=== PATIENT | male | born 1935 | race Caucasian/White ===

== ENCOUNTER 2017-04-21 18:20 | Emergency (ER) | payer MEDICARE, OTHER ==
[~2017-04-21] VITALS: Ht 167.6 cm; Wt 105.7 kg
[~2017-04-21 18:20] MED LIST: ADULT TUSS100 MG/5 M PO; AMIODARONE HCL400 MG PO; ANTIVERT25 MG PO; B-12500 MCG PO; BACTRIM DS TAB1 EACH PO; CEPHALEXIN500 MG PO; COUMADIN2 MG PO; DESONIDE15 GM TOP; DOCUSATE SODIU250 MG PO; DONEPEZIL HCL10 MG PO; DOXYCYCLINE HY100 MG PO; EUCERIN CREME120 GM TOP; FENOFIBRATE145 MG PO; FEOSOL325 MG PO; FLOMAX0.4 MG PO; FUROSEMIDE40 MG PO; HYDROCODON-ACE1 EA10 PO; KLOR-CON M2020 MEQ PO; LEVAQUIN750 MG PO; LEVOTHYROXINE25 MCG PO; LIPITOR10 MG PO; LISINOPRIL5 MG PO; MAG-OXIDE400 MG PO; METOLAZONE2.5 MG PO; METOPROLOL SUCC25 MG PO; METOPROLOL SUCC50 MG PO; NITROSTAT0.4 MG SL; NORCO 5-325 TA1 EACH PO; NYSTATIN-TRIAMC15 GM; NYSTATIN15 GM TOP; NYSTOP60 GM TOP; PROAIR HFA8.5 GM INH; PROVENTIL HFA6.7 GM INH; REFRESH OPTIVE15 ML OPTH; REFRESH TEARS15 ML OU; STOOL SOFTENER250 MG PO; SYMBICORT 16010.2 GM INH; TERBINAFINE15 GM TOP; TESSALON PERLE100 MG PO; TOPROL XL25 MG PO; TOPROL XL50 MG PO; TORSEMIDE20 MG PO; TRAZODONE HCL50 MG PO; [UNRECOGNIZED DRUG - CODE] TOP; [UNRECOGNIZED DRUG - OTHER] MISC
[2017-04-21] MEDS ORDERED: LEVAQUIN500 MG PO (21:48)
== END 2017-04-21 22:03 | disposition home or self-care (01) ==
LOC: ED 18:20
DX: L03.116 Cellulitis of left lower limb (principal); H91.90 Unspecified hearing loss, unspecified ear; I11.0 Hypertensive heart disease with heart failure; I50.9 Heart failure, unspecified; Z95.2 Presence of prosthetic heart valve; Z79.899 Other long term (current) drug therapy; Z79.01 Long term (current) use of anticoagulants
CPT/HCPCS: 80053; 81001; 83605; 85025; 85610; 87040; 99283

== ENCOUNTER 2017-04-25 10:27 | Emergency (ER) | payer MEDICARE, OTHER ==
[~2017-04-25] VITALS: Ht 167.6 cm; Wt 102.1 kg
[~2017-04-25 10:27] MED LIST changes: +LEVAQUIN500 MG PO
--- NOTE | 2017-04-25 18:37 | EKG ---
[facility] [address] [place] [address] Signed Sinus tachycardia Left axis deviation Nonspecific intraventricular block Cannot rule out Anterior infarct , age undetermined T wave abnormality, consider lateral ischemia Abnormal ECG When compared with ECG of 10-APR-2017 16:38, premature ventricular complexes are no longer present Vent. rate has increased BY 62 BPM Confirmed by ZEE WALTERS MD ([id number]) on 04/25/2017 6:36:53 PM Electronically Signed By: ZEE WALTERS MD 04/25/17 1837 PATIENT NAME: JACKLYN PATEL Electrocardiogram DATE OF : 31 PHYSICIAN: ZEE WALTERS MD REPORT #: [id number] REPORT IS CONFIDENTIAL AND NOT TO BE RELEASED WITHOUT AUTHORIZATION
--- NOTE | 2017-04-25 18:37 | EKG ---
[facility] [address] [facility] [place] [address] Signed Atrial fibrillation Nonspecific intraventricular block Cannot rule out Anterior infarct (cited on or before 25-APR-2017) T wave abnormality, consider lateral ischemia Abnormal ECG When compared with ECG of 25-APR-2017 10:42, (Unconfirmed) Atrial fibrillation has replaced Sinus rhythm Confirmed by ZEE WALTERS MD ([id number]) on 04/25/2017 6:37:16 PM Electronically Signed By: ZEE WALTERS MD 04/25/17 1837 PATIENT NAME: JACKLYN PATEL Electrocardiogram DATE OF : [birth year] PHYSICIAN: ZEE WALTERS MD REPORT #: [id number] REPORT IS CONFIDENTIAL AND NOT TO BE RELEASED WITHOUT AUTHORIZATION
== END 2017-04-25 14:30 | disposition home or self-care (01) ==
LOC: ED 10:27
DX: I48.91 Unspecified atrial fibrillation (principal); L03.90 Cellulitis, unspecified; E78.5 Hyperlipidemia, unspecified; I11.0 Hypertensive heart disease with heart failure; I50.9 Heart failure, unspecified; Z95.2 Presence of prosthetic heart valve; Z79.899 Other long term (current) drug therapy; Z79.01 Long term (current) use of anticoagulants
CPT/HCPCS: 71010; 80053; 84484; 85025; 85610; 93005; 93010; 99284

== ENCOUNTER 2018-02-11 14:06 | Emergency (ER) | payer MEDICARE, OTHER ==
[~2018-02-11] VITALS: Ht 167.6 cm; Wt 102.1 kg
--- OUTSIDE RECORDS SUMMARY | ~2018-02-11 | XMS | Clinical Summary ---
Demographics + + + | Address | [address] | | | [place] [address] | + + + | Home Phone | | + + + | Preferred Language | Unknown | + + + | Marital Status | | + + + | Sabianism Affiliation | Unknown | + + + [...] Phone | + + +---------+ + | EliCassandra | ECON | NA | | | | | NA, | | + + +---------+ + | Rl Patel | ECON | Unknown | | + + +---------+ + | Chris Patel | ECON | Unknown | | + + +---------+ + | Jacklyn Patel Jr | ECON | Unknown | | + + +---------+ + Care Team Providers + +------+ + | Care Bpm Analyst Name | Role | Phone | + [...] | | | + + +--------+---------+------+------+-------+ | atorvaSTATin | Take 10 mg by mouth | | | | | Activ | | (LIPITOR) 10 mg | nightly. | | | | | e | [...] + + +--------+---------+------+------+-------+ | warfarin | Take 4 mg by mouth. | | | | | Activ | | (COUMADIN) 4 MG | In the evening on | | | | | e | | tablet | odd days | | | | | | + [...] | | | + + +--------+---------+------+------+-------+ | potassium chloride | Take 10 mEq by mouth | | | | | Activ | | (KLOR-CON) 10 MEQ | Daily. | | | | | e | | ER tablet | | | [...] tablet by | 60 | 2 | 04/21 | | Activ | | 40 mg tablet | mouth 2 times daily. | tablet | | 05/09 | | e | | | | | | 17 | | | + + +--------+---------+------+------+-------+ | amiodarone | Take 1 tablet by | 30 | 1 | 08/0 | | Activ | | (PACERONE) 200 mg | mouth Daily. | tablet | | /20 | | e | | tablet | | | | 17 | | | + + +--------+---------+------+------+-------+ | metoprolol | Take 1 tablet by | 30 | 1 | 07/2 | | Activ | | succinate | mouth Daily. | tablet | | 05/09 | | e | | (TOPROL-XL) 25 mg 24 | | | | 17 | | | | hr tablet | [...] + + +--------+---------+------+------+-------+ | warfarin | Take 6 mg by [...] | + + +--------+---------+------+------+-------+ | bisacodyl | Take 5 mg by mouth | | | | | Activ | | (DULCOLAX) 5 mg EC | as needed for | | | | | e | | tablet | Constipation. | | | | | | + + +--------+---------+------+------+-------+ | bisacodyl | Place 10 mg rectally | | | | | Activ | | (DULCOLAX) 10 mg | as needed for | | | | | e | | suppository | Constipation. | | | | | | + + +--------+---------+------+------+-------+ Active Problems + + + | Problem | Noted Date | + + + | Pacemaker reprogramming/check | 05/14/2017 | + + + | Pacemaker Dual Chamber, MRI compatible, 05/14/17 [facility] Bird | 05/14/2017 | + + + + + | Overview: Formatting of this note may be different from the | | original. MODEL NAME MODEL# SERIAL# DATE IMPLANTED GENERATOR St | | Rupert Assurity MRI [id number] 05/14/[address] [facility] Tendril | | MRI [id number] 05/14/[address] Rupert Tendril MRI | | [id number] 05/14/17 Indication: Tachycardia-Bradycardia | | Syndrome. | [...] + + | Acute renal failure (ARF) ([facility]) | 04/01/2015 | + + + | Anemia | 04/01/2015 | + + + | H/O aortic valve replacement | | + + + + + | Overview: [facility] LORA goal is 2-3 | + + + +---+ | Essential hypertension | | + +---+ | Liver cirrhosis (HCC) | | + +---+ | Dementia | | + +---+ | Alcoholic cirrhosis (HCC) | | + +---+ + + | Overview: CT scan 2003 at [facility] | + + + +---+ | Coronary artery disease involving [place] coronary artery of | | | [place] heart without angina pectoris | | + +---+ + + | Overview: [facility] 11/14/2004 shows preserved left ventricular | | [...] + + | Overview: Severe on Echo 2013 | + + + +---+ | Chronic diastolic congestive heart failure (HCC) | | + +---+ + + | Overview: Echo 2014 EF 68, ascites, pulm HTN | + + Resolved Problems + + + + | Problem | Noted | Resolved | | | Date | Date | + + + + | Atrial fibrillation with RVR (HCC) | 03/19/20 | | | | 16 | 7 | + + + + | Acute on chronic diastolic (congestive) heart failure | 03/16/20 | | | | 16 | 7 | + + + + Immunizations + + + + | Name [...] | | + + +------+ + + +------+--------+ + | Relation | Name | Status | Comments | + +------+--------+ + | Father | | | | + +------+--------+ + Social History + +-------+ +--------+------+ | [...] + | Blood Pressure | 100/50 | 09/19/20171152 PST | + + + + | Pulse | 62 | 09/19/20171152 PST | + + + + | Temperature | 36.3 C (97.3 F) | 05/16/2017 1109 PDT | + + + + | Respiratory Rate | 11 | 09/19/20171152 PST | + + + + | Oxygen Saturation | 99% | 06/19/2017 1021 PDT | + + + + | Inhaled Oxygen | - | - | | Concentration | | | + + + + | Weight | 84.5 kg (186 lb 4.6 | 09/19/20171152 PST | | | oz) | | + + + + | Height | 167.6 cm (5' 6") | 09/19/20171152 PST | + + + + | Body Mass Index | 30.07 | 09/19/20171152 PST | + + + + Plan of Treatment +--------+---------+ + + + | Date | Type | Specialty | Care Team | Description | +--------+---------+ + + + | 03/19/ | Office | | Emely Gabriel, | | | 2017 | Visit | | AMANDA Quinter[address] [place] | | | | | | [place] | | | | | | [id number] | | | | | | | | +--------+---------+ + + + + + + + [...] + | Vaccine: Influenza | Completed | 07/20/2017 | | + + + + [...] | [facility] | | 06/20/ | [id number] | | [id number]: Qty: 1 | | Heart | MEDICAL - | | 2016 | 0M/52 | | on 05/14/2017 by Marge, | | | CHRISTOPHER | | | /[id number] | | MD [place] | | | | | | 8427 / | + +------+-------+ +--------+--------+--------+ | Lead Tendril Mri 46cm - | | N/A: | [facility] | | 07/20/ | [id number] | | [id number]: Qty: 1 | | Heart | MEDICAL - | | 2016 | 0M/46 | | on 05/14/2017 by Marge, | | | CHRISTOPHER | | | /[id number] | | MD [place] | | | | | | 3446 / | + +------+-------+ +--------+--------+--------+ | Pacer Assurity Mri Dr Rf - | | N/A: | [facility] | | 08/20/ | [id number] | | [id number]: Qty: 1 on | | Heart | MEDICAL - | | 2018 | | | 05/14/2017 by Marge, | | | CHRISTOPHER | | | /[id number] | | MD [place] | | | | | | 01 / | + +------+-------+ +--------+--------+--------+ Results Not on filefrom Last 3 Months Insurance + +--------+ +--------+ +---------+ | Payer | Benefi | Subscriber | Type | Phone | Address | | | t Plan | ID | | | | | | / | | | | | | | Group | | | | | + +--------+ +--------+ +---------+ | VETERANS ADMIN | VETERA | xxxxxxxxx | Indemn | | | | | NS | | ity | | | | | ADMIN | | | | | | | [place] | | | | | | | [place] | | | | | + +--------+ +--------+ +---------+ | MEDICARE | MEDICA | xxxxxxxxxx | Medica | [phone] | | | RE | | re | [phone] | | | | PART A | | | | | | | AND B | | | | | + +--------+ +--------+ +---------+ | MEDICAID [place] | MEDICA | xxxxxxxx | Medica | [phone] | | | [place] | | id | [phone] | | | | PLUS | | | | | + +--------+ [...] Self | [birth year] | Home: | [address] | | | al/Fam | | 1935 | [phone] | [address] | | | [place] | | | [phone] | [place] [address] | + +--------+ +--------+ + + | JACKLYN PATEL | Specia | Self | [birth year] | Home: | [address] | | | l | | 1935 | [phone] | [address] | | | [place] | | | [address] | [place] [address] | | | es | | | | | + +--------+ +--------+ + +
--- OUTSIDE RECORDS SUMMARY | ~2018-02-11 | XMS | Clinical Summary ---
Demographics + + + | Address | [address] | | | [place] [address] | + + + | Home Phone | | + + + | Preferred Language | Unknown | + + + | Marital Status | | + + + | Worship Affiliation | [phone] | + + + | Race | Unknown | + + + | Ethnic Group | Unknown | + + + Author + + + | Author | [facility] | + + + | Organization | [facility] | + + + | Address [...] + +---------+ + | Bhavna Patel | [place] | Unknown | | + + +---------+ + Care Team Providers + +------+ + | Care Manager Asset Name | Role | Phone | + +------+ + | Jerson Martin MD | PP | | + +------+ + Allergies No Known Allergies Current Medications + + +--------+---------+------+------+-------+ | Prescription [...] | | | + + +--------+---------+------+------+-------+ | cyanocobalamin | Take 1,000 mcg by | | | | | Activ | | (VITAMIN B-12) 1000 | mouth daily. | | | | | e | | MCG tablet | | | | | | | + + +--------+---------+------+------+-------+ | docusate sodium | Take 250 mg by mouth | | | | | Activ | | (COLACE) 250 MG | daily. | | | | | e | | capsule | | | | | | | + + +--------+---------+------+------+-------+ | desonide (DESOWEN) | Apply topically 2 | | | | | Activ | | 0.05 % cream | (two) times daily. | | | | | e | + + +--------+---------+------+------+-------+ | donepezil | Take 5 mg by mouth | | | | | Activ | | (ARICEPT) 10 MG | nightly. | | | | | e | | tablet | | | | | | | + + +--------+---------+------+------+-------+ | fenofibrate | Take 145 mg by mouth | | | | | Activ | | (TRICOR) 145 MG | daily. | | | | | e | | tablet | | | | | | | + + +--------+---------+------+------+-------+ | furosemide (LASIX) | Take 40 mg by mouth | | | | | Activ | | 40 MG tablet | 2 (two) times daily. | | | | | e | + + +--------+---------+------+------+-------+ | levothyroxine | [...] + + +--------+---------+------+------+-------+ | terbinafine | Apply topically 2 | | | | | Activ | | (LAMISIL) 1 % cream | (two) times daily. | | | | | e | + + +--------+---------+------+------+-------+ | metolazone | Take 1 tablet by | 90 | 0 | 07/1 | | Activ | | (ZAROXOLYN) 2.5 [...] | | | + + +--------+---------+------+------+-------+ | Magnesium Oxide | Take 420 mg by mouth | | | | | Activ | | 420 MG TABS | every evening. | | | | | e | + + +--------+---------+------+------+-------+ | ferrous sulfate, [...] + + +--------+---------+------+------+-------+ | warfarin | Take 2.5 mg by mouth | | | | | Activ | | (COUMADIN) 2 MG | daily. Take as | | | | | e | | tablet | directed For INR | | | | | | | | 2-3 | | | | | | + + +--------+---------+------+------+-------+ | metoprolol | Take 25 mg by mouth | | | | | Activ | | (TOPROL-XL) 25 MG 24 | daily. | | | | | e | | hr tablet | | | [...] | Activ | | (MYCOSTATIN) cream | (three) times daily | | | | | e | | | as needed for Dry | | | | | | | | Skin. | | | | | | + + +--------+---------+------+------+-------+ | lisinopril | Take 10 mg by mouth | | | | | Activ | | (ZESTRIL) 10 MG | daily. | | | | | e | | tablet | | | | | | | + + +--------+---------+------+------+-------+ | Emollient (EUCERIN | Apply topically. | | | | | Activ | | CALMING DAILY | | | | | | e | | MOIST) CREA | | | | | | | [...] artery disease involving coronary bypass graft of [place] | 09/03/2016 | | heart with angina [...] endocarditis prophylaxis reenforced.Last Echo, | | 03/13/2016 ([facility]): AVR (peak/mean gradients 7/4mmHg), no | | [...] therapy | | (furosemide, metolazone).CXR, 09/03/2016 ([facility]): Aortic | | valve prosthesis, mild pulmonary vascular plethora, moderate size | | loculated left posterior pleural effusion, pericardial | | calcification. | + + Family History + +------+ + + | Relation | Name | Status | Comments | + +------+ + + | Father | | | of MVA blood clot | | | | (Age | | | | | 71) | | + +------+ + + | Mother | | | unknown satus | | | | (Age | | | | | 95) | | + +------+ + + Social [...] | No | 0 | 0.0 | | | | Standard | | | [...] + + + | Blood Pressure | 108/56 | 04/08/2017 10:34 AM PDT | + + + + | Pulse | 56 | 04/08/2017 10:34 AM PDT | + + + + | Temperature | - | - | + + + + | Respiratory Rate | 17 | 10/03/2016 12:37 PM PST | + + + + | Oxygen Saturation | 96% | 04/08/2017 10:34 AM PDT | + + + + | Inhaled Oxygen | - | - | | Concentration | | | + + + + | Weight | 103.1 kg (227 lb 6.4 | 04/08/2017 10:34 AM PDT | | | oz) | | + + + + | Height | 168.9 cm (5' 6.5") | 04/08/2017 10:34 AM PDT | + + + + | Body Mass Index | 36.15 | 04/08/2017 10:34 AM PDT | + + + + Plan of Treatment +--------+---------+ + + + | Date | Type | Specialty | Care Team | Description | +--------+---------+ + + + | 03/11/ | Office | | Benjamín Garces, | | | 2017 | Visit | | MD [address] | | | | | | [place], | | | | | | [place] [address] | | | | | | [phone] | | | | | | | [...] | | | | (Season Ended) | 8 | | | + + [...] + + | MEDICARE | MEDICA | xxxxxxxxxx | | | [address] | | | RE | | | | [place] [address] | | | IP-OP | | | | | + +--------+ +------+ + + | [place] | [place] | | [phone] | FEE SERVICES [address] | | ADMINISTRATION | CHOICE | | | [phone] | [address] | | | | | | [address] [place] | | | | | | | [phone] | + +--------+ +------+ + + | MEDICAID | [place] | | | | [address] | | | | | | | [place] | | | FAMILY | | | | [address] | | | CARE | | | | | + +--------+ +------+ + + | MEDICAID | MEDICA | xxxxxxxx | | | [address] | | | ID | | | | [place], [place] | | | [place] | | | | [address] | + +--------+ +------+ + + + [...] | [birth year] | Home: | [address] | | | al/Fam | | [address] | [phone] | [address] | | | [place] | | | [address] | [place] [address] | + +--------+ +--------+ + + | JACKLYN PATEL | Vetera | Self | [birth year] | Home: | [address] | | | ns | | 1935 | [phone] | [address] | | | Admini | | | [address] | [place] [address] | | | strati | | | | | | | on | | | | | + +--------+ +--------+ + +
--- OUTSIDE RECORDS SUMMARY | ~2018-02-11 | XMS | Clinical Summary ---
Demographics + + + | Address | [address] | | | [place] [address] | + + + | Home Phone | | + + + | Preferred Language | Unknown | + + + | Marital Status | | + + + | Uatsdin Affiliation | Unknown | + + + [...] Providers + +------+ + | Care Electric Dolly Operator Name | Role | Phone | [...] St | | Rupert Assurity MRI [id number] 05/14/[address] [facility] Tendril | | MRI [id number] 05/14/[address] Rupert Tendril MRI | | [id number] 05/14/17 Indication: Tachycardia-Bradycardia | | Syndrome. | [...] + + | Acute renal failure (ARF) (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 CABG x1 (ODN to LAD)/AVR (#23 | | SJM),prosthetic valve [...] [place] | | | | | | [id number] | | | | | | | [...] | [facility] | | 06/20/ | [id number] | | [id number]: Qty: 1 | | Heart | MEDICAL - | | 2016 | 0M/52 | | on 05/14/2017 by Marge, | | | CHRISTOPHER | | | /[id number] | | MD [place] | | | | | | 8427 / | + +------+-------+ +--------+--------+--------+ | Lead Tendril Mri 46cm - | | N/A: | [facility] | | 07/20/ | [id number] | | [id number]: Qty: 1 | | Heart | MEDICAL - | | 2016 | 0M/46 | | on 05/14/2017 by Marge, | | | CHRISTOPHER | | | /CAY03 | | MD [place] | | | | | | 3446 / | + +------+-------+ +--------+--------+--------+ | Pacer Assurity Mri Dr Rf - | | N/A: | [facility] | | 08/20/ | [id number] | | [id number]: Qty: 1 on | | Heart | MEDICAL - | | 2018 | | | 05/14/2017 by Marge, | | | CHRISTOPHER | | | /[id number] | | MD [place] | | | [...] | | | [place] | | | [address] | [place] [address] | + +--------+ +--------+ + + | JACKLYN PATEL | Specia | Self | [birth year] | Home: | [address] | | | l | | 1935 | [phone] | [address] | | | [place] | | | [address] | [place] [address] | | | es | | | | | + +--------+ +--------+ + +
--- OUTSIDE RECORDS SUMMARY | ~2018-02-11 | XMS | Clinical Summary ---
Demographics + + + | Address | [address] | | | [place] [address] | + + + | Home Phone | | + + + | Preferred Language | Unknown | + + + | Marital Status | | + + + | Congregational Affiliation | 1061 | + + + | Race | Unknown | + + + | Ethnic Group | Unknown | + + + Author + + + | Author | [employer] | + + + | Organization | [facility] | + + + | Address [...] Team Providers + +------+ + | Care Trace Evidence Technician Name | Role | Phone | [...] artery disease involving coronary bypass graft of [place] | 09/03/2016 | | heart with angina [...] endocarditis prophylaxis reenforced.Last Echo, | | 03/13/2016 ([facility]): AVR (peak/mean gradients 7/4mmHg), no | | [...] | | | | | | [place] [address] | | | | | | [phone] | | | | | | | [...] RE | | | | [place] [address] | | | IP-OP | | | | | + +--------+ +------+ + + | [place] | [place] | xxxxxxxxxx | | [phone] | FEE SERVICES [address] | | ADMINISTRATION | CHOICE | | | [phone] | [address] | | | | | | [address] [place] | | | | | | | [phone] | + +--------+ +------+ + + | MEDICAID | [place] | | | | [address] | | | | | | | [place] | | | FAMILY | | | | [phone] | | | CARE | | | | | + +--------+ +------+ + + | MEDICAID | MEDICA | xxxxxxxx | | | [address] | | | ID | | | | [place], [place] | | | [place] | | | | [phone] | + +--------+ +------+ + + + [...] | | al/Fam | | 3 | [phone] | [address] | | | [place] | | | [address] | [place] [address] | + +--------+ +--------+ + + | JACKLYN PATEL | Vetera | Self | [birth year] | Home: | [address] | | | ns | | [phone] | [phone] | [address] | | | Admini | | | [address] | [place] [address] | | | strati | | | | | | | on | | | | | + +--------+ +--------+ + +
[2018-02-11] MEDS ORDERED: ZOFRAN ODT4 MG PO (17:31)
--- NOTE | 2018-02-12 07:35 | EKG ---
[facility] [address] [facility] [address] [place] [address] Signed Atrial-paced rhythm Left bundle branch block Abnormal ECG When compared with ECG of 25-APR-2017 13:01, Electronic atrial pacemaker has replaced Atrial fibrillation Vent. rate has decreased BY 31 BPM QRS duration has increased Confirmed by ZEE WALTERS MD ([id number]) on 02/12/2018 7:35:40 AM Electronically Signed By: ZEE WALTERS MD 02/12/18 0735 PATIENT NAME: JACKLYN PATEL Electrocardiogram DATE OF : [birth year] PHYSICIAN: ZEE WALTERS MD REPORT #: [id number] REPORT IS CONFIDENTIAL AND NOT TO BE RELEASED WITHOUT AUTHORIZATION
== END 2018-02-11 18:01 | disposition home or self-care (01) ==
LOC: ED 14:06
DX: R11.2 Nausea with vomiting, unspecified (principal); E87.5 Hyperkalemia; E78.5 Hyperlipidemia, unspecified; I10 Essential (primary) hypertension; Z79.899 Other long term (current) drug therapy; Z79.01 Long term (current) use of anticoagulants
CPT/HCPCS: 80053; 81001; 82150; 83690; 84132; 85025; 85610; 85730; 93005; 93010; 99284; J7030

== ENCOUNTER 2018-07-09 12:50 | Observation (INO) | payer MEDICARE, OTHER ==
[~2018-07-09] VITALS: Ht 167.6 cm; Wt 90.9 kg
--- OUTSIDE RECORDS SUMMARY | ~2018-07-09 | XMS | Encounter Summary ---
Demographics + + + | Address | [address] | | | [place] [address] | + + + | Home Phone | | + + + | Preferred Language | Unknown | + + + | Marital Status | | + + + | Jew Affiliation | 1061 | + + + | Race | Unknown | + + + | Ethnic Group | Unknown | + + + Author + + + | Author | [facility] | + + + | Organization | [facility] | + + + | Address | Unknown | + + + | Phone | Unavailable | + + + Support + + +---------+ + | Name | Relationship | Address | Phone | + + +---------+ + | Cassandra Guthrie | ECON | Unknown | | + + +---------+ + | Chris Siddiqi | ECON | Unknown | | + + +---------+ + | Bhavna Siddiqi | ECON | Unknown | | + + +---------+ + Care Team Providers + +------+ + | Care Floatlight Loading Supervisor Name | Role | Phone | + +------+ + | Jerson Martin MD | PCP | | + +------+ + Reason for Visit + + + | Reason | Comments | + + + | Follow-up | | + + + Encounter Details +--------+---------+ + + + | Date | Type | Department | Care Team | Description | +--------+---------+ + + + | 06/17/ | Office | [facility] | Benjamín Garces, | Cancelbear (Provider) | | 2018 | Visit | Cardiology [place] | [address] | | | | | [address] | [place], | | | | | [place] [address] | [place] [address] | | | | | [place] [address] | [phone] | | | | | [phone] | | | +--------+---------+ + + + Social History + +-------+ [...] + +---------+ + | Alcohol Use | Drinks/We | oz/Week | Comments | | | ek | | | + + +---------+ + | No | 0 | 0.0 | h/o alcohol abuse, quit 1968 | | | Standard | | | | | drinks or | | | | | | | | | | equivalen | | | | | t | | | + + +---------+ + + + + | Sex Assigned at | Date Recorded | | | | + + + | Not on file | | + + + as of this encounter Last Filed Vital Signs + + + + | Vital Sign | Reading | Time Taken | + + + + | Blood Pressure | 122/58 | 06/17/2018 11:58 AM PDT | + + + + | Pulse | 68 | 06/17/2018 11:58 AM PDT | + + + + | Temperature | - | - | + + + + | Respiratory Rate | - | - | + + + + | Oxygen Saturation | 96% | 06/17/2018 11:58 AM PDT | + + + + | Inhaled Oxygen | - | - | | Concentration | | | + + + + | Weight | 90.3 kg (199 lb) | 06/17/2018 11:58 AM PDT | + + + + | Height | 168.9 cm (5' 6.5") | 06/17/2018 11:58 AM PDT | + + + + | Body Mass Index | 31.64 | 06/17/2018 11:58 AM PDT | + + + + in this encounter Plan of Treatment Not on fileas of this encounter Visit Diagnoses Not on filein this encounter
--- OUTSIDE RECORDS SUMMARY | ~2018-07-09 | XMS | Encounter Summary ---
Demographics + + + | Address | [address] | | | [place] [address] | + + + | Home Phone | | + + + | Preferred Language | Unknown | + + + | Marital Status | | + + + | Voodoo Affiliation | 1061 | + + + | Race | Unknown | + + + | Ethnic Group | Unknown | + + + Author + + + | Author | [facility] | + + + | Organization | [facility] | + + + | Address [...] Team Providers + +------+ + | Care Human Resources File Clerk Name | Role | Phone | + +------+ + | Jerson Martin MD | PCP | | + +------+ + Reason for Visit +--------+ + | Reason | Comments | +--------+ + | Other | [facility] | +--------+ + Encounter Details +--------+ + + + + | Date | Type | Department | Care Team | Description | +--------+ + + + + | 04/16/ | Documentati | [facility] | Velia Gusman, | Other ([facility] | | 2018 | on Only | Evette Leach | JAYNE | Wilma) | | | | [address] | | | | | | [place] | | | | | | [address] | | | | | | [phone] | | | +--------+ + + + [...] + + + as of this encounter Plan of Treatment Not on fileas of this encounter Procedures + +--------+ + + + | Procedure Name | Priori | Date/Time | Associated Diagnosis | Comments | | | ty | | | | + +--------+ + + + | CBC W/AUTO DIFF | Routin | 04/15/2018 | | Results for this | | (REFLEX TO MANUAL) | e | 7:22 AM | | procedure are in the | | | | PDT | | results section. | + +--------+ + + + | TSH | Routin | 04/15/2018 | | Results for this | | | e | 7:22 AM | | procedure are in the | | | | PDT | | results section. | + +--------+ + + + | MAGNESIUM | Routin | 04/15/2018 | | Results for this | | | e | 7:22 AM | | procedure are in the | | | | PDT | | results section. | + +--------+ + + + | COMPREHENSIVE | Routin | 04/15/2018 | | Results for this | | METABOLIC PANEL | e | 7:22 AM | | procedure are in the | | | | PDT | | results section. | + +--------+ + + + in this encounter Results CBC W/Auto Diff (Reflex to Manual) (04/15/2018 7:22 AM) + + + + + | Component | Value | Ref Range | Performed At | + + + + + | WBC | 6.9 | 4.5 - 11.0 10^3/mL | [facility] | | | | | [facility] | + + + + + | RBC | 3.31 (A) | 4.3 - 5.7 10^6/ L | [facility] | | | | | [facility] | + + + + + | HGB | 10.3 (A) | 13.5 - 18.0 g/dL | [facility] | | | | | [facility] | + + + + + | HCT | 31.7 (A) | 41 - 50 % | [facility] | | | | | [facility] | + + + + + | MCV | 95.5 | 81 - 99 fL | [facility] | | | | | [facility] | + + + + + | MCH | 31 | 27 - 33 pg | [facility] | | | | | [facility] | + + + + + | MCHC | 32 | 30 - 36 g/dL | [facility] | | | | | [facility] | + + + + + | PLT | 176 | 140 - 440 K/ L | [facility] | | | | | [facility] | + + + + + | RDW SD | 14.9 | 10.5 - 15.0 % | [facility] | | | | | [facility] | + + + + + | MPV | | fL | [facility] | | | | | [facility] | + + + + + | DIFF TYPE | | | [facility] | | | | | [facility] | + + + + + | NEUTROPHILS | 37.7 (A) | 39 - 80 % | [facility] | | | | | [facility] | + + + + + | LYMPHOCYTES | 51.2 (A) | 24 - 44 % | [facility] | | | | | [facility] | + + + + + | MONOCYTES | 8.2 | 0 - 12 % | [facility] | | | | | [facility] | + + + + + | EOSINOPHILS | 2.4 | 0 - 6 % | [facility] | | | | | [facility] | + + + + + | BASOPHILS | 0.5 | 0 - 2 % | [facility] | | | | | [facility] | + + + + + | NEUTROPHILS ABS | | / L | [facility] | | | | | [facility] | + + + + + | LYMPHOCYTES ABS | | / L | [facility] | | | | | [facility] | + + + + + | MONOCYTES ABS | | / L | [facility] | | | | | [facility] | + + + + + | EOSINOPHILS ABS | | / L | [facility] | | | | | [facility] | + + + + + | BASOPHILS ABS | | / L | [facility] | | | | | [facility] | + + + + + + + | Specimen | + + | Blood | + + + + + + + | Performing | Address | City/State/Zipcode | Phone Number | | Organization | | | | + + + + + | [facility] | [address] | [place] [address] | | | LABORATORY | 13 | | | + + + + + TSH (04/15/2018 7:22 AM) + + + + + | Component | Value | Ref Range | Performed At | + + + + + | TSH | 15.48 (A) | 0.270 - 4.20 uIU/mL | [facility] | | | | | [facility] | + + + + + + + | Specimen | + + | Blood | + + + + + + + | Performing | Address | City/State/Zipcode | Phone Number | | Organization | | | | + + + + + | [facility] | [address] | [place] [address] | | | LABORATORY | 13 | | | + + + + + Magnesium (04/15/2018 7:22 AM) + +-------+ + + | Component | Value | Ref Range | Performed At | + +-------+ + + | MAGNESIUM | 2.4 | 1.7 - 2.5 mg/dL | [facility] | | | | | [facility] | + +-------+ + + + + | Specimen | + + | Blood | + + + + + + + | Performing | Address | City/State/Zipcode | Phone Number | | Organization | | | | + + + + + | [facility] | [address] | [place] [address] | | | LABORATORY | 13 | | | + + + + + Comprehensive metabolic panel (04/15/2018 7:22 AM) + + + + + | Component | Value | Ref Range | Performed At | + + + + + | GLUCOSE | 86 | 70 - 100 mg/dL | [facility] | | | | | [facility] | + + + + + | BUN | 29 (A) | 6 - 23 mg/dL | [facility] | | | | | [facility] | + + + + + | CREATININE | 1.32 (A) | 0.70 - 1.11 mg/dL | [facility] | | | | | [facility] | + + + + + | BUN/CREAT | 22.0 | 6.0 - 28.6 | [facility] | | | | | [facility] | + + + + + | CALCIUM | 8.9 | 8.4 - 10.2 mg/dL | [facility] | | | | | [facility] | + + + + + | TOTAL PROTEIN | 6.5 | 6.0 - 8.3 g/dL | [facility] | | | | | [facility] | + + + + + | Albumin | 3.7 | 3.5 - 5.0 | [facility] | | | | | [facility] | + + + + + | GLOBULIN | 2.8 | 1.8 - 3.5 | [facility] | | | | | [facility] | + + + + + | A/G | 1.3 | 1.1 - 2.4 | [facility] | | | | | [facility] | + + + + + | TBIL | 0.5 | 0.0 - 1.2 mg/dL | [facility] | | | | | [facility] | + + + + + | ALK PHOS | 94 | 31 - 120 | [facility] | | | | | [facility] | + + + + + | ALT | 16 | 7 - 52 U/L | [facility] | | | | | [facility] | + + + + + | AST | 32 | 13 - 39 U/L | [facility] | | | | | [facility] | + + + + + | SODIUM | 141 | 132 - 143 mmol/L | [facility] | | | | | [facility] | + + + + + | POTASSIUM | 5.4 (A) | 3.6 - 5.1 mmol/L | [facility] | | | | | [facility] | + + + + + | CHLORIDE | 111 | 95 - 112 mmol/L | [facility] | | | | | [facility] | + + + + + | CO2 | 21 | 19 - 31 mmol/L | [facility] | | | | | [facility] | + + + + + | ANION GAP AGAP | 14.4 | 7 - 21 mmol/L | [facility] | | | | | [facility] | + + + + + | EGFR | 52 (A) | 60 mg/dL | [facility] | | | | | LAB[facility] | + + + + + + + | Specimen | + + | Blood | + + + + + + + | Performing | Address | City/State/Zipcode | Phone Number | | Organization | | | | + + + + + | [facility] | [address] | [place] [address] | | | LABORATORY | 13 | | | + + + + + in this encounter Visit Diagnoses Not on filein this encounter"
--- OUTSIDE RECORDS SUMMARY | ~2018-07-09 | XMS | Encounter Summary ---
Demographics + + + | Address | [address] | | | [place] [address] | + + + | Home Phone | | + + + | Preferred Language | Unknown | + + + | Marital Status | | + + + | Adventist Affiliation | Unknown | + + + | Race | Unknown | + + + | Ethnic Group | Unknown | + + + Author + + + | Author | [facility] | | | and [place] | + + + | Organization | [facility] | | | and [...] Team Providers + +------+ + | Care Probate Clerk Name | Role | Phone | + +------+ + | Antonio Paulino MD | PCP | | + +------+ + Encounter Details +--------+ + + + + | Date | Type | Department | Care Team | Description | +--------+ + + + + | 06/04/ | Hospital | [facility] | Emely Gabriel, | Coronary artery | | 2018 | Encounter | MED CTR XRAY [address] | INFORMATION RESOURCES DIRECTOR [address] | disease involving | | | | [place] | [place] | [place] coronary | | | | [place] [address] | [address] | artery of [place] | | | | [phone] | | heart without angina | | | | | | pectoris; | | | | | | 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); | | | | | | Essential | | | | | | hypertension; | | | | | | Chronic diastolic | | | | | | congestive heart | | | | | | failure (HCC); | | | | | | Persistent atrial | | | | | | fibrillation ([facility]); | | | | | | Pacemaker | | | | | | reprogramming/check; | | | | | | Pacemaker Dual | | | | | | Chamber, MRI | | | | | | compatible, 05/14/17 | | | | | | [facility]; | | | | | | predatory 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 | Disp. | Refills | Start | End Date | | | | | | Date | | + + +--------+---------+ + + | albuterol 90 | Inhale 2 puffs into | | | | | | mcg/puff inhaler | the lungs 3 times | | | | | | | daily as needed for | | | | | | | Wheezing. | | | | | + + +--------+---------+ + + | amiodarone | Take 1 tablet by | 30 | 1 | 05/21/20 | | | (PACERONE) 200 mg | mouth Daily. | tablet | | 17 | | | tablet | | | | | | + + +--------+---------+ + + | artificial tears | Place 1 drop into | | | | | | (REFRESH PLUS) 0.5% | both eyes 4 times | | | | | | SOLN | daily as needed (for | | | | | | | dry eyes). | | | | | + + +--------+---------+ + + | atorvaSTATin | Take 10 mg by mouth | | | | | | (LIPITOR) 10 mg | nightly. | | | | | | tablet | | | | | | + + +--------+---------+ + + | benzonatate | Take 100 mg by mouth | | | | | | (TESSALON) 100 mg | Twice daily as | | | | | | capsule | needed for Cough. | | | | | + + +--------+---------+ + + | bisacodyl | Place 10 mg rectally | | | | | | (DULCOLAX) 10 mg | as needed for | | | | | | suppository | Constipation. | | | | | + + +--------+---------+ + + | bisacodyl | Take 5 mg by mouth | | | | | | (DULCOLAX) 5 mg EC | as needed for | | | | | | tablet | Constipation. | | | | | + + +--------+---------+ + + | | Inhale 2 puffs into | | | | | | budesonide-formotero | the lungs 2 times | | | | | | l (SYMBICORT) | daily. | | | | | | 160-4.5 mcg/puff | | | | | | | inhaler | | | | | | + + +--------+---------+ + + | desonide (DESOWEN) | Apply 1 Units | | | | | | 0.05% cream | topically. | | | | | + + +--------+---------+ + + | donepezil | Take 5 mg by mouth. | | | | | | (ARICEPT) 10 MG | | | | | | | tablet | | | | | | + + +--------+---------+ + + | doxycycline | Take 100 mg by mouth | | | | | | (VIBRAMYCIN) 100 mg | 2 times daily. | | | | | | capsule | | | | | | + + +--------+---------+ + + | fenofibrate | Take 145 mg by mouth | | | | | | (TRICOR) 145 mg | Daily. | | | | | | tablet | | | | | | + + +--------+---------+ + + | ferrous sulfate | Take 325 mg by mouth | | | | | | 325 mg tablet | daily (with | | | | | | | breakfast). Patient | | | | | | | takes three times | | | | | | | weekly on Sat, | | | | | | | Fri | | | | | + + +--------+---------+ + + | furosemide (LASIX) | Take 1 tablet by | 60 | 2 | 05/16/20 | | | 40 mg tablet | mouth 2 times daily. | tablet | | 17 | | + + +--------+---------+ + + | | Take 5 mLs by mouth | | | | | | guaiFENesin-codeine | every 6 hours as | | | | | | (ROBITUSSIN AC) | needed for Cough. | | | | | | 100-10 mg/5 mL | | | | | | | liquid | | | | | | + + +--------+---------+ + + | | Take 1 tablet by | | | | | | HYDROcodone-acetamin | mouth 3 times daily | | | | | | ophen (NORCO) 5-325 | as needed for Pain. | | | | | | mg per tablet | | | | | | + + +--------+---------+ + + | levothyroxine | Take 25 mcg by mouth | | | | | | (SYNTHROID, | every morning | | | | | | LEVOTHROID) 25 mcg | (before breakfast). | | | | | | tablet | | | | | | + + +--------+---------+ + + | lisinopril | Take 10 mg by mouth | | | | | | (PRINIVIL, ZESTRIL) | Daily. | | | | | | 10 mg tablet | | | | | | + + +--------+---------+ + + | magnesium oxide | Take 400 mg by mouth | | | | | | (MAG-OX) 400 mg | Daily. | | | | | | tablet | | | | | | + + +--------+---------+ + + | metoprolol | Take 1 tablet by | 30 | 1 | 05/16/20 | | | succinate | mouth Daily. | tablet | | 17 | | | (TOPROL-XL) 25 mg 24 | | | | | | | hr tablet | | | | | | + + +--------+---------+ + + | nitroglycerin | Place 1 tablet under | | | | | | (NITROSTAT) 0.4 mg | the tongue every 5 | | | | | | SL tablet | minutes as [...] | | | | | + + +--------+---------+ + + | nystatin | Apply topically 3 | | | | | | (MYCOSTATIN) cream | times daily as | | | | | | | needed (for fungal | | | | | | | infection). | | | | | + + +--------+---------+ + + | ondansetron | Take 4 mg by mouth | | | | | | (ZOFRAN ODT) 4 mg | every 4 hours as | | | | | | disintegrating | needed for Nausea. | | | | | | tablet | | | | | | + + +--------+---------+ + + | potassium chloride | Take 10 mEq by mouth | | | | | | (KLOR-CON) 10 MEQ | Daily. | | | | | | ER tablet | | | | | | + + +--------+---------+ + + | skin emollient | Apply topically. | | | | | | (EUCERIN CALMING | | | | | | | DAILY MOIST) cream | | | | | | + + +--------+---------+ + + | terbinafine | Apply 1 Units | | | | | | (LAMISIL) 1% cream | topically. | | | | | + + +--------+---------+ + + | traZODone | Take 50 mg by mouth | | | | | | (DESYREL) 50 mg | nightly as needed | | | | | | tablet | for Sleep. | | | | | + + +--------+---------+ + + | warfarin | Take 4 mg by mouth. | | | | | | (COUMADIN) 4 MG | In the evening on | | | | | | tablet | odd days | | | | | + + +--------+---------+ + + | warfarin | Take 6 mg by mouth. | | | | | | (COUMADIN) 6 MG | In the evening on | | | | | | tablet | even days Managed by | | | | | | | the V.A | | | | | + + +--------+---------+ + + as of this encounter Plan of Treatment +--------+---------+ + + + | Date | Type | Specialty | Care Team | Description | +--------+---------+ + + + | 07/31/ | Office | Cardiology | ThoalexandreCruzito flynn, | | | 2017 | Visit | | MD [facility] [place] | | | | | | [address] | | | | | | [place] [address] | | | | | | [phone] | | | | | | | | +--------+---------+ + + + | 06/04/ | Office | Cardiology | Emely Gabriel, | | | 2018 | Visit | | [place] | | | | | | [place] | | | | | | [id number] | | | | | | | | +--------+---------+ + + + as of this encounter Procedures + +--------+ + + + | Procedure Name | Priori | Date/Time | Associated Diagnosis | Comments | | | ty | | | | + +--------+ + + + | XR CHEST PA AND | Routin | 06/04/2018 | Coronary artery | Results for this | | LATERAL | e | 0959 PDT | disease involving | procedure are in the | | | | | [place] coronary | results section. | | | | | artery of [place] | | | | | | heart [...] Bird | | | | | | [facility] current | | | | | | use of amiodarone | | + +--------+ + + + in this encounter Results XR Chest PA and Lateral (06/04/2018 0959) + + + | Narrative | Performed At | + + + | CLINICAL INFORMATION: amiodarone use. COMPARISON: 05/14/2017. | [facility] | | FINDINGS: Frontal and lateral views of the chest. Left chest | | | dual-lead cardiac device. Median sternotomy/valvuloplasty changes. | | | Lungs: Persistent opacities are noted at the left lung base with | | | possible small left pleural effusion. No pneumothorax. Coarse, | | | thickened appearance of the interstitial lung markings with mild | | | subsegmental atelectasis/scarring at the right lung base. | | | Heart/mediastinum: Cardiac silhouette is of normal size. Prominent | | | aortic arch calcifications. No tracheal deviation. Bones: No | | | acute osseous abnormality appreciated. Mild dextrocurvature of the | | | thoracic spine is noted. IMPRESSION - Persistent left basilar | | | opacities, likely atelectasis/scarring. Small left pleural | | | effusion likely. Thickened, coarse appearance of the interstitial | | | lung markings, may be seen with pulmonary edema Dictated and | | | Signed by: Jadon White MD Electronically signed: 06/04/2018 | | | 11:06 AM | | + + + + + | Procedure Note | + + | [place], Rad Results In - 06/04/2018 1109 PDT CLINICAL INFORMATION: amiodarone use. | | | | COMPARISON: 05/14/2017. | | | | FINDINGS: | | Frontal and lateral views of the chest. | | | | Left chest dual-lead cardiac device. | | Median sternotomy/valvuloplasty changes. | | | | Lungs: Persistent opacities are noted at the left lung base with possible small | | left pleural effusion. No pneumothorax. Coarse, thickened appearance of the | | interstitial lung markings with mild subsegmental atelectasis/scarring at the | | right lung base. | | | | Heart/mediastinum: Cardiac silhouette is of normal size. Prominent aortic arch | | calcifications. No tracheal deviation. | | | | Bones: No acute osseous abnormality appreciated. Mild dextrocurvature of the | | thoracic spine is noted. | | | | IMPRESSION - | | Persistent left basilar opacities, likely atelectasis/scarring. | | | | Small left pleural effusion likely. 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
--- OUTSIDE RECORDS SUMMARY | ~2018-07-09 | XMS | Encounter Summary ---
Demographics + + + | [address] | [address] | | | [place] [address] | + + + | Home Phone | | + + + | Preferred Language | Unknown | + + + | Marital Status | | + + + | Restorationist Affiliation | Unknown | + + + [...] Team Providers + +------+ + | Care Decontamination Worker Name | Role | Phone | + +------+ + | Antonio Paulino MD | PCP | | + +------+ + Encounter Details +--------+ + + + + | Date | Type | Department | Care Team | Description | +--------+ + + + + | 06/04/ | Hospital | [facility] | Emely Gabriel, | Coronary artery | | 2018 | Encounter | MED CTR XRAY [address] | CUT TOBACCO BULKER [address] | disease involving | | | | [place] | [place] | [place] coronary | | | | [place] [address] | [address] | artery of [place] | | | | [phone] | | heart without angina | | [...] | | | | | | fibrillation ([facility]); | | | | | | Pacemaker | | | | | | reprogramming/check; | | | | | | Pacemaker Dual | | | | | | Chamber, MRI | | | | | | compatible, 05/14/17 | | | | | | [facility]; | | | | | | 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
--- OUTSIDE RECORDS SUMMARY | ~2018-07-09 | XMS | Encounter Summary ---
Demographics + + + | Address | [address] | | | [place] [address] | + + + | Home Phone | | + + + | Preferred Language | Unknown | + + + | Marital Status | | + + + | Evangelical Affiliation | Unknown | + + + [...] Team Providers + +------+ + | Care Fiscal Manager Name | Role | Phone | [...] (In-office) | | + + + | Coronary Artery | | | Disease | | + + + | Aortic Stenosis | | + + + Encounter Details +--------+---------+ + + + | Date | Type | Department | Care Team | Description | +--------+---------+ + + + | 06/04/ | Office | [facility] [place] | Emely Gabriel, | Tachycardia-bradycar | | 2018 | Visit | CARDIOLOGY [address] | GROUND WOOD SUPERVISOR [address] | pablo syndrome (HCC) | | | | [address] [place], | [place], [place] | (Primary Dx); | | | | [place] [address] | [address] | Coronary artery | | | | [phone] | | disease involving | | | | | | assinibo[place] and gros [place] tribes coronary | | | | | | artery of assinibo[place] and g[place] vent[place] tribes | | | | | | heart without angina | | | | | | pectoris; Essential | | | | | | [...] Bird; | | | | | | half-way current | | | | | | use of amiodarone | +--------+---------+ + + + Social History [...] + + + | Blood Pressure | 100/64 | 06/04/2018811 PDT | + + + + | Pulse | 62 | 06/04/2018811 PDT | + + + + | Temperature | - | - | + + + + | Respiratory Rate | 20 | 06/04/2018811 PDT | + + + + | Oxygen Saturation | - | - | + + + + | Inhaled Oxygen | - | - | | Concentration | | | + + + + | Weight | 88.5 kg (195 lb 1.7 | 06/04/2018811 PDT | | | oz) | | + + + + | Height | 167.6 cm (5' 6") | 06/04/2018811 PDT | + + + + | Body Mass Index | 31.49 | 06/04/2018811 PDT | + + + + in [...] + + + as of this encounter Instructions Patient Instructions - Emely Gabriel ARNP - 06/04/2018 0815 PDT 1. Take the blue slip down to have your blood drawn. 2. Go to the admitting and check in to go have your chest xray done. 3. We will schedule you for pulmonary function tests, either at [facility], or here if the y can't do the correct test. 4. Continue with your home pacemaker monitoring with [employer]. 5. Return in 1 year for office visit and device interrogation, or sooner with concerns.in t his encounter Progress Notes AbhijitalidaEmely GROUND WOOD SUPERVISOR - 06/04/2018 0815 PDTFormatting of this note may be different from the original. PATIENT NAME: Johnny Siddiqi : 1935: AGE: 82 y.o. PRIMARY CARE: Antonio Paulino MD CC: OUTPATIENT FOLLOW UP VISIT Date of Service: 06/04/2018 HISTORY OF PRESENT ILLNESS: Johnny Siddiqi is a 82 y.o. 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 medical dual-chamber pacemaker implantation on 05/14/17, Coronary artery disease, post CABG 1 with DON to LAD and mechanical aortic va lve replacement in 2004, heart failure with preserved ejection fraction, stage III chronic k idney disease, obesity, inactivity, COPD. He is being seen today for follow up and device i nterrogation. He was last seen 09/19/17 at which time he had no changes in his medical regimen. He would continue with his [employer] remote device monitoring. Since that time, he was at [facility]'s ER for dehydration and so he has been careful to drink Gatorade, Essentia wate r and milk to stay hydrated ever since then. He has had a fair energy level. He tries to stay active. He enjoys shopping in his spare ti [employer] He has not had any chest pain or discomfort at rest or with exertion. He has not notice d shortness of breath. He has not had any lightheadedness or dizziness. He has not noticed palpitations. He has noticed mild swelling at ankles by the end of the day that is resolved in the morning, which has been stable for him. Primarily if he is on his feet a lot. He slee ps on 1 pillow at night without any shortness of breath. He sleeps in adjustable bed but his head is flat and his legs are elevated. He doesn't have breathing problems as long as his t eeth are out at night. MEDICAL, SURGICAL, AND PERSONAL HISTORY Past Medical, Surgical, Family, and Social History are reviewed in EPIC. CURRENT PROBLEMS Patient Active Problem List Diagnosis H/O aortic valve replacement Essential hypertension Liver cirrhosis Dementia Alcoholic cirrhosis Coronary artery disease involving assinibo[place] and [place] tribes coronary artery of assin[place] and [place] tribes heart without angina pectoris Pulmonary HTN Chronic [...] times daily. desonide (DESOWEN) 0.05% cream Apply 1 Units [...] ROS Review of Systems Constitutional: Negative for chills, diaphoresis, fever, malaise/fatigue and weight loss. HENT: Positive for hearing loss (bilateral hearing aids). Negative for nosebleeds and tinni tus. Eyes: Negative for blurred vision and double vision. Respiratory: Negative for cough and shortness of breath. Cardiovascular: Positive for leg swelling (ankles sometimes). Negative for chest pain, palp itations, orthopnea and claudication. Gastrointestinal: Negative for abdominal pain, blood in stool, constipation, diarrhea, hear tburn, melena, nausea and vomiting. Genitourinary: Positive for frequency. Negative for hematuria and urgency. Musculoskeletal: Negative for back pain, falls, joint pain, myalgias and neck pain. Skin: Negative for itching and rash. Neurological: Negative for dizziness, tingling, tremors, seizures, loss of consciousness, w eakness and headaches. Negative for dental problems Positive for gait problems, uses a walker Negative for lightheaded Endo/Heme/Allergies: Negative for environmental allergies. Bruises/bleeds easily. Psychiatric/Behavioral: Negative for memory loss. The patient is not nervous/anxious and do es not have insomnia. OBJECTIVE: PHYSICAL EXAM BP 100/64 | Pulse 62 Comment: regular | Resp 20 | Ht 1.676 m (5' 6") | Wt 88.5 kg (195 l b 1.7 oz) | BMI 31.49 kg/m Physical Exam Constitutional: He is oriented to person, place, and time. He appears well-developed and we ll-nourished. Elderly male in no acute distress, accompanied by caregiver Neck: Normal carotid pulses and no JVD [...] 40 BPM Confirmed by BASIA BIRD MD ([id number]) on 06/20/2017 6:04:16 AM Which is compared to today's ECG 06/04/2018: sinus rhythm, atrial paced, ventricular sense d with rate of 67 bpm. LAB RESULTS reviewed during visit today primarily from [facility]: LIPID No results found for: CHOL, [...] 29.4 (L) 05/14/2017 PLT 136 (L) 05/14/2017 Lab Results Component Value Date TSH 2.21 02/27/2017 BNP 488 (H) 05/07/2017 I will obtain records from PCPs office, as well as emergency department visit from [facility]. DEVICE INTERROGATION Device interrogation is ordered and performed during this visit. Refer to scanned [employer] documentation and device PDF in [employer] for interrogation (with programming changes) performed during visit today. Events: 1 PMT on 05/25/18 interrupted appropriately by PMT, no other arrhythmia. Heart rate histogram shows minimal distribution. Atrial pacing <99%, Ventricular pacing <1% . There is a normal and stable device function. Estimated remaining battery longevity is 10.7 years. Current underlying rhythm: Junctional with ventricular escape of 32 beats per minute. Above data and testing is reviewed this visit; testing below is historical data unless othe rwise specified. ASSESSMENT: 1. Tachy/bradycardia with syncope: Satya Ramirezwas in his usual state of health until 7/18/17 when he was admitted aft er he fell twice while walking out of a convenience store. He was found to be anemic so or iginal thought was that he had GI bleeding causing the syncope. However, upper GI endoscop y did not reveal significant source of GI bleeding.Over the next few days, patient develop ed atrial fibrillation with rapid ventricular response. He was given metoprolol but ran in to problems with hypotension. Amiodarone was started. However, he developed a severe bra dycardia with hypotension, requiring dopamine. B. Patient underwent successful [employer] MRI compatible, dual-chamber p ermanent pacemaker implantation on 05/14/17. C. Today, 06/04/2018, his device interrogation shows normal and stable device fu nction, as listed above. 2. Paroxysmal atrial fibrillation with RVR/aberration conduction: A. Echocardiogram 04/01/2015 shows mild biatrial dilatation, normal left ventric ular size, wall thickness and motion, preserved left ventricular systolic function,LVEF is 65-70%, grade 1 left ventricular diastolic dysfunction, normally functioning mechanical enoc eaflet aortic valve replacement, mildly thickened and calcified mitral valve with a mild doroteo ral valve regurgitation, mild mitral annular calcification, mild tricuspid valve regurgitati on, moderate pulmonary hypertension with a peak systolic pressure of 55-60 mmHg, normal IVC with normal respiratory collapse, no previous echocardiography for comparison. B. Echocardiogram 01/30/2017 shows overall left ventricular systolic function is normal with, an EF between 65 - 70 %, pseudo normal LV diastolic filling pattern, consisten t with elevated LA pressure and moderate dysfunction (Grade II), right ventricle is normal i n size and function, there is mild bi-atrial enlargement, normally functioning mechanical pr osthetic aortic valve, there is mild pulmonary hypertension. C. Echocardiogram 02/28/2017 shows mild biatrial dilatation, normal left ventric ular size with a mild concentric left ventricular hypertrophy, left ventricular systolic fun ction is preserved. LVEF is 70%, normal right ventricular cavity with normal wall thickness and a mildly reduced right ventricular systolic function, normal functioning mechanical aort ic valve replacement, mildly thickened and calcified mitral valve with adequate opening, mil d to moderate mitral annular calcification, mild pulmonary hypertension with a peak systolic pressure of 45-50 mmHg, normal IVC with normal respiratory collapse. D. Echocardiogram of 05/13/17 showed mild biatrial dilatation. Normal left ventr icular size with a mild concentric left ventricular hypertrophy. Left ventricular systolic f unction is preserved. LVEF is 55-60%. Evidence of a paradoxical septal motion. Normal right ventricular size and wall thickness with a mildly decreased right ventricular systolic funct ion. Normally functioning mechanical bileaflet aortic valve replacement. Mildly thickened an d calcified mitral valve with adequate opening. There [...] HTN (1), Age >/= 75 Y.O.(2) and Vascula r disease (1). His [id number] score is 4, which gives an estimated 4.0% risk of stroke per year in atrial fibrillation. His bleeding risks include: bleeding history/anemia (1) and > 64 YO (1) . His HASBLED score is 2-3, which confers an intermediate risk (4.1-5.8%) risk o f bleed per year. Today, 06/04/2018, he has no episodes of atrial fibrillation noted. He is on amio darone for rate control. Will check labs and chest X-ray and pulmonary function tests per am iodarone protocol. 3. Congestive heart failure with preserved ejection fraction A. Today, 06/04/2018, he is well compensated. There are no signs or symptoms of overt congestive heart failure, and his physical exam shows no significant fluid retention. He is in class II of the [place] Heart Association functional class. 4. Coronary artery disease involving assiniboine and gros ventre tribes coronary artery of assin[place] and gros [place] tribes heart without angina pectoris: A. [facility] 11/14/2004 shows preserved left ventricular systolic function, critical aortic stenosis, severe one-vessel coronary artery disease. B. 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 C. Today, 06/04/2018, he denies any chest pain. 5. Nonsustained ventricular tachycardia A. Today, 06/04/2018, no events are noted on his device interrogation today. 6. Mechanical aortic valve replacement A. Status post AVR (#23 SJM) on 11/16/2004. B. Today, 06/04/2018, he remains on warfarin. 7. Hyperlipidemia, mixed: A. Today, 06/04/2018, he is on atorvastatin low dose as this is what he tolerate s, and is appropriate at his age with decreased renal function. 8. GI bleedingwith anemia: A. Noted during hospitalization 04/2017. Resolved. Not otherwise addressed toda y 06/04/2018. 9.Stage III chronic kidney disease. Not otherwise addressed today 06/04/2018. 10. Chronic obstructive pulmonary disease. Not otherwise addressed today 06/04/2018. 11. Obstructive sleep apnea. Not otherwise addressed today 06/04/2018. PLAN: 1. He will have labs done for CBC, CMP, fasting lipid panel, TSH, free T4. He will be sent a letter or called with the results. 2. He will be scheduled for chest X-ray and pulmonary function tests for amiodarone protoco l and needs to have annual eye exam. 3. He will continue with his [employer] remote device monitoring. 4. He will follow up in 1 year for office visit and device interrogation, or sooner with co curly. Electronically signed by: AMANDA Hurtado Barbara Rennaker, MA-R, am acting as a scribe on behalf of, and in the presence of AMANDA Hurtado. - CHUCK El 06/04/2018 8:16 I, AMANDA Hurtado, personally performed the services described in this documentation, as scribed in my presence and it is both accurate and complete. AMANDA Hurtado 8 Portions of this chart may have been created with [employer] voice recognition software. Occasi onal wrong-word or sound-alike substitutions may have occurred due to the inherent carter itations of voice recognition software. Please read the chart carefully and recognize, using context, where these substitutions have occurred. in this encounter Plan of Treatment +--------+---------+ + + + | Date | Type | Specialty | Care Team | Description | +--------+---------+ + + + | 07/31/ | Office | Cardiology | Basia Bird, | | | 2017 | Visit | | MD Leon Grant | | | | | | [address] [place], | | | | | | [place] [address] | | | | | | [phone] | | | | | | | | +--------+---------+ + + + | 06/04/ | Office | Cardiology | Emely Gabriel, | | | 2018 | Visit | | AMANDA [address] | | | | | | [place] | | | | | | [address] | | | | | | | | +--------+---------+ + + + as of this encounter Procedures + +--------+ + + + | Procedure Name | Priori | Date/Time | Associated Diagnosis | Comments | | | ty | | | | + +--------+ + + + | CBC NO DIFFERENTIAL | Routin | 06/04/2018 | Coronary artery | Results for this | | | e | 0926 PDT | disease involving | procedure are in the | | | | | assiniboine and gros ventre tribes coronary | results section. | | | | | artery of assiniboine and gros ventre tribes | | | | | | heart [...] + + | TSH | Routin | 06/04/2018 | Coronary artery | Results for this | | | e | 0926 PDT | disease involving | procedure are in the | | | | | assiniboine and gros ventre tribes coronary | results section. | | | | | artery of assiniboine and gros ventre tribes | | | | | | heart [...] | | | | | | fibrillation ([facility]) | | | | | | Pacemaker | | | | | | reprogramming/check | | | | | | Pacemaker Dual | | | | | | Chamber, MRI | | | | | | compatible, 05/14/17 | | | | | | [facility] [employer] [facility] | | + +--------+ + + + | T4, FREE | Routin | 06/04/2018 | Coronary artery | Results for this | | | e | 0926 PDT | disease involving | procedure are in the | | | | | assiniboine and gros ventre tribes coronary | results section. | | | | | artery of assiniboine and gros ventre tribes | | | | | | heart [...] | | [facility] [place] | | + +--------+ + + + | LIPID PANEL | Routin | 06/04/2018 | Coronary artery | Results for this | | | e | 0925 PDT | disease involving | procedure are in the | | | | | assiniboine and gros ventre tribes coronary | results section. | | | | | artery of assiniboine and gros ventre tribes | | | | | | heart [...] + + | COMPREHENSIVE | Routin | 06/04/2018 | Coronary artery | Results for this | | METABOLIC PANEL | e | 0925 PDT | disease involving | procedure are in the | | | | | assiniboine and gros ventre tribes coronary | results section. | | | | | artery of assiniboine and gros ventre tribes | | | | | | heart [...] | | [facility] | | + +--------+ + + + | ECG 12 LEAD | Routin | 06/04/2018 | Coronary artery | Results for this | | | e | 0831 PDT | disease involving | procedure are in the | | | | | assiniboine and gros ventre tribes coronary | results section. | | | | | artery of assiniboine and gros ventre tribes | | | | | | heart without angina | | | | | | pectoris | | + +--------+ + + + | DEVICE INTERROGATION | Routin | 06/04/2018 | | Results for this | | | e | 0000 PDT | Tachycardia-bradycar | procedure are in the | | | | | pablo syndrome (HCC) | results section. | | | | | Pacemaker | | | | | | reprogramming/check | | | | | | Pacemaker Dual | | | | | | Chamber, MRI | | | | | | compatible, 05/14/17 | | | | | | [facility] | | + +--------+ + + + in this encounter Results Pulmonary function test full PFT (06/27/2018 1109) + + + | Narrative | Performed [...] %. Following inhalation of albuterol the patient's | | | FEV1 lopez to 0.92, 34% of predicted. That the lung volume and DLCO | | | measurements were not possible. IMPRESSION: Spirometry is consistent | | | with very severe restrictive physiology. No prior pulmonary function | | | tests available for comparison. Test | | | performed: 06/26/18Electronically signed by: Antonio Hartman MD | | | 06/27/2018 11:09[facility] | | | | | | | | |IMPRESSION: Spirometry is consistent with very severe restrictive | | |physiology. No prior pulmonary function tests available for | | |comparison. | | | | | | | | |Test performed: 06/26/18 | | |Electronically signed by: Antonio Hartman MD 06/27/2018 11:09 | | |[facility] | | + + + XR Chest PA and Lateral (06/04/2018 0959) [...] | | + +---------+ + + TSH (06/04/2018 0926) + + + + + | Component | Value | Ref Range | Performed At | + + + + + | TSH | 11.40 (H)Comment: This | 0.45 - 5.33 uIU/mL | [facility] | | | is a [facility] generation | | [facility] | | | TSH test. | | CENTER - | | | | | LABORATORY | + + + + + + + | Specimen | + + | Blood | + + + + + + + | Performing | Address | City/State/Zipcode | Phone Number | | Organization | | | | + + + + + | [facility] | [address] | [place] | [phone] | | [facility] | | [address] | | | - LABORATORY | | | | + + + + + | [facility] | [address] | [place] | | | [facility] | | [address] | | | - LABORATORY | | | | + + + + + T4, Free (06/04/2018925) + +-------+ + + | Component | Value | Ref Range | Performed At | + +-------+ + + | FT4 | 1.0 | 0.6 - 1.1 ng/dL | [facility] | | | | | [facility] | | | | | CENTER - | | | | | LABORATORY | + +-------+ + + + + | Specimen | + + | Blood | + + + + + + + | Performing | Address | City/State/Zipcode | Phone Number | | Organization | | | | + + + + + | [facility] | [address] | [place], [place] | [phone] | | [facility] | | [address] | | | - LABORATORY | | | | + + + + + | [facility] | [address] | [place], [place] | | | [facility] | | [address] | | | - LABORATORY | | | | + + + + + CBC no Differential (06/04/2018925) + + + + + | Component | Value | Ref Range | Performed At | + + + + + | WBC | 6.4 | 4.0 - 11.0 K/uL | [facility] | | | | | [facility] | | | | | CENTER - | | | | | LABORATORY | + + + + + | RBC | 3.76 (L) | 4.30 - 5.70 M/uL | [facility] | | | | | [facility] | | | | | CENTER - | | | | | LABORATORY | + + + + + | Hgb | 11.2 (L) | 13.5 - 18.0 g/dL | [facility] | | | | | [facility] | | | | | CENTER - | | | | | LABORATORY | + + + + + | Hct | 34.7 (L) | 40.0 - 51.0 % | [facility] | | | | | [facility] | | | | | CENTER - | | | | | LABORATORY | + + + + + | MCV | 92.4 | 83.0 - 101.0 fL | [facility] | | | | | [facility] | | | | | CENTER - | | | | | LABORATORY | + + + + + | MCH | 29.7 | 28.0 - 35.0 pg | [facility] | | | | | [facility] | | | | | CENTER - | | | | | LABORATORY | + + + + + | MCHC | 32.2 | 32.0 - 36.0 g/dL | [facility] | | | | | [facility] | | | | | CENTER - | | | | | LABORATORY | + + + + + | RDW-CV | 16.0 (H) | <15.0 % | [facility] | | | | | [facility] | | | | | CENTER - | | | | | LABORATORY | + + + + + | Platelet Count | 151 | 140 - 440 K/uL | [facility] | | | | | [facility] | | | | | CENTER - | | | | | LABORATORY | + + + + + | MPV | 8.0 | fL | [facility] | | | | | [facility] | | | | | CENTER - | | | | | LABORATORY | + + + + + + + | Specimen | + + | Blood | + + + + + + + | Performing | Address | City/State/Zipcode | Phone Number | | Organization | | | | + + + + + | [facility] | [address] | [place] | [phone] | | [facility] | | [address] | | | - LABORATORY | | | | + + + + + | [facility] | [address] | [place] | | | [facility] | | [address] | | | - LABORATORY | | | | + + + + + Lipid Panel (06/04/2018924) + + + + + | Component | Value | Ref Range | Performed At | + + + + + | Triglycerides | 76 | 35 - 160 mg/dL | [facility] | | | | | [facility] | | | | | CENTER - | | | | | LABORATORY | + + + + + | Cholesterol | 122 (L) | 150 - 200 mg/dL | [facility] | | | | | [facility] | | | | | CENTER - | | | | | LABORATORY | + + + + + | HDL | 48Comment: New HDL | 28 - 83 mg/dL | [facility] | | | Reference Range as of | | [facility] | | | June 30, 2015 | | CENTER - | | | Values may be 10-20% | | LABORATORY | | | lower with new, | | | | | standardized method. | | | + + + + + | Chol/HDL Ratio | 2.5 | | [facility] | | | | | [facility] | | | | | CENTER - | | | | | LABORATORY | + + + + + | LDL, Calculated | 59 | <=130 mg/dL | [facility] | | | | | [facility] | | | | | CENTER - | | | | | LABORATORY | + + + + + + + | Specimen | + + | Blood | + + + + + + + | Performing | Address | City/State/Zipcode | Phone Number | | Organization | | | | + + + + + | [facility] | [address] | [place] | [phone] | | [facility] | | [address] | | | - LABORATORY | | | | + + + + + | [facility] | [address] | [place] | | | [facility] | | [address] | | | - LABORATORY | | | | + + + + + Comprehensive Metabolic Panel (06/04/2018 0925) + + + + + | Component | Value | Ref Range | Performed At | + + + + + | NA | 140 | 136 - 149 mmol/L | [facility] | | | | | [facility] | | | | | CENTER - | | | | | LABORATORY | + + + + + | K | 5.0 | 3.5 - 5.1 mmol/L | [facility] | | | | | [facility] | | | | | CENTER - | | | | | LABORATORY | + + + + + | CL | 108 | 98 - 109 mmol/L | [facility] | | | | | [facility] | | | | | CENTER - | | | | | LABORATORY | + + + + + | CO2 | 27 | 24 - 31 mmol/L | [facility] | | | | | [facility] | | | | | CENTER - | | | | | LABORATORY | + + + + + | ANION GAP | 5 | 3 - 16 mmol/L | [facility] | | | | | [facility] | | | | | CENTER - | | | | | LABORATORY | + + + + + | GLUCOSE | 94 | 70 - 109 mg/dL | [facility] | | | | | [facility] | | | | | CENTER - | | | | | LABORATORY | + + + + + | BUN | 22 (H) | 7 - 18 mg/dL | [facility] | | | | | [facility] | | | | | CENTER - | | | | | LABORATORY | + + + + + | Creatinine, | 1.41 (H) | 0.60 - 1.30 mg/dL | [facility] | | Serum/Plasma | | | [facility] | | | | | CENTER - | | | | | LABORATORY | + + + + + | eGFR if not | 48 (L)Comment: | >=60 mL/min/1.73m2 | [facility] | | CAMEROONIAN | GLOMERULAR FILTRATION | | [facility] | | | RATE,ESTIMATED mL/min | | CENTER - | | | /1.75v8Kjva than 60 | | LABORATORY | | | Chronic kidney | | | | | disease,if found over a | | | | | 3-month period.Less than | | | | | 15 Kidney | | | | | failureFor | | | | | Americans,multiply the | | | | | calculated GFR by 1.21. | | | | | | | | + + + + + | CALCIUM | 9.1 | 8.3 - 10.5 mg/dL | [facility] - | | | | | LABORATORY | + + + + + | ALBUMIN | 3.9 | 3.2 - 5.0 g/dL | [facility] | | [facility] - | | | | | LABORATORY | + + + + + | Bilirubin Total | 0.9 | 0.1 - 1.5 mg/dL | [facility] | [facility] - | | | | | LABORATORY | + + + + + | Total protein | 6.7 | 6.0 - 7.8 g/dL | [facility] - | | | | | LABORATORY | + + + + + | AST | 34 | 10 - 42 U/L | [facility] - | | | | | LABORATORY | + + + + + | ALT | 21 | 6 - 45 U/L | [facility] - | | | | | LABORATORY | + + + + + | ALK PHOS | 101 | 40 - 110 U/L | [facility] - | | | | | LABORATORY | + + + + + | GLOBULIN | 2.8 | 2.1 - 3.8 g/dL | [facility] - | | | | | LABORATORY | + + + + + | Albumin/Globulin | 1.4 | 0.8 - 2.0 | [facility] | | ratio | | | [facility] | | | | [facility] - | | | | | LABORATORY | + + + + + | BUN/CREA | 15.6 | | [facility] | | | [facility] - | | | | | LABORATORY | + + + + + + + | Specimen | + + | Blood | + + + + + + + | Performing | Address | City/State/Zipcode | Phone Number | | Organization | | | | + + + + + | [facility] | [address] | [place] | [phone] | | [facility] | | [address] | | | - LABORATORY | | | | + + + + + | [facility] | [address] | [place] | | | [facility] | | [address] | | | - LABORATORY | | | | + + + + + ECG 12 lead (06/04/2018830) + + + + + | Component | Value | Ref Range | Performed At | + + + + + | VENTRICULAR RATE EKG | 67 | BPM | [facility] | + + + + + | ATRIAL RATE | 441 | BPM | [facility] | + + + + + | P-R INTERVAL | 262 | ms | [facility] | + + + + + | QRS DURATION | 150 | ms | [facility] | + + + + + | Q-T INTERVAL | 458 | ms | [facility] | + + + + + | Q-T INTERVAL | 483 | ms | [facility] | | (CORRECTED) | | | | + + + + + | QRS AXIS | -31 | degrees | [facility] | + + + + + | T AXIS | 138 | degrees | [facility] | + + + + + | INTERPRETATION TEXT | Atrial-paced rhythm with | | [facility] | | | prolonged AV | | | | | conductionLeft axis | | | | | deviationLeft bundle | | | | | branch blockAbnormal | | | | | ECGWhen compared with | | | | | ECG of 19-JUN-2017 | | | | | 10:17,T wave inversion | | | | | more evident in Lateral | | | | | leadsConfirmed by | | | | | BASIA BIRD MD | | | | | ([id number]) on 06/05/2018 | | | | | 3:24:05 PM | | | + + + + + + + + | Narrative | Performed At | + + + | | | + + + + +---------+ + + | Performing | Address | City/State/Zipcode | Phone Number | | Organization | | | | + +---------+ + + | [facility] | | | | + +---------+ + + Device Interrogation (06/04/2018) + + + | Narrative | Performed At | + + + | Emely Gabriel, | [facility] | | GROUND WOOD SUPERVISOR 06/04/2018 15:12 PATIENT NAME: Johnny Siddiqi : | | | 1935: AGE: 82 y.o. Device In-office Evaluation | | | Report 06/04/2018 Reason for evaluation: routineIndication for device: | | | ICD-10-CM ICD-9-CM 1. Tachycardia-bradycardia syndrome (HCC) | | | I49.5 427.81 Device Interrogation Comprehensive Metabolic Panel | | | Lipid Panel CBC no Differential T4, Free TSH | | | XR Chest PA and Lateral Pulmonary function test | | | Comprehensive Metabolic Panel Lipid Panel CBC no | | | Differential T4, Free TSH 2. Coronary artery disease | | | involving [place] coronary artery of [place] and [place] heart without angina | | | pectoris I25.10 414.01 ECG 12 lead Comprehensive Metabolic Panel | | | Lipid Panel CBC no Differential T4, Free TSH | | | XR Chest PA and Lateral Pulmonary function test | | | Comprehensive Metabolic Panel Lipid Panel CBC no | | | Differential T4, Free TSH 3. Essential hypertension [...] PA and Lateral Pulmonary function | | | test Comprehensive Metabolic Panel Lipid Panel CBC no | | | Differential T4, Free TSH 5. Persistent atrial fibrillation | | | (HCC) I48.1 427.31 Comprehensive Metabolic Panel Lipid Panel | | | CBC no Differential T4, Free TSH XR Chest PA and | | | Lateral Pulmonary function test Comprehensive Metabolic | | | Panel Lipid Panel CBC no Differential T4, Free TSH | | | 6. Pacemaker reprogramming/check Z45.018 V53.31 Device Interrogation | | | Comprehensive Metabolic Panel Lipid Panel CBC no | | | Differential T4, Free TSH XR Chest PA and Lateral | | | Pulmonary function test Comprehensive Metabolic Panel Lipid | | | Panel CBC no Differential T4, Free TSH 7. Pacemaker | | | Dual Chamber, MRI compatible, 05/14/17 [facility] Z95.0 V45.01 | | | Device Interrogation Comprehensive Metabolic Panel Lipid | | | Panel CBC no Differential T4, Free TSH XR Chest PA | | | and Lateral Pulmonary function test Comprehensive Metabolic | | | Panel Lipid Panel CBC no Differential T4, Free | | | TSH 8. long term current use of amiodarone Z79.899 V58.69 XR Chest PA | | | and Lateral Pulmonary function test Patient was seated and | | | [...] device PDF for further details. | | | 428.0 Lipid Panel | [...] | | | TSH | | |8. half-way current use of amiodarone Z79.899 V58.69 XR [...] + | Emely Gabriel ARNP - 06/04/2018 0815 PDT Formatting of this note may be different | | from the original.PATIENT NAME: Johnny Siddiqi : 1935: AGE: 82 y.o.Device | | In-office Evaluation Report06/04/2018 Reason for evaluation: routineIndication for | | device: ICD-10-CM ICD-9-CM 1. Tachycardia-bradycardia syndrome (HCC) I49.5 427.81 | | Device Interrogation Comprehensive Metabolic Panel Lipid Panel CBC no | | Differential T4, Free TSH XR Chest PA and Lateral Pulmonary function test | | Comprehensive Metabolic Panel Lipid Panel CBC no Differential T4, Free TSH | | 2. Coronary artery disease involving [place] coronary artery of [place] heart without | | angina pectoris I25.10 [...] CBC no Differential T4, Free TSH 8. half-way current use of amiodarone Z79.899 | | [...] T4, Free | | TSH | |8. long term current use of amiodarone Z79.899 V58.69 XR [...] + | Tachycardia-bradycardia syndrome (HCC) - Primary | + + | Sinoatrial node dysfunction | + + | Coronary artery disease involving [place] and [place] tribes coronary artery of [place] and [place] tribes heart without angina | | pectoris | + + | Essential hypertension | [...] pacemaker in situ | + + | half-way current use of amiodarone | + +
--- OUTSIDE RECORDS SUMMARY | ~2018-07-09 | XMS | Encounter Summary ---
Demographics + + + | Address | [address] | | | [place] [address] | + + + | Home Phone | | + + + | Preferred Language | Unknown | + + + | Marital Status | | + + + | Congregation Affiliation | Unknown | + + + [...] Team Providers + +------+ + | Care Tobacco Feeder Catcher Name | Role | Phone | + [...] | 04/20/ | Implant | [facility] [place] | Cruzito Bird, | Remote Device | | 2018 | Monitor | CARDIOLOGY [address] | [address] | Interrogation | | | | [address], | [place], | (Primary Dx); | | | | [place] [address] | [place] [address] | Pacemaker Dual | | | | [phone] | [phone] | Chamber, MRI | | | | [...] | 07/31/ | Office | Cardiology | Cruzito Bird, | | | 2017 | Visit | | MD [address] | | | | | | [place], | | | | | | [place] [address] | | | | | | [phone] | | | | | | | | +--------+---------+ + + + | 06/04/ | Office | Cardiology | Emely Gabriel, | | | 2019 | Visit | | TOPOLOGY TEACHER [address] | | | | | | St [place], [place] | | | | | | [address] | | | | | | | [...] | | INTERROGATION- | e | 2359 PDT | Interrogation | procedure are in the [...] + + + in this encounter Results Device Interrogation - Remote (04/20/2018 2359) + + + | Narrative | Performed At | + + + | Cruzito Bird MD 05/02/2018 15:30 Refer to [facility] | [facility] | | documentation and remote PDF scanned into [email or web address] for remote | | | interrogation results. Data collected by Nancy Dougherty RN | | | Presenting rhythm: sinus rhythm atrial paced ventricular sensed at | | | 60 beats. 0 mode switch episodes accounting for 0.0% of the time. | | | No episodes. PVC singles 33 PVC singles | | | 11/month PVC runs 0 PVC runs 0/month | | | Histogram fair. Battery longevity 10.0 years. Apparent | | | normal and stable device function. Device interrogation due in office | | | in August 2018. | | + + + + +---------+ + + | Performing | Address | City/State/Zipcode | Phone Number | | Organization | | | | + +---------+ + + | [facility] | | | | + +---------+ + + in this encounter Visit Diagnoses + + | Diagnosis | + + | Remote Device Interrogation - Primary | + + | Fitting and adjustment of cardiac pacemaker | + + | Pacemaker Dual Chamber, MRI compatible, 05/14/17 [facility] Bird | + + | Cardiac pacemaker in situ | + + | Tachycardia-bradycardia syndrome (HCC) | + + | Sinoatrial node dysfunction | + +"
--- OUTSIDE RECORDS SUMMARY | ~2018-07-09 | XMS | Encounter Summary ---
Demographics + + + | Address | [address] | | | [place] [address] | + + + | Home Phone | | + + + | Preferred Language | Unknown | + + + | Marital Status | | + + + | Nondenominational Affiliation | Unknown | + + + | Race | Unknown | + + + | Ethnic Group | Unknown | + + + Author + + + | Author | [facility] | | | and [place] | + + + | Organization | [facility] | | | [...] Team Providers + +------+ + | Care Product Design Specialist Name | Role | Phone | + [...] | | | | Chronic | Emely, SERVICE ORDER DISPATCHER | Pulmonary | | | | | diastolic | [address] | Function [address] | | | | | (congestive) | [place] | [address] | | | | | heart | [place], [place] | [place], | | | | | failure | [address] | [place] [address] | | | | | (HCC) | Phone: | Phone: | | | | | Encounter | [phone] | [phone] | | | | | for | Fax: | Fax: | | | | | monitoring | [phone] | [phone] | | | | | amiodarone | | | | | | | therapy | | | | | | | Unspecified | | | | | | | atrial | | | | | | | fibrillation | | | | | | | (HCC) | | | | | | | Procedures | | | | | | | NV EVAL OF | | | | | | | BRONCHOSPASM | | | | | | | ,PROLONGED | | | | | | | NV DIFFUSING | | | | | | | CAPACITY | | | | | | | NV EVAL OF | | | | | | | BRONCHOSPASM | | | | | | | NV | | | | | | | PLETHYSMOGRA | | | | | | | PHY LUNG | | | | | | | VOLUMES W/WO | | | | | | | AIRWAY | | | | | | | RESIST NV | | | | | | | BREATHING | | | | | | | CAPACITY | | | | | | | TEST | | | +--------+--------+ + + + + Encounter Details +--------+ + + + + | Date | Type | Department | Care Team | Description | +--------+ + + + + | 06/26/ | Hospital | [facility] | Emely Gabriel, | Coronary artery | | 2018 | Encounter | MED CTR PULMONARY | SERVICE ORDER DISPATCHER [address] | disease involving | | | | FUNCTION [address] | [address] [place], [place] | [place] coronary | | | | [place], | [address] | artery of [place] | | | | [place] [address] | | heart without angina | | | | [phone] | | pectoris; | | | | [...] Marge; | | | | | | watermaster current | | | | | | [...] [place] | | | | | | [place] [address] | | | | | | [phone] | | | | | | | | +--------+---------+ + + + | 06/04/ | Office | Cardiology | Emely Gabriel, | | | 2018 | Visit | | AMANDA [address] | | | | | | [place] | | | | | | [id number] | | | | | | | [...] this | | FUNCTION TESTING | | 1109 PDT | disease involving | procedure are in the | | ORDERS | | | [place] coronary | results section. | | | | | artery of [place] | | | | | | heart [...] Marge | | | | | | group home current | | | | | [...] Hartman MD | | | 06/27/2018 11:09[facility] | | | | | | | | |IMPRESSION: Spirometry is consistent with very severe restrictive | | |physiology. No prior pulmonary function tests available for | | |comparison. | | | | | | | | |Test performed: 06/26/18 | | |Electronically signed by: Antonio Hartman MD 06/27/2018 11:09 | | |[facility] | | + + + in this encounter Visit Diagnoses + + | Diagnosis | + + | Coronary artery disease involving [place] coronary artery of [place] heart without angina | | pectoris | [...] pacemaker in situ | + + | watermaster current use of amiodarone | + + Administered Medications + +--------+ +--------+------+------+ | Medication Order | MAR | Action | Dose | Rate | Site | | | Action | Date | | | | + +--------+ +--------+------+------+ | albuterol 2.5 mg/3 mL nebulizer | Given | 06/26/2018 | 2.5 mg | | | | solution 2.5 mg 2.5 mg, | | 11:28 | | | | | Nebulization, RT Once, [facility] 06/26/18 | | PDT | | | | | at 1145, For 1 dose, RT will | | | | | | | administer. | | | | | | + +--------+ +--------+------+------+ +---+---+ | | | +---+---+ in this encounter"
--- OUTSIDE RECORDS SUMMARY | ~2018-07-09 | XMS | Encounter Summary ---
Demographics + + + | Address | [address] | | | [place] [address] | + + + | Home Phone | | + + + | Preferred Language | Unknown | + + + | Marital Status | | + + + | Orthodox Affiliation | 1061 | + + + | Race | Unknown | + + + | Ethnic Group | Unknown | + + + Author + + + | Author | [employer] [facility] | + + + | Organization | [facility] [employer] [facility] [employer] [facility] | + + + | Address [...] Team Providers + +------+ + | Care Strategy Specialist Name | Role | Phone | + +------+ + | Jerson Martin MD | PCP | | + +------+ + Reason for Visit + + + | Reason | Comments | + + + | Labs Only | | + + + Encounter Details +--------+ + + + + | Date | Type | Department | Care Team | Description | +--------+ + + + + | 04/16/ | Documentati | [facility] [place] | [place], | Labs Only | | 2018 | on Only | Cardiology [place] | SAMEER Aj | | | | | [address] | | | | | | [place] | | | | | | [address] | | | | | | [phone] | | | +--------+ + + + [...]
--- OUTSIDE RECORDS SUMMARY | ~2018-07-09 | XMS | Clinical Summary ---
Demographics + + + | Address | [address] | | | [place] [address] | + + + | Home Phone | | + + + | Preferred Language | Unknown | + + + | Marital Status | | + + + | Voodoo Affiliation | 1061 | + + + | Race | Unknown | + + + | Ethnic Group | Unknown | + + + Author + + + | Author | [employer] [facility] | + + + | Organization | [facility] | + + + | Address [...] Team Providers + +------+ + | Care Photographic Supervisor Name | Role | Phone | [...] Noted Date | + + + | Essential hypertension | [...] + + | Last Assessment & Plan: Persistent atrial fibrillation, | | currently in sinus rhythm. Anticoagulated, warfarin, managed by | | [facility]. Denies any new visual disturbances, dysarthria, | | dysphasia, lateralizing signs or symptoms. No significant | | bleeding or bruising reported.Lab, 07/31/2016: INR: 2.0, WBC: | | 10.2, H/H: 12.8/40.1, plt: 222 | + + + + + | Coronary artery disease involving coronary bypass graft of [place] | 09/03/2016 | | heart with angina [...] | (DON to LAD)/AVR (#23 SJM).[facility] | | noLast Cath, 11/14/2004: left [...] + + | Last Assessment & Plan: HFpEF. Continue diuretic therapy | | (furosemide, metolazone).CXR, 09/03/2016 ([facility]): Aortic | | valve prosthesis, mild pulmonary vascular plethora, moderate size | | loculated left posterior pleural effusion, pericardial | | calcification. | + + + + + | Cardiac pacemaker in situ | 05/14/2015 | + + + + + | Overview: [facility] MRI compatible dual-chamber pacemaker | + + + + + | S/P CABG x 1 | 11/16/2004 | + + + + + | Overview: DON > LAD | + + + + + | Status post mechanical aortic valve replacement | 11/16/2004 | + + + + + | Overview: #23 [facility] AVR | + + + +---+ | [...] | +--------+ + + + + | 06/17/ | Office | | Benjamín Garces, | Nidia (Provider) | | 2017 | Visit | | MD | | +--------+ + + + + | 04/16/ | Documentati | | Velia Gusman, | Yudith ([facility] | | 2017 | on Only | | [facility]) | +--------+ + + + + | 04/16/ | Documentati | | Katelin | Labs Only | 2017 | on Only | | SAMEER Aj | | +--------+ + + + + [...] AM PDT | + + + + Plan of Treatment + + + + + | Health [...] + + | Vaccine: Influenza | | 07/20/2017 | | | (#1) | 8 | | | + + + + + Procedures + +--------+ + + + | [...] section. | + +--------+ + + + from Last 3 Months Results CBC W/Auto Diff (Reflex to Manual) [...] | [address] | [place] [address] | | | LABORATORY | 13 | [...] | [address] | [place] [address] | | | LABORATORY | 13 | [...] | [address] | [place] [address] | | | LABORATORY | 13 | [...] | [address] | [place] [address] | | | LABORATORY | 13 | | | + + + + + from Last 3 Months Insurance + +--------+ +------+ + + | Payer | Benefi | Subscriber | Type | Phone | Address | | | t Plan | ID | | | | | | / | | | | | | | Group | | | | | + +--------+ +------+ + + | MEDICARE | MEDICA | [id number] | | | [address] | | | RE | | | | [place] [address] | | | IP-OP | | | | | + +--------+ +------+ + + | [place] | [place] | [id number] | | [phone] | FEE SERVICES [id number] | | ADMINISTRATION | CHOICE | | | [phone] | | | | | | | [address] [place], [place] | | | | | | | [phone] | + +--------+ +------+ + + | MEDICAID | [place] | | | | [address] | | | | | | | [place], [place] | | | FAMILY | | | | [address] | | | CARE | | | | | + +--------+ +------+ + + | MEDICAID | MEDICA | [id number] | | | [address] | | | ID | | | | [place], [place] | | | [place] | | | | [address] | + +--------+ +------+ + + + [...] | | al/Fam | | 1935 | [phone] | | | [place] | | | [address] | [place] [address] | + +--------+ +--------+ + + | JACKLYN PATEL | Vetera | Self | [birth year] | Home: | [address] | | | ns | | 1935 | [phone] | [address] | | | Admini | | | [address] | [place] [address] | | | strati | | | | | | | on | | | | | + +--------+ +--------+ + +
--- OUTSIDE RECORDS SUMMARY | ~2018-07-09 | XMS | Encounter Summary ---
Demographics + + + | Address | [address] | | | [place] [address] | + + + | Home Phone | | + + + | Preferred Language | Unknown | + + + | Marital Status | | + + + | Restoration Affiliation | Unknown | + + + [...] Team Providers + +------+ + | Care Instructional Resource Teacher Name | Role | Phone | + +------+ + | Antonio Paulino MD | PCP | | + +------+ + Reason for Visit +---------+ + | Reason | Comments | +---------+ + | Results | | +---------+ + Encounter Details +--------+ + + + + | Date | Type | Department | Care Team | Description | +--------+ + + + + | 06/05/ | Telephone | [facility] | Emely Gabriel, | Results | | 2017 | | CARDIOLOGY [address] | MEAT PRESS OPERATOR [address] | | | | | [place], | [place] | | | | | [place] [address] | [address] | | | | | [phone] | | | +--------+ + + + [...] [address] | | | | | | [place], | | | | | | [place] [address] | | | | | | [phone] | | | | | | | | +--------+---------+ + + + | 06/04/ | Office | Cardiology | Emely Gabriel, | | | 2018 | Visit | | AMANDA [address] | | | | | | [facility] [place] | | | | | | [address] | | | | | | | | +--------+---------+ + + + +------+--------+ + + | Name | Priori | Associated Diagnoses | Order Schedule | | | ty | | | +------+--------+ + + | TSH | Routin | Hypothyroidism due | Expected: | | | e | to amiodarone | 06/05/2018, Expires: | | | | | 06/05/2019 | +------+--------+ + + as of this encounter Visit Diagnoses + + | Diagnosis | + + | 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
--- OUTSIDE RECORDS SUMMARY | ~2018-07-09 | XMS | Encounter Summary ---
Demographics + + + | Address | [address] | | | [place] [address] | + + + | Home Phone | | + + + | Preferred Language | Unknown | + + + | Marital Status | | + + + | Restoration Affiliation | 1061 | + + + | Race | Unknown | + + + | Ethnic Group | Unknown | + + + Author + + + | Author | [employer] | + + + | Organization | [facility] | + + + | Address [...] Team Providers + +------+ + | Care Reinsurance Accountant Name | Role | Phone | + [...] + | 04/16/ | Documentati | [facility] [place] | [place], | Labs Only | | 2018 | on Only | Cardiology [facility] | SAMEER Aj | | | | | [address] | | | | | | [place] | | | | | | [address] | | | | | | [phone] | | | +--------+ + + + [...]
--- OUTSIDE RECORDS SUMMARY | ~2018-07-09 | XMS | Encounter Summary ---
Demographics + + + | Address | [address] | | | [place] [address] | + + + | Home Phone | | + + + | Preferred Language | Unknown | + + + | Marital Status | | + + + | Buddhist Affiliation | Unknown | + + + [...] Team Providers + +------+ + | Care Livestock Rancher Name | Role | Phone | + +------+ + | Antonio Paulino MD | PCP | | + +------+ + Encounter Details +--------+ + + + + | Date | Type | Department | Care Team | Description | +--------+ + + + + | 06/04/ | Hospital | [facility] | Emely Gabriel, | Coronary artery | | 2018 | Encounter | MED CTR XRAY [address] | STEWARDING SUPERVISOR [address] | disease involving | | | | [address] [place] | [place] | [place] coronary | | | | [place] [address] | [address] | artery of [place] | | | | [phone] | | heart without angina | | [...] | | | | | | fibrillation ([facility]); | | | | | | Pacemaker | | | | | | reprogramming/check; | | | | | | Pacemaker Dual | | | | | | Chamber, MRI | | | | | | compatible, 05/14/17 | | | | | | [facility]; | | | | | | terminal carman current | | | | | | [...] | 2017 | Visit | | MD [address]eno [address] | | | | | | [place] | | | | | | [place] [address] | | | | | | [phone] | | | | | | | | +--------+---------+ + + + | 06/04/ | Office | Cardiology | Emely Gabriel, | | | 2018 | Visit | | AMANDA [address] | | | | | | [place] | | | | | | [address] | | | | | | | [...] in the | | | | | [place] coronary | results section. | | | | | artery of [place] | | | | | | heart [...] Bird | | | | | | residential current | | | | | | [...] + + | Coronary artery disease involving [place] coronary artery of [place] heart without angina | | pectoris | [...] pacemaker in situ | + + | terminal carman current use of amiodarone | + +"
--- OUTSIDE RECORDS SUMMARY | ~2018-07-09 | XMS | Encounter Summary ---
Demographics + + + | Address | [address] | | | [place] [address] | + + + | Home Phone | | + + + | Preferred Language | Unknown | + + + | Marital Status | | + + + | Episcopal Affiliation | Unknown | + + + [...] + +------+ + | Care Manager Of Product Name | Role | Phone | + +------+ + | Antonio Paulino MD | PCP | | + +------+ + Reason for Referral Evaluate & Treat (Routine) + + + + + + + | Status | Reason | Specialty | Diagnoses / | Referred By | Referred To | | | | | Procedures | Contact | Contact | + + + + + + + | Authorized | Specialty | Pulmonary | Diagnoses | [place], | [facility] | | | Services | Disease | Chronic | AMANDA Han | CLINIC | | | Required | | obstructive | [address] | PULMONOLOGY | | | | | pulmonary | [address] [place] | [address] | | | | | disease, | [facility] MD | [address] | | | | | unspecified | [address] | [place] | | | | | COPD type | Phone: | [place], [place] | | | | | ([facility]) | [phone] | [address] | | | | | Abnormal PFT | Fax: | Phone: | | | | | | [phone] | [phone] | | | | | | | Fax: | | | | | | | [phone] | + + + + + + + Reason for Visit +---------+ + | Reason | Comments | +---------+ + | Results | | +---------+ + Encounter Details +--------+ + + + + | Date | Type | Department | Care Team | Description | +--------+ + + + + | 07/03/ | Telephone | [facility] [place] | Emely Gabriel, | Results | | 2017 | | CARDIOLOGY [address] | [place] POLICE OFFICER [address] | | | | | [place], | [facility] [place] | | | | | [place] [address] | [address] | | | | | [phone] | | | +--------+ + + + [...] Grant | | | | | | [facility], | | | | | | [place] [address] | | | | | | [phone] | | | | | | | | +--------+---------+ + + + | 06/04/ | Office | Cardiology | Emely Gabriel, | | | 2018 | Visit | | [place]DA [place] | | | | | | [facility] [place] | | | | | | [address] | | | | | | | | +--------+---------+ + + + + +--------+ + + | Name | Priori | Associated Diagnoses | Order Schedule | | | ty | | | + +--------+ + + | Pulmonology, External - AMB | Routin | Chronic | Ordered: 07/04/2018 | | Referral- | e | obstructive | | | | | pulmonary disease, | | | | | unspecified COPD | | | | | type (HCC) Abnormal | | | | | PFT | | + +--------+ + + as of this encounter Visit Diagnoses + + | Diagnosis | + + | Chronic obstructive pulmonary disease, unspecified COPD type (HCC) - Primary | + + | Abnormal PFT | + + | Nonspecific abnormal results of pulmonary system function study | + +"
--- OUTSIDE RECORDS SUMMARY | ~2018-07-09 | XMS | Encounter Summary ---
Demographics + + + | Address | [address] | | | [place] [address] | + + + | Home Phone | | + + + | Preferred Language | Unknown | + + + | Marital Status | | + + + | Yarsanism Affiliation | Unknown | + + + | Race | Unknown | + + + | Ethnic Group | Unknown | + + + Author + + + | Author | [facility] | | | and [place] | + + + | Organization | [facility] | | [...] Team Providers + +------+ + | Care Vehicle Dynamics Engineer Name | Role | Phone | [...] + + | 06/05/ | Telephone | [facility] | Emely Gabriel, | Results | | 2017 | | CARDIOLOGY [address] | THERAPIST RADIATION [address] | | | | | [place], | [place] | | | | | [place] [address] | [address] | | | | | [phone] | | | +--------+ + + + [...] Grant | | | | | | [place], | | | | | | [place] [address] | | | | | | [phone] | | | | | | | | +--------+---------+ + + + | 06/04/ | Office | Cardiology | Emely Gabriel, | | | 2018 | Visit | | AMANDA [address] | | | | | | [facility] [place] | | | | | | [address] | | | | | | | [...]
--- OUTSIDE RECORDS SUMMARY | ~2018-07-09 | XMS | Clinical Summary ---
Demographics + + + | Address | [address] | | | [place] [address] | + + + | Home Phone | | + + + | Preferred Language | Unknown | + + + | Marital Status | | + + + | Rastafari Affiliation | 1061 | + + + | Race | Unknown | + + + | Ethnic Group | Unknown | + + + Author + + + | Author | [employer] | + + + | Organization | [facility] [facility] | + + + | Address [...] Team Providers + +------+ + | Care Head Of Insight Name | Role | Phone | + [...] artery disease involving coronary bypass graft of [place] | 09/03/2016 | | heart with angina [...] | (DON to LAD)/AVR (#23 SJM).[facility]: | | noLast Cath, 11/14/2004: left [...] | [facility] | [address] | [place] [address] | | | LABORATORY | 13 | [...] | [address] | [place] [address] | | | LABORATORY | 13 | [...] | [address] | [place] [address] | | | LABORATORY | 13 | [...] | [address] | [place] [address] | | | LABORATORY | 13 | [...] + + | MEDICARE | MEDICA | [id number] | | | [address] | | | RE | | | | [place] [id number] | | | IP-OP | | | | | + +--------+ +------+ + + | [place] | [place] | [id number] | | [phone] FEE SERVICES [id number] | | ADMINISTRATION | CHOICE | | | [phone] | [phone] | | | | | | | [address] [place], [place] | | | | | | | [address] | + +--------+ +------+ + + | MEDICAID | [place] | | | | [address] | | | | | | | [place], [place] | | | FAMILY | | | | [phone] | | | CARE | | | | | + +--------+ +------+ + + | MEDICAID | MEDICA | [id number] | | | [address] | | | ID | | | | [place], [place] | | | [place] | | | | [address] | + +--------+ +------+ + + + [...] | | al/Fam | | 1935 | [phone] | | | isak | | | [address] | [place] [address] | + +--------+ +--------+ + + | JACKLYN PATEL | Vetera | Self | [birth year] | Home: | [address] | | | ns | | 1935 | [phone] | [address] | | | Admini | | | [address] | [place] [address] | | | strati | | | | | | | on | | | | | + +--------+ +--------+ + +
--- OUTSIDE RECORDS SUMMARY | ~2018-07-09 | XMS | Encounter Summary ---
Demographics + + + | Address | [address] | | | [place] [address] | + + + | Home Phone | | + + + | Preferred Language | Unknown | + + + | Marital Status | | + + + | Anabaptist Affiliation | Unknown | + + + [...] Team Providers + +------+ + | Care Psychologist Counseling Name | Role | Phone | + [...] | Visit | CARDIOLOGY [address] | WATER FILTER CLEANER [address] | pablo syndrome (HCC) | | | | [place], | [place], [place] | (Primary Dx); | | | | [place] [address] | [address] | Coronary artery | | | | [phone] | | disease involving | | | | | | apache coronary | | | | | | artery of apache | | | | | | heart [...] Bird; | | | | | | skilled nursing current | | | | | | [...] you for pulmonary function tests, either at [facility], or here if the y can't do the correct test. 4. Continue with your home pacemaker monitoring with [employer]. 5. Return in 1 year for office visit and device interrogation, or sooner with concerns.in t his encounter Progress Notes AbhijitalidaEmely WATER FILTER CLEANER - 06/04/2018 0815 PDTFormatting of this note [...] regimen. He would continue with his [employer] [place] remote device monitoring. Since that time, he was at [facility] ER for dehydration and so he has been careful to drink Gatorade, Essentia wate r and milk to stay hydrated ever since then. He has had a fair energy level. He tries to stay active. He enjoys shopping in his spare ti [employer]. 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 LAB RESULTS reviewed during visit today primarily from [facility]: LIPID No results found for: CHOL, [...] as well as emergency department visit from [facility]. DEVICE INTERROGATION Device interrogation is ordered and performed during this visit. Refer to scanned Paceart documentation and device PDF in [employer] for interrogation (with programming changes) performed during [...] Y.O.(2) and Vascula r disease (1). His [id number] score is 4, which gives an estimated [...] He is in class II of the [place] [employer] functional class. 4. 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 [facility] 11/14/2004 shows preserved left ventricular systolic [...] this chart may have been created with [employer] voice recognition software. Occasi onal wrong-word or [...] | | | | | | [place] [address] | | | | | | [phone] | | | | | | | | +--------+---------+ + + + | 06/04/ | Office | Cardiology | Emely Gabriel, | | | 2018 | Visit | | AMANDA [address] | | | | | | [place] | | | | | | [address] | | | | | | | [...] in the | | | | | apache coronary | results section. | | | | | artery of apache | | | | | | heart [...] in the | | | | | apache coronary | results section. | | | | | artery of apache | | | | | | heart [...] | | | | | | fibrillation ([facility]) | | | | | | Pacemaker [...] in the | | | | | apache coronary | results section. | | | | | artery of apache | | | | | | heart [...] in the | | | | | apache coronary | results section. | | | | | artery of apache | | | | | | heart [...] in the | | | | | apache coronary | results section. | | | | | artery of apache | | | | | | heart [...] in the | | | | | apache coronary | results section. | | | | | artery of apache | | | | | | heart [...] Hartman MD | | | 06/27/2018 11:09[facility] | | | | | | | | |IMPRESSION: Spirometry is consistent with very severe restrictive | | |physiology. No prior pulmonary function tests available for | | |comparison. | | | | | | | | |Test performed: 06/26/18 | | |Electronically signed by: Antonio Hartman MD 06/27/2018 11:09 | | |[facility] | | + + + XR Chest [...] | is a third generation | | [facility] | | | TSH test. | [...] [address] | [place] | [phone] | | [facility] | | [address] | | | - LABORATORY | | | | + + + + + | [facility] | [address] | [place] | | | [facility] | | [address] | | | - LABORATORY | | | | + + + + + T4, Free (06/04/2018925) + +-------+ + + | Component | Value | Ref Range | Performed At | + +-------+ + + | FT4 | 1.0 | 0.6 - 1.1 ng/dL | [facility] | | | | | [facility] | | | | | CENTER - | | | | | LABORATORY | + +-------+ + + + + | Specimen | + + | Blood | + + + + + + + | Performing | Address | City/State/Zipcode | Phone Number | | Organization | | | | + + + + + | [facility] | [address] | [place], [place] | [phone] | | [facility] | | [address] | | | - LABORATORY | | | | + + + + + | [facility] | [address] | [place], [place] | | | [facility] | | [address] | | | - LABORATORY | | [...] [facility] | | | | | [facility] | | | | | CENTER - | | | | | LABORATORY | + + + + + | MPV | 8.0 | fL | [facility] [facility] | | | | | [facility] | | | | | CENTER [...] [address] | [place] | [phone] | | [facility] | | [address] | | | - LABORATORY | | | | + + + + + | [facility] | [address] | [place] | | | [facility] | | [address] | | | - LABORATORY | | | | + + + + + Lipid Panel (06/04/2018924) + + + + + | Component | Value | Ref Range | Performed At | + + + + + | Triglycerides | 76 | 35 - 160 mg/dL | [facility] | | | | | [facility] | | | | | CENTER - | | | | | LABORATORY | + + + + + | Cholesterol | 122 (L) | 150 - 200 mg/dL | [facility] | | | | | [facility] | | | | | CENTER - | | | | | LABORATORY | + + + + + | HDL | 48Comment: New HDL | 28 - 83 mg/dL | [facility] | | | Reference Range as of | | [facility] | | | June 30, 2015 | | CENTER - | | | Values may be 10-20% | | LABORATORY | | | lower with new, | | | | | standardized method. | | | + + + + + | Chol/HDL Ratio | 2.5 | | [facility] | | | | | [facility] | | | | | CENTER - | | | | | LABORATORY | + + + + + | LDL, Calculated | 59 | <=130 mg/dL | [facility] | | | | | [facility] | | | | | CENTER [...] + | [facility] | [address] | [place] | [phone] | | [facility] | | [address] | | | - LABORATORY | | | | + + + + + | [facility] | [address] | [place] | | | [facility] | | [address] | | | - LABORATORY | | [...] ST. | | Serum/Plasma | | | [facility] | | | | | CENTER - | | | | | LABORATORY | + + + + + | eGFR if not | 48 (L)Comment: | >=60 mL/min/1.73m2 | [facility] | | MALAGASY | GLOMERULAR FILTRATION | | [facility] | | | RATE,ESTIMATED mL/min | | CENTER - | | | /[id number] than 60 | | LABORATORY | | [...] [facility] | | | | | [facility] | | | | | [...] [address] | [place] | [phone] | | [facility] | | [address] | | | - LABORATORY | | | | + + + + + | [facility] | [address] | [place] | | | [facility] | | [address] | | | - LABORATORY | | [...] BIRD MD | | | | | ([id number]) on 06/05/2018 | | | | | [...] | Emely Gabriel, | PACEART | | WATER FILTER CLEANER 06/04/2018 15:12 PATIENT NAME: Johnny Siddiqi : [...] Coronary artery disease | | | involving apache coronary artery of apache heart without angina | | | pectoris [...] T4, Free | | | TSH 8. terminologist current use of amiodarone Z79.899 V58.69 XR [...] | | | TSH | | |8. skilled nursing current use of amiodarone Z79.899 V58.69 XR [...] | | 2. Coronary artery disease involving apache coronary artery of apache heart without | | angina pectoris I25.10 [...] CBC no Differential T4, Free TSH 8. skilled nursing current use of amiodarone Z79.899 | | [...] T4, Free | | TSH | |8. terminologist current use of amiodarone Z79.899 V58.69 XR [...] + + | Coronary artery disease involving apache coronary artery of apache heart without angina | | pectoris | [...] pacemaker in situ | + + | skilled nursing current use of amiodarone | + +
--- OUTSIDE RECORDS SUMMARY | ~2018-07-09 | XMS | Encounter Summary ---
Demographics + + + | Address | [address] | | | [place] [address] | + + + | Home Phone | | + + + | Preferred Language | Unknown | + + + | Marital Status | | + + + | Mandaeism Affiliation | Unknown | + + + [...] Team Providers + +------+ + | Care Packaging Sales Representative Name | Role | Phone | [...] | 04/20/ | Implant | [facility] [place] | Cruzito Bird, | Remote Device | | 2018 | Monitor | CARDIOLOGY [address] | [address] | Interrogation | | | | [place], | [place], | (Primary Dx); | | | | [place] [address] | [place] [address] | Pacemaker Dual | | | | [phone] | [phone] | Chamber, MRI | | | | [...] 2017 | Visit | | MD Leon rGant | | | | | | [place], | | | | | | [place] [address] | | | | | | [phone] | | | | | | | | +--------+---------+ + + + | 06/04/ | Office | Cardiology | Emely Gabriel, | | | 2019 | Visit | | DIE REPAIRER STAMPING [address] | | | | | | St [place], [place] | | | | | | [address] | | | | | | | [...] | documentation and remote PDF scanned into Dashride for remote | | | interrogation results. [...]
--- OUTSIDE RECORDS SUMMARY | ~2018-07-09 | XMS | Encounter Summary ---
Demographics + + + | Address | [address] | | | [place] [address] | + + + | Home Phone | | + + + | Preferred Language | Unknown | + + + | Marital Status | | + + + | Restorationism Affiliation | Unknown | + + + | Race | Unknown | + + + | Ethnic Group | Unknown | + + + Author + + + | Author | [facility] | | | and [place] | + + + | Organization | [facility] | | [...] Team Providers + +------+ + | Care Liquefier Name | Role | Phone | + +------+ + | Antonio Paulino MD | PCP | | + +------+ + Reason for Visit + + + | Reason | Comments | + + + | Appointment | | + + + Encounter Details +--------+ + + + + | Date | Type | Department | Care Team | Description | +--------+ + + + + | 04/21/ | Telephone | [facility] | Cruzito Bird, | Appointment | | 2017 | | CARDIOLOGY [address] | [address] [place] | | | | | [place], | [place], | | | | | [place] [address] | [place] [address] | | | | | [phone] | [phone] | | | | | | | [...] [place] | | | | | | [place] [address] | | | | | | [phone] | | | | | | | | +--------+---------+ + + + | 06/04/ | Office | Cardiology | Emely Gabriel, | | | 2018 | Visit | | [address] | | | | | | [place] | | | | | | [address] | | | | | | | | +--------+---------+ + + + as of this encounter Visit Diagnoses Not on filein this encounter"
--- OUTSIDE RECORDS SUMMARY | ~2018-07-09 | XMS | Encounter Summary ---
Demographics + + + | Address | [address] | | | [place] [address] | + + + | Home Phone | | + + + | Preferred Language | Unknown | + + + | Marital Status | | + + + | Voodoo Affiliation | Unknown | + + + | Race | Unknown | + + + | Ethnic Group | Unknown | + + + Author + + + | Author | [facility] | | | and [place] | + + + | Organization | [facility] | | [...] Team Providers + +------+ + | Care Dog Walker Name | Role | Phone | + [...] | | | | Chronic | Emely, HARNESS AND BAG INSPECTOR | Pulmonary | | | | | diastolic | [address] | Function [address] | | | | | (congestive) | [address] [place] | [address] | | | | | heart | [place], [place] | [place], | | | | | failure | [address] | [place] [address] | | | | | (HCC) | Phone: | Phone: | | | | | Encounter | [phone] | [phone] | | | | | for | Fax: | Fax: | | | | | monitoring | [phone] | [phone] | | | | | amiodarone | | | | | | | therapy | | | | | | | Unspecified | | | | | | | atrial | | | | | | | fibrillation | | | | | | | (HCC) | | | | | | | Procedures | | | | | | | CA EVAL OF | | | | | | | BRONCHOSPASM | | | | | | | ,PROLONGED | | | | | | | CA DIFFUSING | | | | | | | CAPACITY | | | | | | | CA EVAL OF | | | | | | | BRONCHOSPASM | | | | | | | CA | | | | | | | PLETHYSMOGRA | | | | | | | PHY LUNG | | | | | | | VOLUMES W/WO | | | | | | | AIRWAY | | | | | | | RESIST CA | | | | | | | BREATHING | | | | | | | CAPACITY | | | | | | | TEST | | | +--------+--------+ + + + + Encounter Details +--------+ + + + + | Date | Type | Department | Care Team | Description | +--------+ + + + + | 06/26/ | Hospital | [facility] | Emely Gabriel, | Coronary artery | | 2018 | Encounter | MED CTR PULMONARY | HARNESS AND BAG INSPECTOR [address] | disease involving | | | | FUNCTION [address] | [address] [place], [place] | deering coronary | | | | [place], | [address] | artery of deering | | | | [place] [address] | | heart without angina | | | | [phone] | | pectoris; | | | | [...] Marge; | | | | | | buttermaker [...] [place] | | | | | | [place] [address] | | | | | | [phone] | | | | | | | | +--------+---------+ + + + | 06/04/ | Office | Cardiology | Emely Gabriel, | | | 2018 | Visit | | AMANDA [address] | | | | | | [place] | | | | | | [address] | | | | | | | [...] the | | ORDERS | | | deering coronary | results section. | | | | | artery of deering | | | | | | heart [...] Marge | | | | | | nursing home current | | | | | [...] Hartman MD | | | 06/27/2018 11:09[facility] | | | | | | | | |IMPRESSION: Spirometry is consistent with very severe restrictive | | |physiology. No prior pulmonary function tests available for | | |comparison. | | | | | | | | |Test performed: 06/26/18 | | |Electronically signed by: Antonio Hartman MD 06/27/2018 11:09 | | |[facility] | | + + + in this encounter Visit Diagnoses + + | Diagnosis | + + | Coronary artery disease involving deering coronary artery of deering heart without angina | | pectoris | [...] pacemaker in situ | + + | buttermaker continuous churn current use of amiodarone | + + [...] | | | | Nebulization, RT Once, [facility] 06/26/18 | | PDT | | | | | at 1145, For 1 dose, RT will | | | | | | | administer. | | | | | | + +--------+ +--------+------+------+ +---+---+ | | | +---+---+ in this encounter"
--- OUTSIDE RECORDS SUMMARY | ~2018-07-09 | XMS | Encounter Summary ---
Demographics + + + | Address | [address] | | | [place] [address] | + + + | Home Phone | | + + + | Preferred Language | Unknown | + + + | Marital Status | | + + + | Samaritan Affiliation | 1061 | + + + | Race | Unknown | + + + | Ethnic Group | Unknown | + + + Author + + + | Author | [employer] | + + + | Organization | [facility] | + + + | Address [...] Team Providers + +------+ + | Care Special Delivery Clerk Name | Role | Phone | [...] [place] | | | | | | [address] | | | | | | [phone] | | | +--------+ + + + [...] | [address] | [place] [address] | | | LABORATORY | 13 | [...] | [address] | [place] [address] | | | LABORATORY | 13 | [...] + + + | [facility] | [address] | [place] [address] | | | LABORATORY | 13 | [...] | [address] | [place] [address] | | | LABORATORY | 13 | | | + + + + + in this encounter Visit Diagnoses Not on filein this encounter"
--- OUTSIDE RECORDS SUMMARY | ~2018-07-09 | XMS | Clinical Summary ---
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 | | + [...] + + | 07/03/ | Telephone | | Emeyl Gabriel, | Results | | 2017 | | | MACHINE OPERATOR HELPER | | +--------+ + + + + | 06/26/ | Hospital | | Emely Gabriel, | Coronary artery | | 2017 | Encounter | | MACHINE OPERATOR HELPER | disease involving | | | | | | [place] coronary | | | | | | artery of [place] | | | | | | heart [...] Bird; | | | | | | ferry terminal supervisor current | | | | | | use of amiodarone | +--------+ + + + + | 06/05/ | Telephone | | Emely Gabriel, | Results | | 2017 | | | MACHINE OPERATOR HELPER | | +--------+ + + + + | 06/04/ | Hospital | | Emely Gabriel, | Coronary artery | | 2018 | Encounter | | MACHINE OPERATOR HELPER | disease involving | | | | | | [place] coronary | | | | | | artery of [place] | | | | | | heart [...] Bird; | | | | | | longterm current | | | | | | use of amiodarone | +--------+ + + + + | 06/04/ | Office | | Emely Gabriel, | 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) | | | | | | (Primary Dx); | | | | | | Coronary artery | | | | | | disease involving | | | | | | [place] coronary | | | | | | artery of [place] | | | | | | heart [...] Marge; | | | | | | longterm current | | | | | | use of amiodarone | +--------+ + + + + | 04/21/ | Telephone | | Basia Bird, | Appointment | | 2017 | | | MD | | +--------+ + + + + | 04/20/ | Implant | | Basia Bird, | Remote Device | | 2017 [...] | Body Mass Index | 31.49 | 06/04/201812 PDT | + + + + Plan of Treatment +--------+---------+ + + + | Date | Type | Specialty | Care Team | Description | +--------+---------+ + + + | 07/31/ | Office | | Basia Bird, | | | 2017 | Visit | | [address] | | | | | | [place] | | | | | | [place] [address] | | | | | | [phone] | | | | | | | | +--------+---------+ + + + | 06/04/ | Office | | Emely Gabriel, | | | 2018 | Visit | | AMANDA [address] | | | | | | [place] | | | | | | [address] | | | | | | | [...] | [facility] | | 06/20/ | [id number] | | [id number]: Qty: 1 | | Heart | MEDICAL - | | 2016 | 0M/52 | | on 05/14/2017 by Marge | | | CHRISTOPHER | | | /[id number] | | MD Basia | | | | | | [id number] / | + +------+-------+ +--------+--------+--------+ | Lead Tendril Mri 46cm - | | N/A: | [facility] | | 07/20/ | [id number] | | [id number]: Qty: 1 | | Heart | MEDICAL - | | 2016 | 0M/46 | | on 05/14/2017 by Marge, | | | CHRISTOPHER | | | /[id number] | | MD Basia | | | | | | [id number] / | + +------+-------+ +--------+--------+--------+ | Pacer Assurity Mri Dr Rf - | | N/A: | [facility] | | 08/20/ | [id number] | | [id number]: Qty: 1 on | | Heart | MEDICAL - | | 2017 | | | 05/14/2017 by Marge, | | | CHRISTOPHER | | | /[id number] | | MD Basia | | | | | | 01 [...] the | | ORDERS | | | [place] coronary | results section. | | | | | artery of [place] | | | | | | heart [...] Marge | | | | | | ferry terminal supervisor current | | | | | | use of amiodarone | | + +--------+ + + + | XR CHEST PA AND | Routin | 06/04/2018 | Coronary artery | Results for this | | LATERAL | e | 0959 PDT | disease involving | procedure are in the | | | | | [place] coronary | results section. | | | | | artery of [place] | | | | | | heart [...] | | | | | failure ([facility]) | | | | | | Persistent atrial | | | | | | fibrillation ([facility]) | | | | | | Pacemaker | | | | | | reprogramming/check | | | | | | Pacemaker Dual | | | | | | Chamber, MRI | | | | | | compatible, 05/14/17 | | | | | | [facility] Thosuwan | | | | | | ferry terminal supervisor current | | | | | | use of amiodarone | | + +--------+ + + + | TSH | Routin | 06/04/2018 | Coronary artery | Results for this | | | e | 0926 PDT | disease involving | procedure are in the | | | | | [place] coronary | results section. | | | | | artery of [place] | | | | | | heart [...] in the | | | | | [place] coronary | results section. | | | | | artery of [place] | | | | | | heart [...] in the | | | | | [place] coronary | results section. | | | | | artery of [place] | | | | | | heart [...] | fibrillation ([facility]) | | | | | | Pacemaker [...] in the | | | | | [place] coronary | results section. 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 | | | | | artery of [place] | | | | | | heart [...] in the | | | | | [place] coronary | results section. | | | | | artery of [place] | | | | | | heart [...] | | INTERROGATION- | e | 0000 PDT | Interrogation | procedure are in [...] + + from Last 3 Months Results Pulmonary function test full PFT (06/27/2018 [...] Hartman MD | | | 06/27/2018 11:09[facility] | | | | | | | | |IMPRESSION: Spirometry is consistent with very severe restrictive | | |physiology. No prior pulmonary function tests available for | | |comparison. | | | | | | | | |Test performed: 06/26/18 | | |Electronically signed by: Antonio Hartman MD 06/27/2018 11:09 | | |[facility] | | + + + XR [...] | | | + +---------+ + + CBC no Differential (06/04/2018 0926) + + + + + [...] | | | | | [facility] | | | | | CENTER [...] [address] | [place] | [phone] | | [facility] | | [address] | | | - LABORATORY | | | | + + + + + | [facility] | [address] | [place] | | | [facility] | | [address] | | | - LABORATORY | | | | + + + + + TSH (06/04/2018925) + + + + + | Component | Value | Ref Range | Performed At | + + + + + | TSH | 11.40 (H)Comment: This | 0.45 - 5.33 uIU/mL | [facility] | | | is a third generation | | [facility] | | | TSH test. | [...] + | [facility] | [address] | [place] | [phone] | | [facility] | | [address] | | | - LABORATORY | | | | + + + + + | [facility] | [address] | [place] | | | [facility] | | [address] | | | - LABORATORY | | | | + + + + + T4, Free (06/04/2018925) + +-------+ + + | Component | Value | Ref Range | Performed At | + +-------+ + + | FT4 | 1.0 | 0.6 - 1.1 ng/dL | [facility] | | | | | [facility] | | | | | CENTER [...] [address] | [place] | [phone] | | [facility] | | [address] | | | - LABORATORY | | | | + + + + + | [facility] | [address] | [place] | | | [facility] | | [address] | | | - LABORATORY | | | | + + + + + Lipid Panel (06/04/201825) + + + + + | Component | Value | Ref Range | Performed At | + + + + + | Triglycerides | 76 | 35 - 160 mg/dL | [facility] | | | | | [facility] | | | | | CENTER - | | | | | LABORATORY | + + + + + | Cholesterol | 122 (L) | 150 - 200 mg/dL | [facility] | | | | | [facility] | | | | | CENTER - | | | | | LABORATORY | + + + + + | HDL | 48Comment: New HDL | 28 - 83 mg/dL | [facility] | | | Reference Range as of | | [facility] | | | June 30, 2015 | | CENTER - | | | Values may be 10-20% | | LABORATORY | | | lower with new, | | | | | standardized method. | | | + + + + + | Chol/HDL Ratio | 2.5 | | [facility] | | | | | [facility] | | | | | CENTER - | | | | | LABORATORY | + + + + + | LDL, Calculated | 59 | <=130 mg/dL | [facility] | | | | | [facility] | | | | | CENTER [...] + | [facility] | [address] | [place] | [phone] | | [facility] | | [address] | | | - LABORATORY | | | | + + + + + | [facility] | [address] | [place] | | | [facility] | | [address] | | | - LABORATORY | | | | + + + + + Comprehensive Metabolic Panel (06/04/201825) + + + + + | Component [...] ST. | | Serum/Plasma | | | [facility] | | | | | CENTER - | | | | | LABORATORY | + + + + + | eGFR if not | 48 (L)Comment: | >=60 mL/min/1.73m2 | [facility] | | PALESTINIAN | GLOMERULAR FILTRATION | | [facility] | | | RATE,ESTIMATED mL/min | | CENTER - | | | /1.36u1Ldwf than 60 | | LABORATORY | | [...] [facility] | | | | | [facility] | | | | | [...] 1.4 | 0.8 - 2.0 | [facility] | | ratio | | | [...] + | [facility] | [address] | [place] | [phone] | | [facility] | | [address] | | | - LABORATORY | | | | + + + + + | [facility] | [address] | [place] | | | [facility] | | [address] | | | - LABORATORY | | | | + + + + + ECG 12 lead (06/04/2018 0831) + + + + + | Component [...] BIRD MD | | | | | ([id number]) on 06/05/2018 | | | | | [...] | Emely Gabriel, | [facility] | | MACHINE OPERATOR HELPER 06/04/2018 15:12 PATIENT NAME: Jacklyn Patel : | | | 1935: AGE: 82 [...] Coronary artery disease | | | involving [place] coronary artery of [place] heart without angina | | | pectoris [...] T4, Free | | | TSH 8. ferry terminal supervisor current use of amiodarone Z79.899 V58.69 XR [...] | | | TSH | | |8. ferry terminal supervisor current use of amiodarone Z79.899 V58.69 XR [...] | Procedure Note | + + | Nery EmelyAMANDA - 06/04/2018 0815 PDT Formatting of this note may be different | | from the original.PATIENT NAME: Jacklyn Patel : 1935: AGE: 82 y.o.Device | | [...] | | 2. Coronary artery disease involving [place] coronary artery of [place] heart without | | angina pectoris I25.10 [...] CBC no Differential T4, Free TSH 8. longterm current use of amiodarone Z79.899 | | [...] failure (HCC) I50.32 428.32 Comprehensive Metabolic P en | | 428.0 Lipid Panel | | [...] T4, Free | | TSH | |8. ferry terminal supervisor current use of amiodarone Z79.899 V58.69 XR [...] | + +---------+ + + Device Interrogation - Remote (05/02/2018)Only the most recent of 2 results within the time period is included. + + + | Narrative | Performed At | + + + | Basia | [facility] | | MD Marge 05/02/2018 13:32Refer to [facility]ace[facility] documentation | | | and remote PDF scanned into Sherpaa for remote interrogation | | | results. Data collected by Nancy Dougherty RN Presenting rhythm: | | | sinus rhythm atrial paced ventricular sensed between 65-68 beats.0 | | | mode switch episodes accounting for 0.0% of the time.No | | | episodes. PVC singles 400 PVC singles 133/monthPVC | | | runs 0 PVC runs 0/monthHistogram fair. | | | Battery longevity 10.2 years.Apparent normal and stable device | | | function.Device interrogation due in office 06/04/18. | | |PVC runs 0 PVC runs 0/month | | |Histogram fair. Battery longevity 10.2 years. | | |Apparent normal and stable device function. | | |Device interrogation due in office 06/04/18. | | | | | + + + + + | Procedure Note | + + | Basia Bird MD - 01/14/2018 2359 PDT Refer to [facility]ace[facility] documentation and remote | | PDF scanned into Sherpaa for remote interrogation results. Data collected by [...] +---------+ | [employer] | VETERA | [id number] | Indemn | | | | | NS | | ity | | | | | ADMIN | | | | | | | [place] | | | | | | | [place] | | | | | + +--------+ +--------+ +---------+ | MEDICARE | MEDICA | [id number] | Medica | [phone] | | | | RE | | re | [phone] | | | | PART A | | | | | | | AND B | | | | | + +--------+ +--------+ +---------+ | MEDICAID [place] | MEDICA | [id number] | Medica | [phone] | | [...] | [address] | | | al/Guy | | 1935 | [phone] | [address] | | | [place] | | | [address] | [place] [address] | + +--------+ +--------+ + + | JACKLYN PATEL | Chapis | Self | [birth year] | Home: | [address] | | | l | | 1935 | [phone] | [address] | | | [place] | | | [address] | [place] [address] | | | es | | | | | + +--------+ +--------+ + +
--- OUTSIDE RECORDS SUMMARY | ~2018-07-09 | XMS | Encounter Summary ---
Demographics + + + | Address | [address] | | | [place] [address] | + + + | Home Phone | | + + + | Preferred Language | Unknown | + + + | Marital Status | | + + + | Hinduism Affiliation | Unknown | + + + [...] Team Providers + +------+ + | Care Fire Tower Keeper Name | Role | Phone | + [...] | | | | Chronic | Emely, EGG TRAYER | Pulmonary | | | | | diastolic | [address] | Function [address] | | | | | (congestive) | [place] | [address] | | | | | heart | [place], [place] | [place], | | | | | failure | [address] | [place] [address] | | | | | (HCC) | Phone: | Phone: | | | | | Encounter | [phone] | [phone] | | | | | for | Fax: | Fax: | | | | | monitoring | [phone] | [phone] | | | | | amiodarone | | | | | | | therapy | | | | | | | Unspecified | | | | | | | atrial | | | | | | | fibrillation | | | | | | | (HCC) | | | | | | | Procedures | | | | | | | RI EVAL OF | | | | | | | BRONCHOSPASM | | | | | | | ,PROLONGED | | | | | | | RI DIFFUSING | | | | | | | CAPACITY | | | | | | | RI EVAL OF | | | | | | | BRONCHOSPASM | | | | | | | RI | | | | | | | PLETHYSMOGRA | | | | | | | PHY LUNG | | | | | | | VOLUMES W/WO | | | | | | | AIRWAY | | | | | | | RESIST RI | | | | | | | BREATHING | | | | | | | CAPACITY | | | | | | | TEST | | | +--------+--------+ + + + + Encounter Details +--------+ + + + + | Date | Type | Department | Care Team | Description | +--------+ + + + + | 06/26/ | Hospital | [facility] | Emely Gabriel, | Coronary artery | | 2018 | Encounter | MED CTR PULMONARY | EGG TRAYER [address] | disease involving | | | | FUNCTION [address] | [address] [place] | [place] coronary | | | | [place], | [address] | artery of [place] | | | | [place] [address] | | heart without angina | | | | [phone] | | pectoris; | | | | [...] Marge; | | | | | | roasterman current | | | | | | [...] [place] | | | | | | [place] [address] | | | | | | [phone] | | | | | | | | +--------+---------+ + + + | 06/04/ | Office | Cardiology | Emely Gabriel, | | | 2018 | Visit | | AMANDA [address] | | | | | | [place] | | | | | | [id number] | | | | | | | [...] the | | ORDERS | | | [place] coronary | results section. | | | | | artery of [place] | | | | | | heart [...] Marge | | | | | | custodial current | | | | | | [...] Hartman MD | | | 06/27/2018 11:09[facility] | | | | | | | | |IMPRESSION: Spirometry is consistent with very severe restrictive | | |physiology. No prior pulmonary function tests available for | | |comparison. | | | | | | | | |Test performed: 06/26/18 | | |Electronically signed by: Antonio Hartman MD 06/27/2018 11:09 | | |[facility] | | + + + in this encounter Visit Diagnoses + + | Diagnosis | + + | Coronary artery disease involving [place] coronary artery of [place] heart without angina | | pectoris | [...] pacemaker in situ | + + | roasterman current use of amiodarone | + + [...] | | | | Nebulization, RT Once, [facility] 06/26/18 | | PDT | | | | | at 1145, For 1 dose, RT will | | | | | | | administer. | | | | | | + +--------+ +--------+------+------+ +---+---+ | | | +---+---+ in this encounter"
--- OUTSIDE RECORDS SUMMARY | ~2018-07-09 | XMS | Encounter Summary ---
Demographics + + + | Address | [address] | | | [place] [address] | + + + | Home Phone | | + + + | Preferred Language | Unknown | + + + | Marital Status | | + + + | Adventist Affiliation | 1061 | + + + | Race | Unknown | + + + | Ethnic Group | Unknown | + + + Author + + + | Author | [facility] | + + + | Organization | [facility] | + + + | Address [...] Team Providers + +------+ + | Care Care Assistant Name | Role | Phone | [...] + | 04/16/ | Documentati | [facility] [place] | Katelin, | Labs Only | | 2018 | on Only | Cardiology [place] | SAMEER Aj | | | | | [address] | | | | | | [place] | | | | | | [address] | | | | | | [phone] | | | +--------+ + + + [...]
--- OUTSIDE RECORDS SUMMARY | ~2018-07-09 | XMS | Encounter Summary ---
Demographics + + + | Address | [address] | | | [place] [address] | + + + | Home Phone | | + + + | Preferred Language | Unknown | + + + | Marital Status | | + + + | Oriental Orthodox Affiliation | Unknown | + + + [...] Team Providers + +------+ + | Care Grocery Store Bagger Name | Role | Phone | + [...] Required | | obstructive | [address] | PULMONOLOGY | | | | | pulmonary | [address] [place] | [address] | | | | | disease, | [facility] [place] | [address] | | | | | unspecified | [address] | [place] | | | | | COPD type | Phone: | [place], [place] | | | | | ([facility]) | [phone] | [address] | | | | | Abnormal PFT | Fax: | Phone: | | | | | | [phone] | [phone] | | | | | | | Fax: | | | | | | | [phone] | + + + + + + + Reason for Visit +---------+ + | Reason | Comments | +---------+ + | Results | | +---------+ + Encounter Details +--------+ + + + + | Date | Type | Department | Care Team | Description | +--------+ + + + + | 07/03/ | Telephone | [facility] [place] | Emely Gabriel, | Results | | 2017 | | CARDIOLOGY [address] | WOOD ENGRAVER [address] | | | | | [address] [place], | [facility] [place] | | | | | [place] [address] | [address] | | | | | [phone] | | | +--------+ + + + [...] [address] | | | | | | [facility], | | | | | | [place] [address] | | | | | | [phone] | | | | | | | | +--------+---------+ + + + | 06/04/ | Office | Cardiology | Emely Gabriel, | | | 2018 | Visit | | [address] | | | | | | [facility] [place] | | | | | | [address] | | | | | | | [...]
--- OUTSIDE RECORDS SUMMARY | ~2018-07-09 | XMS | Clinical Summary ---
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 | | + [...] + | 07/03/ | Telephone | | Emely Gabriel, | Results | | 2017 | | | TOOLROOM MACHINIST | | +--------+ + + + + | 06/26/ | Hospital | | Emely Gabriel, | Coronary artery | | 2017 | Encounter | | TOOLROOM MACHINIST | disease involving | | | | | | chicken ranch coronary | | | | | | artery of chicken ranch | | | | | | heart [...] Bird; | | | | | | outside medical sales representative current | | | | | | use of amiodarone | +--------+ + + + + | 06/05/ | Telephone | | Emely Gabriel, | Results | | 2017 | | | TOOLROOM MACHINIST | | +--------+ + + + + | 06/04/ | Hospital | | Emely Gabriel, | Coronary artery | | 2018 | Encounter | | TOOLROOM MACHINIST | disease involving | | | | | | chicken ranch coronary | | | | | | artery of chicken ranch | | | | | | heart [...] Bird; | | | | | | [facility] current | | | | | | use of amiodarone | +--------+ + + + + | 06/04/ | Office | | Emely Gabriel, | 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) | | | | | | (Primary Dx); | | | | | | Coronary artery | | | | | | disease involving | | | | | | chicken ranch coronary | | | | | | artery of chicken ranch | | | | | | heart [...] Marge; | | | | | | [facility] current | | | | | | [...] | | | | | | [place] [address] | | | | | | [phone] | | | | | | | | +--------+---------+ + + + | 06/04/ | Office | | Emely Gabriel, | | | 2018 | Visit | | AMANDA [address] | | | | | | [place] | | | | | | [address] | | | | | | | [...] | [facility] | | 06/20/ | [id number] | | [id number]: Qty: 1 | | Heart | MEDICAL - | | 2016 | 0M/52 | | on 05/14/2017 by Marge | | | CHRISTOPHER | | | /[id number] | | MD Basia | | | | | | 8427 / | + +------+-------+ +--------+--------+--------+ | Lead Tendril Mri 46cm - | | N/A: | [facility] | | 07/20/ | [id number] | | [id number]: Qty: 1 | | Heart | MEDICAL - | | 2016 | 0M/46 | | on 05/14/2017 by Marge, | | | CHRISTOPHER | | | /[id number] | | MD Basia | | | | | | 3446 / | + +------+-------+ +--------+--------+--------+ | Pacer Assurity Mri Dr Rf - | | N/A: | [facility] | | 08/20/ | [id number] | | [id number]: Qty: 1 on | | Heart | MEDICAL - | | 2017 | | | 05/14/2017 by Marge, | | | CHRISTOPHER | | | /[id number] | | MD Basia | | | [...] the | | ORDERS | | | chicken ranch coronary | results section. | | | | | artery of chicken ranch | | | | | | heart [...] Marge | | | | | | outside medical sales representative current | | | | | | use of amiodarone | | + +--------+ + + + | XR CHEST PA AND | Routin | 06/04/2018 | Coronary artery | Results for this | | LATERAL | e | 0959 PDT | disease involving | procedure are in the | | | | | chicken ranch coronary | results section. | | | | | artery of chicken ranch | | | | | | heart [...] | | | | | | failure ([facility]) | | | | | | Persistent atrial | | | | | | fibrillation ([facility]) | | | | | | Pacemaker | | | | | | reprogramming/check | | | | | | Pacemaker Dual | | | | | | Chamber, MRI | | | | | | compatible, 05/14/17 | | | | | | [facility] Thosuwan | | | | | | outside medical sales representative current | | | | | | use of amiodarone | | + +--------+ + + + | TSH | Routin | 06/04/2018 | Coronary artery | Results for this | | | e | 0926 PDT | disease involving | procedure are in the | | | | | chicken ranch coronary | results section. | | | | | artery of chicken ranch | | | | | | heart [...] in the | | | | | chicken ranch coronary | results section. | | | | | artery of chicken ranch | | | | | | heart [...] in the | | | | | chicken ranch coronary | results section. | | | | | artery of chicken ranch | | | | | | heart [...] | | | | | | fibrillation ([facility]) | | | | | [...] in the | | | | | chicken ranch coronary | results section. 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 | | | | | artery of chicken ranch | | | | | | heart [...] in the | | | | | chicken ranch coronary | results section. | | | | | artery of chicken ranch | | | | | | heart [...] | | performed: 06/26/18Electronically signed by: Antonio aHrtman MD | | | 06/27/2018 11:09[facility] | | | | | | | | |IMPRESSION: Spirometry is consistent with very severe restrictive | | |physiology. No prior pulmonary function tests available for | | |comparison. | | | | | | | | |Test performed: 06/26/18 | | |Electronically signed by: Antonio Hartman MD 06/27/2018 11:09 | | |[facility] | | + + + XR [...] ST. | | | | | [facility] | | | | | CENTER - [...] [address] | [place] | [phone] | | [facility] | | [address] | | | - LABORATORY | | | | + + + + + | [facility] | [address] | [place] | | | [facility] | | [address] | | | - LABORATORY | | | | + + + + + TSH (06/04/2018925) + + + + + | Component | Value | Ref Range | Performed At | + + + + + | TSH | 11.40 (H)Comment: This | 0.45 - 5.33 uIU/mL | [facility] | | | is a third generation | | [facility] | | | TSH test. | | [...] + | [facility] | [address] | [place] | [phone] | | [facility] | | [address] | | | - LABORATORY | | | | + + + + + | [facility] | [address] | [place] | | | [facility] | | [address] | | | - LABORATORY | | | | + + + + + T4, Free (06/04/2018925) + +-------+ + + | Component | Value | Ref Range | Performed At | + +-------+ + + | FT4 | 1.0 | 0.6 - 1.1 ng/dL | [facility] | | | | | [facility] | | | | | CENTER - [...] [address] | [place] | [phone] | | [facility] | | [address] | | | - LABORATORY | | | | + + + + + | [facility] | [address] | [place] | | | [facility] | | [address] | | | - LABORATORY | | | | + + + + + Lipid Panel (06/04/201825) + + + + + | Component | Value | Ref Range | Performed At | + + + + + | Triglycerides | 76 | 35 - 160 mg/dL | [facility] | | | | | [facility] | | | | | CENTER - | | | | | LABORATORY | + + + + + | Cholesterol | 122 (L) | 150 - 200 mg/dL | [facility] | | | | | [facility] | | | | | CENTER - | | | | | LABORATORY | + + + + + | HDL | 48Comment: New HDL | 28 - 83 mg/dL | [facility] | | | Reference Range as of | | [facility] | | | June 30, 2015 | | CENTER - | | | Values may be 10-20% | | LABORATORY | | | lower with new, | | | | | standardized method. | | | + + + + + | Chol/HDL Ratio | 2.5 | | [facility] | | | | | [facility] | | | | | CENTER - | | | | | LABORATORY | + + + + + | LDL, Calculated | 59 | <=130 mg/dL | [facility] | | | | | [facility] | | | | | CENTER - | | | | | LABORATORY | + + + + + + + | Specimen | + + | Blood | + + + + + + + | Performing | Address | City/State/Zipcode | Phone Number | | Organization | | | | + + + + + | [facility] | [address] | [place] | [phone] | | [facility] | | [address] | | | - LABORATORY | | | | + + + + + | [facility] | [address] | [place] | | | [facility] | | [address] | | | - LABORATORY | | [...] ST. | | Serum/Plasma | | | [facility] | | | | | CENTER - | | | | | LABORATORY | + + + + + | eGFR if not | 48 (L)Comment: | >=60 mL/min/1.73m2 | [facility] | | CHINESE | GLOMERULAR FILTRATION | | [facility] | | | RATE,ESTIMATED mL/min | | CENTER - | | | /1.47f4Vlew than 60 | | LABORATORY | | [...] [facility] | | | | | [facility] | | | | | [...] + | [facility] | [address] | [place] | [phone] | | [facility] | | [address] | | | - LABORATORY | | | | + + + + + | [facility] | [address] | [place] | | | [facility] | | [address] | | | - LABORATORY | | [...] BIRD MD | | | | | ([id number]) on 06/05/2018 | | | | | [...] | Emely Gabriel, | PACEART | | TOOLROOM MACHINIST 06/04/2018 15:12 PATIENT NAME: Jacklyn Patel : [...] Coronary artery disease | | | involving chicken ranch coronary artery of chicken ranch heart without angina | | | pectoris [...] T4, Free | | | TSH 8. outside medical sales representative current use of amiodarone Z79.899 V58.69 XR [...] | | | TSH | | |8. outside medical sales representative current use of amiodarone Z79.899 V58.69 XR [...] | | 2. Coronary artery disease involving chicken ranch coronary artery of chicken ranch heart without | | angina pectoris I25.10 [...] CBC no Differential T4, Free TSH 8. [facility] current use of amiodarone Z79.899 | | [...] T4, Free | | TSH | |8. outside medical sales representative current use of amiodarone Z79.899 V58.69 XR [...] | | and remote PDF scanned into [employer] for remote interrogation | | | results. [...] and remote | | PDF scanned into [employer] for remote interrogation results. Data collected by [...] +---------+ | [employer] | VETERA | [id number] | Indemn | | | | | NS | | ity | | | | | ADMIN | | | | | | | [place] | | | | | | | [place] | | | | | + +--------+ +--------+ +---------+ | MEDICARE | MEDICA | [id number] | Medica | [phone]- | | | | RE | | re | [phone] | | | | PART A | | | | | | | AND B | | | | | + +--------+ +--------+ +---------+ | MEDICAID [place] | MEDICA | [id number] | Medica | [phone] | | [...] | | | [address] | [place] [address] | + +--------+ +--------+ + + | JACKLYN PATEL | Chapis | Self [birth year] | Home: | [address] | | | l | | 1935 | [phone] | [address] | | | [place] | | | [address] | [place] [address] | | | es | | | | | + +--------+ +--------+ + +
--- OUTSIDE RECORDS SUMMARY | ~2018-07-09 | XMS | Encounter Summary ---
Demographics + + + | Address | [address] | | | [place] [address] | + + + | Home Phone | | + + + | Preferred Language | Unknown | + + + | Marital Status | | + + + | Christianity Affiliation | Unknown | + + + [...] Team Providers + +------+ + | Care Bill Of Lading Clerk Name | Role | Phone | [...] | 04/20/ | Implant | [facility] [place] | Cruzito Bird, | Remote Device | | 2018 | Monitor | CARDIOLOGY [address] | Interrogation | | | | [place], | [place], | (Primary Dx); | | | | [place] [address] | [place] [address] | Pacemaker Dual | | | | [phone] | [phone] | Chamber, MRI | | | | [...] | | | | | | [place] [address] | | | | | | [phone] | | | | | | | | +--------+---------+ + + + | 06/04/ | Office | Cardiology | Emely Gabriel, | | | 2019 | Visit | | FIRE PILOT [address] | | | | | | St [place], [place] | | | | | | [address] | | | | | | | [...] | documentation and remote PDF scanned into [employer] for remote | | | interrogation results. [...]
--- OUTSIDE RECORDS SUMMARY | ~2018-07-09 | XMS | Clinical Summary ---
Demographics + + + | Address | [address] | | | [place] [address] | + + + | Home Phone | | + + + | Preferred Language | Unknown | + + + | Marital Status | | + + + | Scientologist Affiliation | 1061 | + + + | Race | Unknown | + + + | Ethnic Group | Unknown | + + + Author + + + | Author | [facility] | + + + | Organization | [facility] | + + + | Address | Unknown | + + + | Phone | Unavailable | + + + Support + + +---------+ + | Name | Relationship | Address | Phone | + + +---------+ + | Cassandra Guthrie | ECON | Unknown | | + + +---------+ + | Chrsi Patel | ECON | Unknown | | + + +---------+ + | Bhavna Patel | ECON | Unknown | | + + +---------+ + Care Team Providers + +------+ + | Care Rotary Drill Operator Helper Name | Role | Phone | [...] artery disease involving coronary bypass graft of chalkyitsik | 09/03/2016 | | heart with angina [...] | (DON to LAD)/AVR (#23 SJM).[facility]: | | noLast Cath, 11/14/2004: left [...] | [address] | [place] [address] | | | LABORATORY | 13 | [...] | [address] | [place] [address] | | | LABORATORY | 13 | [...] | [address] | [place] [address] | | | LABORATORY | 13 | [...] | [address] | [place] [address] | | | LABORATORY | 13 | [...] + + | MEDICARE | MEDICA | [id number] | | | [address] | | | RE | | | | [place] [address] | | | IP-OP | | | | | + +--------+ +------+ + + | [place] | [place] | [phone] | | [phone] | FEE SERVICES A136 | | ADMINISTRATION | CHOICE | | | [phone] | [address] | | | | | | [address] [place], [place] | | | | | | | [address] | + +--------+ +------+ + + | MEDICAID | [place] | | | | [address] | | | | | | | [place], [place] | | | FAMILY | | | | [address] | | | CARE | | | | | + +--------+ +------+ + + | MEDICAID | MEDICA | [id number] | | | [address] | | | ID | | | | [place], [place] | | | [place] | | | | [address] | + +--------+ +------+ + + + [...] | | al/Fam | | 1935 | [phone] | | | [place] | | | [address] | [place] [address] | + +--------+ +--------+ + + | JACKLYN PATEL | Vetera | Self | [birth year] | Home: | [address] | | | ns | | 1935 | [phone] | [address] | | | Admini | | | [address] | [place] [address] | | | strati | | | | | | | on | | | | | + +--------+ +--------+ + +
--- OUTSIDE RECORDS SUMMARY | ~2018-07-09 | XMS | Encounter Summary ---
Demographics + + + | Address | [address] | | | [place] [address] | + + + | Home Phone | | + + + | Preferred Language | Unknown | + + + | Marital Status | | + + + | Baptist Affiliation | Unknown | + + + | Race | Unknown | + + + | Ethnic Group | Unknown | + + + Author + + + | Author | [facility] | | | and [place] | + + + | Organization | [facility] | | [...] Team Providers + +------+ + | Care Box Press Operator Name | Role | Phone [...] + + | 04/21/ | Telephone | [facility] | Cruzito Bird, | Appointment | | 2017 | | CARDIOLOGY [address] [place] | | | | | [place], | [place], | | | | | [place] [address] | [place] [address] | | | | | [phone] | [phone] | | | | | | | [...] [place] | | | | | | [place] [address] | | | | | | [phone] | | | | | | | | +--------+---------+ + + + | 06/04/ | Office | Cardiology | Emely Gabriel, | | | 2018 | Visit | | [address] | | | | | | [place] | | | | | | [address] | | | | | | | | +--------+---------+ + + + as of this encounter Visit Diagnoses Not on filein this encounter"
--- OUTSIDE RECORDS SUMMARY | ~2018-07-09 | XMS | Encounter Summary ---
Demographics + + + | Address | [address] | | | [place] [address] | + + + | Home Phone | | + + + | Preferred Language | Unknown | + + + | Marital Status | | + + + | Mu-Ism Affiliation | 1061 | + + + | Race | Unknown | + + + | Ethnic Group | Unknown | + + + Author + + + | Author | [facility] [employer] | + + + | Organization | [facility] [employer] | + + + | Address [...] Team Providers + +------+ + | Care Middle School Assistant Principal Name | Role | Phone [...] [place], | | | | | [place] [address] | [place] [address] | | | | | [place] [address] | [phone] | | | | | [phone] | | | +--------+---------+ + + + [...]
--- OUTSIDE RECORDS SUMMARY | ~2018-07-09 | XMS | Encounter Summary ---
Demographics + + + | Address | [address] | | | [place] [address] | + + + | Home Phone | | + + + | Preferred Language | Unknown | + + + | Marital Status | | + + + | Moravian Affiliation | 1061 | + + + | Race | Unknown | + + + | Ethnic Group | Unknown | + + + Author + + + | Author | [employer] | + + + | Organization | [facility] | + + + | Address [...] Team Providers + +------+ + | Care Worm Farm Laborer Name | Role | Phone | + [...] [place] | | | | | | [address] | | | | | | [phone] | | | +--------+ + + + [...] | [address] | [place] [address] | | | LABORATORY | 13 | [...] | [address] | [place] [address] | | | LABORATORY | 13 | [...] | [address] | [place] [address] | | | LABORATORY | 13 | [...] | [address] | [place] [address] | | | LABORATORY | 13 | | | + + + + + in this encounter Visit Diagnoses Not on filein this encounter"
--- OUTSIDE RECORDS SUMMARY | ~2018-07-09 | XMS | Encounter Summary ---
Demographics + + + | Address | [address] | | | [place] [address] | + + + | Home Phone | | + + + | Preferred Language | Unknown | + + + | Marital Status | | + + + | Confucianist Affiliation | Unknown | + + + [...] Team Providers + +------+ + | Care Revenue Enforcement Agent Name | Role | Phone | [...] | Visit | CARDIOLOGY [address] | TWISTING FRAME FIXER [address] | pablo syndrome (HCC) | | | | [place], | [place], [place] | (Primary Dx); | | | | [place] [address] | [address] | Coronary artery | | | | [phone] | | disease involving | | | | | | bear river coronary | | | | | | artery of bear river | | | | | | heart [...] Bird; | | | | | | residential [...] you for pulmonary function tests, either at [facility], or here if the y can't do the correct test. 4. Continue with your home pacemaker monitoring with [employer]. 5. Return in 1 year for office visit and device interrogation, or sooner with concerns.in t his encounter Progress Notes AbhijitalidaEmely TWISTING FRAME FIXER - 06/04/2018 0815 PDTFormatting of this note [...] regimen. He would continue with his [employer] [place] remote device monitoring. Since that time, he was at [facility]'s ER for dehydration and so he has been careful to drink Gatorade, Essentia wate r and milk to stay hydrated ever since then. He has had a fair energy level. He tries to stay active. He enjoys shopping in his spare ti [employer]. 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 LAB RESULTS reviewed during visit today primarily from [facility]: LIPID No results found for: [...] as well as emergency department visit from [facility]. DEVICE INTERROGATION Device interrogation is ordered and performed during this visit. Refer to scanned P[employer] documentation and device PDF in Bi[employer] for interrogation (with programming changes) performed during [...] Y.O.(2) and Vascula r disease (1). His [id number] score is 4, which gives an estimated [...] He is in class II of the Braxton Heart Association functional class. 4. 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 [facility] [...] this chart may have been created with [employer] voice recognition software. Occasi onal wrong-word or [...] | | | | | | [place] [address] | | | | | | [phone] | | | | | | | | +--------+---------+ + + + | 06/04/ | Office | Cardiology | Emely Gabriel, | | | 2018 | Visit | | AMANDA [address] | | | | | | [place] | | | | | | [address] | | | | | | | [...] in the | | | | | bear river coronary | results section. | | | | | artery of bear river | | | | | | heart [...] in the | | | | | bear river coronary | results section. | | | | | artery of bear river | | | | | | heart [...] | | | | | | fibrillation ([facility]) | | | | | | Pacemaker [...] in the | | | | | bear river coronary | results section. | | | | | artery of bear river | | | | | | heart [...] in the | | | | | bear river coronary | results section. | | | | | artery of bear river | | | | | | heart [...] in the | | | | | bear river coronary | results section. | | | | | artery of bear river | | | | | | heart [...] in the | | | | | bear river coronary | results section. | | | | | artery of bear river | | | | | | heart [...] MD | | | 06/27/2018 11:09[facility] | | | | | | | | |IMPRESSION: Spirometry is consistent with very severe restrictive | | |physiology. No prior pulmonary function tests available for | | |comparison. | | | | | | | | |Test performed: 06/26/18 | | |Electronically signed by: Antonio Hartman MD 06/27/2018 11:09 | | |[facility] | | + + + XR [...] | is a third generation | | [facility] | | | TSH test. | [...] [address] | [place] | [phone] | | [facility] | | [address] | | | - LABORATORY | | | | + + + + + | [facility] | [address] | [place] | | | [facility] | | [address] | | | - LABORATORY | | | | + + + + + T4, Free (06/04/2018925) + +-------+ + + | Component | Value | Ref Range | Performed At | + +-------+ + + | FT4 | 1.0 | 0.6 - 1.1 ng/dL | [facility] | | | | | [facility] | | | | | CENTER - | | | | | LABORATORY | + +-------+ + + + + | Specimen | + + | Blood | + + + + + + + | Performing | Address | City/State/Zipcode | Phone Number | | Organization | | | | + + + + + | [facility] | [address] | [place], [place] | [phone] | | [facility] | | [address] | | | - LABORATORY | | | | + + + + + | [facility] | [address] | [place], [place] | | | [facility] | | [address] | | | - LABORATORY | | [...] [address] | | | | | [facility] | | | | | CENTER [...] [address] | [place] | [phone] | | [facility] | | [address] | | | - LABORATORY | | | | + + + + + | [facility] | [address] | [place] | | | [facility] | | [address] | | | - LABORATORY | | | | + + + + + Lipid Panel (06/04/2018924) + + + + + | Component | Value | Ref Range | Performed At | + + + + + | Triglycerides | 76 | 35 - 160 mg/dL | [facility] | | | | | [facility] | | | | | CENTER - | | | | | LABORATORY | + + + + + | Cholesterol | 122 (L) | 150 - 200 mg/dL | [facility] | | | | | [facility] | | | | | CENTER - | | | | | LABORATORY | + + + + + | HDL | 48Comment: New HDL | 28 - 83 mg/dL | [facility] | | | Reference Range as of | | [facility] | | | June 30, 2015 | | CENTER - | | | Values may be 10-20% | | LABORATORY | | | lower with new, | | | | | standardized method. | | | + + + + + | Chol/HDL Ratio | 2.5 | | [facility] | | | | | [facility] | | | | | CENTER - | | | | | LABORATORY | + + + + + | LDL, Calculated | 59 | <=130 mg/dL | [facility] | | | | | [facility] | | | | | CENTER [...] + | [facility] | [address] | [place] | [phone] | | [facility] | | [address] | | | - LABORATORY | | | | + + + + + | [facility] | [address] | [place] | | | [facility] | | [address] | | | - LABORATORY | | [...] ST. | | Serum/Plasma | | | [facility] | | | | | CENTER - | | | | | LABORATORY | + + + + + | eGFR if not | 48 (L)Comment: | >=60 mL/min/1.73m2 | [facility] | | [place] | GLOMERULAR FILTRATION | | [facility] | | | RATE,ESTIMATED mL/min | | CENTER - | | | /1.59u5Hgae than 60 | | LABORATORY | | [...] [facility] | | | | | [facility] | | | | | [...] [address] | [place] | [phone] | | [facility] | | [address] | | | - LABORATORY | | | | + + + + + | [facility] | [address] | [place] | | | [facility] | | [address] | | | - LABORATORY | | [...] BIRD MD | | | | | ([id number]) on 06/05/2018 | | | | | [...] | Emely Gabriel, | PACEART | | TWISTING FRAME FIXER 06/04/2018 15:12 PATIENT NAME: Johnny Siddiqi : [...] Coronary artery disease | | | involving bear river coronary artery of bear river heart without angina | | | pectoris [...] T4, Free | | | TSH 8. terminal carman current use of amiodarone Z79.899 V58.69 XR [...] | | | TSH | | |8. residential current use of amiodarone Z79.899 V58.69 XR [...] | | 2. Coronary artery disease involving bear river coronary artery of bear river heart without | | angina pectoris I25.10 [...] CBC no Differential T4, Free TSH 8. residential current use of amiodarone Z79.899 | | [...] Free | | TSH | |8. terminal carman current use of amiodarone Z79.899 V58.69 XR [...] + + | Coronary artery disease involving bear river coronary artery of bear river heart without angina | | pectoris | [...] pacemaker in situ | + + | residential current use of amiodarone | + +
--- OUTSIDE RECORDS SUMMARY | ~2018-07-09 | XMS | Encounter Summary ---
Demographics + + + | Address | [address] | | | [place] [address] | + + + | Home Phone | | + + + | Preferred Language | Unknown | + + + | Marital Status | | + + + | Christian Affiliation | Unknown | + + + [...] | + + +---------+ + | Johnny Siddqii Jr | ECON | Unknown | | [...] Team Providers + +------+ + | Care Truck Spotter Name | Role | Phone | + [...] + + | 06/05/ | Telephone | [facility] | Emely Gabriel, | Results | | 2017 | | CARDIOLOGY [address] | CNC MANUFACTURING ENGINEER [address] | | | | | [place], | [place] | | | | | [place] [address] | [address] | | | | | [phone] | | | +--------+ + + + [...] [address] | | | | | | [place], | | | | | | [place] [address] | | | | | | [phone] | | | | | | | | +--------+---------+ + + + | 06/04/ | Office | Cardiology | Emely Gabriel, | | | 2018 | Visit | | AMANDA [address] | | | | | | [facility] [place] | | | | | | [id number] | | | | | | | [...]
--- OUTSIDE RECORDS SUMMARY | ~2018-07-09 | XMS | Clinical Summary ---
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 angina pectoris | | + [...] Results | | 2017 | | | VICE PRESIDENT OF BUSINESS DEVELOPMENT | | +--------+ + + + + | 06/26/ | Hospital | | Emely Gabriel, | Coronary artery | | 2017 | Encounter | | VICE PRESIDENT OF BUSINESS DEVELOPMENT | disease involving | | | | | | bill moore's slough coronary | | | | | | artery of bill moore's slough | | | | | | heart [...] Bird; | | | | | | long term care administrator current | | | | | | use of amiodarone | +--------+ + + + + | 06/05/ | Telephone | | Emely Gabriel, | Results | | 2017 | | | VICE PRESIDENT OF BUSINESS DEVELOPMENT | | +--------+ + + + + | 06/04/ | Hospital | | Emely Gabriel, | Coronary artery | | 2018 | Encounter | | VICE PRESIDENT OF BUSINESS DEVELOPMENT | disease involving | | | | | | bill moore's slough coronary | | | | | | artery of [place] mo[place] slough | | | | | | heart [...] Bird; | | | | | | USP current | | | | | | use of amiodarone | +--------+ + + + + | 06/04/ | Office | | Emely Gabriel, | 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) | | | | | | (Primary Dx); | | | | | | Coronary artery | | | | | | disease involving | | | | | | bill moore's slough coronary | | | | | | artery of bill moore's slough | | | | | | heart [...] Marge; | | | | | | USP current | | | | | | [...] | | | | | | [place] [address] | | | | | | [phone] | | | | | | | | +--------+---------+ + + + | 06/04/ | Office | | Emely Gabriel, | | | 2018 | Visit | | AMANDA [address] | | | | | | [place] | | | | | | [address] | | | | | | | [...] | [facility] | | 06/20/ | [id number] | | [id number]: Qty: 1 | | Heart | MEDICAL - | | 2016 | 0M/52 | | on 05/14/2017 by Marge | | | CHRISTOPHER | | | /[id number] | | MD Basia | | | | | | 8427 / | + +------+-------+ +--------+--------+--------+ | Lead Tendril Mri 46cm - | | N/A: | [facility] | | 07/20/ | [id number] | | [id number]: Qty: 1 | | Heart | MEDICAL - | | 2016 | 0M/46 | | on 05/14/2017 by Marge, | | | CHRISTOPHER | | | /[id number] | | MD Basia | | | | | | 3446 / | + +------+-------+ +--------+--------+--------+ | Pacer Assurity Mri Dr Rf - | | N/A: | [facility] | | 08/20/ | [id number] | | [id number]: Qty: 1 on | | Heart | MEDICAL - | | 2017 | | | 05/14/2017 by Marge, | | | CHRISTOPHER | | | /[id number] | | MD Basia | | | [...] the | | ORDERS | | | bill moore's slough coronary | results section. | | | | | artery of bill moore's slough | | | | | | heart [...] Marge | | | | | | long term care administrator current | | | | | | use of amiodarone | | + +--------+ + + + | XR CHEST PA AND | Routin | 06/04/2018 | Coronary artery | Results for this | | LATERAL | e | 0959 PDT | disease involving | procedure are in the | | | | | [place] moore's slough coronary | results section. | | | | | artery of bill moore's slough | | | | | | heart [...] | | | | | | failure ([facility]) | | | | | | Persistent atrial | | | | | | fibrillation ([facility]) | | | | | | Pacemaker | | | | | | reprogramming/check | | | | | | Pacemaker Dual | | | | | | Chamber, MRI | | | | | | compatible, 05/14/17 | | | | | | St Rupert Thosuwan | | | | | | long term care administrator current | | | | | | use of amiodarone | | + +--------+ + + + | TSH | Routin | 06/04/2018 | Coronary artery | Results for this | | | e | 0926 PDT | disease involving | procedure are in the | | | | | [place] moore's slough coronary | results section. | | | | | artery of bill moore's slough | | | | | | heart [...] in the | | | | | bill moore's slough coronary | results section. | | | | | artery of bill moore's slough | | | | | | heart [...] in the | | | | | bill moore[place] slough coronary | results section. | | | | | artery of bill moore's slough | | | | | | heart [...] | | | | | | fibrillation ([facility]) | | | | | | Pacemaker [...] in the | | | | | [place] slough coronary | results section. 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 | | | | | artery of bill moore's slough | | | | | | heart [...] in the | | | | | bill moore's slough coronary | results section. 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 No prior pulmonary function tests available for | | |comparison. | | | | | | | | |Test performed: 06/26/18 | | |Electronically signed by: Antonio Hartman MD 06/27/2018 11:09 | | |[facility] | | + + + [...] [facility] | | | | | [facility] | | | | | [...] [address] | [place] | [phone] | | [facility] | | [address] | | | - LABORATORY | | | | + + + + + | [facility] | [address] | [place] | | | [facility] | | [address] | | | - LABORATORY | | | | + + + + + TSH (06/04/2018925) + + + + + | Component | Value | Ref Range | Performed At | + + + + + | TSH | 11.40 (H)Comment: This | 0.45 - 5.33 uIU/mL | [facility] | | | is a third generation | | [facility] | | | TSH test. [...] + | [facility] | [address] | [place] | [phone] | | [facility] | | [address] | | | - LABORATORY | | | | + + + + + | [facility] | [address] | [place] | | | [facility] | | [address] | | | - LABORATORY | | | | + + + + + T4, Free (06/04/2018925) + +-------+ + + | Component | Value | Ref Range | Performed At | + +-------+ + + | FT4 | 1.0 | 0.6 - 1.1 ng/dL | [facility] | | | | | [facility] | | | | | [...] [address] | [place] | [phone] | | [facility] | | [address] | | | - LABORATORY | | | | + + + + + | [facility] | [address] | [place] | | | [facility] | | [address] | | | - LABORATORY | | | | + + + + + Lipid Panel (06/04/201825) + + + + + | Component | Value | Ref Range | Performed At | + + + + + | Triglycerides | 76 | 35 - 160 mg/dL | [facility] | | | | | [facility] | | | | | CENTER - | | | | | LABORATORY | + + + + + | Cholesterol | 122 (L) | 150 - 200 mg/dL | [facility] | | | | | [facility] | | | | | CENTER - | | | | | LABORATORY | + + + + + | HDL | 48Comment: New HDL | 28 - 83 mg/dL | [facility] | | | Reference Range as of | | [facility] | | | June 30, 2015 | | CENTER - | | | Values may be 10-20% | | LABORATORY | | | lower with new, | | | | | standardized method. | | | + + + + + | Chol/HDL Ratio | 2.5 | | [facility] | | | | | [facility] | | | | | CENTER - | | | | | LABORATORY | + + + + + | LDL, Calculated | 59 | <=130 mg/dL | [facility] | | | | | [facility] | | | | | [...] + | [facility] | [address] | [place] | [phone] | | [facility] | | [address] | | | - LABORATORY | | | | + + + + + | [facility] | [address] | [place] | | | [facility] | | [address] | | | - LABORATORY | | [...] ST. | | Serum/Plasma | | | [facility] | | | | | CENTER - | | | | | LABORATORY | + + + + + | eGFR if not | 48 (L)Comment: | >=60 mL/min/1.73m2 | [facility] | | SUDANESE | GLOMERULAR FILTRATION | | [facility] | | | RATE,ESTIMATED mL/min | | CENTER - | | | /1.98y5Jcsv than 60 | | LABORATORY | | [...] [facility] | | | | | [facility] | | | | | CENTER [...] + | [facility] | [address] | [place] | [phone] | | [facility] | | [address] | | | - LABORATORY | | | | + + + + + | [facility] | [address] | [place] | | | [facility] | | [address] | | | - LABORATORY | | [...] BIRD MD | | | | | ([id number]) on 06/05/2018 | | | | | [...] | Emely Gabriel, | PACEART | | VICE PRESIDENT OF BUSINESS DEVELOPMENT 06/04/2018 15:12 PATIENT NAME: Jacklyn Patel : [...] Coronary artery disease | | | involving bill moore's slough coronary artery of bill moore's slough heart without angina | | | pectoris [...] | | | TSH 8. long term care administrator current use of amiodarone Z79.899 V58.69 XR [...] | | | TSH | | |8. long term care administrator current use of amiodarone Z79.899 V58.69 XR [...] | | 2. 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 USP current use of amiodarone Z79.899 | | [...] | | TSH | |8. long term care administrator current use of amiodarone Z79.899 V58.69 XR [...] | | and remote PDF scanned into InVisM for remote interrogation | | | results. [...] and remote | | PDF scanned into [employer]M for remote interrogation results. Data collected by [...] +---------+ | [employer] | [employer] | [id number] | Indemn | | | | | NS | | ity | | | | | ADMIN | | | | | | | [place] | | | | | | | [place] | | | | | + +--------+ +--------+ +---------+ | MEDICARE | MEDICA | [id number] | Medica | [phone]- | | | | RE | | re | [phone] | | | | PART A | | | | | | | AND B | | | | | + +--------+ +--------+ +---------+ | MEDICAID [place] | MEDICA | [id number] | Medica | [phone] | | [...] | | | [address] | [place] [address] | + +--------+ +--------+ + + | JACKLYN PATEL | Chapis | Self [birth year] | Home: | [address] | | | l | | [phone] | [phone] | [address] | | | [place]i | | | [address] | [place] [address] | | | es | | | | | + +--------+ +--------+ + +
--- OUTSIDE RECORDS SUMMARY | ~2018-07-09 | XMS | Encounter Summary ---
Demographics + + + | Address | [address] | | | [place] [address] | + + + | Home Phone | | + + + | Preferred Language | Unknown | + + + | Marital Status | | + + + | Latter-Day Affiliation | 1061 | + + + | Race | Unknown | + + + | Ethnic Group | Unknown | + + + Author + + + | Author | [employer] | + + + | Organization | [facility] [employer] | + + + | Address [...] Team Providers + +------+ + | Care Wind Energy Mechanic Name | Role | Phone | + [...] [place], | | | | | [place] [address] | [place] [id number] | | | | | [place] [address] | [phone] | | | | | [phone] | | | +--------+---------+ + + + [...]
--- OUTSIDE RECORDS SUMMARY | ~2018-07-09 | XMS | Encounter Summary ---
Demographics + + + | Address | [address] | | | [place] [address] | + + + | Home Phone | | + + + | Preferred Language | Unknown | + + + | Marital Status | | + + + | Rastafarian Affiliation | Unknown | + + + [...] Team Providers + +------+ + | Care Supervisor Heat Treating Name | Role | Phone | + [...] Required | | obstructive | [address] | PULMONOLOGY | | | | | pulmonary | St [place] | [address] | | | | | disease, | [facility] [place] | [address] | | | | | unspecified | [address] | [place] | | | | | COPD type | Phone: | [place], [place] | | | | | ([facility]) | [phone] | [address] | | | | | Abnormal PFT | Fax: | Phone: | | | | | | [phone] | [phone] | | | | | | | Fax: | | | | | | | [phone] | + + + + + + + Reason for Visit +---------+ + | Reason | Comments | +---------+ + | Results | | +---------+ + Encounter Details +--------+ + + + + | Date | Type | Department | Care Team | Description | +--------+ + + + + | 07/03/ | Telephone | [facility] [place] | Emely Gabriel, | Results | | 2017 | | CARDIOLOGY [address] | BODY PRESS OPERATOR [address] | | | | | [address] [place], | [facility] [place] | | | | | [place] [address] | [address] | | | | | [phone] | | | +--------+ + + + [...] [address] | | | | | | [facility], | | | | | | [place] [address] | | | | | | [phone] | | | | | | | | +--------+---------+ + + + | 06/04/ | Office | Cardiology | Emely Gabriel, | | | 2018 | Visit | | [address] | | | | | | [facility] [place] | | | | | | [id number] | | | | | | | [...]
--- OUTSIDE RECORDS SUMMARY | ~2018-07-09 | XMS | Encounter Summary ---
Demographics + + + | Address | [address] | | | [place] [address] | + + + | Home Phone | | + + + | Preferred Language | Unknown | + + + | Marital Status | | + + + | Confucianism Affiliation | Unknown | + + + [...] Team Providers + +------+ + | Care Gate Watchman Name | Role | Phone | + [...] + + | 04/21/ | Telephone | [facility] | Cruzito Bird, | Appointment | | 2017 | | CARDIOLOGY [address] | [address] [place] | | | | | [place], | [place], | | | | | [place] [address] | [place] [address] | | | | | [phone] | [phone] | | | | | | | [...] [place] | | | | | | [place] [address] | | | | | | [phone] | | | | | | | | +--------+---------+ + + + | 06/04/ | Office | Cardiology | Emely Gabriel, | | | 2018 | Visit | | [address] | | | | | | [place] | | | | | | [address] | | | | | | | | +--------+---------+ + + + as of this encounter Visit Diagnoses Not on filein this encounter"
[~2018-07-09 12:50] MED LIST changes: +COUMADIN5 MG PO; +METOPROLOL TART50 MG PO; +STOOL SOFTENER100 MG PO; -STOOL SOFTENER250 MG PO; -TOPROL XL25 MG PO; +TRAZODONE HCL100 MG PO; -TRAZODONE HCL50 MG PO; +ZOFRAN ODT4 MG PO
--- OUTSIDE RECORDS SUMMARY | 2018-07-09 12:54 | XMS ---
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 Care History Medical/Surgical 02/12/2018 [facility] Care Recommendation: This patient has had 5 or more Emergency Department visits in the last 12 months. Patient requires education on the scope and purpose of the ED as an acute care provider not a Primary Care Provider and should not be utilized for chronic conditions. If patient returns to ED please contact Community Health WorkerAnamaria at [phone]. These are guidelines and the provider should exercise clinical judgment when providing care. E.D. VISIT COUNT (12 MO.) [address] [facility] [address] [facility] TOTAL 2 NOTE: Visits indicate total known visits. ED/UCC VISIT TRACKING (12 MO.) 07/09/2018 12:50 [facility] [place] TYPE: Emergency COMPLAINT: - SOB 02/11/2018 14:07 [facility] [place] TYPE: Emergency COMPLAINT: - NAUSEA/VOMITING DIAGNOSES: - shelter (current) use of anticoagulants - Essential (primary) hypertension - Other watermelon inspector (current) drug therapy - Nausea with vomiting, unspecified - Hyperlipidemia, unspecified - Hyperkalemia INPATIENT VISIT TRACKING (12 MO.) No inpatient visits to display in this time frame [email or web address]
[2018-07-09] MEDS ORDERED: COZAAR25 MG PO (18:01)
[2018-07-09] MEDS ORDERED: ARICEPT10 MG PO (18:02)
[2018-07-09] MEDS ORDERED: PACERONE200 MG PO (18:04)
[2018-07-09] MEDS ORDERED: LASIX40 MG PO (18:07)
--- NOTE | 2018-07-09 18:21 | NUR ---
MED REC COMPLETE
--- NOTE | 2018-07-09 18:39 | NUR ---
PATIENT ATTEMPTED TO GET UP OOB WITH NO ASSIST, PATIENT NEEDS BED ALARM PLACED ON HIM AT ALL TIMES.
--- NOTE | 2018-07-09 19:16 | NUR ---
RECEIVED REPORT FROM SAMEER ADRIAN. PT SITTING AT EDGE OF BED, REQUESTED TO USE RESTROOM. SBA WITH FWW TO RESTROOM TO VOID X1. ORAL HYGIENE COMPLETE, RETURNED TO BED. 2 L OXYGEN VIA NC. 1800 FLUID RESTRICTION, CARDIAC DIET. BED ALARM ON, SCD'S IN PLACE. CALL LIGHT IN REACH.
--- NOTE | 2018-07-09 20:29 | NUR ---
ASSESSMENT COMPLETE. PT LAYING IN BED, AWAKE. PM MEDICATIONS ADMINISTERED. COARSE LUNG SOUNDS THROUGHOUT ALL LOBES, PRODUCTIVE COUGH. REDDNESS NOTED UNDER PANNUS. ROOM AIR, SATURATIONS WNL. SCD'S IN PLACE. BED ALARM ON, CALL LIGHT IN REACH. 2+ PITTING EDEMA, RIGHT LOWER EXTREMITY, 1+ PITTING EDEMA LEFT LOWER EXTREMITY.
--- NOTE | 2018-07-09 22:24 | NUR ---
HELPED PATIENT USE THE BEDSIDE COMMODE. PATIENT VOIDED AND HAD BOWEL MOVEMENT WELL. PATIENT IS BACK IN BED. BED ALARM ON. CALL LIGHT AND BEDSIDE TABLE WITHIN REACH.
--- NOTE | 2018-07-09 22:33 | NUR ---
IN ROOM TO CHECK ON PT. PT ASLEEP. BREATHING EVEN AND UNLABORED, CALL LIGHT IN REACH, SCD'S AND BED ALARM ON.
--- NOTE | 2018-07-10 00:17 | NUR ---
ANSWERED CALL LIGHT. PT REQUESTED TO USE RESTRROM. SBA WITH FWW TO RESTROOM TO VOID X1. RETURNED TO BED. SCD'S ON, BED ALARM ON, CALL LIGHT IN REACH. WARM BLANKET GIVEN.
--- NOTE | 2018-07-10 03:02 | NUR ---
CALL LIGHT ANSWERED. 1 PERSON ASSIST WITH FWW TO RESTROOM TO VOID, RETURNED TO BED. ASSESSMENT COMPLETE. PT ON ROOM AIR, SATURATIONS WNL. PITTING EDEMA IN BILATERAL LOWER EXTREMITIES, REDNESS TO BILATERAL LOWER EXTREMITIES. COARSE LUNG SOUNDS THROUGHOUT, DIMINISHED IN BASES. WARM BLANKET GIVEN PER PT REQUEST, SCD'S IN PLACE. BED ALARM ON, CALL LIGHT IN REACH.
--- NOTE | 2018-07-10 05:57 | NUR ---
SATURATIONS WNL ON ROOM AIR. PITTING EDEMA IN BILATERAL LOWER EXTREMITIES. SBA AND FWW TO RESTROOM. 1800 FLUID RESTRICTION, CARDIAC DIET. SCD'S IN PLACE. DAILY WEIGHT. IV SALINE LOCKED. USES CALL LIGHT APPROPRIATELY.
--- NOTE | 2018-07-10 08:03 | NUR ---
report received from manager shift nurse. pt appers to be sleeping. sl. respirations equal and nonlabored.
--- NOTE | 2018-07-10 08:40 | NUR ---
ORDERED HIS BREAKFAST HE WASHED HIS FACE. HE WAS ALSO USING HIS IS MACHINE.
--- NOTE | 2018-07-10 11:00 | NUR ---
SBA TO BATHROOM. VOIDED 300. BACK TO CHAIR. LEGS ELEVATED. WARM BLANKET PROVIDED. SCD'S IN PLACE. DENIES NEEDS AT THIS TIME. CALL LIGHT IN REACH.
--- NOTE | 2018-07-10 11:14 | NUR ---
NO SHOWER BUT HE SAID HE WOULD DO A BED BATH BECAUSE HE SAID HE DOESN'T LIKE TO BE COLD.
--- NOTE | 2018-07-10 14:20 | NUR ---
CARDIAC NURSE IN TO SEE PT. SBA TO BATHROOM. VOIDED 400ML. BACK TO CHAIR. TOLERATED WELL. DENIES FURTHER NEEDS.
--- NOTE | 2018-07-10 16:48 | NUR ---
Certified Heart Failure Nurse Notes: Diagnosis:CHF EXACERBATION with h/o AVR,CABG. Echo 2017 HFpEF PCP:Antonio Paulino MD at [facility] ordered NA 125, K4.7, Cr 1.22, BNP 580 Admit Wt.:204 lb. Social support system: Daughter is a nurse that lives in [place]. Son sets up patient's pill and provides transporation to medical appointments Weight monitoring: Does not weigh daily due to scales present in home are unsafe and he can't keep balance on them. Instructions given on how to weigh daily/ when to notify PCP. Medline scales given to patient to take home for daily use. 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 Currently most meals come from [employer]. Does not use table salt and states he avoids potassium. Rarely eats out. Likes fish sandwiches without bun or sauce. Usual physical activity: Not discussed at this initial meeting Medication routine: Son sets up meds weekly. Meds from [facility]. Discussed his avoidance of furosemide. Smoking cessation:NA Advanced directive: Not discussed at this initial meeting. Recommendations: Documented ambulation oxygen saturations prior to discharge. Absence of orthostatic hypotension. Follow-up plans: Will call patient after discharge and set up an outpatient education session to focus on early symptom recognition and low sodium diet.
--- NOTE | 2018-07-10 18:33 | NUR ---
PT HAD GREAT DAY. LUNGS STILL COARSE. 1+ PITTING EDEMA BILAT LE. SOMEWHAT SOB WITH AMBULATION BUT PT REPORTS IMPROVING. GREAT U/O. 1800 FLUID RESTRICTION. DAILY WEIGHT,
--- NOTE | 2018-07-10 19:58 | NUR ---
BEDSIDE REPORT RECEIVED FROM RN KAYLAH. PT BACK IN BED AFTER VOID WITH SBA FWW, SCDS IN PLACE. PT ON ROOM AIR, DENIES NEEDS AT THIS TIME, CALL LIGHT IN REACH. BED ALARM IN PLACE.
--- NOTE | 2018-07-10 20:39 | NUR ---
VITALS AND I&OS DONE AND CHARTED. WARM BLANKET GIVEN BEDSIDE TABLE AND CALL LIGHT IN REACH.
--- NOTE | 2018-07-10 21:06 | NUR ---
PT ASSESSMENT COMPLETE. PT ORIENTED X 4, LYING IN BED, LUNGS DIMINISHED, COARSENESS BILATERALLY IN BASES. 2+ PITTING EDEMA RLE, 1+ PITTING EDEMA LLE, SENSATION INTACT, STRONG PEDAL PULSES. IV SALINE LOCKED WNL. SCDS ON. CALL LIGHT IN REACH, BED ALARM ON.
--- NOTE | 2018-07-10 21:07 | EKG ---
[facility] [address] [place] [address] Signed Atrial-paced rhythm with prolonged AV conduction Left axis deviation Left bundle branch block Abnormal ECG When compared with ECG of 11-FEB-2018 16:11, No significant change was found Confirmed by DORA ALEXANDRE DO ([id number]) on 07/10/2018 9:07:40 PM Electronically Signed By: DORA ALEXANDRE DO 07/10/18 2107 PATIENT NAME: JACKLYN PATEL Electrocardiogram DATE OF : 31 PHYSICIAN: DORA ALEXANDRE DO REPORT #: [id number] REPORT IS CONFIDENTIAL AND NOT TO BE RELEASED WITHOUT AUTHORIZATION
--- NOTE | 2018-07-10 21:50 | NUR ---
CHARGE NURSE ROUNDING NOTE: UP TO BRP WITH ONE PERSON ASSIST AND FWW. VOIDED LARGE AMOUNTS OF CLEAR YELLOW URINE, BACK TO BED, SCDS IN PLACE, NO C/O P;AIN, TOLERATED WELL.
--- NOTE | 2018-07-10 23:20 | NUR ---
CHECKED ON PT, APPEARS TO BE SLEEPING, SCDS ON, BED ALARM IN PLACE. BREATHING IS NON-LABORED.
--- NOTE | 2018-07-11 01:31 | NUR ---
IN ROOM TO ASSESS PT, APPEARS TO BE SLEEPING, EYES CLOSED RR 18. BED ALARM ON.
--- NOTE | 2018-07-11 03:02 | NUR ---
HELPED PT TO THE BATHROOM AND BACK TO BED WITH HIS FWW. BEDSIDE TABLE AND CALL LIGHT IN REACH. BED ALARM SET.
--- NOTE | 2018-07-11 03:05 | NUR ---
SBA WITH FWW FROM RESTROOM TO BED. LUNGS CLEAR BILATERALLY UPPER LOBES, DIMINIESHED WITH FINE CRACKLES BILATERALLY LOWER LOBES. PT LYING IN BED, SCDS ON. EDEMA IMPROVED BLE, PITTING EDEMA BILATERALLY 1+ RLE, MINIMAL EDEMA LLE. BED ALARM ON, CALL LIGHT IN REACH. WARM BLANKET PROVIDED.
--- NOTE | 2018-07-11 05:30 | NUR ---
VITALS AND I&OS DONE AND CHARTED. HELPED PT TO THE BATHROOM AND BACK TO BED WITH HIS FWW. SCD'S AND BED ALARM PUT BACK ON. BEDSIDE TABLE AND CALL LIGHT IN REACH.
--- NOTE | 2018-07-11 05:33 | NUR ---
PT USING CALL LIGHT PRIOR TO GETTING OUT OF BED FOR QS VOIDS, OUT OF BED BEFORE NURSING STAFF IN ROOM ON OCCASION. SCDS IN PLACE WHILE IN BED. EDEMA IMPROVED BILATERALLY LOWER EXTREMITIES, 1+ PITTING EDEMA BILATERALLY, RIGHT LOWER EXTREMITY MORE EDEMETOUS THAN LEFT. LUNGS CLEAR WITH SOME COARSENESS BILATERALLY LOWER LOBES ON AUSCULTATION.
--- NOTE | 2018-07-11 06:48 | NUR ---
PT SLEEPING, AWAKENS TO VOICE FOR SCHEDULED MEDICATION ADMINISTRATION. PT GIVEN ALLOTTED ICE WATER. CALL LIGHT IN REACH, BED ALARM SET.
--- NOTE | 2018-07-11 07:33 | NUR ---
RECEIVED REPORT FROM PHARMACY PICKING TECH NURSE. PT APPEARS TO BE SLEEPING. SL AT THIS TIME. RESPIRATIONS ARE EQUAL AND NONLABORED. SCD;S IN PLACE. CALL LIGHT IN REACH.
--- NOTE | 2018-07-11 10:20 | NUR ---
PT OOB WITH PT. TOLERATING WELL. WALKED LAP AND TO PT ROOM. BACK TO BED. ASSESSMENT COMPLETED. LUNDS DIM. HEART CLICK. +1 EDEMA BILAT LE. SCD'S IN PLACE. LE WARM WITH DISCOLORATION. BOWEL TONES ACTIVE.
--- NOTE | 2018-07-11 12:00 | NUR ---
PT UP IN TAE. DENIES NEEDS. SCD'S IN PLACE. CALL LIGHT IN REACH.
--- NOTE | 2018-07-11 16:49 | NUR ---
DID 3 LAPS WITH PATIENT AROUND MED SURG.
--- NOTE | 2018-07-11 18:50 | NUR ---
GREAT DAY. PLAN FOR DC TOMORROW. SCD'S, TEDHOSE. LUNGS DIM. 1999 FLUID RESTRICTION, DAILY WEIGHT.
--- NOTE | 2018-07-11 20:00 | NUR ---
RECEIVED REPORT AT 1900, FOUND PT SITTING IN CHAIR. PT HAD NO NEEDS OR CONCERNS AT THAT TIME.
--- NOTE | 2018-07-11 22:00 | NUR ---
V/S ARE WDL, UPPER LOBES ARE CLEAR, LOWER LOBES HAVE FINE CRACKLES.
--- NOTE | 2018-07-12 | NUR ---
PT IS SLEEPING AT THIS TIME.
--- NOTE | 2018-07-12 00:15 | NUR ---
RESEARCH LIBRARIAN ROUNDING, PT LYING IN BED WITH EYES CLOSED. PT APPEARS TO BE SLEEPING, CALL LIGHT WITHIN REACH.
--- NOTE | 2018-07-12 02:00 | NUR ---
PT APPEARS TO BE SLEEPING AT THIS TIME.
--- NOTE | 2018-07-12 06:35 | NUR ---
PT SLEPT MOST OF THIS SHIFT. LOWER LOBES SOUND COARSE, UPPER LOBES ARE CLEAR BUT AT TIMES DIMINISHED. BILATERAL LOWER LEG EDEMA IS +1. 2000ML FLUID RESTRICRTION WAS FOLLOWED. URINE OUTPUT IS ADEQUATE. V/S SO FAR ARE WDL. THERE ARE NO NEW CONCERNS THAT HAVE DEVELOPED THIS SHIFT FOR THIS PT.
--- NOTE | 2018-07-12 07:56 | NUR ---
RECIEVED REPORT FROM APPLE PRESS OPERATOR NURSE. PT UP TO SIDE OF BED. SL AT THIS TIME. DENIES NEEDS. CALL LIGHT IN REACH.
--- NOTE | 2018-07-12 08:44 | NUR ---
Patient up in chair, dentures in, breakfast ate, will recheck soon
[2018-07-12] MEDS ORDERED: NYSTOP60 GM TOP (09:15)
== END 2018-07-12 10:15 | disposition home or self-care (01) ==
LOC: ED 12:50 → MS 12:51
PROVIDERS: ADMIT Student in an Organized Health Care Education/Training Program
DX: I13.0 Hypertensive heart and chronic kidney disease with heart failure and stage 1 through stage 4 chronic kidney disease, or unspecified chronic kidney disease (principal); I50.33 Acute on chronic diastolic (congestive) heart failure; N18.3 Chronic kidney disease, stage 3 (moderate); I48.0 Paroxysmal atrial fibrillation; J44.9 Chronic obstructive pulmonary disease, unspecified; I25.10 Atherosclerotic heart disease of native coronary artery without angina pectoris; H91.90 Unspecified hearing loss, unspecified ear; E78.5 Hyperlipidemia, unspecified; K70.30 Alcoholic cirrhosis of liver without ascites; M10.9 Gout, unspecified; M54.5 Low back pain; G89.29 Other chronic pain; E66.9 Obesity, unspecified; G47.9 Sleep disorder, unspecified; Z91.14 Patient's other noncompliance with medication regimen; Z95.0 Presence of cardiac pacemaker; Z95.2 Presence of prosthetic heart valve; Z95.1 Presence of aortocoronary bypass graft; Z79.01 Long term (current) use of anticoagulants; Z79.51 Long term (current) use of inhaled steroids; Z79.899 Other long term (current) drug therapy; Z68.34 Body mass index [BMI] 34.0-34.9, adult
CPT/HCPCS: 36415; 71045; 80048; 80053; 81001; 83735; 83880; 84484; 85025; 85610; 93005; 93010; 94640; 94668; 96374; 96376; 97110; 97116; 97162; 97165; 99285; G0378; G8978; G8979

== ENCOUNTER 2018-11-01 10:15 | Emergency (ER) | payer MEDICARE, OTHER ==
[~2018-11-01] VITALS: Ht 167.6 cm; Wt 90.9 kg
[~2018-11-01 10:15] MED LIST changes: +ARICEPT10 MG PO; +COZAAR25 MG PO; +LASIX40 MG PO; +PACERONE200 MG PO
--- OUTSIDE RECORDS SUMMARY | 2018-11-01 10:20 | XMS ---
PreManage Notification: JACKLYN PATEL Security Physician Events No recent Security Events currently on file CRITERIA MET - Group Notification - PDMP CARE PROVIDERS ALBERTO NICHOLSON Family [facility] Current PHONE: Unknown SAIMA ANDERSON Pediatrics 07/10/2018-Current PHONE: Unknown DR SAIMA ANDERSON Primary Care Current PHONE: [phone] Alberto Nicholson DO Treatment Current PHONE: Unknown Rikki has no Care Guidelines for this patient. Care History Medical/Surgical 02/12/2018 [facility] Care Recommendation: This patient has had 5 or more Emergency Department visits in the last 12 months. Patient requires education on the scope and purpose of the ED as an acute care provider not a Primary Care Provider and should not be utilized for chronic conditions. If patient returns to ED please contact Community Health WorkerAnamaria at [phone]. These are guidelines and the provider should exercise clinical judgment when providing care. E.D. VISIT COUNT (12 MO.) 3 [facility]. TOTAL 3 NOTE: Visits indicate total known visits. 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 [place] TYPE: Medical Surgical COMPLAINT: - CHF EXACERBATION DIAGNOSES: - long-term (current) use of anticoagulants - Paroxysmal atrial fibrillation - Heart failure, unspecified - Hyperlipidemia, unspecified - Presence of cardiac pacemaker - Presence of aortocoronary bypass graft - Chronic kidney disease, stage 3 (moderate) - Obesity, unspecified - Patient's other noncompliance with medication regimen - Sleep disorder, unspecified - Other chronic pain - lobsterman (current) use of inhaled steroids - Body mass index (BMI) 34.0-34.9, adult - Chronic obstructive pulmonary disease, unspecified - Other snf (current) drug therapy - Gout, unspecified - Unspecified hearing loss, unspecified ear - Hypertensive heart and chronic kidney disease with heart failure and stage 1 through stage 4 chronic kidney disease, or unspecified chronic kidney disease - Atherosclerotic heart disease of [place] coronary artery without angina pectoris - Low back pain - Presence of prosthetic heart valve - Acute on chronic diastolic (congestive) heart failure - Alcoholic cirrhosis of liver without ascites [email or web address]
[2018-11-01] MEDS ORDERED: COLCRYS0.6 MG PO (12:24)
[2018-11-01] MEDS ORDERED: DELTASONE20 MG PO (12:24)
== END 2018-11-01 12:42 | disposition home or self-care (01) ==
LOC: ED 10:15
DX: M10.9 Gout, unspecified (principal); E78.5 Hyperlipidemia, unspecified; I11.0 Hypertensive heart disease with heart failure; I50.9 Heart failure, unspecified; E66.9 Obesity, unspecified; Z79.01 Long term (current) use of anticoagulants; Z79.899 Other long term (current) drug therapy
CPT/HCPCS: 36415; 73130; 80053; 83605; 84550; 85025; 85651; 96374; 99283-25; J1885; J7512

== ENCOUNTER 2018-12-08 13:53 | Emergency (ER) | payer MEDICARE, OTHER ==
[~2018-12-08] VITALS: Ht 167.6 cm; Wt 94.3 kg
[~2018-12-08 13:53] MED LIST changes: +COLCRYS0.6 MG PO; +DELTASONE20 MG PO
--- OUTSIDE RECORDS SUMMARY | 2018-12-08 13:58 | XMS ---
PreManage Notification: JACKLYN PATEL Security Veneer Jointer Returner Events No recent Security Events currently on file CRITERIA MET - Group Notification - [facility] - Has Care [facility] CARE PROVIDERS Colette Bryant Paver Installer/Tool Pusher 07/23/2017-Current PHONE: [phone] ALBERTO NICHOLSON [facility] Current PHONE: Unknown Eddi Rivera Paver Installer/Tool Pusher 07/23/2017-Current PHONE: [phone] SAIMA ANDERSON 07/10/2018-Current PHONE: Unknown Eddi Rivera Primary Care 07/23/2017-Current PHONE: [phone] DR SAIMA ANDERSON Primary Care Current PHONE: [phone] Alberto Nicholson DO Treatment Current PHONE: Unknown Rikki has no Care Guidelines for this patient. Care History Medical/Surgical 02/12/2018 [facility] Care Recommendation: This patient has had 5 or more Emergency Department visits in the last 12 months. Patient requires education on the scope and purpose of the ED as an acute care provider not a Primary Care Provider and should not be utilized for chronic conditions. If patient returns to ED please contact Community Health WorkerAnamaria at [phone]. These are guidelines and the provider should exercise clinical judgment when providing care. E.D. VISIT COUNT (12 MO.) 4 [facility] TOTAL 4 NOTE: Visits indicate total known visits. 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 - Obesity, unspecified - Other care home (current) drug therapy - Gout, unspecified - Hypertensive heart disease with heart failure - Heart failure, unspecified 07/09/2018 12:50 [facility] TYPE: Emergency COMPLAINT: - SOB 02/11/2018 14:07 [facility] TYPE: Emergency COMPLAINT: - NAUSEA/VOMITING DIAGNOSES: - intermediate (current) use of anticoagulants - Essential (primary) hypertension - Other care home (current) drug therapy - Nausea with vomiting, unspecified - Hyperlipidemia, unspecified - Hyperkalemia INPATIENT VISIT TRACKING (12 MO.) 07/09/2018 12:51 [facility] TYPE: Medical Surgical COMPLAINT: - CHF EXACERBATION DIAGNOSES: - intermediate (current) use of anticoagulants - Paroxysmal atrial fibrillation - Heart failure, unspecified - Hyperlipidemia, unspecified - Presence of cardiac pacemaker - Presence of aortocoronary bypass graft - Chronic kidney disease, stage 3 (moderate) - Obesity, unspecified - Patient's other noncompliance with medication regimen - Sleep disorder, unspecified - Other chronic pain - corporate controller (current) use of inhaled steroids - Body mass index (BMI) 34.0-34.9, adult - Chronic obstructive pulmonary disease, unspecified - Other hand iii cutter (current) drug therapy - Gout, unspecified - Unspecified hearing loss, unspecified ear - Hypertensive heart and chronic kidney disease with heart failure and stage 1 through stage 4 chronic kidney disease, or unspecified chronic kidney disease - Atherosclerotic heart disease of [place] coronary artery without angina pectoris - Low back pain - Presence of prosthetic heart valve - Acute on chronic diastolic (congestive) heart failure - Alcoholic cirrhosis of liver without ascites [email or web address]
[2018-12-08] MEDS ORDERED: ZITHROMAX250 MG PO (18:04)
--- NOTE | 2018-12-09 20:15 | EKG ---
[facility] [address] [place] [address] Signed Atrial-paced rhythm When compared with ECG of 09-JUL-2018 13:05, No significant change was found Confirmed by GERI ELLISON MD ([id number]) on 12/09/2018 8:15:38 PM Electronically Signed By: GERI ELLISON MD 12/09/182014 PATIENT NAME: JACKLYN PATEL Electrocardiogram DATE OF : 31 PHYSICIAN: GERI ELLISON MD REPORT #: [id number] REPORT IS CONFIDENTIAL AND NOT TO BE RELEASED WITHOUT AUTHORIZATION
== END 2018-12-08 18:30 | disposition home or self-care (01) ==
LOC: ED 13:53
DX: J98.8 Other specified respiratory disorders (principal); I13.0 Hypertensive heart and chronic kidney disease with heart failure and stage 1 through stage 4 chronic kidney disease, or unspecified chronic kidney disease; N18.9 Chronic kidney disease, unspecified; I50.9 Heart failure, unspecified; E78.5 Hyperlipidemia, unspecified; E66.9 Obesity, unspecified; Z91.040 Latex allergy status; Z79.899 Other long term (current) drug therapy
CPT/HCPCS: 70450; 71046; 80053; 84484; 85025; 85610; 93005; 93010; 99284-25

== ENCOUNTER 2018-12-28 16:12 | Inpatient (IN) | payer MEDICARE, OTHER ==
[~2018-12-28] VITALS: Ht 167.6 cm; Wt 79.1 kg
--- OUTSIDE RECORDS SUMMARY | ~2018-12-28 | XMS | Clinical Summary ---
Demographics + + + | Address | [address] | | | [place] [address] | + + + | Home Phone | | + + + | Preferred Language | Unknown | + + + | Marital Status | | + + + | Scientologist Affiliation | 1061 | + + + | Race | Unknown | + + + | Ethnic Group | Unknown | + + + Author + + + | Author | [facility] | | | and [place] | + + + | Organization | [facility] | | | and [place] | + + + | Address | Unknown | + + + | Phone | Unavailable | + + + Support + + +---------+ + | Name | Relationship | Address | Phone | + + +---------+ + | Jacklyn Patel Jr | ECON | Unknown | | + + +---------+ + | Cassandra Benitez | ECON | NA | | | | | NA, | | + + +---------+ + | Rl Patel | ECON | Unknown | | + + +---------+ + | Chris Patel | ECON | Unknown | | + + +---------+ + | Cassandra Guthrie | ECON | Unknown | | + + +---------+ + Care Team Providers + +------+ + | Care Carbonizer Tester Name | Role | Phone | + +------+ + | Antonio Paulino MD | PP | | + +------+ + Allergies + + + + + + | Active Allergy | Reactions | Severity | Noted | Comments | | | | | Date | | + + + + + + | Latex | Rash | Low | 04/01/20 | | | | | | 15 | | + + + + + + Current Medications + + +--------+---------+------+------+-------+ | Prescription | Sig. | Disp. | Refills | Star | End | Statu | | | | | | t | Date | s | | | | | | Date | | | + + +--------+---------+------+------+-------+ | albuterol 90 | Inhale 2 puffs into | | | | | Activ | | mcg/puff inhaler | the lungs 3 times | | | | | e | | | daily as needed for | | | | | | | | Wheezing. | | | | | | + + +--------+---------+------+------+-------+ | levothyroxine | Take 25 mcg by mouth | | | | | Activ | | (SYNTHROID, | every morning | | | | | e | | LEVOTHROID) 25 mcg | (before breakfast). | | | | | | | tablet | | | | | | | + + +--------+---------+------+------+-------+ | traZODone | Take 50 mg by mouth | | | | | Activ | | (DESYREL) 50 mg | nightly as needed | | | | | e | | tablet | for Sleep. | | | | | | + + +--------+---------+------+------+-------+ | artificial tears | Place 1 drop into | | | | | Activ | | (REFRESH PLUS) 0.5% | both eyes 4 times | | | | | e | | SOLN | daily as needed (for | | | | | | | | dry eyes). | | | | | | + + +--------+---------+------+------+-------+ | ferrous sulfate | Take 325 mg by mouth | | | | | Activ | | 325 mg tablet | daily (with | | | | | e | | | breakfast). Patient | | | | | | | | takes three times | | | | | | | | weekly on Sat, | | | | | | | | Fri | | | | | | + + +--------+---------+------+------+-------+ | nitroglycerin | Place 1 tablet under | | | | | Activ | | (NITROSTAT) 0.4 mg | the tongue every 5 | | | | | e | | SL tablet | minutes as [...] | pain | | | | | | + + +--------+---------+------+------+-------+ | benzonatate | Take 100 mg by mouth | | | | | Activ | | (TESSALON) 100 mg | Twice daily as | | | | | e | | capsule | needed for Cough. | | | | | | + + +--------+---------+------+------+-------+ | lisinopril | Take 10 mg by mouth | | | | | Activ | | (PRINIVIL, ZESTRIL) | Daily. | | | | | e | | 10 mg tablet | | | | | | | + + +--------+---------+------+------+-------+ | | Inhale 2 puffs into | | | | | Activ | | budesonide-formotero | the lungs 2 times | | | | | e | | l (SYMBICORT) | daily. | | | | | | | 160-4.5 mcg/puff | | | | | | | | inhaler | | | | | | | + + +--------+---------+------+------+-------+ | | Take 5 mLs by mouth | | | | | Activ | | guaiFENesin-codeine | every 6 hours as | | | | | e | | (ROBITUSSIN AC) | needed for Cough. | | | | | | | 100-10 mg/5 mL | | | | | | | | liquid | | | | | | | + + +--------+---------+------+------+-------+ | nystatin | Apply topically 3 | | | | | Activ | | (MYCOSTATIN) cream | times daily as | | | | | e | | | needed (for fungal | | | | | | | | infection). | | | | | | + + +--------+---------+------+------+-------+ | donepezil | Take 5 mg by mouth. | | | | | Activ | | (ARICEPT) 10 MG | | | | | | e | | tablet | | | | | | | + + +--------+---------+------+------+-------+ | skin emollient | Apply topically. | | | | | Activ | | (EUCERIN CALMING | | | | | | e | | DAILY MOIST) cream | | | | | | | + + +--------+---------+------+------+-------+ | furosemide (LASIX) | Take 1 tablet by | 60 | 2 | 07/2 | | Activ | | 40 mg tablet | mouth 2 times daily. | tablet | | /20 | | e | | | | | | 17 | | | + + +--------+---------+------+------+-------+ | doxycycline | Take 100 mg by mouth | | | | | Activ | | (VIBRAMYCIN) 100 mg | 2 times daily. | | | | | e | | capsule | | | | | | | + + +--------+---------+------+------+-------+ | | Take 1 tablet by | | | | | Activ | | HYDROcodone-acetamin | mouth 3 times daily | | | | | e | | ophen (NORCO) 5-325 | as needed for Pain. | | | | | | | mg per tablet | | | | | | | + + +--------+---------+------+------+-------+ | warfarin | Take 5 mg by mouth. | | | | | Activ | | (COUMADIN) 6 MG | In the evening on | | | | | e | | tablet | even days Managed by | | | | | | | | the V.A | | | | | | + + +--------+---------+------+------+-------+ | ondansetron | Take 4 mg by mouth | | | | | Activ | | (ZOFRAN ODT) 4 mg | every 4 hours as | | | | | e | | disintegrating | needed for Nausea. | | | | | | | tablet | | | | | | | + + +--------+---------+------+------+-------+ | bisacodyl | Place 10 mg rectally | | | | | Activ | | (DULCOLAX) 10 mg | as needed for | | | | | e | | suppository | Constipation. | | | | | | + + +--------+---------+------+------+-------+ | desonide (DESOWEN) | Apply 1 Units | | | | | Activ | | 0.05% cream | topically. | | | | | e | + + +--------+---------+------+------+-------+ | fenofibrate | Take 145 mg by mouth | | | | | Activ | | (TRICOR) 145 mg | Daily. | | | | | e | | tablet | | | | | | | + + +--------+---------+------+------+-------+ | magnesium oxide | Take 400 mg by mouth | | | | | Activ | | (MAG-OX) 400 mg | Daily. | | | | | e | | tablet | | | | | | | + + +--------+---------+------+------+-------+ | terbinafine | Apply 1 Units | | | | | Activ | | (LAMISIL) 1% cream | topically. | | | | | e | + + +--------+---------+------+------+-------+ | atorvaSTATin | Take 1 tablet by | 90 | 3 | 10/1 | | Activ | | (LIPITOR) 20 mg | mouth nightly. | tablet | | 1/20 | | e | | tablet | | | | 18 | | | + + +--------+---------+------+------+-------+ | metoprolol | Take 1 tablet by | 90 | 3 | 10/1 | | Activ | | succinate | mouth Daily. | tablet | | 5/20 | | e | | (TOPROL-XL) 50 mg 24 | | | | 18 | | | | hr tablet | | | | | | | + + +--------+---------+------+------+-------+ | colchicine 0.6 mg | take 1 tablet by | | 0 | 01/1 | | Activ | | tablet | mouth once daily | | | 2/20 | | e | | | | | | 19 | | | + + +--------+---------+------+------+-------+ Active Problems + + + | Problem | Noted Date | + + + | Pacemaker reprogramming/check | 05/14/2017 | + + + | Pacemaker Dual Chamber, MRI compatible, 05/14/17 [facility] Rud[facility]esha | 05/14/2017 | + + + + + | Overview: Formatting of this note may be different from the | | original. MODEL NAME MODEL# SERIAL# DATE IMPLANTED GENERATOR St | | Rupert Assurity MRI [id number] 05/14/[address] [facility] Tendril | | MRI [id number] 05/14/[address] [facility] Tendril MRI | | [id number] 05/14/17 Indication: Tachycardia-Bradycardia | | Syndrome. | + + + + + | Tachycardia-bradycardia syndrome (HCC) | 05/13/2017 | + + + + + | Overview: Successful permanent pacemaker (dual chamber St. | | Rupert) implantation on 05/14/2017. | + + + + + | CRUZITO (obstructive sleep apnea) | 03/16/2016 | + + + | Persistent atrial fibrillation (HCC) | 03/16/2016 | + + + + + | Overview: Last Assessment & Plan: Persistent atrial | | fibrillation, currently in sinus rhythm. Anticoagulated, | | warfarin, managed by [facility]. Denies any new visual disturbances, | | dysarthria, dysphasia, lateralizing signs or symptoms. No | | significant bleeding or bruising reported.Lab, 07/31/2016: INR: | | 2.0, WBC: 10.2, H/H: 12.8/40.1, plt: 222 | + + + + + | Wound of left leg | 03/16/2016 | + + + | Venous stasis of both lower extremities | 03/16/2016 | + + + | Hard of hearing | 03/16/2016 | + + + | Over-anticoagulated | 04/01/2015 | + + + | Acute renal failure (ARF) ([facility]) | 04/01/2015 | + + + | Anemia | 04/01/2015 | + + + | S/P CABG x 1 | 11/16/2004 | + + + + + | Overview: Overview: | | DON > LAD | + + + + + | Status post mechanical aortic valve replacement | 11/16/2004 | + + + + + | Overview: Overview: | | #[address] [facility] WALKER | + + + +---+ | H/O aortic valve replacement | | + +---+ + + | Overview: [facility] AVR INR goal is 2-3 | + + + +---+ | Essential hypertension | | + +---+ | Liver cirrhosis (HCC) | | + +---+ | Dementia | | + +---+ | Alcoholic cirrhosis (HCC) | | + +---+ + + | Overview: CT scan 2004 at [facility] | + + + +---+ | Coronary artery disease involving [place] coronary artery of | | | [place] heart without angina pectoris | | + +---+ + + | Overview: [facility] 11/14/2004 shows preserved left ventricular | | systolic function, critical aortic stenosis, severe one-vessel | | coronary artery disease. CABG x1 (DON to LAD)/AVR (#23 | | SJM),prosthetic valve stable, endocarditis prophylaxis reinforced | | on 11/16/2004.Echocardiogram 04/01/2015 shows mild biatrial | | dilatation, normal left ventricular size, wall thickness and | | motion, preserved left ventricular systolic function, LVEF is | | 65-70%, grade 1 left ventricular diastolic dysfunction, normally | | functioning mechanical bileaflet aortic valve replacement, mildly | | thickened and calcified mitral valve with a mild mitral valve | | regurgitation, mild mitral annular calcification, mild tricuspid | | valve regurgitation, moderate pulmonary hypertension with a peak | | systolic pressure of 55-60 mmHg, normal IVC with normal | | respiratory collapse, no previous echocardiography for | | comparison.Echocardiogram 01/30/2017 shows overall left | | ventricular systolic function is normal with, an EF between 65 - | | 70 %, pseudonormal LV diastolic filling pattern, consistent with | | elevated LA pressure and moderate dysfunction (Grade II), right | | ventricle is normal in size and function, there is mild bi-atrial | | enlargement, normally functioning mechanical prosthetic aortic | | valve, there is mild pulmonary hypertension. Echocardiogram | | 02/28/2017 shows mild biatrial dilatation, normal left ventricular | | size with a mild concentric left ventricular hypertrophy, left | | ventricular systolic function is preserved. LVEF is 70%, normal | | right ventricular cavity with normal wall thickness and a mildly | | reduced right ventricular systolic function, normal functioning | | mechanical aortic valve replacement, mildly thickened and | | calcified mitral valve with adequate opening, mild to moderate | | mitral annular calcification, mild pulmonary hypertension with a | | peak systolic pressure of 45-50 mmHg, normal IVC with normal | | respiratory collapse.Echocardiogram 05/13/2017 shows mild biatrial | | dilatation, normal left ventricular size with a mild concentric | | left ventricular hypertrophy, left ventricular systolic function | | is preserved. LVEF is55-60%, evidence of a paradoxical septal | | motion, normal right ventricular size and wall thickness with a | | mildly decreased right ventricular systolic function, normally | | functioning mechanical bileaflet aortic valve replacement, mildly | | thickened and calcified mitral valve with adequate opening, | | there is a mild mitral valve regurgitation, mild mitral annular | | calcification, moderate pulmonary hypertension with a peak | | systole pressure of 65-70 mmHg, dilated IVC without respiratory | | collapse suggesting fluid retention, when compared to | | echocardiography on 02/28/17, pulmonary hypertension is slightly | | worsened and patient appeared to be fluid overloaded on this | | study. | + + + +---+ | Pulmonary HTN (HCC) | | + +---+ + + | Overview: Severe on Echo 2014 | + + + +---+ | Chronic diastolic congestive heart failure (HCC) | | + +---+ + + | Overview: Echo 2014 EF 68, ascites, pulm HTN | + + Resolved Problems + + + + | Problem | Noted | Resolved | | | Date | Date | + + + + | Atrial fibrillation with RVR ([facility]) | 03/19/20 | | | | 16 | 7 | + + + + | Acute on chronic diastolic (congestive) heart failure | 03/16/20 | | | | 16 | 7 | + + + + Encounters +--------+ + + + + | Date | Type | Specialty | Care Team | Description | +--------+ + + + + | 12/23/ | Office | | [facility] Bird, | Chronic diastolic | | 2018 | Visit | | MD | congestive heart | | | | | | failure (HCC) | | | | | | (Primary Dx); | | | | | | 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); | | | | | | Persistent atrial | | | | | | fibrillation (HCC) | +--------+ + + + + | 12/17/ | Telephone | | Cruzito Bird, | Lab Order (Pt due | | 2018 | | | MD | for labs prior to | | | | | | appt ) | +--------+ + + + + | 10/19/ | Implant | | Cruzito Bird, | Remote Device | | 2017 | Monitor | | MD | Interrogation | | | | | | (Primary Dx); | | | | | | Pacemaker Dual | | | | | | Chamber, MRI | | | | | | compatible, 05/14/17 | | | | | | [facility]; | | | | | | Tachycardia-bradycar | | | | | | palbo syndrome (HCC) | +--------+ + + + + from Last 3 Months Immunizations + + + + | Name | Dates Previously Given | Next Due | + + + + | INFLUENZA 63 Y OR >, | 07/20/2017 | | | TRIVALENT HIGH-DOSE | | | + + + + Family History + + +------+ + | Medical History | Relation | Name | Comments | + + +------+ + | Heart disease | Father | | | + + +------+ + + +------+ + + | Relation | Name | Status | Comments | + +------+ + + | Father | | | | + +------+ + + | Mother | | | | + +------+ + + | Sister | | Alive | | + +------+ + + Social History + +-------+ +--------+------+ [...] on file | | + + + Last Filed Vital Signs + + + + | Vital Sign | Reading | Time Taken | + + + + | Blood Pressure | 130/68 | 12/23/2018 1356 PST | + + + + | Pulse | 60 | 12/23/2018 1356 PST | + + + + | Temperature | 36.3 C (97.3 F) | 05/16/2017 1109 PDT | + + + + | Respiratory Rate | 18 | 12/23/2018 1356 PST | + + + + | Oxygen Saturation | 99% | 06/19/2017 1021 PDT | + + + + | Inhaled Oxygen | - | - | | Concentration | | | + + + + | Weight | 85.3 kg (188 lb 0.8 | 12/23/20181355 PST | | | oz) | | + + + + | Height | 167.6 cm (5' 6") | 12/23/20181355 PST | + + + + | Body Mass Index | 30.35 | 12/23/20181355 PST | + + + + Plan of Treatment +--------+ + + + + | Date | Type | Specialty | Care Team | Description | +--------+ + + + + | 01/18/ | Implant | | Cruzito Bird, | Remote Device | | 2018 | Monitor | | MD [address] | Interrogation | | | | | 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 [address] | | | | | | [place], [place] | | | | | | [address] | | | | | | | | +--------+ + + + + + + + + + | Health Maintenance | Due Date | Last Done | Comments | + + + + + | Vaccine: | | | | | Dtap/Tdap/Td (1 - | 2 | | | | Tdap) | | | | + + + + + | Vaccine: Zoster (1 | | | | | of 2) | 3 | | | + + + + + | Vaccine: | | | | | Pneumococcal 65+ | 8 | | | | High/Highest Risk (1 | | | | | of 2 - PCV13) | | | | + + + + + | Adult Annual | | | | | Wellness Visit | 5 | | | + + + + + | Vaccine: Influenza | Completed | 06/27/2018, 07/20/2017 | | + + + + + Implants + +------+-------+ +--------+--------+--------+ | Implanted | Type | Area | Manufacture | Device | Expira | Model | | | | | r | | tion | / | | | | | | Identi | Date | Serial | | | | | | fier | | / Lot | + +------+-------+ +--------+--------+--------+ | Lead Tendril Mri 52cm - | | N/A: | [facility] | | 06/20/ | [id number] | | [id number]: Qty: 1 | | Heart | MEDICAL - | | 2017 | [id number] | | on 05/14/2017 by Marge, | | | CHRISTOPHER | | | /[id number] | | MD [facility] | | | | | | [id number] / | + +------+-------+ +--------+--------+--------+ | Lead Tendril Mri 46cm - | | N/A: | [facility] | | 07/20/ | [id number] | | [id number]: Qty: 1 | | Heart | MEDICAL - | | 2016 | [id number] | | on 05/14/2017 by Marge, | | | CHRISTOPHER | | | /[id number] | | MD [facility] | | | | | | [id number] / | + +------+-------+ +--------+--------+--------+ | Pacer Assurity Mri Dr Rf - | | N/A: | [facility] | | 08/20/ | [id number] | | [id number]: Qty: 1 on | | Heart | MEDICAL - | | 2017 | | | 05/14/2017 by Marge, | | | STJU | | | /[id number] | | MD [facility] | | | | | | 01 / | + +------+-------+ +--------+--------+--------+ Procedures + +--------+ + + + | Procedure Name | Priori | Date/Time | Associated Diagnosis | Comments | | | ty | | | | + +--------+ + + + | DEVICE | Routin | 11/10/2018 | Remote Device | Results for this | | INTERROGATION- | e | 0000 PST | Interrogation | procedure are in the | | REMOTE | | | Pacemaker Dual | results section. | | | | | Chamber, MRI | | | | | | compatible, 05/14/17 | | | | | | [facility] [place] | | | | | | 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) | | + +--------+ + + + | DEVICE INTERROGATION | | 10/21/2018 | | Results for this | | - EXTERNAL SCAN | | 0000 PST | | procedure are in the | | | | | | results section. | + +--------+ + + + | DEVICE | Routin | 10/19/2018 | Remote Device | Results for this | | INTERROGATION- | e | 2359 PST | Interrogation | procedure are in the | | REMOTE | | | Pacemaker Dual | results section. | | | | | Chamber, MRI | | | | | | compatible, 05/14/17 | | | | | | [facility] [place] | | | | | | 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) | | + +--------+ + + + from Last 3 Months Results Device Interrogation - Remote (11/10/2018)Only the most recent of 2 results within the time period is included. + + + | Narrative | Performed At | + + + | [facility] | KAREN | | MD Marge 10/24/2018 13:35Date of Remote Interrogation: | | | 10/21/18 Refer to [facility] documentation and remote PDF scanned into [employer] | | | for remote interrogation results. Data collected by [facility] | | | SAMEER FENTON Presenting rhythm: atrial paced ventricular sensed with | | | rate at 61-100 beats. 0 mode switch episodes accounting for 0% of the | | | time.0 atrial high rate episodes. 0 ventricular high rate episodes. | | | 44,000 PVC singles 44,000 PVC singles/month0 PVC | | | runs 0 PVC runs/monthHistogram good | | | Battery longevity 10.2-10.5 years.Apparent normal and stable device | | | function.Device interrogation due in office in 06/04/2019Son notified, | | | he denies symptoms on behalf of patient. | | |44,000 PVC singles 44,000 PVC singles/month | | |0 PVC runs 0 PVC runs/month | | |Histogram good Battery longevity 10.2-10.5 years. | | |Apparent normal and stable device function. | | |Device interrogation due in office in 06/04/2019 | | |Son notified, he denies symptoms on behalf of patient. | | | | | | | | + + + + + | Procedure Note | + + | Cruz[facility] Bird MD - 01/18/2019 7169 PDT Date of Remote Interrogation: 10/21/18Refer | | to [facility] documentation and remote PDF scanned into [facility] for remote interrogation | | results. Data collected by BATSHEVA GROVEresenting rhythm: atrial paced | | ventricular sensed with rate at 61-100 beats. 0 mode switch episodes accounting for 0% | | of the time.0 atrial high rate episodes. 0 ventricular high rate episodes. 44,000 PVC | | singles 44,000 PVC singles/month0 PVC runs 0 PVC runs/monthHistogram good | | Battery longevity 10.2-10.5 years.Apparent normal and stable device function.Device | | interrogation due in office in 06/04/2019Son notified, he denies symptoms on behalf of | | patient. | |0 PVC runs 0 PVC runs/month | |Histogram good Battery longevity 10.2-10.5 years. | |Apparent normal and stable device function. | |Device interrogation due in office in 06/04/2019 | |Son notified, he denies symptoms on behalf of patient. | + + + +---------+ + + | Performing | Address | City/State/Zipcode | Phone Number | | Organization | | | | + +---------+ + + | [facility] | | | | + +---------+ + + DEVICE INTERROGATION - EXTERNAL SCAN (10/21/2018) + + + | Narrative | Performed At | + + + | Ordered by an | | | unspecified provider. | | + + + from Last 3 Months Insurance + +--------+ +--------+ +---------+ | Payer | Benefi | Subscriber | Type | Phone | Address | | | t Plan | ID | | | | | | / | | | | | | | Group | | | | | + +--------+ +--------+ +---------+ | MEDICARE | MEDICA | [id number] | Medica | [phone] | | | RE | | re | [phone] | | | | PART A | | | | | | | AND B | | | | | + +--------+ +--------+ +---------+ | [employer] | MODA | [id number] | Medica | +- | | | MEDICAID HMO | HEALTH | | id | [id number] | | | | MDCD | | | | | | | [place] | | | | | + +--------+ +--------+ +---------+ | [employer] | V[employer] | [id number] | Indemn | | | | | NS | | ity | | | | | ADMIN | | | | | | | [place] | | | | | | [place] | | | | | + +--------+ +--------+ +---------+ + +--------+ +--------+ + + | Guarantor Name | Accoun | Relation to | Date | Phone | Billing Address | | | t Type | Patient | of | | | | | | | | | | + +--------+ +--------+ + + | JACKLYN PATEL | Person | Self [birth year] | Home: | [address] | | | al/Fam | | [phone] | [phone] | | | [place] | | | [phone] | [place] [address] | + +--------+ +--------+ + + | JACKLYN PATEL | Specia | Self | [birth year] | Home: | [address] | | | l | | [phone] | [phone] | | | Servic | | | [phone] | [place] [address] | | | es | | | | | + +--------+ +--------+ + +
--- OUTSIDE RECORDS SUMMARY | ~2018-12-28 | XMS | Encounter Summary ---
Demographics + + + | Address | [address] | | | [place] [address] | + + + | Home Phone | | + + + | Preferred Language | Unknown | + + + | Marital Status | | + + + | Judaism Affiliation | 1061 | + + + | Race | Unknown | + + + | Ethnic Group | Unknown | + + + Author + + + | Author | [facility] | | | and [place] | + + + | Organization | [facility] | | | and [place] | + + + | Address | Unknown | + + + | Phone | Unavailable | + + + Support + + +---------+ + | Name | Relationship | Address | Phone | + + +---------+ + | Johnny Siddiqi Jr | ECON | Unknown | | [...] Team Providers + +------+ + | Care Load Tester Name | Role | Phone | + +------+ + | Antonio Paulino MD | PCP | | + +------+ + Reason for Visit + + + | Reason | Comments | + + + | Follow-up | | + + + | Bradycardia | | + + + | Tachycardia | | + + + Encounter Details +--------+---------+ + + + | Date | Type | Department | Care Team | Description | +--------+---------+ + + + | 12/23/ | Office | [facility] | Cruzito Bird, | Chronic diastolic | | 2019 | Visit | CARDIOLOGY [address] [place] | congestive heart | | | | [place], | [place], | failure (HCC) | | | | [place] [address] | [place] [address] | (Primary Dx); | | | | [phone] | [phone] | 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); | | | | | | Persistent atrial | | | | | | fibrillation (HCC) | +--------+---------+ + + + Social History [...] + + | Pulse | 60 | 12/23/20181355 PST | + + + + | Temperature | - | - | + + + + | Respiratory Rate | 18 | 12/23/20181355 PST | + + + + | Oxygen Saturation | - | - | + + + + | Inhaled Oxygen | - | - | | Concentration | | | + + + + | Weight | 85.3 kg (188 lb 0.8 | 12/23/20181355 PST | | | oz) | | + + + + | Height | 167.6 cm (5' 6") | 12/23/2018 1356 PST | + + + + | Body Mass Index | 30.35 | 12/23/2018 1356 PST | + + + + in this encounter Functional Status + + [...] | | | + + + + as of this encounter Progress Notes Cruzito Bird MD - 12/23/2018 1500 PSTFormatting of this note may be different from krystina cristobal. PATIENT NAME: Johnny Siddiqi : 1935: AGE: 83 y.o. PRIMARY CARE: Antonio Paulino MD OUTPATIENT FOLLOW UP VISIT Date of Service: 12/23/2018 HISTORY OF PRESENT ILLNESS: Johnny Siddiqi is a 83 y.o. male with a history of symptomatic tachycardia/bradycardia syndrom e post [employer] medical dual-chamber pacemaker implantation on 05/14/17, Coronary artery dise ase, post CABG 1 with DON to LAD and mechanical aortic valve replacement in 2004, heart f ailure with preserved ejection fraction, stage III chronic kidney disease, obesity, inactivi ty, COPD. He is being seen today for follow up. He was last seen on 07/31/18 at which time patient was to stop taking amiodarone due to the abnormal PFT, increase metoprolol to 50 mg daily and to increase lipitor to 20 mg. He was a lso to check TSH and LFT. Since that time, patient was seen at [facility] for pneumo ana. He also mention he has been having severe gout issues. Today, apart from coming down with a cold, patient is feeling good with no cardiac complain s. Patient is physically active by walking at his home for a couple of days a weeks. There is no chest pain or chest discomfort both at rest and on exertion. Patient denies breathless ness. There is no palpitation dizziness or lightheadedness. There is no ankle or leg swellin g. Patient can sleep on one pillow at night without difficulty breathing. MEDICAL, SURGICAL, AND PERSONAL HISTORY Past Medical, Surgical, Family, and Social History are reviewed in EPIC. CURRENT PROBLEMS Patient Active Problem List Diagnosis H/O aortic valve replacement Essential hypertension Liver cirrhosis Dementia Alcoholic cirrhosis Coronary artery disease involving [place] coronary artery of [place] heart without angina pectoris Pulmonary HTN Chronic diastolic congestive heart failure Over-anticoagulated Acute renal failure (ARF) Anemia CRUZITO (obstructive sleep apnea) Persistent atrial fibrillation Wound of left leg Venous stasis of both lower extremities Hard of hearing Tachycardia-bradycardia syndrome Pacemaker reprogramming/check Pacemaker Dual Chamber, MRI compatible, 05/14/17 [facility] S/P CABG x 1 Status post mechanical aortic valve replacement CURRENT MEDICATIONS Current Outpatient Prescriptions Medication Sig Dispense Refill albuterol 90 mcg/puff inhaler Inhale 2 puffs into the lungs 3 times daily as needed for Wheezing. artificial tears (REFRESH PLUS) 0.5% SOLN Place 1 drop into both eyes 4 times daily as needed (for dry eyes). atorvaSTATin (LIPITOR) 20 mg tablet Take 1 tablet by mouth nightly. 90 tablet 3 benzonatate (TESSALON) 100 mg capsule Take 100 mg by mouth Twice daily as needed for C ough. bisacodyl (DULCOLAX) [address] 10 mg rectally as needed for Constipation. budesonide-formoterol (SYMBICORT) 160-4.5 mcg/puff inhaler Inhale 2 puffs into the lung s 2 times daily. colchicine 0.6 mg tablet take 1 tablet by mouth once daily 0 desonide (DESOWEN) 0.05% cream Apply 1 Units topically. donepezil (ARICEPT) 10 MG tablet Take 5 mg by mouth. doxycycline (VIBRAMYCIN) 100 mg capsule Take 100 mg by mouth 2 times daily. fenofibrate (TRICOR) 145 mg tablet Take 145 mg by mouth Daily. ferrous sulfate 325 mg tablet Take 325 mg by mouth daily (with breakfast). Patient take s three times weekly on Mon, Wed, Fri furosemide (LASIX) 40 mg tablet Take 1 tablet by mouth 2 times daily. 60 tablet 2 guaiFENesin-codeine (ROBITUSSIN AC) 100-10 mg/5 mL liquid [...] tablet Take 10 mg by mouth Daily. magnesium oxide (MAG-OX) 400 mg tablet Take 400 mg by mouth Daily. metoprolol succinate (TOPROL-XL) 50 mg 24 hr tablet Take 1 tablet by mouth Daily. 90 ta blet 3 nitroglycerin (NITROSTAT) 0.[address] 1 tablet under the tongue every 5 pooja michela as needed for chest pain, up to 3 doses in 15 minutes - take blood pressure first - call 911 for unrelieved chest pain nystatin (MYCOSTATIN) cream Apply topically 3 times daily as needed (for fungal infect ion). ondansetron (ZOFRAN ODT) 4 mg disintegrating tablet Take 4 mg by mouth every 4 hours as needed for Nausea. skin emollient (EUCERIN CALMING DAILY MOIST) cream Apply topically. terbinafine (LAMISIL) 1% cream Apply 1 Units topically. traZODone (DESYREL) 50 mg tablet Take 50 mg by mouth nightly as needed for Sleep. warfarin (COUMADIN) 6 MG tablet Take 5 mg by mouth. In the evening on even days Managed by the V.A No current facility-administered medications for this visit. ALLERGIES Allergies Allergen Reactions Latex Rash ROS Review of Systems Constitutional: Positive for malaise/fatigue. Respiratory: Positive for shortness of breath. Cardiovascular: Negative for chest pain, palpitations and leg swelling. Neurological: Positive for dizziness and weakness. Lightheaded = No OBJECTIVE: PHYSICAL EXAM BP 130/68 | Pulse 60 | Resp 18 | Ht 1.676 m (5' 6") | Wt 85.3 kg (188 lb 0.8 oz) | BMI 30.35 kg/m Physical Exam Constitutional: He appears well-developed and well-nourished. No distress. Male individual accompanied by son, with no acute distress. Neck: Normal carotid pulses, no hepatojugular reflux and no JVD present. Carotid bruit is n ot present. Cardiovascular: Normal rate, regular rhythm, S1 normal, S2 normal, normal heart sounds, int act distal pulses and normal pulses. PMI is not displaced. Exam reveals no gallop, no S3, no S4 and no friction rub. No murmur heard. Pulses: Carotid pulses are 2+ on the right side, and 2+ on the left side. Dorsalis pedis pulses are 2+ on the right side, and 2+ on the left side. Pulmonary/Chest: Effort normal. No accessory muscle usage. No respiratory distress. He has wheezes. He has no rhonchi. He has no rales. Abdominal: Normal appearance, normal aorta and bowel sounds are normal. He exhibits no abdo pablo bruit. There is no hepatosplenomegaly. There is no tenderness. Musculoskeletal: He exhibits no edema. Neurological: He is alert. Gait normal. Skin: Skin is warm and dry. Psychiatric: He has a normal mood and affect. His mood appears not anxious. He does not exh ibit a depressed mood. LAB RESULTS reviewed during visit today primarily from [facility]: LIPID Lab Results Component Value Date CHOL 122 (L) 06/04/2018 TRIG 76 06/04/2018 HDL 48 06/04/2018 LDL 59 06/04/2018 CHOLHDL 2.5 06/04/2018 CHEMISTRY Lab Results Component Value Date GLU 94 06/04/2018 NA 140 06/04/2018 K 5.0 06/04/2018 CL 108 06/04/2018 CO2 27 06/04/2018 CALCIUM 9.1 06/04/2018 ALKPHOS 101 06/04/2018 AST 34 06/04/2018 ALT 21 06/04/2018 BILITOT 0.9 06/04/2018 CREA 1.41 (H) 06/04/2018 BUN 22 (H) 06/04/2018 EGFR 56 (L) 12/02/2012 HEMATOLOGY Lab Results Component Value Date WBC 6.4 06/04/2018 HGB 11.2 (L) 06/04/2018 HCT 34.7 (L) 06/04/2018 PLT 151 06/04/2018 Above data and testing is reviewed this visit; testing below is historical data unless othe rwise specified. ASSESSMENT: 1. Congestive heart failure with preserved ejection fraction A. Patient was seen at [facility] for edema seen on 07/08-. At that time patient stopped taking lasix. He was restarted on lasix 40 mg twice a day. Today, patient is feeling good with no cardiac complains. Patient is physically active by walking at his home for a couple of days a weeks. There is no signs and symptoms o f overt congestive heart failure. He is in a class I of [place] Heart Association function al class. There is no fluid retention on physical examination.. 2. Tachy/bradycardia with syncope: A.Hewas in his usual state of health until 05/07/17 when he was admitted after he fell twice while walking out of a convenience store. He was found to be anemic so original thought was that he had GI bleeding causing the syncope. However, upper GI endoscopy did not reveal significant source of GI bleeding.Over the next few days, melissa starkey developed atrial fibrillation with rapid ventricular response.He was given metoprolol but ran into problems with hypotension. Amiodarone was started. However, he developed a severe bradycardia with hypotension, requiring dopamine. B. Patient underwent successful [facility] [facility] medical MRI compatible, du al-chamber permanent pacemaker implantation on 05/14/17. C. No device interrogation today. 3. Paroxysmal atrial fibrillation with RVR/aberration conduction: A. Echocardiogram 04/01/2015 shows mild biatrial dilatation, normal left ventricular size, wall thickness and motion, preserved left ventricular systolic functi on,LVEF is 65-70%, grade 1 left ventricular diastolic dysfunction, normally functioning me chanical bileaflet aortic valve replacement, mildly thickened and calcified mitral valve wit h a mild mitral valve regurgitation, mild mitral annular calcification, mild tricuspid valve regurgitation, moderate pulmonary hypertension with a peak systolic pressure of 55-60 mmHg, normal IVC with normal respiratory collapse, no previous echocardiography for comparison. B. Echocardiogram 01/30/2017 shows overall left ventricular systolic function is normal with, an EF between 65 - 70 %, pseudo normalLV diastolic filling patte rn, consistent with elevated LA pressure and moderate dysfunction (Grade II), right ventricl e is normal in size and function, there is mild bi-atrial enlargement, normally functioning mechanical prosthetic aortic valve, there is mild pulmonary hypertension. C. Echocardiogram 02/28/2017 shows mild biatrial dilatation, normal left ventricular size with a mild concentric left ventricular hypertrophy, left ventricular systolic function is preserved. LVEF is 70%, normal right ventricular cavity with normal wal l thickness and a mildly reduced right ventricular systolic function, normal functioning mec hanical aortic valve replacement, mildly thickened and calcified mitral valve with adequate opening, mild to moderate mitral annular calcification, mild pulmonary hypertension with a p eak systolic pressure of 45-50 mmHg, normal IVC with normal respiratory collapse. D. Echocardiogram of 05/13/17 showed mild biatrial dilatation. Emily l left ventricular size with a mild concentric left ventricular hypertrophy. Left ventricula r systolic function is preserved. LVEF is 55-60%. Evidence of a paradoxical septal motion. N ormal right ventricular size and wall thickness with a mildly decreased right ventricular sy stolic function. Normally functioning mechanical bileaflet aortic valve replacement. Mildly thickened and calcified mitral valve with adequate opening. There is a mild mitral valve reg urgitation. Mild mitral annular calcification. Moderate pulmonary hypertension with a peak systole pres sure of 65-70 mmHg. Dilated IVC without respiratory collapse suggesting fluid retention. Whe n compared to echocardiography on 02/28/17, pulmonary hypertension is slightly worsened and p atient appeared to be fluid overloaded on this study. E. He was started on amiodarone 04/2017. F. Pulmonary function test 06/27/2018 shows consistent with very scott re restrictive physiology, no prior pulmonary function tests available for comparison. Hisrisks for stroke include: Hx of HTN (1), Age >/= 75 Y.O.(2) and Vascular d isease (1). [id number] is 4, which gives an estimated 4.0%risk of stroke per year in atrial fibrillation. Hisbleeding risks include: bleeding history/anemia (1) and >64 YO (1) . HisHASBLED score is 2-3, which confers an intermediate risk (4.1-5.8%) r isk of bleed per year. He is on warfarin to minimize risk of stroke. He is now doing well on rate control strategy. 4. Coronary artery disease involving [place] coronary artery of [place] heart without angina pectoris: A. [facility] [place] 11/14/2004 shows preserved left ventricular systolic function , critical aortic stenosis, severe one-vessel coronary artery disease. B. CABG x1 (DON to LAD)/AVR (#23 SJM),prosthetic valve stable, end ocarditis prophylaxis reinforced on 11/16/2004. C. Patient denies chest pain 5. Nonsustained ventricular tachycardia A. He does not have symptoms. 6. Mechanical aortic valve replacement A. Status post AVR (#23 SJM)on 11/16/2004. B. Patient is on warfarin 6 mg. 7. Hyperlipidemia, mixed: A. He is on atorvastatin 20 mg daily. 8. GI bleedingwith anemia: Not addressed today. A. Noted during hospitalization 04/2017. Resolved. 9.Stage III chronic kidney disease. A. No recent labs. 10. Chronic obstructive pulmonary disease. A. Patient is on nebulizer treatments. 11. Obstructive sleep apnea. 12. Hypothyroidism A. He is on levothyroxine 25 mcg. PLAN: 1. He will continue with current medical regimen. 2. I recommend a therapeutic lifestyle change including walking 30 minutes a day, choosing healthy choices of diet and 7 hours of high quality sleep a night. 3. I recommend flu, pneumonia and shingles vaccine. Patient is up to date on flu and pneumo ana vaccine. 4. Follow-up in one year and Oc/thresh check. He will do remote download quarterly. I, Trinidad Johnson, am acting as a scribe on behalf of, and in the presence of Cruzito flynn MD. I have reviewed and edited this note. Trinidad Johnson Diesel Truck Technician 12/23/2018 I, Cruzito Bird MD, personally performed the services described in this documentation, as scribed in my presence and it is both accurate and complete. Trinidad Johnson, Diesel Truck Technician 12/23/2018 14:11 Electronically signed by: Cruzito Bird MD [facility] 12/23/2018 Portions of this chart may have been created with [employer] voice recognition software. Occasi onal wrong-word or sound-alike substitutions may have occurred due to the inherent carter itations of voice recognition software. Please read the chart carefully and recognize, using context, where these substitutions have occurred in this encounter Plan of Treatment +--------+ + + + + | Date | Type | Specialty | Care Team | Description | +--------+ + + + + | 01/18/ | Implant | Cardiology | Cruzito Bird, | Remote Device | | 2019 | Monitor | | MD Leon Grant | Interrogation | | | | | [facility], | (Primary Dx); | | | | | [place] [address] | Pacemaker Dual | | | | | [phone] | Chamber, MRI | | | | | | compatible, 05/14/17 | | | | | | [facility]; | | | | | | 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) | +--------+ + + + + | 12/23/ | Office | Cardiology | Emely Gabriel, | | | 2019 | Visit | | AMANDA [address] | | | | | | [place] | | | | | | [address] | | | | | | | | +--------+ + + + + as of this encounter Visit Diagnoses + + | Diagnosis | + + | Chronic diastolic congestive heart failure (HCC) - Primary | + + | Chronic diastolic heart failure | + + | Tachycardia-bradycardia syndrome (HCC) | + + | Sinoatrial node dysfunction | + + | Persistent atrial fibrillation (HCC) | + + | Atrial fibrillation | + +
--- OUTSIDE RECORDS SUMMARY | ~2018-12-28 | XMS | Encounter Summary ---
Demographics + + + | Address | [address] | | | [place] [address] | + + + | Home Phone | | + + + | Preferred Language | Unknown | + + + | Marital Status | | + + + | Congregational Affiliation | 1061 | + + + | Race | Unknown | + + + | Ethnic Group | Unknown | + + + Author + + + | Author | [employer] [facility] | + + + | Organization | [facility] [employer] | + + + | Address [...] Team Providers + +------+ + | Care Tubing Drier Name | Role | Phone | + +------+ + | Jerson Martin MD | PCP | | + +------+ + Reason for Visit +--------+ + | Reason | Comments | +--------+ + | Other | 3-STEP | +--------+ + Encounter Details +--------+ + + + + | Date | Type | Department | Care Team | Description | +--------+ + + + + | 12/25/ | Documentati | [facility] | Tawanda Og, | Other (3-STEP) | | 2019 | on Only | Pulmonology [address] | [place] | | | | | [address] | | | | | | [place] | | | | | | [address] | | | | | | [phone] | | | +--------+ + + + [...] + + as of this encounter Progress Tawanda Kelly MA - 12/25/2018 11:57 AM PST3 step testing Oximetry Exercise (code) 90073 1. At rest on room air: Time:11:41AM Heart rate: 60 Oxygen saturations: 91% 2. At exercise on room air: Time: 11:44AM Heart rate: 84 Oxygen saturations: 87% 3. At exercise with oxygen: Time: 11:48AM Heart rate: 87 Oxygen Saturations: 94% Liters per minute: 2 liters of oxygen in this encounter Plan of Treatment +--------+---------+ + + + | Date | Type | Specialty | Care Team | Description | +--------+---------+ + + + | 03/31/ | Office | Pulmonology | Mod[place] Adames | | | 2019 | Visit | | Johnny Song MD [address] | | | | | | [address] | | | | | | [place] [address] | | | | | | [phone] | | | | | | | | +--------+---------+ + + + as of this encounter Visit Diagnoses Not on filein this encounter"
--- OUTSIDE RECORDS SUMMARY | ~2018-12-28 | XMS | Encounter Summary ---
Demographics + + + | Address | [address] | | | [place] [address] | + + + | Home Phone [...] Providers + +------+ + | Care Sales Development Director Name | Role | Phone | [...] Visit | CARDIOLOGY [address] [place] | congestive heart | | | | [place], | [place], | failure (HCC) | | | | [place] [address] | [place] [address] | (Primary Dx); | | | | [phone] | [phone] | Tachycardia-bradycar | | | | | [...] Since that time, patient was seen at [facility] for pneumo ana. He also mention [...] Dementia Alcoholic cirrhosis Coronary artery disease involving [place] coronary artery of [place] heart without angina pectoris Pulmonary HTN Chronic [...] RESULTS reviewed during visit today primarily from [facility]: LIPID Lab Results Component Value Date CHOL [...] ejection fraction A. Patient was seen at [facility] for edema seen on 07/08-. [...] He is in a class I of [place] Heart Association function al class. There is [...] 73 Y.O.(2) and Vascular d isease (1). [id number] is 4, which gives an estimated 4.0%risk [...] control strategy. 4. Coronary artery disease involving [place] coronary artery of [place] heart without angina pectoris: A. [facility] 11/14/2004 shows preserved left ventricular systolic function [...] reviewed and edited this note. Trinidad Johnson Fiberglass Product Tester 12/23/2018 I, Cruzito Bird MD, personally performed the services described in this documentation, as scribed in my presence and it is both accurate and complete. Trinidad Johnson, Fiberglass Product Tester 12/23/2018 14:11 Electronically signed by: Cruzito Bird MD [facility] 12/23/2018 Portions of this chart may have been created with [email or web address] voice recognition software. Occasi onal wrong-word or [...] Dx); | | | | | [place] [address] | Pacemaker Dual | | | | | [phone] | Chamber, MRI | | | | [...] [place] | | | | | | [address] | | | | | | | [...]
--- OUTSIDE RECORDS SUMMARY | ~2018-12-28 | XMS | Encounter Summary ---
Demographics + + + | Address | [address] | | | [place] [address] | + + + | Home Phone | | + + + | Preferred Language | Unknown | + + + | Marital Status | | + + + | Adventism Affiliation | 1061 | + + + | Race | Unknown | + + + | Ethnic Group | Unknown | + + + Author + + + | Author | [facility] | | | and [place] | + + + | Organization | [facility] | | | [...] Team Providers + +------+ + | Care Film Reproducer Name | Role | Phone | + +------+ + | Antonio Paulino MD | PCP | | + +------+ + Reason for Visit + + + | Reason | Comments | + + + | Lab Order | Pt due for labs prior to appt | + + + Encounter Details +--------+ + + + + | Date | Type | Department | Care Team | Description | +--------+ + + + + | 12/17/ | Telephone | [facility] | Cruzito Bird, | Lab Order (Pt due | | 2019 | | CARDIOLOGY [address] | MD [address] | for labs prior to | | | | [place], | [place], | appt ) | | | | [place] [address] | [place] [address] | | | | | [phone] | [phone] | | | | | | | [...] | | 2018 | Monitor | | [address] | Interrogation | | | | | [place], | (Primary Dx); | | | | | [place] [address] | Pacemaker Dual | | | | | [phone] | Chamber, MRI | | | | | | compatible, 05/14/17 | | | | | | [facility] Marge; | | | | | | 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) | +--------+ + + + + | 12/23/ | Office | Cardiology | Emely Gabriel, | | | 2019 | Visit | | MIGRATION SPECIALIST [address] | | | | | | St [place], [place] | | | | | | [address] | | | | | | | | +--------+ + + + + + +--------+ + + | Name | Priori | Associated Diagnoses | Order Schedule | | | ty | | | + +--------+ + + | CBC with Differential | Routin | Pacemaker Dual | 1 Occurrences | | | e | Chamber, MRI | starting 12/17/2018 | | | | compatible, 05/14/17 | until 12/17/2019 | | | | [facility] Marge | | | | | H/O aortic valve | | | | | replacement | | | | | Essential | | | | | hypertension | | | | | Coronary artery | | | | | disease involving | | | | | [place] coronary | | | | | artery of [place] | | | | | heart without angina | | | | | pectoris | | + +--------+ + + | Lipid Panel | Routin | Essential | 1 Occurrences | | | e | hypertension | starting 12/17/2018 | | | | Coronary artery | until 12/18/2019 | | | | disease involving | | | | | [place] coronary | | | | | artery of [place] | | | | | heart without angina | | | | | pectoris | | + +--------+ + + | Comprehensive Metabolic Panel | Routin | Pacemaker Dual | 1 Occurrences | | | e | Chamber, MRI | starting 12/17/2018 | | | | compatible, 05/14/17 | until 12/17/2019 | | | | [facility] Bird | | | | | H/O aortic valve | | | | | replacement | | | | | Essential | | | | | hypertension | | | | | Coronary artery | | | | | disease involving | | | | | [place] coronary | | | | | artery of [place] | | | | | heart without angina | | | | | pectoris | | + +--------+ + + as of this encounter Visit Diagnoses + + | Diagnosis | + + | Pacemaker Dual Chamber, MRI compatible, 05/14/17 [facility] Bird - Primary | + + | Cardiac pacemaker in situ | + + | H/O aortic valve replacement | + + | Heart valve replaced by other means | + + | Essential hypertension | + + | Unspecified essential hypertension | + + | Coronary artery disease involving [place] coronary artery of [place] heart without | | angina pectoris | + +"
--- OUTSIDE RECORDS SUMMARY | ~2018-12-28 | XMS | Encounter Summary ---
Demographics + + + | Address | [address] | | | [place] [address] | + + + | Home Phone | | + + + | Preferred Language | Unknown | + + + | Marital Status | | + + + | Anglican Affiliation | 1061 | + + + | Race | Unknown | + + + | Ethnic Group | Unknown | + + + Author + + + | Author | [facility] | + + + | Organization | [facility] | + + + | Address [...] Team Providers + +------+ + | Care Web Knitter Name | Role | Phone | + +------+ + | Jerson Martin MD | PCP | | + +------+ + Encounter Details +--------+ + + + + | Date | Type | Department | Care Team | Description | +--------+ + + + + | 12/26/ | Documentati | [facility] | Modesto Adames | | | 2019 | on Only | Pulmonology [address] | Johnny Song MD [address] | | | | | [address] | [address] | | | | | [place], [place] | [place] [address] | | | | | [address] | [phone] | | | | | [phone] | | | +--------+ + + + [...] AP. This appears to represent a loculated processing specialist io effusion and is not significantly changed [...] | | | | | [place] [address] | | | | | | [phone] | | | | | | | | +--------+---------+ + + + as of this encounter Visit Diagnoses Not on filein this encounter
--- OUTSIDE RECORDS SUMMARY | ~2018-12-28 | XMS | Encounter Summary ---
Demographics + + + | Address | [address] | | | [place] [address] | + + + | Home Phone | | + + + | Preferred Language | Unknown | + + + | Marital Status | | + + + | Jewish Affiliation | 1061 | + + + | Race | Unknown | + + + | Ethnic Group | Unknown | + + + Author + + + | Author | [facility] | + + + | Organization | [facility] | + + + | Address [...] Team Providers + +------+ + | Care Beam Sealer Name | Role | Phone | + +------+ + | Jerson Martin MD | PCP | | + +------+ + Encounter Details +--------+ + + + + | Date | Type | Department | Care Team | Description | +--------+ + + + + | 12/26/ | Documentati | [facility] | Modesto Adames | | | 2019 | on Only | Pulmonology [address] | Johnny Song MD [address] | | | | | [address] | [address] | | | | | [place], [place] | [place] [address] | | | | | [address] | [phone] | | | | | [phone] | | | +--------+ + + + [...] AP. This appears to represent a loculated reclaimer io effusion and is not significantly changed [...] | | | | | [place] [address] | | | | | | [phone] | | | | | | | | +--------+---------+ + + + as of this encounter Visit Diagnoses Not on filein this encounter
--- OUTSIDE RECORDS SUMMARY | ~2018-12-28 | XMS | Encounter Summary ---
Demographics + + + | Address | [address] | | | [place] [address] | + + + | Home Phone | | + + + | Preferred Language | Unknown | + + + | Marital Status | | + + + | Latter Day Affiliation | 1061 | + + + | Race | Unknown | + + + | Ethnic Group | Unknown | + + + Author + + + | Author | [facility] | | | and [place] | + + + | Organization | [facility] | | [...] Team Providers + +------+ + | Care Physician Scientist Name | Role | Phone | [...] Monitor | CARDIOLOGY [address] | [address] | Interrogation | | | | [place], | 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 Data collected by Yareli Rivas | | | SAMEER Molina Presenting rhythm: atrial paced ventricular sensed rate | | | 63-69 beats.0 mode switch episodes accounting for 0% of the time.No | | | episodes. PVC singles 56 PVC singles 37 | | | /monthPVC runs 0 Histogram fair. | | | Battery longevity 10.4 years.Apparent normal and stable device | | | function.Device interrogation due in office in May 2019.Patient | | | notified. | | |PVC singles 56 PVC singles [...]
--- OUTSIDE RECORDS SUMMARY | ~2018-12-28 | XMS | Clinical Summary ---
Demographics + + + | Address | [address] | | | [place] [address] | + + + | Home Phone [...] Providers + +------+ + | Care Tobacco Cloth Reclaimer Name | Role | Phone | + [...] St | | Rupert Assurity MRI [id number] 05/14/[address] [facility]pert Tendril | | MRI [id number] 05/14/[address] Rupert Tendril MRI | | [id number] 05/14/17 Indication: Tachycardia-Bradycardia | | Syndrome. 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) | +--------+ + + + + | 12/23/ | Office | | Emely Gabriel, | | | 2019 | Visit | | RELATIONSHIP MANAGEMENT LEAD [address] | | | | | | [place], [place] | | | | | | [address] | | | | | | | [...] | [facility] | | 06/20/ | [id number] | | [id number]: Qty: 1 | | Heart | MEDICAL - | | 2017 | 0M/52 | | on 05/14/2017 by Marge, | | | CHRISTOPHER | | | /[id number] | | MD Cruzito | | | | | | 8427 / | + +------+-------+ +--------+--------+--------+ | Lead Tendril Mri 46cm - | | N/A: | [facility] | | 07/20/ | [id number] | | [id number]: Qty: 1 | | Heart | MEDICAL - | | 2016 | 0M/46 | | on 05/14/2017 by Marge, | | | CHRISTOPHER | | | /[id number] | | MD Cruzito | | | | | | 3446 / | + +------+-------+ +--------+--------+--------+ | Pacer Assurity Mri Dr Rf - | | N/A: | [facility] | | 08/20/ | [id number] | | [id number]: Qty: 1 on | | Heart | MEDICAL - | | 2017 | | | 05/14/2017 by Marge, | | | STJU | | | /[id number] | | MD Cruzito | | | [...] + | Cruzito Bird MD - 01/18/2019 [id number] PDT Date of Remote Interrogation: 10/21/18Refer | | to [facility] documentation and remote PDF scanned into [facility] for remote interrogation | | results. Data [...] +--------+ +---------+ | MEDICARE | MEDICA | [id number] | Medica | [phone] | | | | RE | | re | [phone] | | | | PART A | | | | | | | AND B | | | | | + +--------+ +--------+ +---------+ | MOD[employer] PLAN | MODA | [id number] | Medica | +- | | | MEDICAID HMO | HEALTH | | id | 9821 | | | | MDCD | | | | | | | [place]MO [place] | | | | | + +--------+ +--------+ +---------+ | [employer] ADMIN | VETERA | [id number] | Indemn | | | | | [...] | | | [phone] | [place] [address] | + +--------+ +--------+ + + | JACKLYN PATEL | Specia | Self | [birth year] | Home: | [address] | | | l | | 1935 | [phone] | | | Servic | | | [address] | [place] [address] | | | es | | | | | + +--------+ +--------+ + +
--- OUTSIDE RECORDS SUMMARY | ~2018-12-28 | XMS | Clinical Summary ---
Demographics + + + | Address | [address] | | | [place] [address] | + + + | Home Phone | | + + + | Preferred Language | Unknown | + + + | Marital Status | | + + + | Roman Catholic Affiliation | 1061 | + + + | Race | Unknown | + + + | Ethnic Group | Unknown | + + + Author + + + | Author | [facility] | + + + | Organization | [facility] | + + + | Address [...] Providers + +------+ + | Care Manager Clinical Services Name | Role | Phone | + [...] Overview: | | CT scan [address] [facility] | + + + + + | Coronary artery disease involving [place] coronary artery of | 12/25/2018 | | [place] heart without angina pectoris | | + + + + + | Overview: Overview: [facility] 11/14/2004 shows preserved left | | ventricular [...] artery disease involving coronary bypass graft of [place] | 09/03/2016 | | heart with angina [...] diuretic therapy | | (furosemide, metolazone).CXR, 09/03/2016 ([facility]): Aortic | | valve prosthesis, mild pulmonary [...] | | Mod[place] Adames | | | 2018 | on Only | | Jacklyn Song [...] | | | | | [place] [address] | | | | | | [phone] | | | | | | | [...] Vaccine: Influenza | | | | | (#1) | 8 | [...] + + | MEDICARE | MEDICA | [id number] | | | [address] | | | RE | | | | [place] [phone] | | | IP-OP | | | | | + +--------+ +------+ + + | [place] | [place] | [id number] | | [phone] FEE SERVICES A136 | | ADMINISTRATION | CHOICE | | | [phone] | | | | | | | [place] | | | | | | | [phone] | + +--------+ +------+ + + | MEDICAID | [place] | | | | [address] | | | | | | | [place], [place] | | | FAMILY | | | | [address] | | | CARE | | | | | + +--------+ +------+ + + | MEDICAID | MEDICA | [id number] | | | [address] | | | [place] | | | | [place], [place] | | | [place] | | | | [address] | + +--------+ +------+ + + + +--------+ +--------+ + + | Guarantor Name | Accoun | Relation to | Date | Phone | Billing Address | | | t Type | Patient | of | | | | | | | | | | + +--------+ +--------+ + + | PATEL,JACKLYN | Person | Self | [birth year] | Home: | [address] | | | al/Fam | | 1935 | +- | [address] | | | [place] | | | [address] | [place] [address] | + +--------+ +--------+ + + | JACKLYN PATEL | Vetera | Self | [birth year] | Home: | [address] | | | ns | | 1935 | +- | [address] | | | Admini | | | [address] | [place] [address] | | | strati | | | | | | | on | | | | | + +--------+ +--------+ + +
--- OUTSIDE RECORDS SUMMARY | ~2018-12-28 | XMS | Encounter Summary ---
Demographics + + + | Address | [address] | | | [place] [address] | + + + | Home Phone [...] Team Providers + +------+ + | Care Waiter/Waitress Dining Car Name | Role | Phone | + [...] Visit | CARDIOLOGY [address] | [address] | congestive heart | | | | [place], | [place], | failure (HCC) | | | | [place] [address] | [place] [address] | (Primary Dx); | | | | [phone] | [phone] | Tachycardia-bradycar | | | | | [...] Since that time, patient was seen at [facility] for pneumo ana. 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 Patient was seen at [facility] for edema seen on 07/08-. At [...] He is in a class I of [place] [employer] function al class. There is [...] 73 Y.O.(2) and Vascular d isease (1). [id number] is 4, which gives an estimated 4.0%risk [...] control strategy. 4. Coronary artery disease involving agdaagux coronary artery of agdaagux heart without angina pectoris: A. [facility] 11/14/2004 shows preserved left ventricular systolic function [...] reviewed and edited this note. Trinidad Johnson Bank Vault Clerk 12/23/2018 I, Cruzito Bird MD, personally performed the services described in this documentation, as scribed in my presence and it is both accurate and complete. Trinidad Johnson, Bank Vault Clerk 12/23/2018 14:11 Electronically signed by: Cruzito Bird MD [facility] 12/23/2018 Portions of this chart may have been created with [employer] voice recognition software. Occasi onal wrong-word or [...] Dx); | | | | | [place] [address] | Pacemaker Dual | | | | | [phone] | Chamber, MRI | | | | [...] [place] | | | | | | [address] | | | | | | | [...]
--- OUTSIDE RECORDS SUMMARY | ~2018-12-28 | XMS | Encounter Summary ---
Demographics + + + | Address | [address] | | | [place] [address] | + + + | Home Phone | | + + + | Preferred Language | Unknown | + + + | Marital Status | | + + + | Rastafarian Affiliation | 1061 | + + + | Race | Unknown | + + + | Ethnic Group | Unknown | + + + Author + + + | Author | [facility] [employer] | + + + | Organization | [facility] | + + + | Address [...] Team Providers + +------+ + | Care Waste Management Recycling Technician Name | Role | Phone | [...] + + | 12/25/ | Documentati | [facility] | Tawanda Og, | Other (3-STEP) | | 2019 | on Only | Pulmonology [address] | [place] | | | | | [address] | | | | | | [place] | | | | | | [address] | | | | | | [phone] | | | +--------+ + + + [...] AM PST3 step testing Oximetry Exercise (code) 14098 1. At rest on room air: Time:11:41AM [...] Val[place] | | | | | | [place] [address] | | | | | | [phone] | | | | | | | | +--------+---------+ + + + as of this encounter Visit Diagnoses Not on filein this encounter"
--- OUTSIDE RECORDS SUMMARY | ~2018-12-28 | XMS | Encounter Summary ---
Demographics + + + | Address | [address] | | | [place] [address] | + + + | Home Phone | | + + + | Preferred Language | Unknown | + + + | Marital Status | | + + + | Baptism Affiliation | 1061 | + + + | Race | Unknown | + + + | Ethnic Group | Unknown | + + + Author + + + | Author | [employer] [facility] | + + + | Organization | [facility] | + + + | Address [...] Team Providers + +------+ + | Care Orchard Pruner Name | Role | Phone | + +------+ + | Jerson Martin MD | PCP | | + +------+ + Encounter Details +--------+ + + + + | Date | Type | Department | Care Team | Description | +--------+ + + + + | 12/26/ | Documentati | [facility] | Modesto Adames | | | 2019 | on Only | Pulmonology [address] | Johnny Song MD [address] | | | | | [address] | [address] | | | | | [place], [place] | [place] [address] | | | | | [address] | [phone] | | | | | [phone] | | | +--------+ + + + [...] AP. This appears to represent a loculated quantometer operator io effusion and is not significantly changed [...] | | | | | [place] [address] | | | | | | [phone] | | | | | | | | +--------+---------+ + + + as of this encounter Visit Diagnoses Not on filein this encounter
--- OUTSIDE RECORDS SUMMARY | ~2018-12-28 | XMS | Encounter Summary ---
Demographics + + + | Address | [address] | | | [place] [address] | + + + | Home Phone | | + + + | Preferred Language | Unknown | + + + | Marital Status | | + + + | Cheondoism Affiliation | 1061 | + + + | Race | Unknown | + + + | Ethnic Group | Unknown | + + + Author + + + | Author | [employer] | + + + | Organization | 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 | [address] | [address] | | | | | pulmonary | [address] | [address] | | | | | disease, | [place], | [place], [place] | | | | | unspecified | [place] [address] | [address] | | | | | ([facility]) | Phone: | Phone: | | | | | Abnormal | [phone] | [phone] | | | | | results of | Fax: | | | | | | pulmonary | [phone] | | | | | | function | | | | | | | studies | | | + +--------+ + + + + Encounter Details +--------+---------+ + + + | Date | Type | Department | Care Team | Description | +--------+---------+ + + + | 12/25/ | Office | [facility] | Modesto Adames | Hypoxemia (Primary | | 2019 | Visit | Pulmonology [address] | Jonhny Song MD [address] | Dx); 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 1935 Referred from: Jerson Martin MD [address] [place] [address] Referral reason: COPD HPI: Johnny Siddiqi is [...] intermittent cough. Says he was recently at [place] and was prescribed antibiotics which helped his [...] [facility] Rupert LPA 1200M, 46 cm, s# [id number]; RV Lead - [facility] Rupert LPA 1200M, 52 cm, s# [id number] CHF (congestive heart failure) (HCC) Chronic diastolic [...] [facility] Ru[facility] LPA 1200M, 46 cm, s# [id number]; RV Lead - [facility] Rupert LPA 1200M, 52 cm, s# [id number] SKIN LESION EXCISION forehead Family History Problem [...] he had a more recent CXR at [facility] 2 weeks ago, I will request a [...] Valenzuela | | | | | | [place] [address] | | | | | | [phone] | | | | | | | [...]
--- OUTSIDE RECORDS SUMMARY | ~2018-12-28 | XMS | Encounter Summary ---
Demographics + + + | Address | [address] | | | [place] [address] | + + + | Home Phone | | + + + | Preferred Language | Unknown | + + + | Marital Status | | + + + | Pentecostalism Affiliation | 1061 | + + + [...] Team Providers + +------+ + | Care Slimer Name | Role | Phone | + [...] Monitor | CARDIOLOGY [address] | [address] [place] | Interrogation | | | | [place], | 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 for remote interrogation results. Data collected [...] Chamber, MRI compatible, 05/14/17 [facility] Rupert Bidr | + + | Cardiac pacemaker in situ | + + | Tachycardia-bradycardia syndrome (HCC) | + + | Sinoatrial node dysfunction | + +"
--- OUTSIDE RECORDS SUMMARY | ~2018-12-28 | XMS | Encounter Summary ---
Demographics + + + | Address | [address] | | | [place] [address] | + + + | Home Phone [...] Team Providers + +------+ + | Care Machinist Apprentice Wood Name | Role | Phone | + [...] Monitor | CARDIOLOGY [address] | [address] [place] | Interrogation | | | | [place], | 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 Data [...]
--- OUTSIDE RECORDS SUMMARY | ~2018-12-28 | XMS | Encounter Summary ---
Demographics + + + | Address | [address] | | | [place] [address] | + + + | Home Phone [...] Team Providers + +------+ + | Care Collection Manager Name | Role | Phone | [...] [address] | MD [address] | for labs prior to | | | | [place], | 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) | +--------+ + + + + | 12/23/ | Office | Cardiology | Emely Gabriel, | | | 2019 | Visit | | DIRECTOR OF DEMENTIA OPERATIONS [address] [place] | | | | | | St [place], [place] | | | | | | [address] | | | | | | | [...] disease involving | | | | | [place] coronary | | | | | artery of [place] | | | | | heart without angina | | | | | pectoris | | + +--------+ + + | Lipid Panel | Routin | Essential | 1 Occurrences | | | e | hypertension | starting 12/17/2018 | | | | Coronary artery | until 12/18/2019 | | | | disease involving | | | | | [place] coronary | | | | | artery of [place] | | | | | heart without [...] disease involving | | | | | [place] coronary | | | | | artery of [place] | | | | | heart without [...] + + | Coronary artery disease involving [place] coronary artery of [place] heart without | | angina pectoris | + +"
--- OUTSIDE RECORDS SUMMARY | ~2018-12-28 | XMS | Clinical Summary ---
Demographics + + + | Address | [address] | | | [place] [address] | + + + | Home Phone | | + + + | Preferred Language | Unknown | + + + | Marital Status | | + + + | Church Affiliation | 1061 | + + + | Race | Unknown | + + + | Ethnic Group | Unknown | + + + Author + + + | Author | [employer] | + + + | Organization | [facility] | + + + | Address [...] Team Providers + +------+ + | Care Account Manager Name | Role | Phone [...] Overview: | | CT scan 2003 at [facility] | + + + + + | Coronary artery disease involving [place] coronary artery of | 12/25/2018 | | [place] heart without angina pectoris | | + + + + + | Overview: Overview: [facility] 11/14/2004 shows preserved left | | ventricular [...] artery disease involving coronary bypass graft of [place] | 09/03/2016 | | heart with angina [...] diuretic therapy | | (furosemide, metolazone).CXR, 09/03/2016 ([facility]): Aortic | | valve prosthesis, mild [...] | | | | | [place] [address] | | | | | | [phone] | | | | | | | [...] + + | MEDICARE | MEDICA | [id number] | | | [address] | | | RE | | | | [place] [address] | | | IP-OP | | | | | + +--------+ +------+ + + | [place] | [place] | [id number] | | [phone] FEE SERVICES A136 | | ADMINISTRATION | CHOICE | | | [phone] | [phone] | | | | | | | [place] | | | | | | | [phone] | + +--------+ +------+ + + | MEDICAID | [place] | | | | [address] | | | | | | | [place], [place] | | | FAMILY | | | | [address] | | | CARE | | | | | + +--------+ +------+ + + | MEDICAID | MEDICA | [id number] | | | [address] | | | ID | | | | [place], [place] | | | [place] | | | | [address] | + +--------+ +------+ + + + [...] | | | [address] | [place] [address] | + +--------+ +--------+ + + | JACKLYN PATEL | Vetera | Self | [birth year] | Home: | [address] | | | ns | | 1935 | +- | [address] | | | Admini | | | [address] | [place] [address] | | | strati | | | | | | | on | | | | | + +--------+ +--------+ + +
--- OUTSIDE RECORDS SUMMARY | ~2018-12-28 | XMS | Encounter Summary ---
Demographics + + + | Address | [address] | | | [place] [address] | + + + | Home Phone | | + + + | Preferred Language | Unknown | + + + | Marital Status | | + + + | Anabaptism Affiliation | 1061 | + + + | Race | Unknown | + + + | Ethnic Group | Unknown | + + + Author + + + | Author | [employer] | + + + | Organization | [facility] [employer] | + + + | Address [...] Team Providers + +------+ + | Care Insurance Sales Producer Name | Role | Phone | [...] + | 12/25/ | Documentati | [facility] | Tawanda Og, | Other (3-STEP) | | 2019 | on Only | Pulmonology [address] | [place] | | | | | [address] | | | | | | [place] | | | | | | [address] | | | | | | [phone] | | | +--------+ + + + [...] AM PST3 step testing Oximetry Exercise (code) 85717 1. At rest on room air: Time:11:41AM [...] Valenz[place] | | | | | | [place] [address] | | | | | | [phone] | | | | | | | | +--------+---------+ + + + as of this encounter Visit Diagnoses Not on filein this encounter"
--- OUTSIDE RECORDS SUMMARY | ~2018-12-28 | XMS | Encounter Summary ---
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 | [address] | [address] | | | | | pulmonary | [address] | Dr KINGSLEY | | | | | disease, | [place], | [place], [place] | | | | | unspecified | [place] [address] | [address] | | | | | ([facility]) | Phone: | Phone: | | | | | Abnormal | [phone] | [phone] | | | | | results of | Fax: | | | | | | pulmonary | [phone] | | | | | | function | | | | | | | studies | | | + +--------+ + + + + Encounter Details +--------+---------+ + + + | Date | Type | Department | Care Team | Description | +--------+---------+ + + + | 12/25/ | Office | [facility] | [place] | Hypoxemia (Primary | | 2019 | Visit | Pulmonology [address] | Johnny Song MD [address] | Dx); Restrictive | | | | [address]uch[address] SWAIN [address] | Lucho Swain E | lung disease; | | | | [place], [place] | [place] [address] | (HFpEF) heart | | | | [address] | [phone] | failure with | | | | [phone] | | preserved ejection | | | [...] 1935 Referred from: Jerson Martin MD [address] [place] [address] Referral reason: COPD HPI: Johnny Siddiqi is [...] intermittent cough. Says he was recently at [place] and was prescribed antibiotics which helped his [...] [facility] L[facility] 1200M, 46 cm, s# [id number]; RV Lead - [facility] LPA 1200M, 52 cm, s# [id number] CHF (congestive heart failure) (HCC) Chronic diastolic [...] [facility] L[facility] 1200M, 46 cm, s# [id number]; RV Lead - [facility] L[facility] 1200M, 52 cm, s# [id number] SKIN LESION EXCISION forehead Family History Problem [...] he had a more recent CXR at [place] 2 weeks ago, I will request a [...] Valenzuela | | | | | | [place] [address] | | | | | | [phone] | | | | | | | [...]
--- OUTSIDE RECORDS SUMMARY | ~2018-12-28 | XMS | Clinical Summary ---
Demographics + + + | Address | [address] | | | [place] [address] | + + + | Home Phone | | + + + | Preferred Language | Unknown | + + + | Marital Status | | + + + | Orthodox Affiliation | 1061 | + + + | Race | Unknown | + + + | Ethnic Group | Unknown | + + + Author + + + | Author | [employer] | + + + | Organization | [facility] [employer] | + + + | Address [...] Providers + +------+ + | Care Inspector Eyeglass Name | Role | Phone | + [...] | | CT scan [address] [facility] | + + + + + | Coronary artery disease involving [place] coronary artery of | 12/25/2018 | | [place] heart without angina pectoris | | + + + + + | Overview: Overview: [facility] 11/14/2004 shows preserved left | | ventricular systolic function, critical aortic stenosis, severe | | one-vessel coronary artery disease. CABG x1 (DNO to LAD)/AVR | | (#23 SJM),prosthetic valve [...] artery disease involving coronary bypass graft of [place] | 09/03/2016 | | heart with angina [...] diuretic therapy | | (furosemide, metolazone).CXR, 09/03/2016 ([facility]): Aortic | | valve prosthesis, mild [...] | | | | | [place] [address] | | | | | | [phone] | | | | | | | [...] + + | MEDICARE | MEDICA | [id number] | | | [address] | | | RE | | | | [place] [address] | | | IP-OP | | | | | + +--------+ +------+ + + | [place] | [place] | [id number] | | [phone] | FEE SERVICES A136 | | ADMINISTRATION | CHOICE | | | [phone] | [phone] | | | | | | | [place] | | | | | | | [phone] | + +--------+ +------+ + + | MEDICAID | [place] | | | | [address] | | | | | | | [place], [place] | | | FAMILY | | | | [address] | | | CARE | | | | | + +--------+ +------+ + + | MEDICAID | MEDICA | [id number] | | | [address] | | | ID | | | | [place], [place] | | | [place] | | | | [address] | + +--------+ +------+ + + + [...] | | | [address] | [place] [address] | + +--------+ +--------+ + + | JACKLYN PATEL | Vetera | Self | [birth year] | Home: | [address] | | | ns | | 1935 | +- | [address] | | | Admini | | | [address] | [place] [address] | | | strati | | | | | | | on | | | | | + +--------+ +--------+ + +
--- OUTSIDE RECORDS SUMMARY | ~2018-12-28 | XMS | Encounter Summary ---
Demographics + + + | Address | [address] | | | [place] [address] | + + + | Home Phone | | + + + | Preferred Language | Unknown | + + + | Marital Status | | + + + | Restorationist Affiliation | 1061 | + + + | Race | Unknown | + + + | Ethnic Group | Unknown | + + + Author + + + | Author | [facility] | | | and [place] | + + + | Organization | [facility] | | [...] Team Providers + +------+ + | Care Stump Blower Name | Role | Phone | + [...] CARDIOLOGY [address] | MD [address] | for labs prior to | | | | [place], | 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) | +--------+ + + + + | 12/23/ | Office | Cardiology | Emely Gabriel, | | | 2019 | Visit | | SUPERVISOR PA[employer] ROLLER [employer]OVERS [address] | | | | | | [place], [place] | | | | | | [address] | | | | | | | [...] disease involving | | | | | [place] coronary | | | | | artery of [place] | | | | | heart without angina | | | | | pectoris | | + +--------+ + + | Lipid Panel | Routin | Essential | 1 Occurrences | | | e | hypertension | starting 12/17/2018 | | | | Coronary artery | until 12/18/2019 | | | | disease involving | | | | | [place] coronary | | | | | artery of [place] | | | | | heart without [...] disease involving | | | | | [place] coronary | | | | | artery of [place] | | | | | heart without [...] + + | Coronary artery disease involving [place] coronary artery of [place] heart without | | angina pectoris | + +"
--- OUTSIDE RECORDS SUMMARY | ~2018-12-28 | XMS | Encounter Summary ---
Demographics + + + | Address | [address] | | | [place] [address] | + + + | Home Phone | | + + + | Preferred Language | Unknown | + + + | Marital Status | | + + + | Alevism Affiliation | 1061 | + + + | Race | Unknown | + + + | Ethnic Group | Unknown | + + + Author + + + | Author | [employer] | + + + | Organization | [facility] [employer] | + + + | Address [...] Team Providers + +------+ + | Care Sinter Press Operator Name | Role | Phone [...] | | | Chronic | Emely E, HELP DESK OPERATOR | Pulmonology | | | | | obstructive | [address] | [address] | | | | | pulmonary | [address] | Dr KINGSLEY | | | | | disease, | [place], | [place], [place] | | | | | unspecified | [place] [address] | [address] | | | | | ([facility]) | Phone: | Phone: | | | | | Abnormal | [phone] | [phone] | | | | | results of | Fax: | | | | | | pulmonary | [phone] | | | | | | function | | | | | | | studies | | | + +--------+ + + + + Encounter Details +--------+---------+ + + + | Date | Type | Department | Care Team | Description | +--------+---------+ + + + | 12/25/ | Office | [facility] | [place] | Hypoxemia (Primary | | 2019 | Visit | Pulmonology [address] | Johnny Song MD [address] | Dx); Restrictive | | | | [address] | Lucho Swain E | lung disease; | | | | [place], [place] | [place] [address] | (HFpEF) heart | | | | [address] | [phone] | failure with | | | | [phone] | | preserved ejection | | | [...] 1935 Referred from: Jerson Martin MD [address] [place] [address] Referral reason: COPD HPI: Johnny Siddiqi is [...] intermittent cough. Says he was recently at [place] and was prescribed antibiotics which helped his [...] [facility] LPA 1200M, 46 cm, s# [id number]; RV Lead - [facility] LPA 1200M, 52 cm, s# [id number] CHF (congestive heart failure) (HCC) Chronic diastolic [...] [facility] L[facility] 1200M, 46 cm, s# [id number]; RV Lead - [facility] LPA 1200M, 52 cm, s# [id number] SKIN LESION EXCISION forehead Family History Problem [...] he had a more recent CXR at [place] 2 weeks ago, I will request a [...] Valenzuela | | | | | | [place] [address] | | | | | | [phone] | | | | | | | [...]
--- OUTSIDE RECORDS SUMMARY | ~2018-12-28 | XMS | Clinical Summary ---
Demographics + + + | Address | [address] | | | [place] [address] | + + + | Home Phone | | + + + | Preferred Language | Unknown | + + + | Marital Status | | + + + | Bahai Affiliation | 1061 | + + + | Race | Unknown | + + + | Ethnic Group | Unknown | + + + Author + + + | Author | [facility] | | | and [place] | + + + | Organization | [facility] | | | [...] Team Providers + +------+ + | Care Museum Exhibit Designer Name | Role | Phone | + [...] St | | Rupert Assurity MRI [id number] 05/14/[address] [facility]pert Tendril | | MRI [id number] 05/14/[address] [facility]pert Tendril MRI | | [id number] 05/14/17 Indication: Tachycardia-Bradycardia | | Syndrome. | [...] | Acute renal failure (ARF) ([facility]) | 04/01/2015 | + + + [...] + | Overview: CT scan 2004 at [facility] | + + + +---+ | Coronary artery disease involving [place] coronary artery of | | | [place] heart without angina pectoris | | + [...] | Atrial fibrillation with RVR ([facility]) | 03/19/20 | | | | [...] | Monitor | | MD [address] | Interrogation | | | | | 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) | +--------+ + + + + | 12/23/ | Office | | Emely Gabriel, | | | 2019 | Visit | | BUS AND RAIL OPERATOR [address] | | | | | | [place], [place] | | | | | | [address] | | | | | | | [...] | [facility] | | 06/20/ | [id number] | | [id number]: Qty: 1 | | Heart | MEDICAL - | | 2017 | 0M/52 | | on 05/14/2017 by Marge, | | | CHRISTOPHER | | | /[id number] | | MD Cruzito | | | | | | 8427 / | + +------+-------+ +--------+--------+--------+ | Lead Tendril Mri 46cm - | | N/A: | [facility] | | 07/20/ | [id number] | | [id number]: Qty: 1 | | Heart | MEDICAL - | | 2016 | 0M/46 | | on 05/14/2017 by Marge, | | | CHRISTOPHER | | | /[id number] | | MD Cruz[place] | | | | | | 3446 / | + +------+-------+ +--------+--------+--------+ | Pacer Assurity Mri Dr Rf - | | N/A: | [facility] | | 08/20/ | [id number] | | [id number]: Qty: 1 on | | Heart | MEDICAL - | | 2017 | | | 05/14/2017 by Marge, | | | STJU | | | /[id number] | | MD Cruzito | | | [...] + | Cruzito Bird MD - 01/18/2019 3089 PDT Date of Remote Interrogation: 10/21/18Refer | | to [employer] documentation and remote PDF scanned into [facility] for remote interrogation | | results. [...] +--------+ +---------+ | MEDICARE | MEDICA | [id number] | Medica | [phone] | | | RE | | re | [phone] | | | | PART A | | | | | | | AND B | | | | | + +--------+ +--------+ +---------+ | [employer] | MODA | [id number] | Medica | +- | | | MEDICAID HMO | HEALTH | | id | 9821 | | | | MDCD | | | | | | | [place]MO [place] | | | | | + +--------+ +--------+ +---------+ | [place] | [place]ET[place] | [id number] | Indemn | | | | | [...] | | | [address] | [place] [address] | + +--------+ +--------+ + + | JACKLYN PATEL | Specia | Self | [birth year] | Home: | [address] | | | l | | 1935 | [phone] | | | Servic | | | [address] | [place] [address] | | | es | | | | | + +--------+ +--------+ + +
[~2018-12-28 16:12] MED LIST changes: -LEVOTHYROXINE25 MCG PO; -LIPITOR10 MG PO; +LIPITOR20 MG PO; -REFRESH TEARS15 ML OU; -SYMBICORT 16010.2 GM INH; +SYMBICORT 80-10.2 GM INH; +SYNTHROID50 MCG PO; +ZITHROMAX250 MG PO
--- OUTSIDE RECORDS SUMMARY | 2018-12-28 16:14 | XMS ---
PreManage Notification: JACKLYN PATEL Security Shift Stacker Events No recent Security Events currently on file CRITERIA MET - Group Notification - [facility] - Has Care Guidelines - [facility] - 2 Visits in 30 Days CARE PROVIDERS Colette Bryant Senior Engineering Manager/Wallpaper Printer 07/23/2017-Current PHONE: [phone] ALBERTO NICHOLSON [facility] Current PHONE: Unknown Eddi Rivera Senior Engineering Manager/Wallpaper Printer 07/23/2017-Current PHONE: [phone] SAIMA ANDERSON 07/10/2018-Current PHONE: Unknown Eddi Rivera Primary Care 07/23/2017-Current PHONE: [phone] DR SAIMA ANDERSON Primary Care Current PHONE: [phone] Alberto Nicholson DO Treatment Current PHONE: Unknown Rikki has no Care Guidelines for this patient. Care History Medical/Surgical 02/12/2018 [facility] Care Recommendation: This patient has had 5 or more Emergency Department visits in the last 12 months. Patient requires education on the scope and purpose of the ED as an acute care provider not a Primary Care Provider and should not be utilized for chronic conditions. If patient returns to ED please contact Community Health WorkerAnamaria at [phone]. These are guidelines and the provider should exercise clinical judgment when providing care. E.D. VISIT COUNT (12 MO.) 5 [facility] TOTAL 5 NOTE: Visits indicate total known visits. ED/UCC VISIT TRACKING (12 MO.) 12/28/2018 16:13 [facility] TYPE: Emergency COMPLAINT: - SOB 12/08/2018 13:55 [facility] TYPE: Emergency COMPLAINT: - COLD SYMPTOMS DIAGNOSES: - Heart failure, unspecified - Other penitentiary (current) drug therapy - Latex allergy status - Obesity, unspecified - Hyperlipidemia, unspecified - Dizziness and giddiness - Other specified respiratory disorders - Chronic kidney disease, unspecified - Hypertensive heart and chronic kidney disease with heart failure and stage 1 through stage 4 chronic kidney disease, or unspecified chronic kidney disease 11/01/2018 10:16 [facility] TYPE: Emergency COMPLAINT: - L ARM PAIN/SWELLING/NO INJURY DIAGNOSES: - Hyperlipidemia, unspecified - Pain in left wrist - retirement (current) use of anticoagulants - Obesity, unspecified - Other penitentiary (current) drug therapy - Gout, unspecified - Hypertensive heart disease with heart failure - Heart failure, unspecified 07/09/2018 12:50 [facility] TYPE: Emergency COMPLAINT: - SOB 02/11/2018 14:07 [facility] TYPE: Emergency COMPLAINT: - NAUSEA/VOMITING DIAGNOSES: - retirement (current) use of anticoagulants - Essential (primary) hypertension - Other long term acute care registered nurse (current) drug therapy - Nausea with vomiting, unspecified - Hyperlipidemia, unspecified - Hyperkalemia INPATIENT VISIT TRACKING (12 MO.) 07/09/2018 12:51 [facility] TYPE: Medical Surgical COMPLAINT: - CHF EXACERBATION DIAGNOSES: - retirement (current) use of anticoagulants - Paroxysmal atrial fibrillation - Heart failure, unspecified - Hyperlipidemia, unspecified - Presence of cardiac pacemaker - Presence of aortocoronary bypass graft - Chronic kidney disease, stage 3 (moderate) - Obesity, unspecified - Patient's other noncompliance with medication regimen - Sleep disorder, unspecified - Other chronic pain - retirement (current) use of inhaled steroids - Body mass index (BMI) 34.0-34.9, adult - Chronic obstructive pulmonary disease, unspecified - Other long term acute care registered nurse (current) drug therapy - Gout, unspecified - Unspecified hearing loss, unspecified ear - Hypertensive heart and chronic kidney disease with heart failure and stage 1 through stage 4 chronic kidney disease, or unspecified chronic kidney disease - Atherosclerotic heart disease of [place] coronary artery without angina pectoris - Low back pain - Presence of prosthetic heart valve - Acute on chronic diastolic (congestive) heart failure - Alcoholic cirrhosis of liver without ascites [email or web address]
--- NOTE | 2018-12-28 20:00 | NUR ---
PATIENT ARRIVED TO THE FLOOR VIA STRETCHER. PATIENT WAS ABLE TO AMBULATE TO THE RESTROOM A 1PA W/FWW FROM STRETCHER. PATIENT WAS ABLE TO VOID. NEW ATTEND PLACED ON PATIENT. PATIENTS STANDING WEIGHT RECORDED. PATIENT IS NOW IN BED RESTING. PATIENTS ADMISSION COMPLETED. PATIENT PROVIDED WITH SANDWICH BOX PER REQUEST. PATIENT EDUCATED ON FLUID RESTRICTION. PATIENT VERBALIZES UNDERSTANDING. PATIENT EDUCATED MACHINED PARTS QUALITY INSPECTOR LIGHT. PATIENT OREINTED TO ROOM AND FLOOR. PATIENTS EVENING MEDICATIONS GIVEN PER ORDER. PATIENTS SON IS IN THE ROOM. PATIENT AND SON DENY ANY COMMENTS, QUESTIONS OR CONCERNS. CALL LIGHT IN REACH.
--- NOTE | 2018-12-28 20:25 | NUR ---
patient asked if he could get the head of his bed lowered and his feet raised along with an extra pillow. call light was in place along with bedside table.
--- NOTE | 2018-12-28 20:48 | NUR ---
patients daughter called and i assisted him in answering the phone. call light was in place along with bed side table.
--- NOTE | 2018-12-28 21:43 | NUR ---
ASSESSMENT COMPLETE. PT DENIES PAIN, A/O TO SELF, DATE, LAOCATION, AND EVENTS. PT ON RA, VSS. MEDICATIONS GIVEN PREVIOUSLY BY CREDIT SUPPORT SPECIALISTSAMEER YANG (SEE EMAR). PT UP SBA W WHEELCHAIR TO VOID. PT RESTING IN BED, BLE ELEVATED PER PT REQUEST. WARM BLANKET PROVIDED PER REQUEST. IV SITE WNL. PT DENIES FURTHER NEEDS, CALL LIGHT IN REACH. BED ALARM ON FOR SAFETY.
--- NOTE | 2018-12-28 21:46 | NUR ---
vitals and I&Os were completed by SAMEER Moura when patient was admitted.
--- NOTE | 2018-12-28 23:24 | NUR ---
PATIENT USED CALL LIGHT TO ASK FOR ASSISTANCE USING THE RESTROOM. URINAL WAS USED AND PATIENT ASKED FOR ADDITIONAL BLANKETS. CALL LIGHT AND BEDSIDE TABLE IS IN PLACE.
--- NOTE | 2018-12-28 23:33 | NUR ---
PT RESTING IN BED, EYES CLOSED, RR WNL. NO DISTRESS NOTED. PT ON RA. BLE ELEVATED. CALL OLIGHT IN REACH.
--- NOTE | 2018-12-29 | NUR ---
THIS RN DISCUSSED WITH INTERACTIVE MEDIA SPECIALIST REGARDING PT'S LAB ORDERS. TROPONIN ORDERED, TIME SCHEDULED FOR 0600, BUT STAT WAS ALSO NOTED. REVIEWED ORDER WITH INTERACTIVE MEDIA SPECIALIST AND INSTRUCTED NOT NECESSARY TO CALL DR WALTERS AT THIS TIME MD PUT IN THE ORDER. IF OTHER NECESSARY CALL TO MD IS REQUIRED, CLARIFICATION CAN BE MADE IF NECESSARY.
--- NOTE | 2018-12-29 01:45 | NUR ---
PT PLACED ON 0.5-1LNC FOR O2 SAT MAINTAINING IN UPPER 80'S. ORAL TEMP OF 99.6, PT HAS MULTIPLE BLANKETS ON. EXCESS BLANKETS REMOVED. PT INSTRUCTED TO COUGH, TURN, AND DEEP BREATH. WILL MONITOR. NO FURTHER NEEDS, CALL LIGHT IN REACH.
--- NOTE | 2018-12-29 01:50 | NUR ---
PT IN BED RESTING WITH EYES CLOSED. APPEARS COMFORTABLE. RR WNL, TELE #5, PACED, HR 60. CALL LIGHT IN REACH.
--- NOTE | 2018-12-29 03:46 | NUR ---
ASSESSMENT COMPLETE, NO NEW CONCERNS. PT DENIES PAIN. ORAL TEMP CHECK OF 98.8. O2 SAT LOW 90'S ON 0.5L NC. PT SOB AT THIS TIME. QUESTIONS ANSWERED REGARDING RATIONALE FOR FLUID RESTRICTION BY THIS RN. PT DENIES ADDITIONAL NEEDS. CALL LIGHT IN REACH.
--- NOTE | 2018-12-29 05:49 | NUR ---
PT ARRIVED FROM THE ED AT BEGINNING OF SHIFT. PT A/O, DENIED PAIN ALL SHIFT. VSS, PT USUALLY ON RA, BUT REQUIRED 0.5LNC WHILE SLEEPING. PT SBA W/ WALKER. CARDIAC DIET, 1600 MLS FLUID RESTRICTION, TOLERATING WELL. BOWEL TONES ACTIVE. PT VOIDING QS. NO BM THIS SHIFT. DARKENED BLE ON SHINS. PT TAKING WARFARIN DUE TO A-FIB. USES CALL LIGHT APPROPERIATELY.
--- NOTE | 2018-12-29 06:28 | NUR ---
VS and I&Os were complete. currently waiting for patient to wake up a little bit more for his daily weight. he asked to use the urinal in bed while i was in his room.
--- NOTE | 2018-12-29 06:32 | NUR ---
SAMEER Moura and myself got patient out of bed and got him weighed.
--- NOTE | 2018-12-29 06:33 | NUR ---
scheduled thyroid pill administered. call light in reach.
--- NOTE | 2018-12-29 06:33 | NUR ---
pt sating on 0.5 in mid 90's, pt titrated to ra. will monitor. pt denies sob. call light in reach.
--- NOTE | 2018-12-29 07:15 | NUR ---
critical troponin value of 0.[address] hernandez. no new orders.
--- NOTE | 2018-12-29 07:20 | NUR ---
pt's daughter cassie boyle called for update. daughter not on list, verbal okay from pt to give update. update provided all questions answered.
--- NOTE | 2018-12-29 07:22 | EKG ---
[facility] [address] [facility] [place] [address] Signed Atrial-paced rhythm Left axis deviation Left bundle branch block Abnormal ECG When compared with ECG of 08-DEC-2018 14:57, No significant change was found Confirmed by ZEE WALTERS MD ([id number]) on 12/29/2018 7:22:24 AM Electronically Signed By: ZEE WALTERS MD 12/29/18 0722 PATIENT NAME: JACKLYN PATEL Electrocardiogram DATE OF : 31 PHYSICIAN: ZEE WALTERS MD REPORT #: [id number] REPORT IS CONFIDENTIAL AND NOT TO BE RELEASED WITHOUT AUTHORIZATION
--- NOTE | 2018-12-29 08:18 | NUR ---
PATIENT UP TO CHAIR, 1PA FWW. WARM BLANKETS GIVEN. CALL LIGHT IN REACH. NO FURTHER NEEDS AT THIS TIME.
--- NOTE | 2018-12-29 09:06 | NUR ---
PT SITTING UP IN RECLINER, SON AT SIDE. APPLIED PT'S PERSONAL LEG WRAPS PER PT'S REQUEST.
--- NOTE | 2018-12-29 10:06 | NUR ---
PT UP, AMBULATED IN GRIER WITH SARAHI PHYSICAL THERAPIST. NOW BACK TO ROOM. WAS UP WITH FWW AND GAIT BELT, WITH 1 PERSON ASSIST.
--- NOTE | 2018-12-29 10:25 | NUR ---
PT LIVES AT [facility], HAS GOOD FAMILY SUPPORT, ALSO HAVE CAREGIVERS 3-4 HOURS PER DAY EVERY DAY OF THE WEEK.
--- NOTE | 2018-12-29 11:22 | NUR ---
PATIENT UP TO BATHROOM AND BACK TO BED, RN IN ROOM. WARM BLANKETS GIVEN. CALL LIGHT IN REACH. NO FURTHER NEEDS AT THIS TIME.
--- NOTE | 2018-12-29 12:41 | NUR ---
GAVE PT SCHEDULED MEDICATIONS. PT SLEEPING, AROUSED TO VOICE. REPORTED THAT HE DID NOT SLEEP WELL LAST NIGHT. DENIED NEEDS. CONTINUES TO HAVE A LOOSE COUGH, EXPECTORATED SMALL AMOUNT OF THIN YELLOW SPUTUM INTO TISSUE. PT HAS PERSONAL SUPPLIES AND CALL LIGHT IN REACH. SPOKE WITH PT REGARDING DIAGNOSIS OF INFLUENZA A. EXPLAINED ABOUT DROPLET PRECAUTIONS. EDUCATION GIVEN TO PT REGARDING TAMIFLU PURPOSE AND SIDE EFFECTS. PT VERBALIZED UNDERSTANDING.
--- NOTE | 2018-12-29 13:29 | NUR ---
PT IS RESTING IN BED, SAID HE WAS CHILLED. FELT LIKE THE HOSPITAL TEMP WAS JUST COLD. HAD A PLEASANT VISIT, PT REQUESTED PRAYER, AND HAD TANJA CORTEZ TAKE CARE OF WARM BLANKET FOR PT. WILL FOLLOW NEEDED
--- NOTE | 2018-12-29 13:46 | NUR ---
PT CALLED NURSES STATION SAID "I NEED HELP" RN INTO ROOM PT HAS AUDIBLE RESPIRATORY SECRETIONS AND RR 24 PER MIN. OXYGEN SATURATION CHECKED, 73% ON ROOM AIR, 2L OXYGEN PLACED N.C. AT THIS TIME PT WENT UP TO 80%, THEN 4L 95%, IT WAS NOTED THAT WHEN THE PT WAS ABLE TO WATCH THE PULSE OXIMETRY MACHING, HIS BREATHING INCREASED, VERBALIZING "OH GORGE, OH DEAR GORGE" ROCKING BACKA ND FORTH, WHEN UNABLE TO SEE PULSE OXIMETRY MACHINE PT CALMED.SOOTHED AND WAS ABLE TO TITRATE TO 2L SATURATION 92% MD NOTIFIED WHEN PT WAS PLACED ON OXYGEN. ALL V/S STABLE TEMP 99.7.
--- NOTE | 2018-12-29 13:50 | NUR ---
Faxed [facility] for patient's current meds 12/29 @ 3440
--- NOTE | 2018-12-29 13:53 | NUR ---
PT IN BED, HOB ELEVATED. ON VIA NC, OXYGEN SAT 92%. PERSONAL SUPPLIES AND CALL LIGHT IN REACH.
--- NOTE | 2018-12-29 13:55 | NUR ---
PT NOW RESTING IN BED HEAD OF BED ELEVATED. MAINTAINING 95% ON 2L.
[2018-12-29] MEDS ORDERED: COLCRYS0.6 MG PO (14:08)
--- NOTE | 2018-12-29 14:11 | NUR ---
PATIENT UP TO CHAIR, 1PA FWW. FRESH WATER GIVEN. CALL LIGHT IN REACH. NO FURTHER NEEDS AT THIS TIME.
[2018-12-29] MEDS ORDERED: COZAAR25 MG PO (14:12)
[2018-12-29] MEDS ORDERED: FLOMAX0.4 MG PO (14:15)
[2018-12-29] MEDS ORDERED: TINACTIN108 GM TOP (14:16)
[2018-12-29] MEDS ORDERED: NYSTATIN15 GM TOP (14:17)
--- NOTE | 2018-12-29 14:18 | NUR ---
NOTIFIED OF PT TEMP 102.1 WILL GIVE TYLENOL.
[2018-12-29] MEDS ORDERED: TESSALON PERLE100 MG PO (14:19)
[2018-12-29] MEDS ORDERED: GUAIFENESIN DM S5 ML PO (14:20)
--- NOTE | 2018-12-29 14:24 | NUR ---
Medications reconciled from [facility] pharmacy records
[2018-12-29] MEDS ORDERED: REFRESH TEARS15 ML OU (14:31)
--- NOTE | 2018-12-29 15:00 | NUR ---
PT AMBULATED TO BATHROOM TO VOID, THEN TO BED USING FWW, WITH 1 PERSON ASSIST. REMAINS ON 2L O2, OXYGEN SAT 92%. HOB ELEVATED. PT PROVIDED WITH FRESH ICE WATER. PERSONAL SUPPLIES AND CALL LIGHT IN REACH. PT CONTINUES TO COUGH, LOOSE, OCCASIONALLY PRODUCTIVE.
--- NOTE | 2018-12-29 15:10 | NUR ---
SEE PRIOR NOTE BY NS.MIYA REGARDING NOTIFICATION OF MD OF ELEVATED TEMP, INTERVENTION.
--- NOTE | 2018-12-29 16:26 | NUR ---
NOTIFIED DR. WALTERS VIA TELEPHONE THAT PT'S TEMP WAS REASSESSED, AND AXILARY TEMP IS 100.4. NO NEW ORDERS AT THIS TIME.
--- NOTE | 2018-12-29 16:42 | NUR ---
GAVE PT MOTRIN 400 MG PO PRN TEMP 100.4.
--- NOTE | 2018-12-29 18:24 | NUR ---
NOTIFIED DR. WALTERS OF PT'S BP OF 93/43 VIA TELEPHONE. ALSO NOTIFIED DR. WALTERS THAT PT'S TEMP IMPROVED, 98.4.
--- NOTE | 2018-12-29 18:31 | NUR ---
LAB POSITIVE FOR INFLUENZA A: DROPLET PRECAUTIONS IN PLACE. PT HAS PRODUCTIVE COUGH. DESATURATED ON RA THIS SHIFT, NOW ON 2L O2 TO MAINTAIN SATS IN LOW 90%s. LUNGS COARSE THROUGHOUT. SHORT OF BREATH WITH MUCH EXERTION. IS ABLE TO AMBULATE TO AND FROM BATHROOM WITH FWW WITH 1 PERSON ASSIST. HAS HAD LOOSE STOOLS X 2 THUS FAR THIS SHIFT. TEMP ELEVATED, 102.1, ACETAMINOPHEN GIVEN PRN, REASSESSED, TEMP 100.4, MOTRIN GIVEN, AND MOST RECENT TEMP 98.4. PT WAS ON A FLUID RESTRICTION, THIS WAS D/C'D THIS SHIFT. PT HAD A BP OF 93/43 THIS EVENING, DR. WALTERS AWARE. PT TO HAVE A BNP DRAWN 12/30/18 AM.
--- NOTE | 2018-12-29 19:28 | NUR ---
RECIEVED CHANGE OF SHIFT REPORT FROM LUISA ESTRELLA. PATIENT RESTING IN BED WITH EYES CLOSED, RESPIRATORY RATE IS EVEN AND UNLABORED, 2L VIA NC, CPOX WNL. DROPLET PRECAUTIONS. WHITE BOARD UPDATED. CALL LIGHT WITHIN REACH.
--- NOTE | 2018-12-29 20:10 | NUR ---
CHARGE NURSE REPORT RECEIVED, PT IN ISOLATION D/T FLU, EYES CLOSED, RESP EVEN AN UNLABORED.
--- NOTE | 2018-12-29 21:23 | NUR ---
NOTIFED DR. WALTERS OF PATIENT'S LOW BLOOD PRESSURES OF "80/65" AND "95/48". DR. WALTERS STATED TO HOLD EVENING DOSE OF METOPROLOL TARTRATE, VERIFIED ORDER VIA READ BACK. NO OTHER NEW ORDERS.
--- NOTE | 2018-12-29 21:34 | NUR ---
ASSESSMENT COMPLETE. MEDICATIONS ADMINISTERED PER ORDER. PATIENT DROWSY DURING ASSESSMENT, ABLE TO BE AROUSED BY PHYSICAL AND VERBAL STIMULI, PATIENT CONTINUED TO FALL ASLEEP DURING ORIENTATION QUESTIONS, UNABLE TO COMPLETE ORIENTATION QUESTIONS, PATIENT ABLE TO STATE NAME. IV ASSESSED TO BE FUNCTIONING PROPERLY, WNL. PATIENT DENIES CHEST PAIN, SOB, OR DIFFICULT BREATHING. LONG STOCKINGS IN PLACE ON BLE, BLE ELEVATED. 2L VIA NC, NO SIGNS OF RESPIRATORY DISTRESS. ATTENDS IN PLACE. CPOX IN PLACE, WNL. PER PATIENT REPORT, PATIENT FEELS DIZZY WHILE STANDING. CALL LIGHT WITHIN REACH. NO MORE NEEDS AT THIS TIME.
--- NOTE | 2018-12-29 21:54 | NUR ---
V/S AND I&O DONE AND CHARTED. KARUNA/ORAL CARE DONE. DENTURES SOAKED IN THE CONTAINER.
--- NOTE | 2018-12-30 00:48 | NUR ---
PATIENT RESTING IN BED WITH EYES CLOSED, RESPIRATORY RATE IS EVEN AND UNLABORED. CALL LIGHT WITIN REACH.
--- NOTE | 2018-12-30 02:00 | NUR ---
ASSESSMENT COMPLETE, REFER TO ASSESSMENT. PATIENT DENIES CHEST PAIN, SOB, OR DIFFICULTY BREATHING. PATIENT DISORIENTED TO DATE, BUT ORIENTED TO ALL OTHER. PATIENT EXHIBITS WITH AN OCCASIONAL NON PRODUCTIVE COUGH. BLOOD PRESSURE REASSESSED, LOWER BLOOD PRESSURE STILL REMAINS. PATIENT REPOSITIONED IN BED. HEAD OF BED ELEVATED. CALL LIGHT WITHIN REACH. 2L VIA NC. NO MORE NEEDS AT THIS TIME.
--- NOTE | 2018-12-30 04:05 | NUR ---
ROUNDED ON PATIENT RESTING IN BED WITH EYES CLOSED, RESPIRATORY RATE IS EVEN AND UNLABORED. CPOX, WNL. CALL LIGHT WITHIN REACH.
--- NOTE | 2018-12-30 06:05 | NUR ---
PATIENT SLEPT WELL THROUGHOUT THE NIGHT. BLE ELEVATED. CARDIAC DIET (2GM) SODIUM. CPOX, WNL. PT/OT. INCONTINENT, ATTENDS IN PLACE, PATIENT USED URINAL TOWARDS END OF SHIFT. 1PA WITH FWW. DROPLET PRECAUTIONS. DAILY WEIGHT MONITORING. LOWER BLOOD PRESSURE DURING THIS SHIFT, DR. WALTERS AWARE. SALINE LOCKED. 2L VIA NM.
--- NOTE | 2018-12-30 06:55 | NUR ---
ROUNDED ON PATIENT FOR MEDICATION ADMINISTRATION PER MAR ORDER. SHINS ASSESSED, REFER TO SKIN ASSESSMENT. PATIENT REPORTS SHINS BEING PAINFUL WHEN TOUCHED. SMALL PAPER GARBAGE BAG PLACED AT BEDSIDE PER PATIENT REQUEST. CALL LIGHT WITHIN REACH. NO MORE NEEDS AT THIS TIME. NO SIGNS OF DISTRESS.
--- NOTE | 2018-12-30 07:25 | NUR ---
RECIEVED BEDSIDE REPORT FROM SAMEER MANE. PT IN BED, ON 2L O2, AWAKE, ALERT. PERSONAL SUPPLIES AND CALL BUTTON IN REACH.
--- NOTE | 2018-12-30 07:27 | NUR ---
NOTIFED DR. WALTERS OF PATIENT'S LOW URINE OUTPUT THIS SHIFT, NO NEW ORDERS AT THIS TIME.
--- NOTE | 2018-12-30 08:09 | NUR ---
PATIENT UP TO CHAIR, 1PA FWW. CALL LIGHT IN REACH. NO FURTHER NEEDS AT THIS TIME.
--- NOTE | 2018-12-30 09:00 | NUR ---
PT'S BP LOW, 106/37, DR. WALTERS NOTIFIED, RECIEVED VORB TO HOLD AM DOSE OF PACERONE AND METOPROLOL FOR NOW. WILL CONTINUE TO MONITOR. PT DENIES FEELING LIGHT HEADED OR DIZZY. PT SITTING UP IN RECLINER. COUGHING, NON PRODUCTIVE BUT MOIST SOUNDING. PERSONAL SUPPLIES AND CALL LIGHT IN REACH.
--- NOTE | 2018-12-30 09:30 | NUR ---
PATIENT IN CHAIR RESTING. FRESH WATER GIVEN. LINENS CHANGED. PATIENT REFUSED SHOWER AT THIS TIME. CALL LIGHT IN REACH. NO FURTHER NEEDS AT THIS TIME.
--- NOTE | 2018-12-30 11:23 | NUR ---
PATIENT UP TO BSC, REPORTED NEED TO HAVE BM. PATIENT PASSING GAS AND VOIDED 100 ML OF CONCENTRATED URINE. PATIENT SHAKY WITH EXERTION, AND NEEDING REASSURANCE WITH BREATHING.
--- NOTE | 2018-12-30 11:31 | NUR ---
PT SITTING UP IN RECLINER, LEGS ELEVATED. HAS 2L O2 ON VIA NC, OXYGEN SATURATION LEVEL 94%. PT DENIED PAIN. ENCOUARAGED DEEP BREATH AND COUGH, PT RETURN DEMONSTRATED. PT HAS PERSONAL SUPPLIES AND CALL LIGHT IN REACH.
--- NOTE | 2018-12-30 11:34 | NUR ---
DA, PHYSICAL THERAPY IN WORKING WITH PT, DOING IN BED EXERCISES AT THIS TIME.
--- NOTE | 2018-12-30 12:20 | NUR ---
PT SITTING UP IN RECLINER. ATE 70% OF LUNCH. DRINKING WATER. ON 2L O2 VIA NC. PERSONAL SUPPLIES AND CALL LIGHT IN REACH. DENIES NEEDS.
--- NOTE | 2018-12-30 13:12 | NUR ---
PT CALL LIGHT ON. PT REQUESTS ASSISTANCE UP TO RESTROOM. 1PA, FWW UP TO RESTROOM. PT VOIDS WITHOUT ISSUE. PT BACK TO CHAIR. CONTINIOUS PULSE OX READS 91% ON 2L O2 NC. CALL LIGHT WITHIN REACH. NO ADDITIONAL REQUESTS OR COMPLAINTS AT THIS TIME.
--- NOTE | 2018-12-30 14:03 | NUR ---
PT SITTING UP IN RECLINER, AWAKE, ALERT. REMAINS ON 2L O2 VIA NC, OXYGEN SATURATION LEVEL 93-94%. PT DENIES SHORTNESS OF BREATH OR CHEST PAIN. DENIES PAIN. PERSONAL SUPPLIES IN REACH, IS CALL BUTTON. PT DENIES NEEDS.
--- NOTE | 2018-12-30 14:47 | NUR ---
PATIENT IN CHAIR WATCHING TV. FRESH WATER GIVEN. CALL LIGHT IN REACH. NO FURTHER NEEDS AT THIS TIME. TEMP AND BP HIGH RN NOTIFIED.
--- NOTE | 2018-12-30 15:08 | NUR ---
PT'S TEMPERATURE 100.6. NOTIFIED DR. WALTERS VIA TELEPHONE THAT PT'S TEMP WAS 100.6, AND THAT THIS RN WOULD ADMINISTER PRN ACETAMINOPHEN. NO NEW ORDERS AT THIS TIME. PT SITTING UP IN RECLINER. HAS MOIST COUGH, NONPRODUCTIVE AT THIS TIME. PT DENIES PAIN. REMAINS ON 2L O2 VIA NC. HAS PERSONAL SUPPLIES AND CALL LIGHT IN REACH.
--- NOTE | 2018-12-30 15:14 | NUR ---
SEE PREVIOUS NOTE REGARDING TEMP OF 100.6, NOTIFICATION OF DR. WALTERS. PT RECIEVED ACETAMINOPHEN 650 MG PO PRN ELEVATED TEMPERATURE.
--- NOTE | 2018-12-30 17:21 | NUR ---
PT UP WITH 1 PERSON ASSIST WITH FWW. WORKED WITH PHYSICAL THERAPY, AMBULATED IN HALLWAY WITH MASK ON WITH 1 PERSON ASSIST WITH FWW. ON 2L O2 VIA NC, CONTINOUS PULSE OX. SATS IN LOW 90s. BP LOW THIS AM, SO METOPROLOL AND PACERONE HELD PER DR. WALTERS. JOSE BISHOP, ON CARDIAC 2 GM NA DIET. HAS NS INFUSING AT 75ML/HR, X 1000 ML. INR 2.8, COUMADIN 5 MG PO GIVEN. LUNGS COARSE, WITH CRACKLES IN BASES THIS AFTERNOON. PT HAS A MODERATELY PRODUCTIVE COUGH, THICK GREEN TO YELLOW SPUTUM.
--- NOTE | 2018-12-30 19:17 | NUR ---
CHARGE NURSE REPORT RECEIVED FROM MARY ANNE KUMAR CONTINUES IN ISOLATION R/T INFLUENZA A.
--- NOTE | 2018-12-30 19:20 | NUR ---
RECIEVED CHANGE OF SHIFT REPORT FROM LAURA ESTRELLA. PATIENT RESTING AWAKE IN BED. 2L VIA NC. NO SIGNS OF DISTRESS. IV FLUIDS INFUSING PER ORDER. CPOX IN PLACE, WNL. WHITE BOARD UPDATED.
--- NOTE | 2018-12-30 21:15 | NUR ---
ASSESSMENT COMPLETE. PATIENT DENIES PAIN, SOB, OR DIFFICULY BREATHING. PATIENT REPORTS LLE IS PAINFUL WHEN TOUCHED, BLE ELEVATED ON PILLOW. PATIENT CONFUSED TO DAY OF WEEK AND TO SITUATION, REORIENT PRN. PATIENT EXHIBITED SLIGHT PURSED LIP BREATHING, PATIENT ABLE TO TALK IN CLEAR AND CONCISE SENTENCES, PATIENT DENIES HAVING ANY DIFFICULTY BREATHING OR SOB. SCHEDULED BREATHING TREATMENT PROVIDED PER MAR ORDER, SLIGHT PURSED BREATHING EXHIBITED BEFORE TREATMENT APPEARS TO HAVE IMPROVED AND IS LESS APPARENT AFTER BREATHING TREATMENT, PATIENT DENIES HAVING DIFFICULTY BREATHING. PATIENT PRODUCED SMALL AMOUNT OF THICK LIGHT GREEN SPUTUM. MEDICATIONS ADMINISTERED PER MAR ORDER. URINAL PROVIDED TO PATIENT. IV FLUIDS STILL INFUSING PER ORDER. CALL LIGHT WITHIN REACH. NO MORE NEEDS AT THIS TIME.
--- NOTE | 2018-12-30 22:15 | NUR ---
NOTIFED RT OF PATIENT'S SYMPTOMS DURING ASSESSMENT.
--- NOTE | 2018-12-30 23:30 | NUR ---
NOTIFIED DR. WALTERS OF PATIENT'S LOW URINE OUTPUT, NO NEW ORDERS.
--- NOTE | 2018-12-30 23:43 | NUR ---
ROUNDED ON PATIENT TO ANSWER PATIENT CALL LIGHT. ASSISTED PATIENT IN USING URINAL. CALL LIGHT WITHIN REACH. CPOX WNL. NO MORE NEEDS AT THIS TIME.
--- NOTE | 2018-12-31 02:30 | NUR ---
TICKET WORKER NOTED BLOOD ON PT GOWN, INVESTIGATED, FOUND 1 CM AREA BLEEDING, WAS OVER A BRUISE (ACTINIC PURPURA) AREA, THAT PT ADMITTED WITH. COVERED WITH ALLEVYN. PRIMARY NURSE NOTIFIED.
--- NOTE | 2018-12-31 02:57 | NUR ---
PATIENT CALLED NEED HELP USE THE URINAL. 2 PA CHANGED GOWN AND ATTENDS AND REPOSITIONED. CALL LIGHT AND SIDE TABLE WITHIN REACH.
--- NOTE | 2018-12-31 04:28 | NUR ---
ROUNDED ON PATIENT RESTING AWAKE IN BED. CPOX, WNL. CALL LIGHT WITHIN REACH. NO MORE NEEDS AT THIS TIME.
--- NOTE | 2018-12-31 04:55 | NUR ---
ASSESSEMENT COMPLETE. PATIENT DENIES CHEST PAIN, SOB, OR DIFFICULTY BREATHING. SMALL AMOUNT OF SHADOWING PRESENT ON ALLEYVEN PRESENT ON BACK OF RIGHT UPPER ARM. PATIENT REPORTS "LIGHT GREEN" THICK SPUTUM, NO SPUTUM PRESENT TO VISUALIZE AT THIS TIME. PATIENT REPORTS "JUST NOT FEELING WELL", WHEN ASKED WHY PATIENT STATES THIS PATIENT STATES ITS FROM "JUST COUGHING". 2L VIA NC, NO SIGNS OF DISTRESS. PATIENT ABLE TO TALK IN CLEAR AND CONCISE SENTENCES. PATIENT REFUSED BEING REPOSITIONED IN BED. POSSESSIONS AT BEDSIDE. IV ASSESSED, WNL. NO MORE NEEDS AT THIS TIME. CALL LIGHT WITHIN REACH.
--- NOTE | 2018-12-31 06:21 | NUR ---
rounded on patient awake in bed. scheduled medication adminstration complete per mar order. call light within reach. no more needs at this time.
--- NOTE | 2018-12-31 07:00 | NUR ---
THIS RN WAS NOTIFIED THAT PATIENT'S O2 SATS HAD DROPPED TO "77%" PER REPORTS OF HYDROELECTRIC PRODUCTION TECHNICIAN, HYDROELECTRIC PRODUCTION TECHNICIAN THEN INCREASED PATIENT O2 TO "3L VIA NC", AFTER A FEW MINUTES PATIENT O2 SATS INCREASED TO "91%". THIS RN NOTED THAT PATIENT APPEARED ANXIOUS AND HAVING A DIFFICULT TIME BREATHING. PAULY RN CALLED RT. OXYMASKED PLACED ON PATIENT, HOB ELEVATED. RT IN ROOM ASSESSING PATIENT AND PROVIDING PATIENT WITH BREATHING TREATMENT. DR. WALTERS WAS NOTIFED OF PATIENT STATUS FROM THIS RN. DR. WALTERS ORDERED "40MG OF IV LASIX X1 FOR NOW", ORDER VERIFIED THROUGHT READ BACK METHOD, NO OTHER ORDERS.
--- NOTE | 2018-12-31 07:00 | NUR ---
Pt repositioned in bed: O2 sats at 77% and patient was restlessness and agitated. RN increased oxygen from 2L to 3L per NC. RT called stat. Pt received a duoneb and a second treatment of albuterol. Sats back up to 91% on 3LNC. Pt lung sounds wheezy bilaterally. Pt coughing up thick, green/yellow sputum. Pt breathing labored, RR of 40 breaths per minute prior to duoneb treatment. RR decreased to 20 breaths per minute after treatment, breathing still labored. Pt anxiety level decreased after oxygen titrated to 3L and pt O2 sat reached 91%. This SN and other staff members remained with pt throughout event.
--- NOTE | 2018-12-31 07:08 | NUR ---
Pts pulse ox was alarming at 77%, pt was on his side, he had sliden down in bed, pt appeared anxious, he was grasping the side rale and shaking, repositioned pt and titrated his O2 up to 3L, his O2 came back up to 91%. Put oxy mask on pt. Pts nurse and RT came in to assist pt, he calmed down once his O2 went up.
--- NOTE | 2018-12-31 07:45 | NUR ---
THIS RN PROVIDED BEDSIDE REPORT TO JESSICA RN. PATIENT APPEARS TO HAVE DECREASED DIFFICULTY OF BREATHING COMPARED TO EARLIER. CALL LIGHT WITHIN REACH. NO MORE NEEDS AT THIS TIME. CPJET, WNL.
--- NOTE | 2018-12-31 07:45 | NUR ---
IV lasix administered. IV site patent and flushes without difficulty. Pt IV site has slight erythema around edge of insertion site. RN aware. Pt denies further need at this time.
--- NOTE | 2018-12-31 07:52 | NUR ---
Pt requesting assistance w/ using urinal. Voided 150 mls of dark yellow urine. Chalky odor noted. Pt ambulated to the chair w/ 2-person assist. Breakfast devlivered, 10% of meal eaten independently. Pt states he is no longer hungry. Pt denies further need at this time. Call light in reach.
--- NOTE | 2018-12-31 08:10 | NUR ---
0738: Bedside report recieved from Polly ESTRELLA. The pt is sitting up high in his bed having just recieved a breathing tx from the RT. Pt states his breathing is feeling a bit better at this time. Sat is 92% at this time. Call sheridan is within reach.
--- NOTE | 2018-12-31 08:30 | NUR ---
AM medications administered. Pt able to take PO meds independently and without difficulty. Pt denies any further need at this time.
--- NOTE | 2018-12-31 09:00 | NUR ---
Pt received education on use of IS and acapella to improve breathing and break up secretions. Pt able to do return demonstration successfully for both. Pt temp elevated at 100.1 degrees F. Will continue to monitor temp Q1h. RN aware.
--- NOTE | 2018-12-31 09:07 | NUR ---
THE FLIGHT CREW TIME CLERK AND THIS CELL TENDER HELPER HELP HIM GET IN THE CHAIR. HE SWUNG HIS FEET OVER THE EDGE OF THE BED AND SAT FOR A LITTLE BIT TO CATCH HIS BREATH AND KEEP HIS 0XYGEN STATS UP.
--- NOTE | 2018-12-31 09:49 | NUR ---
Pt ambulated with assist to the br with his walker. Pt tolerated the short walk. Sat decreased to 88% with the activity and quickly returned to 93% once he got back to his chair.
--- NOTE | 2018-12-31 10:00 | NUR ---
Pt ambulated w/ PT, used portable O2 tank at 3LNC while walking twice around the halls. Pt O2 sat dropped to 81% after one loop around the hallway and pt instructed to sit in walker and rest until O2 sats returned to 96% on 3LNC. Pt returned to chair after PT. Temperature at 98.1 degrees F. Pt ambulated to toilet w/ walker, gait unsteady and weak requiring a 2-person assist. 300 mls of dark yellow urine voided. No odor noted. VS taken, RR @ 22 breaths/min, slightly labored. Pt able to ambulate with 2-person assist back to chair. It is noticed at times that pt needs re-orientation to medical equipment i.e. pulse oximeter and treatment plan.
--- NOTE | 2018-12-31 10:05 | NUR ---
PT HAS A TEMP OF 100.1. HE WAS GIVEN AN IS AND INSTUCTED IN IT'S USE. RT COMING TO SEE THE PT AND TO GIVEN HIM A VIBRAPEP.
--- NOTE | 2018-12-31 12:16 | NUR ---
Kuldeep browning in his recliner at this time. He states he feels okay. Sat is 93% on 3l.
--- NOTE | 2018-12-31 12:18 | NUR ---
Pt using his accupella as asked and he states he has been coughing up some phlem. His sat is now 97% and his o2 was decreased to 2l at this time.
--- NOTE | 2018-12-31 12:50 | NUR ---
sat 95%, o2 decreased to 1l.
--- NOTE | 2018-12-31 13:43 | NUR ---
Pt ashiag in his bed eating lunch at this time. He denies any current SOB and his sat on 1l is 92%.
--- NOTE | 2018-12-31 18:07 | NUR ---
PT'S LUNGS SOUNDS REMAIN COARSE. HE STARTED RUNNING A FEVER OF 100.1 THIS AM AND HE WAS GIVEN AND IS AND ACCUPELLA AND INSTUCTED IN THERE USE, TEMP DROPPED TO NORMAL RANGE AND HAS REMAINED THERE FOR THE REST OF THE SHIFT. HE WAS STARTED ON LASIX THIS SHIFT. HE STATES HIS BREATHING FEELS BETTER AND HIS O2 WAS DECREASED FROM 3 TO 1L AND HIS SAT'S REMAIN IN THE LOW 90'S ON THE ONE LITER.
--- NOTE | 2018-12-31 18:50 | NUR ---
PT HELPED BACK INTO HIS BED PER HIS REQUEST. HIS DENTURES WERE PLACE IN A DENTURE CUP WITH EFFERDENT TAB AND TAP WATER. HIS SAT IS 92% ON 1L AT THIS TIME.
--- NOTE | 2018-12-31 19:20 | NUR ---
ENTERED ROOM FOR REPORT. PT'S O2 IS AT 85% ON 3LNC WHICH WAS TURNED UP JUST PRIOR D/T PT'S O2 SAT DROPPING AND PT EXPERIENCING SOB. BEFORE LEAVING ROOM HIS O2 SAT RETURNED TO 95%. CALLED R.T. TO GIVE PT PRN NEB TRT BECAUSE PT CONTINUES TO REPORT FEELING SOB, BUT DOES REPORT IMPROVEMENT. CALL LIGHT IS WITHIN REACH AND PT DENIES FURTHER NEEDS.
--- NOTE | 2018-12-31 19:39 | NUR ---
PATIENTS 02 SATS WENT DOWN TO 73 WHILE HE WAS LAYING DOWN. I SAT HIM UP AND HAD HIM START BREATHING BUT HIS SATS DIDN'T GO UP TO MUCH. I ASKED THE CHARGE NURSE IF I COULD TURN UP THE OXYGEN. SHE SAID YES SO I TURNED IT UP TO 2L AND IT ONLY WENT UP TO LOW EIGHTIES. WHILE SITTING UP STRAIGHT IN BED I STILL HAD THE PATIENT BREATH THROUGH THE NOSE AND OUT THE MOUTH. I TURNED THE OXYGEN UP TO 3L THAT WHEN IT STARTED TO GO UP INTO THE 90'S. NOW HE IS SITTING UP AND BREATHING DEEPLY RT HAS BEEN CALLED AND HIS SATS ARE AT 98. THE NURSES JESSICA AND GIOVANNY HAD BEEN CALLED AND WERE ALSO DOING REPORT. SO THEY WERE ABLE TO HELP HIM FOCUS ON BREATHING AND GET HIS 02 SATS UP.
--- NOTE | 2018-12-31 20:50 | NUR ---
R.Parish NOTIFIED THIS RN THAT PT HAD NEB TRT BUT WAS ANXIOUS AND STILL EXPERIENCING SOB. BAKERY HELPER ANDREAS WAS IN THE ROOM WITH THE PT. HE HAD MUCAS IN HIS THROAT AND BECAME ANXIOUS. HE WAS ABLE TO COUGH IT OUT. HE WAS AT 2LNC AND UPPER 80'S SO TURNED O2 BACK UP TO 3 TO GET IT BACK INTO THE 90'S ON CPOX. RESPIRATIONS ARE COARSE. ENCOURAGED PT TO COUGH AND DEEP BREATHE. PT REPORTS SOME PAIN AND TYLENOL WAS GIVEN. HE DENIES FURTHER NEEDS AT THIS TIME. CALL LIGHT IS WITHIN REACH.
--- NOTE | 2018-12-31 22:35 | NUR ---
IN ROOM TO ADMINISTER IV ABX. PT WAS IN CHAIR BUT ASKED TO GO BACK TO BED. 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 REMINDED PT IT IS LATE AND HE SHOULD TRY TO GET SOME SLEEP. PT DENIES NEEDS AT THIS TIME. CALL LIGHT IS WITHIN REACH.
--- NOTE | 2018-12-31 23:36 | NUR ---
PT IS RESTING WITH EYES CLOSED, RR IS EVEN AND NONLABORED. CALL LIGHT IS CLOSE.
--- NOTE | 2019-01-01 01:16 | NUR ---
PT IS RESTING WITH EYES CLOSED, RESPIRATIONS ARE EVEN AND NONLABORED. CALL LIGHT IS WITHIN REACH.
--- NOTE | 2019-01-01 02:48 | NUR ---
PT IS RESTING WITH EYES CLOSED, RR IS EVEN AND NONLABORED ON 2 LNC AND 95% CPOX. CALL LIGHT IS WITHIN REACH.
--- NOTE | 2019-01-01 03:15 | NUR ---
PT WAS SITTING UP AT EDGE OF BED TRYING TO BLOW NOSE. HE LOOKS SOB BUT DENIES FEELING SOB. AUDIBLE WHEEZES HEARD AND LUNGS SOUND COARSE. HE DENIES NEEDS AT THIS TIME. CALL LIGHT IS WITHIN REACH.
--- NOTE | 2019-01-01 04:11 | NUR ---
ASSISTED PT 1PA WITH FWW TO THE RESTROOM. HE WILL CALL WHEN COMPLETE. CALL STRING IS CLOSE.
--- NOTE | 2019-01-01 04:29 | NUR ---
HELPED PT FROM THE BATHROOM TO THE SCALE AND BACK TO BED. WEIGHT CHARTED. BEDSIDE TABLE AND CALL LIGHT IN REACH. BED ALARM ON. PT NEEDS NOTHING MORE AT THIS TIME.
--- NOTE | 2019-01-01 06:22 | NUR ---
VITALS ,DAILY WEIGHT AND I&OS DONE AND CHARTED. BEDSIDE TABLE AND CALL LIGHT IN REACH. FRESH WATER GIVEN.
--- NOTE | 2019-01-01 06:34 | NUR ---
IN ROOM TO ADMINISTER MEDICATION. PT IS SITTING AT EDGE OF BED. HE DENIES NEEDS AT THIS TIME. CALL LIGHT IS WITHIN REACH.
--- NOTE | 2019-01-01 07:29 | NUR ---
REPORT RECEIVED FROM AIR SHOVEL OPERATOR RN. PT SITTING AT SIDE OF BED WITH 3LNC IN PLACE. CPOX ON WITH SATURATION AT 94% AND HEART RATE OF 68. PT WITH CONGESTED COUGH. ENOCOURAGED IS AND ACCAPELLA USE. STUDENT NURSE ASSISTED WITH FWW TO BATHROOM. CALL LIGHT IN REACH. DENEIS FURTHER NEEDS.
--- NOTE | 2019-01-01 07:30 | NUR ---
RECIEVED REPORT FROM GENERAL OPERATIONS AGENT RN. HELPED PT UP TO THE BATHROOM WITH FFW. PT TOLERATED WELL. RETURNED TO BED. SITTING UP ON THE SIDE OF BED WITH CALL LIGHT IN REACH.
--- NOTE | 2019-01-01 09:00 | NUR ---
ASSESSMENT COMPLETED. LUNGS COURSE THROUGHOUT. NO EDEMA NOTED. CLICK HEARD WITH HEART SOUNDS. PT DENEIS PAIN, BOWEL TONES ACTIVE. NO BM SINCE . BOWEL ROUTINE STARTED. SON AT BEDSIDE. 3L NC IN PLACE, CPOX ON. PT WITH CONGESTED PRODUCTIVE COUGH. LG AMOUNT OF YELLOW MUCOUS EXPRESSED. IS AND ACAPPELLA AT BEDSIDE. CALL LIGHT IN REACH.
--- NOTE | 2019-01-01 09:00 | NUR ---
PT SITTING ON SIDE OF BED FINISHING BREAKFAST. MORNING MEDS GIVEN. IV SITE CHECKED AND LINE FLUSHED. CPOX ON AND AT 94%. HELPED PT MOVE TO CHAIR. SITTING UP RESTING WITH SON IN ROOM.
--- NOTE | 2019-01-01 11:26 | NUR ---
PT WAS IN CHAIR SLEEPING WITH NASAL CANNULA OUT OF NOSE. PUT O2 BACK IN NARES. GAVE MEDS FOR CONSTIPATION. PT HAS NO COMPLAINTS AT THIS TIME. IN CHAIR NAPPING, BRAKES ON CHAIR ON, CALL LIGHT IN REACH.
--- NOTE | 2019-01-01 11:38 | NUR ---
IN TO ADMINISTER BOWL MEDICATION. PT IN CHAIR WITH NC OUT OF NOSE, O2 SATURATION AT 86%. REPLACED NC IN NARES. SATURATIONS UP TO 94% ON 3L. TITRATED O2 TO 2L. SATURATIONS UNCHANGED.
--- NOTE | 2019-01-01 12:19 | NUR ---
PT UP IN CHAIR EATING LUNCH. TITRATED O2 DOWN TO 1L AND O2 REMAINED AT 94%
--- NOTE | 2019-01-01 14:08 | NUR ---
IN TO GIVE MED AND TAKE VITALS. PT SLEEPING IN CHAIR. CPOX ON AND O2 AT 92%. CHAIR BRAKES ON AND CALL LIGHT IN REACH.
--- NOTE | 2019-01-01 16:19 | NUR ---
DISCUSSION WITH DR WALTERS AND THE SON ABOUT POSSIBILITY OF NEEDING SWING BED STATUS. THE SON SEEMED TO THINK THAT MIGHT BE A GOOD IDEA--HE WILL HAVE TO NOTIFY HIS CAREGIVERS ETC.
--- NOTE | 2019-01-01 18:22 | NUR ---
IN PTS ROOM TO CHECK VITALS. HELPED AMBULATE TO THE BATHROOM THEN TRANSFERRED BACK TO CHAIR. CPOX ON WITH O2 SATS AT 93%. LEFT SITTNG UP IN CHAIR EATING DINNER. BRAKES ARE ON CHAIR AND CALL LIGHT IS WITHIN REACH.
--- NOTE | 2019-01-01 18:36 | NUR ---
PT HAD GOOD DAY. LUNGS REMAIN COARSE THROUGHOUT BUT O2 HAS BEEN TITRATED TO 0.5L NC. CONTACT PRECAUTIONS IN PLACE. CPOX ON. IS AND ACAPPELLA USED. AMBULATED IN HALLS WITH PT AND TOLERATED WELL. OT WORKING WITH PT WELL. REPORTS BREATHING FEELS IMPROVED.
--- NOTE | 2019-01-01 19:16 | NUR ---
IN ROOM FOR REPORT, PT IS AWAKE IN CHAIR. HE DENIES NEEDS AT THIS TIME. CALL LIGHT IS WITHIN REACH.
--- NOTE | 2019-01-01 20:45 | NUR ---
VITALS AND I&OS DONE AND CHARTED. BEDSIDE TABLE AND CALL LIGHT IN REACH.
--- NOTE | 2019-01-01 21:10 | NUR ---
PT ASSESSMENT COMPLETE AND MEDICATIONS GIVEN. PT DENIES PAIN AND SOB. HE IS AT 92% ON CPOX AND 0.5LNC. HE DENIED THE NEED FOR STOOL SOFTENERS TONIGHT STATING THAT HE HAD RUNNY STOOL FROM THEM EARLIER. PT IS READY FOR BED AND JOSEPHINE FURTHER NEEDS. CALL LIGHT IS WITHIN REACH.
--- NOTE | 2019-01-01 21:23 | NUR ---
CHARGE NURSE ROUNDING NOTE: PT CONTINUES ON DROPLET ISOLATION. O2 1/[address], CPOX IN PLACE. NO REQUESTS, NO RESP DISTRESS. FLUIDS AND CALL LIGHT AT BEDSIDE
--- NOTE | 2019-01-01 23:00 | NUR ---
PT IS RESTING WITH EYES CLOSED, RESPIRATIONS ARE EVEN AND NONLABORED. CALL LIGHT IS WITHIN REACH.
--- NOTE | 2019-01-02 00:35 | NUR ---
PT IS RESTING WITH EYES CLOSED, RESPIRATIONS ARE EVEN AND NONLABORED AT 90% ON CPOX AND 0.5 LNC, CALL LIGHT IS WITHIN REACH.
--- NOTE | 2019-01-02 02:20 | NUR ---
ASSISTED PT ALONG WITH FILE KEEPER LIZA TO WEIGH PT AND GET HIM BACK IN BED. PT LUNGS CONTINUE TO SOUND COARSE BUT ARE IMPROVING. PT DENIES PAIN/SOB. CALL LIGHT IS WITHIN REACH.
--- NOTE | 2019-01-02 02:30 | NUR ---
HELPED PT TO THE BATHROOM AND BACK TO BED. DID DAILY WEIGHT AND CHARTED IT. BEDSIDE TABLE AND CALL LIGHT IN REACH. BED ALARM SET
--- NOTE | 2019-01-02 04:45 | NUR ---
PT IS RESTING WITH EYES CLOSED, RR IS EVEN AND NONLABORED ON 0.5LNC AND 91% ON CPOX. CALL LIGHT IS WITHIN REACH AND BED ALARM IS ON.
--- NOTE | 2019-01-02 05:38 | NUR ---
PT IS RESTING WITH EYES CLOSED, RR IS EVEN AND NONLABORED ON 92% CPOX AND 0.5LNC. CALL LIGHT IS WITHIN REACH.
--- NOTE | 2019-01-02 05:49 | NUR ---
IN ROOM TO ADMINISTER THYROID MEDICATION. PT IS UP TO THE RESTROOM AT THIS TIME. DANA NEWELL IS IN ROOM ASSISTING PT WELL.
--- NOTE | 2019-01-02 06:50 | NUR ---
REPORTED INR CRITICAL LAB VALUE TO DR WALTERS.
--- NOTE | 2019-01-02 07:44 | NUR ---
REPORT RECEIVED FROM RESIDENTIAL SALES MANAGER RN. PT ON CONTACT PRECAUTIONS. CALL LIGHT IN REACH.
--- NOTE | 2019-01-02 07:48 | NUR ---
RECEIVED REPORT FROM PACKING HOUSE SUPERVISOR RN. WENT INTO PT ROOM TO GET BREAKFAST ORDER. PT WAS SITTING UP IN CHAIR, CPOX ON, 02 AT 91%, AND PT HAS NO COMPLAINTS AT THIS TIME. PT LEFT SITTING IN CHAIR, BRAKES ON, CALL LIGHT WITHIN REACH.
--- NOTE | 2019-01-02 09:17 | NUR ---
IN ROOM TO GET PT MORE WATER. PT WAS SITTING UP IN CHAIR FINISHING BREAKFAST. PTS SON IS IN ROOM. CPOX ON O2SAT 92% ON 0.5L. PT LEFT SITTING IN CHAIR WITH NO COMPLAINTS AT THIS TIME. CHAIR BRAKES ON AND CALL LIGHT WITHIN REACH
--- NOTE | 2019-01-02 10:52 | NUR ---
PT RETURNED TO ROOM BY PT. I ASSISTED THE PT WITH SHAVING AND LEFT HIM SITTING IN THE CHAIR WITH THE BRAKES ON AND CALL LIGHT WITHIN REACH WITH OT IN THE ROOM WORKING WITH HIM. CPOX ON WITH 02 AT 93%.
--- NOTE | 2019-01-02 11:10 | NUR ---
RT IN GIVING BREATHING TREATMENT.
--- NOTE | 2019-01-02 12:52 | NUR ---
IN PT ROOM TO GIVE MED. PT WAS SITTING UP IN CHAIR CPOX ON AND O2SAT WAS 93% ON ROOM AIR. PT HAD NO COMPLAINTS AT THIS TIME AND WAS LEFT SITTING IN THE CHAIR, BRAKES ON WITH CALL LIGHT IN REACH
--- NOTE | 2019-01-02 14:28 | NUR ---
PATIENT SITTING UP IN CHAIR. VITAL SIGNS AND I&O DONE. LOW DYASTOLIC BLOOD PRESSURE. RN NOTIFIED. CALL LIGHT WITHIN REACH. NO OTHER NEEDS AT THIS TIME
--- NOTE | 2019-01-02 14:50 | NUR ---
PATIENT SITTING UP IN CHAIR. SON IN ROOM. PATIENT COMPLAINS ABOUT FOOD, HE SAYS HE NEEDS SOFT FOOD BECAUSE HIS GUMS ARE SORE. PATIENT ORDER HIS DINNER AND THIS INCOME TAX RETURN PREPARER CALLED TO KITCHEN TO GET HIS ORDER. RN NOTIFIED. CALL LIGHT WITHIN REACH. NO OTHER NEEDS AT THIS TIME
--- NOTE | 2019-01-02 15:02 | NUR ---
RT IN FOR BREATHING TREATMENT
--- NOTE | 2019-01-02 16:54 | NUR ---
SBA TO BATHROOM. PT TOLERATED WELL. ON RA SATURATION 90-94%. IMSTRUCTED TO USE CALL LIGHT WHEN DONE.
--- NOTE | 2019-01-02 17:44 | NUR ---
PATIENT SITTING UP IN CHAIR. VITAL SIGNS AND I&O DONE. CALL LIGHT WITHIN REACH. NO OTHER NEEDS AT THIS TIME
--- NOTE | 2019-01-02 18:18 | NUR ---
PT HAD GOOD DAY. WORKING WITH PHYSICAL THERAPY. PT ON RA SATING AT 90-92%. SBA WITH FWW. DAILY WEIGHT. NO WEIGHT LOSS. LUNGS SOUNDS IMPROVING.
--- NOTE | 2019-01-02 21:15 | NUR ---
pt in bed, moist, slightly productive cough with thick small amount amount og yellow-creamy colored discharge. Coop with assessment. On room air, cpox on sats 90% room air . SOB with exertion present. Took meds w/o problems. Leg wraps removed, Home tedhose still in place. no c/o pain, norequests. Continues on droplet isolation
--- NOTE | 2019-01-02 23:26 | NUR ---
pt continues on droplet isolation. Placed on O2 1L NC by RT as pt desatted to 80's. Resting peacefully, no distress at this time. Call light and fludis at bedside
--- NOTE | 2019-01-02 23:49 | NUR ---
EMBALMER APPRENTICE ROUNDING NOTE. PT RESTING IN BED WITH EYES CLOSED, APPEARS TO BE SLEEPING. CALL LIGHT IN REACH.
--- NOTE | 2019-01-03 02:37 | NUR ---
resting, eyes closed, O2 1L NC in place. turns self in bed, call light at bedside
--- NOTE | 2019-01-03 04:04 | NUR ---
up to br with 1pa and fww. voided, back to bed
--- NOTE | 2019-01-03 05:10 | NUR ---
PT CURRENTLY RESTING, CONT PULSE OX IN PLACE, SATS 92%. PT WAS PLACED ON O2 1LNC AT BEGINING OF SHIFT HE DESATTED TO THE LOW 80'S. WEANED AFF AT 0430 SATS WERE 99%. PT UP TO BR TWICE THIS SHIFT, VOIDING QS. PT REQUIRES 1PA AND FWW. SLIGHT SOB PRESENT ON RETURN BACK TO BED BUT RECUPERATED VERY EASILY. CONTINUES TO HAVE EXP COARSE LUNG SHOUNDS, IS AND ACAPELLA AT BEDSIDE. OCASSIONAL, MOIST PRODUCTIVE COUGH PRESENT. NO C/O PAIN. DAILY WEIGHT TODAY WAS 179.2#, PT WAS WEIGHTED WITH SHOES HE DECLINED TO TAKE THEM OFF. HOME LINDA HOSE IN PLACE, HOME LEG WRAPPS TAKEN OFF AT HIS REQUEST.CALL LIGHT AND FLUIDS AT BEDSIDE
--- NOTE | 2019-01-03 05:43 | NUR ---
pt cpox readings down to 79% on room air, R22, moist productive cough present. O2 1L NC placed back on. sats up to 95%. Pt repositioned in bed. reassured as he was very anxious. prn neb to be given
--- NOTE | 2019-01-03 06:12 | NUR ---
Up to chair, tolerated well, no sob. cpox inplace 93%, O2 1l nc. Home leg compression and shoes back on. Watching tv, call light and fluids at hands reach
--- NOTE | 2019-01-03 07:38 | NUR ---
Pt sitting up in chair, resp even and non labored. Pt denies pain and sob. Personal supplies and call light within reach. No needs at this time. Call light within reach.
--- NOTE | 2019-01-03 12:28 | NUR ---
Pt sitting up at this time, resp even and non labored. Pt is on 1L oxygen, sat level 94%. Pt denies sob and pain. Personal supplies and call light within reach. No needs at this time.
--- NOTE | 2019-01-03 15:40 | NUR ---
Pt placed on ra, resp even and non labored. Oxygen sat level on 1l oxygen is 95% and on ra it's 93%. Pt denies sob. Pt denies pain at this time. Personal supplies and call light withiin reach. No needs at this time.
--- NOTE | 2019-01-03 18:09 | NUR ---
Pt on ra, cpox intact. Tolerating diet well. SL. 1PA with walker.
--- NOTE | 2019-01-03 19:44 | NUR ---
PT UP TO CHAIR, C/O SORE THROAT AND RIB PAIN FROM COUGH. C/O NEEDING TO GET UP TO CHAIR "HE CAN NOT CATCH HIS BREATH FROM COUGHING TOO MUCH" STATED. CPOX IN PLACE, SATS 93% ROOM AIR, PULSE 120, RESP 24. JUST RECEIVED A NEB TX TOO. MOIST, PRODUCTIVE COUGH PRESENT. CREAM-YELLOW THICK ORAL DRAINAGE NOTED. DR ALEXANDRE NOTIFIED OF ABOVE. NEW ORDERS FOR TESSLON PERLES AND COUGH SYRUP OBTAINED.
--- NOTE | 2019-01-03 20:02 | NUR ---
coop with assessment, in [facility], room iar, continues to have moist productive cough. tessallon perles 100mg po given per cough. cpox in place sats 92% pulse down [id number] at this time. resp 22
--- NOTE | 2019-01-03 20:16 | NUR ---
MEDICINE AIDE ROUNDING NOTE. PT SITTING UP IN CHAIR. SAO2 92% ON RA. PT DENIES NEEDS AT THIS TIME. PT REASSURED THAT HIS SHOES WERE IN THE CLOSET. PT CALL LIGHT IN REACH.
--- NOTE | 2019-01-03 21:50 | NUR ---
pt assisted to bathroom and back to bed with 1 pa and fww. pt tolerated well. warm blanket provided. pt requests to sleep in chair, states he is more comfortable this way. denies further needs at this time. call light in reach.
--- NOTE | 2019-01-03 23:35 | NUR ---
UP TO BR WITH 1PA AND FWW, VOIDED, BACK TO CHAIR. SOB WITH EXERTION NOTED, SATS 89-92% ROOM AIR. NO FURTHER C/O COUGH, MED EFFECTIVE
--- NOTE | 2019-01-04 01:20 | NUR ---
medicated with tylenol 650mg po c/o back, ribs and throat pain 5/10. Up to br using walker. on room air, cpox sats 92%
--- NOTE | 2019-01-04 01:27 | NUR ---
HELPED PATIENT FROM BATHROOM TO BED.
--- NOTE | 2019-01-04 03:30 | NUR ---
RESTING, O2 1L NC, CPOX IN PLACE SATS 94%.
--- NOTE | 2019-01-04 05:45 | NUR ---
CPOX READING 94%. UP TO BR FROM BED. VOIDED QS. BACK TO CHAIR. LEGS ELEVATED SOB ON EXERTION PRESENT, O2 1L NC. CPOX READING 90-94% ON RETURN. CONTINUES TO HAVE MOIST PRODUCTIVE OCASSIONAL COUGH, NO FURTHER C/O RIB OR THROAT PAIN. DECLINED NEED FOR COUGH SYRUP AT THIS TIME. COOPERATIVE. CALL LIGHT AND FLUIDS AT BEDSIDE
--- NOTE | 2019-01-04 06:38 | NUR ---
PT UP IN CHAIR, COOP WITH LAB DRAWS, CONTINUES TO HAVE MOIST PRODUCTIVE COUGH, O2 1L NC IN PLACE, CPOX IN PLACE, SATTING AT 94%, R 18. LEGS ELEVATED
--- NOTE | 2019-01-04 07:19 | NUR ---
REPORT RECEIVED FROM CALENDAR CONTROL CLERK BLOOD BANK RN. CONTACT PRECAUTIONS IN PLACE. CALL LIGHT IN REACH.
[2019-01-04] MEDS ORDERED: DOXYCYCLINE HY100 MG PO ×2 (09:57→10:01)
[2019-01-04] MEDS ORDERED: TESSALON PERLE100 MG PO (10:01)
--- NOTE | 2019-01-04 10:26 | NUR ---
PHYSDICAL THERAPY WALKING PT IN GRIER WITH FWW ON RA.
--- NOTE | 2019-01-04 13:18 | NUR ---
PHARMACY IN TO DO DC MEDICAITON TEACHING. SON AT BEDSIDE. CALL LIGHT IN REACH. IV DC'D, CATH INTACT.
--- NOTE | 2019-01-04 13:38 | NUR ---
LATE LUNCH PROVIDED BEFORE DISCHARGE. LASIX ADMINISTERED.
== END 2019-01-04 13:37 | disposition home or self-care (01) | DRG 291 ==
LOC: ED 16:12 → MS 16:14
PROVIDERS: ADMIT Internal Medicine
DX: I13.0 Hypertensive heart and chronic kidney disease with heart failure and stage 1 through stage 4 chronic kidney disease, or unspecified chronic kidney disease (principal); I50.33 Acute on chronic diastolic (congestive) heart failure; J10.08 Influenza due to other identified influenza virus with other specified pneumonia; J15.4 Pneumonia due to other streptococci; J96.91 Respiratory failure, unspecified with hypoxia; N17.9 Acute kidney failure, unspecified; N18.9 Chronic kidney disease, unspecified; I25.10 Atherosclerotic heart disease of native coronary artery without angina pectoris; I48.2 Chronic atrial fibrillation; H91.90 Unspecified hearing loss, unspecified ear; M10.9 Gout, unspecified; G89.29 Other chronic pain; M54.5 Low back pain; E87.70 Fluid overload, unspecified; Z91.040 Latex allergy status; Z95.1 Presence of aortocoronary bypass graft; Z95.2 Presence of prosthetic heart valve; Z79.01 Long term (current) use of anticoagulants; Z79.51 Long term (current) use of inhaled steroids; Z79.899 Other long term (current) drug therapy
CPT/HCPCS: 36415; 71045; 80048; 80053; 83605; 83735; 83880; 84484; 85025; 85610; 87502; 93005; 93010; 94640; 94667; 94668; 94762; 96374; 97110; 97116; 97162; 97166; 97530; 97535; 99284-25; J1956; J7030

== ENCOUNTER 2019-03-17 09:42 | Emergency (ER) | payer MEDICARE, OTHER ==
[~2019-03-17] VITALS: Ht 167.6 cm; Wt 79.3 kg
--- OUTSIDE RECORDS SUMMARY | ~2019-03-17 | XMS | Encounter Summary ---
Demographics + + + | Address | [address] | | | [place] [address] | + + + | Home Phone | | + + + | Preferred Language | Unknown | + + + | Marital Status | | + + + | Muslim Affiliation | 1061 | + + + | Race | Unknown | + + + | Ethnic Group | Unknown | + + + Author + + + | Author | Loogla Conelum | + + + | Organization | [facility] | + + + | Address [...] Team Providers + +------+ + | Care Staff Anesthesiologist Name | Role | Phone | + +------+ + | Jerson Martin MD | PCP | | + +------+ + Reason for Visit +--------+ + | Reason | Comments | +--------+ + | Other | [facility] | +--------+ + Encounter Details +--------+ + + + + | Date | Type | Department | Care Team | Description | +--------+ + + + + | 12/29/ | Documentati | [facility] | Tawanda Og, | Other (Faxed oxygen | | 2019 | on Only | Pulmonology [address] | [place] | rx to the [place]) | | | | [address] | | | | | | [place] | | | | | | [address] | | | | | | [phone] | | | +--------+ + + + [...] + as of this encounter Progress Notes Tawanda Og MA - 12/29/2018 4:13 PM PDTFaxed oxygen rx to the [place]. Confirmation receiv ed. . [place] Plan of Treatment +--------+---------+ + + + | Date | Type | Specialty | Care Team | Description | +--------+---------+ + + + | 03/31/ | Office | Pulmonology | [facility] | | | 2018 | Visit | | Johnny Song MD [address] | | | | | | [address] | | | | | | [place] [address] | | | | | | [phone] | | | | | | | | +--------+---------+ + + + as of this encounter Visit Diagnoses Not on filein this encounter"
--- OUTSIDE RECORDS SUMMARY | ~2019-03-17 | XMS | Encounter Summary ---
Demographics + + + | Address | [address] | | | [place] [address] | + + + | Home Phone | | + + + | Preferred Language | Unknown | + + + | Marital Status | | + + + | Episcopal Affiliation | 1061 | + + + | Race | Unknown | + + + | Ethnic Group | Unknown | + + + Author + + + | Author | [facility] | + + + | Organization | [facility] | + + + | Address [...] Team Providers + +------+ + | Care Boom Pump Operator Name | Role | Phone | + +------+ + | Jerson Martin MD | PCP | | + +------+ + Encounter Details +--------+ + + + + | Date | Type | Department | Care Team | Description | +--------+ + + + + | 12/26/ | Documentati | [facility] | [facility] | | | 2019 | on Only | Pulmonology [address] | Johnny Song MD [address] | | | | | [address] | [address] | | | | | [place], [place] | [place] [address] | | | | | [address] | [phone] | | | | | [phone] | | | +--------+ + + + [...] | 0.0 | h/o alcohol abuse, quit 1967 | | | Standard | | | [...] + as of this encounter Progress Notes [place] Adames MD - 12/26/2018 4:11 PM PSTCXR: 12/08/[address] Cary Diaz No significant change compared to prior radiographs. "...hazy opacity obscures the mid to lower left lung. Similar to the prior study. The lat eral view demonstrates an ellipsoid opacity along the posterior chest wall measuring at leas t 23 cm in craniocaudal dimension and 7 cm AP. This appears to represent a loculated personal care attendant io effusion and is not significantly changed compared to the 2017 lateral view."in this enco unter Plan of Treatment +--------+---------+ + + + | Date | Type | Specialty | Care Team | Description | +--------+---------+ + + + | 03/31/ | Office | Pulmonology | [facility] | | | 2019 | Visit | | Johnny Song MD [address] | | | | | | [address] | | | | | | [place] [address] | | | | | | [phone] | | | | | | | | +--------+---------+ + + + as of this encounter Visit Diagnoses Not on filein this encounter
--- OUTSIDE RECORDS SUMMARY | ~2019-03-17 | XMS | Encounter Summary ---
Demographics + + + | Address | [address] | | | [place] [address] | + + + | Home Phone | | + + + | Preferred Language | Unknown | + + + | Marital Status | | + + + | Synagogue Affiliation | 1061 | + + + | Race | Unknown | + + + | Ethnic Group | Unknown | + + + Author + + + | Author | [facility] | | | and [place] | + + + | Organization | [facility] | | [...] Team Providers + +------+ + | Care Patient Safety Sitter Name | Role | Phone | + [...] Visit | CARDIOLOGY [address] | congestive heart | | | | [place], | [facility], | failure (HCC) | | | | [place] [address] | [place] [address] | (Primary Dx); | | | | [phone] | [phone] | Tachycardia-bradycar | | | | | [...] on file | | + + + + + + + | Job Start Date | Occupation | Industry | + + + + | Not on file | Not on file | Not on file | + + + + + + + + | Travel History | Travel Start | Travel End | + + + + + + | No recent travel history available. | + + documented as of this encounter [...] 12/23/20181355 PST | + + + + documented in this [...] documented as of this encounter Progress Notes Cruzito Bird MD - 12/23/2018 1500 PST PATIENT NAME: Johnny Siddiqi : 1935: AGE: [...] Since that time, patient was seen at [facility] for pneumo ana. 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 ALLERGIES [...] RESULTS reviewed during visit today primarily from [facility]: LIPID Lab Results Component Value Date CHOL [...] ejection fraction A. Patient was seen at [facility] for edema seen on 07/08-. At that [...] He is in a class I of [place] [employer] function al class. There is [...] reduced right ventricular systolic function, normal functioning [facility] hanical aortic valve replacement, mildly thickened and [...] 73 Y.O.(2) and Vascular d isease (1). [id number] is 4, which gives an estimated 4.0%risk [...] control strategy. 4. Coronary artery disease involving muckleshoot coronary artery of muck[place]oot heart without angina pectoris: A. [facility] 11/14/2004 shows preserved left ventricular systolic function [...] check. He will do remote download quarterly. ITrinidad, am acting as a scribe on behalf of, and in the presence of Cruzito flynn MD. I have reviewed and edited this note. Trinidad Johnson, Director Investor Relations 12/23/2018 Cruzito Breaux MD, personally performed the services described in this documentation, as scribed in my presence and it is both accurate and complete. Trinidad Johnson, Director Investor Relations 12/23/2018 14:11 Electronically signed by: Cruzito Bird MD [facility] 12/23/2018 Portions of this chart may have been created with [employer] voice recognition software. Occasi onal wrong-word or sound-alike substitutions may have occurred due to the inherent carter itations of voice recognition software. Please read the chart carefully and recognize, using context, where these substitutions have occurred documented in this enc ounter Plan of Treatment +--------+ + + + + | Date | Type | Specialty | Care Team | Description | +--------+ + + + + | 04/19/ | Implant | Cardiology | Cruzito Bird, | Remote Device | | 2019 | Monitor | | MD Leon Grant | Interrogation | | | | | [facility] [place], | (Primary Dx); | | | | | [place] [address] | Pacemaker Dual | | | | | [phone] | Chamber, MRI | | | | | | compatible, 05/14/17 | | | | | | [facility]; | | | | | | 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) | +--------+ + + + + | 12/23/ | Office | Cardiology | Emely Gabriel, | | | 2019 | Visit | | CAMPGROUND MANAGER [address] | | | | | | [place], [place] | | | | | | [address] | | | | | | | | +--------+ + + + + documented as of this encounter Visit Diagnoses + + | Diagnosis | + + | Chronic diastolic congestive heart failure (HCC) - Primary Chronic diastolic heart | | failure | + + | 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 | + + | Persistent atrial fibrillation (HCC) Atrial fibrillation | + + documented in this encounter
--- OUTSIDE RECORDS SUMMARY | ~2019-03-17 | XMS | Encounter Summary ---
Demographics + + + | Address | [address] | | | [place] [address] | + + + | Home Phone | | + + + | Preferred Language | Unknown | + + + | Marital Status | | + + + | Druze Affiliation | [id number] | + + + | Race | Unknown | + + + | Ethnic Group | Unknown | + + + Author + + + | Author | [facility] | + + + | Organization | [email or web address] [employer] [facility] | + + + | Address [...] Team Providers + +------+ + | Care String Studies Director Name | Role | Phone | + +------+ + | Jerson Martin MD | PCP | | + +------+ + Reason for Visit Consult and Treat (Routine) + +--------+ + + + + | Status | Reason | Specialty | Diagnoses / | Referred By | Referred To | | | | | Procedures | Contact | Contact | + +--------+ + + + + | Pending | | Pulmonology | Diagnoses | [place], | Juve | | Review | | | Chronic | AMANDA Hannah | Pulmonology | | | | | obstructive | [address] | | | | | pulmonary | [address] | Dr KINGSLEY | | | | | disease, | [place], | [place], [place] | | | | | unspecified | [place] [address] | [address] | | | | | ([facility]) | Phone: | Phone: | | | | | Abnormal | [phone] | [phone] | | | | | results of | Fax: | | | | | | pulmonary | [phone] | | | | | | function | | | | | | | studies | | | + +--------+ + + + + Encounter Details +--------+---------+ + + + | Date | Type | Department | Care Team | Description | +--------+---------+ + + + | 12/25/ | Office | [facility] | [place] [facility] | Hypoxemia (Primary | | 2019 | Visit | Pulmonology [address] | Johnny Song MD [address] | Dx); Restrictive | | | | [address] | [address] | lung disease; | | | | [place], [place] | [place] [address] | (HFpEF) heart | | | | [phone] | [phone] | failure with | | | | [phone] | | preserved ejection | | | | | | fraction (HCC); | | | | | | Dyspnea on exertion | +--------+---------+ + + + Social History [...] + + + | Blood Pressure | 112/57 | 12/25/2018 11:12 AM PST | + + + + | Pulse | 59 | 12/25/2018 11:12 AM PST | + + + + | Temperature | 36.7 C (98.1 F) | 12/25/2018 11:12 AM PST | + + + + | Respiratory Rate | - | - | + + + + | Oxygen Saturation | 91% | 12/25/2018 11:12 AM PST | + + + + | Inhaled Oxygen | - | - | | Concentration | | | + + + + | Weight | 83.6 kg (184 lb 6.4 | 12/25/2018 11:12 AM PST | | | oz) | | + + + + | Height | 168.9 cm (5' 6.5") | 12/25/2018 11:12 AM PST | + + + + | Body Mass Index | 29.32 | 12/25/2018 11:12 AM PST | + + + + in this encounter Progress Notes [place] Adames MD - 12/25/2018 11:15 AM PSTFormatting of this note may be diffe rent from the original. Patient: Johnny Siddiqi 83 y.o. 1935 Referred from: Jerson Martin MD [address] [place] [address] Referral reason: COPD HPI: Johnny Siddiqi is an 83 y/o male accompanied by his son, Johnny. He was referred to me for an abnormal PFT and also COPD. He has a significant cardiac history s/p AVR, diastolic heart failure, Afib, tachy richard syndrome, s/p dual chamber pacer (2017), CAD s/p CABG x 1 2004. He does have chronic shortness of breath on exertion. He walks with a walker and he says he gets short of breath when walking the halls of his apartment complex. He denies wheezing. He does have an intermittent cough. Says he was recently at [facility] and was prescribed antibiotics which helped his symptoms. He denies fever or chills currently. He denies any smoking history. His son says he was diagnosed with COPD. He is supposed to be on symbico rt but is not using it. He has an albuterol inh but rarely uses it. He is not on any O2 montoya pplementation. Review of Systems Constitutional: Negative. Negative for chills, diaphoresis, fever, malaise/fatigue and antolin ght loss. HENT: Negative. Negative for congestion and sore throat. Eyes: Negative. Respiratory: Positive for cough (intermittent) and shortness of breath (with exertion). Neg ative for hemoptysis, sputum production and wheezing. Cardiovascular: Positive for leg swelling (chronic - on compression stockings). Negative fo r chest pain, palpitations, orthopnea and PND. Gastrointestinal: Negative. Negative for abdominal pain, constipation, diarrhea, nausea an d vomiting. Genitourinary: Negative. Musculoskeletal: Negative. Skin: Negative. Negative for rash. Neurological: Negative. Endo/Heme/Allergies: Negative. All other systems reviewed and are negative. Past Medical History Diagnosis Date Atrial fibrillation (HCC) Paroxysmal, CHADS2 VASc 4, on warfarin due to AVR Cardiac pacemaker in situ 05/14/2015 [employer] MRI compatible dual-chamber pacemaker, model 272, s# [id number]; RA Lead - [employer] [facility] LPA 1200M, 46 cm, s# [id number]; RV Lead - [facility] [facility] LPA 1200M, 52 cm, s# [id number] CHF (congestive heart failure) (HCC) Chronic diastolic heart failure Chronic kidney disease Stage III Chronic obstructive pulmonary disease (HCC) Cirrhosis, alcoholic (HCC) Coronary artery disease Dementia with behavioral disturbance DJD (degenerative joint disease) Edema Gout HTN (hypertension) Hyperlipidemia S/P CABG x 1 11/16/2004 DON > LAD Secondary pulmonary arterial hypertension (HCC) severe Sleep apnea SSS (sick sinus syndrome) (HCC) Tachycardia-bradycardia, required pacemaker implantation Status post mechanical aortic valve replacement 11/16/[address] [facility] AVR Past Surgical History Procedure Laterality Date ABDOMINAL SURGERY AORTIC VALVE REPLACEMENT 11/16/[address] [facility] mechanical AVR CARDIAC SURGERY CARDIOVERSION CATARACT EXTRACTION Left COLONOSCOPY CORONARY ARTERY BYPASS GRAFT 11/16/2004 DON > LAD HARDWARE PRESENT PACEMAKER INSERTION 05/14/2015 [facility] MRI compatible dual-chamber pacemaker, model 272, s# [id number]; RA Lead - [facility] LPA 1200M, 46 cm, s# [id number]; RV Lead - [facility] [facility] LPA 1200M, 52 cm, s# [id number] SKIN LESION EXCISION forehead Family History Problem Relation Age of Onset Stroke Mother COPD Brother Social History Social History Marital status: Spouse name: N/A Number of children: N/A Years of education: N/A Occupational History retired Social History Main Topics Smoking status: Never Smoker Smokeless tobacco: Never Used Alcohol use No Comment: h/o alcohol abuse, quit 1968 Drug use: No Sexual activity: Not on file Other Topics Concern Not on file Social History Narrative No narrative on file Outpatient Encounter Prescriptions as of 12/25/2018 Medication Sig Dispense Refill albuterol (PROVENTIL HFA;VENTOLIN HFA) 108 (90 BASE) MCG/ACT inhaler Inhale 2 puffs int o the lungs every 4 (four) hours as needed for Wheezing. amiodarone (PACERONE) 200 MG tablet Take 200 mg by mouth daily. atorvastatin (LIPITOR) 10 MG tablet Take 10 mg by mouth nightly. benzonatate (TESSALON) 100 MG capsule Take 100 mg by mouth 2 (two) times daily as neede d for Cough. budesonide-formoterol (SYMBICORT) 160-4.5 MCG/ACT inhaler Inhale 2 puffs into the lungs 2 (two) times daily. carboxymethylcellulose (REFRESH PLUS) 0.5 % SOLN 1 drop 3 (three) times daily as needed . desonide (DESOWEN) 0.05 % cream Apply 1 Units topically 2 (two) times daily. docusate sodium (COLACE) 250 MG capsule Take 250 mg by mouth daily. donepezil (ARICEPT) 10 MG tablet Take 5 mg by mouth nightly. Emollient (EUCERIN CALMING DAILY MOIST) CREA Apply 1 Units topically daily as needed. fenofibrate 145 MG tablet Take 145 mg by mouth daily. ferrous sulfate, 65 FE, 324 (65 FE) MG EC tablet Take 65 mg of iron by mouth daily. Sat ././Fridays only furosemide (LASIX) 40 MG tablet Take 40 mg by mouth as needed. Pt sometimes skips the w ater pill to keep from running to the bathroom constantly HYDROcodone-acetaminophen (NORCO) 5-325 MG per tablet Take 1 tablet by mouth 4 (four) t imes daily as needed. levothyroxine (SYNTHROID) 25 MCG tablet Take 25 mcg by mouth every morning before break fast. lisinopril (ZESTRIL) 10 MG tablet Take 10 mg by mouth daily. losartan (COZAAR) 25 MG tablet Take 25 mg by mouth daily. magnesium oxide (MAG-OX) 400 MG tablet Take 400 mg by mouth daily. metolazone (ZAROXOLYN) 2.5 MG tablet Take 1 tablet by mouth daily. 90 tablet 0 metoprolol (LOPRESSOR) 50 MG tablet Take 50 mg by mouth 2 (two) times daily. nitroGLYCERIN (NITROSTAT) 0.[address] 0.4 mg under the tongue every 5 (five) minutes as needed for Chest pain. nystatin (MYCOSTATIN) cream Apply 1 Units topically 3 (three) times daily as needed. potassium chloride (K-DUR) 10 MEQ tablet Take 10 mEq by mouth daily. terbinafine (LAMISIL) 1 % cream Apply 1 Units topically 2 (two) times daily. traZODone (DESYREL) 50 MG tablet Take 50 mg by mouth nightly. warfarin (COUMADIN) 2 MG tablet Take 5 mg by mouth daily. Take 5mg daily except on and Saturday take 10mg daily No facility-administered encounter medications on file as of 12/25/2018. Vitals: 12/25/18 1112 BP: 112/57 BP Location: Left upper arm Patient Position: Sitting Pulse: 59 Temp: 98.1 F (36.7 C) TempSrc: Oral SpO2: 91% Weight: 83.6 kg (184 lb 6.4 oz) Height: 1.689 m (5' 6.5") Physical Exam Constitutional: He appears well-developed and well-nourished. No distress. HENT: Head: Normocephalic. Mouth/Throat: Oropharynx is clear and moist. No oropharyngeal exudate. Eyes: Conjunctivae are normal. No scleral icterus. Neck: No tracheal deviation present. Cardiovascular: Normal rate, regular rhythm and normal heart sounds. No murmur heard. Mechanical valve sounds Pulmonary/Chest: Effort normal and breath sounds normal. No accessory muscle usage or strid or. No tachypnea and no bradypnea. No respiratory distress. He has no decreased breath sound s. He has no wheezes. He has no rhonchi. Few scattered crackles bilat Musculoskeletal: Legs wrapped Lymphadenopathy: He has no cervical adenopathy. Skin: Skin is warm. No rash noted. He is not diaphoretic. No cyanosis or erythema. Nails sh ow no clubbing. Vitals reviewed. PFT: 06/27/18 PULMONARY FUNCTION TESTING SPIROMETRY: The prebronchodilator FVC was 0.92 L or 29 % of predicted. The prebronchodilator FEV1 was 0.89 L or 33 % of predicted. FEV1/FVC ratio was 96 %.Following inhalation of albuterol the patient's FEV1 lopez to 0.92, 34% of predicted. That the lung volume and DLCO measurements were not possible. 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 No prior pulmonary function tests available for Comparison. CXR: 06/04/18 IMPRESSION - Persistent left basilar opacities, likely atelectasis/scarring. Small left pleural effusion likely. Thickened, coarse appearance of the interstitial lung markings, may be seen with pulmonary edema ECHO: 05/13/17 Conclusions Summary 1. Mild biatrial dilatation. 2. Normal left ventricular size with a mild concentric left ventricular hypertrophy. Left ventricular systolic function is preserved. LVEF is 55-60%. Evidence of a paradoxical septal motion. 3. Normal right ventricular size and wall thickness with a mildly decreased right ventricular systolic function. 4. Normally functioning mechanical bileaflet aortic valve replacement. 5. Mildly thickened and calcified mitral valve with adequate opening. There is a mild mitral valve regurgitation. 6. Mild mitral annular calcification. 7. Moderate pulmonary hypertension with a peak systole pressure of 65-70 mmHg. 8. Dilated IVC without respiratory collapse suggesting fluid retention. 9. When compared to echocardiography on 02/28/17, pulmonary hypertension is slightly worsened and patient appeared to be fluid overloaded on this study. Assessment and Plan: A> 83M w h/o CAD s/p CABG/AVR in 2005, Afib, tachybrady syndrome s/p pacer, HFpEF, cirrhosi s with dyspnea on exertion and restrictive lung disease P> 1. Restrictive lung disease - reviewed PFT from 05/2018. This was consistent with severe restriction. The patient is a non smoker and has no obstructive impairment on PFT hence I do not think he has COPD. He h as not been using symbicort anymore. He may still use albuterol intermittently as needed. - restriction is most likely from pulmonary edema during the time of testing, with left bas ilar atelectasis, and could also be due to poor effort from the patient. He was on amiodaro ne which was stopped, however, I do not think this is amiodarone induced lung disease. - he had a more recent CXR at [facility] 2 weeks ago, I will request a copy of this. We w ill decide on that if a CT chest is appropriate. 2. Dyspnea on exertion - this is most likely due to both HFpEF and deconditioning. - he continues to ambulate with his walker. He is not in any respiratory distress today. - he is already on diuretics. 3. Hypoxemia - the patient has exertional hypoxemia. O2 dropped to 87% on room air with exertion. He r equired 2LPM with activity to keep sats >90%. - I recommended starting him on supplemental O2 when ambulating and to use 2LPM via NC. Wi [facility] 4. HFpEF - follows with cardiology. On diuretics. 5. Pulmonary HTN - the patient also has pulmonary HTN by echo which is likely secondary to WHO group 2/cardi ac disease. Start O2 supplementation as above. He is on diuretics already. Return in about 3 months (around 03/27/2019). in this encounter Plan of Treatment +--------+---------+ + + + | Date | Type | Specialty | Care Team | Description | +--------+---------+ + + + | 03/31/ | Office | Pulmonology | [facility] | | | 2018 | Visit | | Johnny Song MD [address] | | | | | | [address] | | | | | | [place] [address] | | | | | | [phone] | | | | | | | | +--------+---------+ + + + as of this encounter Visit Diagnoses + + | Diagnosis | + + | Hypoxemia - Primary | + + | Restrictive lung disease | + + | Other diseases of lung, not elsewhere classified | + + | (HFpEF) heart failure with preserved ejection fraction (HCC) | + + | Dyspnea on exertion | + + | Other dyspnea and respiratory abnormality | + +
--- OUTSIDE RECORDS SUMMARY | ~2019-03-17 | XMS | Clinical Summary ---
Demographics + + + | Address | [address] | | | [place] [address] | + + + | Home Phone | | + + + | Preferred Language | Unknown | + + + | Marital Status | | + + + | Confucianism Affiliation | 1061 | + + + | Race | Unknown | + + + | Ethnic Group | Unknown | + + + Author + + + | Author | [email or web address] | + + + | Organization | [facility] | + + + | Address [...] | + + +---------+ + | Bhavna Patel | ECON | Unknown | | + + +---------+ + Care Team Providers + +------+ + | Care Custom Motorcycle Painter Name | Role | Phone | + +------+ + | Jerson Martin MD | PP | | + +------+ + Allergies + + + + + + | Active Allergy | Reactions | Severity | Noted | Comments | | | | | Date | | + + + + + + | Latex | Rash | Medium | 04/01/20 | | | | | | 15 | | + + + + + + Current Medications + + +--------+---------+------+------+-------+ | Prescription | Sig. | Disp. | Refills | Star | End | Statu | | | | | | t | Date | s | | | | | | Date | | | + + +--------+---------+------+------+-------+ | albuterol | Inhale 2 puffs into | | | | | Activ | | (PROVENTIL | the lungs every 4 | | | | | e | | HFA;VENTOLIN HFA) | (four) hours as | | | | | | | 108 (90 BASE) | needed for Wheezing. | | | | | | | MCG/ACT inhaler | | | | | | | + + +--------+---------+------+------+-------+ | atorvastatin | Take 10 mg by mouth | | | | | Activ | | (LIPITOR) 10 MG | nightly. | | | | | e | | tablet | | | | | | | + + +--------+---------+------+------+-------+ | | 1 drop 3 (three) | | | | | Activ | | carboxymethylcellulo | times daily as | | | | | e | | se (REFRESH PLUS) | needed. | | | | | | | 0.5 % SOLN | | | | | | | + + +--------+---------+------+------+-------+ | docusate sodium | Take 250 mg by mouth | | | | | Activ | | (COLACE) 250 MG | daily. | | | | | e | | capsule | | | | | | | + + +--------+---------+------+------+-------+ | donepezil | Take 5 mg by mouth | | | | | Activ | | (ARICEPT) 10 MG | nightly. | | | | | e | | tablet | | | | | | | + + +--------+---------+------+------+-------+ | furosemide (LASIX) | Take 40 mg by mouth | | | | | Activ | | 40 MG tablet | as needed. Pt | | | | | e | | | sometimes skips the | | | | | | | | water pill to keep | | | | | | | | from running to the | | | | | | | | bathroom constantly | | | | | | + + +--------+---------+------+------+-------+ | levothyroxine | Take 25 mcg by mouth | | | | | Activ | | (SYNTHROID) 25 MCG | every morning | | | | | e | | tablet | before breakfast. | | | | | | + + +--------+---------+------+------+-------+ | nitroGLYCERIN | Place 0.4 mg under | | | | | Activ | | (NITROSTAT) 0.4 MG | the tongue every 5 | | | | | e | | SL tablet | (five) minutes as | | | | | | | | needed for Chest | | | | | | | | pain. | | | | | | + + +--------+---------+------+------+-------+ | traZODone | Take 50 mg by mouth | | | | | Activ | | (DESYREL) 50 MG | nightly. | | | | | e | | tablet | | | | | | | + + +--------+---------+------+------+-------+ | metolazone | Take 1 tablet by | 90 | 0 | 04/20 | | Activ | | (ZAROXOLYN) 2.5 MG | mouth daily. | tablet | | 07/10 | | e | | tabletIndications: | | | | 16 | | | | Chronic diastolic | | | | | | | | congestive heart | | | | | | | | failure (HCC) | | | | | | | + + +--------+---------+------+------+-------+ | ferrous sulfate, | Take 65 mg of iron | | | | | Activ | | 65 FE, 324 (65 FE) | by mouth daily. | | | | | e | | MG EC tablet | /./Fridays | | | | | | | | only | | | | | | + + +--------+---------+------+------+-------+ | warfarin | Take 5 mg by mouth | | | | | Activ | | (COUMADIN) 2 MG | daily. Take 5mg | | | | | e | | tablet | daily except on | | | | | | | | and Saturday | | | | | | | | take 10mg daily | | | | | | + + +--------+---------+------+------+-------+ | benzonatate | Take 100 mg by mouth | | | | | Activ | | (TESSALON) 100 MG | 2 (two) times daily | | | | | e | | capsule | as needed for | | | | | | | | Cough. | | | | | | + + +--------+---------+------+------+-------+ | | Inhale 2 puffs into | | | | | Activ | | budesonide-formotero | the lungs 2 (two) | | | | | e | | l (SYMBICORT) | times daily. | | | | | | | 160-4.5 MCG/ACT | | | | | | | | inhaler | | | | | | | + + +--------+---------+------+------+-------+ | lisinopril | Take 10 mg by mouth | | | | | Activ | | (ZESTRIL) 10 MG | daily. | | | | | e | | tablet | | | | | | | + + +--------+---------+------+------+-------+ | metoprolol | Take 50 mg by mouth | | | | | Activ | | (LOPRESSOR) 50 MG | 2 (two) times daily. | | | | | e | | tablet | | | | | | | + + +--------+---------+------+------+-------+ | amiodarone | Take 200 mg by mouth | | | 08/0 | | Activ | | (PACERONE) 200 MG | daily. | | | 11/09 | | e | | tablet | | | | 17 | | | + + +--------+---------+------+------+-------+ | potassium chloride | Take 10 mEq by mouth | | | | | Activ | | (K-DUR) 10 MEQ | daily. | | | | | e | | tablet | | | | | | | + + +--------+---------+------+------+-------+ | | Take 1 tablet by | | | 04/1 | | Activ | | HYDROcodone-acetamin | mouth 4 (four) times | | | 20 | | e | | ophen (NORCO) 5-325 | daily as needed. | | | 18 | | | | MG per tablet | | | | | | | + + +--------+---------+------+------+-------+ | Emollient (EUCERIN | Apply 1 Units | | | | | Activ | | CALMING DAILY | topically daily as | | | | | e | | MOIST) CREA | needed. | | | | | | + + +--------+---------+------+------+-------+ | nystatin | Apply 1 Units | | | | | Activ | | (MYCOSTATIN) cream | topically 3 (three) | | | | | e | | | times daily as | | | | | | | | needed. | | | | | | + + +--------+---------+------+------+-------+ | fenofibrate 145 MG | Take 145 mg by mouth | | | | | Activ | | tablet | daily. | | | | | e | + + +--------+---------+------+------+-------+ | magnesium oxide | Take 400 mg by mouth | | | | | Activ | | (MAG-OX) 400 MG | daily. | | | | | e | | tablet | | | | | | | + + +--------+---------+------+------+-------+ | terbinafine | Apply 1 Units | | | | | Activ | | (LAMISIL) 1 % cream | topically 2 (two) | | | | | e | | | times daily. | | | | | | + + +--------+---------+------+------+-------+ | desonide (DESOWEN) | Apply 1 Units | | | | | Activ | | 0.05 % cream | topically 2 (two) | | | | | e | | | times daily. | | | | | | + + +--------+---------+------+------+-------+ | losartan (COZAAR) | Take 25 mg by mouth | | | | | Activ | | 25 MG tablet | daily. | | | | | e | + + +--------+---------+------+------+-------+ Active Problems + + + | Problem | Noted Date | + + + | Alcoholic cirrhosis (HCC) | 12/25/2018 | + + + + + | Overview: Overview: | | CT scan 2003 at [facility] | + + + + + | Coronary artery disease involving [place] coronary artery of | 12/25/2018 | | [place] heart without angina pectoris | | + + + + + | Overview: Overview: [facility] 11/14/2004 shows preserved left | | ventricular systolic function, critical aortic stenosis, severe | | one-vessel coronary artery disease. CABG x1 (DON to LAD)/AVR | | (#23 SJM),prosthetic valve stable, endocarditis prophylaxis | | reinforced on 11/16/2004.Echocardiogram 04/01/2015 shows mild | | biatrial dilatation, normal left ventricular size, wall thickness | | and motion, preserved left ventricular systolic function, LVEF | | is 65-70%, grade 1 left ventricular diastolic dysfunction, | | normally functioning mechanical bileaflet aortic valve | | replacement, mildly thickened and calcified mitral valve with a | | mild mitral valve regurgitation, mild mitral annular | | calcification, mild tricuspid valve regurgitation, moderate | | pulmonary hypertension with a peak systolic pressure of 55-60 | | mmHg, normal IVC with normal respiratory collapse, no previous | | echocardiography for comparison.Echocardiogram 01/30/2017 shows | | overall left ventricular systolic function is normal with, an EF | | between 65 - 70 %, pseudonormal LV diastolic filling pattern, | | consistent with elevated LA pressure and moderate dysfunction | | (Grade II), right ventricle is normal in size and function, there | | is mild bi-atrial enlargement, normally functioning mechanical | | prosthetic aortic valve, there is mild pulmonary hypertension. | | Echocardiogram 02/28/2017 shows mild biatrial dilatation, normal | | left ventricular size with a mild concentric left ventricular | | hypertrophy, left ventricular systolic function is preserved. | | LVEF is 70%, normal right ventricular cavity with normal wall | | thickness and a mildly reduced right ventricular systolic | | function, normal functioning mechanical aortic valve replacement, | | mildly thickened and calcified mitral valve with adequate | | opening, mild to moderate mitral annular calcification, mild | | pulmonary hypertension with a peak systolic pressure of 45-50 | | mmHg, normal IVC with normal respiratory collapse.Echocardiogram | | 05/13/2017 shows mild biatrial dilatation, normal left ventricular | | size with a mild concentric left ventricular hypertrophy, left | | ventricular systolic function is preserved. LVEF is55-60%, | | evidence of a paradoxical septal motion, normal right ventricular | | size and wall thickness with a mildly decreased right | | ventricular systolic function, normally functioning mechanical | | bileaflet aortic valve replacement, mildly thickened and | | calcified mitral valve with adequate opening, there is a mild | | mitral valve regurgitation, mild mitral annular calcification, | | moderate pulmonary hypertension with a peak systole pressure of | | 65-70 mmHg, dilated IVC without respiratory collapse suggesting | | fluid retention, when compared to echocardiography on 02/28/17, | | pulmonary hypertension is slightly worsened and patient appeared | | to be fluid overloaded on this study. | + + + + + | Dementia | 12/25/2018 | + + + | Liver cirrhosis (HCC) | 12/25/2018 | + + + | Pulmonary HTN (HCC) | 12/25/2018 | + + + + + | Overview: Overview: | | Severe on Echo 2013 | + + + + + | Essential hypertension | 09/05/2016 | + + + + + | Last Assessment & Plan: Hypertension, controlled, continue | | current meds at current dose (Toprol-XL, furosemide, metolazone). | + + + + + | Mixed hyperlipidemia | 09/05/2016 | + + + + + | Last Assessment & Plan: Hyperlipidemia, continue current meds | | current doses (atorvastatin, fenofibrate). | + + + + + | Atrial fibrillation, persistent | 09/05/2016 | + + + + + | Overview: Overview: Last Assessment & Plan: Persistent atrial | | fibrillation, currently in sinus rhythm. Anticoagulated, | | warfarin, managed by [facility]. Denies any new visual disturbances, | | dysarthria, dysphasia, lateralizing signs or symptoms. No | | significant bleeding or bruising reported.Lab, 07/31/2016: INR: | | 2.0, WBC: 10.2, H/H: 12.8/40.1, plt: 222 Last Assessment & Plan: | | Persistent atrial fibrillation, currently in sinus rhythm. | | Anticoagulated, warfarin, managed by [facility]. Denies any new | | visual disturbances, dysarthria, dysphasia, lateralizing signs or | | symptoms. No significant bleeding or bruising reported.Lab, | | 07/31/2016: INR: 2.0, WBC: 10.2, H/H: 12.8/40.1, plt: 222 | + + + + + | Coronary artery disease involving coronary bypass graft of [place] | 09/03/2016 | | heart with angina pectoris (HCC) | | + + + + + | Last Assessment & Plan: 1V-CAD, Hx CABG/AVR, LVEF 60-65%. | | 81yo WM, with complex cardiac condition, his main complaint | | is shortness of breath with exertion, minimally active, he | | complains of exertional shortness of breath with ADL's, no | | significant chest discomfort. His weight is stable, edema | | stable, there is a mild degree of orthopnea and PND however. He | | states that he is had a recent upper respiratory tract infection, | | recovery has been quite slow. He has a history of coronary | | artery disease with single vessel bypass surgery, LVEF preserved. | | Also history of aortic stenosis with AVR, the mechanical | | prosthetic valve appears to be stable with no significant AI. | | Labs reviewed. Today's ECG reviewed. Chest x-ray shows a | | persistent loculated left pleural effusion, this appears to be | | stable, more troubling however is the calcified pericardium. His | | medications are reviewed, believe medical therapy is appropriate | | at sodium restriction reinforced, along with daily weights, will | | continue current diuretic regimen, which is fairly aggressive. | | Due to his age and overall medical condition, he is not a | | candidate for any further cardiac surgery. Medical therapy | | appropriate. We'll follow clinically.Hx CAB11/16/2004, CABG*1 | | (DON to LAD)/AVR (#23 SJM).Hx PCi/stent: noHx Pacemaker/ICD: | | noLast Cath, 11/14/2004: left main OK, 80-90% mid-LAD, LCx OK, RCA | | OK. Mild anterior hypokinesis, LVEF 70%. | | RA: 19mmHg, RV: 64/14, PAP: 69/39, PCWP: 36.Last | | Echo, 03/13/2016 ([facility]): mild LVH, LVEF 60-65%, moderate | | LAE, mild ANDRIA, AVR (peak/mean gradients 7/4mmHg), no AI, mild MR, | | moderate TR, mild PI, est systolic PAP 46-51mmHg.Last Stress | | Test: naECG, 09/03/2016: sinus rhythm, frequent PVC's, atypical | | LBBB (prob LVH with ST-T changes). | + + + + + | S/P AVR (aortic valve replacement) | 09/03/2016 | + + + + + | Last Assessment & Plan: Hx , S/P AVR (#23 SJM). Prosthetic | | valve stable, endocarditis prophylaxis reenforced.Last Echo, | | 03/13/2016 ([facility]): AVR (peak/mean gradients 7/4mmHg), no | | AI, mild MR, moderate TR, mild PI, mild LVH, LVEF 60-65%, | | moderate LAE, mild ANDRIA, est systolic PAP 46-51mmHg. | + + + + + | Chronic diastolic congestive heart failure (HCC) | 05/08/2016 | + + + + + | Overview: Overview: Echo 2014 EF 68, ascites, pulm HTN Last | | Assessment & Plan: HFpEF. Continue diuretic therapy | | (furosemide, metolazone).CXR, 09/03/2016 ([facility]): Aortic | | valve prosthesis, mild pulmonary vascular plethora, moderate size | | loculated left posterior pleural effusion, pericardial | | calcification. | + + + + + | Hard of hearing | 03/16/2016 | + + + | Venous stasis of both lower extremities | 03/16/2016 | + + + | CRUZITO (obstructive sleep apnea) | 03/16/2016 | + + + | Cardiac pacemaker in situ | 05/14/2015 | + + + + + | Overview: [facility] MRI compatible dual-chamber pacemaker | + + + + + | Anemia | 04/01/2015 | + + + | Over-anticoagulated | 04/01/2015 | + + + | S/P CABG x 1 | 11/16/2004 | + + + + + | Overview: DON > LAD | | | | Overview: | | Overview: | | DON > LAD | + + + + + | Status post mechanical aortic valve replacement | 11/16/2004 | + + + + + | Overview: #23 [facility] AVR | | | | Overview: | | Overview: | | #23 [facility] AVR | + + + +---+ | Paroxysmal atrial fibrillation (HCC) | | + +---+ + + | Overview: Persistent, CHADS2 VASc 4, on warfarin due to AVR | + + + +---+ | SSS (sick sinus syndrome) (HCC) | | + +---+ + + | Overview: Tachycardia-bradycardia, required pacemaker | | implantation | + + + +---+ | CHF (congestive heart failure) (HCC) | | + +---+ + + | Overview: Chronic diastolic heart failure | + + + +---+ | Secondary pulmonary arterial hypertension (HCC) | | + +---+ + + | Overview: severe | + + Encounters +--------+ + + + + | Date | Type | Specialty | Care Team | Description | +--------+ + + + + | 01/06/ | Documentati | | Tawanda Og, | Other (Re-faxed | | 2019 | on Only | | [place] | [facility] | | [facility] | +--------+ + + + + | 12/29/ | Documentati | | Tawanda Og, | Other (Faxed oxygen | | 2019 | on Only | | [place] | [facility]) | +--------+ + + + + | 12/26/ | Documentati | | [place] | | | 2019 | on Only | | Jacklyn Song MD | | +--------+ + + + + | 12/25/ | Office | | [place] | Hypoxemia (Primary | | 2018 | Visit | | Jacklyn Song MD | Dx); 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; | | | | | | (HFpEF) heart | | | | | | failure with | | | | | | preserved ejection | | | | | | fraction (HCC); | | | | | | Dyspnea on exertion | +--------+ + + + + | 12/25/ | Documentati | | Tawanda Og, | Other (3-STEP) | | 2019 | on Only | | [place] | | +--------+ + + + + from Last 3 Months Family History + + +------+ + | Medical History | Relation | Name | Comments | + + +------+ + | COPD | Brother | | | + + +------+ + | Stroke | Mother | | | + + +------+ + + +------+ + + | Relation | Name | Status | Comments | + +------+ + + | Brother | | Alive | | + +------+ + + | Brother | | | accident | + +------+ + + | Daughter | | Alive | | + +------+ + + | Daughter | | Alive | | + +------+ + + | Father | | | of MVA, blood clot | | | | (Age | | | | | 71) | | + +------+ + + | Mother | | | unknown cause of | | | | (Age | | | | | 95) | | + +------+ + + | Sister | | | | + +------+ + + | Sister | | | | + +------+ + + | Sister | | | | + +------+ + + | Sister | | Alive | | + +------+ + + | Son | | Alive | | + +------+ + + | Son | | Alive | | + +------+ + + | Son | | Alive | | + +------+ + + | Son | | Alive | | + +------+ [...] + + + | Respiratory Rate | 17 | 10/03/2016 12:37 PM PST | + + + + | [...] AM PST | + + + + Plan of Treatment +--------+---------+ + + + | Date | Type | Specialty | Care Team | Description | +--------+---------+ + + + | 03/31/ | Office | | [place] | | | 2019 | Visit | | Jacklyn Song MD [address] | | | | | | [address] | | | | | | [place] [address] | | | | | | [phone] | | | | | | | [...] 65+ | 8 | | | | Low/Medium Risk (1 | | | | | of 2 - PCV13) | | | | + + + + + | Vaccine: Influenza | | | | | (Season Ended) | 9 | | | + + + + + Results Not on filefrom Last 3 Months Insurance + +--------+ +------+ + + | Payer | Benefi | Subscriber | Type | Phone | Address | | | t Plan | ID | | | | | | / | | | | | | | Group | | | | | + +--------+ +------+ + + | MEDICARE | MEDICA | [id number] | | | [address] | | | RE | | | | [place] [id number] | | | IP-OP | | | | | + +--------+ +------+ + + | [place] | [place] | [phone] | | [phone] FEE SERVICES [id number] | | ADMINISTRATION | CHOICE | | | [phone] | | | | | | | [place] | | | | | | | [phone] | + +--------+ +------+ + + | MEDICAID | [place] | | | | [address] | | | | | | | [place] | | | FAMILY | | | | [phone] | | | CARE | | | | | + +--------+ +------+ + + | MEDICAID | [place] | [id number] | | | [address] | | | [place] | | | | [place] | | | [place] | | | | [phone] | | | [employer]GE [employer] ATTENDANT | | | | | + +--------+ +------+ + + + +--------+ +--------+ + + | Guarantor Name | Accoun | Relation to | Date | Phone | Billing Address | | | t Type | Patient | of | | | | | | | | | | + +--------+ +--------+ + + | JACKLYN PATEL | Person | Self [birth year] | Home: | [address] | | | al/Fam | | [phone] | [phone] | | | [place] | | | [address] | [place] [address] | + +--------+ +--------+ + + | JACKLYN PATEL | Vetera | Self | [birth year] | Home: | [address] | | | ns | | [phone] | | | Admini | | | [phone] | [place] [address] | | | strati | | | | | | | on | | | | | + +--------+ +--------+ + +
--- OUTSIDE RECORDS SUMMARY | ~2019-03-17 | XMS | Encounter Summary ---
Demographics + + + | Address | [address] | | | [place] [address] | + + + | Home Phone | | + + + | Preferred Language | Unknown | + + + | Marital Status | | + + + | Judaism Affiliation | 1061 | + + + | Race | Unknown | + + + | Ethnic Group | Unknown | + + + Author + + + | Author | [facility] | | | and [place] | + + + | Organization | [facility] | | | and [place] | + + + | Address | Unknown | + + + | Phone | Unavailable | + + + Support + + +---------+ + | Name | Relationship | Address | Phone | + + +---------+ + | Johnny Siddiqi Jr | ECON | Unknown | | + + +---------+ + | Cassandar Benitez | ECON | NA | | | | | NA, | | + + +---------+ + | Rl Siddiqi | ECON | Unknown | | + + +---------+ + | Chris Siddiqi | ECON | Unknown | | + + +---------+ + | Csasandra Guthrie | ECON | Unknown | | + + +---------+ + Care Team Providers + +------+ + | Care Plug Paster Name | Role | Phone | + [...] Monitor | CARDIOLOGY [address] | Interrogation | | | | [place], | [place], | (Primary Dx); | | | | [place] [address] | [place] [address] | Pacemaker Dual | | | | [phone] | [phone] | Chamber, MRI | | | | [...] | 2019 | Monitor | | [facility] | Interrogation | | | | | 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) | +--------+ + + + + | 12/23/ | Office | Cardiology | Emely Gabriel, | | | 2019 | Visit | | BILL OF MATERIALS CLERK [address] | | | | | | St [place], [place] | | | | | | [address] | | | | | | | [...] this | | INTERROGATION- | e | 0:00 PST | Interrogation | procedure are in [...] encounter Results Device Interrogation - Remote (11/10/2018 0:00 PST) + + + | Narrative | Performed At | + + + | [facility] | KAREN | | MD Marge 10/24/2018 13:35Date of Remote Interrogation: | | | 10/21/18 Refer to [employer] documentation and remote PDF scanned into [facility] | | | for remote interrogation results. [...] + | Cruzito Bird MD - 01/18/2019 2359 PDT Date of Remote Interrogation: 10/21/18Refer | | to [email or web address] documentation and remote PDF scanned into [employer] for remote interrogation | | results. Data [...]
--- OUTSIDE RECORDS SUMMARY | ~2019-03-17 | XMS | Encounter Summary ---
Demographics + + + | Address | [address] | | | [place] [address] | + + + | Home Phone | | + + + | Preferred Language | Unknown | + + + | Marital Status | | + + + | Mosque Affiliation | 1061 | + + + | Race | Unknown | + + + | Ethnic Group | Unknown | + + + Author + + + | Author | [facility] | + + + | Organization | [facility] | + + + | Address [...] Team Providers + +------+ + | Care Laundry Machine Tender Name | Role | Phone | [...] + + | 12/25/ | Documentati | [facility] | Tawanda Og, | Other (3-STEP) | | 2019 | on Only | Pulmonology [address] | [place] | | | | | [address] | | | | | | [place] | | | | | | [address] | | | | | | [phone] | | | +--------+ + + + [...] AM PST3 step testing Oximetry Exercise (code) 37068 1. At rest on room air: Time:11:41AM [...] [place] | | | | | | [place] [address] | | | | | | [phone] | | | | | | | | +--------+---------+ + + + as of this encounter Visit Diagnoses Not on filein this encounter"
--- OUTSIDE RECORDS SUMMARY | ~2019-03-17 | XMS | Encounter Summary ---
Demographics + + + | Address | [address] | | | [place] [address] | + + + | Home Phone | | + + + | Preferred Language | Unknown | + + + | Marital Status | | + + + | Scientologist Affiliation | 1061 | + + + | Race | Unknown | + + + | Ethnic Group | Unknown | + + + Author + + + | Author | [facility] [employer] | + + + | Organization | [facility] [employer] [facility] | + + + | Address | Unknown | + + + | Phone | Unavailable | + + + Support + + +---------+ + | Name | Relationship | Address | Phone | + + +---------+ + | Csasandra Guthrie | ECON | Unknown | | + + +---------+ + | Chris Siddiqi | ECON | Unknown | | + + +---------+ + | Bhavna Siddiqi | ECON | Unknown | | + + +---------+ + Care Team Providers + +------+ + | Care Honing Machine Set Up Operator Tool Name | Role | Phone | + [...] | | | | | pulmonary | [address] | Dr KINGSLEY | | | | | disease, | [place], | [place], [place] | | | | | unspecified | [place] [address] | [address] | | | | | ([facility]) | Phone: | Phone: | | | | | Abnormal | [phone] | [phone] | | | | | results of | Fax: | | | | | | pulmonary | [phone] | | | | | | function | | | | | | | studies | | | + +--------+ + + + + Encounter Details +--------+---------+ + + + | Date | Type | Department | Care Team | Description | +--------+---------+ + + + | 12/25/ | Office | [facility] | Mod[place] Adames | Hypoxemia (Primary | | 2019 | Visit | Pulmonology [address] | Johnny Song MD 1100 | Dx); 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 1935 Referred from: Jerson Martin MD [address] [place] [address] Referral reason: COPD HPI: Johnny Siddiqi is [...] intermittent cough. Says he was recently at [facility] and was prescribed antibiotics which helped his [...] [facility] Ru[facility] LPA 1200M, 46 cm, s# [id number]; RV Lead - [facility] Rupert LPA 1200M, 52 cm, s# [id number] CHF (congestive heart failure) (HCC) Chronic diastolic [...] [facility] Rupert LPA 1200M, 46 cm, s# [id number]; RV Lead - [facility] Rupert LPA 1200M, 52 cm, s# [id number] SKIN LESION EXCISION forehead Family History Problem [...] he had a more recent CXR at [facility] 2 weeks ago, I will request a [...] Valenzuela | | | | | | [place] [address] | | | | | | [phone] | | | | | | | [...]
--- OUTSIDE RECORDS SUMMARY | ~2019-03-17 | XMS | Clinical Summary ---
Demographics + + + | Address | [address] | | | [place] [address] | + + + | Home Phone [...] Team Providers + +------+ + | Care Ferry Captain Name | Role | Phone | + [...] | | + + + +---------+------+------+-------+ | albuterol [...] | | + + + +---------+------+------+-------+ | artificial tears | Place 1 drop into | | 0 | | | Activ | | (REFRESH PLUS) 0.5% | both eyes 4 times | | | | | e | | SOLN | daily as needed (for | | | | | | | | dry eyes). | | | | | | + + + +---------+------+------+-------+ | ferrous sulfate | Take 325 mg by mouth | | 0 | | | Activ | | 325 [...] | | + + + +---------+------+------+-------+ | nitroglycerin | Place 1 tablet under [...] + + +---------+------+------+-------+ | nystatin | Apply topically 3 | | 0 | | | Activ | | (MYCOSTATIN) cream | times daily as | | | | | e | | | needed (for fungal | | | | | | | | infection). | | | | | | + + + +---------+------+------+-------+ | donepezil | Take 5 mg by mouth. | | 0 | | | Activ | | (ARICEPT) 10 MG | | | | | | e | | tablet | | | | | | | + + + +---------+------+------+-------+ | skin emollient | Apply topically. | | 0 | | | Activ | | (EUCERIN CALMING | | | | | | e | | DAILY MOIST) cream | | | | | | | + + + +---------+------+------+-------+ | furosemide (LASIX) | Take 1 tablet by | 60 | 2 | 07/ | | Activ | | 40 mg tablet | mouth 2 times daily. | tablet | | 05/09 | | e | | | | | | 17 | | | + + + +---------+------+------+-------+ | doxycycline | Take 100 mg by mouth | | 0 | | | Activ | | (VIBRAMYCIN) 100 mg | 2 times daily. | | | | | e | | capsule | | | | | | | + + + +---------+------+------+-------+ | | Take 1 tablet by | | 0 | | | Activ | | HYDROcodone-acetamin | mouth 3 times daily | | | | | e | | ophen (NORCO) 5-325 | as needed for Pain. | | | | | | | mg per tablet | | | | | | | + + + +---------+------+------+-------+ | warfarin | Take 5 mg by mouth. | | 0 | | | Activ | | (COUMADIN) 6 MG | In the evening on | | | | | e | | tablet | even days Managed by | | | | | | | | the V.A | | | | | | + + + +---------+------+------+-------+ | ondansetron | Take 4 mg by mouth | | 0 | | | Activ | | (ZOFRAN ODT) 4 mg | every 4 hours as | | | | | e | | disintegrating | needed for Nausea. | | | | | | | tablet | | | | | | | + + + +---------+------+------+-------+ | bisacodyl | Place 10 mg rectally | | 0 | | | Activ | | (DULCOLAX) [...] e | + + + +---------+------+------+-------+ | fenofibrate | Take 145 mg by mouth | | 0 | | | Activ | | (TRICOR) 145 mg | Daily. | | | | | e | | tablet | | | | | | | + + + +---------+------+------+-------+ | magnesium [...] Chamber, MRI compatible, 05/14/17 [facility] Rupert Marge | 05/14/2017 | + + + + + | Overview: Formatting of this note might be different from the | | original. MODEL NAME MODEL# SERIAL# DATE IMPLANTED GENERATOR St | | Rupert Assurity MRI [id number] 05/14/[address] Rupert Tendril | | MRI [id number] 05/14/[address] Rupert Tendril MRI | | [id number] 05/14/17 Indication: Tachycardia-Bradycardia | | Syndrome. 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 | + + Last Filed Vital Signs + [...] 85.3 kg (188 lb 0.8 | 12/23/2018 1356 PST | | | oz) | | + + + + | Height | 167.6 cm (5' 6") | 12/23/2018 1356 PST | + + + + | Body Mass Index | 30.35 | 12/23/2018 1356 PST | + + + + Plan of Treatment +--------+ + + + + | Date | Type | Specialty | Care Team | Description | +--------+ + + + + | 04/19/ | Implant | | Cruzito Bird, | Remote Device | | 2019 | Monitor | | [facility] | Interrogation | | | | | 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) | +--------+ + + + + | 12/23/ | Office | | Emely Gabriel, | | | 2019 | Visit | | LICENSED REACTOR OPERATOR [address] | | | | | | [place] | | | | | | [address] | | | | | | | [...] | [facility] | | 06/20/ | [id number] | | [id number]: Qty: 1 | | Heart | MEDICAL - | | 2016 | 0M/52 | | on 05/14/2017 by Marge, | | | STJU | | | /[id number] | | MD Cruzito | | | | | | 8427 / | + +------+-------+ +--------+--------+--------+ | Lead Tendril Mri 46cm - | | N/A: | [facility] | | 07/20/ | [id number] | | [id number]: Qty: 1 | | Heart | MEDICAL - | | 2016 | 0M/46 | | on 05/14/2017 by Marge, | | | STJU | | | /[id number] | | MD Cruzito | | | | | | 3446 / | + +------+-------+ +--------+--------+--------+ | Pacer Assurity Mri Dr Rf - | | N/A: | [facility] | | 08/20/ | [id number] | | [id number]: Qty: 1 on | | Heart | MEDICAL - | | 2017 | | | 05/14/2017 by Marge, | | | STJU | | | /[id number] | | MD [facility] | | | [...] | | INTERROGATION- | e | 0:00 PDT | Interrogation | procedure are in [...] 3 Months Results Device Interrogation - Remote (01/29/2019 0:00 PDT) + + + | Narrative | Performed At | + + + | [facility] | KAREN | | MD Marge 01/29/2019 16:10Date of [...] for | | | 0% of the time.No episodes. PVC singles 83,000 PVC | | | singles 27,666/monthPVC runs 0 Histogram | | | fair. Battery longevity 10.1-10.3 years.Apparent normal and stable | | | device function.Device interrogation due in office in December | | | 2019.Patient notified. | | |PVC singles 83,000 PVC [...] | Procedure Note | + + | Crzuito Bird MD - 04/19/2019 2359 PDT Date of Remote Interrogation: | | 01/27/2019Refer to [employer] documentation and remote PDF scanned into [employer] for remote | | interrogation results. Data [...] +--------+ +---------+--------+ | MEDICARE | MEDICA | [id number] | 06/21/19 | [phone] | | Medica | | | RE | | 98-Pre | 5 | | re | | | PART A | | sent | | | | | | AND B | | | | | | + +--------+ +--------+ +---------+--------+ | MODA HE[employer] PLAN | MODA | [id number] | 10/21/19 | [phone] | | Medica | | MEDICAID HMO | HEALTH | | 19-Pre | 1 | | id | | | MDCD | | sent | | | | | | [place]MO [place] | | | | | | + +--------+ +--------+ +---------+--------+ | [place]MIN | [place] | [id number] | | | | Indemn | | [...] Self | [birth year] | | [address] | | | al/Fam | | 1935 | [phone] | [address] | | | isak | | | [address] (Home) | [place] [address] | + +--------+ +--------+ + + | Johnny Siddiqi | Specia | Self | [birth year] | | [address] | | | l | | 1935 | [phone] | [address] | | | Servic | | | 7 (Home) | [place] [address] | | | es | | | | | + +--------+ +--------+ + + Advance Directives Patient has advance care planning documents, and code status on file. For more information, please contact:[facility] [place] [address] + + + + + | Code Status | Date | Date | Comments | | | Activated | Inactivated | | + + + + + | Full Code | 05/08/2017 | 05/16/2017 | | | | 14:11 | 17:12 | | + + + + + + + + +---+ | | | | | + + + +---+ | Full Code | 05/07/2017 | 05/08/2017 | | | | 17:11 | 9:29 | | + + + +---+ + +---------+---+ | Orders discussed with: | Patient | | + +---------+---+ + + + +---+ | | | | | + + + +---+ | Full Code | 02/27/2017 | 03/04/2017 | | | | 18:15 | 18:47 | | + + + +---+ + + + +---+ | | | | | + + + +---+ | Full Code | 03/16/2016 | 03/21/2016 | | | | 12:52 | 18:07 | | + + + +---+ + + + +---+ | | | | | + + + +---+ | Full Code | 04/01/2015 | 04/04/2015 | | | | 14:18 | 13:18 | | + + + +---+
--- OUTSIDE RECORDS SUMMARY | ~2019-03-17 | XMS | Encounter Summary ---
Demographics + + + | Address | [address] | | | [place] [address] | + + + | Home Phone | | + + + | Preferred Language | Unknown | + + + | Marital Status | | + + + | Zoroastrian Affiliation | 1061 | + + + | Race | Unknown | + + + | Ethnic Group | Unknown | + + + Author + + + | Author | [facility] [employer] | + + + | Organization | [facility] [employer] [facility] | + + + | Address [...] Providers + +------+ + | Care Packaging Operator Name | Role | Phone | [...] + + | 12/29/ | Documentati | [facility] | Tawanda Og, | Other (Faxed oxygen | | 2019 | on Only | Pulmonology [address] | [place] | rx to the [place]) | | | | [address] | | | | | | [place] | | | | | | [address] | | | | | | [phone] | | | +--------+ + + + [...] 4:13 PM PDTFaxed oxygen rx to the [place]. Confirmation receiv ed. . [place] Plan of Treatment +--------+---------+ + + + | Date | Type | Specialty | Care Team | Description | +--------+---------+ + + + | 03/31/ | Office | Pulmonology | [place] Adames | | | 2018 | Visit | | Johnny Song MD [address] | | | | | | [address] | | | | | | [place] [address] | | | | | | [phone] | | | | | | | | +--------+---------+ + + + as of this encounter Visit Diagnoses Not on filein this encounter"
--- OUTSIDE RECORDS SUMMARY | ~2019-03-17 | XMS | Encounter Summary ---
Demographics + + + | Address | [address] | | | [place] [address] | + + + | Home Phone | | + + + | Preferred Language | Unknown | + + + | Marital Status | | + + + | Rastafari Affiliation | 1061 | + + + | Race | Unknown | + + + | Ethnic Group | Unknown | + + + Author + + + | Author | [employer] | + + + | Organization | [facility] [employer] | + + + | Address | Unknown | + + + | Phone | Unavailable | + + + Support + + +---------+ + | Name | Relationship | Address | Phone | + + +---------+ + | Cassandra Guthrie | ECON | Unknown | | + + +---------+ + | Crhis Siddiqi | ECON | Unknown | | + + +---------+ + | Bhavna Siddiqi | ECON | Unknown | | + + +---------+ + Care Team Providers + +------+ + | Care Electrical Contacts Adjuster Name | Role | Phone | + +------+ + | Jerson Martin MD | PCP | | + +------+ + Encounter Details +--------+ + + + + | Date | Type | Department | Care Team | Description | +--------+ + + + + | 12/26/ | Documentati | [facility] | [place] Adames | | | 2019 | on Only | Pulmonology 1100 | Johnny Song MD [address] | | | | | [address] | [address] | | | | | [place], [place] | [place] [address] | | | | | [address] | [phone] | | | | | [phone] | | | +--------+ + + + [...] AP. 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
--- OUTSIDE RECORDS SUMMARY | ~2019-03-17 | XMS | Clinical Summary ---
Demographics + + + | Address | [address] | | | [place] [address] | + + + | Home Phone [...] Providers + +------+ + | Care Senior Grant Writer Name | Role | Phone | + [...] St | | Rupert Assurity MRI [id number] 05/14/[address] [facility]pert Tendril | | MRI [id number] 05/14/[address] Rupert Tendril MRI | | [id number] 05/14/17 Indication: Tachycardia-Bradycardia | | Syndrome. | [...] + | Overview: CT scan [address] 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) | +--------+ + + + + | 12/23/ | Office | | Emely Gabriel, | | | 2019 | Visit | | ATTENDING PATHOLOGIST [address] | | | | | | [place] | | | | | | [address] | | | | | | | [...] | [facility] | | 06/20/ | [id number] | | [id number]: Qty: 1 | | Heart | MEDICAL - | | 2016 | 0M/52 | | on 05/14/2017 by Marge, | | | STJU | | | /[id number] | | MD Cruzito | | | | | | 8427 / | + +------+-------+ +--------+--------+--------+ | Lead Tendril Mri 46cm - | | N/A: | [facility] | | 07/20/ | [id number] | | [id number]: Qty: 1 | | Heart | MEDICAL - | | 2016 | 0M/46 | | on 05/14/2017 by Marge, | | | STJU | | | /[id number] | | MD Cruzito | | | | | | 3446 / | + +------+-------+ +--------+--------+--------+ | Pacer Assurity Mri Dr Rf - | | N/A: | [facility] | | 08/20/ | [id number] | | [id number]: Qty: 1 on | | Heart | MEDICAL - | | 2017 | | | 05/14/2017 by Marge, | | | STJU | | | /[id number] | | MD Cruz[facility] | | | [...] scanned into | | | [facility] for remote interrogation results. Data collected by [...] + | Cruzito Bird MD - 04/19/2019 2359 PDT Date of Remote Interrogation: | | 01/27/2019Refer to [employer] documentation and remote PDF scanned into [employer] for remote | | interrogation results. Data [...] +--------+ +---------+--------+ | MEDICARE | MEDICA | [id number] | 06/21/19 | [phone] | | Medica | | | RE | | 98-Pre | 5 | | re | | | PART A | | sent | | | | | | AND B | | | | | | + +--------+ +--------+ +---------+--------+ | MODA HEALTH PLAN | MODA | [id number] | 10/21/19 | [phone] | | Medica | | MEDICAID HMO | HEALTH | | 19-Pre | 1 | | id | | | MDCD | | sent | | | | | | [place]MO [place] | | | | | | + +--------+ +--------+ +---------+--------+ | [employer]ANS ADMIN | VETERA | [id number] | | | | Indemn | | [...] | | 8 (Home) | [place] [address] | + +--------+ +--------+ + + | Johnny Siddiqi | Specia | Self | [birth year] | | [address] | | | l | | 1935 | [phone] | [address] | | | Servic | | | 7 (Home) | [place] [address] | | | es | | | | | + +--------+ +--------+ + + Advance Directives Patient has advance care planning documents, and code status on file. For more information, please contact:[facility] [place] [id number] + + + + + | Code [...]
--- OUTSIDE RECORDS SUMMARY | ~2019-03-17 | XMS | Encounter Summary ---
Demographics + + + | Address | [address] | | | [place] [address] | + + + | Home Phone [...] Team Providers + +------+ + | Care Associate Professor Of Musicology Name | Role | Phone | + [...] Visit | CARDIOLOGY [address] | [address] [place] | congestive heart | | | | [place], | [place], | failure (HCC) | | | | [place] [address] | [place] [address] | (Primary Dx); | | | | [phone] | [phone] | Tachycardia-bradycar | | | | | [...] Since that time, patient was seen at [facility] for pneumo ana. 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 Patient was seen at [facility] for edema seen on 07/08-. [...] He is in a class I of [employer] function al class. There is [...] reduced right ventricular systolic function, normal functioning [facility] hanical aortic valve replacement, mildly thickened and [...] 73 Y.O.(2) and Vascular d isease (1). [id number]-SJIailzff is 4, which gives an estimated 4.0%risk [...] control strategy. 4. Coronary artery disease involving [place] coronary artery of [place] heart without angina pectoris: A. [facility] [...] reviewed and edited this note. Trinidad Johnson, Lifeguard 12/23/2018 Cruzito Breaux MD, personally performed the services described in this documentation, as scribed in my presence and it is both accurate and complete. Trinidad Johnson, Lifeguard 12/23/2018 14:11 Electronically signed by: Cruzito Bird MD [facility] 12/23/2018 Portions of this chart may have been created with [employer] voice recognition software. 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
--- OUTSIDE RECORDS SUMMARY | ~2019-03-17 | XMS | Encounter Summary ---
Demographics + + + | Address | [address] | | | [place] [address] | + + + | Home Phone | | + + + | Preferred Language | Unknown | + + + | Marital Status | | + + + | Restorationist Affiliation | 1061 | + + + | Race | Unknown | + + + | Ethnic Group | Unknown | + + + Author + + + | Author | [facility] [facility] [employer] | + + + | Organization | [facility] [employer] | + + + | Address [...] Team Providers + +------+ + | Care Mushroom Growth Media Mixer Name | Role | Phone | + +------+ + | Jerson Martin MD | PCP | | + +------+ + Reason for Visit +--------+ + | Reason | Comments | +--------+ + | Other | [facility] | +--------+ + Encounter Details +--------+ + + + + | Date | Type | Department | Care Team | Description | +--------+ + + + + | 01/06/ | Documentati | [facility] | Tawanda Og, | Other (Re-faxed | | 2019 | on Only | Pulmonology [address] | [place] | oxygen prescription | | | | [address] | | to the [place]) | | | | [place] | | | | | | [address] | | | | | | [phone] | | | +--------+ + + + [...] encounter Progress Notes Tawanda Og MA - 01/06/2019 11:59 PM PDTRe-[facility]ed [facility] Ramirez sacha phillip. in this encounter Plan of Treatment +--------+---------+ + + + | Date | Type | Specialty | Care Team | Description | +--------+---------+ + + + | 03/31/ | Office | Pulmonology | [place] Adames | | | 2018 | Visit | | Johnny Song MD [address] | | | | | | [address] | | | | | | [place] [address] | | | | | | [phone] | | | | | | | | +--------+---------+ + + + as of this encounter Visit Diagnoses Not on filein this encounter"
--- OUTSIDE RECORDS SUMMARY | ~2019-03-17 | XMS | Clinical Summary ---
Demographics + + + | Address | [address] | | | [place] [address] | + + + | Home Phone | | + + + | Preferred Language | Unknown | + + + | Marital Status | | + + + | Mu-Ism Affiliation | 1061 | + + + | Race | Unknown | + + + | Ethnic Group | Unknown | + + + Author + + + | Author | [employer] | + + + | Organization | [facility] [employer] [facility] | + + + | Address | Unknown | + + + | Phone | Unavailable | + + + Support + + +---------+ + | Name | Relationship | Address | Phone | + + +---------+ + | Cassandra Guthrie | ECON | Unknown | | + + +---------+ + | Chris aPtel | ECON | Unknown | | + + +---------+ + | Bhavna Patel | ECON | Unknown | | + + +---------+ + Care Team Providers + +------+ + | Care Family Lawyer Name | Role | Phone | + [...] Overview: | | CT scan 2003 at [facility] | + + + + + | Coronary artery disease involving [place] coronary artery of | 12/25/2018 | | [place] heart without angina pectoris | | + + + + + | Overview: Overview: [facility] 11/14/2004 shows preserved left | | [...] artery disease involving coronary bypass graft of [place] | 09/03/2016 | | heart with angina [...] diuretic therapy | | (furosemide, metolazone).CXR, 09/03/2016 ([facility]): Aortic | | valve prosthesis, mild pulmonary [...] Valenzuela | | | | | | [place] [address] | | | | | | [phone] | | | | | | | [...] + + | MEDICARE | MEDICA | [id number] | | | [address] | | | RE | | | | [place] [phone] | | | IP-OP | | | | | + +--------+ +------+ + + | [place] | [place] | [id number] | | [phone] FEE SERVICES A136 | | ADMINISTRATION | CHOICE | | | [phone] | [phone] | | | | | | | [place] | | | | | | | [phone] | + +--------+ +------+ + + | MEDICAID | [place] | | | | [address] | | | | | | | [place] | | | FAMILY | | | | [address] | | | CARE | | | | | + +--------+ +------+ + + | MEDICAID | [facility] | [id number] | | | [address] | | | N | | | | [place] | | | [place] | | | | [address] | | | [place] | | | | | + +--------+ [...] | | al/Fam | | [phone] | [phone] | | | [place] | | | [address] | [place] [address] | + +--------+ +--------+ + + | JACKLYN PATEL | Vetera | Self | [birth year] | Home: | [address] | | | ns | | [phone] | | | Admini | | | [address] | [place] [address] | | | strati | | | | | | | on | | | | | + +--------+ +--------+ + +
--- OUTSIDE RECORDS SUMMARY | ~2019-03-17 | XMS | Encounter Summary ---
Demographics + + + | Address | [address] | | | [place] [address] | + + + | Home Phone [...] Team Providers + +------+ + | Care Cloth Cutting Inspector Name | Role | Phone | + [...] Monitor | CARDIOLOGY [address] [place] | Interrogation | | | | [place], | 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 [...] of Remote Interrogation: 10/21/18Refer | | to [employer] documentation and remote PDF scanned into [email or web address] for remote interrogation | | results. Data [...]
--- OUTSIDE RECORDS SUMMARY | ~2019-03-17 | XMS | Encounter Summary ---
Demographics + + + | Address | [address] | | | [place] [address] | + + + | Home Phone | | + + + | Preferred Language | Unknown | + + + | Marital Status | | + + + | Mandaeism Affiliation | 1061 | + + + | Race | Unknown | + + + | Ethnic Group | Unknown | + + + Author + + + | Author | [facility] | + + + | Organization | [facility] | + + + | Address [...] Team Providers + +------+ + | Care Net Manager Name | Role | Phone | [...] + + | 12/25/ | Documentati | [facility] | Tawanda Og, | Other (3-STEP) | | 2019 | on Only | Pulmonology [address] | [place] | | | | | [address] | | | | | | [place] | | | | | | [address] | | | | | | [phone] | | | +--------+ + + + [...] AM PST3 step testing Oximetry Exercise (code) 99982 1. At rest on room air: Time:11:41AM [...] Valenz[place] | | | | | | [place] [address] | | | | | | [phone] | | | | | | | | +--------+---------+ + + + as of this encounter Visit Diagnoses Not on filein this encounter"
--- OUTSIDE RECORDS SUMMARY | ~2019-03-17 | XMS | Encounter Summary ---
Demographics + + + | Address | [address] | | | [place] [address] | + + + | Home Phone | | + + + | Preferred Language | Unknown | + + + | Marital Status | | + + + | Protestant Affiliation | 1061 | + + + | Race | Unknown | + + + | Ethnic Group | Unknown | + + + Author + + + | Author | [facility] | + + + | Organization | [facility] | + + + | Address [...] Team Providers + +------+ + | Care Traveling Clerk Name | Role | Phone | [...] + + | 01/06/ | Documentati | [facility] | Tawanda Og, | Other (Re-faxed | | 2019 | on Only | Pulmonology [address] | [place] | oxygen prescription | | | | [address] | | to the [place]) | | | | [place] | | | | | | [address] | | | | | | [phone] | | | +--------+ + + + [...] Valenzuela | | | | | | [place] [address] | | | | | | [phone] | | | | | | | | +--------+---------+ + + + as of this encounter Visit Diagnoses Not on filein this encounter"
[~2019-03-17 09:42] MED LIST changes: +GUAIFENESIN DM S5 ML PO; +REFRESH TEARS15 ML OU; +TINACTIN108 GM TOP
--- OUTSIDE RECORDS SUMMARY | 2019-03-17 09:44 | XMS ---
PreManage Notification: JACKLYN PATEL Security Nurses Aide Events No recent Security Events currently on file CRITERIA MET - Group Notification - [facility] C[facility] PROVIDERS Lalo Nicholson DO [facility] Current PHONE: Unknown Eddi Rivera Electrifier Operator/Sour Bleaching Pleater 07/23/2017-Current PHONE: [phone] [facility] 07/10/2018-Current PHONE: Unknown Eddi Rivera [facility] 07/23/2017-Current PHONE: [phone] DR SAIMA ANDERSON [facility] Current PHONE: [phone] Lalo Nicholson DO Treatment Current PHONE: Unknown Rikki has no Care Guidelines for this patient. 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 - PATIENT PCP IS DR [facility]A [facility] 02/12/2018 [facility] Care Recommendation: This patient has had 5 or more Emergency Department visits in the last 12 months. Patient requires education on the scope and purpose of the ED as an acute care provider not a Primary Care Provider and should not be utilized for chronic conditions. If patient returns to ED please contact Community Health WorkerAnamaria at [phone]. These are guidelines and the provider should exercise clinical judgment when providing care. E.D. VISIT COUNT ([address] [facility] TOTAL 5 NOTE: Visits indicate total known visits. ED/UCC VISIT TRACKING (12 MO.) 03/17/2019 09:43 [facility] [place] TYPE: Emergency COMPLAINT: - LEFT FOOT PAIN/NONINJURY 12/28/2018 16:13 [facility] [place] TYPE: Emergency COMPLAINT: - SOB 12/08/2018 13:55 [facility] [place] TYPE: Emergency COMPLAINT: - COLD SYMPTOMS DIAGNOSES: - Heart failure, unspecified - Other fpc (current) drug therapy - Latex allergy status [...] unspecified - Pain in left wrist - remote computer terminal operator (current) use of anticoagulants - Obesity, unspecified - Other fpc (current) drug therapy - Gout, unspecified - Hypertensive heart disease with heart failure - Heart failure, unspecified 07/09/2018 12:50 [facility] [place] TYPE: Emergency COMPLAINT: - SOB INPATIENT VISIT TRACKING (12 MO.) 12/30/2018 10:[address] [facility] [place] TYPE: Medical Surgical COMPLAINT: - ACUTE DIASTOLIC CHF EXACERBATION DIAGNOSES: - Atherosclerotic heart disease of algaaciq coronary artery without angina pectoris - Influenza due to other identified influenza virus with other specified pneumonia - Acute kidney failure, unspecified - Influenza due to other identified influenza virus with other specified pneumonia - Chronic kidney disease, unspecified - Other fpc (current) drug therapy - Gout, unspecified - Unspecified hearing loss, unspecified ear - Respiratory failure, unspecified with hypoxia - Hypertensive heart and chronic kidney disease with heart failure and stage 1 through stage 4 chronic kidney disease, or unspecified chronic kidney disease - Presence of aortocoronary bypass graft - longterm (current) use of inhaled steroids - Acute on chronic diastolic (congestive) heart failure - Low back pain - Other chronic pain - longterm (current) use of inhaled steroids - Other fpc (current) drug therapy - Other chronic pain - longterm (current) use of anticoagulants - Chronic atrial fibrillation - remote computer terminal operator (current) use of anticoagulants - Latex allergy status - Respiratory failure, unspecified with hypoxia - Fluid overload, unspecified - Hypertensive heart and chronic kidney disease with heart failure and stage 1 through stage 4 chronic kidney disease, or unspecified chronic kidney disease - Presence of prosthetic heart valve - Presence of prosthetic heart valve - Pneumonia due to other streptococci - Presence of aortocoronary bypass graft - Latex allergy status - Atherosclerotic heart disease of algaaciq coronary artery without angina pectoris - Fluid overload, unspecified - Pneumonia due to other streptococci - Chronic atrial fibrillation - Gout, unspecified - Low back pain - Chronic kidney disease, unspecified - Unspecified hearing loss, unspecified ear - Acute kidney failure, unspecified 07/09/2018 12:[address] [facility] [place] TYPE: Observation COMPLAINT: - CHF EXACERBATION DIAGNOSES: - remote computer terminal operator (current) use of anticoagulants - Paroxysmal atrial fibrillation - Heart failure, unspecified - Hyperlipidemia, unspecified - Presence of cardiac pacemaker - Presence of aortocoronary bypass graft - Chronic kidney disease, stage 3 (moderate) - Obesity, unspecified - Patient's other noncompliance with medication regimen - Sleep disorder, unspecified - Other chronic pain - longterm (current) use of inhaled steroids - Body mass index (BMI) 34.0-34.9, adult - Chronic obstructive pulmonary disease, unspecified - Other fpc (current) drug therapy - Gout, unspecified - Unspecified hearing loss, unspecified ear - Hypertensive heart and chronic kidney disease with heart failure and stage 1 through stage 4 chronic kidney disease, or unspecified chronic kidney disease - Atherosclerotic heart disease of algaaciq coronary artery without angina pectoris - Low back pain - Presence of prosthetic heart valve - Acute on chronic diastolic (congestive) heart failure - Alcoholic cirrhosis of liver without ascites [email or web address]
[2019-03-17] MEDS ORDERED: MEDROL4 MG PO (11:38)
[2019-03-17] MEDS ORDERED: COLCHICINE0.6 M1 PO (11:38)
== END 2019-03-17 11:57 | disposition home or self-care (01) ==
LOC: ED 09:42
DX: M10.9 Gout, unspecified (principal); I50.9 Heart failure, unspecified; I11.0 Hypertensive heart disease with heart failure; E78.5 Hyperlipidemia, unspecified; Z95.0 Presence of cardiac pacemaker; Z95.5 Presence of coronary angioplasty implant and graft; Z91.040 Latex allergy status; Z79.01 Long term (current) use of anticoagulants; Z79.899 Other long term (current) drug therapy
CPT/HCPCS: 36415; 73660; 84550; 85610; 99283-25

== ENCOUNTER 2020-04-09 09:28 | Inpatient (IN) | payer MEDICARE, OTHER ==
[~2020-04-09] VITALS: Ht 167.6 cm; Wt 87.5 kg
[~2020-04-09 09:28] MED LIST changes: +COLCHICINE0.6 M1 PO; -GUAIFENESIN DM S5 ML PO; +MEDROL4 MG PO; -METOPROLOL TART50 MG PO; +TOPROL XL100 MG PO
--- OUTSIDE RECORDS SUMMARY | 2020-04-09 09:32 | XMS ---
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 - PATIENT PCP IS DR SAIMA ANDERSON AT THE [place]. 02/12/2018 [facility] Care Recommendation: This patient has had 5 or more Emergency Department visits in the last 12 months. Patient requires education on the scope and purpose of the ED as an acute care provider not a Primary Care Provider and should not be utilized for chronic conditions. If patient returns to ED please contact Community Health WorkerAnamaria at [phone]. These are guidelines and the provider should exercise clinical judgment when providing care. E.D. VISIT COUNT (12 MO.) [facility] TOTAL 1 NOTE: Visits indicate total known visits. ED/UCC VISIT TRACKING (12 MO.) [facility] COMPLAINT: - WEAKNESS, SOB INPATIENT VISIT TRACKING (12 MO.) No inpatient visits to display in this time frame [id number]
--- NOTE | 2020-04-09 13:10 | NUR ---
84 YEAR OLD MALE PATIENT ADMITTED TO CCU FORM ED UNDER DR. WALTERS WITH DX OF EXCERBATION COPD, R/O COVID. UPON ADMIT PATIENT IS SOMEWHAT LETHARGIC. WILL FALL ASLEEP QUICKLY. PATIENT SON IN ROOM TO HELP WITH ADMISSION PROCESS. PATIENT BEGAN FEELING INCREAED WEAKNESS,SHORTNESS OF BREATH WITH FEVER LAST NIGHT OR EARLY THIS AM. HX OF PACEMAKER,COPD,CABG, POSSIBLE SLEEP APNEA. PATIENT, AT ONE TIME USES CPAP, HOWEVER REFUSE USE NOW.
--- NOTE | 2020-04-09 13:40 | NUR ---
IS NOW MORE AWAKE. IV ABX INFUSED.
--- NOTE | 2020-04-09 13:55 | NUR ---
ROUTINE MEDICATIONS GIVEN.
--- NOTE | 2020-04-09 14:05 | NUR ---
UP TO COMMODE WITH ASSIST.
--- NOTE | 2020-04-09 14:30 | NUR ---
BACK TO BED WITH ASSIST AFTER HAVING LARGE DARK BROAWN FORMED STOOL WITH 250 ML OF DARK TANVIR URINE. IS UNSTEADY ON FEET, AND IS WEAK.
--- NOTE | 2020-04-09 15:12 | NUR ---
RESTING, WILL HOLD ON FOOD UNTIL DINNER.
--- NOTE | 2020-04-09 17:29 | NUR ---
sitting at bedside to take clear liq diet.
--- NOTE | 2020-04-09 17:57 | NUR ---
TOOK CLEAR LIQUIDS FAIR, SITTING AT BEDSIDE TALKING TO SON ON CELL PHONE.
--- NOTE | 2020-04-09 18:10 | NUR ---
TRANSFER TO COMMODE WITH ASSIST. IS UNSTEADY ON FEET.
--- NOTE | 2020-04-09 18:30 | NUR ---
BACK TO BED. PATIENT WISHES TO HAVE HOB FLAT, LEGS RAISED WITH 2 PILLOWS.
--- NOTE | 2020-04-09 20:00 | NUR ---
PATIENT SLEEPING SOUNDLY. WAKES TO VOICE, HOWEVER IS DROWSY AND FALLS ASLEEP QUICKLY. PATIENT IS BREATHING EASY, RR 20. O2 SAT 97% ON ROOM AIR. LUNG SOUNDS ARE DIMINISHED THORUGHOUT. NO COUGH NOTED. PATIENT TAKES PILLS EASILY WITH SIPS OF WATER. PATIENT IS DIAPHORETIC AND COLD, ORAL TEMP WNL. ANGEL LOWER EXTREMITITES HAVE CHRONIC STASIS CHANGES AND ARE WEEPING. PATIENT DENIES NEED TO VOID. IV SITE CAME OUT DUE TO SWEATING LOOSENING THE TAPE. NEW SITE ESTABLISHED IN LEFT FOREARM. PATIENT'S HOB ELEVATED. BED ALARM ACTIVE. CALL LIGHT IN REACH.
--- NOTE | 2020-04-09 20:43 | EKG ---
[facility] [address] [place] [address] Signed Atrial-paced rhythm with prolonged AV conduction Left bundle branch block Abnormal ECG Confirmed by ZEE WALTERS MD ([id number]) on 04/09/2020 8:43:15 PM Electronically Signed By: ZEE WALTERS MD 04/09/202042 PATIENT NAME: JACKLYN PATEL Electrocardiogram DATE OF : 31 PHYSICIAN: ZEE WALTERS MD REPORT #: [id number] REPORT IS CONFIDENTIAL AND NOT TO BE RELEASED WITHOUT AUTHORIZATION
--- NOTE | 2020-04-09 22:00 | NUR ---
PATIENT RESTING WITH EYES CLOSED. WAKES TO VOICE AND TOUCH. PATIENT DENIES ANY NEEDS. ENCOURAGED TO ATTEMPT TO VOICE. PATIENT IS DROWSY, ABLE TO VOICE ONLY 25 MLS. URINE IS STRAW COLORED. KARUNA CARE DONE AND DRY CLOTHS PLACED IN PATIENT'S GROIN. PATIENT CONTINUES TO BE DIAPHORETIC. VS STABLE.
--- NOTE | 2020-04-10 00:10 | NUR ---
PATIENT WOKE EASILY TO VOICE. ASSISTED PATIENT TO USE THE URNAL. ORAL TEMP WNL. VS STABLE. PATIENT DENIES ANY CONERNS OR NEEDS. CALL LIGHT IN REACH. BED ALARM ACTIVE.
--- NOTE | 2020-04-10 03:34 | NUR ---
PATIENT WAS RESTING WITH EYES CLOSED, WOKE UPON DOOR OPENING. PATIENT IS HAPPY TO SEE STAFF. ORIENTED X3. DENIES ANY CONCERNS. ASSISTED PATIENT TO USE THE URNAL. PATIENT DENIES PAIN OR SOB. APPEARS COMFORTABLE. VS STABLE. PATIENT IS MILDLY CLAMMY BUT NOT DIAPHORETIC PREVIOUSLY NOTED. PATIENT HAS SITS OF WATER WITHOUT ISSUE. DENIES ANY NEEDS. CALL LIGHT IN REACH.
--- NOTE | 2020-04-10 06:15 | NUR ---
LABS DRAWN. PATIENT TOLERATED WELL. PATIENT DENIES ANY CONCERNS THIS MORNING. VS STABLE. TOLERATING ROOM AIR. NO SOB OR PAIN. ASSISTED PATIENT TO VOID USING URNAL.
--- NOTE | 2020-04-10 07:40 | NUR ---
ASSESSMENT DONE. PATIENT IS CONFUSED AND IS FRUSTRATED BY THIS. STATES I AM SO CONFUSED, THIS IS REALLY THROWING ME OFF. NO WHEEZES NOTED. ROUTINE MEDICATIONS GIVEN.
--- NOTE | 2020-04-10 09:00 | NUR ---
SITTING AT BEDSIDE TO TAKE CLEAR LIQUID BREAKFAST.IS VERY THANKFUL FOR THE CARE HE IS RECIEVING.
--- NOTE | 2020-04-10 09:30 | NUR ---
SITTING AT BEDSIDE. SPONGE BATH GIVEN, TOLERATED WELL. THEN TO COMMODE TO EXPELL STOOL AND SEMI-LIQUID GREENISH STOOL WITH URINE. THEN TO CHAIR. TOLERATED MOVEMENT WELL.
--- NOTE | 2020-04-10 10:00 | NUR ---
SITTING IN CHAIR. DENEIS SHORTNESS OF BREATH.
--- NOTE | 2020-04-10 10:50 | NUR ---
TO COMMODE WITH ASSIST TO EXPELL, GREENISH SEMI-LIQUID STOOL.HAS BEEN USING WALKER FOR TRANSFERS. DENIES PAIN. BACK TO BED W/O INCIDENT.
--- NOTE | 2020-04-10 12:00 | NUR ---
ASSESSMENT UNCHANGED. PATIENT HAS BEEN VERY TALKATIVE. CONTINUE TO DENY PAIN.
--- NOTE | 2020-04-10 14:25 | NUR ---
REMAINS IN CHAIR. NO DISTRESS NOTED.
--- NOTE | 2020-04-10 17:00 | NUR ---
TO MED-SURG VIA CHAIR. REPORT GIVEN UPON ARRIVAL TO MED-SURG.
--- NOTE | 2020-04-10 17:10 | NUR ---
PATIENT ARRIVED TO MED SURG ROOM 123 AT 1700. BEDSIDE REPORT FROM SAMEER VILLARREAL. PATIENT IS SITTING IN CHAIR, REPORTS HE UNDERSTANDS HOW TO USE THE CALL LIGHT, BED ALARM IN ROOM, PATIENT IS FORGETFULL AT BASELINE.
--- NOTE | 2020-04-10 18:46 | NUR ---
PATIENT IN CHAIR, SON IN ROOM. CALL LIGHT IN REACH. NO FURTHER NEEDS AT THIS TIME.
--- NOTE | 2020-04-10 19:25 | NUR ---
TOOK OVER DANA MARTIN AND DANA HARRY BEING WITH THE PATIENT USING THE TOILET. OFFERED PULL UPS TO PATIENT. PATIENT IS BACK IN BED SITTING. RT DA WAS WITH PATIENT TO GIVE BREATHING TREATMENT.
--- NOTE | 2020-04-10 23:05 | NUR ---
HEAD OF BED FLAT IN BED, FLUSHED FACIAL FEATURES STILL PRESENT. LEGS ELEVATED IN 3 PILLOWS, NO DISTRESS. FLUIDS AND CALL LIGHT AT BEDSIDE, EYES CLOSED, NO RESP DISTRESS,
--- NOTE | 2020-04-11 03:50 | NUR ---
PATIENT CALLED TO USE THE URINAL. PATIENT DANGLED BY THE BED AND VOIDED IN THE URINAL. V/S AND I&O AND WEIGHT TAKEN AND RECORDED. PATIENT IS BACK IN BED. CALL LIGHT IN REACH.
--- NOTE | 2020-04-11 05:29 | NUR ---
SLEPT OFF AND ON. ON ROOM AIR. FLUSHED FACE, BRUISING AND SCABS OVER FACE AND ARMS HEALING. LE WITH VENOUS STASIS DARK COLORING , SLEEPS WITH HEAD FLAT AND LEGS ELEVATED WITH 3 PILLOWS, DAILY WEIGHT WAS 88.4KG, TELE37 IN PL[address] PACED RHTYTHM, DENIES C.O CP, ANXIOUS, EASILY REASSURED, UP TO BR W 1PA, USES URINAL, ATTENDS IN PLACE HE DRIBBLES, VOIDING QS URINE, HAD 1BM AT BEGINING OF SHIFT. PT HAPPY OVER NEEDING TO GO HOME TODAY. RECEIVED SOLUMEDROL IV. ON ROOM AIR, LUNGS DIM AT BASES.
--- NOTE | 2020-04-11 07:39 | NUR ---
PT RESTING QUIETLY AT TIME OF BEDSIDE REPORT, AWAKE AND TALKATIVE AT THIS TIME. STATES HE IS GOING HOME TODAY, AGREES HE IS READY. DENIES SOB OR ANY OTHER DISCOMFORTS
--- NOTE | 2020-04-11 09:24 | NUR ---
Supratherapeutic INR today of 4.9, in spite of lowered dose yesterday. Patient currently taking 3 medications with know drug intrx with warfarin. Hold warfarin today
--- NOTE | 2020-04-11 09:53 | NUR ---
PT SITS ON EDGE OF BED FOR MORNING MEAL EATS ABOUT 50%. UPBEAT AND COOPERATIVE. P/T IN TO WORK WITH PT
--- NOTE | 2020-04-11 11:02 | NUR ---
PATIENT IN BED TALKING ON HIS PHONE. CALL LIGHT IN REACH. DENTURES CLEANED. WARM WASHCLOTH GIVEN. NO FURTHER NEEDS AT THIS TIME.
--- NOTE | 2020-04-11 12:19 | NUR ---
PT SITTING UP ON THE EDGE OF THE BED FOR NOON MEAL, SON IS PRESENT IN THE ROOM QUESTIONS ASKED AND ANSWERED.
--- NOTE | 2020-04-11 13:25 | NUR ---
PATIENT IN BED RESTING. CALL LIGHT IN REACH. NO FURTHER NEEDS AT THIS TIME.
[2020-04-11] MEDS ORDERED: NYSTATIN15 GM TOP (13:26)
[2020-04-11] MEDS ORDERED: GUAIFENESIN DM S5 ML PO (13:26)
[2020-04-11] MEDS ORDERED: AQUAPHOR99 GM TOP (13:35)
[2020-04-11] MEDS ORDERED: A AND D OINTM42.5 GM TOP (13:36)
--- NOTE | 2020-04-11 13:37 | NUR ---
DR WALTERS IN TO SEE PT EARLIER SON PRESENT, QUESTIONS ASKED AND ANSWERED. PT RESTING EYES CLOSED AT THIS TIME, APPEARS RESTFUL, BREATHING EVEN AND UNLABORED
[2020-04-11] MEDS ORDERED: TESSALON PERLE100 MG PO (13:38)
--- NOTE | 2020-04-11 13:40 | NUR ---
Medications reconc[facility] using [facility]. Warfarin dose and goal INR verified by patient's anticoagulation clinic. INR goal per clinic is 2.0-3.0
--- NOTE | 2020-04-11 15:01 | NUR ---
STOPPED BY TO SEE IF I COULD TALK TO PATIENT ABOUT A LOW-SODIUM DIET. RN PETER SAID HE IS EXHAUSTED AND IS GOING TO TAKE A NAP. I WILL STOP BY IN THE MORNING.
--- NOTE | 2020-04-11 15:46 | NUR ---
SPOKE WITH PATIENT IN ROOM. PATIENT IS MILDLY CONFUSED AT TIMES ASKING QUESTIONS OVER. PATIENT IS ORIENTED TO PERSON, PLACE, AND ALL BUT EXACT DAY. HE STATES HE LIVES AT [facility]. HE DOES NOT DRIVE. IS RETIRED. HE HAS TWO CAREGIVERS WHO COME IN DAILY, EVEN ON WEEKENDS. HE STATES ITS ABOUT 5 HOURS TOTAL A DAY. THEY COOK, CLEAN AND HELP HIM BATHE. HE STATES HIS SON JACKLYN DOES HIM MEDICATIONS. HE GETS THEM FILLED THROUGH THE [facility]. HE PUTS THEM IN A PILL BOX SO ALL PATIENT HAS TO DO IS TAKE THEM. HE STATES HE HAS A WALKER (WITH SEAT AND IS IN THE ROOM), AND A SCOOTER. HE STATES HE GETS TO APPOINTMENTS OR STORE WITH HIS SON. HE STATES HE USES OXYGEN AT HOME "WHEN I NEED IT" AND DOESN'T REMEMBER WHO IT IS THROUGH. HIS SON IS CHERELLE. PATIENT STATES HE WILL GO HOME AT DISCHARGE. HE FEELS "MUCH BETTER TODAY". PATIENT STATES HIS SON AND FAMILY WILL HELP WITH ANYTHING HE NEEDS. PATIENT IS CHEERFUL AND VISITS READILY WITH THIS NURSE WHO HAS KNOWN HIM FOR SOME TIME. PATIENT RECEIVED A CALL FROM A GRANDSON SO CM WILL FOLLOW NEEDED.
--- NOTE | 2020-04-11 17:44 | NUR ---
PT UP IN THE CHAIR WITH EVENING MEAL, STATES HE'S REALLY ENJOYING THE GREENS" CONTINUES TO BE UPBEAT AND CHEERFUL NO SOB OR C/O OF DISCOMFORTS. CHAIR ALARM IS SET, CALL LIGHT IN HAND
--- NOTE | 2020-04-11 18:41 | NUR ---
PATIENT IN BED WATCHING TV. DENTURES IN CUP WITH RECRUITING ASSOCIATE. CALL LIGHT IN REACH. NO FURTHER NEEDS AT THIS TIME.
--- NOTE | 2020-04-11 19:15 | NUR ---
ROUNDED CHARGE. pt ATTEMPTING TO GET OUT OF BED INDEPENDENTLY. BED ALARM SOUNDING. pt EDUCATED TO USE CALL LIGHT, DANA PRAKASH IN ROOM TO ASSIST pt TO RESTROOM W FWW.
--- NOTE | 2020-04-11 19:30 | NUR ---
REPORT RECEIVED FROM DAY SHIFT RN. PT UP TO BR WITH HEALTH EDUCATION DIRECTOR AT THIS TIME. WHITE BOARD UPDATED.
--- NOTE | 2020-04-11 19:42 | NUR ---
Helped pt to the restroom and back to bed, provided pt with warm blankets, set bed alarm.
--- NOTE | 2020-04-11 21:20 | NUR ---
EVENING ASSESSMENT COMPLETE. SCHEDULED MEDS ADMINISTERED PER EMAR. PT PLEASANTLY CONFUSED, REORIENTED TO PLACE AND TIME. DENIES SOB OR CHEST PAIN. RESPIRATIONS EVEN AND UNLABORED. PT TALKATIVE AND GRATEFUL OF CARE PROVIDED. WARM BLANKET PROVIDED. BED ALARM ON FOR SAFETY. NURSE CALL LIGHT WITHIN REACH.
--- NOTE | 2020-04-12 00:09 | NUR ---
PT RESTING IN BED WITH EYES CLOSED, NAD. RR EVEN AND UNLABORED. CALL LIGHT IN REACH. BED ALARM ON.
--- NOTE | 2020-04-12 01:08 | NUR ---
BED ALARM SOUNDING. PT UP TO BR WITH SBA AND PERSONAL WALKER. GAIT STEADY. BACK TO BED, MARIMAR WELL. NO SOB NOTED. NO FURTHER NEEDS. BED ALARM ON. CALL LIGHT IN REACH.
--- NOTE | 2020-04-12 01:10 | NUR ---
BED ALARM WENT OFF. THIS RIGGING LOFT REPAIRER AND PRIMARY RN HELPED PATIENT USE THE TOILET. PATIENT IS BACK IN BED. BED ALARM ON FOR SAFETY.
--- NOTE | 2020-04-12 02:51 | NUR ---
PT RESTING IN BED WITH EYES CLOSED, NAD.
--- NOTE | 2020-04-12 06:24 | NUR ---
PT SLEPT WELL. PLEASANTLY CONFUSED. NEEDS REORIENTATION. BED ALARM. SBA WITH PERSONAL WALKER. RA. VOID QS. ORAL ABX.
--- NOTE | 2020-04-12 07:53 | NUR ---
PT RESTING SOUNDLY AT TIME OF BEDSIDE REPORT. HE REPORTED POOR SLEEP THE NIGHT BEFORE, DID MUCH BETTER LAST NIGHT PER REPORT. APPEARS COMFORTABLE BREATHING EVEN AND UNLABORED
--- NOTE | 2020-04-12 08:34 | NUR ---
PT UP TO THE CHAIR UPBEAT AND TALKATIVE. BREATHING TREATMENT COMPLETED BREAKFAST SERVED. CALL LIGHT IN LAP WITH REMINDER, CHAIR ALARM SET
--- NOTE | 2020-04-12 09:30 | NUR ---
PATIENT UP TO BATHROOM, 1PA FWW. OT IN ROOM TO WORK WITH PATIENT. DENTURES PUT IN CUP WITH CLEANING SOLUTION. CALL LIGHT IN REACH. NO FURTHER NEEDS AT THIS TIME.
--- NOTE | 2020-04-12 09:56 | NUR ---
PT EATS 100% OF MORNING MEAL, CONTINUES IN THE CHAIR. O/T IN TO WORK WITH PT HE IS COOPERATIVE DOING PERSONAL CARE TASKS.
[2020-04-12] MEDS ORDERED: CEFDINIR300 MG PO (10:49)
[2020-04-12] MEDS ORDERED: PREDNISONE20 MG PO (10:53)
--- NOTE | 2020-04-12 10:59 | NUR ---
DR WALTERS IN TO SEE PT, DC ORDERS WRITTEN. PT DENIES QUESTIONS OR CONCERNS
--- NOTE | 2020-04-12 11:04 | NUR ---
PATIENT SITTING UP IN RECLINER. STATES "EVERYONE HAS BEEN SO WONDERFUL HERE." HE LIVES ALONE BUT HAS CAREGIVERS. THEY HELP HIM WITH MEALS. HE RECEIVES MEALS ON WHEELS. HE USED TO WEIGH 360 LBS YEARS AGO, NOW HIS USUAL WEIGHT IS AROUND 190 LBS. HE HAS MEMORY ISSUES, SO I DIDN'T DO A FULL DIET EDUCATION ON A LOW-SODIUM DIET. I DID EXPLAIN THAT HE SHOULD NOT EAT OR DRINK SALTY THINGS AND HE SAID HE TRIES NOT TO. HE RARELY EATS OUT. HE DRINKS 97.5% PURE WATER (?) AND THAT'S ABOUT IT. LIKES FLAKE CEREAL WITH STRAWBERRIES AND WATERMELON FOR BREAKFAST. I LEFT A LOW-SODIUM PACKET IN HIS BAG SINCE HE IS GOING HOME. I TOLD HIM TO SHARE THE INFO WITH HIS CAREGIVERS AND/OR FAMILY TO MAKE SURE THEY ALL KNOW WHAT DIET HE IS TO BE FOLLOWING. HE APPRECIATED MY TIME.
--- NOTE | 2020-04-12 14:07 | NUR ---
PT GETTING READY FOR DC. CAREGIVER HERE, PT EXPRESSED GRATITUDE FOR THE CARE HE HAS RECEIVED HERE AT [facility]. EXTENDED A BLESSING AND GAVE PT A G.POST ON HIS WAY OUT
== END 2020-04-12 11:46 | disposition home or self-care (01) | DRG 190 ==
LOC: ED 09:28 → CCU 12:28 → MS 12:28
PROVIDERS: ADMIT Internal Medicine
DX: J44.1 Chronic obstructive pulmonary disease with (acute) exacerbation (principal); I50.33 Acute on chronic diastolic (congestive) heart failure; F03.90 Unspecified dementia, unspecified severity, without behavioral disturbance, psychotic disturbance, mood disturbance, and anxiety; H91.90 Unspecified hearing loss, unspecified ear; Z20.828 Contact with and (suspected) exposure to other viral communicable diseases; M10.9 Gout, unspecified; G89.29 Other chronic pain; R79.1 Abnormal coagulation profile; R41.0 Disorientation, unspecified; I87.8 Other specified disorders of veins; E03.9 Hypothyroidism, unspecified; R09.02 Hypoxemia; Z91.040 Latex allergy status; Z95.0 Presence of cardiac pacemaker; Z95.2 Presence of prosthetic heart valve; Z95.1 Presence of aortocoronary bypass graft; Z79.01 Long term (current) use of anticoagulants; Z79.51 Long term (current) use of inhaled steroids; Z79.899 Other long term (current) drug therapy
CPT/HCPCS: 36415; 71045; 80048; 80053; 81001; 83605; 83735; 83880; 84100; 84484; 85025; 85610; 93005; 93010; 94640; 94760; 97162; 97166; 97535; 99285-25; C9113; C9803; J0456; J0696; J1940; J2920; J7060; J7512; U0002

== ENCOUNTER 2020-04-29 18:38 | Emergency (ER) | payer MEDICARE, OTHER ==
[~2020-04-29] VITALS: Ht 167.6 cm; Wt 87.9 kg
--- OUTSIDE RECORDS SUMMARY | ~2020-04-29 | XMS | Encounter Summary ---
Demographics + + + | Address | [address] | | | [place] [address] | + + + | Home Phone | | + + + | Preferred Language | Unknown | + + + | Marital Status | | + + + | Tenriism Affiliation | [id number] | + + + | Race | Unknown | + + + | Ethnic Group | Unknown | + + + Author + + + | Author | [facility] | | | and [place] | + + + | Organization | [facility] | | | and [place] | + + + | Address | Unknown | + + + | Phone | Unavailable | + + + Support + + +---------+ + | Name | Relationship | Address | Phone | + + +---------+ + | Jacklyn Siddiqi Jr. | ECON | Unknown | | + + +---------+ + | Cassandra Benitez | ECON | NA | | | | | NA, | | + + +---------+ + | Rl Siddiqi | ECON | Unknown | | + + +---------+ + | Chris Siddiqi | ECON | Unknown | | + + +---------+ + | Cassandra Guthrie | ECON | Unknown | | + + +---------+ + Care Team Providers + +------+ + | Care Rope Tow Operator Name | Role | Phone | + +------+ + | Antonio Paulino MD | PCP | | + +------+ + Reason for Visit +--------+ + | Reason | Comments | +--------+ + | Fall | | +--------+ + Auth/Cert +--------+--------+ + + + + | Status | Reason | Specialty | Diagnoses / | Referred By | Referred To | | | | | Procedures | Contact | Contact | +--------+--------+ + + + + | | | | Diagnoses | | | | | | | | | | | | | | Gastrointest | | | | | | | inal | | | | | | | hemorrhage, | | | | | | | unspecified | | | | | | | gastrointest | | | | | | | inal | | | | | | | hemorrhage | | | | | | | type GI | | | | | | | bleed | | | | | | | Procedures | | | | | | | EGD with | | | | | | | Anesthesia | | | +--------+--------+ + + + + Encounter Details +--------+ + + + + | Date | Type | Department | Care Team | Description | +--------+ + + + + | 05/07/ | Hospital | [facility] | Raphael Karimi, | Gastrointestinal | | 2017 - | Encounter | MED CTR ICU [address] | hemorrhage, | | | | [place], | [place], [place] | unspecified | | 05/16/ | | [place] [address] | [id number] | gastrointestinal | | 2017 | | [phone] | | hemorrhage type | | | | | Yodit Philippe MD | (Primary Dx); Atrial | | | | | [address] | fibrillation with | | | | | [place], [place] | RVR ([facility]); Acute on | | | | | [address], | chronic diastolic | | | | | MD Susan [address] | (congestive) heart | | | | | [address] [place] | failure ([facility]); Iron | | | | | [place] [address] | deficiency anemia | | | | | [phone] | due to chronic blood | | | | | | loss; Coronary | | | | | | artery disease | | | | | | involving [place] | | | | | | heart without angina | | | | | | pectoris, | | | | | | unspecified vessel | | | | | | or lesion type; | | | | | | Persistent atrial | | | | | | fibrillation ([facility]); | | | | | | 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 ([facility]) | +--------+ + + + + Social History + +-------+ +--------+------+ | Tobacco Use | Types | Packs/Day | Years | Date | | | | | Used | | + +-------+ +--------+------+ | Never Smoker | | | | | + +-------+ +--------+------+ + + +---------+ + | Alcohol Use | Drinks/Week | oz/Week | Comments | + + +---------+ + | No | | | | + + +---------+ + + + + | Sex Assigned at | Date Recorded | | | | + + + | Not on file | | + + + documented as of this encounter Last Filed Vital Signs + + + + + | Vital Sign | Reading | Time Taken | Comments | + + + + + | Blood Pressure | 119/39 | 05/16/2017 11:09 AM | | | | | PDT | | + + + + + | Pulse | 63 | 05/16/2017 11:09 AM | | | | | PDT | | + + + + + | Temperature | 36.3 C (97.3 F) | 05/16/2017 11:09 AM | | | | | PDT | | + + + + + | Respiratory Rate | 23 | 05/16/2017 11:09 AM | | | | | PDT | | + + + + + | Oxygen Saturation | 95% | 05/16/2017 11:09 AM | | | | | PDT | | + + + + + | Inhaled Oxygen | - | - | | | Concentration | | | | + + + + + | Weight | 101.9 kg (224 lb | 05/16/2017 3:50 AM | | | | 10.4 oz) | PDT | | + + + + + | Height | 167.6 cm (5' 6") | 05/07/2017 5:00 PM | | | | | PDT | | + + + + + | Body Mass Index | 36.26 | 05/07/2017 5:00 PM | | | | | PDT | | + + + + + documented in this encounter Functional Status + + + + | Functional Status | Response | Date of Assessment | + + + + | Are you deaf or do you have serious | Yes | 05/07/2017 | | difficulty hearing? | | | + + + + | Are you blind or do you have serious | No | 05/07/2017 | | difficulty seeing, even when wearing | | | | glasses? | | | + + + + | Do you have serious difficulty walking or | Yes | 05/07/2017 | | climbing stairs? (5 years old or older) | | | + + + + | Do you have difficulty dressing or bathing? | No | 05/07/2017 | | (5 years old or older) | | | + + + + | Because of a physical, mental, or emotional | Yes | 05/07/2017 | | condition, do you have difficulty doing | | | | errands alone such as visiting a doctor's | | | | office or shopping? [15 years old or | | | | older)] | | | + + + + + + + + | Cognitive Status | Response | Date of Assessment | + + + + | Because of a physical, mental, or emotional | Yes | 05/07/2017 | | condition, do you have serious difficulty | | | | concentrating, remembering, or making | | | | decisions? (5 years old or older) | | | + + + + documented as of this encounter Discharge Summaries Susan Vides MD - 05/16/2017 12:52 PM PDT Physician Discharge Summary Patient ID: Jacklyn Siddiqi [id number] 81 y.o. 1935 Admit date: 05/07/2017 Discharge date and time: No discharge date for patient encounter. Admitting Physician: Yodit Philippe MD Discharge Physician: Susan Jarvis MD Admission Diagnoses: Gastrointestinal hemorrhage, unspecified gastrointestinal hemorrhage t ype [K92.2] Discharge Diagnoses: Paroxysmal atrial fibrillation Bradycardia GI Bleed due to coagulopathy Admission Condition: fair Discharged Condition: stable Indication for Admission: Acute GI bleed Hospital Course: Mr Siddiqi was originally admitted for evaluation of melena stool, generalized weakness and mu ltiple falls. He was noted to be anemic on admission. Warfarin was held and he was referre d to GI for further recommendations. Dr Maciel saw him in consultation and recommended an UG I endoscopy. Soon after this he went into afib with RVR and was started on amiodarone per Ca rdiology recommendations. Unfortunately his heart rate dropped significantly so this was dis continued. The air hoist operator recommended putting in a permanent pacemaker and then restartin g amiodarone again. The patient tolerated the procedure and also tolerated amiodarone being restarted. The recommendation was for him to be discharged to a skilled facility for OT/PT prior to discharge home. He was accepted to the SNF today and will follow up with the cardi ologist and his PCP after discharge. He is stable for discharge today; his INR will be foll owed u after discharge. Consults: cardiology and GI Significant Diagnostic Studies: labs: see official report and endoscopy: gastroscopy:see of ficial report for findings Treatments: IV hydration, cardiac meds: amiodarone and anticoagulation: warfarin Discharge Exam: BP (!) 119/39 | Pulse 63 | Temp 36.3 C (97.3 F) (Oral) | Resp 23 | Ht 1.676 m (5' 6 ") | Wt 101.9 kg (224 lb 10.4 oz) | SpO2 95% | BMI 36.26 kg/m General appearance: alert, appears stated age, cooperative, moderately obese and pale Head: Normocephalic, without obvious abnormality, atraumatic Eyes: conjunctivae/corneas clear. PERRL, EOM's intact. Lungs: clear to auscultation bilaterally Heart: regular rate and rhythm, S1, S2 normal, no murmur, click, rub or gallop Abdomen: soft, non-tender; bowel sounds normal; no masses, no organomegaly Extremities: edema 2(+) Neurologic: Grossly normal Psychiatric: Appropriate affect and mood Disposition: SNF Patient Instructions: Discharge Medications New Medications Details amiodarone 400 MG tablet Take 1 tablet by mouth 2 times daily. aka: PACERONE amiodarone 200 mg tablet Take 1 tablet by mouth Daily. aka: PACERONE Start: 05/21/2017 metoprolol succinate 25 mg 24 hr tablet Take 1 tablet by mouth Daily. aka: TOPROL-XL Changed Medications Details albuterol 90 mcg/puff inhaler Inhale 2 puffs into the lungs 3 times daily as needed for Wheezing. What changed: Another medication with the same name was removed. Continue taking this medi cation, and follow the directions you see here. artificial tears 0.5% Soln Place 1 drop into both eyes 4 times daily as needed (for dry eyes). What changed: Another medication with the same name was removed. Continue taking this medi cation, and follow the directions you see here. aka: REFRESH PLUS atorvaSTATin 10 mg tablet Take 10 mg by mouth nightly. What changed: Another medication with the same name was removed. Continue taking this medi cation, and follow the directions you see here. aka: LIPITOR benzonatate 100 mg capsule Take 100 mg by mouth Twice daily as needed for Cough. What changed: Another medication with the same name was removed. Continue taking this medi cation, and follow the directions you see here. aka: TESSALON budesonide-formoterol 160-4.5 mcg/puff inhaler Inhale 2 puffs into the lungs 2 times daily. What changed: Another medication with the same name was removed. Continue taking this medi cation, and follow the directions you see here. aka: SYMBICORT docusate sodium 250 MG capsule Take 250 mg by mouth Daily. What changed: Another medication with the same name was removed. Continue taking this medi cation, and follow the directions you see here. aka: COLACE ferrous sulfate 325 mg tablet Take 325 mg by mouth daily (with breakfast). Patient takes three times weekly on Mon, Wed, Fri What changed: Another medication with the same name was added. Make sure you understand ho w and when to take each. ferrous sulfate 325 mg tablet Take 1 tablet by mouth daily (with breakfast). What changed: You were already taking a medication with the same name, and this prescripti on was added. Make sure you understand how and when to take each. furosemide 40 mg tablet Take 1 tablet by mouth 2 times daily. What changed: when to take this aka: LASIX Unchanged Medications Details donepezil 10 MG tablet Take 5 mg by mouth. aka: ARICEPT guaiFENesin-codeine 100-10 mg/5 mL liquid Take 5 mLs by mouth every 6 hours as needed for Cough. aka: ROBITUSSIN AC levothyroxine 25 mcg tablet Take 25 mcg by mouth every morning (before breakfast). aka: SYNTHROID, LEVOTHROID lisinopril 10 mg tablet Take 10 mg by mouth Daily. aka: PRINIVIL, ZESTRIL nitroglycerin 0.[address] 1 tablet under the tongue every 5 minutes as needed for chest pain, up to 3 doses in 15 minutes - take blood pressure first - call 911 for unrelieved chest pain aka: NITROSTAT nystatin cream Apply topically 3 times daily as needed (for fungal infection). aka: MYCOSTATIN potassium chloride 10 MEQ ER tablet Take 10 mEq by mouth Daily. aka: KLOR-CON skin emollient cream Apply topically. traZODone 50 mg tablet Take 50 mg by mouth nightly as needed for Sleep. aka: DESYREL warfarin 2 mg tablet Take 2 mg by mouth Once a week. Every Saturday aka: COUMADIN warfarin 3 MG tablet Take 3 mg by mouth Once a week. Every Saturday aka: COUMADIN warfarin 4 MG tablet Take 4 mg by mouth Daily. Every Saturday, Saturday, Saturday, , and Saturday aka: COUMADIN Discontinued Medications cyanocobalamin 1000 MCG tablet aka: VITAMIN B-12 desonide 0.05% cream aka: DESOWEN fenofibrate 145 mg tablet aka: TRICOR HYDROcodone-acetaminophen 5-325 mg per tablet aka: NORCO metOLazone 2.5 mg tablet aka: ZAROXOLYN Activity: activity as tolerated with fall precautions Diet: cardiac diet Wound Care: as directed Follow-up with PCP and Cardiology after discharge in 7 days. Signed: Susan Vides MD 05/16/2017 12:52 documented in this encounter Discharge Instructions AttachmentsThe following attachments cannot be sent through Care Everywhere.Pacemaker Impla ntation, Discharge Instructions for (Urdu)documented in this encounter Medications at Time of Discharge + + + +---------+ + + | Medication | Sig | Dispensed | Refills | Start | End Date | | | | | | Date | | + + + +---------+ + + | benzonatate | Take 100 mg by mouth | | 0 | | | | (TESSALON) 100 mg | Twice daily as | | | | | | capsule | needed for Cough. | | | | | + + + +---------+ + + | | Inhale 2 puffs into | | 0 | | | | budesonide-formotero | the lungs 2 times | | | | | | l (SYMBICORT) | daily. | | | | | | 160-4.5 mcg/puff | | | | | | | inhaler | | | | | | + + + +---------+ + + | | Take 5 mLs by mouth | | 0 | | | | guaiFENesin-codeine | every 6 hours as | | | | | | (ROBITUSSIN AC) | needed for Cough. | | | | | | 100-10 mg/5 mL | | | | | | | liquid | | | | | | + + + +---------+ + + | levothyroxine | Take 25 mcg by mouth | | 0 | | | | (SYNTHROID, | every morning | | | | | | LEVOTHROID) 25 mcg | (before breakfast). | | | | | | tablet | | | | | | + + + +---------+ + + | lisinopril | Take 10 mg by mouth | | 0 | | | | (PRINIVIL, ZESTRIL) | Daily. | | | | | | 10 mg tablet | | | | | | + + + +---------+ + + | albuterol 90 | Inhale 2 puffs into | | 0 | | | | mcg/puff inhaler | the lungs 3 times | | | | 0 | | | daily as needed for | | | | | | | Wheezing. | | | | | + + + +---------+ + + | amiodarone | Take 1 tablet by | 30 | 1 | 05/21/20 | | | (PACERONE) 200 mg | mouth Daily. | tablet | | 17 | 8 | | tablet | | | | | | + + + +---------+ + + | amiodarone | Take 1 tablet by | 14 | 0 | 05/16/20 | | | (PACERONE) 400 MG | mouth 2 times daily. | tablet | | 17 | 7 | | tablet | | | | | | + + + +---------+ + + | artificial tears | Place 1 drop into | | 0 | | | | (REFRESH PLUS) 0.5% | both eyes 4 times | | | | 0 | | SOLN | daily as needed (for | | | | | | | dry eyes). | | | | | + + + +---------+ + + | atorvaSTATin | Take 10 mg by mouth | | 0 | | | | (LIPITOR) 10 mg | nightly. | | | | 8 | | tablet | | | | | | + + + +---------+ + + | docusate sodium | Take 250 mg by mouth | | 0 | | | | (COLACE) 250 MG | Daily. | | | | 7 | | capsule | | | | | | + + + +---------+ + + | donepezil | Take 5 mg by mouth. | | 0 | | | | (ARICEPT) 10 MG | | | | | 0 | | tablet | | | | | | + + + +---------+ + + | ferrous sulfate | Take 325 mg by mouth | | 0 | | | | 325 mg tablet | daily (with | | | | 0 | | | breakfast). Patient | | | | | | | takes three times | | | | | | | weekly on Sat, | | | | | | | Fri | | | | | + + + +---------+ + + | furosemide (LASIX) | Take 1 tablet by | 60 | 2 | 05/16/20 | | | 40 mg tablet | mouth 2 times daily. | tablet | | 17 | 0 | + + + +---------+ + + | metOLazone 2.5 mg | Take 1 tablet by | | 0 | 05/08/20 | | | tablet | mouth daily. | | | 16 | 0 | + + + +---------+ + + | metoprolol | Take 1 tablet by | 30 | 1 | 05/16/20 | | | succinate | mouth Daily. | tablet | | 17 | 8 | | (TOPROL-XL) 25 mg 24 | | | | | | | hr tablet | | | | | | + + + +---------+ + + | nitroglycerin | Place 1 tablet under | | 0 | | | | (NITROSTAT) 0.4 mg | the tongue every 5 | | | | 0 | | SL tablet | minutes as needed | | | | | | | for chest pain, up | | | | | | | to 3 doses in 15 | | | | | | | minutes - take blood | | | | | | | pressure first - | | | | | | | call 911 for | | | | | | | unrelieved chest | | | | | | | pain | | | | | + + + +---------+ + + | nystatin | Apply topically 3 | | 0 | | | | (MYCOSTATIN) cream | times daily as | | | | 0 | | | needed (for fungal | | | | | | | infection). | | | | | + + + +---------+ + + | potassium chloride | Take 10 mEq by mouth | | 0 | | | | (KLOR-CON) 10 MEQ | Daily. | | | | 8 | | ER tablet | | | | | | + + + +---------+ + + | skin emollient | Apply topically. | | 0 | | | | (EUCERIN CALMING | | | | | 0 | | DAILY MOIST) cream | | | | | | + + + +---------+ + + | traZODone | Take 50 mg by mouth | | 0 | | | | (DESYREL) 50 mg | nightly as needed | | | | 0 | | tablet | for Sleep. | | | | | + + + +---------+ + + | warfarin | Take 3 mg by mouth | | 0 | | | | (COUMADIN) 3 MG | Once a week. Every | | | | 7 | | tablet | Saturday | | | | | + + + +---------+ + + | warfarin | Take 4 mg by mouth | | 0 | | 08/30/201 | | (COUMADIN) 4 MG | Daily. Every Saturday, | | | | 7 | | tablet | Saturday, Saturday, | | | | | | | , and | | | | | | | Saturday | | | | | + + + +---------+ + + | warfarin | Take 4 mg by mouth. | | 0 | | | | (COUMADIN) 4 MG | In the evening on | | | | 8 | | tablet | odd days | | | | | + + + +---------+ + + documented as of this encounter Progress Notes Yodit Philippe MD - 06/04/2017 8:18 PM PDT [facility] HOSPITALIST PROGRESS NOTE Patient: Jacklyn Siddiqi : 1935: Age: 81 y.o. MedRec: [id number] PCP: Antonio Paulino MD Admission date: 05/07/2017 Hospital day # : 9 Physician author: Yodit Philippe MD Today: 06/04/2017 SUBJECTIVE: No chest pain. Usual shortness of breath. Worried about keeping up the lymphedema bahman mohit [facility] to allow leg ulcers to heal. Nursing notes that patient's heart rat e rises to 200bpm or over quite often, particularly when he is up and about. He denies dizz iness. VITALS: Temp: 36.3 C (97.3 F), Pulse: 63, Resp: 23, BP: (!) 119/39, SpO2 95 % on room air at fl ow rate 2L/min No Data Recorded Weight: 104.3 kg (230 lb) No intake/output data recorded. No intake/output data recorded. PHYSICAL EXAM: General: Chronically ill Cardiovascular: Irregularly, irregular with systolic and diastolic murmurs Respiratory: Dependent rales Abdomen: Soft, nontender Extremities: Diminished but adequate perfusion Skin: Ulcers of calves very shallow and clean; compression dressings replaced. Neurological: Nonfocal; alert and oriented. DIAGNOSTIC STUDIES: Available data and images were reviewed personally. Significant results and findings are a ddressed here or in the Assessment and Plan. No results found for this or any previous visit (from the past 24 hour(s)). No results found. Current Medications: albuterol amiodarone amiodarone artificial tears atorvaSTATin benzonatate budesonide-formoterol docusate sodium donepezil ferrous sulfate furosemide guaiFENesin-codeine levothyroxine lisinopril metoprolol succinate nitroglycerin nystatin potassium chloride skin emollient traZODone warfarin warfarin warfarin ASSESSMENT and PLAN: Active Hospital Problems Diagnosis CRUZITO (obstructive sleep apnea) - using his own CPAP Venous stasis of both lower extremities - in compression dressings; due to underlying C HF, pulmonary hypertension, liver disease and mild chronic kidney disease Anemia Diastolic CHF CAD (coronary artery disease) Pulmonary HTN Dementia Liver cirrhosis H/O aortic valve replacement - functioning well. Hypertension Resolved Hospital Problems Diagnosis Date Noted Date Resolved *Atrial fibrillation with RVR - quite rapid AF - will try amiodarone per cardiology sug gesiton 03/19/2016 05/16/2017 Acute on chronic diastolic (congestive) heart failure - on maximal therapy 03/16/2016 0 05/16/2017 Total time of approximately 25 minutes was spent with the patient and/or patient's family, and/or on the patient's floor/unit, of which more than 50% was spent counseling and/or coord ination the patient's care as outlined above. Yodit Philippe 06/04/2017 20:[address] [facility] Shawn Lewis, [facility] Offset Duplicating Machine Operator - 05/16/2017 9:29 AM PDTFormatting of this note might be different from the o riginal. WARFARIN PER PHARMACY PROTOCOL: Subjective/Objective: Jacklyn Siddiqi is a 81 y.o. male admitted on 05/07/2017 and is receiving warfarin. Patient has a past medical history of Alcoholic cirrhosis (HCC) (2003); CAD (coronary artery disease) ( 2004); CVA (cerebral infarction) (-2014); Dementia; Diastolic CHF (); Endocarditis (2008 ); H/O aortic valve replacement (2004); Hypertension; Liver cirrhosis (HCC); Over-anticoagul ated (04/01/2015); Peripheral vertigo (2012); PSA elevation (2008); Pulmonary HTN (HCC); Reti nal detachment (2010); and Venous ulcer (2013). Goal INR: 2-3 []Initiation [x]chronic Home regimen: 2 mg Saturday, 3 mg Saturday and 4 mg all other days Managed by: Sensitizers: admitted with bleed/excessive skin bleed, hx of cirrhosis, chf, renal/liver dx Drug Interactions: amiodarone Recent Labs Lab 05/16/17 0539 05/15/17 0424 05/14/17 1753 05/13/17 0436 05/12/17 1949 05/12/17 194 CREA -- -- 1.20 1.67* 1.82* -- HGB -- -- 9.6* 9.3* 8.9* -- HCT -- -- 29.4* 29.1* 27.5* -- PLT -- -- 136* 126* 129* -- INR 1.31* 1.32* -- -- -- 2.04* Date 05/14 05/15 05/16 Hgb 9.3 Hct 29.1 Platelets 126 INR - 1.32 1.31 Warfarin Dose 2.5 mg 2.5 mg 2.5 mg Assessment: History of mechanical aortic valve replacement Warfarin held since 05/10 for pacemaker implantation preformed on 05/14 Warfarin restarting after procedure 05/14 PM The INR was below the target range of 2-3 for aortic valve replacement Givin the drug-drug interaction between warfarin and amiodarone will restart warfarin at a lower dose compared to their home dose. Pending INR with am labs tomorrow will dose increase. Patient eating 100 %. Plan: 1. Warfarin 2.5 mg po daily 2. Medication profile reviewed for potential drug-drug interactions 3. Labs in am: INR 4. 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 5. Pharmacist to follow daily Warfarin Dosing Nomogram Warfarin Dosing Expectations Per P&T-approved Electronically signed by: Shawn Mercedes, Bankruptcy Legal Assistant 05/16/2017 9:29 Michael Giang MD - 05/16/2017 7:18 AM PDT PATIENT NAME: Jacklyn Siddiqi : 1935: AGE: 81 y.o. ADMISSION DATE: 05/07/2017 HOSPITAL DAY NUMBER: 9 PRIMARY CARE: Antonio Paulino MD CONSULTING PROVIDER: Cruzito Bird MD CARDIOLOGY PROGRESS NOTE DATE OF SERVICE: 05/16/17 SUBJECTIVE: Patient continued to do well. Today looks great in normal sinus rhythm. No atrial fibrill ation or ventricular tachycardia with amiodarone. He denies any specific cardiac complaints today. There is no chest pain or chest discomfort both at rest and on exertion. Patient d enies breathlessness. There is no palpitation dizziness or lightheadedness. There is no an kle or leg swelling. Patient can sleep on one pillow at night without difficulty breathing. CURRENT SCHEDULED MEDS: albuterol 2.5 mg Nebulization RT Q12H albuterol 2.5 mg Nebulization RT BID [START ON 05/21/2017] amiodarone 200 mg Oral Daily amiodarone 400 mg Oral BID atorvaSTATin 10 mg Oral Nightly benzonatate 100 mg Oral TID budesonide 0.5 mg Nebulization RT BID docusate-senna 2 tablet Oral BID donepezil 5 mg Oral Nightly ferrous sulfate 325 mg Oral Daily with breakfast furosemide 40 mg Oral BID (8 and 16) hydrocortisone Topical BID metoprolol succinate 25 mg Oral Daily warfarin 2.5 mg Oral Daily - Warfarin warfarin per pharmacy Other Pharmacy Consult IV INFUSIONS: DOPamine Stopped (05/12/17 0745) norepinephrine Stopped (05/11/17 2575) OBJECTIVE: PHYSICAL EXAM Latest VS: BP 121/41 | Pulse 66 | Temp 35.3 C (95.5 F) | Resp 20 | Ht 1.676 m (5' 6") | Wt 101.9 kg (224 lb 10.4 oz) | SpO2 96% | BMI 36.26 kg/m Admit Weight: Weight: 104.3 kg (230 lb) Current weight: Weight: 101.9 kg (224 lb 10.4 oz) Vital sign ranges for last 24hrs: Input and output for last 24hrs: Temp: [35.3 C (95.5 F)-37.5 C (99.5 F)] 35.3 C (95.5 F) Pulse: [63-79] 66 Resp: [16-25] 20 BP: (117-124)/(26-57) 121/41 SpO2 Av.4 % Min: 88 % Max: 98 % 05/14 190 - 05/16 0700 In: 590 [P.O.:590] Out: 4385 [Urine:4385] Constitutional General appearance: Elderly male individual, well developed, well nourished, well groo med, no acute distress Cardiovascular Palp/Percussion: PMI in 5th ICS at MCL; no lifts, thrills, palp S3 or S4. Auscultation: normal S1 S2; no gallop or rub or click Murmur: Carotid arteries: pulses 2+, symmetric, no bruits Abdominal aorta: no enlargement or bruits Pedal pulses: pulses 2+, symmetric Peripheral circulation: Bilateral trace to 1+ leg pitting edema with left leg wrapped. Gastrointestinal Abdomen: soft, non-tender Liver and spleen: no enlargement Mental Status/Neurological Orientation: oriented to time, place, and person Affect/Mood: no depression, anxiety, or agitation Respiratory Respiratory effort: no intercostal retractions or use of accessory muscles Auscultation: no rales, rhonchi, or wheezes LABS Recent Results (from the past 24 hour(s)) Protime INR Collection Time: 05/16/17 5:39 Result Value Ref Range PROTIME 16.6 (H) 11.3 - 13.9 seconds INR 1.31 (H) 0.90 - 1.10 ASSESSMENT: 1. Fall/syncope with atrial fibrillation with complete left bundle branch block and wide- complextachycardiasuggesting A. fib with RVR/abrasion conduction A. Echocardiogram of 05/13/17 showed mild biatrial dilatation. Normal left ventricular siz e with a mild concentric left ventricular hypertrophy. Left ventricular systolic function is preserved. LVEF is 55-60%. Evidence of a paradoxical septal motion. Normal right ventricula r size and wall thickness with a mildly decreased right ventricular systolic function. Emily lly functioning mechanical bileaflet aortic valve replacement. Mildly thickened and calcifie d mitral valve with adequate opening. There is a mild mitral valve regurgitation. Mild mitral annular calcification. Moderate pulmonary hypertension with a peak systole pres sure of 65-70 mmHg. Dilated IVC without respiratory collapse suggesting fluid retention. When compared to echocardiography on 02/28/17, pulmonary hypertension is slightly worsened and patient appear ed to be fluid overloaded on this study. B. Hewas in his usual state of health until 05/07/17 when he was admitted after he fell twice while walking out of a convenience store. He was found to be anemic so original thou ght was that he had GI bleeding causing the syncope. However, upper GI endoscopy did not r eveal significant source of GI bleeding.Over the next few days, patient developed atrial f ibrillation with rapid ventricular response. He was given metoprolol but ran into problems with hypotension. Amiodarone was started. However, he developed a severe bradycardia wi th hypotension, requiring dopamine. C. Patient underwent successful [employer] medical MRI compatible, dual-chamber permanent p acemaker implantation on 05/14/17 and was loaded on oral amiodarone 400 mg twice a day to damaris at atrial fibrillation with symptomatic irreversible tachycardia/bradycardia syndrome. D. Patient continued to do well. Today looks great in normal sinus rhythm. No atrial f ibrillation or ventricular tachycardia with amiodarone. He denies any specific cardiac comp laints today. He has signs and symptoms of overt congestive heart failure. He is in a class IIo f [employer] functional class. There is mild fluid retention on phys ical examination. 2. Congestive heart failure with preserved ejection fraction A. He is being treated with furosemide. Heart failure is well compensated 3. Nonsustained ventricular tachycardia A. Problem is resolved. 4. Mechanical aortic valve replacement A. On long-term Coumadin.Last INR 2 days ago was 2.0. He is now back on Coumadin. I NR is subtherapeutic this morning. Dose is being adjusted by pharmacy. 4. GI bleedingwith anemia A. Being seen by Dr. Dunne. 5. Stage III chronic kidney disease 6. Hyperlipidemia 7. Chronic obstructive pulmonary disease 8. Obstructive sleep apnea PLAN: 1. Today, patient is doing well from cardiac standpoint. I will continue with current medi herberth regimen. 2. Follow-up in 4 weeks. Portions of this report were transcribed using voice recognition software. Every effort wa s made to ensure accuracy; however, inadvertent computerized home health nurse errors may be pre sent. Electronically signed by: Cruzito Bird MD 05/16/2017 7:18 Susan Diaz MD - 05/15/2017 7:43 PM PDT [facility] HOSPITALIST PROGRESS NOTE Patient: Jacklyn Siddiqi : 1935: Age: 81 y.o. MedRec: [id number] PCP: Antonio Paulino MD Admission date: 05/07/2017 Hospital day # : 8 Physician author: Susan Vides MD Today: 05/15/2017 SUBJECTIVE: Mr. Jacklyn Siddiqi is an 81-year-old male who is being seen in follow-up of paroxysm al atrial fibrillation, congestive heart failure, cirrhosis and chronic kidney disease. He is being followed by Dr. Nettles. His main complaint today is pain in the left upper chest wal l where he just had the pacemaker placed. Review of systems: Pertinent positives as noted under subjective, all other systems were re viewed and were negative VITALS: Temp: 37.5 C (99.5 F), Pulse: 66, Resp: 19, BP: 124/54, SpO2 96 % on room air at flow r ate 2L/min Temp Min: 36.1 C (97 F) Max: 37.5 C (99.5 F) Weight: 104.3 kg (230 lb) I/O last 3 completed shifts: In: 1030 [P.O.:1000; I.V.:30] Out: 4560 [Urine:4560] No intake/output data recorded. PHYSICAL EXAM: General: Elderly male who was seated in a chair at the bedside in the ICU. He was not acutely ill-looking, was not in any obvious distress or discomfort, afebrile, anicteric and not pale. HEENT: Head is normocephalic and atraumatic, normal appearance of external ears and nose no johnny. Pupils equally reactive to light and accommodation, extraocular muscles were intact. Cardiovascular: Pacemaker in left upper chest wall. There was some ecchymosis overlying th e area. S1 and S2 were normal. There were no murmurs Respiratory: Clinically clear to auscultation, no rales or rhonchi were appreciated. Ther e was decreased air entry at the bases posteriorly Abdomen: Soft, nontender to palpation, there was no organomegaly, no ventral hernias, bow el sounds are present in all 4 quadrants. Extremities: He had 1+ pitting pedal edema both feet. The was no cyanosis, no finger club linda or deformities noted. Dorsalis pedis pulses were palpable but diminished in both feet. His left upper extremity was immobilized in a shoulder sling Skin: No obvious lesions or ulcers were observed. His skin was warm and dry Neurological: Awake and alert, oriented 2, no focal deficits Psychiatric: Appropriate affect and mood observed DIAGNOSTIC STUDIES: Available data and images were reviewed personally. Significant results and findings are a ddressed here or in the Assessment and Plan. Recent Results (from the past 24 hour(s)) Protime INR Result Value Ref Range PROTIME 16.7 (H) 11.3 - 13.9 seconds INR 1.32 (H) 0.90 - 1.10 Xr Chest Pa And Lateral Result Date: 05/14/2017 EXAM: XR CHEST PA AND LATERAL dated 05/14/2017 8:58 AM HISTORY: post cardiac device procedur e, document lead position and rule out pneumothorax Comparison: May 13, 2017. TECHNIQUE: Fr ontal and lateral views of the chest. FINDINGS: Interval placement of a dual-lead cardiac de vice implant on the left chest. Atrial and ventricular leads are in place. No pneumothorax. Stable positioning of the right PICC line catheter. Persistent consolidation in the left lung. Stable cardiac contour enlargement. Upper changes consistent with prior valvular repa ir surgery. IMPRESSION - Interval placement of a dual-lead implanted cardiac device. No pos tprocedural complication. Persistent left base consolidation. Dictated and Signed by: Paco Villasenor MD Electronically signed: 05/14/2017 9:44 AM Current Facility-Administered Medications: acetaminophen 650 mg Oral Q6H PRN albuterol 2.5 mg Nebulization RT Q12H albuterol 2.5 mg Nebulization RT Q4H PRN albuterol 2.5 mg Nebulization RT BID [START ON 05/21/2017] amiodarone 200 mg Oral Daily amiodarone 400 mg Oral BID artificial tears 1 drop Both Eyes Q4H PRN atorvaSTATin 10 mg Oral Nightly benzonatate 100 mg Oral TID budesonide 0.5 mg Nebulization RT BID docusate-senna 2 tablet Oral BID donepezil 5 mg Oral Nightly DOPamine 2-20 mcg/kg/min Intravenous Titrated ferrous sulfate 325 mg Oral Daily with breakfast furosemide 40 mg Intravenous Daily HYDROcodone-acetaminophen 1 tablet Oral TID PRN hydrocortisone Topical BID metOLazone 2.5 mg Oral Every Other Day metoprolol succinate 25 mg Oral Daily norepinephrine 1-30 mcg/min Intravenous Titrated ondansetron 4-8 mg Intravenous Q6H PRN oxyCODONE 5-10 mg Oral Q4H PRN warfarin 2.5 mg Oral Daily - Warfarin warfarin per pharmacy Other Pharmacy Consult ASSESSMENT and PLAN: Active Hospital Problems Diagnosis *Atrial fibrillation with RVR CRUZITO (obstructive sleep apnea) Acute on chronic diastolic (congestive) heart failure Venous stasis of both lower extremities Anemia Diastolic CHF CAD (coronary artery disease) Pulmonary HTN Dementia Liver cirrhosis H/O aortic valve replacement Hypertension Resolved Hospital Problems Diagnosis Date Noted Date Resolved No resolved problems to display. 1. Atrial fibrillation with complete left BBB and tachycardia/bradycardia syndrome: s/p per manent pacemaker POD #1. Continue postprocedural management per cardiology service. Contin ue oral amiodarone as recommended and follow vital signs 2. Acute decompensated heart failure with preserved ejection fraction: Continue with cardia c medications including furosemide and metolazone. Continue to monitor I/Os and daily weight s. 3. S/p aortic valve replacement: INR is not yet therapeutic; Continue Coumadin and follow I NR 4. Acute gastrointestinal bleed: resolved. 5. Essential hypertension: Continue metoprolol at the current dose and follow blood pressur e readings 6. DARRELL superimposed on CKD stage III: Continue to follow the trend; avoid nephrotoxic drugs and dose medications according to his creatinine clearance 7.VTE prophylaxis: The patient is currently on Coumadin so there is no indication for Loven ox or heparin prophylaxis 8. Discharge planning: He can be discharged home once cleared by the cardiology service Total time of approximately 30 minutes was spent with the patient on the patient's floor/un it, of which more than 50% was spent counseling and/or coordination the patient's care as ou tlined above. Susan Vides 05/15/2017 19:[address] [facility] Jessica Rivas PharmD - 05/15/2017 7:41 AM PDT . WARFARIN PER PHARMACY PROTOCOL: Subjective/Objective: Jacklyn Siddiqi is a 81 y.o. male admitted on 05/07/2017 and is receiving warfarin. Patient has a past medical history of Alcoholic cirrhosis (HCC) (2003); CAD (coronary artery disease) ( 2004); CVA (cerebral infarction) (-2014); Dementia; Diastolic CHF (); Endocarditis (2008 ); H/O aortic valve replacement (2004); Hypertension; Liver cirrhosis (HCC); Over-anticoagul ated (04/01/2015); Peripheral vertigo (2012); PSA elevation (2008); Pulmonary HTN (HCC); Reti nal detachment (2010); and Venous ulcer (2013). Goal INR: 2-3 []Initiation [x]chronic Home regimen: 2 mg Saturday, 3 mg Saturday and 4 mg all other days Managed by: Sensitizers: admitted with bleed/excessive skin bleed, hx of cirrhosis, chf, renal/liver dx Drug Interactions: amiodarone Recent Labs Lab 05/15/17 0424 05/14/17 1753 05/13/17 0436 05/12/17 1949 05/12/17194105/10/172032 CREA -- 1.20 1.67* 1.82* -- < > 1.28 HGB -- 9.6* 9.3* 8.9* -- < > 10.5* HCT -- 29.4* 29.1* 27.5* -- < > 32.8* PLT -- 136* 126* 129* -- < > Adequate | 183 INR 1.32* -- -- -- 2.04* -- 2.07* < > = values in this interval not displayed. Date 05/14 05/15 Hgb 9.3 Hct 29.1 Platelets 126 INR - 1.32 Warfarin Dose 2.5 mg 2.5 mg Assessment: History of mechanical aortic valve replacement Warfarin held since 05/10 for pacemaker implantation preformed on 05/14 Warfarin restarting after procedure 05/14 PM The INR was below the target range of 2-3 for aortic valve replacement Givin the drug-drug interaction between warfarin and amiodarone will restart warfarin at a lower dose compared to their home dose. Plan: 1. Warfarin 2.5 mg po daily 2. Medication profile reviewed for potential drug-drug interactions 3. Labs in am: INR 4. 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 5. Pharmacist to follow daily Warfarin Dosing Nomogram Warfarin Dosing Expectations Per P&T-approved Electronically signed by: Jessica Delaney PharmD 05/15/2017 7:41 Michael Giang MD - 05/15/2017 6:36 AM PDT PATIENT NAME: Jacklyn Siddiqi : 1935: AGE: 81 y.o. ADMISSION DATE: 05/07/2017 HOSPITAL DAY NUMBER: 8 PRIMARY CARE: Antonio Paulino MD CONSULTING PROVIDER: Cruzito Bird MD CARDIOLOGY PROGRESS NOTE DATE OF SERVICE: 05/15/17 SUBJECTIVE: Patient underwent successful [employer] medical MRI compatible, dual-chamber permanent pacema ker implantation on 05/14/17 and was loaded on oral amiodarone 400 mg twice a day to treat at rial fibrillation with symptomatic irreversible tachycardia/bradycardia syndrome. He is doing better overnight. He stays in sinus rhythm with heart rate ranging from 70-80 bpm. Blood pressure is more stable. This morning, his feeling great and denies any specif ic cardiac complaints. There is no chest pain or chest discomfort both at rest and on exert ion. Patient denies breathlessness. There is no palpitation dizziness or lightheadedness. There is no ankle or leg swelling. Patient can sleep on one pillow at night without diffic ulty breathing. CURRENT SCHEDULED MEDS: albuterol 2.5 mg Nebulization RT Q12H albuterol 2.5 mg Nebulization RT BID [START ON 05/21/2017] amiodarone 200 mg Oral Daily amiodarone 400 mg Oral BID atorvaSTATin 10 mg Oral Nightly benzonatate 100 mg Oral TID budesonide 0.5 mg Nebulization RT BID docusate-senna 2 tablet Oral BID donepezil 5 mg Oral Nightly ferrous sulfate 325 mg Oral Daily with breakfast furosemide 40 mg Intravenous Daily hydrocortisone Topical BID metOLazone 2.5 mg Oral Every Other Day metoprolol succinate 25 mg Oral Daily warfarin 2.5 mg Oral Daily - Warfarin warfarin per pharmacy Other Pharmacy Consult IV INFUSIONS: DOPamine Stopped (05/12/17 0745) norepinephrine Stopped (05/11/172214) OBJECTIVE: PHYSICAL EXAM Latest VS: BP 135/43 | Pulse 76 | Temp 36.1 C (97 F) (Oral) | Resp 28 | Ht 1.676 m (5' 6") | Wt 105.4 kg (232 lb 5.8 oz) | SpO2 93% | BMI 37.50 kg/m Admit Weight: Weight: 104.3 kg (230 lb) Current weight: Weight: 105.4 kg (232 lb 5.8 oz) Vital sign ranges for last 24hrs: Input and output for last 24hrs: Temp: [36.1 C (97 F)-37 C (98.6 F)] 36.1 C (97 F) Pulse: [62-80] 76 Resp: [17-30] 28 BP: (101-140)/(20-75) 135/43 SpO2 Av.6 % Min: 91 % Max: 100 % Flow (L/min) Av.7 Min: 2 Max: 4 05/13 07 - 05/14 1900 In: 1853 [P.O.:1160; I.V.:693] Out: 2958 [Urine:2955] Constitutional General appearance: Elderly male individual, well developed, well nourished, well groo med, no acute distress Cardiovascular Palp/Percussion: PMI in 5th ICS at MCL; no lifts, thrills, palp S3 or S4. Auscultation: normal S1 S2; no gallop or rub or click Murmur: Normal prosthetic aortic heart sounds with grade 2/6 systolic ejection murmur at the aortic area. Carotid arteries: pulses 2+, symmetric, no bruits Abdominal aorta: no enlargement or bruits Pedal pulses: pulses 2+, symmetric Peripheral circulation: Trace bilateral swelling with chronic static eczema. Gastrointestinal Abdomen: soft, non-tender Liver and spleen: no enlargement Mental Status/Neurological Orientation: oriented to time, place, and person Affect/Mood: no depression, anxiety, or agitation Respiratory Respiratory effort: no intercostal retractions or use of accessory muscles Auscultation: Bilateral mild expiratory wheezing. LABS Recent Results (from the past 24 hour(s)) ECG 12 lead Collection Time: 05/14/17 11:21 Result Value Ref Range VENTRICULAR RATE EKG 63 BPM ATRIAL RATE 63 BPM P-R INTERVAL 120 ms QRS DURATION 134 ms Q-T INTERVAL 452 ms Q-T INTERVAL (CORRECTED) 462 ms P WAVE AXIS 75 degrees QRS AXIS -23 degrees T AXIS 150 degrees INTERPRETATION TEXT Atrial-paced rhythm Nonspecific intraventricular block Marked T wave abnormality, consider lateral ischemia Abnormal ECG When compared with ECG of 12-MAY-2017 09:34, Electronic atrial pacemaker has replaced Sinus rhythm Confirmed by BINU MACK MD ([id number]) on 05/15/2017 5:56:04 AM ECG 12 lead Collection Time: 05/14/17 11:23 Result Value Ref Range VENTRICULAR RATE EKG 100 BPM ATRIAL RATE 98 BPM P-R INTERVAL 124 ms QRS DURATION 186 ms Q-T INTERVAL 492 ms Q-T INTERVAL (CORRECTED) 634 ms QRS AXIS -63 degrees T AXIS 115 degrees INTERPRETATION TEXT AV dual-paced rhythm with single non-paced complex Abnormal ECG When compared with ECG of 12-MAY-2017 09:34, Electronic ventricular pacemaker has replaced Sinus rhythm Confirmed by BINU MACK MD ([id number]) on 05/15/2017 5:57:23 AM CBC no Differential Collection Time: 05/14/17 17:53 Result Value Ref Range WBC 9.5 4.0 - 11.0 K/uL RBC 3.22 (L) 4.30 - 5.70 M/uL Hgb 9.6 (L) 13.5 - 18.0 g/dL Hct 29.4 (L) 40.0 - 51.0 % MCV 91.4 83.0 - 101.0 fL MCH 29.7 28.0 - 35.0 pg MCHC 32.5 32.0 - 36.0 g/dL RDW-CV 16.5 (H) <15.0 % Platelet Count 136 (L) 140 - 440 K/uL MPV 8.3 fL Creatinine Collection Time: 05/14/17 17:53 Result Value Ref Range Creatinine, Serum/Plasma 1.20 0.60 - 1.30 mg/dL eGFR if not 58 (L) >=60 mL/min/1.73m2 ECG: Sinus rhythm, dual-chamber pacing device, AV sequential pacing rhythm. ASSESSMENT: 1. Fall/syncope with atrial fibrillation with complete left bundle branch block and wide- complextachycardiasuggesting A. fib with RVR/abrasion conduction A. Echocardiogram of 05/13/17 showed mild biatrial dilatation. Normal left ventricular siz e with a mild concentric left ventricular hypertrophy. Left ventricular systolic function is preserved. LVEF is 55-60%. Evidence of a paradoxical septal motion. Normal right ventricula r size and wall thickness with a mildly decreased right ventricular systolic function. Emily lly functioning mechanical bileaflet aortic valve replacement. Mildly thickened and calcifie d mitral valve with adequate opening. There is a mild mitral valve regurgitation. Mild mitral annular calcification. Moderate pulmonary hypertension with a peak systole pres sure of 65-70 mmHg. Dilated IVC without respiratory collapse suggesting fluid retention. When compared to echocardiography on 02/28/17, pulmonary hypertension is slightly worsened and patient appear ed to be fluid overloaded on this study. B. Hewas in his usual state of health until 05/07/17 when he was admitted after he fell twice while walking out of a convenience store. He was found to be anemic so original thou ght was that he had GI bleeding causing the syncope. However, upper GI endoscopy did not r eveal significant source of GI bleeding. Over the next few days, patient developed atrial fi brillation with rapid ventricular response. He was given metoprolol but ran into problems with hypotension. Amiodarone was started. However, he developed a severe bradycardia wit h hypotension, requiring dopamine. C. Patient underwent successful [employer] medical MRI compatible, dual-chamber permanent pa cemaker implantation on 05/14/17 and was loaded on oral amiodarone 400 mg twice a day to anastasia t atrial fibrillation with symptomatic irreversible tachycardia/bradycardia syndrome. D. He is doing better overnight. He stays in sinus rhythm with heart rate ranging from 70 -80 bpm. Blood pressure is more stable. This morning, his feeling great and denies any sp ecific cardiac complaints. He has signs and symptoms of overt congestive heart failure. He is in a class IIo f [employer] functional class. There is mild fluid retention on physi herberth examination. 2. Congestive heart failure with preserved ejection fraction A. He is being treated with furosemide, metolazone and Aldactone. 3. Nonsustained ventricular tachycardia A. Hemodynamically stable at this time. 4. Mechanical aortic valve replacement A. On long-term Coumadin. Last INR 2 days ago was 2.0. He is now ba ck on Coumadin. 4. GI bleeding with anemia A. Being seen by Dr. Dunne. 5. Stage III chronic kidney disease 6. Hyperlipidemia 7. Chronic obstructive pulmonary disease 8. Obstructive sleep apnea PLAN: 1. Change furosemide from IV to by mouth to get him ready to be discharged home. Due to a stage III chronic kidney disease, patient to take furosemide 40 mg twice a day. 2. Stop metolazone. 3. Follow-up electrolytes for kidney and potassium level. Patient might need potassium sup plement if it is indicated by potential low potassium level. For now, I'll hold potassium s upplement due to a chronic kidney disease. 4. Follow-up in my office in 2-3 weeks in my office for heart failure. Portions of this report were transcribed using voice recognition software. Every effort wa s made to ensure accuracy; however, inadvertent computerized home health nurse errors may be pre sent. Electronically signed by: Cruzito Bird MD 05/15/2017 6:36 Susan Diaz MD - 05/14/2017 8:48 PM PDT [facility] HOSPITALIST PROGRESS NOTE Patient: Jacklyn Siddiqi : 1935: Age: 81 y.o. MedRec: [id number] PCP: Antonio Paulino MD Admission date: 05/07/2017 Hospital day # : 7 Physician author: Susan Vides MD Today: 05/14/2017 SUBJECTIVE: Mr. Jacklyn Siddiqi is an 81-year-old male who is being seen in follow-up of paroxysm al atrial fibrillation, congestive heart failure, cirrhosis and chronic kidney disease. He is being followed by Dr. Nettles. He had a pacemaker placed this morning and amiodarone was st arted. If he tolerates the amiodarone, he can probably be discharged within the next 1-2 day s. Review of systems: Pertinent positives as noted under subjective, all other systems were re viewed and were negative VITALS: Temp: 36.2 C (97.2 F), Pulse: 80, Resp: 24, BP: 138/61, SpO2 96 % on room air at flow r ate 2L/min Temp Min: 36.2 C (97.2 F) Max: 37.6 C (99.7 F) Weight: 104.3 kg (230 lb) I/O last 3 completed shifts: In: 1853 [P.O.:1160; I.V.:693] Out: 2958 [Urine:2955; Blood:3] I/O this shift: In: 120 [P.O.:120] Out: 175 [Urine:175] PHYSICAL EXAM: General: Elderly male who was seated in a chair at the bedside in the ICU. He was not acutely ill-looking, was not in any obvious distress or discomfort, afebrile, anicteric and not pale. HEENT: Head is normocephalic and atraumatic, normal appearance of external ears and nose no johnny. Pupils equally reactive to light and accommodation, extraocular muscles were intact. Cardiovascular: S1 and S2 were normal. There were no murmurs Respiratory: Clinically clear to auscultation, no rales or rhonchi were appreciated. Ther e was decreased air entry at the bases posteriorly Abdomen: Soft, nontender to palpation, there was no organomegaly, no ventral hernias, bow el sounds are present in all 4 quadrants. Extremities: He had 1+ pitting pedal edema both feet. The was no cyanosis, no finger club linda or deformities noted. Dorsalis pedis pulses were palpable but diminished in both feet Skin: No obvious lesions or ulcers were observed. His skin was warm and dry Neurological: Awake and alert, oriented 2, no focal deficits Psychiatric: Appropriate affect and mood observed DIAGNOSTIC STUDIES: Available data and images were reviewed personally. Significant results and findings are a ddressed here or in the Assessment and Plan. Recent Results (from the past 24 hour(s)) ECG 12 lead Result Value Ref Range INTERPRETATION TEXT Not Confirmed ECG 12 lead Result Value Ref Range INTERPRETATION TEXT Not Confirmed CBC no Differential Result Value Ref Range WBC 9.5 4.0 - 11.0 K/uL RBC 3.22 (L) 4.30 - 5.70 M/uL Hgb 9.6 (L) 13.5 - 18.0 g/dL Hct 29.4 (L) 40.0 - 51.0 % MCV 91.4 83.0 - 101.0 fL MCH 29.7 28.0 - 35.0 pg MCHC 32.5 32.0 - 36.0 g/dL RDW-CV 16.5 (H) <15.0 % Platelet Count 136 (L) 140 - 440 K/uL MPV 8.3 fL Creatinine Result Value Ref Range Creatinine, Serum/Plasma 1.20 0.60 - 1.30 mg/dL eGFR if not 58 (L) >=60 mL/min/1.73m2 Xr Chest Pa And Lateral Result Date: 05/14/2017 EXAM: XR CHEST PA AND LATERAL dated 05/14/2017 8:58 AM HISTORY: post cardiac device procedur e, document lead position and rule out pneumothorax Comparison: May 13, 2017. TECHNIQUE: Fr ontal and lateral views of the chest. FINDINGS: Interval placement of a dual-lead cardiac de vice implant on the left chest. Atrial and ventricular leads are in place. No pneumothorax. Stable positioning of the right PICC line catheter. Persistent consolidation in the left lung. Stable cardiac contour enlargement. Upper changes consistent with prior valvular repa ir surgery. IMPRESSION - Interval placement of a dual-lead implanted cardiac device. No pos tprocedural complication. Persistent left base consolidation. Dictated and Signed by: Paco Villasenor MD Electronically signed: 05/14/2017 9:44 AM Xr Chest Ap Portable Result Date: 05/13/2017 XR CHEST AP PORTABLE 05/13/2017 2:56 PM HISTORY: pre/op generator/battery change. COMPARISON : Multiple priors. Findings: Sternotomy wires are observed. The heart is enlarged. There is atherosclerosis of the aorta. Mediastinum is unremarkable. Central pulmonary vasculature is normal. A small left pleural effusion is present with mild compressive atelectasis that is s table. Mild atelectasis is in the right lung base. There is mild to moderate spondylosis. IM PRESSION - Cardiomegaly. Stable left pleural effusion. Dictated and Signed by: Deep Garcia MD Electronically signed: 05/13/2017 5:37 PM Xr Chest Ap Portable Result Date: 05/13/2017 XR Chest AP Portable 05/13/2017 5:34 PM HISTORY: Confirm PICC tip placement. COMPARISON: [facility]. Findings: There has been interval placement of a right PICC line with tip at t he cavoatrial junction. Sternotomy wires are present. The heart is enlarged. There is athero sclerosis of the aorta. Mediastinum is unremarkable. Central pulmonary vasculature is normal . A small left pleural effusion is present with mild compressive atelectasis that is stable. Mild atelectasis is in the right lung base. There is mild to moderate spondylosis. IMPRESSI ON - Interval right PICC line with tip at cavoatrial junction. Cardiomegaly. Stable left ple ural effusion. These findings were conveyed to infusion services. Dictated and Signed by: Deon Garcia MD Electronically signed: 05/13/2017 5:36 PM Current Facility-Administered Medications: acetaminophen 650 mg Oral Q6H PRN albuterol 2.5 mg Nebulization RT Q12H albuterol 2.5 mg Nebulization RT Q4H PRN albuterol 2.5 mg Nebulization RT BID [START ON 05/21/2017] amiodarone 200 mg Oral Daily amiodarone 400 mg Oral BID artificial tears 1 drop Both Eyes Q4H PRN atorvaSTATin 10 mg Oral Nightly benzonatate 100 mg Oral TID budesonide 0.5 mg Nebulization RT BID docusate-senna 2 tablet Oral BID donepezil 5 mg Oral Nightly DOPamine 2-20 mcg/kg/min Intravenous Titrated ferrous sulfate 325 mg Oral Daily with breakfast furosemide 40 mg Intravenous Daily HYDROcodone-acetaminophen 1 tablet Oral TID PRN hydrocortisone Topical BID metOLazone 2.5 mg Oral Every Other Day metoprolol succinate 25 mg Oral Daily norepinephrine 1-30 mcg/min Intravenous Titrated ondansetron 4-8 mg Intravenous Q6H PRN oxyCODONE 5-10 mg Oral Q4H PRN warfarin 2.5 mg Oral Daily - Warfarin warfarin per pharmacy Other Pharmacy Consult ASSESSMENT and PLAN: Active Hospital Problems Diagnosis *Atrial fibrillation with RVR CRUZITO (obstructive sleep apnea) Acute on chronic diastolic (congestive) heart failure Venous stasis of both lower extremities Anemia Diastolic CHF CAD (coronary artery disease) Pulmonary HTN Dementia Liver cirrhosis H/O aortic valve replacement Hypertension Resolved Hospital Problems Diagnosis Date Noted Date Resolved No resolved problems to display. 1. Atrial fibrillation with complete left BBB and tachycardia/bradycardia syndrome: s/p per manent pacemaker today. Continue postprocedural management per cardiology service. Continu e oral amiodarone as recommended and follow vital signs 2. Acute decompensated heart failure with preserved ejection fraction: Continue with cardia c medications including furosemide and metolazone. Continue to monitor I/Os and daily weight s. 3. S/p aortic valve replacement: There are no issues with this.Coumadin was restarted today . 4. Acute gastrointestinal bleed: resolved. He will be started back on warfarin today. Phar aidan will dose. We'll continue to monitor the INR. 5. Essential hypertension: Continue with metoprolol at the current dose and follow blood pr essure readings 6. DARRELL superimposed on CKD stage III: His creatinine is starting to trend down. Continue t o follow the trend. Continue to avoid nephrotoxic drugs and dose appropriate medications ac cording to his creatinine clearance 7.VTE prophylaxis: The patient is currently on Coumadin so there is no indication for Loven ox or heparin prophylaxis Total time of approximately 30 minutes was spent with the patient on the patient's floor/un it, of which more than 50% was spent counseling and/or coordination the patient's care as ou tlined above. Susan Vides 05/14/2017 20:[address] [facility] Jessica Rivas PharmD - 05/14/2017 4:08 PM PDT . WARFARIN PER PHARMACY PROTOCOL: Subjective/Objective: Jacklyn Siddiqi is a 81 y.o. male admitted on 05/07/2017 and is receiving warfarin. Patient has a past medical history of Alcoholic cirrhosis (HCC) (2003); CAD (coronary artery disease) ( 2004); CVA (cerebral infarction) (-2014); Dementia; Diastolic CHF (HCC); Endocarditis (2008 ); H/O aortic valve replacement (2004); Hypertension; Liver cirrhosis (HCC); Over-anticoagul ated (04/01/2015); Peripheral vertigo (2012); PSA elevation (2008); Pulmonary HTN (HCC); Reti nal detachment (2010); and Venous ulcer (2013). Goal INR: 2-3 []Initiation [x]chronic Home regimen: 2 mg Saturday, 3 mg Saturday and 4 mg all other days Managed by: Sensitizers: admitted with bleed/excessive skin bleed, hx of cirrhosis, chf, renal/liver dx Drug Interactions: amiodarone Recent Labs Lab 05/13/17 0436 05/12/17 1949 05/12/17 1942 05/11/17 1915 05/10/17203205/09/17 0405 CREA 1.67* 1.82* -- 1.61* 1.28 -- HGB 9.3* 8.9* -- 10.0* 10.5* -- HCT 29.1* 27.5* -- 31.1* 32.8* -- PLT 126* 129* -- 151 Adequate | 183 -- INR -- -- 2.04* -- 2.07* 1.71* Date 05/14 Hgb 9.3 Hct 29.1 Platelets 126 INR - Warfarin Dose 2.5 mg Assessment: History of mechanical aortic valve replacement Warfarin held since 05/10 for pacemaker implantation preformed on 05/14 Warfarin restarting after procedure 05/14 PM The INR was below the target range of 2-3 for aortic valve replacement Givin the drug-drug interaction between warfarin and amiodarone will restart warfarin at a lower dose compared to their home dose. Plan: 1. Warfarin 2.5 mg po daily 2. Medication profile reviewed for potential drug-drug interactions 3. Labs in am: INR 4. 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 5. Pharmacist to follow daily Warfarin Dosing Nomogram Warfarin Dosing Expectations Per P&T-approved Electronically signed by: Jessica Delaney, PharmD 05/14/2017 16:08 Michael Giang MD - 05/14/2017 6:25 AM PDT PATIENT NAME: Jacklyn Siddiqi : 1935: AGE: 81 y.o. ADMISSION DATE: 05/07/2017 HOSPITAL DAY NUMBER: [id number] PRIMARY CARE: Antonio Paulino MD CONSULTING PROVIDER: Cruzito Bird MD CARDIOLOGY PROGRESS NOTE DATE OF SERVICE: 05/14/17 SUBJECTIVE: Patient is stable overnight. Telemetry shows sinus bradycardia with rare nonsustained vent ricular contraction. He is feeling okay at the time. No specific cardiac complaints. There is no chest pain or chest discomfort both at rest and on exertion. Patient denies breathle ssness. There is no palpitation dizziness or lightheadedness. There is no ankle or leg swe lling. Patient can sleep on one pillow at night without difficulty breathing. CURRENT SCHEDULED MEDS: albuterol 2.5 mg Nebulization RT Q12H albuterol 2.5 mg Nebulization RT BID atorvaSTATin 10 mg Oral Nightly benzonatate 100 mg Oral TID budesonide 0.5 mg Nebulization RT BID ceFAZolin 2 g Intravenous Q8H docusate-senna 2 tablet Oral BID donepezil 5 mg Oral Nightly ferrous sulfate 325 mg Oral Daily with breakfast furosemide 40 mg Intravenous Daily hydrocortisone Topical BID metOLazone 2.5 mg Oral Every Other Day metoprolol succinate 25 mg Oral Daily IV INFUSIONS: DOPamine Stopped (05/12/17 0745) norepinephrine Stopped (05/11/17 2215) sodium chloride 0.9% 125 mL/hr at 05/14/17 0100 OBJECTIVE: PHYSICAL EXAM Latest VS: BP (!) 97/28 | Pulse 63 | Temp 37.2 C (99 F) | Resp 23 | Ht 1.676 m (5' 6") | Wt 106.7 kg (235 lb 3.7 oz) | SpO2 98% | BMI 37.97 kg/m Admit Weight: Weight: 104.3 kg (230 lb) Current weight: Weight: 106.7 kg (235 lb 3.7 oz) Vital sign ranges for last 24hrs: Input and output for last 24hrs: Temp: [36.5 C (97.7 F)-37.6 C (99.7 F)] 37.2 C (99 F) Pulse: [59-86] 63 Resp: [15-29] 23 BP: (82-110)/(26-66) 97/28 SpO2 Av.7 % Min: 91 % Max: 100 % Flow (L/min) Av.8 Min: 1 Max: 2 05/12 701 - 05/13 1900 In: 900 [P.O.:900] Out: 1033 [Urine:1030] Constitutional General appearance: Elderly male individual, well developed, well nourished, well groo med, no acute distress Cardiovascular Palp/Percussion: PMI in 5th ICS at MCL; no lifts, thrills, palp S3 or S4. Auscultation: normal S1 S2; no gallop or rub or click Murmur: Normal mechanical prosthetic heart sound at the aortic position with grade 2/6 systolic murmur. Carotid arteries: pulses 2+, symmetric, no bruits Abdominal aorta: no enlargement or bruits Pedal pulses: pulses 2+, symmetric Peripheral circulation: Trace leg pitting edema with chronic static eczema Gastrointestinal Abdomen: soft, non-tender Liver and spleen: no enlargement Mental Status/Neurological Orientation: oriented to time, place, and person Affect/Mood: no depression, anxiety, or agitation Respiratory Respiratory effort: no intercostal retractions or use of accessory muscles Auscultation: no rales, rhonchi, or wheezes LABS Recent Results (from the past 24 hour(s)) ECHO Complete Collection Time: 05/13/17 8:26 Result Value Ref Range LVEF-TTE TRANSTHORACIC ECHO 61 Iron and Transferrin Collection Time: 05/13/17 10:09 Result Value Ref Range IRON 24 (L) 50 - 160 ug/dL TRANSFERRIN 172.1 (L) 240.0 - 480.0 mg/dL TIBC 241 235 - 425 ug/dL % SATURATION 10.0 (L) 20.0 - 55.0 % Ferritin Collection Time: 05/13/17 10:09 Result Value Ref Range FERRITIN 146 24 - 366 ng/mL Haptoglobin Collection Time: 05/13/17 10:09 Result Value Ref Range Haptoglobin <10 (L) 30 - 200 mg/dL Retic Count Collection Time: 05/13/17 10:09 Result Value Ref Range Retic Count 2.3 (H) 0.5 - 1.5 % Retic Count, Absolute 0.0721 M/uL ECG: Sinus bradycardia, complete left bundle branch block. ASSESSMENT: 1. Fall/syncope with atrial fibrillation with complete left bundle branch block and wide-c omplex tachycardia suggesting A. fib with RVR/abrasion conduction A. Echocardiogram of 05/13/17 showed mild biatrial dilatation. Normal left ventricular siz e with a mild concentric left ventricular hypertrophy. Left ventricular systolic function is preserved. LVEF is 55-60%. Evidence of a paradoxical septal motion. Normal right ventricula r size and wall thickness with a mildly decreased right ventricular systolic function. Emily lly functioning mechanical bileaflet aortic valve replacement. Mildly thickened and calcifie d mitral valve with adequate opening. There is a mild mitral valve regurgitation. Mild mitral annular calcification. Moderate pulmonary hypertension with a peak systole pres sure of 65-70 mmHg. Dilated IVC without respiratory collapse suggesting fluid retention. When compared to echocardiography on 02/28/17, pulmonary hypertension is slightly worsened and patient appear ed to be fluid overloaded on this study. B. He was in his usual state of health until 05/07/17 when he was admitted after he fell t wice while walking out of a convenience store. He was found to be anemic so original though t was that he had GI bleeding causing the syncope. However, upper GI endoscopy did not reve al significant source of GI bleeding. Over the next few days, patient developed atrial fibri llation with rapid ventricular response. He was given metoprolol but ran into problems with hypotension. Amiodarone was started. However, he developed a severe bradycardia with hypo tension, requiring dopamine. Patient meets criteria for symptomatic irreversible tachycardia/bradycardia syndrome. He also has a significant hypotension with blood pressure limitation. He is a candidate for d ual-chamber permanent pacemaker implantation so that he can be put on amiodarone. Because of his age and comorbidities, he'll be treated on rate control strategy. EP study and A. fib ablation is not contraindicated due to his advanced age. Patient is stable overnight. Telemetry shows sinus bradycardia with rare nonsustained mildred tricular contraction. He is feeling okay at the time. No specific cardiac complaints. He has signs and symptoms of overt congestive heart failure. He is in a class II of [place] w [employer] functional class. There is mild fluid retention on physical exa mination. 2. Congestive heart failure with preserved ejection fraction A. He is being treated with metolazone and Aldactone. 3. Nonsustained ventricular tachycardia A. Hemodynamically stable at this time. 4. Mechanical aortic valve replacement A. On long-term Coumadin. Last INR 2 days ago was 2.0. 4. GI bleeding with anemia A. Being seen by Dr. Dunne. 5. Stage III chronic kidney disease 6. Hyperlipidemia 7. Chronic obstructive pulmonary disease 8. Obstructive sleep apnea PLAN: 1. Schedule for dual-chamber permanent pacemaker and plantation the same. The risks and missy efits of the procedure including alternative treatment were discussed with the patient in [facility]. The patient decides to proceed with the procedure. 2. Resume Coumadin after procedure today. 3. Start amiodarone oral loading today to treat A. fib with RVR. Portions of this report were transcribed using voice recognition software. Every effort wa s made to ensure accuracy; however, inadvertent computerized home health nurse errors may be pre sent. Electronically signed by: Cruzito Bird MD 05/14/2017 6:25 row, Yodit Ramsay MD - 05/13/2017 7:23 AM PDTForm atting of this note might be different from the original. [facility] HOSPITALIST PROGRESS NOTE Patient: Jacklyn Siddiqi : 1935: Age: 81 y.o. MedRec: [id number] PCP: Antonio Paulino MD Admission date: 05/07/2017 Hospital day # : 6 Physician author: Yodit Philippe MD Today: 05/13/2017 SUBJECTIVE: No chest pain, no shortness of breath. No new complaints described. Slept better. Feels better than yesterday on the whole. Nursing reports spent approximately 10 minutes with sys tolic blood pressure of approximately 88mmHg. This was not accompanied by bradycardia. The re were no fevers or chills. VITALS: Temp: 36.8 C (98.2 F), Pulse: 56, Resp: 19, BP: 97/45, SpO2 97 % on nasal cannula at fl ow rate 2 (reduced to 1)L/min Temp Min: 36.8 C (98.2 F) Max: 37.5 C (99.5 F) Weight: 104.3 kg (230 lb) I/O last 3 completed shifts: In: 728.8 [P.O.:400; I.V.:328.8] Out: 775 [Urine:775] I/O this shift: In: - Out: 95 [Urine:95] PHYSICAL EXAM: General: Anasarca, similar to presentation. Alert and interactive. Appears chronically il l. Cardiovascular: Irregularly irregular with systolic valve click. Respiratory: Left basilar crackles. Abdomen: Soft, nontender, obese. Extremities: Four-limb edema, soft and pitting. No cyanosis. Adequate perfusion. Skin: Multiple sites of superficial bruising. Nodule at site of prior venous catheter lef t upper arm. Neurological: Nonfocal DIAGNOSTIC STUDIES: Available data and images were reviewed personally. Significant results and findings are a ddressed here or in the Assessment and Plan. TTE procedure: ECHO Complete. Procedure date Date: 02/28/2017Start: 04:08 PM Technical Quality: Adequate visualizationStudy Location: Portable Indications: Aortic Valve Disorder 424.1/I35.9. Patient Status: Routine Height: 66 inchesWeight: 206 poundsBSA: 2.03 m^2BMI: 33.25 kg/m^2 Rhythm: Normal Sinus Rhythm Conclusions Summary 1. Mild biatrial dilatation. 2. Normal left ventricular size with a mild concentric left ventricular hypertrophy. Left ventricular systolic function is preserved. LVEF is 70%. 3. Normal right ventricular cavity with normal wall thickness and a mildly reduced right ventricular systolic function. 4. Normal functioning mechanical aortic valve replacement. 5. Mildly thickened and calcified mitral valve with adequate opening. 6. Mild to moderate mitral annular calcification. 7. Mild pulmonary hypertension with a peak systolic pressure of 45-50 mmHg. 8. Normal IVC with normal respiratory collapse. Signature Electronically signed by CRUZITO BIRD MD(Interpreting physician) on Recent Results (from the past 24 hour(s)) ECG 12 lead Result Value Ref Range VENTRICULAR RATE EKG 82 BPM ATRIAL RATE 102 BPM P-R INTERVAL 126 ms QRS DURATION 138 ms Q-T INTERVAL 418 ms Q-T INTERVAL (CORRECTED) 488 ms P WAVE AXIS 78 degrees QRS AXIS -25 degrees T AXIS 158 degrees INTERPRETATION TEXT Sinus tachycardia with 2nd degree AV block (Mobitz II) with premature supraventricular co mplexes Nonspecific intraventricular block Cannot rule out Anterior infarct (cited on or before 10-MAY-2017) Marked T wave abnormality, consider anterolateral ischemia Abnormal ECG When compared with ECG of 10-MAY-2017 18:37, sinus tachycardia now present T wave inversion no longer evident in Anterior leads QT has lengthened Confirmed by BINU MACK MD ([id number]) on 05/13/2017 6:24:02 AM Culture, Blood Result Value Ref Range Culture No growth: Monitored continually by instrument for 5 days Protime INR Result Value Ref Range PROTIME 23.6 (H) 11.3 - 13.9 seconds INR 2.04 (H) 0.90 - 1.10 Basic Metabolic Panel Result Value Ref Range NA 137 136 - 149 mmol/L K 4.5 3.5 - 5.1 mmol/L CL 108 98 - 109 mmol/L CO2 25 24 - 31 mmol/L ANION GAP 4 3 - 16 mmol/L GLUCOSE 113 (H) 70 - 109 mg/dL BUN 37 (H) 7 - 18 mg/dL Creatinine, Serum/Plasma 1.82 (H) 0.60 - 1.30 mg/dL eGFR if not 36 (L) >=60 mL/min/1.73m2 CALCIUM 8.4 8.3 - 10.5 mg/dL BUN/CREA 20.3 CBC no Differential Result Value Ref Range WBC 5.5 4.0 - 11.0 K/uL RBC 2.97 (L) 4.30 - 5.70 M/uL Hgb 8.9 (L) 13.5 - 18.0 g/dL Hct 27.5 (L) 40.0 - 51.0 % MCV 92.4 83.0 - 101.0 fL MCH 29.9 28.0 - 35.0 pg MCHC 32.3 32.0 - 36.0 g/dL RDW-CV 16.7 (H) <15.0 % Platelet Count 129 (L) 140 - 440 K/uL MPV 7.9 fL Basic Metabolic Panel Result Value Ref Range NA 140 136 - 149 mmol/L K 4.5 3.5 - 5.1 mmol/L CL 107 98 - 109 mmol/L CO2 28 24 - 31 mmol/L ANION GAP 5 3 - 16 mmol/L GLUCOSE 93 70 - 109 mg/dL BUN 40 (H) 7 - 18 mg/dL Creatinine, Serum/Plasma 1.67 (H) 0.60 - 1.30 mg/dL eGFR if not 39 (L) >=60 mL/min/1.73m2 CALCIUM 8.4 8.3 - 10.5 mg/dL BUN/CREA 24.0 CBC no Differential Result Value Ref Range WBC 7.1 4.0 - 11.0 K/uL RBC 3.13 (L) 4.30 - 5.70 M/uL Hgb 9.3 (L) 13.5 - 18.0 g/dL Hct 29.1 (L) 40.0 - 51.0 % MCV 92.8 83.0 - 101.0 fL MCH 29.7 28.0 - 35.0 pg MCHC 32.0 32.0 - 36.0 g/dL RDW-CV 17.1 (H) <15.0 % Platelet Count 126 (L) 140 - 440 K/uL MPV 8.2 fL Differential, Blood, Manual Result Value Ref Range % Seg Neutrophils 49.0 (L) 50.0 - 70.0 % % Lymphocytes 38.0 20.0 - 40.0 % % Monocytes 10.0 (H) 1.0 - 6.0 % % Bands 3.0 0.0 - 5.0 % Absolute Seg Neutrophils 3.48 1.80 - 7.70 K/uL Absolute Lymphocytes 2.70 1.00 - 3.40 K/uL Absolute Monocytes 0.71 0.00 - 0.80 K/uL Absolute Bands 0.21 0.00 - 1.50 K/uL Total Counted 100 WBC MORPHOLOGY Normal PLT MORPHOLOGY Normal HYPOCHROMIA Slight (A) (none) Xr Chest Pa Or Ap Result Date: 05/12/2017 CLINICAL INFORMATION: Picc line placement verification. COMPARISON: 05/11/2017 and 05/07/2017 . FINDINGS: Frontal views of the chest. Median sternotomy and valvuloplasty changes. Left si ded peripheral vascular catheter with the at the level of the midhumerus. Unchanged cardiome edmond. Unchanged aeration of the lungs compared with prior with persistent left pleural effus ion and basilar airspace opacities. Unchanged findings suggestive of minimal to mild pulmona ry edema. IMPRESSION - Unchanged aeration of the lungs with left pleural effusion and basila r airspace opacities and probable minimal to mild pulmonary edema. Left sided vascular tayler ter with the tip at the level of the midhumerus. Dictated and Signed by: Jadon White MD Electronically signed: 05/12/2017 2:33 PM Xr Chest Ap Portable Result Date: 05/11/2017 CLINICAL INFORMATION: New hypoxemia and reduced breath sounds and crackles left lung base.. COMPARISON: 05/07/2017. FINDINGS: Single frontal portable chest radiograph. Median sternotom y and arthroplasty changes. Multiple lead wires overlie the [id number]. Overall unchanged aeration of the lungs with stable left pleural effusion and left basilar opacities, likely atelectasis. No pneumothorax. There is slight prominence of the interstitial lung markings i n a perihilar and lower lobe predominant distribution suggesting component of pulmonary jailyn a. Unchanged cardiomegaly and prominent aortic vascular calcifications. IMPRESSION - Overall unchanged aeration of the lungs from prior with persistent left pleural effusion and left b asilar opacities, likely compressive atelectasis. Possible minimal to mild pulmonary edema. Dictated and Signed by: Jadon White MD Electronically signed: 05/11/2017 1:37 PM Current Facility-Administered Medications: albuterol 2.5 mg Nebulization RT Q6H albuterol 2.5 mg Nebulization RT Q4H PRN artificial tears 1 drop Both Eyes Q4H PRN atorvaSTATin 10 mg Oral Nightly benzonatate 100 mg Oral TID budesonide 0.5 mg Nebulization RT BID docusate-senna 2 tablet Oral BID donepezil 5 mg Oral Nightly DOPamine 2-20 mcg/kg/min Intravenous Titrated fenofibrate 54 mg Oral Daily HYDROcodone-acetaminophen 1 tablet Oral TID PRN hydrocortisone Topical BID lisinopril 5 mg Oral Daily metOLazone 2.5 mg Oral Daily norepinephrine 1-30 mcg/min Intravenous Titrated ondansetron 4 mg Intravenous Q6H PRN spironolactone 12.5 mg Oral Daily ASSESSMENT and PLAN: Active Hospital Problems Diagnosis *Atrial fibrillation with RVR Rhythm is variable. Sinus and sinus bradycardia (no sym ptomatic bradycardia observed except when patient on amiodarone). Frequent episodes of brie fly accelerated rate without change in underlying wide complexes (patient has bifascicular b lock) - either VT or AF with aberrant conduction. In the first few days of this hospital st ay, episodes were observed when the patient was up and about of sustained heart rates of 180 -200 associated with lightheadedness. These appeared to be AF with aberrant conduction. Co uld the patient have true tachy-richard syndrome? Echocardiogram from 02/2017 shows normal EF 70%, mild to moderate pulmonary hypertension and normally functioning prosthetic aortic valv e. CRUZITO (obstructive sleep apnea) Patient was tested (positive) at the [facility], w as provided with CPAP, slept "all right" without it and gave it back to them. He is observe d to have brief desaturations here. Will perform overnight sleep apnea check as nursing sta ff believes desats are primarily due to the difficulty of keeping the finger oximeter in cabrera ce and respiratory believes he's having significant desaturation. Acute on chronic diastolic (congestive) heart failure Chest x-ray shows consistent sma ll left pleural effusion and slight vascular congestion throughout this hospital stay and th is year. Exam confirms. Oxygen saturation 100% on 2L when awake and requires oxygen when a sleep. B-CARD DOFFER 488 on arrival. Echo 02/2017 showed EF 70%; presumed diastolic dysfunction. Tr eatment complicated by moderate renal insufficiency. Also said to have cirrhosis but it castro s not appear to e severe (ammonia normal, Na normal, albumin 3.0-3.5). Also has chronic ane sammi without acute GI bleeding during this admission; was admitted 02/2017 with marked elevati on in INR. Will lower dose of ACEI and resume metoprolol. Stop spironolactone. Metolazon e three times a week. Monitor potassium (currently 4.5) Venous stasis of both lower extremities Appears to have anasarca due heart, lung and ki dney disease. Ulcers left calf responding to lymphedema wraps. Anemia Slow downward trend in Hb. During this admission, when INR was low (prosthetic valve in place), bridging lovenox at full dose was instituted and patient bled at skin from every minor insult. However, NO GI BLEEDING WAS OBSERVED. May have slow GI leak. Certainl y has some blood loss due to phlebotomy. Renal disease probably not advanced enough to sign ificantly affect EPO production. May be lysing cells at site of valve (RDW is quite high). Will check iron, ferritin, reticulocyte count, haptoglobin, B12. Begin iron replacement . Patient is medically complex and ill and I do not think a colonoscopy is safe for hi m nor would it yield much. Diastolic CHF CAD (coronary artery disease) CABG DON to LAD 2004. Normal Troponin at this admission . No chest pain. No recent stress test results. Pulmonary HTN Mild to severe by echo [id number]. Never smoked tobacco and no documente d COPD. History of marked obesity likely etiologic agent. Promotes anasarca. Dementia Very mild at best. Provides fairly clear history for recent, intermediate and remote events though he often tries to defer to his son. Liver cirrhosis Prior drinking. None now. Appears to be mild (normal ammonia, no ence phalopathy, albumin 3-3.5, normal transaminases and bilirubin) H/O aortic valve replacement 2004 with CABG. Properly seated and functioning by echo Hypertension Borderline blood pressure on current medications. Will lower dose of ACEI and stop spironolactone. Continue furosemide and metolazone and resume metoprolol 25 mg da isak. - Chronic kidney disease, stage 3. Cr varies from 1.2 to 2.7 (had DARRELL in February of 2017). During this admission 1.2 to 1.86, which seems to be within his usual range. Cannot really appreciate much progression in renal dysfunction over the past few years. Suspect much of this variability has to do with iatrogenic changes in volume and hemodynamic compromise but not true intrinsic renal disease. Renal sonogram ruled out obstructive nephropathy in February 19 and documented mildly diminished resistive indices bilaterally (0.86). - Syncope. Patient was admitted due to two episode of syncope with associated falls, on e occurring at the [facility] the day of admission and one occurring when he was at a store with his son. These episodes are not fully explained. The patient takes Trazodone for sle ep at night, which is associated with dizziness and orthostasis. He has anemia but no acute GI blood or volume loss. Certainly patient's intravascular volume is put under pressure by powerful diuretics we are using to attempt to overcome anasarca occurring as a result of pu lmonary hypertension, congestive heart failure, renal and liver disease. May have been asso ciated with rhythm disturbances, particularly AF with RVR since we have seen sustained heart rates with activity of 180-[address] Nettles has kindly agreed to consider this possibly. Resolved Hospital Problems Diagnosis Date Noted Date Resolved No resolved problems to display. Total time of approximately 25 minutes was spent with the patient and/or patient's family, and/or on the patient's floor/unit, of which more than 50% was spent counseling and/or coord ination the patient's care as outlined above. Yodit Philippe 05/13/2017 7:[address] [facility] row, Yodit Ramsay MD - 0 05/12/2017 10:27 AM PDT [facility] HOSPITALIST PROGRESS NOTE Patient: Jacklyn Siddiqi : 1935: Age: 81 y.o. MedRec: [id number] PCP: Antonio Paulino MD Admission date: 05/07/2017 Hospital day # : 5 Physician author: Yodit Philippe MD Today: 05/12/2017 SUBJECTIVE: Left arm at site of long proximal peripheral IV is red and swollen. Multiple sites of cameron nful bruising forearms and shoulders. Bowels moving - no gross melena or hematochezia. Moni rtness of breath is similar to usual. Has a hard time with painful transfers when people gr ab his wrists. No cough. No chest pain. No palpitations. No nausea/vomiting. Eating 100 % of his diet. VITALS: Temp: 37.3 C (99.1 F), Pulse: 77, Resp: 23, BP: 108/40, SpO2 96 % on nasal cannula at f low rate 2L/min Temp Min: 37 C (98.6 F) Max: 37.6 C (99.7 F) Weight: 104.3 kg (230 lb) I/O last 3 completed shifts: In: 1073.8 [P.O.:250; I.V.:625.8; Other:198] Out: 400 [Urine:400] No intake/output data recorded. PHYSICAL EXAM: General: Looks comfortable but bruised. Cardiovascular: Irregularly irregular with systolic valve click - unchanged. Respiratory: Dependent rales left worse than right. Abdomen: Soft, bowel sounds active, no masses Extremities: Legs wrapped in compression dressings for chronic wounds. Pulses adequate an d capillary refill good. Skin: Bruising and skin tears both forearms. Left upper arm at site of IV pink and warm. Neurological: Nonfocal. DIAGNOSTIC STUDIES: Available data and images were reviewed personally. Significant results and findings are a ddressed here or in the Assessment and Plan. Recent Results (from the past 24 hour(s)) CBC no Differential Result Value Ref Range WBC 9.6 4.0 - 11.0 K/uL RBC 3.39 (L) 4.30 - 5.70 M/uL Hgb 10.0 (L) 13.5 - 18.0 g/dL Hct 31.1 (L) 40.0 - 51.0 % MCV 91.6 83.0 - 101.0 fL MCH 29.4 28.0 - 35.0 pg MCHC 32.2 32.0 - 36.0 g/dL RDW-CV 16.8 (H) <15.0 % Platelet Count 151 140 - 440 K/uL MPV 7.7 fL Creatinine Result Value Ref Range Creatinine, Serum/Plasma 1.61 (H) 0.60 - 1.30 mg/dL eGFR if not 41 (L) >=60 mL/min/1.73m2 ECG 12 lead Result Value Ref Range INTERPRETATION TEXT Not Confirmed Xr Chest Ap Portable Result Date: 05/11/2017 CLINICAL INFORMATION: New hypoxemia and reduced breath sounds and crackles left lung base.. COMPARISON: 05/07/2017. FINDINGS: Single frontal portable chest radiograph. Median sternotom y and arthroplasty changes. Multiple lead wires overlie the [id number]. Overall unchanged aeration of the lungs with stable left pleural effusion and left basilar opacities, likely atelectasis. No pneumothorax. There is slight prominence of the interstitial lung markings i n a perihilar and lower lobe predominant distribution suggesting component of pulmonary jailyn a. Unchanged cardiomegaly and prominent aortic vascular calcifications. IMPRESSION - Overall unchanged aeration of the lungs from prior with persistent left pleural effusion and left b asilar opacities, likely compressive atelectasis. Possible minimal to mild pulmonary edema. Dictated and Signed by: Jadon White MD Electronically signed: 05/11/2017 1:37 PM Current Facility-Administered Medications: albuterol 2.5 mg Nebulization RT Q6H albuterol 2.5 mg Nebulization RT Q4H PRN artificial tears 1 drop Both Eyes Q4H PRN atorvaSTATin 10 mg Oral Nightly benzonatate 100 mg Oral TID budesonide 0.5 mg Nebulization RT BID docusate-senna 2 tablet Oral BID donepezil 5 mg Oral Nightly DOPamine 2-20 mcg/kg/min Intravenous Titrated fenofibrate 54 mg Oral Daily HYDROcodone-acetaminophen 1 tablet Oral TID PRN hydrocortisone Topical BID lisinopril 5 mg Oral Daily metOLazone 2.5 mg Oral Daily norepinephrine 1-30 mcg/min Intravenous Titrated ondansetron 4 mg Intravenous Q6H PRN spironolactone 12.5 mg Oral Daily ASSESSMENT and PLAN: Active Hospital Problems Diagnosis *Atrial fibrillation with RVR Rhythm is variable. Possible underlying tachy-richard syn drome. On amiodarone developed profound symptomatic bradycardia and required dopamine for 3 6 hours. Now in SR with sinus arrhythmia and frequent ectopy with LBBB pattern. P wave castro s not appear changed to my eye. Patient says he has been evaluated for pacing and was told it was not needed; however, I do not have a good explanation for his two episodes of syncope that precipitated this admission and he had AF with heart rates of 108 at rest and 200 with exertion that did not respond to 50mg metoprolol. Will seek cardiology opinion about pacin g and AV rosales ablation. CRUZITO (obstructive sleep apnea) Acute on chronic diastolic (congestive) heart failure Remains mildly decompensated. R enal function limiting diuresis. Venous stasis of both lower extremities Anasarca due to combined liver, heart and kidne y disease with chronic ulcers that are improving with compression wraps. Anemia On warfarin. No evidence of GI bleeding here despite overlap of lovenox and war farin to protect valve from clot. Hb is stable but low. Iron is deficient but may not be e nough to correct this chronic anemia. Diastolic CHF CAD (coronary artery disease) No evidence of acute coronary syndrome. Pulmonary HTN Dementia Liver cirrhosis Reported but I have not made an effort to stage same. H/O aortic valve replacement and Enterococcal endocarditis in 2008 Inflamed IV site. W ill remove and culture tip and send a set of blood cultures. Hypertension Controlled. Resolved Hospital Problems Diagnosis Date Noted Date Resolved No resolved problems to display. Total time of approximately 25 minutes was spent with the patient and/or patient's family, and/or on the patient's floor/unit, of which more than 50% was spent counseling and/or coord ination the patient's care as outlined above. Yodit Philippe 05/12/2017 10:[address] [facility] row, Yodit Ramsay MD - 0 05/11/2017 2:21 PM PDT [facility] HOSPITALIST PROGRESS NOTE Patient: Jacklyn Siddiqi : 1935: Age: 81 y.o. MedRec: [id number] PCP: Antonio Paulino MD Admission date: 05/07/2017 Hospital day # : 4 Physician author: Yodit Philippe MD Today: 05/11/2017 SUBJECTIVE: No chest pain. Baseline shortness of breath. Complains of bleeding at the site of loss of skin integrity. Nupur to transfer to chair for breakfast and did not feel dizzy. Slept poo rly; requests Trazodone. No melena or hematochezia despite ease of bleeding. VITALS: Temp: 37.2 C (99 F), Pulse: 72, Resp: 19, BP: 126/52, SpO2 99 % on room air at flow rat e 3L/min Temp Min: 36 C (96.8 F) Max: 37.3 C (99.1 F) Weight: 104.3 kg (230 lb) I/O last 3 completed shifts: In: 642 [P.O.:500; I.V.:142] Out: 925 [Urine:925] I/O this shift: In: 155 [I.V.:155] Out: 170 [Urine:170] PHYSICAL EXAM: General: Appears comfortable Cardiovascular: Irregular with rate 70-80 on dopamine 5 mcg/min. [place] systolic valve cli ck at RSB. Respiratory: Diminished sounds and rales left lung base Abdomen: Obese, soft, nontender. Extremities: Anasarca with wraps on both calves to allow ulcers to heal. Skin: Multiple sites of minor skin injury and bleeding from pulling off adhered leads and tape. Neurological: No focal deficits. DIAGNOSTIC STUDIES: Available data and images were reviewed personally. Significant results and findings are a ddressed here or in the Assessment and Plan. Recent Results (from the past 24 hour(s)) Protime INR Result Value Ref Range PROTIME 23.9 (H) 11.3 - 13.9 seconds INR 2.07 (H) 0.90 - 1.10 PTT Result Value Ref Range PTT 42 (H) 22 - 36 seconds Basic Metabolic Panel Result Value Ref Range NA 139 136 - 149 mmol/L K 4.3 3.5 - 5.1 mmol/L CL 108 98 - 109 mmol/L CO2 26 24 - 31 mmol/L ANION GAP 5 3 - 16 mmol/L GLUCOSE 119 (H) 70 - 109 mg/dL BUN 27 (H) 7 - 18 mg/dL Creatinine, Serum/Plasma 1.28 0.60 - 1.30 mg/dL eGFR if not 54 (L) >=60 mL/min/1.73m2 CALCIUM 8.8 8.3 - 10.5 mg/dL BUN/CREA 21.1 Magnesium Result Value Ref Range MG 2.2 1.8 - 2.5 mg/dL CBC no Differential Result Value Ref Range WBC 12.3 (H) 4.0 - 11.0 K/uL RBC 3.58 (L) 4.30 - 5.70 M/uL Hgb 10.5 (L) 13.5 - 18.0 g/dL Hct 32.8 (L) 40.0 - 51.0 % MCV 91.7 83.0 - 101.0 fL MCH 29.3 28.0 - 35.0 pg MCHC 31.9 (L) 32.0 - 36.0 g/dL RDW-CV 16.8 (H) <15.0 % Platelet Count 183 140 - 440 K/uL MPV 8.0 fL Differential, Blood, Manual Result Value Ref Range % Seg Neutrophils 25.0 (L) 50.0 - 70.0 % % Lymphocytes 64.0 (H) 20.0 - 40.0 % % Monocytes 3.0 1.0 - 6.0 % % Eosinophils 5.0 1.0 - 5.0 % % Basophils 1.0 0.0 - 1.0 % % Bands 2.0 0.0 - 5.0 % Absolute Seg Neutrophils 3.08 1.80 - 7.70 K/uL Absolute Lymphocytes 7.87 (H) 1.00 - 3.40 K/uL Absolute Monocytes 0.37 0.00 - 0.80 K/uL Absolute Eosinophils 0.62 (H) 0.00 - 0.50 K/uL Absolute Basophils 0.12 (H) 0.00 - 0.10 K/uL Absolute Bands 0.25 0.00 - 1.50 K/uL Total Counted 100 Platelet Estimate Adequate Adequate HYPOCHROMIA Slight (A) (none) POLYCHROMASIA Slight (A) (none) Anisocytosis Slight (A) (none) Variant Lymphocytes Moderate (A) (none) Xr Chest Ap Portable Result Date: 05/11/2017 CLINICAL INFORMATION: New hypoxemia and reduced breath sounds and crackles left lung base.. COMPARISON: 05/07/2017. FINDINGS: Single frontal portable chest radiograph. Median sternotom y and arthroplasty changes. Multiple lead wires overlie the [id number]. Overall unchanged aeration of the lungs with stable left pleural effusion and left basilar opacities, likely atelectasis. No pneumothorax. There is slight prominence of the interstitial lung markings i n a perihilar and lower lobe predominant distribution suggesting component of pulmonary jailyn a. Unchanged cardiomegaly and prominent aortic vascular calcifications. IMPRESSION - Overall unchanged aeration of the lungs from prior with persistent left pleural effusion and left b asilar opacities, likely compressive atelectasis. Possible minimal to mild pulmonary edema. Dictated and Signed by: Jadon White MD Electronically signed: 05/11/2017 1:37 PM Current Facility-Administered Medications: albuterol 2.5 mg Nebulization RT Q6H albuterol 2.5 mg Nebulization RT Q4H PRN artificial tears 1 drop Both Eyes Q4H PRN atorvaSTATin 10 mg Oral Nightly benzonatate 100 mg Oral TID budesonide 0.5 mg Nebulization RT BID docusate-senna 2 tablet Oral BID donepezil 5 mg Oral Nightly DOPamine 2-20 mcg/kg/min Intravenous Titrated fenofibrate 54 mg Oral Daily HYDROcodone-acetaminophen 1 tablet Oral TID PRN hydrocortisone Topical BID lisinopril 5 mg Oral Daily metOLazone 2.5 mg Oral Daily norepinephrine 1-30 mcg/min Intravenous Titrated ondansetron 4 mg Intravenous Q6H PRN spironolactone 12.5 mg Oral Daily ASSESSMENT and PLAN: Active Hospital Problems Diagnosis *Atrial fibrillation with RVR Tried amiodarone to prevent extreme tachycardia with exe rtion; caused symptomatic bradycardia that has required now 19 hours of dopamine infusion. Heart rate is consistently 70-80. Patient's symptoms have resolved. Will taper dopamine as tolerated. Will then consider resumption of beta birdie. We will not be able to further address these tachyarrhythmias unless some intervention to prevent bradyarrhythmias is possi ble. CRZUITO (obstructive sleep apnea) Acute on chronic diastolic (congestive) heart failure Receiving regular furosemide, me tolazone, spironolactone. Anarsarcic. Hard to piece out how much swelling is due to heart disease. Lungs are relatively clear. Venous stasis of both lower extremities Anemia Diastolic CHF CAD (coronary artery disease) No evidence of acute coronary event despite extreme richard cardia. Pulmonary HTN Dementia Mild - no intervention. Liver cirrhosis H/O aortic valve replacement Hypertension - Chronic anemia due to possible chronic slow blood loss, possible red cell compromise fro m prosthetic valve as well as mild renal disease. There has been no evidence of significant GI bleeding. EGD was negative. Patient for colonoscopy once stabilized. - Syncope. Etiology unclear. No acute blood or volume loss. May be due to exertional ex treme tachycardia (200bpm) but cardiology doubts this etiology. Have not seem bradycardia o r pauses when amiodarone not in use. No evidence of sepsis. Will attempt to mobilize with P.T. And observe. Resolved Hospital Problems Diagnosis Date Noted Date Resolved No resolved problems to display. Total time of approximately 25 minutes was spent with the patient and/or patient's family, and/or on the patient's floor/unit, of which more than 50% was spent counseling and/or coord ination the patient's care as outlined above. Yodit Philippe 05/11/2017 14:[address] [facility] Bernard R N - 05/10/2017 7:34 PM PDTPt had sudden onset of symptomatic bradycardia at 1827. Amiodaron e drip stopped. Dr. Philippe notified and pt given Atropine 0.5 mg, and after no effects on HR noted, second dose of 0.5 mg was given. Pacer pads placed on pt (in A/P position). Attempt ed to pace pt at 60 mA, but pt unable to tolerate it. No capture at 60 mA. Levophed and th en Dopamine drips started with increase in HR and BP. Report given to SAMEER Jimenes.Electronicall y signed by Whitney Correa RN at 05/10/2017 7:43 PM PDTCrow, Yodit Ramsay MD - 05/10/2017 7:03 PM PDT HOSPITALIST progress NOTE [facility] 05/10/2017 Rounding Physician: Yodit Philippe MD Patient Name: Jacklyn Siddiqi : 1935 Medical Record: [id number] Primary Hospital Problem: Atrial fibrillation with RVR (HCC) Subjective: Patient continued to experience sustained high heart rates of 180-200 with act ivity. Discussed with cardiology. Recommended load with amiodarone. After bolus and half of first infusion, patient experienced severe bradycardia with dizziness and shortness of br eath, sweating and slight nausea. Amiodarone stopped. Atropine 1 mg injected with very tra nsient effect. Levophed at 4 mcg/min gave no change. Patient complains of dry mouth and di zziness. He denies chest pain. Mild shortness of breath - about his usual. He is on full- dose enoxaparin because he has an AoVR and his INR was subtherapeutic on warfarin. OBJECTIVE DATA VITAL SIGNS: BP 113/59 | Pulse 106 | Temp 36.7 C (98.1 F) (Oral) | Resp 24 | Ht 1.6 76 m (5' 6") | Wt 105.4 kg (232 lb 5.8 oz) | SpO2 95% | BMI 37.50 kg/m Vital sign ranges for last 24hrs: Input and output for last 24hrs: Temp: [35.7 C (96.3 F)-36.7 C (98.1 F)] 36.7 C (98.1 F) Pulse: [106-117] 106 Resp: [14-27] 24 BP: (106-131)/(48-65) 113/59 SpO2 Av.1 % Min: 91 % Max: 100 % Flow (L/min) Av.4 Min: 1 Max: 3 05/09 0701 - 05/10 1900 In: 450 [P.O.:450] Out: 1525 [Urine:1525] Admit Weight: Weight: 104.3 kg (230 lb) Current weight: Weight: 105.4 kg (232 lb 5.8 oz) Intake/Output Summary (Last 24 hours) at 05/10/171902 Last data filed at 05/10/17 1747 Gross per 24 hour Intake 350 ml Output 925 ml Net -575 ml MEDICATIONS: Scheduled Meds: albuterol 2.5 mg Nebulization RT Q6H atorvaSTATin 10 mg Oral Nightly atropine 1 mg Intravenous Once benzonatate 100 mg Oral TID budesonide 0.5 mg Nebulization RT BID docusate-senna 2 tablet Oral BID donepezil 5 mg Oral Nightly fenofibrate 54 mg Oral Daily hydrocortisone Topical BID lisinopril 5 mg Oral Daily metOLazone 2.5 mg Oral Daily norepinephrine in NS spironolactone 12.5 mg Oral Daily Continuous Infusions: DOPamine infusion (other concentrations & diluents) DOPamine norepinephrine PRN Meds:albuterol, artificial tears, HYDROcodone-acetaminophen PHYSICAL EXAMINATION: GENERAL: Pleasant, in moderate distress. HEENT: Conjunctivae and lids are normal in appearance. NECK: Supple. No JVD. CHEST: Respiratory effort is normal. Dependent crackles left worse than right. CARDIAC: Irregular rhythm, slow, occasionally very slow (rate 26-68). No murmurs appreci ated. ABDOMEN: Soft, non-tender, nondistended with normal, active bowel sounds. EXTREMITIES: Gross edema in all extremities and flanks. SKIN: Bleeding from minor injuries. NEUROLOGIC: Alert and oriented to time, place and person. Normal affect and mood. No foc al deficits. DIAGNOSTICS: Labs: Lab Results Component Value Date CREA 1.56 (H) 05/08/2017 BUN 32 (H) 05/08/2017 NA 144 05/08/2017 K 4.5 05/08/2017 CL 114 (H) 05/08/2017 CO2 25 05/08/2017 Lab Results Component Value Date WBC 5.3 05/08/2017 HGB 9.3 (L) 05/08/2017 HCT 29.9 (L) 05/08/2017 MCV 94.7 05/08/2017 PLT 135 (L) 05/08/2017 Lab Results Component Value Date TROPONIN 0.03 05/07/2017 Lab Results Component Value Date INR 1.71 (H) 05/09/2017 INR 1.65 (H) 05/08/2017 INR 1.43 (H) 05/07/2017 PROTIME 20.5 (H) 05/09/2017 PROTIME 19.9 (H) 05/08/2017 PROTIME 17.8 (H) 05/07/2017 ASSESSMENT AND PLAN 1) Sick sinus syndrome with ischemic heart disease. Heart rate remains 108-200 on 50 mg me toprolol a day. Amiodarone very poorly tolerated and now stopped. Oxygenating well. Levop hed in place. Dopamine ordered. ECG does not suggest acute ischemia. Will check electroly michela, PT/PTT, CBC. 2) AoVR with low INR. With the addition of lovenox, bleeding from skin with slight injurie s. Suspect platelet dysfunction. No GI bleeding noted. Stop lovenox and hold warfarin for now. 3) History of cirrhosis, moderate renal insufficiency and CHF secondary to diastolic dysfun ction with anasarca. Not much changed. 4) Chronic lower extremity venous stasis ulcers. Wraps in place and wounds are progressing adequately. Portions of this report were transcribed using voice recognition software. Every effort was made to ensure accuracy; however, inadvertent computerized home health nurse errors and typos m ay be present Electronically signed by: Yodit Philippe MD, DATE/TIME: 05/10/2017 19:03 [facility] HOSPITALIST TEAM ania Cervantes RN - 05/10/2017 4:33 [facility] resting. Yodit Olmos MD - 05/10/2017 3:59 PM PDTForma tting of this note might be different from the original. [facility] HOSPITALIST PROGRESS NOTE Patient: Jacklyn Siddiqi : 1935: Age: 81 y.o. MedRec: [id number] PCP: Antonio Paulino MD Admission date: 05/07/2017 Hospital day # : 3 Physician author: Yodit Philippe MD Today: 05/10/2017 SUBJECTIVE: No chest pain, no shortness of breath. Complains of urgent need to toilet. Tolerating sit ting up in a chair well. Denies any particular pain today. Note with activity, heart rate rises to 200 from time to time. VITALS: Temp: 36.7 C (98.1 F), Pulse: 106, Resp: 24, BP: 113/59, SpO2 95 % on room air at flow rate 3L/min Temp Min: 35.7 C (96.3 F) Max: 36.7 C (98.1 F) Weight: 104.3 kg (230 lb) I/O last 3 completed shifts: In: 200 [P.O.:200] Out: 2575 [Urine:2575] I/O this shift: In: 150 [P.O.:150] Out: 250 [Urine:250] PHYSICAL EXAM: General: Appears comfortable, stated age. Cardiovascular: Irregular, tachycardic with systolic murmur. Respiratory: Scattered wheezing and dependent rales. Abdomen: Obese, soft, nontender. Extremities: Massive edema throughout, including flanks. No clubbing or cyanosis. Pulses diminished bilaterally. Skin: Open sores both swollen lower extremities. Neurological: Nonfocal. DIAGNOSTIC STUDIES: Available data and images were reviewed personally. Significant results and findings are a ddressed here or in the Assessment and Plan. Recent Results (from the past 24 hour(s)) ECG 12 lead Result Value Ref Range VENTRICULAR RATE EKG 111 BPM ATRIAL RATE 111 BPM P-R INTERVAL 176 ms QRS DURATION 136 ms Q-T INTERVAL 368 ms Q-T INTERVAL (CORRECTED) 500 ms QRS AXIS -40 degrees T AXIS 157 degrees INTERPRETATION TEXT Sinus tachycardia with premature atrial complexes with aberrant conduction Left axis deviation Left bundle branch block T wave abnormality, consider inferolateral ischemia Abnormal ECG When compared with ECG of 08-MAY-2017 12:29, Sinus rhythm has replaced Atrial fibrillation Confirmed by FREDERICK CHARLTON, BINU ([id number]) on 05/10/2017 5:50:22 AM No results found. Current Facility-Administered Medications: albuterol 2.5 mg Nebulization RT Q6H albuterol 2.5 mg Nebulization RT Q4H PRN amiodarone 1 mg/min Intravenous Titrated Followed by amiodarone 0.5 mg/min Intravenous Titrated artificial tears 1 drop Both Eyes Q4H PRN atorvaSTATin 10 mg Oral Nightly benzonatate 100 mg Oral TID budesonide 0.5 mg Nebulization RT BID docusate-senna 2 tablet Oral BID donepezil 5 mg Oral Nightly enoxaparin 1 mg/kg Subcutaneous 2 times per day fenofibrate 54 mg Oral Daily HYDROcodone-acetaminophen 1 tablet Oral TID PRN hydrocortisone Topical BID lisinopril 5 mg Oral Daily metOLazone 2.5 mg Oral Daily metoprolol succinate 50 mg Oral Daily spironolactone 12.5 mg Oral Daily warfarin 3 mg Oral Q7 Days warfarin 4 mg Oral Daily - Warfarin ASSESSMENT and PLAN: Active Hospital Problems Diagnosis *Atrial fibrillation with RVR - intermittent. Discussed with cardiology and have decid ed to try amiodarone to stabilize at least temporarily to allow improved diuresis and examin ation of colon. Will load intravenously. If it works, might benefit from 3 weeks of oral t herapy or so. Meanwhile, continue metoprolol. Anticoagulated but subtherapeutic for AoVR. Titrating warfarin. CRUZITO (obstructive sleep apnea) - using C-PAP and seems to be doing well. Acute on chronic diastolic (congestive) heart failure along with cirrhosis and renal di sease has led to intractable anasarca. He is now on spironolactone and has been on metolazo ne and furosemide for some time. Weight daily, limit salt and water. Venous stasis of both lower extremities Anemia - gradually progressive fall in Hb, heme positive stool, no response to iron. W ill require colonoscopy when stable. Diastolic CHF CAD (coronary artery disease) Pulmonary HTN - adds to difficulty managing body water. Dementia - mild. 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 H/O aortic valve replacement - adjusting anticoagulants. Last echo suggested valve fun ctioning well. Hypertension Resolved Hospital Problems Diagnosis Date Noted Date Resolved No resolved problems to display. Total time of approximately 25 minutes was spent with the patient and/or patient's family, and/or on the patient's floor/unit, of which more than 50% was spent counseling and/or coord ination the patient's care as outlined above. Yodit Philippe 05/10/2017 15:[address] [facility] Tania House RN - 05/10/2017 2:15 PM PDTPatient up to commode void 100, bladder scan done 50mls post void. As sisted to bed, resting, no complaints.Electronically signed by Tania Cervantes RN at 017 2:16 PM Tania House RN - 05/10/2017 12:44 PM PDTPatient up in chair for the jeffery dejesus well. Has multiple areas of skin tears left arm with dressing on it and no drainag e on dressing . R elbow, dressing and no drainage. Chest small area where the Defib pads wer e Dressing applied to area. Tolerating meals, ambulates with walker to commode and one pers on assist. hospital monitor shows Sinus Tach with BBB. Patient on RA with sats 100%Electroni cece signed by Tania Cervantes RN at 05/10/2017 12:54 PM PDTCrow, Yodit Ramsay MD - 05/09/2017 8:11 PM PDT [facility] HOSPITALIST PROGRESS NOTE Patient: Jacklyn Siddiqi : 1935: Age: 81 y.o. MedRec: [id number] PCP: Antonio Paulino MD Admission date: 05/07/2017 Hospital day # : 9 Physician author: Yodit Philippe MD Today: 06/04/2017 SUBJECTIVE: No chest pain. Short of breath at rest and with exertion but only mildly so. Patient is c oncerned about [facility] (lymphedema compression wraps for nonhealing ulcers). He denies any knowledge of liver disease or pulmonary hyperte nsion. He is not subjectively dizzy on standing but nursing reports that his heart rate ris es to 200 or above with standing. He is unsteady on his feet. VITALS: Temp: 36.3 C (97.3 F), Pulse: 63, Resp: 23, BP: (!) 119/39, SpO2 95 % on room air at fl ow rate 2L/min No Data Recorded Weight: 104.3 kg (230 lb) PHYSICAL EXAM: General: Chronically ill Cardiovascular: Irregularly irregular with systolic and diastolic murmurs Respiratory: Bilateral dependent rales Abdomen: Soft, nontender Extremities: In compression wraps; adequate perfusion Skin: Shallow healing ulcers Neurological: Nonfocal DIAGNOSTIC STUDIES: Available data and images were reviewed personally. Significant results and findings are a ddressed here or in the Assessment and Plan. No results found for this or any previous visit (from the past 24 hour(s)). No results found. Current Medications: albuterol amiodarone amiodarone artificial tears atorvaSTATin benzonatate budesonide-formoterol docusate sodium donepezil ferrous sulfate furosemide guaiFENesin-codeine levothyroxine lisinopril metoprolol succinate nitroglycerin nystatin potassium chloride skin emollient traZODone warfarin warfarin warfarin ASSESSMENT and PLAN: Active Hospital Problems Diagnosis CRUZITO (obstructive sleep apnea) Venous stasis of both lower extremities Anemia Diastolic CHF CAD (coronary artery disease) Pulmonary HTN Dementia Liver cirrhosis H/O aortic valve replacement Hypertension Resolved Hospital Problems Diagnosis Date Noted Date Resolved *Atrial fibrillation with RVR - failed amiodarone; consult cardiology to consider pacin g to allow improved control of fast rhythms 03/19/2016 05/16/2017 Acute on chronic diastolic (congestive) heart failure 03/16/2016 05/16/2017 Total time of approximately 25 minutes was spent with the patient and/or patient's family, and/or on the patient's floor/unit, of which more than 50% was spent counseling and/or coord ination the patient's care as outlined above. Yodit Philippe 06/04/2017 20:[address] [facility] Nancy Perales RN - 0 05/09/2017 1:59 PM PDTEvaluated pt for PICC line, upon review of chart placed midline 4 fren ch in left cephalic. Pt Needing IV access for blood draw and occasional IVP medication.Barbara ctronically signed by Nancy Arechiga RN at 05/09/2017 2:01 PM Yodit Olmos MD - 05/08 8:15 PM PDT [facility] HOSPITALIST PROGRESS NOTE Patient: Jacklyn Siddiqi : 1935: Age: 81 y.o. MedRec: [id number] PCP: Antonio Paulino MD Admission date: 05/07/2017 Hospital day # : 9 Physician author: Yodit Philippe MD Today: 06/04/2017 SUBJECTIVE: No chest pain. Shortness of breath is at baseline. No new complaints described. Patient is aware Dr. Drummond intends to perform EGD today and is ready. VITALS: Temp: 36.3 C (97.3 F), Pulse: 63, Resp: 23, BP: (!) 119/39, SpO2 95 % on room air at fl ow rate 2L/min No Data Recorded Weight: 104.3 kg (230 lb) PHYSICAL EXAM: General: Chronically ill Cardiovascular: Irregularly irregular with systolic and diastolic murmurs Respiratory: Dependent rales bilaterally Abdomen: Obese soft Extremities: Compression wraps in place Skin: Bruising arms Neurological: Nonfocal; alert and fully oriented DIAGNOSTIC STUDIES: Available data and images were reviewed personally. Significant results and findings are a ddressed here or in the Assessment and Plan. Current Medications: albuterol amiodarone amiodarone artificial tears atorvaSTATin benzonatate budesonide-formoterol docusate sodium donepezil ferrous sulfate furosemide guaiFENesin-codeine levothyroxine lisinopril metoprolol succinate nitroglycerin nystatin potassium chloride skin emollient traZODone warfarin warfarin warfarin ASSESSMENT and PLAN: Active Hospital Problems Diagnosis CRUZITO (obstructive sleep apnea) Venous stasis of both lower extremities Anemia - suspected to be the cause of patient's near-syncopal spells; await EGD Diastolic CHF CAD (coronary artery disease) Pulmonary HTN Dementia Liver cirrhosis H/O aortic valve replacement Hypertension Resolved Hospital Problems Diagnosis Date Noted Date Resolved *Atrial fibrillation with RVR 03/19/2016 05/16/2017 Acute on chronic diastolic (congestive) heart failure 03/16/2016 05/16/2017 Total time of approximately 25 minutes was spent with the patient and/or patient's family, and/or on the patient's floor/unit, of which more than 50% was spent counseling and/or coord ination the patient's care as outlined above. Yodit Philippe 06/04/2017 20:[address] [facility] Mary Vargas RN - 05/08/2017 2:57 PM PDTPlaced patient in trendelenburg. Mary Vargas RN - 05/08/2017 2:25 PM PDTReadjusted bp cuff and repositioned arm for this reading.Electro nically signed by Mary Cortes RN at 05/08/2017 2:25 PM PDTJacey Cuevas RN - 05/08/20 2:34 AM PDTPt maintained on Octreotide infusion as ordered. Pt c/o "not getting enough a ir in" at 2100h. O2 sat 85% on room air. Pt repositioned in bed and RT notified. O2 2 L via CARD DOFFER applied. O2 sat increased to 91%. Maintained on same. Skin tear noted to Rt wrist and Lt elbow. Pt states same from fall on 05/07/17. Vaseline dressing applied on Rt wrist and secur ed with alice and paper tape. Lt elbow covered with Allevyn and secured with alice and paper tape. Pitting edema noted to mid abd to bilateral upper thighs. LE with Coban 2 wraps insit u to bilateral legs. Bruising noted to bilateral buttock. Pt maintained on telemetry and mon itored closely t/o shift. Pt turned and positioned frequently. Medicated for left leg pain a t hs. olly Rizzo PharmD - 05/07/2017 7:38 PM PDT . PHARMACY SERVICES: ADMISSION MEDICATION REVIEW Jacklyn Siddiqi is a 81 y.o. male admitted on 05/07/17. Patient is not a reliable historian. Location of Patient when reviewed: x ED Patient s prior to admit medication and over the counter (OTC) medications/herbal supplem ents list obtained from: x Verbal interview x Patient UNABLE to recall name, strength, and direction x MAR from SNF facility: [facility] [place] Vaccines up to date? Yes No Unsure Influenza x Pneumococcal x Tdap x Shingles x Noted medications discrepancies or medication-related issues: Dosage change: Medication: Prior to Admission Sig: Correct sig: Albuterol 90 mcg/puff inhaler 2 puffs into the lungs every 4 hours as needed for wheezing 2 puffs into the lungs 3 times daily as needed for wheezing Furosemide 40 mg 1 tablet by mouth 2 times daily 1 tablet by mouth daily Warfarin 5 mg by mouth nightly - 4 mg by mouth daily on Saturday, Saturday, Saturday, , Saturday -3 mg by mouth daily every Saturday - 2 mg by mouth daily every Saturday Medication added: Medication: Prior to Admission Sig: Doxycycline 100 mg 1 capsule by mouth 2 times daily Lisinopril 10 mg 1 tablet by mouth daily Potassium chloride 10 mEq 1 tablet by mouth daily Symbicort 160-4.5 mcg 2 puffs into the lungs 2 times daily Desonide 0.05% cream Apply sparingly 2 times daily as needed for lesion on head Eucerin cream Apply sparingly to affected areas 3 times daily as needed for dry skin Guaifenesin-codeine 100-10 mg/5 ml 5 ml by mouth every 6 hours as needed for cough Hydrocodone-acetaminophen 5-325 mg 1 tablet by mouth 3 times daily as needed for pain Nystatin 100,000 unit/gm cream Apply sparingly to affected areas 3 times daily as needed fo r fungal infection Terbinafine 1% cream Apply sparingly to fungally affected area 2 times daily Removed therapy: Medication: Prior to Admission Sig: Reason for Removal: Cephalexin 500 mg 1 capsule by mouth 2 times daily Not taking per MAR Cyanocobalamin 1000 mcg 1 tablet by mouth daily Not taking per MAR Donepezil 10 mg 0.5 tablet by mouth daily Not taking per MAR Magnesium oxide 420 mg 1 tablet by mouth daily Not taking per MAR Metoprolol tartrate 25 mg 0.5 tablet by mouth 2 times daily Not taking per MAR Senna 8.6 mg 2 tablets by mouth every morning Not taking per MAR Tamsulosin 0.4 mg 1 capsule by mouth 2 times daily Not taking per MAR Medication review performed and electronically signed by Isa Kaufman, Manager Export 16:14 Reviewed by: Dolly Rizzo, PharmAsaf 05/07/2017 19:29 Иван Escudero RN - 05/07/2017 7:30 PM PDTIcu called HR as high as 150 then down to 110, lung reilly nds with crackles in bases, SOB noted with any exertion, Dr Maciel here to see pt. Dicussed w marilee Blankenship,concern re: IVF at 50 cc/hr, and lung sounds with crackles,elevated heart rat e and current labs, orders received. IVF stopped, IV antibiotic completed. Report given to Grzegorz guerrier RN. Chip brooks, Greta Truong RN - 05/07/2017 5:16 PM PDTPt arrived from ER to acute medical room 447, c/o left leg discomfort. Recent fall today, multiple skin tears to bilat arms, pitting edema mi d abd to bilat upper thighs, LE with Coban 2 wraps, attempted to remove to visualize skin, p t's son adamantly refuses to allow staff to remove, d/t just being placed today at [facility], son r corinna pt does have open blisters to bila legs, left post thigh with redness and hard cellul itis p. HL. ANNE. Reviewed orders, admit to stepdown. Clarified admit status, states pt co uld remain on medical with tele with need to be monitored closely. Pt with multiple bruises, skin tears to bilat arms, bruising noted to left buttocks and right buttock, hard firm august ing edema from mid abd to upper thighs.copy of POA paper in ghost chart.Electronically johnny d by Greta Inman RN at 05/07/2017 9:13 PM PDTdocumented in this encounter H&P Notes Peter Maciel MD - 05/08/2017 10:01 AM PDTPatient interviewed, history and physical, symp toms reviewed VS signs noted, no change from previous H&P or assessment and plan.Electronic ally signed by Peter Maciel MD at 05/08/2017 10:02 AM PDTCrow, Yodit Ramsay MD - 05/07/2017 2:[address] [facility] HISTORY AND PHYSICAL Pt. Name/Age/: Jacklyn Siddiqi 81 y.o. 1935 Date of admission: 05/07/2017 Admitting Physician: Yodit Philippe MD Primary Care Provider: No Physician on file CHIEF COMPLAINT: Weakness and falls. HISTORY OF PRESENT ILLNESS: This is a 81 y.o. male who presents with two falls occurring while out with his son walking into and out of a convenience store. Usually receives care at the [facility] or nearer his home. He resides in an Assisted Living facility. He reports that he has had dark stools on occasi on lately and has been told by his doctor that his prescribed iron will discolor his stools. He did not feel weak or dizzy until today; had no falls until today. He is short of breat h all the time. He denies any chest pain. He has been treated recently with compression dr yessica to his knees for edema associated with stasis ulcers. 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 Initially resection was recommended but his cardiol ogist felt this was too risky so radiation therapy is being considered in its place. This p rocedure will be performed at this hospital and his son wonders if it can be set up while he 's here. PAST MEDICAL and SURGICAL HISTORY: Past Medical History: Diagnosis Date Alcoholic cirrhosis (HCC) 2003 CT scan 2003 at [facility] CAD (coronary artery disease) 2004 Had CABG to LAD (for 80-90% LAD) surgery done at [facility] CVA (cerebral infarction) -2014 lacunar (not stated as new nor old) Dementia Diastolic CHF (HCC) Echo 2013 EF 68, ascites, pulm HTN Endocarditis 2009 Enterococcus 6 weeks Amp + Gent H/O aortic valve replacement 2004 [facility] AVR INR goal is 2-3, surgery done at [facility] Hypertension Liver cirrhosis (HCC) Over-anticoagulated 04/01/2015 Peripheral vertigo 2013 BPPV left PSA elevation 2009 Pt declined Bx then Pulmonary HTN (HCC) Severe on Echo 2014 Retinal detachment 2011 Venous ulcer 2014 Leg Past Surgical History: Procedure Laterality Date CARDIAC SURGERY [address] [facility] [address] [facility] AVR FAMILY HISTORY: family history includes Heart disease in his father. SOCIAL HISTORY: reports that he has never smoked. He does not have any smokeless tobacco history on file. He reports that he does not drink alcohol. REVIEW OF SYSTEMS: Positive for shortness of breath, black stool, weakness and falls. A complete 10-system re view was otherwise negative except as noted in the HPI. HOME MEDICATIONS: Previous Medications ALBUTEROL 90 MCG/PUFF INHALER Inhale 2 puffs into the lungs every 4 hours as needed for Wheezing. ARTIFICIAL TEARS (REFRESH PLUS) 0.5% SOLN Place 1 drop into both eyes 4 times daily as needed (for dry eyes). ATORVASTATIN (LIPITOR) 10 MG TABLET Take 10 mg by mouth nightly. BENZONATATE (TESSALON) 100 MG CAPSULE Take 100 mg by mouth Twice daily as needed for C ough. CEPHALEXIN (KEFLEX) 500 MG CAPSULE Take 1 capsule by mouth 2 times daily. Indications: UTI - Lower CYANOCOBALAMIN (VITAMIN B-12) 1000 MCG TABLET Take 1,000 mcg by mouth Daily. DOCUSATE SODIUM (COLACE) 250 MG CAPSULE Take 250 mg by mouth 2 times daily. DONEPEZIL (ARICEPT) 10 MG TABLET Take 5 mg by mouth Daily. FERROUS SULFATE 325 MG TABLET Take 325 mg by mouth daily (with breakfast). Patient take s three times weekly on Mon, Wed, Fri FUROSEMIDE (LASIX) 40 MG TABLET Take 40 mg by mouth 2 times daily. LEVOTHYROXINE (SYNTHROID, LEVOTHROID) 25 MCG TABLET Take 25 mcg by mouth every morning (before breakfast). MAGNESIUM OXIDE (MAOX) 420 MG TABS Take 420 mg by mouth Daily. METOPROLOL TARTRATE (LOPRESSOR) 25 MG TABLET Take 0.5 tablets by mouth 2 times daily. NITROGLYCERIN (NITROSTAT) 0.[address] 1 tablet under the tongue every 5 pooja michela as needed for chest pain, up to 3 doses in 15 minutes - take blood pressure first - call 911 for unrelieved chest pain SENNA (SENOKOT) 8.6 MG TABLET Take 2 tablets by mouth every morning. TAMSULOSIN (FLOMAX) 0.4 MG CAPS Take 1 capsule by mouth 2 times daily. TRAZODONE (DESYREL) 50 MG TABLET Take 50 mg by mouth nightly as needed for Sleep. WARFARIN (COUMADIN) 2 MG TABLET Take 5 mg by mouth nightly. ALLERGIES: Allergies Allergen Reactions Latex Rash VITAL SIGNS: Temp: 36.8 C (98.2 F), Pulse: 107, Resp: 16, BP: 115/68, SpO2 100 % on room air at flow rate L/min Temp Min: 36.8 C (98.2 F) Max: 36.8 C (98.2 F) Weight: 104.3 kg (230 lb) PHYSICAL EXAMINATION: Gen Ede - alert, cooperative and no distress Head - Normocephalic, without obvious abnormality, atraumatic Eyes - PERRL, conjunctiva/corneas clear, EOM's intact both eyes ENT - mucous membranes moist Neck - supple Lungs - rales heard bilateral lung oden 2/3 up Heart - Prosthetic valve click at sternal border, appears regular, no murmur appreciated Abdomen - Obese, soft, nontender. Edema at flanks. Extremities - Edema of thighs. Calves tightly wrapped in coban dressing. Excellent cap illary refill. Skin - Stasis ulcers both calves reported - treated with compression dressings which wer e not removed. Nonhealing nickel-sized ulcer right forehead. Neurologic - Alert and oriented x 3. Cranial nerves II-XII intact. Strength 5/5 symme tric. Reflexes unremarkable. Babinski's unremarkable. Speech fluent and goal directed. DIAGNOSTIC STUDIES: Available data and images were reviewed personally. Significant results and findings are a ddressed here or in the Assessment and Plan. Lab Results Component Value Date HGB 9.2 (L) 05/07/2017 HCT 28.4 (L) 05/07/2017 PLT 170 05/07/2017 WBC 6.4 05/07/2017 Lab Results Component Value Date NA 143 05/07/2017 K 4.4 05/07/2017 CL 112 (H) 05/07/2017 CO2 25 05/07/2017 CREA 1.29 05/07/2017 BUN 34 (H) 05/07/2017 MG 2.5 03/16/2016 PHOS 4.4 03/01/2017 BNP 377 (H) 03/04/2017 No results found for: POCGLU Ct Head Wo Contrast Result Date: 05/07/2017 EXAM: CT HEAD WO CONTRAST dated 05/07/2017 11:52 AM HISTORY: Trauma Comparison: None. TECHN IQUE: Noncontrast CT is performed from the top of calvarium through the skull base. Coronal and sagittal reformats are performed. FINDINGS: BRAIN: There is mild cerebral atrophy. Th ere is appropriate associated prominence of the ventricles. A few enlarged right basal gangl ia perivascular spaces versus a tiny remote lacunar infarct is identified. No areas of incr eased attenuation to suggest intracranial hemorrhage. There is no mass, mass effect, or mid line shift. There are no abnormal extra-axial fluid or air collections. There is preservat ion of the duarte-white differentiation at this time. There are mild scattered regions of per iventricular and subcortical white matter low density. SCALP/ CALVARIUM: The scalp and skull are intact and are unremarkable. SINUSES / ORBITS/ MASTOIDS: The visible mastoid air cells and paranasal sinuses are clear. Evidence of left-sided scleral banding and left aphakia. T he globes and retroconal contents are intact and without evidence of acute abnormality. IMPR ESSION - 1. No acute intracranial abnormality identified. 2. Mild early cerebral atrophy and mild nonspecific white matter changes. Dictated and Signed by: MD Jose Leavitt signed: 05/07/2017 12:24 PM Xr Chest Ap Portable Result Date: 05/07/2017 PORTABLE CHEST X-RAY: 05/07/2017 11:39 AM CLINICAL HISTORY:FALL COMPARISON: 03/03/2017 FINDIN GS:Stable sternal wires and valve prosthesis. Chronic aortic arch calcification. No mediasti nal widening. Pulmonary vasculature is mildly prominent centrally. Stable mild cardiomegaly. Persistent small left pleural effusion. Airspace density at the left lung base, suggesting there may be some associated left basilar atelectasis. No other areas of abnormal lung densi ty. Degenerative changes in both shoulders. No acute bony abnormality. IMPRESSION - 1. Stabl e small left pleural effusion and left basilar airspace density. Postop valve replacement. S table cardiomegaly. No acute abnormality. Dictated and Signed by: Kiel Beltran MD Electro nically signed: 05/07/2017 12:13 PM EKG: Reviewed independently by me. The tracing shows atrial fibrillation, rate 106, left b undle branch block. I cannot find old ECGs to compare. ASSESSMENT and PLAN: 1) Acute gastrointestinal bleed with probable melena, unclear whether upper or lower GI reilly rce. Patient on warfarin with subtherapeutic dosing to protect prosthetic valve. He has ex perienced two falls which are attributed to weakness due to acute blood loss. We will need to hold warfarin, consult gastroenterology, consider heparin meanwhile for anticoagulation a nd begin proton pump inhibitors. We will withhold loop diuretics for today and give no IV f luids. Blood pressure is adequate. Admit to monitored bed and continue current medications as ordered except furosemide and iron. 2) Marked edema to flanks due to congestive heart failure with preserved ejection fraction, cirrhosis and pulmonary hypertension with chronic renal failure and almost certainly hypera ldosteronism. His edema has apparently been impossible to manage and has caused lower extre mity venous ulcers, which are managed with compression wraps. Patient is already on loop di uretics but not spironolactone. He is on magnesium but no potassium supplements, which arsenio l warrant watching. He is diagnosed with obstructive sleep apnea but has brought no C-PAP d evice with him. He is oxygenating well at present. Will add spironolactone and monitor for effect. 3) s/p aortic valve replacement 2004 or 2005 with subsequent endocarditis treated 2008. Va lve click is crisp and clean and last echocardiogram was reported as clean. 4) Frail. In Assisted Living facility. Has required frequent hospitalizations. Currently full code, which will need to be carefully reviewed during this hospitalization. 5) CAD. No current evidence of acute cardiac ischemia. DVT Prophylaxis Patient is bleeding, anemic due to acute GI blood loss and on warfarin. Further prophylaxi s is not indicated. Code Status Full code. CMS Documentation This patient is short of breath and acutely anemic with melena on warfarin with an artifici al valve in place. He is expected to pass more than two midnights in the hospital. Total of 60 minutes were required to complete the admission process. Electronically signed by: Yodit Philippe MD 05/07/2017 14:14 [facility] documented in this enc ounter Procedure Notes Cruzito Bird MD - 05/14/2017 8:35 AM PDTAssociated Order(s): CV EP PROCEDUREFormatti ng of this note might be different from the original. PERMANENT PACEMAKER IMPLANTATION PATIENT NAME: Jacklyn Siddiqi : 1935: AGE: 81 y.o. PRIMARY CARE: Antonio Paulino MD SURGEON: Cruzito Bird MD DATE OF PROCEDURE: 05/14/2017 PROCEDURES PERFORMED: 1. Utilization of contrast agent for left subclavian venography. 2. Dual chamber [employer]pert permanent pacemaker implantation. INDICATIONS: 1. Symptomatic irreversible tachycardia/bradycardia syndrome with atrial fibrillation DESCRIPTION OF PROCEDURE: After informed consent was obtained, the patient was taken to the hatchery laborer. 1 g of cefaz jamel was given intravenously. Patient was hooked up to EKG, pulse oximetry and blood pressu re monitoring. All parameters were kept stable during procedure. The [employer]pert pacemaker r epresentative was present in the operating room. Patient received 0.5 mg of Versed and 75 m cg of fentanyl intravenously for conscious sedation during the procedure. The left shoulder area was prepped and draped in the standard fashion. The left subclavian venogram was perf ormed using 20 mL of Conray IV contrast. Fluoroscopy was utilized during the procedure. P atient was positioned supine with wedge pillow placed under bilateral lower extremities. Un montserrat sterile technique, and 40 mL of 2:3 ratio of 1% lidocaine and 0.5% marcaine without epin ephrine injection for local anesthesia, the left subclavian venous access was obtained using a thin-wall needle via modified Seldinger technique. A guidewire was placed in the superio r vena cava and secured with a hemostat to the drape. Approximately 3 cm below the lower dimas rder of left clavicle, in the mid subclavicular area, a 3 to 6 cm long lateral incision was made with a #15 blade. The incision was extended by cautery down to the prepectoral fascia. A pocket was formed to the inferior and slightly superior by blunt dissection. The bleede rs were stopped with cautery. One piece of gauze soaked with normal saline was used to pack the pocket. A guide wire was then pulled through into the pocket. A 6 [place] sheath was p laced over the guidewire and the core was removed. The additional guidewires were inserted through the sheath. The sheath was then removed. The guidewires were secured by hemostat, leaving one guidewire to be utilized for placement of an 8 [place] safe sheath. A safe sheat h core and the guidewire were removed. The ventricular lead with a curved stylette was adva nced into the right ventricular outflow tract under fluoroscopy. The curved stylet was then exchanged for a straight one. The lead was gently positioned into right ventricular apex a nd screwed into position. With partial retraction of the stylette, the lead appeared to be stable. Appropriate slack was applied to the lead. The lead testing revealed good sensing and pacing threshold as noted below. There was no evidence of diaphragmatic stimulation at 10 V output. The peel-away safe sheath was removed. The lead was anchored down using a 2-0 silk, suturing the sleeve to the underlying fascia. Using the same technique as mentioned above, another 8 [place] safe sheath was utilized to i ntroduce an atrial lead, except that the straight stylette was utilized before the curved on e. The atrial lead was positioned in the right atrial appendage. At this time the stylets were removed from both leads. Under fluoroscopy, atrial and ventricular leads and the slack were checked one more time, confirming satisfactory position. The third guidewire was then removed. Both leads were checked for model and serial numbers, and connected to a pacemake r generator. Set screws, both, were securely ratcheted. Both leads were tight and snug. W ith ratcheting the ventricular and atrial leads, there was evidence of ventricular and atria l tracking and pacing, respectively. The leads were coiled and placed behind the fascia. T he pocket was flushed with normal saline. Hemostasis was obtained. A two layer running william sure was performed with a 2-0 Vicryl for prepectoral fascia and subcutaneous fatty tissue. Continuous subcuticular suturing was performed with a 4-0 Vicryl. The skin sealed with a la elmer of Dermabond. Pacemaker interrogation and programming were performed with details as me ntioned below. Estimated blood loss was 50 mL. COMPLICATIONS: There were no complications. The patient tolerated the procedure well. Po stop chest x-ray revealed that the atrial lead, ventricular lead and pacemaker generator wer e in good position. There is no evidence of pneumothorax. DEVICE INFORMATION: A. Pacemaker generator: [employer], model #: PM 2272, serial #: [id number]. B. Atrial lead: [employer] [place], length 46 cm, model #: LPA 1200 M, serial #: [id number]. C. Ventricular lead: [employer] [place], length 52 cm, model #: LPA 1200M, serial #: [id number]. PACEMAKER TESTING: A. Atrial lead: Sensing 2.4 mV, threshold 0.5 V at 0.4 ms, resistance 440 ohms. B. Ventricular lead: Sensing 17 mV, threshold 0.5 V at 0.4 ms, resistance 490 ohms. PACEMAKER TESTING: Mode: DDDR. Lower rate limit: 60 ppm. Upper limit: 120 ppm. Cruzito Bird MD 05/14/2017 8:36 documented in this encounter Consult Notes Vinay Bernard RN - 05/13/2017 6:01 PM PDTPICC indicated for poor access. Pt. Having pa cer placed tomorrow. Insertion documented in EMR. Placement confirmed by CXR Tip located at CAJ per Dr. Jose ESTRELLA notified line cleared for use Patient tolerated procedure well, c/o feeling hot. Cruzito Giang M D - 05/13/2017 7:03 AM PDT PATIENT NAME: Jacklyn Siddiqi : 1935: AGE: 81 y.o. ADMISSION DATE: 05/07/2017 HOSPITAL DAY NUMBER: [id number] PRIMARY CARE: Antonio Paulino MD REFERRING PROVIDER: Yodit Philippe M.D. CONSULTING PROVIDER: Cruzito Bird MD CARDIOLOGY CONSULTATION DATE OF CONSULTATION: 05/13/17 REASON FOR CONSULT: Symptomatic irreversible tachycardia/bradycardia syndrome Congestive heart failure HISTORY OF PRESENT ILLNESS: Jacklyn Siddiqi is a 81 y.o. male with a history of paroxysmal atrial fibrillation, mechanical aortic valve replacement, Fall/syncope with atrial fibrillation, wide complex tachycardia, c ongestive heart failure with preserved ejection fraction, stage III chronic kidney disease, hyperlipidemia and obstructive sleep apnea. He was admitted to [facility] on 05/07/2017 for Atrial fibrillation with RVR (HCC) and falls. He was in his usual state of health until 05/07/17 when he was admitted after he fell twice while walking out of a convenience store. He was found to be anemic so original thought was that he had GI bleeding causing the syncope. However, upper GI endoscopy did not reveal si gnificant source of GI bleeding. In the past 2 days, patient developed atrial fibrillation with rapid ventricular response. He was given metoprolol but ran into problems with hypotension. Amiodarone was started. Grzegorz garciaever, he developed a severe bradycardia with hypotension, requiring dopamine. Today, patient complained of feeling fatigued and tired. However, he has no chest pain. Grzegorz johnson had some leg swelling prior to admission this is getting better. He is now out of breath as he is sitting. He can sleep on one pillow without shortness of breath. PAST MEDICAL HISTORY Past Medical History: Diagnosis Date Alcoholic cirrhosis (HCC) 2003 CT scan 2003 at [facility] CAD (coronary artery disease) 2004 Had CABG to LAD (for 80-90% LAD) surgery done at [facility] CVA (cerebral infarction) -2014 lacunar (not stated as new nor old) Dementia Diastolic CHF (HCC) Echo 2013 EF 68, ascites, pulm HTN Endocarditis 2009 Enterococcus 6 weeks Amp + Gent H/O aortic valve replacement 2004 [facility] Rupert AVR INR goal is 2-3, surgery done at [facility] Hypertension Liver cirrhosis (HCC) Over-anticoagulated 04/01/2015 Peripheral vertigo 2012 BPPV left PSA elevation 2009 Pt declined Bx then Pulmonary HTN (HCC) Severe on Echo 2013 Retinal detachment 2011 Venous ulcer 2014 Leg CURRENT PROBLEMS Principal Problem: Atrial fibrillation with RVR Active Problems: H/O aortic valve replacement Hypertension Liver cirrhosis Dementia CAD (coronary artery disease) Pulmonary HTN Diastolic CHF Anemia CRUZITO (obstructive sleep apnea) Acute on chronic diastolic (congestive) heart failure Venous stasis of both lower extremities PAST SURGICAL HISTORY (INCLUDING PROCEDURES) Past Surgical History: Procedure Laterality Date CARDIAC SURGERY 2005 [facility]G and [facility]pert AVR UPPER GASTROINTESTINAL ENDOSCOPY N/A 05/08/2017 Procedure: EGD with Anesthesia; Surgeon: Peter Maciel MD; Location: [facility] MED[facility] FAMILY HISTORY Family History Problem Relation Age of Onset Heart disease Father SOCIAL HISTORY Social History Social History Marital status: Spouse name: N/A Number of children: N/A Years of education: N/A Occupational History Not on file. Social History Main Topics Smoking status: Never Smoker Smokeless tobacco: Not on file Alcohol use No Drug use: Unknown Sexual activity: Not on file Other Topics Concern Not on file Social History Narrative No narrative on file OUTPATIENT MEDICATIONS Prescriptions Prior to Admission Medication Sig Dispense Refill albuterol 90 mcg/puff inhaler Inhale 2 puffs into the lungs 3 times daily as needed for Wheezing. albuterol 90 mcg/puff inhaler Inhale 2 puffs into the lungs. artificial tears (REFRESH PLUS) 0.5% SOLN Place 1 drop into both eyes 4 times daily as needed (for dry eyes). artificial tears (REFRESH PLUS) 0.5% SOLN 1 drop. atorvaSTATin (LIPITOR) 10 mg tablet Take 10 mg by mouth nightly. atorvaSTATin (LIPITOR) 10 mg tablet Take 10 mg by mouth. benzonatate (TESSALON) 100 mg capsule Take 100 mg by mouth Twice daily as needed for C ough. benzonatate (TESSALON) 100 mg capsule Take 100 mg by mouth. budesonide-formoterol (SYMBICORT) 160-4.5 mcg/puff inhaler Inhale 2 puffs into the lung s 2 times daily. budesonide-formoterol (SYMBICORT) 160-4.5 mcg/puff inhaler Inhale 2 puffs into the lung s. cyanocobalamin (VITAMIN B-12) 1000 MCG tablet Take 1,000 mcg by mouth. desonide (DESOWEN) 0.05% cream Apply topically. docusate sodium (COLACE) 250 MG capsule Take 250 mg by mouth Daily. docusate sodium (COLACE) 250 MG capsule Take 250 mg by mouth. donepezil (ARICEPT) 10 MG tablet Take 5 mg by mouth. fenofibrate (TRICOR) 145 mg tablet Take 145 mg by mouth. ferrous sulfate 325 mg tablet Take 325 mg by mouth daily (with breakfast). Patient take s three times weekly on Mon, Wed, Fri furosemide (LASIX) 40 mg tablet Take 40 mg by mouth Daily. guaiFENesin-codeine (ROBITUSSIN AC) 100-10 mg/5 mL liquid Take 5 mLs by mouth every 6 h ours as needed for Cough. HYDROcodone-acetaminophen (NORCO) 5-325 mg per tablet Take 1 tablet by mouth 3 times da isak as needed for Pain. levothyroxine (SYNTHROID, LEVOTHROID) 25 mcg tablet Take 25 mcg by mouth every morning (before breakfast). lisinopril (PRINIVIL, ZESTRIL) 10 mg tablet Take 10 mg by mouth Daily. [] metOLazone (ZAROXOLYN) 2.5 mg tablet Take 2.5 mg by mouth. nitroglycerin (NITROSTAT) 0.[address] 1 tablet under the tongue every 5 pooja michela as needed for chest pain, up to 3 doses in 15 minutes - take blood pressure first - call 911 for unrelieved chest pain nystatin (MYCOSTATIN) cream Apply topically 3 times daily as needed (for fungal infect ion). potassium chloride (KLOR-CON) 10 MEQ ER tablet Take 10 mEq by mouth Daily. skin emollient (EUCERIN CALMING DAILY MOIST) cream Apply topically. traZODone (DESYREL) 50 mg tablet Take 50 mg by mouth nightly as needed for Sleep. warfarin (COUMADIN) 2 mg tablet Take 2 mg by mouth Once a week. Every Saturday warfarin (COUMADIN) 3 MG tablet Take 3 mg by mouth Once a week. Every Saturday warfarin (COUMADIN) 4 MG tablet Take 4 mg by mouth Daily. Every Saturday, Saturday, Saturday , , and Saturday CURRENT SCHEDULED MEDS: albuterol 2.5 mg Nebulization RT Q6H atorvaSTATin 10 mg Oral Nightly benzonatate 100 mg Oral TID budesonide 0.5 mg Nebulization RT BID docusate-senna 2 tablet Oral BID donepezil 5 mg Oral Nightly fenofibrate 54 mg Oral Daily hydrocortisone Topical BID lisinopril 5 mg Oral Daily metOLazone 2.5 mg Oral Daily spironolactone 12.5 mg Oral Daily IV INFUSIONS: DOPamine Stopped (05/12/17 8030) norepinephrine Stopped (05/11/17 9345) ALLERGIES Allergies Allergen Reactions Latex Rash REVIEW OF SYSTEMS Constitutional: Complaining of feeling fatigued. Denies fever, chills, weight loss, sudd en weight gain. Eyes: Denies double vision, sudden vision loss. Ears/Nose/Throat: Denies tinnitus, decreased hearing, nosebleeds. Cardiovascular: Complaining of passing out twice on admission. Denies chest pains, palpita tions, dizziness, orthopnea, PND, peripheral edema. Respiratory: Complaining of mild shortness of breath on exertion. Denies cough, wheezing , sleep apnea, snoring. Gastrointestinal: Denies nausea, vomiting, diarrhea, abdominal pain. Genitourinary: Denies dysuria, increased urinary frequency, nocturia. Musculoskeletal: Denies back pain, arthritis, muscle weakness, myalgias. Skin: Denies rash, itching, suspicious lesions. Neurologic: Denies transient paralysis, paresthesias, seizures, tremors, memory impairmen t, depression, sciatica, balance problems, headache, anxiety. Heme/Lymphatic: Denies abnormal bruising, bleeding, enlarged lymph nodes. Endocrine: Denies cold intolerance, heat intolerance, polydipsia, polyuria. PHYSICAL EXAM Latest VS: BP 97/45 | Pulse 56 | Temp 36.8 C (98.2 F) (Bladder) | Resp 19 | Ht 1.6 76 m (5' 6") | Wt 106.6 kg (235 lb 0.2 oz) | SpO2 97% | BMI 37.93 kg/m Vital sign ranges for last 24hrs: Input and output for last 24hrs: Temp: [36.8 C (98.2 F)-37.5 C (99.5 F)] 36.8 C (98.2 F) Pulse: [56-77] 56 Resp: [17-25] 19 BP: (88-108)/(35-53) 97/45 SpO2 Av.5 % Min: 85 % Max: 100 % Flow (L/min) Av Min: 2 Max: 2 05/11 1901 - 05/13 0700 In: 728.8 [P.O.:400; I.V.:328.8] Out: 775 [Urine:775] Body mass index is 37.93 kg/m.; Body surface area is 2.23 meters squared. Constitutional General appearance: Male, elderly, well developed, well nourished, well groomed, no ac wing distress Cardiovascular NYHA Class: II- Symptoms with moderate exertion Palp/Percussion: PMI in 5th ICS at MCL; no lifts, thrills, palp S3 or S4. Auscultation: normal S1 S2; no gallop or rub or click Murmur: Normal mechanical prosthetic heart sound at the aortic position. Carotid arteries: pulses 2+, symmetric, no bruits Abdominal aorta: no enlargement or bruits Femoral arteries: pulses 2+, symmetric Pedal pulses: pulses 2+, symmetric Peripheral circulation: 1+ bilateral leg swelling with chronic venous static eczema. Gastrointestinal Abdomen: soft, non-tender, no masses Liver and spleen: no enlargement Mental Status/Neurological Orientation: oriented to time, place, and person Affect/Mood: no depression, anxiety, or agitation Respiratory Respiratory effort: no intercostal retractions or use of accessory muscles Auscultation: no rales, rhonchi, or wheezes Eyes Conjunctiva & lids: conjunctiva and lids normal Ears, Nose and Throat Lips: no pallor or cyanosis Neck Jugular veins: no significant JVD; no a, v or bianchi waves Extremities Digits and nails: no clubbing, cyanosis, or petechiae Skin Inspection: no visible rashes, lesions, or ulcerations LABS Recent Results (from the past 24 hour(s)) ECG 12 lead Collection Time: 05/12/17 9:34 Result Value Ref Range VENTRICULAR RATE EKG 82 BPM ATRIAL RATE 102 BPM P-R INTERVAL 126 ms QRS DURATION 138 ms Q-T INTERVAL 418 ms Q-T INTERVAL (CORRECTED) 488 ms P WAVE AXIS 78 degrees QRS AXIS -25 degrees T AXIS 158 degrees INTERPRETATION TEXT Sinus tachycardia with 2nd degree AV block (Mobitz II) with premature supraventricular co mplexes Nonspecific intraventricular block Cannot rule out Anterior infarct (cited on or before 10-MAY-2017) Marked T wave abnormality, consider anterolateral ischemia Abnormal ECG When compared with ECG of 10-MAY-2017 18:37, sinus tachycardia now present T wave inversion no longer evident in Anterior leads QT has lengthened Confirmed by FREDERICK CHARLTON, BINU ([id number]) on 05/13/2017 6:24:02 AM Culture, Blood Collection Time: 05/12/17 11:07 Result Value Ref Range Culture No growth: Monitored continually by instrument for 5 days Protime INR Collection Time: 05/12/17 19:42 Result Value Ref Range PROTIME 23.6 (H) 11.3 - 13.9 seconds INR 2.04 (H) 0.90 - 1.10 Basic Metabolic Panel Collection Time: 05/12/17 19:49 Result Value Ref Range NA 137 136 - 149 mmol/L K 4.5 3.5 - 5.1 mmol/L CL 108 98 - 109 mmol/L CO2 25 24 - 31 mmol/L ANION GAP 4 3 - 16 mmol/L GLUCOSE 113 (H) 70 - 109 mg/dL BUN 37 (H) 7 - 18 mg/dL Creatinine, Serum/Plasma 1.82 (H) 0.60 - 1.30 mg/dL eGFR if not 36 (L) >=60 mL/min/1.73m2 CALCIUM 8.4 8.3 - 10.5 mg/dL BUN/CREA 20.3 CBC no Differential Collection Time: 05/12/17 19:49 Result Value Ref Range WBC 5.5 4.0 - 11.0 K/uL RBC 2.97 (L) 4.30 - 5.70 M/uL Hgb 8.9 (L) 13.5 - 18.0 g/dL Hct 27.5 (L) 40.0 - 51.0 % MCV 92.4 83.0 - 101.0 fL MCH 29.9 28.0 - 35.0 pg MCHC 32.3 32.0 - 36.0 g/dL RDW-CV 16.7 (H) <15.0 % Platelet Count 129 (L) 140 - 440 K/uL MPV 7.9 fL Basic Metabolic Panel Collection Time: 05/13/17 4:36 Result Value Ref Range NA 140 136 - 149 mmol/L K 4.5 3.5 - 5.1 mmol/L CL 107 98 - 109 mmol/L CO2 28 24 - 31 mmol/L ANION GAP 5 3 - 16 mmol/L GLUCOSE 93 70 - 109 mg/dL BUN 40 (H) 7 - 18 mg/dL Creatinine, Serum/Plasma 1.67 (H) 0.60 - 1.30 mg/dL eGFR if not 39 (L) >=60 mL/min/1.73m2 CALCIUM 8.4 8.3 - 10.5 mg/dL BUN/CREA 24.0 CBC no Differential Collection Time: 05/13/17 4:36 Result Value Ref Range WBC 7.1 4.0 - 11.0 K/uL RBC 3.13 (L) 4.30 - 5.70 M/uL Hgb 9.3 (L) 13.5 - 18.0 g/dL Hct 29.1 (L) 40.0 - 51.0 % MCV 92.8 83.0 - 101.0 fL MCH 29.7 28.0 - 35.0 pg MCHC 32.0 32.0 - 36.0 g/dL RDW-CV 17.1 (H) <15.0 % Platelet Count 126 (L) 140 - 440 K/uL MPV 8.2 fL Differential, Blood, Manual Collection Time: 07/24/17 4:36 Result Value Ref Range % Seg Neutrophils 49.0 (L) 50.0 - 70.0 % % Lymphocytes 38.0 20.0 - 40.0 % % Monocytes 10.0 (H) 1.0 - 6.0 % % Bands 3.0 0.0 - 5.0 % Absolute Seg Neutrophils 3.48 1.80 - 7.70 K/uL Absolute Lymphocytes 2.70 1.00 - 3.40 K/uL Absolute Monocytes 0.71 0.00 - 0.80 K/uL Absolute Bands 0.21 0.00 - 1.50 K/uL Total Counted 100 WBC MORPHOLOGY Normal PLT MORPHOLOGY Normal HYPOCHROMIA Slight (A) (none) IMAGING Xr Chest Pa Or Ap Result Date: 05/12/2017 CLINICAL INFORMATION: Picc line placement verification. COMPARISON: 05/11/2017 and 05/07/2017 . IMPRESSION - Unchanged aeration of the lungs with left pleural effusion and basilar airs pace opacities and probable minimal to mild pulmonary edema. Left sided vascular catheter wi th the tip at the level of the midhumerus. Dictated and Signed by: Jadon White MD Elec tronically signed: 05/12/2017 2:[address] Head Wo Contrast Result Date: 05/07/2017 EXAM: CT HEAD WO CONTRAST dated 05/07/2017 11:52 AM HISTORY: IMPRESSION - 1. No acute int racranial abnormality identified. 2. Mild early cerebral atrophy and mild nonspecific white matter changes. Dictated and Signed by: Dion Whitehead MD Electronically signed: 05/07/2017 12:24 PM Xr Chest Ap Portable Result Date: 05/11/2017 CLINICAL INFORMATION: New hypoxemia and reduced breath sounds and crackles left lung base. IMPRESSION - Overall unchanged aeration of the lungs from prior with persistent left pleura l effusion and left basilar opacities, likely compressive atelectasis. Possible minimal to m ild pulmonary edema. Dictated and Signed by: Jadon White MD Electronically signed: 05/11 1:37 PM Xr Chest Ap Portable Result Date: 05/07/2017 PORTABLE CHEST X-RAY: 05/07/2017 11:39 AM CLINICAL HISTORY:FALL IMPRESSION - 1. Stable smal l left pleural effusion and left basilar airspace density. Postop valve replacement. Stable cardiomegaly. No acute abnormality. Dictated and Signed by: Kiel Beltran MD Electronicall y signed: 05/07/2017 12:13 PM ECG: Atrial fibrillation with complete left bundle branch block ASSESSMENT: 1. Fall/syncope with atrial fibrillation with complete left bundle branch block and wide-c omplex tachycardia suggesting A. fib with RVR/abrasion conduction A. Echocardiogram of 05/13/17 showed mild biatrial dilatation. Normal left ventricular size with a mild concentric left ventricular hypertrophy. Left ventricular systolic function is preserved. LVEF is 55-60%. Evidence of a paradoxical septal motion. Normal right ventricular size and wall thickness with a mildly decreased right ventricular systolic function. Normal ly functioning mechanical bileaflet aortic valve replacement. Mildly thickened and calcified mitral valve with adequate opening. There is a mild mitral valve regurgitation. Mild mitral annular calcification. Moderate pulmonary hypertension with a peak systole pres sure of 65-70 mmHg. Dilated IVC without respiratory collapse suggesting fluid retention. When compared to echocardiography on 02/28/17, pulmonary hypertension is slightly worsened and patient appear ed to be fluid overloaded on this study. B. He was in his usual state of health until 05/07/17 when he was admitted after he fell tw ice while walking out of a convenience store. He was found to be anemic so original thought was that he had GI bleeding causing the syncope. However, upper GI endoscopy did not revea l significant source of GI bleeding. C.In the past 2 days, patient developed atrial fibrillation with rapid ventricular respons e. He was given metoprolol but ran into problems with hypotension. Amiodarone was started. However, he developed a severe bradycardia with hypotension, requiring dopamine. Patient meets criteria for symptomatic irreversible tachycardia/bradycardia syndrome. He also has a significant hypotension with blood pressure limitation. He is a candidate for du al-chamber permanent pacemaker implantation so that he can be put on amiodarone. Because of his age and comorbidities, he'll be treated on rate control strategy. EP study and A. fib ablation is not contraindicated due to his advanced age. He has signs and symptoms of overt congestive heart failure. He is in a class II of [place] [employer] functional class. There is fluid retention on physical examinatio n. 2. Congestive heart failure with preserved ejection fraction A. He is being treated with metolazone and Aldactone. 3. Mechanical aortic valve replacement A. On long-term Coumadin. 4. GI bleeding A. Being seen by Dr. Dunne. 5. Stage III chronic kidney disease 6. Hyperlipidemia 7. Chronic obstructive pulmonary disease 8. Obstructive sleep apnea PLAN: 1. I spend time at length talking about natural course, treatment and prognosis of persist ent atrial fibrillation with rapid ventricular response with aberration conduction. 2. Schedule for dual-chamber permanent pacemaker implantation.The risks and benefits of th e procedure including alternative treatment were discussed with the patient in length. The p atient decides to proceed with the procedure. 3. Will start to load amiodarone after pacemaker amputation. Thank you for including me in the care of this patient. Electronically signed by: Cruzito Bird MD [facility] 05/13/2017 7:03 Portions of this chart may have been created with [employer] voice recognition software. Occasi onal wrong-word or sound-alike substitutions may have occurred due to the inherent carter itations of voice recognition software. Please read the chart carefully and recognize, using context, where these substitutions have occurred. Amelie Alvarez RN - 05/08/2017 11:53 AM PDTAssociated O rder(s): IP CONSULT TO WOUND OSTOMY NURSEJosefina Siddiqi is a [facility] who [facility] [place] [facility], that has the Coban 2 placed every /Sat which were just placed yesterday . Per the patient he has two ulcerations to the left LE POA. His son and him do not want the wraps removed until SaturdayMay 10 please. OT and Nursing to document wound/ulcers at that session. Have requested [facility] medical records as well to have in the paper chart. Amelie Pack RN [facility] Ext [phone] docume nted in this encounter ED Notes Raphael Karimi MD - 05/07/2017 11:21 AM PDTFormatting of this note might be different fro m the original. eMERGENCY dEPARTMENT eNCOUnter CHIEF COMPLAINT Chief Complaint Patient presents with Fall HPI Jacklyn Siddiqi is a 81 y.o. male who presents skin abrasions status post fall. He states he s topped at a gas station when he fell to the ground. He is here with his son who saw him fal l. He did not hit his head or lose consciousness that he is aware of. He does have dementi a. He has been very weak for last couple of days. He has had no vomiting or other associated symptoms. He states he does have occasional blo od in his stools. He states he has had a GI bleed in the past. I'm not totally sure how reliable his history is as he does have a history of dementia. PAST MEDICAL HISTORY Past Medical History: Diagnosis Date Alcoholic cirrhosis (HCC) 2003 CT scan 2003 at [facility] CAD (coronary artery disease) 2004 Had CABG to LAD (for 80-90% LAD) surgery done at [facility] CVA (cerebral infarction) -2014 lacunar (not stated as new nor old) Dementia Diastolic CHF (HCC) Echo 2013 EF 68, ascites, pulm HTN Endocarditis 2009 Enterococcus 6 weeks Amp + Gent H/O aortic valve replacement 2004 [facility] Rupert AVR INR goal is 2-3, surgery done at [facility] Hypertension Liver cirrhosis (HCC) Over-anticoagulated 04/01/2015 Peripheral vertigo 2012 BPPV left PSA elevation 2008 Pt declined Bx then Pulmonary HTN (HCC) Severe on Echo 2013 Retinal detachment 2011 Venous ulcer 2014 Leg SURGICAL HISTORY Past Surgical History: Procedure Laterality Date CARDIAC SURGERY 2005 [facility] CABG and [facility] AVR CURRENT MEDICATIONS Previous Medications ALBUTEROL 90 MCG/PUFF INHALER Inhale 2 puffs into the lungs every 4 hours as needed for Wheezing. ARTIFICIAL TEARS (REFRESH PLUS) 0.5% SOLN Place 1 drop into both eyes 4 times daily as needed (for dry eyes). ATORVASTATIN (LIPITOR) 10 MG TABLET Take 10 mg by mouth nightly. BENZONATATE (TESSALON) 100 MG CAPSULE Take 100 mg by mouth Twice daily as needed for C ough. CEPHALEXIN (KEFLEX) 500 MG CAPSULE Take 1 capsule by mouth 2 times daily. Indications: UTI - Lower CYANOCOBALAMIN (VITAMIN B-12) 1000 MCG TABLET Take 1,000 mcg by mouth Daily. DOCUSATE SODIUM (COLACE) 250 MG CAPSULE Take 250 mg by mouth 2 times daily. DONEPEZIL (ARICEPT) 10 MG TABLET Take 5 mg by mouth Daily. FERROUS SULFATE 325 MG TABLET Take 325 mg by mouth daily (with breakfast). Patient take s three times weekly on Mon, Wed, Fri FUROSEMIDE (LASIX) 40 MG TABLET Take 40 mg by mouth 2 times daily. LEVOTHYROXINE (SYNTHROID, LEVOTHROID) 25 MCG TABLET Take 25 mcg by mouth every morning (before breakfast). MAGNESIUM OXIDE (MAOX) 420 MG TABS Take 420 mg by mouth Daily. METOPROLOL TARTRATE (LOPRESSOR) 25 MG TABLET Take 0.5 tablets by mouth 2 times daily. NITROGLYCERIN (NITROSTAT) 0.[address] 1 tablet under the tongue every 5 pooja michela as needed for chest pain, up to 3 doses in 15 minutes - take blood pressure first - call 911 for unrelieved chest pain SENNA (SENOKOT) 8.6 MG TABLET Take 2 tablets by mouth every morning. TAMSULOSIN (FLOMAX) 0.4 MG CAPS Take 1 capsule by mouth 2 times daily. TRAZODONE (DESYREL) 50 MG TABLET Take 50 mg by mouth nightly as needed for Sleep. WARFARIN (COUMADIN) 2 MG TABLET Take 5 mg by mouth nightly. ALLERGIES Allergies Allergen Reactions Latex Rash FAMILY HISTORY Family History Problem Relation Age of Onset Heart disease Father SOCIAL HISTORY Social History Social History Marital status: Spouse name: N/A Number of children: N/A Years of education: N/A Social History Main Topics Smoking status: Never Smoker Smokeless tobacco: Not on file Alcohol use No Drug use: Unknown Sexual activity: Not on file Other Topics Concern Not on file Social History Narrative No narrative on file REVIEW OF SYSTEMS All systems reviewed and negative except as noted on HPI and/or limited by patient conditio n PHYSICAL EXAM VITAL SIGNS: Temp: 36.8 C (98.2 F) Pulse: 107 Resp: 16 SpO2: 100 % BP: 115/68 Constitutional: Well developed, Well nourished, No acute distress, Non-toxic appearance. HENT: Normocephalic, Atraumatic, Oropharynx moist, No oral exudates, Nose normal. Neck- No rmal range of motion, No tenderness, Supple, No stridor. Eyes: PERRL, EOMI, Conjunctiva normal, No discharge. Respiratory: Normal breath sounds, No wheezing, No chest tenderness. Cardiovascular: , loud systolic murmur GI: nondistended, nontender : stool is brown but is guaiac positive Musculoskeletal: Intact distal pulses, No edema ,Integument: Warm, Dry, No erythema, abrasions on both arms EKG Atrial fibrillation with RVR RADIOLOGY Ct Head Wo Contrast Result Date: 05/07/2017 EXAM: CT HEAD WO CONTRAST dated 05/07/2017 11:52 AM HISTORY: Trauma Comparison: None. TECHN IQUE: Noncontrast CT is performed from the top of calvarium through the skull base. Coronal and sagittal reformats are performed. FINDINGS: BRAIN: There is mild cerebral atrophy. Th ere is appropriate associated prominence of the ventricles. A few enlarged right basal gangl ia perivascular spaces versus a tiny remote lacunar infarct is identified. No areas of incr eased attenuation to suggest intracranial hemorrhage. There is no mass, mass effect, or mid line shift. There are no abnormal extra-axial fluid or air collections. There is preservat ion of the duarte-white differentiation at this time. There are mild scattered regions of per iventricular and subcortical white matter low density. SCALP/ CALVARIUM: The scalp and skull are intact and are unremarkable. SINUSES / ORBITS/ MASTOIDS: The visible mastoid air cells and paranasal sinuses are clear. Evidence of left-sided scleral banding and left aphakia. T he globes and retroconal contents are intact and without evidence of acute abnormality. IMPR ESSION - 1. No acute intracranial abnormality identified. 2. Mild early cerebral atrophy and mild nonspecific white matter changes. Dictated and Signed by: MD Jose Leavitt signed: 05/07/2017 12:24 PM Xr Chest Ap Portable Result Date: 05/07/2017 PORTABLE CHEST X-RAY: 05/07/2017 11:39 AM CLINICAL HISTORY:FALL COMPARISON: 03/03/2017 FINDIN GS:Stable sternal wires and valve prosthesis. Chronic aortic arch calcification. No mediasti nal widening. Pulmonary vasculature is mildly prominent centrally. Stable mild cardiomegaly. Persistent small left pleural effusion. Airspace density at the left lung base, suggesting there may be some associated left basilar atelectasis. No other areas of abnormal lung densi ty. Degenerative changes in both shoulders. No acute bony abnormality. IMPRESSION - 1. Stabl e small left pleural effusion and left basilar airspace density. Postop valve replacement. S table cardiomegaly. No acute abnormality. Dictated and Signed by: Keil Beltran MD Electro nically signed: 05/07/2017 12:13 PM Medications Administered Protonix ED COURSE & MEDICAL DECISION MAKING Last Set of Vital Signs: Temp: 36.8 C (98.2 F) Pulse: 107 Resp: 16 SpO2: 100 % BP: 115/ 68 Pertinent Labs, Nurses Note, & Imaging studies reviewed. (See chart for details) 81 -year-old male with multiple falls, anemia, and guaiac positive stool. His vitals are s table. He will be given a dose of Protonix. Admitted to the hospitalist service for furthe r evaluation and treatment. His INR is low. FINAL IMPRESSION Anemia, fall, weakness, LABS FROM THIS VISIT OR MOST RECENT ER VISIT: Results for orders placed or performed during the hospital encounter of 05/07/17 CBC no Differential Result Value Ref Range WBC 6.4 4.0 - 11.0 K/uL RBC 3.10 (L) 4.30 - 5.70 M/uL Hgb 9.2 (L) 13.5 - 18.0 g/dL Hct 28.4 (L) 40.0 - 51.0 % MCV 91.4 83.0 - 101.0 fL MCH 29.7 28.0 - 35.0 pg MCHC 32.5 32.0 - 36.0 g/dL RDW-CV 16.3 (H) <15.0 % Platelet Count 170 140 - 440 K/uL MPV 8.2 fL Basic Metabolic Panel Result Value Ref Range NA 143 136 - 149 mmol/L K 4.4 3.5 - 5.1 mmol/L CL 112 (H) 98 - 109 mmol/L CO2 25 24 - 31 mmol/L ANION GAP 6 3 - 16 mmol/L GLUCOSE 106 70 - 109 mg/dL BUN 34 (H) 7 - 18 mg/dL Creatinine, Serum/Plasma 1.29 0.60 - 1.30 mg/dL eGFR if not 53 (L) >=60 mL/min/1.73m2 CALCIUM 8.7 8.3 - 10.5 mg/dL BUN/CREA 26.4 Protime INR Result Value Ref Range PROTIME 18.6 (H) 11.3 - 13.9 seconds INR 1.51 (H) 0.90 - 1.10 Troponin I Result Value Ref Range Troponin I 0.03 <0.06 ng/mL POCT Urinalysis Dipstick Automated Result Value Ref Range Color, UA, POC Yellow Yellow, Light Yellow Clarity, UA, POC Clear Glucose, UA, POC Negative Negative Bilirubin, UA, POC Negative Negative Ketones, UA, POC Negative Negative, 100 mg/dL Specific [place], UA, POC 1.025 1.001 - 1.030 Blood, UA, POC Negative Negative pH, UA, POC 5.0 5.0, 6.0, 7.0, 8.0, 5.5, 6.5, 7.5 Protein, UA, POC 1+ (A) Negative Urobilinogen, UA, POC < 0.2 E.U./dl 0.2, Negative, Normal, < 0.2 mg/dL, 1 mg/dL, < 0.2 E.U ./dl, 1.0 E.U./dL, 0.2 mg/dL Nitrite, UA, POC Negative Negative Leukocyte Esterase, UA, POC Negative Negative RED SUB UA ICTOTEST Negative REMARK ECG 12 lead Result Value Ref Range INTERPRETATION TEXT Not Confirmed Raphael Karimi MD 05/07/17 1243 Raphael Karimi MD 05/07/17 1245 documented in this en counter Miscellaneous Notes Plan of Care - Erin Gates, OT - 05/16/2017 2:42 PM PDT Problem: Patient Care Overview (Adult) Goal: Care Team Goals & Evaluation PROBLEM-RELATED GOALS: 1. Jacklyn will have breath sounds consistent with baseline function throughout stay and rev erse airway bronchospasm when indicated. Reevaluate goal by 05/19/17. 2. Jacklyn will be free from falls by 05/14/17 3. Jacklyn will have adequate pain control 12/28 by 05/14/17 4. Jacklyn will have HR less than 100 by 05/14/2017 5. Jacklyn will maintain and improve skin integrity by 05/14/17. 6. Jacklyn will amb with FWW and SBA Without reporting SOB by 05/14/17 STRATEGY TO ACHIEVE GOALS: 1. Administer respiratory medications as ordered and adjust with use of respiratory protoco ls. 2. Fall risk precautions in place, bed alarm activated, call light within reach, hourly rou nds. 3. Provide RX per order, reposition Q2 hours, provide rest periods, monitor pain. 4. Monitor telemetry, administer rate control medications as ordered. Avoid fluid overload, monitor I and O. 5. Provide proper skin wound treatment and dressing change, provide assist with transfers, provide padded protectant's on bony extremities. 6. Pt to amb with nursing and PT. RESTRAINT-RELATED GOALS: STRATEGIES TO ACHIEVE RESTRAINT GOALS: Outcome: Adequate for Discharge Date Met: 05/16/17 Occupational Therapy Plan of Care Treatment Note Summary: Jacklyn has been participating in occupational therapy for treatment of stasis wou nd on LLE. Emphasis of session included wound care, compression to L LE. Patient demonstra michela progress towards functional goals as evidenced by wound is now healed with 100% epitheli alization, edema significantly reduced. Remaining barriers to discharge and functional limi tations include mobility, functional transfers, ADL deficits. Jacklyn will benefit from continued therapeutic intervention to address ongoing impairments and increase safety and independence with activities at the SNF in order to return home. Re isaiah below for specific details regarding mobility. Occupational Therapy Discharge Recommendations are: Recommended discharge disposition: assisted living, SNF Post discharge occupational therapy recommendation: (TBD) Equipment Recommendations: none Planned Interventions:other (see comments), ADL retraining, strengthening Recommended Frequency: other (see comments) (2x/wk and PRN) Patient Status/Goals: Reflects last filed data and may be from multiple contributors. OT Goal Review Date Flowsheet Row Most Recent Value STG Review Date 05/16/17 at 05/09/2017 1604 Additional Goals #1 OT Flowsheet Row Most Recent Value STG Status met at 05/16/2017 1436 STG pt will tolerate compression wrapping 3-4 days when dressing will be changed as well a t 05/16/2017 1436 Additional Goals #2 OT Flowsheet Row Most Recent Value STG Status met at 05/16/2017 1436 STG wound will show progression towards healing at 05/16/2017 1436 Electronically signed by: Erin Gates OT, 05/16/2017 14:39 NF Transfer - Susan Kwok MD - 05/16/2017 2:20 PM PDT [facility] FACILITY TRANSFER ORDERS Patient Name: Jacklyn Siddiqi Patient : 1935 Gender: male Date of Admission: 05/07/2017 Date of Discharge: 05/16/2017 Admitting Provider: Yodit Philippe MD Discharging Provider: Susan Vides MD Consultants: Dr Nettles PCP: Antonio Paulino [facility] transferring to: [facility] Provider after transfer: CODE STATUS: [x] Attempt CPR [] Do not resuscitate If patient is pulseless and not breathing, RN/MEDICAL ONCOLOGIST may pronounce . Advanced Directives included: [] POLST [] MOLST/MOST [] [facility] [place] ([place]) [] Other: Code status discussed with: [] Patient [] Spouse/Family [] DPOA [x] Other: Name of person discussed with: Date discussed: Isolation/Infection Precautions: [x] None Height: Height: 167.6 cm (5' 6") Wt Readings from Last 3 Encounters: 05/16/17 101.9 kg (224 lb 10.4 oz) 03/04/17 95.7 kg (210 lb 15.7 oz) 04/20/16 97.5 kg (215 lb) Admitting Diagnosis: Gastrointestinal hemorrhage, unspecified gastrointestinal hemorrhage type Patient Active Problem List Diagnosis H/O aortic valve replacement Hypertension Liver cirrhosis Dementia Alcoholic cirrhosis CAD (coronary artery disease) Pulmonary HTN Diastolic CHF Over-anticoagulated Acute renal failure (ARF) Anemia CRUZITO (obstructive sleep apnea) Persistent atrial fibrillation Wound of left leg Venous stasis of both lower extremities Hard of hearing Tachycardia-bradycardia syndrome Pacemaker reprogramming/check Pacemaker Dual Chamber, MRI compatible, 05/14/17 [facility] Allergies Allergen Reactions Latex Rash Diet: [x] As tolerated HEALTH SPA MANAGER may upgrade or downgrade diet as condition Indicates. [] RN may downgrade diet as indicated. Type: [x] Continue current diet of: Diet and Supplements Diet Diet fat and cholesterol modified; sodium restricted 2 gm; fat and cholesterol modified; d ental soft; thin liquids allowed; 1200 ml fluid; Effective Now Number of Occurrences: Until Specified Order Questions: Type Diet fat and cholesterol modified Sodium restictions sodium restricted 2 gm Fat or cholesterol modifications fat and cholesterol modified Texture modifications dental soft Fluid consistency modifications thin liquids allowed Fluid volume restictions 1200 ml fluid [] Other: Consistency/Precautions: [] Whole [] Thin Liquids [] Cut-up [] Lutsen Thick [] Advanced Chopped [] Honey Thickened [] Chopped [] Advanced Ground [] 1:1 feedings [] Ground/Pureed [] Other: Tube Feedings: [] PEG [] GT [] JT [] NGT [] Formula type: (Car Runner may change/substitute if indicated). [] Continuous Rate: ml/hr, infusing hrs/day [] Bolus feeds: ml every hours [] Additional water: ml every hours Respiratory: [] BiPAP at night & PRN SOB. Settings: O2 L bleed Dx: [] CPAP at night & PRN SOB. Settings: O2 L bleed Dx: [] Suction & Pulmonary toilet PRN secretion/sputum management. Dx: [] Incentive Spirometer QID and PRN while awake. Duration: Dx: [] Tracheostomy management per protocol [] Oxygen: Lpm NC/Trach [] Continuous [] NOC [] Humidified [] prn SaO2 < % [] prn SOB/dyspnea Dx: [] Other: Dx: Bladder: [x] Follow nursing protocol for recent elaine removal [] Elaine catheter managment per nursing protocol - Indication: [] Permanent [] Temporary [] Remove elaine catheter on and follow nursing protocol for recent elaine remova l. [] Straight catheter every hour(s) and record amount drain Dx: [] Bladder scan every hour(s) and straight cath for > ml Dx: [] Suprapubic catheter management Dx: Other Lines, Tubes and Drains: (to be managed by nursing protocol) [] IV access and location: [] Permanent [] Temporary: Instructions/indications for removal of IV access: [] May use Alteplase per protocol PRN occluded central venous catheter [] Colostomy [] Ileostomy [] Urostomy [] Nephrostomy [] Dialysis Access - Type & Location: [] Drains - Type & Location: [] Other: Activity/Therapies: []WBAT [] Weight Bearing Restricted (specify limb(s)): [x] PT Evaluation & Management for: debility [x] OT Evaluation & Management for: restrict ed limb [] HEALTH SPA MANAGER Evaluation &Management for: [] Other: Wound/Skin Care: [x] Follow current recommendations of the wound team for treatment. [] Follow standard nursing protocols for wound care. [] Wound Vac management per nursing protocol. Indication: Location: Settings: Change frequency: & prn [] Other: Labs/Imaging: [x] PT/INR: Frequency: every day till therapeutic then every 2 days Dx: Chronic atrial fi brillation Goal INR: 2-3 Duration of therapy: 99 years [] Fingerstick glucose checks: Dx: DM [] Other: Test/Study Needed/Frequency Diagnosis/Indication Follow up appointments and consultations: Date/Time: Dr. Date/Time I have advised this patient that he/she not use tobacco products. TB screening: Upon admission the 1st and 2nd step TST will be done as per protocol if Resid ent has no history of TB or a past positive TST. Pharmacist may substitute equivalent Rx based on facility or insurance formulary as needed unless otherwise specified by physician. Please write "RANDA" (Dispense as written) if a medi cation should not be substituted. Please make sure to write a diagnosis for ALL medications continued on transfer. Antibioti cs require a stop date. If medications do not contain a SIG, make sure doses/routes and jillian edule is included. Medication Orders New Medications Details Order Next Dose Due amiodarone 400 MG tablet Take 1 tablet by mouth 2 times daily. aka: PACERONE By: Susan Vides MD Quant: 14 tablet amiodarone 200 mg tablet Take 1 tablet by mouth Daily. aka: PACERONE Start: 05/21/2017 By: Susan Vides MD Quant: 30 tablet metoprolol succinate 25 mg 24 hr tablet Take 1 tablet by mouth Daily. aka: TOPROL-XL By: Susan Vides MD Quant: 30 tablet Changed Medications Details Order Next Dose Due albuterol 90 mcg/puff inhaler Inhale 2 puffs into the lungs 3 times daily as needed for Wheezing. What changed: Another medication with the same name was removed. Continue taking this medi cation, and follow the directions you see here. artificial tears 0.5% Soln Place 1 drop into both eyes 4 times daily as needed (for dry eyes). What changed: Another medication with the same name was removed. Continue taking this medi cation, and follow the directions you see here. aka: REFRESH PLUS atorvaSTATin 10 mg tablet Take 10 mg by mouth nightly. What changed: Another medication with the same name was removed. Continue taking this medi cation, and follow the directions you see here. aka: LIPITOR benzonatate 100 mg capsule Take 100 mg by mouth Twice daily as needed for Cough. What changed: Another medication with the same name was removed. Continue taking this medi cation, and follow the directions you see here. aka: TESSALON budesonide-formoterol 160-4.5 mcg/puff inhaler Inhale 2 puffs into the lungs 2 times daily. What changed: Another medication with the same name was removed. Continue taking this medi cation, and follow the directions you see here. aka: SYMBICORT docusate sodium 250 MG capsule Take 250 mg by mouth Daily. What changed: Another medication with the same name was removed. Continue taking this medi cation, and follow the directions you see here. aka: COLACE furosemide 40 mg tablet Take 1 tablet by mouth 2 times daily. What changed: when to take this aka: LASIX By: Susan Vides MD Quant: 60 tablet Unchanged Medications Details Order Next Dose Due donepezil 10 MG tablet Take 5 mg by mouth. aka: ARICEPT ferrous sulfate 325 mg tablet Take 325 mg by mouth daily (with breakfast). Patient takes three times weekly on Sat, Sat, Sat guaiFENesin-codeine 100-10 mg/5 mL liquid Take 5 mLs by mouth every 6 hours as needed for Cough. aka: ROBITUSSIN AC levothyroxine 25 mcg tablet Take 25 mcg by mouth every morning (before breakfast). aka: SYNTHROID, LEVOTHROID lisinopril 10 mg tablet Take 10 mg by mouth Daily. aka: PRINIVIL, ZESTRIL nitroglycerin 0.[address] 1 tablet under the tongue every 5 minutes as needed for chest pain, up to 3 doses in 15 minutes - take blood pressure first - call 911 for unrelieved chest pain aka: NITROSTAT nystatin cream Apply topically 3 times daily as needed (for fungal infection). aka: MYCOSTATIN potassium chloride 10 MEQ ER tablet Take 10 mEq by mouth Daily. aka: KLOR-CON skin emollient cream Apply topically. traZODone 50 mg tablet Take 50 mg by mouth nightly as needed for Sleep. aka: DESYREL warfarin 2 mg tablet Take 2 mg by mouth Once a week. Every Saturday aka: COUMADIN warfarin 3 MG tablet Take 3 mg by mouth Once a week. Every Saturday aka: COUMADIN warfarin 4 MG tablet Take 4 mg by mouth Daily. Every Saturday, Saturday, Saturday, , and Saturday aka: COUMADIN Discontinued Medications cyanocobalamin 1000 MCG tablet aka: VITAMIN B-12 desonide 0.05% cream aka: DESOWEN fenofibrate 145 mg tablet aka: TRICOR HYDROcodone-acetaminophen 5-325 mg per tablet aka: NORCO metOLazone 2.5 mg tablet aka: Susan SAWYER MD, certify that post hospital group home care is medically nece ssary on a continuing basis for any of the conditions for which he/she received care during this hospitalization. Check one: [x] Skilled [] Intermediate Additional Orders/Instructions Physician's signature: Susan Jarvis MD05/16/2017 14:20 [facility] USE ONLY: [] Admitting orders verbally reviewed with Admitting Physician, modified where appropriate, and approved. Verbal Order from Date: Time: _ RN name: RN signature: [] Admitting orders reviewed, modified where appropriate, and approved. Physician's signature: Date: Time: lan of Care - Emily Michel RN - 05/16/2017 2:10 PM PDTProblem: Patient Care Overview (Adult) Goal: Care Team Goals & Evaluation PROBLEM-RELATED GOALS: 1. Jacklyn will have breath sounds consistent with baseline function throughout stay and rev erse airway bronchospasm when indicated. Reevaluate goal by 05/19/17. 2. Jacklyn will be free from falls by 05/14/17 3. Jacklyn will have adequate pain control 12/28 by 05/14/17 4. Jacklyn will have HR less than 100 by 05/14/2017 5. Jacklyn will maintain and improve skin integrity by 05/14/17. 6. Jacklyn will amb with FWW and SBA Without reporting SOB by 05/14/17 STRATEGY TO ACHIEVE GOALS: 1. Administer respiratory medications as ordered and adjust with use of respiratory protoco ls. 2. Fall risk precautions in place, bed alarm activated, call light within reach, hourly rou nds. 3. Provide RX per order, reposition Q2 hours, provide rest periods, monitor pain. 4. Monitor telemetry, administer rate control medications as ordered. Avoid fluid overload, monitor I and O. 5. Provide proper skin wound treatment and dressing change, provide assist with transfers, provide padded protectant's on bony extremities. 6. Pt to amb with nursing and PT. RESTRAINT-RELATED GOALS: STRATEGIES TO ACHIEVE RESTRAINT GOALS: Outcome: Adequate for Discharge Date Met: 05/16/17 Goal Evaluation: Monitor SR with frequently atrial paced rhythm. Elaine d/c'd this morning. Voided 75 ml t his afternoon plus incontinent a large amount. PVR 0 ml. lan of Reena - Velia Saul, PT - 05/16/2017 11:55 AM PDT Problem: Patient Care Overview (Adult) Goal: Care Team Goals & Evaluation PROBLEM-RELATED GOALS: 1. Jacklyn will have breath sounds consistent with baseline function throughout stay and rev erse airway bronchospasm when indicated. Reevaluate goal by 05/19/17. 2. Jacklyn will be free from falls by 05/14/17 3. Jacklyn will have adequate pain control 12/28 by 05/14/17 4. Jacklyn will have HR less than 100 by 05/14/2017 5. Jacklyn will maintain and improve skin integrity by 05/14/17. 6. Jacklyn will amb with FWW and SBA Without reporting SOB by 05/14/17 STRATEGY TO ACHIEVE GOALS: 1. Administer respiratory medications as ordered and adjust with use of respiratory protoco ls. 2. Fall risk precautions in place, bed alarm activated, call light within reach, hourly rou nds. 3. Provide RX per order, reposition Q2 hours, provide rest periods, monitor pain. 4. Monitor telemetry, administer rate control medications as ordered. Avoid fluid overload, monitor I and O. 5. Provide proper skin wound treatment and dressing change, provide assist with transfers, provide padded protectant's on bony extremities. 6. Pt to amb with nursing and PT. RESTRAINT-RELATED GOALS: STRATEGIES TO ACHIEVE RESTRAINT GOALS: Outcome: Improving Physical Therapy Plan of Care Treatment Note Summary: . Jacklyn has been participating in physical therapy for treatment of impaired mob ility. Emphasis of session included therex for increased activity tolerance and increasing standing tolerance. Patient still with fatigue during short duration standing. With short duration quick leg kicks remains incredibly fatigued. Patient demonstrates progress towards functional goals as evidenced by ease of transfer. Remaining barriers to discharge and fun ctional limitations include inability to ambulate functional distance, need for assist durin g performing ADLs. Jacklyn will benefit from continued therapeutic intervention to address ongoing impairments and increase safety and independence with activities necessary for safe discharge. Refer be low for specific details regarding mobility. Physical Therapy Discharge Recommendations are: Recommended discharge disposition: group home facility Post discharge physical therapy recommendation: will benefit from structured setting, ongo ing low intensity therapy Equipment Recommendations: 2 wheeled walker (FWW) Planned Interventions: balance training, gait training, strengthening Recommended Frequency: daily Patient Status/Goals: Reflects last filed data and may be from multiple contributors. Gait SOB with standing balance, declined further ambulation Transfers pt with need for continued focus on task, need for assist for safety Bed-Chair, Level of Walsh: contact guard assist, set up required, verbal cues requir ed Chair-Bed, Level of Walsh: contact guard assist, set up required, verbal cues requir ed [id number], Assistive Device: 2 wheeled walker (FWW) Sit-Stand, Level of Walsh: contact guard assist, verbal cues required Stand-Sit, Level of Walsh: contact guard assist, verbal cues required [id number], Assistive Device: 2 wheeled walker (FWW) Safety Issues: weight-shifting ability decreased Impairments: pain, strength decreased Bed Mobility increased time and need for frequent redirection Assistive Device: bed rails Supine to Sit, Level of Walsh: contact guard assist Sit to Supine, Level of Walsh: (NT, pt left sitting in bedside chair) Therapeutic Exercise need for cues for re-direction during session Seated exercises: bilateral, long arc quads (cardio style leg kicks - simulated bicycle) Repetitions: 2x20 PT Goal Review Date Flowsheet Row Most Recent Value STG Review Date 05/19/17 at 05/14/2017 1600 Balance Standing Dynamic Goal Flowsheet Row Most Recent Value STG Status progressing at 05/16/2017 1155 STG demonstrate safe amb without loss of balance at 05/09/2017 1700 Gait Goal Flowsheet Row Most Recent Value STG Status continued at 05/16/2017 1155 STG Walsh Level modified independent, supervised at 05/09/2017 1700 STG Assistive Device 2 wheeled walker (FWW) at 05/09/2017 1700 STG Distance (feet) 50 at 05/09/2017 1700 Electronically signed by: Velia Gerard PT, 05/16/2017 11:59 lan of Care - Ana Villeda i, RN - 05/16/2017 10:32 AM PDTProblem: Discharge Planning Goal: Patient will be discharged in a safe manner Outcome: Improving This CM spoke with Elkin at [facility] this AM and she is ready to accept patient when he is medically stable and will arrange transport there for patient. She confirmed yahaira t they also have OT there to do his leg wraps. Efaxed the MD prog notes, PT OT notes, and med list to her. TN# [id number]. Manually faxed the completed PASRR to SNF. Pkt started and placed in ghost chart. Electronically signed by: Ana Dietrich RN 05/16/2017 10:27 11:14 Left message with Elkin, at [facility], letting her know that patient will be d ischarged today and would be ready this afternoon sometime. Requested a return call with pic k up time. Elkin returned call with 1430 picking tech time. Let bedside RN know. Left message with Jr Jacklyn, letting him know that his dad will be taken to the SNF today. Pkt completed with original completed PASRR, AVS, and Trazadone script. Given to screw driver operator. Fa xed SNF transfer orders to [facility] with call to Elkin.Electronically signed by: Sangita Dietrich RN 05/16/2017 15:08 lan of Care - Adonis Childers RRT - 05/16/2017 5:54 AM PDTProblem: Patient Care Overview (Adult) Goal: Care Team Goals & Evaluation PROBLEM-RELATED GOALS: 1. Jacklyn will have breath sounds consistent with baseline function throughout stay and rev erse airway bronchospasm when indicated. Reevaluate goal by 05/19/17. 2. Jacklyn will be free from falls by 05/14/17 3. Jacklyn will have adequate pain control 12/28 by 05/14/17 4. Jacklyn will have HR less than 100 by 05/14/2017 5. Jacklyn will maintain and improve skin integrity by 05/14/17. 6. Jacklyn will amb with FWW and SBA Without reporting SOB by 05/14/17 STRATEGY TO ACHIEVE GOALS: 1. Administer respiratory medications as ordered and adjust with use of respiratory protoco ls. 2. Fall risk precautions in place, bed alarm activated, call light within reach, hourly rou nds. 3. Provide RX per order, reposition Q2 hours, provide rest periods, monitor pain. 4. Monitor telemetry, administer rate control medications as ordered. Avoid fluid overload, monitor I and O. 5. Provide proper skin wound treatment and dressing change, provide assist with transfers, provide padded protectant's on bony extremities. 6. Pt to amb with nursing and PT. RESTRAINT-RELATED GOALS: STRATEGIES TO ACHIEVE RESTRAINT GOALS: Goal Evaluation: Jacklyn takes his treatments well. SpO2: 96 % on 1 liter/minute, BS expiratory wheezes/fine crackles. lan of [facility] Nanda gandara RN - 05/16/2017 5:04 AM PDTProblem: Patient Care Overview (Adult) Goal: Care Team Goals & Evaluation PROBLEM-RELATED GOALS: 1. Jacklyn will have breath sounds consistent with baseline function throughout stay and rev erse airway bronchospasm when indicated. Reevaluate goal by 05/19/17. 2. Jacklyn will be free from falls by 05/14/17 3. Jacklyn will have adequate pain control 12/28 by 05/14/17 4. Jacklyn will have HR less than 100 by 05/14/2017 5. Jacklyn will maintain and improve skin integrity by 05/14/17. 6. Jacklyn will amb with FWW and SBA Without reporting SOB by 05/14/17 STRATEGY TO ACHIEVE GOALS: 1. Administer respiratory medications as ordered and adjust with use of respiratory protoco ls. 2. Fall risk precautions in place, bed alarm activated, call light within reach, hourly rou nds. 3. Provide RX per order, reposition Q2 hours, provide rest periods, monitor pain. 4. Monitor telemetry, administer rate control medications as ordered. Avoid fluid overload, monitor I and O. 5. Provide proper skin wound treatment and dressing change, provide assist with transfers, provide padded protectant's on bony extremities. 6. Pt to amb with nursing and PT. RESTRAINT-RELATED GOALS: STRATEGIES TO ACHIEVE RESTRAINT GOALS: Outcome: Improving Goal Evaluation: VSS overnight. Disoriented to time/situation, but cooperative. Lungs with crackles in the bases and exp. Wheezes with any exertion.Mostly A- paced with PAC's/PVC's, and some V- pac ed beats. Pacemaker insertion site with large amount of bruised, no swelling noted. Minimal pain overnight. Left arm in sling. 1 person assist with ambulation and transfers. lan of [facility] - Rob Dietrich RN - 05/15/2017 5:55 PM PDTProblem: Discharge Planning Goal: Patient will be discharged in a safe manner Outcome: Improving This CM met with patient's son, Jacklyn Joiner, today. Kelly from the [facility], p[facility] , faxed the paperwork to Jacklyn Kelly' email per his request; this needs to be comple johnny to get his father on the list for this facility. Encouraged Jacklyn Joiner to get this applic ation done as soon as possible or go visit them and they would help him do the application t o get the process started. 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 Jacklyn Joiner stated that his father will not go back to [facility], so reassured him yahaira t the business continuity planner at [facility] would help find a long lines operator place for him since he will need to have full care for him to be safe. He understood this need. He appreciated the visit. Electronically signed by: Ana Dietrich RN 05/15/2017 17:55 lan of Care - Velia Gerard, PT - 05/15/2017 1:50 PM PDTFormatting of this note might be different from the o riginal. Problem: Patient Care Overview (Adult) Goal: Care Team Goals & Evaluation PROBLEM-RELATED GOALS: 1. Jacklyn will have breath sounds consistent with baseline function throughout stay and rev erse airway bronchospasm when indicated. Reevaluate goal by 05/19/17. 2. Jacklyn will be free from falls by 05/14/17 3. Jacklyn will have adequate pain control 12/28 by 05/14/17 4. Jacklyn will have HR less than 100 by 05/14/2017 5. Jacklyn will maintain and improve skin integrity by 05/14/17. 6. Jacklyn will amb with FWW and SBA Without reporting SOB by 05/14/17 STRATEGY TO ACHIEVE GOALS: 1. Administer respiratory medications as ordered and adjust with use of respiratory protoco ls. 2. Fall risk precautions in place, bed alarm activated, call light within reach, hourly rou nds. 3. Provide RX per order, reposition Q2 hours, provide rest periods, monitor pain. 4. Monitor telemetry, administer rate control medications as ordered. Avoid fluid overload, monitor I and O. 5. Provide proper skin wound treatment and dressing change, provide assist with transfers, provide padded protectant's on bony extremities. 6. Pt to amb with nursing and PT. RESTRAINT-RELATED GOALS: STRATEGIES TO ACHIEVE RESTRAINT GOALS: Outcome: Improving Physical Therapy Plan of Care Treatment Note Summary: Jacklyn has been participating in physical therapy for treatment of impaired mobil ity. Emphasis of session included therex for activity tolerance and pregait activity. Mary castillo ornbasil during session with c/o of nursing staff but with inability to state timelines an d directing pervious grievances on current nurse. Patient continued to require re-direction for safety. Patient continuously reported "I could run if you needed me to" or "I could ge t up and walk if you want me to" and then when asked to perform ambulation activity patient would report being unable due to fatigue. Patient demonstrates progress towards functional goals as evidenced by increased activity tolerance with seated therex. Remaining barriers t o discharge and functional limitations include patients inability to perform activity, decre ased activity tolerance, cognitive function needing continued monitoring due to repeating se lf. Jacklyn will benefit from continued therapeutic intervention to address ongoing impairments and increase safety and independence with activities necessary for safe discharge. Refer be low for specific details regarding mobility. Physical Therapy Discharge Recommendations are: Recommended discharge disposition: group home facility Post discharge physical therapy recommendation: will benefit from structured setting, ongo ing low intensity therapy Equipment Recommendations: 2 wheeled walker (FWW) Planned Interventions: balance training, gait training, strengthening Recommended Frequency: daily Patient Status/Goals: Reflects last filed data and may be from multiple contributors. Gait pt SOB with short duration marching in standing as pregait exercise Transfers need for time and increased need for re-direction and attending to task Bed-Chair, Level of Walsh: contact guard assist, set up required, verbal cues requir ed Chair-Bed, Level of Walsh: contact guard assist, set up required, verbal cues requir ed [id number], Assistive Device: 2 wheeled walker (FWW) Sit-Stand, Level of Walsh: contact guard assist, verbal cues required Stand-Sit, Level of Walsh: contact guard assist, verbal cues required [id number], Assistive Device: 2 wheeled walker (FWW) Safety Issues: weight-shifting ability decreased Impairments: pain, strength decreased Bed Mobility increased time and need for frequent redirection Assistive Device: bed rails Supine to Sit, Level of Walsh: contact guard assist Sit to Supine, Level of Walsh: (NT, pt left sitting in bedside chair) Therapeutic Exercise Seated exercises: bilateral, ankle pumps, long arc quads, hip abduction/adduction, marching Repetitions: 2x10 Standing exercises: marching Repetitions: x10 PT Goal Review Date Flowsheet Row Most Recent Value STG Review Date 05/19/17 at 05/14/2017 1600 Balance Standing Dynamic Goal Flowsheet Row Most Recent Value STG Status progressing at 05/15/2017 1315 STG demonstrate safe amb without loss of balance at 05/09/2017 1700 Gait Goal Flowsheet Row Most Recent Value STG Status continued at 05/15/2017 1315 STG Walsh Level modified independent, supervised at 05/09/2017 1700 STG Assistive Device 2 wheeled walker (FWW) at 05/09/2017 1700 STG Distance (feet) 50 at 05/09/2017 1700 Electronically signed by: Velia Gerard, PT, 05/15/2017 15:37 lan of Care - Str uck, Erin Gandara, OT - 05/15/2017 9:44 AM PDTProblem: Patient Care Overview (Adult) Goal: Care Team Goals & Evaluation PROBLEM-RELATED GOALS: 1. Jacklyn will have breath sounds consistent with baseline function throughout stay and rev erse airway bronchospasm when indicated. Reevaluate goal by 05/19/17. 2. Jacklyn will be free from falls by 05/14/17 3. Jacklyn will have adequate pain control 10 by 05/14/17 4. Jacklyn will have HR less than 100 by 05/14/2017 5. Jacklyn will maintain and improve skin integrity by 05/14/17. 6. Jacklyn will amb with FWW and SBA Without reporting SOB by 05/14/17 STRATEGY TO ACHIEVE GOALS: 1. Administer respiratory medications as ordered and adjust with use of respiratory protoco ls. 2. Fall risk precautions in place, bed alarm activated, call light within reach, hourly rou nds. 3. Provide RX per order, reposition Q2 hours, provide rest periods, monitor pain. 4. Monitor telemetry, administer rate control medications as ordered. Avoid fluid overload, monitor I and O. 5. Provide proper skin wound treatment and dressing change, provide assist with transfers, provide padded protectant's on bony extremities. 6. Pt to amb with nursing and PT. RESTRAINT-RELATED GOALS: STRATEGIES TO ACHIEVE RESTRAINT GOALS: Occupational Therapy Pt R LE compression wrap intact, will change Saturday, 05/17 as per plan. lan of Care - Sumeet Mccullough Chaplain - 05/15/2017 9:18 AM PDT Spiritual Care Jacklyn Siddiqi is a 81 y.o. male who is admitted for Gastrointestinal hemorrhage, unspecified gastrointestinal hemorrhage type [K92.2]. I had a short visit with patient. He was upbeat and looking forward to go to a rehab facil [facility] in the future. lan of Care - Maria Antonia Bullard, PAINT MIXER HAND - 05/15/2017 8:43 AM PDTProblem: Patient Care Overview (Adult) Goal: Care Team Goals & Evaluation PROBLEM-RELATED GOALS: 1. Jacklyn will have breath sounds consistent with baseline function throughout stay and rev erse airway bronchospasm when indicated. Reevaluate goal by 05/19/17. 2. Jacklyn will be free from falls by 05/14/17 3. Jacklyn will have adequate pain control 12/28 by 05/14/17 4. Jacklyn will have HR less than 100 by 05/14/2017 5. Jacklyn will maintain and improve skin integrity by 05/14/17. 6. Jacklyn will amb with FWW and SBA Without reporting SOB by 05/14/17 STRATEGY TO ACHIEVE GOALS: 1. Administer respiratory medications as ordered and adjust with use of respiratory protoco ls. 2. Fall risk precautions in place, bed alarm activated, call light within reach, hourly rou nds. 3. Provide RX per order, reposition Q2 hours, provide rest periods, monitor pain. 4. Monitor telemetry, administer rate control medications as ordered. Avoid fluid overload, monitor I and O. 5. Provide proper skin wound treatment and dressing change, provide assist with transfers, provide padded protectant's on bony extremities. 6. Pt to amb with nursing and PT. RESTRAINT-RELATED GOALS: STRATEGIES TO ACHIEVE RESTRAINT GOALS: Goal Evaluation: Pt is on room air with a SpO2 of 96 % and a heart rate of 79. Breath sounds are crackles bialteral bases Pt has a good, nonproductive cough. Pt has a pattern irregular, dyspnea on exertion, prolo nged expiratory phase. Forced upper airway wheeze does not change with treatment Patient not on respiratory protocols, MD directing care Did not require oxygen last night lan of [facility] - Nanda Odom RN - 05/15/2017 5:41 AM PDTProblem: Patient Care Overview (Adult) Goal: Care Team Goals & Evaluation PROBLEM-RELATED GOALS: 1. Jacklyn will have breath sounds consistent with baseline function throughout stay and rev erse airway bronchospasm when indicated. Reevaluate goal by 05/19/17. 2. Jacklyn will be free from falls by 05/14/17 3. Jacklyn will have adequate pain control 12/28 by 05/14/17 4. Jacklyn will have HR less than 100 by 05/14/2017 5. Jacklyn will maintain and improve skin integrity by 05/14/17. 6. Jacklyn will amb with FWW and SBA Without reporting SOB by 05/14/17 STRATEGY TO ACHIEVE GOALS: 1. Administer respiratory medications as ordered and adjust with use of respiratory protoco ls. 2. Fall risk precautions in place, bed alarm activated, call light within reach, hourly rou nds. 3. Provide RX per order, reposition Q2 hours, provide rest periods, monitor pain. 4. Monitor telemetry, administer rate control medications as ordered. Avoid fluid overload, monitor I and O. 5. Provide proper skin wound treatment and dressing change, provide assist with transfers, provide padded protectant's on bony extremities. 6. Pt to amb with nursing and PT. RESTRAINT-RELATED GOALS: STRATEGIES TO ACHIEVE RESTRAINT GOALS: Outcome: Improving Goal Evaluation: VSS overnight. Disoriented to situation at times, but cooperative. Permanent pacemaker cabrera mitchell yesterday, telemetry showing mostly A- paced with PAC's, and some SR. Pacemaker insertio n site moderately bruised, no swelling noted. Pt denies pain. Left arm in sling. Requires a ssistance with ambulation and transfers. lan of Rob Crocker RN - 05/14/2017 6:04 PM PDTProblem: Discharge Planning Goal: Patient will be discharged in a safe manner This CM met with patient per his request about his discharge plan. Let him know that [facility] has accepted him and he was aware of this plan. This CM called his daughter, Cassandra, since her name was in his chart, and she stated that she rescinded and is no longer his MPOA. This was corrected in the demographics. She reports that he has been non-compliant with everything and that there is huge dysfuncti on in the family. Also, called Chris, his son, name also in the chart, and he did not even know that his [facility] was in the hospital again. This CM was trying to get some help as to where patient was going to go after his rehab, si txe patient stated that his other son, Jacklyn Siddiqi Jr, is currently moving out all his belo ngings out of [facility] in [place], since he is too high level of care for them any more. Spoke with Jacklyn Joiner, and put his phone numbers in the chart, OK with patient, since krystal is the one who transports him to all his appts, etc. He stated that Jacklyn Joiner, is his POA. Later this afternoon evening, patient [facility]. Let patient know that this will have to be done in the AM since they are already closed today. CM will need to call the [facility] in AM to see if patient is eligible for transfer to the [facility].Electronically signed by: Ana Dietrich RN 05/14/2017 18:04 lan of Care - Aleah, Erika Joya PAINT MIXER HAND - 05/14/2017 5:40 PM PDTProblem: Patient Care Overview (Adult) Goal: Care Team Goals & Evaluation PROBLEM-RELATED GOALS: 1. Jacklyn will have breath sounds consistent with baseline function throughout stay and rev erse airway bronchospasm when indicated. Reevaluate goal by 05/19/17. 2. Jacklyn will be free from falls by 05/14/17 3. Jacklyn will have adequate pain control 12/28 by 05/14/17 4. Jacklyn will have HR less than 100 by 05/14/2017 5. Jacklyn will maintain and improve skin integrity by 05/14/17. 6. Jacklyn will amb with FWW and SBA Without reporting SOB by 05/14/17 STRATEGY TO ACHIEVE GOALS: 1. Administer respiratory medications as ordered and adjust with use of respiratory protoco ls. 2. Fall risk precautions in place, bed alarm activated, call light within reach, hourly rou nds. 3. Provide RX per order, reposition Q2 hours, provide rest periods, monitor pain. 4. Monitor telemetry, administer rate control medications as ordered. Avoid fluid overload, monitor I and O. 5. Provide proper skin wound treatment and dressing change, provide assist with transfers, provide padded protectant's on bony extremities. 6. Pt to amb with nursing and PT. RESTRAINT-RELATED GOALS: STRATEGIES TO ACHIEVE RESTRAINT GOALS: Goal Evaluation: Pt is on room air with a SpO2 of 98 % and a heart rate of 63. Breath sounds are Decreased Pt has a good, nonproductive cough. Pt has a pattern irregular, prolonged expiratory phase . Requires 2 lpm at [facility] lan of Care - Emily Price RN - 05/14/2017 5:29 PM PDTProblem: Patient Care Overview (Adult) Goal: Care Team Goals & Evaluation PROBLEM-RELATED GOALS: 1. Jacklyn will have breath sounds consistent with baseline function throughout stay and rev erse airway bronchospasm when indicated. Reevaluate goal by 05/14/17. 2. Jacklyn will be free from falls by 05/14/17 3. Jacklyn will have adequate pain control 12/28 by 05/14/17 4. Jacklyn will have HR less than 100 by 05/14/2017 5. Jacklyn will maintain and improve skin integrity by 05/14/17. 6. Jacklyn will amb with FWW and SBA Without reporting SOB by 05/14/17 STRATEGY TO ACHIEVE GOALS: 1. Administer respiratory medications as ordered and adjust with use of respiratory protoco ls. 2. Fall risk precautions in place, bed alarm activated, call light within reach, hourly rou nds. 3. Provide RX per order, reposition Q2 hours, provide rest periods, monitor pain. 4. Monitor telemetry, administer rate control medications as ordered. Avoid fluid overload, monitor I and O. 5. Provide proper skin wound treatment and dressing change, provide assist with transfers, provide padded protectant's on bony extremities. 6. Pt to amb with nursing and PT. RESTRAINT-RELATED GOALS: STRATEGIES TO ACHIEVE RESTRAINT GOALS: Outcome: Improving Goal Evaluation: Permanent pacemaker placed today. Monitor mostly A paced, some SR, few nonsustained PSVT. Left subclavian site moderately bruised, no swelling noted. Pt denies pain. Left arm in sl ing. Up with assist of one lan of Care - Velia Saul, PT - 05/14/2017 4:24 PM PDT Problem: Patient Care Overview (Adult) Goal: Care Team Goals & Evaluation PROBLEM-RELATED GOALS: 1. Jacklyn will have breath sounds consistent with baseline function throughout stay and rev erse airway bronchospasm when indicated. Reevaluate goal by 05/14/17. 2. Jacklyn will be free from falls by 05/14/17 3. Jacklyn will have adequate pain control 12/28 by 05/14/17 4. Jacklyn will have HR less than 100 by 05/14/2017 5. Jacklyn will maintain and improve skin integrity by 05/14/17. 6. Jacklyn will amb with FWW and SBA Without reporting SOB by 05/14/17 STRATEGY TO ACHIEVE GOALS: 1. Administer respiratory medications as ordered and adjust with use of respiratory protoco ls. 2. Fall risk precautions in place, bed alarm activated, call light within reach, hourly rou nds. 3. Provide RX per order, reposition Q2 hours, provide rest periods, monitor pain. 4. Monitor telemetry, administer rate control medications as ordered. Avoid fluid overload, monitor I and O. 5. Provide proper skin wound treatment and dressing change, provide assist with transfers, provide padded protectant's on bony extremities. 6. Pt to amb with nursing and PT. RESTRAINT-RELATED GOALS: STRATEGIES TO ACHIEVE RESTRAINT GOALS: Outcome: Improving Physical Therapy Plan of Care Treatment Note Summary: . Jacklyn has been participating in physical therapy for treatment of impaired mob ility. Emphasis of session included therex and transfer to bed. Patient required frequent redirection due to multiple complaints of how his children have treated him in the past and how he would like to be able to go home. Patient then perseverated on the doctor who asked if he would like to pull the plug on his . Patient retold the same stories multiple farhan es throughout session. Patient demonstrates progress towards functional goals as evidenced by ability and willingness to transfer from bed to chair. Remaining barriers to discharge a nd functional limitations include not yet walking functional distances, need for constant montoya pervision for safety, and cognitive deficits. Jacklyn will benefit from continued therapeutic intervention to address ongoing impairments and increase safety and independence with activities necessary for safe discharge. Refer be low for specific details regarding mobility. Physical Therapy Discharge Recommendations are: Recommended discharge disposition: group home facility Post discharge physical therapy recommendation: will benefit from structured setting, ongo ing low intensity therapy Equipment Recommendations: 2 wheeled walker (FWW) Planned Interventions: balance training, gait training, strengthening Recommended Frequency: daily Patient Status/Goals: Reflects last filed data and may be from multiple contributors. Gait side-stepping for transfer from bed to chair Transfers increased need for time, stand-step transfer to bedside chair with need for cues for focus and re-direction d/t perseverating over poor treatment from his children Bed-Chair, Level of Walsh: contact guard assist, set up required, verbal cues requir ed [id number]-Hib, Assistive Device: 2 wheeled walker (FWW) Sit-Stand, Level of Walsh: contact guard assist, verbal cues required Stand-Sit, Level of Walsh: contact guard assist, verbal cues required [id number], Assistive Device: 2 wheeled walker (FWW) Safety Issues: weight-shifting ability decreased Impairments: pain, strength decreased Bed Mobility increased time and need for frequent redirection Assistive Device: bed rails Supine to Sit, Level of Walsh: contact guard assist Sit to Supine, Level of Walsh: (NT, pt left sitting in bedside chair) Therapeutic Exercise need for cues for re-direction and for attention on task Seated exercises: bilateral, ankle pumps, long arc quads, hip abduction/adduction, marching Repetitions: 2x10 Functional Endurance impaired - SOB with limited activity PT Goal Review Date Flowsheet Row Most Recent Value STG Review Date 05/19/17 at 05/14/2017 1600 Balance Standing Dynamic Goal Flowsheet Row Most Recent Value STG Status progressing at 05/14/2017 1600 STG demonstrate safe amb without loss of balance at 05/09/2017 1700 Gait Goal Flowsheet Row Most Recent Value STG Status continued at 05/14/2017 1600 STG Walsh Level modified independent, supervised at 05/09/2017 1700 STG Assistive Device 2 wheeled walker (FWW) at 05/09/2017 1700 [facility] Distance (feet) 50 at 05/09/2017 1700 Electronically signed by: Velia Gerard, PT, 05/14/2017 16:19 lan of Care - Airam Cuevas, OT - 05/14/2017 11:48 AM PDT Problem: Patient Care Overview (Adult) Goal: Care Team Goals & Evaluation PROBLEM-RELATED GOALS: 1. Jacklyn will have breath sounds consistent with baseline function throughout stay and rev erse airway bronchospasm when indicated. Reevaluate goal by 05/14/17. 2. Jacklyn will be free from falls by 05/14/17 3. Jacklyn will have adequate pain control 12/28 by 05/14/17 4. Jacklyn will have HR less than 100 by 05/14/2017 5. Jacklyn will maintain and improve skin integrity by 05/14/17. 6. Jacklyn will amb with FWW and SBA Without reporting SOB by 05/14/17 STRATEGY TO ACHIEVE GOALS: 1. Administer respiratory medications as ordered and adjust with use of respiratory protoco ls. 2. Fall risk precautions in place, bed alarm activated, call light within reach, hourly rou nds. 3. Provide RX per order, reposition Q2 hours, provide rest periods, monitor pain. 4. Monitor telemetry, administer rate control medications as ordered. Avoid fluid overload, monitor I and O. 5. Provide proper skin wound treatment and dressing change, provide assist with transfers, provide padded protectant's on bony extremities. 6. Pt to amb with nursing and PT. RESTRAINT-RELATED GOALS: STRATEGIES TO ACHIEVE RESTRAINT GOALS: Outcome: Improving Occupational Therapy Plan of Care Treatment Note Summary: Patient agreeable to treatment. Patient lying in bed following permanent pace timothy er placement. OT checked with nursing prior to treatment. Patient's dressing looks good with no signs of redness or discomfort from patient. OT will change tomorrow 05/15/17. Patient re questing to use commode. OT and PAYROLL PROFESSIONAL assisted patient with functional t/f and limited use of LUE due to pacemaker precautions. Patient SBA-CGA x 1 for precautions. Occupational Therapy Discharge Recommendations are: Recommended discharge disposition: assisted living Post discharge occupational therapy recommendation: (TBD) Equipment Recommendations: none Planned Interventions:other (see comments), ADL retraining, strengthening Recommended Frequency: other (see comments) (2x/wk and PRN) Patient Status/Goals: Reflects last filed data and may be from multiple contributors. Cognitive anxious during session Bed Mobility Assistive Device: bed rails Supine to Sit, Level of Walsh: contact guard assist Sit to Supine, Level of Walsh: contact guard assist Transfers Sit-Stand, Level of Walsh: stand by assist, contact guard assist Stand-Sit, Level of Walsh: stand by assist, contact guard assist Bwu-Lmori-Plg, Assistive Device: 2 wheeled walker (FWW) Toilet, Level of Walsh: contact guard assist, stand by assist Toilet, Assistive Device: 2 wheeled walker (FWW) Impairments: pain, strength decreased OT Goal Review Date Flowsheet Row Most Recent Value STG Review Date 05/16/17 at 05/09/2017 1604 LB Dressing Goal Flowsheet Row Most Recent Value STG Status new at 05/14/2017 1045 STG Walsh Level modified independent at 05/14/2017 1045 Toilet Transfer Goal Flowsheet Row Most Recent Value STG Status new at 05/14/2017 1045 STG Walsh Level supervised at 05/14/2017 1045 STG Assistive Device 2 wheeled walker (FWW) at 05/14/2017 1045 Additional Goals #1 OT Flowsheet Row Most Recent Value STG Status continued, progressing at 05/14/2017 1045 STG pt will tolerate compression wrapping 3-4 days when dressing will be changed as well a t 05/13/2017 1130 Additional Goals #2 OT Flowsheet Row Most Recent Value STG Status continued, progressing at 05/14/2017 1045 STG wound will show progression towards healing at 05/13/2017 1130 Electronically signed by: Airam Benito OT, 05/14/2017 11:47 lan of Reena - Joanna Lock RN - 05/14/2017 4:51 AM PDTHR regular, rates 70's, lungs are coarse, dimin ished. No cough, sl SOB w any exertion. No new skin tears, drsgs intact to current ones. Sle pt off and on, NPO for planned pacemaker placement this morning. lan of Care - Sumeet Jeronimo RRT - 2016 3:28 AM PDTProblem: Patient Care Overview (Adult) Goal: Care Team Goals & Evaluation PROBLEM-RELATED GOALS: 1. Jacklyn will have breath sounds consistent with baseline function throughout stay and rev erse airway bronchospasm when indicated. Reevaluate goal by 05/14/17. 2. Jacklyn will be free from falls by 05/14/17 3. Jacklyn will have adequate pain control 12/28 by 05/14/17 4. Jacklyn will have HR less than 100 by 05/14/2017 5. Jacklyn will maintain and improve skin integrity by 05/14/17. 6. Jacklyn will amb with FWW and SBA Without reporting SOB by 05/14/17 STRATEGY TO ACHIEVE GOALS: 1. Administer respiratory medications as ordered and adjust with use of respiratory protoco ls. 2. Fall risk precautions in place, bed alarm activated, call light within reach, hourly rou nds. 3. Provide RX per order, reposition Q2 hours, provide rest periods, monitor pain. 4. Monitor telemetry, administer rate control medications as ordered. Avoid fluid overload, monitor I and O. 5. Provide proper skin wound treatment and dressing change, provide assist with transfers, provide padded protectant's on bony extremities. 6. Pt to amb with nursing and PT. RESTRAINT-RELATED GOALS: STRATEGIES TO ACHIEVE RESTRAINT GOALS: Outcome: Unchanged Goal Evaluation: Overnight, Jacklyn SpO2 100 % on nasal cannula at flow rate 2 LPM. Nebs given as scheduled, no SOB reported. Intermittent expiratory wheezing relieved with SAB A. RT will continue to monitor and treat as indicated. lan of Reena - Sumeet Mccullough Chaplain - 05/13/2017 8:57 PM PDT Spiritual Care Jacklyn Siddiqi is a 81 y.o. male who is admitted for Gastrointestinal hemorrhage, unspecified gastrointestinal hemorrhage type [K92.2]. Spiritual Evaluation: Patient is a "Bible Believing Muslim" loves to pray and read the "Word." Spiritual Intervention: Listened to the patient's concerns about the upcoming procedure. Active Listening, past oral presence, and prayer was offered. Spiritual Outcomes: Patient appreciates certified bench jeweler technician's prayer, seems less apprehensive. Spiritual Goals / Follow-up: Will see the patient as requested. If there are any other spiritual care issues that arise, please contact certified bench jeweler technician. lan of Care - Kristina Ayers, PAINT MIXER HAND - 05/13/2017 3:57 PM PDTProblem: Patient Care Overview (Adult) Goal: Care Team Goals & Evaluation PROBLEM-RELATED GOALS: 1. Jacklyn will have breath sounds consistent with baseline function throughout stay and rev erse airway bronchospasm when indicated. Reevaluate goal by 05/14/17. 2. Jacklyn will be free from falls by 05/14/17 3. Jacklyn will have adequate pain control 12/28 by 05/14/17 4. Jacklyn will have HR less than 100 by 05/14/2017 5. Jacklyn will maintain and improve skin integrity by 05/14/17. 6. Jacklyn will amb with FWW and SBA Without reporting SOB by 05/14/17 STRATEGY TO ACHIEVE GOALS: 1. Administer respiratory medications as ordered and adjust with use of respiratory protoco ls. 2. Fall risk precautions in place, bed alarm activated, call light within reach, hourly rou nds. 3. Provide RX per order, reposition Q2 hours, provide rest periods, monitor pain. 4. Monitor telemetry, administer rate control medications as ordered. Avoid fluid overload, monitor I and O. 5. Provide proper skin wound treatment and dressing change, provide assist with transfers, provide padded protectant's on bony extremities. 6. Pt to amb with nursing and PT. RESTRAINT-RELATED GOALS: STRATEGIES TO ACHIEVE RESTRAINT GOALS: Outcome: Improving Goal Evaluation: SpO2 98 % on room air Breath sounds are dim bilat. Treatments given as ordered. Tolerate s treatments well. lan of Care - Velia Carlton, PT - 05/13/2017 1:40 PM PDTFormatting of this note might be different from t he original. Problem: Patient Care Overview (Adult) Goal: Care Team Goals & Evaluation PROBLEM-RELATED GOALS: 1. Jacklyn will have breath sounds consistent with baseline function throughout stay and rev erse airway bronchospasm when indicated. Reevaluate goal by 05/14/17. 2. Jacklyn will be free from falls by 05/14/17 3. Jacklyn will have adequate pain control 12/28 by 05/14/17 4. Jacklyn will have HR less than 100 by 05/14/2017 5. Jacklyn will maintain and improve skin integrity by 05/14/17. 6. Jacklyn will amb with FWW and SBA Without reporting SOB by 05/14/17 STRATEGY TO ACHIEVE GOALS: 1. Administer respiratory medications as ordered and adjust with use of respiratory protoco ls. 2. Fall risk precautions in place, bed alarm activated, call light within reach, hourly rou nds. 3. Provide RX per order, reposition Q2 hours, provide rest periods, monitor pain. 4. Monitor telemetry, administer rate control medications as ordered. Avoid fluid overload, monitor I and O. 5. Provide proper skin wound treatment and dressing change, provide assist with transfers, provide padded protectant's on bony extremities. 6. Pt to amb with nursing and PT. RESTRAINT-RELATED GOALS: STRATEGIES TO ACHIEVE RESTRAINT GOALS: Outcome: Improving Physical Therapy Plan of Care Treatment Note Summary: Jacklyn has been participating in physical therapy for treatment of impaired mobil ity. Emphasis of session included upright tolerance. Patient with slow transitions d/t diz ziness upon attaining sitting and attaining standing. Patient demonstrates progress towards functional goals as evidenced by activity tolerance. Remaining barriers to discharge and f unctional limitations include severely decreased activity tolerance, inability to perform ga it reliably, need for continued assist, and AMPAC score indicating continued need for therap y prior to safe return to prior living environment (likely needing SNF). Will continue to m onitor patient for evolving participation and condition for optimal discharge disposition as patient will likely require placement for ongoing therapy services prior to home discharge. Patient may benefit from stay in SNF in order to attain level closer to baseline prior to return home. Jacklyn will benefit from continued therapeutic intervention to address ongoing impairments and increase safety and independence with activities necessary for safe discharge. Refer be low for specific details regarding mobility. Physical Therapy Discharge Recommendations are: Recommended discharge disposition: group home facility Post discharge physical therapy recommendation: will benefit from structured setting, ongo ing low intensity therapy Equipment Recommendations: 2 wheeled walker (FWW) Planned Interventions: balance training, gait training, strengthening Recommended Frequency: daily Patient Status/Goals: Reflects last filed data and may be from multiple contributors. Gait side-stepping at bedside Level of Walsh: 2 person assist required Assistive Device: 2 wheeled walker (FWW) Transfers pt weak and with dizziness, need for CGA for safety due to symptoms Sit-Stand, Level of Walsh: stand by assist, contact guard assist Stand-Sit, Level of Walsh: stand by assist, contact guard assist Llo-Milli-Mxi, Assistive Device: 2 wheeled walker (FWW) Safety Issues: weight-shifting ability decreased Impairments: pain, strength decreased Bed Mobility increased time d/t fatigue Assistive Device: none Supine to Sit, Level of Walsh: contact guard assist Sit to Supine, Level of Walsh: contact guard assist Functional Endurance impaired - SOB with limited activity [facility] BASIC MOBILITY [facility] Turning over in bed: a little difficulty without assistance Sitting down /standing up from arm chair: a little difficulty without assistance Moving from supine to sitting on edge of bed: a little difficulty without assistance Moving to and from a bed to a chair : mod or max assist/a lot of help Walking in hospital room: mod or max assist/a lot of help Climbing 3-5 steps with a railing: dependent/unable TOTAL - [facility] BASIC MOBILITY : 14 Unable / dependent = 1 A lot / modA = 2 A little / Guillermo = 3 None / independent = 4 Completed the [facility] Activity Measure for Post Acute Care (-PAC) "6 Clicks" [facility] Mobility Inpatient Short Form. This version of the AM-PAC is an assessment tool used to measure a person's level of disability in performing basic mobility tasks. This patient's score indicates a performance of 61.29% impairment in the functioning of basic mobility. Raw Score - Functional Limitation % (for CMS) - "Severity Modifier" CN 6 - 100.00 CM 7 - 92.36 8 - 86.62 9 - 81.38 CL 10 - 76.75 11 - 72.57 12 - 68.66 13 - 64.91 14 - 61.29 CK 15 - 57.70 16 - 54.16 17 - 50.57 18 - 46.58 19 - 41.77 CJ 20 - 35.83 21 - 28.97 22 - 20.91 CI 23 - 11.2 CH 24 - 0.00 Predicted Discharge During Acute Hospitalization (Raw Score) Home = 20.1 With assist = 17.9 SNF = 14 IRF = 13.6 LTAC = 11.5 Balance Standing Dynamic Goal Flowsheet Row Most Recent Value STG Status continued, progressing at 05/12/2017 1203 STG demonstrate safe amb without loss of balance at 05/09/2017 1700 Gait Goal Flowsheet Row Most Recent Value STG Status continued at 05/12/2017 1203 STG Walsh Level modified independent, supervised at 05/09/2017 1700 STG Assistive Device 2 wheeled walker (FWW) at 05/09/2017 1700 STG Distance (feet) 50 at 05/09/2017 1700 Electronically signed by: Velia Gerard, PT, 05/13/2017 13:50 lan of Reena - Ana Villeda i, RN - 05/13/2017 12:57 PM PDTProblem: Discharge Planning Goal: Patient will be discharged in a safe manner Outcome: Improving This CM called Elkin at [facility], p# [phone], and she confirmed that she has a ccepted patient at discharge for rehab. Electronically signed by: Ana Dietrich RN 05/13/2017 12 :56 lan of Reena - Popeye Benito OT - 05/13/2017 12:16 PM PDTFormatting of this note might be different from the or iginal. Problem: Patient Care Overview (Adult) Goal: Care Team Goals & Evaluation PROBLEM-RELATED GOALS: 1. Jacklyn will have breath sounds consistent with baseline function throughout stay and rev erse airway bronchospasm when indicated. Reevaluate goal by 05/14/17. 2. Jacklyn will be free from falls by 05/14/17 3. Jacklyn will have adequate pain control 12/28 by 05/14/17 4. Jacklyn will have HR less than 100 by 05/14/2017 5. Jacklyn will maintain and improve skin integrity by 05/14/17. 6. Jacklyn will amb with FWW and SBA Without reporting SOB by 05/14/17 STRATEGY TO ACHIEVE GOALS: 1. Administer respiratory medications as ordered and adjust with use of respiratory protoco ls. 2. Fall risk precautions in place, bed alarm activated, call light within reach, hourly rou nds. 3. Provide RX per order, reposition Q2 hours, provide rest periods, monitor pain. 4. Monitor telemetry, administer rate control medications as ordered. Avoid fluid overload, monitor I and O. 5. Provide proper skin wound treatment and dressing change, provide assist with transfers, provide padded protectant's on bony extremities. 6. Pt to amb with nursing and PT. RESTRAINT-RELATED GOALS: STRATEGIES TO ACHIEVE RESTRAINT GOALS: Outcome: Improving Occupational Therapy Plan of Care Treatment Note Summary: patient agreeable to treatment. Patient has right compression sock in place. Rewr apping of LLE per protocol. Patient's LLe washed and dried with dressing change for wound pe r nursing. OT applied foam dressing to medial middle aspect of LLE. Wound is approximally 1. 8com x 1.6 cm, superficial. Periwound is intact and pink. Per patient wound is healing. Aries n II compression wrap placed on LLE with medium pressure. Dressing and compression wrap to b e changed again 05/15/17 unless otherwise specified by MD or nursing staff. Occupational Therapy Discharge Recommendations are: Recommended discharge disposition: assisted living Post discharge occupational therapy recommendation: (TBD) Equipment Recommendations: none Planned Interventions:other (see comments) (compression wrapping and wound care to left leg ) Recommended Frequency: other (see comments) (2x/wk and PRN) Patient Status/Goals: Reflects last filed data and may be from multiple contributors. Cognitive anxious during session OT Goal Review Date Flowsheet Row Most Recent Value STG Review Date 05/16/17 at 05/09/2017 1604 Additional Goals #1 OT Flowsheet Row Most Recent Value STG Status continued at 05/13/2017 1130 STG pt will tolerate compression wrapping 3-4 days when dressing will be changed as well a t 05/13/2017 1130 Additional Goals #2 OT Flowsheet Row Most Recent Value STG Status continued at 05/13/2017 1130 STG wound will show progression towards healing at 05/13/2017 1130 Electronically signed by: Airam Benito OT, 05/13/2017 12:16 lan of Care - Herson Eugene RN - 05/13/2017 6:44 AM PDTProblem: Patient Care Overview (Adult) Goal: Care Team Goals & Evaluation PROBLEM-RELATED GOALS: 1. Jacklyn will have breath sounds consistent with baseline function throughout stay and rev erse airway bronchospasm when indicated. Reevaluate goal by 05/14/17. 2. Jacklyn will be free from falls by 05/14/17 3. Jacklyn will have adequate pain control 3/10 by 05/14/17 4. Jacklyn will have HR less than 100 by 05/14/2017 5. Jacklyn will maintain and improve skin integrity by 05/14/17. 6. Jacklyn will amb with FWW and SBA Without reporting SOB by 05/14/17 STRATEGY TO ACHIEVE GOALS: 1. Administer respiratory medications as ordered and adjust with use of respiratory protoco ls. 2. Fall risk precautions in place, bed alarm activated, call light within reach, hourly rou nds. 3. Provide RX per order, reposition Q2 hours, provide rest periods, monitor pain. 4. Monitor telemetry, administer rate control medications as ordered. Avoid fluid overload, monitor I and O. 5. Provide proper skin wound treatment and dressing change, provide assist with transfers, provide padded protectant's on bony extremities. 6. Pt to amb with nursing and PT. RESTRAINT-RELATED GOALS: STRATEGIES TO ACHIEVE RESTRAINT GOALS: Outcome: Improving Goal Evaluation: Jacklyn's breath sounds are clear but dim throughout. His HR has been 50s-90s and SBP has m aintained greater than 90 without vasopressors. Jacklyn slept most of the night and only comp lained of minor foot pain which was relieved with repositioning. He continues to have multip le bruises and skin tears in various stages of healing, none new this shift. Up to bsc with mild sob and some urgency. Alert and oriented. Calls appropriately. lan of Care - Sumeet Burr, PAINT MIXER HAND - 05/13/2017 4:47 AM PDTProblem: Patient Care Overview (Adult) Goal: Care Team Goals & Evaluation PROBLEM-RELATED GOALS: 1. Jacklyn will have breath sounds consistent with baseline function throughout stay and rev erse airway bronchospasm when indicated. Reevaluate goal by 05/14/17. 2. Jacklyn will be free from falls by 05/14/17 3. Jacklyn will have adequate pain control 3/10 by 05/14/17 4. Jacklyn will have HR less than 100 by 05/14/2017 5. Jacklyn will maintain and improve skin integrity by 05/14/17. 6. Jacklyn will amb with FWW and SBA Without reporting SOB by 05/14/17 STRATEGY TO ACHIEVE GOALS: 1. Administer respiratory medications as ordered and adjust with use of respiratory protoco ls. 2. Fall risk precautions in place, bed alarm activated, call light within reach, hourly rou nds. 3. Provide RX per order, reposition Q2 hours, provide rest periods, monitor pain. 4. Monitor telemetry, administer rate control medications as ordered. Avoid fluid overload, monitor I and O. 5. Provide proper skin wound treatment and dressing change, provide assist with transfers, provide padded protectant's on bony extremities. 6. Pt to amb with nursing and PT. RESTRAINT-RELATED GOALS: STRATEGIES TO ACHIEVE RESTRAINT GOALS: Outcome: Improving Goal Evaluation: Jacklyn SpO2 97 % on nasal cannula at flow rate 2 (reduced to 1) LP M. Scheduled treatments given as ordered. No SOB reported. Exp wheezing appreciated on auscu ltation. RT will continue to monitor and treat as indicated. lan of Care - Lisa Mckeon RN - 05/12/2017 6:55 PM PDTProblem: Patient Care Overview (Adult) Goal: Care Team Goals & Evaluation PROBLEM-RELATED GOALS: 1. Jacklyn will have breath sounds consistent with baseline function throughout stay and rev erse airway bronchospasm when indicated. Reevaluate goal by 05/14/17. 2. Jacklyn will be free from falls by 05/14/17 3. Jacklyn will have adequate pain control 12/28 by 05/14/17 4. Jacklyn will have HR less than 100 by 05/14/2017 5. Jacklyn will maintain and improve skin integrity by 05/14/17. 6. Jacklyn will amb with FWW and SBA Without reporting SOB by 05/14/17 STRATEGY TO ACHIEVE GOALS: 1. Administer respiratory medications as ordered and adjust with use of respiratory protoco ls. 2. Fall risk precautions in place, bed alarm activated, call light within reach, hourly rou nds. 3. Provide RX per order, reposition Q2 hours, provide rest periods, monitor pain. 4. Monitor telemetry, administer rate control medications as ordered. Avoid fluid overload, monitor I and O. 5. Provide proper skin wound treatment and dressing change, provide assist with transfers, provide padded protectant's on bony extremities. 6. Pt to amb with nursing and PT. RESTRAINT-RELATED GOALS: STRATEGIES TO ACHIEVE RESTRAINT GOALS: Outcome: Improving Goal Evaluation: Pt has been Saturating in the 94-98% on room air and has tolerated well, only needing 2L N C while sleeping. Pt has been free of fall and was able to sit up on the chair for lunch. Va sopresors have been weaned off since 744 and SBP has been maintained above 90. Pt has been free from pain. lan of Care - Donato Mcqueen RRT - 05/12/2017 6:09 PM PDTProblem: Patient Care Overview (Adult) Goal: Care Team Goals & Evaluation PROBLEM-RELATED GOALS: 1. Jacklyn will have breath sounds consistent with baseline function throughout stay and rev erse airway bronchospasm when indicated. Reevaluate goal by 05/14/17. 2. Jacklyn will be free from falls by 05/14/17 3. Jacklyn will have adequate pain control 12/28 by 05/14/17 4. Jacklyn will have HR less than 100 by 05/14/2017 5. Jacklyn will maintain and improve skin integrity by 05/14/17. 6. Jacklyn will amb with FWW and SBA Without reporting SOB by 05/14/17 STRATEGY TO ACHIEVE GOALS: 1. Administer respiratory medications as ordered and adjust with use of respiratory protoco ls. 2. Fall risk precautions in place, bed alarm activated, call light within reach, hourly rou nds. 3. Provide RX per order, reposition Q2 hours, provide rest periods, monitor pain. 4. Monitor telemetry, administer rate control medications as ordered. Avoid fluid overload, monitor I and O. 5. Provide proper skin wound treatment and dressing change, provide assist with transfers, provide padded protectant's on bony extremities. 6. Pt to amb with nursing and PT. RESTRAINT-RELATED GOALS: STRATEGIES TO ACHIEVE RESTRAINT GOALS: Goal Evaluation: pt placed on RA, but required to place on 2L while napping sats dropping to 85% on RA. Mi ght consider performing overnight sleep Oxim when closer to discharge to see if pt requires O2 while sleeping. lan of Care - Javier Arana, SERVICE VEHICLE OPERATOR - 05/12/2017 11:50 AM PDT Problem: Patient Care Overview (Adult) Goal: Care Team Goals & Evaluation PROBLEM-RELATED GOALS: 1. Jacklyn will have breath sounds consistent with baseline function throughout stay and rev erse airway bronchospasm when indicated. Reevaluate goal by 05/14/17. 2. Jacklyn will be free from falls by 05/14/17 3. Jacklyn will have adequate pain control 12/28 by 05/14/17 4. Jacklyn will have HR less than 100 by 05/14/2017 5. Jacklyn will maintain and improve skin integrity by 05/14/17. 6. Jacklyn will amb with FWW and SBA Without reporting SOB by 05/14/17 STRATEGY TO ACHIEVE GOALS: 1. Administer respiratory medications as ordered and adjust with use of respiratory protoco ls. 2. Fall risk precautions in place, bed alarm activated, call light within reach, hourly rou nds. 3. Provide RX per order, reposition Q2 hours, provide rest periods, monitor pain. 4. Monitor telemetry, administer rate control medications as ordered. Avoid fluid overload, monitor I and O. 5. Provide proper skin wound treatment and dressing change, provide assist with transfers, provide padded protectant's on bony extremities. 6. Pt to amb with nursing and PT. RESTRAINT-RELATED GOALS: STRATEGIES TO ACHIEVE RESTRAINT GOALS: Outcome: Unchanged Physical Therapy Plan of Care Treatment Note Summary: Pt cleared for PT by RN. Pt agreeable stating "I don't know if I can do anything" . Pt with significant drop in BP and O2 upon standing. Cues for pursed lip breathing returne d O2 to above 90%. Pt with orthostatic hypotensive drop in BP however pt was unsystematic th erefore continued with tx. RN aware and pt vitals monitored. Cued for breathing with standin g pt maintained above 90% O2. Pt was fatigued after 3 sit<>stand. Pt up in chair, call light given. Handed off to nursing. Physical Therapy Discharge Recommendations are: Recommended discharge disposition: assisted living Post discharge physical therapy recommendation: ongoing low intensity therapy Equipment Recommendations: 2 wheeled walker (FWW) Planned Interventions: balance training, gait training, strengthening Recommended Frequency: daily Patient Status/Goals: Reflects last filed data and may be from multiple contributors. Gait NT; pt legs being to shake as soon as he stands up, unable to step in place Level of Walsh: 2 person assist required Assistive Device: 2 wheeled walker (FWW) Distance (feet): 15, 15 Transfers pt very weak with low BP, CGA to Min Assist for sit<>stand Sit-Stand, Level of Walsh: stand by assist, contact guard assist Stand-Sit, Level of Walsh: stand by assist, contact guard assist [id number], Assistive Device: 2 wheeled walker (FWW) Safety Issues: weight-shifting ability decreased Impairments: pain, strength decreased Bed Mobility NT; pt up in chair on arrival requested to stay up in chair post tx Assistive Device: none Supine to Sit, Level of Walsh: independent Sit to Supine, Level of Walsh: independent Therapeutic Exercise pt c/o of pain in left leg; deminished ROM noted in L ankle Seated exercises: bilateral, ankle pumps, long arc quads Repetitions: x10 Balance Standing Dynamic Goal Flowsheet Row Most Recent Value STG Status continued, progressing at 05/12/2017 1203 STG demonstrate safe amb without loss of balance at 05/09/2017 1700 Gait Goal Flowsheet Row Most Recent Value STG Status continued at 05/12/2017 1203 STG Walsh Level modified independent, supervised at 05/09/2017 1700 STG Assistive Device 2 wheeled walker (FWW) at 05/09/2017 1700 STG Distance (feet) 50 at 05/09/2017 1700 Electronically signed by: Javier Dubon PTA, 05/12/2017 12:05 lan of Care - Morro Mar RN - 05/12/2017 3:28 AM PDTProblem: Patient Care Overview (Adult) Goal: Care Team Goals & Evaluation PROBLEM-RELATED GOALS: 1. Jacklyn will have breath sounds consistent with baseline function throughout stay and rev erse airway bronchospasm when indicated. Reevaluate goal by 05/14/17. 2. Jacklyn will be free from falls by 05/14/17 3. Jacklyn will have adequate pain control 10 by 05/14/17 4. Jacklyn will have HR less than 100 by 05/14/2017 5. Jacklyn will maintain and improve skin integrity by 05/14/17. 6. Jacklyn will amb with FWW and SBA Without reporting SOB by 05/14/17 STRATEGY TO ACHIEVE GOALS: 1. Administer respiratory medications as ordered and adjust with use of respiratory protoco ls. 2. Fall risk precautions in place, bed alarm activated, call light within reach, hourly rou nds. 3. Provide RX per order, reposition Q2 hours, provide rest periods, monitor pain. 4. Monitor telemetry, administer rate control medications as ordered. Avoid fluid overload, monitor I and O. 5. Provide proper skin wound treatment and dressing change, provide assist with transfers, provide padded protectant's on bony extremities. 6. Pt to amb with nursing and PT. RESTRAINT-RELATED GOALS: STRATEGIES TO ACHIEVE RESTRAINT GOALS: Outcome: Improving Goal Evaluation: NSR today HR 62-117. Single 22 beat run Vtach. On dopamine gtt at 5, now to maintain HR mary und 60's- 99s and SBP around 100's. BP dropped to MAP's in low 50's and SBP in 80's early in shift. Levophed started at 3mcg/hr but only on for an hour as responded rapidly. Stopped le vophed and upped Dopamine briefly to 7.5. Jacklyn denies pain. Developed new skin tear today when positioning self in bed without help. Education provided, pt verbalizes understanding. Making approx 25-30 ml urine an hour. lan of Care - [facility] amina Nataly Mccormick, [employer] - 05/12/2017 12:36 AM PDTProblem: Patient Care Overview (Adult) Goal: Care Team Goals & Evaluation PROBLEM-RELATED GOALS: 1. Jacklyn will have breath sounds consistent with baseline function throughout stay and rev erse airway bronchospasm when indicated. Reevaluate goal by 05/14/17. 2. Pt will be free from falls by 05/14/17 3. Pt will have adequate pain control 12/28 by 05/14/17 4. Jacklyn will have HR less than 100 by 05/10/2017 5. Pt will maintain and improve skin integrity. 6. Pt will amb with FWW and SBA STRATEGY TO ACHIEVE GOALS: 1. Administer respiratory medications as ordered and adjust with use of respiratory protoco ls. 2. Fall risk precautions in place, bed alarm activated, call light within reach, hourly rou nds. 3. Provide RX per order, reposition Q2 hours, provide rest periods, monitor pain. 4. Monitor telemetry, administer rate control medications as ordered. Avoid fluid overload, monitor I and O. 5. Provide proper skin wound treatment and dressing change, provide assist with transfers, provide padded protectant's on bony extremities. 6. Pt to amb with nursing and PT RESTRAINT-RELATED GOALS: STRATEGIES TO ACHIEVE RESTRAINT GOALS: Outcome: Improving Goal Evaluation: Jacklyn takes treatments well breath sounds clear SpO2: 96 % on 2liters/minute nasal cannula lan of Care - Lisa Sherwood RN - 05/11/2017 6:58 PM PDTProblem: Patient Care Overview (Adult) Goal: Care Team Goals & Evaluation PROBLEM-RELATED GOALS: 1. Jacklyn will have breath sounds consistent with baseline function throughout stay and rev erse airway bronchospasm when indicated. Reevaluate goal by 05/14/17. 2. Pt will be free from falls by 05/14/17 3. Pt will have adequate pain control 12/28 by 05/14/17 4. Jacklyn will have HR less than 100 by 05/10/2017 5. Pt will maintain and improve skin integrity. 6. Pt will amb with FWW and SBA STRATEGY TO ACHIEVE GOALS: 1. Administer respiratory medications as ordered and adjust with use of respiratory protoco ls. 2. Fall risk precautions in place, bed alarm activated, call light within reach, hourly rou nds. 3. Provide RX per order, reposition Q2 hours, provide rest periods, monitor pain. 4. Monitor telemetry, administer rate control medications as ordered. Avoid fluid overload, monitor I and O. 5. Provide proper skin wound treatment and dressing change, provide assist with transfers, provide padded protectant's on bony extremities. 6. Pt to amb with nursing and PT RESTRAINT-RELATED GOALS: STRATEGIES TO ACHIEVE RESTRAINT GOALS: Outcome: Improving Goal Evaluation: Pt with lung sounds clear anteriorly and sat 95-100% on 2 L NC. No complaints of SOB. Pain med given x1 for pain in back. Pt has remain free from falls and has been under supervision when up to bedside commode. Pt HR has been in bradycardia with rare runs of Vtac. Skin vickie ins fragile, limited adhesive used to prevent skin tare. lan of Care - Donato Mcqueen, [employer] - 05/11/2017 4:33 PM PDTProblem: Patient Care Overview (Adult) Goal: Care Team Goals & Evaluation PROBLEM-RELATED GOALS: 1. Jacklyn will have breath sounds consistent with baseline function throughout stay and rev erse airway bronchospasm when indicated. Reevaluate goal by 05/14/17. 2. Pt will be free from falls by 05/14/17 3. Pt will have adequate pain control 3/10 by 05/14/17 4. Jacklyn will have HR less than 100 by 05/10/2017 5. Pt will maintain and improve skin integrity. 6. Pt will amb with FWW and SBA STRATEGY TO ACHIEVE GOALS: 1. Administer respiratory medications as ordered and adjust with use of respiratory protoco ls. 2. Fall risk precautions in place, bed alarm activated, call light within reach, hourly rou nds. 3. Provide RX per order, reposition Q2 hours, provide rest periods, monitor pain. 4. Monitor telemetry, administer rate control medications as ordered. Avoid fluid overload, monitor I and O. 5. Provide proper skin wound treatment and dressing change, provide assist with transfers, provide padded protectant's on bony extremities. 6. Pt to amb with nursing and PT RESTRAINT-RELATED GOALS: STRATEGIES TO ACHIEVE RESTRAINT GOALS: Goal Evaluation: pt tolerated tx well, bs clear but dim. Titrated o2 down to RA from 3L lan of Care - Becky Jesus, PT - 05/11/2017 1:34 PM PDTProblem: Patient Care Overview (Adult) Goal: Care Team Goals & Evaluation PROBLEM-RELATED GOALS: 1. Jacklyn will have breath sounds consistent with baseline function throughout stay and rev erse airway bronchospasm when indicated. Reevaluate goal by 05/14/17. 2. Pt will be free from falls by 05/14/17 3. Pt will have adequate pain control 3/10 by 05/14/17 4. Jacklyn will have HR less than 100 by 05/10/2017 5. Pt will maintain and improve skin integrity. 6. Pt will amb with FWW and SBA STRATEGY TO ACHIEVE GOALS: 1. Administer respiratory medications as ordered and adjust with use of respiratory protoco ls. 2. Fall risk precautions in place, bed alarm activated, call light within reach, hourly rou nds. 3. Provide RX per order, reposition Q2 hours, provide rest periods, monitor pain. 4. Monitor telemetry, administer rate control medications as ordered. Avoid fluid overload, monitor I and O. 5. Provide proper skin wound treatment and dressing change, provide assist with transfers, provide padded protectant's on bony extremities. 6. Pt to amb with nursing and PT RESTRAINT-RELATED GOALS: STRATEGIES TO ACHIEVE RESTRAINT GOALS: Missed Visit Patient Information Patient Name: Jacklyn Siddiqi Date of : 1935 Age: 81 y.o. The patient was unable to be seen for today's scheduled visit due to advised by nursing to hold treatment this afternoon as pt is on dopamine drip. Plan: Check with nursing tomorrow prior to tx. Electronically signed by: Becky Jesus, PT, 05/11/2017 13:34 lan of Joanna Manning, SAMEER - 05/11/2017 6:55 AM PDTDopamine remains on @ 5mcg/kg/min to maintian H R in 60's. SBP 100's, pt denies CP, no diaphoresis. Pt has had restless shift, c/o he just c an't get comfortable. Skin tears and iv sites still oozy. Voided 30cc x 1, denied urge. Blad montserrat scan=23cc. Inserted elaine catheter for 100cc clear nara urine, pt tolerated well. Elect ronically signed by Joanna Salazar, RN at 05/11/2017 7:06 AM PDTPlan of Sumeet Castillo RRT - 05/11/2017 6:34 AM PDTProblem: Patient Care Overview (Adult) Goal: Care Team Goals & Evaluation PROBLEM-RELATED GOALS: 1. Jacklyn will have breath sounds consistent with baseline function throughout stay and rev erse airway bronchospasm when indicated. Reevaluate goal by 05/14/17. 2. Pt will be free from falls by 05/14/17 3. Pt will have adequate pain control 12/28 by 05/14/17 4. Jacklyn will have HR less than 100 by 05/10/2017 5. Pt will maintain and improve skin integrity. 6. Pt will amb with FWW and SBA STRATEGY TO ACHIEVE GOALS: 1. Administer respiratory medications as ordered and adjust with use of respiratory protoco ls. 2. Fall risk precautions in place, bed alarm activated, call light within reach, hourly rou nds. 3. Provide RX per order, reposition Q2 hours, provide rest periods, monitor pain. 4. Monitor telemetry, administer rate control medications as ordered. Avoid fluid overload, monitor I and O. 5. Provide proper skin wound treatment and dressing change, provide assist with transfers, provide padded protectant's on bony extremities. 6. Pt to amb with nursing and PT RESTRAINT-RELATED GOALS: STRATEGIES TO ACHIEVE RESTRAINT GOALS: Outcome: Unchanged Goal Evaluation: Jacklyn SpO2 90 % on nasal cannula at flow rate 3 LPM. Pm nebs give n as ordered, 0300 neb held. Pt was agitated most of the shift and was asleep at time of tx. RN requested to hold off. No PRNs required. RT will continue to monitor and treat as indica johnny. lan of Care - Donato Mcqueen, VALARIE - 05/10/2017 6:21 PM PDTProblem: Patient Care Overview (Adult) Goal: Care Team Goals & Evaluation PROBLEM-RELATED GOALS: 1. Jacklyn will have breath sounds consistent with baseline function throughout stay and rev erse airway bronchospasm when indicated. Reevaluate goal by 05/14/17. 2. Pt will be free from falls by 05/14/17 3. Pt will have adequate pain control 10 by 05/14/17 4. Jacklyn will have HR less than 100 by 05/10/2017 5. Pt will maintain and improve skin integrity. 6. Pt will amb with FWW and SBA STRATEGY TO ACHIEVE GOALS: 1. Administer respiratory medications as ordered and adjust with use of respiratory protoco ls. 2. Fall risk precautions in place, bed alarm activated, call light within reach, hourly rou nds. 3. Provide RX per order, reposition Q2 hours, provide rest periods, monitor pain. 4. Monitor telemetry, administer rate control medications as ordered. Avoid fluid overload, monitor I and O. 5. Provide proper skin wound treatment and dressing change, provide assist with transfers, provide padded protectant's on bony extremities. 6. Pt to amb with nursing and PT RESTRAINT-RELATED GOALS: STRATEGIES TO ACHIEVE RESTRAINT GOALS: Goal Evaluation: pt titrated down to 1L by RT, then later to RA by RN pt tolerated well with sats remaining in the high 90s. Tolerated neb tx well during shift. lan of Care - Tamie banda, Whitney Gandara RN - 05/10/2017 6:13 PM PDTProblem: Patient Care Overview (Adult) Goal: Care Team Goals & Evaluation PROBLEM-RELATED GOALS: 1. Jacklyn will have breath sounds consistent with baseline function throughout stay and rev erse airway bronchospasm when indicated. Reevaluate goal by 05/14/17. 2. Pt will be free from falls by 05/14/17 3. Pt will have adequate pain control 12/28 by 05/14/17 4. Jacklyn will have HR less than 100 by 05/10/2017 5. Pt will maintain and improve skin integrity. 6. Pt will amb with FWW and SBA STRATEGY TO ACHIEVE GOALS: 1. Administer respiratory medications as ordered and adjust with use of respiratory protoco ls. 2. Fall risk precautions in place, bed alarm activated, call light within reach, hourly rou nds. 3. Provide RX per order, reposition Q2 hours, provide rest periods, monitor pain. 4. Monitor telemetry, administer rate control medications as ordered. Avoid fluid overload, monitor I and O. 5. Provide proper skin wound treatment and dressing change, provide assist with transfers, provide padded protectant's on bony extremities. 6. Pt to amb with nursing and PT RESTRAINT-RELATED GOALS: STRATEGIES TO ACHIEVE RESTRAINT GOALS: Outcome: Improving Goal Evaluation: [facility] thought to [facility], but no bleeding noted on EGD. Then developed AF with RVR and is now on amiodarone drip. Pt very upset about having t o go to a SNF rather than back to the assisted living facility. Plan to transfer in the nex t few days. lan of Care - Becky Morrison PT - 05/10/2017 12:13 PM PDT Problem: Patient Care Overview (Adult) Goal: Care Team Goals & Evaluation PROBLEM-RELATED GOALS: 1. Jacklyn will have breath sounds consistent with baseline function throughout stay and rev erse airway bronchospasm when indicated. Reevaluate goal by 05/14/17. 2. Pt will be free from falls by 05/14/17 3. Pt will have adequate pain control 10 by 05/14/17 4. Jacklyn will have HR less than 100 by 05/10/2017 5. Pt will maintain and improve skin integrity. 6. Pt will amb with FWW and SBA STRATEGY TO ACHIEVE GOALS: 1. Administer respiratory medications as ordered and adjust with use of respiratory protoco ls. 2. Fall risk precautions in place, bed alarm activated, call light within reach, hourly rou nds. 3. Provide RX per order, reposition Q2 hours, provide rest periods, monitor pain. 4. Monitor telemetry, administer rate control medications as ordered. Avoid fluid overload, monitor I and O. 5. Provide proper skin wound treatment and dressing change, provide assist with transfers, provide padded protectant's on bony extremities. 6. Pt to amb with nursing and PT RESTRAINT-RELATED GOALS: STRATEGIES TO ACHIEVE RESTRAINT GOALS: Physical Therapy Plan of Care Treatment Note Summary: Pt up in chair, cleared for PT by nursing. Pt able to attain standing CGA 1P. Pt amb 15' in room then reported feeling like he was out of energy and wanted to sit. Brought w /c for seated rest. Pt amb back to recliner after short rest. Pt able to amb 1P assist. Pt c onts to be very cautious due to fear of falling. Demonstrates poor endurance for gait, previ ously had been able to walk longer distances without falling or sudden fatigue. Pt's heart r ate and rhythm stable this am during session. Plan to cont PT to increase strength and endur ance for gait with 2P assist for safety. Physical Therapy Discharge Recommendations are: Recommended discharge disposition: assisted living Post discharge physical therapy recommendation: ongoing low intensity therapy Equipment Recommendations: 2 wheeled walker (FWW) Planned Interventions: balance training, gait training, strengthening Recommended Frequency: daily Patient Status/Goals: Reflects last filed data and may be from multiple contributors. Gait fearful; needed 2 person assist for security due to fear of falling Level of Walsh: 2 person assist required Assistive Device: 2 wheeled walker (FWW) Distance (feet): 15, 15 Stairs unable Bed Mobility Assistive Device: none Supine to Sit, Level of Walsh: independent Sit to Supine, Level of Walsh: independent Therapeutic Exercise Seated exercises: bilateral, long arc quads Repetitions: 20 ROM ROM Testing Results: no range of motion deficits identified Strength Strength Testing Results: no strength deficits were identified Balance Standing Dynamic Goal Flowsheet Row Most Recent Value STG Status new at 05/09/2017 170 STG demonstrate safe amb without loss of balance at 05/09/20171699 Gait Goal Flowsheet Row Most Recent Value STG Status new at 05/09/2017 170 STG Walsh Level modified independent, supervised at 05/09/20171699 STG Assistive Device 2 wheeled walker (FWW) at 05/09/20171699 STG Distance (feet) 50 at 05/09/20171699 Electronically signed by: Becky Jesus, PT, 05/10/2017 12:12 lan of Joanna Manning RN - 05/10/2017 7:30 AM PDTPt has had 2 episodes of HR up to 180-200, vtac h, Each time he's been exertionally stressed, trying to void, once standing up, once lying on his side in bed. Treated w addt'l dose of 12.5mg metoprolol po, recovers to usual rate an d rhythm within couple of minutes when he's at rest again. Pt denies any CP during these epi sodes, no diaphoresis, no nausea. Pt is SOB when these happen, from exerting himself to move . Has been wearing O2 @ 1l/nc. pts skin is very fragile/friable, layer came off on LFA when IV site was dc'd. Oozy all night long, dressed w non adherent drsg. lan of Sudhakar Dahl, [employer] HAND - 0 05/10/2017 4:23 AM PDTProblem: Patient Care Overview (Adult) Goal: Care Team Goals & Evaluation PROBLEM-RELATED GOALS: 1. Jacklyn will have breath sounds consistent with baseline function throughout stay and rev erse airway bronchospasm when indicated. Reevaluate goal by 05/14/17. 2. Pt will be free from falls by 05/14/17 3. Pt will have adequate pain control 3/10 by 05/14/17 4. Jackyln will have HR less than 100 by 05/10/2017 5. Pt will maintain and improve skin integrity. 6. Pt will amb with FWW and SBA STRATEGY TO ACHIEVE GOALS: 1. Administer respiratory medications as ordered and adjust with use of respiratory protoco ls. 2. Fall risk precautions in place, bed alarm activated, call light within reach, hourly rou nds. 3. Provide RX per order, reposition Q2 hours, provide rest periods, monitor pain. 4. Monitor telemetry, administer rate control medications as ordered. Avoid fluid overload, monitor I and O. 5. Provide proper skin wound treatment and dressing change, provide assist with transfers, provide padded protectant's on bony extremities. 6. Pt to amb with nursing and PT RESTRAINT-RELATED GOALS: STRATEGIES TO ACHIEVE RESTRAINT GOALS: Outcome: Unchanged Goal Evaluation: Patient got out of bed and then went into a v-tach, Code called. EKG done, but patient rec overed within 5 min. Sats 96% on 1 l/m. BS: few scattered wheezes, and diminished in bases. lan of Care - Mary Anderson RN - 05/09/2017 6:30 PM PDTProblem: Patient Care Overview (Adult) Goal: Care Team Goals & Evaluation PROBLEM-RELATED GOALS: 1. Jacklyn will have breath sounds consistent with baseline function throughout stay and rev erse airway bronchospasm when indicated. Reevaluate goal by 05/14/17. 2. Pt will be free from falls by 05/14/17 3. Pt will have adequate pain control 3/10 by 05/14/17 4. Jacklyn will have HR less than 100 by 05/10/2017 5. Pt will maintain and improve skin integrity. 6. Pt will amb with FWW and SBA STRATEGY TO ACHIEVE GOALS: 1. Administer respiratory medications as ordered and adjust with use of respiratory protoco ls. 2. Fall risk precautions in place, bed alarm activated, call light within reach, hourly rou nds. 3. Provide RX per order, reposition Q2 hours, provide rest periods, monitor pain. 4. Monitor telemetry, administer rate control medications as ordered. Avoid fluid overload, monitor I and O. 5. Provide proper skin wound treatment and dressing change, provide assist with transfers, provide padded protectant's on bony extremities. 6. Pt to amb with nursing and PT RESTRAINT-RELATED GOALS: STRATEGIES TO ACHIEVE RESTRAINT GOALS: Outcome: Improving Goal Evaluation: Patient remains in sinus tach. Responding well to his oral meds. Pain controlled well with 1 norco today. Leg wrap redone. Participated in PT. Is able to walk all the way to the bath room and can sit up in his chair for meals. On room air. lan of Care - Irais Reynolds RN - 05/09/2017 6:15 PM PDTProblem: Discharge Planning Goal: Patient will be discharged in a safe manner Outcome: Unchanged Clare ESTRELLA and her Director, Vasquez, showed up to assess this patient this morning without calling prior to coming over as they had agreed to do with Melinda MATTA yesterday. They insi sted that they wanted to do his assessment today when I asked if they would like to wait unt il he was more stable and closer to his baseline. They were very irritated that he was a c onfidential patient and I suggested that they visit with his Son who is his POA to find out any information that they needed. They stated that they had had nothing but problems with t his patient and they felt that he was not appropriate for their facility. I ended up asking Jacklyn, Mr. Siddiqi' son, who was in his room, if they wanted to visit with these two ladies a nd they said that they would. I showed Clare and Vasquez into the room. Clare and Vasquez came to me later and said that they felt that he was not going to be a g ood fit for their facility and that the hospitalist had agreed. I visited with Jacklyn and Anny Siddiqi along with Jesusita, one of our Chaplains, regarding a "Plan B" as Mr. Siddiqi had been crying when the two ladies had left the room. They decided that they would like me to try [facility] [place] [facility] [place] I faxed a referral to both facili ties and placed the cover sheets and fax receipts in the ghost charts. I received a call fr adriane Granger from [facility] and she verified that she had received it. I will follow up with both of them tomorrow. There were no other questions or needs at this time. Jose zhao signed by: Irais Travis RN 05/09/2017 18:14 lan of Care - David mcclure, Becky Joya, PT - 05/09/2017 5:04 PM PDTFormatting of this note might be different from th e original. Problem: Patient Care Overview (Adult) Goal: Care Team Goals & Evaluation PROBLEM-RELATED GOALS: 1. Jacklyn will have breath sounds consistent with baseline function throughout stay and rev erse airway bronchospasm when indicated. Reevaluate goal by 05/14/17. 2. Pt will be free from falls by 05/14/17 3. Pt will have adequate pain control 12/28 by 05/14/17 4. Jacklyn will have HR less than 100 by 05/10/2017 5. Pt will maintain and improve skin integrity. 6. Pt will amb with FWW and SBA STRATEGY TO ACHIEVE GOALS: 1. Administer respiratory medications as ordered and adjust with use of respiratory protoco ls. 2. Fall risk precautions in place, bed alarm activated, call light within reach, hourly rou nds. 3. Provide RX per order, reposition Q2 hours, provide rest periods, monitor pain. 4. Monitor telemetry, administer rate control medications as ordered. Avoid fluid overload, monitor I and O. 5. Provide proper skin wound treatment and dressing change, provide assist with transfers, provide padded protectant's on bony extremities. 6. Pt to amb with nursing and PT RESTRAINT-RELATED GOALS: STRATEGIES TO ACHIEVE RESTRAINT GOALS: Physical Therapy Plan of Care Initial Evaluation, Treatment Note Summary: Rec'd PT orders, reviewed chart. Nursing reports pt panicks when attempting to ge t him up due to extreme fear of falling again. Pt alert and agreeable to getting out of bed but anxious about falling. Pt describes falls as being sudden onset with no loss of consciou sness, dizziness, or balance loss--just feels as though all of his strength goes away and he falls to the ground. Pt demonstrated good LE strength and sensation. Able to attain sitting EOB indep. Stood with 2 person assist for security using FWW. Pt able to amb to bathroom ~1 5', steady but nervous and shakey. Pt on toilet ~5 min>amb to recliner. Pt very relieved abo ut his ability to amb w/o falling, likes FWW for stability. Pt presents with 2 witnessed maty den falls in one day, not usually a fall risk. Pt demonstrates adequate strength and sensati on for amb and did well this afternoon with 2 person assist for security. Pt will benefit fr om skilled PT to progress with gait using FWW--cause of sudden falls still needs to be deter mined from a medical standpoint. Discharge plan TBD based on reason for falls and likelihood of having more episodes. Physical Therapy Discharge Recommendations are: Recommended discharge disposition: assisted living (TBD) Post discharge physical therapy recommendation: ongoing low intensity therapy Equipment Recommendations: 2 wheeled walker (FWW) (pt may benefit from FWW over 4WW) Planned Interventions: balance training, gait training, strengthening Recommended Frequency: daily Patient Status/Goals: Reflects last filed data and may be from multiple contributors. Gait fearful; needed 2 person assist for security due to fear of falling Level of Walsh: 2 person assist required Assistive Device: 2 wheeled walker (FWW) Distance (feet): 15, 15 Stairs NT Bed Mobility Assistive Device: none Supine to Sit, Level of Walsh: independent Sit to Supine, Level of Walsh: independent Balance ongoing assessment needed Therapeutic Exercise Seated exercises: bilateral, long arc quads Repetitions: 20 ROM ROM Testing Results: no range of motion deficits identified Strength Strength Testing Results: no strength deficits were identified Balance Standing Dynamic Goal Flowsheet Row Most Recent Value STG Status new at 05/09/2017 1700 STG demonstrate safe amb without loss of balance at 05/09/2017 1700 Gait Goal Flowsheet Row Most Recent Value STG Status new at 05/09/2017 1700 STG Walsh Level modified independent, supervised at 05/09/2017 1700 STG Assistive Device 2 wheeled walker (FWW) at 05/09/2017 1700 STG Distance (feet) 50 at 05/09/2017 1700 Electronically signed by: Becky Jesus PT, 05/09/2017 17:03 lan of Care - Stru ck, Erin Gandara, OT - 05/09/2017 4:17 PM PDTFormatting of this note might be different from t he original. Problem: Patient Care Overview (Adult) Goal: Care Team Goals & Evaluation PROBLEM-RELATED GOALS: 1. Jacklyn will have breath sounds consistent with baseline function throughout stay and rev erse airway bronchospasm when indicated. Reevaluate goal by 05/14/17. 2. Pt will be free from falls by 05/14/17 3. Pt will have adequate pain control 12/28 by 05/14/17 4. Jacklyn will have HR less than 100 by 05/10/2017 5. Pt will maintain and improve skin integrity. STRATEGY TO ACHIEVE GOALS: 1. Administer respiratory medications as ordered and adjust with use of respiratory protoco ls. 2. Fall risk precautions in place, bed alarm activated, call light within reach, hourly rou nds. 3. Provide RX per order, reposition Q2 hours, provide rest periods, monitor pain. 4. Monitor telemetry, administer rate control medications as ordered. Avoid fluid overload, monitor I and O. 5. Provide proper skin wound treatment and dressing change, provide assist with transfers, provide padded protectant's on bony extremities. RESTRAINT-RELATED GOALS: STRATEGIES TO ACHIEVE RESTRAINT GOALS: Occupational Therapy Plan of Care Initial Evaluation Note Summary: Orders received, chart reviewed. Initial eval scheduled tomorrow as per order danyel forbes MD had removed the left compression wrap to view wound. In need of having compression wra p re-applied. Removed the right compression wrap as well. Washed and dried both legs with soap and water, Applied lotion for hydration of the dry tissue. No wound noted on R LE- ed carmen resolved. Placed knee high compression JOHNNY on right leg. Applied foam dressing to the medial middle lower left leg. Wound is approx 1.8 cm x 1.6cm, superficial, with minimal exu date. Periwound is intact and pink. Wound is improving per patient. Coban II compression wrap placed on L LE with medium pressure. Dressing and compression wrap will be changed on M onday, 05/13, unless MD or patient has it removed, then will replace at that time. Pt is in n eed of skilled therapy for wound care and compression wrapping. Occupational Therapy Discharge Recommendations are: Recommended discharge disposition: assisted living Post discharge occupational therapy recommendation: (TBD) Equipment Recommendations: none Planned Interventions:other (see comments) (compression wrapping and wound care to left leg ) Recommended Frequency: other (see comments) (2x/wk and PRN) Patient Status/Goals: Reflects last filed data and may be from multiple contributors. OT Goal Review Date Flowsheet Row Most Recent Value STG Review Date 05/16/17 at 05/09/2017 1604 Additional Goals #1 OT Flowsheet Row Most Recent Value STG Status new at 05/09/2017 1604 STG pt will tolerate compression wrapping 3-4 days when dressing will be changed as well a t 05/09/2017 1604 Additional Goals #2 OT Flowsheet Row Most Recent Value STG Status new at 05/09/2017 1604 STG wound will show progression towards healing at 05/09/2017 1604 Electronically signed by: Erin Gates OT, 05/09/2017 16:16 lan of Joanna Manning RN - 05/09/2017 6:30 AM [id number] (late entry) pt has remained in [facility] ft, HR 102-110, BBB, occasional multifocal PVC. Medicated x 1 for c/o pain in LLE. RLE has l ymphedema wrap on. LLE, discolored w changes of PVD, pedal pulses are palpable. Pt has pitti ng edema from knees to flank area. Moves well in the bed, was up to BSC x 1 w 1 assist, tole rated well. lan o f Sudhakar Dahl RRT - 05/09/2017 1:56 AM PDTProblem: Patient Care Overview (Ad ult) Goal: Care Team Goals & Evaluation PROBLEM-RELATED GOALS: 1. Jacklyn will have breath sounds consistent with baseline function throughout stay and rev erse airway bronchospasm when indicated. Reevaluate goal by 05/14/17. 2. Pt will be free from falls by 05/14/17 3. Pt will have adequate pain control 10 by 05/14/17 4. Jacklyn will have HR less than 100 by 05/10/2017 5. Pt will maintain and improve skin integrity. STRATEGY TO ACHIEVE GOALS: 1. Administer respiratory medications as ordered and adjust with use of respiratory protoco ls. 2. Fall risk precautions in place, bed alarm activated, call light within reach, hourly rou nds. 3. Provide RX per order, reposition Q2 hours, provide rest periods, monitor pain. 4. Monitor telemetry, administer rate control medications as ordered. Avoid fluid overload, monitor I and O. 5. Provide proper skin wound treatment and dressing change, provide assist with transfers, provide padded protectant's on bony extremities. RESTRAINT-RELATED GOALS: STRATEGIES TO ACHIEVE RESTRAINT GOALS: Outcome: Unchanged Goal Evaluation: Patient doing well. On 2 l/m nasal cannula, sating 97%. BS diminished with scattered dist ant wheezes. Patient slept most the night. No PRN treatments. lan of Care - Or Nataly shah RRT - 05/08/2017 6:40 PM PDTProblem: Patient Care Overview (Adult) Goal: Care Team Goals & Evaluation PROBLEM-RELATED GOALS: 1. Jacklyn will have breath sounds consistent with baseline function throughout stay and rev erse airway bronchospasm when indicated. Reevaluate goal by 05/14/17. 2. Pt will be free from falls by 05/14/17 3. Pt will have adequate pain control 12/28 by 05/14/17 4. Jacklyn will have HR less than 100 by 05/10/2017 5. Pt will maintain and improve skin integrity. STRATEGY TO ACHIEVE GOALS: 1. Administer respiratory medications as ordered and adjust with use of respiratory protoco ls. 2. Fall risk precautions in place, bed alarm activated, call light within reach, hourly rou nds. 3. Provide RX per order, reposition Q2 hours, provide rest periods, monitor pain. 4. Monitor telemetry, administer rate control medications as ordered. Avoid fluid overload, monitor I and O. 5. Provide proper skin wound treatment and dressing change, provide assist with transfers, provide padded protectant's on bony extremities. RESTRAINT-RELATED GOALS: STRATEGIES TO ACHIEVE RESTRAINT GOALS: Outcome: Unchanged Goal Evaluation: Jacklyn takes txs well breath sounds scattered exp wheeze right lung SpO2: 100 % on 2liters/ minute nasal cannula., moved to unit for rapid heart rate lan of Care - Martha Candelario RN - 05/08/2017 6:27 PM PDTProblem: Patient Care Overview (Adult) Goal: Care Team Goals & Evaluation PROBLEM-RELATED GOALS: 1. Jacklyn will have breath sounds consistent with baseline function throughout stay and rev erse airway bronchospasm when indicated. Reevaluate goal by 05/14/17. 2. Pt will be free from falls by 05/14/17 3. Pt will have adequate pain control 12/28 by 05/14/17 4. Jacklyn will have HR less than 100 by 05/10/2017 5. Pt will maintain and improve skin integrity. STRATEGY TO ACHIEVE GOALS: 1. Administer respiratory medications as ordered and adjust with use of respiratory protoco ls. 2. Fall risk precautions in place, bed alarm activated, call light within reach, hourly rou nds. 3. Provide RX per order, reposition Q2 hours, provide rest periods, monitor pain. 4. Monitor telemetry, administer rate control medications as ordered. Avoid fluid overload, monitor I and O. 5. Provide proper skin wound treatment and dressing change, provide assist with transfers, provide padded protectant's on bony extremities. RESTRAINT-RELATED GOALS: STRATEGIES TO ACHIEVE RESTRAINT GOALS: Outcome: Improving Goal Evaluation: Jacklyn was being monitored on telemety when his HR jumped up to the 160's. was contacted and he was transferred to [place] at 1136. At about 1445 his HR increas ed to 180 and he became hypotensive. Placed in Trendelenburg position and Dr. Philippe was conta cted. Orders received for metoprolol. Converted to a sinus tach at 1500 Bp improved. No fal ls. Breath sounds dim but clear. Left leg pain has been improved and Jacklyn has had no furt her skin breakdown. eICU Note - Toan Reynolds RN - 05/08/2017 5:[address] PDTDr. Philippe in around 1330 to Assess Mr Philippe. He has been complaining of 10/10 left leg pain. Lymphedema wrap removed from Left leg. CMS assessed. Cap refill < 3 sec. Foot warm and good pulse. Pt states reduction in pain. Order for OT pl aced to replace lymphedema wraps and treat for the remainder of hospitalization.Electronical ly signed by Martha Reynolds RN at 05/08/2017 5:46 PM PDTPlan of Care - Melinda Davis MSW - 05/08/2017 4:23 PM PDTProblem: Discharge Planning Goal: Patient will be discharged in a safe manner Outcome: Improving This high risk case manager spoke with patient's POA and son Jacklyn Siddiqi regarding patient's discharg e plan. Son states that he now lives at [facility]. He was living at [facility] prior to [facility]. He has been living at [facility] about a month. Son states that they go on walks every day. They were walking out of a store when his fathe r fell. He states that his [facility] just [facility] and it was his first time using the 4WW. He does not believe that the walker caused him to fall, stating that he fell backw ards and the walker when with him. He has a electric wheelchair, however, son states that he does not have a means for transpo rting the electric w/c so he doesn't have him use it outside of the facility. Son reports th at they do go on daily walks around [facility]. Son states that he would appreciate case management to follow up with the RN at [facility] as well with him in coordinating a discharge back there. Son states that he is his transp ortation and will transport him back when stable. [phone]. Rhianna states that there has been a multitude of issues with this patient in the last month he has been living there. She states that he is non compliant with doctors orders and states that they have a hard time m anaging his care at their facility. Rhianna states that she and her director need to come eval uate patient prior to them deciding if they are able to accept him back to their facility. A anna will call SAMEER Braxton CM in the AM to arrange a time to come assess patient. If [facility] will not accept this patient back to their [facility], we may need to consider a SNF. CM to follow up. Electronically signed by: PAXTON Hernandez 05/08/2017 16:23 lan of Care - Keaton Sandy, Greta Truong RN - 05/08/2017 1:04 PM PDTPt HR remains elevated 140's , ICU calling f requently with concern of rates 140-180, Rx was provided for left leg pain, MD notified, EKG done, ICU nurse here talked with MD orders to transfer to ICU. Report called to Martha ESTRELLA.El ectronically signed by Greta Inman RN at 05/08/2017 1:10 PM PDTeICU Note - Mary Umana RN - 05/08/2017 12:30 PM PDTPt's Telemetry reading HR 150's-200. This CORN GROWER we nt over to assess pt. Who was lying in bed talking on the phone with a family member. He den ies chest pain, SOB and/or a fluttering feeling in his chest. SBP 108/58. Pt.'s RN is at [facility]. EKG ordered and Dr. Philippe contacted about elevated HR concerns. Pt. To be transferred over to the ICU for closer monitoring. Electronically signed by Mary Cantu RN at 04/20 2:07 PM PDTD-C Instructions Provation - Peter Maciel MD - 05/08/2017 9:20 AM PDT Discharge Instructions for Upper Endoscopy Patient: Jacklyn Siddiqi : 1935 Acct: [id number] Exam Date: Monday, May 08, 2017 Doctor: Peter aMciel MD The chances of difficulty following this procedure are minimal. The following instruction s will assist you in your recovery. 1. Do Not eat or drink anything for 1 hour. Try sips of water first. If tolerated, resu me your regular diet or one recommended by your physician. 2. Do not drive, operate bety basil, make critical decisions, or do activities that require coordination or balance for 24 hours. 3. You may experience a sore throat for 24 - 48 hours. You may use throat lozenges or ga rgle with warm salt water to relieve the discomfort. 4. Because air was put into your stom ach druing the procedure, you may experience some belching. 5. Do not use any medication containing aspirin for 10 days, unless otherwise directed by your physician. 6. Sometimes the medications given to you druing the exam can aggravate the veins. The c hemical irritation can cause inflammation or pain along the arm with redness, swelling and warmth. This does not mean there is an infection. You can treat the affected area by appl ross warm, wet compresses (towels) 4 times a day for 20 minutes at a time until inflammatio n is resolved 7. Report to your doctor: Chills and/or fever over 100 Persistent vomiting or vomiting with blood/nasal regurgitation Severe abdominal pain, othe r than gas cramps Severe chest pain Black, tarry stools You may reach your physician at Work: . If unable to reach your physician, call [facility] Emergency Department at Ext. [phone] Your doctor recommends these additional instructions: Take a clear liquid diet. Continue your present medications. The findings and recommendations have been discussed with you. These instructions have bee n explained to the patient and/or escort. A copy has been given to the patient/escort. Nurse Signatur e Patient Signature Escort Signatu re Date Peter Maciel MD 05/08/2017 9:44:54 AM This report has been signed electronically.Electronically signed by Peter Maciel MD at 9:45 AM PDTPlan of Reena - Jacey Cuevas RN - 05/08/2017 6:16 AM PDT Problem: Patient Care Overview (Adult) Goal: Care Team Goals & Evaluation PROBLEM-RELATED GOALS: 1. Jacklyn will have breath sounds consistent with baseline function throughout stay and rev erse airway bronchospasm when indicated. Reevaluate goal by 05/14/17. 2. Pt will be free from falls by 05/14/17 3. Pt will be free from pain by 05/14/17 4. Pt will display v/s WNL, dusrhythmias absent/controlled, and no symptoms of heart failur e. STRATEGY TO ACHIEVE GOALS: 1. Administer respiratory medications as ordered and adjust with use of respiratory protoco ls. 2. Fall risk precautions in place, bed alarm set, call be in reach, bed in low position 3. Encourage rest periods, therapeutic management, offer a quiet environment, provide pain medication as needed. 4. Monitor I&O, elevate legs, monitor bloodwork, note changes in sensorium, administer supp lemental O2, administer medication as indicated. RESTRAINT-RELATED GOALS: STRATEGIES TO ACHIEVE RESTRAINT GOALS: Outcome: Improving Goal Evaluation: pt on room air. No s/s of resp distress, pt c/o pain to left leg x1 this shift. Pain impro belle with analgesic medication. Vitals: 05/08/17 0359 BP: 111/55 Pulse: 106 Resp: 16 Temp: 36.5 C (97.7 F) lan of Reena - Karin Herrera RRT - 05/08/2017 4:43 AM PDTProblem: Patient Care Overview (Adult) Goal: Care Team Goals & Evaluation PROBLEM-RELATED GOALS: STRATEGY TO ACHIEVE GOALS: RESTRAINT-RELATED GOALS: STRATEGIES TO ACHIEVE RESTRAINT GOALS: Goal Evaluation: Jacklyn is on room air with SPO2 94-100%. His breathing treatment was given as scheduled. No PRN treatments this shift. Breath sounds appear clear. D Triage Notes - Elva elias RN - 05/07/2017 11:10 AM PDTPt had been at the [facility] this am and was heading back home an d pt [facility] twice this [facility] once [facility] once at [facility]. Pt did not hit headElectronic ally signed by SAMEER Forman at 05/07/2017 11:11 AM PDTdocumented in this encounter Plan of Treatment +--------+ + + + + | Date | Type | Specialty | Care Team | Description | +--------+ + + + + | 07/20/ | Implant | Cardiology | Cruzito Bird, | Remote Device | | 2019 | Monitor | | MD Leon Grant | Interrogation | | | | | 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) | +--------+ + + + + | 01/05/ | Office | Cardiology | Emely Gabriel, | | | 2020 | Visit | | [place] [facility] | | | | | | [place] | | | | | | [id number] | | | | | | | | +--------+ + + + + + +------+--------+ + + | Name | Type | Priori | Associated Diagnoses | Date/Time | | | | ty | | | + +------+--------+ + + | ED INFORMATION | SHAZIA | Routin | | 05/07/2017 11:10 AM | | EXCHANGE | | e | | PDT | + +------+--------+ + + documented as of this encounter Procedures + +--------+ + + + | Procedure Name | Priori | Date/Time | Associated Diagnosis | Comments | | | ty | | | | + +--------+ + + + | PROTIME INR | Routin | 05/16/2017 | | Results for this | | | e | 5:39 AM | | procedure are in the | | | | PDT | | results section. | + +--------+ + + + | PROTIME INR | Routin | 05/15/2017 | | Results for this | | | e | 4:24 AM | | procedure are in the | | | | PDT | | results section. | + +--------+ + + + | CBC NO DIFFERENTIAL | Routin | 05/14/2017 | | Results for this | | | e | 5:53 PM | | procedure are in the | | | | PDT | | results section. | + +--------+ + + + | CREATININE | Routin | 05/14/2017 | | Results for this | | | e | 5:53 PM | | procedure are in the | | | | PDT | | results section. | + +--------+ + + + | ECG 12 LEAD | Routin | 05/14/2017 | | Results for this | | | e | 11:23 AM | | procedure are in the | | | | PDT | | results section. | + +--------+ + + + | ECG 12 LEAD | Routin | 05/14/2017 | | Results for this | | | e | 11:21 AM | | procedure are in the | | | | PDT | | results section. | + +--------+ + + + | XR CHEST PA AND | Routin | 05/14/2017 | | Results for this | | LATERAL | e | 8:58 AM | | procedure are in the | | | | PDT | | results section. | + +--------+ + + + | CV EP PPM SYSTEM | Routin | 05/14/2017 | | Results for this | | IMPLANT | e | 8:43 AM | | procedure are in the | | | | PDT | | results section. | + +--------+ + + + | XR CHEST AP PORTABLE | Routin | 05/13/2017 | Atrial | Results for this | | | e | 5:37 PM | fibrillation with | procedure are in the | | | | PDT | RVR (HCC) | results section. | | | | | Persistent atrial | | | | | | fibrillation (HCC) | | + +--------+ + + + | XR CHEST AP PORTABLE | Routin | 05/13/2017 | | Results for this | | | e | 3:02 PM | | procedure are in the | | | | PDT | | results section. | + +--------+ + + + | ERYTHROPOIETIN | Routin | 05/13/2017 | | Results for this | | | e | 10:09 AM | | procedure are in the | | | | PDT | | results section. | + +--------+ + + + | IRON AND TRANSFERRIN | Routin | 05/13/2017 | | Results for this | | | e | 10:09 AM | | procedure are in the | | | | PDT | | results section. | + +--------+ + + + | RETIC COUNT | Routin | 05/13/2017 | | Results for this | | | e | 10:09 AM | | procedure are in the | | | | PDT | | results section. | + +--------+ + + + | HAPTOGLOBIN | Routin | 05/13/2017 | | Results for this | | | e | 10:09 AM | | procedure are in the | | | | PDT | | results section. | + +--------+ + + + | FERRITIN | Routin | 05/13/2017 | | Results for this | | | e | 10:09 AM | | procedure are in the | | | | PDT | | results section. | + +--------+ + + + | ECHO COMPLETE | JUNAID | 05/13/2017 | | Results for this | | | | 8:26 AM | | procedure are in the | | | | PDT | | results section. | + +--------+ + + + | CBC WITH MANUAL | Routin | 05/13/2017 | | Results for this | | DIFFERENTIAL | e | 4:36 AM | | procedure are in the | | | | PDT | | results section. | + +--------+ + + + | MANUAL DIFFERENTIAL | Routin | 05/13/2017 | | Results for this | | | e | 4:36 AM | | procedure are in the | | | | PDT | | results section. | + +--------+ + + + | CBC NO DIFFERENTIAL | Routin | 05/13/2017 | | Results for this | | | e | 4:36 AM | | procedure are in the | | | | PDT | | results section. | + +--------+ + + + | BASIC METABOLIC | Routin | 05/13/2017 | | Results for this | | PANEL | e | 4:36 AM | | procedure are in the | | | | PDT | | results section. | + +--------+ + + + | CBC NO DIFFERENTIAL | STAT | 05/12/2017 | | Results for this | | | | 7:49 PM | | procedure are in the | | | | PDT | | results section. | + +--------+ + + + | BASIC METABOLIC | STAT | 05/12/2017 | | Results for this | | PANEL | | 7:49 PM | | procedure are in the | | | | PDT | | results section. | + +--------+ + + + | PROTIME INR | Timed | 05/12/2017 | | Results for this | | | | 7:42 PM | | procedure are in the | | | | PDT | | results section. | + +--------+ + + + | CULTURE, IV CATH TIP | Routin | 05/12/2017 | | Results for this | | | e | 11:13 AM | | procedure are in the | | | | PDT | | results section. | + +--------+ + + + | CULTURE, BLOOD | Routin | 05/12/2017 | | Results for this | | | e | 11:07 AM | | procedure are in the | | | | PDT | | results section. | + +--------+ + + + | ECG 12 LEAD | Routin | 05/12/2017 | | Results for this | | | e | 9:34 AM | | procedure are in the | | | | PDT | | results section. | + +--------+ + + + | XR CHEST PA OR AP | Routin | 05/12/2017 | | Results for this | | | e | 8:34 AM | | procedure are in the | | | | PDT | | results section. | + +--------+ + + + | CBC NO DIFFERENTIAL | Routin | 05/11/2017 | | Results for this | | | e | 7:15 PM | | procedure are in the | | | | PDT | | results section. | + +--------+ + + + | CREATININE | Routin | 05/11/2017 | | Results for this | | | e | 7:15 PM | | procedure are in the | | | | PDT | | results section. | + +--------+ + + + | XR CHEST AP PORTABLE | Routin | 05/11/2017 | | Results for this | | | e | 7:27 AM | | procedure are in the | | | | PDT | | results section. | + +--------+ + + + | CBC WITH MANUAL | Routin | 05/10/2017 | | Results for this | | DIFFERENTIAL | e | 8:33 PM | | procedure are in the | | | | PDT | | results section. | + +--------+ + + + | MANUAL DIFFERENTIAL | Routin | 05/10/2017 | | Results for this | | | e | 8:33 PM | | procedure are in the | | | | PDT | | results section. | + +--------+ + + + | PTT | Routin | 05/10/2017 | | Results for this | | | e | 8:33 PM | | procedure are in the | | | | PDT | | results section. | + +--------+ + + + | PROTIME INR | Routin | 05/10/2017 | | Results for this | | | e | 8:33 PM | | procedure are in the | | | | PDT | | results section. | + +--------+ + + + | CBC NO DIFFERENTIAL | Routin | 05/10/2017 | | Results for this | | | e | 8:33 PM | | procedure are in the | | | | PDT | | results section. | + +--------+ + + + | MAGNESIUM | Routin | 05/10/2017 | | Results for this | | | e | 8:33 PM | | procedure are in the | | | | PDT | | results section. | + +--------+ + + + | BASIC METABOLIC | Routin | 05/10/2017 | | Results for this | | PANEL | e | 8:33 PM | | procedure are in the | | | | PDT | | results section. | + +--------+ + + + | ECG 12 LEAD | JUNAID | 05/10/2017 | | Results for this | | | | 6:37 PM | | procedure are in the | | | | PDT | | results section. | + +--------+ + + + | ECG 12 LEAD | STAT | 05/10/2017 | | Results for this | | | | 12:53 AM | | procedure are in the | | | | PDT | | results section. | + +--------+ + + + | EXTRA LAVENDER TOP | Routin | 05/09/2017 | | Results for this | | TUBE | e | 4:05 AM | | procedure are in the | | | | PDT | | results section. | + +--------+ + + + | EXTRA GREEN TOP TUBE | Routin | 05/09/2017 | | Results for this | | | e | 4:05 AM | | procedure are in the | | | | PDT | | results section. | + +--------+ + + + | PROTIME INR | Routin | 05/09/2017 | | Results for this | | | e | 4:05 AM | | procedure are in the | | | | PDT | | results section. | + +--------+ + + + | PROTIME INR | Routin | 05/08/2017 | | Results for this | | | e | 6:36 PM | | procedure are in the | | | | PDT | | results section. | + +--------+ + + + | CBC NO DIFFERENTIAL | Routin | 05/08/2017 | | Results for this | | | e | 6:36 PM | | procedure are in the | | | | PDT | | results section. | + +--------+ + + + | CREATININE | Routin | 05/08/2017 | | Results for this | | | e | 6:36 PM | | procedure are in the | | | | PDT | | results section. | + +--------+ + + + | CULTURE, MRSA | Routin | 05/08/2017 | | Results for this | | | e | 1:30 PM | | procedure are in the | | | | PDT | | results section. | + +--------+ + + + | ECG 12 LEAD | STAT | 05/08/2017 | | Results for this | | | | 12:29 PM | | procedure are in the | | | | PDT | | results section. | + +--------+ + + + | EGD | | 05/08/2017 | GI bleed | | | | | 9:26 AM | | | | | | PDT | | | + +--------+ + + + | EGD | Routin | 05/08/2017 | | Results for this | | | e | 9:20 AM | | procedure are in the | | | | PDT | | results section. | + +--------+ + + + | MAGNESIUM | Routin | 05/08/2017 | | Results for this | | | e | 7:03 AM | | procedure are in the | | | | PDT | | results section. | + +--------+ + + + | BASIC METABOLIC | Routin | 05/08/2017 | | Results for this | | PANEL | e | 7:03 AM | | procedure are in the | | | | PDT | | results section. | + +--------+ + + + | CBC NO DIFFERENTIAL | Routin | 05/08/2017 | | Results for this | | | e | 4:56 AM | | procedure are in the | | | | PDT | | results section. | + +--------+ + + + | HEMOGLOBIN AND | Routin | 05/07/2017 | | Results for this | | HEMATOCRIT | e | 5:24 PM | | procedure are in the | | | | PDT | | results section. | + +--------+ + + + | PTT | Routin | 05/07/2017 | | Results for this | | | e | 5:24 PM | | procedure are in the | | | | PDT | | results section. | + +--------+ + + + | PROTIME INR | Add-On | 05/07/2017 | | Results for this | | | | 5:24 PM | | procedure are in the | | | | PDT | | results section. | + +--------+ + + + | B TYPE NATRIURETIC | Add-On | 05/07/2017 | | Results for this | | PEPTIDE | | 5:24 PM | | procedure are in the | | | | PDT | | results section. | + +--------+ + + + | AMMONIA | Routin | 05/07/2017 | | Results for this | | | e | 5:24 PM | | procedure are in the | | | | PDT | | results section. | + +--------+ + + + | HEPATIC FUNCTION | Routin | 05/07/2017 | | Results for this | | PANEL | e | 5:24 PM | | procedure are in the | | | | PDT | | results section. | + +--------+ + + + | BASIC METABOLIC | Add-On | 05/07/2017 | | Results for this | | PANEL | | 5:24 PM | | procedure are in the | | | | PDT | | results section. | + +--------+ + + + | POCT URINALYSIS, | STAT | 05/07/2017 | | Results for this | | AUTO WITH CONF | | 12:21 PM | | procedure are in the | | | | PDT | | results section. | + +--------+ + + + | CT HEAD WO CONTRAST | STAT | 05/07/2017 | | Results for this | | | | 11:56 AM | | procedure are in the | | | | PDT | | results section. | + +--------+ + + + | ECG 12 LEAD | STAT | 05/07/2017 | | Results for this | | | | 11:44 AM | | procedure are in the | | | | PDT | | results section. | + +--------+ + + + | XR CHEST AP PORTABLE | STAT | 05/07/2017 | | Results for this | | | | 11:39 AM | | procedure are in the | | | | PDT | | results section. | + +--------+ + + + | TROPONIN I | STAT | 05/07/2017 | | Results for this | | | | 11:35 AM | | procedure are in the | | | | PDT | | results section. | + +--------+ + + + | PROTIME INR | STAT | 05/07/2017 | | Results for this | | | | 11:35 AM | | procedure are in the | | | | PDT | | results section. | + +--------+ + + + | CBC NO DIFFERENTIAL | STAT | 05/07/2017 | | Results for this | | | | 11:35 AM | | procedure are in the | | | | PDT | | results section. | + +--------+ + + + | BASIC METABOLIC | STAT | 05/07/2017 | | Results for this | | PANEL | | 11:35 AM | | procedure are in the | | | | PDT | | results section. | + +--------+ + + + | ED INFORMATION | Routin | 05/07/2017 | | | | EXCHANGE | e | 11:10 AM | | | | | | PDT | | | + +--------+ + + + +---+--------+ | | | | | Proced | | | ure | | | Note - | | | Radha, | | | Lab In | | | | | | Hlseve | | | n - | | | 05/07/ | | | 2016 | | | 11:11 | | | AM PDT | | | | | | Format | | | ting | | | of | | | this | | | note | | | might | | | be | | | differ | | | ent | | | from | | | the | | | origin | | | al.RADHA | | | E?NOTI | | | FICATI | | | ON?/ | | | | | | 7 | | | 11:07? | | | AMANDA, | | | JACKLYN | | | ?MRN: | | | [id number] | | | [id number] | | | his | | | patien | | | t has | | | regist | | | ered | | | at the | | | | | | Provid | | | ence | | | [facility] | | | [facility] | | | | | | Emerge | | | ncy | | | Depart | | | ment | | | For | | | more | | | inform | | | ation | | | visit: | | | | | | https: | | | //secu | | | [email or web address] | | | ecarep | | | loki.co | | | m/mary | | | ent/cd | | | [id number] | | | [phone] | | | [id number] | | | [id number] | | | [id number] | | | [phone] | | | ED | | | Care | | | Guidel | | | inesTh | | | ere | | | are | | | curren | | | tly no | | | ED | | | Care | | | Guidel | | | seferino | | | in | | | SHAZIA | | | for | | | this | | | patien | | | t. | | | Please | | | check | | | your | | | facili | | | ty's | | | medica | | | l | | | record | | | s | | | system | | | .Recen | | | t | | | Emerge | | | ncy | | | Depart | | | ment | | | Visit | | | Summar | | | yAdmit | | | Date | | | Facili | | | ty | | | City | | | State | | | Type | | | Major | | | Type | | | Diagno | | | ses or | | | Chief | | | | | | Compla | | | int | | | Justin | | | 18, | | | 2017 | | | Provid | | | ence | | | [facility] | [facility] | | [place] | | | [place] | | | Emerge | | | ncy | | | Emerge | | | ncy | | | fall | | | Justin | | | 6, | | | 2017 | | | [facility] | | | [facility] | | | [place] | | | [place] | | | Emerge | | | ncy | | | Emerge | | | ncy | | | Other | | | long | | | term | | | (curre | | | nt) | | | drug | | | therap | | | y | | | Presen | | | ce of | | | prosth | | | etic | | | heart | | | valve | | | | | | Long | | | term | | | (curre | | | nt) | | | use of | | | | | | antico | | | agulan | | | ts | | | Hypert | | | ensive | | | heart | | | | | | diseas | | | e with | | | heart | | | | | | failur | | | e | | | Unspec | | | ified | | | atrial | | | | | | fibril | | | lation | | | | | | Cellul | | | itis, | | | unspec | | | ified | | | | | | Palpit | | | ations | | | | | | Hyperl | | | ipidem | | | ia, | | | unspec | | | ified | | | | | | Heart | | | failur | | | e, | | | unspec | | | ified | | | Justin | | | 2, | | | 2017 | | | [facility] | | | [facility] | | | [place] | | | [place] | | | Emerge | | | ncy | | | Emerge | | | ncy | | | | | | Hypert | | | ensive | | | heart | | | | | | diseas | | | e with | | | heart | | | | | | failur | | | e | | | Unspec | | | ified | | | hearin | | | g | | | loss, | | | unspec | | | ified | | | ear | | | Heart | | | | | | failur | | | e, | | | unspec | | | ified | | | | | | Long | | | term | | | (curre | | | nt) | | | use of | | | | | | antico | | | agulan | | | ts | | | Other | | | long | | | term | | | (curre | | | nt) | | | drug | | | therap | | | y | | | Presen | | | ce of | | | prosth | | | etic | | | heart | | | valve | | | | | | Fever, | | | | | | unspec | | | ified | | | | | | Cellul | | | itis | | | of | | | left | | | lower | | | limb | | | Deven | | | 21, | | | 2017 | | | [facility] | | | [facility] | | | [place] | | | [place] | | | Emerge | | | ncy | | | Emerge | | | ncy | | | Chief | | | Compla | | | int: L | | | LEG | | | PAIN/N | | | O | | | INJURY | | | May | | | 10, | | | 2017 | | | Provid | | | ence | | | [facility] | [facility] | | [place] | | | [place] | | | Emerge | | | ncy | | | Emerge | | | ncy | | | Chest | | | Pain | | | | | | Bradyc | | | ardia, | | | | | | unspec | | | ified | | | | | | Pleura | | | l | | | effusi | | | on, | | | not | | | elsewh | | | ere | | | classi | | | fied | | | | | | Abnorm | | | al | | | coagul | | | ation | | | profil | | | e | | | Abnorm | | | al | | | levels | | | of | | | other | | | serum | | | enzyme | | | s | | | Acute | | | kidney | | | | | | failur | | | e, | | | unspec | | | ified | | | | | | Hyperk | | | alemia | | | E.D. | | | Visit | | | Count | | | (12 | | | mo.)Fa | | | cility | | | | | | Visits | | | Low | | | Acuity | | | | | | Provid | | | ence | | | St[facility] | | | [facility] | | | l | | | Center | | | 2 0 | | | [facility] | | | y | | | Hospit | | | al 7 0 | | | Total | | | 9 0 | | | Note: | | | Visits | | | | | | indica | | | te | | | total | | | known | | | visits | | | . | | | Medica | | | id Low | | | | | | Acuity | | | Dx | | | are | | | the | | | number | | | of | | | primar | | | y | | | diagno | | | ses on | | | the | | | Medica | | | id's | | | Low | | | Acuity | | | dx | | | list. | | | | | | Recent | | | | | | Inpati | | | ent | | | Visit | | | Summar | | | yAdmit | | | Date | | | Facili | | | ty | | | City | | | State | | | Type | | | Major | | | Type | | | Diagno | | | ses or | | | Chief | | | | | | Compla | | | int | | | May | | | 10, | | | 2017 | | | Provid | | | ence | | | [facility] | [facility] | | [place] | | | [place] | | | Medica | | | lSurgi | | | herberth | | | Inpati | | | ent | | | Acute | | | | | | kidney | | | | | | failur | | | e, | | | unspec | | | ified | | | | | | Pleura | | | l | | | effusi | | | on, | | | not | | | elsewh | | | ere | | | classi | | | fied | | | | | | Hyperk | | | alemia | | | | | | Bradyc | | | ardia, | | | | | | unspec | | | ified | | | | | | Abnorm | | | al | | | coagul | | | ation | | | profil | | | e | | | Abnorm | | | al | | | levels | | | of | | | other | | | serum | | | enzyme | | | s | | | Washin | | | gton | | | PDMP | | | Report | | | Rx | | | Detail | | | s (6 | | | Mo.)Fi | | | ll | | | Date | | | Drug | | | Descri | | | ption | | | Qty. | | | Prescr | | | iber | | | CS MED | | | | | | 2017-0 | | | 7-12 | | | HYDROC | | | ODON-A | | | CETAMI | | | NOPHEN | | | 5-325 | | | 84 | | | TIMOTH | | | Y | | | WALKER | | | 2 15 | | | 2017-0 | | | 3-10 | | | HYDROC | | | ODON-A | | | CETAMI | | | NOPHEN | | | 5-325 | | | 84 | | | MICAIA | | | H | | | MUSHTAQ | | | 2 15 | | | 2017-0 | | | 1-31 | | | HYDROC | | | ODON-A | | | CETAMI | | | NOPHEN | | | 5-325 | | | 84 | | | TIMOTH | | | Y | | | WALKER | | | 2 15 | | | Rx | | | Summar | | | y (12 | | | Mo.)Me | | | tric | | | Count | | | CS | | | II-V | | | Rx 10 | | | CS-II | | | Rx 10 | | | Quanti | | | ty | | | Dispen | | | sed | | | 924 | | | Unique | | | | | | Prescr | | | ibers | | | 3 | | | Unique | | | | | | Pharma | | | cies 1 | | | | | | Benzos | | | 0 | | | Opioid | | | s 10 | | | Long | | | Acting | | | | | | Opioid | | | s 0 | | | Care | | | Provid | | | ersPro | | | vider | | | PRC | | | Type | | | Phone | | | Fax | | | Servic | | | e | | | Dates | | | ISA | | | E | | | JONATHAN | | | ON | | | Primar | | | y Care | | | Deven | | | 1, | | | 2016 - | | | | | | Curren | | | t | | | Criter | | | ia met | | | PDMP | | | 4 | | | visits | | | in | | | 60Know | | | n | | | Aliase | | | sNo | | | known | | | aliase | | | s. The | | | above | | | | | | inform | | | ation | | | is | | | provid | | | ed for | | | the | | | sole | | | purpos | | | e of | | | patien | | | t | | | treatm | | | ent. | | | Use of | | | this | | | inform | | | ation | | | beyond | | | the | | | terms | | | of | | | Data | | | Sharin | | | g | | | Memora | | | ndum | | | of | | | Unders | | | tandin | | | g and | | | Licens | | | e | | | Agreem | | | ent is | | | | | | prohib | | | ited. | | | In | | | certai | | | n | | | cases | | | not | | | all | | | visits | | | may | | | be | | | repres | | | ented. | | | | | | Consul | | | t the | | | aforem | | | ention | | | ed | | | facili | | | ties | | | for | | | additi | | | onal | | | inform | | | ation. | | | ? | | | 2017 | | | Colle[facility] | | | tive | | | Medica | | | l | | | [employer] | | | logies | | | , [employer] | | | - | | | [place] | | | [place] | | | [place], | | | [place] - | | | [email or web address]@c | | | ollect | | | ivemed | | | icalte | | | ch.com | | | | +---+--------+ documented in this encounter Results Protime INR (05/16/2017 5:39 AM PDT) + + + + + + | Component | Value | Ref Range | Performed | Pathologist | | | | | At | Signature | + + + + + + | Prothrombin | 16.6 (H) | 11.3 - 13.9 | [facility] | | | Time | | seconds | [facility] | | | | | | [facility] | | | | | | [facility] - | | | | | | LABORATORY | | + + + + + + | INR | 1.31 (H)Comment: Usual | 0.90 - 1.10 | [facility] | | | | Oral Anticoagulation | | [facility] | | | | Range: 2.0 - | | MEDICAL | | | | 3.0High Level Oral | | CENTER - | | | | Anticoagulation Range: | | LABORATORY | | | | 2.5 - 3.5 | | | | + + + + + + + + | Specimen | + + | Blood | + + + + + + + | Performing | Address | City/State/Zipcode | Phone Number | | Organization | | | | + + + + + | [facility] | [address] | [place] | [phone] | | [facility] | | [address] | | | - LABORATORY | | | | + + + + + Protime INR (05/15/2017 4:24 AM PDT) + + + + + + | Component | Value | Ref Range | Performed | Pathologist | | | | | At | Signature | + + + + + + | Prothrombin | 16.7 (H) | 11.3 - 13.9 | [facility] | | | Time | | seconds | [facility] | | | | | | [facility] | | | | | | CENTER - | | | | | | LABORATORY | | + + + + + + | INR | 1.32 (H)Comment: Usual | 0.90 - 1.10 | [facility] | | | | Oral Anticoagulation | | [facility] | | | | Range: 2.0 - | | MEDICAL | | | | 3.0High Level Oral | | CENTER - | | | | Anticoagulation Range: | | LABORATORY | | | | 2.5 - 3.5 | | | | + + + + + + + + | Specimen | + + | Blood | + + + + + + + | Performing | Address | City/State/Zipcode | Phone Number | | Organization | | | | + + + + + | [facility] | [address] | [place] | [phone] | | [facility] | | [address] | | | - LABORATORY | | | | + + + + + Creatinine (05/14/2017 5:53 PM PDT) + + + + + + | Component | Value | Ref Range | Performed | Pathologist | | | | | At | Signature | + + + + + + | Creatinine | 1.20 | 0.60 - 1.30 | [facility] | | | | | mg/dL | [facility] | | | | | | [facility] | | | | | | CENTER - | | | | | | LABORATORY | | + + + + + + | eGFR if not | 58 (L)Comment: | >=60 | [facility] | | | | GLOMERULAR FILTRATION | mL/min/1.73m2 | [facility] | | | [place] | RATE,ESTIMATED | | MEDICAL | | | | mL/min/1.13c7Kdds than | | CENTER - | | | | 60 Chronic kidney | | LABORATORY | | | | disease,if found over a | | | | | | 3-month period.Less than | | | | | | 15 Kidney failureFor | | | | | | | | | | | | Americans,multiply the | | | | | | calculated GFR by 1.21. | | | | | | | | | | + + + + + + + + | Specimen | + + | Blood | + + + + + + + | Performing | Address | City/State/Zipcode | Phone Number | | Organization | | | | + + + + + | [facility] | [address] | [place] | [phone] | | [facility] | | [address] | | | - LABORATORY | | | | + + + + + CBC no Differential (05/14/2017 5:53 PM PDT) + + + + + + | Component | Value | Ref Range | Performed | Pathologist | | | | | At | Signature | + + + + + + | White Blood | 9.5 | 4.0 - 11.0 K/uL | [facility] | | | Cells | | | [facility] | | | | | [facility] | | | | | | CENTER - | | | | | | LABORATORY | | + + + + + + | Red Blood | 3.22 (L) | 4.30 - 5.70 | [facility] | | | Cells | | M/uL | [facility] | | | | | | MEDICAL | | | | | | CENTER - | | | | | | LABORATORY | | + + + + + + | Hemoglobin | 9.6 (L) | 13.5 - 18.0 | [facility] | | | | | g/dL | [facility] | | | | | | MEDICAL | | | | | | CENTER - | | | | | | LABORATORY | | + + + + + + | Hematocrit | 29.4 (L) | 40.0 - 51.0 % | [facility] | | | | | | [facility] | | | | | | MEDICAL | | | | | | CENTER - | | | | | | LABORATORY | | + + + + + + | MCV | 91.4 | 83.0 - 101.0 fL | [facility] | | | | | | [facility] | | | | | | MEDICAL | | | | | | CENTER - | | | | | | LABORATORY | | + + + + + + | MCH | 29.7 | 28.0 - 35.0 pg | [facility] | | | | | | [facility] | | | | | | MEDICAL | | | | | | CENTER - | | | | | | LABORATORY | | + + + + + + | MCHC | 32.5 | 32.0 - 36.0 | [facility] | | | | | g/dL | [facility] | | | | | | MEDICAL | | | | | | CENTER - | | | | | | LABORATORY | | + + + + + + | RDW-CV | 16.5 (H) | <15.0 % | [facility] | | | | | | [facility] | | | | | | MEDICAL | | | | | | CENTER - | | | | | | LABORATORY | | + + + + + + | Platelet | 136 (L) | 140 - 440 K/uL | [facility] | | | Count | | | [facility] | | | | | | MEDICAL | | | | | | CENTER - | | | | | | LABORATORY | | + + + + + + | MPV | 8.3 | fL | [facility] | | | | | | [facility] | | | | | | [facility] | | | | | | C[facility] - | | | | | | LABORATORY | | + + + + + + + + | Specimen | + + | Blood | + + + + + + + | Performing | Address | City/State/Zipcode | Phone Number | | Organization | | | | + + + + + | [facility] | [address] | [place] | [phone] | | [facility] | | [address] | | | - LABORATORY | | | | + + + + + ECG 12 lead (05/14/2017 11:23 AM PDT) + + + + + + | Component | Value | Ref Range | Performed | Pathologist | | | | | At | Signature | + + + + + + | VENTRICULAR | 100 | BPM | [facility] | | | RATE EKG | | | | | + + + + + + | ATRIAL RATE | 98 | BPM | [facility] | | + + + + + + | P-R | 124 | ms | [facility] | | | INTERVAL | | | | | + + + + + + | QRS | 186 | ms | [facility] | | | DURATION | | | | | + + + + + + | Q-T | 492 | ms | [facility] | | | INTERVAL | | | | | + + + + + + | Q-T | 634 | ms | [facility] | | | INTERVAL | | | | | | (CORRECTED) | | | | | + + + + + + | QRS AXIS | -63 | degrees | [facility] | | + + + + + + | T AXIS | 115 | degrees | [facility] | | + + + + + + | INTERPRETAT | AV dual-paced rhythm | | [facility] | | | ION TEXT | with single non-paced | | | | | | complexAbnormal ECGWhen | | | | | | compared with ECG of | | | | | | 12-MAY-2017 | | | | | | 09:34,Electronic | | | | | | ventricular pacemaker | | | | | | has replaced Sinus | | | | | | rhythmConfirmed by | | | | | | BINU MACK MD ([id number]) | | | | | | on 05/15/2017 5:57:23 AM | | | | + + + + + + + + | Specimen | + + | | + + + + + | Narrative | Performed At | + + + | | | + + + + +---------+ + + | Performing | Address | City/State/Zipcode | Phone Number | | Organization | | | | + +---------+ + + | [facility] | | | | + +---------+ + + ECG 12 lead (05/14/2017 11:21 AM PDT) + + + + + + | Component | Value | Ref Range | Performed | Pathologist | | | | | At | Signature | + + + + + + | VENTRICULAR | 63 | BPM | [facility] | | | RATE EKG | | | | | + + + + + + | ATRIAL RATE | 63 | BPM | [facility] | | + + + + + + | P-R | 120 | ms | [facility] | | | INTERVAL | | | | | + + + + + + | QRS | 134 | ms | [facility] | | | DURATION | | | | | + + + + + + | Q-T | 452 | ms | [facility] | | | INTERVAL | | | | | + + + + + + | Q-T | 462 | ms | [facility] | | | INTERVAL | | | | | | (CORRECTED) | | | | | + + + + + + | P WAVE AXIS | 75 | degrees | [facility] | | + + + + + + | QRS AXIS | -23 | degrees | [facility] | | + + + + + + | T AXIS | 150 | degrees | [facility] | | + + + + + + | INTERPRETAT | Atrial-paced | | [facility] | | | ION TEXT | rhythmNonspecific | | | | | | intraventricular | | | | | | blockMarked T wave | | | | | | abnormality, consider | | | | | | lateral ischemiaAbnormal | | | | | | ECGWhen compared with | | | | | | ECG of 12-MAY-2017 | | | | | | 09:34,Electronic atrial | | | | | | pacemaker has replaced | | | | | | Sinus rhythmConfirmed by | | | | | | BINU MACK MD ([id number]) | | | | | | on 05/15/2017 5:56:04 AM | | | | | | | | | | + + + + + + + + | Specimen | + + | | + + + + + | Narrative | Performed At | + + + | | | + + + + +---------+ + + | Performing | Address | City/State/Zipcode | Phone Number | | Organization | | | | + +---------+ + + | [facility] | | | | + +---------+ + + XR Chest PA and Lateral (05/14/2017 8:58 AM PDT) + + | Specimen | + + | | + + + + + | Narrative | Performed At | + + + | EXAM: XR CHEST PA AND LATERAL dated 05/14/2017 8:58 AM HISTORY: | [facility] | | post cardiac device procedure, document lead position and rule out | | | pneumothorax Comparison: May 13, 2017. TECHNIQUE: Frontal and | | | lateral views of the chest. FINDINGS: Interval placement of a | | | dual-lead cardiac device implant on the left chest. Atrial and | | | ventricular leads are in place. No pneumothorax. Stable | | | positioning of the right PICC line catheter. Persistent | | | consolidation in the left lung. Stable cardiac contour enlargement. | | | Upper changes consistent with prior valvular repair surgery. | | | IMPRESSION - Interval placement of a dual-lead implanted cardiac | | | device. No postprocedural complication. Persistent left base | | | consolidation. Dictated and Signed by: Paco Villasenor MD | | | Electronically signed: 05/14/2017 9:44 AM | | + + + + + | Procedure Note | + + | Radha, Rad Results In - 05/14/2017 9:47 AM PDT EXAM: XR CHEST PA AND LATERAL dated | | 05/14/2017 8:58 AMHISTORY: post cardiac device procedure, document lead position and rule | | outpneumothoraxComparison: May 13, 2017.TECHNIQUE: Frontal and lateral views of the | | chest.FINDINGS:Interval placement of a dual-lead cardiac device implant on the left | | chest. Atrial and ventricular leads are in place. No pneumothorax. Stable | | positioningof the right PICC line catheter. Persistent consolidation in the left lung. | | Stable cardiac contour enlargement. Upper changes consistent with priorvalvular repair | | surgery.IMPRESSION -Interval placement of a dual-lead implanted cardiac device. No | | postproceduralcomplication. Persistent left base consolidation.Dictated and Signed by: | | Paco Villasenor MD Electronically signed: 05/14/2017 9:44 AM | | | |Interval placement of a dual-lead cardiac device implant on the left chest. | |Atrial and ventricular leads are in place. No pneumothorax. Stable positioning | |of the right PICC line catheter. Persistent consolidation in the left lung. | |Stable cardiac contour enlargement. Upper changes consistent with prior | |valvular repair surgery. | | | |IMPRESSION - | | | |Interval placement of a dual-lead implanted cardiac device. No postprocedural | |complication. | | | |Persistent left base consolidation. | | | |Dictated and Signed by: Paco Villasenor MD | | Electronically signed: 05/14/2017 9:44 AM | + + + +---------+ + + | Performing | Address | City/State/Zipcode | Phone Number | | Organization | | | | + +---------+ + + | [facility] | | | | + +---------+ + + CV EP PROCEDURE (05/14/2017 8:43 AM PDT) + + | Specimen | + + | | + + + + + | Narrative | Performed At | + + + | [facility] | | | MD Marge 05/14/2017 8:41 PERMANENT PACEMAKER IMPLANTATION | | | PATIENT NAME: Jacklyn Siddiqi : 1935: AGE: 81 | | | y.o. PRIMARY CARE:Antonio Joya | | | GARY PaulinoURGEON:Cruzito Bird MD DATE OF PROCEDURE: | | | 05/14/2017 PROCEDURES PERFORMED:1. Utilization of contrast agent | | | for left subclavian venography.2. Dual chamber [employer] permanent | | | pacemaker implantation. INDICATIONS: 1. Symptomatic irreversible | | | tachycardia/bradycardia syndrome with atrial fibrillation DESCRIPTION | | | OF PROCEDURE: After informed consent was obtained, the patient was | | | taken to the hatchery laborer. 1 g of cefazolin was given intravenously. | | | Patient was hooked up to EKG, pulse oximetry and blood pressure | | | monitoring. All parameters were kept stable during procedure. The | | | [employer] pacemaker publications sales representative was present in the operating room. | | | Patient received 0.5 mg of Versed and 75 mcg of fentanyl | | | intravenously for conscious sedation during the procedure. The left | | | shoulder area was prepped and draped in the standard fashion. The | | | left subclavian venogram was performed using 20 mL of Conray IV | | | contrast. Fluoroscopy was utilized during the procedure. Patient | | | was positioned supine with wedge pillow placed under bilateral lower | | | extremities. Under sterile technique, and 40 mL of 2:3 ratio of 1% | | | lidocaine and 0.5% marcaine without epinephrine injection for local | | | anesthesia, the left subclavian venous access was obtained using a | | | thin-wall needle via modified Seldinger technique. A guidewire was | | | placed in the superior vena cava and secured with a hemostat to the | | | drape. Approximately 3 cm below the lower border of left clavicle, | | | in the mid subclavicular area, a 3 to 6 cm long lateral incision was | | | made with a #15 blade. The incision was extended by cautery down to | | | the prepectoral fascia. A pocket was formed to the inferior and | | | slightly superior by blunt dissection. The bleeders were stopped | | | with cautery. One piece of gauze soaked with normal saline was used | | | to pack the pocket. A guide wire was then pulled through into the | | | pocket. A 6 [place] sheath was placed over the guidewire and the core | | | was removed. The additional guidewires were inserted through the | | | sheath. The sheath was then removed. The guidewires were secured | | | by hemostat, leaving one guidewire to be utilized for placement of an | | | 8 [place] safe sheath. A safe sheath core and the guidewire were | | | removed. The ventricular lead with a curved stylette was advanced | | | into the right ventricular outflow tract under fluoroscopy. The | | | curved stylet was then exchanged for a straight one. The lead was | | | gently positioned into right ventricular apex and screwed into | | | position. With partial retraction of the stylette, the lead appeared | | | to be stable. Appropriate slack was applied to the lead. The lead | | | testing revealed good sensing and pacing threshold as noted below. | | | There was no evidence of diaphragmatic stimulation at 10 V output. | | | The peel-away safe sheath was removed. The lead was anchored down | | | using a 2-0 silk, suturing the sleeve to the underlying fascia. Using | | | the same technique as mentioned above, another 8 [place] safe sheath | | | was utilized to introduce an atrial lead, except that the straight | | | stylette was utilized before the curved one. The atrial lead was | | | positioned in the right atrial appendage. At this time the stylets | | | were removed from both leads. Under fluoroscopy, atrial and | | | ventricular leads and the slack were checked one more time, confirming | | | satisfactory position. The third guidewire was then removed. Both | | | leads were checked for model and serial numbers, and connected to a | | | pacemaker generator. Set screws, both, were securely ratcheted. | | | Both leads were tight and snug. With ratcheting the ventricular | | | and atrial leads, there was evidence of ventricular and atrial | | | tracking and pacing, respectively. The leads were coiled and placed | | | behind the fascia. The pocket was flushed with normal saline. | | | Hemostasis was obtained. A two layer running closure was performed | | | with a 2-0 Vicryl for prepectoral fascia and subcutaneous fatty | | | tissue. Continuous subcuticular suturing was performed with a 4-0 | | | Vicryl. The skin sealed with a layer of Dermabond. Pacemaker | | | interrogation and programming were performed with details as mentioned | | | below. Estimated blood loss was 50 mL. COMPLICATIONS: There were no | | | complications. The patient tolerated the procedure well. Postop | | | chest x-ray revealed that the atrial lead, ventricular lead and | | | pacemaker generator were in good position. There is no evidence of | | | pneumothorax. DEVICE INFORMATION: A. Pacemaker generator: [employer], | | | model #: PM 2272, serial #: [id number]. B. Atrial lead: [employer], | | | length 46 cm, model #: LPA 1200 M, serial #: [id number]. C. | | | Ventricular lead: [employer], length 52 cm, model #: LPA 1200M, serial | | | #: [id number]. PACEMAKER TESTING: A. Atrial lead: Sensing 2.4 mV, | | | threshold 0.5 V at 0.4 ms, resistance 440 ohms. B. Ventricular lead: | | | Sensing 17 mV, threshold 0.5 V at 0.4 ms, resistance 490 ohms. | | | PACEMAKER TESTING: Mode: DDDR. Lower rate limit: 60 ppm. Upper | | | limit: 120 ppm. Cruzito Bird MD05/14/2017 8:36 | | |model and serial numbers, and connected to a pacemaker generator. | | | Set screws, both, were securely ratcheted. Both leads were | | |tight and snug. With ratcheting the ventricular and atrial | | |leads, there was evidence of ventricular and atrial tracking and | | |pacing, respectively. The leads were coiled and placed behind | | |the fascia. The pocket was flushed with normal saline. | | |Hemostasis was obtained. A two layer running closure was | | |performed with a 2-0 Vicryl for prepectoral fascia and | | |subcutaneous fatty tissue. Continuous subcuticular suturing was | | |performed with a 4-0 Vicryl. The skin sealed with a layer of | | |Dermabond. Pacemaker interrogation and programming were | | |performed with details as mentioned below. | | | | | |Estimated blood loss was 50 mL. | | | | | |COMPLICATIONS: There were no complications. The patient | | |tolerated the procedure well. Postop chest x-ray revealed that | | |the atrial lead, ventricular lead and pacemaker generator were in | | |good position. There is no evidence of pneumothorax. | | | | | |DEVICE INFORMATION: | | |A. Pacemaker generator: [employer], model #: PM 2272, serial #: | | |[id number]. | | | | | |B. Atrial lead: [employer], length 46 cm, model #: LPA 1200 M, | | |serial #: [id number]. | | | | | |C. Ventricular lead: [employer], length 52 cm, model #: LPA 1200M, | | |serial #: [id number]. | | | | | |PACEMAKER TESTING: | | |A. Atrial lead: Sensing 2.4 mV, threshold 0.5 V at 0.4 ms, | | |resistance 440 ohms. | | | | | |B. Ventricular lead: Sensing 17 mV, threshold 0.5 V at 0.4 ms, | | |resistance 490 ohms. | | | | | |PACEMAKER TESTING: | | |Mode: DDDR. Lower rate limit: 60 ppm. Upper limit: 120 ppm. | | | | | | | | |Cruzito Bird MD | | |05/14/2017 8:36 | | | | | | | | + + + + + | Procedure Note | + + | Cruzito Bird MD - 05/14/2017 8:35 AM PDT Formatting of this note might be | | different from the original.PERMANENT PACEMAKER IMPLANTATIONPATIENT NAME: Jacklyn Siddiqi | | : 1935: AGE: 81 y.o. PRIMARY | | CARE:GARY BossURGEON:Cruzito Bird MD DATE OF PROCEDURE: 05/14/2017 | | PROCEDURES PERFORMED:1. Utilization of contrast agent for left subclavian venography.2. | | Dual chamber [employer] permanent pacemaker implantation.INDICATIONS: 1. 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 | | 1 g of cefazolin was given intravenously. Patient was hooked up to EKG, pulse oximetry | | and blood pressure monitoring. All parameters were kept stable during procedure. The | | [employer] pacemaker publications sales representative was present in the operating room. Patient received | | 0.5 mg of Versed and 75 mcg of fentanyl intravenously for conscious sedation during the | | procedure. The left shoulder area was prepped and draped in the standard fashion. The | | left subclavian venogram was performed using 20 mL of Conray IV contrast. Fluoroscopy | | was utilized during the procedure. Patient was positioned supine with wedge pillow | | placed under bilateral lower extremities. Under sterile technique, and 40 mL of 2:3 | | ratio of 1% lidocaine and 0.5% marcaine without epinephrine injection for local | | anesthesia, the left subclavian venous access was obtained using a thin-wall needle via | | modified Seldinger technique. A guidewire was placed in the superior vena cava and | | secured with a hemostat to the drape. Approximately 3 cm below the lower border of left | | clavicle, in the mid subclavicular area, a 3 to 6 cm long lateral incision was made | | with a #15 blade. The incision was extended by cautery down to the prepectoral fascia. | | A pocket was formed to the inferior and slightly superior by blunt dissection. The | | bleeders were stopped with cautery. One piece of gauze soaked with normal saline was | | used to pack the pocket. A guide wire was then pulled through into the pocket. A 6 | | [place] sheath was placed over the guidewire and the core was removed. The additional | | guidewires were inserted through the sheath. The sheath was then removed. The | | guidewires were secured by hemostat, leaving one guidewire to be utilized for placement | | of an 8 [place] safe sheath. A safe sheath core and the guidewire were removed. The | | ventricular lead with a curved stylette was advanced into the right ventricular outflow | | tract under fluoroscopy. The curved stylet was then exchanged for a straight one. The | | lead was gently positioned into right ventricular apex and screwed into position. With | | partial retraction of the stylette, the lead appeared to be stable. Appropriate slack | | was applied to the lead. The lead testing revealed good sensing and pacing threshold as | | noted below. There was no evidence of diaphragmatic stimulation at 10 V output. The | | peel-away safe sheath was removed. The lead was anchored down using a 2-0 silk, | | suturing the sleeve to the underlying fascia.Using the same technique as mentioned | | above, another 8 [place] safe sheath was utilized to introduce an atrial lead, except | | that the straight stylette was utilized before the curved one. The atrial lead was | | positioned in the right atrial appendage. At this time the stylets were removed from | | both leads. Under fluoroscopy, atrial and ventricular leads and the slack were checked | | one more time, confirming satisfactory position. The third guidewire was then removed. | | Both leads were checked for model and serial numbers, and connected to a pacemaker | | generator. Set screws, both, were securely ratcheted. Both leads were tight and snug. | | With ratcheting the ventricular and atrial leads, there was evidence of ventricular and | | atrial tracking and pacing, respectively. The leads were coiled and placed behind the | | fascia. The pocket was flushed with normal saline. Hemostasis was obtained. A two | | layer running closure was performed with a 2-0 Vicryl for prepectoral fascia and | | subcutaneous fatty tissue. Continuous subcuticular suturing was performed with a 4-0 | | Vicryl. The skin sealed with a layer of Dermabond. Pacemaker interrogation and | | programming were performed with details as mentioned below.Estimated blood loss was 50 | | mL.COMPLICATIONS: There were no complications. The patient tolerated the procedure | | well. Postop chest x-ray revealed that the atrial lead, ventricular lead and pacemaker | | generator were in good position. There is no evidence of pneumothorax.DEVICE | | INFORMATION: A. Pacemaker generator: [employer], model #: PM 2272, serial #: [id number].B. | | Atrial lead: [employer], length 46 cm, model #: LPA 1200 M, serial #: [id number].C. | | Ventricular lead: [employer], length 52 cm, model #: LPA 1200M, serial #: [id number] | | [id number].PACEMAKER TESTING: A. Atrial lead: Sensing 2.4 mV, threshold 0.5 V at 0.4 ms, | | resistance 440 ohms.B. Ventricular lead: Sensing 17 mV, threshold 0.5 V at 0.4 ms, | | resistance 490 ohms.PACEMAKER TESTING: Mode: DDDR. Lower rate limit: 60 ppm. Upper | | limit: 120 ppm.Cruzito Bird MD05/14/2017 8:36 | |B. Ventricular lead: Sensing 17 mV, threshold 0.5 V at 0.4 ms, resistance 490 ohms. | | | |PACEMAKER TESTING: | |Mode: DDDR. Lower rate limit: 60 ppm. Upper limit: 120 ppm. | | | | | |Cruzito Bird MD | |05/14/2017 8:36 | + + XR Chest AP Portable (05/13/2017 5:37 PM PDT) + + | Specimen | + + | | + + + + + | Narrative | Performed At | + + + | XR Chest AP Portable 05/13/2017 5:34 PM HISTORY: Confirm PICC tip | [facility] | | placement. COMPARISON: Multiple priors. Findings: There has | | | been interval placement of a right PICC line with tip at the | | | cavoatrial junction. Sternotomy wires are present. The heart is | | | enlarged. There is atherosclerosis of the aorta. Mediastinum is | | | unremarkable. Central pulmonary vasculature is normal. A small left | | | pleural effusion is present with mild compressive atelectasis that is | | | stable. Mild atelectasis is in the right lung base. There is mild to | | | moderate spondylosis. IMPRESSION - Interval right PICC line with | | | tip at cavoatrial junction. Cardiomegaly. Stable left pleural | | | effusion. These findings were conveyed to infusion services. | | | Dictated and Signed by: Deep Garcia MD Electronically signed: | | | 05/13/2017 5:36 PM | | + + + + + | Procedure Note | + + | Radha, Rad Results In - 05/13/2017 5:39 PM PDT XR Chest AP Portable 05/13/2017 5:34 PM | | | | HISTORY: Confirm PICC tip placement. | | | | COMPARISON: Multiple priors. | | | | Findings: | | There has been interval placement of a right PICC line with tip at the | | cavoatrial junction. Sternotomy wires are present. The heart is enlarged. There | | is atherosclerosis of the aorta. Mediastinum is unremarkable. Central pulmonary | | vasculature is normal. A small left pleural effusion is present with mild | | compressive atelectasis that is stable. Mild atelectasis is in the right lung | | base. There is mild to moderate spondylosis. | | | | IMPRESSION - | | Interval right PICC line with tip at cavoatrial junction. | | | | Cardiomegaly. | | | | Stable left pleural effusion. | | | | These findings were conveyed to infusion services. | | | | Dictated and Signed by: Deep Garcia MD | | Electronically signed: 05/13/2017 5:36 PM | + + + +---------+ + + | Performing | Address | City/State/Zipcode | Phone Number | | Organization | | | | + +---------+ + + | [facility] | | | | + +---------+ + + XR Chest AP Portable (05/13/2017 3:02 PM PDT) + + | Specimen | + + | | + + + + + | Narrative | Performed At | + + + | XR CHEST AP PORTABLE 05/13/2017 2:56 PM HISTORY: pre/op | [facility] | | generator/battery change. COMPARISON: Multiple priors. | | | Findings: Sternotomy wires are observed. The heart is enlarged. There | | | is atherosclerosis of the aorta. Mediastinum is unremarkable. | | | Central pulmonary vasculature is normal. A small left pleural | | | effusion is present with mild compressive atelectasis that is stable. | | | Mild atelectasis is in the right lung base. There is mild to | | | moderate spondylosis. IMPRESSION - Cardiomegaly. Stable left | | | pleural effusion. Dictated and Signed by: Deep Garcia MD | | | Electronically signed: 05/13/2017 5:37 PM | | + + + + + | Procedure Note | + + | Radha, Rad Results In - 05/13/2017 5:40 PM PDT XR CHEST AP PORTABLE 05/13/2017 2:56 PM | | | | HISTORY: pre/op generator/battery change. | | | | COMPARISON: Multiple priors. | | | | Findings: | | Sternotomy wires are observed. The heart is enlarged. There is atherosclerosis | | of the aorta. Mediastinum is unremarkable. Central pulmonary vasculature is | | normal. A small left pleural effusion is present with mild compressive | | atelectasis that is stable. Mild atelectasis is in the right lung base. There is | | mild to moderate spondylosis. | | | | IMPRESSION - | | Cardiomegaly. | | | | Stable left pleural effusion. | | | | Dictated and Signed by: Deep Garcia MD | | Electronically signed: 05/13/2017 5:37 PM | + + + +---------+ + + | Performing | Address | City/State/Zipcode | Phone Number | | Organization | | | | + +---------+ + + | [facility] | | | | + +---------+ + + Retic Count (05/13/2017 10:09 AM PDT) + +---------+ + + + | Component | Value | Ref Range | Performed | Pathologist | | | | | At | Signature | + +---------+ + + + | % | 2.3 (H) | 0.5 - 1.5 % | [facility] | | | Reticul[facility] | | | [facility] | | | e Count | | | [facility] | | | | | | [facility] - | | | | | | LABORATORY | | + +---------+ + + + | Absolute | 0.0721 | M/uL | [facility] | | | Reticulocyt | | | [facility] | | | e Count | | | [facility] | | | | | | [facility] - | | | | | | LABORATORY | | + +---------+ + + + + + | Specimen | + + | Blood | + + + + + + + | Performing | Address | City/State/Zipcode | Phone Number | | Organization | | | | + + + + + | [facility] | [address] | [place] | [phone] | | [facility] | | [address] | | | - LABORATORY | | | | + + + + + Haptoglobin (05/13/2017 10:09 AM PDT) + + + + + + | Component | Value | Ref Range | Performed | Pathologist | | | | | At | Signature | + + + + + + | Haptoglobin | <10 (L)Comment: | 30 - 200 mg/dL | [facility] | | | | Verified by repeat | | [facility] | | | | analysis.Testing | | | | | | Performed: [facility], [address] | | | | | [address], [place] | | | | | | [id number] | | | | + + + + + + + + | Specimen | + + | Blood | + + + + + + + | Performing | Address | City/State/Zipcode | Phone Number | | Organization | | | | + + + + + | [facility] | [address] | [place] [address] | [phone] | + + + + + Ferritin (05/13/2017 10:09 AM PDT) + +-------+ + + + | Component | Value | Ref Range | Performed | Pathologist | | | | | At | Signature | + +-------+ + + + | FERRITIN | 146 | 24 - 366 ng/mL | [facility] | | | | | | [facility] | | | | | | [facility] | | | | | | [facility] - | | | | | | LABORATORY | | + +-------+ + + + + + | Specimen | + + | Blood | + + + + + + + | Performing | Address | City/State/Zipcode | Phone Number | | Organization | | | | + + + + + | [facility] | [address] | [place] | [phone] | | [facility] | | [address] | | | - LABORATORY | | | | + + + + + Iron and Transferrin (05/13/2017 10:09 AM PDT) + + + + + + | Component | Value | Ref Range | Performed | Pathologist | | | | | At | Signature | + + + + + + | Iron | 24 (L) | 50 - 160 ug/dL | [facility] | | | | | | [facility] | | | | | | [facility] | | | | | | [facility] - | | | | | | LABORATORY | | + + + + + + | TRANSFERRIN | 172.1 (L) | 240.0 - 480.0 | [facility] | | | | | mg/dL | [facility] | | | | | | [facility] | | | | | | CENTER - | | | | | | LABORATORY | | + + + + + + | TIBC | 241 | 235 - 425 ug/dL | [facility] | | | | | | [facility] | | | | | | [facility] | | | | | | C[facility] - | | | | | | LABORATORY | | + + + + + + | % | 10.0 (L) | 20.0 - 55.0 % | [facility] | | | [facility] | | | [facility] | | | | | | [facility] | | | | | | [facility] - | | | | | | LABORATORY | | + + + + + + + + | Specimen | + + | Blood | + + + + + + + | Performing | Address | City/State/Zipcode | Phone Number | | Organization | | | | + + + + + | [facility] | [address] | [place] | [phone] | | [facility] | | [address] | | | - LABORATORY | | | | + + + + + Erythropoietin (05/13/2017 10:09 AM PDT) + + + + + + | Component | Value | Ref Range | Performed | Pathologist | | | | | At | Signature | + + + + + + | ERYTHROPOIE | 9.2Comment: The | 3.5 - 24.0 | [facility] | | | TIN | erythropoietin reference | mIU/mL | [facility] | | | | range is based on data | | | | | | from healthyadults with | | | | | | normal hematocrit | | | | | | values.Erythropoietin is | | | | | | increased in anemias, | | | | | | secondary | | | | | | polycythemia, | | | | | | and erythropoietin | | | | | | producing tumors, and is | | | | | | decreased inprimary | | | | | | polycythemia and renal | | | | | | failure.Testing | | | | | | Performed: [facility], [address] | [address] | [address], [place] | | | | | | [id number] | | | | + + + + + + + + | Specimen | + + | Blood | + + + + + + + | Performing | Address | City/State/Zipcode | Phone Number | | Organization | | | | + + + + + | [facility] | [address] | [place] [address] | [phone] | + + + + + ECHO Complete (05/13/2017 8:26 AM PDT) + +-------+ + + + | Component | Value | Ref Range | Performed | Pathologist | | | | | At | Signature | + +-------+ + + + | LVEF-TTE | 61 | | | | | TRANSTHORAC | | | | | | IC ECHO | | | | | + +-------+ + + + + + | Specimen | + + | | + + + +-- + | Narrative | P erformed At | + +-- + | [facility] | | | Echocardiography Report (TTE) Demographics Patient Name SIDDIQI | | | JACKLYN Room Number 457 Patient Number | | | [id number] Date of Study 05/13/2017 Visit Number | | | [id number] Referring Physician | | | CRUZITO BIRD MD Number | | | MARGE FLOR Date of | | | 1935 [employer] T[employer] LEW[address]CS Age | | | 81 year(s) Interpreting | | | MARGE FLOR | | | Desktop Support Associate CRUZITO BIRD MD Gender | | | Male 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 Procedure dateDate: 05/13/2017Start: 07:53 AM Technical | | | Quality: Adequate visualizationStudy Location: ICUIndications: CHF | | | 428.0/ I50.9.Patient Status: RoutineHeight: 66 inchesWeight: 233.69 | | | poundsBSA: 2.14 m^2BMI: 37.72 kg/m^2Rhythm: Atrial fibrillation | | | ConclusionsSummary1. Mild biatrial dilatation.2. Normal left | | | ventricular size with a mild concentric left ventricularhypertrophy. | | | Left ventricular systolic function is preserved. LVEF is55-60%. | | | Evidence of a paradoxical septal motion.3. Normal right ventricular | | | size and wall thickness with a mildly decreasedright ventricular | | | systolic function.4. Normally functioning mechanical bileaflet aortic | | | valve replacement.5. Mildly thickened and calcified mitral valve with | | | adequate opening. Thereis a mild mitral valve regurgitation.6. Mild | | | mitral annular calcification.7. Moderate pulmonary hypertension with a | | | peak systole pressure of 65-70mmHg.8. Dilated IVC without respiratory | | | collapse suggesting fluid retention.9. When compared to | | | echocardiography on 02/28/17, pulmonary hypertension isslightly | | | worsened and patient appeared to be fluid overloaded on this study. | | | Signature | | | | | | AM | | | -------- FindingsMitral ValveThickening and calcification of the | | | mitral valve leaflets.Mild mitral annular calcification is | | | present.Aortic ValveEvidence of a mechanical aortic valve | | | replacementTricuspid ValveMild tricuspid regurgitation suggestive of a | | | moderately elevated rightsystolic pressure of 60-65 mmHg.Pulmonic | | | ValveStructurally normal pulmonic valve with mild regurgitation.Left | | | AtriumThe left atrium is mildly dilated.Left VentricleNormal left | | | ventricular cavity size.Mild concentric left ventricular | | | hypertrophy.Ejection fraction is visually estimated at 55-60%.Evidence | | | of a paradoxical septal motion.Right AtriumEnlarged right | | | atrium.Right VentricleRight ventricle global systolic function is | | | mildly reduced .TAPSE is 1.3 cm.Pericardial EffusionNo evidence of | | | pericardial effusion. MiscellaneousNormal aortic root.IVC is dilated | | | without respiratory collapse suggesting fluid retention. Valves | | | Mitral Valve Peak E-Wave: 1.46 m/s Peak A-Wave: 0.6 m/s Tissue | | | Doppler Septal e' Velocity: 0.05 m/s Septal E/e' Ratio:29.22 Aortic | | | Valve Peak Velocity: 1.8 m/s Area (continuity): | | | 2.97 cm^2 Peak Gradient: 12.96 mmHg Mean Gradient: 6.8 | | | mmHg Tricuspid Valve TR Velocity: 3.52 m/s LVOT Peak Velocity: | | | 1.12 m/s LVOT Diameter: 2.31 cm Structures Left Atrium LA A/P | | | Dimension: 4.57 cm LA Area: 23.69 cm^2 | | | LA Vol/BSA Index: 24 mL/m^2 LA Volume: | | | 51.23 ml | | | EF Qctubkizm37% Left Ventricle Diastolic Dimension: 4.23 | | | cm Systolic Dimension: 3.48 cm Septum Diastolic: 1.33 cm | | | PW Diastolic: 1.2 cm EF Calculated: 61% Miscellaneous Aorta Aortic | | | Root: 3.48 cm Ascending Aorta: 3.48 cm | | |Findings | | |Mitral Valve | | |Thickening and calcification of the mitral valve leaflets. | | |Mild mitral annular calcification is present. | | |Aortic Valve | | |Evidence of a mechanical aortic valve replacement | | |Tricuspid Valve | | |Mild tricuspid regurgitation suggestive of a moderately elevated right | | |systolic pressure of 60-65 mmHg. | | |Pulmonic Valve | | |Structurally normal pulmonic valve with mild regurgitation. | | |Left Atrium | | |The left atrium is mildly dilated. | | |Left Ventricle | | |Normal left ventricular cavity size. | | |Mild concentric left ventricular hypertrophy. | | |Ejection fraction is visually estimated at 55-60%. | | |Evidence of a paradoxical septal motion. | | |Right Atrium | | |Enlarged right atrium. | | |Right Ventricle | | |Right ventricle global systolic function is mildly reduced . | | |TAPSE is 1.3 cm. | | |Pericardial Effusion | | |No evidence of pericardial effusion. | | | | | |Miscellaneous | | |Normal aortic root. | | |IVC is dilated without respiratory collapse suggesting fluid retention. | | | | | |Valves | | | | | | Mitral Valve | | | | | | Peak E-Wave: 1.46 m/s | | | Peak A-Wave: 0.6 m/s | | | | | | Tissue Doppler | | | | | | Septal e' Velocity: 0.05 m/s | | | Septal E/e' Ratio:29.22 | | | | | | Aortic Valve | | | | | | Peak Velocity: 1.8 m/s Area (continuity): 2.97 cm^2 | | | Peak Gradient: 12.96 mmHg Mean Gradient: 6.8 mmHg | | | | | | Tricuspid Valve | | | | | | TR Velocity: 3.52 m/s | | | | | | LVOT | | | | | | Peak Velocity: 1.12 m/s | | | LVOT Diameter: 2.31 cm | | | | | |Structures | | | | | | Left Atrium | | | | | | LA A/P Dimension: 4.57 cm LA Area: 23.69 cm^2 | | | LA Vol/BSA Index: 24 mL/m^2 LA Volume: 51.23 ml | | | EF Xoutpqtir95% | | | | | | Left Ventricle | | | | | | Diastolic Dimension: 4.23 cm Systolic Dimension: 3.48 cm | | | Septum Diastolic: 1.33 cm | | | PW Diastolic: 1.2 cm | | | EF Calculated: 61% | | | | | | Miscellaneous | | | | | | Aorta | | | | | | Aortic Root: 3.48 cm | | | Ascending Aorta: 3.48 cm | | | | | + +-- + + + | Procedure Note | + + | Radha, Rad Results In - 05/13/2017 9:57 AM PDT Transthoracic Echocardiography Report | | (TTE) Demographics Patient Name AMANDA JACKLYN Room Number 457 Patient | | Number [id number] Date of Study 05/13/2017 Visit Number [id number] | | Referring Physician CRUZITO BIRD MD Number | | MARGE FLOR Date of 1935 | | 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 Mild | | biatrial dilatation.2. Normal left ventricular size with a mild concentric left | | ventricularhypertrophy. Left ventricular systolic function is preserved. LVEF is55-60%. | | Evidence of a paradoxical septal motion.3. Normal right ventricular size and wall | | thickness with a mildly decreasedright ventricular systolic function.4. 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 Mildly thickened and | | calcified mitral valve with adequate opening. Thereis a mild mitral valve | | regurgitation.6. Mild mitral annular calcification.7. Moderate pulmonary hypertension | | with a peak systole pressure of 65-70mmHg.8. Dilated IVC without respiratory collapse | | suggesting fluid retention.9. When compared to echocardiography on 02/28/17, pulmonary | | hypertension isslightly worsened and patient appeared to be fluid overloaded on this | | study.Signature | | --- | | 09:57 | | AM FindingsMi | | tral ValveThickening and calcification of the mitral valve leaflets.Mild mitral annular | | calcification is present.Aortic ValveEvidence of a mechanical aortic valve | | replacementTricuspid ValveMild tricuspid regurgitation suggestive of a moderately | | elevated rightsystolic pressure of 60-65 mmHg.Pulmonic ValveStructurally normal pulmonic | | valve with mild regurgitation.Left AtriumThe left atrium is mildly dilated.Left | | VentricleNormal left ventricular cavity size.Mild concentric left ventricular | | hypertrophy.Ejection fraction is visually estimated at 55-60%.Evidence of a paradoxical | | septal motion.Right AtriumEnlarged right atrium.Right VentricleRight ventricle global | | systolic function is mildly reduced .TAPSE is 1.3 cm.Pericardial EffusionNo evidence of | | pericardial effusion.MiscellaneousNormal aortic root.IVC is dilated without respiratory | | collapse suggesting fluid retention.Valves Mitral Valve Peak E-Wave: 1.46 m/s Peak | | A-Wave: 0.6 m/s Tissue Doppler Septal e' Velocity: 0.05 m/s Septal E/e' Ratio:29.22 | | Aortic Valve Peak Velocity: 1.8 m/s Area (continuity): 2.97 cm^2 Peak | | Gradient: 12.96 mmHg Mean Gradient: 6.8 mmHg Tricuspid Valve TR Velocity: 3.52 | | m/s LVOT Peak Velocity: 1.12 m/s LVOT Diameter: 2.31 cmStructures Left Atrium LA A/P | | Dimension: 4.57 cm LA Area: 23.69 cm^2 LA Vol/BSA Index: 24 mL/m^2 | | LA Volume: 51.23 ml EF | | Mbsentsjo08% Left Ventricle Diastolic Dimension: 4.23 cm Systolic Dimension: | | 3.48 cm Septum Diastolic: 1.33 cm PW Diastolic: 1.2 cm EF Calculated: 61% Miscellaneous | | Aorta Aortic Root: 3.48 cm Ascending Aorta: 3.48 cm | |5. Mildly thickened and calcified mitral valve with adequate opening. There | |is a mild mitral valve regurgitation. | |6. Mild mitral annular calcification. | |7. Moderate pulmonary hypertension with a peak systole pressure of 65-70 | |mmHg. | |8. Dilated IVC without respiratory collapse suggesting fluid retention. | |9. When compared to echocardiography on 02/28/17, pulmonary hypertension is | |slightly worsened and patient appeared to be fluid overloaded on this study. | | | |Signature | | | | Electronically signed by CRUZITO BIRD MD(Interpreting physician) on | | 05/13/2017 09:57 AM | | | | | |Findings | |Mitral Valve | |Thickening and calcification of the mitral valve leaflets. | |Mild mitral annular calcification is present. | |Aortic Valve | |Evidence of a mechanical aortic valve replacement | |Tricuspid Valve | |Mild tricuspid regurgitation suggestive of a moderately elevated right | |systolic pressure of 60-65 mmHg. | |Pulmonic Valve | |Structurally normal pulmonic valve with mild regurgitation. | |Left Atrium | |The left atrium is mildly dilated. | |Left Ventricle | |Normal left ventricular cavity size. | |Mild concentric left ventricular hypertrophy. | |Ejection fraction is visually estimated at 55-60%. | |Evidence of a paradoxical septal motion. | |Right Atrium | |Enlarged right atrium. | |Right Ventricle | |Right ventricle global systolic function is mildly reduced . | |TAPSE is 1.3 cm. | |Pericardial Effusion | |No evidence of pericardial effusion. | | | |Miscellaneous | |Normal aortic root. | |IVC is dilated without respiratory collapse suggesting fluid retention. | | | |Valves | | | | Mitral Valve | | | | Peak E-Wave: 1.46 m/s | | Peak A-Wave: 0.6 m/s | | | | Tissue Doppler | | | | Septal e' Velocity: 0.05 m/s | | Septal E/e' Ratio:29.22 | | | | Aortic Valve | | | | Peak Velocity: 1.8 m/s Area (continuity): 2.97 cm^2 | | Peak Gradient: 12.96 mmHg Mean Gradient: 6.8 mmHg | | | | Tricuspid Valve | | | | TR Velocity: 3.52 m/s | | | | LVOT | | | | Peak Velocity: 1.12 m/s | | LVOT Diameter: 2.31 cm | | | |Structures | | | | Left Atrium | | | | LA A/P Dimension: 4.57 cm LA Area: 23.69 cm^2 | | LA Vol/BSA Index: 24 mL/m^2 LA Volume: 51.23 ml | | EF Rinmguypj85% | | | | Left Ventricle | | | | Diastolic Dimension: 4.23 cm Systolic Dimension: 3.48 cm | | Septum Diastolic: 1.33 cm | | PW Diastolic: 1.2 cm | | EF Calculated: 61% | | | | Miscellaneous | | | | Aorta | | | | Aortic Root: 3.48 cm | | Ascending Aorta: 3.48 cm | + + Differential, Blood, Manual (05/13/2017 4:36 AM PDT) + + + + + + | Component | Value | Ref Range | Performed | Pathologist | | | | | At | Signature | + + + + + + | % Segmented | 49.0 (L) | 50.0 - 70.0 % | [facility] | | | | | | [facility] | | | Neutrophils | | | MEDICAL | | | | | | CENTER - | | | | | | LABORATORY | | + + + + + + | % | 38.0 | 20.0 - 40.0 % | [facility] | | | Lymphocytes | | | [facility] | | | | | | MEDICAL | | | | | | CENTER - | | | | | | LABORATORY | | + + + + + + | % Monocytes | 10.0 (H) | 1.0 - 6.0 % | [facility] | | | | | | [facility] | | | | | | MEDICAL | | | | | | CENTER - | | | | | | LABORATORY | | + + + + + + | % Bands | 3.0 | 0.0 - 5.0 % | [facility] | | | | | | [facility] | | | | | | MEDICAL | | | | | | CENTER - | | | | | | LABORATORY | | + + + + + + | Absolute | 3.48 | 1.80 - 7.70 | [facility] | | | Segmented | | K/uL | [facility] | | | Neutrophils | | | MEDICAL | | | | | | CENTER - | | | | | | LABORATORY | | + + + + + + | Absolute | 2.70 | 1.00 - 3.40 | [facility] | | | Lymphocytes | | K/uL | [facility] | | | | | | MEDICAL | | | | | | CENTER - | | | | | | LABORATORY | | + + + + + + | Absolute | 0.71 | 0.00 - 0.80 | [facility] | | | Monocytes | | K/uL | [facility] | | | | | | MEDICAL | | | | | | CENTER - | | | | | | LABORATORY | | + + + + + + | Absolute | 0.21 | 0.00 - 1.50 | [facility] | | | Bands | | K/uL | [facility] | | | | | | MEDICAL | | | | | | CENTER - | | | | | | LABORATORY | | + + + + + + | Total Cells | 100 | | [facility] | | | Counted | | | [facility] | | | | | | MEDICAL | | | | | | CENTER - | | | | | | LABORATORY | | + + + + + + | WBC | Normal | | [facility] | | | Morphology | | | [facility] | | | | | | MEDICAL | | | | | | CENTER - | | | | | | LABORATORY | | + + + + + + | Platelet | Normal | | [facility] | | | Morphology | | | [facility] | | | | | | MEDICAL | | | | | | CENTER - | | | | | | LABORATORY | | + + + + + + | Hypochromas | Slight (A) | (none) | [facility] | | | ia | | | [facility] | | | | | | MEDICAL | | | | | | CENTER - | | | | | | LABORATORY | | + + + + + + + + | Specimen | + + | Blood | + + + + + + + | Performing | Address | City/State/Zipcode | Phone Number | | Organization | | | | + + + + + | [facility] | [address] | [place], [place] | [phone] | | [facility] | | [address] | | | - LABORATORY | | | | + + + + + CBC no Differential (05/13/2017 4:36 AM PDT) + + + + + + | Component | Value | Ref Range | Performed | Pathologist | | | | | At | Signature | + + + + + + | White Blood | 7.1 | 4.0 - 11.0 K/uL | [facility] | | | Cells | | | [facility] | | | | | | MEDICAL | | | | | | CENTER - | | | | | | LABORATORY | | + + + + + + | Red Blood | 3.13 (L) | 4.30 - 5.70 | [facility] | | | Cells | | M/uL | [facility] | | | | | | MEDICAL | | | | | | CENTER - | | | | | | LABORATORY | | + + + + + + | Hemoglobin | 9.3 (L) | 13.5 - 18.0 | [facility] | | | | | g/dL | [facility] | | | | | | MEDICAL | | | | | | CENTER - | | | | | | LABORATORY | | + + + + + + | Hematocrit | 29.1 (L) | 40.0 - 51.0 % | [facility] | | | | | | [facility] | | | | | | MEDICAL | | | | | | CENTER - | | | | | | LABORATORY | | + + + + + + | MCV | 92.8 | 83.0 - 101.0 fL | [facility] | | | | | | [facility] | | | | | | MEDICAL | | | | | | CENTER - | | | | | | LABORATORY | | + + + + + + | MCH | 29.7 | 28.0 - 35.0 pg | [facility] | | | | | | [facility] | | | | | | MEDICAL | | | | | | CENTER - | | | | | | LABORATORY | | + + + + + + | MCHC | 32.0 | 32.0 - 36.0 | [facility] | | | | | g/dL | [facility] | | | | | | MEDICAL | | | | | | CENTER - | | | | | | LABORATORY | | + + + + + + | RDW-CV | 17.1 (H) | <15.0 % | [facility] | | | | | | [facility] | | | | | | MEDICAL | | | | | | CENTER - | | | | | | LABORATORY | | + + + + + + | Platelet | 126 (L) | 140 - 440 K/uL | [facility] | | | Count | | | [facility] | | | | | | MEDICAL | | | | | | CENTER - | | | | | | LABORATORY | | + + + + + + | MPV | 8.2 | fL | [facility] | | | | | | [facility] | | | | | | MEDICAL | | | | | | CENTER - | | | | | | LABORATORY | | + + + + + + + + | Specimen | + + | Blood | + + + + + + + | Performing | Address | City/State/Zipcode | Phone Number | | Organization | | | | + + + + + | [facility] | [address] | [place] | [phone] | | [facility] | | [address] | | | - LABORATORY | | | | + + + + + Basic Metabolic Panel (05/13/2017 4:36 AM PDT) + + + + + + | Component | Value | Ref Range | Performed | Pathologist | | | | | At | Signature | + + + + + + | Na | 140 | 136 - 149 | [facility] | | | | | mmol/L | [facility] | | | | | | MEDICAL | | | | | | CENTER - | | | | | | LABORATORY | | + + + + + + | K | 4.5 | 3.5 - 5.1 | [facility] | | | | | mmol/L | [facility] | | | | | | MEDICAL | | | | | | CENTER - | | | | | | LABORATORY | | + + + + + + | Cl | 107 | 98 - 109 mmol/L | [facility] | | | | | | [facility] | | | | | | MEDICAL | | | | | | CENTER - | | | | | | LABORATORY | | + + + + + + | CO2 | 28 | 24 - 31 mmol/L | [facility] | | | | | | [facility] | | | | | | MEDICAL | | | | | | CENTER - | | | | | | LABORATORY | | + + + + + + | Anion Gap | 5 | 3 - 16 mmol/L | [facility] | | | | | | [facility] | | | | | | MEDICAL | | | | | | CENTER - | | | | | | LABORATORY | | + + + + + + | Glucose | 93 | 70 - 109 mg/dL | [facility] | | | | | | [facility] | | | | | | MEDICAL | | | | | | CENTER - | | | | | | LABORATORY | | + + + + + + | BUN | 40 (H) | 7 - 18 mg/dL | [facility] | | | | | | [facility] | | | | | | MEDICAL | | | | | | CENTER - | | | | | | LABORATORY | | + + + + + + | Creatinine | 1.67 (H) | 0.60 - 1.30 | [facility] | | | | | mg/dL | [facility] | | | | | | MEDICAL | | | | | | CENTER - | | | | | | LABORATORY | | + + + + + + | eGFR if not | 39 (L)Comment: | >=60 | [facility] | | | | GLOMERULAR FILTRATION | mL/min/1.73m2 | [facility] | | | [facility] | RATE,ESTIMATED | | MEDICAL | | | | mL/min/1.36e9Jwob than | | CENTER - | | | | 60 Chronic kidney | | LABORATORY | | | | disease,if found over a | | | | | | 3-month period.Less than | | | | | | 15 Kidney failureFor | | | | | | | | | | | | Americans,multiply the | | | | | | calculated GFR by 1.21. | | | | | | | | | | + + + + + + | Calcium | 8.4 | 8.3 - 10.5 | [facility] | | | | | mg/dL | [facility] | | | | | | MEDICAL | | | | | | CENTER - | | | | | | LABORATORY | | + + + + + + | BUN/Creatin | 24.0 | | [facility] | | | ine Ratio | | | [facility] | | | | | | MEDICAL | | | | | | CENTER - | | | | | | LABORATORY | | + + + + + + + + | Specimen | + + | Blood | + + + + + + + | Performing | Address | City/State/Zipcode | Phone Number | | Organization | | | | + + + + + | [facility] | [address] | [place] | [phone] | | [facility] | | [address] | | | - LABORATORY | | | | + + + + + CBC no Differential (05/12/2017 7:49 PM PDT) + + + + + + | Component | Value | Ref Range | Performed | Pathologist | | | | | At | Signature | + + + + + + | White Blood | 5.5 | 4.0 - 11.0 K/uL | [facility] | | | Cells | | | [facility] | | | | | | MEDICAL | | | | | | CENTER - | | | | | | LABORATORY | | + + + + + + | Red Blood | 2.97 (L) | 4.30 - 5.70 | [facility] | | | Cells | | M/uL | [facility] | | | | | | MEDICAL | | | | | | CENTER - | | | | | | LABORATORY | | + + + + + + | Hemoglobin | 8.9 (L) | 13.5 - 18.0 | [facility] | | | | | g/dL | [facility] | | | | | | MEDICAL | | | | | | CENTER - | | | | | | LABORATORY | | + + + + + + | Hematocrit | 27.5 (L) | 40.0 - 51.0 % | [facility] | | | | | | [facility] | | | | | | MEDICAL | | | | | | CENTER - | | | | | | LABORATORY | | + + + + + + | MCV | 92.4 | 83.0 - 101.0 fL | [facility] | | | | | | [facility] | | | | | | MEDICAL | | | | | | CENTER - | | | | | | LABORATORY | | + + + + + + | MCH | 29.9 | 28.0 - 35.0 pg | [facility] | | | | | | [facility] | | | | | | MEDICAL | | | | | | CENTER - | | | | | | LABORATORY | | + + + + + + | MCHC | 32.3 | 32.0 - 36.0 | [facility] | | | | | g/dL | [facility] | | | | | | MEDICAL | | | | | | CENTER - | | | | | | LABORATORY | | + + + + + + | RDW-CV | 16.7 (H) | <15.0 % | [facility] | | | | | | [facility] | | | | | | MEDICAL | | | | | | CENTER - | | | | | | LABORATORY | | + + + + + + | Platelet | 129 (L) | 140 - 440 K/uL | [facility] | | | Count | | | [facility] | | | | | | MEDICAL | | | | | | CENTER - | | | | | | LABORATORY | | + + + + + + | MPV | 7.9 | fL | [facility] | | | | | | [facility] | | | | | | MEDICAL | | | | | | CENTER - | | | | | | LABORATORY | | + + + + + + + + | Specimen | + + | Blood | + + + + + + + | Performing | Address | City/State/Zipcode | Phone Number | | Organization | | | | + + + + + | [facility] | [address] | [place] | [phone] | | [facility] | | [address] | | | - LABORATORY | | | | + + + + + Basic Metabolic Panel (05/12/2017 7:49 PM PDT) + + + + + + | Component | Value | Ref Range | Performed | Pathologist | | | | | At | Signature | + + + + + + | Na | 137 | 136 - 149 | [facility] | | | | | mmol/L | [facility] | | | | | | MEDICAL | | | | | | CENTER - | | | | | | LABORATORY | | + + + + + + | K | 4.5 | 3.5 - 5.1 | [facility] | | | | | mmol/L | [facility] | | | | | | MEDICAL | | | | | | CENTER - | | | | | | LABORATORY | | + + + + + + | Cl | 108 | 98 - 109 mmol/L | [facility] | | | | | | [facility] | | | | | | MEDICAL | | | | | | CENTER - | | | | | | LABORATORY | | + + + + + + | CO2 | 25 | 24 - 31 mmol/L | [facility] | | | | | | [facility] | | | | | | MEDICAL | | | | | | CENTER - | | | | | | LABORATORY | | + + + + + + | Anion Gap | 4 | 3 - 16 mmol/L | [facility] | | | | | | [facility] | | | | | | MEDICAL | | | | | | CENTER - | | | | | | LABORATORY | | + + + + + + | Glucose | 113 (H) | 70 - 109 mg/dL | [facility] | | | | | | [facility] | | | | | | MEDICAL | | | | | | CENTER - | | | | | | LABORATORY | | + + + + + + | BUN | 37 (H) | 7 - 18 mg/dL | [facility] | | | | | | [facility] | | | | | | MEDICAL | | | | | | CENTER - | | | | | | LABORATORY | | + + + + + + | Creatinine | 1.82 (H)Comment: This is | 0.60 - 1.30 | [facility] | | | | an appended report. | mg/dL | [facility] | | | | These results have been | | MEDICAL | | | | appended to a previously | | CENTER - | | | | preliminary verified | | LABORATORY | | | | report. | | | | + + + + + + | eGFR if not | 36 (L)Comment: | >=60 | [facility] | | | | GLOMERULAR FILTRATION | mL/min/1.73m2 | [facility] | | | [facility] | RATE,ESTIMATED | | MEDICAL | | | | mL/min/1.03c1Owub than | | CENTER - | | | | 60 Chronic kidney | | LABORATORY | | | | disease,if found over a | | | | | | 3-month period.Less than | | | | | | 15 Kidney failureFor | | | | | | | | | | | | Americans,multiply the | | | | | | calculated GFR by 1.21. | | | | | | This is an appended | | | | | | report. These results | | | | | | have been appended to a | | | | | | previously preliminary | | | | | | verified report. | | | | + + + + + + | Calcium | 8.4 | 8.3 - 10.5 | [facility] | | | | | mg/dL | [facility] | | | | | | MEDICAL | | | | | | CENTER - | | | | | | LABORATORY | | + + + + + + | BUN/Creatin | 20.3Comment: This is an | | [facility] | | | ine Ratio | appended report. These | | [facility] | | | | results have been | | MEDICAL | | | | appended to a previously | | CENTER - | | | | preliminary verified | | LABORATORY | | | | report. | | | | + + + + + + + + | Specimen | + + | Blood | + + + + + + + | Performing | Address | City/State/Zipcode | Phone Number | | Organization | | | | + + + + + | [facility] | [address] | [place] | [phone] | | [facility] | | [address] | | | - LABORATORY | | | | + + + + + Protime INR (05/12/2017 7:42 PM PDT) + + + + + + | Component | Value | Ref Range | Performed | Pathologist | | | | | At | Signature | + + + + + + | Prothrombin | 23.6 (H) | 11.3 - 13.9 | [facility] | | | Time | | seconds | [facility] | | | | | | MEDICAL | | | | | | CENTER - | | | | | | LABORATORY | | + + + + + + | INR | 2.04 (H)Comment: Usual | 0.90 - 1.10 | [facility] | | | | Oral Anticoagulation | | [facility] | | | | Range: 2.0 - | | MEDICAL | | | | 3.0High Level Oral | | CENTER - | | | | Anticoagulation Range: | | LABORATORY | | | | 2.5 - 3.5 | | | | + + + + + + + + | Specimen | + + | Blood | + + + + + + + | Performing | Address | City/State/Zipcode | Phone Number | | Organization | | | | + + + + + | [facility] | [address] | [place] | [phone] | | [facility] | | [address] | | | - LABORATORY | | | | + + + + + Culture, IV Cath Tip (05/12/2017 11:13 AM PDT) + + + + + + | Component | Value | Ref Range | Performed | Pathologist | | | | | At | Signature | + + + + + + | Culture | No Growth | | [facility] | | | | | | [facility] | | [facility] | [facility] | | | | | | [facility] - | | | | | | LABORATORY | | + + + + + + + + | Specimen | + + | Medical | | Device/Foreign Body | | - Catheter tip | | specimen (specimen) | + + + + + + + | Performing | Address | City/State/Zipcode | Phone Number | | Organization | | | | + + + + + | [facility] | [address] | [place] | [phone] | | [facility] | | [id number] | | | - LABORATORY | | | | + + + + + Culture, Blood (05/12/2017 11:07 AM PDT) + + + + + + | Component | Value | Ref Range | Performed | Pathologist | | | | | At | Signature | + + + + + + | Culture | No growth after 5 days | | [facility] | | | | incubation. | | [facility] | | | | | | [facility] | | | | | | [facility] - | | | | | | LABORATORY | | + + + + + + + + | Specimen | + + | Blood - Peripheral | | blood specimen | | (specimen) | + + + + + + + | Performing | Address | City/State/Zipcode | Phone Number | | Organization | | | | + + + + + | [facility] | [address] | [place] | [phone] | | [facility] | | [address] | | | - LABORATORY | | | | + + + + + ECG 12 lead (05/12/2017 9:34 AM PDT) + + + + + + | Component | Value | Ref Range | Performed | Pathologist | | | | | At | Signature | + + + + + + | [facility] | 82 | [facility] | [facility] | | | RATE EKG | | | | | + + + + + + | ATRIAL RATE | 102 | BPM | [facility] | | + + + + + + | P-R | 126 | ms | [facility] | | | INTERVAL | | | | | + + + + + + | QRS | 138 | ms | [facility] | | | DURATION | | | | | + + + + + + | Q-T | 418 | ms | [facility] | | | INTERVAL | | | | | + + + + + + | Q-T | 488 | ms | [facility] | | | INTERVAL | | | | | | (CORRECTED) | | | | | + + + + + + | P WAVE AXIS | 78 | degrees | [facility] | | + + + + + + | QRS AXIS | -25 | degrees | [facility] | | + + + + + + | T AXIS | 158 | degrees | [facility] | | + + + + + + | INTERPRETAT | Sinus tachycardia with | | [facility] | | | ION TEXT | 2nd degree AV block | | | | | | (Avis II) with | | | | | | premature | | | | | | supraventricular | | | | | | complexesNonspecific | | | | | | intraventricular | | | | | | blockCannot rule out | | | | | | Anterior infarct (cited | | | | | | on or before | | | | | | 10-MAY-2017)Marked T | | | | | | wave abnormality, | | | | | | consider anterolateral | | | | | | ischemiaAbnormal ECGWhen | | | | | | compared with ECG of | | | | | | 10-MAY-2017 18:37,sinus | | | | | | tachycardia now presentT | | | | | | wave inversion no | | | | | | longer evident in | | | | | | Anterior leadsQT has | | | | | | lengthenedConfirmed by | | | | | | BINU MACK MD ([id number]) | | | | | | on 05/13/2017 6:24:02 AM | | | | + + + + + + + + | Specimen | + + | | + + + + + | Narrative | Performed At | + + + | | | + + + + +---------+ + + | Performing | Address | City/State/Zipcode | Phone Number | | Organization | | | | + +---------+ + + | [facility] | | | | + +---------+ + + XR Chest PA or AP (05/12/2017 8:34 AM PDT) + + | Specimen | + + | | + + + + + | Narrative | Performed At | + + + | CLINICAL INFORMATION: Picc line placement verification. | [facility] | | COMPARISON: 05/11/2017 and 05/07/2017. FINDINGS: Frontal views of | | | the chest. Median sternotomy and valvuloplasty changes. Left | | | sided peripheral vascular catheter with the at the level of the | | | midhumerus. Unchanged cardiomegaly. Unchanged aeration of the | | | lungs compared with prior with persistent left pleural effusion and | | | basilar airspace opacities. Unchanged findings suggestive of minimal | | | to mild pulmonary edema. IMPRESSION - Unchanged aeration | | | of the lungs with left pleural effusion and basilar airspace | | | opacities and probable minimal to mild pulmonary edema. Left sided | | | vascular catheter with the tip at the level of the midhumerus. | | | Dictated and Signed by: Jadon White MD Electronically | | | signed: 05/12/2017 2:33 PM | | + + + + + | Procedure Note | + + | Radha, Rad Results In - 05/12/2017 2:37 PM PDT CLINICAL INFORMATION: Picc line | | placement verification.COMPARISON: 05/11/2017 and 05/07/2017.FINDINGS: Frontal views of | | the chest. Median sternotomy and valvuloplasty changes.Left sided peripheral vascular | | catheter with the at the level of the midhumerus.Unchanged cardiomegaly.Unchanged | | aeration of the lungs compared with prior with persistent left pleuraleffusion and | | basilar airspace opacities. Unchanged findings suggestive ofminimal to mild pulmonary | | edema.IMPRESSION - Unchanged aeration of the lungs with left pleural effusion and | | basilar airspaceopacities and probable minimal to mild pulmonary edema.Left sided | | vascular catheter with the tip at the level of the midhumerus. Dictated and Signed by: | | Jadon White MD Electronically signed: 05/12/2017 2:33 PM | |Unchanged cardiomegaly. | | | |Unchanged aeration of the lungs compared with prior with persistent left pleural | |effusion and basilar airspace opacities. Unchanged findings suggestive of | |minimal to mild pulmonary edema. | | | | | |IMPRESSION - | | | |Unchanged aeration of the lungs with left pleural effusion and basilar airspace | |opacities and probable minimal to mild pulmonary edema. | | | |Left sided vascular catheter with the tip at the level of the midhumerus. | | | | | | | |Dictated and Signed by: Jadon White MD | | Electronically signed: 05/12/2017 2:33 PM | + + + +---------+ + + | Performing | Address | City/State/Zipcode | Phone Number | | Organization | | | | + +---------+ + + | [facility] | | | | + +---------+ + + Creatinine (05/11/2017 7:15 PM PDT) + + + + + + | Component | Value | Ref Range | Performed | Pathologist | | | | | At | Signature | + + + + + + | Creatinine | 1.61 (H) | 0.60 - 1.30 | [facility] | | | | | mg/dL | [facility] | | | | | | [facility] | | | | | | CENTER - | | | | | | LABORATORY | | + + + + + + | eGFR if not | 41 (L)Comment: | >=60 | [facility] | | | | GLOMERULAR FILTRATION | mL/min/1.73m2 | [facility] | | | [facility] | RATE,ESTIMATED | | MEDICAL | | | | mL/min/1.06q3Bnim than | | CENTER - | | | | 60 Chronic kidney | | LABORATORY | | | | disease,if found over a | | | | | | 3-month period.Less than | | | | | | 15 Kidney failureFor | | | | | | | | | | | | Americans,multiply the | | | | | | calculated GFR by 1.21. | | | | | | | | | | + + + + + + + + | Specimen | + + | Blood | + + + + + + + | Performing | Address | City/State/[facility]code | Phone Number | | Organization | | | | + + + + + | [facility] | [address] | [place] | [phone] | | [facility] | | [address] | | | - LABORATORY | | | | + + + + + CBC no Differential (05/11/2017 7:15 PM PDT) + + + + + + | Component | Value | Ref Range | Performed | Pathologist | | | | | At | Signature | + + + + + + | White Blood | 9.6 | 4.0 - 11.0 K/uL | [facility] | | | Cells | | | [facility] | | | | | | MEDICAL | | | | | | CENTER - | | | | | | LABORATORY | | + + + + + + | Red Blood | 3.39 (L) | 4.30 - 5.70 | [facility] | | | Cells | | M/uL | [facility] | | | | | | MEDICAL | | | | | | CENTER - | | | | | | LABORATORY | | + + + + + + | Hemoglobin | 10.0 (L) | 13.5 - 18.0 | [facility] | | | | | g/dL | [facility] | | | | | [facility] | | | | | | C[facility] - | | | | | | LABORATORY | | + + + + + + | Hematocrit | 31.1 (L) | 40.0 - 51.0 % | [facility] | | | | | | [facility] | | | | | [facility] | | | | | | C[facility] - | | | | | | LABORATORY | | + + + + + + | MCV | 91.6 | 83.0 - 101.0 fL | [facility] | | | | | | [facility] | | | | | | [facility] | | | | | | CENTER - | | | | | | LABORATORY | | + + + + + + | MCH | 29.4 | 28.0 - 35.0 pg | [facility] | | | | | | [facility] | | | | | [facility] | | | | | | C[facility] - | | | | | | LABORATORY | | + + + + + + | MCHC | 32.2 | 32.0 - 36.0 | [facility] | | | | | g/dL | [facility] | | | | | | MEDICAL | | | | | | CENTER - | | | | | | LABORATORY | | + + + + + + | RDW-CV | 16.8 (H) | <15.0 % | [facility] | | | | | | [facility] | | | | | | MEDICAL | | | | | | CENTER - | | | | | | LABORATORY | | + + + + + + | Platelet | 151 | 140 - 440 K/uL | [facility] | | | Count | | | [facility] | | | | | | MEDICAL | | | | | | CENTER - | | | | | | LABORATORY | | + + + + + + | MPV | 7.7 | fL | [facility] | | | | | | [facility] | | | | | | MEDICAL | | | | | | CENTER - | | | | | | LABORATORY | | + + + + + + + + | Specimen | + + | Blood | + + + + + + + | Performing | Address | City/State/Zipcode | Phone Number | | Organization | | | | + + + + + | [facility] | [address] | [place], [place] | [phone] | | [facility] | | [address] | | | - LABORATORY | | | | + + + + + XR Chest AP Portable (05/11/2017 7:27 AM PDT) + + | Specimen | + + | | + + + + + | Narrative | Performed At | + + + | CLINICAL INFORMATION: New hypoxemia and reduced breath sounds and | [facility] | | crackles left lung base.. COMPARISON: 05/07/2017. FINDINGS: | | | Single frontal portable chest radiograph. Median sternotomy and | | | arthroplasty changes. Multiple lead wires overlie the [id number]. | | | Overall unchanged aeration of the lungs with stable left pleural | | | effusion and left basilar opacities, likely atelectasis. No | | | pneumothorax. There is slight prominence of the interstitial lung | | | markings in a perihilar and lower lobe predominant distribution | | | suggesting component of pulmonary edema. Unchanged cardiomegaly | | | and prominent aortic vascular calcifications. IMPRESSION - | | | Overall unchanged aeration of the lungs from prior with persistent | | | left pleural effusion and left basilar opacities, likely compressive | | | atelectasis. Possible minimal to mild pulmonary edema. Dictated | | | and Signed by: Jadon White MD Electronically signed: 05/11/2017 | | | 1:37 PM | | + + + + + | Procedure Note | + + | Radha, Rad Results In - 05/11/2017 1:40 PM PDT | | CLINICAL INFORMATION: New hypoxemia and reduced breath sounds and crackles left | | lung base.. | | | | COMPARISON: 05/07/2017. | | | | FINDINGS: | | Single frontal portable chest radiograph. | | | | Median sternotomy and arthroplasty changes. | | Multiple lead wires overlie the [id number]. | | | | Overall unchanged aeration of the lungs with stable left pleural effusion and | | left basilar opacities, likely atelectasis. No pneumothorax. There is slight | | prominence of the interstitial lung markings in a perihilar and lower lobe | | predominant distribution suggesting component of pulmonary edema. | | | | Unchanged cardiomegaly and prominent aortic vascular calcifications. | | | | | | IMPRESSION - Overall unchanged aeration of the lungs from prior with persistent | | left pleural effusion and left basilar opacities, likely compressive | | atelectasis. Possible minimal to mild pulmonary edema. | | | | Dictated and Signed by: Jadon White MD | | Electronically signed: 05/11/2017 1:37 PM | + + + +---------+ + + | Performing | Address | City/State/Zipcode | Phone Number | | Organization | | | | + +---------+ + + | [facility] | | | | + +---------+ + + Differential, Blood, Manual (05/10/2017 8:33 PM PDT) + + + + + + | Component | Value | Ref Range | Performed | Pathologist | | | | | At | Signature | + + + + + + | % Segmented | 25.0 (L) | 50.0 - 70.0 % | [facility] | | | | | | [facility] | | | Neutrophils | | | MEDICAL | | | | | | CENTER - | | | | | | LABORATORY | | + + + + + + | % | 64.0 (H) | 20.0 - 40.0 % | [facility] | | | Lymphocytes | | | [facility] | | | | | | MEDICAL | | | | | | CENTER - | | | | | | LABORATORY | | + + + + + + | % Monocytes | 3.0 | 1.0 - 6.0 % | [facility] | | | | | | [facility] | | | | | | MEDICAL | | | | | | CENTER - | | | | | | LABORATORY | | + + + + + + | % | 5.0 | 1.0 - 5.0 % | [facility] | | | Eosinophils | | | [facility] | | | | | | MEDICAL | | | | | | CENTER - | | | | | | LABORATORY | | + + + + + + | % Basophils | 1.0 | 0.0 - 1.0 % | [facility] | | | | | | [facility] | | | | | | MEDICAL | | | | | | CENTER - | | | | | | LABORATORY | | + + + + + + | % Bands | 2.0 | 0.0 - 5.0 % | [facility] | | | | | | [facility] | | | | | | MEDICAL | | | | | | CENTER - | | | | | | LABORATORY | | + + + + + + | Absolute | 3.08 | 1.80 - 7.70 | [facility] | | | Segmented | | K/uL | [facility] | | | Neutrophils | | | MEDICAL | | | | | | CENTER - | | | | | | LABORATORY | | + + + + + + | Absolute | 7.87 (H) | 1.00 - 3.40 | [facility] | | | Lymphocytes | | K/uL | [facility] | | | | | | MEDICAL | | | | | | CENTER - | | | | | | LABORATORY | | + + + + + + | Absolute | 0.37 | 0.00 - 0.80 | [facility] | | | Monocytes | | K/uL | [facility] | | | | | | MEDICAL | | | | | | CENTER - | | | | | | LABORATORY | | + + + + + + | Absolute | 0.62 (H) | 0.00 - 0.50 | [facility] | | | Eosinophils | | K/uL | [facility] | | | | | | MEDICAL | | | | | | CENTER - | | | | | | LABORATORY | | + + + + + + | Absolute | 0.12 (H) | 0.00 - 0.10 | [facility] | | | Basophils | | K/uL | [facility] | | | | | | MEDICAL | | | | | | CENTER - | | | | | | LABORATORY | | + + + + + + | Absolute | 0.25 | 0.00 - 1.50 | [facility] | | | Bands | | K/uL | [facility] | | | | | | MEDICAL | | | | | | CENTER - | | | | | | LABORATORY | | + + + + + + | Total Cells | 100 | | [facility] | | | Counted | | | [facility] | | | | | | MEDICAL | | | | | | CENTER - | | | | | | LABORATORY | | + + + + + + | Platelet | Adequate | Adequate | [facility] | | | Estimate | | | [facility] | | | | | | MEDICAL | | | | | | CENTER - | | | | | | LABORATORY | | + + + + + + | Hypochromas | Slight (A) | (none) | [facility] | | | ia | | | [facility] | | | | | | MEDICAL | | | | | | CENTER - | | | | | | LABORATORY | | + + + + + + | Polychromas | Slight (A) | (none) | [facility] | | | ia | | | [facility] | | | | | | MEDICAL | | | | | | CENTER - | | | | | | LABORATORY | | + + + + + + | Anisocytosi | Slight (A) | (none) | [facility] | | | s | | | [facility] | | | | | | MEDICAL | | | | | | CENTER - | | | | | | LABORATORY | | + + + + + + | Variant | Moderate (A) | (none) | [facility] | | | Lymphocytes | | | [facility] | | | | | | [facility] | | | | | | CENTER - | | | | | | LABORATORY | | + + + + + + + + | Specimen | + + | Blood | + + + + + + + | Performing | Address | City/State/Zipcode | Phone Number | | Organization | | | | + + + + + | [facility] | [address] | [place] | [phone] | | [facility] | | [address] | | | - LABORATORY | | | | + + + + + CBC no Differential (05/10/2017 8:33 PM PDT) + + + + + + | Component | Value | Ref Range | Performed | Pathologist | | | | | At | Signature | + + + + + + | White Blood | 12.3 (H) | 4.0 - 11.0 K/uL | [facility] | | | Cells | | | [facility] | | | | | | [facility] | | | | | | CENTER - | | | | | | LABORATORY | | + + + + + + | Red Blood | 3.58 (L) | 4.30 - 5.70 | [facility] | | | Cells | | M/uL | [facility] | | | | | | MEDICAL | | | | | | CENTER - | | | | | | LABORATORY | | + + + + + + | Hemoglobin | 10.5 (L) | 13.5 - 18.0 | [facility] | | | | | g/dL | [facility] | | | | | | MEDICAL | | | | | | CENTER - | | | | | | LABORATORY | | + + + + + + | Hematocrit | 32.8 (L) | 40.0 - 51.0 % | [facility] | | | | | | [facility] | | | | | | MEDICAL | | | | | | CENTER - | | | | | | LABORATORY | | + + + + + + | MCV | 91.7 | 83.0 - 101.0 fL | [facility] | | | | | | [facility] | | | | | | MEDICAL | | | | | | CENTER - | | | | | | LABORATORY | | + + + + + + | MCH | 29.3 | 28.0 - 35.0 pg | [facility] | | | | | | [facility] | | | | | | MEDICAL | | | | | | CENTER - | | | | | | LABORATORY | | + + + + + + | MCHC | 31.9 (L) | 32.0 - 36.0 | [facility] | | | | | g/dL | [facility] | | | | | | MEDICAL | | | | | | CENTER - | | | | | | LABORATORY | | + + + + + + | RDW-CV | 16.8 (H) | <15.0 % | [facility] | | | | | | [facility] | | | | | | MEDICAL | | | | | | CENTER - | | | | | | LABORATORY | | + + + + + + | Platelet | 183 | 140 - 440 K/uL | [facility] | | | Count | | | [facility] | | | | | | MEDICAL | | | | | | CENTER - | | | | | | LABORATORY | | + + + + + + | MPV | 8.0 | fL | [facility] | | | | | | [facility] | | | | | | MEDICAL | | | | | | CENTER - | | | | | | LABORATORY | | + + + + + + + + | Specimen | + + | Blood | + + + + + + + | Performing | Address | City/State/Zipcode | Phone Number | | Organization | | | | + + + + + | [facility] | [address] | [place] | [phone] | | [facility] | | [address] | | | - LABORATORY | | | | + + + + + Magnesium (05/10/2017 8:33 PM PDT) + +-------+ + + + | Component | Value | Ref Range | Performed | Pathologist | | | | | At | Signature | + +-------+ + + + | Magnesium | 2.2 | 1.8 - 2.5 mg/dL | [facility] | | | | | | [facility] | | | | | | MEDICAL | | | | | | CENTER - | | | | | | LABORATORY | | + +-------+ + + + + + | Specimen | + + | Blood | + + + + + + + | Performing | Address | City/State/Zipcode | Phone Number | | Organization | | | | + + + + + | [facility] | [address] | [place] | [phone] | | [facility] | | [address] | | | - LABORATORY | | | | + + + + + Basic Metabolic Panel (05/10/2017 8:33 PM PDT) + + + + + + | Component | Value | Ref Range | Performed | Pathologist | | | | | At | Signature | + + + + + + | Na | 139 | 136 - 149 | [facility] | | | | | mmol/L | [facility] | | | | | | MEDICAL | | | | | | CENTER - | | | | | | LABORATORY | | + + + + + + | K | 4.3 | 3.5 - 5.1 | [facility] | | | | | mmol/L | [facility] | | | | | | MEDICAL | | | | | | CENTER - | | | | | | LABORATORY | | + + + + + + | Cl | 108 | 98 - 109 mmol/L | [facility] | | | | | | [facility] | | | | | | [facility] | | | | | | CENTER - | | | | | | LABORATORY | | + + + + + + | CO2 | 26 | 24 - 31 mmol/L | [facility] | | | | | | [facility] | | | | | | MEDICAL | | | | | | CENTER - | | | | | | LABORATORY | | + + + + + + | Anion Gap | 5 | 3 - 16 mmol/L | [facility] | | | | | | [facility] | | | | | | MEDICAL | | | | | | CENTER - | | | | | | LABORATORY | | + + + + + + | Glucose | 119 (H) | 70 - 109 mg/dL | [facility] | | | | | | [facility] | | | | | | MEDICAL | | | | | | CENTER - | | | | | | LABORATORY | | + + + + + + | BUN | 27 (H) | 7 - 18 mg/dL | [facility] | | | | | | [facility] | | | | | | MEDICAL | | | | | | CENTER - | | | | | | LABORATORY | | + + + + + + | Creatinine | 1.28 | 0.60 - 1.30 | [place] | | | | | mg/dL | [facility] | | | | | | MEDICAL | | | | | | CENTER - | | | | | | LABORATORY | | + + + + + + | eGFR if not | 54 (L)Comment: | >=60 | [place] | | | | GLOMERULAR FILTRATION | mL/min/1.73m2 | [facility] | | | [facility] | RATE,ESTIMATED | | MEDICAL | | | | mL/min/1.84q0Sqro than | | CENTER - | | | | 60 Chronic kidney | | LABORATORY | | | | disease,if found over a | | | | | | 3-month period.Less than | | | | | | 15 Kidney failureFor | | | | | | | | | | | | Americans,multiply the | | | | | | calculated GFR by 1.21. | | | | | | | | | | + + + + + + | Calcium | 8.8 | 8.3 - 10.5 | [facility] | | | | | mg/dL | [facility] | | | | | | MEDICAL | | | | | | CENTER - | | | | | | LABORATORY | | + + + + + + | BUN/Creatin | 21.1 | | [facility] | | | ine Ratio | | | [facility] | | | | | | MEDICAL | | | | | | CENTER - | | | | | | LABORATORY | | + + + + + + + + | Specimen | + + | Blood | + + + + + + + | Performing | Address | City/State/Zipcode | Phone Number | | Organization | | | | + + + + + | [facility] | [address] | [place] | [phone] | | [facility] | | [address] | | | - LABORATORY | | | | + + + + + PTT (05/10/2017 8:33 PM PDT) + +--------+ + + + | Component | Value | Ref Range | Performed | Pathologist | | | | | At | Signature | + +--------+ + + + | aPTT | 42 (H) | 22 - 36 seconds | [facility] | | | | | | [facility] | | | | | | [facility] | | | | | | CENTER - | | | | | | LABORATORY | | + +--------+ + + + + + | Specimen | + + | Blood | + + + + + + + | Performing | Address | City/State/Zipcode | Phone Number | | Organization | | | | + + + + + | [facility] | [address] | [place] | [phone] | | [facility] | | [address] | | | - LABORATORY | | | | + + + + + Protime INR (05/10/2017 8:33 PM PDT) + + + + + + | Component | Value | Ref Range | Performed | Pathologist | | | | | At | Signature | + + + + + + | Prothrombin | 23.9 (H) | 11.3 - 13.9 | [facility] | | | Time | | seconds | [facility] | | | | | | MEDICAL | | | | | | CENTER - | | | | | | LABORATORY | | + + + + + + | INR | 2.07 (H)Comment: Usual | 0.90 - 1.10 | [facility] | | | | Oral Anticoagulation | | [facility] | | | | Range: 2.0 - | | MEDICAL | | | | 3.0High Level Oral | | CENTER - | | | | Anticoagulation Range: | | LABORATORY | | | | 2.5 - 3.5 | | | | + + + + + + + + | Specimen | + + | Blood | + + + + + + + | Performing | Address | City/State/Zipcode | Phone Number | | Organization | | | | + + + + + | [facility] | [address] | [place] | [phone] | | [facility] | | [address] | | | - LABORATORY | | | | + + + + + ECG 12 lead (05/10/2017 6:37 PM PDT) + + + + + + | Component | Value | Ref Range | Performed | Pathologist | | | | | At | Signature | + + + + + + | VENTRICULAR | 44 | BPM | [facility] | | | RATE EKG | | | | | + + + + + + | ATRIAL RATE | 340 | BPM | [facility] | | + + + + + + | QRS | 138 | ms | [facility] | | | DURATION | | | | | + + + + + + | Q-T | 478 | ms | [facility] | | | INTERVAL | | | | | + + + + + + | Q-T | 408 | ms | [facility] | | | INTERVAL | | | | | | (CORRECTED) | | | | | + + + + + + | QRS AXIS | -32 | degrees | [facility] | | + + + + + + | T AXIS | 152 | degrees | [facility] | | + + + + + + | INTERPRETAT | undetermined bradycardia | | [facility] | | | ION TEXT | arrhythmia with a | | | | | | single sinus | | | | | | complexLeft axis | | | | | | deviationNonspecific | | | | | | intraventricular block | | | | | | with intermittent | | | | | | atypical left | | | | | | bundle-branch | | | | | | blockCannot rule out | | | | | | Anterior infarct (cited | | | | | | on or before | | | | | | 10-MAY-2017)ST & T wave | | | | | | abnormality, consider | | | | | | anterolateral | | | | | | ischemiaAbnormal ECGWhen | | | | | | compared with ECG of | | | | | | 10-MAY-2017 | | | | | | 00:53,undetermined | | | | | | bradycardia arrhythmia | | | | | | has replaced Sinus | | | | | | rhythmVent. rate has | | | | | | decreased BY 67 BPMST | | | | | | abnormality and T wave | | | | | | inversion more evident | | | | | | in Anterolateral | | | | | | leadsConfirmed by | | | | | | BINU MACK MD ([id number]) | | | | | | on 05/12/2017 8:59:08 AM | | | | + + + + + + + + | Specimen | + + | | + + + + + | Narrative | Performed At | + + + | | | + + + + +---------+ + + | Performing | Address | City/State/Zipcode | Phone Number | | Organization | | | | + +---------+ + + | [facility] | | | | + +---------+ + + ECG 12 lead (05/10/2017 12:53 AM PDT) + + + + + + | Component | Value | Ref Range | Performed | Pathologist | | | | | At | Signature | + + + + + + | VENTRICULAR | 111 | BPM | [facility] | | | RATE EKG | | | | | + + + + + + | ATRIAL RATE | 111 | BPM | [facility] | | + + + + + + | P-R | 176 | ms | [facility] | | | INTERVAL | | | | | + + + + + + | QRS | 136 | ms | [facility] | | | DURATION | | | | | + + + + + + | Q-T | 368 | ms | [facility] | | | INTERVAL | | | | | + + + + + + | Q-T | 500 | ms | [facility] | | | INTERVAL | | | | | | (CORRECTED) | | | | | + + + + + + | QRS AXIS | -40 | degrees | [facility] | | + + + + + + | T AXIS | 157 | degrees | [facility] | | + + + + + + | INTERPRETAT | Sinus tachycardia with | | [facility] | | | ION TEXT | premature atrial | | | | | | complexes with aberrant | | | | | | conductionLeft axis | | | | | | deviationLeft bundle | | | | | | branch blockT wave | | | | | | abnormality, consider | | | | | | inferolateral | | | | | | ischemiaAbnormal ECGWhen | | | | | | compared with ECG of | | | | | | 08-MAY-2017 12:29,Sinus | | | | | | rhythm has replaced | | | | | | Atrial | | | | | | fibrillationConfirmed by | | | | | | BINU MACK MD ([id number]) | | | | | | on 05/10/2017 5:50:22 AM | | | | | | | | | | + + + + + + + + | Specimen | + + | | + + + + + | Narrative | Performed At | + + + | | | + + + + +---------+ + + | Performing | Address | City/State/Zipcode | Phone Number | | Organization | | | | + +---------+ + + | [facility] | | | | + +---------+ + + Extra Green Top Tube (05/09/2017 4:05 AM PDT) + +-------+ + + + | Component | Value | Ref Range | Performed | Pathologist | | | | | At | Signature | + +-------+ + + + | Extra Green | Done | | [facility] | | | Top T[facility] | | | [facility] | | | | | | [facility] | | | | | | [facility] - | | | | | | LABORATORY | | + +-------+ + + + + + | Specimen | + + | Blood | + + + + + + + | Performing | Address | City/State/Zipcode | Phone Number | | Organization | | | | + + + + + | [facility] | [address] | [place] | [phone] | | [facility] | | [id number] | | | - LABORATORY | | | | + + + + + Extra Lavender Top Tube (05/09/2017 4:05 AM PDT) + +-------+ + + + | Component | Value | Ref Range | Performed | Pathologist | | | | | At | Signature | + +-------+ + + + | Extra | Done | | [facility] | | | Lavender | | | [facility] | | | Top Tube | | | [facility] | | | | | | CENTER - | | | | | | LABORATORY | | + +-------+ + + + + + | Specimen | + + | Blood | + + + + + + + | Performing | Address | City/State/Zipcode | Phone Number | | Organization | | | | + + + + + | [facility] | [address] | [place] | [phone] | | [facility] | | [address] | | | - LABORATORY | | | | + + + + + Protime INR (05/09/2017 4:05 AM PDT) + + + + + + | Component | Value | Ref Range | Performed | Pathologist | | | | | At | Signature | + + + + + + | Prothrombin | 20.5 (H) | 11.3 - 13.9 | [facility] | | | Time | | seconds | [facility] | | | | | | MEDICAL | | | | | | CENTER - | | | | | | LABORATORY | | + + + + + + | INR | 1.71 (H)Comment: Usual | 0.90 - 1.10 | [facility] | | | | Oral Anticoagulation | | [facility] | | | | Range: 2.0 - | | MEDICAL | | | | 3.0High Level Oral | | CENTER - | | | | Anticoagulation Range: | | LABORATORY | | | | 2.5 - 3.5 | | | | + + + + + + + + | Specimen | + + | Blood | + + + + + + + | Performing | Address | City/State/Zipcode | Phone Number | | Organization | | | | + + + + + | [facility] | [address] | [place] | [phone] | | [facility] | | [address] | | | - LABORATORY | | | | + + + + + Creatinine (05/08/2017 6:36 PM PDT) + + + + + + | Component | Value | Ref Range | Performed | Pathologist | | | | | At | Signature | + + + + + + | Creatinine | 1.56 (H) | 0.60 - 1.30 | [facility] | | | | | mg/dL | [facility] | | | | | | MEDICAL | | | | | | CENTER - | | | | | | LABORATORY | | + + + + + + | eGFR if not | 43 (L)Comment: | >=60 | [facility] | | | | GLOMERULAR FILTRATION | mL/min/1.73m2 | [facility] | | | [facility] | RATE,ESTIMATED | | MEDICAL | | | | mL/min/1.94b7Fmrv than | | CENTER - | | | | 60 Chronic kidney | | LABORATORY | | | | disease,if found over a | | | | | | 3-month period.Less than | | | | | | 15 Kidney failureFor | | | | | | | | | | | | Americans,multiply the | | | | | | calculated GFR by 1.21. | | | | | | | | | | + + + + + + + + | Specimen | + + | Blood | + + + + + + + | Performing | Address | City/State/Zipcode | Phone Number | | Organization | | | | + + + + + | [facility] | [address] | [place] | [phone] | | [facility] | | [address] | | | - LABORATORY | | | | + + + + + CBC no Differential (05/08/2017 6:36 PM PDT) + + + + + + | Component | Value | Ref Range | Performed | Pathologist | | | | | At | Signature | + + + + + + | White Blood | 5.3 | 4.0 - 11.0 K/uL | [facility] | | | Cells | | | [facility] | | | | | | MEDICAL | | | | | | CENTER - | | | | | | LABORATORY | | + + + + + + | Red Blood | 3.16 (L) | 4.30 - 5.70 | [facility] | | | Cells | | M/uL | [facility] | | | | | | MEDICAL | | | | | | CENTER - | | | | | | LABORATORY | | + + + + + + | Hemoglobin | 9.3 (L) | 13.5 - 18.0 | [facility] | | | | | g/dL | [facility] | | | | | | MEDICAL | | | | | | CENTER - | | | | | | LABORATORY | | + + + + + + | Hematocrit | 29.9 (L) | 40.0 - 51.0 % | [facility] | | | | | | [facility] | | | | | | MEDICAL | | | | | | CENTER - | | | | | | LABORATORY | | + + + + + + | MCV | 94.7 | 83.0 - 101.0 fL | [facility] | | | | | | [facility] | | | | | | MEDICAL | | | | | | CENTER - | | | | | | LABORATORY | | + + + + + + | MCH | 29.3 | 28.0 - 35.0 pg | [facility] | | | | | | [facility] | | | | | | MEDICAL | | | | | | CENTER - | | | | | | LABORATORY | | + + + + + + | MCHC | 31.0 (L) | 32.0 - 36.0 | [facility] | | | | | g/dL | [facility] | | | | | | MEDICAL | | | | | | CENTER - | | | | | | LABORATORY | | + + + + + + | RDW-CV | 17.1 (H) | <15.0 % | [facility] | | | | | | [facility] | | | | | | MEDICAL | | | | | | CENTER - | | | | | | LABORATORY | | + + + + + + | Platelet | 135 (L) | 140 - 440 K/uL | [facility] | | | Count | | | [facility] | | | | | | MEDICAL | | | | | | CENTER - | | | | | | LABORATORY | | + + + + + + | MPV | 7.8 | fL | [facility] | | | | | | [facility] | | | | | | MEDICAL | | | | | | CENTER - | | | | | | LABORATORY | | + + + + + + + + | Specimen | + + | Blood | + + + + + + + | Performing | Address | City/State/Zipcode | Phone Number | | Organization | | | | + + + + + | [facility] | [address] | [place] | [phone] | | [facility] | | [address] | | | - LABORATORY | | | | + + + + + Protime INR (05/08/2017 6:36 PM PDT) + + + + + + | Component | Value | Ref Range | Performed | Pathologist | | | | | At | Signature | + + + + + + | Prothrombin | 19.9 (H) | 11.3 - 13.9 | [facility] | | | Time | | seconds | [facility] | | | | | | MEDICAL | | | | | | CENTER - | | | | | | LABORATORY | | + + + + + + | INR | 1.65 (H)Comment: Usual | 0.90 - 1.10 | [facility] | | | | Oral Anticoagulation | | [facility] | | | | Range: 2.0 - | | MEDICAL | | | | 3.0High Level Oral | | CENTER - | | | | Anticoagulation Range: | | LABORATORY | | | | 2.5 - 3.5 | | | | + + + + + + + + | Specimen | + + | Blood | + + + + + + + | Performing | Address | City/State/Zipcode | Phone Number | | Organization | | | | + + + + + | [facility] | [address] | [place] | [phone] | | [facility] | | [address] | | | - LABORATORY | | | | + + + + + Culture, MRSA (05/08/2017 1:30 PM PDT) + + + + + + | Component | Value | Ref Range | Performed | Pathologist | | | | | At | Signature | + + + + + + | Culture | Negative for MRSA by | | [facility] | | | | chromogenic agar method | | [facility] | | | | | | MEDICAL | | | | | | CENTER - | | | | | | LABORATORY | | + + + + + + + + | Specimen | + + | Respiratory - Both | | anterior nares (body | | structure) | + + + + + + + | Performing | Address | City/State/Zipcode | Phone Number | | Organization | | | | + + + + + | [facility] | [address] | [place] | [phone] | | [facility] | | [address] | | | - LABORATORY | | | | + + + + + ECG 12 lead (05/08/2017 12:29 PM PDT) + + + + + + | Component | Value | Ref Range | Performed | Pathologist | | | | | At | Signature | + + + + + + | VENTRICULAR | 150 | BPM | [facility] | | | RATE EKG | | | | | + + + + + + | ATRIAL RATE | 150 | BPM | [facility] | | + + + + + + | P-R | 112 | ms | [facility] | | | INTERVAL | | | | | + + + + + + | QRS | 116 | ms | [facility] | | | DURATION | | | | | + + + + + + | Q-T | 238 | ms | [facility] | | | INTERVAL | | | | | + + + + + + | Q-T | 376 | ms | [facility] | | | INTERVAL | | | | | | (CORRECTED) | | | | | + + + + + + | P WAVE AXIS | 156 | degrees | [facility] | | + + + + + + | QRS AXIS | -42 | degrees | [facility] | | + + + + + + | T AXIS | 173 | degrees | [facility] | | + + + + + + | INTERPRETAT | Atrial fibrillation with | | [facility] | | | ION TEXT | rapid ventricular | | | | | | responseLeft axis | | | | | | deviationLeft bundle | | | | | | branch blockevidence of | | | | | | underlying pacemaker | | | | | | which is not | | | | | | capturing.Abnormal | | | | | | ECGWhen compared with | | | | | | ECG of 07-MAY-2017 | | | | | | 11:44,Significant | | | | | | changes have | | | | | | occurredConfirmed by | | | | | | BINU MACK MD ([id number]) | | | | | | on 05/09/2017 5:55:34 AM | | | | + + + + + + + + | Specimen | + + | | + + + + + | Narrative | Performed At | + + + | | | + + + + +---------+ + + | Performing | Address | City/State/Zipcode | Phone Number | | Organization | | | | + +---------+ + + | [facility] | | | | + +---------+ + + EGD (05/08/2017 9:20 AM PDT) + + | Specimen | + + | | + + + + -+ | Narrative | Performed At | + + -+ | | [facility] | | GastroenterologyPatient Name: Jacklyn Hdezcedjeremy Date: 05/08/2017 | [facility] | | 9:20 AMMRN: [id number] #: [id number] of : | | | 1935dmit Type: InpatientAge: 81Room: [facility]Gender: MaleNote | | | Status: FinalizedAttending MD: Peter Maciel , MDProcedure: | | | Upper GI endoscopyIndications: Gastrointestinal | | | bleeding of unknown originProviders: Peter Maciel MD, | | | Malka Dueñas RN, Amelie Cabral | | | Sukumar, Meat Carver, Miguel Galicia MD | | | (Anesthesia Staff)Medicines: Monitored Anesthesia | | | CareComplications: No immediate complications.Procedure: | | | Pre-Anesthesia Assessment: - Prior to the procedure, a History | | | and Physical was performed, and patient medications and | | | allergies were reviewed. The patient is competent. The risks | | | and benefits of the procedure and the sedation options and | | | risks were discussed with the patient. All questions were | | | answered and informed consent was obtained. Patient identification and | | | proposed procedure were verified by the physician, the nurse, | | | the anesthesiologist and the organic preparation technician in the pre-procedure | | | area in the endoscopy suite. Mental Status Examination: alert | | | and oriented. Airway Examination: normal oropharyngeal airway | | | and neck mobility. Respiratory Examination: clear to | | | auscultation. CV Examination: normal. Prophylactic Antibiotics: | | | The patient does not require prophylactic antibiotics. Prior | | | Anticoagulants: The patient has taken no previous anticoagulant or | | | antiplatelet agents. ASA Grade Assessment: III - A patient with | | | severe systemic disease. After reviewing the risks and | | | benefits, the patient was deemed in satisfactory condition to | | | undergo the procedure. The anesthesia plan was to use monitored | | | anesthesia care (MAC). Immediately prior to administration of | | | medications, the patient was re-assessed for adequacy to | | | receive sedatives. The heart rate, respiratory rate, oxygen | | | saturations, blood pressure, adequacy of pulmonary ventilation, and | | | response to care were monitored throughout the procedure. The | | | physical status of the patient was re-assessed after the | | | procedure. After obtaining informed consent, the endoscope was | | | passed under direct vision. Throughout the procedure, the | | | patient's blood pressure, pulse, and oxygen saturations were | | | monitored continuously. The Endoscope was introduced through | | | the mouth, and advanced to the third part of duodenum. The | | | upper GI endoscopy was accomplished without difficulty. The | | | patient tolerated the procedure well.Findings: The examined | | | esophagus was normal. A small amount of food (residue) was found | | | in the gastric body and in the gastric antrum. The exam | | | of the stomach was otherwise normal. The cardia and gastric | | | fundus were normal on retroflexion. Food (residue) was found in | | | the duodenal bulb and in the second portion of the duodenum. | | | The exam of the duodenum was otherwise normal.Impression: - | | | Normal esophagus. - A small amount of food (residue) in the | | | stomach. - Retained food in the duodenum. - No specimens | | | collected.Recommendation: - [facility] for | | | ongoing care. - Clear liquid diet. - Continue present | | | medications. - The findings and recommendations were discussed | | | with the patient.Peter Maciel MD05/08/2017 9:44:54 AMThis report | | | has been signed electronically.Number of Addenda: 0Note Initiated On: | | | 05/08/2017 9:20 AMTotal Procedure Duration: 0 hours 5 minutes 11 | | | seconds Scope In: 9:35:52 AMScope Out: 9:41:03 AM [facility]. | | | [facility], [address] [place] [address] | | | [phone] | | | - A small amount of food (residue) in the stomach. | | | - Retained food in the duodenum. | | | - No specimens collected. | | |Recommendation: | | | - Return [facility] to [facility] care. | | | - Clear liquid diet. | | | - Continue present medications. | | | - The findings and recommendations were discussed with the patient. | | |Peter Maciel MD | | |05/08/2017 9:44:54 AM | | |This report has been signed electronically. | | |Number of Addenda: 0 | | |Note Initiated On: 05/08/2017 9:20 AM | | |Total Procedure Duration: 0 hours 5 minutes 11 seconds | | |Scope In: 9:35:52 AM | | |Scope Out: 9:41:03 AM | | | [facility]. [facility], [address] [place], [place] | | | [address] | | + + -+ + +---------+ + + | Performing | Address | City/State/Zipcode | Phone Number | | Organization | | | | + +---------+ + + | [facility] | | | | + +---------+ + + Magnesium (05/08/2017 7:03 AM PDT) + +-------+ + + + | Component | Value | Ref Range | Performed | Pathologist | | | | | At | Signature | + +-------+ + + + | Magnesium | 2.3 | 1.8 - 2.5 mg/dL | [facility] | | | | | | [facility] | | | | | | MEDICAL | | | | | | CENTER - | | | | | | LABORATORY | | + +-------+ + + + + + | Specimen | + + | Blood | + + + + + + + | Performing | Address | City/State/Zipcode | Phone Number | | Organization | | | | + + + + + | [facility] | [address] | [place] | [phone] | | [facility] | | [address] | | | - LABORATORY | | | | + + + + + Basic Metabolic Panel (05/08/2017 7:03 AM PDT) + + + + + + | Component | Value | Ref Range | Performed | Pathologist | | | | | At | Signature | + + + + + + | Na | 144 | 136 - 149 | [facility] | | | | | mmol/L | [facility] | | | | | | [facility] | | | | | | CENTER - | | | | | | LABORATORY | | + + + + + + | K | 4.5 | 3.5 - 5.1 | [facility] | | | | | mmol/L | [facility] | | | | | | [facility] | | | | | | CENTER - | | | | | | LABORATORY | | + + + + + + | Cl | 114 (H) | 98 - 109 mmol/L | [facility] | | | | | | [facility] | | | | | | [facility] | | | | | | CENTER - | | | | | | LABORATORY | | + + + + + + | CO2 | 25 | 24 - 31 mmol/L | [facility] | | | | | | [facility] | | | | | | MEDICAL | | | | | | CENTER - | | | | | | LABORATORY | | + + + + + + | Anion Gap | 5 | 3 - 16 mmol/L | [facility] | | | | | | [facility] | | | | | | MEDICAL | | | | | | CENTER - | | | | | | LABORATORY | | + + + + + + | Glucose | 110 (H) | 70 - 109 mg/dL | [facility] | | | | | | [facility] | | | | | | MEDICAL | | | | | | CENTER - | | | | | | LABORATORY | | + + + + + + | BUN | 32 (H) | 7 - 18 mg/dL | [facility] | | | | | | [facility] | | | | | | MEDICAL | | | | | | CENTER - | | | | | | LABORATORY | | + + + + + + | Creatinine | 1.42 (H) | 0.60 - 1.30 | [place] | | | | | mg/dL | [facility] | | | | | | MEDICAL | | | | | | CENTER - | | | | | | LABORATORY | | + + + + + + | eGFR if not | 48 (L)Comment: | >=60 | [facility] | | | | GLOMERULAR FILTRATION | mL/min/1.73m2 | [facility] | | | [facility] | RATE,ESTIMATED | | MEDICAL | | | | mL/min/1.79y9Ibmh than | | CENTER - | | | | 60 Chronic kidney | | LABORATORY | | | | disease,if found over a | | | | | | 3-month period.Less than | | | | | | 15 Kidney failureFor | | | | | | | | | | | | Americans,multiply the | | | | | | calculated GFR by 1.21. | | | | | | | | | | + + + + + + | Calcium | 8.9 | 8.3 - 10.5 | [facility] | | | | | mg/dL | [facility] | | | | | | MEDICAL | | | | | | CENTER - | | | | | | LABORATORY | | + + + + + + | BUN/Creatin | 22.5 | | [facility] | | | ine Ratio | | | [facility] | | | | | | MEDICAL | | | | | | CENTER - | | | | | | LABORATORY | | + + + + + + + + | Specimen | + + | Blood | + + + + + + + | Performing | Address | City/State/Zipcode | Phone Number | | Organization | | | | + + + + + | [facility] | [address] | [place] | [phone] | | [facility] | | [address] | | | - LABORATORY | | | | + + + + + CBC no Differential (05/08/2017 4:56 AM PDT) + + + + + + | Component | Value | Ref Range | Performed | Pathologist | | | | | At | Signature | + + + + + + | White Blood | 6.1 | 4.0 - 11.0 K/uL | [facility] | | | Cells | | | [facility] | | | | | | MEDICAL | | | | | | CENTER - | | | | | | LABORATORY | | + + + + + + | Red Blood | 3.13 (L) | 4.30 - 5.70 | [facility] | | | Cells | | M/uL | [facility] | | | | | | MEDICAL | | | | | | CENTER - | | | | | | LABORATORY | | + + + + + + | Hemoglobin | 9.3 (L) | 13.5 - 18.0 | [facility] | | | | | g/dL | [facility] | | | | | | MEDICAL | | | | | | CENTER - | | | | | | LABORATORY | | + + + + + + | Hematocrit | 29.8 (L) | 40.0 - 51.0 % | [facility] | | | | | | [facility] | | | | | | MEDICAL | | | | | | CENTER - | | | | | | LABORATORY | | + + + + + + | MCV | 95.2 | 83.0 - 101.0 fL | [facility] | | | | | | [facility] | | | | | | MEDICAL | | | | | | CENTER - | | | | | | LABORATORY | | + + + + + + | MCH | 29.7 | 28.0 - 35.0 pg | [facility] | | | | | | [facility] | | | | | | MEDICAL | | | | | | CENTER - | | | | | | LABORATORY | | + + + + + + | MCHC | 31.2 (L) | 32.0 - 36.0 | [facility] | | | | | g/dL | [facility] | | | | | | MEDICAL | | | | | | CENTER - | | | | | | LABORATORY | | + + + + + + | RDW-CV | 17.1 (H) | <15.0 % | [facility] | | | | | | [facility] | | | | | | MEDICAL | | | | | | CENTER - | | | | | | LABORATORY | | + + + + + + | Platelet | 133 (L) | 140 - 440 K/uL | [facility] | | | Count | | | [facility] | | | | | | MEDICAL | | | | | | CENTER - | | | | | | LABORATORY | | + + + + + + | MPV | 8.3 | fL | [facility] | | | | | | [facility] | | | | | | MEDICAL | | | | | | CENTER - | | | | | | LABORATORY | | + + + + + + + + | Specimen | + + | Blood | + + + + + + + | Performing | Address | City/State/Zipcode | Phone Number | | Organization | | | | + + + + + | [facility] | [address] | [place] | [phone] | | [facility] | | [address] | | | - LABORATORY | | | | + + + + + Basic Metabolic Panel (05/07/2017 5:24 PM PDT) + + + + + + | Component | Value | Ref Range | Performed | Pathologist | | | | | At | Signature | + + + + + + | Na | 143 | 136 - 149 | [facility] | | | | | mmol/L | [facility] | | | | | | MEDICAL | | | | | | CENTER - | | | | | | LABORATORY | | + + + + + + | K | 4.1 | 3.5 - 5.1 | [facility] | | | | | mmol/L | [facility] | | | | | | MEDICAL | | | | | | CENTER - | | | | | | LABORATORY | | + + + + + + | Cl | 113 (H) | 98 - 109 mmol/L | [facility] | | | | | | [facility] | | | | | | MEDICAL | | | | | | CENTER - | | | | | | LABORATORY | | + + + + + + | CO2 | 26 | 24 - 31 mmol/L | [facility] | | | | | | [facility] | | | | | | MEDICAL | | | | | | CENTER - | | | | | | LABORATORY | | + + + + + + | Anion Gap | 4 | 3 - 16 mmol/L | [facility] | | | | | | [facility] | | | | | | MEDICAL | | | | | | CENTER - | | | | | | LABORATORY | | + + + + + + | Glucose | 107 | 70 - 109 mg/dL | [facility] | | | | | | [facility] | | | | | | MEDICAL | | | | | | CENTER - | | | | | | LABORATORY | | + + + + + + | BUN | 34 (H) | 7 - 18 mg/dL | [facility] | | | | | | [facility] | | | | | | [facility]ICAL | | | | | | CENTER - | | | | | | LABORATORY | | + + + + + + | Creatinine | 1.36 (H) | 0.60 - 1.30 | [facility] | | | | | mg/dL | [facility] | | | | | | MEDICAL | | | | | | CENTER - | | | | | | LABORATORY | | + + + + + + | eGFR if not | 50 (L)Comment: | >=60 | [facility] | | | | GLOMERULAR FILTRATION | mL/min/1.73m2 | [facility] | | | [facility] | RATE,ESTIMATED | | MEDICAL | | | | mL/min/1.11n6Hmxd than | | CENTER - | | | | 60 Chronic kidney | | LABORATORY | | | | disease,if found over a | | | | | | 3-month period.Less than | | | | | | 15 Kidney failureFor | | | | | | | | | | | | Americans,multiply the | | | | | | calculated GFR by 1.21. | | | | | | | | | | + + + + + + | Calcium | 8.8 | 8.3 - 10.5 | [facility] | | | | | mg/dL | [facility] | | | | | | MEDICAL | | | | | | CENTER - | | | | | | LABORATORY | | + + + + + + | BUN/Creatin | 25.0 | | [facility] | | | ine Ratio | | | [facility] | | | | | | MEDICAL | | | | | | CENTER - | | | | | | LABORATORY | | + + + + + + + + | Specimen | + + | Blood | + + + + + + + | Performing | Address | City/State/Zipcode | Phone Number | | Organization | | | | + + + + + | [facility] | [address] | [place] | [phone] | | [facility] | | [address] | | | - LABORATORY | | | | + + + + + B Type Natriuretic Peptide (05/07/2017 5:24 PM PDT) + +---------+ + + + | Component | Value | Ref Range | Performed | Pathologist | | | | | At | Signature | + +---------+ + + + | BNP | 488 (H) | <100 pg/mL | [facility] | | | | | | [facility] | | | | | | MEDICAL | | | | | | CENTER - | | | | | | LABORATORY | | + +---------+ + + + + + | Specimen | + + | Blood | + + + + + + + | Performing | Address | City/State/Zipcode | Phone Number | | Organization | | | | + + + + + | [facility] | [address] | [place] | [phone] | | [facility] | | [address] | | | - LABORATORY | | | | + + + + + Protime INR (05/07/2017 5:24 PM PDT) + + + + + + | Component | Value | Ref Range | Performed | Pathologist | | | | | At | Signature | + + + + + + | Prothrombin | 17.8 (H) | 11.3 - 13.9 | [facility] | | | Time | | seconds | [facility] | | | | | | MEDICAL | | | | | | CENTER - | | | | | | LABORATORY | | + + + + + + | INR | 1.43 (H)Comment: Usual | 0.90 - 1.10 | [facility] | | | | Oral Anticoagulation | | [facility] | | | | Range: 2.0 - | | MEDICAL | | | | 3.0High Level Oral | | CENTER - | | | | Anticoagulation Range: | | LABORATORY | | | | 2.5 - 3.5 | | | | + + + + + + + + | Specimen | + + | Blood | + + + + + + + | Performing | Address | City/State/Zipcode | Phone Number | | Organization | | | | + + + + + | [facility] | [address] | [place] | [phone] | | [facility] | | [address] | | | - LABORATORY | | | | + + + + + Ammonia (05/07/2017 5:24 PM PDT) + +--------+ + + + | Component | Value | Ref Range | Performed | Pathologist | | | | | At | Signature | + +--------+ + + + | Ammonia | <9 (L) | 11 - 35 umol/L | [facility] | | | | | | [facility] | | | | | | MEDICAL | | | | | | CENTER - | | | | | | LABORATORY | | + +--------+ + + + + + | Specimen | + + | Blood | + + + + + + + | Performing | Address | City/State/Zipcode | Phone Number | | Organization | | | | + + + + + | [facility] | [address] | [place] | [phone] | | [facility] | | [address] | | | - LABORATORY | | | | + + + + + PTT (05/07/2017 5:24 PM PDT) + +-------+ + + + | Component | Value | Ref Range | Performed | Pathologist | | | | | At | Signature | + +-------+ + + + | aPTT | 34 | 22 - 36 seconds | [facility] | | | | | | [facility] | | | | | | MED[facility] | | | | | | CENTER - | | | | | | LABORATORY | | + +-------+ + + + + + | Specimen | + + | Blood | + + + + + + + | Performing | Address | City/State/Zipcode | Phone Number | | Organization | | | | + + + + + | [facility] | [address] | [place] | [phone] | | [facility] | | [address] | | | - LABORATORY | | | | + + + + + Hepatic Function Panel (05/07/2017 5:24 PM PDT) + + + + + + | Component | Value | Ref Range | Performed | Pathologist | | | | | At | Signature | + + + + + + | Bilirubin | 0.8 | 0.1 - 1.5 mg/dL | [facility] | | | Total | | | [facility] | | | | | | [facility] | | | | [facility] - | | | | | | LABORATORY | | + + + + + + | Total | 5.7 (L) | 6.0 - 7.8 g/dL | [facility] | | | Protein | | | [facility] | | | | | | [facility] | | | | | | [facility] - | | | | | | LABORATORY | | + + + + + + | Albumin | 3.3 | 3.2 - 5.0 g/dL | [facility] | | | | | | [facility] | | | | | | [facility] | | | | | | [facility] - | | | | | | LABORATORY | | + + + + + + | AST | 32 | 10 - 42 U/L | [facility] | | | | | | [facility] | | | [facility] | | [facility] | | | | | | [facility] - | | | | | | LABORATORY | | + + + + + + | ALT | 16 | 6 - 45 U/L | [facility] | | | | | | [facility] | | | | | | [facility] | | | | | | [facility] - | | | | | | LABORATORY | | + + + + + + | Alkaline | 79 | 40 - 110 U/L | [facility] | | | Phosphatase | | | [facility] | | | | | | [facility] | | | | | | [facility] - | | | | | | LABORATORY | | + + + + + + | Globulin | 2.4 | 2.1 - 3.8 g/dL | [facility] | | | | | | [facility] | | | | | | [facility] | | | | | | [facility] - | | | | | | LABORATORY | | + + + + + + | Albumin/Mary Alice | 1.4 | 0.8 - 2.0 | [facility] | | | bulin Ratio | | | [facility] | | | | | | [facility] | | | | | | [facility] - | | | | | | LABORATORY | | + + + + + + | Bilirubin, | 0.30 (H) | 0.00 - 0.20 | [facility] | | | Direct | | mg/dl | [facility] | | | | | | [facility] | | | | | | [facility] - | | | | | | LABORATORY | | + + + + + + + + | Specimen | + + | Blood | + + + + + + + | Performing | Address | City/State/Zipcode | Phone Number | | Organization | | | | + + + + + | [facility] | [address] | [place] | [phone] | | [facility] | | [address] | | | - LABORATORY | | | | + + + + + Hemoglobin and Hematocrit (05/07/2017 5:24 PM PDT) + + + + + + | Component | Value | Ref Range | Performed | Pathologist | | | | | At | Signature | + + + + + + | Hemoglobin | 9.2 (L) | 13.5 - 18.0 | [facility] | | | | | g/dL | [facility] | | | | | | MEDICAL | | | | | | CENTER - | | | | | | LABORATORY | | + + + + + + | Hematocrit | 28.7 (L) | 40.0 - 51.0 % | [facility] | | | | | | [facility] | | | | | | [facility] | | | | | | CENTER - | | | | | | LABORATORY | | + + + + + + + + | Specimen | + + | Blood | + + + + + + + | Performing | Address | City/State/Zipcode | Phone Number | | Organization | | | | + + + + + | [facility] | [address] | [place] | [phone] | | [facility] | | [address] | | | - LABORATORY | | | | + + + + + POCT Urinalysis Dipstick Automated (05/07/2017 12:21 PM PDT) + + + + + + | Component | Value | Ref Range | Performed | Pathologist | | | | | At | Signature | + + + + + + | Color, UA, | Yellow | Yellow, Light | [facility] | | | POC | | Yellow | [facility] | | | | | | MEDICAL | | | | | | CENTER - | | | | | | LABORATORY | | + + + + + + | Clarity, | Clear | | [facility] | | | UA, POC | | | [facility] | | | | | | MEDICAL | | | | | | CENTER - | | | | | | LABORATORY | | + + + + + + | Glucose, | Negative | Negative | [facility] | | | UA, POC | | | [facility] | | | | | | MEDICAL | | | | | | CENTER - | | | | | | LABORATORY | | + + + + + + | Bilirubin, | Negative | Negative | [facility] | | | UA, POC | | | [facility] | | | | | | MEDICAL | | | | | | CENTER - | | | | | | LABORATORY | | + + + + + + | Ketones, | Negative | Negative, 100 | [facility] | | | UA, POC | | mg/dL | [facility] | | | | | | MEDICAL | | | | | | CENTER - | | | | | | LABORATORY | | + + + + + + | Specific | 1.025 | 1.001 - 1.030 | [facility] | | | [place], | | | [facility] | | | UA, POC | | | MEDICAL | | | | | | CENTER - | | | | | | LABORATORY | | + + + + + + | Blood, UA, | Negative | Negative | [facility] | | | POC | | | [facility] | | | | | | MEDICAL | | | | | | CENTER - | | | | | | LABORATORY | | + + + + + + | pH, UA, POC | 5.0 | 5.0, 6.0, 7.0, | [facility] | | | | | 8.0, 5.5, 6.5, | [facility] | | | | | 7.5 | MEDICAL | | | | | | CENTER - | | | | | | LABORATORY | | + + + + + + | Protein, | 1+ (A) | Negative | [facility] | | | UA, POC | | | [facility] | | | | | | MEDICAL | | | | | | CENTER - | | | | | | LABORATORY | | + + + + + + | Urobilinoge | < 0.2 E.U./dl | 0.2, Negative, | [facility] | | | n, UA, POC | | Normal, < 0.2 | [facility] | | | | | mg/dL, 1 mg/dL, | MEDICAL | | | | | < 0.2 E.U./dl, | CENTER - | | | | | 1.0 E.U./dL, | LABORATORY | | | | | 0.2 mg/dL | | | + + + + + + | Nitrite, | Negative | Negative | [facility] | | | UA, POC | | | [facility] | | | | | | MEDICAL | | | | | | CENTER - | | | | | | LABORATORY | | + + + + + + | Leukocyte | Negative | Negative | [facility] | | | Esterase, | | | [facility] | | | UA, POC | | | MEDICAL | | | | | | CENTER - | | | | | | LABORATORY | | + + + + + + | Reducing | | | [facility] | | | Substances, | | | [facility] | | | Urine | | | MEDICAL | | | | | | CENTER - | | | | | | LABORATORY | | + + + + + + | Bilirubin | | Negative | [facility] | | | Confirmatio | | | [facility] | | | n by | | | MEDICAL | | | Ictotest, | | | CENTER - | | | Urine | | | LABORATORY | | + + + + + + | Remark | | | [facility] | | | | | | [facility] | | | | | | MEDICAL | | | | | | CENTER - | | | | | | LABORATORY | | + + + + + + + + | Specimen | + + | Urine | + + + + + + + | Performing | Address | City/State/Zipcode | Phone Number | | Organization | | | | + + + + + | [facility] | [address] | [place] | [phone] | | [facility] | | [address] | | | - LABORATORY | | | | + + + + + CT Head wo Contrast (05/07/2017 11:56 AM PDT) + + | Specimen | + + | | + + + + + | Narrative | Performed At | + + + | EXAM: CT HEAD WO CONTRAST dated 05/07/2017 11:52 AM HISTORY: | [facility] | | Trauma Comparison: None. TECHNIQUE: Noncontrast CT is | | | performed from the top of calvarium through the skull base. Coronal | | | and sagittal reformats are performed. FINDINGS: BRAIN: | | | There is mild cerebral atrophy. There is appropriate associated | | | prominence of the ventricles. A few enlarged right basal ganglia | | | perivascular spaces versus a tiny remote lacunar infarct is | | | identified. No areas of increased attenuation to suggest | | | intracranial hemorrhage. There is no mass, mass effect, or midline | | | shift. There are no abnormal extra-axial fluid or air collections. | | | There is preservation of the duarte-white differentiation at this | | | time. There are mild scattered regions of periventricular and | | | subcortical white matter low density. SCALP/ CALVARIUM: The | | | scalp and skull are intact and are unremarkable. SINUSES / ORBITS/ | | | MASTOIDS: The visible mastoid air cells and paranasal sinuses are | | | clear. Evidence of left-sided scleral banding and left aphakia. The | | | globes and retroconal contents are intact and without evidence of | | | acute abnormality. IMPRESSION - 1. No acute intracranial | | | abnormality identified. 2. Mild early cerebral atrophy and mild | | | nonspecific white matter changes. Dictated and Signed by: | | | Dion Whitehead MD Electronically signed: 05/07/2017 12:24 PM | | + + + + + | Procedure Note | + + | Radha, Rad Results In - 05/07/2017 12:27 PM PDT EXAM: CT HEAD WO CONTRAST dated | | 05/07/2017 11:52 AMHISTORY: TraumaComparison: None.TECHNIQUE: Noncontrast CT is | | performed from the top of calvarium through theskull base. Coronal and sagittal | | reformats are performed.FINDINGS: BRAIN: There is mild cerebral atrophy. There is | | appropriate associatedprominence of the ventricles. A few enlarged right basal ganglia | | perivascularspaces versus a tiny remote lacunar infarct is identified. No areas | | ofincreased attenuation to suggest intracranial hemorrhage. There is no mass,mass | | effect, or midline shift. There are no abnormal extra-axial fluid or aircollections. | | There is preservation of the duarte-white differentiation at thistime. There are mild | | scattered regions of periventricular and subcortical whitematter low density. SCALP/ | | CALVARIUM: The scalp and skull are intact and are unremarkable.SINUSES / ORBITS/ | | MASTOIDS: The visible mastoid air cells and paranasal sinusesare clear. Evidence of | | left-sided scleral banding and left aphakia. The globesand retroconal contents are | | intact and without evidence of acute abnormality.IMPRESSION -1. No acute intracranial | | abnormality identified.2. Mild early cerebral atrophy and mild nonspecific white matter | | changes.Dictated and Signed by: Dion Whitehead MD Electronically signed: 05/07/2017 | | 12:24 PM | |time. There are mild scattered regions of periventricular and subcortical white | |matter low density. | | | |SCALP/ CALVARIUM: The scalp and skull are intact and are unremarkable. | | | |SINUSES / ORBITS/ MASTOIDS: The visible mastoid air cells and paranasal sinuses | |are clear. Evidence of left-sided scleral banding and left aphakia. The globes | |and retroconal contents are intact and without evidence of acute abnormality. | | | |IMPRESSION - | |1. No acute intracranial abnormality identified. | |2. Mild early cerebral atrophy and mild nonspecific white matter changes. | | | | | | | |Dictated and Signed by: Dion Whitehead MD | | Electronically signed: 05/07/2017 12:24 PM | + + + +---------+ + + | Performing | Address | City/State/Zipcode | Phone Number | | Organization | | | | + +---------+ + + | [facility] | | | | + +---------+ + + ECG 12 lead (05/07/2017 11:44 AM PDT) + + + + + + | Component | Value | Ref Range | Performed | Pathologist | | | | | At | Signature | + + + + + + | VENTRICULAR | 106 | BPM | [facility] | | | RATE EKG | | | | | + + + + + + | ATRIAL RATE | 108 | BPM | [facility] | | + + + + + + | QRS | 132 | ms | [facility] | | | DURATION | | | | | + + + + + + | Q-T | 368 | ms | [facility] | | | INTERVAL | | | | | + + + + + + | Q-T | 488 | ms | [facility] | | | INTERVAL | | | | | | (CORRECTED) | | | | | + + + + + + | QRS AXIS | -27 | degrees | [facility] | | + + + + + + | T AXIS | 164 | degrees | [facility] | | + + + + + + | INTERPRETAT | probable atrial flutter | | [facility] | | | ION TEXT | with 2:1 conductionLeft | | | | | | bundle branch | | | | | | blockAbnormal ECGWhen | | | | | | compared with ECG of | | | | | | 27-FEB-2017 13:15,Atrial | | | | | | flutter has replaced | | | | | | Sinus rhythmVent. rate | | | | | | has increased BY 58 | | | | | | BPMQT has | | | | | | lengthenedConfirmed by | | | | | | BINU MACK MD ([id number]) | | | | | | on 05/08/2017 6:30:44 AM | | | | + + + + + + + + | Specimen | + + | | + + + + + | Narrative | Performed At | + + + | | | + + + + +---------+ + + | Performing | Address | City/State/Zipcode | Phone Number | | Organization | | | | + +---------+ + + | [facility] | | | | + +---------+ + + XR Chest AP Portable (05/07/2017 11:39 AM PDT) + + | Specimen | + + | | + + + + + | Narrative | Performed At | + + + | PORTABLE CHEST X-RAY: 05/07/2017 11:39 AM CLINICAL HISTORY:FALL | [facility] | | COMPARISON: 03/03/2017 FINDINGS:Stable sternal wires and valve | | | prosthesis. Chronic aortic arch calcification. No mediastinal | | | widening. Pulmonary vasculature is mildly prominent centrally. Stable | | | mild cardiomegaly. Persistent small left pleural effusion. | | | Airspace density at the left lung base, suggesting there may be some | | | associated left basilar atelectasis. No other areas of abnormal lung | | | density. Degenerative changes in both shoulders. No acute bony | | | abnormality. IMPRESSION - 1. Stable small left pleural effusion | | | and left basilar airspace density. Postop valve replacement. Stable | | | cardiomegaly. No acute abnormality. Dictated and Signed by: Kiel Mitchell | Paula Beltran MD Electronically signed: 05/07/2017 12:13 PM | | + + + + + | Procedure Note | + + | Radha, Rad Results In - 05/07/2017 12:16 PM PDT PORTABLE CHEST X-RAY: 05/07/2017 11:39 | | AMCLINICAL HISTORY:FALLCOMPARISON: 03/03/2017FINDINGS:Stable sternal wires and valve | | prosthesis. Chronic aortic archcalcification. No mediastinal widening. Pulmonary | | vasculature is mildlyprominent centrally. Stable mild cardiomegaly.Persistent small left | | pleural effusion. Airspace density at the left lung base,suggesting there may be some | | associated left basilar atelectasis. No other areasof abnormal lung density.Degenerative | | changes in both shoulders. No acute bony abnormality.IMPRESSION -1. Stable small left | | pleural effusion and left basilar airspace density. Postopvalve replacement. Stable | | cardiomegaly. No acute abnormality.Dictated and Signed by: Kiel Beltran MD | | Electronically signed: 05/07/2017 12:13 PM | |Persistent small left pleural effusion. Airspace density at the left lung base, | |suggesting there may be some associated left basilar atelectasis. No other areas | |of abnormal lung density. | | | |Degenerative changes in both shoulders. No acute bony abnormality. | | | |IMPRESSION - | |1. Stable small left pleural effusion and left basilar airspace density. Postop | |valve replacement. Stable cardiomegaly. No acute abnormality. | | | |Dictated and Signed by: Kiel Beltran MD | | Electronically signed: 05/07/2017 12:13 PM | + + + +---------+ + + | Performing | Address | City/State/Zipcode | Phone Number | | Organization | | | | + +---------+ + + | [facility] | | | | + +---------+ + + Troponin I (05/07/2017 11:35 AM PDT) + + + + + + | Component | Value | Ref Range | Performed | Pathologist | | | | | At | Signature | + + + + + + | Troponin I | 0.03Comment: Reference | <0.06 ng/mL | [facility] | | | | Ranges:0.00-0.06 = | | [facility] | | | | NORMAL>0.06 = | | MEDICAL | | | | SUSPICIOUS FOR | | CENTER - | | | | MYOCARDIAL DAMAGE NOTE: | | LABORATORY | | | | Values greater than 0.50 | | | | | | ng/mL have been shown | | | | | | to be strongly | | | | | | associated with acute | | | | | | myocardial infarction. | | | | | | The [employer] | | | | | | Cardiology (ACC) | | | | | | recommends a decision | | | | | | limit of 0.06 ng/mL for | | | | | | this assay. Results | | | | | | greater than 0.06 can | | | | | | reflect a pre-infarct | | | | | | acute coronary syndrome, | | | | | | but can also reflect | | | | | | myocardial necrosis or | | | | | | injury that is not due | | | | | | to coronary artery | | | | | | disease. Some of these | | | | | | causes are sepsis, | | | | | | hypocolemia, atrial | | | | | | fibrillation, heart | | | | | | failure, pulmonary | | | | | | embolism, myocarditis, | | | | | | myocardial contusion, | | | | | | and renal failure. The | | | | | | diagnosis of myocardial | | | | | | infarction should be | | | | | | based on a combination | | | | | | of the patient's | | | | | | clinical presentation | | | | | | and the clinical | | | | | | laboratory test results | | | | | | (especially serial | | | | | | troponin levels). | | | | + + + + + + + + | Specimen | + + | Blood | + + + + + + + | Performing | Address | City/State/Zipcode | Phone Number | | Organization | | | | + + + + + | [facility] | [address] | [place] | [phone] | | [facility] | | [address] | | | - LABORATORY | | | | + + + + + Protime INR (05/07/2017 11:35 AM PDT) + + + + + + | Component | Value | Ref Range | Performed | Pathologist | | | | | At | Signature | + + + + + + | Prothrombin | 18.6 (H) | 11.3 - 13.9 | [facility] | | | Time | | seconds | [facility] | | | | | MEDICAL | | | | | | CENTER - | | | | | | LABORATORY | | + + + + + + | INR | 1.51 (H)Comment: Usual | 0.90 - 1.10 | [facility] | | | | Oral Anticoagulation | | [facility] | | | | Range: 2.0 - | | MEDICAL | | | | 3.0High Level Oral | | CENTER - | | | | Anticoagulation Range: | | LABORATORY | | | | 2.5 - 3.5 | | | | + + + + + + + + | Specimen | + + | Blood | + + + + + + + | Performing | Address | City/State/Zipcode | Phone Number | | Organization | | | | + + + + + | [facility] | [address] | [place] | [phone] | | [facility] | | [address] | | | - LABORATORY | | | | + + + + + Basic Metabolic Panel (05/07/2017 11:35 AM PDT) + + + + + + | Component | Value | Ref Range | Performed | Pathologist | | | | | At | Signature | + + + + + + | Na | 143 | 136 - 149 | [facility] | | | | | mmol/L | [facility] | | | | | | MEDICAL | | | | | | CENTER - | | | | | | LABORATORY | | + + + + + + | K | 4.4 | 3.5 - 5.1 | [facility] | | | | | mmol/L | [facility] | | | | | | MEDICAL | | | | | | CENTER - | | | | | | LABORATORY | | + + + + + + | Cl | 112 (H) | 98 - 109 mmol/L | [facility] | | | | | | [facility] | | | | | | MEDICAL | | | | | | CENTER - | | | | | | LABORATORY | | + + + + + + | CO2 | 25 | 24 - 31 mmol/L | [facility] | | | | | | [facility] | | | | | | MEDICAL | | | | | | CENTER - | | | | | | LABORATORY | | + + + + + + | Anion Gap | 6 | 3 - 16 mmol/L | [facility] | | | | | | [facility] | | | | | | MEDICAL | | | | | | CENTER - | | | | | | LABORATORY | | + + + + + + | Glucose | 106 | 70 - 109 mg/dL | [facility] | | | | | | [facility] | | | | | | MEDICAL | | | | | | CENTER - | | | | | | LABORATORY | | + + + + + + | BUN | 34 (H) | 7 - 18 mg/dL | [facility] | | | | | | [facility] | | | | | | MEDICAL | | | | | | CENTER - | | | | | | LABORATORY | | + + + + + + | Creatinine | 1.29 | 0.60 - 1.30 | [facility] | | | | | mg/dL | [facility] | | | | | | MEDICAL | | | | | | CENTER - | | | | | | LABORATORY | | + + + + + + | eGFR if not | 53 (L)Comment: | >=60 | [facility] | | | | GLOMERULAR FILTRATION | mL/min/1.73m2 | [facility] | | | [facility]ELSH | RATE,ESTIMATED | | MEDICAL | | | | mL/min/1.56v3Tlps than | | CENTER - | | | | 60 Chronic kidney | | LABORATORY | | | | disease,if found over a | | | | | | 3-month period.Less than | | | | | | 15 Kidney failureFor | | | | | | | | | | | | Americans,multiply the | | | | | | calculated GFR by 1.21. | | | | | | | | | | + + + + + + | Calcium | 8.7 | 8.3 - 10.5 | [facility] | | | | | mg/dL | [facility] | | | | | | MEDICAL | | | | | | CENTER - | | | | | | LABORATORY | | + + + + + + | BUN/Creatin | 26.4 | | [facility] | | | ine Ratio | | | [facility] | | | | | | MEDICAL | | | | | | CENTER - | | | | | | LABORATORY | | + + + + + + + + | Specimen | + + | Blood | + + + + + + + | Performing | Address | City/State/Zipcode | Phone Number | | Organization | | | | + + + + + | [facility] | [address] | [place] | [phone] | | [facility] | | [address] | | | - LABORATORY | | | | + + + + + CBC no Differential (05/07/2017 11:35 AM PDT) + + + + + + | Component | Value | Ref Range | Performed | Pathologist | | | | | At | Signature | + + + + + + | White Blood | 6.4 | 4.0 - 11.0 K/uL | [facility] | | | Cells | | | [facility] | | | | | | MEDICAL | | | | | | CENTER - | | | | | | LABORATORY | | + + + + + + | Red Blood | 3.10 (L) | 4.30 - 5.70 | [facility] | | | Cells | | M/uL | [facility] | | | | | | MEDICAL | | | | | | CENTER - | | | | | | LABORATORY | | + + + + + + | Hemoglobin | 9.2 (L) | 13.5 - 18.0 | [facility] | | | | | g/dL | [facility] | | | | | | MEDICAL | | | | | | CENTER - | | | | | | LABORATORY | | + + + + + + | Hematocrit | 28.4 (L) | 40.0 - 51.0 % | [facility] | | | | | | [facility] | | | | | | MEDICAL | | | | | | CENTER - | | | | | | LABORATORY | | + + + + + + | MCV | 91.4 | 83.0 - 101.0 fL | [facility] | | | | | | [facility] | | | | | | MEDICAL | | | | | | CENTER - | | | | | | LABORATORY | | + + + + + + | MCH | 29.7 | 28.0 - 35.0 pg | [facility] | | | | | | [facility] | | | | | | MEDICAL | | | | | | CENTER - | | | | | | LABORATORY | | + + + + + + | MCHC | 32.5 | 32.0 - 36.0 | [facility] | | | | | g/dL | [facility] | | | | | | MEDICAL | | | | | | CENTER - | | | | | | LABORATORY | | + + + + + + | RDW-CV | 16.3 (H) | <15.0 % | [facility] | | | | | | [facility] | | | | | | MEDICAL | | | | | | CENTER - | | | | | | LABORATORY | | + + + + + + | Platelet | 170 | 140 - 440 K/uL | [facility] | | | Count | | | [facility] | | | | | | MEDICAL | | | | | | CENTER - | | | | | | LABORATORY | | + + + + + + | MPV | 8.2 | fL | [facility] | | | | | | [facility] | | | | | | MEDICAL | | | | | | CENTER - | | | | | | LABORATORY | | + + + + + + + + | Specimen | + + | Blood | + + + + + + + | Performing | Address | City/State/Zipcode | Phone Number | | Organization | | | | + + + + + | [facility] | [address] | [place] | [phone] | | 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) | + + | Coronary artery disease involving [place] heart without angina pectoris, unspecified | | vessel or lesion type | + + | Persistent atrial fibrillation (HCC) Atrial fibrillation | + + | 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 | + + | Diastolic CHF (HCC) Unspecified diastolic heart failure | + + | Pulmonary HTN (HCC) Other chronic pulmonary heart diseases | + + | Dementia (HCC) Dementia, unspecified, without behavioral disturbance | + + | Liver cirrhosis (HCC) Cirrhosis of liver without mention of alcohol | + + | H/O aortic valve replacement Heart valve replaced by other means | + + | Hypertension Unspecified essential hypertension | + + | Anemia Anemia, unspecified | + + | CRUZITO (obstructive sleep apnea) Obstructive sleep apnea (adult) (pediatric) | + + | Venous stasis of both lower extremities | + + | Remote Device Interrogation - Primary Fitting and adjustment of cardiac pacemaker | + + | Pacemaker Dual Chamber, MRI compatible, 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/17 [employer] Cardiac pacemaker | | in situ | + + | 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 Administered Medications + +--------+---------+------+------+------+ | Medication Order | MAR | Action | Dose | Rate | Site | | | Action | Date | | | | + +--------+---------+------+------+------+ + +---+ | acetaminophen (TYLENOL) tablet | | | 650 mg 650 mg, Oral, EVERY 6 | | | HOURS PRN, Pain, Fever, Starting | | | 05/14/17 at 0903, | | | Post-op/Phase II | | + +---+ | | | + +---+ + +-------+ +--------+---+---+ | albuterol 2.5 mg/3 mL nebulizer | Given | 05/08/20 | 2.5 mg | | | | solution 2.5 mg 2.5 mg, | | 17 10:39 | | | | | Nebulization, RT EVERY 4 HOURS | | AM PDT | | | | | PRN, Wheezing, Starting Tue | | | | | | | 05/07/17 at 1750, RT will | | | | | | | administer., | | | | | | + +-------+ +--------+---+---+ +---+---+ | | | +---+---+ + +-------+ +--------+---+---+ | albuterol 2.5 mg/3 mL nebulizer | Given | 05/13/20 | 2.5 mg | | | | solution 2.5 mg 2.5 mg, | | 17 9:07 | | | | | Nebulization, RT Q6H, First dose | | PM PDT | | | | | on Sat05/08/17 at 1515, RT will | | | | | | | administer., | | | | | | + +-------+ +--------+---+---+ +-------+ +--------+---+---+ | Given | 05/13/20 | 2.5 mg | | | | | 17 2:17 | | | | | | PM PDT | | | | +-------+ +--------+---+---+ | Given | 05/13/20 | 2.5 mg | | | | | 17 9:14 | | | | | | AM PDT | | | | +-------+ +--------+---+---+ +---+---+ | | | +---+---+ + +-------+ +--------+---+---+ | albuterol 2.5 mg/3 mL nebulizer | Given | 05/16/20 | 2.5 mg | | | | solution 2.5 mg 2.5 mg, | | 17 3:10 | | | | | Nebulization, RT Q12H, First dose | | AM PDT | | | | | on Sat05/14/17 at 0300, RT will | | | | | | | administer., | | | | | | + +-------+ +--------+---+---+ +-------+ +--------+---+---+ | Given | 05/15/20 | 2.5 mg | | | | | 17 2:39 | | | | | | PM PDT | | | | +-------+ +--------+---+---+ | Given | 05/15/20 | 2.5 mg | | | | | 17 3:51 | | | | | | AM PDT | | | | +-------+ +--------+---+---+ +---+---+ | | | +---+---+ + +-------+ +--------+---+---+ | albuterol 5 mg/mL concentrated | Given | 05/16/20 | 2.5 mg | | | | nebulizer solution 2.5 mg 2.5 | | 17 9:22 | | | | | mg, Nebulization, RT BID, First | | AM PDT | | | | | dose on Sat05/14/17 at 0900, RT | | | | | | | will administer., | | | | | | + +-------+ +--------+---+---+ +-------+ +--------+---+---+ | Given | 05/15/20 | 2.5 mg | | | | | 17 9:04 | | | | | | PM PDT | | | | +-------+ +--------+---+---+ | Given | 05/15/20 | 2.5 mg | | | | | 17 8:40 | | | | | | AM PDT | | | | +-------+ +--------+---+---+ +---+---+ | | | +---+---+ + +---------+ + +-------+---+ | amiodarone (CORDARONE) 1.8 | New Bag | 05/10/20 | 1 mg/min | 33.3 | | | mg/mL in dextrose 5% 500 mL | | 17 3:22 | | mL/hr | | | infusion 1 mg/min (33.3333 | | PM PDT | | | | | mL/hr, rounded to 33.3 mL/hr), at | | | | | | | 33.3 mL/hr, Intravenous, | | | | | | | TITRATED, Starting Sat05/10/17 at | | | | | | | 1430, For 6 hours, Use 0.22 | | | | | | | micron filter for | | | | | | | administration., | | | | | | + +---------+ + +-------+---+ + +---+ | | | + +---+ | amiodarone (PACERONE) tablet | | | 200 mg 200 mg, Oral, DAILY, | | | First dose on Sat05/21/17 at 0900, | | | Starting on May 21, 2017., | | + +---+ | | | + +---+ + +-------+ +--------+---+---+ | amiodarone (PACERONE) tablet | Given | 05/16/20 | 400 mg | | | | 400 mg 400 mg, Oral, 2 TIMES | | 17 8:36 | | | | | DAILY, First dose on Sat05/14/17 | | AM PDT | | | | | at 0915, For 7 days, For 7 days., | | | | | | | | | | | | | + +-------+ +--------+---+---+ +-------+ +--------+---+---+ | Given | 05/15/20 | 400 mg | | | | | 17 8:31 | | | | | | PM PDT | | | | +-------+ +--------+---+---+ | Given | 05/15/20 | 400 mg | | | | | 17 8:13 | | | | | | AM PDT | | | | +-------+ +--------+---+---+ +---+---+ | | | +---+---+ + +-------+ +--------+-------+---+ | amiodarone in dextrose | Given | 05/10/20 | 150 mg | 600 | | | (NEXTERONE) 150 mg/100 mL bolus | | 17 2:29 | | mL/hr | | | 150 mg 150 mg, Intravenous, | | PM PDT | | | | | Administer over 10 Minutes, ONCE, | | | | | | | 05/10/17 at 1430, For 1 dose, | | | | | | | For Rhythm Control, | | | | | | + +-------+ +--------+-------+---+ +---+---+ | | | +---+---+ + +-------+ +-------+---+---+ | atorvaSTATin (LIPITOR) tablet | Given | 05/07/20 | 10 mg | | | | 10 mg 10 mg, Oral, NIGHTLY, | | 17 9:02 | | | | | First dose on Sat05/07/17 at | | PM PDT | | | | | 2100, Recovery/Phase I | | | | | | + +-------+ +-------+---+---+ +---+---+ | | | +---+---+ + +-------+ +-------+---+---+ | atorvaSTATin (LIPITOR) tablet | Given | 05/15/20 | 10 mg | | | | 10 mg 10 mg, Oral, NIGHTLY, | | 17 8:35 | | | | | First dose on Sat05/08/17 at 2100 | | PM PDT | | | | + +-------+ +-------+---+---+ +-------+ +-------+---+---+ | Given | 05/14/20 | 10 mg | | | | | 17 8:30 | | | | | | PM PDT | | | | +-------+ +-------+---+---+ | Given | 05/13/20 | 10 mg | | | | | 17 9:26 | | | | | | PM PDT | | | | +-------+ +-------+---+---+ +---+---+ | | | +---+---+ + +-------+ +------+---+---+ | atropine 0.1 mg/mL syringe 1 mg | Given | 05/10/20 | 1 mg | | | | 1 mg, Intravenous, ONCE, Sat | | 17 6:27 | | | | | 05/10/17 at 1930, For 1 dose | | PM PDT | | | | + +-------+ +------+---+---+ +---+---+ | | | +---+---+ + +-------+ +--------+---+---+ | benzonatate (TESSALON) capsule | Given | 05/15/20 | 100 mg | | | | 100 mg 100 mg, Oral, 3 TIMES | | 17 8:12 | | | | | DAILY, First dose on Sat05/08/17 | | AM PDT | | | | | at 1445, Swallow capsule whole. | | | | | | | Do not chew or crush., | | | | | | + +-------+ +--------+---+---+ +-------+ +--------+---+---+ | Given | 05/14/20 | 100 mg | | | | | 17 2:16 | | | | | | PM PDT | | | | +-------+ +--------+---+---+ | Given | 05/14/20 | 100 mg | | | | | 17 9:21 | | | | | | AM PDT | | | | +-------+ +--------+---+---+ +---+---+ | | | +---+---+ + +-------+ +--------+---+---+ | budesonide (PULMICORT) 0.5 mg/2 | Given | 05/16/20 | 0.5 mg | | | | mL nebulizer solution 0.5 mg | | 17 9:21 | | | | | 0.5 mg, Nebulization, RT BID, | | AM PDT | | | | | First dose on Sat05/07/17 at | | | | | | | 2100, RT will administer. Shake | | | | | | | well. Protect from light. Rinse | | | | | | | mouth after use., | | | | | | + +-------+ +--------+---+---+ +-------+ +--------+---+---+ | Given | 05/15/20 | 0.5 mg | | | | | 17 9:04 | | | | | | PM PDT | | | | +-------+ +--------+---+---+ | Given | 05/15/20 | 0.5 mg | | | | | 17 8:40 | | | | | | AM PDT | | | | +-------+ +--------+---+---+ +---+---+ | | | +---+---+ + +---------+ +-----+-------+---+ | ceFAZolin in saline (ANCEF) | New Bag | 05/14/20 | 2 g | 100 | | | IVPB 2 g 2 g, Intravenous, | | 17 2:16 | | mL/hr | | | Administer over 30 Minutes, EVERY | | PM PDT | | | | | 8 HOURS INTERVAL, First dose on | | | | | | | Sat05/14/17 at 0645, For 2 doses, | | | | | | | Keep in refrigerator., | | | | | | | Post-op/Phase II, Indications: | | | | | | | Surgical Prophylaxis | | | | | | + +---------+ +-----+-------+---+ +---------+ +-----+-------+---+ | New Bag | 05/14/20 | 2 g | 100 | | | | 17 7:08 | | mL/hr | | | | AM PDT | | | | +---------+ +-----+-------+---+ +---+---+ | | | +---+---+ + +---------+ +-----+-------+---+ | cefTRIAXone (ROCEPHIN) 1 g in | New Bag | 05/08/20 | 1 g | 100 | | | sodium chloride 0.9% 50 mL IVPB | | 17 11:13 | | mL/hr | | | 1 g, Intravenous, Administer over | | AM PDT | | | | | 30 Minutes, EVERY 24 HOURS | | | | | | | (Daily), First dose on Sat | | | | | | | 05/07/17 at 1730, Activate system | | | | | | | and mix before use., Indications: | | | | | | | Cirrhosis and GI bleeding, | | | | | | | possible varices | | | | | | + +---------+ +-----+-------+---+ +---------+ +-----+-------+---+ | New Bag | 05/07/20 | 1 g | 100 | | | | 17 6:43 | | mL/hr | | | | PM PDT | | | | +---------+ +-----+-------+---+ +---+---+ | | | +---+---+ + +-------+ +--------+---+---+ | docusate calcium (SURFAK) | Given | 05/09/20 | 240 mg | | | | capsule 240 mg 240 mg, Oral, | | 17 8:58 | | | | | TIMES DAILY, First dose on Sat | | AM PDT | | | | | 05/08/17 at 1445 | | | | | | + +-------+ +--------+---+---+ +-------+ +--------+---+---+ | Given | 05/08/20 | 240 mg | | | | | 17 3:25 | | | | | | PM PDT | | | | +-------+ +--------+---+---+ +---+---+ | | | +---+---+ + +-------+ +--------+---+---+ | docusate sodium (COLACE) | Given | 05/07/20 | 300 mg | | | | capsule 300 mg 300 mg (rounded | | 17 9:02 | | | | | from 250 mg), Oral, 2 TIMES | | PM PDT | | | | | DAILY, First dose on Sat05/07/17 | | | | | | | at 2100, Recovery/Phase I | | | | | | + +-------+ +--------+---+---+ +---+---+ | | | +---+---+ + +-------+ + +---+---+ | docusate-senna (SENOKOT-S) | Given | 05/16/20 | 1 tablet | | | | 50-8.6 mg per tablet 2 tablet 2 | | 17 8:39 | | | | | tablet, Oral, 2 TIMES DAILY, | | AM PDT | | | | | First dose on Rachna 7/20/17 at 2100 | | | | | | + +-------+ + +---+---+ +-------+ +---------+---+---+ | Given | 05/15/20 | 2 | | | | | 17 8:35 | tablets | | | | | PM PDT | | | | +-------+ +---------+---+---+ | Given | 05/15/20 | 2 | | | | | 17 8:13 | tablets | | | | | AM PDT | | | | +-------+ +---------+---+---+ +---+---+ | | | +---+---+ + +-------+ +---+---+---+ | donepezil (ARICEPT) tablet 5 mg | Given | 05/15/20 | | | | | 5 mg, Oral, NIGHTLY, First dose | | 17 8:32 | | | | | on 05/08/17 at 2100 | | PM PDT | | | | + +-------+ +---+---+---+ +-------+ +------+---+---+ | Given | 05/14/20 | 5 mg | | | | | 17 8:31 | | | | | | PM PDT | | | | +-------+ +------+---+---+ | Given | 05/13/20 | 5 mg | | | | | 17 9:26 | | | | | | PM PDT | | | | +-------+ +------+---+---+ +---+---+ | | | +---+---+ + + + + +-------+---+ | DOPamine in dextrose 1,600 | Rate/Dos | 05/11/20 | 5 | 19.8 | | | mcg/mL infusion 2-20 mcg/kg/min | e Change | 17 11:47 | mcg/kg/m | mL/hr | | | | | PM PDT | in | | | | 105.4 kg (7.905-79.05 mL/hr, | | | | | | | rounded to 7.9-79.1 mL/hr), at | | | | | | | 7.9-79.1 mL/hr, Intravenous, | | | | | | | TITRATED, Starting 05/10/17 at | | | | | | | 1930 | | | | | | + + + + +-------+---+ + + + +-------+---+ | New Bag | 05/11/20 | 7.5 | 29.6 | | | | 17 10:28 | mcg/kg/m | mL/hr | | | | PM PDT | in | | | + + + +-------+---+ | Rate/Dose Change | 05/11/20 | 7.5 | 29.6 | | | | 17 10:15 | mcg/kg/m | mL/hr | | | | PM PDT | in | | | + + + +-------+---+ +---+---+ | | | +---+---+ + +-------+ +--------+---+ + | enoxaparin (LOVENOX) 100 mg/mL | Given | 05/10/20 | 100 mg | | Abdomen- | | injection 100 mg 100 mg (rounded | | 17 9:11 | | | RUQ | | from 104.3 mg = 1 mg/kg | | AM PDT | | | | | 104.3 kg), Subcutaneous, EVERY | | | | | | | 12 HOURS (2 times per day), First | | | | | | | dose on Sat05/08/17 at 2100 | | | | | | + +-------+ +--------+---+ + +-------+ +--------+---+ + | Given | 05/09/20 | 100 mg | | Abdomen- | | | 17 8:25 | | | LLQ | | | PM PDT | | | | +-------+ +--------+---+ + | Given | 05/09/20 | 100 mg | | Abdomen- | | | 17 8:58 | | | LLQ | | | AM PDT | | | | +-------+ +--------+---+ + +---+---+ | | | +---+---+ + +-------+ +-------+---+---+ | fenofibrate (LOFIBRA) tablet 54 | Given | 05/13/20 | 54 mg | | | | mg 54 mg, Oral, DAILY, First | | 17 8:38 | | | | | dose on Sat05/08/17 at 1445 | | AM PDT | | | | + +-------+ +-------+---+---+ +-------+ +-------+---+---+ | Given | 05/12/20 | 54 mg | | | | | 17 10:12 | | | | | | AM PDT | | | | +-------+ +-------+---+---+ | Given | 05/11/20 | 54 mg | | | | | 17 9:30 | | | | | | AM PDT | | | | +-------+ +-------+---+---+ +---+---+ | | | +---+---+ + +-------+ +--------+---+---+ | ferrous sulfate tablet 325 mg | Given | 05/16/20 | 325 mg | | | | 325 mg, Oral, DAILY WITH | | 17 8:38 | | | | | BREAKFAST, First dose on Mon | | AM PDT | | | | | 05/13/17 at 0830 | | | | | | + +-------+ +--------+---+---+ +-------+ +--------+---+---+ | Given | 05/15/20 | 325 mg | | | | | 17 8:12 | | | | | | AM PDT | | | | +-------+ +--------+---+---+ | Given | 05/13/20 | 325 mg | | | | | 17 9:21 | | | | | | AM PDT | | | | +-------+ +--------+---+---+ +---+---+ | | | +---+---+ + +-------+ +-------+---+---+ | furosemide (LASIX) injection 40 | Given | 05/07/20 | 40 mg | | | | mg 40 mg, Intravenous, ONCE, | | 17 5:53 | | | | | 05/07/17 at 1730, For 1 dose | | PM PDT | | | | + +-------+ +-------+---+---+ +---+---+ | | | +---+---+ + +-------+ +-------+---+---+ | furosemide (LASIX) injection 40 | Given | 05/08/20 | 40 mg | | | | mg 40 mg, Intravenous, ONCE, | | 17 8:30 | | | | | 05/08/17 at 1915, For 1 dose | | PM PDT | | | | + +-------+ +-------+---+---+ +---+---+ | | | +---+---+ + +-------+ +-------+---+---+ | furosemide (LASIX) injection 40 | Given | 05/14/20 | 40 mg | | | | mg 40 mg, Intravenous, DAILY, | | 17 9:20 | | | | | First dose on Sat05/13/17 at 1045 | | AM PDT | | | | + +-------+ +-------+---+---+ +-------+ +-------+---+---+ | Given | 05/13/20 | 40 mg | | | | | 17 11:58 | | | | | | AM PDT | | | | +-------+ +-------+---+---+ +---+---+ | | | +---+---+ + +-------+ +-------+---+---+ | furosemide (LASIX) tablet 40 mg | Given | 05/16/20 | 40 mg | | | | 40 mg, Oral, 2 TIMES DAILY 0800 | | 17 8:38 | | | | | & 1600, First dose on Wed | | AM PDT | | | | | 05/15/17 at 0800, Twice a day | | | | | | | dosing (8 and 12)., | | | | | | + +-------+ +-------+---+---+ +-------+ +-------+---+---+ | Given | 05/15/20 | 40 mg | | | | | 17 3:16 | | | | | | PM PDT | | | | +-------+ +-------+---+---+ | Given | 05/15/20 | 40 mg | | | | | 17 8:11 | | | | | | AM PDT | | | | +-------+ +-------+---+---+ +---+---+ | | | +---+---+ + +-------+ + +---+---+ | HYDROcodone-acetaminophen | Given | 05/12/20 | 1 tablet | | | | (NORCO) 5-325 mg per tablet 1 | | 17 11:11 | | | | | tablet 1 tablet, Oral, 3 TIMES | | AM PDT | | | | | DAILY PRN, Pain, Starting Tue | | | | | | | 05/07/17 at 2022 | | | | | | + +-------+ + +---+---+ +-------+ + +---+---+ | Given | 05/11/20 | 1 tablet | | | | | 17 6:38 | | | | | | PM PDT | | | | +-------+ + +---+---+ | Given | 05/10/20 | 1 tablet | | | | | 17 9:26 | | | | | | PM PDT | | | | +-------+ + +---+---+ +---+---+ | | | +---+---+ + +-------+ +---+---+---+ | hydrocortisone 1% cream | Given | 05/15/20 | | | | | Topical, 2 TIMES DAILY, First | | 17 8:35 | | | | | dose on Sat05/08/17 at 1445 | | PM PDT | | | | + +-------+ +---+---+---+ +-------+ +---+---+ + | Given | 05/15/20 | | | | | | 17 8:14 | | | | | | AM PDT | | | | +-------+ +---+---+ + | Given | 05/14/20 | | | Other | | | 17 8:29 | | | (Comment | | | PM PDT | | | ) | +-------+ +---+---+ + +---+---+ | | | +---+---+ + +-------+ +--------+---+---+ | HYDROmorphone (DILAUDID) | Given | 05/07/20 | 0.5 mg | | | | injection 0.5 mg 0.5 mg, | | 17 12:13 | | | | | Intravenous, EVERY 15 MIN PRN, | | PM PDT | | | | | Pain, Starting 05/07/17 at | | | | | | | 1208, For 4 doses | | | | | | + +-------+ +--------+---+---+ +---+---+ | | | +---+---+ + +-------+ +---+---+---+ | lidocaine (XYLOCAINE) 2% jelly | Given | 05/11/20 | | | | | (uro-jet) Urethral, ONCE, Sat | | 17 6:27 | | | | | 05/11/17 at 0645, For 1 dose | | AM PDT | | | | + +-------+ +---+---+---+ +---+---+ | | | +---+---+ + +-------+ +--------+---+---+ | lisinopril (PRINIVIL, ZESTRIL) | Given | 05/13/20 | 2.5 mg | | | | tablet 2.5 mg 2.5 mg, Oral, | | 17 8:41 | | | | | DAILY, First dose (after last | | AM PDT | | | | | modification) on 05/13/17 at | | | | | | | 0900 | | | | | | + +-------+ +--------+---+---+ +---+---+ | | | +---+---+ + +-------+ +------+---+---+ | lisinopril (PRINIVIL, ZESTRIL) | Given | 05/12/20 | 5 mg | | | | tablet 5 mg 5 mg, Oral, DAILY, | | 17 10:13 | | | | | First dose (after last | | AM PDT | | | | | modification) on Rachna 05/09/17 at | | | | | | | 0900 | | | | | | + +-------+ +------+---+---+ +-------+ +------+---+---+ | Given | 05/11/20 | 5 mg | | | | | 17 9:30 | | | | | | AM PDT | | | | +-------+ +------+---+---+ | Given | 05/10/20 | 5 mg | | | | | 17 9:10 | | | | | | AM PDT | | | | +-------+ +------+---+---+ +---+---+ | | | +---+---+ + +-------+ +--------+---+---+ | metOLazone (ZAROXOLYN) tablet | Given | 05/12/20 | 2.5 mg | | | | 2.5 mg 2.5 mg, Oral, DAILY, | | 17 10:13 | | | | | First dose on Sat05/08/17 at 1445 | | AM PDT | | | | + +-------+ +--------+---+---+ +-------+ +--------+---+---+ | Given | 05/11/20 | 2.5 mg | | | | | 17 9:30 | | | | | | AM PDT | | | | +-------+ +--------+---+---+ | Given | 05/10/20 | 2.5 mg | | | | | 17 9:11 | | | | | | AM PDT | | | | +-------+ +--------+---+---+ +---+---+ | | | +---+---+ + +-------+ +--------+---+---+ | metOLazone (ZAROXOLYN) tablet | Given | 05/13/20 | 2.5 mg | | | | 2.5 mg 2.5 mg, Oral, EVERY OTHER | | 17 9:23 | | | | | DAY, First dose (after last | | AM PDT | | | | | modification) on Sat05/13/17 at | | | | | | | 0900 | | | | | | + +-------+ +--------+---+---+ +---+---+ | | | +---+---+ + +-------+ +-------+---+---+ | metoprolol succinate | Given | 05/16/20 | 25 mg | | | | (TOPROL-XL) ER tablet 25 mg 25 | | 17 8:39 | | | | | mg, Oral, DAILY, First dose on | | AM PDT | | | | | 05/13/17 at 0900, Tablet may | | | | | | | be cut where scored but do not | | | | | | | crush., | | | | | | + +-------+ +-------+---+---+ +-------+ +-------+---+---+ | Given | 05/15/20 | 25 mg | | | | | 17 8:13 | | | | | | AM PDT | | | | +-------+ +-------+---+---+ | Given | 05/14/20 | 25 mg | | | | | 17 9:21 | | | | | | AM PDT | | | | +-------+ +-------+---+---+ +---+---+ | | | +---+---+ + +-------+ +-------+---+---+ | metoprolol succinate | Given | 05/10/20 | 50 mg | | | | (TOPROL-XL) ER tablet 50 mg 50 | | 17 9:10 | | | | | mg, Oral, DAILY, First dose on | | AM PDT | | | | | 05/08/17 at 1445, Tablet may | | | | | | | be cut where scored but do not | | | | | | | crush., | | | | | | + +-------+ +-------+---+---+ +-------+ +-------+---+---+ | Given | 05/09/20 | 50 mg | | | | | 17 8:57 | | | | | | AM PDT | | | | +-------+ +-------+---+---+ | Given | 05/08/20 | 50 mg | | | | | 17 2:42 | | | | | | PM PDT | | | | +-------+ +-------+---+---+ + +---+ | | | + +---+ | metoprolol tartrate (LOPRESSOR) | | | 1 mg/mL injection Starting Wed | | | 05/08/17 at 1508, For 1 dose, | | | MARTHA REYNOLDS: dara | | | bhaktiide, | | + +---+ | | | + +---+ + +-------+ +------+---+---+ | metoprolol tartrate (LOPRESSOR) | Given | 05/08/20 | 5 mg | | | | injection 5 mg 5 mg, | | 17 3:13 | | | | | Intravenous, ONCE, Sat05/08/17 at | | PM PDT | | | | | 1515, For 1 dose | | | | | | + +-------+ +------+---+---+ +---+---+ | | | +---+---+ + +-------+ +---------+---+---+ | metoprolol tartrate (LOPRESSOR) | Given | 05/10/20 | 12.5 mg | | | | tablet 12.5 mg 12.5 mg, Oral, | | 17 1:25 | | | | | ONCE, Sat05/10/17 at 0130, For 1 | | AM PDT | | | | | dose | | | | | | + +-------+ +---------+---+---+ + +---+ | | | + +---+ | norepinephrine in NS (LEVOPHED) | | | 16 mcg/mL infusion Starting Sat | | | 05/10/17 at 1843, For 1 dose, | | | MAGUI MCINTOSH: dara | | | override, | | + +---+ | | | + +---+ + + + +---------+-------+---+ | norepinephrine in NS (LEVOPHED) | Rate/Dos | 05/11/20 | 1 | 3.8 | | | 16 mcg/mL infusion 1-30 mcg/min | e Change | 17 9:53 | mcg/min | mL/hr | | | (3.75-112.5 mL/hr, rounded to | | PM PDT | | | | | 3.8-112.5 mL/hr), at 3.8-112.5 | | | | | | | mL/hr, Intravenous, TITRATED, | | | | | | | Starting 05/10/17 at 1930, | | | | | | | Initial dose: 3 mcg/min, Goal: | | | | | | | SBP greater than 90 | | | | | | + + + +---------+-------+---+ + + +---------+ +---+ | Restarted | 05/11/20 | 3 | 11.3 | | | | 17 9:04 | mcg/min | mL/hr | | | | PM PDT | | | | + + +---------+ +---+ | New Bag | 05/10/20 | 4 | 15 mL/hr | | | | 17 6:41 | mcg/min | | | | | PM PDT | | | | + + +---------+ +---+ +---+---+ | | | +---+---+ + + + +--------+-------+---+ | octreotide (sandoSTATIN) 4 | Continue | 05/08/20 | 50 | 12.5 | | | mcg/mL in sodium chloride 0.9% | bag | 17 1:03 | mcg/hr | mL/hr | | | 250 mL infusion 50 mcg/hr (12.5 | from | PM PDT | | | | | mL/hr), at 12.5 mL/hr, | transfer | | | | | | Intravenous, CONTINUOUS, Starting | | | | | | | e 05/07/17 at 1730 | | | | | | + + + +--------+-------+---+ +---------+ +--------+-------+---+ | New Bag | 05/07/20 | 50 | 12.5 | | | | 17 8:11 | mcg/hr | mL/hr | | | | PM PDT | | | | +---------+ +--------+-------+---+ +---+---+ | | | +---+---+ + +-------+ +--------+-------+---+ | octreotide (sandoSTATIN) 50 mcg | Given | 05/07/20 | 50 mcg | 303 | | | in sodium chloride 0.9% 50 mL | | 17 7:53 | | mL/hr | | | bolus 50 mcg, Intravenous, | | PM PDT | | | | | Administer over 10 Minutes, ONCE, | | | | | | | [facility] 05/07/17 at 1730, For 1 dose | | | | | | + +-------+ +--------+-------+---+ +---+---+ | | | +---+---+ + +-------+ +------+---+---+ | ondansetron (ZOFRAN) injection | Given | 05/07/20 | 4 mg | | | | 4 mg 4 mg, Intravenous, ONCE, | | 17 12:14 | | | | | 05/07/17 at 1210, For 1 dose | | PM PDT | | | | + +-------+ +------+---+---+ +---+---+ | | | +---+---+ + +-------+ +------+---+---+ | ondansetron (ZOFRAN) injection | Given | 05/10/20 | 4 mg | | | | 4 mg 4 mg, Intravenous, EVERY 6 | | 17 9:26 | | | | | HOURS PRN, Nausea, Vomiting, | | PM PDT | | | | | Starting 05/10/17 at 2046 | | | | | | + +-------+ +------+---+---+ + +---+ | | | + +---+ | ondansetron (ZOFRAN) injection | | | 4-8 mg 4-8 mg, Intravenous, | | | EVERY 6 HOURS PRN, Nausea, | | | Vomiting, Starting 05/14/17 at | | | 0903, Post-op/Phase II | | + +---+ | | | + +---+ + +-------+ +------+---+---+ | oxyCODONE (ROXICODONE) tablet | Given | 05/15/20 | 5 mg | | | | 5-10 mg 5-10 mg, Oral, EVERY 4 | | 17 3:16 | | | | | HOURS PRN, Pain, Starting Tue | | PM PDT | | | | | 05/14/17 at 0903, Post-op/Phase II | | | | | | + +-------+ +------+---+---+ +-------+ +------+---+---+ | Given | 05/15/20 | 5 mg | | | | | 17 9:54 | | | | | | AM PDT | | | | +-------+ +------+---+---+ | Given | 05/15/20 | 5 mg | | | | | 17 8:11 | | | | | | AM PDT | | | | +-------+ +------+---+---+ +---+---+ | | | +---+---+ + +-------+ +-------+---+---+ | pantoprazole (PROTONIX) | Given | 05/07/20 | 40 mg | | | | injection 40 mg 40 mg, | | 17 12:58 | | | | | Intravenous, ONCE, 05/07/17 at | | PM PDT | | | | | 1250, For 1 dose, If | | | | | | | reconstituting, mix each 40 mg | | | | | | | vial with 10 mL NS to make 4 | | | | | | | mg/mL., | | | | | | + +-------+ +-------+---+---+ +---+---+ | | | +---+---+ + +---------+ +--------+-------+---+ | sodium chloride 0.9% (NS) bolus | New Bag | 05/07/20 | 1,000 | 2000 | | | 1,000 mL 1,000 mL, Intravenous, | | 17 12:14 | mLs | mL/hr | | | Administer over 30 Minutes, | | PM PDT | | | | | ONCE, 05/07/17 at 1125, For 1 | | | | | | | dose | | | | | | + +---------+ +--------+-------+---+ +---+---+ | | | +---+---+ + +---------+ +---+ +---+ | sodium chloride 0.9% (NS) | New Bag | 05/07/20 | | 50 mL/hr | | | infusion at 50 mL/hr, | | 17 5:52 | | | | | Intravenous, CONTINUOUS, Starting | | PM PDT | | | | | 05/07/17 at 1730 | | | | | | + +---------+ +---+ +---+ +---+---+ | | | +---+---+ + +---------+ +---+-------+---+ | sodium chloride 0.9% (NS) | New Bag | 05/14/20 | | 125 | | | infusion at 125 mL/hr, | | 17 12:50 | | mL/hr | | | Intravenous, CONTINUOUS, Starting | | AM PDT | | | | | 05/14/17 at 0100, For | | | | | | | procedure only, not to exceed 1 | | | | | | | liter., Pre-op | | | | | | + +---------+ +---+-------+---+ +---+---+ | | | +---+---+ + +---------+ +---+-------+---+ | sodium chloride 0.9% (NS) | New Bag | 05/14/20 | | 125 | | | infusion at 125 mL/hr, | | 17 1:00 | | mL/hr | | | Intravenous, CONTINUOUS, Starting | | AM PDT | | | | | 05/14/17 at 0215, For 8 | | | | | | | hours, For procedure only, not to | | | | | | | exceed 1 liter., Pre-op | | | | | | + +---------+ +---+-------+---+ +---+---+ | | | +---+---+ + +-------+ +---------+---+---+ | spironolactone (ALDACTONE) | Given | 05/12/20 | 12.5 mg | | | | tablet 12.5 mg 12.5 mg, Oral, | | 17 10:23 | | | | | DAILY, First dose on Sat05/07/17 | | AM PDT | | | | | at 1730, Hazardous: Use | | | | | | | appropriate handling | | | | | | | precautions., | | | | | | + +-------+ +---------+---+---+ +-------+ +---------+---+---+ | Given | 05/11/20 | 12.5 mg | | | | | 17 10:01 | | | | | | AM PDT | | | | +-------+ +---------+---+---+ | Given | 05/10/20 | 12.5 mg | | | | | 17 9:15 | | | | | | AM PDT | | | | +-------+ +---------+---+---+ +---+---+ | | | +---+---+ + +-------+ +--------+---+---+ | tamsulosin (FLOMAX) capsule 0.4 | Given | 05/07/20 | 0.4 mg | | | | mg 0.4 mg, Oral, 2 TIMES DAILY, | | 17 9:03 | | | | | First dose on Sat05/07/17 at | | PM PDT | | | | | 2100, Do not open capsule., | | | | | | | Recovery/Phase I | | | | | | + +-------+ +--------+---+---+ +---+---+ | | | +---+---+ + +-------+ +--------+---+---+ | warfarin (COUMADIN) tablet 2.5 | Given | 05/15/20 | 2.5 mg | | | | mg 2.5 mg, Oral, Daily - | | 17 7:11 | | | | | Warfarin, First dose on Sat | | PM PDT | | | | | 05/14/17 at 1800, Reproductive | | | | | | | Risk: Use appropriate handling | | | | | | | precautions. Drug education | | | | | | | required., | | | | | | + +-------+ +--------+---+---+ +-------+ +--------+---+---+ | Given | 05/14/20 | 2.5 mg | | | | | 17 5:52 | | | | | | PM PDT | | | | +-------+ +--------+---+---+ +---+---+ | | | +---+---+ + +-------+ +------+---+---+ | warfarin (COUMADIN) tablet 3 mg | Given | 05/08/20 | 3 mg | | | | 3 mg, Oral, EVERY 7 DAYS, First | | 17 5:21 | | | | | dose on Sat05/08/17 at 1800, | | PM PDT | | | | | Reproductive Risk: Use | | | | | | | appropriate handling precautions. | | | | | | | Drug education required., | | | | | | + +-------+ +------+---+---+ +---+---+ | | | +---+---+ + +-------+ +------+---+---+ | warfarin (COUMADIN) tablet 4 mg | Given | 05/10/20 | 4 mg | | | | 4 mg, Oral, Daily - Warfarin, | | 17 5:17 | | | | | First dose (after last | | PM PDT | | | | | modification) on [place]ach[place] 05/09/17 at | | | | | | | 1800, Reproductive Risk: Use | | | | | | | appropriate handling precautions. | | | | | | | Drug education required., | | | | | | + +-------+ +------+---+---+ +-------+ +------+---+---+ | Given | 05/09/20 | 4 mg | | | | | 17 6:34 | | | | | | PM PDT | | | | +-------+ +------+---+---+ + +---+ | | | + +---+ | warfarin per pharmacy PHARMACY | | | CONSULT, Starting 05/14/17 at | | | 1606, What is the goal INR range | | | for this patient? 2-3 | | + +---+ | | | + +---+ documented in this encounter
--- OUTSIDE RECORDS SUMMARY | ~2020-04-29 | XMS | Encounter Summary ---
Demographics + + + | Address | [address] | | | [place] [address] | + + + | Home Phone | | + + + | Preferred Language | Unknown | + + + | Marital Status | | + + + | Hindu Affiliation | 1061 | + + + | Race | Unknown | + + + | Ethnic Group | Unknown | + + + Author + + + | Author | [facility] | | | and [place] | + + + | Organization | [facility] | | | and [place] | + + + | Address | Unknown | + + + | Phone | Unavailable | + + + Support + + +---------+ + | Name | Relationship | Address | Phone | + + +---------+ + | Johnny Siddiqi Jr. | ECON | Unknown | [...] Team Providers + +------+ + | Care Stores Despatch Hand Name | Role | Phone | + +------+ + | Antonio Paulino MD | PCP | | + +------+ + Reason for Visit + + + | Reason | Comments | + + + | Device Check | | | (Remote) | | + + + Encounter Details +--------+ + + + + | Date | Type | Department | Care Team | Description | +--------+ + + + + | 04/19/ | Implant | [facility] | Cruzito Bird, | Remote Device | | 2020 | Monitor | CARDIOLOGY [address] [place] | Interrogation | | | | [place], | [place], | (Primary Dx); | | | | [place] [address] | [place] [address] | Pacemaker Dual | | | | [phone] | [phone] | Chamber, MRI | | | | | | compatible, 05/14/17 | | | | | | [facility]; | | | | | | 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) | +--------+ + + + + Social History + +-------+ +--------+------+ | Tobacco Use | Types | Packs/Day | Years | Date | | | | | Used | | + +-------+ +--------+------+ | Never Smoker | | | | | + +-------+ +--------+------+ + +---+---+---+ | Smokeless Tobacco: | | | | | Never Used | | | | + +---+---+---+ + + +---------+ + | Alcohol Use | Drinks/Week | oz/Week | Comments | + + +---------+ + | No | | | Alcoholic | | | | | Drinks/day: h/o | | | | | alcohol abuse, quit | | | | | 1968 | + + +---------+ + + + + | Sex Assigned at | Date Recorded | | | | + + + | Not on file | | + + + documented as of this encounter Functional Status + + + [...] + + documented as of this encounter Procedure Notes Cruzito Bird MD - 04/19/2020 11:59 PM PDTAssociated Order(s): DEVICE INTERROGATION- R EMOTEProcedure(s): DEVICE INTERROGATION- REMOTEPre-Procedure Diagnose(s): Pacemaker reprogra mming/check; Pacemaker; Tachycardia-bradycardia syndrome (HCC)Date of Remote Interrogation: 01/27/2020 Refer to [facility] documentation and remote PDF scanned into [facility] for remote interrogation re sults. Data collected by Nancy Dougherty RN Presenting rhythm: sinus rhythm atrial paced ventricular sensed between 64-67 beats. 0 mode switch episodes accounting for 0% of the time. No episodes. PVC singles 0 PVC singles 0/month PVC runs 0 PVC runs 0/month Histogram flat. Battery longevity 9.3-10.4 years. Apparent normal and stable device function. Device interrogation due in office in December 2020. Patient notified. documented in this encounter Plan of Treatment +--------+ + + + + | Date | Type | Specialty | Care Team | Description | +--------+ + + + + | 07/20/ | Implant | Cardiology | Cruzito Bird, | Remote Device | 2019 | Monitor | | [address] [facility] | Interrogation | | | | | [place], | (Primary Dx); | | | | | [place] [address] | Pacemaker Dual | | | | | [phone] | Chamber, MRI | | | | | | compatible, 05/14/17 | | | | | | [facility]; | | | | | | 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) | +--------+ + + + + | 01/05/ | Office | Cardiology | Emely Gabriel, | | | 2020 | Visit | | WOOD FINISHER [address] | | | | | | [facility] [place] [facility] [place] | | | | | | [address] | | | | | | | | +--------+ + + + + documented as of this encounter Procedures + +--------+ + + + | Procedure Name | Priori | Date/Time | Associated Diagnosis | Comments | | | ty | | | | + +--------+ + + + | DEVICE | Routin | 04/19/2020 | Remote Device | Results for this | | INTERROGATION- | e | 11:59 PM | Interrogation | procedure are in the | | REMOTE | | PDT | Pacemaker Dual | results section. | | | | | Chamber, MRI | | | | | | compatible, 05/14/17 | | | | | | [facility] | | | | | | 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) | | + +--------+ + + + documented in this encounter Results Device Interrogation - Remote (04/19/2020 11:59 PM PDT) + + + | Narrative | Performed At | + + + | Cruzito JONES | | MD Marge 02/11/2020 4:15 PMDate of Remote Interrogation: | | | 01/27/2020 Refer to [facility] documentation and remote PDF scanned into | | | [facility] for remote interrogation results. Data collected by Nancy Rossi | | | SAMEER Dougherty Presenting rhythm: sinus rhythm atrial paced ventricular | | | sensed between 64-67 beats.0 mode switch episodes accounting for 0% of | | | the time.No episodes. PVC singles 0 PVC singles | | | 0/monthPVC runs 0 PVC runs 0/monthHistogram | | | flat. Battery longevity 9.3-10.4 years.Apparent normal and | | | stable device function.Device interrogation due in office in December | | | 2020.Patient notified. | | |PVC singles 0 PVC singles 0/month | | |PVC runs 0 PVC runs 0/month | | |Histogram flat. Battery longevity 9.3-10.4 years. | | |Apparent normal and stable device function. | | |Device interrogation due in office in December 2020. | | |Patient notified. | | | | | | | | + + + + +---------+ + + | Performing | Address | City/State/Zipcode | Phone Number | | Organization | | | | + +---------+ + + | [facility] | | | | + +---------+ + + documented in this encounter Visit Diagnoses + + | Diagnosis | + + | Remote Device Interrogation - Primary Fitting and adjustment of cardiac pacemaker | + + | Pacemaker Dual Chamber, MRI compatible, 05/14/17 [facility] [place] Cardiac pacemaker | | in situ | + + | 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 | + + | Remote Device Interrogation - Primary Fitting and adjustment of cardiac pacemaker | + + | Pacemaker Dual Chamber, MRI compatible, 05/14/17 [facility] [place] Cardiac pacemaker | | in situ | + + | 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
--- OUTSIDE RECORDS SUMMARY | ~2020-04-29 | XMS | Encounter Summary ---
Demographics + + + | Address | [address] | | | [place] [address] | + + + | Home Phone | | + + + | Preferred Language | Unknown | + + + | Marital Status | | + + + | Baptist Affiliation | 1061 | + + + | Race | Unknown | + + + | Ethnic Group | Unknown | + + + Author + + + | Author | [facility] | | | and [place] | + + + | Organization | [facility] | | | and [...] Team Providers + +------+ + | Care Manager Machine Name | Role | Phone | + +------+ + | Antonio Paulino MD | PCP | | + +------+ + Reason for Visit + + + | Reason | Comments | + + + | Device Check | Billed | | (Remote) | | + + + Encounter Details +--------+ + + + + | Date | Type | Department | Care Team | Description | +--------+ + + + + | 01/18/ | Implant | [facility] | Cruzito Bird, | Remote Device | | 2020 | Monitor | CARDIOLOGY [address] [place] | Interrogation | | | | [place], | [place], | (Primary Dx); | | | | [place] [address] | [place] [address] | Pacemaker Dual | | | | [phone] | [phone] | Chamber, MRI | | | | | | compatible, 05/14/17 | | | | | | [facility] [place]; | | | | | | Tachycardia-bradycar [...] encounter Procedure Notes Cruzito Bird MD - 01/19/2020 11:59 PM PDTAssociated Order(s): DEVICE INTERROGATION- R EMOTEProcedure(s): DEVICE INTERROGATION- REMOTEPre-Procedure Diagnose(s): Pacemaker reprogra mming/check; Pacemaker; Tachycardia-bradycardia syndrome (HCC)Date of Remote Interrogation: 10/27/2019 Refer to [facility] documentation and remote PDF scanned into [facility] for remote interrogation re sults. Data collected by Yareli Molina RN Presenting rhythm: Atrial paced ventricular sensed with rate 60 beats. 0 mode switch episodes accounting for 0% of the time. No episodes. PVC singles 100 PVC singles 33/month PVC runs 0 Histogram fair. Battery longevity 8.9-10.4 years. Apparent normal and stable device function. Device interrogation done in office 01/06/2020. documented in this encounter Plan of Treatment +--------+ + + + + | Date | Type | Specialty | Care Team | Description | +--------+ + + + + | 07/20/ | Implant | Cardiology | Cruzito Bird, | Remote Device | | 2019 | Monitor | | [address] [place] [address] | Interrogation | | | | | [place], | (Primary Dx); | | | | | [place] [address] | Pacemaker Dual | | | | | [phone] | Chamber, MRI | | | | | | compatible, 05/14/17 | | | | | | [facility]; | | | | | | 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) | +--------+ + + + + | 03/18/ | Office | Cardiology | Emely Gabriel, | | | 2020 | Visit | | AIRBRUSH ARTIST PHOTOGRAPHY [address] | | | | | | [facility] [place] [facility] [place] | | | | | | [address] | | | | | | | | +--------+ + + + + documented as of this encounter Procedures + +--------+ + + + | Procedure Name | Priori | Date/Time | Associated Diagnosis | Comments | | | ty | | | | + +--------+ + + + | DEVICE | Routin | 01/19/2020 | Remote Device | Results for this [...] this encounter Results Device Interrogation - Remote (01/19/2020 11:59 PM PDT) + + + | Narrative | Performed At | + + + | Cruzito | KAREN | | MD Marge 01/14/2020 12:51 PMDate of Remote Interrogation: | | | 10/27/2019 Refer to [facility] documentation and remote PDF scanned into | | | [facility] for remote interrogation results. Data collected by Yareli Rivas | | | SAMEER Molina Presenting rhythm: Atrial paced ventricular sensed with | | | rate 60 beats. 0 mode switch episodes accounting for 0% of the time.No | | | episodes. PVC singles 100 PVC singles 33/monthPVC | | | runs 0 Histogram fair. Battery longevity | | | 8.9-10.4 years.Apparent normal and stable device function.Device | | | interrogation done in office 01/06/2020. | | |No episodes. | | |PVC singles 100 PVC singles 33/month | | |PVC runs 0 | | |Histogram fair. Battery longevity 8.9-10.4 years. | | |Apparent normal and stable device function. | | |Device interrogation done in office 01/06/2020. | | | | | | | [...]
--- OUTSIDE RECORDS SUMMARY | ~2020-04-29 | XMS | Encounter Summary ---
Demographics + + + | Address | [address] | | | [place] [address] | + + + | Home Phone | | + + + | Preferred Language | Unknown | + + + | Marital Status | | + + + | Nondenominational Affiliation | 1061 | + + + | Race | Unknown | + + + | Ethnic Group | Unknown | + + + Author + + + | Author | [facility] | | | and [place] | + + + | Organization | [facility] | | [...] Team Providers + +------+ + | Care Ethnoarchaeology Professor Name | Role | Phone | + +------+ + PCP | Unavailable | + +------+ + Encounter Details +--------+ + + + + | Date | Type | Department | Care Team | Description | +--------+ + + + + | 10/25/ | Hospital | [facility] | Mauricio Goldberg | | | 2003 | Encounter | MED CTR XRAY [address] | [address] | | | | | [place] | [address] [place] | | | | | [place] [address] | [place] [address] | | | | | [phone] | [phone] | | | | | | | | +--------+ + + + + Social History + +-------+ +--------+------+ | Tobacco Use | Types | Packs/Day | Years | Date | | | | | Used | | + +-------+ +--------+------+ | Never Assessed | | | | | + +-------+ +--------+------+ + + + | Sex Assigned at | Date Recorded | | | | + + + | Not on file | | + + + documented as of this encounter Plan of Treatment +--------+ + + + + | Date | Type | Specialty | Care Team | Description | +--------+ + + + + | 07/20/ | Implant | Cardiology | Cruzito Bird, | Remote Device | | 2020 | Monitor | | [address] | Interrogation | | | | | [place], | (Primary Dx); | | | | | [place] [address] | Pacemaker Dual | | | | | [phone] | Chamber, MRI | | | | | | compatible, 05/14/17 | | | | | | [facility]; | | | | | | 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) | +--------+ + + + + | 01/05/ | Office | Cardiology | Emely Gabriel, | | | 2020 | Visit | | CALCULATING MACHINE OPERATOR [address] | | | | | | [place] | | | | | | [address] | | | | | | | | +--------+ + + + + documented as of this encounter Visit Diagnoses Not on filedocumented in this encounter"
--- OUTSIDE RECORDS SUMMARY | ~2020-04-29 | XMS | Encounter Summary ---
Demographics + + + | Address | [address] | | | [place] [address] | + + + | Home Phone | | + + + | Preferred Language | Unknown | + + + | Marital Status | | + + + | Jain Affiliation | [id number] | + + + | Race | Unknown | + + + | Ethnic Group | Unknown | + + + Author + + + | Author | [facility] | | | and [place] | + + + | Organization | [facility] | | | [...] Providers + +------+ + | Care Human Factors Scientist Name | Role | Phone | + +------+ + | Antonio Paulino MD | PCP | | + +------+ + Reason for Visit Diagnostic/Screening (Routine) +--------+--------+ + + + + | Status | Reason | Specialty | Diagnoses / | Referred By | Referred To | | | | | Procedures | Contact | Contact | +--------+--------+ + + + + | Closed | | Pulmonology | Diagnoses | [place], | [facility] | | | | | Chronic | Emely, [facility] | Pulmonary | | | | | diastolic | [address] | Function [address] | | | | | (congestive) | [address] [place] | [address] | | | | | heart | [place], [place] | [place], | | | | | failure | [address] | [place] [address] | | | | | (HCC) | Phone: | Phone: | | | | | Encounter | [phone] | [phone] | | | | | for | Fax: | Fax: | | | | | monitoring | [phone] | [phone] | | | | | amiodarone | | | | | | | therapy | | | | | | | Unspecified | | | | | | | atrial | | | | | | | fibrillation | | | | | | | (HCC) | | | | | | | Procedures | | | | | | | [place] EVAL OF | | | | | | | BRONCHOSPASM | | | | | | | ,PROLONGED | | | | | | | [place] DIFFUSING | | | | | | | CAPACITY | | | | | | | [place] EVAL OF | | | | | | | BRONCHOSPASM | | | | | | | [place] | | | | | | | PLETHYSMOGRA | | | | | | | PHY LUNG | | | | | | | VOLUMES W/WO | | | | | | | AIRWAY | | | | | | | RESIST [place] | | | | | | | BREATHING | | | | | | | CAPACITY | | | | | | | TEST | | | +--------+--------+ + + + + Encounter Details +--------+ + + + + | Date | Type | Department | Care Team | Description | +--------+ + + + + | 06/26/ | Hospital | [facility] | Emely Gabriel, | Coronary artery | | 2018 | Encounter | [facility] P[facility] | [facility] [address] | disease involving | | | | FUNCTION [address] [place], [place] | galena coronary | | | | [address] [place], | [address] | artery of galena | | | | [place] [address] | | heart without angina | | | | [phone] | | pectoris; | | | | | | 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 ([facility]); | | | | | | Essential | | | | | | hypertension; | | | | | | Chronic diastolic | | | | | | congestive heart | | | | | | failure ([facility]); | | | | | | Persistent atrial | | | | | | fibrillation ([facility]); | | | | | | Pacemaker | | | | | | reprogramming/check; | | | | | | Pacemaker Dual | | | | | | Chamber, MRI | | | | | | compatible, 05/14/17 | | | | | | [facility]; | | | | | | care home current | | | | | | use of amiodarone | +--------+ + + + + Social [...] + + documented as of this encounter Medications at Time of Discharge + + + +---------+ + + | Medication | Sig | Dispensed | Refills | Start | End Date | | | | | | Date | | + + + +---------+ + + | amiodarone | Take 200 mg by mouth | | 0 | 05/21/20 | | | (PACERONE) 200 mg | daily. | | | 17 | | | tablet | | | [...] + + + +---------+ + + | desonide (DESOWEN) | Apply 1 Units | | 0 | | | | 0.05% cream | topically. | | | | | + + [...] + + + +---------+ + + | magnesium oxide | Take 400 mg by mouth | | 0 | | | | (MAG-OX) 400 mg | Daily. | | | | | | tablet | | | | | | + + + +---------+ + + | terbinafine | Apply 1 Units | | 0 | | | | (LAMISIL) 1% cream | topically. | | | | | + + [...] + + + +---------+ + + | bisacodyl | Place 10 mg rectally | | 0 | | | | (DULCOLAX) 10 mg | as needed for | | | | 0 | | suppository | Constipation. | | | | | + + + +---------+ + + | bisacodyl | Take 5 mg by mouth | | 0 | | | | (DULCOLAX) 5 mg EC | as needed for | | | | 8 | | tablet | Constipation. | | | | | + + + +---------+ + + | donepezil | Take 5 mg by mouth. | | 0 | | | | (ARICEPT) 10 MG | | | | | 0 | | tablet | | | | | | + + + +---------+ + + | doxycycline | Take 100 mg by mouth | | 0 | | | | (VIBRAMYCIN) 100 mg | 2 times daily. | | | | 0 | | capsule | | | | | | + + + +---------+ + + | fenofibrate | Take 145 mg by mouth | | 0 | | | | (TRICOR) 145 mg | Daily. | | | | 0 | | [...] + +---------+ + + | | Take 1 tablet by | | 0 | 01/30/20 | | | HYDROcodone-acetamin | mouth 4 (four) times | | | 18 | 0 | | ophen (NORCO) 5-325 | daily as needed. | | | | | | mg per tablet | | | | | | + + + +---------+ + + | | Take 1 tablet by | | 0 | | | | HYDROcodone-acetamin | mouth 3 times daily | | | | 0 | | ophen (NORCO) 5-325 | as needed for Pain. | | | | | | mg [...] + + + +---------+ + + | ondansetron | Take 4 mg by mouth | | 0 | | | | (ZOFRAN ODT) 4 mg | every 4 hours as | | | | 0 | | disintegrating | needed for Nausea. | | | | | | tablet | | | | | | + + + +---------+ + + | potassium chloride | Take 10 mEq by mouth | | 0 | | | | (BROWN-CON) 10 MEQ | Daily. | | | [...] by mouth | | 0 | | 03/18/202 | | (DESYREL) 50 mg | nightly [...] +---------+ + + | warfarin | Take 5 mg by mouth. 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 The prebronchodilato r FEV1 was 0.89 L or 33 % of predicted. FEV1/FVC ratio was 96 %. Following inhalation of al buterol the patient's FEV1 lopez to 0.92, 34% of predicted. That the lung volume and DLCO measurements were not possible. 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 No prior pul onary function tests available for comparison. Test performed: 06/26/18 Electronically signed by: Antonio Hartman MD 06/27/2018 11:09 [facility]ron[facility] signed by Antonio Hartman MD at 11:11 AM PDTdocumented in this encounter Plan of Treatment +--------+ + + + + | Date | Type | Specialty | Care Team | Description | +--------+ + + + + | 07/20/ | Implant | Cardiology | Cruzito Bird, | Remote Device | | 2019 | Monitor | | [address] [facility] | Interrogation | | | | | [facility] [place], | (Primary Dx); | | | | | [place] [id number] | Pacemaker Dual | | | | | [phone] | Chamber, MRI | | | | | | compatible, 05/14/17 | | | | | | [facility]; | | | | | | 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) | +--------+ + + + + | 01/05/ | Office | Cardiology | AbhijitEmely irwin, | | | 2020 | Visit | | [facility] [address] | | | | | | St [place] | | | | | | [id number] | | | | | | | | +--------+ + + + + documented as of this encounter Procedures + +--------+ + + + | Procedure Name | Priori | Date/Time | Associated Diagnosis | Comments | | | ty | | | | + +--------+ + + + | PFT PULMONARY | JUNAID | 06/27/2018 | Coronary artery | Results for this | | FUNCTION TESTING | | 11:09 AM | disease involving | procedure are in the | | ORDERS | | PDT | galena coronary | results section. | | | | | artery of galena | | | | | | heart without angina | | | | | | pectoris | | | | | | 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) | | | | | | Essential | | | | | | hypertension | | | | | | Chronic diastolic | | | | | | congestive heart | | | | | | failure (HCC) | | | | | | Persistent atrial | | | | | | fibrillation (HCC) | | | | | | Pacemaker | | | | | | reprogramming/check | | | | | | Pacemaker Dual | | | | | | Chamber, MRI | | | | | | compatible, 05/14/17 | | | | | | [facility] | | | | | | care home current | | | | | | use of amiodarone | | + +--------+ + + + | PFT PULMONARY | JUNAID | 06/27/2018 | Coronary artery | Results for this | | FUNCTION TESTING | | 11:09 AM | disease involving | procedure are in the | | ORDERS | | PDT | galena coronary | results section. | | | | | artery of galena | | | | | | heart without angina | | | | | | pectoris | | | | | | 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) | | | | | | Essential | | | | | | hypertension | | | | | | Chronic diastolic | | | | | | congestive heart | | | | | | failure (HCC) | | | | | | Persistent atrial | | | | | | fibrillation (HCC) | | | | | | Pacemaker | | | | | | reprogramming/check | | | | | | Pacemaker Dual | | | | | | Chamber, MRI | | | | | | compatible, 05/14/17 | | | | | | [facility] | | | | | | care home current | | | | | | use of amiodarone | | + +--------+ + + + documented in this encounter Results Pulmonary function test full PFT (06/27/2018 11:09 AM PDT) + + + | Narrative | Performed At | + + + | Antonio | | | MD Devan 06/27/2018 11:11 PULMONARY FUNCTION TESTING | | | SPIROMETRY: The prebronchodilator FVC was 0.92 L or 29 % of predicted. | | | The prebronchodilator FEV1 was 0.89 L or 33 % of predicted. FEV1/FVC | | | ratio was 96 %. Following inhalation of albuterol the patient's FEV1 | | | lopez to 0.92, 34% of predicted. That the lung volume and DLCO | | | measurements were not possible. IMPRESSION: Spirometry is consistent | | | with very severe restrictive physiology. No prior pulmonary function | | | tests available for comparison. Test performed: | | | 06/26/18Electronically signed by: Antonio Hartman MD 06/27/2018 | | | 11:09[facility] | | | | | | | | |IMPRESSION: Spirometry is consistent with very severe restrictive | | |physiology. No prior pulmonary function tests available for | | |comparison. 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 | | angina pectoris | + + | 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 | + + | Essential hypertension Unspecified essential hypertension | + + | Chronic diastolic congestive heart failure (HCC) Chronic diastolic heart failure | + + | Persistent atrial fibrillation (HCC) Atrial fibrillation | + + | Pacemaker reprogramming/check Fitting and adjustment of cardiac pacemaker | + + | Pacemaker Dual Chamber, MRI compatible, 05/14/17 [facility] | | in situ | + + | care home current use of amiodarone | + + | Remote Device Interrogation - Primary Fitting and adjustment of cardiac pacemaker | + + | Pacemaker Dual Chamber, MRI compatible, 05/14/17 [facility] [place] Cardiac pacemaker | | in situ | + + | 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 Administered Medications + +--------+ +--------+------+------+ | Medication Order | MAR | Action | Dose | Rate | Site | | | Action | Date | | | | + +--------+ +--------+------+------+ | albuterol 2.5 mg/3 mL nebulizer | Given | 06/26/20 | 2.5 mg | | | | solution 2.5 mg 2.5 mg, | | 18 11:28 | | | | | Nebulization, RT Once, [facility] 06/26/18 | | AM PDT | | | | | at 1145, For 1 dose, RT will | | | | | | | administer., | | | | | | + +--------+ +--------+------+------+ +---+---+ | | | +---+---+ documented in this encounter"
--- OUTSIDE RECORDS SUMMARY | ~2020-04-29 | XMS | Encounter Summary ---
Demographics + + + | Address | [address] | | | [place] [address] | + + + | Home Phone | | + + + | Preferred Language | Unknown | + + + | Marital Status | | + + + | Episcopal Affiliation | [id number] | + + + | Race | Unknown | + + + | Ethnic Group | Unknown | + + + Author + + + | Author | [facility] | | | and [place] | + + + | Organization | [facility] | | | and [place] | + + + | Address | Unknown | + + + | Phone | Unavailable | + + + Support + + +---------+ + | Name | Relationship | Address | Phone | + + +---------+ + | Johnny Siddiqi Jr. | ECON | Unknown | | + + +---------+ + | Cassandra Benitze | ECON | NA | | | | | NA, | | + + +---------+ + | Rl Siddiqi | ECON | Unknown | | + + +---------+ + | Chris Siddiqi | ECON | Unknown | | + + +---------+ + | Cassandra Guthrie | ECON | Unknown | | + + +---------+ + Care Team Providers + +------+ + | Care Casino Shift Manager Name | Role | Phone | + +------+ + | Emelina Robertson MD | PCP | Unavailable | + +------+ + Reason for Visit Auth/Cert +--------+--------+ + + + + | Status | Reason | Specialty | Diagnoses / | Referred By | Referred To | | | | | Procedures | Contact | Contact | +--------+--------+ + + + + | | | | Diagnoses | | | | | | | A-fib (HCC) | | | | | | | A-fib | | | | | | | (HCC) | | | | | | | [I48.91] | | | +--------+--------+ + + + + Encounter Details +--------+ + + + + | Date | Type | Department | Care Team | Description | +--------+ + + + + | 03/16/ | Hospital | [facility] | Cary Jain, | Acute on chronic | | 2016 - | Encounter | [facility] ICU [address] | diastolic | | | | [address], | [place], [place] | (congestive) heart | | 03/21/ | | [place] [address] | [id number] | failure (HCC) | | 2015 | | [phone] | | (Primary Dx); | | | | | Sy Hopkins MD | Persistent atrial | | | | | [address] | fibrillation (HCC); | | | | | [place], [place] | H/O aortic valve | | | | | [address] | replacement; Hard of | | | | | | hearing, | | | | | | unspecified | | | | | | laterality; CRUZITO | | | | | | (obstructive sleep | | | | | | apnea); Pulmonary | | | | | | HTN ([facility]); Venous | | | | | | stasis of both lower | | | | | | extremities; Atrial | | | | | | fibrillation with | | | | | | RVR ([facility]); | | | | | | Paroxysmal atrial | | | | | | fibrillation ([facility]); | | | | | | Acute renal failure, | | | | | | unspecified acute | | | | | | renal failure type | | | | | | ([facility]); Atrial | | | | | | fibrillation, | | | | | | unspecified type | | | | | | ([facility]); Coronary | | | | | | artery disease | | | | | | involving chenega | | | | | | heart without angina | | | | | | pectoris, | | | | | | unspecified vessel | | | | | | or lesion type; | | | | | | Acute on chronic | | | | | | diastolic congestive | | | | | | heart failure | | | | | | ([facility]); Hard of | | | | | | hearing, bilateral; | | | | | | Essential | | | | | | hypertension with | | | | | | goal blood pressure | | | | | | less than 130/85 | +--------+ + + + + Social [...] + + + | Blood Pressure | 112/75 | 03/21/2016 12:00 PM | | | | | PDT | | + + + + + | Pulse | 68 | 03/21/2016 12:00 PM | | | | | PDT | | + + + + + | Temperature | 36.4 C (97.6 F) | 03/21/2016 11:00 AM | | | | | PDT | | + + + + + | Respiratory Rate | 18 | 03/21/2016 12:00 PM | | | | | PDT | | + + + + + | Oxygen Saturation | 98% | 03/21/2016 12:00 PM | | | | | PDT | | + + + + + | Inhaled Oxygen | - | - | | | Concentration | | | | + + + + + | Weight | 102.5 kg (225 lb | 03/21/2016 1:47 AM | | | | 15.5 oz) | PDT | | + + + + + | Height | 170.2 cm (5' 7") | 03/16/2016 12:21 PM | | | | | PDT | | + + + + + | Body Mass Index | 35.39 | 03/16/2016 12:21 PM | | | | | PDT | | + + + + + documented in this encounter Functional Status + + + + | Functional Status | Response | Date of Assessment | + + + + | Are you deaf or do you have serious | No | 04/04/2015 | | difficulty hearing? | | | + + + + | Are you blind or do you have serious | No | 04/04/2015 | | difficulty seeing, even when wearing | | | | glasses? | | | + + + + | Do you have serious difficulty walking or | Yes | 04/04/2015 | | climbing stairs? (5 years old or older) | | | + + + + | Do you have difficulty dressing or bathing? | No | 04/04/2015 | | (5 years old or older) | | | + + + + | Because of a physical, mental, or emotional | No | 04/04/2015 | | condition, do you have difficulty [...] of a physical, mental, or emotional | No | 04/04/2015 | | condition, do you have serious difficulty | | | | concentrating, remembering, or making | | | | decisions? (5 years old or older) | | | + + + + documented as of this encounter Discharge Summaries Galen Davis MD - 03/21/2016 12:16 PM PDT DISCHARGE SUMMARY Patient Name: Johnny Siddiqi : 1935 Date of Admission: 03/16/2016 Date of Discharge: 03/21/2016 Admitting Physician: Cary Jain MD Discharging Physician: Galen Davis MD Primary Care Provider: Emelina Robertson MD Discharge Diagnoses: Principal Problem: Atrial fibrillation with RVR Active Problems: H/O aortic valve replacement Liver cirrhosis CAD (coronary artery disease) Pulmonary HTN CRUZITO (obstructive sleep apnea) Atrial fibrillation Acute on chronic diastolic (congestive) heart failure Wound of left leg Venous stasis of both lower extremities Hard of hearing Resolved Problems: * No resolved hospital problems. * Patient Active Problem List Diagnosis H/O aortic valve replacement Hypertension Liver cirrhosis Dementia Alcoholic cirrhosis CAD (coronary artery disease) Pulmonary HTN Diastolic CHF Over-anticoagulated Acute renal failure (ARF) Anemia CRUZITO (obstructive sleep apnea) Atrial fibrillation Acute on chronic diastolic (congestive) heart failure Wound of left leg Venous stasis of both lower extremities Hard of hearing Atrial fibrillation with RVR Consultants: Dr. Aguilera cardiology Procedures: Cardioversion Reason for Admission: Please refer to the H&P for full details. In short, this is a 80 y.o. male with a history of diastolic CHF, HTN, cirrhosis, stroke, dementia, Mech AVR, history of endocarditis who w as transferred from [facility] with shortness of breath and found to be in A fib RVR. He had been hospitalized there for 5 days prior to transfer to our facility for further car e. While there, he was loaded with Digoxin, without improved rate control. Upon transfer, th e patient was loaded with amiodarone. His rate remained intermittently uncontrolled. The pat ient underwent successful cardioversion Dr. Aguilera cardiology. He remained in sinus rhythm fo r the remainder of his hospitalization. The patient was continued on amiodarone, and had Zhanna enox bridge to coumadin for stroke prevention. He was diuresed with IV lasix for his acute o n chronic diastolic CHF. He is being discharged to [facility] in [place] for skill fidelina g Code Status: Full Code Disposition: [facility] Discharge Condition: good Discharge Medications New Medications Details amiodarone 400 MG tablet Take 1 tablet by mouth 2 times daily. aka: PACERONE polyethylene glycol packet Take 1 diluted packet by mouth Daily as needed. aka: MIRALAX Changed Medications Details warfarin 1 mg tablet 6 mg daily What changed: - medication strength - additional instructions aka: COUMADIN Unchanged Medications Details albuterol 90 mcg/puff inhaler Inhale 2 puffs into the lungs every 4 hours as needed for Wheezing. atorvaSTATin 10 mg tablet Take 10 mg by mouth nightly. aka: LIPITOR colchicine 0.6 mg tablet Take 0.6 mg by mouth as needed. He uses a tapering regimen over 8 days prn gout but is out Cyanocobalamin 1000 MCG Caps Take 1 tablet by mouth Daily. donepezil 10 MG tablet Take 5 mg by mouth Daily. aka: ARICEPT fenofibrate 145 mg tablet Take 145 mg by mouth Daily. aka: TRICOR furosemide 40 mg tablet Take 40 mg by mouth 2 times daily. aka: LASIX HYDROcodone-acetaminophen 5-325 mg per tablet Take 1 tablet by mouth every 6 hours as needed for Pain. aka: NORCO levothyroxine 25 mcg tablet Take 25 mcg by mouth every morning (before breakfast). aka: SYNTHROID, LEVOTHROID terbinafine 1% cream Apply topically 2 times daily. aka: lamISIL traZODone 50 mg tablet Take 50 mg by mouth nightly. aka: DESYREL urea 20% cream Apply topically 2 times daily. aka: CARMOL Discontinued Medications docusate sodium 250 MG capsule aka: COLACE metoprolol succinate 25 mg 24 hr tablet aka: TOPROL-XL Studies With Pending Results: None Greater than 30 minutes were spent on discharge and coordination of post-hospital care. Electronically signed by: Galen Davis MD, 03/21/2016 12:16 [facility] documented in this encounter Medications at Time of [...] amiodarone | Take 1 tablet by | 60 | 0 | 03/21/20 | | | (PACERONE) 400 MG | mouth 2 times daily. | tablet | | 16 | 7 | | tablet | | | | | | + + + +---------+ + + | atorvaSTATin | Take 10 mg by mouth | | 0 | | | | (LIPITOR) 10 mg | nightly. | | | | 8 | | tablet | | | | | | + + + +---------+ + + | colchicine 0.6 mg | Take 0.6 mg by mouth | | 0 | | | | tablet | as needed. He uses | | | | 7 | | | a tapering regimen | | | | | | | over 8 days prn gout | | | | | | | but is out | | | | | + + + +---------+ + + | Cyanocobalamin | Take 1 tablet by | | 0 | | | | 1000 MCG CAPS | mouth Daily. | | | | 7 | + + + +---------+ + + | donepezil | Take 5 mg by mouth | | 0 | | | | (ARICEPT) 10 MG | Daily. | | | | 7 | | tablet | | | | | | + + + +---------+ + + | fenofibrate | Take 145 mg by mouth | | 0 | | | | (TRICOR) 145 mg | Daily. | | | | 7 | | tablet | | | | | | + + + +---------+ + + | furosemide (LASIX) | Take 40 mg by mouth | | 0 | | | | 40 mg tablet | 2 times daily. | | | | 6 | + + + +---------+ + + | | Take 1 tablet by | 20 | 0 | 03/21/20 | | | HYDROcodone-acetamin | mouth every 6 hours | tablet | | 16 | 7 | | ophen (NORCO) 5-325 | as needed for Pain. | | | | | | mg per tablet | | | | | | + + + +---------+ + + | polyethylene | Take 1 diluted | 30 | 0 | 03/21/20 | | | glycol (MIRALAX) | packet by mouth | packet | | 16 | 7 | | packet | Daily as needed. | | | | | + + + +---------+ + + | terbinafine | Apply topically 2 | | 0 | | | | (LAMISIL) 1% cream | times daily. | | | | 7 | + + + +---------+ + + | traZODone | Take 50 mg by mouth | | 0 | | | | (DESYREL) 50 mg | nightly as needed | | | | 0 | | tablet | for Sleep. | | | | | + + + +---------+ + + | urea (CARMOL) 20% | Apply topically 2 | | 0 | | | | cream | times daily. | | | | 7 | + + + +---------+ + + | warfarin | 6 mg daily | 30 | 0 | 03/21/20 | | | (COUMADIN) 1 mg | | tablet | | 16 | 7 | | tablet | | | | | | + + + +---------+ + + documented as of this encounter Progress Notes Diann Rhoades, PharmD - 03/21/2016 11:25 AM PDTFormatting of this note might be differen t from the original. WARFARIN PER PHARMACY PROTOCOL: Subjective/Objective: Johnny Siddiqi is a 80 y.o. male admitted on 03/16/2016 for shortness of breath and is receivin g warfarin. Patient has a past medical history of H/O aortic valve replacement (2004); Hype rtension; Liver cirrhosis (HCC); CVA (cerebral infarction) (-2014); Dementia; Alcoholic cir rhosis (HCC) (2003); Endocarditis (2008); PSA elevation (2008); Peripheral vertigo (2012); V enous ulcer (HCC) (2013); Retinal detachment (2010); CAD (coronary artery disease) (2004); P ulmonary HTN (HCC); Diastolic CHF (HCC); and Over-anticoagulated (04/01/2015). Goal INR: 2-3 []Initiation [x]chronic Home regimen: warfarin 7mg except 5mg on Sat and Th Managed by: TBD ([facility]) Sensitizers: age, CHF Drug Interactions: fenofibrate, levothyroxine, amiodarone NON-valvular AFIB patients: [id number] score (max 9): 7 [x]CHF, [x]HTN, [x]Age > 75 (2), []DM, [x] prior CVA,VTE (2), [x]CT,PAD, []Age 64-74, []Fe male Recent Labs Lab 03/21/16 0411 03/20/16 0523 03/19/16 0645 CREA 1.33* 1.30 1.36* HGB 11.1* 11.6* 11.8* HCT 35.0* 36.6* 37.4* PLT 153 171 173 INR 2.30* 2.98* 3.31* Recent Labs Labs 03/16 03/17 03/18 03/19 03/20 03/21 Hgb 12.2 11.3 11.8 11.8 11.6 11.1 Hct 37.2 35.8 37.6 37.4 36.6 35.0 Platelets 166 176 190 - 171 153 INR 2.87 3.09 3.41 3.31 2.98 2.30 Warfarin Dose 7 mg 5 mg Hold dose HOLD 3 mg 6 mg Assessment: The INR is within the target range of 2-3 for atrial fibrillation Patient transferred from [facility] due to uncontrolled atrial fibrillation/flutter Amiodarone initiated 03/18 Plan: 1. Warfarin 6mg daily to start 03/21/16 2. Labs in AM: INR, Hgb, Hct 3. Pharmacist follow daily Warfarin Dosing Nomogram Warfarin Dosing Expectations Per P&T-approved Galen Preston MD - 03/20/2016 6:57 PM PDT . [facility] Hospitalist Progress Note Johnny Siddiqi is a 80 y.o. male SUBJECTIVE: Seen and examined by me this morning. Patient started on amiodarone, given failed control o f his rate on diltiazem and metoprolol. This morning, his rate is better controlled. Discussing placeement with CM VITALS: Temp: 36.8 C (98.2 F), Pulse: 75, Resp: 24, BP: 143/60 mmHg, SpO2 92 % on nasal cannula at flow rate 1L/min Temp Min: 35.7 C (96.3 F) Max: 36.8 C (98.2 F) Weight: 103.6 kg (228 lb 6.3 oz) Intake/Output Summary (Last 24 hours) at 03/20/16 1858 Last data filed at 03/20/16 1818 Gross per 24 hour Intake 870 ml Output 2401 ml Net -1531 ml PHYSICAL EXAM: General: nad Cardiovascular: irreg irreg, ALIREZA bilateral precordium Respiratory: CTA-bl Abdomen: S/nt/nd+bs Extremities: No joint effusion Skin: No rashes or lesions Neurological: CN's intact 2-12 DIAGNOSTIC STUDIES: Available data and images were reviewed personally. Significant results and findings are a ddressed here or in the Assessment and Plan. Recent Results (from the past 24 hour(s)) Protime INR Result Value Ref Range PROTIME 31.7 (H) 11.3-13.9 seconds INR 2.98 (H) 0.90-1.10 Basic Metabolic Panel Result Value Ref Range NA 142 136-149 mmol/L K 4.5 3.5-5.1 mmol/L CL 99 98-109 mmol/L CO2 36 (H) 24-31 mmol/L ANION GAP 7 3-16 mmol/L GLUCOSE 99 70-109 mg/dL BUN 38 (H) 7-18 mg/dL Creatinine, Serum/Plasma 1.30 0.60-1.30 mg/dL eGFR if not 53 (L) >=60 mL/min/1.73m2 CALCIUM 9.5 8.3-10.5 mg/dL BUN/CREA 29.2 CBC with Differential Result Value Ref Range WBC 6.8 4.0-11.0 K/uL RBC 4.27 (L) 4.30-5.70 M/uL Hgb 11.6 (L) 13.5-18.0 g/dL Hct 36.6 (L) 40.0-51.0 % MCV 85.9 83.0-101.0 fL MCH 27.1 (L) 28.0-35.0 pg MCHC 31.5 (L) 32.0-36.0 g/dL RDW-CV 16.4 (H) <15.0 % Platelet Count 171 140-440 K/uL MPV 7.8 fL % Neutrophils 47.5 45.0-82.0 % % Lymphocytes 35.7 20.0-45.0 % % Monocytes 13.3 (H) 4.0-12.0 % % Eosinophils 3.2 0.0-5.0 % % Basophils 0.3 0.0-1.0 % Absolute Neutrophils 3.20 1.80-8.50 K/uL Absolute Lymphocytes 2.40 0.60-3.20 K/uL Absolute Monocytes 0.90 0.00-1.00 K/uL Absolute Eosinophils 0.20 0.00-0.40 K/uL Absolute Basophils 0.00 0.00-0.10 K/uL B Type Natriuretic Peptide Result Value Ref Range BNP 543 (H) <100 pg/mL Slide Review, Peripheral Smear Result Value Ref Range RBC MORPHOLOGY Normal WBC MORPHOLOGY Normal PLT MORPHOLOGY Normal No results found. ASSESSMENT and PLAN: Active Hospital Problems Diagnosis *Atrial fibrillation with RVR CRUZITO (obstructive sleep apnea) Atrial fibrillation Acute on chronic diastolic (congestive) heart failure Wound of left leg Venous stasis of both lower extremities Hard of hearing H/O aortic valve replacement Liver cirrhosis CAD (coronary artery disease) Pulmonary HTN Resolved Hospital Problems Diagnosis Date Noted Date Resolved No resolved problems to display. 1. A fib RVR - improved control with amiodarone po 2. MAVR 3. Acute on chronic diastolic CHF 4. Cirrhosis 5. CAD 6. Pulmonary HTN 7. PVD with venous stasis - wound care Disposition : TBD Prophylaxis : coumadin Current Facility-Administered Medications: acetaminophen 650 mg Oral Q4H PRN amiodarone 400 mg Oral BID atorvaSTATin 10 mg Oral Nightly calcium carbonate 1,000 mg Oral Q4H PRN cyanocobalamin 1,000 mcg Oral Daily docusate calcium 240 mg Oral BID PRN donepezil 5 mg Oral Nightly fenofibrate 54 mg Oral Daily furosemide (LASIX) IV 40 mg Intravenous BID (8 and 16) HYDROcodone-acetaminophen 1 tablet Oral Q6H PRN levothyroxine 25 mcg Oral QAM AC metoprolol tartrate 2.5 mg Intravenous Q2H PRN pharmacy to dose warfarin Other Pharmacy Consult polyethylene glycol 17 g Oral Daily PRN traZODone 50 mg Oral Nightly Total time of approximately 29 minutes was spent with the patient and/or patient's family, and/or on the patient's floor/unit, of which more than 50% was spent counseling and/or coord ination the patient's care as outlined above. Galen Davis 03/20/2016 18:58 [facility] Portions of this chart may have been created with [employer] voice recognition software. Occasi onal wrong-word or sound-alike substitutions may have occurred due to the inherent carter itations of voice recognition software. Please read the chart carefully and recognize, using context, where these substitutions have occurred Diann Aguilar, PharmD - 03/20/2016 10:33 AM PDT . WARFARIN PER PHARMACY PROTOCOL: Subjective/Objective: Johnny Siddiqi is a 80 y.o. male admitted on 03/16/2016 for shortness of breath and is receivin g warfarin. Patient has a past medical history of H/O aortic valve replacement (2004); Hype rtension; Liver cirrhosis (HCC); CVA (cerebral infarction) (-2014); Dementia; Alcoholic cir rhosis (HCC) (2003); Endocarditis (2008); PSA elevation (2008); Peripheral vertigo (2012); V enous ulcer (HCC) (2013); Retinal detachment (2010); CAD (coronary artery disease) (2004); P ulmonary HTN (HCC); Diastolic CHF (HCC); and Over-anticoagulated (04/01/2015). Goal INR: 2-3 []Initiation [x]chronic Home regimen: warfarin 7mg except 5mg on Sat and Managed by: TBD ([place] records requested by provider) Sensitizers: age, CHF Drug Interactions: fenofibrate, levothyroxine, amiodarone NON-valvular AFIB patients: [id number] score (max 9): 7 [x]CHF, [x]HTN, [x]Age > 75 (2), []DM, [x] prior CVA,VTE (2), [x]CT,PAD, []Age 64-74, []Fe male Recent Labs Lab 03/20/16 0523 03/19/16 0645 03/18/16 0700 CREA 1.30 1.36* 1.39* HGB 11.6* 11.8* 11.8* HCT 36.6* 37.4* 37.6* PLT 171 173 Adequate | 190 INR 2.98* 3.31* 3.41* Recent Labs Labs 03/16 03/17 03/18 03/19 03/20 Hgb 12.2 11.3 11.8 11.8 11.6 Hct 37.2 35.8 37.6 37.4 36.6 Platelets 166 176 190 - 171 INR 2.87 3.09 3.41 3.31 2.98 Warfarin Dose 7 mg 5 mg Hold dose HOLD 3 mg Assessment: The INR is within the target range of 2-3 for atrial fibrillation Patient transferred from [facility] due to uncontrolled atrial fibrillation/flutter Amiodarone initiated 03/18 Plan: 1. Warfarin 3 mg x1 today. 2. Labs in AM: INR, Hgb, Hct 3. Pharmacist follow daily Warfarin Dosing Nomogram Warfarin Dosing Expectations Per P&T-approved Nancy Staley, PharmD - 03/19/2016 12:59 PM PDT . WARFARIN PER PHARMACY PROTOCOL: Subjective/Objective: Johnny Siddiqi is a 80 y.o. male admitted on 03/16/2016 for shortness of breath and is receivin g warfarin. Patient has a past medical history of H/O aortic valve replacement (2004); Hype rtension; Liver cirrhosis (HCC); CVA (cerebral infarction) (-2014); Dementia; Alcoholic cir rhosis (HCC) (2003); Endocarditis (2008); PSA elevation (2008); Peripheral vertigo (2012); V enous ulcer (HCC) (2013); Retinal detachment (2010); CAD (coronary artery disease) (2004); P ulmonary HTN (HCC); Diastolic CHF (HCC); and Over-anticoagulated (04/01/2015). Goal INR: 2-3 []Initiation [x]chronic Home regimen: warfarin 7mg except 5mg on Sat and Th Managed by: TBD ([facility]) Sensitizers: age, CHF Drug Interactions: fenofibrate, levothyroxine, amiodarone NON-valvular AFIB patients: [id number] score (max 9): 7 [x]CHF, [x]HTN, [x]Age > 75 (2), []DM, [x] prior CVA,VTE (2), [x]CT,PAD, []Age 64-74, []Fe male Recent Labs 03/19/16 0645 INR 3.31* HGB 11.8* HCT 37.4* Recent Labs Labs 03/16 03/17 03/18 03/19 Hgb 12.2 11.3 11.8 11.8 Hct 37.2 35.8 37.6 37.4 Platelets 166 176 190 - INR 2.87 3.09 3.41 3.31 Warfarin Dose 7 mg 5 mg Hold dose HOLD Assessment: The INR is above the target range of 2-3 for atrial fibrillation Patient transferred from [facility] due to uncontrolled atrial fibrillation/flutter Amiodarone initiated 03/18 Plan: 1. HOLD warfarin today 2. Pharmacist to dose tomorrow based in INR 3. Pharmacist follow daily Warfarin Dosing Nomogram Warfarin Dosing Expectations Per P&T-approved Sy Ibarra MD - 03/19/2016 8:45 AM PDT [facility] Hospitalist Progress Note Johnny Siddiqi is a 80 y.o. male ASSESSMENT and PLAN: Active Hospital Problems CRUZITO (obstructive sleep apnea) *Atrial fibrillation with RVR Patient failed diltiazem 60 mg 4 times daily and metoprolol 75 mg twice daily persistent ra pid atrial fibrillation with increase activity even while in bed, although rate controlled c ompletely at rest. Today he was started on amiodarone infusion noting one year ago he had s inus rhythm become recently symptomatic suggesting recent development of recurrent atrial fi brillation. Have held the patient's diltiazem and metoprolol noting his sinus rate was 57/m in on his electrocardiogram one year ago. Will convert to oral amiodarone today and if asher ent does not have cardioversion I'm going to make him NPO after midnight such that he can be electrically cardioverted tomorrow a.m. Acute on chronic diastolic (congestive) heart failure exam suggests persistent CHF will continue IV furosemide to 40 mg twice daily .will repeat the BMP/BNP in the morning. Wound of left leg Venous stasis of both lower extremities Hard of hearing H/O aortic valve replacement Patient reports he believes he had bypass grafting associated with his aortic valve replace ment. he denies any history of heart attack otherwise. Liver cirrhosis CAD (coronary artery disease) Pulmonary HTN SUBJECTIVE: No new symptoms by report. He denies shortness of breath or chest pain. VITALS: Temp: 35.7 C (96.3 F), Pulse: 101, Resp: 23, BP: 123/72 mmHg, SpO2 98 % on nasal cannul a at flow rate 2L/min Temp Min: 35.7 C (96.3 F) Max: 36.5 C (97.7 F) Weight: 103.6 kg (228 lb 6.3 oz) Intake/Output Summary (Last 24 hours) at 03/19/16 0845 Last data filed at 03/19/16 0600 Gross per 24 hour Intake 2215 ml Output 2925 ml Net -710 ml PHYSICAL EXAM: Cardiovascular: Irregular rate and rhythm with mechanical valve sound noted. Respiratory: Diminished in both lung bases without wheeze Abdomen: Soft without tenderness DIAGNOSTIC STUDIES: Available data and images were reviewed personally. Significant results and findings are a ddressed here or in the Assessment and Plan. Lab Results Component Value Date HGB 11.8* 03/19/2016 HCT 37.4* 03/19/2016 PLT 173 03/19/2016 WBC 6.6 03/19/2016 Lab Results Component Value Date NA 141 03/19/2016 K 4.6 03/19/2016 CL 99 03/19/2016 CO2 36* 03/19/2016 CREA 1.36* 03/19/2016 BUN 40* 03/19/2016 MG 2.5 03/16/2016 PHOS 3.2 04/04/2015 BNP 824* 03/19/2016 No results found for: POCGLU No results found for: POCGLU Xr Chest Ap Portable 03/18/2016 EXAM: XR CHEST AP PORTABLE dated 03/18/2016 5:17 AM HISTORY: chf Comparison: M ay 2015. TECHNIQUE: A single portable view of the chest. FINDINGS: Continued blunting of the left costophrenic angle and obscuration of the left hemidiaphragm. The right lung re candelaria better aerated. Prominent interstitial changes throughout both lungs. No pneumothora x. Stable cardiomegaly. Stable osseous structures. IMPRESSION - Continued blunting of t he left costophrenic angle and obscuration of the left hemidiaphragm. No significant interv al change. Dictated and Signed by: Paco Villasenor MD Electronically signed: 03/18/2016 1 0:00 AM Total time of approximately 25 minutes was spent with the patient and/or patient's family, and/or on the patient's floor/unit, of which more than 50% was spent counseling and/or coord ination the patient's care as outlined above. Sy Hopkins 03/19/2016 8:45 [facility] Portions of this chart may have been created with [employer] voice recognition software. Occasi onal wrong-word or sound-alike substitutions may have occurred due to the inherent carter itations of voice recognition software. Please read the chart carefully and recognize, using context, where these substitutions have occurred arker, Sy Ac MD - 0 03/18/2016 8:50 AM PDT [facility] Hospitalist Progress Note Johnny Siddiqi is a 80 y.o. male ASSESSMENT and PLAN: Active Hospital Problems CRUZITO (obstructive sleep apnea) *Atrial fibrillation with RVR Patient milligrams 4 times daily and metoprolol 75 mg twice daily has had rate control at r est, yesterday in the 60s to 80s with a very slow flutter, but with activity is morning is b ack in the 110-140 range. This is really been minimal activity also resulting in increased rate. Thus far [facility] but h e states if anything typically they are too high. He cannot tell me his pro times have been therapeutic over the past 2 [address]'ve [address] Aguilera to assess the patient. The quest ion is whether to convert him chemically with amiodarone or electrically cardiovert. An alt ernative would be to consider adding digoxin to his current regimen of metoprolol and diltia zem. We'll hold his metoprolol for now in case we initiated amiodarone in order to prevent bradycardia with cardioversion. Acute on chronic diastolic (congestive) heart failure CXR shows persistent evidence of pulmonary edema. We'll convert furosemide to 40 mg IV twi ce daily. Wound of left leg Venous stasis of both lower extremities Hard of hearing H/O aortic valve replacement Patient reports he believes he had bypass grafting associated with his aortic valve replace ment. he denies any history of heart attack otherwise. Liver cirrhosis CAD (coronary artery disease) Pulmonary HTN SUBJECTIVE: Early denies chest pain or shortness of breath. No nausea or other discomfort reported. H e reports he can tell his rate has been better controlled albeit I did advise and this was a t rest and not associated with activity. VITALS: Temp: 36.5 C (97.7 F), Pulse: 107, Resp: 22, BP: 109/56 mmHg, SpO2 95 % on nasal cannul a at flow rate 2L/min Temp Min: 35.6 C (96.1 F) Max: 36.9 C (98.4 F) Weight: 103.6 kg (228 lb 6.3 oz) Intake/Output Summary (Last 24 hours) at 03/18/16 0850 Last data filed at 03/18/16 0403 Gross per 24 hour Intake 1610 ml Output 1600 ml Net 10 ml PHYSICAL EXAM: Cardiovascular: Irregular rate and rhythm with mechanical valve sound noted. Respiratory: Diminished in both lung bases without wheeze Abdomen: Soft without tenderness DIAGNOSTIC STUDIES: Available data and images were reviewed personally. Significant results and findings are a ddressed here or in the Assessment and Plan. Lab Results Component Value Date HGB 11.8* 03/18/2016 HCT 37.6* 03/18/2016 PLT 190 03/18/2016 PLT Adequate 03/18/2016 WBC 7.8 03/18/2016 Lab Results Component Value Date NA 140 03/18/2016 K 4.8 03/18/2016 CL 99 03/18/2016 CO2 34* 03/18/2016 CREA 1.39* 03/18/2016 BUN 40* 03/18/2016 MG 2.5 03/16/2016 PHOS 3.2 04/04/2015 BNP 875* 03/18/2016 No results found for: POCGLU No results found for: POCGLU Xr Chest Ap Portable 03/16/2016 XR CHEST AP PORTABLE 03/16/2016 3:20 PM HISTORY: CHF, follow up effusion. COMP ARISON: Multiple priors. Findings: Sternotomy wires and a prosthetic aortic valve are seen. The heart is enlarged. There is atherosclerosis of the aorta. Mediastinum is unremarkable. Central pulmonary vasculature is normal. Mild, diffuse scarring is noted of the bilateral odette ngs. There is chronic blunting of the left costophrenic angle that could represent scarring versus a small pleural effusion. There is moderate thoracic spondylosis. IMPRESSION - Cardi omegaly. Chronic blunting of left costophrenic angle that could represent scarring versus s mall pleural effusion. Dictated and Signed by: Deep Garcia MD Electronically signed: 02/19 4:32 PM Total time of approximately 25 minutes was spent with the patient and/or patient's family, and/or on the patient's floor/unit, of which more than 50% was spent counseling and/or coord ination the patient's care as outlined above. Sy Hopkins 03/18/2016 8:50 [facility] Portions of this chart may have been created with Agrivida voice recognition software. Occasi onal wrong-word or sound-alike substitutions may have occurred due to the inherent carter itations of voice recognition software. Please read the chart carefully and recognize, using context, where these substitutions have occurred Nubia Saldana, PharmD - 03/18/2016 7:23 AM PDT WARFARIN PER PHARMACY PROTOCOL: Subjective/Objective: Johnny Siddiqi is a 80 y.o. male admitted on 03/16/2016 for shortness of breath and is receivin g warfarin. Patient has a past medical history of H/O aortic valve replacement (2004); Hype rtension; Liver cirrhosis (HCC); CVA (cerebral infarction) (-2014); Dementia; Alcoholic cir rhosis (HCC) (2003); Endocarditis (2008); PSA elevation (2008); Peripheral vertigo (2012); V enous ulcer (HCC) (2013); Retinal detachment (2010); CAD (coronary artery disease) (2004); P ulmonary HTN (HCC); Diastolic CHF (HCC); and Over-anticoagulated (04/01/2015). Goal INR: 2-3 []Initiation [x]chronic Home regimen: warfarin 7mg except 5mg on Sun and Thurs Managed by: TBD ([facility]) Sensitizers: age, CHF Drug Interactions: fenofibrate, levothyroxine NON-valvular AFIB patients: [id number] score (max 9): 7 [x]CHF, [x]HTN, [x]Age > 75 (2), []DM, [x] prior CVA,VTE (2), [x]CT,PAD, []Age 64-74, []Fe male Recent Labs Labs 03/16 03/17 03/18 Hgb 12.2 11.3 11.8 Hct 37.2 35.8 37.6 Platelets 166 176 190 INR 2.87 3.09 3.41 Warfarin Dose 7 mg 5 mg Hold dose Assessment: The INR is 3.41 above the target range of 2-3 for atrial fibrillation Patient transferred from [facility] due to uncontrolled atrial fibrillation/flutter Plan: 1. Will hold warfarin dose today (03/18/16) 2. Pharmacist to dose tomorrow based in INR 3. Pharmacist follow daily Warfarin Dosing Nomogram Warfarin Dosing Expectations Per P&T-approved ob Nancy byrne PharmD - 03/17/2016 11:19 AM PDT WARFARIN PER PHARMACY PROTOCOL: Subjective/Objective: Johnny Siddiqi is a 80 y.o. male admitted on 03/16/2016 for shortness of breath and is receivin g warfarin. Patient has a past medical history of H/O aortic valve replacement (2004); Hype rtension; Liver cirrhosis (HCC); CVA (cerebral infarction) (-2014); Dementia; Alcoholic cir rhosis (HCC) (2003); Endocarditis (2008); PSA elevation (2008); Peripheral vertigo (2012); V enous ulcer (HCC) (2013); Retinal detachment (2010); CAD (coronary artery disease) (2004); P ulmonary HTN (HCC); Diastolic CHF (HCC); and Over-anticoagulated (04/01/2015). Goal INR: 2-3 []Initiation [x]chronic Home regimen: warfarin 7mg except 5mg on Sun and Thurs Managed by: TBD ([place] requested by provider) Sensitizers: age, CHF Drug Interactions: fenofibrate, levothyroxine NON-valvular AFIB patients: [id number] score (max 9): 7 [x]CHF, [x]HTN, [x]Age > 75 (2), []DM, [x] prior CVA,VTE (2), [x]CT,PAD, []Age 64-74, []Fe male Recent Labs Lab 03/17/16 0438 03/16/16 1306 CREA 1.49* 1.55* HGB 11.3* 12.2* HCT 35.8* 37.2* PLT 176 166 INR 3.09* 2.87* Date 03/16 03/17 Hgb 12.2 11.3 Hct 37.2 35.8 Platelets 166 176 INR 2.87 3.09 Warfarin Dose 7 mg 5 mg Assessment: The INR is within the target range of 2-3 for atrial fibrillation Patient transferred from [facility] due to uncontrolled atrial fibrillation/flutter Plan: 1. Will lower warfarin to 5mg po x1 2. Medication profile reviewed for potential drug-drug interactions 3. Labs in am: Hgb, Hct, INR 4. Warfarin education received No. (COMPLIANCE INVESTIGATOR MED) 5. Pharmacist to follow daily Warfarin Dosing Nomogram Warfarin Dosing Expectations Per P&T-approved Electronically signed by: Nancy Rizzo, PHARMD 03/17/2016 11:19 Sy Ibarra MD - 03/17/2016 9:37 AM PDT [facility] Hospitalist Progress Note Johnny Siddiqi is a 80 y.o. male ASSESSMENT and PLAN: Active Hospital Problems CRUZITO (obstructive sleep apnea) *Atrial fibrillation with RVR Patient currently is on diltiazem 10 mg/hr IV and metoprolol 75 mg twice daily. Plan will be to convert to diltiazem 60 mg 4 times daily and discontinue the drip. Chest heart rate r ise in all consider adding digoxin. The patient does have sinus bradycardia from 03/2015 wit h heart rate of 57. This was last documented time that he was in sinus rhythm on given trou ble with rate control is likely that the A. fib has been relatively recent onset. He is ant icoagulated and thus issue is whether he can be cardioverted back to sinus rhythm and I am stephen forrest to discuss this with cardiology. He may be a candidate for rhythm control with amiodar one but will initially give oral diltiazem and see how we can do with heart rates. Certainl y with conversion he may have more bradycardia. Acute on chronic diastolic (congestive) heart failure Patient is -1.3 L since admission. We'll perform repeat BNP and chest x-ray in a.m. Wound of left leg Venous stasis of both lower extremities Hard of hearing H/O aortic valve replacement Patient reports he believes he had bypass grafting associated with his aortic valve replace ment. he denies any history of heart attack otherwise. Liver cirrhosis CAD (coronary artery disease) Pulmonary HTN SUBJECTIVE: Early denies chest pain or shortness of breath. No nausea or other discomfort reported VITALS: Temp: 36.1 C (97 F), Pulse: 115, Resp: 23, BP: 108/74 mmHg, SpO2 95 % on nasal cannula at flow rate 2L/min Temp Min: 36.1 C (97 F) Max: 36.8 C (98.2 F) Weight: 103.6 kg (228 lb 6.3 oz) Intake/Output Summary (Last 24 hours) at 03/17/16 0937 Last data filed at 03/17/16 0841 Gross per 24 hour Intake 284.5 ml Output 1625 ml Net -1340.5 ml PHYSICAL EXAM: Cardiovascular: Irregular rate and rhythm Respiratory: Diminished in both lung bases without wheeze Abdomen: Soft without tenderness DIAGNOSTIC STUDIES: Available data and images were reviewed personally. Significant results and findings are a ddressed here or in the Assessment and Plan. Lab Results Component Value Date HGB 11.3* 03/17/2016 HCT 35.8* 03/17/2016 PLT 176 03/17/2016 WBC 6.1 03/17/2016 Lab Results Component Value Date NA 139 03/17/2016 K 4.5 03/17/2016 CL 100 03/17/2016 CO2 34* 03/17/2016 CREA 1.49* 03/17/2016 BUN 42* 03/17/2016 MG 2.5 03/16/2016 PHOS 3.2 04/04/2015 BNP 1028* 03/16/2016 No results found for: POCGLU No results found for: POCGLU Xr Chest Ap Portable 03/16/2016 XR CHEST AP PORTABLE 03/16/2016 3:20 PM HISTORY: CHF, follow up effusion. COMP ARISON: Multiple priors. Findings: Sternotomy wires and a prosthetic aortic valve are seen. The heart is enlarged. There is atherosclerosis of the aorta. Mediastinum is unremarkable. Central pulmonary vasculature is normal. Mild, diffuse scarring is noted of the bilateral odette ngs. There is chronic blunting of the left costophrenic angle that could represent scarring versus a small pleural effusion. There is moderate thoracic spondylosis. IMPRESSION - Cardi omegaly. Chronic blunting of left costophrenic angle that could represent scarring versus s mall pleural effusion. Dictated and Signed by: Deep Garcia MD Electronically signed: 02/19 4:32 PM Total time of approximately 25 minutes was spent with the patient and/or patient's family, and/or on the patient's floor/unit, of which more than 50% was spent counseling and/or coord ination the patient's care as outlined above. Sy Hopkins 03/17/2016 9:37 [facility] Portions of this chart may have been created with Agrivida voice recognition software. Occasi onal wrong-word or sound-alike substitutions may have occurred due to the inherent carter itations of voice recognition software. Please read the chart carefully and recognize, using context, where these substitutions have occurred Diann Aguilar Phar mD - 03/16/2016 1:47 PM PDT WARFARIN PER PHARMACY PROTOCOL: Subjective/Objective: Johnny Siddiqi is a 80 y.o. male admitted on 03/16/2016 for shortness of breath and is receivin g warfarin. Patient has a past medical history of H/O aortic valve replacement (2004); Hype rtension; Liver cirrhosis (HCC); CVA (cerebral infarction) (-2014); Dementia; Alcoholic cir rhosis (HCC) (2003); Endocarditis (2008); PSA elevation (2008); Peripheral vertigo (2012); V enous ulcer (HCC) (2013); Retinal detachment (2010); CAD (coronary artery disease) (2004); P ulmonary HTN (HCC); Diastolic CHF (HCC); and Over-anticoagulated (04/01/2015). Goal INR: 2-3 []Initiation [x]chronic Home regimen: warfarin 7mg except 5mg on Sat and Managed by: TBD ([place] requested by provider) Sensitizers: age, CHF Drug Interactions: fenofibrate, levothyroxine NON-valvular AFIB patients: [id number] score (max 9): 7 [x]CHF, [x]HTN, [x]Age > 75 (2), []DM, [x] prior CVA,VTE (2), [x]CT,PAD, []Age 64-74, []Fe male Recent Labs Lab 03/16/16 1306 CREA 1.55* HGB 12.2* HCT 37.2* PLT 166 INR 2.87* Date 03/16 Hgb 12.2 Hct 37.2 Platelets 166 INR 2.87 Warfarin Dose 7 mg Assessment: The INR is within the target range of 2-3 for atrial fibrillation Patient transferred from [facility] due to uncontrolled atrial fibrillation/flutter Plan: 1. Warfarin 7mg po x1 ordered on 03/16/16 2. Medication profile reviewed for potential drug-drug interactions 3. Labs in am: Hgb, Hct, INR 4. Warfarin education received No. (COMPLIANCE INVESTIGATOR MED) 5. Pharmacist to follow daily Warfarin Dosing Nomogram Warfarin Dosing Expectations Per P&T-approved Electronically signed by: Diann Rhoades, PHARMD 03/16/2016 13:47 documented in th is encounter H&P Notes Cary aJin MD - 03/16/2016 1:07 PM PDTFormatting of this note might be different fr om the original. [facility] HISTORY AND PHYSICAL Pt. Name/Age/: Johnny Siddiqi 80 y.o. 1935 Date of admission: 03/16/2016 Admitting Physician: Cary Jain MD Primary Care Provider: Mauricio Goldberg MD CHIEF COMPLAINT: Shortness of breath HISTORY OF PRESENT ILLNESS: This is a 80 y.o. male who presented on transfer from [facility] where he h as been hospitalized for five days with diastolic dysfunction and inability to control heart rate. The patient has a history of CAD, aortic valve replacement and prior admissions and E D visits for uncontrolled a fib/flutter. His echo showed good EF with diastolic dysfunction and moderate pulmonary hypertension. He was loaded with digoxin but this did not help with r ate control. He is noted to have chronic renal insufficiency by chart history as well. He de nies any chest pain or chest pressure. EKG confirms atrial fibrillation. He arrived today on IV diltiazem drip. This will be titrated as tolerated. PAST MEDICAL and SURGICAL HISTORY: Past Medical History Diagnosis Date H/O aortic valve replacement 2004 [facility] AV[facility] INR goal is 2-3, surgery done at [facility] Hypertension Liver cirrhosis (HCC) CVA (cerebral infarction) -2014 lacunar (not stated as new nor old) Dementia Alcoholic cirrhosis (HCC) 2003 CT scan 2003 at [facility] Endocarditis 2009 Enterococcus 6 weeks Amp + Gent PSA elevation 2008 Pt declined Bx then Peripheral vertigo 2012 BPPV left Venous ulcer (HCC) 2013 Leg Retinal detachment 2010 CAD (coronary artery disease) 2004 Had CABG to LAD (for 80-90% LAD) surgery done at [facility] Pulmonary HTN (HCC) Severe on Echo 2013 Diastolic CHF (HCC) Echo 2014 EF 68, ascites, pulm HTN Over-anticoagulated 04/01/2015 Past Surgical History Procedure Laterality Date Cardiac surgery [facility] FAMILY HISTORY: family history includes Heart disease in his father. SOCIAL HISTORY: reports that he has never smoked. He does not have any smokeless tobacco history on file. He reports that he does not drink alcohol. REVIEW OF SYSTEMS: Positive for chronic left leg wound, easy fatigue, hard of hearing. A complete 10-system r eview was otherwise negative except as noted in the HPI. HOME MEDICATIONS: Current Discharge Medication List CONTINUE these medications which have NOT CHANGED Details albuterol 90 mcg/puff inhaler Inhale 2 puffs into the lungs every 4 hours as needed for Whe ezing. atorvaSTATin (LIPITOR) 10 mg tablet Take 10 mg by mouth nightly. colchicine 0.6 mg tablet Take 0.6 mg by mouth as needed. He uses a tapering regimen over 8 days prn gout but is out Cyanocobalamin 1000 MCG CAPS Take 1 tablet by mouth Daily. docusate sodium (COLACE) 250 MG capsule Take 250 mg by mouth Twice daily as needed for Con stipation. donepezil (ARICEPT) 10 MG tablet Take 5 mg by mouth Daily. fenofibrate (TRICOR) 145 mg tablet Take 145 mg by mouth Daily. furosemide (LASIX) 40 mg tablet Take 40 mg by mouth 2 times daily. HYDROcodone-acetaminophen (NORCO) 5-325 mg per tablet Take 1 tablet by mouth every 6 hours as needed for Pain. levothyroxine (SYNTHROID, LEVOTHROID) 25 mcg tablet Take 25 mcg by mouth every morning (bef ore breakfast). metoprolol succinate (TOPROL-XL) 25 mg 24 hr tablet Take 50 mg by mouth Daily. terbinafine (LAMISIL) 1% cream Apply topically 2 times daily. traZODone (DESYREL) 50 mg tablet Take 50 mg by mouth nightly. urea (CARMOL) 20% cream Apply topically 2 times daily. warfarin (COUMADIN) 2 mg tablet Do not restart your Warfarin (Coumadin) yet, you need daily Protimes at [facility] in [place] starting Saturday and be sure the [place] Warfarin Cli iggy calls you every day with the results and the Warfarin clnic person will determine when y ou are to restart Warfarin and at what dose ALLERGIES: Allergies Allergen Reactions Latex Rash VITAL SIGNS: Temp: 36.6 C (97.9 F), Pulse: 92, Resp: 25, BP: 104/58 mmHg, SpO2 99 % on nasal cannula at flow rate 2L/min Temp Min: 36.6 C (97.9 F) Max: 36.6 C (97.9 F) Weight: 103.6 kg (228 lb 6.3 oz) PHYSICAL EXAMINATION: Constitutional: male patient, No acute distress HEENT: Atraumatic, PER, eyes clear of redness. Poor hearing Neck: Supple with good range of motion, no JVD Respiratory: Good air movement bilaterally. No rales or wheezing Cardiovascular: Normal S1 S2, no murmur, rapid irregular rhythm Abdomen: Soft, large nontender. No rebound, guarding, or masses. No pulsatile masses Extremities: Nontender. Venous stasis changes and a wound on the lower left anterior rogers Trace lower extremity edema, + calf asymmetry. Skin: Warm, Dry, venous stasis changes in the lower legs Neurologic: Alert & oriented. Not anxious. No focal deficits except hearing loss, Speech normal, gait not tested Psychiatric: Normal mood and affect. DIAGNOSTIC STUDIES: Available data and images were reviewed personally. Significant results and findings are a ddressed here or in the Assessment and Plan. Lab Results Component Value Date HGB 11.8* 02/24/2016 HCT 36.7* 02/24/2016 PLT 175 02/24/2016 WBC 6.6 02/24/2016 Lab Results Component Value Date NA 137 02/24/2016 K 4.1 02/24/2016 CL 97* 02/24/2016 CO2 32* 02/24/2016 CREA 1.51* 02/24/2016 BUN 29* 02/24/2016 MG 2.7* 04/02/2015 PHOS 3.2 04/04/2015 BNP 287* 12/02/2012 No results found for: POCGLU No results found. EKG: Reviewed independently by me. The tracing shows a fib. ASSESSMENT and PLAN: Principal Problem: Atrial fibrillation Active Problems: H/O aortic valve replacement Liver cirrhosis CAD (coronary artery disease) Pulmonary HTN CRUZITO (obstructive sleep apnea) Acute on chronic diastolic (congestive) heart failure Wound of left leg Venous stasis of both lower extremities Hard of hearing Plan: admit to stepdown, attempts at rate control, serial troponin, follow I and O, trail o f CPAP for CRUZITO in setting of pulmonary hypertension, consider pacemaker next Saturday if unab le to control rate due to bradycardia etc. Pharmacy to dose Warfarin for mechanical valve. DVT Prophylaxis Coumadin with INR goal 2-3 Code Status Full Code. CMS Documentation I expect this patient will be hospitalized for greater than 2-midnights and expect the post -hospital plan to be discharge to home or to an adult foster home. Total of 52 minutes were required to complete the admission process. Electronically signed by: Cary Jain MD 03/16/2016 13:08 [facility] Portions of this chart may have been created with Agrivida voice recognition software. Occasi onal wrong-word or sound-alike substitutions may have occurred due to the inherent carter itations of voice recognition software. Please read the chart carefully and recognize, using context, where these substitutions have occurred documented in this e ncounter Procedure Notes Jaren Aguilera MD - 03/19/2016 2:07 PM PDTProcedure(s): CARDIOVERSIONPre-Procedure Di agnose(s): Atrial fibrillation, new onset (HCC)The patient was examined and found to be a go od candidate for sedation. 50 mg of propofol were administered. A single 200 J synchronized shock was delivered with immediate conversion. Stable sinus rhythm was achieved within 60 seconds. The patient had periods of profound bradycardia prior to that time. He awoke without recall and without deficit. documented in this encounter Miscellaneous Notes Plan of Care - Melinda Ballard RN - 03/21/2016 3:58 PM PDTProblem: Patient Care William best (Adult) Goal: Care Team Goals & Evaluation PROBLEM-RELATED GOALS: 1.Will maintain adequate oxygenation via oximetry with SpO2 >92 by 03/21/16. 2.Will maintain airway and adequate ventilation with use of Bipap during sleep. By 03/21/16 3. Heart rhythm will continue to be in NSR with adequate rate control by 03/21/16. 4. Pt will be supervised for his BADLs & functional mobility by 03/27/16. 5. Modified independent in room and morris by 03/26/16 STRATEGY TO ACHIEVE GOALS: 1.Monitor saturations via oximetry every 4 hrs and titrate to order as indicated. 2.Provide noninvasive or mechanical ventilation. Monitor every 4 hours during sleep. 3. Administer medications as ordered. 4. Monitor telemetry. - Participation in therapy sessions - Active participation in all PT interventions - Out of bed for all meals RESTRAINT-RELATED GOALS: STRATEGIES TO ACHIEVE RESTRAINT GOALS: Outcome: Adequate for Discharge Date Met: 03/21/16 Goal Evaluation: Johnny is being transferred to [facility] in [place] for IP rehab. He was started on amiodarone while here and restarted on Warfarin with next PT/INR on March 23. He transferre d using a FWW. He is only needing O2 bled into his BIPAP while sleeping. He is on room air during the day. Family is aware of discharge plan. VSS. [facility] transporter here to t ion patient. NF Transfer - Ne luis fernando, Galen Song MD - 03/21/2016 12:14 PM PDTFormatting of this note might be different fro m the original. [facility] FACILITY TRANSFER ORDERS Patient Name: Johnny Siddiqi Patient : 1935 Gender: male Date of Admission: 03/16/2016 Date of Discharge: 03/21/2016 Admitting Provider: Cary Jain MD Discharging Provider: Galen Davis MD Consultants: cardiology PCP: [facility] transferring to: [facility] Provider after transfer: Per SNF CODE STATUS: [x] Attempt CPR [] Do not resuscitate If patient is pulseless and not breathing, RN/FIREWORKS INSPECTOR may pronounce . Advanced Directives included: [] POLST [] MOLST/MOST [] [employer] ([place]) [] Other: Code status discussed with: [x] Patient [] Spouse/Family [] DPOA [] Other: Name of person discussed with: Date discussed: Isolation/Infection Precautions: [] None Height: Height: 170.2 cm (5' 7") Wt Readings from Last 3 Encounters: 03/21/16 102.5 kg (225 lb 15.5 oz) 02/24/16 97.523 kg (215 lb) 04/04/15 85.866 kg (189 lb 4.8 oz) Admitting Diagnosis: A-fib (HCC) Patient Active Problem List Diagnosis H/O aortic valve replacement Hypertension Liver cirrhosis Dementia Alcoholic cirrhosis CAD (coronary artery disease) Pulmonary HTN Diastolic CHF Over-anticoagulated Acute renal failure (ARF) Anemia CRUZITO (obstructive sleep apnea) Atrial fibrillation Acute on chronic diastolic (congestive) heart failure Wound of left leg Venous stasis of both lower extremities Hard of hearing Atrial fibrillation with RVR Allergies Allergen Reactions Latex Rash There is no immunization history on file for this patient. Diet: [] As tolerated CARBON BRUSHER ASSEMBLER may upgrade or downgrade diet as condition Indicates. [] RN may downgrade diet as indicated. Type: [x] Continue current diet of: Diet and Supplements Diet Diet general; fat and cholesterol modified; Effective Now Number of Occurrences: Until Specified Order Questions: Type Diet general Fat or cholesterol modifications fat and cholesterol modified [] Other: Consistency/Precautions: [] Whole [] Thin Liquids [] Cut-up [] [place] Thick [] Advanced Chopped [] Honey Thickened [] Chopped [] Advanced Ground [] 1:1 feedings [] Ground/Pureed [] Other: Tube Feedings: [] PEG [] GT [] JT [] NGT [] Formula type: (Subway Guard may change/substitute if indicated). [] Continuous Rate: ml/hr, infusing hrs/day [] Bolus feeds: ml every hours [] Additional water: ml every hours Respiratory: [x] BiPAP at night & PRN SOB. Settings:__07/25 O2 ___2__ L bleed Dx: [] CPAP at night & PRN SOB. Settings: O2 L bleed Dx: [] Suction & Pulmonary toilet PRN secretion/sputum management. Dx: [] Incentive Spirometer QID and PRN while awake. 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 [] Follow standard nursing protocols for wound care. [] Wound Vac management per nursing protocol. Indication: Location: Settings: Change frequency: & prn [] Other: Labs/Imaging: [] PT/INR: Frequency: Dx: Goal INR: Duration of therapy: [] Fingerstick glucose checks: Dx: DM [] Other: Test/Study Needed/Frequency Diagnosis/Indication Follow up appointments and consultations: Date/Time: Date/Time I have advised this patient that [...] mouth 2 times daily. aka: PACERONE By: Galen Davis Quant: 60 tablet polyethylene glycol packet Take 1 diluted packet by mouth Daily as needed. aka: MIRALAX By: Galen Davis Quant: 30 packet Changed Medications Details Order Next Dose Due warfarin 1 mg tablet 6 mg daily What changed: - medication strength - additional instructions aka: COUMADIN By: Galen Davis Quant: 30 tablet Unchanged Medications Details Order Next Dose Due albuterol 90 mcg/puff inhaler Inhale 2 puffs into the lungs every 4 hours as needed for Wheezing. atorvaSTATin 10 mg tablet Take 10 mg by mouth nightly. aka: LIPITOR colchicine 0.6 mg tablet Take 0.6 mg by mouth as needed. He uses a tapering regimen over 8 days prn gout but is out Cyanocobalamin 1000 MCG Caps Take 1 tablet by mouth Daily. donepezil 10 MG tablet Take 5 mg by mouth Daily. aka: ARICEPT fenofibrate 145 mg tablet Take 145 mg by mouth Daily. aka: TRICOR furosemide 40 mg tablet Take 40 mg by mouth 2 times daily. aka: LASIX HYDROcodone-acetaminophen 5-325 mg per tablet Take 1 tablet by mouth every 6 hours as needed for Pain. aka: NORCO By: Galen Davis Quant: 20 tablet levothyroxine 25 mcg tablet Take 25 mcg by mouth every morning (before breakfast). aka: SYNTHROID, LEVOTHROID terbinafine 1% cream Apply topically 2 times daily. aka: lamISIL traZODone 50 mg tablet Take 50 mg by mouth nightly. aka: DESYREL urea 20% cream Apply topically 2 times daily. aka: CARMOL Discontinued Medications docusate sodium 250 MG capsule aka: COLACE metoprolol succinate 25 mg 24 hr tablet aka: TOPROL-XL I, Galen Davis MD, certify that post hospital mcc care is medically nec essary on a continuing basis for any of the conditions for which he/she received care during this hospitalization. Check one: [x] Skilled [] Intermediate Additional Orders/Instructions: Physician's signature:___Galen Davis 03/21/2016 12:[address] [facility] USE ONLY: [] Admitting orders verbally reviewed with Admitting Physician, modified where appropriate, and approved. Verbal Order from Date: Time: _ RN name: RN signature: [] Admitting orders reviewed, modified where appropriate, and approved. Physician's signature: Date: Time: lan of Care - Ana Villeda i, Neuropathologist-Clinical - 03/21/2016 11:59 AM PDTProblem: Discharge Planning Goal: Patient s discharge needs will be identified in a timely manner Outcome: Improving This CM visited with patient again this am about his discharge plan. Let him know that i s recommending a short SNF stay for rehab prior to returning back home to care of family onc e they return from out of town. Patient requested that this CM call his daughter, Cassandra, and had to leave her a message since she is in flight to [place] today. This CM also called both of his sons, Kris and Rl and Kris was fine with the discharge plan to [facility] and he knew where this was located in [place]. Rl stated he was on his way back from [place] today and will be back in town tomorrow afternoon and both he and his , who own the home patient is living in, will be taking care of him 13/05. He stated someone will be there all the time. Faxed the PT OT eval notes to Matthew, and she confirmed that she would be able to accept pa tient today and transport him there. Let attending MD know and he will examine patient to s ee if he is ready to go today, and will call Matthew back with the OK to arrange transport. Pkt completed for [facility] including the original completed PASRR, and the original scr ipts, including the updated SNF transfer orders that needed more info, and that were faxed t o [facility] per Matthew's request. Confirmation and fax transmissions all placed in the ghost chart. Went to give patient his TOMASZ and he starting talking about not wanting to go to that facili ty. Spent over 30 min talking with him and he with Deyvijane from [facility] and he has decid ed now to go there after she gave him some more information. Let patient and his RN know the transport time would be about 20-30 min away. Patient was also letting his son Chris know t hat he was going there today, although this CM let Chris, Cassandra, and Rl know about his di scharge to [facility] today. Cassandra, RN, [facility], who just arrived in [place], returned her ca ll and she was fine with this SNF rehab plan as well and she stated that he did have the $40 copay to be there at the SNF for a short time. Patient also mentioned this concern to Deyvi lara as well and she smoothed things over with him. T/C to Matthew and she confirmed that the up dated SNF orders got to her and she promised she would be at the door to greet patient when he arrived. T/C to Elma at the [facility], letting her know that patient is being discharged to rehab at [facility] in [place] today. Electronically signed by: Ana Dietrich, LIMEHOUSE WORKER 03/21/2016 15:47 la n of [facility] - Julianna Loja OT - 03/21/2016 11:52 AM PDTProblem: Patient Care Overview (A dult) Goal: Care Team Goals & Evaluation PROBLEM-RELATED GOALS: 1.Will maintain adequate oxygenation via oximetry with SpO2 >92 by 03/21/16. 2.Will maintain airway and adequate ventilation with use of Bipap during sleep. By 03/21/16 3. Heart rhythm will continue to be in NSR with adequate rate control by 03/21/16. 4. Pt will be supervised for his BADLs & functional mobility by 03/27/16. 5. Modified independent in room and morris by 03/26/16 STRATEGY TO ACHIEVE GOALS: 1.Monitor saturations via oximetry every 4 hrs and titrate to order as indicated. 2.Provide noninvasive or mechanical ventilation. Monitor every 4 hours during sleep. 3. Administer medications as ordered. 4. Monitor telemetry. - Participation in therapy sessions - Active participation in all PT interventions - Out of bed for all meals RESTRAINT-RELATED GOALS: STRATEGIES TO ACHIEVE RESTRAINT GOALS: Occupational Therapy Daily Treatment Note Patient Information Patient Name: Johnny Siddiqi Date of : 1935 Age: 80 y.o. Precautions/Limitations: falls Left Lower Extremity Weight-Bearing: full weight-bearing Right Lower Extremity Weight-Bearing: full weight-bearing Start Time: 1050 Stop time: 1130 Time Calculation: 40 minutes Missed Treatment Time: minutes Total Treatment Time: 40 minutes TimedTreatment Code Minutes: 40 minutes Subjective: "I am going to [facility] real soon." Objective: Pt. was approached for OT, and states he had been up and walked with PT a bit ago. He repo rts he had been up to bathroom and had a BM and a sponge bath. Pt. reports he may be going to [place] today. Spoke with personal care aide and she reports she is working with family to get Pt. to SNF before going home with their help. Pt. is agreeable. Pt requesting his l egs be addressed since they are edematous and has venous stasis. Coban wraps applied to (B) LE's in case he is discharged today. If he remains in hosp. then will check wraps tomorro w and redo if needed. Education: importance of wearing his compression socks he has at home once coban wraps are removed. Treatment Provided: LE wraps. Patient Status/Goals Reflects last filed data of patient status; may be from multiple contributors. ADLs Toileting, Level of Stark: minimum assist (75% patient effort), supervision required Toileting Assess/Train, Position: sitting, standing Toileting Assess/Train, Impairments: impaired balance IADLs Therapeutic Exercise Functional Endurance Cognitive Cognitive Tests Bed Mobility Transfers Toilet, Level of Stark: contact guard assist, verbal cues required Wheelchair Mobility Balance ROM Strength STG Goals OT Additional Goal #1: Pt will be supervise for his BADLs. Time to Achieve: 5 days Goal Status: new OT Additional Goal #2: Toilet transfer w/ supervision. Time to Achieve: 5 days Goal Status: new LTG Goals FIM: Assessment: Pt. Was very receptive to having his legs wrapped. He states they hurt him. P t's legs edematous, and he says dark red legs due to venous stasis. Occupational Therapy Anticipated Discharge Needs are: Have the anticipated discharge needs changed? yes - SNF Post discharge occupational therapy recommendation: Ongoing low intensity therapy. Plan for next treatment: 1P. RG. OT to check on coban wraps, and ADLs if able. Electronically signed by: Julianna Loja OT, 03/21/2016 11:48 lan of Care - Co Pamela paz, PT - 03/21/2016 10:00 AM PDTFormatting of this note might be different from t he original. Problem: Patient Care Overview (Adult) Goal: Care Team Goals & Evaluation PROBLEM-RELATED GOALS: 1.Will maintain adequate oxygenation via oximetry with SpO2 >92 by 03/21/16. 2.Will maintain airway and adequate ventilation with use of Bipap during sleep. By 03/21/16 3. Heart rhythm will continue to be in NSR with adequate rate control by 03/21/16. 4. Pt will be supervised for his BADLs & functional mobility by 03/27/16. 5. Modified independent in room and morris by 03/26/16 STRATEGY TO ACHIEVE GOALS: 1.Monitor saturations via oximetry every 4 hrs and titrate to order as indicated. 2.Provide noninvasive or mechanical ventilation. Monitor every 4 hours during sleep. 3. Administer medications as ordered. 4. Monitor telemetry. - Participation in therapy sessions - Active participation in all PT interventions - Out of bed for all meals RESTRAINT-RELATED GOALS: STRATEGIES TO ACHIEVE RESTRAINT GOALS: Outcome: Improving Physical Therapy Acute Initial Evaluation Note Patient Information Patient Name: Johnny Siddiqi Date of : 1935 Age: 80 y.o. History Encounter Diagnoses Code Name Primary? I50.33 Acute on chronic diastolic (congestive) heart failure (HCC) Yes I48.1 Persistent atrial fibrillation (HCC) Z95.2 H/O aortic valve replacement H91.90 Hard of hearing, unspecified laterality G47.33 CRUZITO (obstructive sleep apnea) I27.2 Pulmonary HTN (HCC) I87.8 Venous stasis of both lower extremities I48.91 Atrial fibrillation with RVR (HCC) I48.0 Paroxysmal atrial fibrillation (HCC) Date of Onset: 03/16/16 Past Medical History Diagnosis Date H/O aortic valve replacement 2004 [facility] AVR INR goal is 2-3, surgery done at [facility] Hypertension Liver cirrhosis (HCC) CVA (cerebral infarction) -2014 lacunar (not stated as new nor old) Dementia Alcoholic cirrhosis (HCC) 2003 CT scan 2003 at [facility] Endocarditis 2009 Enterococcus 6 weeks Amp + Gent PSA elevation 2008 Pt declined Bx then Peripheral vertigo 2012 BPPV left Venous ulcer (HCC) 2013 Leg Retinal detachment 2010 CAD (coronary artery disease) 2005 Had CABG to LAD (for 80-90% LAD) surgery done at [facility] Pulmonary HTN (HCC) Severe on Echo 2013 Diastolic CHF (HCC) Echo 2013 EF 68, ascites, pulm HTN Over-anticoagulated 04/01/2015 Past Surgical History Procedure Laterality Date Cardiac surgery [facility] AV[facility] Allergies Allergen Reactions Latex Rash Precautions/Limitations: falls Left Lower Extremity Weight-Bearing: full weight-bearing Right Lower Extremity Weight-Bearing: full weight-bearing EVALUATION: SUBJECTIVE: History of Presenting Problem: Johnny Siddiqi is a 80 y.o. who presents to therapy for mobility limitations s/p diastolic dysfunction and inability to control HR. Pt transfer red here following 5 day stay at [facility]. he has a hx of CAD, aortic valve replacement and prior admission and ED visits for uncontrolled a fib/futter. Echo showed good EF w/ dis tolic dysfxn and moderate pulmonary htn. EDG confirms a fib PT Diagnosis: Impaired mobility Impairments Found: aerobic capacity/endurance, gait, locomotion, and balance, ergonomics an d body mechanics Previous Level of Function: Ambulation: 1-->assistive equipment (cane) Transferrin-->assistive equipment Toiletin-->independent Bathin-->independent Dressin-->independent Eatin-->independent Communication: 0-->understands/communicates without difficulty Swallowin-->swallows foods/liquids without difficulty Role/Relationships: Role Relationships Comment: Son, but not available or much assistance Living Environment/Accessibility: Lives With: alone Living Arrangements: house Home Accessibility: ramps present at home Transportation Available: car Living Environment Comment: Cane, 4-wheeled scooter, shower seat. Walk-in shower Patient s Goals: Want to be able to go home. OBJECTIVE : Patient Status/Goals: Reflects last filed data of patient status; may be from multiple contributors. Gait Level of Stark : contact guard assist Assistive Device: cane (straight, single point) Distance (feet): 100 Impairments: impaired balance, strength decreased, postural control impaired Transfers Sit-Stand, Level of Stark: contact guard assist, verbal cues required Stand-Sit, Level of Stark: verbal cues required, contact guard assist [id number], Assistive Device: cane (straight, single point) Impairments: impaired balance, strength decreased, postural control impaired Bed Mobility Assistive Device: bed rails Supine to Sit, Level of Stark: minimum assist (75% patient effort) Sit to Supine, Level of Stark: minimum assist (75% patient effort) Impairments: impaired balance, strength decreased Balance Sitting Balance: Static: normal balance Sitting Balance: Dynamic: good balance Standing Balance: Static: (Good-) Standing Balance: Dynamic: (Fair+) ROM BLE functional Strength L LE Strength: 4/5 R LE Strength: 4/5 Trunk strength: 4-/5 STG GOALS Bed Mobility Goal, Activity Type: all bed mobility activities Stark Level: modified independence Assistive Device: bed rails Time to Achieve: 5 - 7 days Goal Status: new, progressing toward goal Transfer Training Goal, Activity Type: sit to stand/stand to sit Stark Level: modified independence Assistive Device: cane (straight, single point) Time to Achieve: 5 - 7 days Goal Status: new, progressing toward goal Gait Training Goal, Stark Level: modified independence Assistive Device: cane (straight, single point) Distance: 150 Time to Achieve: 5 - 7 days Goal Status: new, progressing toward goal Assessment: Physical therapy orders received and acknowledged. Objective impairments inclu de balance, strength and activity tolerance. These impairments are causing functional limita tions with patient s inability to mobilize at a level necessary for safe home discharge. C omplexities contributing to the need for skilled therapy include complex medical hx. Rehabilitation potential: Patient demonstrates good potential to achieve established goals to address the documented impairments by participating in skilled physical therapy services . PLAN: bed mobility training, gait training, strengthening, transfer training Physical Therapy will follow Johnny Siddiqi 5 times/wk until discharge from therapy or dischar ged from the hospital. Anticipated days that therapy will be provided: 03/26/16 Physical Therapy Anticipated Discharge Needs: Ongoing PT services required. DC disposition TBD. Post discharge physical therapy recommendation: ongoing low intensity therapy Equipment Recommendations: (Possible FWW) Patient and/or family has indicated understanding of treatment needs and actively participa johnny in the creation of this plan for care. Today's Treatment Start Time: 914 Stop time: 954 Time Calculation: 40 minutes Missed Treatment Time: minutes Total Treatment Time: 40 minutes TimedTreatment Code Minutes: 30 minutes Objective: Treatment Provided: PT eval completed. Pt also participated in bed mob, transfers and gait (see above for details). Pt returned to bed side chair w/ all needs w/in reach. Education: Role of PT, safety w/ mobility Assessment: Pt demonstrating progress toward functional goals however is limited by signifi cant decline in functional activity tolerance following [facility] and [facility]. He was able to perform transfers and gait w/ only light CGA however req uired assist for bed mob. He also is hampered by need for supplemental o2, placing him at in creased risk of falls from O2 tubing which is not something he is accustomed to. He also has dyn standing instabiltiy and would benefit from use of FWW however per pt, his house will n ot allow use of FWW d/t space limitation therefor he will need to be safe w/ the cane prior to home discharge. Pt will likely benefit from short term placement in SNF rehab to promote return to PLOF and allow for safe return to prior living environment as he lives alone. Plan for next treatment: 5x/wk, LKC, 1P, progressive functional safety and independence Electronically signed by: Pamela Woodson PT, 03/21/2016 10:31 : lan of Care - Sumeet Philip RRT - 03/21/2016 5:43 AM PDTProblem: Patient Care Overview (Adult) Goal: Care Team Goals & Evaluation PROBLEM-RELATED GOALS: 1.Will maintain adequate oxygenation via oximetry with SpO2 >92 by 03/21/16. 2.Will maintain airway and adequate ventilation with use of Bipap during sleep. By 03/21/16 3. Heart rhythm will continue to be in NSR with adequate rate control by 03/21/16. 4. Pt will be supervised for his BADLs & functional mobility by 03/27/16. STRATEGY TO ACHIEVE GOALS: 1.Monitor saturations via oximetry every 4 hrs and titrate to order as indicated. 2.Provide noninvasive or mechanical ventilation. Monitor every 4 hours during sleep. 3. Administer medications as ordered. 4. Monitor telemetry. - Participation in therapy sessions RESTRAINT-RELATED GOALS: STRATEGIES TO ACHIEVE RESTRAINT GOALS: Outcome: Unchanged Goal Evaluation: Pt is declining use of BiPAP at night. His SpO2 is stable on 1 lpm o2. lan of [facility] - Lynnette Gallego RN - 03/21/2016 5:01 AM PDTProblem: Patient Care Overview (Adult) Goal: Care Team Goals & Evaluation PROBLEM-RELATED GOALS: 1.Will maintain adequate oxygenation via oximetry with SpO2 >92 by 03/21/16. 2.Will maintain airway and adequate ventilation with use of Bipap during sleep. By 03/21/16 3. Heart rhythm will continue to be in NSR with adequate rate control by 03/21/16. 4. Pt will be supervised for his BADLs & functional mobility by 03/27/16. STRATEGY TO ACHIEVE GOALS: 1.Monitor saturations via oximetry every 4 hrs and titrate to order as indicated. 2.Provide noninvasive or mechanical ventilation. Monitor every 4 hours during sleep. 3. Administer medications as ordered. 4. Monitor telemetry. - Participation in therapy sessions RESTRAINT-RELATED GOALS: STRATEGIES TO ACHIEVE RESTRAINT GOALS: Outcome: Improving Goal Evaluation: Continues to be in NSR with LBBB, frequent PVCs, bigeminy . On amiodarone PO. HR 70s-80s. VSS. AAOx3, forgetful at times but not impulsive. Up to bathroom with FWW to void. SBA. lan of [facility] - Jacqueline Neal OT - 03/20/2016 5:37 PM PDTFormatting of this note might be different fr om the original. Problem: Patient Care Overview (Adult) Goal: Care Team Goals & Evaluation PROBLEM-RELATED GOALS: 1.Will maintain adequate oxygenation via oximetry with SpO2 >92 by 03/21/16. 2.Will maintain airway and adequate ventilation with use of Bipap during sleep. By 03/21/16 3. Heart rhythm will continue to be in NSR with adequate rate control by 03/21/16. 4. Pt will be supervised for his BADLs & functional mobility by 03/27/16. STRATEGY TO ACHIEVE GOALS: 1.Monitor saturations via oximetry every 4 hrs and titrate to order as indicated. 2.Provide noninvasive or mechanical ventilation. Monitor every 4 hours during sleep. 3. Administer medications as ordered. 4. Monitor telemetry. - Participation in therapy sessions RESTRAINT-RELATED GOALS: STRATEGIES TO ACHIEVE RESTRAINT GOALS: Occupational Therapy Acute Initial Evaluation Note Patient Information Patient Name: Johnny Siddiqi Date of : 1935 Age: 80 y.o. History Encounter Diagnoses Code Name Primary? I50.33 Acute on chronic diastolic (congestive) heart failure (HCC) Yes I48.1 Persistent atrial fibrillation (HCC) Z95.2 H/O aortic valve replacement H91.90 Hard of hearing, unspecified laterality G47.33 CRUZITO (obstructive sleep apnea) I27.2 Pulmonary HTN (HCC) I87.8 Venous stasis of both lower extremities I48.91 Atrial fibrillation with RVR (HCC) I48.0 Paroxysmal atrial fibrillation (HCC) Date of Onset: 03/16/16 Past Medical History Diagnosis Date H/O aortic valve replacement 2004 [facility] AVR INR goal is 2-3, surgery done at [facility] Hypertension Liver cirrhosis (HCC) CVA (cerebral infarction) 3-2014 lacunar (not stated as new nor old) Dementia Alcoholic cirrhosis (HCC) 2004 CT scan 2004 at [facility] Endocarditis 2009 Enterococcus 6 weeks Amp + Gent PSA elevation 2009 Pt declined Bx then Peripheral vertigo 2012 BPPV left Venous ulcer (HCC) 2013 Leg Retinal detachment 2010 CAD (coronary artery disease) 2005 Had CABG to LAD (for 80-90% LAD) surgery done at [facility] Pulmonary HTN (HCC) Severe on Echo 2013 Diastolic CHF (HCC) Echo 2014 EF 68, ascites, pulm HTN Over-anticoagulated 04/01/2015 Past Surgical History Procedure Laterality Date [facility]iac surgery [facility] AVR Allergies Allergen Reactions Latex Rash Precautions/Limitations: falls Evaluation SUBJECTIVE: History of Presenting Problem: Johnny Siddiqi is a 80 y.o. who presents to therapy for Transfer from [facility] following a 5 day hospital stay w/ diastolic dysfunction & inability to control HR. Pt w/ A-fib w/ RVR. Patient is right handed. OT Diagnosis: Impaired ADLs, decreased functional mobility, decreased safety awareness Previous Level of Function: Per pt report, independent in his home. Ambulated w/ a cane, h as 4-wheeled scooter outdoors sometimes. Role/Relationships: Son reportedly returning from [place] to help him? Living Environment/Accessibility: Lives With: alone Living Arrangements: house Home Accessibility: ramps present at home Transportation Available: car Living Environment Comment: Cane, 4-wheeled scooter, shower seat. Walk-in shower Patient s Goals: Wants to go home, but not sure he should be by himself. OT Visit Summary: Pt seen for OT evaluation. Pt alert & oriented to place, situation, christianne e w/ prompts. UE ROM/strength WFL for his current level of activities. Sit-stand w/ light CGA. Ambulated w/ CGA, slow gait, shortened stride and slightly stooped posture. Allows FWW too far forward of him, cues to stay within. Toilet transfer as noted below. Assisted in hygiene as he had some loose BM and for thoroughness. Returned to chair @ bedside. LEs fib rotic distally R>L, 1+ pitting edema, purplish in color. Skin dry & peeling in places. The re is an scabbed, open area on the L lateral lower leg, uncertain if it is being treated. P t may benefit from compression wrapping to alleviate some edema & fibrosis. Occupational Therapy will follow Johnny Siddiqi (3-4 OT addt'l OT visits) until discharge [facility] therapy or discharged from the hospital. Occupational Therapy Anticipated Discharge Needs: Ongoing occupational therapy required. DC disposition TBD. Post discharge occupational therapy recommendation: TBD- likelihood he would benefit from assist in the home Equipment Recommendations: (TBD) Identified Problems Needing Skilled Intervention: Impaired ADLs, decreased functional mob ility, decreased safety awareness, arousal, attention, and cognition, ergonomics and body me chanics Planned Interventions:Planned Therapy Interventions: ADL retraining, bed mobility training, transfer training, balance training (Compression wrapping if indicated) Patient Status/Goals Reflects last filed data of patient status; may be from multiple contributors. ADLs Toileting, Level of Stark: minimum assist (75% patient effort), supervision required Toileting Assess/Train, Position: sitting, standing Toileting Assess/Train, Impairments: impaired balance Transfers Toilet, Level of Stark: contact guard assist, verbal cues required STG Goals OT Additional Goal #1: Pt will be supervise for his BADLs. Time to Achieve: 5 days Goal Status: new OT Additional Goal #2: Toilet transfer w/ supervision. Time to Achieve: 5 days Goal Status: new Demonstrates need for referral to other service: Case mgmt/ Discharge planning Assessment: Occupational therapy orders received and acknowledged. Objective impairments i nclude impaired ADLs, decreased functional mobility, decreased safety awareness. These impai rments are causing functional limitations with patient s inability to safely & independent ly complete adls/fxl mobility. Complexities contributing to the need for skilled therapy inc lude age; lives alone; prolonged hospitalization. Prognosis: good, to achieve stated therapy goals Patient and/or family has indicated understanding of treatment needs and actively participa johnny in the creation of this plan for care. Today's Treatment Start Time: 1425 Stop time: 1500 Time Calculation: 35 minutes Missed Treatment Time: minutes Total Treatment Time: 35 minutes TimedTreatment Code Minutes: 20 minutes Objective: Pt seen for OT evaluation. Please see above for addt'l info on status & outcom e. Education: OT POC; safety; increasing activity Treatment Provided: ADL training; functional mobility; safety awareness Assessment: Considering pt's length of hospitalization, he tolerated activity w/ very limit ed fatigue. Light CGA w/ ambulation and tendency to stoop from FWW but can correct w/ cues. Question is pt able to live alone safely. Overall, generalized deconditioning that should respond to increased upright activity & ambulation w/ staff. Plan for next treatment: ROBIN Ya.ADLs,standing @ sink,determine if wraps indicated Electronically signed by: Jacqueline Wallace OT, 03/20/2016 17:32 lan of Care - Yodit Butler RRT - 03/20/2016 5:14 PM PDTProblem: Patient Care Overview (Adult) Goal: Care Team Goals & Evaluation PROBLEM-RELATED GOALS: 1.Will maintain adequate oxygenation via oximetry with SpO2 >92 by 03/21/16. 2.Will maintain airway and adequate ventilation with use of Bipap during sleep. By 03/21/16 3. Heart rhythm will continue to be in NSR with adequate rate control by 03/21/16. STRATEGY TO ACHIEVE GOALS: 1.Monitor saturations via oximetry every 4 hrs and titrate to order as indicated. 2.Provide noninvasive or mechanical ventilation. Monitor every 4 hours during sleep. 3. Administer medications as ordered. 4. Monitor telemetry. RESTRAINT-RELATED GOALS: STRATEGIES TO ACHIEVE RESTRAINT GOALS: Outcome: Improving Goal Evaluation: Patient is compliant with wearing Bipap at night. He is on room air with bipap and he has been on room air most of his stay. I did find that nursing had placed him on 1 lpm O2 this morning after he woke up and the bipap was removed. No other respiratory needs identified . lan of [facility] - Ana Dietrich, Neuropathologist-Clinical - 03/20/2016 4:15 PM PDTProblem: Discharge Planning Goal: Patient will be discharged in a safe manner Outcome: Improving This CM received call from KORINA Garcia, from his Family Care Medicare, O, and she stated t hat patient would probably have to be here this admission under his Medicare benefits and th at she could approve some PT for him at home if needed, if he did not wish to go to a SNF. Met with patient again this AM, and he reports that he is still wanting to go back home at discharge and that his son, who owns the home he is living in, is going to be returning home some time this week, since there were some issues, and he has not been able to get back yet . As documented earlier, in CM notes, this patient is agreeable to have some HH come out thru [facility] at discharge, as well as some PT OT if needed. He is also agreeable to a or SNF stay if not safe to be home alone, if his son does not arrive prior to his discharge . This CM also made a call and spoke to Padmini at the [facility] to let her know that patient is here; that they were already gone by the time this CM could call on Saturday regarding this nyla elkins's admission. Padmini stated that per documentation, patient was sent to [facility] onitoring, and that this is different than being seen at a [place] facility and then being referr ed to a hospital, thus, his stay will not be covered by the [place]. She confirmed that patient is not service connected. His PCP is Emelina Robertson now. Adm itting was called to change this in his chart. His stay was also changed to his Family Care Medicare benefits this am. PT OT eval and treat were ordered today, so will see what they recommend for this patient's safety at discharge. Patient also does not use any home 02 so may need this at discharge as well for night time use. CM continue to follow until discharge. Sticky note left for attending MD requesting a HH Referral order for RN PT OT and possibly home 02 referral order if needed, if able to go home.Electronically signed by: Ana Dietrich LIMEHOUSE WORKER 03/20/2016 16:15 Faxed initial SNF referral and face sheet to [facility] # [id number], [phone], and called Matthew, to let her know that this referral was on its way as a plan B. Since nyla elkins lives in [place], he signed the preference form for [facility] for his rell rt term rehab there and placed signed form in ghost chart. Electronically signed by: Ana Dietrich LIMEHOUSE WORKER 03/20/2016 16:31 la n of Care - Emily Medel Chaplain - 03/20/2016 11:30 AM PDTProblem: Spiritual Distr ess, Risk/Actual (Adult,Obstetrics,Pediatric) Goal: Spiritual Well-being Patient will demonstrate the desired outcomes by discharge/transition of care. Spiritual Care Johnny Siddiqi is a 80 y.o. male who is admitted for A-fib ([facility]) [I48.91]. Ceo visit was part of routine rounding. Spiritual Evaluation: Patient was sitting in a chair. He engaged actively in conversation and spoke of his family and life events. He exhibited some forgetfulness and confusion at times. He has 4 sons and 2 daughters. He spoke of care he received from one daughter, who is an RN. He shared that "o nly the good Lord knows what's ahead." He expressed acceptance of his current condition. Spiritual Interventions: Ceo listened actively as patient was engaged in conversation. Ceo also affirmed h is confidence in God's sovereignty and care. Spiritual Outcomes: Patient expressed appreciation for the delivery architect visit. Spiritual Goals/Follow up: Ceo will visit patient as needed or requested. If any additional spiritual issues seamus e, please contact the delivery architect. lan of Care - Lynnette Bella RN - 03/20/2016 5:31 AM PDTProblem: Patient Care Overview (Adult ) Goal: Care Team Goals & Evaluation PROBLEM-RELATED GOALS: 1.Will maintain adequate oxygenation via oximetry with SpO2 >92 by 03/21/16. 2.Will maintain airway and adequate ventilation with use of Bipap during sleep. By 03/21/16 3. Heart rhythm will continue to be in NSR with adequate rate control by 03/21/16. STRATEGY TO ACHIEVE GOALS: 1.Monitor saturations via oximetry every 4 hrs and titrate to order as indicated. 2.Provide noninvasive or mechanical ventilation. Monitor every 4 hours during sleep. 3. Administer medications as ordered. 4. Monitor telemetry. RESTRAINT-RELATED GOALS: STRATEGIES TO ACHIEVE RESTRAINT GOALS: Outcome: Unchanged Goal Evaluation: AAOx3, forgetful at times. Continues to be in NSR with LBBB, frequent PVCs and occasional missed beats. On amiodarone PO. HR 70s-80s. VSS. Elaine with adequate output. Slept well during the night. lan of Care - Maria Antonia Marquez RRT - 03/19/2016 9:47 PM PDTProblem: Patient Care Overview (Adult) Goal: Care Team Goals & Evaluation PROBLEM-RELATED GOALS: 1.Will maintain adequate oxygenation via oximetry with SpO2 >92 by 03/21/16. 2.Will maintain airway and adequate ventilation with use of Bipap during sleep. By 03/21/16 STRATEGY TO ACHIEVE GOALS: 1.Monitor saturations via oximetry every 4 hrs and titrate to order as indicated. 2.Provide noninvasive or mechanical ventilation. Monitor every 4 hours during sleep. RESTRAINT-RELATED GOALS: STRATEGIES TO ACHIEVE RESTRAINT GOALS: Goal Evaluation: BiPAP, auto titrating Equipment Type: resmed Method Of Delivery: medium nasal mask . Patie nt Tolerance: tolerated well lan of Care - Maria Antonia Walden RRT - 03/19/2016 6:37 PM PDTProblem: Patient Care Overview (Adult) Goal: Care Team Goals & Evaluation PROBLEM-RELATED GOALS: 1.Will maintain adequate oxygenation via oximetry with SpO2 >92 by 03/21/16. 2.Will maintain airway and adequate ventilation with use of Bipap during sleep. By 03/21/16 STRATEGY TO ACHIEVE GOALS: 1.Monitor saturations via oximetry every 4 hrs and titrate to order as indicated. 2.Provide noninvasive or mechanical ventilation. Monitor every 4 hours during sleep. RESTRAINT-RELATED GOALS: STRATEGIES TO ACHIEVE RESTRAINT GOALS: Goal Evaluation: Pt is on room air with a SpO2 of 97 % and a heart rate of 81. Successfully weaned to room air today after cardioversion Refuses bipap lan of Care - Martha Caldera RN - 03/19/2016 6:28 PM PDTProblem: Patient Care Overview (Adult) Goal: Care Team Goals & Evaluation PROBLEM-RELATED GOALS: 1.Will maintain adequate oxygenation via oximetry with SpO2 >92 by 03/21/16. 2.Will maintain airway and adequate ventilation with use of Bipap during sleep. STRATEGY TO ACHIEVE GOALS: 1.Monitor saturations via oximetry every 4 hrs and titrate to order as indicated. 2.Provide noninvasive or mechanical ventilation. Monitor every 4 hours during sleep. RESTRAINT-RELATED GOALS: STRATEGIES TO ACHIEVE RESTRAINT GOALS: Outcome: Improving Goal Evaluation: Pt denies pain or discomfort. Pt was in a-fib in the 's to 130's this am. Pt was cardi overted and now HR is 70's and 80's sinus rhythm. Pt up to chair with 1 person assist. Pt gonzalez d a large BM. Spo2 97% on 2 L. Pt's oxygen sats dropped to 85-88 percent when sleeping. lan of Care - Arun Nicole RN - 03/19/2016 7:39 AM PDTProblem: Patient Care Overview (Adult) Goal: Personalization Needs & Preferences Outcome: Improving Admit from [facility] 03/16 for uncontrolled afib/flutter. Started Amiodarone gtt. HR now in the 80's but still in A.Flutter and up to 130s occ. On 2 L O2. VSS. A&O (can have confus ion at times, early dementia). Elaine gaby, calls roxy lan of Care - Maria Antonia Bullard RRT - 03/18/2016 7:04 PM PDT Problem: Patient Care Overview (Adult) Goal: Care Team Goals & Evaluation PROBLEM-RELATED GOALS: 1.Will maintain adequate oxygenation via oximetry with SpO2 >92 by 03/21/16. 2.Will maintain airway and adequate ventilation with use of Bipap during sleep. STRATEGY TO ACHIEVE GOALS: 1.Monitor saturations via oximetry every 4 hrs and titrate to order as indicated. 2.Provide noninvasive or mechanical ventilation. Monitor every 4 hours during sleep. RESTRAINT-RELATED GOALS: STRATEGIES TO ACHIEVE RESTRAINT GOALS: Goal Evaluation: Pt is on 2 L/min nasal cannula with a SpO2 of 96 % and a heart rate of 81. . Pt has a good , nonproductive cough. Severity Score Class Severity Score 0-4 ITEM 0 1 2 3 4 2 Respiratory History No Smoking history Current tobacco use Up to 10 Pack year history. Simple home regimen Known Pulmonary Disease 20 pack year history Complex Home regimen 30+ pack year history Severe Pulmonary Disease or exacerbation 0 Surgery Status (current admission) No surgery Minor surgery Lower abdominal rib fractures Thoracic or uppe r abdominal Thoracic with pulmonary disease or Central Nervous System 0 Chest X-RAY Clear or Normal baseline Unavailable Improving/clearing Abnormal, Unilateral or mild Infiltrates or atelectasis, Chronic changes Infiltrates mild bilateral or unilateral or pleural effusions extensive Inf iltrates, atelectasis or pleural effusions, pneumothorax 0 Respiratory Pattern Regular pattern Respiratory Rate:8-20 Increased Respiratory Rate, labored Dyspnea on exertion, irregular pattern Use of accessory muscles, prolonged expirato ry phase nasal flaring Severe Dyspnea , Purse Lip Breathing, Use of accessory muscles 0 Breath Sounds Clear Diminished unilaterally Diminished bilaterally &/or crackles Wheezing or Rhonchi &/or absent unilateral Absent bilaterally 0 Cough Strong, non productive Moderate, loose, productive Weak, non-productive Weak, ineffective Non-spontaneous or may require suctioning 0 Sputum None Scant / Thin White/clear Moderate Beige/ yellow Large / Thick Dark Green/Brown Copious / Plugs Hemoptysis shawn 0 LOC Alert, oriented, cooperative Disoriented, follows commands Obtunded, arousable, follo ws commands Obtunded, uncooperative, sedated Comatose 1 Oxygen Demand Room air Baseline 1-2 liters 3-6 liters >7 Liters Oxymizer to > 55% 60% or greater Total Severity Score (SS) Class 0-3 1 4-7 2 8-11 3 12-14 4 15+ 5 senior compliance analyst score 3 No further interventions this shift lan of [facility] - Arun Mak RN - 03/18/2016 7:20 AM PDTProblem: Patient Care Overview (Adult) Goal: Personalization Needs & Preferences Outcome: Unchanged Admit from [facility] 03/16 for uncontrolled afib/flutter. PO dilt, still in A.Flutter bu t rates have been 80's-123s. On 2 L O2. VSS. A&O (can have confusion at times, early hayden lowe, calls roxy lan of [facility] - Donato Reid RRT - 03/18/2016 12:27 AM PDTProblem: Patient Care Overview (Adult) Goal: Care Team Goals & Evaluation PROBLEM-RELATED GOALS: 1.Will maintain adequate oxygenation via oximetry with SpO2 >92 by 03/21/16. 2.Will maintain airway and adequate ventilation with use of Bipap during sleep. STRATEGY TO ACHIEVE GOALS: 1.Monitor saturations via oximetry every 4 hrs and titrate to order as indicated. 2.Provide noninvasive or mechanical ventilation. Monitor every 4 hours during sleep. RESTRAINT-RELATED GOALS: STRATEGIES TO ACHIEVE RESTRAINT GOALS: Goal Evaluation: Pt requested not to sleep with bipap tonight, felt like he slept fine on 2L O2. lan of Care - Aleah, Maria Antonia Joya CLINICAL APPEALS RN - 03/17/2016 7:04 PM PDT Problem: Patient Care Overview (Adult) Goal: Care Team Goals & Evaluation PROBLEM-RELATED GOALS: 1.Will maintain adequate oxygenation via oximetry with SpO2 >92 by 03/21/16. 2.Will maintain airway and adequate ventilation with use of Bipap during sleep. STRATEGY TO ACHIEVE GOALS: 1.Monitor saturations via oximetry every 4 hrs and titrate to order as indicated. 2.Provide noninvasive or mechanical ventilation. Monitor every 4 hours during sleep. RESTRAINT-RELATED GOALS: STRATEGIES TO ACHIEVE RESTRAINT GOALS: Goal Eval Severity Score Class Severity Score 0-4 ITEM 0 1 2 3 4 0 Respiratory History No Smoking history Current tobacco use Up to 10 Pack year history. Simple home regimen Known Pulmonary Disease 20 pack year history Complex Home regimen 30+ pack year history Severe Pulmonary Disease or exacerbation 0 Surgery Status (current admission) No surgery Minor surgery Lower abdominal rib fractures Thoracic or uppe r abdominal Thoracic with pulmonary disease or Central Nervous System 2 Chest X-RAY Clear or Normal baseline Unavailable Improving/clearing Abnormal, Unilateral or mild Infiltrates or atelectasis, Chronic changes Infiltrates mild bilateral or unilateral or pleural effusions extensive Inf iltrates, atelectasis or pleural effusions, pneumothorax 0 Respiratory Pattern Regular pattern Respiratory Rate:8-20 Increased Respiratory Rate, labored Dyspnea on exertion, irregular pattern Use of accessory muscles, prolonged expirato ry phase nasal flaring Severe Dyspnea , Purse Lip Breathing, Use of accessory muscles 2 Breath Sounds Clear Diminished unilaterally Diminished bilaterally &/or crackles Wheezing or Rhonchi &/or absent unilateral Absent bilaterally 0 Cough Strong, non productive Moderate, loose, productive Weak, non-productive Weak, ineffective Non-spontaneous or may require suctioning 0 Sputum None Scant / Thin White/clear Moderate Beige/ yellow Large / Thick Dark Green/Brown Copious / Plugs Hemoptysis shawn 0 LOC Alert, oriented, cooperative Disoriented, follows commands Obtunded, arousable, follo ws commands Obtunded, uncooperative, sedated Comatose 1 Oxygen Demand Room air Baseline 1-2 liters 3-6 liters >7 Liters Oxymizer to > 55% 60% or greater Total Severity Score (SS) Class 0-3 1 4-7 2 8-11 3 12-14 4 15+ 5 Pt is on 2 L/min nasal cannula with a SpO2 of 94 % and a heart rate of 89. Pt has a good, productive cough. lan of [facility] - Arun Nicole RN - 03/17/2016 7:50 AM PDTProblem: Patient Care Overview (Adult) Goal: Personalization Needs & Preferences Outcome: Improving from [facility] 03/16 for uncontrolled afib. Was there since 03/12 for CHF exacerbation an d afib.Has stage III kidney disease. Hx of CABG. Alert but confused, diltiazem gtt at 5mg/hr , was off for a while, remains A-flutter mostly 70s-80s but 130s with activity, o2 2L, sats 90s, trop 0.05-0.06, VSS, not impulsive lan of [facility] - Jp Sampson RRT - 03/16/2016 5:50 PM PDTFormatting of this note might be different from e original. Problem: Patient Care Overview (Adult) Goal: Personalization Needs & Preferences Outcome: Unchanged Pt's lung sounds are clear anteriorly and dim laterally. Doesn't like the cpap he had in e past, but is willing to try ours. SpO2: 94 % on 2liters/minute nasal cannula. Severity Score 8 Class 3 Severity Score 0-4 ITEM 0 1 2 3 4 0 Respiratory History No Smoking history Current tobacco use Up to 10 Pack year history. Simple home regimen Known Pulmonary Disease 20 pack year history Complex Home regimen 30+ pack year history Severe Pulmonary Disease or exacerbation 0 Surgery Status (current admission) No surgery Minor surgery Lower abdominal rib fractures Thoracic or uppe r abdominal Thoracic with pulmonary disease or Central Nervous System 2 Chest X-RAY Clear or Normal baseline Unavailable Improving/clearing Abnormal, Unilateral or mild Infiltrates or atelectasis, Chronic changes Infiltrates mild bilateral or unilateral or pleural effusions extensive Inf iltrates, atelectasis or pleural effusions, pneumothorax 0 Respiratory Pattern Regular pattern Respiratory Rate:8-20 Increased Respiratory Rate, labored Dyspnea on exertion, irregular pattern Use of accessory muscles, prolonged expirato ry phase nasal flaring Severe Dyspnea , Purse Lip Breathing, Use of accessory muscles 2 Breath Sounds Clear Diminished unilaterally Diminished bilaterally &/or crackles Whee zing or Rhonchi &/or absent unilateral Absent bilaterally 1 Cough Strong, non productive Moderate, loose, productive Weak, non-productive Weak, ineffective Non-spontaneous or may require suctioning 2 Sputum None Scant / Thin White/clear Moderate Beige/ yellow Large / Thick Dark Green/Brown Copious / Plugs Hemoptysis shawn 0 LOC Alert, oriented, cooperative Disoriented, follows commands Obtunded, arousable, f ollows commands Obtunded, uncooperative, sedated Comatose 1 Oxygen Demand Room air Baseline 1-2 liters 3-6 liters >7 Liters Oxymizer to > 55% 60% or greater Total Severity Score (SS) Class 0-3 1 4-7 2 8-11 3 12-14 4 15+ 5 lan of Care - Ana Villeda i, Neuropathologist-Clinical - 03/16/2016 5:50 PM PDTProblem: Discharge Planning Goal: Patient s discharge needs will be identified in a timely manner Outcome: Unchanged This CM met with patient, his [id number], and his son(also named Johnny Siddiqi) in room to discuss his discharge plans. He reports that he lives in his youngest son's house alone right now since his son works aw ay from home, but will be coming home on Saturday, per his older brother Johnny, since he n o longer has a job. His son's small house is in [place], [place]. The [facility] took his refuse driver's license away from him so Johnny takes him around wherever he n eeds to go. His new [facility] DrJosefinais Emelina Robertson since Dr. Goldberg retired. Patient does have Medicare Family Care Advantage now and reports that he does not have Medi care B only A and Veterans insurance. Both he and his son stated that the [facility] where he has also be en there since Saturday night as an inpatient. He uses the [facility] mail order for his termite helper meds and also [facility] for some of the shorter term meds. He has a little doggie that keeps him company too at home. He has a power scooter that he uses outside since the house is too small. He uses a cane in side the house. He has a daughter, Fiordaliza, who is an RN that lives in [place] and she will be coming to visit him tomorrow, Saturday to visit. Prior to this hospitalization, he did not use a CPAP or home 02. He reports that some Home Health has been set up thru the [facility] but they did not even make it to his house yet before he landed in the hospital again. He was told they were going to come 3 times weekly. The [facility] was already closed so could not verify any information with them regarding his Call Loopi ce connection, and other support that he has thru them. He reports that he used to use a CPAP years ago for about 6 months but could not tolerate i t so quit using it. This CM spoke with the son outside of the room and he stated that Dr. Goldberg thought that his father may have some Alzheimer's and dementia. Did not see this documented in the H&P h ere. This patient did have a tendency to repeat things as his son confirmed this as well. Johnny stated that he is also starting to have paranoia and has accused Johnny of stealing money from his wallet today. Sticky note left for RN's requesting to put patient's wallet into the safe, since Johnny is not going to touch his wallet again. Patient has a walk in shower with a shower chair and hand held shower head but no grab bars . So far he has been able to be independent with his ADL's without any trouble and no falls, confirmed by Johnny, his son. There is no POA set up in the family, but there are 2 RN sisters in the family, one of guera lang is coming over from [place] tomorrow. Talked with patient about a plan B since he want's to go straight home with HH from here. Grzegorz ac was not against going to a SNF if needed but wanted to wait later to see if he would need this after he is up walking with PT. Sticky note left for attending MD requesting a PT, OT e franky and treat to make sure patient will be safe to go back home. Johnny, the son, will be his transport back home. CM will need to contact [place] to see what services he is connected with once they are open aga in. Patient was talking about [facility] being set up, but need to confirm this information, since there may be some dementia.Electronically signed by: Ana Dietrich LIMEHOUSE WORKER 03/16/2016 17: 50 [facility] umented in this encounter Plan of Treatment +--------+ + + + + | Date | Type | Specialty | Care Team | Description | +--------+ + + + + | 07/20/ | Implant | Cardiology | Cruzito Bird, | Remote Device | | 2019 | Monitor | | [address] [facility] | Interrogation | | | | | 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 | + +--------+ + + + | CBC WITH | Routin | 03/21/2016 | | Results for this | | DIFFERENTIAL | e | 4:11 AM | | procedure are in the | | | | PDT | | results section. | + +--------+ + + + | BASIC METABOLIC | Routin | 03/21/2016 | | Results for this | | PANEL | e | 4:11 AM | | procedure are in the | | | | PDT | | results section. | + +--------+ + + + | SLIDE REVIEW, | Routin | 03/20/2016 | | Results for this | | PERIPHERAL SMEAR | e | 5:23 AM | | procedure are in the | | | | PDT | | results section. | + +--------+ + + + | PROTIME INR | Routin | 03/20/2016 | | Results for this | | | e | 5:23 AM | | procedure are in the | | | | PDT | | results section. | + +--------+ + + + | CBC WITH | Routin | 03/20/2016 | | Results for this | | DIFFERENTIAL | e | 5:23 AM | | procedure are in the | | | | PDT | | results section. | + +--------+ + + + | B TYPE NATRIURETIC | Routin | 03/20/2016 | | Results for this | | PEPTIDE | e | 5:23 AM | | procedure are in the | | | | PDT | | results section. | + +--------+ + + + | BASIC METABOLIC | Routin | 03/20/2016 | | Results for this | | PANEL | e | 5:23 AM | | procedure are in the | | | | PDT | | results section. | + +--------+ + + + | TROPONIN I | Routin | 03/19/2016 | | Results for this | | | e | 6:52 PM | | procedure are in the | | | | PDT | | results section. | + +--------+ + + + | TROPONIN I | Routin | 03/19/2016 | | Results for this | | | e | 1:07 PM | | procedure are in the | | | | PDT | | results section. | + +--------+ + + + | ECG 12 LEAD | Routin | 03/19/2016 | | Results for this | | | e | 1:05 PM | | procedure are in the | | | | PDT | | results section. | + +--------+ + + + | TROPONIN I | Routin | 03/19/2016 | | Results for this | | | e | 6:45 AM | | procedure are in the | | | | PDT | | results section. | + +--------+ + + + | PROTIME INR | Routin | 03/19/2016 | | Results for this | | | e | 6:45 AM | | procedure are in the | | | | PDT | | results section. | + +--------+ + + + | CBC WITH | Routin | 03/19/2016 | | Results for this | | DIFFERENTIAL | e | 6:45 AM | | procedure are in the | | | | PDT | | results section. | + +--------+ + + + | B TYPE NATRIURETIC | Routin | 03/19/2016 | | Results for this | | PEPTIDE | e | 6:45 AM | | procedure are in the | | | | PDT | | results section. | + +--------+ + + + | BASIC METABOLIC | Routin | 03/19/2016 | | Results for this | | PANEL | e | 6:45 AM | | procedure are in the | | | | PDT | | results section. | + +--------+ + + + | TROPONIN I | Routin | 03/19/2016 | | Results for this | | | e | 12:53 AM | | procedure are in the | | | | PDT | | results section. | + +--------+ + + + | TROPONIN I | Routin | 03/18/2016 | | Results for this | | | e | 7:06 PM | | procedure are in the | | | | PDT | | results section. | + +--------+ + + + | TROPONIN I | Routin | 03/18/2016 | | Results for this | | | e | 12:24 PM | | procedure are in the | | | | PDT | | results section. | + +--------+ + + + | SLIDE REVIEW, | Routin | 03/18/2016 | | Results for this | | PERIPHERAL SMEAR | e | 7:00 AM | | procedure are in the | | | | PDT | | results section. | + +--------+ + + + | TROPONIN I | Routin | 03/18/2016 | | Results for this | | | e | 7:00 AM | | procedure are in the | | | | PDT | | results section. | + +--------+ + + + | BERENICEIME INR | Routin | 03/18/2016 | | Results for this | | | e | 7:00 AM | | procedure are in the | | | | PDT | | results section. | + +--------+ + + + | CBC WITH | Routin | 03/18/2016 | | Results for this | | DIFFERENTIAL | e | 7:00 AM | | procedure are in the | | | | PDT | | results section. | + +--------+ + + + | B TYPE NATRIURETIC | Routin | 03/18/2016 | | Results for this | | PEPTIDE | e | 7:00 AM | | procedure are in the | | | | PDT | | results section. | + +--------+ + + + | BASIC METABOLIC | Routin | 03/18/2016 | | Results for this | | PANEL | e | 7:00 AM | | procedure are in the | | | | PDT | | results section. | + +--------+ + + + | XR CHEST AP PORTABLE | Routin | 03/18/2016 | | Results for this | | | e | 5:54 AM | | procedure are in the | | | | PDT | | results section. | + +--------+ + + + | TROPONIN I | Routin | 03/18/2016 | | Results for this | | | e | 12:46 AM | | procedure are in the | | | | PDT | | results section. | + +--------+ + + + | TROPONIN I | Routin | 03/17/2016 | | Results for this | | | e | 6:52 PM | | procedure are in the | | | | PDT | | results section. | + +--------+ + + + | TROPONIN I | Routin | 03/17/2016 | | Results for this | | | e | 12:35 PM | | procedure are in the | | | | PDT | | results section. | + +--------+ + + + | TROPONIN I | Routin | 03/17/2016 | | Results for this | | | e | 6:35 AM | | procedure are in the | | | | PDT | | results section. | + +--------+ + + + | SLIDE REVIEW, | Routin | 03/17/2016 | | Results for this | | PERIPHERAL SMEAR | e | 4:38 AM | | procedure are in the | | | | PDT | | results section. | + +--------+ + + + | PROTIME INR | Routin | 03/17/2016 | | Results for this | | | e | 4:38 AM | | procedure are in the | | | | PDT | | results section. | + +--------+ + + + | CBC WITH | Routin | 03/17/2016 | | Results for this | | DIFFERENTIAL | e | 4:38 AM | | procedure are in the | | | | PDT | | results section. | + +--------+ + + + | BASIC METABOLIC | Routin | 03/17/2016 | | Results for this | | PANEL | e | 4:38 AM | | procedure are in the | | | | PDT | | results section. | + +--------+ + + + | TROPONIN I | Routin | 03/17/2016 | | Results for this | | | e | 1:24 AM | | procedure are in the | | | | PDT | | results section. | + +--------+ + + + | TROPONIN I | Routin | 03/16/2016 | | Results for this | | | e | 6:46 PM | | procedure are in the | | | | PDT | | results section. | + +--------+ + + + | XR CHEST AP PORTABLE | Routin | 03/16/2016 | | Results for this | | | e | 3:20 PM | | procedure are in the | | | | PDT | | results section. | + +--------+ + + + | URINALYSIS WITH | Routin | 03/16/2016 | | Results for this | | MICROSCOPIC WITH | e | 1:28 PM | | procedure are in the | | CULTURE IF INDICATED | | PDT | | results section. | + +--------+ + + + | CULTURE, URINE | Routin | 03/16/2016 | | Results for this | | | e | 1:28 PM | | procedure are in the | | | | PDT | | results section. | + +--------+ + + + | CULTURE, MRSA | Routin | 03/16/2016 | | Results for this | | | e | 1:27 PM | | procedure are in the | | | | PDT | | results section. | + +--------+ + + + | TROPONIN I | Routin | 03/16/2016 | | Results for this | | | e | 1:06 PM | | procedure are in the | | | | PDT | | results section. | + +--------+ + + + | PROTIME INR | Routin | 03/16/2016 | | Results for this | | | e | 1:06 PM | | procedure are in the | | | | PDT | | results section. | + +--------+ + + + | CBC WITH | Routin | 03/16/2016 | | Results for this | | DIFFERENTIAL | e | 1:06 PM | | procedure are in the | | | | PDT | | results section. | + +--------+ + + + | T4, FREE | Add-On | 03/16/2016 | | Results for this | | | | 1:06 PM | | procedure are in the | | | | PDT | | results section. | + +--------+ + + + | B TYPE NATRIURETIC | Routin | 03/16/2016 | | Results for this | | PEPTIDE | e | 1:06 PM | | procedure are in the | | | | PDT | | results section. | + +--------+ + + + | MAGNESIUM | Routin | 03/16/2016 | | Results for this | | | e | 1:06 PM | | procedure are in the | | | | PDT | | results section. | + +--------+ + + + | COMPREHENSIVE | Routin | 03/16/2016 | | Results for this | | METABOLIC PANEL | e | 1:06 PM | | procedure are in the | | | | PDT | | results section. | + +--------+ + + + | ECG 12 LEAD | Routin | 03/16/2016 | | Results for this | | | e | 12:53 PM | | procedure are in the | | | | PDT | | results section. | + +--------+ + + + | LABS - EXTERNAL SCAN | | 03/16/2016 | | Results for this | | | | 12:00 AM | | procedure are in the | | | | PDT | | results section. | + +--------+ + + + | ECG - EXTERNAL SCAN | | 03/16/2016 | | Results for this | | | | 12:00 AM | | procedure are in the | | | | PDT | | results section. | + +--------+ + + + | IMAGING REPORT - | | 03/12/2016 | | Results for this | | EXTERNAL SCAN | | 12:00 AM | | procedure are in the | | | | PDT | | results section. | + +--------+ + + + | ECHO-EXTERNAL SCAN | | 03/12/2016 | | Results for this | | | | 12:00 AM | | procedure are in the | | | | PDT | | results section. | + +--------+ + + + | LABS - EXTERNAL SCAN | | 03/05/2016 | | Results for this | | | | 12:00 AM | | procedure are in the | | | | PDT | | results section. | + +--------+ + + + documented in this encounter Results CBC with Differential (03/21/2016 4:11 AM PDT) + + + + + + | Component | Value | Ref Range | Performed | Pathologist | | | | | At | Signature | + + + + + + | White Blood | 6.0 | 4.0 - 11.0 K/uL | [facility] | | | Cells | | | [facility] | [facility] | | | [facility] | | | | | [facility] - | | | | | | [facility]ATORY | | + + + + + + | Red Blood | 4.08 (L) | 4.30 - 5.70 | [facility] | | | Cells | | M/uL | [facility] | | | | | | [facility] | | | | | | [facility] - | | | | | | LABORATORY | | + + + + + + | Hemoglobin | 11.1 (L) | 13.5 - 18.0 | [facility] | | | | | g/dL | [facility] | | | | | | [facility] | | | | | | [facility] - | | | | | | LAB[facility]ATORY | | + + + + + + | Hematocrit | 35.0 (L) | 40.0 - 51.0 % | [facility] | | | | | | [facility] | | | | | | [facility] | | | | | | [facility] - | | | | | | LAB[facility]ATORY | | + + + + + + | MCV | 85.7 | 83.0 - 101.0 fL | [facility] | | | | | | [facility] | | | | | | [facility] | | | | | | [facility] - | | | | | | LAB[facility]ATORY | | + + + + + + | MCH | 27.2 (L) | 28.0 - 35.0 pg | [facility] | | | | | | [facility] | | | | | | [facility] | | | | | | [facility] - | | | | | | LAB[facility]ATORY | | + + + + + + | MCHC | 31.7 (L) | 32.0 - 36.0 | [facility] | | | | | g/dL | [facility] | | | | | | [facility] | | | | | | [facility] - | | | | | | LAB[facility]ATORY | | + + + + + + | RDW-CV | 16.5 (H) | <15.0 % | [facility] | | | | | | [facility] | | | | | | [facility] | | | | | | [facility] - | | | | | | LABORATORY | | + + + + + + | Platelet | 153 | 140 - 440 K/uL | [facility] | | | Count | | | [facility] | | | | | | [facility] | | | | | | [facility] - | | | | | | LABORATORY | | + + + + + + | MPV | 7.5 | fL | [facility] | | | | | | [facility] | | | | | | [facility] | | | | | | [facility] - | | | | | | LAB[facility]ATORY | | + + + + + + | % | 44.8 (L) | 45.0 - 82.0 % | [facility] | | | Neutrophils | | | [facility] | | | | | | [facility] | | | | | | [facility] - | | | | | | LAB[facility]ATORY | | + + + + + + | % | 36.9 | 20.0 - 45.0 % | [facility] | | | Lymphocytes | | | [facility] | | | | | | [facility] | | | | | | [facility] - | | | | | | LABORATORY | | + + + + + + | % Monocytes | 13.7 (H) | 4.0 - 12.0 % | [facility] | | | | | | [facility] | | | | | | [facility] | | | | | | [facility] - | | | | | | LABORATORY | | + + + + + + | % | 4.1 | 0.0 - 5.0 % | [facility] | | | Eosinophils | | | [facility] | | | | | | [facility] | | | | | | C[facility] - | | | | | | LABORATORY | | + + + + + + | % Basophils | 0.5 | 0.0 - 1.0 % | [facility] | | | | | | [facility] | | | | | | [facility] | | | | | | C[facility] - | | | | | | LABORATORY | | + + + + + + | Absolute | 2.70 | 1.80 - 8.50 | [facility] | | | Neutrophils | | K/uL | [facility] | | | | | | [facility] | | | | | | C[facility] - | | | | | | LABORATORY | | + + + + + + | Absolute | 2.20 | 0.60 - 3.20 | [facility] | | | Lymphocytes | | K/uL | [facility] | | | | | | [facility] | | | | | | C[facility] - | | | | | | LABORATORY | | + + + + + + | Absolute | 0.80 | 0.00 - 1.00 | [facility] | | | Monocytes | | K/uL | [facility] | | | | | | [facility] | | | | | | [facility] - | | | | | | LABORATORY | | + + + + + + | Absolute | 0.20 | 0.00 - 0.40 | [facility] | | | Eosinophils | | K/uL | [facility] | | | | | | [facility] | | | | | | C[facility] - | | | | | | LABORATORY | | + + + + + + | Absolute | 0.00 | 0.00 - 0.10 | [facility] | | | Basophils | | K/uL | [facility] | | | | | | MEDICAL [...] + + | [facility] | [address] | [place], [place] | [phone] | | [facility] | | [id number] | | | - LABORATORY | | | | + + + + + Basic Metabolic Panel (03/21/2016 4:11 AM PDT) + + + + + + | Component | Value | Ref Range | Performed | Pathologist | | | | | At | Signature | + + + + + + | Na | 141 | 136 - 149 | [facility] | | | | | mmol/L | [facility] | | | | | | [facility] | | | | | | CENTER - | | | | | | LABORATORY | | + + + + + + | K | 4.1 | 3.5 - 5.1 | [facility] | | | | | mmol/L | [facility] | | | | | | [facility] | | | | | | CENTER - | | | | | | LABORATORY | | + + + + + + | Cl | 99 | 98 - 109 mmol/L | [facility] | | | | | | [facility] | | | | | | [facility] | | | | | | CENTER - | | | | | | LABORATORY | | + + + + + + | CO2 | 34 (H) | 24 - 31 mmol/L | [facility] | | | | | | [facility] | | | | | | [facility] | | | | | | CENTER - | | | | | | LABORATORY | | + + + + + + | Anion Gap | 8 | 3 - 16 mmol/L | [facility] | | | | | | [facility] | | | | | | [facility] | | | | | | C[facility] - | | | | | | LABORATORY | | + + + + + + | Glucose | 97 | 70 - 109 mg/dL | [facility] | | | | | | [facility] | | | | | | [facility] | | | | | | CENTER - | | | | | | LABORATORY | | + + + + + + | BUN | 42 (H) | 7 - 18 mg/dL | [facility] | | | | | | [facility] | | | | | | [facility] | | | | | | CENTER - | | | | | | LABORATORY | | + + + + + + | Creatinine | 1.33 (H) | 0.60 - 1.30 | [facility] | | | | | mg/dL | [facility] | | | | | | [facility] | | | | | | CENTER - | | | | | | LABORATORY | | + + + + + + | eGFR if not | 51 (L)Comment: | >=60 | [facility] | | | | GLOMERULAR FILTRATION | mL/min/1.73m2 | [facility] | | | [facility] | RATE,ESTIMATED | | MEDICAL | | | | mL/min/1.57d3Oscu than | | CENTER - | | [...] + + + + | Calcium | 9.1 | 8.3 - 10.5 | [facility] | | | | | mg/dL | [facility] | | | | | | [facility]ICAL | | | | | | CENTER - | | | | | | LABORATORY | | + + + + + + | BUN/Creatin | 31.6 | | [facility] | | | ine Ratio | | | [facility] | | | | | | MEDICAL [...] [address] | [place] | [phone] | | [facility] | | [address] | | | - LABORATORY | | | | + + + + + Protime INR (03/21/2016 4:11 AM PDT) + + + + + + | Component | Value | Ref Range | Performed | Pathologist | | | | | At | Signature | + + + + + + | Prothrombin | 26.0 (H) | 11.3 - 13.9 | [facility] | | | Time | | seconds | [facility] | | | | | | MEDICAL | | | | | | CENTER - | | | | | | LABORATORY | | + + + + + + | INR | 2.30 (H)Comment: Usual | 0.90 - 1.10 | [facility] | | | | Oral Anticoagulation | | [facility] | | | | Range: 2.0 - [...] + | [facility] | [address] | [place], [place] | [phone] | | [facility] | | [address] | | | - LABORATORY | | | | + + + + + Slide Review, Peripheral Smear (03/20/2016 5:23 AM PDT) + +--------+ + + + | Component | Value | Ref Range | Performed | Pathologist | | | | | At | Signature | + +--------+ + + + | RBC | Normal | | [facility] | | | Morphology | | | [facility] | | | | | | MEDICAL | | | | | | CENTER - | | | | | | LABORATORY | | + +--------+ + + + | WBC | Normal | | [facility] | | | Morphology | | | [facility] | | | | | | MEDICAL | | | | | | CENTER - | | | | | | LABORATORY | | + +--------+ + + + | Platelet | Normal | | [facility] | | | Morphology | | | [facility] | | | | | | MEDICAL | | | | | | CENTER - | | | | | | LABORATORY | | + +--------+ + + + + + | Specimen | + + | Blood | + + + + + | Narrative | Performed At | + + + | Few variant lymphs seen. | [facility] | | | [facility] | | | [facility] | | | - LABORATORY | + + + + + + + + | Performing | Address | City/State/Zipcode | Phone Number | | Organization | | | | + + + + + | [facility] | [address] | [place] | [phone] | | [facility] | | [address] | | | - LABORATORY | | | | + + + + + CBC with Differential (03/20/2016 5:23 AM PDT) + + + + + + | Component | Value | Ref Range | Performed | Pathologist | | | | | At | Signature | + + + + + + | White Blood | 6.8 | 4.0 - 11.0 K/uL | [facility] | | | Cells | | | [facility] | | | | | | MEDICAL | | | | | | CENTER - | | | | | | LABORATORY | | + + + + + + | Red Blood | 4.27 (L) | 4.30 - 5.70 | [facility] | | | Cells | | M/uL | [facility] | | | | | | MEDICAL | | | | | | CENTER - | | | | | | LABORATORY | | + + + + + + | Hemoglobin | 11.6 (L) | 13.5 - 18.0 | [facility] | | | | | g/dL | [facility] | | | | | | MEDICAL | | | | | | CENTER - | | | | | | LABORATORY | | + + + + + + | Hematocrit | 36.6 (L) | 40.0 - 51.0 % | [facility] | | | | | | [facility] | | | | | | MEDICAL | | | | | | CENTER - | | | | | | LABORATORY | | + + + + + + | MCV | 85.9 | 83.0 - 101.0 fL | [facility] | | | | | | [facility] | | | | | | MEDICAL | | | | | | CENTER - | | | | | | LABORATORY | | + + + + + + | MCH | 27.1 (L) | 28.0 - 35.0 pg | [facility] | | | | | | [facility] | | | | | | MEDICAL | | | | | | CENTER - | | | | | | LABORATORY | | + + + + + + | MCHC | 31.5 (L) | 32.0 - 36.0 | [facility] | | | | | g/dL | [facility] | | | | | | MEDICAL | | | | | | CENTER - | | | | | | LABORATORY | | + + + + + + | RDW-CV | 16.4 (H) | <15.0 % | [facility] | | | | | | [facility] | | | | | | MEDICAL | | | | | | CENTER - | | | | | | LABORATORY | | + + + + + + | Platelet | 171 | 140 - 440 K/uL | [facility] | | | Count | | | [facility] | | | | | | MEDICAL | | | | | | CENTER - | | | | | | LABORATORY | | + + + + + + | MPV | 7.8 | fL | [facility] | | | | | | [facility] | | | | | | MEDICAL | | | | | | CENTER - | | | | | | LABORATORY | | + + + + + + | % | 47.5 | 45.0 - 82.0 % | [facility] | | | Neutrophils | | | [facility] | | | | | | MEDICAL | | | | | | CENTER - | | | | | | LABORATORY | | + + + + + + | % | 35.7 | 20.0 - 45.0 % | [facility] | | | Lymphocytes | | | [facility] | | | | | | MEDICAL | | | | | | CENTER - | | | | | | LABORATORY | | + + + + + + | % Monocytes | 13.3 (H) | 4.0 - 12.0 % | [facility] | | | | | | [facility] | | | | | | MEDICAL | | | | | | CENTER - | | | | | | LABORATORY | | + + + + + + | % | 3.2 | 0.0 - 5.0 % | [facility] | | | Eosinophils | | | [facility] | | | | | | MEDICAL | | | | | | CENTER - | | | | | | LABORATORY | | + + + + + + | % Basophils | 0.3 | 0.0 - 1.0 % | [facility] | | | | | | [facility] | | | | | | MEDICAL | | | | | | CENTER - | | | | | | LABORATORY | | + + + + + + | Absolute | 3.20 | 1.80 - 8.50 | [facility] | | | Neutrophils | | K/uL | [facility] | | | | | | MEDICAL | | | | | | CENTER - | | | | | | LABORATORY | | + + + + + + | Absolute | 2.40 | 0.60 - 3.20 | [facility] | | | Lymphocytes | | K/uL | [facility] | | | | | | MEDICAL | | | | | | CENTER - | | | | | | LABORATORY | | + + + + + + | Absolute | 0.90 | 0.00 - 1.00 | [facility] | | | Monocytes | | K/uL | [facility] | | | | | | MEDICAL | | | | | | CENTER - | | | | | | LABORATORY | | + + + + + + | Absolute | 0.20 | 0.00 - 0.40 | [facility] | | | Eosinophils | | K/uL | [facility] | | | | | | MEDICAL | | | | | | CENTER - | | | | | | LABORATORY | | + + + + + + | Absolute | 0.00 | 0.00 - 0.10 | [facility] | | | Basophils | | K/uL | [facility] | | | | | | MEDICAL [...] [address] | [place] | [phone] | | [facility] | | [address] | | | - LABORATORY | | | | + + + + + Basic Metabolic Panel (03/20/2016 5:23 AM PDT) + + + + + + | Component | Value | Ref Range | Performed | Pathologist | | | | | At | Signature | + + + + + + | Na | 142 | 136 - 149 | [facility] | | | | | mmol/L | [facility] | | | | | | MEDICAL | | | | | | CENTER - | | | | | | LABORATORY | | + + + + + + | K | 4.5 | 3.5 - 5.1 | [facility] | | | | | mmol/L | [facility] | | [facility] | | | MEDICAL | | | | | | CENTER - | | | | | | LABORATORY | | + + + + + + | Cl | 99 | 98 - 109 mmol/L | [facility] | | | | | | [facility] | | | | | | [facility] | | | | | | CENTER - | | | | | | LABORATORY | | + + + + + + | CO2 | 36 (H) | 24 - 31 mmol/L | [facility] | | | | | | [facility] | | | | | | [facility] | | | | | | CENTER - | | | | | | LABORATORY | | + + + + + + | Anion Gap | 7 | 3 - 16 mmol/L | [facility] | | | | | | [facility] | | | | | | MEDICAL | | | | | | CENTER - | | | | | | LABORATORY | | + + + + + + | Glucose | 99 | 70 - 109 mg/dL | [facility] | | | | | | [facility] | | | | | | [facility]ICAL | | | | | | CENTER - | | | | | | LABORATORY | | + + + + + + | BUN | 38 (H) | 7 - 18 mg/dL | [facility] | | | | | | [facility] | | | | | | MEDICAL | | | | | | CENTER - | | | | | | LABORATORY | | + + + + + + | Creatinine | 1.30 | 0.60 - 1.30 | [facility] | | | | | mg/dL | [facility] | | | | | | MEDICAL | | | | | | CENTER - | | | | | | LABORATORY | | + + + + + + | eGFR if not | 53 (L)Comment: | >=60 | [facility] | | | | GLOMERULAR FILTRATION | mL/min/1.73m2 | [facility] | | | [facility] | RATE,ESTIMATED | | MEDICAL | | | | mL/min/1.76o4Awtg than | | CENTER - | | [...] + + + + | Calcium | 9.5 | 8.3 - 10.5 | [facility] | | | | | mg/dL | [facility] | | | | | | MEDICAL | | | | | | CENTER - | | | | | | LABORATORY | | + + + + + + | BUN/Creatin | 29.2 | | [facility] | | | ine Ratio | | | [facility] | | | | | | [facility]ICAL [...] + | [facility] | [address] | [place] | [phone] | | [facility] | | [address] | | | - LABORATORY | | | | + + + + + Protime INR (03/20/2016 5:23 AM PDT) + + + + + + | Component | Value | Ref Range | Performed | Pathologist | | | | | At | Signature | + + + + + + | Prothrombin | 31.7 (H) | 11.3 - 13.9 | [facility] | | | Time | | seconds | [facility] | | | | | | [facility] | | | | | | CENTER - | | | | | | LABORATORY | | + + + + + + | INR | 2.98 (H)Comment: Usual | 0.90 - 1.10 | [facility] | | | | Oral Anticoagulation | | [facility] | | | | Range: 2.0 - [...] + | [facility] | [address] | [place] | [phone] | | [facility] | | [address] | | | - LABORATORY | | | | + + + + + B Type Natriuretic Peptide (03/20/2016 5:23 AM PDT) + +---------+ + + + | Component | Value | Ref Range | Performed | Pathologist | | | | | At | Signature | + +---------+ + + + | BNP | 543 (H) | <100 pg/mL | [facility] | | | | | | [facility] | | | | | | MEDICAL [...] + | [facility] | [address] | [place] | [phone] | | [facility] | | [address] | | | - LABORATORY | | | | + + + + + Troponin I (03/19/2016 6:52 PM PDT) + + + + + + | Component | Value | Ref Range | Performed | Pathologist | | | | | At | Signature | + + + + + + | Troponin I | 0.05Comment: Reference | <0.06 ng/mL | [facility] | | | | Ranges:0.00-0.06 = | | [facility] | | | | NORMAL>0.06 = | [...] | | | | | | [employer] | | | | | [...] [address] | [place] | [phone] | | [facility] | | [address] | | | - LABORATORY | | | | + + + + + Troponin I (03/19/2016 1:07 PM PDT) + + + + + + | Component | Value | Ref Range | Performed | Pathologist | | | | | At | Signature | + + + + + + | Troponin I | 0.04Comment: Reference | <0.06 ng/mL | [facility] | | | | Ranges:0.00-0.06 = | | [facility] | | | | NORMAL>0.06 = | [...] | | | | | | [employer] | | | | | [...] [address] | [place] | [phone] | | [facility] | | [address] | | | - LABORATORY | | | | + + + + + ECG 12 lead (03/19/2016 1:05 PM PDT) + + + + + + | Component | Value | Ref Range | Performed | Pathologist | | | | | At | Signature | + + + + + + | VENTRICULAR | 69 | BPM | [facility] | | | RATE EKG | | | | | + + + + + + | ATRIAL RATE | 69 | BPM | [facility] | | + + + + + + | P-R | 130 | ms | [facility] | | | INTERVAL | | | | | + + + + + + | QRS | 148 | ms | [facility] | | | DURATION | | | | | + + + + + + | Q-T | 430 | ms | [facility] | | | INTERVAL | | | | | + + + + + + | Q-T | 460 | ms | [facility] | | | INTERVAL | | | | | | (CORRECTED) | | | | | + + + + + + | P WAVE AXIS | 92 | degrees | [facility] | | + + + + + + | QRS AXIS | -30 | degrees | [facility] | | + + + + + + | T AXIS | 143 | degrees | [facility] | | + + + + + + | INTERPRETAT | Sinus rhythm with | | [facility] | | | ION TEXT | frequent premature | | | | | | ventricular | | | | | | complexesLeft axis | | | | | | deviationLeft bundle | | | | | | branch blockAbnormal | | | | | | ECGWhen compared with | | | | | | ECG of 16-MAR-2016 | | | | | | 12:53,sinus rhythm has | | | | | | replaced atrial | | | | | | fibrillation/flutterST | | | | | | depression is less | | | | | | prominent in | | | | | | V4-6Confirmed by FREDERICK | | | | | | BINU CHARLTON ([id number]) on | | | | | | 03/20/2016 8:20:23 AM | | | | + + [...] | + +---------+ + + Troponin I (03/19/2016 6:45 AM PDT) + + + + + + | Component | Value | Ref Range | Performed | Pathologist | | | | | At | Signature | + + + + + + | Troponin I | 0.05Comment: Reference | <0.06 ng/mL | [facility] | | | | Ranges:0.00-0.06 = | | [facility] | | | | NORMAL>0.06 = | [...] | | | | | | [employer] | | | | | [...] ST. | [address] | [place] | [phone] | | [facility] | | [address] | | | - LABORATORY | | | | + + + + + CBC with Differential (03/19/2016 6:45 AM PDT) + + + + + + | Component | Value | Ref Range | Performed | Pathologist | | | | | At | Signature | + + + + + + | White Blood | 6.6 | 4.0 - 11.0 K/uL | [facility] | | | Cells | | | [facility] | | | | | | [facility] | | | | | [facility] - | | | | | | LABORATORY | | + + + + + + | Red Blood | 4.34 | 4.30 - 5.70 | [facility] | | | Cells | | M/uL | [facility] | | | | | | MEDICAL | | | | | | CENTER - | | | | | | LABORATORY | | + + + + + + | Hemoglobin | 11.8 (L) | 13.5 - 18.0 | [facility] | | | | | g/dL | [facility] | | | | | | MEDICAL | | | | | | CENTER - | | | | | | LABORATORY | | + + + + + + | Hematocrit | 37.4 (L) | 40.0 - 51.0 % | [facility] | | | | | | [facility] | | | | | | [facility] | | | | | | CENTER - | | | | | | LABORATORY | | + + + + + + | MCV | 86.0 | 83.0 - 101.0 fL | [facility] | | | | | | [facility] | | | | | | [facility] | | | | | | CENTER - | | | | | | LABORATORY | | + + + + + + | MCH | 27.1 (L) | 28.0 - 35.0 pg | [facility] | | | | | | [facility] | | | | | | [facility] | | | | | | CENTER - | | | | | | LABORATORY | | + + + + + + | MCHC | 31.5 (L) | 32.0 - 36.0 | [facility] | | | | | g/dL | [facility] | | | | | | MEDICAL | | | | | | CENTER - | | | | | | LABORATORY | | + + + + + + | RDW-CV | 16.5 (H) | <15.0 % | [facility] | | | | | | [facility] | | | | | | MEDICAL | | | | | | CENTER - | | | | | | LABORATORY | | + + + + + + | Platelet | 173 | 140 - 440 K/uL | [facility] | | | Count | | | [facility] | | | | | | MEDICAL | | | | | | CENTER - | | | | | | LABORATORY | | + + + + + + | MPV | 7.4 | fL | [facility] | | | | | | [facility] | | | | | | MEDICAL | | | | | | CENTER - | | | | | | LABORATORY | | + + + + + + | % | 40.1 (L) | 45.0 - 82.0 % | [facility] | | | Neutrophils | | | [facility] | | | | | | MEDICAL | | | | | | CENTER - | | | | | | LABORATORY | | + + + + + + | % | 42.6 | 20.0 - 45.0 % | [facility] | | | Lymphocytes | | | [facility] | | | | | | MEDICAL | | | | | | CENTER - | | | | | | LABORATORY | | + + + + + + | % Monocytes | 13.3 (H) | 4.0 - 12.0 % | [facility] | | | | | | [facility] | | | | | | MEDICAL | | | | | | CENTER - | | | | | | LABORATORY | | + + + + + + | % | 3.6 | 0.0 - 5.0 % | [facility] | | | Eosinophils | | | [facility] | | | | | | MEDICAL | | | | | | CENTER - | | | | | | LABORATORY | | + + + + + + | % Basophils | 0.4 | 0.0 - 1.0 % | [facility] | | | | | | [facility] | | | | | | MEDICAL | | | | | | CENTER - | | | | | | LABORATORY | | + + + + + + | Absolute | 2.70 | 1.80 - 8.50 | [facility] | | | Neutrophils | | K/uL | [facility] | | | | | | MEDICAL | | | | | | CENTER - | | | | | | LABORATORY | | + + + + + + | Absolute | 2.80 | 0.60 - 3.20 | [facility] | | | Lymphocytes | | K/uL | [facility] | | | | | | MEDICAL | | | | | | CENTER - | | | | | | LABORATORY | | + + + + + + | Absolute | 0.90 | 0.00 - 1.00 | [facility] | | | Monocytes | | K/uL | [facility] | | | | | | MEDICAL | | | | | | CENTER - | | | | | | LABORATORY | | + + + + + + | Absolute | 0.20 | 0.00 - 0.40 | [facility] | | | Eosinophils | | K/uL | [facility] | | | | | | MEDICAL | | | | | | CENTER - | | | | | | LABORATORY | | + + + + + + | Absolute | 0.00 | 0.00 - 0.10 | [facility] | [...] + | [facility] | [address] | [place] | [phone] | | [facility] | | [address] | | | - LABORATORY | | | | + + + + + Basic Metabolic Panel (03/19/2016 6:45 AM PDT) + + + + + + | Component | Value | Ref Range | Performed | Pathologist | | | | | At | Signature | + + + + + + | Na | 141 | 136 - 149 | [facility] | | | | | mmol/L | [facility] | | | | | | MEDICAL | | | | | | CENTER - | | | | | | LABORATORY | | + + + + + + | K | 4.6 | 3.5 - 5.1 | [facility] | | | | | mmol/L | [facility] | | | | | | MEDICAL | | | | | | CENTER - | | | | | | LABORATORY | | + + + + + + | Cl | 99 | 98 - 109 mmol/L | [facility] | | | | | | [facility] | | | | | | MEDICAL | | | | | | CENTER - | | | | | | LABORATORY | | + + + + + + | CO2 | 36 (H) | 24 - 31 mmol/L | [facility] [...] + + + + | Glucose | 103 | 70 - 109 mg/dL | [facility] [...] 1.36 (H) | 0.60 - 1.30 | [facility] | | | | | mg/dL | [facility] | | | | | | MEDICAL | | | | | | CENTER - | | | | | | LABORATORY | | + + + + + + | eGFR if not | 50 (L)Comment: | >=60 | [place] | | | | GLOMERULAR FILTRATION | mL/min/1.73m2 | [facility] | | | [employer] | RATE,ESTIMATED | | MEDICAL | | | | mL/min/1.83a3Mjso than | | CENTER - | | [...] + + + + | Calcium | 9.2 | 8.3 - 10.5 | [facility] | | | | | mg/dL | [facility] | | | | | | [facility] | | | | | | CENTER - | | | | | | LABORATORY | | + + + + + + | BUN/Creatin | 29.4 | | [facility] | | | ine Ratio | | | [facility] | | | | | | MEDICAL [...] [address] | [place] | [phone] | | [facility] | | [address] | | | - LABORATORY | | | | + + + + + Protime INR (03/19/2016 6:45 AM PDT) + + + + + + | Component | Value | Ref Range | Performed | Pathologist | | | | | At | Signature | + + + + + + | Prothrombin | 34.4 (H) | 11.3 - 13.9 | [facility] | | | Time | | seconds | [facility] | | | | | [facility] | | | | | | CENTER - | | | | | | LABORATORY | | + + + + + + | INR | 3.31 (H)Comment: Usual | 0.90 - 1.10 | [facility] | | | | Oral Anticoagulation | | [facility] | | | | Range: 2.0 - [...] [address] | [place] | [phone] | | [facility] | | [address] | | | - LABORATORY | | | | + + + + + B Type Natriuretic Peptide (03/19/2016 6:45 AM PDT) + +---------+ + + + | Component | Value | Ref Range | Performed | Pathologist | | | | | At | Signature | + +---------+ + + + | BNP | 824 (H) | <100 pg/mL | [facility] | | | | | [...] [address] | [place] | [phone] | | [facility] | | [address] | | | - LABORATORY | | | | + + + + + Troponin I (03/19/2016 12:53 AM PDT) + + + + + + | Component | Value | Ref Range | Performed | Pathologist | | | | | At | Signature | + + + + + + | Troponin I | 0.05Comment: Reference | <0.06 ng/mL | [facility] | | | | Ranges:0.00-0.06 = | | [facility] | | | | NORMAL>0.06 = | [...] | | | | | | [employer] | | | | | [...] + | [facility] | [address] | [place] | [phone] | | [facility] | | [address] | | | - LABORATORY | | | | + + + + + Troponin I (03/18/2016 7:06 PM PDT) + + + + + + | Component | Value | Ref Range | Performed | Pathologist | | | | | At | Signature | + + + + + + | Troponin I | 0.05Comment: Reference | <0.06 ng/mL | [facility] | | | | Ranges:0.00-0.06 = | | [facility] | | | | NORMAL>0.06 = | [...] | | | | | | [employer] | | | | | [...] [address] | [place] | [phone] | | [facility] | | [address] | | | - LABORATORY | | | | + + + + + Troponin I (03/18/2016 12:24 PM PDT) + + + + + + | Component | Value | Ref Range | Performed | Pathologist | | | | | At | Signature | + + + + + + | Troponin I | 0.04Comment: Reference | <0.06 ng/mL | [facility] | | | | Ranges:0.00-0.06 = | | [facility] | | | | NORMAL>0.06 = | [...] | | | | | | [employer] | | | | | [...] [address] | [place] | [phone] | | [facility] | | [address] | | | - LABORATORY | | | | + + + + + Slide Review, Peripheral Smear (03/18/2016 7:00 AM PDT) + + + + + + | Component | Value | Ref Range | Performed | Pathologist | | | | | At | Signature | + + + + + + | RBC | Normal | | [facility] | | | Morphology | | | [facility] | | | | | | [facility]ICAL | | | | | | CENTER - | | | | | | LABORATORY | | + + + + + + | WBC | Normal | | [facility] | | | Morphology | | | [facility] | | | | | | MEDICAL | | | | | | CENTER - | | | | | | LABORATORY | | + + + + + + | Platelet | Adequate | Adequate | [facility] | | | Estimate | | | [facility] | | | | | | MEDICAL | | | | | | CENTER - | | | | | | LABORATORY | | + + + + + + + + | Specimen | + + | Blood | + + + + + | Narrative | Performed At | + + + | Few variant lymphs seen. | [facility] | | | [facility] | | | [facility] | | | - LABORATORY | + + + + + + + + | Performing | Address | City/State/Zipcode | Phone Number | | Organization | | | | + + + + + | [facility] | [address] | [place] | [phone] | | [facility] | | [address] | | | - LABORATORY | | | | + + + + + Troponin I (03/18/2016 7:00 AM PDT) + + + + + + | Component | Value | Ref Range | Performed | Pathologist | | | | | At | Signature | + + + + + + | Troponin I | 0.04Comment: Reference | <0.06 ng/mL | [facility] | | | | Ranges:0.00-0.06 = | | [facility] | | | | NORMAL>0.06 = | [...] | | | | | | [employer] | | | | | [...] [address] | [place] | [phone] | | [facility] | | [address] | | | - LABORATORY | | | | + + + + + CBC with Differential (03/18/2016 7:00 AM PDT) + + + + + + | Component | Value | Ref Range | Performed | Pathologist | | | | | At | Signature | + + + + + + | White Blood | 7.8 | 4.0 - 11.0 K/uL | [facility] | | | Cells | | | [facility] | | | | | | MEDICAL | | | | | | CENTER - | | | | | | LABORATORY | | + + + + + + | Red Blood | 4.37 | 4.30 - 5.70 | [facility] | | | Cells | | M/uL | [facility] | | | | | | MEDICAL | | | | | | CENTER - | | | | | | LABORATORY | | + + + + + + | Hemoglobin | 11.8 (L) | 13.5 - 18.0 | [facility] | | | | | g/dL | [facility] | | | | | | MEDICAL | | | | | | CENTER - | | | | | | LABORATORY | | + + + + + + | Hematocrit | 37.6 (L) | 40.0 - 51.0 % | [facility] | | | | | | [facility] | | | | | | MEDICAL | | | | | | CENTER - | | | | | | LABORATORY | | + + + + + + | MCV | 86.1 | 83.0 - 101.0 fL | [facility] | | | | | | [facility] | | | | | | MEDICAL | | | | | | CENTER - | | | | | | LABORATORY | | + + + + + + | MCH | 27.0 (L) | 28.0 - 35.0 pg | [facility] | | | | | | [facility] | | | | | | MEDICAL | | | | | | CENTER - | | | | | | LABORATORY | | + + + + + + | MCHC | 31.4 (L) | 32.0 - 36.0 | [facility] | | | | | g/dL | [facility] | | | | | | MEDICAL | | | | | | CENTER - | | | | | | LABORATORY | | + + + + + + | RDW-CV | 16.8 (H) | <15.0 % | [facility] | | | | | | [facility] | | | | | | MEDICAL | | | | | | CENTER - | | | | | | LABORATORY | | + + + + + + | Platelet | 190 | 140 - 440 K/uL | [facility] | | | Count | | | [facility] | | | | | | MEDICAL | | | | | | CENTER - | | | | | | LABORATORY | | + + + + + + | MPV | 7.4 | fL | [facility] | | | | | | [facility] | | | | | | MEDICAL | | | | | | CENTER - | | | | | | LABORATORY | | + + + + + + | % | 40.9 (L) | 45.0 - 82.0 % | [facility] | | | Neutrophils | | | [facility] | | | | | | MEDICAL | | | | | | CENTER - | | | | | | LABORATORY | | + + + + + + | % | 42.2 | 20.0 - 45.0 % | [facility] | | | Lymphocytes | | | [facility] | | | | | | MEDICAL | | | | | | CENTER - | | | | | | LABORATORY | | + + + + + + | % Monocytes | 12.7 (H) | 4.0 - 12.0 % | [facility] | | | | | | [facility] | | | | | | MEDICAL | | | | | | CENTER - | | | | | | LABORATORY | | + + + + + + | % | 3.7 | 0.0 - 5.0 % | [facility] | | | Eosinophils | | | [facility] | | | | | | MEDICAL | | | | | | CENTER - | | | | | | LABORATORY | | + + + + + + | % Basophils | 0.5 | 0.0 - 1.0 % | [facility] | | | | | | [facility] | | | | | | MEDICAL | | | | | | CENTER - | | | | | | LABORATORY | | + + + + + + | Absolute | 3.20 | 1.80 - 8.50 | [facility] | | | Neutrophils | | K/uL | [facility] | | | | | | MEDICAL | | | | | | CENTER - | | | | | | LABORATORY | | + + + + + + | Absolute | 3.30 (H) | 0.60 - 3.20 | [facility] | | | Lymphocytes | | K/uL | [facility] | | | | | | MEDICAL | | | | | | CENTER - | | | | | | LABORATORY | | + + + + + + | Absolute | 1.00 | 0.00 - 1.00 | [facility] | | | Monocytes | | K/uL | [facility] | | | | | | MEDICAL | | | | | | CENTER - | | | | | | LABORATORY | | + + + + + + | Absolute | 0.30 | 0.00 - 0.40 | [facility] | | | Eosinophils | | K/uL | [facility] | | | | | | MEDICAL | | | | | | CENTER - | | | | | | LABORATORY | | + + + + + + | Absolute | 0.00 | 0.00 - 0.10 | [facility] | | | Basophils | | K/uL | [facility] | | | | | | MEDICAL [...] [address] | [place] | [phone] | | [facility] | | [address] | | | - LABORATORY | | | | + + + + + Basic Metabolic Panel (03/18/2016 7:00 AM PDT) + + + + + + | Component | Value | Ref Range | Performed | Pathologist | | | | | At | Signature | + + + + + + | Na | 140 | 136 - 149 | [facility] | | | | | mmol/L | [facility] | | | | | | MEDICAL | | | | | | CENTER - | | | | | | LABORATORY | | + + + + + + | K | 4.8 | 3.5 - 5.1 | [facility] | | | | | mmol/L | [facility] | | | | | | MEDICAL | | | | | | CENTER - | | | | | | LABORATORY | | + + + + + + | Cl | 99 | 98 - 109 mmol/L | [facility] | | | | | | [facility] | | | | | | MEDICAL | | | | | | CENTER - | | | | | | LABORATORY | | + + + + + + | CO2 | 34 (H) | 24 - 31 mmol/L | [facility] | | | | | | [facility] | | | | | | MEDICAL | | | | | | CENTER - | | | | | | LABORATORY | | + + + + + + | Anion Gap | 7 | 3 - 16 mmol/L | [facility] | | | | | | [facility] | | | | | | MEDICAL | | | | | | CENTER - | | | | | | LABORATORY | | + + + + + + | Glucose | 93 | 70 - 109 mg/dL | [facility] | | | | | | [facility] | | | | | | MEDICAL [...] + + + + | Creatinine | 1.39 (H) | 0.60 - 1.30 | [facility] | | | | | mg/dL | [facility] | | | | | | MEDICAL | | | | | | CENTER - | | | | | | LABORATORY | | + + + + + + | eGFR if not | 49 (L)Comment: | >=60 | [facility] | | | | GLOMERULAR FILTRATION | mL/min/1.73m2 | [facility] | | | [employer] | RATE,ESTIMATED | | MEDICAL | | | | mL/min/1.42r2Buuy than | | CENTER - | | [...] + + + + | Calcium | 9.3 | 8.3 - 10.5 | [facility] | | | | | mg/dL | [facility] | | | | | | MEDICAL | | | | | | CENTER - | | | | | | LABORATORY | | + + + + + + | BUN/Creatin | 28.8 | | [facility] | | | ine Ratio | | | [facility] | | | | | | MEDICAL [...] + | [facility] | [address] | [place] | [phone] | | [facility] | | [address] | | | - LABORATORY | | | | + + + + + Protime INR (03/18/2016 7:00 AM PDT) + + + + + + | Component | Value | Ref Range | Performed | Pathologist | | | | | At | Signature | + + + + + + | Prothrombin | 35.2 (H) | 11.3 - 13.9 | [facility] | | | Time | | seconds | [facility] | | | | | [facility] | | | | | | CENTER - | | | | | | LABORATORY | | + + + + + + | INR | 3.41 (H)Comment: Usual | 0.90 - 1.10 | [facility] | | | | [facility] Anticoagulation | | [facility] | | | | Range: 2.0 - [...] [address] | [place] | [phone] | | [facility] | | [address] | | | - LABORATORY | | | | + + + + + B Type Natriuretic Peptide (03/18/2016 7:00 AM PDT) + +---------+ + + + | Component | Value | Ref Range | Performed | Pathologist | | | | | At | Signature | + +---------+ + + + | BNP | 875 (H) | <100 pg/mL | [facility] | | | | | | [facility] | | | | | | MEDICAL [...] [facility] | [address] | [place], [place] | [phone] | | [facility] | | [address] | | | - LABORATORY | | | | + + + + + XR Chest AP Portable (03/18/2016 5:54 AM PDT) + + | Specimen | + + | | + + + + + | Narrative | Performed At | + + + | EXAM: XR CHEST AP PORTABLE dated 03/18/2016 5:17 AM HISTORY: chf | [facility] | | Comparison: March 16, 2016. TECHNIQUE: A single portable view of | | | the chest. FINDINGS: Continued blunting of the left costophrenic | | | angle and obscuration of the left hemidiaphragm. The right lung | | | remains better aerated. Prominent interstitial changes throughout | | | both lungs. No pneumothorax. Stable cardiomegaly. Stable | | | osseous structures. IMPRESSION - Continued blunting of the | | | left costophrenic angle and obscuration of the left hemidiaphragm. | | | No significant interval change. Dictated and Signed by: Paco Mitchell | | MD [place] Electronically signed: 03/18/2016 10:00 AM | | + + + + + | Procedure Note | + + | Duane, Rad Results In - 03/18/2016 10:03 AM PDT EXAM: XR CHEST AP PORTABLE dated | | 03/18/2016 5:17 AMHISTORY: [facility].TECHNIQUE: A single portable view | | of the chest.FINDINGS:Continued blunting of the left costophrenic angle and obscuration | | of the lefthemidiaphragm. The right lung remains better aerated. Prominent | | interstitialchanges throughout both lungs. No pneumothorax. Stable cardiomegaly. | | Stableosseous structures. IMPRESSION -Continued blunting of the left costophrenic angle | | and obscuration of the lefthemidiaphragm.No significant interval change.Dictated and | | Signed by: Paco Villasenor MD Electronically signed: 03/18/2016 10:00 AM | |FINDINGS: | |Continued blunting of the left costophrenic angle and obscuration of the left | |hemidiaphragm. The right lung remains better aerated. Prominent interstitial | |changes throughout both lungs. No pneumothorax. Stable cardiomegaly. Stable | |osseous structures. | | | |IMPRESSION - | | | |Continued blunting of the left costophrenic angle and obscuration of the left | |hemidiaphragm. | | | |No significant interval change. | | | |Dictated and Signed by: Paco Villasenor MD | | Electronically signed: 03/18/2016 10:00 AM | + + + +---------+ + + | Performing | Address | City/State/Zipcode | Phone Number | | Organization | | | | + +---------+ + + | [facility] | | | | + +---------+ + + Troponin I (03/18/2016 12:46 AM PDT) + + + + + + | Component | Value | Ref Range | Performed | Pathologist | | | | | At | Signature | + + + + + + | Troponin I | 0.06 (H)Comment: | <0.06 ng/mL | [facility] | | | | Reference | | [facility] | | | | Ranges:0.00-0.06 = | | MEDICAL | | | | NORMAL>0.06 = | | CENTER - | | | | SUSPICIOUS FOR | | LABORATORY | | | | MYOCARDIAL DAMAGE NOTE: | | | | | | Values greater than 0.50 | | | | | | ng/mL have been shown | | | | | | to be strongly | | | | | | associated with acute | | | | | | myocardial infarction. | | | | | | [employer] | | | | | [...] ST. | [address] | [place], [place] | [phone] | | [facility] | | [address] | | | - LABORATORY | | | | + + + + + Troponin I (03/17/2016 6:52 PM PDT) + + + + + + | Component | Value | Ref Range | Performed | Pathologist | | | | | At | Signature | + + + + + + | Troponin I | 0.05Comment: Reference | <0.06 ng/mL | [facility] | | | | Ranges:0.00-0.06 = | | [facility] | | | | NORMAL>0.06 = | [...] | | | | | | [employer] | | | | | [...] + + | Performing | Address | City/State/[facility] | Phone Number | | Organization | | | | + + + + + | [facility] | [address] | [place] | [phone] | | [facility] | | [address] | | | - LABORATORY | | | | + + + + + Troponin I (03/17/2016 12:35 PM PDT) + + + + + + | Component | Value | Ref Range | Performed | Pathologist | | | | | At | Signature | + + + + + + | Troponin I | 0.05Comment: Reference | <0.06 ng/mL | [facility] | | | | Ranges:0.00-0.06 = | | [facility] | | | | NORMAL>0.06 = | [...] | | | | | | [employer] | | | | | [...] + | [facility] | [address] | [place] | [phone] | | [facility] | | [address] | | | - LABORATORY | | | | + + + + + Troponin I (03/17/2016 6:35 AM PDT) + + + + + + | Component | Value | Ref Range | Performed | Pathologist | | | | | At | Signature | + + + + + + | Troponin I | 0.05Comment: Reference | <0.06 ng/mL | [facility] | | | | Ranges:0.00-0.06 = | | [facility] | | | | NORMAL>0.06 = | [...] | | | | | | [employer] | | | | | [...] [facility]. | [address] | [place], [place] | [phone] | | [facility] | | [address] | | | - LABORATORY | | | | + + + + + Slide Review, Peripheral Smear (03/17/2016 4:38 AM PDT) + +--------+ + + + | Component | Value | Ref Range | Performed | Pathologist | | | | | At | Signature | + +--------+ + + + | RBC | Normal | | [facility] | | | Morphology | | | [facility] | | | [facility] | [facility] | | | | | [facility] - | | | | | | LABORATORY | | + +--------+ + + + | WBC | Normal | | [facility] | | | Morphology | | | [facility] | | | | | | [facility] | | | | | | [facility] - | | | | | | LABORATORY | | + +--------+ + + + | Platelet | Normal | | [facility] | | | Morphology | | | [facility] | | [facility] | [facility] | | | | | | [facility] - | | | | | | LABORATORY | | + +--------+ + + + + + | Specimen | + + | Blood | + + + + + | Narrative | Performed At | + + + | Few variant lymphs seen. | [facility] | | | [facility] | | | - LABORATORY | + + + + + + + + | Performing | Address | City/State/Zipcode | Phone Number | | Organization | | | | + + + + + | [facility] | [address] | [place] | [phone] | | [facility] | | [address] | | | - LABORATORY | | | | + + + + + CBC with Differential (03/17/2016 4:38 AM PDT) + + + + + + | Component | Value | Ref Range | Performed | Pathologist | | | | | At | Signature | + + + + + + | White Blood | 6.1 | 4.0 - 11.0 K/uL | [facility] | | | Cells | | | [facility] | | | | | | [facility] | | | | | | [facility] - | | | | | | LABORATORY | | + + + + + + | Red Blood | 4.14 (L) | 4.30 - 5.70 | [facility] | | | Cells | | M/uL | [facility] | | | | | | [facility] | | | | | | [facility] - | | | | | | LABORATORY | | + + + + + + | Hemoglobin | 11.3 (L) | 13.5 - 18.0 | [facility] | | | | | g/dL | [facility] | | | | | | [facility] | | | | | | [facility] - | | | | | | LABORATORY | | + + + + + + | Hematocrit | 35.8 (L) | 40.0 - 51.0 % | [facility] | | | | | | [facility] | | | | | | [facility] | | | | | | [facility] - | | | | | | LABORATORY | | + + + + + + | MCV | 86.5 | 83.0 - 101.0 fL | [facility] | | | | | | [facility] | | | | | | [facility] | | | | | | [facility] - | | | | | | LABORATORY | | + + + + + + | MCH | 27.4 (L) | 28.0 - 35.0 pg | [facility] | | | | | | [facility] | | | | | | [facility] | | | | | | [facility] - | | | | | | LABORATORY | | + + + + + + | MCHC | 31.6 (L) | 32.0 - 36.0 | [facility] | | | | | g/dL | [facility] | | | | | | [facility] | [facility] | | | | [facility] - | | | | | | LABORATORY | | + + + + + + | RDW-CV | 16.4 (H) | <15.0 % | [facility] | | | | | | [facility] | | | | | | [facility] | | | | | | [facility] - | | | | | | LABORATORY | | + + + + + + | Platelet | 176 | 140 - 440 K/uL | [facility] | | | Count | | | [facility] | | | | | | [facility] | | | | | | [facility] - | | | | | | LABORATORY | | + + + + + + | MPV | 7.8 | fL | [facility] | | | | | | [facility] | | | | | | [facility] | | | | | | [facility] - | | | | | | LABORATORY | | + + + + + + | % | 42.9 (L) | 45.0 - 82.0 % | [facility] | | | Neutrophils | | | [facility] | | | | | | [facility] | | | | | | [facility] - | | | | | | LABORATORY | | + + + + + + | % | 37.6 | 20.0 - 45.0 % | [facility] | | | Lymphocytes | | | [facility] | | | | | | [facility] | | | | | | [facility] - | | | | | | LABORATORY | | + + + + + + | % Monocytes | 14.8 (H) | 4.0 - 12.0 % | [facility] | | | | | | [facility] | | | | | | [facility] | | | | | | [facility] - | | | | | | LABORATORY | | + + + + + + | % | 4.2 | 0.0 - 5.0 % | [facility] | | | Eosinophils | | | [facility] | | | | | | [facility] | | | | | | CENTER - | | | | | | LABORATORY | | + + + + + + | % Basophils | 0.5 | 0.0 - 1.0 % | [facility] | | | | | | [facility] | | | | | | [facility] | | | | | | CENTER - | | | | | | LABORATORY | | + + + + + + | Absolute | 2.60 | 1.80 - 8.50 | [facility] | | | Neutrophils | | K/uL | [facility] | | | | | | [facility]ICAL | | | | | | CENTER - | | | | | | LABORATORY | | + + + + + + | Absolute | 2.30 | 0.60 - 3.20 | [facility] | | | Lymphocytes | | K/uL | [facility] | | | | | | [facility]ICAL | | | | | | CENTER - | | | | | | LABORATORY | | + + + + + + | Absolute | 0.90 | 0.00 - 1.00 | [facility] | | | Monocytes | | K/uL | [facility] | | | | | | [facility] | | | | | | CENTER - | | | | | | LABORATORY | | + + + + + + | Absolute | 0.30 | 0.00 - 0.40 | [facility] | | | Eosinophils | | K/uL | [facility] | | | | | | [facility]ICAL | | | | | | CENTER - | | | | | | LABORATORY | | + + + + + + | Absolute | 0.00 | 0.00 - 0.10 | [facility] | | | Basophils | | K/uL | [facility] | | | | | | MEDICAL [...] [address] | [place] | [phone] | | [facility] | | [address] | | | - LABORATORY | | | | + + + + + Basic Metabolic Panel (03/17/2016 4:38 AM PDT) + + + + + + | Component | Value | Ref Range | Performed | Pathologist | | | | | At | Signature | + + + + + + | Na | 139 | 136 - 149 | [facility] | | | | | mmol/L | [facility] | | | | | | MEDICAL | | | | | | CENTER - | | | | | | LABORATORY | | + + + + + + | K | 4.5 | 3.5 - 5.1 | [facility] | | | | | mmol/L | [facility] | | | | | | MEDICAL | | | | | | CENTER - | | | | | | LABORATORY | | + + + + + + | Cl | 100 | 98 - 109 mmol/L | [facility] | | | | | | [facility] | | | | | | MEDICAL | | | | | | CENTER - | | | | | | LABORATORY | | + + + + + + | CO2 | 34 (H) | 24 - 31 mmol/L | [facility] [...] | | | | | | [facility] | | | | | | MEDICAL [...] + + + + | BUN | 42 (H) | 7 - 18 mg/dL | [facility] | | | | | | [facility] | | | | | | MED[facility] | | | | | | CENTER - | | | | | | LABORATORY | | + + + + + + | Creatinine | 1.49 (H) | 0.60 - 1.30 | [facility] | | | | | mg/dL | [facility] | | | | | | MEDICAL | | | | | | CENTER - | | | | | | LABORATORY | | + + + + + + | eGFR if not | 45 (L)Comment: | >=60 | [facility] | | | | GLOMERULAR FILTRATION | mL/min/1.73m2 | [facility] | | | [employer] | RATE,ESTIMATED | | MEDICAL | | | | mL/min/1.94r9Ilkd than | | CENTER - | | [...] | | | | | mg/dL | [facility] | | | | | | MEDICAL | | | | | | CENTER - | | | | | | LABORATORY | | + + + + + + | BUN/Creatin | 28.2 | | [facility] | | | ine Ratio | | | [facility] | | | | | | MED[facility] [...] + | [facility] | [address] | [place] | [phone] | | [facility] | | [address] | | | - LABORATORY | | | | + + + + + Protime INR (03/17/2016 4:38 AM PDT) + + + + + + | Component | Value | Ref Range | Performed | Pathologist | | | | | At | Signature | + + + + + + | Prothrombin | 32.6 (H) | 11.3 - 13.9 | [facility] | | | Time | | seconds | [facility] | | | | | | MEDICAL | | | | | | CENTER - | | | | | | LABORATORY | | + + + + + + | INR | 3.09 (H)Comment: Usual | 0.90 - 1.10 | [facility] | | | | Oral Anticoagulation | | [facility] | | | | Range: 2.0 - [...] [address] | [place] | [phone] | | [facility] | | [address] | | | - LABORATORY | | | | + + + + + Troponin I (03/17/2016 1:24 AM PDT) + + + + + + | Component | Value | Ref Range | Performed | Pathologist | | | | | At | Signature | + + + + + + | Troponin I | 0.06 (H)Comment: | <0.06 ng/mL | [facility] | | | | Reference | | [facility] | | | | Ranges:0.00-0.06 = | | MEDICAL | | | | NORMAL>0.06 = | | CENTER - | | | | SUSPICIOUS FOR | | LABORATORY | | | | MYOCARDIAL DAMAGE NOTE: | | | | | | Values greater than 0.50 | | | | | | ng/mL have been shown | | | | | | to be strongly | | | | | | associated with acute | | | | | | myocardial infarction. | | | | | | [employer] | | | | | [...] [address] | [place] | [phone] | | [facility] | | [address] | | | - LABORATORY | | | | + + + + + Troponin I (03/16/2016 6:46 PM PDT) + + + + + + | Component | Value | Ref Range | Performed | Pathologist | | | | | At | Signature | + + + + + + | Troponin I | 0.06 (H)Comment: | <0.06 ng/mL | [facility] | | | | Reference | | [facility] | | | | Ranges:0.00-0.06 = | | MEDICAL | | | | NORMAL>0.06 = | | CENTER - | | | | SUSPICIOUS FOR | | LABORATORY | | | | MYOCARDIAL DAMAGE NOTE: | | | | | | Values greater than 0.50 | | | | | | ng/mL have been shown | | | | | | to be strongly | | | | | | associated with acute | | | | | | myocardial infarction. | | | | | | [employer] | | | | | [...] + + | Performing | Address | City/State/[facility] | Phone Number | | Organization | | | | + + + + + | [facility] | [address] | [place] | [phone] | | [facility] | | [address] | | | - LABORATORY | | | | + + + + + XR Chest AP Portable (03/16/2016 3:20 PM PDT) + + | Specimen | + + | | + + + + + | Narrative | Performed At | + + + | XR CHEST AP PORTABLE 03/16/2016 3:20 PM HISTORY: CHF, follow up | [facility] | | effusion. COMPARISON: Multiple priors. Findings: Sternotomy | | | wires and a prosthetic aortic valve are seen. The heart is enlarged. | | | There is atherosclerosis of the aorta. Mediastinum is unremarkable. | | | Central pulmonary vasculature is normal. Mild, diffuse scarring is | | | noted of the bilateral lungs. There is chronic blunting of the left | | | costophrenic angle that could represent scarring versus a small | | | pleural effusion. There is moderate thoracic spondylosis. | | | IMPRESSION - Cardiomegaly. Chronic blunting of left costophrenic | | | angle that could represent scarring versus small pleural effusion. | | | Dictated and Signed by: Deep Garcia MD Electronically signed: | | | 03/16/2016 4:32 PM | | + + + + + | Procedure Note | + + | [place], Rad Results In - 03/16/2016 4:35 PM PDT XR CHEST AP PORTABLE 03/16/2016 3:20 PM | | | | HISTORY: CHF, follow up effusion. | | | | COMPARISON: Multiple priors. | | | | Findings: | | Sternotomy wires and a prosthetic aortic valve are seen. The heart is enlarged. | | There is atherosclerosis of the aorta. Mediastinum is unremarkable. Central | | pulmonary vasculature is normal. Mild, diffuse scarring is noted of the | | bilateral lungs. There is chronic blunting of the left costophrenic angle that | | could represent scarring versus a small pleural effusion. There is moderate | | thoracic spondylosis. | | | | IMPRESSION - | | Cardiomegaly. | | | | Chronic blunting of left costophrenic angle that could represent scarring versus | | small pleural effusion. | | | | Dictated and Signed by: Deep Garcia MD | | Electronically signed: 03/16/2016 4:32 PM | + + + +---------+ + + | Performing | Address | City/State/Zipcode | Phone Number | | Organization | | | | + +---------+ + + | [facility] | | | | + +---------+ + + Culture, Urine (03/16/2016 1:28 PM PDT) + + + + + [...] | Specimen | + + | Urine - Urine | | specimen obtained by | | single | | catheterization of | | bladder (specimen) | + + + + + + + | Performing | Address | City/State/Zipcode | Phone Number | | Organization | | | | + + + + + | [facility] | [address] | [place] | [phone] | | [facility] | | [address] | | | - LABORATORY | | | | + + + + + Urinalysis with Microscopic with Culture if Indicated (03/16/2016 1:28 PM PDT) + + + + + + | Component | Value | Ref Range | Performed | Pathologist | | | | | At | Signature | + + + + + + | Color, | Yellow | Light Yellow, | [facility] | | | Urine | | Yellow, Straw | [facility] | | | | | | MEDICAL | | | | | | CENTER - | | | | | | LABORATORY | | + + + + + + | Clarity, | Clear | Clear | [facility] | | | Urine | | | [facility] | | | | | | MEDICAL | | | | | | CENTER - | | | | | | LABORATORY | | + + + + + + | pH, Urine | 5.0 | 5.0 - 8.0 | [facility] | | | | | | [facility] | | | | | | MEDICAL | | | | | | CENTER - | | | | | | LABORATORY | | + + + + + + | Specific | 1.009 | 1.001 - 1.030 | [facility] | | | [place], | | | [facility] | | | Urine | | | MEDICAL | | | | | | CENTER - | | | | | | LABORATORY | | + + + + + + | Protein, | Negative | Negative | [facility] | | | Urine | | | [facility] | | | | | | MEDICAL | | | | | | CENTER - | | | | | | LABORATORY | | + + + + + + | Blood, | Moderate (A) | Negative | [facility] | | | Urine | | | [facility] | | | | | | MEDICAL | | | | | | CENTER - | | | | | | LABORATORY | | + + + + + + | Glucose, | Negative | Negative | [facility] | | | Urine | | | [facility] | | | | | | MEDICAL | | | | | | CENTER - | | | | | | LABORATORY | | + + + + + + | Ketones, | Negative | Negative | [facility] | | | Urine | | | [facility] | | | | | | MEDICAL | | | | | | CENTER - | | | | | | LABORATORY | | + + + + + + | Bilirubin, | Negative | Negative | [facility] | | | Urine | | | [facility] | | | | | | MEDICAL | | | | | | CENTER - | | | | | | LABORATORY | | + + + + + + | Nitrite, | Negative | Negative | [facility] | | | Urine | | | [facility] | | | | | | MEDICAL | | | | | | CENTER - | | | | | | LABORATORY | | + + + + + + | Leukocyte | Trace (A) | Negative | [facility] | | | Esterase, | | | [facility] | | | Urine | | | MEDICAL | | | | | | CENTER - | | | | | | LABORATORY | | + + + + + + | Urobilinoge | Negative | 0.2 mg/dL, 1.0 | [facility] | | | n, Urine | | mg/dL, Negative | [facility] | | | | | | MEDICAL | | | | | | CENTER - | | | | | | LABORATORY | | + + + + + + | White Blood | 0-2 | 0 - 2 /HPF | [facility] | | | Cells, | | | [facility] | | | Urine | | | MEDICAL | | | | | | CENTER - | | | | | | LABORATORY | | + + + + + + | Red Blood | 25-50 (A) | 0 - 2 /HPF | [facility] | | | Cells, | | | [facility] | | | Urine | | | MEDICAL | | | | | | CENTER - | | | | | | LABORATORY | | + + + + + + | Squamous | 0-2 | 0 - 2 /LPF | [facility] | | | Epithelial | | | [facility] | | | Cells, | | | MEDICAL | | | Urine | | | CENTER - | | | | | | LABORATORY | | + + + + + + | Bacteria, | Negative | Negative /HPF | [facility] | | | Urine | | | [facility] | | | | | | MEDICAL | | | | | | CENTER - | | | | | | LABORATORY | | + + + + + + | Hyaline | 2-5 (A) | 0 - 2 /LPF | [facility] | | | Casts, | | | [facility] | | | Urine | | | MEDICAL | | | | | | CENTER - | | | | | | LABORATORY | | + + + + + + | Mucus, | Present (A) | Negative /LPF | [facility] | | | Urine | | | [facility] | | | | | | MEDICAL | | | | | | CENTER - | | | | | | LABORATORY | | + + + + + + | Urine | Urine Culture Set Up | | [facility] | | | Comment | | | [facility] | | | | | | MEDICAL | | | | | | CENTER - | | | | | | LABORATORY | | + + + + + + + + | Specimen | + + | Urine - Urine | | specimen obtained by | | single | | catheterization of | | bladder (specimen) | + + + + + + + | Performing | Address | City/State/Zipcode | Phone Number | | Organization | | | | + + + + + | [facility] | [address] | [place] | [phone] | | [facility] | | [address] | | | - LABORATORY | | | | + + + + + Culture, MRSA (03/16/2016 1:27 PM PDT) + + + + + + | Component | Value | Ref Range | Performed | Pathologist | | | | | At | Signature | + + + + + + | Culture | Negative for MRSA by | | [facility] | | | | chromogenic agar method | | [facility] | | | | | | MED[facility] [...] + | [facility] | [address] | [place] | [phone] | | [facility] | | [address] | | | - LABORATORY | | | | + + + + + Protime INR (03/16/2016 1:06 PM PDT) + + + + + + | Component | Value | Ref Range | Performed | Pathologist | | | | | At | Signature | + + + + + + | Prothrombin | 30.8 (H) | 11.3 - 13.9 | [facility] | | | Time | | seconds | [facility] | | | | | | MEDICAL | | | | | | CENTER - | | | | | | LABORATORY | | + + + + + + | INR | 2.87 (H)Comment: Usual | 0.90 - 1.10 | [facility] | | | | Oral Anticoagulation | | [facility] | | | | Range: 2.0 - [...] [address] | [place] | [phone] | | [facility] | | [address] | | | - LABORATORY | | | | + + + + + Troponin I (03/16/2016 1:06 PM PDT) + + + + + + | Component | Value | Ref Range | Performed | Pathologist | | | | | At | Signature | + + + + + + | Troponin I | 0.05Comment: Reference | <0.06 ng/mL | [facility] | | | | Ranges:0.00-0.06 = | | [facility] | | | | NORMAL>0.06 = | [...] | | | | | | [employer] | | | | | [...] [address] | [place] | [phone] | | [facility] | | [address] | | | - LABORATORY | | | | + + + + + B Type Natriuretic Peptide (03/16/2016 1:06 PM PDT) + + + + + + | Component | Value | Ref Range | Performed | Pathologist | | | | | At | Signature | + + + + + + | BNP | 1,028 (H) | <100 pg/mL | [facility] | | | | | | [facility] | | | | | | MEDICAL [...] [address] | [place] | [phone] | | [facility] | | [address] | | | - LABORATORY | | | | + + + + + CBC with Differential (03/16/2016 1:06 PM PDT) + + + + + + | Component | Value | Ref Range | Performed | Pathologist | | | | | At | Signature | + + + + + + | White Blood | 7.8 | 4.0 - 11.0 K/uL | [facility] | | | Cells | | | [facility] | | | | | | MEDICAL | | | | | | CENTER - | | | | | | LABORATORY | | + + + + + + | Red Blood | 4.35 | 4.30 - 5.70 | [facility] | | | Cells | | M/uL | [facility] | | | | | | MEDICAL | | | | | | CENTER - | | | | | | LABORATORY | | + + + + + + | Hemoglobin | 12.2 (L) | 13.5 - 18.0 | [facility] | | | | | g/dL | [facility] | | | | | | MEDICAL | | | | | | CENTER - | | | | | | LABORATORY | | + + + + + + | Hematocrit | 37.2 (L) | 40.0 - 51.0 % | [facility] | | | | | | [facility] | | | | | | MEDICAL | | | | | | CENTER - | | | | | | LABORATORY | | + + + + + + | MCV | 85.4 | 83.0 - 101.0 fL | [facility] | | | | | | [facility] | | | | | | MEDICAL | | | | | | CENTER - | | | | | | LABORATORY | | + + + + + + | MCH | 28.0 | 28.0 - 35.0 pg | [facility] | | | | | | [facility] | | | | | | MEDICAL | | | | | | CENTER - | | | | | | LABORATORY | | + + + + + + | MCHC | 32.8 | 32.0 - 36.0 | [facility] | | | | | g/dL | [facility] | | | | | | MEDICAL | | | | | | CENTER - | | | | | | LABORATORY | | + + + + + + | RDW-CV | 16.2 (H) | <15.0 % | [facility] | | | | | | [facility] | | | | | | MEDICAL | | | | | | CENTER - | | | | | | LABORATORY | | + + + + + + | Platelet | 166 | 140 - 440 K/uL | [facility] | | | Count | | | [facility] | | | | | | MEDICAL | | | | | | CENTER - | | | | | | LABORATORY | | + + + + + + | MPV | 8.0 | fL | [facility] | | | | | | [facility] | | | | | | MEDICAL | | | | | | CENTER - | | | | | | LABORATORY | | + + + + + + | % | 57.4 | 45.0 - 82.0 % | [facility] | | | Neutrophils | | | [facility] | | | | | | MEDICAL | | | | | | CENTER - | | | | | | LABORATORY | | + + + + + + | % | 28.5 | 20.0 - 45.0 % | [facility] | | | Lymphocytes | | | [facility] | | | | | | MEDICAL | | | | | | CENTER - | | | | | | LABORATORY | | + + + + + + | % Monocytes | 11.7 | 4.0 - 12.0 % | [facility] | | | | | | [facility] | | | | | | MEDICAL | | | | | | CENTER - | | | | | | LABORATORY | | + + + + + + | % | 1.7 | 0.0 - 5.0 % | [facility] | | | Eosinophils | | | [facility] | | | | | | MEDICAL | | | | | | CENTER - | | | | | | LABORATORY | | + + + + + + | % Basophils | 0.7 | 0.0 - 1.0 % | [facility] | | | | | | [facility] | | | | | | MEDICAL | | | | | | CENTER - | | | | | | LABORATORY | | + + + + + + | Absolute | 4.50 | 1.80 - 8.50 | [facility] | | | Neutrophils | | K/uL | [facility] | | | | | | MEDICAL | | | | | | CENTER - | | | | | | LABORATORY | | + + + + + + | Absolute | 2.20 | 0.60 - 3.20 | [facility] | | | Lymphocytes | | K/uL | [facility] | | | | | | MEDICAL | | | | | | CENTER - | | | | | | LABORATORY | | + + + + + + | Absolute | 0.90 | 0.00 - 1.00 | [facility] | | | Monocytes | | K/uL | [facility] | | | | | | MEDICAL | | | | | | CENTER - | | | | | | LABORATORY | | + + + + + + | Absolute | 0.10 | 0.00 - 0.40 | [facility] | | | Eosinophils | | K/uL | [facility] | | | | | | MEDICAL | | | | | | CENTER - | | | | | | LABORATORY | | + + + + + + | Absolute | 0.10 | 0.00 - 0.10 | [facility] | | | Basophils | | K/uL | [facility] | | | | | | MEDICAL [...] + | [facility] | [address] | [place] | [phone] | | [facility] | | [address] | | | - LABORATORY | | | | + + + + + Comprehensive Metabolic Panel (03/16/2016 1:06 PM PDT) + + + + + + | Component | Value | Ref Range | Performed | Pathologist | | | | | At | Signature | + + + + + + | Na | 139 | 136 - 149 | [facility] | | | | | mmol/L | [facility] | | | | | | MEDICAL | | | | | | CENTER - | | | | | | LABORATORY | | + + + + + + | K | 4.5 | 3.5 - 5.1 | [facility] | | | | | mmol/L | [facility] | | | | | | MEDICAL | | | | | | CENTER - | | | | | | LABORATORY | | + + + + + + | Cl | 98 | 98 - 109 mmol/L | [facility] | | | | | | [facility] | | | | | | MEDICAL | | | | | | CENTER - | | | | | | LABORATORY | | + + + + + + | CO2 | 32 (H) | 24 - 31 mmol/L | [facility] | | | | | | [facility] | | | | | | MEDICAL | | | | | | CENTER - | | | | | | LABORATORY | | + + + + + + | Anion Gap | 9 | 3 - 16 mmol/L | [facility] | | | | | | [facility] | | | | | | MEDICAL | | | | | | CENTER - | | | | | | LABORATORY | | + + + + + + | Glucose | 107 | 70 - 109 mg/dL | [facility] | | | | | | [facility] | | | | | | MEDICAL | | | | | | CENTER - | | | | | | LABORATORY | | + + + + + + | BUN | 40 (H) | 7 - 18 mg/dL | [facility] | | | | | | [facility] | | | | | | MEDICAL | | | | | | CENTER - | | | | | | LABORATORY | | + + + + + + | Creatinine | 1.55 (H) | 0.60 - 1.30 | [facility] | | | | | mg/dL | [facility] | | | | | | MEDICAL | | | | | | CENTER - | | | | | | LABORATORY | | + + + + + + | eGFR if not | 43 (L)Comment: | >=60 | [facility] | | | | GLOMERULAR FILTRATION | mL/min/1.73m2 | [facility] | | | [employer] | RATE,ESTIMATED | | MEDICAL | | | | mL/min/1.47c4Opkc than | | CENTER - | | [...] + + + + | Calcium | 9.1 | 8.3 - 10.5 | [facility] | | | | | mg/dL | [facility] | | | | | | MEDICAL | | | | | | CENTER - | | | | | | LABORATORY | | + + + + + + | Albumin | 3.4 | 3.2 - 5.0 g/dL | [facility] | | | | | | [facility] | | | | | | MEDICAL | | | | | | CENTER - | | | | | | LABORATORY | | + + + + + + | Bilirubin | 1.3Comment: This is an | 0.1 - 1.5 mg/dL | [facility] | | | Total | appended report. These | | [facility] | | | | results have been | | MEDICAL | | | | appended to a previously | | CENTER - | | | | preliminary verified | | LABORATORY | | | | report. | | | | + + + + + + | Total | 6.2 | 6.0 - 7.8 g/dL | [facility] | | | Protein | | | [facility] | | | | | | MEDICAL | | | | | | CENTER - | | | | | | LABORATORY | | + + + + + + | AST | 38Comment: This is an | 10 - 42 U/L | [facility] | | | | appended report. These | | [facility] | | | | results have been | | MEDICAL | | | | appended to a previously | | CENTER - | | | | preliminary verified | | LABORATORY | | | | report. | | | | + + + + + + | ALT | 15Comment: This is an | 6 - 45 U/L | [facility] | | | | appended report. These | | [facility] | | | | results have been | | MEDICAL | | | | appended to a previously | | CENTER - | | | | preliminary verified | | LABORATORY | | | | report. | | | | + + + + + + | Alkaline | 39 (L)Comment: This is | 40 - 110 U/L | [facility] | | | Phosphatase | an appended report. | | [facility] | | | | These results have been | | MEDICAL | | | | appended to a previously | | CENTER - | | | | preliminary verified | | LABORATORY | | | | report. | | | | + + + + + + | Globulin | 2.8 | 2.1 - 3.8 g/dL | [facility] | | | | | | [facility] | | | | | | MEDICAL | | | | | | CENTER - | | | | | | LABORATORY | | + + + + + + | Albumin/Mary Alice | 1.2 | 0.8 - 2.0 | [facility] | | | bulin Ratio | | | [facility] | | | | | | MEDICAL | | | | | | CENTER - | | | | | | LABORATORY | | + + + + + + | BUN/Creatin | 25.8 | | [facility] | | | ine Ratio | | | [facility] | | | | | | MEDICAL [...] + | [facility] | [address] | [place] | [phone] | | [facility] | | [address] | | | - LABORATORY | | | | + + + + + T4, Free (03/16/2016 1:06 PM PDT) + +-------+ + + + | Component | Value | Ref Range | Performed | Pathologist | | | | | At | Signature | + +-------+ + + + | FT4 | 1.1 | 0.6 - 1.1 ng/dL | [facility] | | | | | [...] + + + + + | [facility] | [address] | [place] | [phone] | | [facility] | | [address] | | | - LABORATORY | | | | + + + + + Magnesium (03/16/2016 1:06 PM PDT) + +-------+ + + + | Component | Value | Ref Range | Performed | Pathologist | | | | | At | Signature | + +-------+ + + + | Magnesium | 2.5 | 1.8 - 2.5 mg/dL | [facility] [...] [address] | [place] | [phone] | | [facility] | | [address] | | | - LABORATORY | | | | + + + + + ECG 12 lead (03/16/2016 12:53 PM PDT) + + + + + + | Component | Value | Ref Range | Performed | Pathologist | | | | | At | Signature | + + + + + + | VENTRICULAR | 87 | BPM | [facility] | | | RATE EKG | | | | | + + + + + + | ATRIAL RATE | 234 | BPM | [facility] | | + + + + + + | QRS | 136 | ms | [facility] | | | DURATION | | | | | + + + + + + | Q-T | 370 | ms | [facility] | | | INTERVAL | | | | | + + + + + + | Q-T | 445 | ms | [facility] | | | INTERVAL | | | | | | (CORRECTED) | | | | | + + + + + + | QRS AXIS | -33 | degrees | [facility] | | + + + + + + | T AXIS | 163 | degrees | [facility] | | + + + + + + | INTERPRETAT | atrial flutter with | | [facility] | | | ION TEXT | variable block.Left axis | | | | | | deviationleft bundle | | | | | | branch blockAbnormal | | | | | | ECGWhen compared with | | | | | | ECG of 24-FEB-2016 | | | | | | 19:57,there is no T-wave | | | | | | inversion in | | | | | | anterolateral | | | | | | leadsConfirmed by | | | | | | FREDERICK CHARLTON, BINU ([id number]) | | | | | | on 03/18/2016 9:26:03 AM | | | | + + [...] | | | + +---------+ + + LABS - EXTERNAL SCAN (03/16/2016 12:00 AM PDT) + + + | Narrative | Performed At | + + + | Ordered by an | | | unspecified provider. | | + + + ECG - EXTERNAL SCAN (03/16/2016 12:00 AM PDT) + + + | Narrative | Performed At | + + + | Ordered by an | | | unspecified provider. | | + + + IMAGING REPORT - EXTERNAL SCAN (03/12/2016 12:00 AM PDT) + + + | Narrative | Performed At | + + + | Ordered by an | | | unspecified provider. | | + + + ECHO-EXTERNAL SCAN (03/12/2016 12:00 AM PDT) + + + | Narrative | Performed At | + + + | Ordered by an | | | unspecified provider. | | + + + LABS - EXTERNAL SCAN (03/05/2016 12:00 AM PDT) + + + | Narrative | Performed At | + + + | Ordered by an | | | unspecified provider. | | + + + documented in this encounter Visit Diagnoses + + | Diagnosis | + + | Acute on chronic diastolic (congestive) heart failure (HCC) | + + | Persistent atrial fibrillation (HCC) Atrial fibrillation | + + | H/O aortic valve replacement Heart valve replaced by other means | + + | Hard of hearing, unspecified laterality | + + | CRUZITO (obstructive sleep apnea) Obstructive sleep apnea (adult) (pediatric) | + + | Pulmonary HTN (HCC) Other chronic pulmonary heart diseases | + + | Venous stasis of both lower extremities | + + | Atrial fibrillation with RVR (HCC) Atrial fibrillation | + + | Paroxysmal atrial fibrillation (HCC) Atrial fibrillation | + + | Acute renal failure, unspecified acute renal failure type (HCC) | + + | Atrial fibrillation, unspecified type (HCC) | + + | Coronary artery 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, unspecified | | vessel or lesion type | + + | Acute on chronic diastolic congestive heart failure (HCC) Acute on chronic diastolic | | heart failure | + + | Hard of hearing, bilateral | + + | Essential hypertension with goal blood pressure less than 130/85 | + + | Liver cirrhosis (HCC) Cirrhosis of liver without mention of alcohol | + + | Wound of left leg Open wound of knee, leg (except thigh), and ankle, without mention | | of complication | + + | Hard of hearing Unspecified hearing loss | + + | Remote Device Interrogation - Primary Fitting and adjustment of cardiac pacemaker | + + | Pacemaker Dual Chamber, MRI compatible, 05/14/17 [facility] Cardiac pacemaker | | in situ | + + | 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 Administered Medications + +---------+ + +-------+------+ | Medication Order | MAR | Action | Dose | Rate | Site | | | Action | Date | | | | + +---------+ + +-------+------+ | amiodarone (CORDARONE) 1.8 | New Bag | 03/18/20 | 1 mg/min | 33.3 | | | mg/mL in dextrose 5% 500 mL | | 16 10:40 | | mL/hr | | | infusion 1 mg/min (33.3333 | | AM PDT | | | | | mL/hr, rounded to 33.3 mL/hr), at | | | | | | | 33.3 mL/hr, Intravenous, | | | | | | | TITRATED, Starting 03/18/16 at | | | | | | | 1015, For 6 hours, Use 0.22 | | | | | | | micron filter for | | | | | | | administration., | | | | | | + +---------+ + +-------+------+ +---+---+ | | | +---+---+ + + + +--------+-------+---+ | amiodarone (CORDARONE) 1.8 | Rate/Dos | 03/18/20 | 0.5 | 16.7 | | | mg/mL in dextrose 5% 500 mL | e Change | 16 5:01 | mg/min | mL/hr | | | infusion 0.5 mg/min (16.6667 | | PM PDT | | | | | mL/hr, rounded to 16.7 mL/hr), at | | | | | | | 16.7 mL/hr, Intravenous, | | | | | | | TITRATED, Starting 03/18/16 at | | | | | | | 1640, For 18 hours, Use 0.22 | | | | | | | micron filter for | | | | | | | administration., | | | | | | + + + +--------+-------+---+ +---+---+ | | | +---+---+ + +-------+ +--------+---+---+ | amiodarone (PACERONE) tablet | Given | 03/21/20 | 400 mg | | | | 400 mg 400 mg, Oral, 2 TIMES | | 16 1:12 | | | | | DAILY, First dose (after last | | PM PDT | | | | | modification) on 03/19/16 at | | | | | | | 1100 | | | | | | + +-------+ +--------+---+---+ +-------+ +--------+---+---+ | Given | 03/21/20 | 400 mg | | | | | 16 1:17 | | | | | | AM PDT | | | | +-------+ +--------+---+---+ | Given | 03/20/20 | 400 mg | | | | | 16 12:21 | | | | | | PM PDT | | | | +-------+ +--------+---+---+ +---+---+ | | | +---+---+ + +-------+ +--------+-------+---+ | amiodarone in dextrose | Given | 03/18/20 | 150 mg | 600 | | | (NEXTERONE) 150 mg/100 mL bolus | | 16 10:13 | | mL/hr | | | 150 mg 150 mg, Intravenous, | | AM PDT | | | | | Administer over 10 Minutes, ONCE, | | | | | | | 03/18/16 at 1015, For 1 dose, | | | | | | | For Rhythm Control, | | | | | | + +-------+ +--------+-------+---+ +---+---+ | | | +---+---+ + +-------+ +-------+---+---+ | atorvaSTATin (LIPITOR) tablet | Given | 03/20/20 | 10 mg | | | | 10 mg 10 mg, Oral, NIGHTLY, | | 16 8:07 | | | | | First dose on Sat03/16/16 at 2100 | | PM PDT | | | | + +-------+ +-------+---+---+ +-------+ +-------+---+---+ | Given | 03/19/20 | 10 mg | | | | | 16 8:10 | | | | | | PM PDT | | | | +-------+ +-------+---+---+ | Given | 03/18/20 | 10 mg | | | | | 16 8:29 | | | | | | PM PDT | | | | +-------+ +-------+---+---+ +---+---+ | | | +---+---+ + +-------+ +--------+---+---+ | cyanocobalamin (VITAMIN B-12) | Given | 03/21/20 | 1,000 | | | | tablet 1,000 mcg 1,000 mcg, | | 16 9:00 | mcg | | | | Oral, DAILY, First dose on Sat | | AM PDT | | | | | 03/17/16 at 0900 | | | | | | + +-------+ +--------+---+---+ +-------+ +--------+---+---+ | Given | 03/20/20 | 1,000 | | | | | 16 8:01 | mcg | | | | | AM PDT | | | | +-------+ +--------+---+---+ | Given | 03/19/20 | 1,000 | | | | | 16 8:29 | mcg | | | | | AM PDT | | | | +-------+ +--------+---+---+ +---+---+ | | | +---+---+ + + + + + +---+ | diltiazem (CARDIZEM) 1 mg/mL in | Rate/Dos | 03/17/20 | 10 mg/hr | 10 mL/hr | | | sodium chloride 0.9% 125 mL | e Change | 16 8:51 | | | | | infusion 5-15 mg/hr (5-15 | | AM PDT | | | | | mL/hr), at 5-15 mL/hr, | | | | | | | Intravenous, TITRATED, Starting | | | | | | | 03/16/16 at 1315, Initial | | | | | | | dose: 5 mg/hr, Goal: HR less than | | | | | | | 100 | | | | | | + + + + + +---+ + + + + +---+ | Rate/Dose Change | 03/17/20 | 5 mg/hr | 5 mL/hr | | | | 16 8:17 | | | | | | AM PDT | | | | + + + + +---+ | New Bag | 03/17/20 | 10 mg/hr | 10 mL/hr | | | | 16 7:51 | | | | | | AM PDT | | | | + + + + +---+ +---+---+ | | | +---+---+ + +-------+ +-------+---+---+ | diltiazem (CARDIZEM) tablet 60 | Given | 03/18/20 | 60 mg | | | | mg 60 mg, Oral, EVERY 6 HOURS (4 | | 16 6:52 | | | | | times per day), First dose on | | AM PDT | | | | | 03/17/16 at 1000 | | | | | | + +-------+ +-------+---+---+ +-------+ +-------+---+---+ | Given | 03/18/20 | 60 mg | | | | | 16 12:10 | | | | | | AM PDT | | | | +-------+ +-------+---+---+ | Given | 03/17/20 | 60 mg | | | | | 16 5:26 | | | | | | PM PDT | | | | +-------+ +-------+---+---+ +---+---+ | | | +---+---+ + +-------+ +--------+---+---+ | docusate calcium (SURFAK) | Given | 03/18/20 | 240 mg | | | | capsule 240 mg 240 mg, Oral, 2 | | 16 8:29 | | | | | TIMES DAILY PRN, Constipation, | | PM PDT | | | | | Starting Sat03/16/16 at 1254 | | | | | | + +-------+ +--------+---+---+ +---+---+ | | | +---+---+ + +-------+ +------+---+---+ | donepezil (ARICEPT) tablet 5 mg | Given | 03/20/20 | 5 mg | | | | 5 mg, Oral, NIGHTLY, First dose | | 16 8:08 | | | | | on Sat03/16/16 at 2100 | | PM PDT | | | | + +-------+ +------+---+---+ +-------+ +------+---+---+ | Given | 03/19/20 | 5 mg | | | | | 16 8:11 | | | | | | PM PDT | | | | +-------+ +------+---+---+ | Given | 03/18/20 | 5 mg | | | | | 16 8:29 | | | | | | PM PDT | | | | +-------+ +------+---+---+ +---+---+ | | | +---+---+ + +-------+ +-------+---+---+ | fenofibrate (LOFIBRA) tablet 54 | Given | 03/21/20 | 54 mg | | | | mg 54 mg, Oral, DAILY, First | | 16 9:00 | | | | | dose on 03/17/16 at 0900 | | AM PDT | | | | + +-------+ +-------+---+---+ +-------+ +-------+---+---+ | Given | 03/20/20 | 54 mg | | | | | 16 8:01 | | | | | | AM PDT | | | | +-------+ +-------+---+---+ | Given | 03/19/20 | 54 mg | | | | | 16 8:28 | | | | | | AM PDT | | | | +-------+ +-------+---+---+ +---+---+ | | | +---+---+ + +-------+ +-------+---+---+ | furosemide (LASIX) injection 40 | Given | 03/21/20 | 40 mg | | | | mg 40 mg, Intravenous, 2 TIMES | | 16 9:00 | | | | | DAILY 0800 & 1600, First dose on | | AM PDT | | | | | 03/18/16 at 0845 | | | | | | + +-------+ +-------+---+---+ +-------+ +-------+---+---+ | Given | 03/20/20 | 40 mg | | | | | 16 3:27 | | | | | | PM PDT | | | | +-------+ +-------+---+---+ | Given | 03/20/20 | 40 mg | | | | | 16 7:56 | | | | | | AM PDT | | | | +-------+ +-------+---+---+ +---+---+ | | | +---+---+ + +-------+ +-------+---+---+ | furosemide (LASIX) tablet 40 mg | Given | 03/17/20 | 40 mg | | | | 40 mg, Oral, 2 TIMES DAILY 0800 | | 16 5:26 | | | | | & 1600, First dose on Fri | | PM PDT | | | | | 03/16/16 at 1600 | | | | | | + +-------+ +-------+---+---+ +-------+ +-------+---+---+ | Given | 03/17/20 | 40 mg | | | | | 16 7:06 | | | | | | AM PDT | | | | +-------+ +-------+---+---+ | Given | 03/16/20 | 40 mg | | | | | 16 5:30 | | | | | | PM PDT | | | | +-------+ +-------+---+---+ +---+---+ | | | +---+---+ + +-------+ + +---+---+ | HYDROcodone-acetaminophen | Given | 03/19/20 | 1 tablet | | | | (NORCO) 5-325 mg per tablet 1 | | 16 3:48 | | | | | tablet 1 tablet, Oral, EVERY 6 | | AM PDT | | | | | HOURS PRN, Pain, Starting Fri | | | | | | | 03/16/16 at 1239 | | | | | | + +-------+ + +---+---+ +-------+ + +---+---+ | Given | 03/18/20 | 1 tablet | | | | | 16 6:52 | | | | | | AM PDT | | | | +-------+ + +---+---+ | Given | 03/17/20 | 1 tablet | | | | | 16 8:15 | | | | | | PM PDT | | | | +-------+ + +---+---+ +---+---+ | | | +---+---+ + +-------+ +--------+---+---+ | levothyroxine (SYNTHROID, | Given | 03/21/20 | 25 mcg | | | | LEVOTHROID) tablet 25 mcg 25 | | 16 6:40 | | | | | mcg, Oral, DAILY BEFORE | | AM PDT | | | | | BREAKFAST, First dose on Fri | | | | | | | 03/16/16 at 1315, Give before | | | | | | | breakfast., | | | | | | + +-------+ +--------+---+---+ +-------+ +--------+---+---+ | Given | 03/20/20 | 25 mcg | | | | | 16 7:04 | | | | | | AM PDT | | | | +-------+ +--------+---+---+ | Given | 03/19/20 | 25 mcg | | | | | 16 7:43 | | | | | | AM PDT | | | | +-------+ +--------+---+---+ +---+---+ | | | +---+---+ + +-------+ +-------+---+---+ | metoprolol succinate | Given | 03/17/20 | 75 mg | | | | (TOPROL-XL) ER tablet 75 mg 75 | | 16 8:38 | | | | | mg, Oral, DAILY, First dose on | | AM PDT | | | | | 03/17/16 at 0900, Tablet may | | | | | | | be cut where scored but do not | | | | | | | crush., | | | | | | + +-------+ +-------+---+---+ +---+---+ | | | +---+---+ + +-------+ +--------+---+---+ | metoprolol tartrate (LOPRESSOR) | Given | 03/18/20 | 2.5 mg | | | | 1 mg/mL injection Starting Sun | | 16 5:09 | | | | | 03/18/16 at 1705, For 1 dose, | | PM PDT | | | | | MAGUI MCINTOSH: dara | | | | | | | override, | | | | | | + +-------+ +--------+---+---+ +---+---+ | | | +---+---+ + +-------+ +--------+---+---+ | metoprolol tartrate (LOPRESSOR) | Given | 03/19/20 | 2.5 mg | | | | injection 2.5 mg 2.5 mg, | | 16 9:10 | | | | | Intravenous, EVERY 2 HOURS PRN, | | AM PDT | | | | | HR persistently greater than 115, | | | | | | | Starting 03/19/16 at 0839 | | | | | | + +-------+ +--------+---+---+ +---+---+ | | | +---+---+ + + + +---+---+---+ | propofol (DIPRIVAN) 10 mg/mL | Given by | 03/19/20 | | | | | Starting 03/19/16 at 1248, For | Other | 16 1:00 | | | | | 1 dose, RITESH HCI: dara | | PM PDT | | | | | override, | | | | | | + + + +---+---+---+ +---+---+ | | | +---+---+ + +-------+ +-------+---+---+ | propofol (DIPRIVAN) injection | Given | 03/19/20 | 50 mg | | | | 100 mg 100 mg, Intravenous, | | 16 12:47 | | | | | ONCE, Sat03/19/16 at 1300, For 1 | | PM PDT | | | | | dose, Shake well. Do not filter. | | | | | | | Expires 12 hours after spiked., | | | | | | + +-------+ +-------+---+---+ +---+---+ | | | +---+---+ + +-------+ +-------+---+---+ | traZODone (DESYREL) tablet 50 | Given | 03/20/20 | 50 mg | | | | mg 50 mg, Oral, NIGHTLY, First | | 16 8:07 | | | | | dose on Sat03/16/16 at 2100 | | PM PDT | | | | + +-------+ +-------+---+---+ +-------+ +-------+---+---+ | Given | 03/19/20 | 50 mg | | | | | 16 8:10 | | | | | | PM PDT | | | | +-------+ +-------+---+---+ | Given | 03/18/20 | 50 mg | | | | | 16 8:29 | | | | | | PM PDT | | | | +-------+ +-------+---+---+ +---+---+ | | | +---+---+ + +-------+ +------+---+---+ | warfarin (COUMADIN) tablet 3 mg | Given | 03/20/20 | 3 mg | | | | 3 mg, Oral, Once - Warfarin, | | 16 6:15 | | | | | First dose on Sat03/20/16 at | | PM PDT | | | | | 1800, For 1 dose, Reproductive | | | | | | | Risk: Use appropriate handling | | | | | | | precautions. Drug education | | | | | | | required., | | | | | | + +-------+ +------+---+---+ +---+---+ | | | +---+---+ + +-------+ +------+---+---+ | warfarin (COUMADIN) tablet 5 mg | Given | 03/17/20 | 5 mg | | | | 5 mg, Oral, Once - Warfarin, | | 16 5:26 | | | | | First dose on 03/17/16 at | | PM PDT | | | | | 1800, For 1 dose, Reproductive | | | | | | | Risk: Use appropriate handling | | | | | | | precautions. Drug education | | | | | | | required., | | | | | | + +-------+ +------+---+---+ +---+---+ | | | +---+---+ + +-------+ +------+---+---+ | warfarin (COUMADIN) tablet 7 mg | Given | 03/16/20 | 7 mg | | | | 7 mg, Oral, Once - Warfarin, | | 16 5:30 | | | | | First dose on Sat03/16/16 at | | PM PDT | | | | | 1800, For 1 dose, Reproductive | | | | | | | Risk: Use appropriate handling | | | | | | | precautions. Drug education | | | | | | | required., | | | | | | + +-------+ +------+---+---+ +---+---+ | | | +---+---+ documented in this encounter
--- OUTSIDE RECORDS SUMMARY | ~2020-04-29 | XMS | Encounter Summary ---
Demographics + + + | Address | [address] | | | [place] [address] | + + + | Home Phone | | + + + | Preferred Language | Unknown | + + + | Marital Status | | + + + | Congregational Affiliation | 1061 | + + + | Race | Unknown | + + + | Ethnic Group | Unknown | + + + Author + + + | Author | [facility] | | | and [place] | + + + | Organization | [facility] | | | [...] Team Providers + +------+ + | Care Rip And Groove Machine Operator Name | Role | Phone [...] Monitor | CARDIOLOGY [address] [place] | Interrogation | | | | [place], | [place], | (Primary Dx); | | | | [place] [address] | [place] [address] | Pacemaker Dual | | | | [phone] | [phone] | Chamber, MRI | | | | [...] Paceart documentation and remote PDF scanned into Applifier for remote interrogation re sults. Data collected [...] Dx); | | | | | [place] [address] | Pacemaker Dual | | | | | [phone] | Chamber, MRI | | | | [...] [place] | | | | | | [address] | | | | | | | [...] remote PDF scanned into | | | Applifier for remote interrogation results. Data collected by [...]
--- OUTSIDE RECORDS SUMMARY | ~2020-04-29 | XMS | Encounter Summary ---
Demographics + + + | Address | [address] | | | [place] [address] | + + + | Home Phone | | + + + | Preferred Language | Unknown | + + + | Marital Status | | + + + | Jain Affiliation | 1061 | + + + | Race | Unknown | + + + | Ethnic Group | Unknown | + + + Author + + + | Author | [facility] | | | and [place] | + + + | Organization | [facility] | | | [...] Team Providers + +------+ + | Care Piece Maker Name | Role | Phone | + +------+ + | Antonio Paulino MD | PCP | | + +------+ + Reason for Visit +--------+--------+ + | Reason | Onset | Comments | | | Date | | +--------+--------+ + | Other | 07/22/ | Concern for RA lead function | | | 2019 | | +--------+--------+ + Encounter Details +--------+ + + + + | Date | Type | Department | Care Team | Description | +--------+ + + + + | 07/22/ | Telephone | [facility] | Cruzito Bird, | Other (Concern for | | 2019 | | MAMIE [address] [place] | RA lead function) | | | | [place], | [place], | | | | | [place] [address] | [place] [address] | | | | | [phone] | [phone] | | | | | | | [...] Telephone Encounter - Nancy Dougherty RN - 07/22/2019 11:34 AM PDTReceived remote showing la office atrial threshold was 0.875 but remote is now 1.75 @ 0.4 and it was not able to sen se at all in the atrium. Patients atrial pacing has increased from 15% 06/01/17 to >99% . Advised Johnny Liwe would like to have Johnny Myerscome in for a device check in office t o test the atrial lead. He is agreeable and this is scheduled for Saturday07/27/19 at 11AM. El ectronically signed by: Nancy Dougherty RN 07/22/2019 11:37 documented in this encounter Plan of Treatment +--------+ + + + + | Date | Type | Specialty | Care Team | Description | +--------+ + + + + | 07/20/ | Implant | Cardiology | Cruzito Bird, | Remote Device | | 2019 | Monitor | | [address] [facility] | Interrogation | | | | | [place], | (Primary Dx); | | | | | [place] [address] | Pacemaker Dual | | | | | [phone] | Chamber, MRI | | | | [...] [place] | | | | | | [id number] | | | | | | | | +--------+ + + + + documented as of this encounter Visit Diagnoses Not on filedocumented in this encounter"
--- OUTSIDE RECORDS SUMMARY | ~2020-04-29 | XMS | Encounter Summary ---
Demographics + + + | Address | [address] | | | [place] [address] | + + + | Home Phone | | + + + | Preferred Language | Unknown | + + + | Marital Status | | + + + | Hindu Affiliation | 1061 | + + + | Race | Unknown | + + + | Ethnic Group | Unknown | + + + Author + + + | Author | [facility] | | | and [place] | + + + | Organization | [facility] | | | and [place] | + + + | Address | Unknown | + + + | Phone | Unavailable | + + + Support + + +---------+ + | Name | Relationship | Address | Phone | + + +---------+ + | Johnny Siddiqi Jr. | ECON | Unknown | | + + +---------+ + | Cassandra Bneitez | ECON | NA | | | | | NA, | | + + +---------+ + | Rl Siddiqi | ECON | Unknown | | + + +---------+ + | Chris Siddiqi | ECON | Unknown | | + + +---------+ + | Cassandra Guthrie | ECON | Unknown | | + + +---------+ + Care Team Providers + +------+ + | Care Apiarist Name | Role | Phone | + +------+ + | Antonio Paulino MD | PCP | | + +------+ + Reason for Visit +---------+--------+ + | Reason | Onset | Comments | | | Date | | +---------+--------+ + | Results | 06/05/ | | | | 2018 | | +---------+--------+ + Encounter Details +--------+ + + + + | Date | Type | Department | Care Team | Description | +--------+ + + + + | 06/05/ | Telephone | [facility] [place] | Emely Gabriel, | Results | | 2017 | | CARDIOLOGY [address] | AIR TABLE OPERATOR [address] [place] | | | | | [place], | [place] | | | | | [place] [address] | [address] | | | | | [phone] | | | +--------+ + + + [...] this encounter Miscellaneous Notes Telephone Encounter - Isabel Colbert RN - 06/05/2018 10:23 AM PDT Patient's son Lon johnson notified, sent to scheduling to schedule appointment in 6-8 weeks. Faxed lab orders to [facility] ..........................................Isabel Colbert RN on 8 at 10:48 elephone Encount er - Isabel Colbert RN - 06/05/2018 9:23 AM PDTSpoke with patient and son Johnny. The son asked me to call him back at his home number after 15 minutes. Left message on [employer] to return call ..........................................Isabel Colbert RN on 8 at 9:47 elephone Emely Schreiber ARNP - 06/05/2018 7:59 AM PDTPlease call the patient and let him know that his labs show he is being affected by the amiodarone and could be having toxicity with his thyroid. Please have him stop the amiodarone, and schedule him for office visit and grant ce interrogation in [address] Bird to discuss options for switching to alte rnate antiarrhythmic if needed as that is the length of time needed for amiodarone to wear o ff for this patient. Have labs rechecked with TSH prior to visit. Between now and then, if precious johnson notices any palpitations, he should call our office to let us know. Thanks! .............. .............................AMANDA Mcmillan on 06/05/18 at 8:00 Electronically sign ed by AMANDA Hurtado at 06/05/2018 8:01 AM PDTdocumented in this encounter Plan of Treatment +--------+ + + + + | Date | Type | Specialty | Care Team | Description | +--------+ + + + + | 07/20/ | Implant | Cardiology | Cruzito Bird, | Remote Device | | 2019 | Monitor | | MD [address] [place] | Interrogation | | | | | [place], | (Primary Dx); | | | | | [place] [address] | Pacemaker Dual | | | | | [phone] | Chamber, MRI | | | | | | compatible, 05/14/17 | | | | | | [facility]; | | | | | | 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) | +--------+ + + + + | 01/05/ | Office | Cardiology | Emely Gabriel, | | | 2020 | Visit | | AIR TABLE OPERATOR [address] [place] | | | | | | [place], [place] | | | | | | [address] | | | | | | | | +--------+ + + + + +------+------+--------+ + + | Name | Type | Priori | Associated Diagnoses | Order Schedule | | | | ty | | | +------+------+--------+ + + | TSH | Lab | Routin | Hypothyroidism due | Expected: | | | | e | to amiodarone | 06/05/2018, Expires: | | | | | | 06/05/2019 | +------+------+--------+ + + documented as of this encounter Visit Diagnoses + + | Diagnosis | + + | 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
--- OUTSIDE RECORDS SUMMARY | ~2020-04-29 | XMS | Encounter Summary ---
Demographics + + + | Address | [address] | | | [place] [address] | + + + | Home Phone | | + + + | Preferred Language | Unknown | + + + | Marital Status | | + + + | Druze Affiliation | 1061 | + + + | Race | Unknown | + + + | Ethnic Group | Unknown | + + + Author + + + | Author | [facility] | | | and [place] | + + + | Organization | [facility] | | | [...] Team Providers + +------+ + | Care Commutator Operator Name | Role | Phone | [...] CARDIOLOGY [address] | [place] [address] [place] | in high output mode. | | | | [place], | [place], | ) | | | | [place] [address] | [place] [address] | | | | | [phone] | [phone] | | | | | | | [...] call over to patients caregiver and have [facility] send a manual report. Electronically signed [...] | 2019 | Monitor | | [address] [facility] | Interrogation | | | | | [place], | (Primary Dx); | | | | | [place] [address] | Pacemaker Dual | | | | | [phone] | Chamber, MRI | | | | [...]
--- OUTSIDE RECORDS SUMMARY | ~2020-04-29 | XMS | Encounter Summary ---
Demographics + + + | Address | [address] | | | [place] [address] | + + + | Home Phone | | + + + | Preferred Language | Unknown | + + + | Marital Status | | + + + | Religion Affiliation | 1061 | + + + | Race | Unknown | + + + | Ethnic Group | Unknown | + + + Author + + + | Author | [facility] | | | and [place] | + + + | Organization | [facility] | | | and [...] Team Providers + +------+ + | Care Kiln Transfer Operator Name | Role | Phone | + +------+ + | Mauriico Goldberg | PCP | | | MD | | | + +------+ + Reason for Visit + + + | Reason | Comments | + + + | Tachycardia | [facility] | + + + Encounter Details +--------+ + + + + | Date | Type | Department | Care Team | Description | +--------+ + + + + | 02/23/ | Emergency | [facility] | Benjamín Candelaria, | Atrial flutter with | | 2016 | | [facility] | [address] | rapid ventricular | | | | CENTER [address] | [address] | response (HCC) | | | | [place] | [place] [address] | (Primary Dx); | | | | [address] | [phone] | Palpitations; | | | | [phone] | | Supratherapeutic INR | | | | | Yordan Candelario MD | | | | | | [address] | | | | | | [place] | | | | | | [address] | | | | | | | [...] + + + | Blood Pressure | 125/71 | 02/24/2016 9:46 PM | | | | | PDT | | + + + + + | Pulse | 123 | 02/24/2016 9:46 PM | | | | | PDT | | + + + + + | Temperature | 36.8 C (98.3 F) | 02/24/2016 7:53 PM | | | | | PDT | | + + + + + | Respiratory Rate | 27 | 02/24/2016 7:53 PM | | | | | PDT | | + + + + + | Oxygen Saturation | 94% | 02/24/2016 7:53 PM | | | | | PDT | | + + + + + | Inhaled Oxygen | - | - | | | Concentration | | | | + + + + + | Weight | 97.5 kg (215 lb) | 02/24/2016 7:53 PM | | | | | PDT | | + + + + + | Height | 167.6 cm (5' 6") | 02/24/2016 7:53 PM | | | | | PDT | | + + + + + | Body Mass Index | 34.7 | 02/24/2016 7:53 PM | | | | | PDT [...] + documented as of this encounter Discharge Instructions Instructions Yordan Candelario MD - 02/24/2016Rosa INR was 4.75 today. He should stop your w arfarin over the weekend and have your INR rechecked on Saturday. Return if worsening or new concerning symptoms. documented in this encounter Medications at Time [...] | | | (COLACE) 250 MG | Twice daily as | | | | 6 | | capsule | needed for | | | | | | | Constipation. | | | | | [...] | | | | HYDROcodone-acetamin | mouth every 6 hours | | | | 6 | | ophen (NORCO) 5-325 | as needed for Pain. | | | | | | mg per tablet | | | | | | + + + +---------+ + + | metoprolol | Take 50 mg by mouth | | 0 | | | | succinate | Daily. | | | | 6 | | (TOPROL-XL) 25 mg 24 | [...] + +---------+ + + | warfarin | Do not restart your | | 0 | 04/04/20 | | | (COUMADIN) 2 mg | Warfarin (Coumadin) | | | 15 | 6 | | tablet | yet, you need daily | | | | | | | Protimes at | | | | | | | [facility] in | | | | | | | [place] starting | | | | | | | Saturday morning and | | | | | | | be sure the [place] | | | | | | | [facility] | | | | | | | calls you every day | | | | | | | with the results and | | | | | | | the Warfarin clnic | | | | | | | person will | | | | | | | determine when you | | | | | | | are to restart | | | | | | | Warfarin and at what | | | | | | | dose | | | | | + + + +---------+ + + documented as of this encounter ED Notes Jim Olmedo RN - 02/24/2016 10:45 PM PDTPt ambulates out of ED with a steady gait. Disch arge instructions given both verbally and in writing. Pt signs rec'd instructions, questions answered. Advised to [facility] with [facility] on [facility],. Electronically signed by Jim Olmedo RN at 0 02/24/2016 10:46 PM Yordan Borges MD - 02/24/2016 10:31 PM PDT Patient was signed out to me by Dr. Agudelo. He had presented with atrial flutter with rapid v entricular response. Dr. Jordan had ordered IV metoprolol which did not change the patient's t achycardia. I gave the patient is single dose of IV diltiazem with resolution of tachycardia and return to a sinus rhythm. Patient was noted to be supratherapeutic on his INR with an I NR of 4.75. I recommend he hold his dose over the weekend and recheck his INR on Saturday and then talk to his doctor about further instructions. He should return if new concerning sympt oms. Yordan Candelario MD 02/25/16 0145 Efrain Posada MD - 02/24/2016 7:51 PM PDTFormatting of this note might be different from the matti rohit. [facility] Johnny Siddiqi Emergency Department Encounter Note [address] [place] [id number] PCP:Mauricio Goldberg MD [phone] CHIEF COMPLAINT: Chief Complaint Patient presents with Tachycardia referal from [place] nurse ED Room: ED08/ED08 TRIAGE: ED Triage Notes Jim Olmedo RN 02/24/2016 19:53 [facility] nurse monitors heart rate and BP and after todays check requested PT to come to ED becau se of Tachycardia. HPI Johnny Siddiqi is a 80 y.o. male who presents to the Emergency Department sent in by a monitor ing nurse because his heart rate was rapid. He admits to some palpitations with walking and some shortness of breath with activity but denies any chest discomfort. He doesn't know ho w long these symptoms been going on he said he did take half of his metoprolol 50 mg morning but had reduced the dose due to a slow heart rate months ago. He denies any shortness of b reath chest pain fever vomiting abdominal pain. History is limited and of questionable reli ability due to dementia. PAST MEDICAL & SURGICAL HISTORY Past Medical History Diagnosis Date H/O aortic valve replacement [address] [facility] AV[facility] INR goal is 2-3, surgery done at [facility] Hypertension Liver cirrhosis (HCC) CVA (cerebral infarction) -2014 lacunar (not stated as new nor old) Dementia Alcoholic cirrhosis (HCC) 2003 CT scan 2003 at [facility] Endocarditis 2009 Enterococcus 6 weeks Amp + Gent PSA elevation 2008 Pt declined Bx then Peripheral vertigo 2012 BPPV left Venous ulcer (HCC) 2013 Leg Retinal detachment 2010 CAD (coronary artery disease) 2004 Had CABG to LAD (for 80-90% LAD) surgery done at [facility] Pulmonary HTN (HCC) Severe on Echo 2013 Diastolic CHF (HCC) Echo 2013 EF 68, ascites, pulm HTN Over-anticoagulated 04/01/2015 Past Surgical History Procedure Laterality Date Cardiac surgery 2005 [facility] CURRENT MEDICATIONS Previous Medications ALBUTEROL 90 MCG/PUFF INHALER Inhale 2 puffs into the lungs every 4 hours as needed for Wheezing. ATORVASTATIN (LIPITOR) 10 MG TABLET Take 10 mg by mouth nightly. COLCHICINE 0.6 MG TABLET Take 0.6 mg by mouth as needed. He uses a tapering regimen ove r 8 days prn gout but is out CYANOCOBALAMIN 1000 MCG CAPS Take 1 tablet by mouth Daily. DOCUSATE SODIUM (COLACE) 250 MG CAPSULE Take 250 mg by mouth Twice daily as needed for Constipation. DONEPEZIL (ARICEPT) 10 MG TABLET Take 5 mg by mouth Daily. FENOFIBRATE (TRICOR) 145 MG TABLET Take 145 mg by mouth Daily. FUROSEMIDE (LASIX) 40 MG TABLET Take 40 mg by mouth 2 times daily. HYDROCODONE-ACETAMINOPHEN (NORCO) 5-325 MG PER TABLET Take 1 tablet by mouth every 6 ho urs as needed for Pain. LEVOTHYROXINE (SYNTHROID, LEVOTHROID) 25 MCG TABLET Take 25 mcg by mouth every morning (before breakfast). METOPROLOL SUCCINATE (TOPROL-XL) 25 MG 24 HR TABLET Take 50 mg by mouth Daily. TERBINAFINE (LAMISIL) 1% CREAM Apply topically 2 times daily. TRAZODONE (DESYREL) 50 MG TABLET Take 50 mg by mouth nightly. UREA (CARMOL) 20% CREAM Apply topically 2 times daily. WARFARIN (COUMADIN) 2 MG TABLET Do not restart your Warfarin (Coumadin) yet, you need samy Bunn at [facility] in [place] starting Saturday morning and be sure the [place] [facility] calls you every day with the results and the Warfarin clnic person will determine wh en you are to restart Warfarin and at what dose ALLERGIES Allergies Allergen Reactions Latex Rash FAMILY AND SOCIAL HISTORY Family History Problem Relation Age of Onset Heart disease Father History Social History Marital Status: Spouse Name: N/A Number of Children: N/A Years of Education: N/A Social History Main Topics Smoking status: Never Smoker Smokeless tobacco: Not on file Alcohol Use: No Drug Use: Not on file Sexual Activity: Not on file Other Topics Concern None Social History Narrative REVIEW OF SYSTEMS As in history of present illness. A 10 system review was otherwise negative. PHYSICAL EXAM VITAL SIGNS: (first vital signs):Temp: 36.8 C (98.3 F) Pulse: 130 Resp: 27 SpO2: 94 % B P: 126/82 mmHg Constitutional: male patient, No acute distress HEENT: Atraumatic, PER, eyes clear of redness. Poor hearing Neck: Supple with good range of motion, no JVD Respiratory: Good air movement bilaterally. No rales or wheezing Cardiovascular: Normal S1 S2, no murmur, rapid regular rhythm Abdomen: Soft, large nontender. No rebound, guarding, or masses. No pulsatile masses Extremities: Nontender. Venous stasis changes and an ulcer on the lower left anterior rogers Trace lower extremity edema, no calf asymmetry. Skin: Warm, Dry, No rashes, venous stasis changes in the lower legs as above Neurologic: Alert & oriented. Not anxious. No focal deficits., Speech normal, gait not te sted Psychiatric: Normal mood and affect. EKG 12-lead EKG shows atrial flutter at 129 and LVH LABS Results for orders placed or performed during the hospital encounter of 02/24/16 ECG 12 lead Result Value Ref Range INTERPRETATION TEXT Not Confirmed ED COURSE & MEDICAL DECISION MAKING Pertinent Labs & Imaging studies were reviewed along with EMS notes and custodial record s if applicable. (See chart for details) Medications and Allergy list reviewed. Nurses note and old records were reviewed The patient was seen and examined, it appears to be in rapid atrial flutter of unknown time with history Limited by dementia. Advised labs and metoprolol IV. @2029 recheck awaiting IV, stable without symptoms Plan rate control, care transferred to Dr Candelario Last Set of Vital Signs: Temp: 36.8 C (98.3 F) Pulse: 130 Resp: 27 SpO2: 94 % BP: 126/8 2 mmHg FINAL IMPRESSION ICD-10-CM ICD-9-CM 1. Atrial flutter with rapid ventricular response (HCC) I48.92 427.32 2. Palpitations R00.2 785.1 Portions of this chart may have been created with [employer] voice recognition software. Occasi onal wrong-word or sound-alike substitutions may have occurred due to the inherent carter itations of voice recognition software. Please read the chart carefully and recognize, using context, where these substitutions have occurred Benjamín Candelaria MD 02/24/162104 document ed in this encounter Miscellaneous Notes ED Triage Notes - Jim Olmedo RN - 02/24/2016 7:52 PM PDTVA nurse monitors heart rate a nd BP and after todays check requested PT to come to ED because of Tachycardia.Electronicall y signed by Jim Olmedo RN at 02/24/2016 7:53 PM PDTdocumented in this encounter Plan of Treatment +--------+ + + + + | Date | Type | Specialty | Care Team | Description | +--------+ + + + + | 07/20/ | Implant | Cardiology | Cruzito Bird, | Remote Device | 2019 | Monitor | | MD [address] | Interrogation | | | | | [place], | (Primary Dx); | | | | | [place] [address] | Pacemaker Dual | | | | | [phone] | Chamber, MRI | | | | | | compatible, 05/14/17 | | | | | | [facility]; | | | | | | 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) | +--------+ + + + + | 01/05/ | Office | Cardiology | Emely Gabriel, | | | 2020 | Visit | | LOCK AND DAM OPERATOR [address] | | | | | | [place], [place] | | | | | | [address] | | | | | | | | +--------+ + + + + documented as of this encounter Procedures + +--------+ + + + | Procedure Name | Priori | Date/Time | Associated Diagnosis | Comments | | | ty | | | | + +--------+ + + + | POCT URINALYSIS, | STAT | 02/24/2016 | | Results for this | | AUTO WITH CONF | | 9:45 PM | | procedure are in the | | | | PDT | | results section. | + +--------+ + + + | CBC W/AUTO | STAT | 02/24/2016 | | Results for this | | DIFFERENTIAL | | 8:10 PM | | procedure are in the | | | | PDT | | results section. | + +--------+ + + + | PROTIME INR | STAT | 02/24/2016 | | Results for this | | | | 8:10 PM | | procedure are in the | | | | PDT | | results section. | + +--------+ + + + | COMPREHENSIVE | STAT | 02/24/2016 | | Results for this | | METABOLIC PANEL | | 8:10 PM | | procedure are in the | | | | PDT | | results section. | + +--------+ + + + | ECG 12 LEAD | STAT | 02/24/2016 | | Results for this | | | | 7:57 PM | | procedure are in the | | | | PDT | | results section. | + +--------+ + + + documented in this encounter Results POCT Urinalysis Dipstick Automated (02/24/2016 9:45 PM PDT) + + + + + + | Component | Value | Ref Range | Performed | Pathologist | | | | | At | Signature | + + + + + + | Color, UA, | Yellow | Yellow, Light | | | | POC | | Yellow | | | + + + + + + | Clarity, | Clear | | | | | UA, POC | | | | | + + + + + + | Glucose, | Negative | Negative | | | | UA, POC | | | | | + + + + + + | Bilirubin, | Negative | Negative | | | | UA, POC | | | | | + + + + + + | Ketones, | Negative | Negative, 100 | | | | UA, POC | | mg/dL | | | + + + + + + | Specific | 1.015 | 1.001 - 1.030 | | | | [place], | | | | | | UA, POC | | | | | + + + + + + | Blood, UA, | Trace Intact (A) | Negative | | | | POC | | | | | + + + + + + | pH, UA, POC | 7.0 | 5.0, 6.0, 7.0, | | | | | | 8.0, 5.5, 6.5, | | | | | | 7.5 | | | + + + + + + | Protein, | Negative | Negative | | | | UA, POC | | | | | + + + + + + | Urobilinoge | 0.2 | 0.2, Negative, | | | | n, UA, POC | | Normal, < 0.2 | | | | | | mg/dL, 1 mg/dL, | | | | | | < 0.2 E.U./dl, | | | | | | 1.0 E.U./dL, | | | | | | 0.2 mg/dL | | | + + + + + + | Nitrite, | Negative | Negative | | | | UA, POC | | | | | + + + + + + | Leukocyte | Negative | Negative | | | | Esterase, | | | | | | UA, POC | | | | | + + + + + + | Reducing | | | | | | Substances, | | | | | | Urine | | | | | + + + + + + | Bilirubin | | Negative | | | | Confirmatio | | | | | | n by | | | | | | Ictotest, | | | | | | Urine | | | | | + + + + + + | Remark | | | | | + + + + + + + + | Specimen | + + | Urine specimen | | (specimen) | + + Protime INR (02/24/2016 8:10 PM PDT) + + + + + + | Component | Value | Ref Range | Performed | Pathologist | | | | | At | Signature | + + + + + + | Prothrombin | 45.4 (H) | 11.3 - 13.9 | [facility] | | | Time | | seconds | [facility] | | | | | | MEDICAL | | | | | | CENTER - | | | | | | LABORATORY | | + + + + + + | INR | 4.75 (H)Comment: Usual | 0.90 - 1.10 | [...] [address] | [place] | [phone] | | [facility] | | [address] | | | - LABORATORY | | | | + + + + + Comprehensive Metabolic Panel (02/24/2016 8:10 PM PDT) + + + + + [...] + + + + | Cl | 97 (L) | 98 - 109 mmol/L | [facility] [...] + + + | BUN | 29 (H) | 7 - 18 mg/dL | [facility] | | | | | | [facility] | | | | | | MEDICAL | | | | | | CENTER - | | | | | | LABORATORY | | + + + + + + | Creatinine | 1.51 (H) | 0.60 - 1.30 | [facility] | | | | | mg/dL | [facility] | | | | | | MEDICAL | | | | | | CENTER - | | | | | | LABORATORY | | + + + + + + | eGFR if not | 44 (L)Comment: | >=60 | [facility] | | | | GLOMERULAR FILTRATION | mL/min/1.73m2 | [facility] | | | DUTCH | RATE,ESTIMATED | | MEDICAL | | | | mL/min/1.04o5Mdsm than | | CENTER - | | [...] + + + + | Albumin | 3.9 | 3.2 - 5.0 g/dL | [facility] | | | | | | [facility] | | | | | | MEDICAL | | | | | | CENTER - | | | | | | LABORATORY | | + + + + + + | Bilirubin | 1.2 | 0.1 - 1.5 mg/dL | [facility] | | | Total | | | [facility] | | | | | | MEDICAL | | | | | | CENTER - | | | | | | LABORATORY | | + + + + + + | Total | 6.4 | 6.0 - 7.8 g/dL | [facility] | | | Protein | | | [facility] | | | | | | MEDICAL | | | | | | CENTER - | | | | | | LABORATORY | | + + + + + + | AST | 40 | 10 - 42 U/L | [facility] [...] + + + + | Alkaline | 52 | 40 - 110 U/L | [facility] | | | Phosphatase | | | [facility] | | | | | | MEDICAL | | | | | | CENTER - | | | | | | LABORATORY | | + + + + + + | Globulin | 2.5 | 2.1 - 3.8 g/dL | [facility] | | | | | | [facility] | | | | | | MEDICAL | | | | | | CENTER - | | | | | | LABORATORY | | + + + + + + | Albumin/Mary Alice | 1.6 | 0.8 - 2.0 | [facility] | | | bulin Ratio | | | [facility] | | | | | | MEDICAL | | | | | | CENTER - | | | | | | LABORATORY | | + + + + + + | BUN/Creatin | 19.2 | | [facility] | | | ine [...] + | [facility] | [address] | [place] | [phone] | | [facility] | | [address] | | | - LABORATORY | | | | + + + + + CBC w/ Auto Differential (02/24/2016 8:10 PM PDT) + + + + + [...] + + + | Red Blood | 4.22 (L) | 4.30 - 5.70 | [facility] [...] + + + + | Hematocrit | 36.7 (L) | 40.0 - 51.0 % | [facility] | | | | | | [facility] | | | | | | MEDICAL | | | | | | CENTER - | | | | | | LABORATORY | | + + + + + + | MCV | 86.9 | 83.0 - 101.0 fL | [facility] [...] + + + + | Platelet | 175 | 140 - 440 K/uL | [facility] [...] + + + + | % | 49.3 | 45.0 - 82.0 % | [facility] | | | Neutrophils | | | [facility] | | | | | | MEDICAL | | | | | | CENTER - | | | | | | LABORATORY | | + + + + + + | % | 34.4 | 20.0 - 45.0 % | [facility] | | | Lymphocytes | | | [facility] | | | | | | MEDICAL | | | | | | CENTER - | | | | | | LABORATORY | | + + + + + + | % Monocytes | 13.5 (H) | 4.0 - 12.0 % | [facility] | | | | | | [facility] | | | | | | MEDICAL | | | | | | CENTER - | | | | | | LABORATORY | | + + + + + + | % | 2.4 | 0.0 - 5.0 % | [facility] | | | Eosinophils | | | [facility] | | [...] [address] | [place] | [phone] | | [facility] | | [address] | | | - LABORATORY | | | | + + + + + ECG 12 lead (02/24/2016 7:57 PM PDT) + + + + + + | Component | Value | Ref Range | Performed | Pathologist | | | | | At | Signature | + + + + + + | VENTRICULAR | 129 | BPM | [facility] | | | RATE EKG | | | | | + + + + + + | ATRIAL RATE | 129 | BPM | [facility] | | + + + + + + | P-R | 100 | ms | [facility] | | | INTERVAL | | | | | + + + + + + | QRS | 132 | ms | [facility] | | | DURATION | | | | | + + + + + + | Q-T | 294 | ms | [facility] | | | INTERVAL | | | | | + + + + + + | Q-T | 430 | ms | [facility] | | | INTERVAL | | | | | | (CORRECTED) | | | | | + + + + + + | P WAVE AXIS | -84 | degrees | [facility] | | + + + + + + | QRS AXIS | -38 | degrees | [facility] | | + + + + + + | T AXIS | 142 | degrees | [facility] | | + + + + + + | INTERPRETAT | regular supraventricular | | [facility] | | | ION TEXT | tachycardia: Consider | | | | | | sinus tachycardia with a | | | | | | short OK interval | | | | | | though atrial flutter | | | | | | cannot be excludedLeft | | | | | | axis deviationleft | | | | | | bundle branch block: | | | | | | Cannot exclude | | | | | | ischemia/infarction.Abno | | | | | | rmal ECGNo previous ECGs | | | | | | availableConfirmed by | | | | | | BINU MACK MD ([id number]) | | | | | | on 02/25/2016 11:33:10 AM | | | | + + [...] + | Diagnosis | + + | Atrial flutter with rapid ventricular response (HCC) - Primary Atrial flutter | + + | Palpitations | + + | Supratherapeutic INR Abnormal coagulation profile | + + | Remote Device Interrogation - Primary Fitting and adjustment of cardiac pacemaker | + + | Pacemaker Dual Chamber, MRI compatible, 05/14/17 [facility] Bird Cardiac pacemaker | | in situ | + + | 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 Administered Medications + +--------+ +---------+------+------+ | Medication Order | MAR | Action | Dose | Rate | Site | | | Action | Date | | | | + +--------+ +---------+------+------+ | diltiazem (CARDIZEM) injection | Given | 02/24/20 | 24.5 mg | | | | 24.5 mg 24.5 mg (rounded from | | 16 9:46 | | | | | 24.375 mg = 0.25 mg/kg | | PM PDT | | | | | 97.5 kg), Intravenous, ONCE, Fri | | | | | | | 02/24/16 at 2145, For 1 dose, Keep | | | | | | | in refrigerator., | | | | | | + +--------+ +---------+------+------+ +---+---+ | | | +---+---+ + +-------+ +------+---+---+ | metoprolol tartrate (LOPRESSOR) | Given | 02/24/20 | 5 mg | | | | injection 5 mg 5 mg, | | 16 9:16 | | | | | Intravenous, ONCE, 02/24/16 at | | PM PDT | | | | | 2004, For 1 dose | | | | | | + +-------+ +------+---+---+ +---+---+ | | | +---+---+ + +-------+ +-------+---+---+ | metoprolol tartrate (LOPRESSOR) | Given | 02/24/20 | 25 mg | | | | tablet 25 mg 25 mg, Oral, ONCE, | | 16 9:22 | | | | | 02/24/16 at 2105, For 1 dose | | PM PDT | | | | + +-------+ +-------+---+---+ +---+---+ | | | +---+---+ documented in this encounter
--- OUTSIDE RECORDS SUMMARY | ~2020-04-29 | XMS | Encounter Summary ---
Demographics + + + | Address | [address] | | | [place] [address] | + + + | Home Phone | | + + + | Preferred Language | Unknown | + + + | Marital Status | | + + + | Buddhist Affiliation | 1061 | + + + | Race | Unknown | + + + | Ethnic Group | Unknown | + + + Author + + + | Author | [facility] | | | and [place] | + + + | Organization | [facility] | | [...] Team Providers + +------+ + | Care Linen Attendant Name | Role | Phone | + [...] Monitor | CARDIOLOGY [address] [place] | Interrogation | | | | [place], | [place], | (Primary Dx); | | | | [place] [address] | [place] [address] | Pacemaker Dual | | | | [phone] | [phone] | Chamber, MRI | | | | [...] and remote PDF scanned into [facility] for remote interrogation re sults. Data collected [...] | 2019 | Monitor | | [address] [facility] | Interrogation | | | | | [place], | (Primary Dx); | | | | | [place] [address] | Pacemaker Dual | | | | | [phone] | Chamber, MRI | | | | | | compatible, 05/14/17 | | | | | | [facility]; | | | | | | 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) | +--------+ + + + + | 01/05/ | Office | Cardiology | Emely Gabriel, | | | 2020 | Visit | | WILDLIFE CONTROL OPERATOR [address] | | | | | | [place] | | | | | | [address] | | | | | | | [...]
--- OUTSIDE RECORDS SUMMARY | ~2020-04-29 | XMS | Encounter Summary ---
Demographics + + + | Address | [address] | | | [place] [address] | + + + | Home Phone | | + + + | Preferred Language | Unknown | + + + | Marital Status | | + + + | Yarsani Affiliation | [id number] | + + + [...] Team Providers + +------+ + | Care College Basketball Coach Name | Role | Phone | + [...] + + | 09/19/ | Office | [facility] | Emely Gabriel, | Tachycardia-bradycar | | 2017 | Visit | CARDIOLOGY [address] | SALES AND BUSINESS DEVELOPMENT MANAGER [address] | pablo syndrome (HCC) | | | | [address] [place], | [place], [place] | (Primary Dx); | | | | [place] [address] | [address] | Coronary artery | | | | [phone] | | disease involving | | | | | | nikolai coronary | | | | | | artery of nikolai | | | | | | heart without angina | | | | | | pectoris; | | | | | | Persistent atrial | | | | | | fibrillation ([facility]); | | | | | | Chronic diastolic | | | | | | congestive heart | | | | | | failure ([facility]); | | | | | | [...] in his spare time. 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 His [id number] score is 4, which gives an estimated [...] ure. He is in a class IIof [place] [employer] functional class. He is on a rhythm control strategy with amiodarone. He is on warfarin to minimize the ris k of stroke. 3. Congestive heart failure with preserved ejection fraction A. He is being treated with furosemide. Heart failure is well compensated 4. Coronary artery disease: A. [facility] 11/14/2004 shows preserved left ventricular systolic function, [...] 2. He will continue with his [employer] remote device monitoring. 3. He will follow up in 6 months for office visit and device interrogation, or sooner with concerns. Electronically signed by: AMANDA Hurtado Portions of this chart may have been created with VideoGenie voice recognition software. Occasi onal wrong-word or [...] Device Interrogation 2. 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 Persistent atrial fibrillation (HCC) I48.1 427.31 4. Chronic diastolic congestive heart failure (HCC) I50.32 428.32 428.0 5. Essential hypertension I10 401.9 6. Pacemaker reprogramming/check Z45.018 V53.31 Device Interrogation Device Interrogation 7. Pacemaker Dual Chamber, MRI compatible, 05/14/17 [facility] [place] Z95.0 V45.01 Device In [facility] Device Interrogation Patient was seated and device [...] (Primary Dx); | | | | | [place] [address] | Pacemaker Dual | | | | | [phone] | Chamber, MRI | | | | [...] | | | | [place] | | | | | | [address] | | | | | | | [...] | PST | pablo syndrome ([facility]) | results section. | | | [...] | PST | pablo syndrome ([facility]) | results section. | | | [...] | Emely Gabriel, | [employer]ACE[employer] | | SALES AND BUSINESS DEVELOPMENT MANAGER 06/04/2018 15:12 PATIENT NAME: Johnny Siddiqi : [...] | | | Coronary artery disease involving nikolai coronary artery of nikolai | | | heart without angina pectoris [...] CBC no Differential T4, Free TSH 8. adjunct faculty for medical terminology | | | current use of amiodarone [...] | | | TSH | | |8. adjunct faculty for medical terminology current use of amiodarone Z79.899 V58.69 XR [...] | | 2. Coronary artery disease involving nikolai coronary artery of nikolai heart without | | angina pectoris I25.10 [...] CBC no Differential T4, Free TSH 8. adjunct faculty for medical terminology current use of amiodarone Z79.899 | | [...] T4, Free | | TSH | |8. adjunct faculty for medical terminology current use of amiodarone Z79.899 V58.69 XR [...] | Emely Gabriel, | STEPHART | | SALES AND BUSINESS DEVELOPMENT MANAGER 09/20/2017 12:31 PATIENT NAME: Johnny Siddiqi : | | | 1935: AGE: 82 y.o. Device In-office Evaluation Report | | | 09/19/2017 Reason for evaluation: routineIndication for device: | | | ICD-10-CM ICD-9-CM 1. 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 Coronary | | | artery disease involving nikolai coronary artery of nikolai heart | | | without angina pectoris [...] AGE: 82 | | y.o.Device In-office Evaluation Sgailm6009/19/2017 Reason for evaluation: | | routineIndication for device: ICD-10-CM ICD-9-CM 1. Tachycardia-bradycardia syndrome | | ([facility]) I49.5 427.81 Device Interrogation Device Interrogation 2. Coronary artery | | disease involving nikolai coronary artery of nikolai heart without angina pectoris I25.10 | | [...] + + | Coronary artery disease involving nikolai coronary artery of nikolai heart without | | angina pectoris | [...]
--- OUTSIDE RECORDS SUMMARY | ~2020-04-29 | XMS | Encounter Summary ---
Demographics + + + | Address | [address] | | | [place] [address] | + + + | Home Phone | | + + + | Preferred Language | Unknown | + + + | Marital Status | | + + + | Yarsanism Affiliation | 1061 | + + + | Race | Unknown | + + + | Ethnic Group | Unknown | + + + Author + + + | Author | [facility] | | | and [place] | + + + | Organization | [facility] | | | [...] Team Providers + +------+ + | Care Junior Accounting Clerk Name | Role | Phone | + +------+ + PCP | Unavailable | + +------+ + Encounter Details +--------+ + + + + | Date | Type | Department | Care Team | Description | +--------+ + + + + | 12/02/ | Hospital | [facility] | Yordan Candelario, | | | 2012 | Encounter | [facility] | [address] | | | | | CENTER [address] | [place] | | | | | [place] | [address] | | | | | [address] | | | | | | [phone] | Raphael Karimi MD | | | | | | [address] | | | | | | [place] | | | | | | [address] [...] documented as of this encounter ED Notes Raphael Karimi MD - 12/02/2012 5:32 [place] [address] Patient Name: JACKLYN SIDDIQI Provider: Unit #: [id number] Location: [facility] #: [id number] : 1935 DATE: 12/02/2012 CHIEF COMPLAINT: Dizziness and some shortness of breath. HISTORY OF PRESENT ILLNESS: Jacklyn is a 77-year-old male who said he woke up this morning and stood up , suddenly had a severe spinning sensation that the room was moving around and he felt like he was going to throw up. He said he held still and it went away. He had 2 mo re episodes like that before it stopped. He has had no fever, cough, chills, sweats, or oth er associated symptoms. He has been short of breath for about 2 months, but he says he has been eating lots of Espinoza soup and retaining fluid and was not sure if that was related to it or not. He said his shortness of breath today is no worse than usual. He currently fe els completely fine and said he does not feel like the room is spinning. PAST MEDICAL HISTORY: Negative except for hypertension and congestive heart failure, as we ll as a valve replacement. REVIEW OF SYSTEMS: All systems reviewed were negative except as noted in HPI. PHYSICAL EXAMINATION GENERAL: This is a 77-year-old male, no apparent distress. INITIAL VITAL SIGNS: BP 155/75, pulse 58, respirations 20, temperature was 96.8, saturatio ns 97% on room air. HEENT: Pupils equally round and reactive to light. Mucous membranes are moist. Nasal passa ges are clear. Trachea is midline. CHEST: Lungs are clear to auscultation bilaterally. No rales, no wheezes. CARDIOVASCULAR: Rate and rhythm is regular. ABDOMEN: Nontender, nondistended. EXTREMITIES: He has 1+ pitting edema bilaterally. SKIN: No rash. EMERGENCY DEPARTMENT COURSE AND STUDIES: He had an EKG done. EKG interpretation shows a sinus bradycardia with a rate of 58, DE of 142, QRS of 130. He has a left bundle branch block. There are no acute ST or wave changes consistent with ische sammi. Comprehensive metabolic panel was normal except for a glucose of 122, alkaline phosphatase of 33. Troponin was normal. INR is 2.7. CBC was normal except for an hematocrit of 38.6. Chest x-ray was negative for pneumonia, pneumothorax, widened mediastinum, pleural effusio n, or other cause of his symptoms. He does have fairly significant cardiomegaly. ASSESSMENT This is a 77-year-old male who describes vertigo. He was given a prescription for some mec lizine. He is also at his baseline for congestive heart failure. He was recommended to cont inue his diuretics and follow up with his doctor and come back if he has any other problems . DIAGNOSES 1. BENIGN POSITIONAL VERTIGO. 2. STABLE CONGESTIVE HEART FAILURE. DISPOSITION: Home. DICTATED BY: Raphael Karimi M.D. Emergency Medicine JOB #: [id number] EXT JOB #:[id number] <<Signature on File>> Raphael Karimi MD0 12/09/122111 < documented in this encounter Plan of Treatment [...] (Primary Dx); | | | | | [place] [address] | Pacemaker Dual | | | | | [phone] | Chamber, MRI | | | | | | compatible, 05/14/17 | | | | | | [facility]; | | | | | | 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) | +--------+ + + + + | 01/05/ | Office | Cardiology | Emely Gabriel, | | | 2020 | Visit | | PARADICHLOROBENZENE MACHINE OPERATOR [address] | | | | | | [place] | | | | | | [address] | | | | | | | | +--------+ + + + + documented as of this encounter Procedures + +--------+ + + + | Procedure Name | Priori | Date/Time | Associated Diagnosis | Comments | | | ty | | | | + +--------+ + + + | XR CHEST AP PORTABLE | Routin | 12/03/2012 | | Results for this | | | e | 9:34 AM | | procedure are in the | | | | PST | | results section. | + +--------+ + + + | TROPONIN I | Routin | 12/02/2012 | | Results for this | | | e | 4:47 PM | | procedure are in the | | | | PST | | results section. | + +--------+ + + + | PROTIME INR | Routin | 12/02/2012 | | Results for this | | | e | 4:47 PM | | procedure are in the | | | | PST | | results section. | + +--------+ + + + | CBC WITH | Routin | 12/02/2012 | | Results for this | | DIFFERENTIAL | e | 4:47 PM | | procedure are in the | | | | PST | | results section. | + +--------+ + + + | B TYPE NATRIURETIC | Routin | 12/02/2012 | | Results for this | | PEPTIDE | e | 4:47 PM | | procedure are in the | | | | PST | | results section. | + +--------+ + + + | COMPREHENSIVE | Routin | 12/02/2012 | | Results for this | | METABOLIC PANEL | e | 4:47 PM | | procedure are in the | | | | PST | | results section. | + +--------+ + + + documented in this encounter Results XR Chest AP Portable (12/03/2012 9:34 AM PST) + + | Specimen | + + | | + + + + + | Narrative | Performed At | + + + | [facility] | [place] | | Department [address] [place] | [facility] | | [ rep ct [address]] [ rep ct [facility] | | st zip] Signed | - IMAGING | | | | | Patient Name: JACKLYN SIDDIQI Physician: | | | WILBER : 1935 Age: 77 Sex: M Unit #: [id number] | | | Exam Date: 12/02/12 Location: ER | | | Report #: [id number] Page: | | | %(RAD)RES..mtdd.print.filter("pg") of %(RAD) | | | RES..mtdd.print.filter("tpg") | | | | | | Accession Number: [id number] | | | CHEST PORTABLE, 12/03/2012 CLINICAL HISTORY: SHORTNESS | | | OF BREATH. COMPARISON: CT scan of the abdomen dated | | | 10/25/2003. FINDINGS: AP view of the chest was | | | obtained. Sternotomy wires are observed. A clip is noted | | | in the left lung base region. There is blunting of the left | | | hemidiaphragm that has the appearance of a small left pleural | | | effusion. Mild air space disease is also visualized in the left | | | lower lobe that could represent either atelectasis versus pneumonia. | | | The right lung is relatively clear. The heart is significantly | | | enlarged. There is atherosclerosis of the aorta. The mediastinum is | | | otherwise normal. There are no acute osseous abnormalities. | | | IMPRESSION: 1. POSSIBLE SMALL LEFT PLEURAL EFFUSION WITH | | | SOME MILD AIR SPACE DISEASE REPRESENTING ATELECTASIS VERSUS | | | PNEUMONIA IN THE LEFT LOWER LOBE. 2. CARDIOMEGALY. | | | COMMENT: This information was conveyed to the ER. | | | Dictated Date/Time: 12/03/2012 09:34 Transcribed Date/Time: | | | 12/03/2012 09:46 Insulation Worker: | | | <<Signature on File>> | | | Deep | | | MD Jose12/03/12 1410 <Electronically signed by Deep Garcia MD> | | | Deep Garcia MD 12/03/12 0941 Insulation Worker: Johnson | | | Rgfxozteejvit40/13/13 0989 Yordan Candelario MD | | | Raphael Karimi MD | | + + + + + + + + | Performing | Address | City/State/Zipcode | Phone Number | | Organization | | | | + + + + + | [facility] | [address] | [place] | [phone] | | [facility] | | [address] | | | - IMAGING | | | | + + + + + CBC with Differential (12/02/2012 4:47 PM PST) + + + + + + | Component | Value | Ref Range | Performed | Pathologist | | | | | At | Signature | + + + + + + | MANUAL | NO | | [facility] | | | DIFFERENTIA | | | [facility] | | | L ? | | | MEDICAL | | | | | | CENTER - | | | | | | LABORATORY | | + + + + + + | White Blood | 5.0 | 4.0 - 11.0 K/uL | [facility] | | | Cells | | | . [facility] | | | | | | MEDICAL | | | | | | CENTER - | | | | | | LABORATORY | | + + + + + + | Red Blood | 4.12 (L) | 4.30 - 5.70 | [facility] | | | Cells | | M/uL | [facility] | | | | | | MEDICAL | | | | | | CENTER - | | | | | | LABORATORY | | + + + + + + | Hemoglobin | 12.7 (L) | 13.5 - 18.0 | [facility] | | | | | gm/dL | [facility] | | | | | | MEDICAL | | | | | | CENTER - | | | | | | LABORATORY | | + + + + + + | Hematocrit | 38.6 (L) | 40.0 - 51.0 % | [facility] | | | | | | [facility] | | | | | | MEDICAL | | | | | | CENTER - | | | | | | LABORATORY | | + + + + + + | MCV | 93.7 | 83.0 - 101.0 fL | [facility] | | | | | | [facility] | | | | | | MEDICAL | | | | | | CENTER - | | | | | | LABORATORY | | + + + + + + | MCH | 30.8 | 28.0 - 35.0 pg | [facility] | | | | | | [facility] | | | | | | MEDICAL | | | | | | CENTER - | | | | | | LABORATORY | | + + + + + + | MCHC | 32.9 | 32.0 - 36.0 | [facility] | | | | | g/dL | [facility] | | | | | | MEDICAL | | | | | | CENTER - | | | | | | LABORATORY | | + + + + + + | RDW-CV | 14.0 | <15.0 % | [facility] | | | | | | [facility] | | | | | | MEDICAL | | | | | | CENTER - | | | | | | LABORATORY | | + + + + + + | Platelet | 131 (L) | 140 - 440 K/uL | [facility] | | | Count | | | [facility] | | | | | | MEDICAL | | | | | | CENTER - | | | | | | LABORATORY | | + + + + + + | % | 59.6 | 45 - 75 % | [facility] | | | Neutrophils | | | [facility] | | | | | | MEDICAL | | | | | | CENTER - | | | | | | LABORATORY | | + + + + + + | % | 25.1 | 20 - 45 % | [facility] | | | Lymphocytes | | | [facility] | | | | | | MEDICAL | | | | | | CENTER - | | | | | | LABORATORY | | + + + + + + | % Monocytes | 13.5 (H) | 4 - 12 % | [facility] | | | | | | [facility] | | | | | | MEDICAL | | | | | | CENTER - | | | | | | LABORATORY | | + + + + + + | % | 1.5 | 0 - 5 % | [facility] | | | Eosinophils | | | [facility] | | | | | | MEDICAL | | | | | | CENTER - | | | | | | LABORATORY | | + + + + + + | % Basophils | 0.3 | 0 - 1 % | [facility] | | | | | | [facility] | | | | | | MEDICAL | | | | | | CENTER - | | | | | | LABORATORY | | + + + + + + | Absolute | 3.0 | 1.5 - 6.6 K/uL | [facility] | | | Neutrophils | | | [facility] | | | | | | MEDICAL | | | | | | CENTER - | | | | | | LABORATORY | | + + + + + + | Absolute | 1.3 | 0.6 - 3.2 K/uL | [facility] | | | Lymphocytes | | | [facility] | | | | | | MEDICAL | | | | | | CENTER - | | | | | | LABORATORY | | + + + + + + | Absolute | 0.7 | 0.0 - 1.0 K/uL | [facility] | | | Monocytes | | | [facility] | | | | | | MEDICAL | | | | | | CENTER - | | | | | | LABORATORY | | + + + + + + | Absolute | 0.1 | 0.0 - 0.4 K/uL | [facility] | | | Eosinophils | | | [facility] | | | | | | MEDICAL | | | | | | CENTER - | | | | | | LABORATORY | | + + + + + + | Absolute | 0.0 | 0.0 - 0.1 K/uL | [facility] | | | Basophils | | | [facility] | | [...] + | [facility] | [address] | [place], [place] | [phone] | | [facility] | | [address] | | | - LABORATORY | | | | + + + + + | [facility] | [address] | [place], [place] | | | [facility] | | [address] | | | - LABORATORY | | | | + + + + + Giselime INR (12/02/2012 4:47 PM PST) + + + + + + | Component | Value | Ref Range | Performed | Pathologist | | | | | At | Signature | + + + + + + | Prothrombin | 28.4 (H) | 11.3 - 13.9 | [facility] | | | Time | | seconds | [facility] | | | | | | MEDICAL | | | | | | CENTER - | | | | | | LABORATORY | | + + + + + + | PATIENT | 12.9 | seconds | [facility] | | | NORMAL MEAN | | | [facility] | | | | | | MEDICAL | | | | | | CENTER - | | | | | | LABORATORY | | + + + + + + | INR | 2.7 (H)Comment: INR: | 0.9 - 1.1 | [facility] | | | | USUAL ORAL | | [facility] | | | | ANTICOAGULATION RANGE | | MEDICAL | | | | 2.0-3.0 | | CENTER - | | | | HIGH LEVEL ORAL | | LABORATORY | | | | ANTICOAGULATION RANGE | | | | | | 2.5-3.5 | | | | + + + + + + + + | Specimen | + + | | + + + + + + + | Performing | Address | City/State/Zipcode | Phone Number | | Organization | | | | + + + + + | [facility] | [address] | [place], [place] | [phone] | | [facility] | | [address] | | | - LABORATORY | | | | + + + + + | [facility] | [address] | [place], [place] | | | [facility] | | [address] | | | - LABORATORY | | | | + + + + + B Type Natriuretic Peptide (12/02/2012 4:47 PM PST) + + + + + + | Component | Value | Ref Range | Performed | Pathologist | | | | | At | Signature | + + + + + + | BNP | 287 (H)Comment: Testing | <100 pg/mL | [facility] | | | | performed on the [facility] | | Status [facility] | | | | [place] [facility] | | MEDICAL | | | | Analyzer. | | CENTER - | | | | | | LABORATORY | | + + + + + + + + | Specimen | + + | | + + + + + + + | Performing | Address | City/State/Zipcode | Phone Number | | Organization | | | | + + + + + | [facility] | [address] | [place] | [phone] | | [facility] | | [address] | | | - LABORATORY | | | | + + + + + | [facility] | [address] | [place], [place] | | | [facility] | | [id number] [place] [address] | | | - LABORATORY | | | | + + + + + Comprehensive Metabolic Panel (12/02/2012 4:47 PM PST) + + + + + + | Component | Value | Ref Range | Performed | Pathologist | | | | | At | Signature | + + + + + + | Glucose | 122 (H) | 70 - 109 mg/dL | [...] + + + + | Alkaline | 33 (L) | 40 - 110 IU/L | [facility] | | | Phosphatase | | | [facility] | | | | | | MEDICAL | | | | | | CENTER - | | | | | | LABORATORY | | + + + + + + | AST | 28 | 10 - 42 IU/L | [facility] | | | | | | [facility] | | | | | | MEDICAL | | | | | | CENTER - | | | | | | LABORATORY | | + + + + + + | ALT | 14 | 6 - 45 IU/L | [facility] | | | | | | [facility] | | | | | | MEDICAL | | | | | | CENTER - | | | | | | LABORATORY | | + + + + + + | Bilirubin | 0.9 | 0.2 - 1.0 mg/dL | [facility] | | | Total | | | [facility] | | | | | | MEDICAL | | | | | | CENTER - | | | | | | LABORATORY | | + + + + + + | Total | 6.0 | 6.0 - 7.8 gm/dL | [facility] | | | Protein | | | [facility] | | | | | | MEDICAL | | | | | | CENTER - | | | | | | LABORATORY | | + + + + + + | Albumin | 3.5 | 3.2 - 5.0 gm/dL | [facility] | | | | | [...] + + + + | Creatinine | 1.25 | 0.60 - 1.30 | [facility] | | | | | mg/dL | [facility] | | | | | | MEDICAL | | | | | | CENTER - | | | | | | LABORATORY | | + + + + + + | Estimated | 56 (L)Comment: For | >60 mL/min/A | [facility] | | | GFR | -Americans, | | [facility] | | | | please multiply the | | MEDICAL | | | | result by 1.210 | | CENTER - | | | | This is an estimated | | LABORATORY | | | | GFR and is based on a | | | | | | standard adult | | | | | | body mass (A=1.73m2) and | | | | | | serum creatinine | | | | + + + + + + | BUN/Creatin | 17.6 | 12 - 20 | [facility] | | | ine Ratio | | | [facility] | | | | | | MEDICAL | | | | | | CENTER - | | | | | | LABORATORY | | + + + + + + | Na | 140 | 136 - 149 mEq/L | [facility] | | | | | | [facility] | | | | | | MEDICAL | | | | | | CENTER - | | | | | | LABORATORY | | + + + + + + | K | 3.8 | 3.5 - 5.1 mEq/l | [facility] | | | | | | [facility] | | | | | | MEDICAL | | | | | | CENTER - | | | | | | LABORATORY | | + + + + + + | Cl | 103 | 98 - 109 mEq/l | [facility] | | | | | | [facility] | | | | | | MEDICAL | | | | | | CENTER - | | | | | | LABORATORY | | + + + + + + | CO2 | 28 | 24 - 31 mEq/L | [facility] | | | | | | [facility] | | | | | | MEDICAL | | | | | | CENTER - | | | | | | LABORATORY | | + + + + + + | Anion Gap | 12.8 | 6.0 - 17.0 | [facility] | | | | | | [facility] | | | | | | MEDICAL | | | | | | CENTER - | | | | | | LABORATORY | | + + + + + + + + | Specimen | + + | | + + + + + + + | Performing | Address | City/[facility]/Zipcode | Phone Number | | Organization | | | | + + + + + | [facility] | [address] | [place], [place] | [phone] | | [facility] | | [address] | | | - LABORATORY | | | | + + + + + | [facility] | [address] | [place], [place] | | | [facility] | | [address], [facility] | | | - LABORATORY | | | | + + + + + Troponin I (12/02/2012 4:47 PM PST) + + + + + + | Component | Value | Ref Range | Performed | Pathologist | | | | | At | Signature | + + + + + + | Troponin I | 0.03Comment: Reference | <0.06 ng/mL | [facility] | | | | Ranges: | | [facility] | | | | 0.00-0.06 = NORMAL | | MEDICAL | | | | >0.06 | | CENTER - | | | | = SUSPICIOUS FOR | | LABORATORY | | | | MYOCARDIAL DAMAGE | | | | | | NOTE: Values greater | | | | | | than 0.50 ng/mL have | | | | | | been shown to be | | | | | | strongly associated with | | | | | | acute myocardial | | | | | | infarction. The | | | | | | [employer] | | | | | [...] | | | | | acute coronary | | | | | | syndrome, but can also | | | | | | reflect myocardial | | | | | | necrosis or injury | | | | | | that is not due to | | | | | | coronary artery | | | | | [...] + | [facility] | [address] | [place], [place] | [phone] | | [facility] | | [address] | | | - LABORATORY | | | | + + + + + | [facility] | [address] | [place], [place] | | | [facility] | | [id number] [place] [address] | | | - LABORATORY | | | | + + + + + documented in this encounter Visit Diagnoses Not on filedocumented in this encounter
--- OUTSIDE RECORDS SUMMARY | ~2020-04-29 | XMS | Encounter Summary ---
Demographics + + + | Address | [address] | | | [place] [address] | + + + | Home Phone | | + + + | Preferred Language | Unknown | + + + | Marital Status | | + + + | Yarsanism Affiliation | [id number] | + + + | Race | Unknown | + + + | Ethnic Group | Unknown | + + + Author + + + | Author | [facility] | | | and [place] | + + + | Organization | [facility] | | | and [...] Team Providers + +------+ + | Care Labor And Employment Paralegal Name | Role | Phone | + +------+ + | Emelina Robertson MD | PCP | Unavailable | + +------+ + Reason for Visit + + + | Reason | Comments | + + + | Shortness of Breath | | + + + Encounter Details +--------+ + + + + | Date | Type | Department | Care Team | Description | +--------+ + + + + | 04/20/ | Emergency | [facility] | Parish Rhoades, | Acute exacerbation | | 2016 | | [facility] | [address] | of CHF (congestive | | | | CENTER [address] | [facility] | heart failure) ([facility]) | | | | [place] | [place] [address] | (Primary Dx) | | | | [address] | [phone] | | | | | [phone] | | | +--------+ + + + [...] + + + | Blood Pressure | 109/42 | 04/20/2016 4:01 PM | | | | | PDT | | + + + + + | Pulse | 75 | 04/20/2016 4:11 PM | | | | | PDT | | + + + + + | Temperature | 37.4 C (99.3 F) | 04/20/2016 2:17 PM | | | | | PDT | | + + + + + | Respiratory Rate | 25 | 04/20/2016 4:11 PM | | | | | PDT | | + + + + + | Oxygen Saturation | 95% | 04/20/2016 4:11 PM | | | | | PDT | | + + + + + | Inhaled Oxygen | - | - | | | Concentration | | | | + + + + + | Weight | 97.5 kg (215 lb) | 04/20/2016 2:17 PM | | | | | PDT | | + + + + + | Height | 165.1 cm (5' 5") | 04/20/2016 2:17 PM | | | | | PDT | | + + + + + | Body Mass Index | 35.78 | 04/20/2016 2:17 PM | | | | | PDT [...] as of this encounter Discharge Instructions Instructions Parish Rhoades MD - 04/20/2016Increase Lasix to 80 mg in the morning and 4 0 mg in the evening for one week After one week decreased the Lasix back to 40 mg twice a day Follow-up with your doctor Return if worse AttachmentsThe following attachments cannot be sent through Care Everywhere.CONGESTIVE HEAR T FAILURE, LEFT-SIDED (KINYARWANDA)documented in this encounter Medications at Time of [...] + + | desonide (DESOWEN) | Apply topically 2 | | 0 | | | | 0.05% cream | times daily. | | | [...] + + | furosemide (LASIX) | Take 80 mg in the | 30 | 0 | 04/20/20 | | | 40 mg tablet | morning, 40 mg in | tablet | | 16 | 7 | | | the evening for 1 | | | | | | | week. After 1 week | | | | | | | resume your normal | | | | | | | dose of 40 mg twice | | | | | | | a day. | | | | | + + + +---------+ + + | | Take 5 mLs by mouth | | 0 | | | | guaiFENesin-dextrome | 4 times daily as | | | | 7 | | thorphan (ROBITUSSIN | needed for Cough. | | | | | | DM) 100-10 mg/5 mL | | | | | | | syrup | | | | | | + [...] | | | | succinate | Daily. Takes 1 and | | | | 7 | | (TOPROL-XL) 50 mg 24 | 1/2 tablet twice | | | | | | hr tablet | daily | | | | | + + [...] | | 0 | | | | (K-DUR,KLOR-CON) 10 | Daily. | | | | 7 | | MEQ ER tablet | | | | | | + + + +---------+ + + | tamsulosin | Take 0.4 mg by mouth | | 0 | | | | (FLOMAX) 0.4 mg CAPS | nightly. | | | | 7 | + + + +---------+ + + | terbinafine | Apply topically 2 | | 0 | | | | (LAMISIL) 1% cream | times daily. | | | | 7 | + + + +---------+ + + | torsemide | Take 20 mg by mouth | | 0 | | | | (DEMADEX) 20 mg | Daily. | | | | [...] documented as of this encounter ED Notes Parish Rhoades MD - 04/20/2016 2:23 PM PDTFormatting of this note might be different f rom the original. [facility] Johnny Siddiqi Emergency Department Encounter Note [address] [place] [address] PCP:Emelina Robertson MD [phone] CHIEF COMPLAINT Chief Complaint Patient presents with Shortness of Breath HPI Johnny Siddiqi is a 80 y.o. male who presents to the emergency department with shortness of br eath. This patient has been experiencing shortness of breath over the past 3-4 weeks. [facility] Elaine [facility] that [facility]. His provider there noticed that he was having difficulty breathing and sent him to the ER for evaluation. The patient denies any chest pain. No fever. He does get chills over the past few days. He d oes have a productive cough, he says it's green chunks of stuff. He is providing his own hi story. He has a nebulizer at home but has not been using it. He states he is compliant wit h his medications. PAST MEDICAL HISTORY Past Medical History Diagnosis Date H/O aortic valve replacement [address] [facility] AVR INR goal is 2-3, surgery done at [facility] Hypertension Liver cirrhosis (HCC) CVA (cerebral infarction) -2014 lacunar (not stated as new nor old) Dementia Alcoholic cirrhosis (HCC) 2003 CT scan 2003 at [facility] Endocarditis 2009 Enterococcus 6 weeks Amp + Gent PSA elevation 2008 Pt declined Bx then Peripheral vertigo 2012 BPPV left Venous ulcer (HCC) 2013 Leg Retinal detachment 2010 CAD (coronary artery disease) 2004 Had CABG to LAD (for 80-90% LAD) surgery done at [facility] Pulmonary HTN (HCC) Severe on Echo 2014 Diastolic CHF (HCC) Echo 2014 EF 68, ascites, pulm HTN Over-anticoagulated 04/01/2015 SURGICAL HISTORY Past Surgical History Procedure Laterality Date Cardiac surgery [facility] CURRENT MEDICATIONS Discharge Medication List as of 04/20/2016 16:37 CONTINUE these medications which have NOT CHANGED Details albuterol 90 mcg/puff inhaler Inhale 2 puffs into the lungs every 4 hours as needed for Whe ezing.Historical Med amiodarone (PACERONE) 400 MG tablet Take 1 tablet by mouth 2 times daily.Disp-60 tablet, R- 0, Print artificial tears (REFRESH PLUS) 0.5% SOLN Place 1 drop into both eyes 4 times daily.Histori herberth Med atorvaSTATin (LIPITOR) 10 mg tablet Take 10 mg by mouth nightly.Historical Med colchicine 0.6 mg tablet Take 0.6 mg by mouth as needed. He uses a tapering regimen over 8 days prn gout but is outHistorical Med Cyanocobalamin 1000 MCG CAPS Take 1 tablet by mouth Daily.Historical Med desonide (DESOWEN) 0.05% cream Apply topically 2 times daily.Historical Med donepezil (ARICEPT) 10 MG tablet Take 5 mg by mouth Daily.Historical Med fenofibrate (TRICOR) 145 mg tablet Take 145 mg by mouth Daily.Historical Med ferrous sulfate 325 mg tablet Take 325 mg by mouth daily (with breakfast). Patient takes th ree times weeklyHistorical Med guaiFENesin-dextromethorphan (ROBITUSSIN DM) 100-10 mg/5 mL syrup Take 5 mLs by mouth 4 farhan es daily as needed for Cough.Historical Med HYDROcodone-acetaminophen (NORCO) 5-325 mg per tablet Take 1 tablet by mouth every 6 hours as needed for Pain.Disp-20 tablet, R-0, Print levothyroxine (SYNTHROID, LEVOTHROID) 25 mcg tablet Take 25 mcg by mouth every morning (bef ore breakfast).Historical Med magnesium oxide (MAG-OX) 400 mg tablet Take 420 mg by mouth Daily.Historical Med metoprolol succinate (TOPROL-XL) 50 mg 24 hr tablet Take 50 mg by mouth Daily. Takes 1 and 1/2 tablet twice dailyHistorical Med polyethylene glycol (MIRALAX) packet Take 1 diluted packet by mouth Daily as needed.Disp-30 packet, R-0, Print potassium chloride (K-DUR,KLOR-CON) 10 MEQ ER tablet Take 10 mEq by mouth 2 times daily.His torical Med tamsulosin (FLOMAX) 0.4 mg CAPS Take 0.4 mg by mouth daily (after breakfast).Historical Med terbinafine (LAMISIL) 1% cream Apply topically 2 times daily.Historical Med torsemide (DEMADEX) 20 mg tablet Take 20 mg by mouth Daily.Historical Med traZODone (DESYREL) 50 mg tablet Take 50 mg by mouth nightly.Historical Med urea (CARMOL) 20% cream Apply topically 2 times daily.Historical Med warfarin (COUMADIN) 1 mg tablet 6 mg dailyDisp-30 tablet, R-0, Print ALLERGIES Allergies Allergen Reactions Latex Rash FAMILY HISTORY Family History Problem Relation Age of Onset Heart disease Father SOCIAL HISTORY History Social History Marital Status: Spouse Name: N/A Number of Children: N/A Years of Education: N/A Social History Main Topics Smoking status: Never Smoker Smokeless tobacco: Not on file Alcohol Use: No Drug Use: Not on file Sexual Activity: Not on file Other Topics Concern None Social History Narrative REVIEW OF SYSTEMS All systems reviewed and found negative except what is in the HPI PHYSICAL EXAM VITAL SIGNS: BP 119/51 mmHg | Pulse 65 | Temp(Src) 37.4 C (99.3 F) (Tympanic) | Resp 2 0 | Ht 1.651 m (5' 5") | Wt 97.523 kg (215 lb) | BMI 35.78 kg/m2 | SpO2 93% Constitutional: Well developed, obese, moderate acute respiratory distress, Non-toxic appe arance. HENT: Normocephalic, Atraumatic, Bilateral external ears normal, Tympanic membranes normal , Mucous membranes are moist, Nasal mucosa is normal. Oropharynx is clear. Eyes: Conjunctiva normal, No discharge. Palpebral conjunctiva are pink. Neck: Normal range of motion, No tenderness, Supple, No stridor. Respiratory: Diminished bilaterally, tachypneic, no wheezing Chest: Non tender, no signs of trauma Cardiovascular: Normal heart rate, Normal rhythm GI: Soft, Non tenderness, No peritoneal signs, No masses Extremities: Warm and well perfused, 2+ bilateral lower extremity edema, no joint swelling or deformity. Good ROM. Back: No CVAT, No tenderness of the thoracic or lumbar spine. Skin: Warm, Dry, No erythema, No induration, No rash. Neurologic: Alert & oriented x 3, No focal motor or sensory deficits. Speech is clear. G ait is normal. RADIOLOGY Portable chest x-ray: IMPRESSION - 1. STABLE CARDIOMEGALY, PROMINENCE OF THE PULMONARY VASCULATURE AND DENSE LEFT BASILAR ATELECTASIS/CONSOLIDATION, WITH PROBABLE SMALL LEFT PLEURAL EFFUSION. ED COURSE & MEDICAL DECISION MAKING Pertinent Labs & Imaging studies reviewed. (See chart for details) The patient was seen and examined shortly after arriving in the emergency department. Hist ory and physical were obtained, vital signs were noted. Findings are most consistent with a congestive heart failure exacerbation. I gave him a dose of Lasix in the ER. I will incre ase his daily Lasix for one week. Follow-up with primary care. FINAL IMPRESSION 1. Acute exacerbation of CHF (congestive heart failure) ([facility]) PLAN Follow-up Information Schedule an appointment as soon as possible for a visit with Emelina Robertson MD. Specialty: Internal Medicine Contact information: [address] [place] [id number] Discharge Medication List as of 04/20/2016 16:37 Parish Rhoades MD 04/20/16 2156 docume nted in this encounter Miscellaneous Notes ED Triage Notes - Jojo Martin RN - 04/20/2016 2:17 PM PDTPatient c/o SOB reports yahaira t it has been ongoing for some time. Denies chest pain at this time documented in this encounter Plan of Treatment [...] Dx); | | | | | [place] [address] | Pacemaker Dual | | | | | [phone] | Chamber, MRI | | | | [...] | | | | | [facility] [place] | | | | | | [address] | | | | | | | | +--------+ + + + + + +------+--------+ + + | Name | Type | Priori | Associated Diagnoses | Date/Time | | | | ty | | | + +------+--------+ + + | ED INFORMATION | SHAZIA | Routin | | 04/20/2016 2:00 PM | | EXCHANGE | | e | | PDT | + +------+--------+ + + documented as of this encounter Procedures + +--------+ + + + | Procedure Name | Priori | Date/Time | Associated Diagnosis | Comments | | | ty | | | | + +--------+ + + + | EXTRA GREEN TOP TUBE | Routin | 04/20/2016 | | Results for this | | | e | 2:52 PM | | procedure are in the | | | | PDT | | results section. | + +--------+ + + + | EXTRA GOLD TOP TUBE | Routin | 04/20/2016 | | Results for this | | | e | 2:52 PM | | procedure are in the | | | | PDT | | results section. | + +--------+ + + + | EXTRA BLUE TOP TUBE | Routin | 04/20/2016 | | Results for this | | | e | 2:52 PM | | procedure are in the | | | | PDT | | results section. | + +--------+ + + + | CBC WITH | STAT | 04/20/2016 | | Results for this | | DIFFERENTIAL | | 2:52 PM | | procedure are in the | | | | PDT | | results section. | + +--------+ + + + | B TYPE NATRIURETIC | STAT | 04/20/2016 | | Results for this | | PEPTIDE | | 2:52 PM | | procedure are in the | | | | PDT | | results section. | + +--------+ + + + | COMPREHENSIVE | STAT | 04/20/2016 | | Results for this | | METABOLIC PANEL | | 2:52 PM | | procedure are in the | | | | PDT | | results section. | + +--------+ + + + | XR CHEST AP PORTABLE | STAT | 04/20/2016 | | Results for this | | | | 2:36 PM | | procedure are in the | | | | PDT | | results section. | + +--------+ + + + | ED INFORMATION | Routin | 04/20/2016 | | | | EXCHANGE | e | 2:00 PM | | | | | | PDT | | | + +--------+ + + + documented in this encounter Results Extra Blue Top Tube (04/20/2016 2:52 PM PDT) + +-------+ + + + | Component | Value | Ref Range | Performed | Pathologist | | | | | At | Signature | + +-------+ + + + | Extra Blue | Done | | [facility] | | | Top Tube | | | [facility] | | [...] + | [facility] | [address] | [place] | [phone] | | [facility] | | [address] | | | - LABORATORY | | | | + + + + + Extra Green Top Tube (04/20/2016 2:52 PM PDT) + +-------+ + + + | Component | Value | Ref Range | Performed | Pathologist | | | | | At | Signature | + +-------+ + + + | Extra Green | Done | | [facility] | | | Top Tube | | | [facility] | | [...] [address] | [place] | [phone] | | [facility] | | [address] | | | - LABORATORY | | | | + + + + + Extra Gold Top Tube (04/20/2016 2:52 PM PDT) + +-------+ + + + | Component | Value | Ref Range | Performed | Pathologist | | | | | At | Signature | + +-------+ + + + | Extra Gold | Done | | [facility] | | | Top Tube | | | [facility] | | | | [...] | + + + + + | [facility] | [address] | [place] | [phone] | | [facility] | | [address] | | | - LABORATORY | | | | + + + + + B Type Natriuretic Peptide (04/20/2016 2:52 PM PDT) + + + + + + | Component | Value | Ref Range | Performed | Pathologist | | | | | At | Signature | + + + + + + | BNP | 1,133 (H) | <100 pg/mL | [facility] | [...] + | [facility] | [address] | [place] | [phone] | | [facility] | | [address] | | | - LABORATORY | | | | + + + + + Comprehensive Metabolic Panel (04/20/2016 2:52 PM PDT) + + + + + [...] + + + + | Cl | 102 | 98 - 109 mmol/L | [facility] | | | | | | [facility] | | | | | | MEDICAL | | | | | | CENTER - | | | | | | LABORATORY | | + + + + + + | CO2 | 31 | 24 - 31 mmol/L | [facility] [...] + + + + | Glucose | 127 (H) | 70 - 109 mg/dL | [...] + + + + | Creatinine | 1.50 (H) | 0.60 - 1.30 | [facility] [...] mL/min/1.73m2 | [facility] | | | [place] | RATE,ESTIMATED | | MEDICAL | | | | mL/min/1.00t2Iiks than | | CENTER - | | [...] Albumin | 3.5 | 3.2 - 5.0 g/dL | [facility] | | | | | | [facility] | | | | | | MEDICAL | | | | | | CENTER - | | | | | | LABORATORY | | + + + + + + | Bilirubin | 1.5 | 0.1 - 1.5 mg/dL | [facility] | | | Total | | | [facility] | | | | | | MEDICAL | | | | | | CENTER - | | | | | | LABORATORY | | + + + + + + | Total | 6.3 | 6.0 - 7.8 g/dL | [facility] | | | Protein | | | [facility] | | | | | | MEDICAL | | | | | | CENTER - | | | | | | LABORATORY | | + + + + + + | AST | 37 | 10 - 42 U/L | [facility] [...] + + + + | Alkaline | 44 | 40 - 110 U/L | [facility] [...] + + + + | BUN/Creatin | 25.3 | | [facility] | | | ine [...] [address] | [place] | [phone] | | [facility] | | [address] | | | - LABORATORY | | | | + + + + + CBC with Differential (04/20/2016 2:52 PM PDT) + + + + + + | Component | Value | Ref Range | Performed | Pathologist | | | | | At | Signature | + + + + + + | White Blood | 10.4 | 4.0 - 11.0 K/uL | [facility] | | | Cells | | | [facility] | | | | | | MEDICAL | | | | | | CENTER - | | | | | | LABORATORY | | + + + + + + | Red Blood | 4.19 (L) | 4.30 - 5.70 | [facility] | | | Cells | | M/uL | [facility] | | | | | | MEDICAL | | | | | | CENTER - | | | | | | LABORATORY | | + + + + + + | Hemoglobin | 11.2 (L) | 13.5 - 18.0 | [facility] | | | | | g/dL | [facility] | | | | | | MEDICAL | | | | | | CENTER - | | | | | | LABORATORY | | + + + + + + | Hematocrit | 35.5 (L) | 40.0 - 51.0 % | [facility] | | | | | | [facility] | | | | | | MEDICAL | | | | | | CENTER - | | | | | | LABORATORY | | + + + + + + | MCV | 84.8 | 83.0 - 101.0 fL | [facility] | | | | | | [facility] | | | | | | MEDICAL | | | | | | CENTER - | | | | | | LABORATORY | | + + + + + + | MCH | 26.7 (L) | 28.0 - 35.0 pg | [...] + + + + | RDW-CV | 17.6 (H) | <15.0 % | [facility] | | | | | | [facility] | | | | | | MEDICAL | | | | | | CENTER - | | | | | | LABORATORY | | + + + + + + | Platelet | 180 | 140 - 440 K/uL | [facility] | | | Count | | | [facility] | | | | | | MEDICAL | | | | | | CENTER - | | | | | | LABORATORY | | + + + + + + | MPV | 8.1 | fL | [facility] | | | | | | [facility] | | | | | | MEDICAL | | | | | | CENTER - | | | | | | LABORATORY | | + + + + + + | % | 54.4 | 45.0 - 82.0 % | [facility] | | | Neutrophils | | | [facility] | | | | | | MEDICAL | | | | | | CENTER - | | | | | | LABORATORY | | + + + + + + | % | 31.8 | 20.0 - 45.0 % | [facility] | | | Lymphocytes | | | [facility] | | | | | | MEDICAL | | | | | | CENTER - | | | | | | LABORATORY | | + + + + + + | % Monocytes | 12.5 (H) | 4.0 - 12.0 % | [facility] | | | | | | [facility] | | | | | | MEDICAL | | | | | | CENTER - | | | | | | LABORATORY | | + + + + + + | % | 0.8 | 0.0 - 5.0 % | [facility] [...] + + + + | Absolute | 5.70 | 1.80 - 8.50 | [facility] | [...] + + + + | Absolute | 1.30 (H) | 0.00 - 1.00 | [facility] | [...] ST. | [address] | [place] | [phone] | | [facility] | | [address] | | | - LABORATORY | | | | + + + + + XR Chest AP Portable (04/20/2016 2:36 PM PDT) + + | Specimen | + + | | + + + + + | Narrative | Performed At | + + + | TWO AP VIEWS OF THE CHEST 04/20/2016 2:28 PM CLINICAL HISTORY: | [facility] | | SHORTNESS OF BREATH COMPARISON: Chest radiograph March 18 and | | | multiple previous radiographs FINDINGS: Intact sternal wires and a | | | cardiac valve prosthesis persist. There is stable cardiomegaly and | | | prominence of the pulmonary vasculature with calcification of the | | | thoracic aorta. Dense left basilar opacity and obscuration of the | | | hemidiaphragm persist unchanged, along with blunting of the left | | | costophrenic angle. The right lung demonstrates stable mild basilar | | | reticular opacity. No pneumothorax is evident. Generalized | | | osteopenia is suggested. IMPRESSION - 1. STABLE | | | CARDIOMEGALY, PROMINENCE OF THE PULMONARY VASCULATURE AND DENSE LEFT | | | BASILAR ATELECTASIS/CONSOLIDATION, WITH PROBABLE SMALL LEFT PLEURAL | | | EFFUSION. Dictated and Signed by: Yakov Starks MD | | | Electronically signed: 04/20/2016 2:52 PM | | + + + + + | Procedure Note | + + | [place], Rad Results In - 04/20/2016 2:55 PM PDT TWO AP VIEWS OF THE CHEST 04/20/2016 2:28 | | PMCLINICAL HISTORY: SHORTNESS OF BREATHCOMPARISON: Chest radiograph March 18 and multiple | | previous radiographsFINDINGS: Intact sternal wires and a cardiac valve prosthesis | | persist. There isstable cardiomegaly and prominence of the pulmonary vasculature | | withcalcification of the thoracic aorta. Dense left basilar opacity and obscurationof | | the hemidiaphragm persist unchanged, along with blunting of the leftcostophrenic angle. | | The right lung demonstrates stable mild basilar reticularopacity. No pneumothorax is | | evident. Generalized osteopenia is suggested.IMPRESSION -1. STABLE CARDIOMEGALY, | | PROMINENCE OF THE PULMONARY VASCULATURE AND DENSE LEFTBASILAR ATELECTASIS/CONSOLIDATION, | | WITH PROBABLE SMALL LEFT PLEURAL EFFUSION.Dictated and Signed by: Yakov Starks MD | | Electronically signed: 04/20/2016 2:52 PM | |opacity. No pneumothorax is evident. Generalized osteopenia is suggested. | | | |IMPRESSION - | | | |1. STABLE CARDIOMEGALY, PROMINENCE OF THE PULMONARY VASCULATURE AND DENSE LEFT | |BASILAR ATELECTASIS/CONSOLIDATION, WITH PROBABLE SMALL LEFT PLEURAL EFFUSION. | | | |Dictated and Signed by: Yakov Starks MD | | Electronically signed: 04/20/2016 2:52 PM | + + + +---------+ + + | Performing | Address | City/State/Zipcode | Phone Number | | Organization | | | | + +---------+ + + | [facility] | | | | + +---------+ + + documented in this encounter Visit Diagnoses + + | Diagnosis | + + | Acute exacerbation of CHF (congestive heart failure) (HCC) - Primary Congestive heart | | failure, unspecified | + + | Remote Device Interrogation [...] | | | + +--------+ +-------+------+------+ | albuterol-ipratropium (DUONEB) | Given | 04/20/20 | 3 mLs | | | | 2.5-0.5 mg/3 mL nebulizer | | 16 2:27 | | | | | solution 3 mL 3 mL, | | PM PDT | | | | | Nebulization, RT Once, 04/20/16 | | | | | | | at 1420, For 1 dose | | | | | | + +--------+ +-------+------+------+ +---+---+ | | | +---+---+ + +-------+ +-------+---+---+ | furosemide (LASIX) injection 80 | Given | 04/20/20 | 80 mg | | | | mg 80 mg, Intravenous, ONCE, | | 16 3:50 | | | | | 04/20/16 at 1545, For 1 dose | | PM PDT | | | | + +-------+ +-------+---+---+ +---+---+ | | | +---+---+ documented in this encounter
--- OUTSIDE RECORDS SUMMARY | ~2020-04-29 | XMS | Encounter Summary ---
Demographics + + + | Address | [address] | | | [place] [address] | + + + | Home Phone | | + + + | Preferred Language | Unknown | + + + | Marital Status | | + + + | Restoration Affiliation | [id number] | + + + [...] Team Providers + +------+ + | Care Veneer Press Operator Name | Role | Phone | + +------+ + | Antonio Paulino MD | PCP | | + +------+ + Encounter Details +--------+ + + + + | Date | Type | Department | Care Team | Description | +--------+ + + + + | 06/19/ | Abstract | [facility] [place] | Cruz[place] Bird, | | | 2016 | | [facility] [address] [place] | | | | | [place], | [place], | | | | | [place] [address] | [place] [address] | | | | | [phone] | [phone] | | | | | | | [...] | 2020 | Monitor | | [facility] | Interrogation | | | | | [facility] [place], | (Primary Dx); | | | | | [place] [address] | Pacemaker Dual | | | | | [phone] | Chamber, MRI | | | | [...] [place] | | | | | | [id number] | | | | | | | | +--------+ + + + + documented as of this encounter Visit Diagnoses Not on filedocumented in this encounter"
--- OUTSIDE RECORDS SUMMARY | ~2020-04-29 | XMS | Encounter Summary ---
Demographics + + + | Address | [address] | | | [place] [address] | + + + | Home Phone | | + + + | Preferred Language | Unknown | + + + | Marital Status | | + + + | Confucianist Affiliation | 1061 | + + + | Race | Unknown | + + + | Ethnic Group | Unknown | + + + Author + + + | Author | [facility] | | | and [place] | + + + | Organization | [facility] | | | and [...] Team Providers + +------+ + | Care Traveler Changer Name | Role | Phone | + [...] | +--------+ + + + + | 07/16/ | Implant | [facility] | Cruzito Bird, | Pacemaker | | 2017 | Monitor | CARDIOLOGY [address] [place] | reprogramming/check | | | | [place], | [place], | (Primary Dx); | | | | [place] [address] | [place] [address] | Pacemaker Dual | | | | [phone] | [phone] | Chamber, MRI | | | | [...] encounter Procedure Notes Cruzito Bird MD - 07/16/2017 11:59 PM PDTAssociated Order(s): DEVICE INTERROGATION- R EMOTEProcedure(s): DEVICE INTERROGATION- REMOTEPre-Procedure Diagnose(s): Pacemaker reprogra mming/check; Pacemaker; Tachycardia-bradycardia syndrome (HCC)Refer to [facility] documentation and remote PDF scanned into iProcure for remote interrogation results. Data collected by Mel Horne RN Presenting rhythm: Sinus rhythm atrial paced ventricular sensed 60 bpm. 47678 mode switch episodes accounting for 19% of the time. 10,147atrial high rate episodes. The longest occurred 05/18/17 at 4:31pm for 19 hours, 36 mi nutes, 2 seconds. EGM is consistent with atrial flutter with 2 to 1 conduction rate 108. 5 ventricular high rate episodes. The longest occurred 05/25/17 at 10:03 am for 1 hour, 5 min utes, 44 seconds. EGM is consistent with atrial flutter with variable conduction 130-210. PVC singles 0 PVC runs 60 PVC runs 30/month Histogram flat. Battery longevity 8.9 years. Apparent normal and stable device function. Device interrogation due in office in 08/2017. documented in this encounter Plan of Treatment +--------+ + + + + | Date | Type | Specialty | Care Team | Description | +--------+ + + + + | 07/20/ | Implant | Cardiology | Cruzito Bird, | Remote Device | | 2019 | Monitor | | [facility] | Interrogation | | | | | [facility], | (Primary Dx); | | | | | [place] [address] | Pacemaker Dual | | | | | [phone] | Chamber, MRI | | | | | | compatible, 05/14/17 | | | | | | [facility]; | | | | | | Tachycardia-bradycar | | | | | | pbalo syndrome (HCC) | +--------+ + + + + | 01/05/ | Office | Cardiology | Emely Gabriel, | | | 2020 | Visit | | [employer] [address] | | | | | | [place] | | | | | | [address] | | | | | | | | +--------+ + + + + documented as of this encounter Procedures + +--------+ + + + | Procedure Name | Priori | Date/Time | Associated Diagnosis | Comments | | | ty | | | | + +--------+ + + + | DEVICE | Routin | 07/16/2017 | Pacemaker | Results for this | | INTERROGATION- | e | 11:59 PM | reprogramming/check | procedure are in the [...] this encounter Results Device Interrogation - Remote (07/16/2017 11:59 PM PDT) + + + | Narrative | Performed At | + + + | Cruzito | [facility] | | MD Marge 09/03/2017 6:02Refer to [facility]ace[facility] documentation | | | and remote PDF scanned into iProcure for remote interrogation results. | | | Data collected by BATSHEVA Hightowerresenting rhythm: Sinus | | | rhythm atrial paced ventricular sensed 60 bpm.95128 mode switch | | | episodes accounting for 19% of the time.10,147atrial high rate | | | episodes. The longest occurred 05/18/17 at 4:31pm for 19 hours, 36 | | | minutes, 2 seconds. EGM is consistent with atrial flutter with 2 to 1 | | | conduction rate 108.5 ventricular high rate episodes. The longest | | | occurred 05/25/17 at 10:03 am for 1 hour, 5 minutes, 44 seconds. EGM | | | is consistent with atrial flutter with variable conduction 130-210.PVC | | | singles 0 PVC runs 60 PVC runs | | | 30/monthHistogram flat. Battery longevity 8.9 years.Apparent | | | normal and stable device function.Device interrogation due in office | | | in 08/2017. | | |Histogram flat. Battery longevity 8.9 years. | | |Apparent normal and stable device function. | | |Device interrogation due in office in 08/2017. | | | | | | | | | | | | | | | | | + + + + +---------+ + + | Performing | Address | City/State[facility] | Phone Number | | Organization | [...]
--- OUTSIDE RECORDS SUMMARY | ~2020-04-29 | XMS | Encounter Summary ---
Demographics + + + | Address | [address] | | | [place] [address] | + + + | Home Phone [...] Team Providers + +------+ + | Care Street Light Cleaner Name | Role | Phone | + [...] + | 05/21/ | Clinical | [facility] | Cruzito Bird, | Tachycardia-bradycar | | 2017 | Support | CARDIOLOGY [address] [place] | pablo syndrome (HCC) | | | | [place], | [place], | (Primary Dx); | | | | [place] [address] | [place] [address] | Pacemaker Dual | | | | [phone] | [phone] | Chamber, MRI | | | | [...] uled an appointment with Dr Paulino at [facility] on Saturday05/27/17 at 10 AM. No labs [...] states he shou ld be at the [facility] and is upset he is missing his appointment with Dr Paulino because his facili ty dropped him off here instead. I ended up calling the [facility] for patient and scheduled an appo intment [...] Dx); | | | | | [place] [address] | Pacemaker Dual | | | | | [phone] | Chamber, MRI | | | | [...] [place] | | | | | | [address] | | | | | | | [...]
--- OUTSIDE RECORDS SUMMARY | ~2020-04-29 | XMS | Encounter Summary ---
Demographics + + + | Address | [address] | | | [place] [address] | + + + | Home Phone | | + + + | Preferred Language | Unknown | + + + | Marital Status | | + + + | Baptist Affiliation | 1061 | + + + | Race | Unknown | + + + | Ethnic Group | Unknown | + + + Author + + + | Author | [facility] | | | and [place] | + + + | Organization | [facility] | | | [...] Team Providers + +------+ + | Care Freight Tallier Name | Role | Phone | + +------+ + | Antonio Paulino MD | PCP | | + +------+ + Encounter Details +--------+ + + + + | Date | Type | Department | Care Team | Description | +--------+ + + + + | 01/30/ | Orders Only | [facility] | Leatha Hernández | | | 2017 | | [address] | | | | | [place] | [address] | | | | | [place], [place] | [place] [address] | | | | | [address] | [phone] | | | | | [phone] | | | +--------+ + + + [...] Dx); | | | | | [place] [address] | Pacemaker Dual | | | | | [phone] | Chamber, MRI | | | | | | compatible, 05/14/17 | | | | | | [facility]; | | | | | | 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) | +--------+ + + + + | 01/05/ | Office | Cardiology | Emely Gabriel, | | | 2020 | Visit | | CREDIT REPRESENTATIVE [address] [place] | | | | | | [place] | | | | | | [address] | | | | | | | | +--------+ + + + + documented as of this encounter Procedures + +--------+ + + + | Procedure Name | Priori | Date/Time | Associated Diagnosis | Comments | | | ty | | | | + +--------+ + + + | ECHO INTERPRETATION | Routin | 01/30/2017 | | Results for this | | OF OUTSIDE FILMS | e | 1:40 PM | | procedure are in the | | | | PDT | | results section. | + +--------+ + + + documented in this encounter Results ECHO Interpretation of Outside Films (01/30/2017 1:40 PM PDT) + + | Specimen | + + | | + + + + + | Impressions | Performed At | + + + | 1. Overall left ventricular systolic function is normal with, an EF | | | between 65 - 70 %. 2. Pseudonormal LV diastolic filling pattern, | | | consistent with elevated LA pressure and moderate dysfunction (Grade | | | II). 3. The right ventricle is normal in size and function. 4. There | | | is mild bi-atrial enlargement. 5. 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 6. There is mild pulmonary hypertension. | | + + + + + + | Narrative | Performed At | + + + | Patient Name: Johnny Siddiqi Date of : 1935 | | | Performing Physician: Benjamín Garces | | | | | | INDICATIONS AVR, CHF, CAD, AFIB CONCLUSIONS | | | 1. Overall left ventricular systolic function is normal | | | with, an EF between 65 - 70 %. 2. Pseudonormal LV diastolic filling | | | pattern, consistent with elevated LA pressure and moderate dysfunction | | | (Grade II). 3. The right ventricle is normal in size and function. | | | 4. There is mild bi-atrial enlargement. 5. Normally functioning | | | mechanical prosthetic aortic valve. 6. There is mild pulmonary | | | hypertension. FINDINGS -------- ECG rhythm: Sinus rhythm with | | | extra systolic beats. Study: A 2-dimensional transthoracic | | | echocardiogram with m-mode, spectral and color flow Doppler was | | | perfomed at [facility]. Study: This was a technically | | | adequate study. Left Ventricle: Overall left ventricular systolic | | | function is normal with, an EF between 65 - 70 %. Left Ventricle: The | | | left ventricle cavity size is normal. Left Ventricle: Sigmoid shaped | | | septum with focal hypertrophy of the basal septum. The remaining wall | | | thickness is normal. Left Ventricle: Pseudonormal LV diastolic | | | filling pattern, consistent with elevated LA pressure and moderate | | | dysfunction (Grade II). Right Ventricle: The right ventricle is | | | normal in size and function. Left Atrium: The left atrium is mildly | | | enlarged. Right Atrium: The right atrium is mildly enlarged. Aortic | | | Valve: There is no evidence of aortic regurgitation. Aortic Valve: | | | The aortic valve area by continuity equation is 2.1cm Aortic | | | Valve: Peak/mean gradient across the valve is 13.29mmHg/6.19mmHg. | | | Aortic Valve: Normally functioning mechanical prosthetic valve (known | | | to be a #23 [facility] [facility] aortic prosthesis). Mitral Valve: Mild mitral | | | regurgitation is present. Mitral Valve: Mild mitral annular | | | calcification present. Mitral Valve: There is mild calcification of | | | the anterior mitral valve leaflet. Mitral Valve: There is mild | | | calcification of the posterior mitral valve leaflet. Tricuspid Valve: | | | The tricuspid valve appears structurally normal. Tricuspid Valve: | | | Mild tricuspid regurgitation present. Tricuspid Valve: There is mild | | | pulmonary hypertension. Pulmonic Valve: The pulmonic valve was not | | | well visualized. Pulmonic Valve: Mild pulmonic regurgitation. | | | Pericardium: There is no pericardial effusion. IVC/Hepatic Veins: The | | | inferior vena cava is normal in size and collapses > 50 % with sniff, | | | indicating normal central venous pressures. Aorta: The aortic root, | | | ascending aorta and aortic arch are normal. MEASUREMENTS | | | Ao asc: 3.58 cm Ao sinus: 3.32 cm IVC: 1.90 | | | cm LA Diam: 5.80 cm EDV(Teich): 106.58 ml IVSd: 1.44 cm | | | LVIDd: 4.78 cm LVPWd: 1.14 cm LVOT Area: 3.28 cm2 LVOT | | | Diam: 2.04 cm LVEF MOD A4C: 58.49 % SV MOD A4C: 62.35 ml | | | LVEDV MOD A4C: 106.59 ml LVLd A4C: 8.86 cm LVESV MOD A4C: | | | 44.24 ml LVLs A4C: 7.68 cm LAESV(A-L): 68.77 ml LAESV Index | | | (A-L): 34.73 ml/m2 LAAs A2C: 21.27 cm2 LAESV A-L A2C: 73.45 | | | ml LALs A2C: 5.23 cm LAAs A4C: 19.91 cm2 LAESV A-L A4C: | | | 57.38 ml LALs A4C: 5.86 cm RAAs: 19.51 cm2 RAESV A-L: | | | 66.78 ml RAESV MOD: 62.08 ml RALs: 4.84 cm AV maxP.28 | | | mmHg AV meanP.19 mmHg AV Vmax: 1.82 m/s AV Vmean: | | | 1.14 m/s AV VTI: 37.18 cm CLARENCE Vmax: 2.10 cm2 CLARENCE (VTI): | | | 2.06 cm2 AVAI Vmax: 0.00 cm2/m2 AVAI (VTI): 0.00 cm2/m2 LVOT | | | maxP.43 mmHg LVOT meanP.09 mmHg LVSI Dopp: 38.79 | | | ml/m2 LVSV Dopp: 76.82 ml LVOT Vmax: 1.16 m/s LVOT Vmean: | | | 0.65 m/s LVOT VTI: 23.36 cm MV A Kings: 0.74 m/s MV DecT: | | | 173.87 ms MV E Kings: 1.20 m/s MV E/A Ratio: 1.62 MV PHT: | | | 50.42 ms MVA By PHT: 4.36 cm2 Septal e': 0.03 m/s Septal | | | E/e': 36.80 Lateral e': 0.06 m/s Lateral E/e': 17.61 RAP: | | | 5 mmHg RVSP: 40.93 mmHg TR maxP.93 mmHg TR Vmax: | | | 2.99 m/s Activities Therapist: SLAVA Authenticated by: Benjamín Garces | | | Report Date/Time: 02-02-2017 18:02:16 | | + + + + + | Procedure Note | + + | Duane, Rad Conversion - 06/11/2019 6:52 PM PDT Patient Name: Irwin Siddiqi of | | : 1935 Performing Physician: Benjamín Coats | | [place] INDICATIONS | | -AVR, CHF, CAD, AFIB CONCLUSIONS 1. Overall left ventricular systolic function | | is normal with, an EF between 65 - 70 %.2. Pseudonormal LV diastolic filling pattern, | | consistent with elevated LA pressure and moderate dysfunction (Grade II).3. The right | | ventricle is normal in size and function.4. There is mild bi-atrial enlargement.5. | | Normally functioning mechanical prosthetic aortic valve.6. There is mild pulmonary | | hypertension. FINDINGS--------ECG rhythm: Sinus rhythm with extra systolic beats.Study: | | A 2-dimensional transthoracic echocardiogram with m-mode, spectral and color flow | | Doppler was perfomed at [facility].Study: This was a technically adequate | | study.Left Ventricle: Overall left ventricular systolic function is normal with, an EF | | between 65 - 70 %.Left Ventricle: The left ventricle cavity size is normal.Left | | Ventricle: Sigmoid shaped septum with focal hypertrophy of the basal septum. The | | remaining wall thickness is normal.Left Ventricle: Pseudonormal LV diastolic filling | | pattern, consistent with elevated LA pressure and moderate dysfunction (Grade II).Right | | Ventricle: The right ventricle is normal in size and function.Left Atrium: The left | | atrium is mildly enlarged.Right Atrium: The right atrium is mildly enlarged.Aortic | | Valve: There is no evidence of aortic regurgitation.Aortic Valve: The aortic valve area | | by continuity equation is 2.1cm Aortic Valve: Peak/mean gradient across the valve | | is 13.29mmHg/6.19mmHg.Aortic Valve: Normally functioning mechanical prosthetic valve | | (known to be a #23 [employer] aortic prosthesis).Mitral Valve: Mild mitral regurgitation | | is present.Mitral Valve: Mild mitral annular calcification present.Mitral Valve: There | | is mild calcification of the anterior mitral valve leaflet.Mitral Valve: There is mild | | calcification of the posterior mitral valve leaflet.Tricuspid Valve: The tricuspid valve | | appears structurally normal.Tricuspid Valve: Mild tricuspid regurgitation | | present.Tricuspid Valve: There is mild pulmonary hypertension.Pulmonic Valve: The | | pulmonic valve was not well visualized.Pulmonic Valve: Mild pulmonic | | regurgitation.Pericardium: There is no pericardial effusion.IVC/Hepatic Veins: The | | inferior vena cava is normal in size and collapses > 50 % with sniff, indicating normal | | central venous pressures.Aorta: The aortic root, ascending aorta and aortic arch are | | normal. MEASUREMENTS Ao asc: 3.58 cmAo sinus: 3.32 cmIVC: 1.90 cmLA | | Diam: 5.80 cmEDV(Teich): 106.58 mlIVSd: 1.44 cmLVIDd: 4.78 cmLVPWd: 1.14 | | cmLVOT Area: 3.28 [id number] Diam: 2.04 cmLVEF MOD A4C: 58.49 %SV MOD A4C: 62.35 | | mlLVEDV MOD A4C: 106.59 mlLVLd A4C: 8.86 cmLVESV MOD A4C: 44.24 mlLVLs A4C: 7.68 | | cmLAESV(A-L): 68.77 mlLAESV Index (A-L): 34.73 ml/m2LAAs A2C: 21.27 [id number] A-L | | A2C: 73.45 mlLALs A2C: 5.23 cmLAAs A4C: 19.91 [id number] A-L A4C: 57.38 mlLALs | | A4C: 5.86 cmRAAs: 19.51 [id number] A-L: 66.78 mlRAESV MOD: 62.08 mlRALs: 4.84 | | cmAV maxP.28 mmHgAV meanP.19 mmHgAV Vmax: 1.82 m/Willie Vmean: 1.14 m/Willie | | VTI: 37.18 cmAVA Vmax: 2.10 cm2AVA (VTI): 2.06 [id number] Vmax: 0.00 cm2/m2AVAI | | (VTI): 0.00 cm2/m2LVOT maxP.43 mmHgLVOT meanP.09 mmHgLVSI Dopp: 38.79 | | ml/m2LVSV Dopp: 76.82 mlLVOT Vmax: 1.16 m/sLVOT Vmean: 0.65 m/sLVOT VTI: 23.36 | | cmMV A Kings: 0.74 m/sMV DecT: 173.87 msMV E Kings: 1.20 m/sMV E/A Ratio: 1.62MV | | PHT: 50.42 msMVA By PHT: 4.36 qc6Ymyhjo e': 0.03 m/sSeptal E/e': 36.80Lateral | | e': 0.06 m/sLateral E/e': 17.61RAP: 5 mmHgRVSP: 40.93 mmHgTR maxP.93 | | mmHgTR Vmax: 2.99 m/s Activities Therapist: DHAuthenticated by: Benjamín Rosa | | Date/Time: 02-02-2017 18:02:16 IMPRESSION: 1. Overall left ventricular systolic function | | is normal with, an EF between 65 - 70 %.2. Pseudonormal LV diastolic filling pattern, | | consistent with elevated LA pressure and moderate dysfunction (Grade II).3. The right | | ventricle is normal in size and function.4. There is mild bi-atrial enlargement.5. | | Normally functioning mechanical prosthetic aortic valve.6. There is mild pulmonary | | hypertension. | |Ao asc: 3.58 cm | |Ao sinus: 3.32 cm | |IVC: 1.90 cm | |LA Diam: 5.80 cm | |EDV(Teich): 106.58 ml | |IVSd: 1.44 cm | |LVIDd: 4.78 cm | |LVPWd: 1.14 cm | |LVOT Area: 3.28 cm2 | |LVOT Diam: 2.04 cm | |LVEF MOD A4C: 58.49 % | |SV MOD A4C: 62.35 ml | |LVEDV MOD A4C: 106.59 ml | |LVLd A4C: 8.86 cm | |LVESV MOD A4C: 44.24 ml | |LVLs A4C: 7.68 cm | |LAESV(A-L): 68.77 ml | |LAESV Index (A-L): 34.73 ml/m2 | |LAAs A2C: 21.27 cm2 | |LAESV A-L A2C: 73.45 ml | |LALs A2C: 5.23 cm | |LAAs A4C: 19.91 cm2 | |LAESV A-L A4C: 57.38 ml | |LALs A4C: 5.86 cm | |RAAs: 19.51 cm2 | |RAESV A-L: 66.78 ml | |RAESV MOD: 62.08 ml | |RALs: 4.84 cm | |AV maxP.28 mmHg | |AV meanP.19 mmHg | |AV Vmax: 1.82 m/s | |AV Vmean: 1.14 m/s | |AV VTI: 37.18 cm | |CLARENCE Vmax: 2.10 cm2 | |CLARENCE (VTI): 2.06 cm2 | |AVAI Vmax: 0.00 cm2/m2 | |AVAI (VTI): 0.00 cm2/m2 | |LVOT maxP.43 mmHg | |LVOT meanP.09 mmHg | |LVSI Dopp: 38.79 ml/m2 | |LVSV Dopp: 76.82 ml | |LVOT Vmax: 1.16 m/s | |LVOT Vmean: 0.65 m/s | |LVOT VTI: 23.36 cm | |MV A Kings: 0.74 m/s | |MV DecT: 173.87 ms | |MV E Kings: 1.20 m/s | |MV E/A Ratio: 1.62 | |MV PHT: 50.42 ms | |MVA By PHT: 4.36 cm2 | |Septal e': 0.03 m/s | |Septal E/e': 36.80 | |Lateral e': 0.06 m/s | |Lateral E/e': 17.61 | |RAP: 5 mmHg | |RVSP: 40.93 mmHg | |TR maxP.93 mmHg | |TR Vmax: 2.99 m/s | | | |Activities Therapist: | |Authenticated by: Benjamín Garces | |Report Date/Time: 02-02-2017 18:02:16 | | | |IMPRESSION: | |1. Overall left ventricular systolic function is normal with, an EF between 65 - 70 %. | |2. Pseudonormal LV diastolic filling pattern, consistent with elevated LA pressure and mode rate dysfunction (Grade II). | |3. The right ventricle is normal in size and function. | |4. There is mild bi-atrial enlargement. | |5. Normally functioning mechanical prosthetic aortic valve. | |6. There is mild pulmonary hypertension. | + + documented in this encounter Visit Diagnoses Not on filedocumented in this encounter"
--- OUTSIDE RECORDS SUMMARY | ~2020-04-29 | XMS | Encounter Summary ---
Demographics + + + | Address | [address] | | | [place] [address] | + + + | Home Phone [...] Team Providers + +------+ + | Care Warehouse Specialist Name | Role | Phone | + +------+ + | Antonio Paulino MD | PCP | | + +------+ + Encounter Details +--------+ + + + + | Date | Type | Department | Care Team | Description | +--------+ + + + + | 05/18/ | Orders Only | [facility] | Provider, | | | 2018 | | SYSTEM GENERIC OP | [address] | | | | | [address] | [place] | | | | | [address] [place], [place] | [place] [address] | | | | | [address] | | | | | | [phone] | | | +--------+ + + + [...] | 2019 | Monitor | | [address] [facility] | Interrogation | | | | | [place], | (Primary Dx); | | | | | [place] [address] | Pacemaker Dual | | | | | [phone] | Chamber, MRI | | | | [...] [place] | | | | | | [id number] | | | | | | | | +--------+ + + + + documented as of this encounter Visit Diagnoses Not on filedocumented in this encounter"
--- OUTSIDE RECORDS SUMMARY | ~2020-04-29 | XMS | Encounter Summary ---
Demographics + + + | Address | [address] | | | [place] [address] | + + + | Home Phone | | + + + | Preferred Language | Unknown | + + + | Marital Status | | + + + | Mandaeism Affiliation | 1061 | + + + | Race | Unknown | + + + | Ethnic Group | Unknown | + + + Author + + + | Author | [facility] | | | and [place] | + + + | Organization | [facility] | | [...] Team Providers + +------+ + | Care Chyron Operator Name | Role | Phone | [...] Provider Unknown | | | | | [place], [place] | [phone] | | | | | [address] | | | | | | [phone] | | | +--------+ + + + [...] Interrogation | | | | | [facility] [place], | (Primary Dx); | | | | | [place] [address] | Pacemaker Dual | | | | | [phone] | Chamber, MRI | | | | | | compatible, 05/14/17 | | | | | | [facility]; | | | | | | 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) | +--------+ + + + + | 01/05/ | Office | Cardiology | Emely Gabriel, | | | 2020 | Visit | | FACILITIES MAINTENANCE SUPERVISOR [address] | | | | | | [place] | | | | | | [address] | | | | | | | [...]
--- OUTSIDE RECORDS SUMMARY | ~2020-04-29 | XMS | Encounter Summary ---
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) | | | | [place], | [place], [place] | (Primary Dx); | | | | [place] [address] | [address] | Coronary artery | | | | [phone] | | disease involving | | | | | | [place] coronary | | | | | | artery of [place] | | | | | | heart without angina | | | | | | pectoris; Essential | | | | | | hypertension; | | | | | | Chronic diastolic | | | | | | congestive heart | | | | | | failure ([facility]); | | | | | | Persistent atrial | | | | | | fibrillation ([facility]); | | | | | | Pacemaker | | | | | | reprogramming/check; | | | | | | Pacemaker Dual | | | | | | Chamber, MRI | | | | | | compatible, 05/14/17 | | | | | | [facility]; | | | | | | skilled [...] you for pulmonary function tests, either at [place], or here if the y can't do the correct test. 4. Continue with your home pacemaker monitoring with [email or web address]. 5. Return in 1 year for office [...] regimen. He would continue with his Quarterly [email or web address]Vastari remote device monitoring. Since that time, he was at [facility] ER for dehydration and so he has been careful to drink Gatorade, Essentia wate r and milk to stay hydrated ever since then. He has had a fair energy level. He tries to stay active. He enjoys shopping in his spare ti Softricity. 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 LAB RESULTS reviewed during visit today primarily from [facility]: LIPID No results found for: CHOL, [...] scanned Paceart documentation and device PDF in edo for interrogation (with programming changes) performed during [...] Y.O.(2) and Vascula r disease (1). His [id number] score is 4, which gives an estimated [...] He is in class II of the [place] [employer] functional class. 4. Coronary artery disease involving [place] coronary artery of [place] heart without angina pectoris: A. [facility] 11/14/2004 shows preserved left ventricular systolic function, [...] 3. He will continue with his Quarterly [employer] remote device monitoring. 4. He will follow [...] this chart may have been created with Myfacepage voice recognition software. Occasi onal wrong-word or [...] Free TSH 2. Coronary artery disease involving [place] coronary artery of [place] heart without angina pectoris I25.10 414.01 ECG [...] [facility] Z95.0 V45.01 Device In [facility] Comprehensive Metabolic Panel Lipid Panel CBC no Differential T4, Free TSH XR Chest PA and Lateral Pulmonary function test Comprehensive Metabolic Panel Lipid Panel CBC no Differential T4, Free TSH 8. 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 | | | | | artery of [place] | | | | | | heart [...] the | | | | PDT | [place] coronary | results section. | | | | | artery of [place] | | | | | | heart [...] the | | | | PDT | [place] coronary | results section. | | | | | artery of [place] | | | | | | heart [...] the | | | | PDT | [place] coronary | results section. | | | | | artery of [place] | | | | | | heart [...] the | | | | PDT | [place] coronary | results section. | | | | | artery of [place] | | | | | | heart [...] the | | | | PDT | [place] coronary | results section. | | | | | artery of [place] | | | | | | heart without angina | | | | | | pectoris | | + +--------+ + + + | DEVICE INTERROGATION | Routin | 06/04/2018 | | Results for this | | | e | 12:00 AM | Tachycardia-bradycar | procedure are in the | | | | PDT | pablo syndrome ([facility]) | results section. | | | | [...] | | | PDT | pablo syndrome ([facility]) | results section. 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 No prior pulmonary function tests available for | | |comparison. | | | | | | | | |Test performed: 06/26/18 | | |Electronically signed by: Antonio Hartman MD 06/27/2018 11:09 | | |[facility] | | + + + XR [...] (H)Comment: This | 0.45 - 5.33 | [facility] | | | | is a third generation | uIU/mL | [facility] | | | | TSH test. [...] [address] | [place] | [phone] | | [facility] | | [address] | | | - LABORATORY | | [...] + | [facility] | [address] | [place] | [phone] | | [facility] | | [address] | | | - LABORATORY | | [...] [address] | [place] | [phone] | | [facility] | | [address] | | | - LABORATORY | | [...] | | es | | | [facility] | | [...] | Reference Range as of | | [facility] | | | | June 30, 2015 | | MEDICAL | | | | Values may be 10-20% | | CENTER - | | | | lower with new, | | LABORATORY | | | | standardized method. | | | | + + + + + + | Chol/HDL | 2.5 | | [facility] | | | Ratio | | | [facility] | | | | | | MEDICAL | | | | | | CENTER - | | | | | | LABORATORY | | + + + + + + | LDL, | 59 | <=130 mg/dL | [facility] | | | Calculated | | | [...] [address] | [place] | [phone] | | [facility] | | [address] | | | - LABORATORY | | [...] not | 48 (L)Comment: | >=60 | [facility] | | | | GLOMERULAR FILTRATION | mL/min/1.73m2 | [facility] | | | TAJIK | RATE,ESTIMATED | | MEDICAL | | | | mL/min/1.03g9Tiha than | | CENTER - | | [...] [address] | [place] | [phone] | | [facility] | | [address] | | | - LABORATORY | | | | + + + + + ECG 12 lead (06/04/2018 8:31 AM PDT) + + + + + + | Component | Value | Ref Range | Performed | Pathologist | | | | | At | Signature | + + + + + + | VENTRICULAR | 67 | BPM | [facility] | | [...] MD | | | | | | ([id number]) on 06/05/2018 | | | | | [...] | Emely Gabriel, | PACEART | | [employer] 06/04/2018 15:12 PATIENT NAME: Johnny Siddiqi : [...] | | | Coronary artery disease involving [place] coronary artery of [place] | | | heart without angina pectoris [...] CBC no Differential T4, Free TSH 8. medical terminologist | | | current use of amiodarone [...] MRI compatible, 05/14/17 [facility] | | [facility] Z[facility].0 V45.01 Device Interrogation | | | [...] | | 2. Coronary artery disease involving [place] coronary artery of [place] heart without | | angina pectoris I25.10 [...] CBC no Differential T4, Free TSH 8. medical terminologist current use of amiodarone Z79.899 | | [...] T4, Free | | TSH | |8. skilled nursing current use of [...] + + | Coronary artery disease involving [place] coronary artery of [place] heart without | | angina pectoris | [...] | in situ | + + | skilled [...]
--- OUTSIDE RECORDS SUMMARY | ~2020-04-29 | XMS | Encounter Summary ---
Demographics + + + | Address | [address] | | | [place] [address] | + + + | Home Phone | | + + + | Preferred Language | Unknown | + + + | Marital Status | | + + + | Presybeterian Affiliation | 1061 | + + + | Race | Unknown | + + + | Ethnic Group | Unknown | + + + Author + + + | Author | [facility] | | | and [place] | + + + | Organization | [facility] | | [...] Team Providers + +------+ + | Care Ramp Flight Attendant Name | Role | Phone | [...] | CARDIOLOGY [address] | [address] | Interrogation | | | | [place], | [place], | (Primary Dx); | | | | [place] [address] | [place] [address] | Pacemaker Dual | | | | [phone] | [phone] | Chamber, MRI | | | | [...] Paceart documentation and remote PDF scanned into [facility] for remote interrogation re sults. Data [...] Interrogation | | | | | 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 Data collected [...]
--- OUTSIDE RECORDS SUMMARY | ~2020-04-29 | XMS | Encounter Summary ---
Demographics + + + | Address | [address] | | | [place] [address] | + + + | Home Phone [...] Team Providers + +------+ + | Care Newspaper Photo Editor Name | Role | Phone | [...] | | | | | unspecified | [address] | [place] | | | | | COPD type | Phone: | [facility] | | | | | ([facility]) | [phone] | [address] | | | | | Abnormal PFT | Fax: | Phone: | | | | | Procedures | [phone] | [phone] | | | | | SCHEDULED | | Fax: | | | | | FOR 12/25/18 | | [phone] | +--------+ + + + + + [...] 2017 | | CARDIOLOGY [address] | TAXICAB DRIVER [address] | | | | | [place], | [place] | | | | | [place] [address] | [address] | | | | | [phone] | | | +--------+ + + + [...] 07/04/2018 1:24 PM PDTCalled and spoke with dviine Turner and relayed message per Emely PATEL. Okay per Johnny. Placed referral to [facility] Pulmonology. ...........................................COSTA FENTON RN on 07/04/18 at [...] don't see that he has seen a service delivery analyst, but that would be a reasonable idea at [facility] point. If that is something he is interested in, go ahead and put in referral to [facility] pulmonology department for COPD and abnormal pulmonary function tests. Otherwise, the patient can just discuss further with Dr. Bird at follow up appointment 07/31/18. I did fax a copy of the pulmonary function tests to Dr. Paulino's office as well. Thanks! ...........................................AMANDA Mcmillan on 07/03/18 at 17: 57 documented in [facility] encounter Plan of Treatment +--------+ + + + + | Date | Type | Specialty | Care Team | Description | +--------+ + + + + | 07/20/ | Implant | Cardiology | Cruzito Bird, | Remote Device | | 2019 | Monitor | | [address] | Interrogation | | | | | 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
--- OUTSIDE RECORDS SUMMARY | ~2020-04-29 | XMS | Encounter Summary ---
Demographics + + + | Address | [address] | | | [place] [address] | + + + | Home Phone [...] + +------+ + | Care Consumer Affairs Manager Name | Role | Phone | + +------+ + PCP | Unavailable | + +------+ + Encounter Details +--------+ + + + + | Date | Type | Department | Care Team | Description | +--------+ + + + + | 07/24/ | Hospital | [facility] | Mauricio Goldberg | | | 2000 | Encounter | MED CTR GENERIC OP | MD [address] | | | | | CONV DEPT [address] | [address] | | | | | [place], | [place] [address] | | | | | [place] [address] | [phone] | | | | | [phone] | | | +--------+ + + + [...] Dx); | | | | | [place] [address] | Pacemaker Dual | | | | | [phone] | Chamber, MRI | | | | [...] [place] | | | | | | [address] | | | | | | | | +--------+ + + + + documented as of this encounter Visit Diagnoses Not on filedocumented in this encounter"
--- OUTSIDE RECORDS SUMMARY | ~2020-04-29 | XMS | Encounter Summary ---
Demographics + + + | Address | [address] | | | [place] [address] | + + + | Home Phone | | + + + | Preferred Language | Unknown | + + + | Marital Status | | + + + | Yazidism Affiliation | 1061 | + + + [...] Team Providers + +------+ + | Care Employee Adviser Name | Role | Phone | + [...] Monitor | CARDIOLOGY [address] | [address] | Interrogation | | | | [place], | [place], | (Primary Dx); | | | | [place] [address] | [place] [address] | Pacemaker Dual | | | | [phone] | [phone] | Chamber, MRI | | | | [...] Paceart documentation and remote PDF scanned into [employer] for remote interrogation results. Data collected by [...] Dx); | | | | | [place] [address] | Pacemaker Dual | | | | | [phone] | Chamber, MRI | | | | [...] [place] | | | | | | [address] | | | | | | | [...] | | | remote PDF scanned into [employer] for remote interrogation results. Data | | [...] - 01/14/2018 11:59 PM PDT Refer to [employer] documentation and | | remote PDF scanned into [employer] for remote interrogation results. Data collected by [...]
--- OUTSIDE RECORDS SUMMARY | ~2020-04-29 | XMS | Encounter Summary ---
Demographics + + + | Address | [address] | | | [place] [address] | + + + | Home Phone [...] Team Providers + +------+ + | Care Tile Mechanic Helper Name | Role | Phone | + +------+ + | Antonio Paulino MD | PCP | | + +------+ + Encounter Details +--------+ + + + + | Date | Type | Department | Care Team | Description | +--------+ + + + + | 03/13/ | Orders Only | [facility] | [address] | | | 2015 | | CONVERSION [address] | [address] | | | | | [address] | [place] [address] | | | | | [place], [place] | [place] [address] | | | | | [address] | [phone] | | | | | [phone] | | | +--------+ + + + [...] Dx); | | | | | [place] [address] | Pacemaker Dual | | | | | [phone] | Chamber, MRI | | | | [...] [place] | | | | | | [address] | | | | | | | | +--------+ + + + + documented as of this encounter Procedures + +--------+ + + + | Procedure Name | Priori | Date/Time | Associated Diagnosis | Comments | | | ty | | | | + +--------+ + + + | ECHO INTERPRETATION | Routin | 03/13/2016 | | Results for this | | OF OUTSIDE FILMS | e | 12:13 PM | | procedure are in the | | | | PDT | | results section. | + +--------+ + + + documented in this encounter Results ECHO Interpretation of Outside Films (03/13/2016 12:13 PM PDT) + + | Specimen | + + | | + + + + + | Impressions | Performed At | + + + | 1. See Dictation. TDS. A fib. 2. Valvular Heart Disease. | | | Mechanical AVR, stable, no AI noted, peak/mean gradients 7/4mmHg | | | (low gradients should be reevaluated at some time). Mitral valve has | | | nodular calcification, moderate MAC, mild MR. Tricuspid and | | | Pulmonic valves grossly NML, moderate TR, mild PI. 3. Mild | | | concentric LVH, systolic funcion NML, diastolic function abnormal, | | | [place] visually estimates LVEF 60-65%. Moderate LAE, mild ANDRIA. RV | | | dimensions NML, systolic function impaired. 4. No Pericardial | | | effusion. 5. IVC plethoric, est systolic PAP 46-51mmHg, moderate | | | Pulmonary HTN. | | + + + + + + | Narrative | Performed At | + + + | Patient Name: Johnny Sdidiqi Date of : 1935 | | | Performing Physician: Antonio Payne DO | | | | | | INDICATIONS afib CONCLUSIONS 1. See | | | Dictation. TDS. A fib. 2. Valvular Heart Disease. Mechanical | | | AVR, stable, no AI noted, peak/mean gradients 7/4mmHg (low gradients | | | should be reevaluated at some time). Mitral valve has nodular | | | calcification, moderate MAC, mild MR. Tricuspid and Pulmonic valves | | | grossly NML, moderate TR, mild PI. 3. Mild concentric LVH, systolic | | | funcion NML, diastolic function abnormal, [place] visually estimates | | | LVEF 60-65%. Moderate LAE, mild ANDRIA. RV dimensions NML, systolic | | | function impaired. 4. No Pericardial effusion. 5. IVC plethoric, est | | | systolic PAP 46-51mmHg, moderate Pulmonary HTN. FINDINGS | | | -------- ECG rhythm: Atrial fibrillation. Study: This was a | | | technically difficult study with suboptimal views. Left Ventricle: | | | Overall left ventricular systolic function is normal with, an EF | | | between 60 - 65 %. Left Ventricle: The left ventricle cavity size is | | | normal. Left Ventricle: There is mild concentric left ventricular | | | hypertrophy. Left Ventricle: The diastolic filling pattern indicates | | | impaired relaxation consistent with mild dysfunction (Grade I). Right | | | Ventricle: The right ventricle is normal in size. Right Ventricle: | | | The right ventricular systolic function is moderately impaired. Left | | | Atrium: The left atrium is moderately dilated. Right Atrium: The | | | right atrium is mildly enlarged. Aortic Valve: There is no evidence | | | of aortic regurgitation. Aortic Valve: Peak/mean gradient across the | | | valve is 7/4mmHg. Aortic Valve: Normally functioning mechanical | | | prosthetic valve. 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 Mitral Valve: Mild mitral regurgitation is | | | present. Mitral Valve: Moderate mitral annular calcification present. | | | Tricuspid Valve: The tricuspid valve appears structurally normal. | | | Tricuspid Valve: Moderate tricuspid regurgitation present. Pulmonic | | | Valve: Pulmonic valve appears structurally normal. Pulmonic Valve: | | | Mild pulmonic regurgitation. Pericardium: There is no pericardial | | | effusion. IVC/Hepatic Veins: The IVC is normal size (1.5-2.5cm) and | | | collapses <50% with sniff, consistent with central venous pressures of | | | 10-15mmHg. MEASUREMENTS Call Center Agent: DBS | | | Authenticated by: Antonio Payne DO Report Date/Time: -- | | | [id number] | | + + + + + | Procedure Note | + + | [place], Rad Conversion - 06/11/2019 8:39 PM PDT Patient Name: Irwin Siddiqi of | | : 1935 Performing Physician: Antonio Payne | | DO INDICATIONS a | | fib CONCLUSIONS 1. See Dictation. TDS. A fib.2. Valvular Heart Disease. | | Mechanical AVR, stable, no AI noted, peak/mean gradients 7/4mmHg (low gradients should | | be reevaluated at some time). Mitral valve has nodular calcification, moderate MAC, | | mild MR. Tricuspid and Pulmonic valves grossly NML, moderate TR, mild PI. 3. Mild | | concentric LVH, systolic funcion NML, diastolic function abnormal, [place] visually | | estimates LVEF 60-65%. Moderate LAE, mild ANDRIA. RV dimensions NML, systolic function | | impaired. 4. No Pericardial effusion. 5. IVC plethoric, est systolic PAP 46-51mmHg, | | moderate Pulmonary HTN. FINDINGS--------ECG rhythm: Atrial fibrillation.Study: This was | | a technically difficult study with suboptimal views.Left Ventricle: Overall left | | ventricular systolic function is normal with, an EF between 60 - 65 %.Left Ventricle: | | The left ventricle cavity size is normal.Left Ventricle: There is mild concentric left | | ventricular hypertrophy.Left Ventricle: The diastolic filling pattern indicates impaired | | relaxation consistent with mild dysfunction (Grade I).Right Ventricle: The right | | ventricle is normal in size.Right Ventricle: The right ventricular systolic function is | | moderately impaired.Left Atrium: The left atrium is moderately dilated.Right Atrium: The | | right atrium is mildly enlarged.Aortic Valve: There is no evidence of aortic | | regurgitation.Aortic Valve: Peak/mean gradient across the valve is 7/4mmHg.Aortic Valve: | | Normally functioning mechanical prosthetic valve.Mitral Valve: Mitral valve is | | thickened with nodular degeneration.Mitral Valve: Mild mitral regurgitation is | | present.Mitral Valve: Moderate mitral annular calcification present.Tricuspid Valve: The | | tricuspid valve appears structurally normal.Tricuspid Valve: Moderate tricuspid | | regurgitation present.Pulmonic Valve: Pulmonic valve appears structurally | | normal.Pulmonic Valve: Mild pulmonic regurgitation.Pericardium: There is no pericardial | | effusion.IVC/Hepatic Veins: The IVC is normal size (1.5-2.5cm) and collapses <50% with | | sniff, consistent with central venous pressures of 10-15mmHg. MEASUREMENTS | | Call Center Agent: ADAMAuthenticated by: Antonio Kline Date/Time: -- | | [id number] IMPRESSION: 1. See Dictation. TDS. A fib.2. Valvular Heart | | Disease. Mechanical AVR, stable, no AI noted, peak/mean gradients 7/4mmHg (low | | gradients should be reevaluated at some time). Mitral valve has nodular calcification, | | moderate MAC, mild MR. Tricuspid and Pulmonic valves grossly NML, moderate TR, mild PI. | | 3. Mild concentric LVH, systolic funcion NML, diastolic function abnormal, [place] | | visually estimates LVEF 60-65%. Moderate LAE, mild ANDRIA. RV dimensions NML, systolic | | function impaired. 4. No Pericardial effusion. 5. IVC plethoric, est systolic PAP | | 46-51mmHg, moderate Pulmonary HTN. | |Mitral Valve: Mild mitral regurgitation is present. | |Mitral Valve: Moderate mitral annular calcification present. | |Tricuspid Valve: The tricuspid valve appears structurally normal. | |Tricuspid Valve: Moderate tricuspid regurgitation present. | |Pulmonic Valve: Pulmonic valve appears structurally normal. | |Pulmonic Valve: Mild pulmonic regurgitation. | |Pericardium: There is no pericardial effusion. | |IVC/Hepatic Veins: The IVC is normal size (1.5-2.5cm) and collapses <50% with sniff, consis tent with central venous pressures of 10-15mmHg. | | | |MEASUREMENTS | | | | | |Call Center Agent: ADAM | |Authenticated by: Antonio Payne DO | |Report Date/Time: -- [id number] | | | |IMPRESSION: | |1. See Dictation. TDS. A fib. | |2. Valvular Heart Disease. Mechanical AVR, stable, no AI noted, peak/mean gradients 7/4mmH g (low gradients should be reevaluated at some time). Mitral valve has nodular calcificatio n, moderate MAC, mild MR. Tricuspid | |and Pulmonic valves grossly NML, | |moderate TR, mild PI. 3. Mild concentric LVH, systolic funcion NML, diastolic function abno rmal, [place] visually estimates LVEF 60-65%. Moderate LAE, mild ANDRIA. RV dimensions NML, sy stolic function impaired. 4. | |No Pericardial effusion. 5. 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 | + + documented in this encounter Visit Diagnoses Not on filedocumented in this encounter"
--- OUTSIDE RECORDS SUMMARY | ~2020-04-29 | XMS | Encounter Summary ---
Demographics + + + | Address | [address] | | | [place] [address] | + + + | Home Phone [...] Team Providers + +------+ + | Care Outpatient Phlebotomist Name | Role | Phone | + [...] + + | 05/08/ | Anesthesia | [facility] | Miguel Galicia MD | | | 2017 | Event | MED CTR MP INTRA OP | [address] | | | | | [address] | [place] | | | | | [place] | [address] | | | | | [address] | | | | | | [phone] | | | +--------+ + + + [...] | 05/16/17 1405 by | | | best, venous; 05/16/17; | Mary Cortes RN | Emily Price RN | | | 1405 | | | +--------+ + + + | Periph | 05/08/17; 06; Left; Forearm; | 05/08/17599 by | 05/09/171999 by | | eral | [id number] catheter system; | Xavier Bhardwaj, | Joanna Salazar, | | IV | 22 gauge; removed per | Research Specialist | RN | | | policy/procedure, [...] EVALUATION Johnny Siddiqi 81 y.o. male 1935 [id number] Procedure(s) EGD with Anesthesia (N/A Mouth) Cooperates? [...] signed by Miguel Galicia MD 05/08/2017 11:19 [facility] Galicia MD at 05/08 11:19 AM PDTAnesthesia Preprocedure Evaluation - Miguel Galicia MD - 05/08/2017 9:19 AM PDT ANESTHESIA PREANESTHESIA EVALUATION Johnny Siddiqi 81 y.o. male 1935 [id number] Procedure(s): EGD with Anesthesia (N/A Mouth) Medical [...] | 07/20/ | Implant | Cardiology | Marge Cruzito, | Remote Device | | 2019 | Monitor | | MD Leon Grant | Interrogation | | | | | [place], | (Primary Dx); | | | | | [place] [address] | Pacemaker Dual | | | | | [phone] | Chamber, MRI | | | | [...] | | | | [place], [place] | | | | | | [address] | | | | | | | [...]
--- OUTSIDE RECORDS SUMMARY | ~2020-04-29 | XMS | Encounter Summary ---
Demographics + + + | Address | [address] | | | [place] [address] | + + + | Home Phone [...] Providers + +------+ + | Care Director Agency & Strategic Partnerships Name | Role | Phone | + [...] Monitor | CARDIOLOGY [address] | [address] [place] | Interrogation | | | | [place], | [place], | (Primary Dx); | | | | [place] [address] | [place] [address] | Pacemaker Dual | | | | [phone] | [phone] | Chamber, MRI | | | | [...] Paceart documentation and remote PDF scanned into [facility] for remote interrogation re sults. [...] 2019 | Monitor | | [address] [facility] [place] [place] | Interrogation | | | | | 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 [...] of Remote Interrogation: | | 10/21/18Refer to [employer] documentation and remote PDF scanned into [employer] for remote | | interrogation results. Data [...] + + | Performing | Address | City[facility]State[facility] | Phone Number | | Organization | [...]
--- OUTSIDE RECORDS SUMMARY | ~2020-04-29 | XMS | Encounter Summary ---
Demographics + + + | Address | [address] | | | [place] [address] | + + + | Home Phone | | + + + | Preferred Language | Unknown | + + + | Marital Status | | + + + | Restorationism Affiliation | 1061 | + + + | Race | Unknown | + + + | Ethnic Group | Unknown | + + + Author + + + | Author | [facility] | | | and [place] | + + + | Organization | [facility] | | [...] Team Providers + +------+ + | Care Claims Representative Name | Role | Phone | [...] | CARDIOLOGY [address] | [address] [place] | hypertension | | | | [place], | [place], | (Primary Dx) | | | | [place] [address] | [place] [address] | | | | | [phone] | [phone] | | | | | | | [...] Since that time, patient was seen at [facility] for edema seen on 07/08-07/12 because of [...] is physically active walking the hallways of [place] a few times a day. 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 Patient was seen at [facility] for edema seen on 07/08-07/12. At [...] He is in a class I of [place] Heart Association functional class. There is no [...] 73 Y.O.(2) and Vascular disease (1). His [id number] score is 4, which gives an estimated [...] control strategy. 4. Coronary artery disease involving [place] coronary artery of [place] heart without angina pectoris: A. [facility] 11/14/2004 shows preserved left ventricular systolic function, [...] reviewed and edited this note. Melba Thompson Benefits Assistant 07/31/2018 I, Basia Bird MD, personally performed the services described in this documentation, as scribed in my presence and it is both accurate and complete. Melba Thompson, Med Ass t 07/31/2018 10:41 Electronically signed by: Basia Bird MD [facility] 07/31/2018 Portions of this chart may have been created with [employer] voice recognition software. Occasi onal wrong-word or [...] Dx); | | | | | [place] [address] | Pacemaker Dual | | | | | [phone] | Chamber, MRI | | | | [...] [place] | | | | | | [address] | | | | | | | [...] BASIA | | | | | | ([id number]) on 07/31/2018 | | | | | [...]
--- OUTSIDE RECORDS SUMMARY | ~2020-04-29 | XMS | Encounter Summary ---
Demographics + + + | Address | [address] | | | [place] [address] | + + + | Home Phone [...] Team Providers + +------+ + | Care Program Production Specialist Name | Role | Phone | + +------+ + | Antonio Paulino MD | PCP | | + +------+ + Encounter Details +--------+ + + + + | Date | Type | Department | Care Team | Description | +--------+ + + + + | 04/15/ | Orders Only | [facility] | Benjamín Garces, | | | 2017 | | [facility] [place] | [address] | | | | | [address] | [place], | | | | | [place] | [place] [address] | | | | | [address] | [phone] | | | | | [phone] | | | +--------+ + + + [...] | 2020 | Monitor | | [address] [facility] | Interrogation | | | | | 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
--- OUTSIDE RECORDS SUMMARY | ~2020-04-29 | XMS | Encounter Summary ---
Demographics + + + | Address | [address] | | | [place] [address] | + + + | Home Phone [...] Team Providers + +------+ + | Care Residential Lawn Specialist Name | Role | Phone | [...] Monitor | CARDIOLOGY [address] | [address] [place] | Interrogation | | | | [place], | [place], | (Primary Dx); | | | | [place] [address] | [place] [address] | Pacemaker Dual | | | | [phone] | [phone] | Chamber, MRI | | | | [...] Paceart documentation and remote PDF scanned into [employer] for remote interrogation results. Data collected by [...] Dx); | | | | | [place] [address] | Pacemaker Dual | | | | | [phone] | Chamber, MRI | | | | [...] [place] | | | | | | [address] | | | | | | | [...] | documentation and remote PDF scanned into [employer] for remote | | | interrogation results. [...]
--- OUTSIDE RECORDS SUMMARY | ~2020-04-29 | XMS | Encounter Summary ---
Demographics + + + | Address | [address] | | | [place] [address] | + + + | Home Phone [...] + | Author | [facility] | | | and [place] | + + + | Organization | [facility] | | | and [...] Team Providers + +------+ + | Care Field Supervisor Name | Role | Phone | [...] | | CARDIOLOGY [address] | [address] [place] | pablo syndrome (HCC) | | | | [place], | [place], | | | | | [place] [address] | [place] [address] | | | | | [phone] | [phone] | | | | | | | [...] Interrogation | | | | | 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
--- OUTSIDE RECORDS SUMMARY | ~2020-04-29 | XMS | Encounter Summary ---
Demographics + + + | Address | [address] | | | [place] [address] | + + + | Home Phone [...] Providers + +------+ + | Care Residential Gas Heat Technician Name | Role | Phone | + +------+ + | Emelina Robertson MD | PCP | Unavailable | + +------+ + Encounter Details +--------+ + + + + | Date | Type | Department | Care Team | Description | +--------+ + + + + | 03/21/ | Hospital | [facility] | Wilfredo Woodson, | | | 2016 | Encounter | MED CTR ACUTE | PT [address] | | | | | PHYSICAL THERAPY | [place] | | | | | [address] [place] | [id number] | | | | | [place] [address] | | | | | | [phone] | | | +--------+ + + + [...] Interrogation | | | | | 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
--- OUTSIDE RECORDS SUMMARY | ~2020-04-29 | XMS | Encounter Summary ---
Demographics + + + | Address | [address] | | | [place] [address] | + + + | Home Phone | | + + + | Preferred Language | Unknown | + + + | Marital Status | | + + + | Bahai Affiliation | 1061 | + + + [...] Team Providers + +------+ + | Care Numerical Analysis Group Manager Name | Role | Phone | + +------+ + | Antoino Paulino MD | PCP | | + [...] + + | 12/23/ | Office | 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 Patient was seen at [facility] for edema seen on 07/08-. [...] He is in a class I of [place] Heart Association function al class. There is [...] 1 left ventricular diastolic dysfunction, normally functioning or chanical bileaflet aortic valve replacement, mildly thickened [...] reduced right ventricular systolic function, normal functioning [facility] hanical aortic valve replacement, mildly thickened and [...] 73 Y.O.(2) and Vascular d isease (1). [id number] is 4, which gives an estimated 4.0%risk [...] control strategy. 4. Coronary artery disease involving [place] coronary artery of [place] heart without angina pectoris: A. [facility] 11/14/2004 shows [...] reviewed and edited this note. Trinidad Johnson, Investment Fund Manager 12/23/2018 I, Cruzito Bird MD, personally performed the services described in this documentation, as scribed in my presence and it is both accurate and complete. Trinidad Johnson, Investment Fund Manager 12/23/2018 14:11 Electronically signed by: Cruzito Bird MD [facility] 12/23/2018 Portions of this chart may have been created with [employer] voice recognition software. Occasi onal wrong-word or [...] Interrogation | | | | | 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
--- OUTSIDE RECORDS SUMMARY | ~2020-04-29 | XMS | Encounter Summary ---
Demographics + + + | Address | [address] | | | [place] [address] | + + + | Home Phone [...] Team Providers + +------+ + | Care Diesel Engine Ii Pipe Fitter Name | Role | Phone | + +------+ + | Antonio Paulino MD | PCP | | + +------+ + Encounter Details +--------+ + + + + | Date | Type | Department | Care Team | Description | +--------+ + + + + | 06/04/ | Hospital | [facility] | Emely Gabriel, | Coronary artery | | 2018 | Encounter | MED CTR XRAY [address] | BICYCLE COURIER [address] | disease involving | | | | [place] | [place], [place] | [place] coronary | | | | [place] [address] | [address] | artery of [place] | | | | [phone] | | heart without angina | | [...] Bird; | | | | | | director long term care current | | | | | | [...] (Primary Dx); | | | | | [place] [address] | Pacemaker Dual | | | | | [phone] | Chamber, MRI | | | | | | compatible, 05/14/17 | | | | | | [facility] [place]; | | | | | | 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
--- OUTSIDE RECORDS SUMMARY | ~2020-04-29 | XMS | Encounter Summary ---
Demographics + + + | Address | [address] | | | [place] [address] | + + + | Home Phone [...] Team Providers + +------+ + | Care Can Bander Operator Name | Role | Phone | [...] Provider Unknown | | | | | [place], [place] | | | | | | [address] | (Fax) | | | | | [...] 2020 | Monitor | | MD [address] [facility] | Interrogation | | | | | [place], | (Primary Dx); | | | | | [place] [address] | Pacemaker Dual | | | | | [phone] | Chamber, MRI | | | | [...] [place] | | | | | | [id number] | | | | | | | | +--------+ + + + + documented as of this encounter Visit Diagnoses Not on filedocumented in this encounter"
--- OUTSIDE RECORDS SUMMARY | ~2020-04-29 | XMS | Encounter Summary ---
Demographics + + + | Address | [address] | | | [place] [address] | + + + | Home Phone [...] Team Providers + +------+ + | Care Operational Intelligence Analyst Name | Role | Phone | [...] | 12/17/ | Telephone | [facility] | Cruzito Bird, | Lab Order (Pt due | | 2019 | | CARDIOLOGY [address] | MD [address] [place] | for labs prior to | | | | [place], | [place], | appt ) | | | | [place] [address] | [place] [address] | | | | | [phone] | [phone] | | | | | | | [...] AND W ILL DO LAB WORK AT [facility]. elephone Encounter - Genesis Horne RN - 12/17/2018 11:22 AM P Bhanu placed. elephone Encounter - Trinidad Musa, Forestry Biology Specialist - 12/17/2018 11:15 AM Ra kinsey voicemail [...] Dx); | | | | | [place] [address] | Pacemaker Dual | | | | | [phone] | Chamber, MRI | | | | [...] | | | | | | [place] | | | | | | [address] | | | | | | | [...] involving | | | | | | nenana coronary | | | | | | artery of [place]en[place] | | | | | | heart [...] involving | | | | | | [place]en[place] coronary | | | | | | artery of [place]enana | | | | | | heart [...] involving | | | | | | [place]en[place] coronary | | | | | | artery of [place] | | | | | | heart [...] + + | Coronary artery disease involving [place] coronary artery of [place] heart without | | angina pectoris | [...]
--- OUTSIDE RECORDS SUMMARY | ~2020-04-29 | XMS | Encounter Summary ---
Demographics + + + | Address | [address] | | | [place] [address] | + + + | Home Phone | | + + + | Preferred Language | Unknown | + + + | Marital Status | | + + + | Restorationist Affiliation | 1061 | + + + | Race | Unknown | + + + | Ethnic Group | Unknown | + + + Author + + + | Author | [facility] | | | and [place] | + + + | Organization | [facility] | | [...] Team Providers + +------+ + | Care Wrapper And Preserver Name | Role | Phone | + [...] Monitor | CARDIOLOGY [address] | [address] [place] | Interrogation | | | | [place], | [place], | (Primary Dx); | | | | [place] [address] | [place] [address] | Pacemaker Dual | | | | [phone] | Chamber, MRI | | | | [...] Paceart documentation and remote PDF scanned into [employer] for remote interrogation results. Data collected by [...] Dx); | | | | | [place] [address] | Pacemaker Dual | | | | | [phone] | Chamber, MRI | | | | [...] [place] | | | | | | [address] | | | | | | | [...] | | | remote PDF scanned into [employer] for remote interrogation results. Data | | [...]
--- OUTSIDE RECORDS SUMMARY | ~2020-04-29 | XMS | Encounter Summary ---
Demographics + + + | Address | [address] | | | [place] [address] | + + + | Home Phone | | + + + | Preferred Language | Unknown | + + + | Marital Status | | + + + | Latter Day Affiliation | 1061 | + + + | Race | Unknown | + + + | Ethnic Group | Unknown | + + + Author + + + | Author | [facility] | | | and [place] | + + + | Organization | [facility] | | | [...] Team Providers + +------+ + | Care Sleep Manager Name | Role | Phone | + +------+ + | Ferdinand Goldberg | PCP | | | MD | | | + +------+ + Reason for Visit + + + | Reason | Comments | + + + | Coagulation Disorder | Directed to ED from [facility] with INR 13.0. Pt. bleeding from | [...] | | Epistaxis | | [address] | | | | | Essential | | [place], | | | | | hypertension | | [place] | | | | | Pulmonary | | [address] | | | | | HTN (HCC) | | Phone: | | | | | Chronic | | [phone] | | | | | diastolic | | Fax: | | | | | congestive | | [phone] | | | | | heart | [...] + + | 04/01/ | Hospital | [facility] | Jose, | Excessive | | 2015 - | Encounter | MED CTR ICU [address] | Tristan Truong MD [address] | anticoagulation | | | | [address], | [address] [place] | (Primary Dx); | | 04/04/ | | [place] [address] | [place] [address] | Epistaxis; H/O | | 2014 | | [phone] | [phone] | aortic valve | | | | | | replacement; | | | | | Jorge Phelps MD | Essential | | | | | [address] | hypertension; | | | | | [place], [place] | Dementia, without | | | | | [address] | behavioral | | | | | [...] might be different fro m the original. [place] DISCHARGE SUMMARY Pt. Name/Age/: Jacklyn Siddiqi [...] (Coumadin) yet, you need daily Protimes at [facility] in [facility] starting Saturday and be sure the [place] [facility] calls you every day with [...] will drift down. I suspect dietary changes ESL INSTRUCTOR contributed to over-anticoag. 15th still high with [...] but NOT restart ACEI Anemia Came into [facility] with INR above 10 with epistaxis and skin bleeding ESL INSTRUCTOR 15 accepta le H/O aortic valve replacement and single vessel CAD at [facility] October [address] [facility] AVR at [facility] and had CABG to 80-90% LAD October 2004 Hx of endocarditis Echo done CAD (coronary artery disease) CABG to LAD at time of AVR (for critical ) [facility] Oct 2014, cath then single vessel [...] Lasix gently albeit at lower dose then ESL INSTRUCTOR Dementia Son says Aricept no benefit Liver cirrhosis Ex ETOH use, prior CT at [facility] Pulmonary HTN Diastolic CHF Normal Cortrosyn [...] Plan Home today Need to talk to [place] about followup NOT restart ACEI nor Beta Birdie NOT YET restart Coumadin Needs home medicine management Needs frequent INR outpatient regarding coumadin Addendum on I had nice phone call with Dr Goldberg about patient including the tachy b rady, coumadin still on hold with high INR, dementia, patient driving at excessive speed, [facility] health for home med management, needing daily INR starting tomorrow and the Couma din clinic needs to contact him to ensure compliance, being borderline for needing pacemaker , having acute renal insuff when coming in [place] home off beta birdie and off ACEI and NOT to restart Coumadin until [place] Cou[facility] clin[place] c says OK and to follow daily INR [facility] [place] I see he is on Fenofibrate which can effect his INR, possibly the [facility] would consider alterna tive agent since fenofibrate has no cardiovascular benefit. From Addendum at 1255 have EKG from [facility] from [address] seg changes are OLD. Since this is NOT a [facility] EKG I did put it into the [...] improved Eat Healthy Diet Daily protime at [facility] in [place] (Dr Goldberg will authorize) starting tomorrow (Saturday) and the [place] [facility] [facility] should call you each day with results and will tell you if and when to restart warfarin Lisinopril and metoprolol have been stopped We are arranging Home Health too Greater than 30 minutes were spent on discharge and coordination of post-hospital care. Electronically signed by: Jorge Phelps MD, 04/04/2015 8:47 [facility] Portions of this chart may have been created with Touch of Classic voice recognition software. Occasi onal wrong-word or sound-alike substitutions may have occurred due to the inherent carter itations of voice recognition software. Please read the chart carefully and recognize, using context, where these substitutions have occurred documented in this encounter Discharge Instructions Instructions Jorge Phelps MD - 04/04/2015Eat Healthy Diet Daily protime at [facility] in [place] (Dr Goldberg will authorize) starting tomorrow (Saturday) and the [place] [facility] [facility] should call you each day [...] | | | | | | | [place] starting | | | | | | | Saturday and | | | | | | | be sure the [place] | | | | | | | [...] as of this encounter Progress Notes Sanam Paec RN - 04/04/2015 11:16 AM PDTPatient given discharge instructions with verb alized understanding. Patient assisted to car via W/C in medically stable condition. All q uestions answered. Jorge Ramirez MD - 04/04/2015 7:20 AM PDT [place] PROGRESS NOTE Patient: Jacklyn Siddiqi : 1935: Age: 79 y.o. MedRec: [id number] PCP: Ferdinand Goldberg Admission date: 04/01/2015 Hospital [...] 147 No results for input(s): PHART, PO2ART, TNX9ALS, KID5TBT, BEART, D4OYZRXC in the last 168 h ours. No results for input(s): SPECSOURCE, PHPOCB, HCO3, TCO2, BEART, BE, DTBY7KBT in the last 16 8 hours. Invalid input(s): DGWTH6TC, SWDI6XC Point of care glucose: No results for [...] will drift down. I suspect dietary changes ESL INSTRUCTOR contributed to over-anticoag. 15th still high with [...] but NOT restart ACEI Anemia Came into [facility] with INR above 10 with epistaxis and skin bleeding ESL INSTRUCTOR accepta le H/O aortic valve replacement and single vessel CAD at [facility] October [address] [facility] [facility] and had CABG to 80-90% LAD October 2004 Hx of endocarditis Echo done CAD (coronary artery disease) CABG to LAD at time of AVR (for critical ) [facility] Oct 2014, cath then single vessel [...] Lasix gently albeit at lower dose then ESL INSTRUCTOR Dementia Son says Aricept no benefit Liver cirrhosis Ex ETOH use, prior CT at [facility] Pulmonary HTN Diastolic CHF Normal Cortrosyn [...] Goldberg about patient including the tachy b marcai, coumadin still on hold with high INR, dementia, patient driving at excessive speed, [facility] health for home med management, needing daily INR starting tomorrow and the [facility] clinic needs to contact him to ensure compliance, being borderline for needing pacemaker , having acute renal insuff when coming in [place] home off beta birdie and off ACEI and NOT to restart [facility]madin until [facility] and to follow daily INR [facility] [place] I see he is on Fenofibrate which can effect his INR, possibly the [facility] would consider alterna tive agent since fenofibrate has no cardiovascular benefit. From Addendum at 1255 have EKG from [facility] from [address] seg changes are OLD. Since this is NOT a [facility] EKG I did put it into the Media Tab to allow comparison. I will contact Dr Aguilera about the bradycardia but I suspect the issue will be NOT using the Beta Birdie. Patient d id tell me that typically at home his pulse rate would be 52-53. Jorge Phelps MD 04/04/2015 7:20 [facility] Portions of this chart may have been created with Touch of Classic voice recognition software. Occasi onal wrong-word or [...] lungs clear to ascultation. Urinating without difficulty. Package Handler and hospitalist seen patient today. Susu Quiles Chris, Jorge Alejo MD - 04/03/2015 9:25 AM PDT [place] PROGRESS NOTE Patient: Jacklyn Siddiqi : 1935: Age: 79 y.o. MedRec: [id number] PCP: Ferdinand Goldberg Admission date: 04/01/2015 Hospital [...] 147 No results for input(s): PHART, PO2ART, NLK4IIO, JOP6FOR, BEART, N7QLJHTW in the last 168 h ours. No results for input(s): SPECSOURCE, PHPOCB, HCO3, TCO2, BEART, BE, ABHE0TWH in the last 16 8 hours. Invalid input(s): RETLU1FH, TQQE5JK Point of care glucose: No results for [...] will drift down. I suspect dietary changes ESL INSTRUCTOR contributed to over-anticoag. Acute renal failure (ARF) He says drinking OK and PVR zero Check U/S see result, no hydro, looks like medicorenal 13th improved, watch his K+ though as trending up 14th improved, did get 0.05 florinef yesterday and Lasix restarted yesterday Anemia Came into [facility] with INR above 10 with epistaxis and skin bleeding ESL INSTRUCTOR H/O aortic valve replacement and single vessel CAD at [facility] October [address] [facility] [address] at [facility] and had CABG to 80-90% LAD October 2004 Hx of endocarditis Echo done CAD (coronary artery disease) CABG to LAD at time of AVR (for critical ) [facility] Oct 2014, cath then single vessel [...] Lasix gently albeit at lower dose then ESL INSTRUCTOR Dementia Son says Aricept no benefit Liver cirrhosis Ex ETOH use, prior CT at [facility] Pulmonary HTN Diastolic CHF Normal Cortrosyn [...] From Addendum at 1255 have EKG from [facility] from [address] seg changes are OLD. Since this is NOT a [facility] EKG I did put it into the Media Tab to allow comparison. I will contact Dr Aguilera about the bradycardia but I suspect the issue will be NOT using the Beta Birdie. Patient d id tell me that typically at home his pulse rate would be 52-53. Jorge Phelps MD 04/03/2015 9:25 [facility] Portions of this chart may have been created with Touch of Classic voice recognition software. Occasi onal wrong-word or [...] Perez MD - 04/02/2015 8:43 AM PDT [facility] [place] PROGRESS NOTE Patient: Jacklyn Siddiqi : 1935: Age: 79 y.o. MedRec: [id number] PCP: Ferdinand Goldberg Admission date: 04/01/2015 Hospital [...] 147 No results for input(s): PHART, PO2ART, ZPQ2IOU, DKI9DCS, BEART, S9KNMVFP in the last 168 h ours. No results for input(s): SPECSOURCE, PHPOCB, HCO3, TCO2, BEART, BE, MWTB4GHG in the last 16 8 hours. Invalid input(s): DYUUY0ZT, RCCE2RH Point of care glucose: No results for [...] though as trending up Anemia Came into [facility] with INR above 10 with epistaxis and skin bleeding ESL INSTRUCTOR H/O aortic valve replacement and single vessel CAD at [facility] October [address] [facility] [address] at [facility] and had CABG to 80-90% LAD October 2004 Hx of endocarditis Echo done CAD (coronary artery disease) CABG to LAD at time of AVR (for critical ) [facility] Oct 2014, cath then single vessel disea se Hypertension I did lower his metoprolol due to hang on on Lisinopril remains off but need to resta rt Lasix gently albeit at lower dose then ESL INSTRUCTOR Dementia Son says Aricept no benefit Liver cirrhosis Ex ETOH use, prior CT at [facility] Pulmonary HTN Diastolic CHF DVT Prophylaxis [...] and SBP is above 90. I contacted [place] for comparison EKG as here he has [...] pending. Addendum at 1255 have EKG from [facility] from [address] seg changes are OLD. Since this is NOT a [facility] EKG I did put it into the Media Tab to allow comparison. I will contact Dr Aguilera about the bradycardia but I suspect the issue will be NOT using the Beta Birdie. Patient d id tell me that typically at home his pulse rate would be 52-53. Jorge Phelps MD 04/02/2015 8:43 [facility] Portions of this chart may have been created with Touch of Classic voice recognition software. Occasi onal wrong-word or [...] Sanam Mello RN - 04/01/2015 2:20 PM [id number]- Patient arrives fr om ED with FFP [...] might be different fro m the original. [place] HISTORY & PHYSICAL Patient: Jacklyn Siddiqi : 1935: Age: 79 y.o. MedRec: [id number] PCP: Ferdinand Goldberg Admission date: 04/01/2015 Hospital [...] had high INR at [facility] [place] yesterday but not reachable until today and told to go to ER so drove 90 [address] to get here (pulled over by special police officer not ticket) into ER with high [...] insure if CABG says leon at [facility] Hearing aid in repair, dentures in [...] scan [address] [facility] Endocarditis 2009 Enterococcus 6 weeks Amp [...] CKTOTAL No results for input(s): PHART, PO2ART, JBS0NOP, ILI2LOX, BEART, B9LSRSTN in the last 168 h ours. No results for input(s): SPECSOURCE, PHPOCB, HCO3, TCO2, BEART, BE, XWOF6OTS in the last 16 8 hours. Invalid input(s): WYRJO8NF, CRHE3LW (dot meylab) Xray Results: No results found. [...] aortic valve replacement Oct [address] [facility] for critical [facility] Rupert AVR at [facility] Hx of endocarditis Hypertension Dementia Son says Aricept no benefit Liver cirrhosis Ex ETOH use, prior CT at [facility] CAD (coronary artery disease) Patient says had stents, [place] says CABG, and [facility] did cardiac cath with single vessel disea se to LAD 80-90% and [facility] says did CABG October 2004 Pulmonary [...] Echo (compared to prior repor t from [place] he is NOT worse per my comparison of reports) CMS Documentation I expect this patient will be hospitalized for greater than 2-midnights and expect the post -hospital plan to be discharge to home or to an adult foster home. Electronically signed by: Jorge Phelps MD 04/01/2015 13:56 [facility] Note updated on after getting [facility] Care Everywhere review done Portions of this chart may have been created with Touch of Classic voice recognition software. Occasi onal wrong-word or [...] in approximately 2005.. He was admitted to [facility] on 04/01/2015 for Over-anticoagulated. He was in [...] not clear. It was started at the [facility]. However, he has had episodes of supraventricular [...] [facility] Hypertension Liver cirrhosis (HCC) CVA (cerebral infarction) ([facility]) -2014 lacunar (not stated as new nor old) Dementia Alcoholic cirrhosis (HCC) 2003 CT scan [address] [facility] Endocarditis 2009 Enterococcus 6 weeks Amp + Gent PSA elevation 2008 Pt declined Bx then Peripheral vertigo 2012 BPPV left Venous ulcer ([facility]) 2013 Leg Retinal detachment 2010 CAD (coronary artery disease) 2004 Had CABG to LAD (for 80-90% LAD) surgery done at [facility] Pulmonary HTN (HCC) Severe on Echo 2014 Diastolic CHF (HCC) Echo 2014 EF 68, ascites, pulm HTN Over-anticoagulated 04/01/2015 PAST SURGICAL HISTORY Past Surgical History Procedure Laterality Date Cardiac surgery 2005 [place] says CABG and [facility] FAMILY HISTORY Family History Problem Relation Age of Onset Heart disease Father SOCIAL HISTORY He lives independently in a house with his dog. He maintains the home. His veterans benef its stem from service from 2204-5006, the [place] War era. He does not use tobacco. [...] this chart may have been created with Touch of Classic voice recognition software. Occasi onal wrong-word or sound-alike substitutions may have occurred due to the inherent carter itations of voice recognition software. Please read the chart carefully and recognize, using context, where these substitutions have occurred. documented in this encounter ED Notes Tristan Garcia MD - 04/01/2015 1:18 PM PDTFormatting of this note might be differe nt from the original. [facility] Jacklyn Siddiqi Emergency Department Encounter Note [address] [place] [id number] PCP:Ferdinand Goldberg [phone] CHIEF COMPLAINT: Chief Complaint Patient presents with Coagulation Disorder Directed to ED from [facility] with INR 13.0. Pt. bleeding from multiple skin tears. ED Room: ED02/ED02 HPI Jacklyn Siddiqi is a 79 y.o. male who presents to the Emergency Department for evaluation. The patient was sent from the [place] when he was found to have an [...] (HCC) 2004 CT scan [address] [facility] Endocarditis 2009 Enterococcus 6 weeks Amp + Gent PSA elevation 2008 Pt declined Bx then Peripheral vertigo 2012 BPPV left Venous ulcer (HCC) 2013 Leg Retinal detachment 2010 CAD (coronary artery disease) [place] says had CABG with his AVR Pulmonary HTN (HCC) Severe on Echo 2014 Diastolic CHF (HCC) Echo 2014 EF 68, ascites, pulm HTN Over-anticoagulated 04/01/2015 Past Surgical History Procedure Laterality Date Cardiac surgery 2005 [place] says CABG and [facility] AV[facility] CURRENT [...] Clear Clear PH UA 5.5 5.0-8.0 Specific [place] 1.010 1.001-1.030 PROTEIN UA Negative Negative BLOOD [...] Code Fresh Frozen Plasma Thawed UNIT # [id number] UNIT ABO AB UNIT RH NEG Unit Status Crossmatched PRODUCT: PLASMA, FROZEN <24 Result Value Ref Range Product Code Fresh Frozen Plasma Thawed UNIT # [id number] UNIT ABO AB UNIT RH NEG Unit Status Crossmatched ED COURSE & MEDICAL DECISION MAKING Pertinent Labs & Imaging studies were reviewed along with EMS notes and residential record s if applicable. (See chart for [...] Notes Plan of Care - Ana Dietrich, Station Mechanic-Clinical - 04/04/2015 11:56 AM PDTDischarge plans cont: Per request of Hospitalist, pertinent medical records including H&P, Dr. Aguilera consult, D/C summary, and labs faxed to [facility] at f# [phone] with call to Padmini confirming th is fax. Confirmation placed in ghost chart. T/C to [facility] regarding a referral order for this [...] his own again. T/C to Chris at p#[phone], and he confirmed that he would be [...] do this. Spoke with Padmini at the [facility] about possibly getting this patient on the Home Based Progr am per K[facility]'s [facility] that the [facility] received [facility]. Padmini stated that she would be in the notes regarding this request to his PCP, Dr. Goldberg, where this will need to be started. Also, spoke with Janna, at the [facility] Coumadin clinic, and she requested that this CM send th e discharge summary and latest INR to her attn to f# [phone]. This was done and confirm ation placed in ghost chart. Janna stated that patient's MUSIC PROMOTER is Hellen Alla at the [facility] Coumadin clinic. Patient's son, Jacklyn, transported patient home today to [place], [place].Electronically johnny d by: Ana Dietrich, AUDIO PRODUCTION INSTRUCTOR 04/04/2015 12:14 lan of Care - Mary [...] this time. Left EF 65-70%. lan of [facility] - Mary Fiore RN - 04/03/2015 10:05 PM PDTProblem: General Plan of Care (Adult, Obstetrics ) Goal: Individualization/Patient-Specific Goal (Adult, Obstetrics) Pt. Is independent at home. Pt likes to have warm blankets when going to sleep at night. Pt likes skim milk with every meal. Outcome: Progressing lan of [facility] - Mary Morataya RN - 04/03/2015 10:05 PM PDTProblem: Heart Failure (Adult, Obstetrics) Goal: Prevent/Manage Potential Problems (Heart Failure (Adult, Obstetrics)) Outcome: Signs and symptoms of listed potential problems will be absent or manageable (refe rence CPG) Outcome: Progressing lan of [facility] - Susu Tam RN - 04/03/2015 6:10 [...] Left EF 65-70%. Susu Quiles lan of [facility] Ashley Marques RN - 04/03/2015 10:08 AM PDTProblem: General Plan of Care (Adult, Obstetrics) Goal: Care Plan Shift Summary & Review . Discharge planning; Reviewed Ana's 04/01 notes. Discussed case with Dr. Phelps. Dr. Phelps is planning on discharging Mr. Siddiqi on Saturday, 04/04. He would like him to have increased [place] s upport. He needs closer med management.. Faxed update to [facility] and requested to evaluate his eligibility for Home Based Primary Care or increased Home Health visits. His daughter (SAMEER sommer om [place]) was managing his meds, but his med changes happen frequently and he needs more oversight than she can provide long distance. Ana to follow up with [facility] on 04/04/15. Karyn Marques RNclient retention specialist lan of Care - Ayah Puentes RN [...] (refe rence CPG) Outcome: Progressing lan of [facility] Sanam Spencer RN - 04/01/2015 5:59 PM [...] VSS lan of Care - Ana Dietrich, Station Mechanic-Clinical - 04/01/2015 5:41 PM PDTProblem: General Plan of Care (Adul t, Obstetrics) Goal: Care Plan Shift Summary & Review . Discharge plans: Met with patient in his room. He was talkative but at times stopped in the middle of the sentence trying to remember what to say. He states he is living in one of his son's homes in [place] while he is gone and he is ta dann care of his dog. He reports that the home is a single level home. He also uses a cane to walk since his legs have been giving him some pain issues. He still drives and actually was driving here to go see his MD, Dr. Goldberg at the [place], whe rina they called and had him go straight to the ED here at the hospital, due to his high INR va lues. He confirmed he is a and gets his meds thru mail order from the [facility] and he can us e [facility] [...] back home. He also stated that his cfivrere-mp-cyg is planning on coming in from [place] on Saturday an d will be staying there at the house for about 2-3 weeks, which was confirmed with his daugh Cassandra pinedo, when this CM called her. T/C made to Cassandra Guthrie p# [phone], and left a message to return call. [...] with the [facility] [place] and they have helped him by paying [...] CM to follow.Electronically signed by: Ana Dietrich, AUDIO PRODUCTION INSTRUCTOR 04/01/2015 17:40 D Triage Notes - Dion [...] Dx); | | | | | [place] [id number] | Pacemaker Dual | | | | | [phone] | Chamber, MRI | | | | [...] [place] | | | | | | [address] | | | | | | | [...] [address] | [place] | [phone] | | [facility] | | [address] | | | - LABORATORY | | [...] [address] | [place] | [phone] | | [facility] | | [address] | | | - LABORATORY | | [...] [address] | [place] | [phone] | | [facility] | | [address] | | | - LABORATORY | | [...] not | 51 (L)Comment: | >=60 | [facility] | | | | GLOMERULAR [facility]TR[facility] | mL/min/1.73m2 | [facility] | | | PANAMANIAN | RATE,ESTIMATED | | MEDICAL | | | | mL/min/1.39h7Exdl than | | CENTER - | | [...] + | [facility] | [address] | [place] | [phone] | | [facility] | | [address] | | | - LABORATORY | | [...] [address] | [place] | [phone] | | [facility] | | [address] | | | - LABORATORY | | [...] [address] | [place] | [phone] | | [facility] | | [address] | | | - LABORATORY | | [...] | | BASE | | ug/dL | [place] | | | | | [...] [address] | [place] | [phone] | | [facility] | | [address] | | | - LABORATORY | | [...] + | [facility] | [address] | [place] | [phone] | | [facility] | | [address] | | | - LABORATORY | | [...] [address] | [place] | [phone] | | [facility] | | [address] | | | - LABORATORY | | [...] 1.83 (H) | 0.60 - 1.30 | [facility] | | | | | mg/dL | [facility] | | | | | | MEDICAL | | | | | | CENTER - | | | | | | LABORATORY | | + + + + + + | eGFR if not | 36 (L)Comment: | >=60 | [facility] | | | | GLOMERULAR [facility]TR[facility] | mL/min/1.73m2 | [facility] | | | PANAMANIAN | RATE,ESTIMATED | | MEDICAL | | | | mL/min/1.54x2Ktnq than | | CENTER - | | [...] 8.7 | 8.3 - 10.5 | [facility] | | | | | mg/dL | [facility] | | | | | | MEDICAL | | | | | | CENTER - | | | | | | LABORATORY | | + + + + + + | Albumin | 3.1 (L) | 3.2 - 5.0 g/dL | [facility] | | | | | | [facility] | | | | | | [...] [address] | [place] | [phone] | | [facility] | | [address] | | | - LABORATORY | | [...] | AM | | ug/dl | [facility] | | | | | | [...] [address] | [place] | [phone] | | [facility] | | [address] | | | - LABORATORY | | [...] + + | eGFR if not | 32 (L)Comment: | >=60 | [facility] | | | | GLOMERULAR FILTRATION | mL/min/1.73m2 | [facility] | | | PANAMANIAN | RATE,ESTIMATED | | MEDICAL | | | | mL/min/1.02d0Enil than | | CENTER - | | [...] [address] | [place] | [phone] | | [facility] | | [address] | | | - LABORATORY | | | | + + + + + Giselime INR (04/02/2015 3:56 PM PDT) + + [...] + | [facility] | [address] | [place], [place] | [phone] | | [facility] | | [address] | | | - LABORATORY | | [...] + + + | UNIT # | [id number] | | [facility] | | | | [...] | Unit Status | Transfused | | [facility] | | | | [...] [address] | [place] | | | [facility] | | [address] | | | - BLOOD BANK | [...] + + + | UNIT # | [id number] | | [facility] | | | | [...] St | [place] | | | [facility] | | [address] | | | - BLOOD BANK | [...] [facility] | | | | | | [facility] | | | | | | CENTER [...] [address] | [place] | [phone] | | [facility] | | [address] | | | - LABORATORY | | [...] [address] | [place] | [phone] | | [facility] | | [address] | | | - LABORATORY | | [...] | | | | | | [employer] | | | | | [...] [address] | [place] | [phone] | | [facility] | | [address] | | | - LABORATORY | | [...] + | [facility] | [address] | [place] | [phone] | | [facility] | | [address] | | | - LABORATORY | | [...] [address] | [place] | [phone] | | [facility] | | [address] | | | - LABORATORY | | [...] 1.80 (H) | 0.60 - 1.30 | [facility] | | | | | mg/dL | [facility] | | | | | | MEDICAL | | | | | | CENTER - | | | | | | LABORATORY | | + + + + + + | eGFR if not | 36 (L)Comment: | >=60 | [facility] | | | | GLOMERULAR FILTRATION | mL/min/1.73m2 | [facility] | | | PANA[place]IAN | RATE,ESTIMATED | | MEDICAL | | | | mL/min/1.51g4Kyiy than | | CENTER - | | [...] 3.7 | 2.5 - 4.6 mg/dL | [facility] [...] [address] | [place] | [phone] | | [facility] | | [address] | | | - LABORATORY | | [...] | | | + +---------+ + + Giselime INR (04/01/2015 3:39 PM PDT) + + [...] [address] | [place] | [phone] | | [facility] | | [address] | | | - LABORATORY | | | | + + + + + ECHO Complete (04/01/2015 3:36 PM PDT) + + | Specimen | + + | | + + + + + | Narrative | Performed At | + + + | [facility] ECHOCARDIOGRAM REPORT | | | STUDY DATE: 04/01/2015 PATIENT NAME: Jacklyn Siddiqi : | | | 1935 PCP: Fedrinand Goldberg MD | | | CLINICAL HISTORY/DIAGNOSIS: [...] | | | by: Cruzito Bird MD [facility] 04/01/2015 15:47 | | | Night Order Selector: Jp Jaquez, CONCHACS, RVT, RDMS | | [...] [address] | [place] | [phone] | | [facility] | | [address] | | | - LABORATORY | | [...] | | | Urine, | | | [facility] | | [...] into the clinical context for interpretation. | [facility] | | | - LABORATORY | + + + + + + + + | Performing | Address | City/State/Zipcode | Phone Number | | Organization | | | | + + + + + | [facility] | [address] | [place] | [phone] | | [facility] | | [address] | | | - LABORATORY | | [...] ST. | [address] | [place], [place] | [phone] | | [facility] | | [address] | | | - LABORATORY | | [...] St | [place] | | | [facility] | | [address] | | | - BLOOD BANK | [...] | Urine | | Yellow | [facility] | | | | [...] - 1.030 | [facility] | | | [place], | | | [facility] | | [...] Urine | Urine Culture Not | | [facility] | | | Comment | Indicated | [...] [address] | [place] | [phone] | | [facility] | | [address] | | | - LABORATORY | | [...] + | [facility] | [address] | [place] | [phone] | | [facility] | | [address] | | | - LABORATORY | | [...] + | [facility] | [address] | [place], [place] | [phone] | | [facility] | | [address] | | | - LABORATORY | | [...] + | [facility] | [address] | [place] | [phone] | | [facility] | | [address] | | | - LABORATORY | | [...] + + | eGFR if not | 28 (L)Comment: | >=60 | [facility] | | | | GLOMERULAR FILTRATION | mL/min/1.73m2 | [facility] | | | PANAMANIAN | RATE,ESTIMATED | | MEDICAL | | | | mL/min/1.44t7Adku than | | CENTER - | | [...] | | ine Ratio | | | [facility] | | | [...] [facility]EL[facility]. | [address] | [place] | [phone] | | [facility] | | [address] | | | - LABORATORY | | [...] [address] | [place] | [phone] | | [facility] | | [address] | | | - LABORATORY | | [...] | ---- 04/01/2015 | | | 09:27 [facility] | | | VISIT COUNT (1 YR.) Visits Medicaid NE Dx Location | | | ------ --------- 1 0 | | | [facility] 1 0 | | | [facility] 2 0 | | | Total Note: Visits indicate total known visits. | | | Medicaid NE Dx are the number of primary diagnoses on the [facility] | | | non-emergent dx list. | | | | | | --- [facility] has no Care Guidelines for this patient. [facility] | | | Prescription Review PDMP Report (previous six months). Fill Date | | | Drug Description Qty. Prescriber | | | CS MED --------- | | | ---- -- | | | --- 2015-03-24 HYDROCODON-ACETAMINOPHEN 5-325 112 | | | FERDINAND MARIA ESTHERY 2 0.0 2015-02-24 | | | HYDROCODON-ACETAMINOPHEN 5-325 112 FERD[place] PARNICKY | | | 2 0.0 2015-01-26 HYDROCODON-ACETAMINOPHEN 5-325 | | | 112 F[place] PARNICKY 2 0.0 2014-12-29 | | | HYDROCODON-ACETAMINOPHEN 5-325 112 FERD[place] PARNICKY | | | 2 0.0 2014-12-01 HYDROCODON-ACETAMINOPHEN 5-325 | | | 112 F[place] LYLENICKY 2 0.0 12 Month | | | Prescription Summary -Number of CS Rx:5 -Number of CS-II Rx:5 | | | -Total dispensed quantity:560 -Unique Prescribers:1 | | | -Unique Pharmacies:1 -Opioid Rx Count:0 -Long Acting Opioid | | | Rx Count:0 -Benzo Rx Count:0 | | + + + + +---------+ + + | Performing | Address | City/State/[facility] | Phone Number | | [...] of unspecified type of vessel, | | [place] or graft | + + | Diastolic [...]
--- OUTSIDE RECORDS SUMMARY | ~2020-04-29 | XMS | Encounter Summary ---
Demographics + + + | Address | [address] | | | [place] [address] | + + + | Home Phone | | + + + | Preferred Language | Unknown | + + + | Marital Status | | + + + | Quaker Affiliation | 1061 | + + + | Race | Unknown | + + + | Ethnic Group | Unknown | + + + Author + + + | Author | [facility] | | | and [place] | + + + | Organization | [facility] | | [...] Team Providers + +------+ + | Care Educational Audiologist Name | Role | Phone | + [...] | | CARDIOLOGY [address] | | | | | [place], | [place], | | | | | [place] [address] | [place] [address] | | | | | [phone] | [phone] | | | | | | | [...] | Monitor | | MD [address] | Interrogation | | | | | [place], | (Primary Dx); | | | | | [place] [address] | Pacemaker Dual | | | | | [phone] | Chamber, MRI | | | | [...] [place] | | | | | | [address] | | | | | | | | +--------+ + + + + documented as of this encounter Visit Diagnoses Not on filedocumented in this encounter"
--- OUTSIDE RECORDS SUMMARY | ~2020-04-29 | XMS | Encounter Summary ---
Demographics + + + | Address | [address] | | | [place] [address] | + + + | Home Phone | | + + + | Preferred Language | Unknown | + + + | Marital Status | | + + + | Mandaeism Affiliation | 1061 | + + + | Race | Unknown | + + + | Ethnic Group | Unknown | + + + Author + + + | Author | [facility] | | | and [place] | + + + | Organization | [facility] | | | [...] Team Providers + +------+ + | Care Prison Guard Supervisor Name | Role | Phone | [...] persistent | MD Paco | [address] | | | | | atrial | [address] [place] | | | | | fibrillation | [place] | [place], [place] | | | | | ([facility]) Sick | [address] [place] | [address] Phone: | | | | | sinus | [place] | [phone] | | | | | syndrome | [address] | Fax: | | | | | (HCC) | Phone: | [phone] | | | | | Chronic | [phone] | | | | | | diastolic | Fax: | | | | | | (congestive) | [phone] | | | | | | heart [...] + + | 01/05/ | Office | [facility] | Emely Gabriel, | Coronary artery | | 2020 | Visit | CARDIOLOGY [address] | [facility]ECT [facility] [address] | disease involving | | | | [place], | [place] | [place]ony river coronary | | | | [place] [address] | [address] | artery of [place] | | | | [phone] | | heart without angina | | | | | | pectoris (Primary | | | | | | Dx); Essential | | | | | | hypertension; | | | | | | Pulmonary HTN ([facility]); | | | | | | Chronic diastolic | | | | | | congestive heart | | | | | | failure ([facility]); | | | | | | Persistent atrial | | | | | | fibrillation (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); | | | | | | Status [...] encounter Patient Instructions Patient Instructions Herson Boone, Nuclear Chemistry Technician - 01/06/2020 12:45 PM PDT1. We will schedule you for a lung function test to check for amiodarone side effects at [facility]. 2. [facility] check [facility] the [place] recently. 3. Get a hold of the [facility] for about signing a paper to release information to [facility] so we can view it in our system. 4. He will follow up in 1 year for office visit and device interrogation, or sooner with yaw ocrtez. He will have an ECG at his [...] local public health website. 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 nystatin (MYCOSTATIN) 891070 UNIT/GM cream Apply 1 Units topically 3 [...] Lateral leads Confirmed by BASIA BIRD MD ([id number]) on 07/31/2018 4:48:20 PM Which is compared to today's ECG 01/06/2020: atrial-paced rhythm with prolonged AV conduct ion, left bundle branch block. QT/QTc 476/476 with a ventricular rate of 60 beats per minute . LAB RESULTS reviewed during visit today primarily from [facility]: LIPID Lab Results Component Value Date [...] scanned Paceart documentation and device PDF in Gig[employer] for interrogation (with programming changes) performed during [...] Symptoms with minimal exertion of t he [place] [employer] functional class, which is complicated [...] above. He does have remote monitoring with [facility]. 3. Paroxysmal atrial fibrillation with RVR/aberration conduction: [...] 73 Y.O.(2) and Vascular disease ( 1). [id number] is 4, which gives an estimated 4.0%risk [...] device check. 4. Coronary artery disease involving [place] coronary artery of [place] heart without angina pectoris: A. [facility] 11/14/2004 shows preserved left ventricular systolic function [...] mg. His warfarin is managed by the [place]. 7. Hyperlipidemia, mixed: A. Today, 01/06/2020, he [...] He wants to have this done at [facility]. Eye exam was done a t [place] in 11/2019 showed no changes. Called the [facility] to see if TSH was done with his other labs in October and they report that if it was done it would have been on the labs we received, a nd as we do not see this we will add labs to be done at [facility] when he has his INR done t [...] to check for amiodarone side effects at [facility]. 2. He will have TSH and T4 added to his INR that will be done at [facility] tomorrow to foll ow-up his amiodarone use. 3. Get a hold of the [place] for about signing a paper to release information to [employer] so we can view it in our system. 4. He will continue with his [employer] remote device monitoring. 5. He is recommend [...] done prior by another provider. Herson Breaux, Nuclear Chemistry Technician am acting as a scribe on behalf of, and in the presenc e of AMANDA Hurtado. - Herson Boone, Nuclear Chemistry Technician 01/06/2020 12:39 PM Emely Breaux ARNP, personally performed the services described in this documentation, as scribed in my presence and it is both accurate and complete. AMANDA Hurtado 0 Portions of this chart may have been created with [employer] voice recognition software. 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
--- OUTSIDE RECORDS SUMMARY | ~2020-04-29 | XMS | Encounter Summary ---
Demographics + + + | Address | [address] | | | [place] [address] | + + + | Home Phone [...] Team Providers + +------+ + | Care Diamond Saw Operator Name | Role | Phone | + +------+ + PCP | Unavailable | + +------+ + Encounter Details +--------+ + + + + | Date | Type | Department | Care Team | Description | +--------+ + + + + | 11/13/ | Hospital | [facility] | Conversion | | | 2004 - | Encounter | [facility] | Transaction, | | | | | CARE FLOOR 4 888 | Provider Unknown | | | 11/22/ | | LEIGHA LAM | [phone] | | | 2004 | | [place], [place] | | | | | | [address] | Antonio Payne | | | | | [phone] | MD [address] | | | | | | [address] | | | | | | [place] [address] | | | | | | [phone] | | | | | | | [...] Interrogation | | | | | [place], | (Primary Dx); | | | | | [place] [address] | Pacemaker Dual | | | | | [phone] | Chamber, MRI | | | | [...] [place] | | | | | | [address] | | | | | | | | +--------+ + + + + documented as of this encounter Visit Diagnoses Not on filedocumented in this encounter"
--- OUTSIDE RECORDS SUMMARY | ~2020-04-29 | XMS | Encounter Summary ---
Demographics + + + | Address | [address] | | | [place] [address] | + + + | Home Phone [...] Team Providers + +------+ + | Care Wool Hat Hydraulicker Name | Role | Phone | + [...] visit | CARDIOLOGY [address] | [address] | reprogramming/check | | | | [place], | 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
--- OUTSIDE RECORDS SUMMARY | ~2020-04-29 | XMS | Encounter Summary ---
Demographics + + + | Address | [address] | | | [place] [address] | + + + | Home Phone [...] Team Providers + +------+ + | Care Laboratory Tech Name | Role | Phone | [...] + + | 05/08/ | Surgery | [facility] | Peter Maciel MD | EGD with Anesthesia | | 2017 | | MED CTR [facility] INTRA OP | [address] | | | | | [address] | [place], [place] | | | | | [place], [place] | [address] | | | | | [address] | [phone] | | | | | [phone] | | | +--------+---------+ + + + [...] Physician Discharge Summary Patient ID: Jacklyn Siddiqi [id number] 81 y.o. 1935 Admit date: 05/07/2017 Discharge [...] so this was dis continued. The assistant professor of forestry recommended putting in a permanent pacemaker and [...] Psychiatric: Appropriate affect and mood Disposition: [facility] Patient Instructions: Discharge Medications New Medications [...] Care Everywhere.Pacemaker Impla ntation, Discharge Instructions for (Hungarian)documented in this encounter Medications at Time of [...] Philippe MD - 06/04/2017 8:18 PM PDT [facility] HOSPITALIST PROGRESS NOTE Patient: Jacklyn Siddiqi : 1935: Age: 81 y.o. MedRec: [id number] PCP: Antonio Paulino MD Admission date: 05/07/2017 [...] as outlined above. Yodit Philippe 06/04/2017 20:18 Located within [facility] Shawn Lewis, [facility] Cloth Printing Utility Worker - 05/16/2017 9:29 AM PDTFormatting of this [...] am: INR 4. Warfarin education received NO- precinct captain. 5. Pharmacist to follow daily Warfarin Dosing Nomogram Warfarin Dosing Expectations Per P&T-approved Electronically signed by: Shawn Mercedes, Network Development Coordinator 05/16/2017 9:29 Michael Giang MD - 05/16/2017 [...] is in a class IIo f [place] Heart [employer] functional class. There is mild [...] made to ensure accuracy; however, inadvertent computerized questioned documents examiner errors may be pre sent. Electronically signed by: Cruzito Bird MD 05/16/2017 7:18 Susan Diaz MD - 05/15/2017 7:43 PM PDT [facility] HOSPITALIST PROGRESS NOTE Patient: Jacklyn Siddiqi : 1935: Age: 81 y.o. MedRec: [id number] PCP: Antonio Paulino MD Admission date: 05/07/2017 [...] ou tlined above. Susan Vides 05/15/2017 19:43 Located within [facility] Jessica Rivas, PharmD - 05/15/2017 [...] am: INR 4. Warfarin education received NO- precinct captain. 5. Pharmacist to follow daily Warfarin [...] DOPamine Stopped (05/12/17 0745) norepinephrine Stopped (05/11/17 7131) OBJECTIVE: PHYSICAL EXAM Latest VS: BP 135/43 [...] Sinus rhythm Confirmed by FREDERICK CHARLTON, BINU ([id number]) on 05/15/2017 5:56:04 AM ECG 12 lead [...] Sinus rhythm Confirmed by BINU MACK MD ([id number]) on 05/15/2017 5:57:23 AM CBC no Differential [...] is in a class IIo f [place] Heart Association functional class. There is mild [...] made to ensure accuracy; however, inadvertent computerized questioned documents examiner errors may be pre sent. Electronically signed by: Cruzito Bird MD 05/15/2017 6:36 Susan Diaz MD - 05/14/2017 8:48 PM PDT [facility] HOSPITALIST PROGRESS NOTE Patient: Jacklyn Siddiqi : 1935: Age: 81 y.o. MedRec: [id number] PCP: Antonio Paulino MD Admission date: 05/07/2017 [...] ou tlined above. Susan Vides 05/14/2017 20:48 Located within [facility] Jessica Rivas, PharmD - 05/14/2017 4:08 PM PDT . WARFARIN PER PHARMACY PROTOCOL: Subjective/Objective: Jacklyn Sdidiqi is a 81 y.o. male admitted on [...] am: INR 4. Warfarin education received NO- precinct captain. 5. Pharmacist to follow daily Warfarin [...] DOPamine Stopped (05/12/17 0745) norepinephrine Stopped (05/11/17 0256) sodium chloride 0.9% 125 mL/hr at 05/14/17 [...] treatment were discussed with the patient in [facility]. The patient decides to proceed with the procedure. 2. Resume Coumadin after procedure today. 3. Start amiodarone oral loading today to treat A. fib with RVR. Portions of this report were transcribed using voice recognition software. Every effort wa s made to ensure accuracy; however, inadvertent computerized questioned documents examiner errors may be pre sent. Electronically signed by: Cruzito Bird MD 05/14/2017 6:25 row, Yodit Ramsay MD - 05/13/2017 7:23 AM PDTForm atting of this note might be different from the original. [facility] HOSPITALIST PROGRESS NOTE Patient: Jacklyn Siddiqi : 1935: Age: 81 y.o. MedRec: [id number] PCP: Antonio Paulino MD Admission date: 05/07/2017 [...] has lengthened Confirmed by FREDERICK CHARLTON, BINU ([id number]) on 05/13/2017 6:24:02 AM Culture, Blood Result [...] arthroplasty changes. Multiple lead wires overlie the adhla-mc-fngc. Overall unchanged aeration of the lungs with [...] and normally functioning prosthetic aortic valv e. CRUIZTO (obstructive sleep apnea) Patient was tested (positive) at the [facility], w as provided with CPAP, slept "all [...] awake and requires oxygen when a sleep. B-GERICARE AIDE 488 on arrival. Echo 02/2017 showed [...] Pulmonary HTN Mild to severe by echo [id number]. Never smoked tobacco and no documente d [...] associated falls, on e occurring at the [facility] the day of admission and one [...] as outlined above. Yodit Philippe 05/13/2017 7:23 Located within [facility] row, Yodit Ramsay MD - 0 05/12/2017 10:27 AM PDT [facility] HOSPITALIST PROGRESS NOTE Patient: Jacklyn Siddiqi : 1935: Age: 81 y.o. MedRec: [id number] PCP: Antonio Paulino MD Admission date: 05/07/2017 [...] arthroplasty changes. Multiple lead wires overlie the mqwzv-te-zbcv. Overall unchanged aeration of the lungs with [...] as outlined above. Yodit Philippe 05/12/2017 10:27 Located within [facility] row, Yodit Ramsay MD - 0 05/11/2017 2:21 PM PDT [facility] HOSPITALIST PROGRESS NOTE Patient: Jacklyn Siddiqi : 1935: Age: 81 y.o. MedRec: [id number] PCP: Antonio Paulino MD Admission date: 05/07/2017 [...] with rate 70-80 on dopamine 5 mcg/min. [place] systolic valve cli ck at [facility]. Respiratory: [...] arthroplasty changes. Multiple lead wires overlie the cafdn-fi-yvux. Overall unchanged aeration of the lungs with [...] as outlined above. Yodit Philippe 05/11/2017 14:21 Located within [facility] cConnell, Rob Zacarias N - 05/10/2017 7:34 [...] 05/10/2017 7:03 PM PDT HOSPITALIST progress NOTE [facility] Donita Duckworth 05/10/2017 Rounding Physician: Yodit Philippe MD Patient Name: Jacklyn Siddiqi : 1935 Medical Record: [id number] Primary Hospital Problem: Atrial fibrillation with RVR [...] made to ensure accuracy; however, inadvertent computerized questioned documents examiner errors and typos m ay be present Electronically signed by: Yodit Philippe MD, DATE/TIME: 05/10/2017 19:03 [facility] HOSPITALIST TEAM arTania walton RN - 05/10/2017 4:33 PM PDTReport to Whitney, Patient in bed resting. rradha, Yodit Ramsay MD - 05/10/2017 3:59 PM PDTForma tting of this note might be different from the original. [facility] HOSPITALIST PROGRESS NOTE Patient: Jacklyn Siddiqi : 1935: Age: 81 y.o. MedRec: [id number] PCP: Antonio Paulino MD Admission date: 05/07/2017 [...] Atrial fibrillation Confirmed by BINU MACK MD ([id number]) on 05/10/2017 5:50:22 AM No results found. [...] as outlined above. Yodit Philippe 05/10/2017 15:59 Located within [facility] Tania House RN - 05/10/2017 [...] to commode and one pers on assist. business administration teacher shows Sinus Tach with BBB. Patient on RA with sats 100%Electroni cece signed by Tania Cervantes RN at 05/10/2017 12:54 PM ELSYCrow, Yodit Ramsay MD - 05/09/2017 8:11 PM PDT [facility] HOSPITALIST PROGRESS NOTE Patient: Jacklyn Siddiqi : 1935: Age: 81 y.o. MedRec: [id number] PCP: Antonio Paulino MD Admission date: 05/07/2017 [...] as outlined above. Yodit Philippe 06/04/2017 20:12 Located within [facility] Nancy Perales RN - 0 05/09/2017 1:59 PM PDTEvaluated pt for PICC line, upon review of chart placed midline 4 fren ch in left cephalic. Pt Needing IV access for blood draw and occasional IVP medication.Barbara ctronically signed by Nancy Arechiga RN at 05/09/2017 2:01 PM PDTCrow, Yodit Ramsay MD - 05/08 8:15 PM PDT [facility] HOSPITALIST PROGRESS NOTE Patient: Jacklyn Siddiqi : 1935: Age: 81 y.o. MedRec: [id number] PCP: Antonio Paulino MD Admission date: 05/07/2017 [...] as outlined above. Yodit Philippe 06/04/2017 20:15 Located within [facility] Mary Vargas RN - 05/08/2017 [...] and RT notified. O2 2 L via GERICARE AIDE applied. O2 sat increased to 91%. [...] and direction x [facility] [place] Vaccines up to date? Yes No Unsure [...] performed and electronically signed by Isa Kaufman, Insulation Batting Machine Operator 16:14 Reviewed by: Dolly Rizzo, PharmD 05/07/2017 [...] Ramsay MD - 05/07/2017 2:14 PM PDT [facility] HISTORY AND PHYSICAL Pt. 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 [...] cirrhosis (HCC) 2003 CT scan 2003 at [facility] CAD (coronary artery disease) 2005 Had CABG to LAD (for 80-90% LAD) surgery done at [facility] CVA (cerebral infarction) -2014 lacunar (not stated as new nor old) Dementia Diastolic CHF (HCC) Echo 2013 EF 68, ascites, pulm HTN Endocarditis 2009 Enterococcus 6 weeks Amp + Gent H/O aortic valve replacement 2004 [place] Rupert AVR INR goal is 2-3, surgery done at [facility] Hypertension Liver cirrhosis (HCC) Over-anticoagulated [...] is not indicated. Code Status Full code. [facility] Documentation This patient is short of breath [...] obtained, the patient was taken to the worm farm laborer. 1 g of cefaz jamel was [...] pulled through into the pocket. A 6 Spanish sheath was p laced over the guidewire and the core was removed. The additional guidewires were inserted through the sheath. The sheath was then removed. The guidewires were secured by hemostat, leaving one guidewire to be utilized for placement of an 8 Spanish safe sheath. A safe sheat h core [...] same technique as mentioned above, another 8 Spanish safe sheath was utilized to i ntroduce [...] #: LPA 1200 M, serial #: [id number]. C. Ventricular lead: [place], length 52 cm, model #: LPA 1200M, serial #: [id number]. PACEMAKER TESTING: A. Atrial lead: Sensing 2.4 [...] obstructive sleep apnea. He was admitted to [facility] on 05/07/2017 for Atrial fibrillation with RVR [...] cirrhosis (HCC) 2003 CT scan 2003 at [facility] CAD (coronary artery disease) 2004 Had CABG to LAD (for 80-90% LAD) surgery done at [facility] CVA (cerebral infarction) -2014 lacunar (not stated as new nor old) Dementia Diastolic CHF (HCC) Echo 2014 EF 68, ascites, pulm HTN Endocarditis 2009 Enterococcus 6 weeks Amp + Gent H/O aortic valve replacement 2004 [place] Ru[place] AVR INR goal is 2-3, surgery done at [facility] Hypertension Liver cirrhosis (HCC) Over-anticoagulated [...] with Anesthesia; Surgeon: Peter Maciel MD; Location: [facility] MEDICAL PROCED [facility]RE UNIT FAMILY HISTORY [...] Oral Daily IV INFUSIONS: DOPamine Stopped (05/12/17 1245) norepinephrine Stopped (05/11/17 6265) ALLERGIES Allergies Allergen Reactions Latex Rash REVIEW [...] developed, well nourished, well groomed, no ac [place] distress Cardiovascular NYHA Class: II- Symptoms with [...] has lengthened Confirmed by FREDERICK CHARLTON, BINU ([id number]) on 05/13/2017 6:24:02 AM Culture, Blood Collection [...] is in a class II of [place] Heart [employer] functional class. There is fluid [...] patient. Electronically signed by: Cruzito Bird MD LOCATED WITHIN [facility] 05/13/2017 7:03 Portions of this chart may have been created with [employer] voice recognition software. Occasi onal wrong-word or [...] who is seen at the [facility] routinely, that has the [place] 2 [...] Pack RN CWON Inpatient Wound Care Ext [phone] docume nted in this encounter ED Notes [...] cirrhosis (HCC) 2003 CT scan 2004 at [facility] CAD (coronary artery disease) 2004 Had CABG to LAD (for 80-90% LAD) surgery done at [facility] CVA (cerebral infarction) -2014 lacunar (not stated as new nor old) Dementia Diastolic CHF (HCC) Echo 2014 EF 68, ascites, pulm HTN Endocarditis 2009 Enterococcus 6 weeks Amp + Gent H/O aortic valve replacement 2004 [facility] Rupert AVR INR goal is 2-3, surgery done at [facility] Hypertension Liver cirrhosis (HCC) Over-anticoagulated [...] UA, POC Negative Negative, 100 mg/dL Specific [place], UA, POC 1.025 1.001 - 1.030 Blood, [...] Kwok MD - 05/16/2017 2:20 PM PDT [facility] TRANSFER [facility]DERS Patient Name: Jacklyn Siddiqi Patient : 1935 Gender: male Date of Admission: 05/07/2017 Date of Discharge: 05/16/2017 Admitting Provider: Yodit Philippe MD Discharging Provider: Susan Vides MD Consultants: Dr Nettles PCP: Antonio Paulino [facility] transferring to: [facility] Provider after transfer: CODE STATUS: [x] Attempt CPR [] Do not resuscitate If patient is pulseless and not breathing, RN/SNAKE CHARMER may pronounce . Advanced Directives included: [] [...] Reactions Latex Rash Diet: [x] As tolerated PORT CAPTAIN may upgrade or downgrade diet as condition [...] Whole [] Thin Liquids [] Cut-up [] [place] Thick [] Advanced Chopped [] Honey Thickened [] Chopped [] Advanced Ground [] 1:1 feedings [] Ground/Pureed [] Other: Tube Feedings: [] PEG [] GT [] JT [] NGT [] Formula type: (Medical Office Assistant Instructor may change/substitute if indicated). [] Continuous Rate: [...] & Management for: restrict ed limb [] PORT CAPTAIN Evaluation &Management for: [] Other: Wound/Skin Care: [...] Orders/Instructions Physician's signature: Susan Jarvis MD05/16/2017 14:20 [facility] USE ONLY: [] Admitting [...] for assist for safety Bed-Chair, [place]: contact guard assist, set up required, verbal cues requir ed Chair-Bed, Level [place]: contact guard assist, set up required, verbal cues requir ed Vlt-Hdxce-Exf, Assistive Device: 2 wheeled walker (FWW) Sit-Stand, Level [place]: contact guard assist, verbal cues required Stand-Sit, Level [place]: contact guard assist, verbal cues required Ayf-Zgjcp-Ozq, Assistive Device: 2 wheeled walker (FWW) Safety Issues: weight-shifting ability decreased Impairments: pain, strength decreased Bed Mobility increased time and need for frequent redirection Assistive Device: bed rails Supine to Sit, [place]: contact guard assist Sit to Supine, Level [place]: (NT, pt left sitting in bedside chair) [...] STG Status continued at 05/16/2017 1155 STG [place] Level modified independent, supervised at 05/09/2017 1700 STG Assistive Device 2 wheeled walker (FWW) at 05/09/2017 1700 STG Distance (feet) 50 at 05/09/2017 1700 Electronically signed by: Velia Gerard, PT, 05/16/2017 11:59 lan of Ana Green i, RN - 05/16/2017 10:32 AM PDTProblem: Discharge Planning Goal: Patient will be discharged in a safe manner Outcome: Improving This CM spoke with Elkin at [facility] this AM and she is ready to accept patient when he is medically stable and will arrange transport there for patient. She confirmed yahaira t they also have OT there to do his leg wraps. Efaxed the MD prog notes, PT OT notes, and med list to her. TN# [id number]. Manually faxed the completed PASRR to SNF. Pkt started and placed in ghost chart. Electronically signed by: Ana Dietrich RN 05/16/2017 10:27 11:14 Left message with Elkin, at [facility], letting her know that patient will be d ischarged today and would be ready this afternoon sometime. Requested a return call with pic k up time. Elkin returned call with 1430 picker feeder time. Let bedside RN know. Left message with Jr Jacklyn, letting him know that his dad will be taken to the SNF today. Pkt completed with original completed PASRR, AVS, and Trazadone script. Given to concrete truck driver. Fa xed SNF transfer orders to [facility] with call to Elkin.Electronically signed [...] today. Kelly from [facility], p# [phone], faxed the paperwork to Jacklyn Kelly' email [...] afternoon and let him know that the [facility] would only be a short term rehab not mcfp stay and that he would have to pay for the transpor t there, since he is non-service connected, per [facility] [place], whom this CM called to confirm this above information. Jacklyn Joiner stated that his father will not go back to [facility], so reassured him yahaira t the telecommunications network planner at [facility] would help find a marine oil terminal superintendent place for him since he will need [...] and attending to task Bed-Chair, [place]: contact guard assist, set up required, verbal cues requir ed Chair-Bed, Level [place]: contact guard assist, set up required, verbal cues requir ed Kut-Hjybi-Mmi, Assistive Device: 2 wheeled walker (FWW) Sit-Stand, Level [place]: contact guard assist, verbal cues required Stand-Sit, Level [place]: contact guard assist, verbal cues required Kos-Qilun-Mmu, Assistive Device: 2 wheeled walker (FWW) Safety Issues: weight-shifting ability decreased Impairments: pain, strength decreased Bed Mobility increased time and need for frequent redirection Assistive Device: bed rails Supine to Sit, [place]: contact guard assist Sit to Supine, Level of [place]: (NT, pt left sitting in bedside chair) [...] STG Status continued at 05/15/2017 1315 STG [place] Level modified independent, supervised at 05/09/2017 1700 [...] forward to go to a rehab facil [facility] in the future. lan of Care - Maria Antonia Bullard, CLOTH BOIL OFF MACHINE OPERATOR - 05/15/2017 8:43 AM PDTProblem: Patient Care [...] ssistance with ambulation and transfers. lan of [facility] - Rob Dietrich RN - 05/14/2017 6:04 PM PDTProblem: Discharge Planning Goal: Patient will be discharged in a safe manner This CM met with patient per his request about his discharge plan. Let him know that [facility] has accepted him and he was aware [...] did not even know that his formerly [facility] er was in the hospital again. This CM was trying to get some help as to where patient was going to go after his rehab, si nme patient stated that his other son, Jacklyn Siddiqi Jr, is currently moving out all his belo ngings out of [facility] in [place], since he is too high level of [...] call the DC and see if the [facility] has any bed for him. Let patient know that this will have to be done in the AM since they are already closed today. CM will need to call the [facility] in AM to see if patient is eligible for transfer to the [facility].Electronically signed by: Ana Dietrich RN 05/14/2017 18:04 [...] treatment from his children Bed-Chair, [place]: contact guard assist, set up required, verbal cues requir ed Kej-Izrrm-Aga, Assistive Device: 2 wheeled walker (FWW) Sit-Stand, Level of [place]: contact guard assist, verbal cues required Stand-Sit, Level of [place]: contact guard assist, verbal cues required Cjg-Hjsek-Ckw, Assistive Device: 2 wheeled walker (FWW) Safety Issues: weight-shifting ability decreased Impairments: pain, strength decreased Bed Mobility increased time and need for frequent redirection Assistive Device: bed rails Supine to Sit, Level of [place]: contact guard assist Sit to Supine, Level of [place]: (NT, pt left sitting in bedside chair) [...] STG Status continued at 05/14/2017 1600 STG [place] Level modified independent, supervised at 05/09/2017 1700 [...] re questing to use commode. OT and AIRCRAFT PILOT assisted patient with functional t/f and limited [...] bed rails Supine to Sit, Level of [place]: contact guard assist Sit to Supine, Level of [place]: contact guard assist Transfers Sit-Stand, Level of [place]: stand by assist, contact guard assist Stand-Sit, Level of [place]: stand by assist, contact guard assist Wse-Cmxdr-Uxg, Assistive Device: 2 wheeled walker (FWW) Toilet, Level of [place]: contact guard assist, stand by assist Toilet, Assistive Device: 2 wheeled walker (FWW) Impairments: pain, strength decreased OT Goal Review Date Flowsheet Row Most Recent Value STG Review Date 05/16/17 at 05/09/2017 1604 LB Dressing Goal Flowsheet Row Most Recent Value STG Status new at 05/14/2017 1045 STG [place] Level modified independent at 05/14/2017 1045 Toilet Transfer Goal Flowsheet Row Most Recent Value STG Status new at 05/14/2017 1045 STG [place] Level supervised at 05/14/2017 1045 STG Assistive [...] Spiritual Evaluation: Patient is a "Bible Believing Sabianist" loves to pray and read the "Word." Spiritual Intervention: Listened to the patient's concerns about the upcoming procedure. Active Listening, past oral presence, and prayer was offered. Spiritual Outcomes: Patient appreciates director of orthopedics's prayer, seems less apprehensive. Spiritual Goals / Follow-up: Will see the patient as requested. If there are any other spiritual care issues that arise, please contact director of orthopedics. lan of Care - Kristina Ayers RRT [...] contributors. Gait side-stepping at bedside Level of [place]: 2 person assist required Assistive Device: 2 wheeled walker (FWW) Transfers pt weak and with dizziness, need for CGA for safety due to symptoms Sit-Stand, Level of [place]: stand by assist, contact guard assist Stand-Sit, Level of [place]: stand by assist, contact guard assist Csv-Twmvt-Jlz, Assistive Device: 2 wheeled walker (FWW) Safety Issues: weight-shifting ability decreased Impairments: pain, strength decreased Bed Mobility increased time d/t fatigue Assistive Device: none Supine to Sit, Level of [place]: contact guard assist Sit to Supine, Level of [place]: contact guard assist Functional Endurance impaired - SOB with limited activity [facility] BASIC MOBILITY [facility] BAS[facility] MOBILITY Turning over in [...] steps with a railing: dependent/unable TOTAL - [facility] BASIC MOBILITY : 14 Unable / dependent = 1 A lot / modA = 2 A little / Guillermo = 3 None / independent = 4 Completed the [facility] Activity Measure for Post Acute Care (AM-PAC) "6 Clicks" [facility] Mobility Inpatient Short Form. This version [...] STG Status continued at 05/12/2017 1203 STG [place] Level modified independent, supervised at 05/09/2017 1700 STG Assistive Device 2 wheeled walker (FWW) at 05/09/2017 1700 STG Distance (feet) 50 at 05/09/2017 1700 Electronically signed by: Velia Gerard, PT, 05/13/2017 13:50 lan of Ana Green i, RN - 05/13/2017 12:57 PM PDTProblem: Discharge Planning Goal: Patient will be discharged in a safe manner Outcome: Improving This CM called Elkin at [facility], p# [phone], and she confirmed that she has a [...] pain. lan of Care - Donato Mcqueen, CLOTH BOIL OFF MACHINE OPERATOR - 05/12/2017 6:09 PM PDTProblem: Patient Care [...] unable to step in place Level of [place]: 2 person assist required Assistive Device: 2 wheeled walker (FWW) Distance (feet): 15, 15 Transfers pt very weak with low BP, CGA to Min Assist for sit<>stand Sit-Stand, Level of [place]: stand by assist, contact guard assist Stand-Sit, Level of [place]: stand by assist, contact guard assist Jph-Dgczu-Vqj, Assistive Device: 2 wheeled walker (FWW) Safety Issues: weight-shifting ability decreased Impairments: pain, strength decreased Bed Mobility NT; pt up in chair on arrival requested to stay up in chair post tx Assistive Device: none Supine to Sit, Level of [place]: independent Sit to Supine, Level of [place]: independent Therapeutic Exercise pt c/o of pain [...] STG Status continued at 05/12/2017 1203 STG [place] Level modified independent, supervised at 05/09/2017 1700 [...] gtt at 5, now to maintain HR amry und 60's- 99s and SBP around 100's. [...] 25-30 ml urine an hour. lan of [facility] - Nataly Rosenbaum, VALARIE - 05/12/2017 12:36 [...] % on 2liters/minute nasal cannula lan of [facility] - Lisa Sherwood RN - 05/11/2017 6:58 [...] tare. lan of Care - Donato Mcqueen, CLOTH BOIL OFF MACHINE OPERATOR - 05/11/2017 4:33 PM PDTProblem: Patient Care [...] to RA from 3L lan of Becky Bolck PT - 05/11/2017 1:34 PM PDTProblem: Patient [...] due to fear of falling Level of [place]: 2 person assist required Assistive Device: 2 wheeled walker (FWW) Distance (feet): 15, 15 Stairs unable Bed Mobility Assistive Device: none Supine to Sit, Level of [place]: independent Sit to Supine, Level of [place]: independent Therapeutic Exercise Seated exercises: bilateral, long [...] STG Status new at 05/09/2017 1700 STG [place] Level modified independent, supervised at 05/09/2017 1700 [...] lan of Care - Sana, Sudhakar Ac, CLOTH BOIL OFF MACHINE OPERATOR - 0 05/10/2017 4:23 AM PDTProblem: Patient [...] for meals. On room air. lan of [facility] Irais Reynolds RN - 05/09/2017 6:15 PM [...] like me [facility] [place] [facility] [place] I faxed a referral to both facili ties and placed the cover sheets and fax receipts in the ghost charts. I received a call fr adriane Granger from [facility] and she verified that she had received [...] due to fear of falling Level of [place]: 2 person assist required Assistive Device: 2 wheeled walker (FWW) Distance (feet): 15, 15 Stairs NT Bed Mobility Assistive Device: none Supine to Sit, Level of [place]: independent Sit to Supine, Level of [place]: independent Balance ongoing assessment needed Therapeutic Exercise [...] STG Status new at 05/09/2017 1700 STG [place] Level modified independent, supervised at 05/09/2017 170 [...] Joanna Lock RN - 05/09/2017 6:30 AM [id number] (late entry) pt has remained in ST [...] lan o f Reena - Sudhakar Hood, CLOTH BOIL OFF MACHINE OPERATOR - 05/09/2017 1:56 AM PDTProblem: Patient Care [...] was contacted and he was transferred to OR at 1136. At about 1445 his HR [...] PM PDTPlan of Care - Melinda Davis, WELL DRILL OPERATOR ROTARY DRILL - 05/08/2017 4:23 PM PDTProblem: Discharge Planning Goal: Patient will be discharged in a safe manner Outcome: Improving This onsite case manager spoke with patient's POA and son Jacklyn Siddiqi regarding patient's discharg e plan. Son states that he now lives at [facility]. He was living at [facility] prior to [facility]. He has been living at [facility] about a month. Son states [...] they do go on daily walks around [facility]. Son states that he would appreciate case management to follow up with the RN at [facility] as well with him in coordinating a discharge back there. Son states that he is his transp ortation and will transport him back when stable. This CM called the RN at [facility] at [phone]. [facility] states that there has been a [...] PM PDTPt's Telemetry reading HR 150's-200. This CONCEPTOR we nt over to assess pt. Who was lying in bed talking on the phone with a family member. He den ies chest pain, SOB and/or a fluttering feeling in his chest. SBP 108/58. Pt.'s RN is at [facility]. EKG ordered and Dr. Philippe contacted about elevated HR concerns. Pt. To be transferred over to the ICU for closer monitoring. Electronically signed by Mary Cantu RN at 04/20 2:07 PM PDTD-C Instructions Provation - Peter Maciel MD - 05/08/2017 9:20 AM PDT Discharge Instructions for Upper Endoscopy Patient: Jacklyn Siddiqi : 1935 Acct: [id number] Exam Date: Monday, May 08, 2017 Doctor: Peter Maciel MD The chances of difficulty following this procedure are minimal. The following instruction s will assist you in your recovery. 1. Do Not eat or drink anything for 1 hour. Try sips of water first. If tolerated, resu me your regular diet or one recommended by your physician. 2. Do not drive, operate bety Enswers, make critical decisions, or do activities that [...] If unable to reach your physician, call [facility] Emergency Department at Ext. 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 | | [...] | | | ?MRN: | | | [id number] | | | [id number] | | | his | | | [...] | | | ent/cd | | | [id number] | | | -[id number]- | | | [...] | | | St. | | | [place] | | | y H. | | [...] | | | St. | | | [place] | | | y H. | | [...] | | | St. | | | [place] | | | y H. | | [...] | | | St. | | | [place] | | | y | | | [...] | | | H | | | MUSTHAQ | | | 2 15 | | [...] + | [facility] | [address] | [place] | [phone] | | [facility] | | [address] | | | - LABORATORY | | [...] [address] | [place] | [phone] | | [facility] | | [address] | | | - LABORATORY | | [...] | | GLOMERULAR FILTRATION | mL/min/1.73m2 | [facility] | | | SPANISH | RATE,ESTIMATED | | MEDICAL | | | | mL/min/1.88c6Vuvi than | | CENTER - | | [...] [address] | [place] | [phone] | | [facility] | | [address] | | | - LABORATORY | | [...] + | [facility] [facility] | [address] | [place] | [phone] | | [facility] | | [address] | | | - LABORATORY | | [...] | | | | BINU MACK MD ([id number]) | | | | | | on [...] | | | | BINU MACK MD ([id number]) | | | | | | on [...] was | | | taken to the worm farm laborer. 1 g of cefazolin was given intravenously. | | | Patient was hooked up to EKG, pulse oximetry and blood pressure | | | monitoring. All parameters were kept stable during procedure. The | | | [facility] [place] pacemaker customer care representative was present in the operating room. [...] the | | | pocket. A 6 Spanish sheath was placed over the guidewire and the core | | | was removed. The additional guidewires were inserted through the | | | sheath. The sheath was then removed. The guidewires were secured | | | by hemostat, leaving one guidewire to be utilized for placement of an | | | 8 Spanish safe sheath. A safe sheath core and [...] same technique as mentioned above, another 8 Spanish safe sheath | | | was utilized [...] #: LPA 1200 M, serial #: [id number]. C. | | | Ventricular lead: [place], length 52 cm, model #: LPA 1200M, serial | | | #: [id number]. PACEMAKER TESTING: A. Atrial lead: Sensing 2.4 [...] #: PM 2272, serial #: | | |[id number]. | | | | | |B. Atrial lead: [place], length 46 cm, model #: LPA 1200 M, | | |serial #: [id number]. | | | | | |C. Ventricular lead: [facility], length 52 cm, model #: LPA 1200M, | | |serial #: [id number]. | | | | | |PACEMAKER TESTING: [...] obtained, the patient was taken to the worm farm laborer. | | 1 g of cefazolin was given intravenously. Patient was hooked up to EKG, pulse oximetry | | and blood pressure monitoring. All parameters were kept stable during procedure. The | | [facility] [facility] pacemaker customer care representative was present in the operating room. [...] into the pocket. A 6 | | Spanish sheath was placed over the guidewire and the core was removed. The additional | | guidewires were inserted through the sheath. The sheath was then removed. The | | guidewires were secured by hemostat, leaving one guidewire to be utilized for placement | | of an 8 Spanish safe sheath. A safe sheath core and [...] as mentioned | | above, another 8 Spanish safe sheath was utilized to introduce an [...] #: LPA 1200 M, serial #: [id number].C. | | Ventricular lead: [facility], length 52 cm, model #: LPA 1200M, serial #: [id number] | | [id number].PACEMAKER TESTING: A. Atrial lead: Sensing 2.4 mV, [...] + | [facility] [facility] | [address] | [place] | [phone] | | [facility] | | [address] | | | - LABORATORY | | [...] [place] | | | | | | [address] | | | | + + + + + + + + | Specimen | + + | Blood | + + + + + + + | Performing | Address | City/State/Zipcode | Phone Number | | Organization | | | | + + + + + | [facility] | [address] | [place] [address] | [phone] | + + + + + Ferritin [...] + | [facility] | [address] | [place] | [phone] | | [facility] | | [address] | | | - LABORATORY | | [...] [address] | [place] | [phone] | | [facility] | | [address] | | | - LABORATORY | | [...] [place] | | | | | | [address] | | | | + + + + + + + + | Specimen | + + | Blood | + + + + + + + | Performing | Address | City/State/Zipcode | Phone Number | | Organization | | | | + + + + + | [facility] | [address] | [place] [address] | [phone] | + + + + + ECHO [...] Number 457 Patient Number | | | [id number] Date of Study 05/13/2017 Visit Number | | | [id number] Referring Physician | | | CRUZITO BIRD MD Number | | | MARGE FLOR Date of | | | 1935 Managing Cognitive Engineer TRELL LEWIS ANTONY Age | | | 81 year(s) Interpreting | | | MARGE FLOR | | | Knife Sharpener CRUZITO BIRD MD Gender | | | Male Nurse | | | Stress Histology Teacher Procedure Type of Study TTE procedure: ECHO [...] | 51.23 ml | | | EF Kjmbxpgkg86% Left Ventricle Diastolic Dimension: 4.23 | | [...] Volume: 51.23 ml | | | EF Qrsmufkjk47% | | | | | | Left [...] Room Number 457 Patient | | Number [id number] Date of Study 05/13/2017 Visit Number [id number] | | Referring Physician CRUZITO BIRD MD Number | | MARGE FLOR Date of 1935 | | Managing Cognitive Engineer TRELL LEWIS RDCS Age 81 year(s) Interpreting | | MARGE FLOR Knife Sharpener CRUZITO | | MD MARGE Gender Male [...] LA Volume: 51.23 ml EF | | Erzoxrhdt49% Left Ventricle Diastolic Dimension: 4.23 cm Systolic [...] LA Volume: 51.23 ml | | EF Utbotyvnd19% | | | | Left Ventricle | [...] | | | Counted | | | [facility] | | [...] [address] | [place] | [phone] | | [facility] | | [address] | | | - LABORATORY | | [...] | | | | | g/dL | [facility] [place] | | | | [...] + | [facility] | [address] | [place] | [phone] | | [facility] | | [address] | | | - LABORATORY | | [...] | | | | mg/dL | [facility] | | | | | | MEDICAL | | | | | | CENTER - | | | | | | LABORATORY | | + + + + + + | eGFR if not | 39 (L)Comment: | >=60 | [facility] | | | | GLOMERULAR FILTRATION | mL/min/1.73m2 | [facility] | | | SPANISH | RATE,ESTIMATED | | MEDICAL | | | | mL/min/1.01v8Fpfv than | | CENTER - | | [...] | | | | mg/dL | [facility] | | | | | [...] [address] | [place] | [phone] | | [facility] | | [address] | | | - LABORATORY | | [...] [address] | [place] | [phone] | | [facility] | | [address] | | | - LABORATORY | | [...] This is | 0.60 - 1.30 | [facility] | | | | an appended report. | mg/dL | [facility] | | | | These results have been | | MEDICAL | | | | appended to a previously | | CENTER - | | | | preliminary verified | | LABORATORY | | | | report. | | | | + + + + + + | eGFR if not | 36 (L)Comment: | >=60 | [facility] | | | | GLOMERULAR FILTRATION | mL/min/1.73m2 | [facility] | | | SPANISH | RATE,ESTIMATED | | MEDICAL | | | | mL/min/1.23i1Wmvy than | | CENTER - | | [...] + | [facility] | [address] | [place] | [phone] | | [facility] | | [address] | | | - LABORATORY | | [...] | | | Oral Anticoagulation | | [facility] | | | | Range: 2.0 [...] [address] | [place] | [phone] | | [facility] | | [address] | | | - LABORATORY | | [...] [address] | [place] | [phone] | | [facility] | | [address] | | | - LABORATORY | | [...] [address] | [place] | [phone] | | [facility] | | [address] | | | - LABORATORY | | [...] | | | | BINU MACK MD ([id number]) | | | | | | on [...] | | GLOMERULAR FILTRATION | mL/min/1.73m2 | [facility] | | | SPANISH | RATE,ESTIMATED | | MEDICAL | | | | mL/min/1.10k0Bzqa than | | CENTER - | | [...] + | [facility] | [address] | [place] | [phone] | | [facility] | | [address] | | | - LABORATORY | | [...] [address] | [place] | [phone] | | [facility] | | [address] | | | - LABORATORY | | [...] arthroplasty changes. Multiple lead wires overlie the pjzfa-jm-pbui. | | | Overall unchanged aeration of [...] | | Multiple lead wires overlie the rkgtw-ka-hvds. | | | | Overall unchanged aeration [...] | | ia | | | [facility] | | | | | | MEDICAL [...] + | [facility] | [address] | [place] | [phone] | | [facility] | | [address] | | | - LABORATORY | | [...] [address] | [place] | [phone] | | [facility] | | [address] | | | - LABORATORY | | [...] + | [facility] | [address] | [place] | [phone] | | [facility] | | [address] | | | - LABORATORY | | [...] not | 54 (L)Comment: | >=60 | [facility] | | | | GLOMERULAR FILTRATION | mL/min/1.73m2 | [facility] | | | SPANISH | RATE,ESTIMATED | | MEDICAL | | | | mL/min/1.55r3Apbv than | | CENTER - | | [...] [address] | [place] | [phone] | | [facility] | | [address] | | | - LABORATORY | | [...] [address] | [place] | [phone] | | [facility] | | [address] | | | - LABORATORY | | [...] [address] | [place] | [phone] | | [facility] | | [address] | | | - LABORATORY | | [...] | | | | BINU MACK MD ([id number]) | | | | | | on [...] | | | | BINU MACK MD ([id number]) | | | | | | on [...] [address] | [place] | [phone] | | [facility] | | [address] | | | - LABORATORY | | [...] | | | Lavender | | | [facility] | | | Top Tube | | [...] + | [facility] | [address] | [place] | [phone] | | [facility] | | [address] | | | - LABORATORY | | [...] | | | Oral Anticoagulation | | [facility] | | | | Range: 2.0 [...] [address] | [place] | [phone] | | [facility] | | [address] | | | - LABORATORY | | [...] | | | | mg/dL | [facility] | | | | | | MEDICAL | | | | | | CENTER - | | | | | | LABORATORY | | + + + + + + | eGFR if not | 43 (L)Comment: | >=60 | [facility] | | | | GLOMERULAR FILTRATION | mL/min/1.73m2 | [facility] | | | SPANISH | RATE,ESTIMATED | | MEDICAL | | | | mL/min/1.49v6Obkj than | | CENTER - | | [...] + + | Performing | Address | City/State/[facility]code | Phone Number | | Organization | | | | + + + + + | [facility] | [address] | [place] | [phone] | | [facility] | | [address] | | | - LABORATORY | | [...] ST. | [address] | [place], [place] | [phone] | | [facility] | | [address] | | | - LABORATORY | | [...] + | [facility] | [address] | [place] | [phone] | | [facility] | | [address] | | | - LABORATORY | | [...] [address] | [place] | [phone] | | [facility] | | [address] | | | - LABORATORY | | [...] | | | | BINU MACK MD ([id number]) | | | | | | on [...] | [facility] | | GastroenterologyPatient Name: Jacklyn Azul Date: 05/08/2017 | PROVATION | | 9:20 AMMRN: [id number] #: [id number] of : | | | 1935dmit Type: InpatientAge: 81Room: [facility] 02Gender: MaleNote | | | Status: FinalizedAttending MD: Peter Maciel , CITIZENS BAPTISTrocedure: | | | Upper GI endoscopyIndications: Gastrointestinal | | | bleeding of unknown originProviders: Peter Maciel MD, | | | Malka Dueñas RN, Amelie Cabral | | | Sukumar, Histology Teacher, Miguel Galicia MD | | | (Anesthesia [...] | | | the anesthesiologist and the audio video technician in the pre-procedure | | | [...] Scope In: 9:35:52 AMScope Out: 9:41:03 AM [facility]. | | | [facility] [address], [address] [place] [address] | | | [phone] | | | - A small amount [...] |Scope Out: 9:41:03 AM | | | [facility] [address] [place], [place] | | | [address] | | + + -+ + +---------+ + + | Performing | Address | City/State/[facility] Hospitalcode | Phone Number | | Organization [...] 2.3 | 1.8 - 2.5 mg/dL | [facility] | | | | [...] + | [facility] | [address] | [place] | [phone] | | [facility] | | [address] | | | - LABORATORY | | [...] mL/min/1.73m2 | [facility] | | | SPANISH | RATE,ESTIMATED | | MEDICAL | | | | mL/min/1.83a7Ypkp than | | CENTER - | | [...] [address] | [place] | [phone] | | [facility] | | [address] | | | - LABORATORY | | [...] + | [facility] | [address] | [place] | [phone] | | [facility] | | [address] | | | - LABORATORY | | [...] not | 50 (L)Comment: | >=60 | [facility] | | | | GLOMERULAR FILTRATION | mL/min/1.73m2 | [facility] | | | SPANISH | RATE,ESTIMATED | | MEDICAL | | | | mL/min/1.86o9Owic than | | CENTER - | | [...] [address] | [place] | [phone] | | [facility] | | [address] | | | - LABORATORY | | [...] [address] | [place] | [phone] | | [facility] | | [address] | | | - LABORATORY | | [...] [address] | [place] | [phone] | | [facility] | | [address] | | | - LABORATORY | | [...] [address] | [place] | [phone] | | [facility] | | [address] | | | - LABORATORY | | [...] [facility] | | | | | | [facility] | | | | | | [...] + | [facility] | [address] | [place] | [phone] | | [facility] | | [address] | | | - LABORATORY | | [...] ST. | [address] | [place], [place] | [phone] | | [facility] | | [address] | | | - LABORATORY | | [...] + | [facility] | [address] | [place] | [phone] | | [facility] | | [address] | | | - LABORATORY | | [...] - 1.030 | [facility] | | | [place], | | | [facility] | | [...] [address] | [place] | [phone] | | [facility] | | [address] | | | - LABORATORY | | [...] + + | Performing | Address | City/State/[facility] Hospitalcode | Phone Number | | Organization [...] | | | | BINU MACK MD ([id number]) | | | | | | on [...] | | | | | | [employer] | | | | | [...] + + | Performing | Address | City/State/[facility] Hospitalcode | Phone Number | | Organization | | | | + + + + + | [facility] | [address] | [place] | [phone] | | [facility] | | [address] | | | - LABORATORY | | [...] [address] | [place] | [phone] | | [facility] | | [address] | | | - LABORATORY | | [...] not | 53 (L)Comment: | >=60 | [facility] | | | | GLOMERULAR FILTRATION | mL/min/1.73m2 | [facility] | | | SPANISH | RATE,ESTIMATED | | MEDICAL | | | | mL/min/1.69x9Buzg than | | CENTER - | | [...] | | | | mg/dL | [facility] | | | | | [...] [address] | [place] | [phone] | | [facility] | | [address] | | | - LABORATORY | | [...] | Cells | | M/uL | . [facility] | | | | [...] + | [facility] | [address] | [place], [place] | [phone] | | [facility] | | [address] | | | - LABORATORY | | [...]
--- OUTSIDE RECORDS SUMMARY | ~2020-04-29 | XMS | Encounter Summary ---
Demographics + + + | Address | [address] | | | [place] [address] | + + + | Home Phone | | + + + | Preferred Language | Unknown | + + + | Marital Status | | + + + | Christian Affiliation | 1061 | + + + | Race | Unknown | + + + | Ethnic Group | Unknown | + + + Author + + + | Author | [facility] | | | and [place] | + + + | Organization | [facility] | | | [...] Team Providers + +------+ + | Care Community Engagement Representative Name | Role | Phone | [...] 2019 | | CARDIOLOGY [address] | [address] [place] | | | | | [place], | | | | | | [place] [address] | | | | | | [phone] | | | +--------+ + + + [...] Dx); | | | | | [place] [address] | Pacemaker Dual | | | | | [phone] | Chamber, MRI | | | | | | compatible, 05/14/17 | | | | | | [facility]; | | | | | | 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
--- OUTSIDE RECORDS SUMMARY | ~2020-04-29 | XMS | Encounter Summary ---
Demographics + + + | Address | [address] | | | [place] [address] | + + + | Home Phone | | + + + | Preferred Language | Unknown | + + + | Marital Status | | + + + | Islam Affiliation | 1061 | + + + | Race | Unknown | + + + | Ethnic Group | Unknown | + + + Author + + + | Author | [facility] | | | and [place] | + + + | Organization | [facility] | | | and [...] Providers + +------+ + | Care Hand Sizer Name | Role | Phone | + [...] Monitor | CARDIOLOGY [address] | [address] | Interrogation | | | | [place], | [place], | (Primary Dx); | | | | [place] [address] | [place] [address] | Pacemaker Dual | | | | [phone] | [phone] | Chamber, MRI | | | | [...] Paceart documentation and remote PDF scanned into [facility] for remote interrogation re sults. Data [...] Interrogation | | | | | 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 for | | | remote interrogation results. [...] Paceart documentation and remote PDF scanned into [employer] for remote | | interrogation results. Data [...]
--- OUTSIDE RECORDS SUMMARY | ~2020-04-29 | XMS | Encounter Summary ---
Demographics + + + | Address | [address] | | | [place] [address] | + + + | Home Phone [...] | Author | [facility] | | | and [place] | + + + | Organization | [facility] | | | and [...] Providers + +------+ + | Care Brand Engineer Name | Role | Phone | [...] | | CARDIOLOGY [address] [place] | | | | | [place], | 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
--- OUTSIDE RECORDS SUMMARY | ~2020-04-29 | XMS | Encounter Summary ---
Demographics + + + | Address | [address] | | | [place] [address] | + + + | Home Phone [...] Team Providers + +------+ + | Care Petrology Teacher Name | Role | Phone | [...] | | CARDIOLOGY [address] | [address] [place] | | | | | [place], | [place], | | | | | [place] [address] | [place] [address] | | | | | [phone] | [phone] | | | | | | | [...] 11:03 AM PDTPatient requested that I call [facility] at to schedule appointments. Called and left a voicemail message for sarah Zhang to call us back to schedule the ira durham appointments: 1. WOUND CHECK/WALKER (Implanted on 05-14-17) 2. OC/2-3 [facility] HOSP FUP/HEART FAILURE/WALKER 3. OC/THR PACER-SUW/3 MO INITIAL/WALKER Patient will be a New Patient in our Outpatient clinic. see referral #[id number].Electronicall y signed by Katia Corey at 05/17/2017 [...] 2019 | Monitor | | MD [facility] | Interrogation | | | | | [place], | (Primary Dx); | | | | | [place] [address] | Pacemaker Dual | | | | | [phone] | Chamber, MRI | | | | [...] [place] | | | | | | [address] | | | | | | | | +--------+ + + + + documented as of this encounter Visit Diagnoses Not on filedocumented in this encounter"
--- OUTSIDE RECORDS SUMMARY | ~2020-04-29 | XMS | Encounter Summary ---
Demographics + + + | Address | [address] | | | [place] [address] | + + + | Home Phone [...] Providers + +------+ + | Care Furnace Installer Helper Name | Role | Phone | [...] Monitor | CARDIOLOGY [address] | [address] | Interrogation | | | | [place], | 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
--- OUTSIDE RECORDS SUMMARY | ~2020-04-29 | XMS | Clinical Summary ---
Demographics + + + | Address | [address] | | | [place] [address] | + + + | Home Phone [...] | | + + +---------+ + | aCssandra Guthrie | ECON | Unknown | | + + +---------+ + Care Team Providers + +------+ + | Care Song Plugger Name | Role | Phone | + [...] | | | Activ | | (MYCOSTATIN) [id number] | topically 3 (three) | | | [...] St | | Rupert Assurity MRI [id number] 05/14/[address] [facility] Tendril | | MRI [id number] 05/14/[address] [facility] Tendril MRI | | [id number] 05/14/17 Indication: Tachycardia-Bradycardia | | Syndrome. 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, | (Primary Dx); | | | | | [place] [address] | Pacemaker Dual | | | | | [phone] | Chamber, MRI | | | | | | compatible, 05/14/17 | | | | | | [facility]; | | | | | | 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) | +--------+ + + + + | 01/05/ | Office | Cardiology | Emely Gabriel, | | | 2020 | Visit | | SPLICER HELPER [address] | | | | | | [place], [place] | | | | | | [address] | | | | | | | [...] | [facility] | | 06/20/ | [id number] | | [id number]: Qty: 1 | | Heart | MEDICAL - | | 2016 | 0M/52 | | on 05/14/2017 by Marge, | | | CHRISTOPHER | | | /[id number] | | MD Cruzito at [facility] | | | | | | 8427 / | | [facility] | | | | | | | + +------+-------+ +--------+--------+--------+ | Lead Tendril Mri 46cm - | | N/A: | [facility] | | 07/20/ | [id number] | | [id number]: Qty: 1 | | Heart | MEDICAL - | | 2017 | 0M/46 | | on 05/14/2017 by Marge, | | | CHRISTOPHER | | | /[id number] | | MD Cruzito at [facility] | | | | | | 3446 / | | [facility] | | | | | | | + +------+-------+ +--------+--------+--------+ | Pacer Assurity Mri Dr Rf - | | N/A: | [facility] | | 08/20/ | [id number] | | [id number]: Qty: 1 on | | Heart | MEDICAL - | | 2018 | | | 05/14/2017 by Marge, | | | CHRISTOPHER | | | /[id number] | | MD Cruzito at [facility] | | | | | | 01 / | | [facility] | | | | | [...] [place] | PACECAMMY | | MD Marge 02/11/2020 4:15 PMDate of Remote Interrogation: | | | 01/27/2020 Refer to Paceart documentation and remote PDF scanned into | | | [employer] for remote interrogation results. Data collected by [...] +--------+ +---------+--------+ | MEDICARE | MEDICA | [id number] | 06/21/19 | [phone] | | Medica | | | RE | | 98-Pre | 5 | | re | | | PART A | | sent | | | | | | AND B | | | | | | + +--------+ +--------+ +---------+--------+ | [employer]AN | MODA | [id number] | 10/21/19 | [phone] | | Medica | | MEDICAID HMO | HEALTH | | 19-Pre | 1 | | id | | | MDCD | | sent | | | | | | [place]MO [place] | | | | | | + +--------+ +--------+ +---------+--------+ | [employer] | VETERA | [id number] | | | | Indemn | | [...] | | al/Fam | | 1935 | [phone] | [address] | | | isak | | | 8 (Home) | [place] [address] | + +--------+ +--------+ + + | Johnny Siddiqi | Specia | Self | [birth year] | | [address] | | | l | | 1935 | [phone] | [address] | | | Servic | | | 7 (Home) | [place] [address] | | | es | | | | | + +--------+ +--------+ + + Advance Directives + + + + + | Type | Date Recorded | Patient | Explanation | | | | Collision Worker | | + + + + + | Power of | 05/07/2017 1:18 | | FINANCIAL POWER OF STEP DOWN SPECIALIST | | Personalization Specialist | PM | | | + + [...]
--- OUTSIDE RECORDS SUMMARY | ~2020-04-29 | XMS | Encounter Summary ---
Demographics + + + | Address | [address] | | | [place] [address] | + + + | Home Phone [...] Team Providers + +------+ + | Care Trust Accounts Supervisor Name | Role | Phone | + +------+ + PCP | Unavailable | + +------+ + Encounter Details +--------+ + + + + | Date | Type | Department | Care Team | Description | +--------+ + + + + | 03/26/ | Hospital | [facility] | Conversion | CORON ATHEROSCL | | 2004 | Encounter | CONVERSION DEP [address] | Transaction, | [place] [address] | | | | [address] | Provider Unknown | | | | | [place], [place] | [phone] | | | | | [address] | | | | | | [phone] | | | +--------+ + + + [...] Dx); | | | | | [place] [address] | Pacemaker Dual | | | | | [phone] | Chamber, MRI | | | | | | compatible, 05/14/17 | | | | | | [facility] Rudiay[facility]ha; | | | | | | 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) | +--------+ + + + + | 01/05/ | Office | Cardiology | Emely Gabriel, | | | 2020 | Visit | | HOSPITAL SOCIAL WORKER [address] | | | | | | [place] | | | | | | [address] | | | | | | | | +--------+ + + + + documented as of this encounter Visit Diagnoses + + | Diagnosis | + + | Coronary atherosclerosis of kashia coronary artery | + + | Remote Device Interrogation - Primary Fitting and adjustment of cardiac pacemaker | + + | Pacemaker Dual Chamber, MRI compatible, 05/14/17 [facility] Bird Cardiac pacemaker | | in situ | + + | 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
--- OUTSIDE RECORDS SUMMARY | ~2020-04-29 | XMS | Encounter Summary ---
Demographics + + + | Address | [address] | | | [place] [address] | + + + | Home Phone [...] Team Providers + +------+ + | Care Laborer Bituminous Paving Name | Role | Phone | + [...] CARDIOLOGY [address] | [address] [place] | Interrogation | | | | [place], | [place], | (Primary Dx); | | | | [place] [address] | [place] [address] | Pacemaker Dual | | | | [phone] | [phone] | Chamber, MRI | | | | [...] Paceart documentation and remote PDF scanned into 2U for remote interrogation re sults. Data collected [...] Interrogation | | | | | [place], | (Primary Dx); | | | | | [place] [address] | Pacemaker Dual | | | | | [phone] | Chamber, MRI | | | | | | compatible, 05/14/17 | | | | | | [facility]; | | | | | | 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) | +--------+ + + + + | 01/05/ | Office | Cardiology | Emely Gabriel, | | | 2020 | Visit | | MAINTENANCE OF WAY CLERK [address] | | | | | | [place] | | | | | | [address] | | | | | | | [...] remote PDF scanned into | | | [facility] for remote interrogation results. Data [...] of Remote Interrogation: | | 01/27/2019Refer to [place] documentation and remote PDF scanned into 2U for remote | | interrogation results. Data [...]
--- OUTSIDE RECORDS SUMMARY | ~2020-04-29 | XMS | Encounter Summary ---
Demographics + + + | Address | [address] | | | [place] [address] | + + + | Home Phone | | + + + | Preferred Language | Unknown | + + + | Marital Status | | + + + | Mandaen Affiliation | 1061 | + + + | Race | Unknown | + + + | Ethnic Group | Unknown | + + + Author + + + | Author | [facility] | | | and [place] | + + + | Organization | [facility] | | | and [...] Providers + +------+ + | Care Show Dog Trainer Name | Role | Phone | + +------+ + PCP | Unavailable | + +------+ + Encounter Details +--------+ + + + + | Date | Type | Department | Care Team | Description | +--------+ + + + + | 09/07/ | Hospital | [facility] | Mauricio Goldberg | | | 2002 | Encounter | MED CTR GENERIC OP | MD [address] | | | | | CONV DEPT [address] | [place] | | | | | [place], | [place] [address] | | | | | [place] [address] | [phone] | | | | | [phone] | | | +--------+ + + + [...] Dx); | | | | | [place] [address] | Pacemaker Dual | | | | | [phone] | Chamber, MRI | | | | | | compatible, 05/14/17 | | | | | | [facility]; | | | | | | 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) | +--------+ + + + + | 01/05/ | Office | Cardiology | Emely Gabriel, | | | 2020 | Visit | | [address] | | | | | | [place] | | | | | | [address] | | | | | | | | +--------+ + + + + documented as of this encounter Visit Diagnoses Not on filedocumented in this encounter"
--- OUTSIDE RECORDS SUMMARY | ~2020-04-29 | XMS | Encounter Summary ---
Demographics + + + | Address | [address] | | | [place] [address] | + + + | Home Phone [...] Providers + +------+ + | Care Chemical Reclamation Equipment Operator Name | Role | Phone | [...] 2019 | | CARDIOLOGY [address] | CUSTOMER SUPPORT ASSOCIATE [address] | | | | | [place], | [place] | | | | | [place] [address] | [address] | | | | | [phone] | | | +--------+ + + + [...] Dx); | | | | | [place] [address] | Pacemaker Dual | | | | | [phone] | Chamber, MRI | | | | | | compatible, 05/14/17 | | | | | | [facility]; | | | | | | 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) | +--------+ + + + + | 01/05/ | Office | Cardiology | Emely Gabriel, | | | 2020 | Visit | | CUSTOMER SUPPORT ASSOCIATE [address] | | | | | | St [place], [place] | | | | | | [address] | | | | | | | [...]
--- OUTSIDE RECORDS SUMMARY | ~2020-04-29 | XMS | Encounter Summary ---
Demographics + + + | Address | [address] | | | [place] [address] | + + + | Home Phone [...] Team Providers + +------+ + | Care Cook Chill Technician Name | Role | Phone | + +------+ + | Antonio Paulino MD | PCP | | + +------+ + Encounter Details +--------+ + + + + | Date | Type | Department | Care Team | Description | +--------+ + + + + | 09/03/ | Orders Only | [facility] | Antonio Payne | | | 2015 | | CARDIOLOGY [place] | MD [address] | | | | | [address] | [address] | | | | | [place] | [place] [address] | | | | | [address] | [phone] | | | | | [phone] | | | +--------+ + + + [...] Interrogation | | | | | [facility], | (Primary Dx); | | | | | [place] [address] | Pacemaker Dual | | | | | [phone] | Chamber, MRI | | | | | | compatible, 05/14/17 | | | | | | [facility]; | | | | | | 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) | +--------+ + + + + | 01/05/ | Office | Cardiology | Emely Gabriel, | | | 2020 | Visit | | BEHAVIOR SPECIALIST [address] | | | | | | St [place] | | | | | | [address] | | | | | | | [...] | | | | | by [facility] Read Only, | | | | | | [facility] ([id number]), | | | | | | purchasing expeditor Wyatt Pierce | | | | | | ([phone]) on 10/02/2016 | | | | | | 8:28:04 AM | | | | + + + + + + + + | Specimen | + + | | + + + + + | Narrative | Performed At | + + + | Historically converted [facility] Epic environment | EXTERNAL LAB [...]
--- OUTSIDE RECORDS SUMMARY | ~2020-04-29 | XMS | Encounter Summary ---
Demographics + + + | Address | [address] | | | [place] [address] | + + + | Home Phone [...] Team Providers + +------+ + | Care Tank Truck Milk Receiver Name | Role | Phone | + [...] | 05/14/ | Surgery | [facility] | Cruzito Bird, | CV EP PPM System | | 2016 | | MED CTR CV INTRA OP | MD [address] | Implant | | | | [address] | [place], | | | | | [place] | [place] [address] | | | | | [address] | [phone] | | | | | [phone] | | | +--------+---------+ + + + [...] Physician Discharge Summary Patient ID: Jacklyn Siddiqi [id number] 81 y.o. 1935 Admit date: 05/07/2017 Discharge [...] significantly so this was dis continued. The chief design drafter recommended putting in a permanent pacemaker and [...] normal Psychiatric: Appropriate affect and mood Disposition: [facility] Patient Instructions: Discharge Medications New Medications [...] Care Everywhere.Pacemaker Impla ntation, Discharge Instructions for (Japanese)documented in this encounter Medications at Time of [...] 06/04/2017 8:18 PM PDT [facility] HOSPITALIST PROGRESS NOTE Patient: Jacklyn Siddiqi : 1935: Age: 81 y.o. MedRec: [id number] PCP: Antonio Paulino MD Admission date: 05/07/2017 [...] 20:18 [facility] Shawn Lewis, [facility] Occupational Therapist Assistants - 05/16/2017 9:29 AM PDTFormatting of this [...] am: INR 4. Warfarin education received NO- group captain. 5. Pharmacist to follow daily Warfarin Dosing Nomogram Warfarin Dosing Expectations Per P&T-approved Electronically signed by: Shawn Mercedes, Striker Out 05/16/2017 9:29 Michael Giang MD - 05/16/2017 [...] Cardiovascular Palp/Percussion: PMI in 5th ICS at [facility]; no lifts, thrills, palp S3 or S4. [...] He is in a class IIo f [place] Heart Association functional class. There is mild [...] made to ensure accuracy; however, inadvertent computerized talent acquisition director errors may be pre sent. Electronically signed by: Cruzito Bird MD 05/16/2017 7:18 Susan Diaz MD - 05/15/2017 7:43 PM PDT [facility] HOSPITALIST PROGRESS NOTE Patient: Jacklyn Siddiqi : 1935: Age: 81 y.o. MedRec: [id number] PCP: Antonio Paulino MD Admission date: 05/07/2017 [...] am: INR 4. Warfarin education received NO- group captain. 5. Pharmacist to follow daily Warfarin [...] DOPamine Stopped (05/12/17 0745) norepinephrine Stopped (05/11/17 3945) OBJECTIVE: PHYSICAL EXAM Latest VS: BP 135/43 [...] Sinus rhythm Confirmed by FREDERICK CHARLTON, BINU ([id number]) on 05/15/2017 5:56:04 AM ECG 12 lead [...] Sinus rhythm Confirmed by BINU MACK MD ([id number]) on 05/15/2017 5:57:23 AM CBC no Differential [...] He is in a class IIo f [place] Heart Association functional class. There is mild [...] made to ensure accuracy; however, inadvertent computerized talent acquisition director errors may be pre sent. Electronically signed by: Cruzito Bird MD 05/15/2017 6:36 Susan Diaz MD - 05/14/2017 8:48 PM PDT [facility] HOSPITALIST PROGRESS NOTE Patient: Jacklyn Siddiqi : 1935: Age: 81 y.o. MedRec: [id number] PCP: Antonio Paulino MD Admission date: 05/07/2017 [...] 05/14/2017 20:48 [facility] Jessica Rivas PharmD - 05/14/2017 4:08 [...] am: INR 4. Warfarin education received NO- group captain. 5. Pharmacist to follow daily Warfarin [...] treatment were discussed with the patient in [facility]. The patient decides to proceed with the procedure. 2. Resume Coumadin after procedure today. 3. Start amiodarone oral loading today to treat A. fib with RVR. Portions of this report were transcribed using voice recognition software. Every effort wa s made to ensure accuracy; however, inadvertent computerized talent acquisition director errors may be pre sent. Electronically signed by: Cruzito Bird MD 05/14/2017 6:25 row, Yodit Ramsay MD - 05/13/2017 7:23 AM PDTForm atting of this note might be different from the original. [facility] HOSPITALIST PROGRESS NOTE Patient: Jacklyn Siddiqi : 1935: Age: 81 y.o. MedRec: [id number] PCP: Antonio Paulino MD Admission date: 05/07/2017 [...] has lengthened Confirmed by FREDERICK CHARLTON, BINU ([id number]) on 05/13/2017 6:24:02 AM Culture, Blood Result [...] arthroplasty changes. Multiple lead wires overlie the ttciq-io-[id number]. Overall unchanged aeration of the lungs with [...] apnea) Patient was tested (positive) at the [facility], w as provided with CPAP, slept "all [...] awake and requires oxygen when a sleep. B-RELOCATION ASSOCIATE 488 on arrival. Echo 02/2017 showed EF 70%; presumed diastolic dysfunction. Tr eatment complicated by moderate renal insufficiency. Also said to have cirrhosis but it acstro s not appear to e severe (ammonia [...] Pulmonary HTN Mild to severe by echo [id number]. Never smoked tobacco and no documente d [...] associated falls, on e occurring at the the day of admission and one occurring [...] 05/12/2017 10:27 AM PDT [facility] HOSPITALIST PROGRESS NOTE Patient: Jacklyn Siddiqi : 1935: Age: 81 y.o. MedRec: [id number] PCP: Antonio Paulino MD Admission date: 05/07/2017 [...] arthroplasty changes. Multiple lead wires overlie the [id number]-mw-drqt. Overall unchanged aeration of the lungs with [...] 05/11/2017 2:21 PM PDT [facility] HOSPITALIST PROGRESS NOTE Patient: Jacklyn Siddiqi : 1935: Age: 81 y.o. MedRec: [id number] PCP: Antonio Paulino MD Admission date: 05/07/2017 [...] with rate 70-80 on dopamine 5 mcg/min. [place] systolic valve cli ck at [facility]. Respiratory: [...] arthroplasty changes. Multiple lead wires overlie the [id number]-bf-ebtl. Overall unchanged aeration of the lungs with [...] Philippe 05/11/2017 14:21 [facility] hitney Bernard R N - 05/10/2017 7:34 [...] 05/10/2017 7:03 PM PDT HOSPITALIST progress NOTE [facility] 05/10/2017 Rounding Physician: Yodit Philippe MD Patient Name: Jackyln Siddiqi : 1935 Medical Record: [id number] Primary Hospital Problem: Atrial fibrillation with RVR [...] made to ensure accuracy; however, inadvertent computerized talent acquisition director errors and typos m ay be present Electronically signed by: Yodit Philippe MD, DATE/TIME: 05/10/2017 19:03 [facility] HOSPITALIST TEAM arTania walton RN - 05/10/2017 4:33 PM PDTReport to Whitney, Patient in bed resting. row, Yodit Ramsay MD - 05/10/2017 3:59 PM PDTForma tting of this note might be different from the original. [facility] HOSPITALIST PROGRESS NOTE Patient: Jacklyn Siddiqi : 1935: Age: 81 y.o. MedRec: [id number] PCP: Antonio Paulino MD Admission date: 05/07/2017 [...] Atrial fibrillation Confirmed by BINU MACK MD ([id number]) on 05/10/2017 5:50:22 AM No results found. [...] to commode and one pers on assist. research environmental engineer shows Sinus Tach with BBB. Patient on RA with sats 100%Electroni cece signed by Tania Cervantes RN at 05/10/2017 12:54 PM ELSYCrradha, Yodit Ramsay MD - 05/09/2017 8:11 PM PDT [facility] HOSPITALIST PROGRESS NOTE Patient: Jacklyn Siddiqi : 1935: Age: 81 y.o. MedRec: [id number] PCP: Antonio Paulino MD Admission date: 05/07/2017 [...] Philippe 06/04/2017 20:12 [facility] ancy Arechiga RN - 0 05/09/2017 1:59 PM PDTEvaluated pt for PICC line, upon review of chart placed midline 4 fren ch in left cephalic. Pt Needing IV access for blood draw and occasional IVP medication.Barbara ctronically signed by Nancy Arechiga RN at 05/09/2017 2:01 PM PDTCrow, Yodit Ramsay MD - 05/08 8:15 PM PDT [facility] HOSPITALIST PROGRESS NOTE Patient: Jacklyn Siddiqi : 1935: Age: 81 y.o. MedRec: [id number] PCP: Antonio Paulino MD Admission date: 05/07/2017 [...] and RT notified. O2 2 L via RELOCATION ASSOCIATE applied. O2 sat increased to 91%. Maintained [...] name, strength, and direction x MAR from [facility] facility: [facility] Vaccines up to date? [...] performed and electronically signed by Isa Kaufman, [place] Machine Operator Helper 16:14 Reviewed by: Dolly Rizzo, PharmD 05/07/2017 [...] Ramsay MD - 05/07/2017 2:14 PM PDT [facility] HISTORY AND PHYSICAL Pt. Name/Age/: [...] ulcers. He has a nonhealing ulcer ri [facility] forehead that he is told is [...] cirrhosis (HCC) 2004 CT scan 2003 at [facility] CAD (coronary artery disease) 2005 Had CABG to LAD (for 80-90% LAD) surgery done at [facility] CVA (cerebral infarction) -2014 lacunar (not stated as new nor old) Dementia Diastolic CHF (HCC) Echo 2013 EF 68, ascites, pulm HTN Endocarditis 2009 Enterococcus 6 weeks Amp + Gent H/O aortic valve replacement 2004 [place] AVR INR goal is 2-3, surgery done at [facility] Hypertension Liver cirrhosis (HCC) Over-anticoagulated 04/01/2015 Peripheral [...] Yodit Philippe MD 05/07/2017 14:14 [facility] documented in this enc ounter Procedure Notes [...] pulled through into the pocket. A 6 Uzbek sheath was p laced over the guidewire and the core was removed. The additional guidewires were inserted through the sheath. The sheath was then removed. The guidewires were secured by hemostat, leaving one guidewire to be utilized for placement of an 8 Uzbek safe sheath. A safe sheat h core [...] same technique as mentioned above, another 8 Uzbek safe sheath was utilized to i ntroduce [...] #: LPA 1200 M, serial #: [id number]. C. Ventricular lead: [place], length 52 cm, model #: LPA 1200M, serial #: [id number]. PACEMAKER TESTING: A. Atrial lead: Sensing 2.4 mV, threshold 0.5 V at 0.4 ms, resistance 440 ohms. B. Ventricular lead: Sensing 17 mV, threshold 0.5 V at 0.4 ms, resistance 490 ohms. PACEMAKER TESTING: Mode: DDDR. Lower rate limit: 60 ppm. Upper limit: 120 ppm. Cruzito Bird MD 05/14/2017 8:36 documented in this encounter Consult Notes Vinay Bernadr RN - 05/13/2017 6:01 PM PDTPICC indicated [...] obstructive sleep apnea. He was admitted to [facility] on 05/07/2017 for Atrial fibrillation with RVR [...] CT scan 2003 at [facility] CAD (coronary artery disease) 2004 Had CABG to LAD (for 80-90% LAD) surgery done at [facility] CVA (cerebral infarction) -2014 lacunar (not stated as new nor old) Dementia Diastolic CHF (HCC) Echo 2013 EF 68, ascites, pulm HTN Endocarditis 2009 Enterococcus 6 weeks Amp + Gent H/O aortic valve replacement 2004 [place] AVR INR goal is 2-3, surgery done at [facility] Hypertension Liver cirrhosis (HCC) Over-anticoagulated 04/01/2015 Peripheral [...] with Anesthesia; Surgeon: Peter Maciel MD; Location: [facility] MEDICAL PROCED [facility] FAMILY [...] INFUSIONS: DOPamine Stopped (05/12/17 0745) norepinephrine Stopped (05/11/176) ALLERGIES Allergies Allergen Reactions Latex Rash REVIEW [...] developed, well nourished, well groomed, no ac [place] distress Cardiovascular NYHA Class: II- Symptoms with moderate exertion Palp/Percussion: PMI in 5th ICS at [facility]; no lifts, thrills, palp S3 or S4. [...] has lengthened Confirmed by BINU MACK MD ([id number]) on 05/13/2017 6:24:02 AM Culture, Blood Collection [...] He is in a class II of [place] Heart Association functional class. There is fluid [...] patient. Electronically signed by: Cruzito Bird MD [facility] 05/13/2017 7:03 Portions of this chart may have been created with [employer] voice recognition software. Occasi onal wrong-word or sound-alike substitutions may have occurred due to the inherent carter itations of voice recognition software. Please read the chart carefully and recognize, using context, where these substitutions have occurred. Amelie Alvarez RN - 05/08/2017 11:53 AM PDTAssociated O rder(s): IP CONSULT TO WOUND OSTOMY NURSEMrJosefina Siddiqi is a [facility] patient who is seen at the [facility] routinely, that has the Coban 2 placed every /Sat which were just placed yesterday . Per the patient he has two ulcerations to the left LE POA. His son and him do not want the wraps removed until SaturdayMay 10 please. OT and Nursing to document wound/ulcers at that session. Have requested [facility] medical records as well to have in the paper chart. Amelie Pack RN [facility] Ext [phone] docume nted in this encounter ED Notes [...] cirrhosis (HCC) 2004 CT scan 2003 at [facility] CAD (coronary artery disease) 2005 Had CABG to LAD (for 80-90% LAD) surgery done at [facility] CVA (cerebral infarction) -2014 lacunar (not stated as new nor old) Dementia Diastolic CHF (HCC) Echo 2013 EF 68, ascites, pulm HTN Endocarditis 2009 Enterococcus 6 weeks Amp + Gent H/O aortic valve replacement 2004 [facility] [place] AVR INR goal is 2-3, surgery done at [facility] Hypertension Liver cirrhosis (HCC) Over-anticoagulated 04/01/2015 Peripheral [...] UA, POC Negative Negative, 100 mg/dL Specific Roxie, UA, POC 1.025 1.001 - 1.030 Blood, [...] TEXT Not Confirmed Raphael Karimi MD 05/07/17 3324 Raphael Karimi MD 05/07/17 1246 documented in this en counter Miscellaneous Notes [...] Consultants: Dr Nettles PCP: Antonio [facility]: CODE STATUS: [x] Attempt CPR [] Do not resuscitate If patient is pulseless and not breathing, RN/DOOR ASSEMBLER may pronounce . Advanced Directives included: [] [...] Reactions Latex Rash Diet: [x] As tolerated BREAKER BOSS may upgrade or downgrade diet as condition [...] Whole [] Thin Liquids [] Cut-up [] [place] Thick [] Advanced Chopped [] Honey Thickened [] Chopped [] Advanced Ground [] 1:1 feedings [] Ground/Pureed [] Other: Tube Feedings: [] PEG [] GT [] JT [] NGT [] Formula type: (Residential Leasing Agent may change/substitute if indicated). [] Continuous Rate: [...] & Management for: restrict ed limb [] BREAKER BOSS Evaluation &Management for: [] Other: Wound/Skin Care: [...] Susan SAWYER MD, certify that post hospital penitentiary care is medically nece ssary on a continuing basis for any of the conditions for which he/she received care during this hospitalization. Check one: [x] Skilled [] Intermediate Additional Orders/Instructions Physician's signature: Susan Jarvis MD05/16/2017 14:20 [facility] USE ONLY: [] [...] Therapy Discharge Recommendations are: Recommended discharge disposition: penitentiary facility Post discharge physical therapy recommendation: will [...] for assist for safety Bed-Chair, Level of [place]: contact guard assist, set up required, verbal cues requir ed Chair-Bed, Level of [place]: contact guard assist, set up required, verbal cues requir ed Uto-Nawsc-Wqw, Assistive Device: 2 wheeled walker (FWW) Sit-Stand, Level of [place]: contact guard assist, verbal cues required Stand-Sit, Level of [place]: contact guard assist, verbal cues required Nrf-Szfzs-Yzr, Assistive Device: 2 wheeled walker (FWW) Safety Issues: weight-shifting ability decreased Impairments: pain, strength decreased Bed Mobility increased time and need for frequent redirection Assistive Device: bed rails Supine to Sit, Level of [place]: contact guard assist Sit to Supine, Level of [place]: (NT, pt left sitting in bedside chair) [...] STG Status continued at 05/16/2017 1155 STG [place] Level modified independent, supervised at 05/09/2017 1700 [...] Improving This CM spoke with Elkin at [facility] this AM and she is ready to accept patient when he is medically stable and will arrange transport there for patient. She confirmed yahaira t they also have OT there to do his leg wraps. Efaxed the MD prog notes, PT OT notes, and med list to her. TN# [id number]. Manually faxed the completed PASRR to SNF. Pkt started and placed in ghost chart. Electronically signed by: Ana Dietrich RN 05/16/2017 10:27 11:14 Left message with Elkin, at [facility], letting her know that patient will be d ischarged today and would be ready this afternoon sometime. Requested a return call with pic k up time. Elkin returned call with 1430 order picker time. Let bedside RN know. Left message with Jacklyn , letting him know that his dad will be taken to the SNF today. Pkt completed with original completed PASRR, AVS, and Trazadone script. Given to peg driver. Fa xed SNF transfer orders to [facility] with call to Elkin.Electronically signed by: [...] expiratory wheezes/fine crackles. lan of Care - [facility] Nanda gandara RN - 05/16/2017 5:04 [...] afternoon and let him know that the [facility] would only be a short term rehab not m[facility] stay and that he would have to pay for the transpor t there, since he is non-service connected, per SAMEER [place], whom this CM called to confirm this above information. Jacklyn Joiner stated that his father will not go back to [facility], so reassured him yahaira t the load planner at [facility] would help find a exterminator termite place for him since he will need [...] Therapy Discharge Recommendations are: Recommended discharge disposition: penitentiary facility Post discharge physical therapy recommendation: will [...] and attending to task Bed-Chair, Level of [place]: contact guard assist, set up required, verbal cues requir ed Chair-Bed, Level of [place]: contact guard assist, set up required, verbal cues requir ed Nfw-Bqdgn-Cei, Assistive Device: 2 wheeled walker (FWW) Sit-Stand, Level of [place]: contact guard assist, verbal cues required Stand-Sit, Level of [place]: contact guard assist, verbal cues required Hcy-Cuifo-Ifs, Assistive Device: 2 wheeled walker (FWW) Safety Issues: weight-shifting ability decreased Impairments: pain, strength decreased Bed Mobility increased time and need for frequent redirection Assistive Device: bed rails Supine to Sit, Level of Ll[place]: contact guard assist Sit to Supine, Level of Ll[place]: (NT, pt left sitting in bedside chair) [...] STG Status continued at 05/15/2017 1315 STG [place] Level modified independent, supervised at 05/09/2017 1700 [...] forward to go to a rehab facil [facility] in the future. lan of Care [...] ssistance with ambulation and transfers. lan of [facility] - Rob Dietrich RN - 05/14/2017 6:04 PM PDTProblem: Discharge Planning Goal: Patient will be discharged in a safe manner This CM met with patient per his request about his discharge plan. Let him know that [facility] has accepted him and he was [...] did not even know that [facility] hospital [facility]. This CM was trying to get some help as to where patient was going to go after his rehab, si nce patient stated that his other son, Jacklyn Siddiqi Jr, is currently moving out all his belo ngings out of [facility] in [place], since he is too high level of [...] today. CM will need to call the [facility] in AM to see if patient is eligible for transfer to the [facility].Electronically signed by: Ana Dietrich RN [...] Therapy Discharge Recommendations are: Recommended discharge disposition: penitentiary facility Post discharge physical therapy recommendation: will [...] treatment from his children Bed-Chair, Level of Ll[place]: contact guard assist, set up required, verbal cues requir ed Lhf-Hphpu-Ogn, Assistive Device: 2 wheeled walker (FWW) Sit-Stand, Level of [place]: contact guard assist, verbal cues required Stand-Sit, Level of [place]: contact guard assist, verbal cues required Tgr-Ximfp-Pgn, Assistive Device: 2 wheeled walker (FWW) Safety Issues: weight-shifting ability decreased Impairments: pain, strength decreased Bed Mobility increased time and need for frequent redirection Assistive Device: bed rails Supine to Sit, Level of Llano: contact guard assist Sit to Supine, Level of Ll[place]: (NT, pt left sitting in bedside chair) [...] STG Status continued at 05/14/2017 1600 STG [place] Level modified independent, supervised at 05/09/2017 1700 [...] re questing to use commode. OT and OUTDOOR EDUCATION TEACHER assisted patient with functional t/f and limited [...] bed rails Supine to Sit, Level of Llano: contact guard assist Sit to Supine, Level of Llano: contact guard assist Transfers Sit-Stand, Level of Ll[place]: stand by assist, contact guard assist Stand-Sit, Level of Ll[place]: stand by assist, contact guard assist Mxy-Qjafy-Wfi, Assistive Device: 2 wheeled walker (FWW) Toilet, Level of Llano: contact guard assist, stand by assist Toilet, Assistive Device: 2 wheeled walker (FWW) Impairments: pain, strength decreased OT Goal Review Date Flowsheet Row Most Recent Value STG Review Date 05/16/17 at 05/09/2017 1604 LB Dressing Goal Flowsheet Row Most Recent Value STG Status new at 05/14/2017 1045 STG [place] Level modified independent at 05/14/2017 1045 Toilet Transfer Goal Flowsheet Row Most Recent Value STG Status new at 05/14/2017 1045 STG [place] Level supervised at 05/14/2017 1045 STG Assistive [...] Spiritual Evaluation: Patient is a "Bible Believing Yazidi" loves to pray and read the "Word." Spiritual Intervention: Listened to the patient's concerns about the upcoming procedure. Active Listening, past oral presence, and prayer was offered. Spiritual Outcomes: Patient appreciates disbursing agent's prayer, seems less apprehensive. Spiritual Goals / Follow-up: Will see the patient as requested. If there are any other spiritual care issues that arise, please contact disbursing agent. lan of Care - Kristina Ayers, VALARIE [...] Therapy Discharge Recommendations are: Recommended discharge disposition: penitentiary facility Post discharge physical therapy recommendation: will benefit from structured setting, ongo ing low intensity therapy Equipment Recommendations: 2 wheeled walker (FWW) Planned Interventions: balance training, gait training, strengthening Recommended Frequency: daily Patient Status/Goals: Reflects last filed data and may be from multiple contributors. Gait side-stepping at bedside Level of Llano: 2 person assist required Assistive Device: 2 wheeled walker (FWW) Transfers pt weak and with dizziness, need for CGA for safety due to symptoms Sit-Stand, Level of Ll[place]: stand by assist, contact guard assist Stand-Sit, Level of [place]: stand by assist, contact guard assist Zta-Igsnz-Tuz, Assistive Device: 2 wheeled walker (FWW) Safety Issues: weight-shifting ability decreased Impairments: pain, strength decreased Bed Mobility increased time d/t fatigue Assistive Device: none Supine to Sit, Level of Ll[place]: contact guard assist Sit to Supine, Level of Llano: contact guard assist Functional Endurance impaired - SOB with limited activity [facility] Turning over in bed: [...] steps with a railing: dependent/unable TOTAL - [facility] : 14 Unable / dependent = 1 A lot / modA = 2 A little / Guillermo = 3 None / independent = 4 Completed the [facility] Activity Measure for Post Acute Care (AM-PAC) "6 Clicks" [facility] Mobility Inpatient Short Form. This version [...] STG Status continued at 05/12/2017 1203 STG [place] Level modified independent, supervised at 05/09/2017 1700 [...] Improving This CM called Elkin at [facility], p# [phone], and she confirmed that she has a [...] pain. lan of Care - Donato Mcqueen, FLOTATION OPERATOR - 05/12/2017 6:09 PM PDTProblem: Patient [...] sleeping. lan of Care - Javier Arana, SOCIAL SERVICES DESIGNEE - 05/12/2017 11:50 AM PDT Problem: Patient [...] unable to step in place Level of Llano: 2 person assist required Assistive Device: 2 wheeled walker (FWW) Distance (feet): 15, 15 Transfers pt very weak with low BP, CGA to Min Assist for sit<>stand Sit-Stand, Level of [place]: stand by assist, contact guard assist Stand-Sit, Level of [place]: stand by assist, contact guard assist Grp-Nsbbi-Yjn, Assistive Device: 2 wheeled walker (FWW) Safety Issues: weight-shifting ability decreased Impairments: pain, strength decreased Bed Mobility NT; pt up in chair on arrival requested to stay up in chair post tx Assistive Device: none Supine to Sit, Level of [place]: independent Sit to Supine, Level of [place]: independent Therapeutic Exercise pt c/o of pain [...] STG Status continued at 05/12/2017 1203 STG [place] Level modified independent, supervised at 05/09/2017 1700 [facility] Assistive Device 2 wheeled walker (FWW) at [...] 25-30 ml urine an hour. lan of [facility], [place] - Nataly Rosenbaum, VALARIE - 05/12/2017 12:36 [...] % on 2liters/minute nasal cannula lan of [facility] [place] - Lisa Sherwood RN - 05/11/2017 6:58 [...] tare. lan of Care - Donato Mcqueen, FLOTATION OPERATOR - 05/11/2017 4:33 PM PDTProblem: Patient [...] due to fear of falling Level of [place]: 2 person assist required Assistive Device: 2 wheeled walker (FWW) Distance (feet): 15, 15 Stairs unable Bed Mobility Assistive Device: none Supine to Sit, Level of [place]: independent Sit to Supine, Level of [place]: independent Therapeutic Exercise Seated exercises: bilateral, long [...] STG Status new at 05/09/2017 1700 STG [place] Level modified independent, supervised at 05/09/2017 1700 [...] dressed w non adherent drsg. lan of [facility], [place] - Sana, Sudhakar Ac, FLOTATION OPERATOR - 0 05/10/2017 4:23 AM PDTProblem: [...] like me [facility] [place] [facility] [place] I faxed a referral to both [facility] ties and placed the cover sheets and fax receipts in the ghost charts. I received a call fr adriane Granger from [facility] and she verified that she had [...] due to fear of falling Level of [place]: 2 person assist required Assistive Device: 2 wheeled walker (FWW) Distance (feet): 15, 15 Stairs NT Bed Mobility Assistive Device: none Supine to Sit, Level of [place]: independent Sit to Supine, Level of [place]: independent Balance ongoing assessment needed Therapeutic Exercise [...] STG Status new at 05/09/2017 1700 STG [place] Level modified independent, supervised at 05/09/2017 1700 [...] Joanna Lock RN - 05/09/2017 6:30 AM [id number] (late entry) pt has remained in ST [...] lan o f Reena - Sudhakar Hood FLOTATION OPERATOR - 05/09/2017 1:56 AM PDTProblem: Patient [...] rapid heart rate lan of Care - Pr Martha hicks RN - 05/08/2017 6:27 PM [...] was contacted and he was transferred to [facility] at 1136. At about 1445 his HR [...] PM PDTPlan of Care - Melinda Davis, POTTERY KILN BUILDER - 05/08/2017 4:23 PM PDTProblem: Discharge Planning Goal: Patient will be discharged in a safe manner Outcome: Improving This case coordinator spoke with patient's POA and son Jacklyn Siddiqi regarding patient's discharg e plan. Son states that he now lives at [facility]. He was living at [facility] prior to [facility]. He has been living at [facility] about a month. Son states that they [...] they do go on daily walks around [facility]. Son states that he would appreciate case management to [facility] as well with him in coordinating a discharge back there. Son states that he is his transp ortation and will transport him back when stable. This CM called the RN at [facility] at [phone]. Rhianna states that there has been a [...] a time to come assess patient. [facility], we may need to consider a SNF. [...] PM PDTPt's Telemetry reading HR 150's-200. This FIBER WORKER we nt over to assess pt. Who was lying in bed talking on the phone with a family member. He den ies chest pain, SOB and/or a fluttering feeling in his chest. SBP 108/58. Pt.'s RN is at [facility]. EKG ordered and Dr. Philippe contacted about elevated HR concerns. Pt. To be transferred over to the ICU for closer monitoring. Electronically signed by Mary Cantu RN at 04/20 2:07 PM PDTD-C Instructions Provation - Peter Maciel MD - 05/08/2017 9:20 AM PDT Discharge Instructions for Upper Endoscopy Patient: Jacklyn Siddiqi : 1935 Acct: [id number] Exam Date: Monday, May 08, 2017 Doctor: Peter Maciel MD The chances of difficulty following this procedure are minimal. The following instruction s will assist you in your recovery. 1. Do Not eat or drink anything for 1 hour. Try sips of water first. If tolerated, resu me your regular diet or one recommended by your physician. 2. Do not drive, operate bet[employer], make critical decisions, or do activities that [...] If unable to reach your physician, call [facility] Emergency Department at Ext. [phone] Your doctor [...] 11:10 AM PDTPt had been at the [facility] this am and was heading back home an d pt fell twice this am once at the [facility] once at gas station. Pt did not [...] 2019 | Monitor | | [address] | Interrogation | | | | | [place] [place], | (Primary Dx); | | | | | [place] [id number] | Pacemaker Dual | | | | | [phone] | Chamber, MRI | | | | [...] | | | | | | St [place], [place] | | | | | | [address] | | | | | | | [...] | | | | PDT | RVR ([facility]) | results section. | | | | | Persistent atrial | | | | | | fibrillation ([facility]) | | + +--------+ + + [...] | | | ?MRN: | | | [id number] | | | [id number] | | | his | | | [...] | | | ent/cd | | | [id number] | | | [id number] | | | [...] | | | St. | | | [place] | | | y H. | | [...] | | | St. | | | [place] | | | y H. | | [...] | | | St. | | | [place] | | | y H. | | [...] | | | St. | | | [place] | | | y | | | [...] [address] | [place] | [phone] | | [facility] | | [address] | | | - LABORATORY | | [...] [address] | [place] | [phone] | | [facility] | | [address] | | | - LABORATORY | | [...] | mL/min/1.73m2 | [facility] | | | [place] | RATE,ESTIMATED | | MEDICAL | | | | mL/min/1.27t6Zwbi than | | CENTER - | | [...] + | [facility] | [address] | [place], [place] | [phone] | | [facility] | | [address] | | | - LABORATORY | | [...] + | [facility] | [address] | [place] | [phone] | | [facility] | | [address] | | | - LABORATORY | | [...] | | | | BINU MACK MD ([id number]) | | | | | | on [...] | | | | BINU MACK MD ([id number]) | | | | | | on [...] The | | | [place] pacemaker contact representative was present in the operating room. [...] the | | | pocket. A 6 Uzbek sheath was placed over the guidewire and the core | | | was removed. The additional guidewires were inserted through the | | | sheath. The sheath was then removed. The guidewires were secured | | | by hemostat, leaving one guidewire to be utilized for placement of an | | | 8 Uzbek safe sheath. A safe sheath core and [...] same technique as mentioned above, another 8 Uzbek safe sheath | | | was utilized [...] #: LPA 1200 M, serial #: [id number]. C. | | | Ventricular lead: [place], length 52 cm, model #: LPA 1200M, serial | | | #: [id number]. PACEMAKER TESTING: A. Atrial lead: Sensing 2.4 [...] #: PM 2272, serial #: | | |[id number]. | | | | | |B. Atrial lead: [place], length 46 cm, model #: LPA 1200 M, | | |serial #: [id number]. | | | | | |C. Ventricular lead: [place], length 52 cm, model #: LPA 1200M, | | |serial #: [id number]. | | | | | |PACEMAKER TESTING: [...] procedure. The | | [facility] [facility] pacemaker contact representative was present in the operating room. [...] into the pocket. A 6 | | Uzbek sheath was placed over the guidewire and the core was removed. The additional | | guidewires were inserted through the sheath. The sheath was then removed. The | | guidewires were secured by hemostat, leaving one guidewire to be utilized for placement | | of an 8 Uzbek safe sheath. A safe sheath core and [...] as mentioned | | above, another 8 Uzbek safe sheath was utilized to introduce an [...] #: LPA 1200 M, serial #: [id number].C. | | Ventricular lead: [place], length 52 cm, model #: LPA 1200M, serial #: [id number] | | [id number].PACEMAKER TESTING: A. Atrial lead: Sensing 2.4 mV, [...] + | [facility] | [address] | [place] | [phone] | | [facility] | | [address] | | | - LABORATORY | | [...] [place] | | | | | | [address] | | | | + + + + + + + + | Specimen | + + | Blood | + + + + + + + | Performing | Address | City/State/Zipcode | Phone Number | | Organization | | | | + + + + + | [facility] | [address] | [place] [address] | [phone] | + + + + + Ferritin [...] [address] | [place] | [phone] | | [facility] | | [address] | | | - LABORATORY | | [...] [facility] | | | | | | . [...] + | [facility] | [address] | [place] | [phone] | | [facility] | | [address] | | | - LABORATORY | | [...] [place] | | | | | | [address] | | | | + + + + + + + + | Specimen | + + | Blood | + + + + + + + | Performing | Address | City/State/Zipcode | Phone Number | | Organization | | | | + + + + + | [facility] | [address] | [place] [address] | [phone] | + + + + + ECHO [...] Number 457 Patient Number | | | [id number] Date of Study 05/13/2017 Visit Number | | | [id number] Referring Physician | | | CRUZITO BIRD MD Number | | | MARGE VICFRANTZ Date of | | | 1935 Community Health Outreach Worker TRELL LEWIS ANTONY Age | | | 81 year(s) Interpreting | | | MARGE FLOR | | | Dip Filler CRUZITO BIRD MD Gender | | | Male Nurse | | | Stress Mechanical Fitter Procedure Type of Study TTE procedure: ECHO [...] | 51.23 ml | | | EF Xhmsgzdgn61% Left Ventricle Diastolic Dimension: 4.23 | | [...] Volume: 51.23 ml | | | EF Vgpwjuwnt99% | | | | | | Left [...] Room Number 457 Patient | | Number [id number] Date of Study 05/13/2017 Visit Number [id number] | | Referring Physician CRUZITO BIRD MD Number | | MARGE FLOR Date of 1935 | | Community Health Outreach Worker TIMMYJAYWhitley JOSHUA RODRIGUEZ Age 81 year(s) Interpreting | | MARGE FLOR Dip Filler CRUZITO | | MD MARGE Gender Male [...] LA Volume: 51.23 ml EF | | Ssonlnafw02% Left Ventricle Diastolic Dimension: 4.23 cm Systolic [...] LA Volume: 51.23 ml | | EF Qvrstrpoe70% | | | | Left Ventricle | [...] | Bands | | K/uL | [facility] | | | | [...] [address] | [place] | [phone] | | [facility] | | [address] | | | - LABORATORY | | [...] [address] | [place] | [phone] | | [facility] | | [address] | | | - LABORATORY | | [...] not | 39 (L)Comment: | >=60 | [facility] | | | | GLOMERULAR FILTRATION | mL/min/1.73m2 | [facility] | | | [place] | RATE,ESTIMATED | | MEDICAL | | | | mL/min/1.46u2Jeoh than | | CENTER - | | [...] [address] | [place] | [phone] | | [facility] | | [address] | | | - LABORATORY | | [...] + | [facility] | [address] | [place] | [phone] | | [facility] | | [address] | | | - LABORATORY | | [...] 4 | 3 - 16 mmol/L | [facility] | | | | | [...] mL/min/1.73m2 | [facility] | | | [place] | RATE,ESTIMATED | | MEDICAL | | | | mL/min/1.58w2Molt than | | CENTER - | | [...] Ratio | appended report. These | | [facility] | | | | results have [...] + | [facility] | [address] | [place] | [phone] | | [facility] | | [address] | | | - LABORATORY | | [...] | | Time | | seconds | [facility] | | | | | | MEDICAL | | | | | | CENTER - | | | | | | LABORATORY | | + + + + + + | INR | 2.04 (H)Comment: Usual | 0.90 - 1.10 | [facility] | | | | Oral Anticoagulation | | [facility] | | | | Range: 2.0 [...] [address] | [place] | [phone] | | [facility] | | [address] | | | - LABORATORY | | [...] + | [facility] | [address] | [place] | [phone] | | [facility] | | [address] | | | - LABORATORY | | [...] ST. | [address] | [place] | [phone] | | [facility] | | [address] | | | - LABORATORY | | [...] | | | | BINU MACK MD ([id number]) | | | | | | on [...] not | 41 (L)Comment: | >=60 | [facility] | | | | GLOMERULAR FILTRATION | mL/min/1.73m2 | [facility] | | | [place] | RATE,ESTIMATED | | MEDICAL | | | | mL/min/1.29u0Boqu than | | CENTER - | | [...] + | [facility] | [address] | [place] | [phone] | | [facility] | | [address] | | | - LABORATORY | | [...] [address] | [place] | [phone] | | [facility] | | [address] | | | - LABORATORY | | [...] arthroplasty changes. Multiple lead wires overlie the acxmh-ce-ysad. | | | Overall unchanged aeration of [...] | | Multiple lead wires overlie the bfxte-jy-lqst. | | | | Overall unchanged aeration [...] [address] | [place] | [phone] | | [facility] | | [address] | | | - LABORATORY | | [...] | | | Cells | | | [facility] | | | | | | MEDICAL | | | | | | CENTER - | | | | | | LABORATORY | | + + + + + + | Red Blood | 3.58 (L) | 4.30 - 5.70 | [facility] | | | Cells | | M/uL | [facility] | | | | | | [...] ST. | [address] | [place], [place] | [phone] | | [facility] | | [address] | | | - LABORATORY | | [...] [address] | [place] | [phone] | | [facility] | | [address] | | | - LABORATORY | | [...] | 1.28 | 0.60 - 1.30 | [facility] | | | | | mg/dL | [facility] | | | | | | MEDICAL | | | | | | CENTER - | | | | | | LABORATORY | | + + + + + + | eGFR if not | 54 (L)Comment: | >=60 | [facility] | | | | GLOMERULAR FILTRATION | mL/min/1.73m2 | [facility] | | | [place] | RATE,ESTIMATED | | MEDICAL | | | | mL/min/1.43a1Ohky than | | CENTER - | | [...] | ine Ratio | | | [facility] | | [...] [address] | [place] | [phone] | | [facility] | | [address] | | | - LABORATORY | | [...] [address] | [place] | [phone] | | [facility] | | [address] | | | - LABORATORY | | [...] [address] | [place] | [phone] | | [facility] | | [address] | | | - LABORATORY | | [...] | | | | FREDERICK CHARLTON, BINU ([id number]) | | | | | | on [...] | | | | BINU MACK MD ([id number]) | | | | | | on [...] [address] | [place] | [phone] | | [facility] | | [address] | | | [...] + | [facility] | [address] | [place] | [phone] | | [facility] | | [address] | | | - LABORATORY | | [...] [address] | [place] | [phone] | | [facility] | | [address] | | | - LABORATORY | | [...] | | GLOMERULAR FILTRATION | mL/min/1.73m2 | [facility] | | | [place] | RATE,ESTIMATED | | MEDICAL | | | | mL/min/1.31f1Avec than | | CENTER - | | [...] [address] | [place] | [phone] | | [facility] | | [address] | | | - LABORATORY | | [...] [address] | [place] | [phone] | | [facility] | | [address] | | | - LABORATORY | | [...] + | [facility] | [address] | [place] | [phone] | | [facility] | | [address] | | | - LABORATORY | | | | + + + + + Culture, MRSA (05/08/2017 1:30 PM PDT) + + + + + + | Component | Value | Ref Range | Performed | Pathologist | | | | | At | Signature | + + + + + + | Culture | Negative for MRSA by | | [facility] | | | | chromogenic agar method [...] [address] | [place] | [phone] | | [facility] | | [address] | | | - LABORATORY | | [...] | | | | BINU MACK MD ([id number]) | | | | | | on [...] 05/08/2017 | [facility]OVATION | | 9:20 AMMRN: [id number] #: [id number] of : | | | 3Admit Type: InpatientAge: 81[facility]Gender: MaleNote | | | Status: FinalizedAttending MD: Peter Maciel [facility]: | | | Upper GI endoscopyIndications: Gastrointestinal | | | bleeding of unknown originProviders: Peter Maciel MD, | | | Malka Dueñas RN, Amelie Cabral | | | Sukumar, Mechanical Fitter, Miguel Galicia MD | | | (Anesthesia [...] | | | the anesthesiologist and the bicycle repair technician in the pre-procedure | | | [...] Scope In: 9:35:52 AMScope Out: 9:41:03 AM [facility]. | | | [facility], [address] [place] [address] | | | [phone] | | | - A small amount [...] |Scope Out: 9:41:03 AM | | | [facility], [address] [facility], [place], [place] | | | [address] | | + + -+ + +---------+ [...] [address] | [place] | [phone] | | [facility] | | [address] | | | - LABORATORY | | [...] not | 48 (L)Comment: | >=60 | [facility] | | | | GLOMERULAR FILTRATION | mL/min/1.73m2 | [facility] | | | [place] | RATE,ESTIMATED | | MEDICAL | | | | mL/min/1.24f3Pxnw than | | CENTER - | | [...] [address] | [place] | [phone] | | [facility] | | [address] | | | - LABORATORY | | [...] + | [facility] | [address] | [place] | [phone] | | [facility] | | [address] | | | - LABORATORY | | [...] mL/min/1.73m2 | [facility] | | | [place] | RATE,ESTIMATED | | MEDICAL | | | | mL/min/1.56t7Aphc than | | CENTER - | | [...] [address] | [place] | [phone] | | [facility] | | [address] | | | - LABORATORY | | [...] [address] | [place] | [phone] | | [facility] | | [address] | | | - LABORATORY | | [...] [address] | [place] | [phone] | | [facility] | | [address] | | | - LABORATORY | | [...] [address] | [place] | [phone] | | [facility] | | [address] | | | - LABORATORY | | [...] + | [facility] | [address] | [place] | [phone] | | [facility] | | [address] | | | - LABORATORY | | [...] (L) | 6.0 - 7.8 g/dL | [facility] | | | Protein | | | [...] [address] | [place] | [phone] | | [facility] | | [address] | | | - LABORATORY | | [...] [address] | [place] | [phone] | | [facility] | | [address] | | | - LABORATORY | | [...] | POC | | Yellow | [facility] | | | | [...] - 1.030 | [facility] | | | Roxie, | | | [facility] | | [...] [address] | [place] | [phone] | | [facility] | | [address] | | | - LABORATORY | | [...] | | | | BINU MACK MD ([id number]) | | | | | | on [...] | | | | | | [employer] | | | | | [...] ST. | [address] | [place] | [phone] | | [facility] | | [address] | | | - LABORATORY | | | | + + + + + Giselime INR (05/07/2017 11:35 AM PDT) + + [...] [address] | [place] | [phone] | | [facility] | | [address] | | | - LABORATORY | | [...] not | 53 (L)Comment: | >=60 | [facility] | | | | GLOMERULAR FILTRATION | mL/min/1.73m2 | [facility] | | | [place] | RATE,ESTIMATED | | MEDICAL | | | | mL/min/1.41s0Frlt than | | CENTER - | | [...] [address] | [place] | [phone] | | [facility] | | [address] | | | - LABORATORY | | [...] + | [facility] | [address] | [place], [place] | [phone] | | [facility] | | [address] | | | - LABORATORY | | [...] +---+---+ + +-------+ + +---+---+ | docusate-senna (HEATHEROT-S) | Given | 05/16/20 | 1 tablet | | | | 50-8.6 mg per tablet 2 tablet 2 | | 17 8:39 | | | | | tablet, Oral, 2 TIMES DAILY, | | AM PDT | | | | | First dose on [facility] 05/09/17 at 2100 | | [...] PDT | | | | | Starting Sat05/14/17 at 0745, | | | | | [...] | Surgical | | ONCE PRN, Starting Sat05/14/17 | | 17 7:40 | | | [...] | | | injection ONCE PRN, Starting Sat | | 17 7:37 | | | [...]
--- OUTSIDE RECORDS SUMMARY | ~2020-04-29 | XMS | Encounter Summary ---
Demographics + + + | Address | [address] | | | [place] [address] | + + + | Home Phone [...] Providers + +------+ + | Care Beam Warper Name | Role | Phone | + [...] Provider Unknown | | | | | [place], [place] | | | | | | [address] | (Fax) | | | | | [...] Dx); | | | | | [place] [address] | Pacemaker Dual | | | | | [phone] | Chamber, MRI | | | | [...] [place] | | | | | | [id number] | | | | | | | | +--------+ + + + + documented as of this encounter Visit Diagnoses Not on filedocumented in this encounter"
--- OUTSIDE RECORDS SUMMARY | ~2020-04-29 | XMS | Encounter Summary ---
Demographics + + + | Address | [address] | | | [place] [address] | + + + | Home Phone [...] Team Providers + +------+ + | Care Maintenance Engineer Name | Role | Phone | [...] | | | | | follow-up | [address] | [address] | | | | | Pacemaker | [place], | [place], | | | | | HTN | [place] [address] | [place] [address] | | | | | (hypertensio | Phone: | Phone: | | | | | n) CAD | [phone] | [phone] | | | | | (coronary | Fax: | Fax: | | | | | artery | [phone] | [phone] | | | | | disease) | [...] | | | | | | | STRAW HAT PLUNGER OPERATOR IN | | | | | | [...] + + | 06/19/ | Office | [facility] | Basia Bird, | Chronic heart | | 2017 | Visit | CARDIOLOGY [address] | [address] [place] | failure, unspecified | | | | [place], | [place], | heart failure type | | | | [place] [address] | [place] [address] | ([facility]) (Primary Dx) | | | | [phone] | [phone] | | | | | | | [...] inactive as he is living at the [facility] in [facility]. There is no chest pain or chest [...] System Implant; Surgeon: Basia Bird MD; Location: [facility] CV LAB UPPER GASTROINTESTINAL ENDOSCOPY N/A 05/08/2017 Procedure: EGD with Anesthesia; Surgeon: Peter Maciel MD; Location: [facility] MEDICAL PROCED URE UNIT Family History [...] 1 tablet by mouth 3 times da iska as needed for Pain. levothyroxine (SYNTHROID, LEVOTHROID) [...] and lab reports on 05/07/2017-05/16/2017. Refer to hand stonecutter. ASSESSMENT: 1. Fall/syncope with atrial fibrillation with [...] is living at the rehab unit of [facility] in [facility]. There is no chest pain or chest [...] failure. He is in a class IIof [employer] functional class. There is bilateral [...] 4. Mechanical aortic valve replacement [facility] 11/14/2004 shows preserved left ventricular systolic [...] reviewed and edited this note. Melba Thompson V/[place] Signal Officer 06/19/2017 I, Basia Bird MD, personally performed the services described in this documentation, as scribed in my presence and it is both accurate and complete. Melba Thompson, Med Ass t 06/19/2017 10:37 Electronically signed by: Basia Bird MD [facility] 06/19/2017 Portions of this chart may have been created with [employer] voice recognition software. 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
--- OUTSIDE RECORDS SUMMARY | ~2020-04-29 | XMS | Encounter Summary ---
Demographics + + + | Address | [address] | | | [place] [address] | + + + | Home Phone [...] Providers + +------+ + | Care Ferry Terminal Supervisor Name | Role | Phone | [...] | | | | | | | ([facility]) | | | | | | | | | | +--------+--------+ + + + + Encounter Details +--------+ + + + + | Date | Type | Department | Care Team | Description | +--------+ + + + + | 02/27/ | Hospital | [facility] | Jose, | Acute renal failure, | | 2017 - | Encounter | MED [facility] | Tristan Truong MD [address] | unspecified acute | | | | [address] [place] | [address] [place] | renal failure type | | 03/04/ | | [place] [address] | [place] [address] | ([facility]) (Primary Dx); | | 2017 | | [phone] | [phone] | Bradycardia; | | | | | | Hyperkalemia; | | | | | Sy Hopkins MD | Elevated INR; | | | | | [address] | Elevated troponin; | | | | | [place] | Pleural effusion, | | | | | [id number] | left | | | | | [...] [facility], void trials, INR draw, and possibly restarting celexa. Discussed his refusal of celexa during his stay and his daughters desire for him to be on it. Patient will discuss with his daughters and address with [facility] at f/u appointment. Midline removed per nyla fenrandez, bleeding stopped prior to departure. Leg bag [...] might be different from the or iginal. [facility] DISCHARGE SUMMARY Pt. Name/Age/: Jacklyn Siddiqi 81 [...] DISCHARGE INSTRUCTIONS: Follow-up Information Follow up with [facility]. Why: appointment at MD in 7-10 days. Spontaneous voiding trial needs to occur in 7-10 day s Contact information: Tejal Zeped[address] [facility] [address] patient should have voiding trial in 7-10 days (approximately 2 weeks after placement of F oley catheter) Outpatient pro time should be obtained on , 03/07 and then weekly until stable RESULTS: nscription Duane Narrative Transthoracic Echocardiography Report (TTE) Demographics Patient Name AMANDA VILLASENOR Room Number 425 Patient Number [id number] Date of Study 02/28/2017 Visit Number [id number] Referring Physician SANDEEP Nieves Date of 1935 Lifestyle Director TRELL LEWIS RDCS Age 81 year(s) Interpreting MARGE FLOR Card Decorator CRUZITO Rossi MD Gender Male Nurse Stress Electronics Warfare Technician Procedure Type of Study TTE procedure: ECHO [...] 40 mL/m^2 LA Volume: 81.33 ml EF Jocjxlooj27% Left Ventricle Diastolic Dimension: 4.13 cm Septum [...] this 81-year-old male was referred from the [facility] outpatient clinics on the day of assessment for complaints of chest p ain and shortness of breath. At the time of presentation he reportedly been under a lot of anxiety was unhappy with his living situation in [place]. On assessment he was found to h [...] excessively at 450 cc urinary residual. A Elaine catheter was placed and he was began [...] further chest pain then consideration of outpatient [facility] medicine stress testing could be entertained. [...] signed by: Sy Hopkins MD, 03/04/2017 14:50 [facility] Portions of this chart may have been created with [employer] voice recognition software. Occasi onal wrong-word [...] Hopkins MD - 03/03/2017 6:[address] [facility] PMG Hospitalist Progress Note Jacklyn Siddiqi is [...] Intake/Output Summary (Last 24 hours) at 03/03/17 1689 Last data filed at 03/03/17 1800 Gross [...] as outlined above. Sy Hopkins 03/03/2017 18:59 [facility] Portions of this chart may have been created with [employer] voice recognition software. Occasi onal wrong-word or sound-alike substitutions may have occurred due to the inherent carter itations of voice recognition software. Please read the chart carefully and recognize, using context, where these substitutions have occurred arker, Sy Ac MD - 0 03/02/2017 7:[address] [facility] PMG Hospitalist Progress Note Jacklyn Siddiqi is [...] as outlined above. Sy Hopkins 03/02/2017 19:40 [facility] Portions of this chart may have been created with [employer] voice recognition software. Occasi onal wrong-word [...] refer her either to himself, or to mn s son Jacklyn. Sy Ibarra MD - 03/01/2017 1:20 PM PDTFormatting of this note might be different from the orig inal. [facility] PMG Hospitalist Progress Note Jacklyn Siddiqi is [...] as outlined above. Sy Hopkins 03/01/2017 13:20 [facility] Portions of this chart may have been created with [employer] voice recognition software. Occasi onal wrong-word or sound-alike substitutions may have occurred due to the inherent carter itations of voice recognition software. Please read the chart carefully and recognize, using context, where these substitutions have occurred arker, Sy Ac MD - 0 02/28/2017 5:[address] [facility] PMG Hospitalist Progress Note Jacklyn Siddiqi is [...] as outlined above. Sy Hopkins 02/28/2017 17:19 [facility] Portions of this chart may have been created with [employer] voice recognition software. Occasi onal wrong-word [...] Doctor's office: [] Pharmacy list names: [] [facility] TECHNICAL APPLICATIONS SPECIALIST (Prescription Monitoring Program) [] [employer] insurance reported [...] performed and electronically signed by Jerson Kaufman, Mri Supervisor 2016 17:18 Reviewed by: Dolly Rizzo PHARMD [...] Siddiqi : 1935: Age: 81 y.o. MedRec: [id number] Admission date: 02/27/2017 Hospital day #: Physician author: Sy Hopkins MD HISTORY AND PHYSICAL CHIEF COMPLAINT: For chest pain and shortness of breath when being assessed at the [facility] today. HISTORY OF PRESENT ILLNESS: This is a 81 y.o. male with a history of being referred to the emergency room from the MD for assessment of chest pain. The patient currently denies chest pain but by report had com plained of some chest discomfort and shortness of breath at the MD on his assessment. The p atient reported he had been under a lot of stress and anxiety recently because he is unhappy with his living situation in assisted living in [place]. On evaluation here he was found to [...] aortic valve replacement. Medication list from the MD include furosemide 40 mg twic e daily and metolazone 2.5 mg daily. Our last echocardiogram was in 03/2015 which showed ret ained left ventricular function. His prosthetic aortic valve appeared to be functioning nor servando. PAST MEDICAL and SURGICAL HISTORY: Past Medical History Diagnosis Date H/O aortic valve replacement 2004 [facility] AVR INR goal is 2-3, surgery done at [facility] Hypertension Liver cirrhosis (HCC) CVA (cerebral infarction) -2014 lacunar (not stated as new nor old) Dementia Alcoholic cirrhosis (HCC) 2003 CT scan 2003 at [facility] Endocarditis 2009 Enterococcus 6 weeks Amp + Gent PSA elevation 2009 Pt declined Bx then Peripheral vertigo 2012 BPPV left Venous ulcer 2013 Leg Retinal detachment 2010 CAD (coronary artery disease) 2005 Had CABG to LAD (for 80-90% LAD) surgery done at [facility] Pulmonary HTN (HCC) Severe on Echo 2013 Diastolic CHF (HCC) Echo 2014 EF 68, ascites, pulm HTN Over-anticoagulated 04/01/2015 Past Surgical History Procedure Laterality Date Cardiac surgery 2005 MD says CABG and [facility] AVR FAMILY [...] mg in the evening for 1 w [place]. After 1 week resume your normal dose [...] received 15 g of Kayexalate emergency room. Elaine c atheter was placed with expectation of [...] signed by: Sy Hopkins MD 02/27/2017 16:43 [facility] Portions of this chart may have been created with [employer] voice recognition software. Occasi onal wrong-word or sound-alike substitutions may have occurred due to the inherent carter itations of voice recognition software. Please read the chart carefully and recognize, using context, where these substitutions have occurred documented in this enc [facility] ED Notes Efe Rosado RN - 02/27/2017 5:23 PM PDTPt to be taken upstairs on monitor with R N, all personal belongings. 5 :24 PM PDTTristan Garcia MD - 02/27/2017 1:17 PM PDTFormatting of this note might b e different from the original. [facility] Jacklyn Siddiqi Emergency Department Encounter Note [address] [place] [address] PCP:No Physician on file [id number] CHIEF COMPLAINT: Chief Complaint Patient presents with Chest Pain ED Room: ED01/ED01 HPI Jacklyn Siddiqi is a 81 y.o. male who presents to the Emergency Department by ambulance from MD for evaluation. This patient was being seen in the MD for routine appointment today an d complained [...] goal is 2-3, surgery done at [facility] Hypertension Liver cirrhosis (HCC) CVA (cerebral infarction) -2014 lacunar (not stated as new nor old) Dementia Alcoholic cirrhosis (HCC) 2003 CT scan 2003 at [facility] Endocarditis 2009 Enterococcus 6 weeks Amp + Gent PSA elevation 2008 Pt declined Bx then Peripheral vertigo 2012 BPPV left Venous ulcer 2013 Leg Retinal detachment 2010 CAD (coronary artery disease) 2005 Had CABG to LAD (for 80-90% LAD) surgery done at [facility] Pulmonary HTN (HCC) Severe on Echo [...] mg in the evening for 1 w [place]. After 1 week resume your normal dose [...] Portions of this chart were created with [employer] voice recognition software. Inadvertent so und alike [...] She is requesting an order stating that [facility] should administer Jacklyn's medications. Spoke with Dr Hopkins. He reports he will write the order. Order faxed to [facility]. Transmitted ok. Dr Hopkins requests a [facility] follow up appointment in 10 days for catheter removal. His PCP at the MD is Aleah Smith with [facility]". This ad writer called the [facility] spoke with Padmini. She will put [...] Patient has difficulty recalling words, delayed responses. Elaine draining sufficient amou nt. CXR completed. Large [...] pt has good clear yellow output from elaine catheter. Pt is sleeping we ll this [...] up to chair with SBA lan of [facility] Damaris lindo RN - 03/01/2017 6:53 [...] Restarted on co umadin d/t improving INR. Elaine patent with adequate output. Bed alarm remains in place for safety. One person assist to chairs for meals. Remains free from falls. lan of [facility] Anamaria arndt - 03/01/2017 10:29 AM PDTDischarge Planning: This CALL CENTER AGENT spoke with Jacklyn's son Jacklyn outside the room today. Son reports his dad does very well @ [employer] [place]. That being sad he complains of not [...] he will transport his father back to [facility] when stable for d ischarge. Electronically signed by: Anamaria Madison 03/01/2017 10:33 Received call from Leanne Steam Meter Reader @ [facility] [phone]. She had questions about admitting diagnosis and [...] valve click, remains on telemetry. IVFs infusing. Elaine patent with adequate output. A M labs [...] lasix. Patient very concerned about returning to [facility], it makes him "sick" to think about. Steam Meter Reader working with patient. Per melissa starkey's permission spoke to one of his daughters and an employee/friend from current SNF info rming of patient's condition. Patient's INR was 5.0 and given vitamin K. lan of Care - Anamaria Nunes Rob - 02/28/2017 3:28 PM PDTDischarge Planning: This CALL CENTER AGENT spoke with Jacklyn at his bedside regarding discharge. Jacklyn is a resident @ [facility] in [place]. Jacklyn uses a cane or power scooter to assist with ambulation. Jacklyn is a non service connected . His PCP is @ [facility]. Message left at the [facility] office regarding admission. This ad writer called and spoke with Exec. Director Jazlyn and [employer]. They report they will accept Jacklyn back [...] child, he takes him to appointments and [employer] store etc. Message left for son Jacklyn to return this writers call. CM to follow up. Electronically signed by: Anamaria Madisno 02/28/2017 15:52 lan of Care - Jennifer [...] Iv infusing into L ac without problems, elaine To gravity draining amts of urine. 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 | [address] | [place] | [phone] | | [facility] | | [address] | | | - LABORATORY | | [...] (H) | 7 - 18 mg/dL | [facility] | | | | [...] not | 39 (L)Comment: | >=60 | [facility] | | | | GLOMERULAR FILTRATION | mL/min/1.73m2 | [facility] | | | SUDANESE | RATE,ESTIMATED | | MEDICAL | | | | mL/min/1.82y9Frqv than | | CENTER - | | [...] ST. | [address] | [place], [place] | [phone] | | [facility] | | [address] | | | - LABORATORY | | [...] [address] | [place] | [phone] | | [facility] | | [address] | | | - LABORATORY | | [...] + | [facility] | [address] | [place] | [phone] | | [facility] | | [address] | | | - LABORATORY | | [...] | | | Oral Anticoagulation | | [facility] | | | | Range: 2.0 - [...] [address] | [place] | [phone] | | [facility] | | [address] | | | - LABORATORY | | [...] + | [facility] | [address] | [place] | [phone] | | [facility] | | [address] | | | - LABORATORY | | [...] - 1.030 | [facility] | | | [place], | | | [facility] | | [...] ST. | [address] | [place], [place] | [phone] | | [facility] | | [address] | | | - LABORATORY | | [...] + | Duane, Rad Results In - 03/03/2017 1:24 PM PDT [...] + | [facility] | [address] | [place] | [phone] | | [facility] | | [address] | | | - LABORATORY | | [...] | | | | | | [facility] | | | | [...] [address] | [place] | [phone] | | [facility] | | [address] | | | - LABORATORY | | [...] [address] | [place] | [phone] | | [facility] | | [address] | | | - LABORATORY | | [...] 1.63 (H) | 0.60 - 1.30 | [facility] | | | | | mg/dL | [facility] | | | | | | MEDICAL | | | | | | CENTER - | | | | | | LABORATORY | | + + + + + + | eGFR if not | 41 (L)Comment: | >=60 | [facility] | | | | GLOMERULAR FILTRATION | mL/min/1.73m2 | [facility] | | | SUDANESE | RATE,ESTIMATED | | MEDICAL | | | | mL/min/1.13u7Tckq than | | CENTER - | | [...] + | [facility] | [address] | [place] | [phone] | | [facility] | | [address] | | | - LABORATORY | | [...] [address] | [place] | [phone] | | [facility] | | [address] | | | - LABORATORY | | [...] + | [facility] | [address] | [place] | [phone] | | [facility] | | [address] | | | - LABORATORY | | [...] + | [facility] | [address] | [place] | [phone] | | [facility] | | [address] | | | - LABORATORY | | [...] not | 39 (L)Comment: | >=60 | [facility] | | | | GLOMERULAR FILTRATION | mL/min/1.73m2 | [facility] | | | SUDANESE | RATE,ESTIMATED | | MEDICAL | | | | mL/min/1.71n0Igkz than | | CENTER - | | [...] [address] | [place] | [phone] | | [facility] | | [address] | | | - LABORATORY | | [...] [address] | [place] | [phone] | | [facility] | | [address] | | | - LABORATORY | | [...] + | [facility] | [address] | [place] | [phone] | | [facility] | | [address] | | | - LABORATORY | | [...] [address] | [place] | [phone] | | [facility] | | [address] | | | - LABORATORY | | [...] + | eGFR if not | 28 (L) | >=60 | [facility] | | | | | mL/min/1.73m2 | [facility] | | | [place]AN[place] | | | MEDICAL | | | [...] + | [facility] | [address] | [place] | [phone] | | [facility] | | [address] | | | - LABORATORY | | [...] Demographics Patient Name SIDDIQI | | | EATON Room Number 425 Patient Number | | | [id number] Date of Study 02/28/2017 Visit Number | | | [id number] Referring Physician | | | SANDEEP Ac Number Date of 1935 | | | Lifestyle Director TRELL LEWIS [facility] Age | | | 81 year(s) Interpreting MARGE FLOR | | | Card Decorator | | | CRUZITO BIRD MD Gender Male Nurse | | | Stress Electronics Warfare Technician | | | Procedure Type of Study [...] Volume: 81.33 ml | | | EF Vwktwcrjn95% Left | | | Ventricle Diastolic Dimension: [...] Volume: 81.33 ml | | | EF Uziifbdgc81% | | | | | | Left [...] Room Number 425 Patient | | Number [id number] Date of Study 02/28/2017 Visit Number [id number] | | Referring Physician SANDEEP Ac Number Date of | | 1935 Lifestyle Director TRELL LEWIS RDCS Age 81 year(s) | | Interpreting MARGE FLOR Card Decorator | | CRUZITO BIRD MD Gender Male [...] | | LA Volume: 81.33 ml EF Glsxxaupe23% | | Left Ventricle Diastolic Dimension: 4.13 [...] LA Volume: 81.33 ml | | EF Fzpfmoigp80% | | | | Left Ventricle | [...] + | Duane, Chase Results In - 02/28/2017 1:38 PM PDT [...] + | [facility] | [address] | [place] | [phone] | | [facility] | | [address] | | | - LABORATORY | | [...] | | | | | | [employer] | | | | | [...] [address] | [place] | [phone] | | [facility] | | [address] | | | - LABORATORY | | [...] + | [facility] | [address] | [place] | [phone] | | [facility] | | [address] | | | - LABORATORY | | [...] | Consistent with previous | | [facility] | | | | results. | [...] + + | eGFR if not | 25 (L)Comment: | >=60 | [facility] | | | | GLOMERULAR FILTRATION | mL/min/1.73m2 | [facility] | | | SUDAN[facility] | RATE,ESTIMATED | | MEDICAL | | | | mL/min/1.33i0Kzxp than | | CENTER - | | [...] + | [facility] | [address] | [place] | [phone] | | [facility] | | [address] | | | - LABORATORY | | [...] + | [facility] | [address] | [place] | [phone] | | [facility] | | [address] | | | - LABORATORY | | [...] + | [facility] | [address] | [place] | [phone] | | [facility] | | [address] | | | - LABORATORY | | [...] | | | | | | [employer] | | | | | [...] [address] | [place] | [phone] | | [facility] | | [address] | | | - LABORATORY | | [...] - 1.030 | [facility] | | | [place], | | | [facility] | | [...] + | [facility] | [address] | [place] | [phone] | | [facility] | | [address] | | | - LABORATORY | | [...] into the clinical context for interpretation. | [facility] | | | - LABORATORY | + + + + + + + + | Performing | Address | City/State/Zipcode | Phone Number | | Organization | | | | + + + + + | [facility] | [address] | [place] | [phone] | | [facility] | | [address] | | | - LABORATORY | | [...] | | | Urine | | | [place] | | | [...] [address] | [place] | [phone] | | [facility] | | [address] | | | - LABORATORY | | | | + + + + + B Type Natriuretic Peptide (02/27/2017 2:19 PM PDT) + +---------+ + + + | Component | Value | Ref Range | Performed | Pathologist | | | | | At | Signature | + +---------+ + + + | BNP | 368 (H) | <100 pg/mL | [facility] | [...] ST. | [address] | [place], [place] | [phone] | | [facility] | | [address] | | | - LABORATORY | | [...] [address] | [place] | [phone] | | [facility] | | [address] | | | - LABORATORY | | [...] ST. | [address] | [place], [place] | [phone] | | [facility] | | [address] | | | - LABORATORY | | [...] | | | | | | [employer] | | | | | [...] [address] | [place] | [phone] | | [facility] | | [address] | | | - LABORATORY | | [...] + + | eGFR if not | 22 (L)Comment: | >=60 | [facility] | | | | GLOMERULAR FILTRATION | mL/min/1.73m2 | [facility] | | | [facility] | RATE,ESTIMATED | | MEDICAL | | | | mL/min/1.04r1Sagt than | | CENTER - | | [...] 3.7 | 3.2 - 5.0 g/dL | [facility] | | | | | [...] + | [facility] | [address] | [place] | [phone] | | [facility] | | [address] | | | - LABORATORY | | [...] smear review. | [facility] | | | [facility] | | [facility] | | | - LABORATORY | + + + + + + + + | Performing | Address | City/State/Zipcode | Phone Number | | Organization | | | | + + + + + | [facility] | [address] | [place], [place] | [phone] | | [facility] | | [address] | | | - LABORATORY | | [...] | | | | | BINU CHARLTON ([id number]) on | | | | | | [...] Dual Chamber, MRI compatible, 05/14/17 [facility] Cardiac pacemaker | | in situ | [...] | | | | | CONTINUOUS, Starting Rachna 02/28/17 | | | | | | [...] | | | | | Oral, ONCE, [facility] 02/28/17 at 0815, | | AM PDT [...] | | | | | Insomnia, Starting Sat17 at | | PM PDT | | [...] | | | | | reorder) on Sat03/04/17 at 0830, | | | | | [...]
[~2020-04-29 18:38] MED LIST changes: +A AND D OINTM42.5 GM TOP; +AQUAPHOR99 GM TOP; +CEFDINIR300 MG PO; +GUAIFENESIN DM S5 ML PO; +PREDNISONE20 MG PO
--- OUTSIDE RECORDS SUMMARY | 2020-04-29 18:42 | XMS ---
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 - PATIENT PCP IS DR SAIMA ANDERSON AT THE [facility]. 02/12/2018 [facility] Care Recommendation: This patient has had 5 or more Emergency Department visits in the last 12 months. Patient requires education on the scope and purpose of the ED as an acute care provider not a Primary Care Provider and should not be utilized for chronic conditions. If patient returns to ED please contact Community Health WorkerAnamaria at [phone]. These are guidelines and the provider should exercise clinical judgment when providing care. E.D. VISIT COUNT (12 MO.) 2 [facility]. TOTAL 2 NOTE: Visits indicate total known visits. 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) use of inhaled steroids - snf (current) use of inhaled steroids - Other specified disorders of veins - Presence of prosthetic heart valve - Presence of cardiac pacemaker - Hypoxemia - Disorientation, unspecified - Other prison (current) drug therapy - Unspecified hearing loss, unspecified ear - superintendent container terminal (current) use of anticoagulants - Abnormal coagulation profile - Other superintendent container terminal (current) drug therapy - Latex allergy status - Acute on chronic diastolic (congestive) heart failure - Presence of cardiac pacemaker - Unspecified hearing loss, unspecified ear - Contact with and (suspected) exposure to other viral communic - Presence of aortocoronary bypass graft - Abnormal coagulation profile - Disorientation, unspecified - Unspecified dementia without behavioral disturbance - Other chronic pain - Contact with and (suspected) exposure to other viral communic - Other chronic pain - Other specified disorders of veins - superintendent container terminal (current) use of anticoagulants - Gout, unspecified - Hypothyroidism, unspecified - Latex allergy status - Hypothyroidism, unspecified - Presence of prosthetic heart valve - Presence of aortocoronary bypass graft - Unspecified dementia without behavioral disturbance - Acute on chronic diastolic (congestive) heart failure - Chronic obstructive pulmonary disease with (acute) exacerbati - Gout, unspecified - Hypoxemia [email or web address]
== END 2020-04-29 20:08 | disposition home or self-care (01) ==
LOC: ED 18:38
DX: S91.114A Laceration without foreign body of right lesser toe(s) without damage to nail, initial encounter (principal); E78.5 Hyperlipidemia, unspecified; I11.0 Hypertensive heart disease with heart failure; I50.9 Heart failure, unspecified; Z91.040 Latex allergy status; Z79.899 Other long term (current) drug therapy; Z79.01 Long term (current) use of anticoagulants; W27.8XXA Contact with other nonpowered hand tool, initial encounter
CPT/HCPCS: 99283

== ENCOUNTER 2020-05-18 09:35 | Inpatient (IN) | payer MEDICARE, OTHER ==
[~2020-05-18] VITALS: Ht 167.6 cm; Wt 97.1 kg
--- OUTSIDE RECORDS SUMMARY | ~2020-05-18 | XMS | Encounter Summary ---
Demographics + + + | Address | [address] | | | [place] [address] | + + + | Home Phone | | + + + | Preferred Language | Unknown | + + + | Marital Status | | + + + | Confucianist Affiliation | 1061 | + + + | Race | Unknown | + + + | Ethnic Group | Unknown | + + + Author + + + | Author | [facility] | | | and [place] | + + + | Organization | [facility] | | | [...] Team Providers + +------+ + | Care Business Information Manager Name | Role | Phone | + +------+ + | Antonio Paluino MD | PCP | | + +------+ + Reason for Visit + + + | Reason | Comments | + + + | Device Check | | | (Remote) | | + + + Encounter Details +--------+ + + + + | Date | Type | Department | Care Team | Description | +--------+ + + + + | 10/19/ | Implant | [facility] | Cruzito Bird, | Remote Device | | 2019 | Monitor | CARDIOLOGY [address] | Interrogation | | | | [address], | [place], | (Primary Dx); | | | | [place] [address] | [place] [address] | Pacemaker Dual | | | | [phone] | [phone] | Chamber, MRI | | | | [...] encounter Procedure Notes Cruzito Bird MD - 10/19/2019 11:59 PM PSTAssociated Order(s): DEVICE INTERROGATION- R EMOTEProcedure(s): DEVICE INTERROGATION- REMOTEPre-Procedure Diagnose(s): Pacemaker reprogra mming/check; Pacemaker; Tachycardia-bradycardia syndrome (HCC)Date of Remote Interrogation: 07/22/19 Refer to Paceart documentation and remote PDF scanned into [facility] for remote interrogation re sults. Data collected by Nancy Dougherty, RN, RN Presenting rhythm: sinus rhythm atrial paced ventricular sensed between 64-65 beats. 0 mode switch episodes accounting for 0% of the time. No episodes. PVC singles 2500 PVC singles 833/month PVC runs 0 PVC runs 0/month Histogram good. Battery longevity 9.8-10.1 years. Concern for high threshold at 1.75 @ 0.4ms and no sensing on atrial lead only. Johnny Joiner notified and patient scheduled for device check 07/27/19. documented in this encounter Plan of Treatment +--------+ + + + + | Date | Type | Specialty | Care Team | Description | +--------+ + + + + | 07/20/ | Implant | Cardiology | Cruzito Bird, | Remote Device | | 2019 | Monitor | | [address] [facility] | Interrogation | | | | | [place], | (Primary Dx); | | | | | [place] [address] | Pacemaker Dual | | | | | [phone] | Chamber, MRI | | | | | | compatible, 05/14/17 | | | | | | [facility]; | | | | | | 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) | +--------+ + + + + | 01/05/ | Office | Cardiology | Emely Gabriel, | | | 2020 | Visit | | BEE FARMER [address] | | | | | | St [place], [place] | | | | | | [address] | | | | | | | | +--------+ + + + + documented as of this encounter Procedures + +--------+ + + + | Procedure Name | Priori | Date/Time | Associated Diagnosis | Comments | | | ty | | | | + +--------+ + + + | DEVICE | Routin | 10/19/2019 | Remote Device | Results for this | | INTERROGATION- | e | 11:59 PM | Interrogation | procedure are in the | | REMOTE | | PST | Pacemaker Dual | results section. | | | | | Chamber, MRI | | | | | | compatible, 05/14/17 | | | | | | [facility] | | | | | | 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) | | + +--------+ + + + documented in this encounter Results Device Interrogation - Remote (10/19/2019 11:59 PM PST) + + + | Narrative | Performed At | + + + | Cruzito | KAREN | | MD [facility] 07/30/2019 6:17Date of Remote Interrogation: | | | 07/22/19 Refer to Paceart documentation and remote PDF scanned into | | | [facility] for remote interrogation results. Data collected by Nancy Rossi | | | SAMEER Dougherty, RN Presenting rhythm: sinus rhythm atrial paced | | | ventricular sensed between 64-65 beats.0 mode switch episodes | | | accounting for 0% of the time.No episodes. PVC singles 2500 | | | PVC singles 833/monthPVC runs 0 | | | PVC runs 0/monthHistogram good. Battery longevity 9.8-10.1 | | | years.Concern for high threshold at 1.75 @ 0.4ms and no sensing on | | | atrial lead only.Johnny Joiner notified and patient scheduled for device | | | check 07/27/19. | | |PVC runs 0 PVC runs 0/month | | |Histogram good. Battery longevity 9.8-10.1 years. | | |Concern for high threshold at 1.75 @ 0.4ms and no sensing on | | |atrial lead only. | | |Johnny notified and patient scheduled for device check | | |07/27/19. | | | | | + + [...]
--- OUTSIDE RECORDS SUMMARY | ~2020-05-18 | XMS | Encounter Summary ---
Demographics + + + | Address | [address] | | | [place] [address] | + + + | Home Phone | | + + + | Preferred Language | Unknown | + + + | Marital Status | | + + + | Yarsanism Affiliation | 1061 | + + + | Race | Unknown | + + + | Ethnic Group | Unknown | + + + Author + + + | Author | [facility] | | | and [place] | + + + | Organization | [facility] | | | [...] Team Providers + +------+ + | Care Fish Net Stringer Name | Role | Phone | + +------+ + | Antonio Paulino MD | PCP | | + +------+ + Encounter Details +--------+ + + + + | Date | Type | Department | Care Team | Description | +--------+ + + + + | 01/12/ | Abstract | [facility] [place] | Emely Gabriel, | | | 2019 | | CARDIOLOGY [address] | FLITCH HANGER [address] | | | | | [place], | [address] [place] | | | | | [place] [address] | [address] | | | | | [phone] | | | +--------+ + + + [...] | 2020 | Monitor | | [address] [facility] | Interrogation | | | | | [place], | (Primary Dx); | | | | | [place] [address] | Pacemaker Dual | | | | | [phone] | Chamber, MRI | | | | | | compatible, 05/14/17 | | | | | | [facility]; | | | | | | 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) | +--------+ + + + + | 01/05/ | Office | Cardiology | Emely Gabriel, | | | 2020 | Visit | | FLITCH HANGER [address] | | | | | | St [place], [place] | | | | | | [address] | | | | | | | | +--------+ + + + + documented as of this encounter Procedures + +--------+ + + + | Procedure Name | Priori | Date/Time | Associated Diagnosis | Comments | | | ty | | | | + +--------+ + + + | EXTERNAL LAB: FREE | Routin | 01/07/2020 | | Results for this | | THYROXINE INDEX | e | | | procedure are in the | | | | | | results section. | + +--------+ + + + | EXTERNAL LAB: TSH | Routin | 01/07/2020 | | Results for this | | | e | | | procedure are in the | | | | | | results section. | + +--------+ + + + documented in this encounter Results External Lab: Free Thyroxine Index (01/07/2020) + +-------+ + + + | Component | Value | Ref Range | Performed | Pathologist | | | | | At | Signature | + +-------+ + + + | Free | 1.04 | 0.71 - 1.7 | EXTERNAL | | | Thyroxine | | | LAB | | | Index, | | | | | | External | | | | | + +-------+ + + + + +---------+ + + | Performing | Address | City/State/Zipcode | Phone Number | | Organization | | | | + +---------+ + + | EXTERNAL LAB | | | | + +---------+ + + External Lab: TSH (01/07/2020) + + + + + + | Component | Value | Ref Range | Performed | Pathologist | | | | | At | Signature | + + + + + + | TSH, | 11.37 (A) | 0.27 - 4.2 | EXTERNAL | | | External | | | LAB | | + + + + + + + + | Specimen | + + | Blood | + + + +---------+ + + | Performing | Address | City/State/Zipcode | Phone Number | | Organization | | | | + +---------+ + + | EXTERNAL LAB | | | | + +---------+ + + documented in this encounter Visit Diagnoses Not on filedocumented in this encounter"
--- OUTSIDE RECORDS SUMMARY | ~2020-05-18 | XMS | Encounter Summary ---
Demographics + + + | Address | [address] | | | [place] [address] | + + + | Home Phone | | + + + | Preferred Language | Unknown | + + + | Marital Status | | + + + | Episcopalian Affiliation | 1061 | + + + | Race | Unknown | + + + | Ethnic Group | Unknown | + + + Author + + + | Author | [facility] | | | and [place] | + + + | Organization | [facility] | | | [...] Team Providers + +------+ + | Care Hook And Eye Sewing Machine Operator Name | Role | Phone | + +------+ + PCP | Unavailable | + +------+ + Encounter Details +--------+ + + + + | Date | Type | Department | Care Team | Description | +--------+ + + + + | 12/04/ | Hospital | [facility] GENERIC OP | Conversion | Aortic valve | | 2004 | Encounter | CONVERSION [address] | Transaction, | disorder | | | | [address] | Provider Unknown | | | | | [place], [place] | [phone] | | | | | [address] | | | | | | [phone] | | | +--------+ + + + [...] Dx); | | | | | [place] [address] | Pacemaker Dual | | | | | [phone] | Chamber, MRI | | | | | | compatible, 05/14/17 | | | | | | [facility]; | | | | | | 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) | +--------+ + + + + | 01/05/ | Office | Cardiology | Emely Gabriel, | | | 2020 | Visit | | CALKER [address] | | | | | | [place] | | | | | | [address] | | | | | | | | +--------+ + + + + documented as of this encounter Visit Diagnoses + + | Diagnosis | + + | Aortic valve disorder Aortic valve disorders | + + | Remote Device Interrogation - Primary Fitting and adjustment of cardiac pacemaker | + + | Pacemaker Dual Chamber, MRI compatible, 05/14/17 [facility] Cardiac pacemaker | | in situ | + + | 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
--- OUTSIDE RECORDS SUMMARY | ~2020-05-18 | XMS | Encounter Summary ---
Demographics + + + | Address | [address] | | | [place] [address] | + + + | Home Phone | | + + + | Preferred Language | Unknown | + + + | Marital Status | | + + + | Mormonism Affiliation | 1061 | + + + | Race | Unknown | + + + | Ethnic Group | Unknown | + + + Author + + + | Author | [facility] | | | and [place] | + + + | Organization | [facility] | | | [...] Team Providers + +------+ + | Care Beauty Director Name | Role | Phone | + +------+ + PCP | Unavailable | + +------+ + Encounter Details +--------+ + + + + | Date | Type | Department | Care Team | Description | +--------+ + + + + | 07/24/ | Hospital | [facility] | Mauricio Goldberg | | | 2000 | Encounter | MED CTR GENERIC OP | MD [address] | | | | | CONV DEPT [address] | [address] | | | | | [place], | [place] [address] | | | | | [place] [address] | [phone] | | | | | [phone] | | | +--------+ + + + [...] | | 2020 | Monitor | | MD [address] | Interrogation | | | | | [place], | (Primary Dx); | | | | | [place] [address] | Pacemaker Dual | | | | | [phone] | Chamber, MRI | | | | | | compatible, 05/14/17 | | | | | | [facility]; | | | | | | 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) | +--------+ + + + + | 01/05/ | Office | Cardiology | Emely Gabriel, | | | 2020 | Visit | | [address] | | | | | | [place] | | | | | | [address] | | | | | | | | +--------+ + + + + documented as of this encounter Visit Diagnoses Not on filedocumented in this encounter"
--- OUTSIDE RECORDS SUMMARY | ~2020-05-18 | XMS | Encounter Summary ---
Demographics + + + | Address | [address] | | | [place] [address] | + + + | Home Phone | | + + + | Preferred Language | Unknown | + + + | Marital Status | | + + + | Oriental Orthodox Affiliation | 1061 | + + + | Race | Unknown | + + + | Ethnic Group | Unknown | + + + Author + + + | Author | [facility] | | | and [place] | + + + | Organization | [facility] | | | [...] Team Providers + +------+ + | Care Furnace Fitter Name | Role | Phone | + +------+ + | Antonio Paulino MD | PCP | | + +------+ + Reason for Visit +--------+--------+ + | Reason | Onset | Comments | | | Date | | +--------+--------+ + | Other | 01/26/ | Atrial Lead in high output mode. | | | 2020 | | +--------+--------+ + Encounter Details +--------+ + + + + | Date | Type | Department | Care Team | Description | +--------+ + + + + | 01/26/ | Telephone | [facility] [place] | Cruzito Bird, | Other (Atrial Lead | | 2020 | | CARDIOLOGY [address] | MD [address] | in high output mode. | | | | [place], | [place], | ) | | | | [place] [address] | [place] [address] | | | | | [phone] | [phone] | | | | | | | [...] + + documented as of this encounter Miscellaneous Notes Telephone Encounter - Nancy Dougherty RN - 01/27/2020 4:20 PM PDTReport received and shows device no longer in high output. Electronically signed by: Nancy Dougherty RN 01/27/2020 4:21 PM elephone Encounter - Re alvaro, Nancy Rossi RN - 01/27/2020 3:42 PM PDTCalled to give results to patient. Spoke to Johnny Li And explained atrial lead is in high output and we would like to have patient send in a report to recheck atrial output. Johnny Li Will call over to patients caregiver and have [facility] send a manual report. Electronically signed by: Nancy Dougherty RN 01/27/2020 3:53 PMElectron marlene signed by Nancy Dougherty RN at 01/27/2020 3:53 PM PDTdocumented in this encounter Plan of Treatment +--------+ + + + + | Date | Type | Specialty | Care Team | Description | +--------+ + + + + | 07/20/ | Implant | Cardiology | Cruzito Brid, | Remote Device | 2019 | Monitor | | [address] [facility] | Interrogation | | | | | [place], | (Primary Dx); | | | | | [place] [address] | Pacemaker Dual | | | | | [phone] | Chamber, MRI | | | | | | compatible, 05/14/17 | | | | | | [facility]; | | | | | | 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) | +--------+ + + + + | 01/05/ | Office | Cardiology | Emely Gabriel, | | | 2020 | Visit | | [address] | | | | | | [place] | | | | | | [address] | | | | | | | | +--------+ + + + + documented as of this encounter Visit Diagnoses Not on filedocumented in this encounter"
--- OUTSIDE RECORDS SUMMARY | ~2020-05-18 | XMS | Encounter Summary ---
Demographics + + + | Address | [address] | | | [place] [address] | + + + | Home Phone | | + + + | Preferred Language | Unknown | + + + | Marital Status | | + + + | Yazdanism Affiliation | [id number] | + + + | Race | Unknown | + + + | Ethnic Group | Unknown | + + + Author + + + | Author | [facility] | | | and [place] | + + + | Organization | [facility] | | | and [...] Team Providers + +------+ + | Care Sales Agent Protective Service Name | Role | Phone | + +------+ + | Antonio Paulino MD | PCP | | + +------+ + Reason for Visit + + + | Reason | Comments | + + + | Follow-up | | + + + | Bradycardia | | + + + | Tachycardia | | + + + | Device Check | | | (In-office) | | + + + | Atrial Fibrillation | | + + + Encounter Details +--------+---------+ + + + | Date | Type | Department | Care Team | Description | +--------+---------+ + + + | 09/19/ | [facility] | Emely Gabriel, | Tachycardia-bradycar | | 2017 | Visit | CARDIOLOGY [address] | TECHNICAL DESIGNER [address] | pablo syndrome (HCC) | | | | [place], | [place], [place] | (Primary Dx); | | | | [place] [phone] | [id number] | Coronary artery | | | | [phone] | | disease involving | | | | | | tejon coronary | | | | | | artery of tejon | | | | | | heart without angina | | | | | | pectoris; | | | | | | Persistent atrial | | | | | | fibrillation ([facility]); | | | | | | Chronic diastolic | | | | | | congestive heart | | | | | | failure ([facility]); | | | | | | Essential | | | | | | hypertension; | | | | | | Pacemaker | | | | | | reprogramming/check; | | | | | | Pacemaker Dual | | | | | | Chamber, MRI | | | | | | compatible, 05/14/17 | | | | | | [facility] | +--------+---------+ + + + Social History [...] + + + | Blood Pressure | 100/50 | 09/19/2017 11:53 AM | | | | | PST | | + + + + + | Pulse | 62 | 09/19/2017 11:53 AM | regular | | | | PST | | + + + + + | Temperature | - | - | | + + + + + | Respiratory Rate | 11 | 09/19/2017 11:53 AM | | | | | PST | | + + + + + | Oxygen Saturation | - | - | | + + + + + | Inhaled Oxygen | - | - | | | Concentration | | | | + + + + + | Weight | 84.5 kg (186 lb 4.6 | 09/19/2017 11:53 AM | | | | oz) | PST | | + + + + + | Height | 167.6 cm (5' 6") | 09/19/2017 11:53 AM | | | | | PST | | + + + + + | Body Mass Index | 30.07 | 09/19/2017 11:53 AM | | | | | PST | | + + + + + [...] documented as of this encounter Progress Notes Emely Gabriel ARNP - 09/19/2017 12:45 PM PSTFormatting of this note might be different fr om the original. PATIENT NAME: Johnny Siddiqi : 1935: AGE: 82 y.o. PRIMARY CARE: Antonio Paulino MD CC: OUTPATIENT FOLLOW UP VISIT Date of Service: 09/19/2017 HISTORY OF PRESENT ILLNESS: Johnny Siddiqi is a 82 y.o. 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 dual-chamber pacemaker implantation o n 05/14/17, CAD, post CABG 1 with DON to LAD and mechanical aortic valve replacement in 09 03, heart failure with preserved ejection fraction, stage III chronic kidney disease, obesit y, inactivity, COPD. He is being seen today for follow up and device interrogation. He was last seen 06/19/17 at which time he had no changes in his medical regimen. Since th at time, being seen for a poorly healing sore of the lower extremity. He reports higher ener gy levels since his procedure. He has had a good energy level. He tries to stay active. Grzegorz johnson enjoys checkers and hearts on the computer and watches TV in his spare time. He has a career services coordinator that is with him about 4 hours daily. His son, Johnny, who accompanies him, also chec ks on him daily. He has not had any chest pain or discomfort at rest or with exertion. He has not noticed shortness of breath. He has not had any lightheadedness or dizziness. He h as not noticed palpitations. He has not had leg swelling. He is able to sleep laying down at night without any symptoms of shortness of breath. He has been working on weight loss an d dietary changes and limiting carbohydrates and has made significant progress. MEDICAL, SURGICAL, AND PERSONAL HISTORY Past Medical, Surgical, Family, and Social History are reviewed in EPIC. CURRENT PROBLEMS Patient Active Problem List Diagnosis H/O aortic valve replacement Hypertension Liver cirrhosis Dementia Alcoholic cirrhosis Coronary artery disease involving tejon coronary artery of tejon heart without angina pectoris Pulmonary HTN Diastolic CHF Over-anticoagulated Acute renal failure (ARF) Anemia CRUZITO (obstructive sleep apnea) Persistent atrial fibrillation Wound of left leg Venous stasis of both lower extremities Hard of hearing Tachycardia-bradycardia syndrome Pacemaker reprogramming/check Pacemaker Dual Chamber, MRI compatible, 05/14/17 [facility] CURRENT MEDICATIONS Current Outpatient Prescriptions Medication Sig Dispense Refill acetaminophen (TYLENOL) 500 mg tablet Take 1,000 mg by mouth every 8 hours as needed fo r Pain. albuterol 90 mcg/puff inhaler Inhale 2 puffs into the lungs 3 times daily as needed for Wheezing. amiodarone (PACERONE) 200 mg tablet Take 1 tablet by mouth Daily. 30 tablet 1 artificial tears (REFRESH PLUS) 0.5% SOLN Place 1 drop into both eyes 4 times daily as needed (for dry eyes). atorvaSTATin (LIPITOR) 10 mg tablet Take 10 mg by mouth nightly. benzonatate (TESSALON) 100 mg capsule Take 100 mg by mouth Twice daily as needed for C ough. bisacodyl (DULCOLAX) [address] 10 mg rectally as needed for Constipation. bisacodyl (DULCOLAX) 5 mg EC tablet Take 5 mg by mouth as needed for Constipation. budesonide-formoterol (SYMBICORT) 160-4.5 mcg/puff inhaler Inhale 2 puffs into the lung s 2 times daily. docusate sodium (COLACE) 250 MG capsule Take 250 mg by mouth Daily. donepezil (ARICEPT) 10 MG tablet Take 5 mg by mouth. doxycycline (VIBRAMYCIN) 100 mg capsule Take 100 mg by mouth 2 times daily. ferrous sulfate 325 mg tablet Take 325 mg by mouth daily (with breakfast). Patient take s three times weekly on Mon, Wed, Sat furosemide (LASIX) 40 mg tablet Take 1 [...] tablet Take 10 mg by mouth Daily. metoprolol succinate (TOPROL-XL) 25 mg 24 hr tablet Take 1 tablet by mouth Daily. 30 ta blet 1 nitroglycerin (NITROSTAT) 0.[address] [...] every 4 hours as needed for Nausea. potassium chloride (KLOR-CON) 10 MEQ ER tablet Take 10 mEq by mouth Daily. skin emollient (EUCERIN CALMING DAILY MOIST) cream Apply topically. traZODone (DESYREL) 50 mg tablet Take 50 mg by mouth nightly as needed for Sleep. warfarin (COUMADIN) 4 MG tablet Take 4 mg by mouth. In the evening on odd days warfarin (COUMADIN) 6 MG tablet Take 6 mg by mouth. In the evening on even days No current facility-administered medications for this visit. ALLERGIES Allergies Allergen Reactions Latex Rash ROS Review of Systems Constitutional: Negative for malaise/fatigue. Respiratory: Negative for shortness of breath. Cardiovascular: Positive for leg swelling. Negative for chest pain and palpitations. Neurological: Negative for dizziness and weakness. Endo/Heme/Allergies: Bruises/bleeds easily. Psychiatric/Behavioral: The patient is nervous/anxious. OBJECTIVE: PHYSICAL EXAM BP 100/50 | Pulse 62 Comment: regular | Resp 11 | Ht 1.676 m (5' 6") | Wt 84.5 kg (186 l b 4.6 oz) | BMI 30.07 kg/m Physical Exam Constitutional: He is oriented to person, place, and time. He appears well-developed and we ll-nourished. Elderly male in no acute distress, accompanied by son Neck: Normal carotid pulses and no JVD present. Carotid bruit is not present. Cardiovascular: Normal rate, regular rhythm, S1 normal, S2 normal and intact distal pulses. PMI is not displaced. Exam reveals no gallop and no friction rub. Murmur heard. Systolic murmur is present with a grade of 2/6 Pulses: Carotid pulses are 2+ on the right side, and 2+ on the left side. Posterior tibial pulses are 2+ on the right side, and 2+ on the left side. Mechanical valve sounds Pulmonary/Chest: Effort normal and breath sounds normal. No accessory muscle usage. No resp iratory distress. He has no wheezes. He has no rhonchi. He has no rales. Abdominal: Soft. Normal appearance and normal aorta. He exhibits no abdominal bruit. There is no hepatosplenomegaly. There is no tenderness. Musculoskeletal: He exhibits no edema. Neurological: He is alert and oriented to person, place, and time. Gait (using 4 wheeled wa lker for ambulation) abnormal. Skin: Skin is warm and dry. No cyanosis. Nails show no clubbing. Psychiatric: He has a normal mood and affect. His mood appears not anxious. Cognition and m tania are impaired (mildly). He does not exhibit a depressed mood. ECG: I personally independently reviewed ECG tracing during this visit (interpreted and enoc led by another provider): Results for orders placed or performed in visit on 06/19/17 ECG 12 lead Result Value Ref Range INTERPRETATION TEXT Atrial-paced rhythm Left bundle branch block Abnormal ECG When compared with ECG of 14-MAY-2017 11:23, Electronic atrial pacemaker has replaced Electronic ventricular pacemaker Vent. rate has decreased BY 40 BPM Confirmed by BASIA BIRD MD ([id number]) on 06/20/2017 6:04:16 AM LAB RESULTS reviewed during visit today primarily from [facility]: LIPID No results found for: CHOL, TRIG, HDL, LDL, CHOLHDL, LDLEX, HDLEX, TRIGEX, CHOLEX CHEMISTRY Lab Results Component Value Date GLU 93 05/13/2017 NA 140 05/13/2017 K 4.5 05/13/2017 CL 107 05/13/2017 CO2 28 05/13/2017 CALCIUM 8.4 05/13/2017 ALKPHOS 79 05/07/2017 AST 32 05/07/2017 ALT 16 05/07/2017 BILITOT 0.8 05/07/2017 CREA 1.20 05/14/2017 BUN 40 (H) 05/13/2017 EGFR 56 (L) 12/02/2012 HEMATOLOGY Lab Results Component Value Date WBC 9.5 05/14/2017 HGB 9.6 (L) 05/14/2017 HCT 29.4 (L) 05/14/2017 PLT 136 (L) 05/14/2017 Device interrogation is ordered and performed during this visit. Refer to scanned [employer] documentation and device PDF in [place] for interrogation (with programming changes) performed during visit today. Above data and testing is reviewed this visit; testing below is historical data unless othe rwise specified. ASSESSMENT: 1. Tachy/bradycardia with syncope: A. Hewas in his usual state of health [...] severe bradycardia wi th hypotension, requiring dopamine. B. Patient underwent successful [facility] [facility] [employer] MRI compatible, dual-chamber permanent pa cemaker implantation on 05/14/17. C. His device interrogation today shows no events. Heart rate histogram shows a flat dist ribution with atrial pacing 98%, ventricular pacing <1%. Patient is not active so Sensor is left unchanged. Atrial auto capture failed but manual threshold shows a normal threshold an d affixed output is set accordingly. Ventricular auto capture is tested, recommended and tu rned on. There is otherwise normal and stable device function. The estimated remaining araceli gracia longevity is 10.4 10.7 years. Current underlying rhythm is sinus bradycardia with rate of 31 beats per minute. 2. Paroxysmal atrial fibrillation with RVR/aberration conduction: A. Echocardiogram 04/01/2015 shows mild biatrial dilatation, normal left ventricular size, wall thickness and motion, preserved left ventricular systolic function, LVEF is 65-70%, gra de 1 left ventricular diastolic dysfunction, normally functioning mechanical bileaflet aorti c valve replacement, mildly thickened and calcified mitral valve with a mild mitral valve re gurgitation, mild mitral annular calcification, mild tricuspid valve regurgitation, moderate pulmonary hypertension with a peak systolic pressure of 55-60 mmHg, normal IVC with normal respiratory collapse, no previous echocardiography for comparison. B. Echocardiogram 01/30/2017 shows overall left ventricular systolic function is normal wit h, an EF between 65 - 70 %, pseudo normal LV diastolic filling pattern, consistent with elev ated LA pressure and moderate dysfunction (Grade II), right ventricle is normal in size and function, there is mild bi-atrial enlargement, normally functioning mechanical prosthetic ao rtic valve, there is mild pulmonary hypertension. C. Echocardiogram 02/28/2017 shows mild biatrial dilatation, normal left ventricular size w ith a mild concentric left ventricular hypertrophy, left ventricular systolic function is pr eserved. LVEF is 70%, normal right ventricular cavity with normal wall thickness and a mildl y reduced right ventricular systolic function, normal functioning mechanical aortic valve re placement, mildly thickened and calcified mitral valve with adequate opening, mild to modera te mitral annular calcification, mild pulmonary hypertension with a peak systolic pressure o f 45-50 mmHg, normal IVC with normal respiratory [...] He was started on amiodarone 04/2017. F. His risks for stroke include: Hx of HTN (1), Age >/= 75 y.o.(2) and Vascular disease ( 1). His KIG1CI9-GCDx score is 4, which gives an estimated 4.0% risk of stroke per year in at rial fibrillation. His bleeding risks include: bleeding history/anemia (1) and >64 YO (1) . His HASBLED score is 2-3, which confers an intermediate risk (4.1-5.8%) risk of bleed per year. Today, patient is feeling okay. He hassigns and symptoms of overt congestive heart fail ure. He is in a class IIof [place] [employer] functional class. He is on a rhythm control strategy with amiodarone. He is on warfarin to minimize the ris k of stroke. 3. Congestive heart failure with preserved ejection fraction A. He is being treated with furosemide. Heart failure is well compensated 4. Coronary artery disease: A. [facility] 11/14/2004 shows preserved left ventricular systolic function, critical aortic sten osis, severe one-vessel coronary artery disease. B. CABG x1 (DON to LAD)/AVR (#23 SJM),prosthetic valve stable, endocarditis prophylaxis r einforced on 11/16/2004. C. Today he denies chest pain. 5. Nonsustained ventricular tachycardia A. Problem is resolved on amiodarone. 6. Mechanical aortic valve replacement A. Status post AVR (#23 SJM) on 11/16/2004. B. On long-term Coumadin. 7. Hyperlipidemia, mixed: A. He is on atorvastatin 10 mg. 8. GI bleedingwith anemia: A. Noted during hospitalization 04/2017. Resolved. Not otherwise addressed today. 9.Stage III chronic kidney disease A. eGFR is 39 from 05/13/2017. 10. Chronic obstructive pulmonary disease. Not otherwise addressed today. 11. Obstructive sleep apnea. Not otherwise addressed today. PLAN: 1. He will continue with his current medical regimen. 2. He will continue with his [employer] remote device monitoring. 3. He will follow up in 6 months for office visit and device interrogation, or sooner with concerns. Electronically signed by: AMANDA Hurtado Portions of this chart may have been created with [employer] voice recognition software. Occasi onal wrong-word or sound-alike substitutions may have occurred due to the inherent carter itations of voice recognition software. Please read the chart carefully and recognize, using context, where these substitutions have occurred. documented in this encounter Procedure Notes Emely Gabriel ARNP - 09/19/2017 12:45 PM PSTAssociated Order(s): DEVICE INTERROGATIONProc edure(s): DEVICE INTERROGATIONPre-Procedure Diagnose(s): Tachycardia-bradycardia syndrome (H CC); Pacemaker reprogramming/check; Pacemaker PATIENT NAME: Johnny Siddiqi : 1935: AGE: 82 y.o. Device In-office Evaluation Report 09/19/2017 Reason for evaluation: routine Indication for device: ICD-10-CM ICD-9-CM 1. Tachycardia-bradycardia syndrome (HCC) I49.5 427.81 Device Interrogation Device Interrogation 2. Coronary artery disease involving tejon coronary artery of tejon heart without angina pectoris I25.10 414.01 3. Persistent atrial fibrillation (HCC) I48.1 427.31 4. Chronic diastolic congestive heart failure (HCC) I50.32 428.32 428.0 5. Essential hypertension I10 401.9 6. Pacemaker reprogramming/check Z45.018 V53.31 Device Interrogation Device Interrogation 7. Pacemaker Dual Chamber, MRI compatible, 05/14/17 [facility] Z95.0 V45.01 Device In [facility] Device Interrogation Patient was seated and device was interrogated (with programming changes made). Test was p erformed and interpreted by me. Device parameters, battery status, percentages pacing and si gnificant arrhythmias were reviewed. Heart rate histograms were assessed for adequate heart rate response and any alerts reviewed. Appropriate lead impedance testing was performed. Pac ing impedances were reviewed for any significant changes. Sensing tests were performed by de creasing LRL. Adequacy of pacing thresholds were tested by increasing LRL for each lead and recorded for loss of capture. Final outputs were assessed for adequate safety margins. Summary of findings: No events. Heart rate histogram shows a flat distribution with atrial pacing 98%, ventricular pacing < 1%. Patient is not active so Sensor is left unchanged. Atrial auto capture failed but manual threshold shows a normal threshold and affixed output is set accordingly. Ventricular auto capture is tested, recommended and turned on. There is otherwise normal and stable device function. The estimated remaining battery longevity is 10.4 10.7 years. Current underlying rhythm is sinus bradycardia with rate of 31 beats per minute. Please see the scanned P[employer] report and device PDF for further details. Electronically si gned by AMANDA Hurtado at 09/20/2017 12:31 PM PSTdocumented in this encounter Plan of Treatment +--------+ + + + + | Date | Type | Specialty | Care Team | Description | +--------+ + + + + | 07/20/ | Implant | Cardiology | Basia Bird, | Remote Device | | 2019 | Monitor | | MD Leon Grant | Interrogation | | | | | [place] [place], | (Primary Dx); | | | | | [place] [address] | Pacemaker Dual | | | | | [phone] | Chamber, MRI | | | | [...] [place] | | | | | | [address] [place] | | | | | | [address] | | | | | | | | +--------+ + + + + + + +--------+ + + | Name | Type | Priori | Associated Diagnoses | Order Schedule | | | | ty | | | + + +--------+ + + | Device Interrogation | Cardiac | Routin | | 10 Occurrences | | | Implant | e | Tachycardia-bradycar | starting 09/19/2017 | | | | | pablo syndrome (HCC) | until 09/19/2018, 2 | | | | | Pacemaker | completed | | | | | reprogramming/check | | | | | | Pacemaker Dual | | | | | | Chamber, MRI | | | | | | compatible, 05/14/17 | | | | | | [facility] | | + + +--------+ + + documented as of this encounter Procedures + +--------+ + + + | Procedure Name | Priori | Date/Time | Associated Diagnosis | Comments | | | ty | | | | + +--------+ + + + | DEVICE INTERROGATION | Routin | 09/20/2017 | | Results for this | | | e | 12:00 AM | Tachycardia-bradycar | procedure are in the | | | | PST | pablo syndrome ([facility]) | results section. | | | | | Pacemaker | | | | | | reprogramming/check | | | | | | Pacemaker Dual | | | | | | Chamber, MRI | | | | | | compatible, 05/14/17 | | | | | | [facility] | | + +--------+ + + + | DEVICE INTERROGATION | Routin | 09/20/2017 | | Results for this | | | e | 12:00 AM | Tachycardia-bradycar | procedure are in the | | | | PST | pablo syndrome ([facility]) | results section. | | | | | Pacemaker | | | | | | reprogramming/check | | | | | | Pacemaker Dual | | | | | | Chamber, MRI | | | | | | compatible, 05/14/17 | | | | | | [facility] | | + +--------+ + + + documented in this encounter Results Device Interrogation (06/04/2018 12:00 AM PDT) + + + | Narrative | Performed At | + + + | Emely Gabriel, | [facility] | | TECHNICAL DESIGNER 06/04/2018 15:12 PATIENT NAME: Johnny Siddiqi : | | | 1935: AGE: 82 y.o. Device In-office Evaluation Report | | | 06/04/2018 Reason for evaluation: routineIndication for device: | | | ICD-10-CM ICD-9-CM 1. Tachycardia-bradycardia syndrome (HCC) I49.5 | | | 427.81 Device Interrogation Comprehensive Metabolic Panel | | | Lipid Panel CBC no Differential T4, Free TSH XR Chest | | | PA and Lateral Pulmonary function test Comprehensive Metabolic | | | Panel Lipid Panel CBC no Differential T4, Free TSH 2. | | | Coronary artery disease involving tejon coronary artery of tejon | | | heart without angina pectoris I25.10 414.01 ECG 12 lead | | | Comprehensive Metabolic Panel Lipid Panel CBC no Differential | | | T4, Free TSH XR Chest PA and Lateral Pulmonary | | | function test Comprehensive Metabolic Panel Lipid Panel | | | CBC no Differential T4, Free TSH 3. Essential hypertension I10 | | | 401.9 Comprehensive Metabolic Panel Lipid Panel CBC no | | | Differential T4, Free TSH XR Chest PA and Lateral | | | Pulmonary function test Comprehensive Metabolic Panel Lipid | | | Panel CBC no Differential T4, Free TSH 4. Chronic | | | diastolic congestive heart failure (HCC) I50.32 428.32 Comprehensive | | | Metabolic Panel 428.0 Lipid Panel CBC no Differential T4, | | | Free TSH XR Chest PA and Lateral Pulmonary function test | | | Comprehensive Metabolic Panel Lipid Panel CBC no | | | Differential T4, Free TSH 5. Persistent atrial fibrillation | | | (HCC) I48.1 427.31 Comprehensive Metabolic Panel Lipid Panel | | | CBC no Differential T4, Free TSH XR Chest PA and Lateral | | | Pulmonary function test Comprehensive Metabolic Panel Lipid | | | Panel CBC no Differential T4, Free TSH 6. Pacemaker | | | reprogramming/check Z45.018 V53.31 Device Interrogation | | | Comprehensive Metabolic Panel Lipid Panel CBC no Differential | | | T4, Free TSH XR Chest PA and Lateral Pulmonary | | | function test Comprehensive Metabolic Panel Lipid Panel | | | CBC no Differential T4, Free TSH 7. Pacemaker Dual Chamber, | | | MRI compatible, 05/14/17 [facility] Z95.0 V45.01 Device | | | Interrogation Comprehensive Metabolic Panel Lipid Panel | | | CBC no Differential T4, Free TSH XR Chest PA and Lateral | | | Pulmonary function test Comprehensive Metabolic Panel Lipid | | | Panel CBC no Differential T4, Free TSH 8. terminal clerk | | | current use of amiodarone Z79.899 V58.69 XR Chest PA and Lateral | | | Pulmonary function test Patient was seated and device was | | | interrogated (with programming changes made). Test was performed and | | | interpreted by me. Device parameters, battery status, percentages | | | pacing and significant arrhythmias were reviewed. Heart rate | | | histograms were assessed for adequate heart rate response and any | | | alerts reviewed. Appropriate lead impedance testing was performed. | | | Pacing impedances were reviewed for any significant changes. Sensing | | | tests were performed by decreasing LRL. Adequacy of pacing thresholds | | | were tested by increasing LRL for each lead and recorded for loss of | | | capture. Final outputs were assessed for adequate safety margins. | | | Summary of findings:Events: 1 PMT on 05/25/18 interrupted appropriately | | | by PMT, no other arrhythmia. Heart rate histogram shows minimal | | | distribution. Atrial pacing <99%, Ventricular pacing <1%.There is a | | | normal and stable device function.Estimated remaining battery | | | longevity is 10.7 years.Current underlying rhythm: Junctional with | | | ventricular escape of 32 beats per minute. Please see the scanned | | | [employer] report and device PDF for further details. | | |Comprehensive Metabolic Panel | | | 428.0 Lipid Panel | | | CBC no Differential | | | T4, Free | | | TSH | | | XR Chest PA and Lateral | | | Pulmonary function test | | | Comprehensive Metabolic Panel | | | Lipid Panel | | | CBC no Differential | | | T4, Free | | | TSH | | |5. Persistent atrial fibrillation (HCC) I48.1 427.31 | | |Comprehensive Metabolic Panel | | | Lipid Panel | | | CBC no Differential | | | T4, Free | | | TSH | | | XR Chest PA and Lateral | | | Pulmonary function test | | | Comprehensive Metabolic Panel | | | Lipid Panel | | | CBC no Differential | | | T4, Free | | | TSH | | |6. Pacemaker reprogramming/check Z45.018 V53.31 Device | | |Interrogation | | | Comprehensive Metabolic Panel | | | Lipid Panel | | | CBC no Differential | | | T4, Free | | | TSH | | | XR Chest PA and Lateral | | | Pulmonary function test | | | Comprehensive Metabolic Panel | | | Lipid Panel | | | CBC no Differential | | | T4, Free | | | TSH | | |7. Pacemaker Dual Chamber, MRI compatible, 05/14/17 [facility] | | |[place] Z95.0 V45.01 Device Interrogation | | | Comprehensive Metabolic Panel | | | Lipid Panel | | | CBC no Differential | | | T4, Free | | | TSH | | | XR Chest PA and Lateral | | | Pulmonary function test | | | Comprehensive Metabolic Panel | | | Lipid Panel | | | CBC no Differential | | | T4, Free | | | TSH | | |8. 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 Test was performed and interpreted by me. Device | | |parameters, battery status, percentages pacing and significant | | |arrhythmias were reviewed. Heart rate histograms were assessed | | |for adequate heart rate response and any alerts reviewed. | | |Appropriate lead impedance testing was performed. Pacing | | |impedances were reviewed for any significant changes. Sensing | | |tests were performed by decreasing LRL. Adequacy of pacing | | |thresholds were tested by increasing LRL for each lead and | | |recorded for loss of capture. Final outputs were assessed for | | |adequate safety margins. | | | | | |Summary of findings: | | |Events: 1 PMT on 05/25/18 interrupted appropriately by PMT, no | | |other arrhythmia. | | |Heart rate histogram shows minimal distribution. Atrial pacing | | |<99%, Ventricular pacing <1%. | | |There is a normal and stable device function. | | |Estimated remaining battery longevity is 10.7 years. | | |Current underlying rhythm: Junctional with ventricular escape of | | |32 beats per minute. | | |Please see the scanned [facility] report and device PDF for further | | |details. | | + + + + + | Procedure Note | + + | Emely Gabriel ARNP - 06/04/2018 8:15 AM PDT Formatting of this note might be | | different from the original.PATIENT NAME: Johnny Siddiqi : 1935: AGE: 82 | | y.o.Device In-office Evaluation Report06/04/2018 Reason for evaluation: routineIndication | | for device: ICD-10-CM ICD-9-CM 1. Tachycardia-bradycardia syndrome (HCC) I49.5 | | 427.81 Device Interrogation Comprehensive Metabolic Panel Lipid Panel CBC no | | Differential T4, Free TSH XR Chest PA and Lateral Pulmonary function test | | Comprehensive Metabolic Panel Lipid Panel CBC no Differential T4, Free TSH | | 2. 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 Essential hypertension I10 401.9 Comprehensive Metabolic Panel | | Lipid Panel CBC no Differential T4, Free TSH XR Chest PA and Lateral | | Pulmonary function test Comprehensive Metabolic Panel Lipid Panel CBC no | | Differential T4, Free TSH 4. Chronic diastolic congestive heart failure (HCC) | | I50.32 428.32 Comprehensive Metabolic Panel 428.0 Lipid Panel CBC no Differential | | T4, Free TSH XR Chest PA and Lateral Pulmonary function test Comprehensive | | Metabolic Panel Lipid Panel CBC no Differential T4, Free TSH 5. Persistent | | atrial fibrillation (HCC) I48.1 427.31 Comprehensive Metabolic Panel Lipid Panel | | CBC no Differential T4, Free TSH XR Chest PA and Lateral Pulmonary function | | test Comprehensive Metabolic Panel Lipid Panel CBC no Differential T4, Free | | TSH 6. Pacemaker reprogramming/check Z45.018 V53.31 Device Interrogation | | Comprehensive Metabolic Panel Lipid Panel CBC no Differential T4, Free TSH | | XR Chest PA and Lateral Pulmonary function test Comprehensive Metabolic Panel | | Lipid Panel CBC no Differential T4, Free TSH 7. Pacemaker Dual Chamber, MRI | | compatible, 05/14/17 [facility] [place] Z95.0 V45.01 Device Interrogation Comprehensive | | Metabolic Panel Lipid Panel CBC no Differential T4, Free TSH XR Chest PA | | and Lateral Pulmonary function test Comprehensive Metabolic Panel Lipid Panel | | CBC no Differential T4, Free TSH 8. 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 Test was performed and interpreted | | by me. Device parameters, battery status, percentages pacing and significant arrhythmias | | were reviewed. Heart rate histograms were assessed for adequate heart rate response and | | any alerts reviewed. Appropriate lead impedance testing was performed. Pacing | | impedances were reviewed for any significant changes. Sensing tests were performed by | | decreasing LRL. Adequacy of pacing thresholds were tested by increasing LRL for each | | lead and recorded for loss of capture. Final outputs were assessed for adequate safety | | margins.Summary of findings:Events: 1 PMT on 05/25/18 interrupted appropriately by PMT, no | | other arrhythmia. Heart rate histogram shows minimal distribution. Atrial pacing <99%, | | Ventricular pacing <1%.There is a normal and stable device function.Estimated remaining | | battery longevity is 10.7 years.Current underlying rhythm: Junctional with ventricular | | escape of 32 beats per minute. Please see the scanned [facility] report and device PDF for | | further details. | | T4, Free | | TSH | | XR Chest PA and Lateral | | Pulmonary function test | | Comprehensive Metabolic Panel | | Lipid Panel | | CBC no Differential | | T4, Free | | TSH | |4. Chronic diastolic congestive heart failure (HCC) I50.32 428.32 Comprehensive Metabolic P ne | | 428.0 Lipid Panel | | CBC no Differential | | T4, Free | | TSH | | XR Chest PA and Lateral | | Pulmonary function test | | Comprehensive Metabolic Panel | | Lipid Panel | | CBC no Differential | | T4, Free | | TSH | |5. Persistent atrial fibrillation (HCC) I48.1 427.31 Comprehensive Metabolic Panel | | Lipid Panel | | CBC no Differential | | T4, Free | | TSH | | XR Chest PA and Lateral | | Pulmonary function test | | Comprehensive Metabolic Panel | | Lipid Panel | | CBC no Differential | | T4, Free | | TSH | |6. Pacemaker reprogramming/check Z45.018 V53.31 Device Interrogation | | Comprehensive Metabolic Panel | | Lipid Panel | | CBC no Differential | | T4, Free | | TSH | | XR Chest PA and Lateral | | Pulmonary function test | | Comprehensive Metabolic Panel | | Lipid Panel | | CBC no Differential | | T4, Free | | TSH | |7. Pacemaker Dual Chamber, MRI compatible, 05/14/17 [facility] [place] Z95.0 V45.01 Device In terrogation | | Comprehensive Metabolic Panel | | Lipid Panel | | CBC no Differential | | T4, Free | | TSH | | XR Chest PA and Lateral | | Pulmonary function test | | Comprehensive Metabolic Panel | | Lipid Panel | | CBC no Differential | | T4, Free | | TSH | |8. terminal clerk current use of amiodarone Z79.899 V58.69 XR Chest PA and Lateral | | Pulmonary function test | | | | | |Patient was seated and device was interrogated (with programming changes made). Test was p erformed and interpreted by me. Device parameters, battery status, percentages pacing and si gnificant arrhythmias were | |reviewed. Heart rate histograms were assessed for adequate heart rate response and any aler ts reviewed. Appropriate lead impedance testing was performed. Pacing impedances were review ed for any significant changes. | |Sensing tests were performed by decreasing LRL. Adequacy of pacing thresholds were tested b y increasing LRL for each lead and recorded for loss of capture. Final outputs were assessed for adequate safety margins. | | | |Summary of findings: | |Events: 1 PMT on 05/25/18 interrupted appropriately by PMT, no other arrhythmia. | |Heart rate histogram shows minimal distribution. Atrial pacing <99%, Ventricular pacing <1% . | |There is a normal and stable device function. | |Estimated remaining battery longevity is 10.7 years. | |Current underlying rhythm: Junctional with ventricular escape of 32 beats per minute. | |Please see the scanned [facility] report and device PDF for further details. | + + + +---------+ + + | Performing | Address | City/State/Zipcode | Phone Number | | Organization | | | | + +---------+ + + | [facility] | | | | + +---------+ + + Device Interrogation (09/20/2017 12:00 AM PST) + + + | Narrative | Performed At | + + + | Emely Gabriel, | [facility] | | TECHNICAL DESIGNER 09/20/2017 12:31 PATIENT NAME: Johnny Siddiqi : | | | 1935: AGE: 82 y.o. Device In-office Evaluation Report | | | 09/19/2017 Reason for evaluation: routineIndication for device: | | | ICD-10-CM ICD-9-CM 1. 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 Coronary | | | artery disease involving tejon coronary artery of tejon heart | | | without angina pectoris I25.10 414.01 3. Persistent atrial | | | fibrillation (HCC) I48.1 427.31 4. Chronic diastolic congestive | | | heart failure (HCC) I50.32 428.32 428.0 5. Essential | | | hypertension I10 401.9 6. Pacemaker reprogramming/check Z45.018 | | | V53.31 Device Interrogation Device Interrogation 7. Pacemaker Dual | | | Chamber, MRI compatible, 05/14/17 [facility] [place] Z95.0 V45.01 | | | Device Interrogation Device Interrogation Patient was seated and | | | device was interrogated (with programming changes made). Test was | | | performed and interpreted by me. Device parameters, battery status, | | | percentages pacing and significant arrhythmias were reviewed. Heart | | | rate histograms were assessed for adequate heart rate response and any | | | alerts reviewed. Appropriate lead impedance testing was performed. | | | Pacing impedances were reviewed for any significant changes. Sensing | | | tests were performed by decreasing LRL. Adequacy of pacing thresholds | | | were tested by increasing LRL for each lead and recorded for loss of | | | capture. Final outputs were assessed for adequate safety margins. | | | Summary of findings:No events.Heart rate histogram shows a flat | | | distribution with atrial pacing 98%, ventricular pacing <1%. Patient | | | is not active so Sensor is left unchanged.Atrial auto capture failed | | | but manual threshold shows a normal threshold and affixed output is | | | set accordingly. Ventricular auto capture is tested, recommended and | | | turned on. There is otherwise normal and stable device function.The | | | estimated remaining battery longevity is 10.4 | | | | | | 10.7 years.Current underlying rhythm is sinus bradycardia with rate of | | | 31 beats per minute.Please see the scanned [facility] report and device | | | PDF for further details. | | |parameters, battery status, percentages pacing and significant | | |arrhythmias were reviewed. Heart rate histograms were assessed | | |for adequate heart rate response and any alerts reviewed. | | |Appropriate lead impedance testing was performed. Pacing | | |impedances were reviewed for any significant changes. Sensing | | |tests were performed by decreasing LRL. Adequacy of pacing | | |thresholds were tested by increasing LRL for each lead and | | |recorded for loss of capture. Final outputs were assessed for | | |adequate safety margins. | | | | | |Summary of findings: | | |No events. | | |Heart rate histogram shows a flat distribution with atrial pacing | | |98%, ventricular pacing <1%. Patient is not active so Sensor is | | |left unchanged. | | |Atrial auto capture failed but manual threshold shows a normal | | |threshold and affixed output is set accordingly. Ventricular | | |auto capture is tested, recommended and turned on. There is | | |otherwise normal and stable device function. | | |The estimated remaining battery longevity is 10.4 10.7 years. | | |Current underlying rhythm is sinus bradycardia with rate of 31 | | |beats per minute. | | |Please see the scanned [facility] report and device PDF for further | | |details. | | + + + + + | Procedure Note | + + | Emely Gabriel ARNP - 09/19/2017 12:45 PM PST Formatting of this note might be | | different from the original.PATIENT NAME: Johnny Siddiqi : 1935: AGE: 82 | | y.o.Device In-office Evaluation Ylmhge1209/19/2017 Reason for evaluation: | | routineIndication for device: ICD-10-CM ICD-9-CM 1. Tachycardia-bradycardia syndrome | | ([facility]) I49.5 427.81 Device Interrogation Device Interrogation 2. Coronary artery | | disease involving tejon coronary artery of tejon heart without angina pectoris I25.10 | | 414.01 3. Persistent atrial fibrillation (HCC) I48.1 427.31 4. Chronic diastolic | | congestive heart failure (HCC) I50.32 428.32 428.0 5. Essential hypertension I10 | | 401.9 6. Pacemaker reprogramming/check Z45.018 V53.31 Device Interrogation Device | | Interrogation 7. Pacemaker Dual Chamber, MRI compatible, 05/14/17 [facility] [place] Z95.0 | | V45.01 Device Interrogation Device Interrogation Patient was seated and device was | | interrogated (with programming changes made). Test was performed and interpreted by me. | | Device parameters, battery status, percentages pacing and significant arrhythmias were | | reviewed. Heart rate histograms were assessed for adequate heart rate response and any | | alerts reviewed. Appropriate lead impedance testing was performed. Pacing impedances | | were reviewed for any significant changes. Sensing tests were performed by decreasing | | LRL. Adequacy of pacing thresholds were tested by increasing LRL for each lead and | | recorded for loss of capture. Final outputs were assessed for adequate safety | | margins.Summary of findings:No events.Heart rate histogram shows a flat distribution | | with atrial pacing 98%, ventricular pacing <1%. Patient is not active so Sensor is left | | unchanged.Atrial auto capture failed but manual threshold shows a normal threshold and | | affixed output is set accordingly. Ventricular auto capture is tested, recommended and | | turned on. There is otherwise normal and stable device function.The estimated remaining | | battery longevity is 10.4 | | | | 10.7 years.Current underlying rhythm is sinus bradycardia with rate of 31 beats per | | minute.Please see the scanned [facility] report and device PDF for further details. | |Patient was seated and device was interrogated (with programming changes made). Test was p erformed and interpreted by me. Device parameters, battery status, percentages pacing and si gnificant arrhythmias were | |reviewed. Heart rate histograms were assessed for adequate heart rate response and any aler ts reviewed. Appropriate lead impedance testing was performed. Pacing impedances were review ed for any significant changes. | |Sensing tests were performed by decreasing LRL. Adequacy of pacing thresholds were tested b y increasing LRL for each lead and recorded for loss of capture. Final outputs were assessed for adequate safety margins. | | | |Summary of findings: | |No events. | |Heart rate histogram shows a flat distribution with atrial pacing 98%, ventricular pacing < 1%. Patient is not active so Sensor is left unchanged. | |Atrial auto capture failed but manual threshold shows a normal threshold and affixed output is set accordingly. Ventricular auto capture is tested, recommended and turned on. There is otherwise normal and stable device function. | |The estimated remaining battery longevity is 10.4 10.7 years. | |Current underlying rhythm is sinus bradycardia with rate of 31 beats per minute. | |Please see the scanned [facility] report and device PDF for further details. 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 | | angina pectoris | + + | Persistent atrial fibrillation (HCC) Atrial fibrillation | + + | Chronic diastolic congestive heart failure (HCC) Chronic diastolic heart failure | + + | Essential hypertension Unspecified essential hypertension | + + | Pacemaker reprogramming/check Fitting and adjustment of cardiac pacemaker | + + | Pacemaker Dual Chamber, MRI compatible, 05/14/17 [facility] Cardiac pacemaker | | in situ | + + | Remote Device Interrogation - Primary Fitting and adjustment of cardiac pacemaker | + + | Pacemaker Dual Chamber, MRI compatible, 05/14/17 [facility] Cardiac pacemaker | | in situ | + + | 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
--- OUTSIDE RECORDS SUMMARY | ~2020-05-18 | XMS | Encounter Summary ---
Demographics + + + | Address | [address] | | | [place] [address] | + + + | Home Phone | | + + + | Preferred Language | Unknown | + + + | Marital Status | | + + + | Adventist Affiliation | 1061 | + + + | Race | Unknown | + + + | Ethnic Group | Unknown | + + + Author + + + | Author | [facility] | | | and [place] | + + + | Organization | [facility] | | | [...] Team Providers + +------+ + | Care Suture Winder Hand Name | Role | Phone | + +------+ + PCP | Unavailable | + +------+ + Encounter Details +--------+ + + + + | Date | Type | Department | Care Team | Description | +--------+ + + + + | 12/27/ | Hospital | [facility] | Conversion | | | 2004 | Encounter | CONVERSION DEP [address] | Transaction, | | | | | [address] | Provider Unknown | | | | | [place], [place] | | | | | | [phone] | (Fax) | | | | | | | [...] 2020 | Monitor | | [facility] [address] [facility] | Interrogation | | | | | [facility] [place], | (Primary Dx); | | | | | [place] [address] | Pacemaker Dual | | | | | [phone] | Chamber, MRI | | | | [...] [place] | | | | | | [id number] | | | | | | | | +--------+ + + + + documented as of this encounter Visit Diagnoses Not on filedocumented in this encounter"
--- OUTSIDE RECORDS SUMMARY | ~2020-05-18 | XMS | Encounter Summary ---
Demographics + + + | Address | [address] | | | [place] [address] | + + + | Home Phone | | + + + | Preferred Language | Unknown | + + + | Marital Status | | + + + | Anglican Affiliation | 1061 | + + + [...] Team Providers + +------+ + | Care Remnant Sorter Name | Role | Phone | + +------+ + | Antonio Paulino MD | PCP | | + +------+ + Reason for Visit + +--------+ + | Reason | Onset | Comments | | | Date | | + +--------+ + | Blood Pressure | 08/21/ | | | | 2018 | | + +--------+ + Encounter Details +--------+ + + + + | Date | Type | Department | Care Team | Description | +--------+ + + + + | 08/21/ | Telephone | [facility] [place] | Cruzito Bird, | Blood Pressure | | 2017 | | CARDIOLOGY [address] [place] | | | | | [place], | [place], | | | | | [place] [address] | [place] [address] | | | | | [phone] | [phone] | | | | | | | [...] this encounter Miscellaneous Notes Telephone Encounter - Sarah Guerrero RN - 08/21/2018 1:01 PM PDTCalled spoke to patient 's son, Johnny, relayed message per Dr. Nettles. Okay per son. ................................ ...........SARAH GUERRERO RN on 08/21/18 at 13:03 elephone Encounter - Cruzito Bird MD - 08/21/2018 12:57 PM PDTNo med change. Thank you. elephone Encounter - Kelly Lau CMA - 08/21/2018 12:43 PM PDTFormatting of this note might be diff erent from the original. Next Visit:12/05/18 Blood pressure log received from patient as follows:08/01/18---08/14/18 Medication Change: Stop Amiodarone, Increase Metoprolol to 50mg daily, Increase Lipitor 20m g daily Date BP AM Pulse PM BP PM Pulse PM 08/01/18 136/67 118/53 08/02/18 139/58 125/66 08/03/18 150/79 135/65 08/04/18 137/63 132/70 08/05/18 137/74 133/58 08/06/18 155/73 122/56 08/07/18 150/69 08/08/18 132/70 136/70 08/09/18 122/67 08/10/18 138/57 114/55 08/11/18 148/68 08/12/18 128/62 126/57 08/13/18 121/57 115/60 08/14/18 136/57 123/57 Additional Comments: documented in this encounter Plan of Treatment +--------+ + + + + | Date | Type | Specialty | Care Team | Description | +--------+ + + + + | 07/20/ | Implant | Cardiology | [facility] Bird, | Remote Device | | 2019 | Monitor | | MD [address] | Interrogation | | | | | [place], | (Primary Dx); | | | | | [place] [address] | Pacemaker Dual | | | | | [phone] | Chamber, MRI | | | | [...] [place] | | | | | | [address] | | | | | | | | +--------+ + + + + documented as of this encounter Visit Diagnoses Not on filedocumented in this encounter"
--- OUTSIDE RECORDS SUMMARY | ~2020-05-18 | XMS | Encounter Summary ---
Demographics + + + | Address | [address] | | | [place] [address] | + + + | Home Phone | | + + + | Preferred Language | Unknown | + + + | Marital Status | | + + + | Scientology Affiliation | 1061 | + + + | Race | Unknown | + + + | Ethnic Group | Unknown | + + + Author + + + | Author | [facility] | | | and [place] | + + + | Organization | [facility] | | | [...] Team Providers + +------+ + | Care Adult And Pediatric Neurologist Name | Role | Phone | + +------+ + | Antonio Paulino MD | PCP | | + +------+ + Reason for Referral Evaluate & Treat (Routine) +--------+ + + + + + | Status | Reason | Specialty | Diagnoses / | Referred By | Referred To | | | | | Procedures | Contact | Contact | +--------+ + + + + + | Closed | Specialty | Pulmonary | Diagnoses | Nery, | JOHN | | | Services | Disease | Chronic | AMANDA Han | CLINIC | | | Required | | obstructive | [address] | PULMONOLOGY | | | | | pulmonary | [address] [place] | [address] | | | | | disease, | [place] | [address] | | | | | unspecified | [address] | [place] | | | | | COPD type | Phone: | [place] | | | | | ([facility]) | [phone] | [address] | | | | | Abnormal PFT | Fax: | Phone: | | | | | Procedures | [phone] | [phone] | | | | | SCHEDULED | | Fax: | | | | | FOR 12/25/18 | | [phone] | +--------+ + + + + + Reason for Visit +---------+--------+ + | Reason | Onset | Comments | | | Date | | +---------+--------+ + | Results | 07/03/ | | | | 2018 | | +---------+--------+ + Encounter Details +--------+ + + + + | Date | Type | Department | Care Team | Description | +--------+ + + + + | 07/03/ | Telephone | [facility] | Emely Gabriel, | Results | | 2017 | | CARDIOLOGY [address] | BRASS CLEANER [address] | | | | | [place], | [place] | | | | | [place] [address] | [address] | | | | | [phone] | | | +--------+ + + + [...] this encounter Miscellaneous Notes Telephone Encounter - Costa Fenton RN - 07/04/2018 1:24 PM PDTCalled and spoke with divine Turner and relayed message per Emely PATEL. Okay per Johnny. Placed referral to [facility]. ...........................................COSTA FENTON RN on 07/04/18 at 13:31 elephone Encounter - Makla Sepulveda - 07/04/2018 11:52 AM PDTPatients son Johnny Called back, Please return call. Thank you! eleph one Encounter - Isabel Colbert RN - 07/04/2018 9:34 AM PDTLeft message on voicemail t o return call ..........................................Isabel Colbert RN on 07/04/18 a t 9:34 elephone Emely Schreiber ARNP - 07/03/2018 5:55 PM PDTPlease let the patient / family know that his lung function test shows severe restriction, which could be related to his history of C OPD, also could be some contribution from amiodarone, so it is good that he has now stopped it. I don't see that he has seen a teamcenter consultant, but that would be a reasonable idea at [facility] s point. If that is something he is interested in, go ahead and put in referral to [facility] pulmonology department for COPD and abnormal pulmonary function tests. Otherwise, the patient can just discuss further with Dr. Bird at follow up appointment 07/31/18. I did fax a copy of the pulmonary function tests to Dr. Paulino's office as well. Thanks! ...........................................AMANDA Mcmillan on 07/03/18 at 17: 57 documented in [facility] encounter Plan of Treatment +--------+ + + + + | Date | Type | Specialty | Care Team | Description | +--------+ + + + + | 07/20/ | Implant | Cardiology | Cruzito Bird, | Remote Device | | 2019 | Monitor | | [address] | Interrogation | | | | | [place], | (Primary Dx); | | | | | [place] [address] | Pacemaker Dual | | | | | [phone] | Chamber, MRI | | | | | | compatible, 05/14/17 | | | | | | [facility] [place]; | | | | | | 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) | +--------+ + + + + | 01/05/ | Office | Cardiology | Emely Gabriel, | | | 2020 | Visit | | BRASS CLEANER [address] | | | | | | [place], [place] | | | | | | [address] | | | | | | | | +--------+ + + + + + + +--------+ + + | Name | Type | Priori | Associated Diagnoses | Order Schedule | | | | ty | | | + + +--------+ + + | Pulmonology, | Outpatient | Routin | Chronic | Ordered: 07/04/2018 | | External - AMB | Referral | e | obstructive | | | Referral- | | | pulmonary disease, | | | | | | unspecified COPD | | | | | | type (HCC) Abnormal | | | | | | PFT | | + + +--------+ + + documented as of this encounter Visit Diagnoses + + | Diagnosis | + + | Chronic obstructive pulmonary disease, unspecified COPD type (HCC) - Primary | + + | Abnormal PFT Nonspecific abnormal results of pulmonary system function study | + + | Remote Device Interrogation - Primary Fitting and adjustment of cardiac pacemaker | + + | Pacemaker Dual Chamber, MRI compatible, 05/14/17 [facility] Bird Cardiac pacemaker | | in situ | + + | 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
--- OUTSIDE RECORDS SUMMARY | ~2020-05-18 | XMS | Encounter Summary ---
Demographics + + + | Address | [address] | | | [place] [address] | + + + | Home Phone | | + + + | Preferred Language | Unknown | + + + | Marital Status | | + + + | Judaism Affiliation | 1061 | + + + | Race | Unknown | + + + | Ethnic Group | Unknown | + + + Author + + + | Author | [facility] | | | and [place] | + + + | Organization | [facility] | | [...] Team Providers + +------+ + | Care Qa Manager Name | Role | Phone | [...] Monitor | CARDIOLOGY [address] | Interrogation | | | | [place], | [place], | (Primary Dx); | | | | [place] [address] | [place] [address] | Pacemaker Dual | | | | [phone] | Chamber, MRI | | | | [...] Paceart documentation and remote PDF scanned into [facility] for remote interrogation re sults. Data collected [...] | | 2019 | Monitor | | [address] [place] [address] | Interrogation | | | | | [place], | (Primary Dx); | | | | | [place] [address] | Pacemaker Dual | | | | | [phone] | Chamber, MRI | | | | | | compatible, 05/14/17 | | | | | | [facility] [place]; | | | | | | 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) | +--------+ + + + + | 03/18/ | Office | Cardiology | Emely Gabriel, | | | 2020 | Visit | | [employer] [address] | | | | | | [facility] [place] [facility] [place] | | | | | | [address] | | | | | | | [...] remote PDF scanned into | | | [facility] for remote interrogation results. Data collected by [...]
--- OUTSIDE RECORDS SUMMARY | ~2020-05-18 | XMS | Encounter Summary ---
Demographics + + + | Address | [address] | | | [place] [address] | + + + | Home Phone | | + + + | Preferred Language | Unknown | + + + | Marital Status | | + + + | Congregational Affiliation | 1061 | + + + | Race | Unknown | + + + | Ethnic Group | Unknown | + + + Author + + + | Author | [facility] | | | and [place] | + + + | Organization | [facility] | | | [...] Team Providers + +------+ + | Care Coach Professional Athletes Name | Role | Phone | + [...] + + | 07/20/ | Implant | [facility] | Cruzito Bird, | Remote Device | | 2019 | Monitor | CARDIOLOGY [address] | [address] [place] | Interrogation | | | | [place], | [place], | (Primary Dx); | | | | [place] [address] | [place] [address] | Pacemaker Dual | | | | [phone] | [phone] | Chamber, MRI | | | | [...] encounter Procedure Notes Cruzito Bird MD - 07/20/2019 11:59 PM PDTAssociated Order(s): DEVICE INTERROGATION- R EMOTEProcedure(s): DEVICE INTERROGATION- REMOTEPre-Procedure Diagnose(s): Pacemaker reprogra mming/check; Pacemaker; Tachycardia-bradycardia syndrome (HCC)Date of Remote Interrogation: 04/22/19 Refer to Paceart documentation and remote PDF scanned into [facility] for remote interrogation re sults. Data collected by Nancy Dougherty RN Presenting rhythm: sinus rhythm atrial paced ventricular sensed between 65-70 beats. 0 mode switch episodes accounting for 0% of the time. No episodes. PVC singles 9200 PVC singles 3066/month PVC runs 0 PVC runs 0/month Histogram flat. Battery longevity 9.9-10.3 years. Apparent normal and stable device function. Device interrogation due in office in May 2019. Jaren Turner notified. Tdocumented in this encounter Plan of Treatment +--------+ + + + + | Date | Type | Specialty | Care Team | Description | +--------+ + + + + | 07/20/ | Implant | Cardiology | Cruzito Bird, | Remote Device | | 2019 | Monitor | | [address] [facility] | Interrogation | | | | | [place], | (Primary Dx); | | | | | [place] [address] | Pacemaker Dual | | | | | [phone] | Chamber, MRI | | | | | | compatible, 05/14/17 | | | | | | [facility]; | | | | | | 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) | +--------+ + + + + | 01/05/ | Office | Cardiology | Eemly Gabriel, | | | 2020 | Visit | | BLENDING OPERATOR [address] | | | | | | [place] | | | | | | [address] | | | | | | | | +--------+ + + + + documented as of this encounter Procedures + +--------+ + + + | Procedure Name | Priori | Date/Time | Associated Diagnosis | Comments | | | ty | | | | + +--------+ + + + | DEVICE | Routin | 04/28/2019 | Remote Device | Results for this | | INTERROGATION- | e | 12:00 AM | Interrogation | procedure are in the [...] this encounter Results Device Interrogation - Remote (04/28/2019 12:00 AM PDT) + + + | Narrative | Performed At | + + + | Cruzito | KAREN | | MD Marge 04/28/2019 16:35Date of Remote Interrogation: 04/22/19 | | | Refer to Paceart documentation and remote PDF scanned into [employer] for | | | remote interrogation results. Data collected by Nancy Dougherty RN | | | Presenting rhythm: sinus rhythm atrial paced ventricular sensed | | | between 65-70 beats.0 mode switch episodes accounting for 0% of the | | | time.No episodes. PVC singles 9200 PVC singles | | | 3066/monthPVC runs 0 PVC runs 0/monthHistogram | | | flat. Battery longevity 9.9-10.3 years.Apparent normal and | | | stable device function.Device interrogation due in office in May | | | 2018.Son Johnny notified. | | |No episodes. | | |PVC singles 9200 PVC singles 3066/month | | |PVC runs 0 PVC runs 0/month | | |Histogram flat. Battery longevity 9.9-10.3 years. | | |Apparent normal and stable device function. | | |Device interrogation due in office in May 2019. | | |Jaren Turner notified. | | + + + + + | Procedure Note | + + | Cruzito Bird MD - 07/20/2019 11:59 PM PDT Date of Remote Interrogation: | | 04/22/19Refer to Paceart documentation and remote PDF scanned into [employer] for remote | | interrogation results. Data collected by Nancy Dougherty RN Presenting rhythm: sinus | | rhythm atrial paced ventricular sensed between 65-70 beats.0 mode switch episodes | | accounting for 0% of the time.No episodes. PVC singles 9200 PVC singles | | 3066/monthPVC runs 0 PVC runs 0/monthHistogram flat. Battery longevity | | 9.9-10.3 years.Apparent normal and stable device function.Device interrogation due in | | office in May 2019.Jaren Turner notified. | |PVC singles 9200 PVC singles 3066/month | |PVC runs 0 PVC runs 0/month | |Histogram flat. Battery longevity 9.9-10.3 years. | |Apparent normal and stable device function. | |Device interrogation due in office in May 2019. | |Jaren Turner notified. | + + + +---------+ + + [...]
--- OUTSIDE RECORDS SUMMARY | ~2020-05-18 | XMS | Encounter Summary ---
Demographics + + + | Address | [address] | | | [place] [address] | + + + | Home Phone | | + + + | Preferred Language | Unknown | + + + | Marital Status | | + + + | Denominational Affiliation | 1061 | + + + [...] Team Providers + +------+ + | Care Eight Arm Operator Name | Role | Phone | [...] | | CARDIOLOGY [address] | [address] | | | | | [place], | [place], | | | | | [place] [address] | [place] [address] | | | | | [phone] | [phone] | | | | | | | [...] | Monitor | | MD [address] | Interrogation | | | | | [place], | (Primary Dx); | | | | | [place] [address] | Pacemaker Dual | | | | | [phone] | Chamber, MRI | | | | [...] [place] | | | | | | [address] | | | | | | | | +--------+ + + + + documented as of this encounter Visit Diagnoses Not on filedocumented in this encounter"
--- OUTSIDE RECORDS SUMMARY | ~2020-05-18 | XMS | Encounter Summary ---
Demographics + + + | Address | [address] | | | [place] [address] | + + + | Home Phone | | + + + | Preferred Language | Unknown | + + + | Marital Status | | + + + | Baptism Affiliation | 1061 | + + + [...] Team Providers + +------+ + | Care Benefit Authorizer Name | Role | Phone | + +------+ + | Antonio Paulino MD | PCP | | + +------+ + Reason for Visit + + + | Reason | Comments | + + + | Congestive Heart | | | Failure | | + + + | New Patient | | + + + Evaluate & Treat (Routine) +--------+--------+ + + + + | Status | Reason | Specialty | Diagnoses / | Referred By | Referred To | | | | | Procedures | Contact | Contact | +--------+--------+ + + + + | Closed | | Cardiology | Diagnoses | [facility] | | | | [facility] | MD Basia | MD Basia | | | | | discharge | [address] | | | | | follow-up | [address] | [address] | | | | | Pacemaker | [place], [place], | | | | | [place]N | [place] [address] | [place] [address] | | | | | (hypertensio | Phone: | Phone: | | | | | n) CAD | [phone] | [phone] | | | | | (coronary | Fax: | Fax: | | | | | artery | [phone] | [phone] | | | | | disease) | | | | | | | Persistent | | | | | | | atrial | | | | | | | fibrillation | | | | | | | (HCC) | | | | | | | Tachycardia- | | | | | | | bradycardia | | | | | | | syndrome | | | | | | | (HCC) | | | | | | | Procedures | | | | | | | [facility] | | | | | | | CLINIC. | | | | | | | CONSULTED BY | | | | | | | [facility] | | | | | | | [facility]OSP. | | | +--------+--------+ + + + + Encounter Details +--------+---------+ + + + | Date | Type | Department | Care Team | Description | +--------+---------+ + + + | 06/19/ | Office | [facility] | Basia Bird, | Chronic heart | | 2017 | Visit | CARDIOLOGY [address] | failure, unspecified | | | | [address] [place], | [place], | heart failure type | | | | [place] [address] | [place] [address] | ([facility]) (Primary Dx) | | | | [phone] | [phone] | | | | | | | [...] + + + | Blood Pressure | 122/54 | 06/19/2017 10:22 AM | right | | | | PDT | | + + + + + | Pulse | 68 | 06/19/2017 10:21 AM | | | | | PDT | | + + + + + | Temperature | - | - | | + + + + + | Respiratory Rate | 21 | 06/19/2017 10:21 AM | | | | | PDT | | + + + + + | Oxygen Saturation | 99% | 06/19/2017 10:21 AM | | | | | PDT | | + + + + + | Inhaled Oxygen | - | - | | | Concentration | | | | + + + + + | Weight | 100.5 kg (221 lb 9.6 | 06/19/2017 10:21 AM | | | | oz) | PDT | | + + + + + | Height | 167.6 cm (5' 6") | 06/19/2017 10:21 AM | | | | | PDT | | + + + + + | Body Mass Index | 35.77 | 06/19/2017 10:21 AM | | | | | PDT [...] documented as of this encounter Progress Notes Basia Bird MD - 06/19/2017 11:00 AM PDTFormatting of this note might be different f rom the original. PATIENT NAME: Johnny Siddiqi : 1935: AGE: 81 y.o. REFERRED BY: Basia Bird PRIMARY CARE: Antonio Paulino MD NEW PATIENT OFFICE VISIT Date of Service: 06/19/17 HISTORY OF PRESENT ILLNESS: Johnny Siddiqi is a 81 y.o. 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 dual-chamber pacemaker implantation o n 05/14/17, CAD, post CABG 1 with DON to LAD and mechanical aortic valve replacement in 09 03, heart failure with preserved ejection fraction, stage III chronic kidney disease, obesit y, inactivity, COPD. He is being seen today for follow-up after hospitalization admission. Today, patient is feeling fair. Patient is physically inactive as he is living at the [facility] in [facility]. There is no chest pain or chest discomfort both at r est and on exertion. Patient reported shortness of breath on exertion which is not changed. There is no palpitation dizziness or lightheadedness. There is ongoing same ankle and leg swelling. Patient can sleep on one pillow at night without difficulty breathing. CURRENT PROBLEMS Patient Active Problem List Diagnosis [...] Chamber, MRI compatible, 05/14/17 [facility] MEDICAL, SURGICAL, AND PERSONAL HISTORY Past Surgical History: Procedure Laterality Date CARDIAC SURGERY 2005 [facility] CABG and [facility] AVR PACEMAKER INSERTION N/A 05/14/2017 Procedure: CV EP PPM System Implant; Surgeon: Basia Bird MD; Location: [facility] CV LAB UPPER GASTROINTESTINAL ENDOSCOPY N/A 05/08/2017 Procedure: EGD with Anesthesia; Surgeon: Peter Maciel MD; Location: [facility] MEDICAL PROCED [facility]RE [facility]IT Family History Problem Relation Age of Onset Heart disease Father Family Status Relation Status Father Social History Social History Marital status: Spouse name: N/A Number of children: N/A Years of education: N/A Social History Main Topics Smoking status: Never Smoker Smokeless tobacco: Never Used Alcohol use No Drug use: No Sexual activity: Not Asked Other Topics Concern None Social History Narrative None CURRENT MEDICATIONS Current Outpatient Prescriptions Medication Sig Dispense Refill albuterol 90 mcg/puff inhaler Inhale 2 puffs into the lungs 3 times daily as needed for Wheezing. amiodarone (PACERONE) 200 mg tablet Take 1 tablet by mouth Daily. 30 tablet 1 amiodarone (PACERONE) 400 MG tablet Take 1 tablet by mouth 2 times daily. 14 tablet 0 artificial tears (REFRESH PLUS) 0.5% SOLN Place 1 drop into both eyes 4 times daily as needed (for dry eyes). atorvaSTATin (LIPITOR) 10 mg tablet Take 10 mg by mouth nightly. benzonatate (TESSALON) 100 mg capsule Take 100 mg by mouth Twice daily as needed for C ough. budesonide-formoterol (SYMBICORT) 160-4.5 mcg/puff inhaler Inhale 2 puffs into the lung s 2 times daily. desonide (DESOWEN) 0.05% cream Apply topically 2 times daily. docusate sodium (COLACE) 250 [...] (EUCERIN CALMING DAILY MOIST) cream Apply topically. tamsulosin (FLOMAX) 0.4 mg CAPS Take 0.4 mg by mouth daily (after breakfast). terbinafine (LAMISIL) 1% cream Apply topically 2 times daily. traZODone (DESYREL) 50 mg tablet Take 50 mg by mouth nightly as needed for Sleep. warfarin (COUMADIN) 2 mg tablet Take 2 mg by mouth Daily. Every Saturday No current facility-administered medications for this visit. ALLERGIES Allergies Allergen Reactions Latex Rash ROS Review of Systems Constitutional: Positive for malaise/fatigue. Negative for chills, diaphoresis, fever and w eight loss. HENT: Positive for hearing loss (hearing aids). Negative for congestion, nosebleeds and tin nitus. Dental Problems = No Eyes: Negative for blurred vision and double vision. Respiratory: Positive for shortness of breath. Cardiovascular: Positive for leg swelling. Negative for chest pain and palpitations. Gastrointestinal: Positive for diarrhea. Negative for blood in stool, constipation, nausea and vomiting. Genitourinary: Negative for dysuria, frequency, hematuria and urgency. Musculoskeletal: Positive for back pain. Negative for falls, joint pain, myalgias and neck pain. Gait Problems = No Skin: Negative for itching and rash. Neurological: Positive for dizziness. Negative for tingling, tremors, speech change, seizur es, loss of consciousness and weakness. Lightheaded = No Endo/Heme/Allergies: Bruises/bleeds easily. Psychiatric/Behavioral: Negative for memory loss. The patient is not nervous/anxious and do es not have insomnia. OBJECTIVE: PHYSICAL EXAM BP 122/54 Comment: right | Pulse 68 | Resp 21 | Ht 1.676 m (5' 6") | Wt 100.5 kg (221 lb 9.6 oz) | SpO2 99% | BMI 35.77 kg/m Physical Exam Constitutional: He is oriented to person, place, and time. He appears well-developed and we ll-nourished. No distress. Obese male individual arrives with his son, without acute distress. HENT: Head: Normocephalic. Mouth/Throat: Mucous membranes are not cyanotic. Eyes: Lids are normal. Neck: Normal carotid pulses, no hepatojugular reflux and no JVD present. Carotid bruit is n ot present. No tracheal deviation present. Cardiovascular: Normal rate, regular rhythm, S1 normal, S2 normal and normal pulses. PMI i s not displaced. Exam reveals no gallop, no S3 and no S4. No murmur heard. Pulses: Carotid pulses are 2+ on the right side, and 2+ on the left side. Femoral pulses are 2+ on the right side, and 2+ on the left side. Dorsalis pedis pulses are 2+ on the right side, and 2+ on the left side. Posterior tibial pulses are 2+ on the right side, and 2+ on the left side. Normal prosthetic heart sound Pulmonary/Chest: Effort normal and breath sounds normal. No accessory muscle usage. No resp iratory distress. He has no wheezes. He has no rhonchi. He has no rales. Decrease breath sound bilaterally Abdominal: Soft. Normal appearance and bowel sounds are normal. He exhibits no abdominal br uit. There is no hepatosplenomegaly. There is no tenderness. Musculoskeletal: He exhibits edema (bilateral 1-2+ leg swelling). Neurological: He is alert and oriented to person, place, and time. Gait normal. Skin: Skin is warm and dry. He is not diaphoretic. No cyanosis. No pallor. Nails show no cl ubbing. Psychiatric: He has a normal mood and affect. His mood appears not anxious. He does not exh ibit a depressed mood. ECG: Dual-chamber pacing device, atrial pacing, ventricular sensing rhythm. LAB RESULTS: LIPID No results found for: CHOL, TRIG, [...] 29.4 (L) 05/14/2017 PLT 136 (L) 05/14/2017 I reviewed records from Susan Vides MD for hospitalization,including H&P, Discharge Summary and lab reports on 05/07/2017-05/16/2017. Refer to director of donor relations. ASSESSMENT: 1. Fall/syncope with atrial fibrillation with complete left bundle branch block and wide-co mplextachycardiasuggesting A. fib with RVR/aberration conduction A. Echocardiogram 04/01/2015 shows mild biatrial dilatation, [...] an EF between 65 - 70 %, pseudonormal LV diastolic filling pattern, consistent with eleva johnny LA pressure and moderate dysfunction (Grade II), right ventricle is normal in size and f unction, there is mild bi-atrial enlargement, normally functioning mechanical prosthetic aor tic valve, there is mild pulmonary hypertension. C. [...] be fluid overloaded on this study. E. Jameswas in his usual state of health until 05/07/17 when he was admitted after he fell t wice while walking out of a convenience store. He was found to be anemic so original thoug ht was that he had GI bleeding causing the syncope. However, upper GI endoscopy did not re veal significant source of GI bleeding.Over the next few days, patient developed atrial fi brillation with rapid ventricular response. He was given metoprolol but ran into problems with hypotension. Amiodarone was started. However, he developed a severe bradycardia wit h hypotension, requiring dopamine. F. Patient underwent successful [facility] MRI compatible, dual-chamber permanent pa cemaker implantation on 05/14/17 and was loaded on oral amiodarone 400 mg twice a day to anastasia t atrial fibrillation with symptomatic irreversible tachycardia/bradycardia syndrome. G. Today, patient is feeling fair. Patient is physically inactive as he is living at the rehab unit of [facility] in [facility]. There is no chest pain or chest discomfort both at rest and on exertion. Patient reported shortness of breath on exertion which is not danna nged. There is no palpitation dizziness or lightheadedness. There is ongoing same ankle and leg swelling. Patient can sleep on one pillow at night without difficulty breathing. He has signs and symptoms of overt congestive heart failure. He is in a class IIof [place] [employer] functional class. There is bilateral 1-2+ leg swelling on physic al examination. He is in a normal sinus rhythm today. He is on a rhythm control strategy with amiodarone. He is on warfarin to minimize the risk of stroke. 2. Congestive heart failure with preserved ejection fraction A. He is being treated with furosemide. Heart failure is well compensated 3. Nonsustained ventricular tachycardia A. Problem is resolved. 4. Mechanical aortic valve replacement A. [facility] 11/14/2004 shows preserved left ventricular systolic function, critical aortic steno sis, severe one-vessel coronary artery disease. B. CABG x1 (DON to LAD)/AVR (#23 SJM),prosthetic valve stable, endocarditis prophylaxis r einforced on 11/16/2004. C. On long-term Coumadin.Last INR 2 days ago was 2.0.He is now back on Coumadin. INR is subtherapeutic this morning. Dose is being adjusted by pharmacy. 5. GI bleedingwith anemia A. Being seen by Dr. Dunne. 6.Stage III chronic kidney disease A. eGFR is 39 from 05/13/2017. 7. Hyperlipidemia A. He is on atorvastatin 10 mg. 8.Chronic obstructive pulmonary disease 9. Obstructive sleep apnea PLAN: 1. I spend time at length talking about natural course, treatment and prognosis of heart fa ilure with preserved ejection fraction and atrial fibrillation. 2. I will continue with current medical regimen. 3. I recommend a therapeutic lifestyle change including walking 15 minutes a day, choosing healthy choices of diet, including DASH diet and weight reduction. 4. Follow up in 2 months OC/thresh check. Melba Thompson am acting as a scribe on behalf of, and in the presence of Basia Bird MD. I have reviewed and edited this note. Melba Thompson Coal Shoveler 06/19/2017 I, Basia Bird MD, personally performed the services described in this documentation, as scribed in my presence and it is both accurate and complete. Melba Thompson, Med Ass t 06/19/2017 10:37 Electronically signed by: Basia Bird MD [facility] 06/19/2017 Portions of this chart may have been created with [employer] voice recognition software. Occasi onal wrong-word or sound-alike substitutions may have occurred due to the inherent carter itations of voice recognition software. Please read the chart carefully and recognize, using context, where these substitutions have occurred. documented in this encounter Plan of Treatment [...] Dx); | | | | | [place] [address] | Pacemaker Dual | | | | | [phone] | Chamber, MRI | | | | | | compatible, 05/14/17 | | | | | | [facility]; | | | | | | 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) | +--------+ + + + + | 01/05/ | Office | Cardiology | Emely Gabriel, | | | 2020 | Visit | | SPECIAL EDUCATION SUPERVISOR [address] | | | | | | [place] | | | | | | [address] | | | | | | | | +--------+ + + + + documented as of this encounter Procedures + +--------+ + + + | Procedure Name | Priori | Date/Time | Associated Diagnosis | Comments | | | ty | | | | + +--------+ + + + | ECG 12 LEAD | Routin | 06/19/2017 | Chronic heart | Results for this | | | e | 10:17 AM | failure, unspecified | procedure are in the | | | | PDT | heart failure type | results section. | | | | | (HCC) | | + +--------+ + + + documented in this encounter Results ECG 12 lead (06/19/2017 10:17 AM PDT) + + + + + + | Component | Value | Ref Range | Performed | Pathologist | | | | | At | Signature | + + + + + + | VENTRICULAR | 60 | BPM | [facility] | | | RATE EKG | | | | | + + + + + + | ATRIAL RATE | 326 | BPM | [facility] | | + + + + + + | P-R | 196 | ms | [facility] | | | INTERVAL | | | | | + + + + + + | QRS | 148 | ms | [facility] | | | DURATION | | | | | + + + + + + | Q-T | 440 | ms | [facility] | | | INTERVAL | | | | | + + + + + + | Q-T | 440 | ms | [facility] | | | INTERVAL | | | | | | (CORRECTED) | | | | | + + + + + + | QRS AXIS | -26 | degrees | [facility] | | + + + + + + | T AXIS | 136 | degrees | [facility] | | + + + + + + | INTERPRETAT | Atrial-paced rhythmLeft | | [facility] | | | ION TEXT | bundle branch | | | | | | blockAbnormal ECGWhen | | | | | | compared with ECG of | | | | | | 14-MAY-2017 | | | | | | 11:23,Electronic atrial | | | | | | pacemaker has replaced | | | | | | Electronic ventricular | | | | | | pacemakerVent. rate has | | | | | | decreased BY 40 | | | | | | BPMConfirmed by | | | | | | BASIA BIRD MD | | | | | | ([id number]) on 06/20/2017 | | | | | | 6:04:16 AM | | | | + + [...] | Diagnosis | + + | Chronic heart failure, unspecified heart failure type (HCC) - Primary | + + | Remote Device Interrogation - Primary Fitting and adjustment of cardiac pacemaker | + + | Pacemaker Dual Chamber, MRI compatible, 05/14/17 [facility] Cardiac pacemaker | | in situ | + + | 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
--- OUTSIDE RECORDS SUMMARY | ~2020-05-18 | XMS | Encounter Summary ---
Demographics + + + | Address | [address] | | | [place] [address] | + + + | Home Phone | | + + + | Preferred Language | Unknown | + + + | Marital Status | | + + + | Shinto Affiliation | 1061 | + + + | Race | Unknown | + + + | Ethnic Group | Unknown | + + + Author + + + | Author | [facility] | | | and [place] | + + + | Organization | [facility] | | | [...] Team Providers + +------+ + | Care Block Trimmer Name | Role | Phone | + +------+ + | Antonio Paulino MD | PCP | | + +------+ + Reason for Visit + +--------+ + | Reason | Onset | Comments | | | Date | | + +--------+ + | Appointment | 05/17/ | | | | 2016 | | + +--------+ + Encounter Details +--------+ + + + + | Date | Type | Department | Care Team | Description | +--------+ + + + + | 05/17/ | Telephone | [facility] [place] | Cruzito Bird, | Appointment | | 2016 | | CARDIOLOGY [address] [place] | | | | | [place], | [place], | | | | | [place] [address] | [place] [address] | | | | | [phone] | [phone] | | | | | | | [...] this encounter Miscellaneous Notes Telephone Encounter - Inna Bolivar - 05/17/2017 1:39 PM PDTPatient has been scheduled for his appointments. ele phone Encounter - Katia Corey - 05/17/2017 11:03 AM PDTPatient requested that I call [facility] at to schedule appointments. Called and left a voicemail message for sarah Zhang to call us back to schedule the ira durham appointments: 1. WOUND CHECK/WALKER (Implanted on 05-14-17) 2. OC/2-3 [facility] HOSP FUP/HEART FAILURE/WALKER 3. OC/THR PACER-SUW/3 MO INITIAL/WALKER Patient will be a New Patient in our Outpatient clinic. see referral #[id number].Electronicall y signed by Katia Corey at 05/17/2017 11:05 AM PDTTelephone Encounter - Katia Corey - 0 05/17/2017 11:03 AM PDT----- Message from Nancy Dougherty RN sent at 05/15/2017 15:33 PDT ----- Regarding: FW: Appt Dr Nettles also wants a visit in 2-3 weeks for heart failure. ----- Message ----- From: Nancy Dougherty RN Sent: 05/14/2017 10:33 To: Antonia Shi Cardiology Clinical Staff Subject: Appt Patient was implanted today by Dr Nettles and should be scheduled for a wound check in one wee k and an OC/THR in 3 months. Thanks! documented in this encount er Plan of Treatment +--------+ + + + + | Date | Type | Specialty | Care Team | Description | +--------+ + + + + | 07/20/ | Implant | Cardiology | Cruzito Bird, | Remote Device | | 2019 | Monitor | | MD [facility] | Interrogation | | | | | [address] [place] [place], | (Primary Dx); | | | | | [place] [address] | Pacemaker Dual | | | | | [phone] | Chamber, MRI | | | | | | compatible, 05/14/17 | | | | | | [facility]; | | | | | | 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) | +--------+ + + + + | 01/05/ | Office | Cardiology | Emely Gabriel, | | | 2020 | Visit | | [facility] [address] | | | | | | [place] | | | | | | [id number] | | | | | | | | +--------+ + + + + documented as of this encounter Visit Diagnoses Not on filedocumented in this encounter"
--- OUTSIDE RECORDS SUMMARY | ~2020-05-18 | XMS | Encounter Summary ---
Demographics + + + | Address | [address] | | | [place] [address] | + + + | Home Phone | | + + + | Preferred Language | Unknown | + + + | Marital Status | | + + + | Nondenominational Affiliation | 1061 | + + + | Race | Unknown | + + + | Ethnic Group | Unknown | + + + Author + + + | Author | [facility] | | | and [place] | + + + | Organization | [facility] | | | and [...] Team Providers + +------+ + | Care Hand Cell Tuber Name | Role | Phone | + +------+ + | Antonio Paulino MD | PCP | | + +------+ + Encounter Details +--------+ + + + + | Date | Type | Department | Care Team | Description | +--------+ + + + + | 05/13/ | Orders Only | [facility] [place] | Cruzito Bird, | Tachycardia-bradycar | | 2017 | | CARDIOLOGY [address] [place] | pablo syndrome (HCC) | | | | [place], | [place], | | | | | [place] [address] | [place] [address] | | | | | [phone] | [phone] | | | | | | | [...] | 2020 | Monitor | | [address] [facility] | Interrogation | | | | | [place], | (Primary Dx); | | | | | [place] [address] | Pacemaker Dual | | | | | [phone] | Chamber, MRI | | | | | | compatible, 05/14/17 | | | | | | [facility]; | | | | | | 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) | +--------+ + + + + | 01/05/ | Office | Cardiology | Emely Gabriel | | | 2020 | Visit | | FINAL INSPECTOR MOVEMENT ASSEMBLY [address] | | | | | | [place] | | | | | | [address] | | | | | | | [...]
--- OUTSIDE RECORDS SUMMARY | ~2020-05-18 | XMS | Encounter Summary ---
Demographics + + + | Address | [address] | | | [place] [address] | + + + | Home Phone | | + + + | Preferred Language | Unknown | + + + | Marital Status | | + + + | Christian Affiliation | 1061 | + + + | Race | Unknown | + + + | Ethnic Group | Unknown | + + + Author + + + | Author | [facility] | | | and [place] | + + + | Organization | [facility] | | | [...] Team Providers + +------+ + | Care Senior Editor Name | Role | Phone | + [...] Device | | 2018 | Monitor | CARDIOLOGY [address] | [address] | Interrogation | | | | [place], | [place], | (Primary Dx); | | | | [place] [address] | [place] [address] | Pacemaker Dual | | | | [phone] | [phone] | Chamber, MRI | | | | [...] Paceart documentation and remote PDF scanned into e(ye)BRAIN for remote interrogation re sults. Data collected [...] Dx); | | | | | [place] [address] | Pacemaker Dual | | | | | [phone] | Chamber, MRI | | | | [...] [place] | | | | | | [address] | | | | | | | [...] remote PDF scanned into | | | e(ye)BRAIN for remote interrogation results. Data collected by [...]
--- OUTSIDE RECORDS SUMMARY | ~2020-05-18 | XMS | Encounter Summary ---
Demographics + + + | Address | [address] | | | [place] [address] | + + + | Home Phone | | + + + | Preferred Language | Unknown | + + + | Marital Status | | + + + | Restorationism Affiliation | [id number] | + + + | Race | Unknown | + + + | Ethnic Group | Unknown | + + + Author + + + | Author | [facility] | | | and [place] | + + + | Organization | [facility] | | | [...] Team Providers + +------+ + | Care Flight Test Engineer Name | Role | Phone | + +------+ + | No, Physician | PCP | Unavailable | + +------+ + Reason for Visit + + + | Reason | Comments | + + + | Chest Pain | | + + + Auth/Cert +--------+--------+ + + + + | Status | Reason | Specialty | Diagnoses / | Referred By | Referred To | | | | | Procedures | Contact | Contact | +--------+--------+ + + + + | | | | Diagnoses | | | | | | | | | | | | | | Hyperkalemia | | | | | | | | | | | | | | Bradycardia | | | | | | | Elevated | | | | | | | INR | | | | | | | Elevated | | | | | | | troponin | | | | | | | Pleural | | | | | | | effusion, | | | | | | | left Acute | | | | | | | renal | | | | | | | failure, | | | | | | | unspecified | | | | | | | acute renal | | | | | | | failure type | | | | | | | ([facility]) | | | | | | | | | | +--------+--------+ + + + + Encounter Details +--------+ + + + + | Date | Type | Department | Care Team | Description | +--------+ + + + + | 02/27/ | Hospital | [facility] | Jose, | Acute renal failure, | | 2017 - | Encounter | [facility] | Tristan Truong MD [address] | unspecified acute | | | | [address] [place] | [address] [place] | renal failure type | | 03/04/ | | [place] [address] | [place] [address] | ([facility]) (Primary Dx); | | 2017 | | [phone] | [phone] | Bradycardia; | | | | | | Hyperkalemia; | | | | | Sy Hopkins MD | Elevated INR; | | | | | [address] | Elevated troponin; | | | | | [place] | Pleural effusion, | | | | | [id number] | left | | | | | | | [...] + + + | Blood Pressure | 122/55 | 03/04/2017 7:00 AM | | | | | PDT | | + + + + + | Pulse | 68 | 03/04/2017 7:00 AM | | | | | PDT | | + + + + + | Temperature | 36.2 C (97.2 F) | 03/04/2017 7:00 AM | | | | | PDT | | + + + + + | Respiratory Rate | 20 | 03/04/2017 7:00 AM | | | | | PDT | | + + + + + | Oxygen Saturation | 93% | 03/04/2017 7:00 AM | | | | | PDT | | + + + + + | Inhaled Oxygen | - | - | | | Concentration | | | | + + + + + | Weight | 95.7 kg (210 lb 15.7 | 03/04/2017 6:00 AM | | | | oz) | PDT | | + + + + + | Height | 167.6 cm (5' 6") | 02/27/2017 1:23 PM | | | | | PDT | | + + + + + | Body Mass Index | 34.05 | 02/27/2017 1:23 PM | | | | | PDT | | + + + + + documented in this encounter Functional Status + + + + | Functional Status | Response | Date of Assessment | + + + + | Are you deaf or do you have serious | Yes | 03/04/2017 | | difficulty hearing? | | | + + + + | Are you blind or do you have serious | No | 03/04/2017 | | difficulty seeing, even when wearing | | | | glasses? | | | + + + + | Do you have serious difficulty walking or | Yes | 03/04/2017 | | climbing stairs? (5 years old or older) | | | + + + + | Do you have difficulty dressing or bathing? | No | 03/04/2017 | | (5 years old or older) | | | + + + + | Because of a physical, mental, or emotional | Yes | 03/04/2017 | | condition, do you have difficulty [...] physical, mental, or emotional | Yes | 03/04/2017 | | condition, do you have serious difficulty | | | | concentrating, remembering, or making | | | | decisions? (5 years old or older) | | | + + + + documented as of this encounter Discharge Summaries Amada Cates RN - 03/04/2017 5:00 PM PDTReviewed d/c papers with patient and son. Asaf aj learning using teach back. Patient able to state he will not take coumadin tonig ht as he already had todays dose. Patient able to [facility] void trials, INR draw, and possibly restarting celexa. Discussed his refusal of celexa during his stay and his daughters desire for him to be on it. Patient will discuss with his daughters and address [facility] at f[facility]u appointment. Midline removed per nyla fernandez, bleeding stopped prior to departure. Leg bag and night bag given to patient. Instruct ions and demonstration completed. Patient and son state they know they can request RN assist ance with leg bag/drainage bag if needed at assisted living facility. Patient dressed, given first dose of Keflex, escorted off unit via w/c assisted by unit staff to son's car for tra nsportation. y Hopkins MD - 03/04/2017 2:20 PM PDTFormatting of this note might be different from the or iginal. [facility] DISCHARGE SUMMARY Pt. Name/Age/: Jacklyn Siddiqi 81 y.o. 1935 Date of Admission: 02/27/2017 Date of Discharge: 03/04/2017 Admitting Physician: Sy Hopkins MD Primary Care Provider: No Physician on file Discharging Physician: Sy Hopkins MD DISCHARGE DIAGNOSES: 1. Acute renal failure with chronic prerenal azotemia, thought secondary to obstructive ur opathy 2. History of CHF with retained left ventricular function 3. Elevated troponin thought secondary to acute renal failure without the typical pattern of ischemia 4. Elevated PTINR likely secondary to the development of acute renal failure 5. History of aortic valve replacement 6. 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 Chronic anemia 8. Mild thrombocytopenia with platelet count at discharge 112,000 9. History of lacunar CVA 10. 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 History of dementia DISCHARGE MEDICATIONS: Discharge Medications New Medications Details cephalexin 500 mg capsule Take 1 capsule by mouth 2 times daily. Indications: UTI - Lower aka: KEFLEX senna 8.6 mg tablet Take 2 tablets by mouth every morning. aka: SENOKOT Changed Medications Details metoprolol tartrate 25 mg tablet Take 0.5 tablets by mouth 2 times daily. What changed: how much to take aka: LOPRESSOR tamsulosin 0.4 mg Caps Take 1 capsule by mouth 2 times daily. What changed: when to take this aka: FLOMAX Unchanged Medications Details albuterol 90 mcg/puff inhaler Inhale 2 puffs into the lungs every 4 hours as needed for Wheezing. artificial tears 0.5% Soln Place 1 drop into both eyes 4 times daily as needed (for dry eyes). aka: REFRESH PLUS atorvaSTATin 10 mg tablet Take 10 mg by mouth nightly. aka: LIPITOR benzonatate 100 mg capsule Take 100 mg by mouth Twice daily as needed for Cough. aka: TESSALON cyanocobalamin 1000 MCG tablet Take 1,000 mcg by mouth Daily. aka: VITAMIN B-12 docusate sodium 250 MG capsule Take 250 mg by mouth 2 times daily. aka: COLACE donepezil 10 MG tablet Take 5 mg by mouth Daily. aka: ARICEPT ferrous sulfate 325 mg tablet Take 325 mg by mouth daily (with breakfast). Patient takes three times weekly on Mon, Wed, Fri furosemide 40 mg tablet Take 40 mg by mouth 2 times daily. aka: LASIX levothyroxine 25 mcg tablet Take 25 mcg by mouth every morning (before breakfast). aka: SYNTHROID, LEVOTHROID magnesium oxide 420 MG Tabs Take 420 mg by mouth Daily. aka: MAOX nitroglycerin 0.[address] 1 tablet under the tongue every 5 minutes as needed for chest pain, up to 3 doses in 15 minutes - take blood pressure first - call 911 for unrelieved chest pain aka: NITROSTAT traZODone 50 mg tablet Take 50 mg by mouth nightly as needed for Sleep. aka: DESYREL warfarin 2 mg tablet Take 5 mg by mouth nightly. aka: COUMADIN Discontinued Medications lisinopril 10 mg tablet aka: PRINIVIL, ZESTRIL metOLazone 2.5 mg tablet aka: ZAROXOLYN potassium chloride 10 MEQ ER tablet aka: KLOR-CON DISCHARGE INSTRUCTIONS: Follow-up Information Follow up with [facility]. Why: appointment at [place] in 7-10 days. Spontaneous voiding trial needs to occur in 7-10 day s Contact information: [address] [facility] [address] patient should have voiding trial in 7-10 days (approximately 2 weeks after placement of F oley catheter) Outpatient pro time should be obtained on , 03/07 and then weekly until stable RESULTS: nscription Duane Narrative Transthoracic Echocardiography Report (TTE) Demographics Patient Name AMANDA VILLASENOR Room Number 425 Patient Number [id number] Date of Study 02/28/2017 Visit Number [id number] Referring Physician SANDEEP Nieves Date of 1935 Shot Tube Machine Tender TRELL LEWIS RDCS Age 81 year(s) Interpreting MARGE FLOR Residential Designer CRUZITO Rossi MD Gender Male Nurse Stress Driller Helper Procedure Type of Study TTE procedure: ECHO Complete. Procedure date Date: [...] Normal IVC with normal respiratory collapse. Signature Findings Mitral Valve Thickening and calcification of the mitral valve leaflets. Mild mitral annular calcification is present. Aortic Valve Normal functioning mechanical aortic valve replacement. Tricuspid Valve Mild tricuspid regurgitation suggestive of a mildly elevated right systolic pressure of 45-50 mmHg. Pulmonic Valve Structurally normal pulmonic valve with trace regurgitation. Left Atrium The left atrium is mildly dilated. Left Ventricle Normal left ventricular cavity size. Mild concentric left ventricular hypertrophy. Ejection fraction is visually estimated at 70%. Right Atrium Normal right atrium. Right Ventricle Normal right ventricular size. Reduced right ventricular global systolic function. TAPSE = 1.2 cm. Pericardial Effusion No evidence of pericardial effusion. Miscellaneous Normal aortic root. The IVC appears normal. IVC respiratory change in dimension > 50%. Valves Mitral Valve Peak E-Wave: 1.32 m/s Peak A-Wave: 0.59 m/s Tissue Doppler Septal e' Velocity: 0.07 m/s Septal E/e' Ratio:19.78 Aortic Valve Peak Velocity: 2.2 m/s Area (continuity): 1.76 cm^2 Peak Gradient: 19.36 mmHg Mean Gradient: 11.99 mmHg Tricuspid Valve TR Velocity: 3.06 m/s LVOT Peak Velocity: 1.27 m/s LVOT Diameter: 1.82 cm Structures Left Atrium LA A/P Dimension: 4.76 cm LA Area: 21.8 cm^2 LA Vol/BSA Index: 40 mL/m^2 LA Volume: 81.33 ml EF [id number]% Left Ventricle Diastolic Dimension: 4.13 cm Septum Diastolic: 1.44 cm PW Diastolic: 1.35 cm EF Calculated: 72% Miscellaneous Aorta Aortic Root: 3.25 cm Ascending Aorta: 3.41 cm Results for JACKLYN SIDDIQI ( ) as of 03/04/2017 14:07 Ref. Range 02/28/2017 05:25 03/01/2017 05:20 03/02/2017 04:58 03/03/2017 05:47 03/04/2017 05:58 NA Latest Ref Range: 136-149 mmol/L 145 137 139 136 135 (L) K Latest Ref Range: 3.5-5.1 mmol/L 5.1 4.9 4.6 4.7 4.6 Chloride Latest Ref Range: 98-109 mmol/L 114 (H) 107 107 107 107 Carbon dioxide Latest Ref Range: 24-31 mmol/L 24 24 26 25 24 ANION GAP Latest Ref Range: 3-16 mmol/L 7 6 6 4 4 GLUCOSE Latest Ref Range: 70-109 mg/dL 104 119 (H) 107 101 90 BUN Latest Ref Range: 7-18 mg/dL 106 (HH) 82 (H) 53 (H) 38 (H) 38 (H) Creatinine Latest Ref Range: 0.60-1.30 mg/dL 2.49 (H) 2.25 (H) 1.69 (H) 1.63 (H) 1.67 (H) BUN/CREA Unknown 42.6 36.4 31.4 23.3 22.8 ALBUMIN Latest Ref Range: 3.2-5.0 g/dL 3.2 3.0 (L) Albumin/Globulin ratio Latest Ref Range: 0.8-2.0 1.3 Total protein Latest Ref Range: 6.0-7.8 g/dL 5.6 (L) EGFR IF NOT Latest Ref Range: >=60 mL/min/1.73m2 25 (L) 28 (L) 39 (L) 41 ( L) 39 (L) Calcium Latest Ref Range: 8.3-10.5 mg/dL 8.5 8.1 (L) 8.2 (L) 8.5 8.3 PHOSPHORUS Latest Ref Range: 2.5-4.6 mg/dL 4.4 ALK PHOS Latest Ref Range: 40-110 U/L 28 (L) ALT (SGPT) (REF) Latest Ref Range: 6-45 U/L 15 AST (SGOT) (REF) Latest Ref Range: 10-42 U/L 34 BILIRUBIN TOTAL Latest Ref Range: 0.1-1.5 mg/dL 0.7 GLOBULIN Latest Ref Range: 2.1-3.8 g/dL 2.4 B-TYPE NATRIURETIC PEPTIDE Latest Ref Range: <100 pg/mL 296 (H) 336 (H) 410 (H) 377 (H) Results for JACKLYN SIDDIQI ( ) as of 03/04/2017 14:07 Ref. Range 02/28/2017 05:25 03/01/2017 05:20 03/02/2017 04:58 03/03/2017 05:47 03/04/2017 05:58 Protime Latest Ref Range: 11.3-13.9 seconds 48.6 (H) 30.3 (H) 22.8 (H) 19.5 (H) 22.2 (H) INR Latest Ref Range: 0.90-1.10 5.07 (HH) 2.80 (H) 1.95 (H) 1.60 (H) 1.89 (H) HOSPITAL COURSE: Please refer to the H&P for full details. In short this 81-year-old male was referred from the [facility] outpatient clinics on the day of assessment for complaints of chest p ain and shortness of breath. At the time of presentation he reportedly been under a lot of anxiety was unhappy with his living situation in [place]. On assessment he was found to h ave new renal failure with a mild elevation troponin and thus was admitted. His admission t roponin was 0.09 with a rattly of 2.77 and BUN of 118. In addition potassium was 5.3 with a PT/INR 4.6. Fractional excretion of sodium was calculated based on admission values and wa s found to be 5.17, strongly suggestive of postobstructive renal failure rather than prerena l azotemia. In the ER we had the patient urinating excessively at 450 cc urinary residual. A Blake catheter was placed and he was began on IV fluids and monitored. The patient's tro ponin fell consistent with improving renal function rather than typical of a pattern of isch emia. A follow-up renal ultrasound was obtained which showed no persistent hydronephrosis. Of note the patient did have a aortic valve replacement in 2004 and had endocarditis in 9 treated with 6 weeks of ampicillin and gentamicin with enterococcus being his source. Rachna s I did discuss with the patient the fact that the catheter should be left for 2 weeks and t hen a spontaneous voiding trial should be entertained by his outpatient physicians. I did o btain a urine from him on the day prior to discharge with results showing 15-25 white cells and 5200 red cells prior prior field. Pending culture I am going to place him on cephalexi n noting his urine is currently no growth. Otherwise with hydration and correction of obstruction the patient's creatinine has returne d to probable baseline at 1.67 with a BUN of 38. Patient's BMP is in the low 300s and he is asymptomatic with respect to his breathing on room air. Patient did on admission have comp laints of chest pain and during hospitalization he had an episode that was responsive to liq uid antacids. Given his troponin did not have an ischemic pattern with the discomfort we ob served here responsive to antacids but not nitrates, I did not elect to perform stress testi ng on this individual. Should he have further chest pain then consideration of outpatient [facility] medicine stress testing could be entertained. The patient will be discharged with he r recommendation of having a ProTime obtained this on 03/07. He'll be discharged on Coumadin 5 mg daily. Note on the day of discharge his INR was 1.89 he received a single do se Lovenox 100 mg bridging him with a early dose is 7.5. He'll be returning to his 5 mg dos e daily at the time of discharge. His furosemide will be reinitiated 40 mg twice daily with metolazone is discontinued. He should have follow-up renal function testing in one week an d I recommend he see his PCP in 1 week's time and be referred to urology for consideration o f a spontaneous voiding trial and further assessment noting previous elevated PSA and refusa l for biopsy. PHYSICAL EXAM: Temp: 36.2 C (97.2 F), Pulse: 68, Resp: 20, BP: 122/55 mmHg, SpO2 93 % on room air at f low rate L/min Temp Min: 36.2 C (97.2 F) Max: 36.6 C (97.9 F) Weight: 89.812 kg (198 lb) Patient seen and examined by me on discharge day Greater than 30 minutes were spent on discharge and coordination of post-hospital care. Electronically signed by: Sy Hopkins MD, 03/04/2017 14:50 [facility] Portions of this chart may have been created with [employer] voice recognition software. Occasi onal wrong-word or sound-alike substitutions may have occurred due to the inherent carter itations of voice recognition software. Please read the chart carefully and recognize, using context, where these substitutions have occurred documented in this encounter Discharge Instructions Instructions Tristan Garcia MD - 02/27/2017No motoprolol today... documented in this encounter Medications at Time [...] + + + +---------+ + + | cephalexin | Take 1 capsule by | 20 | 0 | 03/04/20 | | | (KEFLEX) 500 mg | mouth 2 times daily. | capsule | | 17 | 7 | | capsuleIndications: | Indications: UTI - | | | | | | UTI - LOWER | Lower | | | | | + + + +---------+ + + | cyanocobalamin | Take 1,000 mcg by | | 0 | | | | (VITAMIN B-12) 1000 | mouth Daily. | | | | 7 | | MCG tablet | | | | | | [...] | | | 40 mg tablet | Daily. | | | | 7 | + + + +---------+ + + | magnesium oxide | Take 420 mg by mouth | | 0 | | | | (MAOX) 420 MG TABS | Daily. | | | | 7 | + + + +---------+ + + | metOLazone | Take 2.5 mg by | | 0 | 05/08/20 | | | (ZAROXOLYN) 2.5 mg | mouth. | | | 16 | 7 | | tablet | | | | | | + + + +---------+ + + | metOLazone 2.5 mg | Take 1 tablet by | | 0 | 05/08/20 | | | tablet | mouth daily. | | | 16 | 0 | + + + +---------+ + + | metoprolol | Take 0.5 tablets by | | 0 | 03/04/20 | | | tartrate (LOPRESSOR) | mouth 2 times daily. | | | 17 | 7 | | 25 mg tablet | | | | | [...] + + + +---------+ + + | senna (SENOKOT) | Take 2 tablets by | 120 | 0 | 03/04/20 | | | 8.6 mg tablet | mouth every morning. | tablet | | 17 | 7 | + + + +---------+ + + | tamsulosin | Take 1 capsule by | 30 | 0 | 03/04/20 | | | (FLOMAX) 0.4 mg CAPS | mouth 2 times daily. | capsule | | 17 | 7 | + + + +---------+ [...] documented as of this encounter Progress Notes Sy Hopkins MD - 03/03/2017 6:59 PM PDT [facility] Hospitalist Progress Note Jacklyn Siddiqi is a 81 y.o. male ASSESSMENT and PLAN: 1. Acute renal failure likely multifactorial with postobstructive renal failure contributi ng. Patient currently is receiving half-normal saline at 75 cc per hour. By mouth intake is im proving and x-ray and blood work suggests increasing pulmonary edema thus we'll reduce IV fl uids to 40 cc per hour and increase furosemide to 40 mg twice daily. 2. Anticoagulation for mechanical aortic valve Patient's INR today is 1.60 this a.m. and 7 1/2 mg of Coumadin was given. PT/INR will be c hecked in the a.m. and if not corrected we'll place patient on Lovenox. 3. Hyperkalemia Corrected 4. Elevated troponin Currently is not in a pattern to suggest ischemia. With normal LV function I think this is most likely related to the patient's renal failure. 5. Catheter placement for obstructive urinary dysfunction We'll repeat patient's UA noting he does have artificial heart valve. SUBJECTIVE: Patient denies ongoing problems reporting he feels better. He denies nausea, shortness o f breath, or other complaints. VITALS: Temp: 36.6 C (97.9 F), Pulse: 54, Resp: 20, BP: 163/69 mmHg, SpO2 98 % on room air at f low rate L/min Temp Min: 36.3 C (97.3 F) Max: 36.6 C (97.9 F) Weight: 89.812 kg (198 lb) Intake/Output Summary (Last 24 hours) at 03/03/17 8649 Last data filed at 03/03/17 1800 Gross per 24 hour Intake 3663 ml Output 2150 ml Net 1513 ml PHYSICAL EXAM: Cardiovascular: Regular rate and rhythm Respiratory: Clear bilaterally Abdomen: Soft without tenderness Extremities: Without edema DIAGNOSTIC STUDIES: Available data and images were reviewed personally. Significant results and findings are a ddressed here or in the Assessment and Plan. Lab Results Component Value Date HGB 10.4* 03/03/2017 HCT 31.9* 03/03/2017 PLT 112* 03/03/2017 PLT Decreased* 03/03/2017 WBC 6.4 03/03/2017 Lab Results Component Value Date NA 136 03/03/2017 K 4.7 03/03/2017 CL 107 03/03/2017 CO2 25 03/03/2017 CREA 1.63* 03/03/2017 BUN 38* 03/03/2017 MG 2.5 03/16/2016 PHOS 4.4 03/01/2017 BNP 410* 03/03/2017 No results found for: POCGLU No results found for: POCGLU Xr Chest Pa And Lateral 03/03/2017 CLINICAL INFORMATION: chf. COMPARISON: 03/02/2017 and 02/27/2017. FINDINGS: Fronta l and lateral views of the chest. Median sternotomy wires with valvuloplasty changes. Lungs: Right lung remains clear. Unchanged aeration of the left lung base with persistent airspace opacities and left pleural effusion. No pneumothorax. Heart: Unchanged. Mediastinum: Centra l pulmonary vasculature has a normal appearance. IMPRESSION - No significant interval change with persistent left basilar airspace disease and left pleural effusion. Dictated and Brooklynn d by: Jadon White MD Electronically signed: 03/03/2017 1:21 PM Xr Chest Pa And Lateral 03/03/2017 CLINICAL INFORMATION: chf. COMPARISON: 02/27/2017. FINDINGS: Frontal and lateral views of the chest. Median sternotomy wires with valvuloplasty changes. Lungs: Unchanged aer ation of the left lung base with persistent consolidation with probable pleural effusion. Th e right lung is clear. No pneumothorax. Heart: Unchanged. Mediastinum: Central pulmonary vas culature has a normal appearance. IMPRESSION - Unchanged left lung base airspace disease and pleural effusion. Dictated and Signed by: Jadon White MD Electronically signed: 017 1:05 PM Total time of approximately 25 minutes was spent with the patient and/or patient's family, and/or on the patient's floor/unit, of which more than 50% was spent counseling and/or coord ination the patient's care as outlined above. Sy Hopkins 03/03/2017 18:59 [facility] Portions of this chart may have been created with [employer] voice recognition software. Occasi onal wrong-word or sound-alike substitutions may have occurred due to the inherent carter itations of voice recognition software. Please read the chart carefully and recognize, using context, where these substitutions have occurred arker, Sy Ac MD - 0 03/02/2017 7:39 PM PDT [facility] Hospitalist Progress Note Jacklyn Siddiqi is a 81 y.o. male ASSESSMENT and PLAN: 1. Acute renal failure likely multifactorial with postobstructive renal failure contributi ng. Patient currently is receiving half-normal saline at 75 cc per hour. By mouth intake is im proving and we'll repeat labs in the a.m. 2. Anticoagulation for mechanical aortic valve Patient's INR today is 1.95 at this point will continue Coumadin 3 mg and repeat values in the a.m. tomorrow 3. Hyperkalemia Continue fluid repletion and holding potassium. 4. Elevated troponin Currently is not in a pattern to suggest ischemia. With normal LV function I think this is most likely related to the patient's renal failure. SUBJECTIVE: Patient denies ongoing problems reporting he feels better. He denies nausea, shortness o f breath, or other complaints. He did have an episode of chest pain today that responded to liquid antacids. Continue to follow him. VITALS: Temp: 35.9 C (96.6 F), Pulse: 59, Resp: 20, BP: 131/61 mmHg, SpO2 97 % on room air at f low rate L/min Temp Min: 35.9 C (96.6 F) Max: 36.5 C (97.7 F) Weight: 89.812 kg (198 lb) Intake/Output Summary (Last 24 hours) at 03/02/171939 Last data filed at 03/02/17 1800 Gross per 24 hour Intake 3801 ml Output 3575 ml Net 226 ml PHYSICAL EXAM: Cardiovascular: Regular rate and rhythm Respiratory: Clear bilaterally Abdomen: Soft without tenderness Extremities: Without edema DIAGNOSTIC STUDIES: Available data and images were reviewed personally. Significant results and findings are a ddressed here or in the Assessment and Plan. Lab Results Component Value Date HGB 10.0* 02/28/2017 HCT 31.3* 02/28/2017 PLT 109* 02/28/2017 PLT Decreased* 02/28/2017 WBC 5.1 02/28/2017 Lab Results Component Value Date NA 139 03/02/2017 K 4.6 03/02/2017 CL 107 03/02/2017 CO2 26 03/02/2017 CREA 1.69* 03/02/2017 BUN 53* 03/02/2017 MG 2.5 03/16/2016 PHOS 4.4 03/01/2017 BNP 336* 03/02/2017 No results found for: POCGLU No results found for: POCGLU No results found. Total time of approximately 25 minutes was spent with the patient and/or patient's family, and/or on the patient's floor/unit, of which more than 50% was spent counseling and/or coord ination the patient's care as outlined above. Sy Hopkins 03/02/2017 19:40 [facility] Portions of this chart may have been created with [employer] voice recognition software. Occasi onal wrong-word or sound-alike substitutions may have occurred due to the inherent carter itations of voice recognition software. Please read the chart carefully and recognize, using context, where these substitutions have occurred Javier Juares RN - 03/02/2017 8:00 AM PDTPt up in chair, c/o low back pain "from laying in bed too long", den ied Rx. Juan Jose Mckeon RN - 03/01/2017 7:50 PM PDTPatient requests that we do not release information about his condition to his daughter Denisse. He prefers that we refer her either to himself, or to de s son Jacklyn. Sy Ibarra MD - 03/01/2017 1:20 PM PDTFormatting of this note might be different from the orig inal. [facility] Hospitalist Progress Note Jacklyn Siddiqi is a 81 y.o. male ASSESSMENT and PLAN: 1. Acute renal failure likely multifactorial with postobstructive renal failure contributi ng. Patient currently is receiving quarter normal saline at 150 cc per hour.. Sodium and chlor jerry are correcting. I'm going to advance patient half-normal saline at this time for volume . 2. Anticoagulation for mechanical aortic valve Patient's INR today was up to 5 and 1.3 mg of vitamin K is given by mouth. We'll start Cou madin 3 mg daily. 3. Hyperkalemia Continue fluid repletion and holding potassium. 4. Elevated troponin Currently is not in a pattern to suggest ischemia. With normal LV function I think this is most likely related to the patient's renal failure. SUBJECTIVE: Patient denies ongoing problems reporting he feels better. He denies nausea, shortness o f breath, or other complaints. VITALS: Temp: 36.2 C (97.1 F), Pulse: 68, Resp: 20, BP: 110/52 mmHg, SpO2 95 % on room air at f low rate L/min Temp Min: 35.9 C (96.6 F) Max: 36.2 C (97.2 F) Weight: 89.812 kg (198 lb) Intake/Output Summary (Last 24 hours) at 03/01/17 1320 Last data filed at 03/01/17 1203 Gross per 24 hour Intake 3240 ml Output 2900 ml Net 340 ml PHYSICAL EXAM: Cardiovascular: Regular rate and rhythm Respiratory: Clear bilaterally Abdomen: Soft without tenderness Extremities: Without edema DIAGNOSTIC STUDIES: Available data and images were reviewed personally. Significant results and findings are a ddressed here or in the Assessment and Plan. Lab Results Component Value Date HGB 10.0* 02/28/2017 HCT 31.3* 02/28/2017 PLT 109* 02/28/2017 PLT Decreased* 02/28/2017 WBC 5.1 02/28/2017 Lab Results Component Value Date NA 137 03/01/2017 K 4.9 03/01/2017 CL 107 03/01/2017 CO2 24 03/01/2017 CREA 2.25* 03/01/2017 BUN 82* 03/01/2017 MG 2.5 03/16/2016 PHOS 4.4 03/01/2017 BNP 296* 03/01/2017 No results found for: POCGLU No results found for: POCGLU Xr Chest Pa And Lateral 02/27/2017 XR CHEST PA AND LATERAL 02/27/2017 1:30 PM HISTORY: Chest Pain. COMPARISON: Multi ple priors. Findings: Sternotomy wires and a prosthetic cardiac valve are seen. The heart is borderline enlarged. There is atherosclerosis of the aorta. Mediastinum is unremarkable. Ce ntral pulmonary vasculature is normal. Stable consolidation is in the left lung base with bl unting of the left costophrenic angle. There is mild scarring in the right lung base. Mild r ight curvature of the thoracic spine is present along with mild spondylosis. There is diffus e osteopenia. IMPRESSION - Stable consolidation in left lung base with blunting of the left costophrenic angle that could represent atelectasis, pneumonia, and/or pleural effusion. Bor derline cardiomegaly. Dictated and Signed by: Deep Garcia MD Electronically signed: 017 2:10 PM Us Renal Limited 02/28/2017 RENAL ULTRASOUND 02/28/2017 9:25 AM CLINICAL HISTORY: ARF COMPARISON: RENAL ULTRA SOUND MARCH 2015 FINDINGS: The right kidney measures 9.7 x 4.0 x 5.4 cm and the left kidney m easures 10.7 x 4.8 x 5.1 cm. Resistive indices are similarly elevated up to 0.86 on the rig ht and 0.82 on the left. No conclusive renal parenchymal abnormality is visible. There is n o hydronephrosis. The bladder is decompressed by a catheter and is not evaluated. IMPRES ANGELIQUE - 1. SIMILAR ELEVATION OF RENAL RESISTIVE INDICES SUGGESTING MEDICAL RENAL DISEASE. N O HYDRONEPHROSIS. Dictated and Signed by: Yakov Starks MD Electronically signed: 02/28/2017 1:35 PM Total time of approximately 25 minutes was spent with the patient and/or patient's family, and/or on the patient's floor/unit, of which more than 50% was spent counseling and/or coord ination the patient's care as outlined above. Sy Hokpins 03/01/2017 13:20 [facility] Portions of this chart may have been created with Spect[employer]Linear voice recognition software. Occasi onal wrong-word or sound-alike substitutions may have occurred due to the inherent carter itations of voice recognition software. Please read the chart carefully and recognize, using context, where these substitutions have occurred arker, Sy Ac MD - 0 02/28/2017 5:19 PM PDT [facility] Hospitalist Progress Note Jacklyn Siddiqi is a 81 y.o. male ASSESSMENT and PLAN: 1. Acute renal failure likely multifactorial with postobstructive renal failure contributi ng. Patient currently receiving IV fluids a heart cc per hour with quarter normal saline being given because of hyperchloremic acidosis and rising sodium. The patient's echocardiography s hows shows normal left ventricular function with LVEF of 0.7, inspiratory collapse of his IV C, and a normal functioning aortic valve. Because of this I'm going to increase his IV flui ds to 150 cc per hour and encourage increased by mouth intake. The patient prior to admissi on was on lisinopril 10 mg daily which we will continue to hold. Note he was also on 40 mg of furosemide twice daily and metolazone 2.5 mg daily. We reduced furosemide 40 mg once terese ly and will continue to follow the patient's daily labs. 2. Anticoagulation for mechanical aortic valve Patient's INR today was up to 5 and 1.3 mg of vitamin K is given by mouth. 3. Hyperkalemia Continue fluid repletion and holding potassium. 4. Elevated troponin Currently is not in a pattern to suggest ischemia. With normal LV function I think this is most likely related to the patient's renal failure. SUBJECTIVE: Patient denies ongoing problems reporting he feels better. He denies nausea, shortness o f breath, or other complaints. VITALS: Temp: 36.1 C (97 F), Pulse: 58, Resp: 20, BP: 110/44 mmHg, SpO2 96 % on room air at shayan w rate L/min Temp Min: 35.8 C (96.4 F) Max: 36.5 C (97.7 F) Weight: 89.812 kg (198 lb) Intake/Output Summary (Last 24 hours) at 02/28/17 1719 Last data filed at 02/28/17 1712 Gross per 24 hour Intake 2296 ml Output 1825 ml Net 471 ml PHYSICAL EXAM: Cardiovascular: Regular rate and rhythm Respiratory: Clear bilaterally Abdomen: Soft without tenderness Extremities: Without edema DIAGNOSTIC STUDIES: Available data and images were reviewed personally. Significant results and findings are a ddressed here or in the Assessment and Plan. Lab Results Component Value Date HGB 10.0* 02/28/2017 HCT 31.3* 02/28/2017 PLT 109* 02/28/2017 PLT Decreased* 02/28/2017 WBC 5.1 02/28/2017 Lab Results Component Value Date NA 145 02/28/2017 K 5.1 02/28/2017 CL 114* 02/28/2017 CO2 24 02/28/2017 CREA 2.49* 02/28/2017 BUN 106* 02/28/2017 MG 2.5 03/16/2016 PHOS 3.2 04/04/2015 BNP 368* 02/27/2017 No results found for: POCGLU No results found for: POCGLU Xr Chest Pa And Lateral 02/27/2017 XR CHEST PA AND LATERAL 02/27/2017 1:30 PM HISTORY: Chest Pain. COMPARISON: Multi ple priors. Findings: Sternotomy wires and a prosthetic cardiac valve are seen. The heart is borderline enlarged. There is atherosclerosis of the aorta. Mediastinum is unremarkable. Ce ntral pulmonary vasculature is normal. Stable consolidation is in the left lung base with bl unting of the left costophrenic angle. There is mild scarring in the right lung base. Mild r ight curvature of the thoracic spine is present along with mild spondylosis. There is diffus e osteopenia. IMPRESSION - Stable consolidation in left lung base with blunting of the left costophrenic angle that could represent atelectasis, pneumonia, and/or pleural effusion. Bor derline cardiomegaly. Dictated and Signed by: Deep Garcia MD Electronically signed: 017 2:10 PM Us Renal Limited 02/28/2017 RENAL ULTRASOUND 02/28/2017 9:25 AM CLINICAL HISTORY: ARF COMPARISON: RENAL ULTRA SOUND MARCH 2015 FINDINGS: The right kidney measures 9.7 x 4.0 x 5.4 cm and the left kidney m easures 10.7 x 4.8 x 5.1 cm. Resistive indices are similarly elevated up to 0.86 on the rig ht and 0.82 on the left. No conclusive renal parenchymal abnormality is visible. There is n o hydronephrosis. The bladder is decompressed by a catheter and is not evaluated. IMPRES ANGELIQUE - 1. SIMILAR ELEVATION OF RENAL RESISTIVE INDICES SUGGESTING MEDICAL RENAL DISEASE. N O HYDRONEPHROSIS. Dictated and Signed by: Yakov Starks MD Electronically signed: 02/28/2017 1:35 PM Total time of approximately 25 minutes was spent with the patient and/or patient's family, and/or on the patient's floor/unit, of which more than 50% was spent counseling and/or coord ination the patient's care as outlined above. Sy Hopkins 02/28/2017 17:19 [facility] Portions of this chart may have been created with [employer] voice recognition software. Occasi onal wrong-word or sound-alike substitutions may have occurred due to the inherent carter itations of voice recognition software. Please read the chart carefully and recognize, using context, where these substitutions have occurred Andres Oglesby RN - 02/28/2017 9:42 AM PDTPatient's BP is trending down, today at 0819 it was 100/50 and HR was [address] Hopkins advised to give morning dose of Furosemide and hold th e Metoprolol since HR was under 80 bpm. If BP elevates will administer Metoprolol.Jose zhao signed by Andres Howe RN at 02/28/2017 9:48 AM Dolly Ramachandran PharmD - 02/27/2017 8:23 PM PDT PHARMACY SERVICES: ADMISSION MEDICATION REVIEW Jacklyn Siddiqi is a 81 y.o. male admitted on 02/27/17. Patient is not a reliable historian. Location of Patient when reviewed: [x] ED [] Medical Floor Patient s prior to admit medication and over the counter (OTC) medications/herbal supplem ents list obtained from: [x] Verbal interview [] Patient ABLE to recall name, strength, and directions [x] Patient UNABLE to recall name, strength, and direction [] Patient able to recall SOME Name, strength, and directions [] Patient not interviewed or unable to supply information due to: [] Patient/family member provided a complete current medication list or bottles [x] MAR from SNF facility: [facility] [] Doctor's office: [] Pharmacy list names: [] [facility] KINESIOLOGIST (Prescription Monitoring Program) [] [employer] insurance reported information [] Care Everywhere [] Other sources: Vaccines up to date? Yes No Unsure Influenza [] [] [x] Pneumococcal [] [] [x] Tdap [] [] [x] Shingles [] [] [x] Noted medications discrepancies or medication-related issues: Dosage change: Medication: Prior to Admission Sig: Correct sig: Albuterol 90 mcg/puff inhaler 2 puffs every 4 hours as needed for wheezing 1 puff every 4 h ours as needed for wheezing Furosemide 80 mg in the morning, 40 mg in the evening for 1 week. After 1 week resume your normal dose of 40 mg twice daily 40 mg twice daily Metoprolol (as succinate) - 50 mg once daily (as tartrate) - 25 mg twice daily Potassium chloride 10 mEq twice daily 10 mEq once daily Tamsulosin 0.4 mg daily after breakfast 0.4 mg nightly Trazodone 50 mg nightly 50 mg nightly as needed for sleep Medication added: Medication: Prior to Admission Sig: Benzonatate 100 mg 1 capsule twice daily as needed for cough Cyanocobalamin 1000 mcg tablet 1 tablet daily Docusate sodium 250 mg 1 capsule twice daily Lisinopril 10 mg 1 tablet daily Magnesium oxide 420 mg 1 tablet daily Metolazone 2.5 mg 1 tablet daily Metoprolol tartrate 25 mg 1 tablet twice daily Nitroglycerin 0.[address] 1 tablet under the tongue every 5 minutes as needed fo r chest pain, up to 3 doses in 15 minutes - take blood pressure first - call 911 for unrelie belle chest pain Warfarin 2 mg 2.5 tablets every evening Removed therapy: Medication: Prior to Admission Sig: Reason for Removal: Amiodarone 400 mg 1 tablet twice daily Not taking per DEC Colchicine 0.6 mg 1 tablet as needed, uses tapering regimen over 8 days but is out Not taki ng per DEC Cyanocobalamin 1000 mcg caps 1 capsule daily Incorrect form, pt is taking tablet per MAR Desonide 0.05% cream Apply topically twice daily Not taking per MAR Fenofibrate 145 mg 1 tablet daily Not taking per MAR Furosemide 40 mg 2 tablets in the morning, 1 tablet in the evening for 1 week. After 1 week resume your normal dose of 40 mg twice daily Dosage change Guaifenesin-dextromethorphan 100-10 mg/5 ml syrup 5 ml by mouth 4 times daily as needed for cough Not taking per MAR Hydrocodone-acetaminophen 5-325 mg 1 tablet every 6 hours as needed for pain Not taking per MAR Magnesium oxide 400 mg 420 mg daily Incorrect form Metoprolol succinate 50 mg 1 tablet daily Dosage change/incorrect form Polyethylene glycol packet 1 diluted packet by mouth daily as needed Not taking per MAR Terbinafine 1% cream Apply topically 2 times daily Not taking per MAR Torsemide 20 mg 1 tablet daily Not taking per MAR (patient taking furosemide) Urea 20% cream Apply topically twice daily Not taking per MAR Warfarin 1 mg 6 mg daily Dosage change Other: Patient has taken all of his morning medications today. Medication review performed and electronically signed by Jerson Kaufman, Atmospheric Physics Professor 2016 17:18 Reviewed by: Dolly Rizzo PHARMD 02/27/2017 20:22 Javier Juares RN - 02/27/2017 6:10 PM PDT81 y/o male admitted for multiple problems and complaints. O riented to room and call system. Pt w/ unsteady gait to bathroom, loose BM (reddish orange i n color which pt states was from lots of tomatoes ingested). Lung sounds dim t/o on RA. HR r eg and bradycardiac, telemetry on. Foely with clear yellow urine. LAC IV flushed.Electronica lly signed by Javier Elizalde RN at 02/27/2017 6:57 PM PDTdocumented in this encounter H&P Notes Sy Hopkins MD - 02/27/2017 4:43 PM PDT Patient: Jacklyn Siddiqi : 1935: Age: 81 y.o. MedRec: [id number] Admission date: 02/27/2017 Hospital day #: Physician author: Sy Hopkins MD HISTORY AND PHYSICAL CHIEF COMPLAINT: For chest pain and shortness of breath when being assessed at the [facility] today. HISTORY OF PRESENT ILLNESS: This is a 81 y.o. male with a history of being referred to the emergency room from [place] for assessment of chest pain. The patient currently denies chest pain but by report had com plained of some chest discomfort and shortness of breath at the [place] on his assessment. The p atient reported he had been under a lot of stress and anxiety recently because he is unhappy with his living situation in assisted living in [place]. On evaluation here he was found to have new renal failure and a troponin of 0.09 and thus I was asked to admit him. He castro s report 2-3 times a night nocturia and reports that he gets very little urine out at night when he PEs. He does report he is noticing increasing positive shortness of breath with fur osemide breath both with awakening and exertion. He has a history of heart failure and has a known aortic valve replacement. Medication list from the [place] include furosemide 40 mg twic e daily and metolazone 2.5 mg daily. Our last echocardiogram was in 03/2015 which showed ret ained left ventricular function. His prosthetic aortic valve appeared to be functioning nor servando. PAST MEDICAL and SURGICAL HISTORY: Past Medical History Diagnosis Date H/O aortic valve replacement 2004 [facility] INR goal is 2-3, surgery done at [facility] Hypertension Liver cirrhosis (HCC) CVA (cerebral infarction) -2014 lacunar (not stated as new nor old) Dementia Alcoholic cirrhosis (HCC) 2003 CT scan 2003 at [facility] Endocarditis 2009 Enterococcus 6 weeks Amp + Gent PSA elevation 2009 Pt declined Bx then Peripheral vertigo 2012 BPPV left Venous ulcer 2013 Leg Retinal detachment 2010 CAD (coronary artery disease) 2005 Had CABG to LAD (for 80-90% LAD) surgery done at [facility] Pulmonary HTN (HCC) Severe on Echo 2013 Diastolic CHF (HCC) Echo 2014 EF 68, ascites, pulm HTN Over-anticoagulated 04/01/2015 Past Surgical History Procedure Laterality Date Cardiac surgery [address] [place] [address] [facility] FAMILY HISTORY: family history includes Heart disease in his father. SOCIAL HISTORY: reports that he has never smoked. He does not have any smokeless tobacco history on file. He reports that he does not drink alcohol. REVIEW OF SYSTEMS: I did my usual 10 system ROS using: Constitutional, Eye, ENT, Cardiac, Respiratory, GI, , Musculoskeletal, Skin & Breast, Neurological. See notations in HPI. Remainder of 10 system ROS negative HOME MEDICATIONS: Previous Medications ALBUTEROL 90 MCG/PUFF INHALER Inhale 2 puffs into the lungs every 4 hours as needed for Wheezing. AMIODARONE (PACERONE) 400 MG TABLET Take 1 tablet by mouth 2 times daily. ARTIFICIAL TEARS (REFRESH PLUS) 0.5% SOLN Place 1 drop into both eyes 4 times daily. ATORVASTATIN (LIPITOR) 10 MG TABLET Take 10 mg by mouth nightly. COLCHICINE 0.6 MG TABLET Take 0.6 mg by mouth as needed. He uses a tapering regimen ove r 8 days prn gout but is out CYANOCOBALAMIN 1000 MCG CAPS Take 1 tablet by mouth Daily. DESONIDE (DESOWEN) 0.05% CREAM Apply topically 2 times daily. DONEPEZIL (ARICEPT) 10 MG TABLET Take 5 mg by mouth Daily. FENOFIBRATE (TRICOR) 145 MG TABLET Take 145 mg by mouth Daily. FERROUS SULFATE 325 MG TABLET Take 325 mg by mouth daily (with breakfast). Patient take s three times weekly FUROSEMIDE (LASIX) 40 MG TABLET Take 80 mg in the morning, 40 mg in the evening for 1 w [place]. After 1 week resume your normal dose of 40 mg twice a day. GUAIFENESIN-DEXTROMETHORPHAN (ROBITUSSIN DM) 100-10 MG/5 ML SYRUP Take 5 mLs by mouth 4 times daily as needed for Cough. HYDROCODONE-ACETAMINOPHEN (NORCO) 5-325 MG PER TABLET Take 1 tablet by mouth every 6 ho urs as needed for Pain. LEVOTHYROXINE (SYNTHROID, LEVOTHROID) 25 MCG TABLET Take 25 mcg by mouth every morning (before breakfast). MAGNESIUM OXIDE (MAG-OX) 400 MG TABLET Take 420 mg by mouth Daily. METOPROLOL SUCCINATE (TOPROL-XL) 50 MG 24 HR TABLET Take 50 mg by mouth Daily. Takes 1 and 1/2 tablet twice daily POLYETHYLENE GLYCOL (MIRALAX) PACKET Take 1 diluted packet by mouth Daily as needed. POTASSIUM CHLORIDE (K-DUR,KLOR-CON) 10 MEQ ER TABLET Take 10 mEq by mouth 2 times daily . TAMSULOSIN (FLOMAX) 0.4 MG CAPS Take 0.4 mg by mouth daily (after breakfast). TERBINAFINE (LAMISIL) 1% CREAM Apply topically 2 times daily. TORSEMIDE (DEMADEX) 20 MG TABLET Take 20 mg by mouth Daily. TRAZODONE (DESYREL) 50 MG TABLET Take 50 mg by mouth nightly. UREA (CARMOL) 20% CREAM Apply topically 2 times daily. WARFARIN (COUMADIN) 1 MG TABLET 6 mg daily This list [facility] with a list from the facility which twice patient medication currently pending. ALLERGIES: Allergies Allergen Reactions Latex Rash VITAL SIGNS: Temp: 35.9 C (96.6 F), Pulse: 52, Resp: 17, BP: 116/47 mmHg, SpO2 99 % on room air at f low rate L/min Temp Min: 35.9 C (96.6 F) Max: 35.9 C (96.6 F) Weight: 89.812 kg (198 lb) PHYSICAL EXAMINATION: Constitutional Comfortable appearing age-appropriate male Eye No conjunctivitis nor scleral icterus ENT Unremarkable oral ear and nose Neck No adenopathy, thyromegaly nor masses Lymph node exam Negative in the following areas: neck and epitrochlear Cardiac IRRR, No MRG LE edema 1+, greater on the right than left with chronic stasis changes Lung Clear to auscultation, respiratory effort not labored Abdomen + BS, Soft, NT, no HSM nor masses DIAGNOSTIC STUDIES: Recent Labs Lab 02/27/17 1418 WBC 7.0 HGB 11.3* HCT 35.7* PLT 116* NEUPCT 35.2* MONPCT 8.5 Recent Labs Lab 02/27/17 1418 PROTIME 45.3* INR 4.64* Recent Labs Lab 02/27/17 1418 GLU 99 NA 144 K 5.3* CL 108 CO2 26 ANIONGAP 10 BUN 118* CREA 2.77* GFRNONAA 22* CALCIUM 9.1 ALBUMIN 3.7 TOTALPROTEIN 6.8 BILITOT 0.9 ALKPHOS 34* ALT 19 AST 36 Recent Labs Lab 02/27/17 1419 BNP 368* EKG Results (I reviewed EKG)EKG shows sinus bradycardia at 48 bpm with incomplete left bund le-branch block. T-wave inversions are noted in the lateral leads. This is unchanged in co mparison to 03/19/2016 Xray Results: Xr Chest Pa And Lateral 02/27/2017 XR CHEST PA AND LATERAL 02/27/2017 1:30 PM HISTORY: Chest Pain. COMPARISON: Multi ple priors. Findings: Sternotomy wires and a prosthetic cardiac valve are seen. The heart is borderline enlarged. There is atherosclerosis of the aorta. Mediastinum is unremarkable. Ce ntral pulmonary vasculature is normal. Stable consolidation is in the left lung base with bl unting of the left costophrenic angle. There is mild scarring in the right lung base. Mild r ight curvature of the thoracic spine is present along with mild spondylosis. There is diffus e osteopenia. IMPRESSION - Stable consolidation in left lung base with blunting of the left costophrenic angle that could represent atelectasis, pneumonia, and/or pleural effusion. Bor derline cardiomegaly. Dictated and Signed by: Deep Garcia MD Electronically signed: 017 2:10 PM ASSESSMENT: 1. Acute renal failure, likely postobstructive Patient radiographically has mild changes of fluid overload with a BNP of 368. This value is a lowest value we have over the past year with values ranging from 500-1100. I do not be lieve he is significantly azotemic. A postvoid residual was obtained in the ER after urinat ing and was estimated at 450 cc and subsequently a catheter was placed with 400 cc of urine immediately out. I'm going to give low-dose IV fluids at 60 cc per hour of D5 half-normal s sterling and reduce furosemide to 40 mg once daily stopping metolazone. We'll follow his urine output with a call for less than 30 cc per hour. Urine sodium, creatinine, and UA will be obtained. Patient reportedly is on tamsulosin daily and thus may need to be evaluated by ur ology for possible TURP. Note the patient's urine sodium and creatinine returned with a calculated FENa of 5.17 stro ngly suggestive of postobstructive etiology in lieu of prerenal azotemia. 2. History of CHF Obtain echocardiography and follow patient's urinary values closely. With worsening renal function will reduce furosemide to 40 mg daily. 3. Hyperkalemia Patient's potassium is only 5.3 and he received 15 g of Kayexalate emergency room. Blake c atheter was placed with expectation of improved urine output and we'll repeat labs in the a. m. 4. Elevated troponin This is associated with patient's renal failure. We'll perform follow-up values at 9 PM to night and tomorrow a.m. He currently denies chest pain. 5. Elevated PT/INR Early not actively bleeding. Will hold Coumadin and allow INR to fall to 2-3 and then rein itiate PLAN: I reviewed and summarized old records I reviewed imaging DVT Prophylaxis Therapeutic Code Status Full code CMS Documentation I expect this patient will be hospitalized for greater than 2-midnights and expect the post -hospital plan to be discharge to home or to an adult foster home. Sy Hopkins MD Electronically signed by: Sy Hopkins MD 02/27/2017 16:43 [facility] Portions of this chart may have been created with [employer] voice recognition software. Occasi onal wrong-word or sound-alike substitutions may have occurred due to the inherent carter itations of voice recognition software. Please read the chart carefully and recognize, using context, where these substitutions have occurred documented in this enc [facility] ED Notes Efe Rosado RN - 02/27/2017 5:23 PM PDTPt to be taken upstairs on monitor with R N, all personal belongings. 5 :24 PM PDTTristan Garcia MD - 02/27/2017 1:17 PM PDTFormatting of this note might b e different from the original. [facility] Jacklyn Siddiqi Emergency Department Encounter Note [address] [place] [id number] PCP:No Physician on file [phone] CHIEF COMPLAINT: Chief Complaint Patient presents with Chest Pain ED Room: ED01/ED01 HPI Jacklyn Siddiqi is a 81 y.o. male who presents to the Emergency Department by ambulance from [place] for evaluation. This patient was being seen in the [place] for routine appointment today an d complained of some chest pain and dyspnea and so was sent to the ER for further evaluation . He is currently living in an assisted living facility and is very unhappy there. As such , he states he has been under a lot of stress and he feels like that is why he is having the discomfort. He points to his epigastrium as the location of discomfort. He has a hard farhan e otherwise describing it. He does not feel short of breath currently, he has no abdominal pain, nausea, or vomiting. PAST MEDICAL & SURGICAL HISTORY Past Medical History Diagnosis Date H/O aortic valve replacement 2004 [facility] INR goal is 2-3, surgery done at [facility] Hypertension Liver cirrhosis (HCC) CVA (cerebral infarction) -2014 lacunar (not stated as new nor old) Dementia Alcoholic cirrhosis (HCC) 2003 CT scan 2003 at [facility] Endocarditis 2009 Enterococcus 6 weeks Amp + Gent PSA elevation 2008 Pt declined Bx then Peripheral vertigo 2012 BPPV left Venous ulcer 2013 Leg Retinal detachment 2010 CAD (coronary artery disease) 2005 Had CABG to LAD (for 80-90% LAD) surgery done at [facility] Pulmonary HTN (HCC) Severe on Echo 2013 Diastolic CHF (HCC) Echo 2013 EF 68, ascites, pulm HTN Over-anticoagulated 04/01/2015 Past Surgical History Procedure Laterality Date Cardiac surgery 2005 [facility] CURRENT MEDICATIONS Previous Medications ALBUTEROL 90 MCG/PUFF INHALER Inhale 2 puffs into the lungs every 4 hours as needed for Wheezing. AMIODARONE (PACERONE) 400 MG TABLET Take 1 tablet by mouth 2 times daily. ARTIFICIAL TEARS (REFRESH PLUS) 0.5% SOLN Place 1 drop into both eyes 4 times daily. ATORVASTATIN (LIPITOR) 10 MG TABLET Take 10 mg by mouth nightly. COLCHICINE 0.6 MG TABLET Take 0.6 mg by mouth as needed. He uses a tapering regimen ove r 8 days prn gout but is out CYANOCOBALAMIN 1000 MCG CAPS Take 1 tablet by mouth Daily. DESONIDE (DESOWEN) 0.05% CREAM Apply topically 2 times daily. DONEPEZIL (ARICEPT) 10 MG TABLET Take 5 mg by mouth Daily. FENOFIBRATE (TRICOR) 145 MG TABLET Take 145 mg by mouth Daily. FERROUS SULFATE 325 MG TABLET Take 325 mg by mouth daily (with breakfast). Patient take s three times weekly FUROSEMIDE (LASIX) 40 MG TABLET Take 80 mg in the morning, 40 mg in the evening for 1 w [place]. After 1 week resume your normal dose of 40 mg twice a day. GUAIFENESIN-DEXTROMETHORPHAN (ROBITUSSIN DM) 100-10 MG/5 ML SYRUP Take 5 mLs by mouth 4 times daily as needed for Cough. HYDROCODONE-ACETAMINOPHEN (NORCO) 5-325 MG PER TABLET Take 1 tablet by mouth every 6 ho urs as needed for Pain. LEVOTHYROXINE (SYNTHROID, LEVOTHROID) 25 MCG TABLET Take 25 mcg by mouth every morning (before breakfast). MAGNESIUM OXIDE (MAG-OX) 400 MG TABLET Take 420 mg by mouth Daily. METOPROLOL SUCCINATE (TOPROL-XL) 50 MG 24 HR TABLET Take 50 mg by mouth Daily. Takes 1 and 1/2 tablet twice daily POLYETHYLENE GLYCOL (MIRALAX) PACKET Take 1 diluted packet by mouth Daily as needed. POTASSIUM CHLORIDE (K-DUR,KLOR-CON) 10 MEQ ER TABLET Take 10 mEq by mouth 2 times daily . TAMSULOSIN (FLOMAX) 0.4 MG CAPS Take 0.4 mg by mouth daily (after breakfast). TERBINAFINE (LAMISIL) 1% CREAM Apply topically 2 times daily. TORSEMIDE (DEMADEX) 20 MG TABLET Take 20 mg by mouth Daily. TRAZODONE (DESYREL) 50 MG TABLET Take 50 mg by mouth nightly. UREA (CARMOL) 20% CREAM Apply topically 2 times daily. WARFARIN (COUMADIN) 1 MG TABLET 6 mg daily ALLERGIES Allergies Allergen Reactions Latex Rash FAMILY AND SOCIAL HISTORY Family History Problem Relation Age of Onset Heart disease Father Social History Social History Marital Status: Spouse Name: N/A Number of Children: N/A Years of Education: N/A Social History Main Topics Smoking status: Never Smoker Smokeless tobacco: None Alcohol Use: No Drug Use: None Sexual Activity: Not Asked Other Topics Concern None Social History Narrative REVIEW OF SYSTEMS As in history of present illness. A 10 system review was otherwise negative. PHYSICAL EXAM VITAL SIGNS: (first vital signs):Temp: 35.9 C (96.6 F) Pulse: 50 Resp: 18 SpO2: 99 % BP : (!) 154/108 mmHg Body mass index is 31.97 kg/(m^2). Constitutional: Well-appearing male patient. HEENT: Atraumatic, PERRL, Oropharynx benign. Neck: Supple with full range of motion. No JVD and no lymphadenopathy Respiratory: Good air movement bilaterally. No wheezes, No, rales. Cardiovascular: Normal S1 S2 Abdomen: Soft, nontender., No rebound, guarding, or masses., Bowel tones normal. and No pu lsatile masses. Back: Within normal limits Extremities: Nontender. No lower extremity edema, no calf asymmetry. Present distal pulse s. Skin: Warm, Dry, No rashes Neurologic: Alert & oriented. Cranial nerves II-XII intact , Gait and speech are normal Psychiatric: Normal mood, affect and judgement. EKG 12-lead EKG shows sinus bradycardia with a left bundle branch block. Ventricular rate of 4 8. LABS Results for orders placed or performed during the hospital encounter of 02/27/17 CBC with Differential Result Value Ref Range WBC 7.0 4.0-11.0 K/uL RBC 3.89 (L) 4.30-5.70 M/uL Hgb 11.3 (L) 13.5-18.0 g/dL Hct 35.7 (L) 40.0-51.0 % MCV 91.6 83.0-101.0 fL MCH 29.1 28.0-35.0 pg MCHC 31.7 (L) 32.0-36.0 g/dL RDW-CV 16.7 (H) <15.0 % Platelet Count 116 (L) 140-440 K/uL MPV 9.7 fL % Neutrophils 35.2 (L) 45.0-82.0 % % Lymphocytes 54.2 (H) 20.0-45.0 % % Monocytes 8.5 4.0-12.0 % % Eosinophils 1.8 0.0-5.0 % % Basophils 0.3 0.0-1.0 % Absolute Neutrophils 2.40 1.80-8.50 K/uL Absolute Lymphocytes 3.80 (H) 0.60-3.20 K/uL Absolute Monocytes 0.60 0.00-1.00 K/uL Absolute Eosinophils 0.10 0.00-0.40 K/uL Absolute Basophils 0.00 0.00-0.10 K/uL Comprehensive Metabolic Panel Result Value Ref Range NA 144 136-149 mmol/L K 5.3 (H) 3.5-5.1 mmol/L CL 108 98-109 mmol/L CO2 26 24-31 mmol/L ANION GAP 10 3-16 mmol/L GLUCOSE 99 70-109 mg/dL BUN 118 (HH) 7-18 mg/dL Creatinine, Serum/Plasma 2.77 (H) 0.60-1.30 mg/dL eGFR if not 22 (L) >=60 mL/min/1.73m2 CALCIUM 9.1 8.3-10.5 mg/dL ALBUMIN 3.7 3.2-5.0 g/dL BILIRUBIN TOTAL 0.9 0.1-1.5 mg/dL Total protein 6.8 6.0-7.8 g/dL AST 36 10-42 U/L ALT 19 6-45 U/L ALK PHOS 34 (L) 40-110 U/L GLOBULIN 3.1 2.1-3.8 g/dL Albumin/Globulin ratio 1.2 0.8-2.0 BUN/CREA 42.6 Troponin I Result Value Ref Range Troponin I 0.09 (H) <0.06 ng/mL Protime INR Result Value Ref Range PROTIME 45.3 (H) 11.3-13.9 seconds INR 4.64 (H) 0.90-1.10 Extra Lavender Top Tube Result Value Ref Range Extra Lavender Top Tube Done ECG 12 lead Result Value Ref Range INTERPRETATION TEXT Not Confirmed IMAGING STUIDES (X-Rays interpreted by ED Physician) Chest x-ray shows persistent left pleural effusion, no new infiltrates or significant ca rdiomegaly ED COURSE & MEDICAL DECISION MAKING Pertinent Labs & Imaging studies were reviewed along with EMS notes and skilled nursing record s if applicable. (See chart for details) Medications and Allergy list reviewed. Nurses note and old records were reviewed The patient was seen and examined, given his symptoms I did obtain a chest x-ray, EKG, and laboratory studies. His EKG showed bradycardia but otherwise no acute findings. This patie nt had numerous laboratory abnormalities including hyperkalemia, elevated INR, a slight trop onin elevation, and significant renal failure. Given all this in the setting of his bradyca rdia I think this patient requires admission to the hospital for further management of this. Case was discussed with Dr. Hopkins. He was given some Kayexalate and some IV fluids as we ll. Last Set of Vital Signs: Temp: 35.9 C (96.6 F) Pulse: (!) 49 Resp: 20 SpO2: 98 % BP: 11 0/56 mmHg FINAL IMPRESSION ICD-10-CM ICD-9-CM 1. Acute renal failure, unspecified acute renal failure type (HCC) N17.9 584.9 2. Bradycardia R00.1 427.89 3. Hyperkalemia E87.5 276.7 4. Elevated INR R79.1 790.92 5. Elevated troponin R74.8 790.6 6. Pleural effusion, left J90 511.9 Portions of this chart were created with Lore voice recognition software. Inadvertent so und alike substitutions may be present and are unintentional Tristan Garcia MD 02/27/17 1514 do cumented in this encounter Miscellaneous Notes Plan of Reena - Anamaria Madison - 03/04/2017 2:46 PM PDTDischarge Planning: Message left for son Jacklyn letting him know his father is ready for discharge. Called [facility] and spoke to Jazlyn. She reports they are able to accept Jacklyn today. She is requesting an order stating that [facility] should administer Jacklyn's medications. Spoke with Dr Hopkins. He reports he will write the order. Order faxed to [facility]. Transmitted [place]. [facility] Hopkins requests a [facility] follow up appointment in 10 days for catheter removal. His PCP at the [place] is Aleah Smith with [facility] This designer writer called the [facility] spoke with Pdamini. She will put f/u appointment request in wit h [facility]". Electronically signed by: Anamaria Madison 03/04/2017 14:54 Jaren Villas[facility] is here and will transport. Electronically signed by: Anamaria Madison 03/04/2017 16:27 lan of Care - Adelina oJseph RN - 03/04/2017 1:01 AM PDTProblem: Patient Care Overview (Adult) Goal: Care Team Goals & Evaluation PROBLEM-RELATED GOALS: 1. Pt s potassium and INR levels will return to normal levels by 03/04/17. 2. Pt s weight will return to baseline by 03/04/17. 3. Pt will be without falls or injuries while in hospital through 03/04/17. STRATEGY TO ACHIEVE GOALS: - monitor labs, adm medications as ordered, maintain tele, assess pt. - monitor weight as ordered, administer medications as ordered. - round on patient frequently, keep call sheridan within reach at all times, place on bed alarm as needed. RESTRAINT-RELATED GOALS: STRATEGIES TO ACHIEVE RESTRAINT GOALS: Goal Evaluation: Pt is alert and oriented pleasant man, not as talkative today but i s content, pt is up in chair at change of shift and RN places pt in bed when assessment is d one. Pt's INR and creatinine are still elevated a little but improving. Pt is concerned abo ut celexa drug and is assured that it is not being given at this time.0500 - Pt slept very w benedict burrows. lan of Care - Amada Turcios RN - 03/03/2017 5:46 PM PDTProblem: Patient Care Overview (Adult) Goal: Care Team Goals & Evaluation PROBLEM-RELATED GOALS: 1. Pt s potassium and INR levels will return to normal levels by 03/04/17. 2. Pt s weight will return to baseline by 03/04/17. 3. Pt will be without falls or injuries while in hospital through 03/04/17. STRATEGY TO ACHIEVE GOALS: - monitor labs, adm medications as ordered, maintain tele, assess pt. - monitor weight as ordered, administer medications as ordered. - round on patient frequently, keep call sheridan within reach at all times, place on bed alarm as needed. RESTRAINT-RELATED GOALS: STRATEGIES TO ACHIEVE RESTRAINT GOALS: Goal Evaluation: Refused Celexa this morning stating it can make people forget thing s. Patient has difficulty recalling words, delayed responses. Blake draining sufficient amou nt. CXR completed. Large BM this AM. Fluids running. Tele on. lan of Care - Stacy Elizabeth RN - 03/03/2017 12:01 AM PDTProblem: Patient Care Overview (Adult) Goal: Care Team Goals & Evaluation PROBLEM-RELATED GOALS: 1. Pt s potassium and INR levels will return to normal levels by 03/04/17. 2. Pt s weight will return to baseline by 03/04/17. 3. Pt will be without falls or injuries while in hospital through 03/04/17. STRATEGY TO ACHIEVE GOALS: - monitor labs, adm medications as ordered, maintain tele, assess pt. - monitor weight as ordered, administer medications as ordered. - round on patient frequently, keep call sheridan within reach at all times, place on bed alarm as needed. RESTRAINT-RELATED GOALS: STRATEGIES TO ACHIEVE RESTRAINT GOALS: Goal Evaluation: Pt is alert and oriented pleasant man that is talkative and has anne e concerns about his children that he is expressing. Pt states he is not happy with kids and where he is living at this time in an assisted living facility. Pt potassium level is WNL, LE edema is down and pt has good clear yellow output from blake catheter. Pt is sleeping we ll this pm lan of Care - Javier Hitchcock RN - 03/02/2017 6:58 PM PDTProblem: Patient Care Overview (Adult) Goal: Care Team Goals & Evaluation PROBLEM-RELATED GOALS: 1. Pt s potassium and INR levels will return to normal levels by 03/04/17. 2. Pt s weight will return to baseline by 03/04/17. 3. Pt will be without falls or injuries while in hospital through 03/04/17. STRATEGY TO ACHIEVE GOALS: - monitor labs, adm medications as ordered, maintain tele, assess pt. - monitor weight as ordered, administer medications as ordered. - round on patient frequently, keep call sheridan within reach at all times, place on bed alarm as needed. RESTRAINT-RELATED GOALS: STRATEGIES TO ACHIEVE RESTRAINT GOALS: Outcome: Improving Goal Evaluation: Pt up in room with cane. No falls. INR 1.95 today gave 3mg coumadin per MD order. Tolerati ng meals w/o nausea. lan of Care - Stacy Yu RN - 03/02/2017 12:51 AM PDTProblem: Patient Care Overview (Adult) Goal: Care Team Goals & Evaluation PROBLEM-RELATED GOALS: 1. Pt s potassium and INR levels will return to normal levels by 03/04/17. 2. Pt s weight will return to baseline by 03/04/17. 3. Pt will be without falls or injuries while in hospital through 03/04/17. STRATEGY TO ACHIEVE GOALS: - monitor labs, adm medications as ordered, maintain tele, assess pt. - monitor weight as ordered, administer medications as ordered. - round on patient frequently, keep call sheridan within reach at all times, place on bed alarm as needed. RESTRAINT-RELATED GOALS: STRATEGIES TO ACHIEVE RESTRAINT GOALS: Goal Evaluation: Pt is alert and oriented with some concerns about family issues. Pt requests that no information be given to daughter Denisse and that is she calls she is to be directed to the pt. Son Jacklyn can receive information . Pt potassium level is high normal today, INR is still elevated. Pt is doing well, HR is NSR and regular, Edema to LE. 0620 - Pt is c/o back hurting from bed, pt up to chair with SBA lan of [facility] Damaris lindo RN - 03/01/2017 6:53 PM PDTProblem: Patient Care Overview (Adult) Goal: Care Team Goals & Evaluation PROBLEM-RELATED GOALS: 1. Pt s potassium and INR levels will return to normal levels by 03/04/17. 2. Pt s weight will return to baseline by 03/04/17. 3. Pt will be without falls or injuries while in hospital through 03/04/17. STRATEGY TO ACHIEVE GOALS: - monitor labs, adm medications as ordered, maintain tele, assess pt. - monitor weight as ordered, administer medications as ordered. - round on patient frequently, keep call sheridan within reach at all times, place on bed alarm as needed. RESTRAINT-RELATED GOALS: STRATEGIES TO ACHIEVE RESTRAINT GOALS: Outcome: Improving Goal Evaluation: Pt alert and oriented x 4. Some forgetfulness noted. Denies pain or other discomfort. No bradycardia noted during shift, and remains on telemetry. D5 .45NS infusing. Restarted on co umadin d/t improving INR. Blake patent with adequate output. Bed alarm remains in place for safety. One person assist to chairs for meals. Remains free from falls. lan of [facility] Anamaria arndt - 03/01/2017 10:29 AM PDTDischarge Planning: This COSTUME SHOP MANAGER spoke with Jacklyn's son Jacklyn outside the room today. Son reports his dad does very well @ [facility]. That being sad he complains of not liking it there. Son reports it was his father's idea to move in there. His main complaint is that he does not like the cost. The patient is left with a little ove r $100 each month after the carreon of the assisted living facility. Son states that he wants his dad to go where he is happy, but knows that the assisted livin g facility is the best place for him since he has failed living with his children. Son jacklyn reports he will transport his father back to [facility] when stable for d ischarge. Electronically signed by: Anamaria Mdaison 03/01/2017 10:33 Received call from Leanne Soda Jerker @ [facility] [phone]. She had questions about admitting diagnosis and dc plan. Update given. Electronically signed by: Anamaria Madison 03/01/2017 15:06 lan of Re[facility] - Roxanne Johnston RN - 03/01/2017 6:13 AM PDTProblem: Patient Care Overview (Adult) Goal: Care Team Goals & Evaluation PROBLEM-RELATED GOALS: 1. Pt s potassium and INR levels will return to normal levels by 03/04/17. 2. Pt s weight will return to baseline by 03/04/17. 3. Pt will be without falls or injuries while in hospital through 03/04/17. STRATEGY TO ACHIEVE GOALS: - monitor labs, adm medications as ordered, maintain tele, assess pt. - monitor weight as ordered, administer medications as ordered. - round on patient frequently, keep call sheridan within reach at all times, place on bed alarm as needed. RESTRAINT-RELATED GOALS: STRATEGIES TO ACHIEVE RESTRAINT GOALS: Outcome: Unchanged Goal Evaluation: Pt resting comfortably between cares. Denies pain or discomfort. HR bradycardic with murmu r and valve click, remains on telemetry. IVFs infusing. Blake patent with adequate output. A M labs pending at this time. Bed alarm in place for safety. Remains free from falls. lan of Andres Beard S, RN - 02/28/2017 9:28 PM PDTProblem: Patient Care Overview (Adult) Goal: Care Team Goals & Evaluation PROBLEM-RELATED GOALS: 1. Pt s potassium and INR levels will return to normal levels by 03/04/17. 2. Pt s weight will return to baseline by 03/04/17. 3. Pt will be without falls or injuries while in hospital through 03/04/17. STRATEGY TO ACHIEVE GOALS: - monitor labs, adm medications as ordered, maintain tele, assess pt. - monitor weight as ordered, administer medications as ordered. - round on patient frequently, keep call sheridan within reach at all times, place on bed alarm as needed. RESTRAINT-RELATED GOALS: STRATEGIES TO ACHIEVE RESTRAINT GOALS: Goal Evaluation: Patient able to independently transfer to chair and to bathroom. AM BP was 100/50, HR 65. Had a 3 second period of V-Tach at 150. Provider notified and per telephone Dr. Sandeep valenzuela to hold metoprolol and administered lasix. Patient very concerned about returning to [facility], it makes him "sick" to think about. Soda Jerker working with patient. Per melissa starkey's permission spoke to one of his daughters and an employee/friend from current SNF info rming of patient's condition. Patient's INR was 5.0 and given vitamin K. lan of Care - Anamaria Nunes Rob - 02/28/2017 3:28 PM PDTDischarge Planning: This COSTUME SHOP MANAGER spoke with Jacklyn at his bedside regarding discharge. Jacklyn is a resident @ [facility] in [place]. Jacklyn uses a cane or power scooter to assist with ambulation. Jacklyn is a non service connected . His PCP is @ [facility]. Message left at the [facility] office regarding admission. This designer writer called and spoke with Exec. Director [facility] and [employer] [employer] [facility]. They report they will accept Jacklyn back to the facility. They both report that d/t his dementia Jacklyn can often come across as very needy at times. And that Jacklyn often talks very poorly about his sons and constantly states that he can no t live @ [facility] because it makes him ill. Jacklyn states his son Jacklyn is his most helpful child, he takes him to appointments and [employer] etc. Message left for son Jacklyn to return this writers call. CM to follow up. Electronically signed by: Anamaria Madison 02/28/2017 15:52 lan of Care - Jennifer Rosado RN - 02/28/2017 4:25 AM PDTProblem: Patient Care Overview (Adult) Goal: Care Team Goals & Evaluation PROBLEM-RELATED GOALS: 1. Pt s potassium and INR levels will return to normal levels by 03/04/17. 2. Pt s weight will return to baseline by 03/04/17. 3. Pt will be without falls or injuries while in hospital through 03/04/17. STRATEGY TO ACHIEVE GOALS: - monitor labs, adm medications as ordered, maintain tele, assess pt. - monitor weight as ordered, administer medications as ordered. - round on patient frequently, keep call sheridan within reach at all times, place on bed alarm as needed. RESTRAINT-RELATED GOALS: STRATEGIES TO ACHIEVE RESTRAINT GOALS: Outcome: Improving Goal Evaluation: AAOx4 occasional forgetfulness pt on bed alarm no falls or injuries this shift. Last K 5.3 kayexalate given in rr has had several bms, INR 4.7 coumadin held, last troponin 0.06 trend ing down. Iv infusing into L ac without problems, blake To gravity draining amts of urine. D Triage Notes - Taniya sanchez, Efe Nye, RN - 02/27/2017 1:17 PM PDTPt went to [place] for check up today, started c/ o substernal CP. EMS called, pt denied CP when they arrived. Now c/o foot pain only, no SOB. HX dementia. Sinus richard on EKG in ambulance. documented in this encounter Plan of Treatment +--------+ + + + + | Date | Type | Specialty | Care Team | Description | +--------+ + + + + | 07/20/ | Implant | Cardiology | Cruzito Bird, | Remote Device | | 2019 | Monitor | | [address] | Interrogation | | | | | 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) | +--------+ + + + + | 01/05/ | Office | Cardiology | Emely Gabriel, | | | 2020 | Visit | | DIRECTOR BEHAVIORAL HEALTH [address] | | | | | | [place] | | | | | | [id number] | | | | | | | | +--------+ + + + + + +------+--------+ + + | Name | Type | Priori | Associated Diagnoses | Date/Time | | | | ty | | | + +------+--------+ + + | ED INFORMATION | SHAZIA | Routin | | 02/27/2017 2:01 PM | | EXCHANGE | | e | | PDT | + +------+--------+ + + documented as of this encounter Procedures + +--------+ + + + | Procedure Name | Priori | Date/Time | Associated Diagnosis | Comments | | | ty | | | | + +--------+ + + + | EXTRA LAVENDER TOP | Routin | 03/04/2017 | | Results for this | | TUBE | e | 5:58 AM | | procedure are in the | | | | PDT | | results section. | + +--------+ + + + | EXTRA GREEN TOP TUBE | Routin | 03/04/2017 | | Results for this | | | e | 5:58 AM | | procedure are in the | | | | PDT | | results section. | + +--------+ + + + | PROTIME INR | Routin | 03/04/2017 | | Results for this | | | e | 5:58 AM | | procedure are in the | | | | PDT | | results section. | + +--------+ + + + | B TYPE NATRIURETIC | Routin | 03/04/2017 | | Results for this | | PEPTIDE | e | 5:58 AM | | procedure are in the | | | | PDT | | results section. | + +--------+ + + + | BASIC METABOLIC | Routin | 03/04/2017 | | Results for this | | PANEL | e | 5:58 AM | | procedure are in the | | | | PDT | | results section. | + +--------+ + + + | URINALYSIS WITH | Routin | 03/03/2017 | | Results for this | | MICROSCOPIC WITH | e | 8:11 PM | | procedure are in the | | CULTURE IF INDICATED | | PDT | | results section. | + +--------+ + + + | CULTURE, URINE | Routin | 03/03/2017 | | Results for this | | | e | 8:11 PM | | procedure are in the | | | | PDT | | results section. | + +--------+ + + + | XR CHEST PA AND | Routin | 03/03/2017 | | Results for this | | LATERAL | e | 10:35 AM | | procedure are in the | | | | PDT | | results section. | + +--------+ + + + | SLIDE REVIEW, | Routin | 03/03/2017 | | Results for this | | PERIPHERAL SMEAR | e | 5:47 AM | | procedure are in the | | | | PDT | | results section. | + +--------+ + + + | PROTIME INR | Routin | 03/03/2017 | | Results for this | | | e | 5:47 AM | | procedure are in the | | | | PDT | | results section. | + +--------+ + + + | CBC WITH | Routin | 03/03/2017 | | Results for this | | DIFFERENTIAL | e | 5:47 AM | | procedure are in the | | | | PDT | | results section. | + +--------+ + + + | B TYPE NATRIURETIC | Routin | 03/03/2017 | | Results for this | | PEPTIDE | e | 5:47 AM | | procedure are in the | | | | PDT | | results section. | + +--------+ + + + | BASIC METABOLIC | Routin | 03/03/2017 | | Results for this | | PANEL | e | 5:47 AM | | procedure are in the | | | | PDT | | results section. | + +--------+ + + + | XR CHEST PA AND | Routin | 03/02/2017 | | Results for this | | LATERAL | e | 2:35 PM | | procedure are in the | | | | PDT | | results section. | + +--------+ + + + | EXTRA LAVENDER TOP | Routin | 03/02/2017 | | Results for this | | TUBE | e | 4:58 AM | | procedure are in the | | | | PDT | | results section. | + +--------+ + + + | PROTIME INR | Routin | 03/02/2017 | | Results for this | | | e | 4:58 AM | | procedure are in the | | | | PDT | | results section. | + +--------+ + + + | B TYPE NATRIURETIC | Routin | 03/02/2017 | | Results for this | | PEPTIDE | e | 4:58 AM | | procedure are in the | | | | PDT | | results section. | + +--------+ + + + | BASIC METABOLIC | Routin | 03/02/2017 | | Results for this | | PANEL | e | 4:58 AM | | procedure are in the | | | | PDT | | results section. | + +--------+ + + + | PROTIME INR | Routin | 03/01/2017 | | Results for this | | | e | 5:20 AM | | procedure are in the | | | | PDT | | results section. | + +--------+ + + + | B TYPE NATRIURETIC | Routin | 03/01/2017 | | Results for this | | PEPTIDE | e | 5:20 AM | | procedure are in the | | | | PDT | | results section. | + +--------+ + + + | RENAL FUNCTION PANEL | Routin | 03/01/2017 | | Results for this | | | e | 5:20 AM | | procedure are in the | | | | PDT | | results section. | + +--------+ + + + | ECHO COMPLETE | Routin | 02/28/2017 | | Results for this | | | e | 3:41 PM | | procedure are in the | | | | PDT | | results section. | + +--------+ + + + | US RENAL LIMITED | Routin | 02/28/2017 | | Results for this | | | e | 10:00 AM | | procedure are in the | | | | PDT | | results section. | + +--------+ + + + | SLIDE REVIEW, | Routin | 02/28/2017 | | Results for this | | PERIPHERAL SMEAR | e | 5:25 AM | | procedure are in the | | | | PDT | | results section. | + +--------+ + + + | TROPONIN I | Routin | 02/28/2017 | | Results for this | | | e | 5:25 AM | | procedure are in the | | | | PDT | | results section. | + +--------+ + + + | BERENICEIME INR | Routin | 02/28/2017 | | Results for this | | | e | 5:25 AM | | procedure are in the | | | | PDT | | results section. | + +--------+ + + + | CBC WITH | Routin | 02/28/2017 | | Results for this | | DIFFERENTIAL | e | 5:25 AM | | procedure are in the | | | | PDT | | results section. | + +--------+ + + + | COMPREHENSIVE | Routin | 02/28/2017 | | Results for this | | METABOLIC PANEL | e | 5:25 AM | | procedure are in the | | | | PDT | | results section. | + +--------+ + + + | TROPONIN I | Routin | 02/27/2017 | | Results for this | | | e | 9:03 PM | | procedure are in the | | | | PDT | | results section. | + +--------+ + + + | TSH | Routin | 02/27/2017 | | Results for this | | | e | 9:03 PM | | procedure are in the | | | | PDT | | results section. | + +--------+ + + + | URINALYSIS WITH | Routin | 02/27/2017 | | Results for this | | MICROSCOPIC WITH | e | 4:38 PM | | procedure are in the | | CULTURE IF INDICATED | | PDT | | results section. | + +--------+ + + + | SODIUM, URINE, | Routin | 02/27/2017 | | Results for this | | RANDOM | e | 4:28 PM | | procedure are in the | | | | PDT | | results section. | + +--------+ + + + | CREATININE, URINE, | Routin | 02/27/2017 | | Results for this | | RANDOM | e | 4:28 PM | | procedure are in the | | | | PDT | | results section. | + +--------+ + + + | EXTRA LAVENDER TOP | Routin | 02/27/2017 | | Results for this | | TUBE | e | 2:19 PM | | procedure are in the | | | | PDT | | results section. | + +--------+ + + + | B TYPE NATRIURETIC | Add-On | 02/27/2017 | | Results for this | | PEPTIDE | | 2:19 PM | | procedure are in the | | | | PDT | | results section. | + +--------+ + + + | TROPONIN I | STAT | 02/27/2017 | | Results for this | | | | 2:18 PM | | procedure are in the | | | | PDT | | results section. | + +--------+ + + + | PROTIME INR | STAT | 02/27/2017 | | Results for this | | | | 2:18 PM | | procedure are in the | | | | PDT | | results section. | + +--------+ + + + | CBC WITH | STAT | 02/27/2017 | | Results for this | | DIFFERENTIAL | | 2:18 PM | | procedure are in the | | | | PDT | | results section. | + +--------+ + + + | COMPREHENSIVE | STAT | 02/27/2017 | | Results for this | | METABOLIC PANEL | | 2:18 PM | | procedure are in the | | | | PDT | | results section. | + +--------+ + + + | ED INFORMATION | Routin | 02/27/2017 | | | | EXCHANGE | e | 2:01 PM | | | | | | PDT | | | + +--------+ + + + | XR CHEST PA AND | STAT | 02/27/2017 | | Results for this | | LATERAL | | 1:30 PM | | procedure are in the | | | | PDT | | results section. | + +--------+ + + + | ECG 12 LEAD | STAT | 02/27/2017 | | Results for this | | | | 1:15 PM | | procedure are in the | | | | PDT | | results section. | + +--------+ + + + | ECG - EXTERNAL SCAN | | 02/27/2017 | | Results for this | | | | 12:00 AM | | procedure are in the | | | | PDT | | results section. | + +--------+ + + + | LABS - EXTERNAL SCAN | | 01/16/2017 | | Results for this | | | | 12:00 AM | | procedure are in the | | | | PDT | | results section. | + +--------+ + + + documented in this encounter Results B Type Natriuretic Peptide (03/04/2017 5:58 AM PDT) + +---------+ + + + | Component | Value | Ref Range | Performed | Pathologist | | | | | At | Signature | + +---------+ + + + | BNP | 377 (H) | <100 pg/mL | [facility] | [...] + | [facility] | [address] | [place] | [phone] | | [facility] | | [address] | | | - LABORATORY | | | | + + + + + Basic Metabolic Panel (03/04/2017 5:58 AM PDT) + + + + + + | Component | Value | Ref Range | Performed | Pathologist | | | | | At | Signature | + + + + + + | Na | 135 (L) | 136 - 149 | [facility] | [...] + + + + | CO2 | 24 | 24 - 31 mmol/L | [facility] [...] + + + + | Glucose | 90 | 70 - 109 mg/dL | [facility] [...] + + + + + + | eGFR, | 39 (L)Comment: | >=60 | [facility] | | | non- | GLOMERULAR FILTRATION | mL/min/1.73m2 | [facility] | | | [place] | RATE,ESTIMATED | | MEDICAL | | | | mL/min/1.54g6Mexh than | | CENTER - | | [...] + + + + | Calcium | 8.3 | 8.3 - 10.5 | [facility] | | | | | mg/dL | [facility] | | | | | | MEDICAL | | | | | | CENTER - | | | | | | LABORATORY | | + + + + + + | BUN/Creatin | 22.8 | | [facility] | | | ine [...] ST. | [address] | [place], [place] | [phone] | | [facility] | | [address] | | | - LABORATORY | | | | + + + + + Extra Green Top Tube (03/04/2017 5:58 AM PDT) + +-------+ + + + | Component | Value | Ref Range | Performed | Pathologist | | | | | At | Signature | + +-------+ + + + | Extra Green | Done | | [facility] | | | Top Tube | | | [facility] | | [...] [address] | [place] | [phone] | | [facility] | | [address] | | | - LABORATORY | | | | + + + + + Extra Lavender Top Tube (03/04/2017 5:58 AM PDT) + +-------+ + + + | Component | Value | Ref Range | Performed | Pathologist | | | | | At | Signature | + +-------+ + + + | Extra | Done | | [facility] | | | Lavender | | | [facility] | | | Top Tube | | [...] + | [facility] | [address] | [place] | [phone] | | [facility] | | [address] | | | - LABORATORY | | | | + + + + + Protime INR (03/04/2017 5:58 AM PDT) + + + + + + | Component | Value | Ref Range | Performed | Pathologist | | | | | At | Signature | + + + + + + | Prothrombin | 22.2 (H) | 11.3 - 13.9 | [facility] | | | Time | | seconds | [facility] | | | | | | MEDICAL | | | | | | CENTER - | | | | | | LABORATORY | | + + + + + + | INR | 1.89 (H)Comment: Usual | 0.90 - 1.10 | [...] [address] | [place] | [phone] | | [facility] | | [address] | | | - LABORATORY | | | | + + + + + Culture, Urine (03/03/2017 8:11 PM PDT) + + + + + + | Component | Value | Ref Range | Performed | Pathologist | | | | | At | Signature | + + + + + + | Culture | No Growth | | [facility] | | | | | [...] + | [facility] | [address] | [place] | [phone] | | [facility] | | [address] | | | - LABORATORY | | | | + + + + + Urinalysis with Microscopic with Culture if Indicated (03/03/2017 8:11 PM PDT) + + + + + + | Component | Value | Ref Range | Performed | Pathologist | | | | | At | Signature | + + + + + + | Color, | Yellow | Light Yellow, | [facility] | | | Urine | | Yellow, Straw | [facility] | | | | | | MEDICAL | | | | | | CENTER - | | | | | | LABORATORY | | + + + + + + | Clarity, | Hazy (A) | Clear | [facility] | | | [...] + + + + | Specific | 1.011 | 1.001 - 1.030 | [facility] | | | [place], | | | [facility] | | | Urine | | | MEDICAL | | | | | | CENTER - | | | | | | LABORATORY | | + + + + + + | Protein, | 30 mg/dL (A) | Negative | [facility] | | | Urine | | | [facility] | | | | | | MEDICAL | | | | | | CENTER - | | | | | | LABORATORY | | + + + + + + | Blood, | Large (A) | Negative | [facility] | | [...] + + + | White Blood | 15-25 (A) | 0 - 2 /HPF | [facility] | | | Cells, | | | [facility] | | | Urine | | | MEDICAL | | | | | | CENTER - | | | | | | LABORATORY | | + + + + + + | Red Blood | 50-100 (A) | 0 - 2 /HPF | [...] + + + + | Bacteria, | 1+ (A) | Negative /HPF | [facility] | | [...] + + + + | Hyaline | 0-2 | 0 - 2 /LPF [...] ST. | [address] | [place], [place] | [phone] | | [facility] | | [address] | | | - LABORATORY | | | | + + + + + XR Chest PA and Lateral (03/03/2017 10:35 AM PDT) + + | Specimen | + + | | + + + + + | Narrative | Performed At | + + + | CLINICAL INFORMATION: chf. COMPARISON: 03/02/2017 and 02/27/2017. | [facility] | | FINDINGS: Frontal and lateral views of the chest. Median | | | sternotomy wires with valvuloplasty changes. Lungs: Right lung | | | remains clear. Unchanged aeration of the left lung base with | | | persistent airspace opacities and left pleural effusion. No | | | pneumothorax. Heart: Unchanged. Mediastinum: Central pulmonary | | | vasculature has a normal appearance. IMPRESSION - No | | | significant interval change with persistent left basilar airspace | | | disease and left pleural effusion. Dictated and Signed by: Jadon White MD Electronically signed: 03/03/2017 1:21 PM | | + + + + + | Procedure Note | + + | Duane, Chase Results In - 03/03/2017 1:24 PM PDT CLINICAL INFORMATION: chf. | | | | COMPARISON: 03/02/2017 and 02/27/2017. | | | | FINDINGS: | | Frontal and lateral views of the chest. | | | | Median sternotomy wires with valvuloplasty changes. | | | | Lungs: Right lung remains clear. Unchanged aeration of the left lung base with | | persistent airspace opacities and left pleural effusion. No pneumothorax. | | | | Heart: Unchanged. | | | | Mediastinum: Central pulmonary vasculature has a normal appearance. | | | | | | IMPRESSION - No significant interval change with persistent left basilar airspace | | disease and left pleural effusion. | | | | Dictated and Signed by: Jadon White MD | | Electronically signed: 03/03/2017 1:21 PM | + + + +---------+ + + | Performing | Address | City/State/Zipcode | Phone Number | | Organization | | | | + +---------+ + + | [facility] | | | | + +---------+ + + Slide Review, Peripheral Smear (03/03/2017 5:47 AM PDT) + + + + + + | Component | Value | Ref Range | Performed | Pathologist | | | | | At | Signature | + + + + + + | Platelet | Decreased (A) | Adequate | [facility] | | | Estimate | | | [facility] | | | | | | MEDICAL | | | | | | CENTER - | | | | | | LABORATORY | | + + + + + + | Giant | Present (A) | Not Present | [facility] | | | Platelets | | | [facility] | | | | | | MEDICAL | | | | | | CENTER - | | | | | | LABORATORY | | + + + + + + | Hypochromas | Slight (A) | (none) | [facility] | | | ia | | | [facility] | | | | | | MEDICAL | | | | | | CENTER - | | | | | | LABORATORY | | + + + + + + | Variant | Few (A) | (none) | [facility] | | | Lymphocytes | | | [facility] | | | | | | MEDICAL | | | | | | CENTER - | | | | | | LABORATORY | | + + + + + + | Smudge | Slight | | [facility] | | | Cells | [...] + + | [facility] | [address] | [place] | [phone] | | [facility] | | [address] | | | - LABORATORY | | | | + + + + + B Type Natriuretic Peptide (03/03/2017 5:47 AM PDT) + +---------+ + + + | Component | Value | Ref Range | Performed | Pathologist | | | | | At | Signature | + +---------+ + + + | BNP | 410 (H) | <100 pg/mL | [facility] | [...] + + + + + | [facility] | [address] | [place] | [phone] | | [facility] | | [address] | | | - LABORATORY | | | | + + + + + CBC with Differential (03/03/2017 5:47 AM PDT) + + + + + [...] + + + | Red Blood | 3.54 (L) | 4.30 - 5.70 | [facility] | | | Cells | | M/uL | [facility] | | | | | | MEDICAL | | | | | | CENTER - | | | | | | LABORATORY | | + + + + + + | Hemoglobin | 10.4 (L) | 13.5 - 18.0 | [facility] | | | | | g/dL | [facility] | | | | | | MEDICAL | | | | | | CENTER - | | | | | | LABORATORY | | + + + + + + | Hematocrit | 31.9 (L) | 40.0 - 51.0 % | [facility] | | | | | | [facility] | | | | | | MEDICAL | | | | | | CENTER - | | | | | | LABORATORY | | + + + + + + | MCV | 90.1 | 83.0 - 101.0 fL | [facility] | | | | | | [facility] | | | | | | MEDICAL | | | | | | CENTER - | | | | | | LABORATORY | | + + + + + + | MCH | 29.5 | 28.0 - 35.0 pg | [facility] | | | | | | [facility] | | | | | | MEDICAL | | | | | | CENTER - | | | | | | LABORATORY | | + + + + + + | MCHC | 32.7 | 32.0 - 36.0 | [facility] | | | | | g/dL | [facility] | | | | | | MEDICAL | | | | | | CENTER - | | | | | | LABORATORY | | + + + + + + | RDW-CV | 16.6 (H) | <15.0 % | [facility] | | | | | | [facility] | | | | | | MEDICAL | | | | | | CENTER - | | | | | | LABORATORY | | + + + + + + | Platelet | 112 (L) | 140 - 440 K/uL | [facility] | | | Count | | | [facility] | | | | | | MEDICAL | | | | | | CENTER - | | | | | | LABORATORY | | + + + + + + | MPV | 9.2 | fL | [facility] | | | | | | [facility] | | | | | | MEDICAL | | | | | | CENTER - | | | | | | LABORATORY | | + + + + + + | % | 38.2 (L) | 45.0 - 82.0 % | [facility] | | | Neutrophils | | | [facility] | | | | | | MEDICAL | | | | | | CENTER - | | | | | | LABORATORY | | + + + + + + | % | 45.2 (H) | 20.0 - 45.0 % | [facility] | | | Lymphocytes | | | [facility] | | | | | | MEDICAL | | | | | | CENTER - | | | | | | LABORATORY | | + + + + + + | % Monocytes | 12.0 | 4.0 - 12.0 % | [facility] | | | | | | [facility] | | | | | | MEDICAL | | | | | | CENTER - | | | | | | LABORATORY | | + + + + + + | % | 4.3 | 0.0 - 5.0 % | [facility] [...] + + | Absolute | 2.40 | 1.80 - 8.50 | [facility] | | | Neutrophils | | K/uL | [facility] | | | | | | MEDICAL | | | | | | CENTER - | | | | | | LABORATORY | | + + + + + + | Absolute | 2.90 | 0.60 - 3.20 | [facility] | [...] [address] | [place] | [phone] | | [facility] | | [address] | | | - LABORATORY | | | | + + + + + Basic Metabolic Panel (03/03/2017 5:47 AM PDT) + + + + + + | Component | Value | Ref Range | Performed | Pathologist | | | | | At | Signature | + + + + + + | Na | 136 | 136 - 149 | [facility] | | | | | mmol/L | [facility] | | | | | | MEDICAL | | | | | | CENTER - | | | | | | LABORATORY | | + + + + + + | K | 4.7 | 3.5 - 5.1 | [facility] | [...] + + + + | Glucose | 101 | 70 - 109 mg/dL | [facility] [...] + + + + | Creatinine | 1.63 (H) | 0.60 - 1.30 | [facility] | | | | | mg/dL | [facility] | | | | | | MEDICAL | | | | | | CENTER - | | | | | | LABORATORY | | + + + + + + | eGFR, | 41 (L)Comment: | >=60 | [facility] | | | non- | GLOMERULAR FILTRATION | mL/min/1.73m2 | [facility] | | | [place] | RATE,ESTIMATED | | MEDICAL | | | | mL/min/1.51d3Xoky than | | CENTER - | | [...] + + + + | Calcium | 8.5 | 8.3 - 10.5 | [facility] | | | | | mg/dL | [facility] | | | | | | MEDICAL | | | | | | CENTER - | | | | | | LABORATORY | | + + + + + + | BUN/Creatin | 23.3 | | [facility] | | | ine [...] + | [facility] | [address] | [place] | [phone] | | [facility] | | [address] | | | - LABORATORY | | | | + + + + + Protime INR (03/03/2017 5:47 AM PDT) + + + + + + | Component | Value | Ref Range | Performed | Pathologist | | | | | At | Signature | + + + + + + | Prothrombin | 19.5 (H) | 11.3 - 13.9 | [facility] | | | Time | | seconds | [facility] | | | | | | MEDICAL | | | | | | CENTER - | | | | | | LABORATORY | | + + + + + + | INR | 1.60 (H)Comment: Usual | 0.90 - 1.10 | [...] [address] | [place] | [phone] | | [facility] | | [address] | | | - LABORATORY | | | | + + + + + XR Chest PA and Lateral (03/02/2017 2:35 PM PDT) + + | Specimen | + + | | + + + + + | Narrative | Performed At | + + + | CLINICAL INFORMATION: chf. COMPARISON: 02/27/2017. FINDINGS: | [facility] | | Frontal and lateral views of the chest. Median sternotomy wires | | | with valvuloplasty changes. Lungs: Unchanged aeration of the left | | | lung base with persistent consolidation with probable pleural | | | effusion. The right lung is clear. No pneumothorax. Heart: | | | Unchanged. Mediastinum: Central pulmonary vasculature has a normal | | | appearance. IMPRESSION - Unchanged left lung base airspace | | | disease and pleural effusion. Dictated and Signed by: Jadon | | | MD Christopher Electronically signed: 03/03/2017 1:05 PM | | + + + + + | Procedure Note | + + | Chase Zepeda Results In - 03/03/2017 1:08 PM PDT CLINICAL INFORMATION: chf. | | | | COMPARISON: 02/27/2017. | | | | FINDINGS: | | Frontal and lateral views of the chest. | | | | Median sternotomy wires with valvuloplasty changes. | | | | Lungs: Unchanged aeration of the left lung base with persistent consolidation | | with probable pleural effusion. The right lung is clear. No pneumothorax. | | | | Heart: Unchanged. | | | | Mediastinum: Central pulmonary vasculature has a normal appearance. | | | | | | IMPRESSION - Unchanged left lung base airspace disease and pleural effusion. | | | | Dictated and Signed by: Jadon White MD | | Electronically signed: 03/03/2017 1:05 PM | + + + +---------+ + + | Performing | Address | City/State/Zipcode | Phone Number | | Organization | | | | + +---------+ + + | [facility] | | | | + +---------+ + + Extra Lavender Top Tube (03/02/2017 4:58 AM PDT) + +-------+ + + + | Component | Value | Ref Range | Performed | Pathologist | | | | | At | Signature | + +-------+ + + + | Extra | Done | | [facility] | | | Lavender | | | [facility] | | | Top Tube | | [...] + | [facility] | [address] | [place] | [phone] | | [facility] | | [address] | | | - LABORATORY | | | | + + + + + Protime INR (03/02/2017 4:58 AM PDT) + + + + + + | Component | Value | Ref Range | Performed | Pathologist | | | | | At | Signature | + + + + + + | Prothrombin | 22.8 (H) | 11.3 - 13.9 | [facility] | | | Time | | seconds | [facility] | | | | | | MEDICAL | | | | | | CENTER - | | | | | | LABORATORY | | + + + + + + | INR | 1.95 (H)Comment: Usual | 0.90 - 1.10 | [...] + | [facility] | [address] | [place] | [phone] | | [facility] | | [address] | | | - LABORATORY | | | | + + + + + Basic Metabolic Panel (03/02/2017 4:58 AM PDT) + + + + + [...] + + + + | BUN | 53 (H) | 7 - 18 mg/dL | [facility] | | | | | | [facility] | | | | | | MEDICAL | | | | | | CENTER - | | | | | | LABORATORY | | + + + + + + | Creatinine | 1.69 (H) | 0.60 - 1.30 | [facility] | | | | | mg/dL | [facility] | | | | | | MEDICAL | | | | | | CENTER - | | | | | | LABORATORY | | + + + + + + | eGFR, | 39 (L)Comment: | >=60 | [facility] | | | non- | GLOMERULAR FILTRATION | mL/min/1.73m2 | [facility] | | | [place] | RATE,ESTIMATED | | MEDICAL | | | | mL/min/1.71t9Zgdy than | | CENTER - | | [...] + + + + | Calcium | 8.2 (L) | 8.3 - 10.5 | [facility] | | | | | mg/dL | [facility] | | | | | | MEDICAL | | | | | | CENTER - | | | | | | LABORATORY | | + + + + + + | BUN/Creatin | 31.4 | | [facility] | | | ine [...] ST. | [address] | [place] | [phone] | | [facility] | | [address] | | | - LABORATORY | | | | + + + + + B Type Natriuretic Peptide (03/02/2017 4:58 AM PDT) + +---------+ + + + | Component | Value | Ref Range | Performed | Pathologist | | | | | At | Signature | + +---------+ + + + | BNP | 336 (H) | <100 pg/mL | [facility] | | | | | | [facility] [...] [address] | [place] | [phone] | | [facility] | | [address] | | | - LABORATORY | | | | + + + + + B Type Natriuretic Peptide (03/01/2017 5:20 AM PDT) + +---------+ + + + | Component | Value | Ref Range | Performed | Pathologist | | | | | At | Signature | + +---------+ + + + | BNP | 296 (H) | <100 pg/mL | [facility] | [...] + | [facility] | [address] | [place] | [phone] | | [facility] | | [address] | | | - LABORATORY | | | | + + + + + Protime INR (03/01/2017 5:20 AM PDT) + + + + + + | Component | Value | Ref Range | Performed | Pathologist | | | | | At | Signature | + + + + + + | Prothrombin | 30.3 (H) | 11.3 - 13.9 | [facility] | | | Time | | seconds | [facility] | | | | | | MEDICAL | | | | | | CENTER - | | | | | | LABORATORY | | + + + + + + | INR | 2.80 (H)Comment: Usual | 0.90 - 1.10 | [...] + | [facility] | [address] | [place] | [phone] | | [facility] | | [address] | | | - LABORATORY | | | | + + + + + Renal Function Panel (03/01/2017 5:20 AM PDT) + + + + + [...] + + + + | K | 4.9 | 3.5 - 5.1 | [facility] | [...] + + + + | CO2 | 24 | 24 - 31 mmol/L | [facility] [...] + + + + | BUN | 82 (H) | 7 - 18 mg/dL | [facility] | | | | | | [facility] | | | | | | MEDICAL | | | | | | CENTER - | | | | | | LABORATORY | | + + + + + + | Creatinine | 2.25 (H) | 0.60 - 1.30 | [facility] | | | | | mg/dL | [facility] | | | | | | MEDICAL | | | | | | CENTER - | | | | | | LABORATORY | | + + + + + + | eGFR, | 28 (L) | >=60 | [facility] | | | non- | | mL/min/1.73m2 | [facility] | | | [place] | | | [facility] | | | | | | [facility] - | | | | | | LABORATORY | | + + + + + + | Calcium | 8.1 (L) | 8.3 - 10.5 | [facility] | | | | | mg/dL | [facility] | | | | | | [facility] | | | | | | C[facility] - | | | | | | LABORATORY | | + + + + + + | Albumin | 3.0 (L) | 3.2 - 5.0 g/dL | [facility] | | | | | | [facility] | | | | | | [facility] | | | | | | CENTER - | | | | | | LABORATORY | | + + + + + + | Phosphorus | 4.4 | 2.5 - 4.6 mg/dL | [facility] | | | | | | [facility] | | | | | | [facility] | | | | | | [facility] - | | | | | | LABORATORY | | + + + + + + | BUN/Creatin | 36.4 | | [facility] | | | ine [...] + | [facility] | [address] | [place] | [phone] | | [facility] | | [id number] | | | - LABORATORY | | | | + + + + + ECHO Complete (02/28/2017 3:41 PM PDT) + +-------+ + + + | Component | Value | Ref Range | Performed | Pathologist | | | | | At | Signature | + +-------+ + + + | LVEF-TTE | 70 | | | | | TRANSTHORAC | | | | | | IC ECHO | | | | | + +-------+ + + + + + | Specimen | + + | | + + + +-- + | Narrative | P erformed At | + +-- + | Transthoracic | | | Echocardiography Report (TTE) Demographics Patient Name SIDDIQI | | | RIDDLE Room Number 425 Patient Number | | | [id number] Date of Study 02/28/2017 Visit Number | | | [id number] Referring Physician | | | SANDEEP SANTIAGO E Number Date of 1935 | | | 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 Procedure | | | dateDate: 02/28/2017Start: 04:08 PM Technical Quality: Adequate | | | visualizationStudy Location: PortableIndications: Aortic Valve | | | Disorder 424.1/I35.9.Patient Status: RoutineHeight: 66 inchesWeight: | | | 206 poundsBSA: 2.03 m^2BMI: 33.25 kg/m^2Rhythm: Normal Sinus Rhythm | | | ConclusionsSummary1. Mild biatrial dilatation.2. Normal left | | | ventricular size with a mild concentric left ventricularhypertrophy. | | | Left ventricular systolic function is preserved. LVEF is 70%.3. Normal | | | right ventricular cavity with normal wall thickness and a | | | mildlyreduced right ventricular systolic function.4. Normal | | | functioning mechanical aortic valve replacement.5. Mildly thickened | | | and calcified mitral valve with adequate opening.6. Mild to moderate | | | mitral annular calcification.7. Mild pulmonary hypertension with a | | | peak systolic pressure of 45-50 mmHg.8. Normal IVC with normal | | | respiratory collapse. | | | Signature | | | | | | PM | | | -------- FindingsMitral ValveThickening and calcification of the | | | mitral valve leaflets.Mild mitral annular calcification is | | | present.Aortic ValveNormal functioning mechanical aortic valve | | | replacement.Tricuspid ValveMild tricuspid regurgitation suggestive of | | | a mildly elevated right systolicpressure of 45-50 mmHg.Pulmonic | | | ValveStructurally normal pulmonic valve with trace regurgitation.Left | | | AtriumThe left atrium is mildly dilated.Left VentricleNormal left | | | ventricular cavity size.Mild concentric left ventricular | | | hypertrophy.Ejection fraction is visually estimated at 70%.Right | | | AtriumNormal right atrium.Right VentricleNormal right ventricular | | | size.Reduced right ventricular global systolic function.TAPSE = 1.2 | | | cm.Pericardial EffusionNo evidence of pericardial effusion. | | | MiscellaneousNormal aortic root.The IVC appears normal.IVC respiratory | | | change in dimension > 50%. Valves Mitral Valve Peak E-Wave: 1.32 | | | m/s Peak A-Wave: 0.59 m/s Tissue Doppler Septal e' Velocity: 0.07 | | | m/s Septal E/e' Ratio:19.78 Aortic Valve Peak Velocity: 2.2 m/s | | | Area (continuity): 1.76 cm^2 Peak Gradient: 19.36 | | | mmHg Mean Gradient: 11.99 mmHg Tricuspid Valve TR | | | Velocity: 3.06 m/s LVOT Peak Velocity: 1.27 m/s LVOT Diameter: 1.82 | | | cm Structures Left Atrium LA A/P Dimension: 4.76 cm | | | LA Area: 21.8 cm^2 LA Vol/BSA Index: 40 mL/m^2 | | | LA Volume: 81.33 ml | | | EF Mixiuquhg36% Left | | | Ventricle Diastolic Dimension: 4.13 cm Septum Diastolic: 1.44 cm PW | | | Diastolic: 1.35 cm EF Calculated: 72% Miscellaneous Aorta Aortic | | | Root: 3.25 cm Ascending Aorta: 3.41 cm | | |Findings | | |Mitral Valve | | |Thickening and calcification of the mitral valve leaflets. | | |Mild mitral annular calcification is present. | | |Aortic Valve | | |Normal functioning mechanical aortic valve replacement. | | |Tricuspid Valve | | |Mild tricuspid regurgitation suggestive of a mildly elevated right systolic | | |pressure of 45-50 mmHg. | | |Pulmonic Valve | | |Structurally normal pulmonic valve with trace regurgitation. | | |Left Atrium | | |The left atrium is mildly dilated. | | |Left Ventricle | | |Normal left ventricular cavity size. | | |Mild concentric left ventricular hypertrophy. | | |Ejection fraction is visually estimated at 70%. | | |Right Atrium | | |Normal right atrium. | | |Right Ventricle | | |Normal right ventricular size. | | |Reduced right ventricular global systolic function. | | |TAPSE = 1.2 cm. | | |Pericardial Effusion | | |No evidence of pericardial effusion. | | | | | |Miscellaneous | | |Normal aortic root. | | |The IVC appears normal. | | |IVC respiratory change in dimension > 50%. | | | | | |Valves | | | | | | Mitral Valve | | | | | | Peak E-Wave: 1.32 m/s | | | Peak A-Wave: 0.59 m/s | | | | | | Tissue Doppler | | | | | | Septal e' Velocity: 0.07 m/s | | | Septal E/e' Ratio:19.78 | | | | | | Aortic Valve | | | | | | Peak Velocity: 2.2 m/s Area (continuity): 1.76 cm^2 | | | Peak Gradient: 19.36 mmHg Mean Gradient: 11.99 mmHg | | | | | | Tricuspid Valve | | | | | | TR Velocity: 3.06 m/s | | | | | | LVOT | | | | | | Peak Velocity: 1.27 m/s | | | LVOT Diameter: 1.82 cm | | | | | |Structures | | | | | | Left Atrium | | | | | | LA A/P Dimension: 4.76 cm LA Area: 21.8 cm^2 | | | LA Vol/BSA Index: 40 mL/m^2 LA Volume: 81.33 ml | | | EF Cotsgzaic54% | | | | | | Left Ventricle | | | | | | Diastolic Dimension: 4.13 cm | | | Septum Diastolic: 1.44 cm | | | PW Diastolic: 1.35 cm | | | EF Calculated: 72% | | | | | | Miscellaneous | | | | | | Aorta | | | | | | Aortic Root: 3.25 cm | | | Ascending Aorta: 3.41 cm | | | | | + +-- + + + | Procedure Note | + + | Duane, Rad Results In - 02/28/2017 4:40 PM PDT Transthoracic Echocardiography Report | | (TTE) Demographics Patient Name AMANDA VILLASENOR Room Number 425 Patient | | Number [id number] Date of Study 02/28/2017 Visit Number [id number] | | Referring Physician SANDEEP Ac Number Date of | | 1935 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 Mild biatrial dilatation.2. Normal left ventricular | | size with a mild concentric left ventricularhypertrophy. Left ventricular systolic | | function is preserved. LVEF is 70%.3. Normal right ventricular cavity with normal wall | | thickness and a mildlyreduced right ventricular systolic function.4. Normal functioning | | mechanical aortic valve replacement.5. Mildly thickened and calcified mitral valve with | | adequate opening.6. Mild to moderate mitral annular calcification.7. Mild pulmonary | | hypertension with a peak systolic pressure of 45-50 mmHg.8. Normal IVC with normal | | respiratory | | collapse.Signature | | ------ Electronically signed by CRUZITO BIRD MD(Interpreting physician) on | | 02/28/2017 04:40 | | PM FindingsMi | | tral ValveThickening and calcification of the mitral valve leaflets.Mild mitral annular | | calcification is present.Aortic ValveNormal functioning mechanical aortic valve | | replacement.Tricuspid ValveMild tricuspid regurgitation suggestive of a mildly elevated | | right systolicpressure of 45-50 mmHg.Pulmonic ValveStructurally normal pulmonic valve | | with trace regurgitation.Left AtriumThe left atrium is mildly dilated.Left | | VentricleNormal left ventricular cavity size.Mild concentric left ventricular | | hypertrophy.Ejection fraction is visually estimated at 70%.Right AtriumNormal right | | atrium.Right VentricleNormal right ventricular size.Reduced right ventricular global | | systolic function.TAPSE = 1.2 cm.Pericardial EffusionNo evidence of pericardial | | effusion.MiscellaneousNormal aortic root.The IVC appears normal.IVC respiratory change | | in dimension > 50%.Valves Mitral Valve Peak E-Wave: 1.32 m/s Peak A-Wave: 0.59 m/s | | Tissue Doppler Septal e' Velocity: 0.07 m/s Septal E/e' Ratio:19.78 Aortic Valve Peak | | Velocity: 2.2 m/s Area (continuity): 1.76 cm^2 Peak Gradient: 19.36 mmHg | | Mean Gradient: 11.99 mmHg Tricuspid Valve TR Velocity: 3.06 m/s LVOT Peak | | Velocity: 1.27 m/s LVOT Diameter: 1.82 cmStructures Left Atrium LA A/P Dimension: 4.76 | | cm LA Area: 21.8 cm^2 LA Vol/BSA Index: 40 mL/m^2 | | LA Volume: 81.33 ml EF Hufrhtvxo38% | | Left Ventricle Diastolic Dimension: 4.13 cm Septum Diastolic: 1.44 cm PW Diastolic: 1.35 | | cm EF Calculated: 72% Miscellaneous Aorta Aortic Root: 3.25 cm Ascending Aorta: 3.41 cm | |3. Normal right ventricular cavity with normal wall thickness and a mildly | |reduced right ventricular systolic function. | |4. Normal functioning mechanical aortic valve replacement. | |5. Mildly thickened and calcified mitral valve with adequate opening. | |6. Mild to moderate mitral annular calcification. | |7. Mild pulmonary hypertension with a peak systolic pressure of 45-50 mmHg. | |8. Normal IVC with normal respiratory collapse. | | | |Signature | | | | Electronically signed by CRUZITO BIRD MD(Interpreting physician) on | | 02/28/2017 04:40 PM | | | | | |Findings | |Mitral Valve | |Thickening and calcification of the mitral valve leaflets. | |Mild mitral annular calcification is present. | |Aortic Valve | |Normal functioning mechanical aortic valve replacement. | |Tricuspid Valve | |Mild tricuspid regurgitation suggestive of a mildly elevated right systolic | |pressure of 45-50 mmHg. | |Pulmonic Valve | |Structurally normal pulmonic valve with trace regurgitation. | |Left Atrium | |The left atrium is mildly dilated. | |Left Ventricle | |Normal left ventricular cavity size. | |Mild concentric left ventricular hypertrophy. | |Ejection fraction is visually estimated at 70%. | |Right Atrium | |Normal right atrium. | |Right Ventricle | |Normal right ventricular size. | |Reduced right ventricular global systolic function. | |TAPSE = 1.2 cm. | |Pericardial Effusion | |No evidence of pericardial effusion. | | | |Miscellaneous | |Normal aortic root. | |The IVC appears normal. | |IVC respiratory change in dimension > 50%. | | | |Valves | | | | Mitral Valve | | | | Peak E-Wave: 1.32 m/s | | Peak A-Wave: 0.59 m/s | | | | Tissue Doppler | | | | Septal e' Velocity: 0.07 m/s | | Septal E/e' Ratio:19.78 | | | | Aortic Valve | | | | Peak Velocity: 2.2 m/s Area (continuity): 1.76 cm^2 | | Peak Gradient: 19.36 mmHg Mean Gradient: 11.99 mmHg | | | | Tricuspid Valve | | | | TR Velocity: 3.06 m/s | | | | LVOT | | | | Peak Velocity: 1.27 m/s | | LVOT Diameter: 1.82 cm | | | |Structures | | | | Left Atrium | | | | LA A/P Dimension: 4.76 cm LA Area: 21.8 cm^2 | | LA Vol/BSA Index: 40 mL/m^2 LA Volume: 81.33 ml | | EF Zdruffndv60% | | | | Left Ventricle | | | | Diastolic Dimension: 4.13 cm | | Septum Diastolic: 1.44 cm | | PW Diastolic: 1.35 cm | | EF Calculated: 72% | | | | Miscellaneous | | | | Aorta | | | | Aortic Root: 3.25 cm | | Ascending Aorta: 3.41 cm | + + US Renal Limited (02/28/2017 10:00 AM PDT) + + | Specimen | + + | | + + + + + | Narrative | Performed At | + + + | RENAL ULTRASOUND 02/28/2017 9:25 AM CLINICAL HISTORY: ARF | [facility] | | COMPARISON: RENAL ULTRASOUND MARCH 2015 FINDINGS: The right kidney | | | measures 9.7 x 4.0 x 5.4 cm and the left kidney measures 10.7 x 4.8 x | | | 5.1 cm. Resistive indices are similarly elevated up to 0.86 on the | | | right and 0.82 on the left. No conclusive renal parenchymal | | | abnormality is visible. There is no hydronephrosis. The bladder is | | | decompressed by a catheter and is not evaluated. | | | IMPRESSION - 1. SIMILAR ELEVATION OF RENAL RESISTIVE INDICES | | | SUGGESTING MEDICAL RENAL DISEASE. NO HYDRONEPHROSIS. Dictated | | | and Signed by: Yakov Starks MD Electronically signed: 02/28/2017 | | | 1:35 PM | | + + + + + | Procedure Note | + + | Chase Zepeda Results In - 02/28/2017 1:38 PM PDT RENAL ULTRASOUND 02/28/2017 9:25 AM | | | | CLINICAL HISTORY: ARF | | | | COMPARISON: RENAL ULTRASOUND MARCH 2015 | | | | FINDINGS: The right kidney measures 9.7 x 4.0 x 5.4 cm and the left kidney | | measures 10.7 x 4.8 x 5.1 cm. Resistive indices are similarly elevated up to | | 0.86 on the right and 0.82 on the left. No conclusive renal parenchymal | | abnormality is visible. There is no hydronephrosis. | | | | The bladder is decompressed by a catheter and is not evaluated. | | | | IMPRESSION - | | | | 1. SIMILAR ELEVATION OF RENAL RESISTIVE INDICES SUGGESTING MEDICAL RENAL | | DISEASE. NO HYDRONEPHROSIS. | | | | Dictated and Signed by: Yakov Starks MD | | Electronically signed: 02/28/2017 1:35 PM | + + + +---------+ + + | Performing | Address | City/State/Zipcode | Phone Number | | Organization | | | | + +---------+ + + | [facility] | | | | + +---------+ + + Slide Review, Peripheral Smear (02/28/2017 5:25 AM PDT) + + + + + [...] + + + + | Platelet | Decreased (A) | Adequate | [facility] | | | Estimate | | | [facility] | | | | | | [facility] | | | | | | C[facility] - | | | | | | LABORATORY | | + + + + + + + + | Specimen | + + | Blood | + + + + + | Narrative | Performed At | + + + | Few Variant lymphs seen. | [facility] | | | [facility] | | | [facility] | | | - LABORATORY | + + + + + + + + | Performing | Address | City/State/Zipcode | Phone Number | | Organization | | | | + + + + + | [facility] | [address] | [place] | [phone] | | [facility] | | [address] | | | - LABORATORY | | | | + + + + + Troponin I (02/28/2017 5:25 AM PDT) + + + + + + | Component | Value | Ref Range | Performed | Pathologist | | | | | At | Signature | + + + + + + | Troponin I | 0.07 (H)Comment: | <0.06 ng/mL | [facility] | | | | Reference | | [facility] | | | | Ranges:0.00-0.06 = | [...] | | | | | | [employer] | | | | | [...] [address] | [place] | [phone] | | [facility] | | [address] | | | - LABORATORY | | | | + + + + + Protime INR (02/28/2017 5:25 AM PDT) + + + + + + | Component | Value | Ref Range | Performed | Pathologist | | | | | At | Signature | + + + + + + | Prothrombin | 48.6 (H) | 11.3 - 13.9 | [facility] | | | Time | | seconds | [facility] | | | | | | MEDICAL | | | | | | CENTER - | | | | | | LABORATORY | | + + + + + + | INR | 5.07 (HH)Comment: Usual | 0.90 - 1.10 | [facility] | | | | Oral Anticoagulation | | [facility] | | | | Range: 2.0 - | | MEDICAL | | | | 3.0High Level Oral | | CENTER - | | | | Anticoagulation Range: | | LABORATORY | | | | 2.5 - 3.5 Critical | | | | | | Result called to and | | | | | | read back by Javier | | | | | | Tonio ESTRELLA on 02/28/2017 | | | | | | at 7:23 by Kate Mccormick | | | | | | Hina. | | | | + + + + + + + + | Specimen | + + | Blood | + + + + + + + | Performing | Address | City/State/Zipcode | Phone Number | | Organization | | | | + + + + + | [facility] | [address] | [place] | [phone] | | [facility] | | [address] | | | - LABORATORY | | | | + + + + + Comprehensive Metabolic Panel (02/28/2017 5:25 AM PDT) + + + + + + | Component | Value | Ref Range | Performed | Pathologist | | | | | At | Signature | + + + + + + | Na | 145 | 136 - 149 | [facility] | | | | | mmol/L | [facility] | | | | | | [facility] | | | | | | CENTER - | | | | | | LABORATORY | | + + + + + + | K | 5.1 | 3.5 - 5.1 | [facility] | [...] + + + + | CO2 | 24 | 24 - 31 mmol/L | [facility] [...] + + + + | Glucose | 104 | 70 - 109 mg/dL | [facility] | | | | | | [facility] | | | | | | MEDICAL | | | | | | CENTER - | | | | | | LABORATORY | | + + + + + + | BUN | 106 (HH)Comment: | 7 - 18 mg/dL | [facility] | | | | Consistent with previous | | [facility] | | | | results. | | [facility] | | | | | | CENTER - | | | | | | LABORATORY | | + + + + + + | Creatinine | 2.49 (H) | 0.60 - 1.30 | [facility] | | | | | mg/dL | [facility] | | | | | | MEDICAL | | | | | | CENTER - | | | | | | LABORATORY | | + + + + + + | eGFR, | 25 (L)Comment: | >=60 | [facility] | | | non- | GLOMERULAR FILTRATION | mL/min/1.73m2 | [facility] | | | [place] | RATE,ESTIMATED | | MEDICAL | | | | mL/min/1.85w0Xxsk than | | CENTER - | | [...] + + + + | Calcium | 8.5 | 8.3 - 10.5 | [facility] | | | | | mg/dL | [facility] | | | | | | [facility] | | | | | | CENTER - | | | | | | LABORATORY | | + + + + + + | Albumin | 3.2 | 3.2 - 5.0 g/dL | [facility] | | | | | | [facility] | | | | | | MEDICAL | | | | | | CENTER - | | | | | | LABORATORY | | + + + + + + | Bilirubin | 0.7 | 0.1 - 1.5 mg/dL | [facility] | | | Total | | | [facility] | | | | | | MEDICAL | | | | | | CENTER - | | | | | | LABORATORY | | + + + + + + | Total | 5.6 (L) | 6.0 - 7.8 g/dL | [facility] | | | Protein | | | [facility] | | | | | | MEDICAL | | | | | | CENTER - | | | | | | LABORATORY | | + + + + + + | AST | 34 | 10 - 42 U/L | [facility] | | | | | | [facility] | | | | | | MEDICAL | | | | | | CENTER - | | | | | | LABORATORY | | + + + + + + | ALT | 15 | 6 - 45 U/L | [facility] | | | | | | [facility] | | | | | | MEDICAL | | | | | | CENTER - | | | | | | LABORATORY | | + + + + + + | Alkaline | 28 (L) | 40 - 110 U/L | [facility] | | | Phosphatase | | | [facility] | | [...] + + + | Albumin/Mary Alice | 1.3 | 0.8 - 2.0 | [facility] | | | bulin Ratio | | | [facility] | | | | | | MEDICAL | | | | | | CENTER - | | | | | | LABORATORY | | + + + + + + | BUN/Creatin | 42.6 | | [facility] | | | ine [...] + | [facility] | [address] | [place] | [phone] | | [facility] | | [address] | | | - LABORATORY | | | | + + + + + CBC with Differential (02/28/2017 5:25 AM PDT) + + + + + + | Component | Value | Ref Range | Performed | Pathologist | | | | | At | Signature | + + + + + + | White Blood | 5.1 | 4.0 - 11.0 K/uL | [facility] | | | Cells | | | [facility] | | | | | | MEDICAL | | | | | | CENTER - | | | | | | LABORATORY | | + + + + + + | Red Blood | 3.39 (L) | 4.30 - 5.70 | [facility] | | | Cells | | M/uL | [facility] | | | | [...] + + + + | Hematocrit | 31.3 (L) | 40.0 - 51.0 % | [facility] | | | | | | [facility] | | | | | | MEDICAL | | | | | | CENTER - | | | | | | LABORATORY | | + + + + + + | MCV | 92.2 | 83.0 - 101.0 fL | [facility] | | | | | | [facility] | | | | | | MEDICAL | | | | | | CENTER - | | | | | | LABORATORY | | + + + + + + | MCH | 29.5 | 28.0 - 35.0 pg | [facility] [...] + + + + | RDW-CV | 17.2 (H) | <15.0 % | [facility] | | | | | | [facility] | | | | | | MEDICAL | | | | | | CENTER - | | | | | | LABORATORY | | + + + + + + | Platelet | 109 (L) | 140 - 440 K/uL | [facility] | | | Count | | | [facility] | | | | | | MEDICAL | | | | | | CENTER - | | | | | | LABORATORY | | + + + + + + | MPV | 9.8 | fL | [facility] | | | | | | [facility] | | | | | | MEDICAL | | | | | | CENTER - | | | | | | LABORATORY | | + + + + + + | % | 36.0 (L) | 45.0 - 82.0 % | [facility] | | | Neutrophils | | | [facility] | | | | | | MEDICAL | | | | | | CENTER - | | | | | | LABORATORY | | + + + + + + | % | 48.0 (H) | 20.0 - 45.0 % | [facility] | | | Lymphocytes | | | [facility] | | | | | | MEDICAL | | | | | | CENTER - | | | | | | LABORATORY | | + + + + + + | % Monocytes | 12.1 (H) | 4.0 - 12.0 % | [...] + + + | % Basophils | 0.2 | 0.0 - 1.0 % | [facility] | | | | | | [facility] | | | | | | MEDICAL | | | | | | CENTER - | | | | | | LABORATORY | | + + + + + + | Absolute | 1.80 | 1.80 - 8.50 | [facility] | [...] + + + + | Absolute | 0.60 | 0.00 - 1.00 | [facility] | [...] + | [facility] | [address] | [place] | [phone] | | [facility] | | [address] | | | - LABORATORY | | | | + + + + + TSH (02/27/2017 9:03 PM PDT) + + + + + + | Component | Value | Ref Range | Performed | Pathologist | | | | | At | Signature | + + + + + + | TSH | 2.21Comment: All TSH | 0.34 - 5.60 | [facility] | | | | samples are screened | uIU/mL | [facility] | | | | using a 2nd Generation | | MEDICAL | | | | test, and are reflexed | | CENTER - | | | | to a 3rd Generation test | | LABORATORY | | | | if indicated. | | | | + + + + + + + + | Specimen | + + | Blood | + + + + + + + | Performing | Address | City/State/Zipcode | Phone Number | | Organization | | | | + + + + + | [facility] | [address] | [place] | [phone] | | [facility] | | [address] | | | - LABORATORY | | | | + + + + + Troponin I (02/27/2017 9:03 PM PDT) + + + + + [...] | | | | | | [employer] | | | | | [...] [address] | [place] | [phone] | | [facility] | | [address] | | | - LABORATORY | | | | + + + + + Urinalysis with Microscopic with Culture if Indicated (02/27/2017 4:38 PM PDT) + + + + + + | Component | Value | Ref Range | Performed | Pathologist | | | | | At | Signature | + + + + + + | Color, | Straw | Light Yellow, | [facility] | | [...] + + + | pH, Urine | 6.0 | 5.0 - 8.0 | [facility] | | | | | | [facility] | | | | | | MEDICAL | | | | | | CENTER - | | | | | | LABORATORY | | + + + + + + | Specific | 1.011 | 1.001 - 1.030 | [facility] | | | [place], | | | [facility] | | [...] + + + + | Blood, | Negative | Negative | [facility] | [...] + + + | Red Blood | 0-2 | 0 - 2 [...] + + + + | Hyaline | 0-2 | 0 - 2 /LPF | [facility] | | | Casts, | | | [facility] | | | Urine | | | MEDICAL | | | | | | CENTER - | | | | | | LABORATORY | | + + + + + + | Urine | Urine Culture Not | | [facility] | | | Comment | Indicated | | [facility] | | | [...] [address] | [place] | [phone] | | [facility] | | [address] | | | - LABORATORY | | | | + + + + + Creatinine, Urine, Random (02/27/2017 4:28 PM PDT) + +-------+ + + + | Component | Value | Ref Range | Performed | Pathologist | | | | | At | Signature | + +-------+ + + + | Creatinine, | 35 | mg/dL | [facility] | | | Urine, | | | [facility] | | | Random | | | MEDICAL | | | | | | CENTER - | | | | | | LABORATORY | | + +-------+ + + + + + | Specimen | + + | Urine | + + + + + | Narrative | Performed At | + + + | The reference range and other method performance specifications have | [facility] | | not been established for this test. These results should be | [facility] | | integrated into the clinical context for interpretation. | MEDICAL CENTER | | | - LABORATORY | + + + + + + + + | Performing | Address | City/State/Zipcode | Phone Number | | Organization | | | | + + + + + | [facility] | [address] | [place] | [phone] | | [facility] | | [address] | | | - LABORATORY | | | | + + + + + Sodium, Urine, Random (02/27/2017 4:28 PM PDT) + +-------+ + + + | Component | Value | Ref Range | Performed | Pathologist | | | | | At | Signature | + +-------+ + + + | Sodium, | 94 | 27 - 287 mmol/L | [facility] | | | Urine | | | [facility] | | | Random | | | MEDICAL | | | [...] [address] | [place] | [phone] | | [facility] | | [address] | | | - LABORATORY | | | | + + + + + B Type Natriuretic Peptide (02/27/2017 2:19 PM PDT) + +---------+ + + + | Component | Value | Ref Range | Performed | Pathologist | | | | | At | Signature | + +---------+ + + + | BNP | 368 (H) | <100 pg/mL | [facility] | | | | | [...] [facility] | [address] | [place], [place] | [phone] | | [facility] | | [address] | | | - LABORATORY | | | | + + + + + Extra Lavender Top Tube (02/27/2017 2:19 PM PDT) + +-------+ + + + | Component | Value | Ref Range | Performed | Pathologist | | | | | At | Signature | + +-------+ + + + | Extra | Done | | [facility] | | | Lavender | | | [facility] | | | Top Tube | | [...] [address] | [place] | [phone] | | [facility] | | [address] | | | - LABORATORY | | | | + + + + + Protime INR (02/27/2017 2:18 PM PDT) + + + + + + | Component | Value | Ref Range | Performed | Pathologist | | | | | At | Signature | + + + + + + | Prothrombin | 45.3 (H) | 11.3 - 13.9 | [facility] | | | Time | | seconds | [facility] | | | | | | MEDICAL | | | | | | CENTER - | | | | | | LABORATORY | | + + + + + + | INR | 4.64 (H)Comment: Usual | 0.90 - 1.10 | [...] [address] | [place] | [phone] | | [facility] | | [address] | | | - LABORATORY | | | | + + + + + Troponin I (02/27/2017 2:18 PM PDT) + + + + + + | Component | Value | Ref Range | Performed | Pathologist | | | | | At | Signature | + + + + + + | Troponin I | 0.09 (H)Comment: | <0.06 ng/mL | [facility] | [...] | | | | | | [employer] | | | | | [...] [address] | [place] | [phone] | | [facility] | | [address] | | | - LABORATORY | | | | + + + + + Comprehensive Metabolic Panel (02/27/2017 2:18 PM PDT) + + + + + [...] + + + + | K | 5.3 (H) | 3.5 - 5.1 | [facility] | [...] + + + | Anion Gap | 10 | 3 - 16 mmol/L | [facility] [...] + + + + | BUN | 118 (HH)Comment: | 7 - 18 mg/dL | [facility] | | | | Critical Result called | | [facility] | | | | to and read back by Efe | | MEDICAL | | | | Ashlee/SAMEER on | | CENTER - | | | | 02/27/2017 at 14:55 by Ty | | LABORATORY | | | | Sarah. | | | | + + + + + + | Creatinine | 2.77 (H) | 0.60 - 1.30 | [facility] | | | | | mg/dL | [facility] | | | | | | [facility] | | | | | | [facility] - | | | | | | LABORATORY | | + + + + + + | eGFR, | 22 (L)Comment: | >=60 | [facility] | | | non- | GLOMERULAR FILTRATION | mL/min/1.73m2 | [facility] | | | [place] | RATE,ESTIMATED | | MEDICAL | | | | mL/min/1.30b4Tilm than | | CENTER - | | [...] + + | Albumin | 3.7 | 3.2 - 5.0 g/dL | [facility] | | | | | | [facility] | | | | | | [facility] | | | | | | C[facility] - | | | | | | LABORATORY | | + + + + + + | Bilirubin | 0.9 | 0.1 - 1.5 mg/dL | [facility] | | | Total | | | [facility] | | | | | | [facility] | | | | | | CENTER - | | | | | | LABORATORY | | + + + + + + | Total | 6.8 | 6.0 - 7.8 g/dL | [facility] | | | Protein | | | [facility] | | | | | | [facility] | | | | | | CENTER - | | | | | | LABORATORY | | + + + + + + | AST | 36 | 10 - 42 U/L | [facility] | | | | | | [facility] | | | | | | [facility] | | | | | | CENTER - | | | | | | LABORATORY | | + + + + + + | ALT | 19 | 6 - 45 U/L | [facility] | | | | | | [facility] | | | | | | [facility] | | | | | | CENTER - | | | | | | LABORATORY | | + + + + + + | Alkaline | 34 (L) | 40 - 110 U/L | [facility] | | | Phosphatase | | | [facility] | | | | | | [facility] | | | | | | CENTER - | | | | | | LABORATORY | | + + + + + + | Globulin | 3.1 | 2.1 - 3.8 g/dL | [facility] [...] + + + + | BUN/Creatin | 42.6 | | [facility] | | | ine [...] [address] | [place] | [phone] | | [facility] | | [address] | | | - LABORATORY | | | | + + + + + CBC with Differential (02/27/2017 2:18 PM PDT) + + + + + + | Component | Value | Ref Range | Performed | Pathologist | | | | | At | Signature | + + + + + + | White Blood | 7.0 | 4.0 - 11.0 K/uL | [facility] | | | Cells | | | [facility] | | | | | | MEDICAL | | | | | | CENTER - | | | | | | LABORATORY | | + + + + + + | Red Blood | 3.89 (L) | 4.30 - 5.70 | [facility] [...] + + + + | Hematocrit | 35.7 (L) | 40.0 - 51.0 % | [...] + + + + | MCH | 29.1 | 28.0 - 35.0 pg | [facility] [...] + + + + | Platelet | 116 (L) | 140 - 440 K/uL | [facility] | | | Count | | | [facility] | | | | | | MEDICAL | | | | | | CENTER - | | | | | | LABORATORY | | + + + + + + | MPV | 9.7 | fL | [facility] | | | | | | [facility] | | | | | | [facility]ICAL | | | | | | CENTER - | | | | | | LABORATORY | | + + + + + + | % | 35.2 (L) | 45.0 - 82.0 % | [facility] | | | Neutrophils | | | [facility] | | | | | | MEDICAL | | | | | | CENTER - | | | | | | LABORATORY | | + + + + + + | % | 54.2 (H) | 20.0 - 45.0 % | [facility] | | | Lymphocytes | | | [facility] | | | | | | MEDICAL | | | | | | CENTER - | | | | | | LABORATORY | | + + + + + + | % Monocytes | 8.5 | 4.0 - 12.0 % | [facility] | | | | | | [facility] | | | | | | [facility]ICAL | | | | | | CENTER - | | | | | | LABORATORY | | + + + + + + | % | 1.8 | 0.0 - 5.0 % | [facility] | | | Eosinophils | | | [facility] | | [...] + + | Absolute | 2.40 | 1.80 - 8.50 | [facility] | | | Neutrophils | | K/uL | [facility] | | | | | | MEDICAL | | | | | | CENTER - | | | | | | LABORATORY | | + + + + + + | Absolute | 3.80 (H) | 0.60 - 3.20 | [facility] | | | Lymphocytes | | K/uL | [facility] | | | | | | MEDICAL | | | | | | CENTER - | | | | | | LABORATORY | | + + + + + + | Absolute | 0.60 | 0.00 - 1.00 | [facility] | [...] | + + + | Few variant lymphocytes seen on smear review. | [facility] | | | [facility] | | | [facility] | | | - LABORATORY | + + + + + + + + | Performing | Address | City/State/Zipcode | Phone Number | | Organization | | | | + + + + + | [facility] | [address] | [place], [place] | [phone] | | [facility] | | [address] | | | - LABORATORY | | | | + + + + + XR Chest PA and Lateral (02/27/2017 1:30 PM PDT) + + | Specimen | + + | | + + + + + | Narrative | Performed At | + + + | XR CHEST PA AND LATERAL 02/27/2017 1:30 PM HISTORY: Chest Pain. | [facility] | | COMPARISON: Multiple priors. Findings: Sternotomy wires and a | | | prosthetic cardiac valve are seen. The heart is borderline enlarged. | | | There is atherosclerosis of the aorta. Mediastinum is unremarkable. | | | Central pulmonary vasculature is normal. Stable consolidation is in | | | the left lung base with blunting of the left costophrenic angle. There | | | is mild scarring in the right lung base. Mild right curvature of the | | | thoracic spine is present along with mild spondylosis. There is | | | diffuse osteopenia. IMPRESSION - Stable consolidation in left | | | lung base with blunting of the left costophrenic angle that could | | | represent atelectasis, pneumonia, and/or pleural effusion. | | | Borderline cardiomegaly. Dictated and Signed by: Deep Garcia MD | | | Electronically signed: 02/27/2017 2:10 PM | | + + + + + | Procedure Note | + + | [place], Rad Results In - 02/27/2017 2:13 PM PDT XR CHEST PA AND LATERAL 02/27/2017 1:30 | | PMHISTORY: Chest Pain.COMPARISON: Multiple priors.Findings:Sternotomy wires and a | | prosthetic cardiac valve are seen. The heart isborderline enlarged. There is | | atherosclerosis of the aorta. Mediastinum isunremarkable. Central pulmonary vasculature | | is normal. Stable consolidation isin the left lung base with blunting of the left | | costophrenic angle. There ismild scarring in the right lung base. Mild right curvature | | of the thoracic spineis present along with mild spondylosis. There is diffuse | | osteopenia.IMPRESSION -Stable consolidation in left lung base with blunting of the left | | costophrenicangle that could represent atelectasis, pneumonia, and/or pleural | | effusion.Borderline cardiomegaly.Dictated and Signed by: Deep Garcia MD Electronically | | signed: 02/27/2017 2:10 PM | |mild scarring in the right lung base. Mild right curvature of the thoracic spine | |is present along with mild spondylosis. There is diffuse osteopenia. | | | |IMPRESSION - | |Stable consolidation in left lung base with blunting of the left costophrenic | |angle that could represent atelectasis, pneumonia, and/or pleural effusion. | | | |Borderline cardiomegaly. | | | |Dictated and Signed by: Deep Garcia MD | | Electronically signed: 02/27/2017 2:10 PM | + + + +---------+ + + | Performing | Address | City/State/Zipcode | Phone Number | | Organization | | | | + +---------+ + + | [facility] | | | | + +---------+ + + ECG 12 lead (02/27/2017 1:15 PM PDT) + + + + + + | Component | Value | Ref Range | Performed | Pathologist | | | | | At | Signature | + + + + + + | VENTRICULAR | 48 | BPM | [facility] | | | RATE EKG | | | | | + + + + + + | ATRIAL RATE | 48 | BPM | [facility] | | + + + + + + | P-R | 134 | ms | [facility] | | | INTERVAL | | | | | + + + + + + | QRS | 150 | ms | [facility] | | | DURATION | | | | | + + + + + + | Q-T | 484 | ms | [facility] | | | INTERVAL | | | | | + + + + + + | Q-T | 432 | ms | [facility] | | | INTERVAL | | | | | | (CORRECTED) | | | | | + + + + + + | P WAVE AXIS | 81 | degrees | [facility] | | + + + + + + | QRS AXIS | -19 | degrees | [facility] | | + + + + + + | T AXIS | 134 | degrees | [facility] | | + + + + + + | INTERPRETAT | Sinus bradycardiaLeft | | [facility] | | | ION TEXT | bundle branch | | | | | | blockAbnormal ECGWhen | | | | | | compared with ECG of | | | | | | 19-MAR-2016 | | | | | | 13:05,premature | | | | | | ventricular complexes | | | | | | are no longer | | | | | | presentthere is slight | | | | | | change in ST and T wave | | | | | | morphologies in leads | | | | | | V5 | | | | | | | | | | | | 6Confirmed by FREDERICK | | | | | | BINU CHARLTON ([id number]) on | | | | | | 02/28/2017 6:58:17 AM | | | | + + [...] | | + +---------+ + + ECG - EXTERNAL SCAN (02/27/2017 12:00 AM PDT) + + + | Narrative | Performed At | + + + | Ordered by an | | | unspecified provider. | | + + + LABS - EXTERNAL SCAN (01/16/2017 12:00 AM PDT) + + + | Narrative | Performed At | + + + | Ordered by an | | | unspecified provider. | | + + + documented in this encounter Visit Diagnoses + + | Diagnosis | + + | Acute renal failure, unspecified acute renal failure type (HCC) - Primary | + + | Bradycardia Other specified cardiac dysrhythmias | + + | Hyperkalemia Hyperpotassemia | + + | Elevated INR Abnormal coagulation profile | + + | Elevated troponin Other abnormal blood chemistry | + + | Pleural effusion, left Unspecified pleural effusion | + + | Remote Device Interrogation - Primary Fitting and adjustment of cardiac pacemaker | + + | Pacemaker Dual Chamber, MRI compatible, 05/14/17 [facility] [employer] Cardiac pacemaker | | in situ | + + | 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 Administered Medications + +--------+ +-------+------+------+ | Medication Order | MAR | Action | Dose | Rate | Site | | | Action | Date | | | | + +--------+ +-------+------+------+ | atorvaSTATin (LIPITOR) tablet | Given | 03/03/20 | 10 mg | | | | 10 mg 10 mg, Oral, NIGHTLY, | | 17 8:53 | | | | | First dose on Sat02/27/17 at 2100 | | PM PDT | | | | + +--------+ +-------+------+------+ +-------+ +-------+---+---+ | Given | 03/02/20 | 10 mg | | | | | 17 9:44 | | | | | | PM PDT | | | | +-------+ +-------+---+---+ | Given | 03/01/20 | 10 mg | | | | | 17 9:58 | | | | | | PM PDT | | | | +-------+ +-------+---+---+ +---+---+ | | | +---+---+ + +-------+ +--------+---+---+ | cephalexin (KEFLEX) capsule 500 | Given | 03/04/20 | 500 mg | | | | mg 500 mg, Oral, 2 TIMES DAILY, | | 17 4:31 | | | | | First dose (after last | | PM PDT | | | | | modification) on 03/04/17 at | | | | | | | 1645, Indications: UTI - LOWER | | | | | | + +-------+ +--------+---+---+ +---+---+ | | | +---+---+ + +-------+ +-------+---+---+ | citalopram (CELEXA) tablet 10 | Given | 03/02/20 | 10 mg | | | | mg 10 mg, Oral, DAILY, First | | 17 9:50 | | | | | dose on 03/02/17 at 2000 | | PM PDT | | | | + +-------+ +-------+---+---+ +---+---+ | | | +---+---+ + +-------+ +--------+---+---+ | cyanocobalamin (VITAMIN B-12) | Given | 03/04/20 | 1,000 | | | | tablet 1,000 mcg 1,000 mcg, | | 17 8:01 | mcg | | | | Oral, DAILY, First dose on Sat | | AM PDT | | | | | 02/27/17 at 1845 | | | | | | + +-------+ +--------+---+---+ +-------+ +--------+---+---+ | Given | 03/03/20 | 1,000 | | | | | 17 9:04 | mcg | | | | | AM PDT | | | | +-------+ +--------+---+---+ | Given | 03/02/20 | 1,000 | | | | | 17 8:24 | mcg | | | | | AM PDT | | | | +-------+ +--------+---+---+ +---+---+ | | | +---+---+ + +---------+ +---+-------+---+ | dextrose 5% and sodium chloride | New Bag | 03/01/20 | | 150 | | | 0.2% (D5-0.2 NS) infusion at | | 17 4:34 | | mL/hr | | | 150 mL/hr, Intravenous, | | AM PDT | | | | | CONTINUOUS, Starting [facility] 02/28/17 | | | | | | | at 1115 | | | | | | + +---------+ +---+-------+---+ + + +---+-------+---+ | New Bag | 02/29/20 | | 150 | | | | 17 9:38 | | mL/hr | | | | PM PDT | | | | + + +---+-------+---+ | Rate/Dose Change | 02/29/20 | | 150 | | | | 17 7:22 | | mL/hr | | | | PM PDT | | | | + + +---+-------+---+ +---+---+ | | | +---+---+ + + + +---+---+---+ | dextrose 5% and sodium chloride | Rate/Dos | 02/29/20 | | | | | 0.45% (D5 1/2 NS) infusion at | e Change | 17 10:44 | | | | | 100 mL/hr, Intravenous, | | AM PDT | | | | | CONTINUOUS, Starting 02/27/17 | | | | | | | at 1845 | | | | | | + + + +---+---+---+ +---------+ +---+ +---+ | New Bag | 02/28/20 | | 60 mL/hr | | | | 17 6:45 | | | | | | PM PDT | | | | +---------+ +---+ +---+ +---+---+ | | | +---+---+ + +---------+ +---+ +---+ | dextrose 5% and sodium chloride | New Bag | 03/03/20 | | 40 mL/hr | | | 0.45% (D5 1/2 NS) infusion at | | 17 11:46 | | | | | 40 mL/hr, Intravenous, | | PM PDT | | | | | CONTINUOUS, Starting 03/01/17 | | | | | | | at 1345 | | | | | | + +---------+ +---+ +---+ + + +---+ +---+ | Rate/Dose Change | 03/03/20 | | 40 mL/hr | | | | 17 7:00 | | | | | | PM PDT | | | | + + +---+ +---+ | New Bag | 03/03/20 | | 75 mL/hr | | | | 17 2:28 | | | | | | AM PDT | | | | + + +---+ +---+ +---+---+ | | | +---+---+ + +-------+ +------+---+---+ | donepezil (ARICEPT) tablet 5 mg | Given | 03/04/20 | 5 mg | | | | 5 mg, Oral, DAILY, First dose | | 17 8:01 | | | | | on 02/27/17 at 1845 | | AM PDT | | | | + +-------+ +------+---+---+ +-------+ +------+---+---+ | Given | 03/03/20 | 5 mg | | | | | 17 9:04 | | | | | | AM PDT | | | | +-------+ +------+---+---+ | Given | 03/02/20 | 5 mg | | | | | 17 8:24 | | | | | | AM PDT | | | | +-------+ +------+---+---+ +---+---+ | | | +---+---+ + +-------+ +--------+---+ + | enoxaparin (LOVENOX) 100 mg/mL | Given | 03/04/20 | 100 mg | | Arm-Left | | injection 100 mg 100 mg, | | 17 10:02 | | | Upper | | Subcutaneous, EVERY 24 HOURS | | AM PDT | | | | | (Daily), First dose on Mon | | | | | | | 03/04/17 at 0900 | | | | | | + +-------+ +--------+---+ + +---+---+ | | | +---+---+ + +-------+ +-------+---+---+ | furosemide (LASIX) tablet 40 mg | Given | 03/03/20 | 40 mg | | | | 40 mg, Oral, DAILY, First dose | | 17 9:04 | | | | | on Rachna 02/28/17 at 0900 | | AM PDT | | | | + +-------+ +-------+---+---+ +-------+ +-------+---+---+ | Given | 03/02/20 | 40 mg | | | | | 17 8:24 | | | | | | AM PDT | | | | +-------+ +-------+---+---+ | Given | 03/01/20 | 40 mg | | | | | 17 8:26 | | | | | | AM PDT | | | | +-------+ +-------+---+---+ +---+---+ | | | +---+---+ + +-------+ +-------+---+---+ | furosemide (LASIX) tablet 40 mg | Given | 03/04/20 | 40 mg | | | | 40 mg, Oral, 2 TIMES DAILY 0800 | | 17 8:01 | | | | | & 1600, First dose (after last | | AM PDT | | | | | modification) on 03/03/17 at | | | | | | | 1930 | | | | | | + +-------+ +-------+---+---+ +-------+ +-------+---+---+ | Given | 03/03/20 | 40 mg | | | | | 17 8:17 | | | | | | PM PDT | | | | +-------+ +-------+---+---+ +---+---+ | | | +---+---+ + +-------+ + +---+---+ | HYDROcodone-acetaminophen | Given | 02/29/20 | 1 tablet | | | | (NORCO) 5-325 mg per tablet 1 | | 17 1:48 | | | | | tablet 1 tablet, Oral, EVERY 6 | | PM PDT | | | | | HOURS PRN, Pain, Starting Wed | | | | | | | 02/27/17 at 1815 | | | | | | + +-------+ + +---+---+ +---+---+ | | | +---+---+ + +-------+ +--------+---+---+ | levothyroxine (SYNTHROID, | Given | 03/04/20 | 25 mcg | | | | LEVOTHROID) tablet 25 mcg 25 | | 17 6:28 | | | | | mcg, Oral, DAILY BEFORE | | AM PDT | | | | | BREAKFAST, First dose on Rachna | | | | | | | 02/28/17 at 0700, Give before | | | | | | | breakfast., | | | | | | + +-------+ +--------+---+---+ +-------+ +--------+---+---+ | Given | 03/03/20 | 25 mcg | | | | | 17 6:58 | | | | | | AM PDT | | | | +-------+ +--------+---+---+ | Given | 03/02/20 | 25 mcg | | | | | 17 6:15 | | | | | | AM PDT | | | | +-------+ +--------+---+---+ +---+---+ | | | +---+---+ + +-------+ +--------+---+---+ | magnesium oxide (MAG-OX) tablet | Given | 03/04/20 | 400 mg | | | | 400 mg 400 mg (rounded from 420 | | 17 8:01 | | | | | mg), Oral, DAILY, First dose on | | AM PDT | | | | | Rachna 02/28/17 at 0900 | | | | | | + +-------+ +--------+---+---+ +-------+ +--------+---+---+ | Given | 03/03/20 | 400 mg | | | | | 17 9:04 | | | | | | AM PDT | | | | +-------+ +--------+---+---+ | Given | 03/02/20 | 400 mg | | | | | 17 8:24 | | | | | | AM PDT | | | | +-------+ +--------+---+---+ +---+---+ | | | +---+---+ + +-------+ +-------+---+---+ | metoprolol succinate | Given | 03/04/20 | 25 mg | | | | (TOPROL-XL) ER tablet 25 mg 25 | | 17 8:01 | | | | | mg, Oral, DAILY, First dose on | | AM PDT | | | | | Rachna 02/28/17 at 0900, Tablet may | | | | | | | be cut where scored but do not | | | | | | | crush., | | | | | | + +-------+ +-------+---+---+ +-------+ +-------+---+---+ | Given | 03/03/20 | 25 mg | | | | | 17 9:04 | | | | | | AM PDT | | | | +-------+ +-------+---+---+ | Given | 03/02/20 | 25 mg | | | | | 17 8:23 | | | | | | AM PDT | | | | +-------+ +-------+---+---+ +---+---+ | | | +---+---+ + +-------+ +------+---+---+ | ondansetron (ZOFRAN) injection | Given | 03/02/20 | 4 mg | | | | 4 mg 4 mg, Intravenous, EVERY 4 | | 17 12:46 | | | | | HOURS PRN, Nausea, Vomiting, | | PM PDT | | | | | Starting 02/27/17 at 1815, | | | | | | | First line agent, | | | | | | + +-------+ +------+---+---+ +---+---+ | | | +---+---+ + +-------+ +--------+---+---+ | phytonadione (VITAMIN K) 10 | Given | 02/29/20 | 1.3 mg | | | | mg/mL liquid 1.3 mg 1.3 mg, | | 17 8:30 | | | | | Oral, ONCE, [facility] 02/28/17 at 0815, | | AM PDT | | | | | For 1 dose | | | | | | + +-------+ +--------+---+---+ +---+---+ | | | +---+---+ + +-------+ +---------+---+---+ | senna (SENOKOT) tablet 17.2 mg | Given | 03/03/20 | 17.2 mg | | | | 17.2 mg, Oral, 2 TIMES DAILY, | | 17 9:04 | | | | | First dose on Sat02/27/17 at | | AM PDT | | | | | 2100, If docusate ineffective or | | | | | | | not ordered., | | | | | | + +-------+ +---------+---+---+ +-------+ +---------+---+---+ | Given | 03/02/20 | 17.2 mg | | | | | 17 9:44 | | | | | | PM PDT | | | | +-------+ +---------+---+---+ | Given | 03/02/20 | 17.2 mg | | | | | 17 8:24 | | | | | | AM PDT | | | | +-------+ +---------+---+---+ +---+---+ | | | +---+---+ + +---------+ +---------+-------+---+ | sodium chloride 0.9% (NS) bolus | New Bag | 02/28/20 | 500 mLs | 500 | | | 500 mL 500 mL, Intravenous, | | 17 3:26 | | mL/hr | | | Administer over 1 Hours, ONCE, | | PM PDT | | | | | 02/27/17 at 1515, For 1 dose | | | | | | + +---------+ +---------+-------+---+ +---+---+ | | | +---+---+ + +-------+ +------+---+---+ | sodium polystyrene (KAYEXALATE) | Given | 02/28/20 | 15 g | | | | 15 g/60 mL suspension 15 g 15 | | 17 3:26 | | | | | g, Oral, ONCE, 02/27/17 at | | PM PDT | | | | | 1520, For 1 dose, Shake well. Do | | | | | | | not mix in orange juice., | | | | | | + +-------+ +------+---+---+ +---+---+ | | | +---+---+ + +-------+ +--------+---+---+ | tamsulosin (FLOMAX) capsule 0.4 | Given | 03/04/20 | 0.4 mg | | | | mg 0.4 mg, Oral, 2 TIMES DAILY, | | 17 8:01 | | | | | First dose on Sat02/27/17 at | | AM PDT | | | | | 2100, Do not open capsule., | | | | | | + +-------+ +--------+---+---+ +-------+ +--------+---+---+ | Given | 03/03/20 | 0.4 mg | | | | | 17 8:53 | | | | | | PM PDT | | | | +-------+ +--------+---+---+ | Given | 03/03/20 | 0.4 mg | | | | | 17 9:04 | | | | | | AM PDT | | | | +-------+ +--------+---+---+ +---+---+ | | | +---+---+ + +-------+ +-------+---+---+ | traZODone (DESYREL) tablet 50 | Given | 03/03/20 | 50 mg | | | | mg 50 mg, Oral, NIGHTLY PRN, | | 17 8:53 | | | | | Insomnia, Starting 02/27/17 at | | PM PDT | | | | | 1844 | | | | | | + +-------+ +-------+---+---+ +-------+ +-------+---+---+ | Given | 03/02/20 | 50 mg | | | | | 17 10:38 | | | | | | PM PDT | | | | +-------+ +-------+---+---+ | Given | 02/29/20 | 50 mg | | | | | 17 8:04 | | | | | | PM PDT | | | | +-------+ +-------+---+---+ +---+---+ | | | +---+---+ + +-------+ +------+---+---+ | warfarin (COUMADIN) tablet 3 mg | Given | 03/02/20 | 3 mg | | | | 3 mg, Oral, Daily - Warfarin, | | 17 6:20 | | | | | First dose on Sat03/01/17 at | | PM PDT | | | | | 1800, Reproductive Risk: Use | | | | | | | appropriate handling precautions. | | | | | | | Drug education required., | | | | | | + +-------+ +------+---+---+ +-------+ +------+---+---+ | Given | 03/01/20 | 3 mg | | | | | 17 6:05 | | | | | | PM PDT | | | | +-------+ +------+---+---+ +---+---+ | | | +---+---+ + +-------+ +--------+---+---+ | warfarin (COUMADIN) tablet 7.5 | Given | 03/03/20 | 7.5 mg | | | | mg 7.5 mg, Oral, Once - | | 17 10:37 | | | | | Warfarin, First dose (after last | | AM PDT | | | | | modification) on 03/03/17 at | | | | | | | 1015, For 1 dose, Reproductive | | | | | | | Risk: Use appropriate handling | | | | | | | precautions. Drug education | | | | | | | required., | | | | | | + +-------+ +--------+---+---+ +---+---+ | | | +---+---+ + +-------+ +--------+---+---+ | warfarin (COUMADIN) tablet 7.5 | Given | 03/04/20 | 7.5 mg | | | | mg 7.5 mg, Oral, Once - | | 17 10:02 | | | | | Warfarin, First dose (after last | | AM PDT | | | | | reorder) on 03/04/17 at 0830, | | | | | | | For 1 dose, Reproductive Risk: | | | | | | | Use appropriate handling | | | | | | | precautions. Drug education | | | | | | | required., | | | | | | + +-------+ +--------+---+---+ +---+---+ | | | +---+---+ documented in this encounter
--- OUTSIDE RECORDS SUMMARY | ~2020-05-18 | XMS | Encounter Summary ---
Demographics + + + | Address | [address] | | | [place] [address] | + + + | Home Phone | | + + + | Preferred Language | Unknown | + + + | Marital Status | | + + + | Confucianist Affiliation | [id number] | + + + | Race | Unknown | + + + | Ethnic Group | Unknown | + + + Author + + + | Author | [facility] | | | and [place] | + + + | Organization | [facility] | | [...] Team Providers + +------+ + | Care Heddle Machine Operator Name | Role | Phone [...] | +--------+ + + + + | 04/20/ | Implant | [employer] | Cruzito Bird, | Remote Device | | 2017 | Monitor | CARDIOLOGY [address] | Interrogation | | | | [place], | [place], | (Primary Dx); | | | | [place] [address] | [place] [address] | Pacemaker Dual | | | | [phone] | [phone] | Chamber, MRI | | | | [...] encounter Procedure Notes Cruzito Bird MD - 04/20/2018 11:59 PM PDTAssociated Order(s): DEVICE INTERROGATION- R EMOTEProcedure(s): DEVICE INTERROGATION- REMOTEPre-Procedure Diagnose(s): Pacemaker reprogra mming/check; Pacemaker; Tachycardia-bradycardia syndrome (HCC)Refer to [employer] documentation and remote PDF scanned into [employer] for remote interrogation results. Data collected by Nancy Dougherty RN Presenting rhythm: sinus rhythm atrial paced ventricular sensed at 60 beats. 0 mode switch episodes accounting for 0.0% of the time. No episodes. PVC singles 33 PVC singles 11/month PVC runs 0 PVC runs 0/month Histogram fair. Battery longevity 10.0 years. Apparent normal and stable device function. Device interrogation due in office in August 2018. documented in this encounter Plan of Treatment [...] Dx); | | | | | [id number] | Pacemaker Dual | | | | | [phone] | Chamber, MRI | | | | | | compatible, 05/14/17 | | | | | | Rupertelizabeth Bird; | | | | | | 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) | +--------+ + + + + | 01/05/ | Office | Cardiology | Emely Gabriel, | | | 2020 | Visit | | [facility] | | | | | | [place] | | | | | | [id number] | | | | | | | | +--------+ + + + + documented as of this encounter Procedures + +--------+ + + + | Procedure Name | Priori | Date/Time | Associated Diagnosis | Comments | | | ty | | | | + +--------+ + + + | DEVICE | Routin | 04/20/2018 | Remote Device | Results for this [...] Bird | | | | | | 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) | | + +--------+ + + + documented in this encounter Results Device Interrogation - Remote (04/20/2018 11:59 PM PDT) + + + | Narrative | Performed At | + + + | Cruzito Bird MD 05/02/2018 15:30 Refer to [facility] | [facility] | | documentation and remote PDF scanned into [employer] for remote | | | interrogation results. Data collected by Nancy Dougherty RN | | | Presenting rhythm: sinus rhythm atrial paced ventricular sensed at | | | 60 beats. 0 mode switch episodes accounting for 0.0% of the time. | | | No episodes. PVC singles 33 PVC singles 11/month | | | PVC runs 0 PVC runs 0/month Histogram fair. | | | Battery longevity 10.0 years. Apparent normal and stable device | | | function. Device interrogation due in office in August 2018. | | + + + + +---------+ [...]
--- OUTSIDE RECORDS SUMMARY | ~2020-05-18 | XMS | Encounter Summary ---
Demographics + + + | Address | [address] | | | [place] [address] | + + + | Home Phone | | + + + | Preferred Language | Unknown | + + + | Marital Status | | + + + | Adventist Affiliation | [id number] | + + + | Race | Unknown | + + + | Ethnic Group | Unknown | + + + Author + + + | Author | [facility] | | | and [place] | + + + | Organization | [facility] | [...] Team Providers + +------+ + | Care Follow Up Clerk Name | Role | Phone | [...] + + | 03/16/ | Hospital | [facility] | Cary Jain, | Acute on chronic | | 2016 - | Encounter | MED [facility] ICU [address] | diastolic | | | | [place], | [place], [place] | (congestive) heart | | 03/21/ | | [place] [address] | [id number] | failure (HCC) | | 2015 | | [phone] | | (Primary Dx); | | | | | Sy Hopkins MD | Persistent atrial | | | | | [address] | fibrillation (HCC); | | | | | [place], [place] | H/O aortic valve | | | | | [id number] | replacement; Hard of | | | | | | hearing, | | | | | | unspecified | | | | | | laterality; CRUZITO | | | | | | (obstructive sleep | | | | | | apnea); Pulmonary | | | | | | HTN ([facility]); Venous | | | | | | stasis of both lower | | | | | | extremities; Atrial | | | | | | fibrillation with | | | | | | RVR ([facility]); | | | | | | Paroxysmal atrial | | | | | | fibrillation ([facility]); | | | | | | Acute renal failure, | | | | | | unspecified acute | | | | | | renal failure type | | | | | | ([facility]); Atrial | | | | | | fibrillation, | | | | | | unspecified type | | | | | | ([facility]); Coronary | | | | | | artery disease | | | | | | involving [place] | | | | | | heart [...] failure | | | | | | ([facility]); Hard of | | | | | [...] of endocarditis who w as transferred from [facility] with shortness of breath and found [...] diastolic CHF. He is being discharged to [facility] in [place] for skill fidelina g Code Status: Full Code Disposition: [facility] Discharge Condition: good Discharge Medications New Medications [...] by: Galen Davis MD, 03/21/2016 12:16 [facility] documented in this encounter Medications at Time [...] Interactions: fenofibrate, levothyroxine, amiodarone NON-valvular AFIB patients: [id number] score (max 9): 7 [x]CHF, [x]HTN, [x]Age > 75 (2), []DM, [x] prior CVA,VTE (2), [x]PR,PAD, []Age 64-74, []Fe male Recent Labs Lab [...] 2-3 for atrial fibrillation Patient transferred from [place] due to uncontrolled atrial fibrillation/flutter Amiodarone initiated 03/18 Plan: 1. Warfarin 6mg daily to start 03/21/16 2. Labs in AM: INR, Hgb, Hct 3. Pharmacist follow daily Warfarin Dosing Nomogram Warfarin Dosing Expectations Per P&T-approved Galen Preston MD - 03/20/2016 6:57 PM PDT . [facility] PMG Hospitalist Progress Note Johnny Siddiqi is [...] as outlined above. Galen Davis 03/20/2016 18:58 [facility] Portions of this chart may have been created with [employer] voice recognition software. Occasi onal wrong-word or [...] 5mg on Sat and Managed by: TBD (ID records requested by provider) Sensitizers: age, CHF Drug Interactions: fenofibrate, levothyroxine, amiodarone NON-valvular AFIB patients: [id number] score (max 9): 7 [x]CHF, [x]HTN, [x]Age > 75 (2), []DM, [x] prior CVA,VTE (2), [x]PR,PAD, []Age 64-74, []Fe male Recent Labs Lab [...] 2-3 for atrial fibrillation Patient transferred from [place] due to uncontrolled atrial fibrillation/flutter Amiodarone initiated [...] Interactions: fenofibrate, levothyroxine, amiodarone NON-valvular AFIB patients: [id number] score (max 9): 7 [x]CHF, [x]HTN, [x]Age > 75 (2), []DM, [x] prior CVA,VTE (2), [x]PR,PAD, []Age 64-74, []Fe male Recent Labs 03/19/16 [...] 2-3 for atrial fibrillation Patient transferred from [place] due to uncontrolled atrial fibrillation/flutter Amiodarone initiated 03/18 Plan: 1. HOLD warfarin today 2. Pharmacist to dose tomorrow based in INR 3. Pharmacist follow daily Warfarin Dosing Nomogram Warfarin Dosing Expectations Per P&T-approved Sy Ibarra MD - 03/19/2016 8:45 AM PDT [facility] PMG Hospitalist Progress Note Johnny Siddiqi is [...] as outlined above. Sy Hopkins 03/19/2016 8:45 [facility] Portions of this chart may have been created with [employer] voice recognition software. Occasi onal wrong-word or sound-alike substitutions may have occurred due to the inherent carter itations of voice recognition software. Please read the chart carefully and recognize, using context, where these substitutions have occurred arker, Sy Ac MD - 0 03/18/2016 8:50 AM PDT [facility] PMG Hospitalist Progress Note Johnny Siddiqi is [...] as outlined above. Sy Hopkins 03/18/2016 8:50 [facility] Portions of this chart may have been created with [employer] voice recognition software. Occasi onal wrong-word or [...] Drug Interactions: fenofibrate, levothyroxine NON-valvular AFIB patients: [id number] score (max 9): 7 [x]CHF, [x]HTN, [x]Age > 75 (2), []DM, [x] prior CVA,VTE (2), [x]PR,PAD, []Age 64-74, []Fe male Recent Labs Labs 03/16 03/17 03/18 Hgb 12.2 11.3 11.8 Hct 37.2 35.8 37.6 Platelets 166 176 190 INR 2.87 3.09 3.41 Warfarin Dose 7 mg 5 mg Hold dose Assessment: The INR is 3.41 above the target range of 2-3 for atrial fibrillation Patient transferred from [place] due to uncontrolled atrial fibrillation/flutter Plan: 1. [...] on Sun and Thurs Managed by: TBD (ID records requested by provider) Sensitizers: age, CHF Drug Interactions: fenofibrate, levothyroxine NON-valvular AFIB patients: [id number] score (max 9): 7 [x]CHF, [x]HTN, [x]Age > 75 (2), []DM, [x] prior CVA,VTE (2), [x]PR,PAD, []Age 64-74, []Fe male Recent Labs Lab 03/17/16 0438 03/16/16 1306 CREA 1.49* 1.55* HGB 11.3* 12.2* HCT 35.8* 37.2* PLT 176 166 INR 3.09* 2.87* Date 03/16 03/17 Hgb 12.2 11.3 Hct 37.2 35.8 Platelets 166 176 INR 2.87 3.09 Warfarin Dose 7 mg 5 mg Assessment: The INR is within the target range of 2-3 for atrial fibrillation Patient transferred from [place] due to uncontrolled atrial fibrillation/flutter Plan: 1. Will lower warfarin to 5mg po x1 2. Medication profile reviewed for potential drug-drug interactions 3. Labs in am: Hgb, Hct, INR 4. Warfarin education received No. (RACE AND SPORTS BOOK WRITER MED) 5. Pharmacist to follow daily Warfarin Dosing Nomogram Warfarin Dosing Expectations Per P&T-approved Electronically signed by: Nancy Rizzo, PHARMD 03/17/2016 11:19 Sy Ibarra MD - 03/17/2016 9:37 AM PDT [facility] PMG Hospitalist Progress Note Johnny Siddiqi is [...] as outlined above. Sy Hopkins 03/17/2016 9:37 [facility] Portions of this chart may have been created with [employer] voice recognition software. Occasi onal wrong-word or [...] 5mg on Sat and Managed by: TBD (ID records requested by provider) Sensitizers: age, CHF Drug Interactions: fenofibrate, levothyroxine NON-valvular AFIB patients: [id number] score (max 9): 7 [x]CHF, [x]HTN, [x]Age > 75 (2), []DM, [x] prior CVA,VTE (2), [x]PR,PAD, []Age 64-74, []Fe male Recent Labs Lab 03/16/16 1306 CREA 1.55* HGB 12.2* HCT 37.2* PLT 166 INR 2.87* Date 03/16 Hgb 12.2 Hct 37.2 Platelets 166 INR 2.87 Warfarin Dose 7 mg Assessment: The INR is within the target range of 2-3 for atrial fibrillation Patient transferred from [place] due to uncontrolled atrial fibrillation/flutter Plan: 1. Warfarin 7mg po x1 ordered on 03/16/16 2. Medication profile reviewed for potential drug-drug interactions 3. Labs in am: Hgb, Hct, INR 4. Warfarin education received No. ([employer]OR[employer]OOK WRITER MED) 5. Pharmacist to follow daily Warfarin Dosing Nomogram Warfarin Dosing Expectations Per P&T-approved Electronically signed by: Diann Rhoades, PHARMD 03/16/2016 13:47 documented in th is encounter H&P Notes Cary Jain MD - 03/16/2016 1:07 PM PDTFormatting of this note might be different fr om the original. [facility] H[facility]ORY AND PHYSICAL Pt. [...] INR goal is 2-3, surgery done at [facility] Hypertension Liver cirrhosis (HCC) CVA (cerebral infarction) -2014 lacunar (not stated as new nor old) Dementia Alcoholic cirrhosis (HCC) 2003 CT scan 2003 at [facility] Endocarditis 2009 Enterococcus 6 weeks Amp + Gent PSA elevation 2008 Pt declined Bx then Peripheral vertigo 2012 BPPV left Venous ulcer (HCC) 2013 Leg Retinal detachment 2010 CAD (coronary artery disease) 2004 Had CABG to LAD (for 80-90% LAD) surgery done at [facility] Pulmonary HTN (HCC) Severe on Echo 2013 [...] (Coumadin) yet, you need daily Protimes at [facility] in [place] starting Saturday and be sure the ID Warfarin Cli iggy calls you every day [...] signed by: Cary Jain MD 03/16/2016 13:08 [facility] Portions of this chart may have been created with [employer] voice recognition software. Occasi onal wrong-word or [...] Goal Evaluation: Johnny is being transferred to [facility] in [place] for IP rehab. He was started on amiodarone while here and restarted on Warfarin with next PT/INR on March 23. He transferre d using a FWW. He is only needing O2 bled into his BIPAP while sleeping. He is on room air during the day. Family is aware of discharge plan. VSS. [facility] transporter here to t ion patient. NF Transfer - Mn luis fernando, Galen Song MD - 03/21/2016 12:14 PM PDTFormatting of this note might be different fro m the original. [facility] TRANSFER ORDERS Patient Name: Johnny Siddiqi Patient : 1935 Gender: male Date of Admission: 03/16/2016 Date of Discharge: 03/21/2016 Admitting Provider: Cary Jain MD Discharging Provider: Galen Davis MD Consultants: cardiology PCP: [facility] transferring to: [facility] Provider after transfer: Per SNF CODE STATUS: [x] Attempt CPR [] Do not resuscitate If patient is pulseless and not breathing, RN/RN CASE MANAGER HOSPICE may pronounce . Advanced Directives included: [] [...] for this patient. Diet: [] As tolerated BRIAR CUTTER may upgrade or downgrade diet as condition Indicates. [] RN may downgrade diet as indicated. Type: [x] Continue current diet of: Diet and Supplements Diet Diet general; fat and cholesterol modified; Effective Now Number of Occurrences: Until Specified Order Questions: Type Diet general Fat or cholesterol modifications fat and cholesterol modified [] Other: Consistency/Precautions: [] Whole [] Thin Liquids [] Cut-up [] [place] Thick [] Advanced Chopped [] Honey Thickened [] Chopped [] Advanced Ground [] 1:1 feedings [] Ground/Pureed [] Other: Tube Feedings: [] PEG [] GT [] JT [] NGT [] Formula type: (Food Service Tray Attendant may change/substitute if indicated). [] Continuous Rate: [...] [x] OT Evaluation & Management for: [] BRIAR CUTTER Evaluation &Management for: [] Other: Wound/Skin Care: [...] Galen Davis MD, certify that post hospital detention care is medically nec essary on a continuing basis for any of the conditions for which he/she received care during this hospitalization. Check one: [x] Skilled [] Intermediate Additional Orders/Instructions: Physician's signature:___Galen Davis 03/21/2016 12:1 4 [facility] USE ONLY: [] Admitting orders verbally reviewed with Admitting Physician, modified where appropriate, and approved. Verbal Order from Date: Time: _ RN name: RN signature: [] Admitting orders reviewed, modified where appropriate, and approved. Physician's signature: Date: Time: lan of Care - Ana Villeda i, Tie Maker-Clinical - 03/21/2016 11:59 AM PDTProblem: Discharge Planning [...] message since she is in flight to [place] today. This CM also called both of his sons, Kris and Rl and Kris was fine with the discharge plan to [facility] and he knew where this was located in [place]. Rl stated he was on his way back from [place] today and will be back in town [...] OK to arrange transport. Pkt completed for [facility] including the original completed PASRR, and the [...] with him and he with Deyvijane from [facility] and he has decid ed now to go there after she gave him some more information. Let patient and his RN know the transport time would be about 20-30 min away. Patient was also letting his son Chris know t hat he was going there today, although this CM let Chris, Cassandra, and Rl know about his di scharge to [facility] today. Cassandra, RN, [facility], who just arrived in [place], returned her ca ll and she was [...] he arrived. T/C to Elma at the [facility], letting her know that patient is being discharged to rehab at [facility] in [place] today. Electronically signed by: Ana Dietrich, STRATEGIES ANALYST 03/21/2016 15:47 la n of [facility] - Julianna Loja OT - 03/21/2016 11:52 [...] 40 minutes Subjective: "I am going to [facility] real soon." Objective: Pt. was approached for OT, and states he had been up and walked with PT a bit ago. He repo rts he had been up to bathroom and had a BM and a sponge bath. Pt. reports he may be going to [facility] today. Spoke with healthcare applications analyst and she reports she is working with [...] from multiple contributors. ADLs Toileting, Level of [place]: minimum assist (75% patient effort), supervision required Toileting Assess/Train, Position: sitting, standing Toileting Assess/Train, Impairments: impaired balance IADLs Therapeutic Exercise Functional Endurance Cognitive Cognitive Tests Bed Mobility Transfers Toilet, Level of [place]: contact guard assist, verbal cues required Wheelchair [...] INR goal is 2-3, surgery done at [facility] Hypertension Liver cirrhosis (HCC) CVA (cerebral infarction) -2014 lacunar (not stated as new nor old) Dementia Alcoholic cirrhosis (HCC) 2003 CT scan 2003 at [facility] Endocarditis 2009 Enterococcus 6 weeks Amp + Gent PSA elevation 2008 Pt declined Bx then Peripheral vertigo 2012 BPPV left Venous ulcer (HCC) 2013 Leg Retinal detachment 2010 CAD (coronary artery disease) 2005 Had CABG to LAD (for 80-90% LAD) surgery done at [facility] Pulmonary HTN (HCC) Severe on Echo 2013 [...] red here following 5 day stay at [facility]. he has a hx of CAD, [...] be from multiple contributors. Gait Level of [place] : contact guard assist Assistive Device: cane (straight, single point) Distance (feet): 100 Impairments: impaired balance, strength decreased, postural control impaired Transfers Sit-Stand, Level of [place]: contact guard assist, verbal cues required Stand-Sit, Level of [place]: verbal cues required, contact guard assist [id number], Assistive Device: cane (straight, single point) Impairments: impaired balance, strength decreased, postural control impaired Bed Mobility Assistive Device: bed rails Supine to Sit, Level of [place]: minimum assist (75% patient effort) Sit to Supine, Level of [place]: minimum assist (75% patient effort) Impairments: impaired balance, strength decreased Balance Sitting Balance: Static: normal balance Sitting Balance: Dynamic: good balance Standing Balance: Static: (Good-) Standing Balance: Dynamic: (Fair+) ROM BLE functional Strength L LE Strength: 4/5 R LE Strength: 4/5 Trunk strength: 4-/5 STG GOALS Bed Mobility Goal, Activity Type: all bed mobility activities [place] Level: modified independence Assistive Device: bed rails Time to Achieve: 5 - 7 days Goal Status: new, progressing toward goal Transfer Training Goal, Activity Type: sit to stand/stand to sit [place] Level: modified independence Assistive Device: cane (straight, single point) Time to Achieve: 5 - 7 days Goal Status: new, progressing toward goal Gait Training Goal, [place] Level: modified independence Assistive Device: cane (straight, [...] functional activity tolerance following prolonged hospitalization between [facility] and [facility]. He was able to perform transfers [...] stable on 1 lpm o2. lan of [facility] - Lynnette Gallego RN - 03/21/2016 5:01 [...] with FWW to void. SBA. lan of [facility] - Jacqueline Neal OT - 03/20/2016 5:37 [...] INR goal is 2-3, surgery done at [facility] Hypertension Liver cirrhosis (HCC) CVA (cerebral infarction) 3-2014 lacunar (not stated as new nor old) Dementia Alcoholic cirrhosis (HCC) 2004 CT scan 2004 at [facility] Endocarditis 2009 Enterococcus 6 weeks Amp + Gent PSA elevation 2009 Pt declined Bx then Peripheral vertigo 2012 BPPV left Venous ulcer (HCC) 2013 Leg Retinal detachment 2010 CAD (coronary artery disease) 2005 Had CABG to LAD (for 80-90% LAD) surgery done at [facility] Pulmonary HTN (HCC) Severe on Echo 2013 Diastolic CHF (HCC) Echo 2014 EF 68, ascites, pulm HTN Over-anticoagulated 04/01/2015 Past Surgical History Procedure Laterality Date Cardiac surgery [facility] AVR Allergies Allergen Reactions Latex Rash Precautions/Limitations: falls Evaluation SUBJECTIVE: History of Presenting Problem: Johnny Siddiqi is a 80 y.o. who presents to therapy for Transfer from [facility] following a 5 day hospital stay w/ diastolic dysfunction & inability to control HR. Pt w/ A-fib w/ RVR. Patient is right handed. OT Diagnosis: Impaired ADLs, decreased functional mobility, decreased safety awareness Previous Level of Function: Per pt report, independent in his home. Ambulated w/ a cane, h as 4-wheeled scooter outdoors sometimes. Role/Relationships: Son reportedly returning from [place] to help him? Living Environment/Accessibility: Lives With: [...] (3-4 OT addt'l OT visits) until discharge [facility] therapy or discharged from the hospital. Occupational [...] from multiple contributors. ADLs Toileting, Level of [place]: minimum assist (75% patient effort), supervision required Toileting Assess/Train, Position: sitting, standing Toileting Assess/Train, Impairments: impaired balance Transfers Toilet, Level of [place]: contact guard assist, verbal cues required STG [...] other respiratory needs identified . lan of [facility] - Ana Dietrich, Tie Maker-Clinical - 03/20/2016 4:15 PM PDTProblem: Discharge Planning [...] to have some HH come out thru [facility] at discharge, as well as some PT OT if needed. He is also agreeable to a or SNF stay if not safe to be home alone, if his son does not arrive prior to his discharge . This CM also made a call and spoke to Padmini at the [facility] to let her know that patient is here; that they were already gone by the time this CM could call on Saturday regarding this nyla elkins's admission. Padmini stated that per documentation, patient was sent to [facility] m onitoring, and that this is different than being seen at a ID facility and then being referr ed to a hospital, thus, his stay will not be covered by the ID. She confirmed that patient is not service [...] to go home.Electronically signed by: Ana Dietrich STRATEGIES ANALYST 03/20/2016 16:15 Faxed initial SNF referral and face sheet to [facility] # [id number], [id number] [phone], and called Matthew, to let her know that this referral was on its way as a plan B. Since nyla elkins lives in [place], he signed the preference form for [facility] for his rell rt term rehab there and placed signed form in ghost chart. Electronically signed by: Ana Dietrich STRATEGIES ANALYST 03/20/2016 16:31 la n of Care - Emily Medel Chaplain - 03/20/2016 11:30 AM PDTProblem: Spiritual Distr ess, Risk/Actual (Adult,Obstetrics,Pediatric) Goal: Spiritual Well-being Patient will demonstrate the desired outcomes by discharge/transition of care. Spiritual Care Johnny Siddiqi is a 80 y.o. male who is admitted for A-fib ([facility]) [I48.91]. Storage Facility Housekeeper visit was part of routine rounding. Spiritual [...] acceptance of his current condition. Spiritual Interventions: Storage Facility Housekeeper listened actively as patient was engaged in conversation. Storage Facility Housekeeper also affirmed h is confidence in God's sovereignty and care. Spiritual Outcomes: Patient expressed appreciation for the cyber defense incident responder visit. Spiritual Goals/Follow up: Storage Facility Housekeeper will visit patient as needed or requested. If any additional spiritual issues seamus e, please contact the cyber defense incident responder. lan of Care - Lynnette Bella RN [...] Needs & Preferences Outcome: Improving Admit from [facility] 03/16 for uncontrolled afib/flutter. Started Amiodarone [...] 2 8-11 3 12-14 4 15+ 5 torch heater score 3 No further interventions this shift lan of [facility] - Arun Mak RN - 03/18/2016 7:20 AM PDTProblem: Patient Care Overview (Adult) Goal: Personalization Needs & Preferences Outcome: Unchanged Admit from [facility] 03/16 for uncontrolled afib/flutter. PO dilt, still in A.Flutter bu t rates have been 80's-123s. On 2 L O2. VSS. A&O (can have confusion at times, early hayden lowe, calls roxy lan of [facility] - Donato Reid RRT - 03/18/2016 12:27 [...] of Care - Aleah, Maria Antonia Joya LAND LAW EXAMINER - 03/17/2016 7:04 PM PDT Problem: Patient [...] has a good, productive cough. lan of [facility] - Arun Nicole RN - 03/17/2016 7:50 AM PDTProblem: Patient Care Overview (Adult) Goal: Personalization Needs & Preferences Outcome: Improving from [facility] 03/16 for uncontrolled afib. Was there since 03/12 for CHF exacerbation an d afib.Has stage III kidney disease. Hx of CABG. Alert but confused, diltiazem gtt at 5mg/hr , was off for a while, remains A-flutter mostly 70s-80s but 130s with activity, o2 2L, sats 90s, trop 0.05-0.06, VSS, not impulsive lan of [facility] - Jp Sampson RRT - 03/16/2016 5:50 [...] lan of Care - Ana Villeda i, Tie Maker-Clinical - 03/16/2016 5:50 PM PDTProblem: Discharge Planning Goal: Patient s discharge needs will be identified in a timely manner Outcome: Unchanged This CM met with patient, his [id number], and his son(also named Johnny Siddiqi) in room to discuss his discharge plans. He reports that he lives in his youngest son's house alone right now since his son works aw ay from home, but will be coming home on Saturday, per his older brother Johnny, since he n o longer has a job. His son's small house is in [place], [place]. The [facility] took his racing car driver's license away from him so Johnny takes him around wherever he n eeds to go. His new [facility] DrJosefinais [facility] since Dr. Goldberg retired. Patient does have Medicare Family Care Advantage now and reports that he does not have Medi care B only A and Veterans insurance. Both he and his son stated that the [facility] where he has also be en there since Saturday night as an inpatient. He uses [facility] mail [facility] for his rn long term care meds and also [facility] for some of the shorter term meds. He has a little doggie that keeps him company too at home. He has a power scooter that he uses outside since the house is too small. He uses a cane in side the house. He has a daughter, Fiordaliza, who is an RN that lives in [place] and she will be coming to visit [...] verify any information with them regarding his [employer] connection, and other support that he [...] of guera lang is coming over from [place] tomorrow. Talked with patient about a plan [...] back home. CM will need to contact ID to see what services he is connected with once they are open aga in. Patient was talking about [employer] being set up, but need to confirm this information, since there may be some dementia.Electronically signed by: Ana Dietrich STRATEGIES ANALYST 03/16/2016 17: 50 [facility] umented in this encounter Plan of Treatment +--------+ + + + + | Date | Type | Specialty | Care Team | Description | +--------+ + + + + | 07/20/ | Implant | Cardiology | Cruzito Bird, | Remote Device | | 2019 | Monitor | | [facility] | Interrogation | | | | | 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 | [address] | [place], [place] | [phone] | | [facility] | | [address] | | | - LABORATORY | | [...] + + + + | eGFR, | 51 (L)Comment: | >=60 | [facility] | | | non- | GLOMERULAR FILTRATION | mL/min/1.73m2 | [facility] | | | [facility] | RATE,ESTIMATED | | MEDICAL | | | | mL/min/1.91p2Qrpj than | | CENTER - | | [...] | | ine Ratio | | | [facility] | | [...] [address] | [place] | [phone] | | [facility] | | [address] | | | - LABORATORY | | [...] + | [facility] | [address] | [place], [place] | [phone] | | [facility] | | [address] | | | - LABORATORY | | [...] lymphs seen. | [facility] | | | [facility] | | | [facility] | | | - LABORATORY | + + + + + + + + | Performing | Address | City/State/Zipcode | Phone Number | | Organization | | | | + + + + + | [facility] | [address] | [place] | [phone] | | [facility] | | [address] | | | - LABORATORY | | [...] | 0.00 | 0.00 - 0.10 | [facility] | | | Basophils | | K/uL [...] [address] | [place] | [phone] | | [facility] | | [address] | | | - LABORATORY | | [...] (H) | 7 - 18 mg/dL | [facility] | | | | | | [facility] | | | | | | MEDICAL | | | | | | CENTER - | | | | | | LABORATORY | | + + + + + + | Creatinine | 1.30 | 0.60 - 1.30 | [facility] | | | | | mg/dL | [facility] | | | | | | MEDICAL | | | | | | CENTER - | | | | | | LABORATORY | | + + + + + + | eGFR, | 53 (L)Comment: | >=60 | [facility] | | | non- | GLOMERULAR FILTRATION | mL/min/1.73m2 | [facility] | | | [facility] | RATE,ESTIMATED | | MEDICAL | | | | mL/min/1.60l5Cabp than | | CENTER - | | [...] + | [facility] | [address] | [place] | [phone] | | [facility] | | [address] | | | - LABORATORY | | [...] + | [facility] | [address] | [place] | [phone] | | [facility] | | [address] | | | - LABORATORY | | [...] + | [facility] | [address] | [place] | [phone] | | [facility] | | [address] | | | - LABORATORY | | [...] | | | | | | [employer] | | | | | [...] + | [facility] | [address] | [place] | [phone] | | [facility] | | [address] | | | - LABORATORY | | [...] | | | | | | [employer] | | | | | [...] [address] | [place] | [phone] | | [facility] | | [address] | | | - LABORATORY | | [...] | | | | | BINU CHARLTON ([id number]) on | | | | | | [...] | | | | | | [employer] | | | | | [...] + | [facility] | [address] | [place] | [phone] | | [facility] | | [address] | | | - LABORATORY | | [...] [address] | [place] | [phone] | | [facility] | | [address] | | | - LABORATORY | | [...] + + + + | eGFR, | 50 (L)Comment: | >=60 | [facility] | | | non- | GLOMERULAR FILTRATION | mL/min/1.73m2 | [facility] | | | [facility] | RATE,ESTIMATED | | MEDICAL | | | | mL/min/1.26v4Ubqc than | | CENTER - | | [...] | | | | | mg/dL | [facility] | | | | | | MEDICAL | | | | | | CENTER - | | | | | | LABORATORY | | + + + + + + | BUN/Creatin | 29.4 | | [facility] | | | ine Ratio | | | [facility] | | [...] [address] | [place] | [phone] | | [facility] | | [address] | | | - LABORATORY | | [...] | | Oral Anticoagulation | | [facility] | | | | Range: 2.0 [...] [address] | [place] | [phone] | | [facility] | | [address] | | | - LABORATORY | | | | + + + + + B Type Natriuretic Peptide (03/19/2016 6:45 AM PDT) + +---------+ + + + | Component | Value | Ref Range | Performed | Pathologist | | | | | At | Signature | + +---------+ + + + | BNP | 824 (H) | <100 pg/mL | [facility] | [...] + | [facility] | [address] | [place] | [phone] | | [facility] | | [address] | | | - LABORATORY | | [...] | | | | | | [employer] | | | | | [...] + | [facility] | [address] | [place] | [phone] | | [facility] | | [address] | | | - LABORATORY | | [...] | | | | | | [employer] | | | | | [...] + | [facility] | [address] | [place] | [phone] | | [facility] | | [address] | | | - LABORATORY | | | | + + + + + Troponin I (03/18/2016 12:24 PM PDT) + + + + + + | Component | Value | Ref Range | Performed | Pathologist | | | | | At | Signature | + + + + + + | Troponin I | 0.04Comment: Reference | <0.06 ng/mL | [facility] | [...] | | | | | | [employer] | | | | | [...] + | [facility] | [address] | [place] | [phone] | | [facility] | | [address] | | | - LABORATORY | | [...] [address] | [place] | [phone] | | [facility] | | [address] | | | - LABORATORY | | [...] | | | | | | [employer] | | | | | [...] [address] | [place] | [phone] | | [facility] | | [address] | | | - LABORATORY | | [...] | 0.00 | 0.00 - 0.10 | [facility] | | | Basophils | | K/uL | [facility] | [...] [address] | [place] | [phone] | | [facility] | | [address] | | | - LABORATORY | | [...] (H) | 7 - 18 mg/dL | [facility] | | | | | | [facility] | | | | | | MEDICAL | | | | | | CENTER - | | | | | | LABORATORY | | + + + + + + | Creatinine | 1.39 (H) | 0.60 - 1.30 | [facility] | | | | | mg/dL | [facility] | | | | | | MEDICAL | | | | | | CENTER - | | | | | | LABORATORY | | + + + + + + | eGFR, | 49 (L)Comment: | >=60 | [facility] | | | non- | GLOMERULAR FILTRATION | mL/min/1.73m2 | [facility] | | | [facility] | RATE,ESTIMATED | | MEDICAL | | | | mL/min/1.36v9Dszb than | | CENTER - | | [...] + | [facility] | [address] | [place] | [phone] | | [facility] | | [address] | | | - LABORATORY | | [...] + | [facility] | [address] | [place] | [phone] | | [facility] | | [address] | | | - LABORATORY | | [...] ST. | [address] | [place], [place] | [phone] | | [facility] | | [address] | | | - LABORATORY | | [...] PORTABLE dated | | 03/18/2016 5:17 AMHISTORY: [facility]: March 16, 2016.TECHNIQUE: A single portable [...] | | | | | | [employer] | | | | | [...] [address] | [place] | [phone] | | [facility] | | [address] | | | - LABORATORY | | [...] | | | | | | [employer] | | | | | [...] + | [facility] | [address] | [place] | [phone] | | [facility] | | [address] | | | - LABORATORY | | | | + + + + + Troponin I (03/17/2016 12:35 PM PDT) + + + + + + | Component | Value | Ref Range | Performed | Pathologist | | | | | At | Signature | + + + + + + | Troponin I | 0.05Comment: Reference | <0.06 ng/mL | [facility] | | | | Ranges:0.00-0.06 = | [...] | | | | | | [employer] | | | | | [...] + | [facility] | [address] | [place] | [phone] | | [facility] | | [address] | | | - LABORATORY | | | | + + + + + Troponin I (03/17/2016 6:35 AM PDT) + + + + + + | Component | Value | Ref Range | Performed | Pathologist | | | | | At | Signature | + + + + + + | Troponin I | 0.05Comment: Reference | <0.06 ng/mL | [facility] | | | | Ranges:0.00-0.06 = | | [facility] | | | | NORMAL>0.06 = [...] | | | | | | [employer] | | | | | [...] [address] | [place] | [phone] | | [facility] | | [address] | | | - LABORATORY | | [...] [address] | [place] | [phone] | | [facility] | | [address] | | | - LABORATORY | | [...] | | Cells | | M/uL | . [facility] | | | | | | [...] | Eosinophils | | K/uL | [facility] | | | | | | MEDICAL [...] [address] | [place] | [phone] | | [facility] | | [address] | | | - LABORATORY | | [...] 1.49 (H) | 0.60 - 1.30 | [facility] | | | | | mg/dL | [facility] | | | | | | MEDICAL | | | | | | CENTER - | | | | | | LABORATORY | | + + + + + + | eGFR, | 45 (L)Comment: | >=60 | [facility] | | | non- | GLOMERULAR FILTRATION | mL/min/1.73m2 | [facility] | | | [facility] | RATE,ESTIMATED | | MEDICAL | | | | mL/min/1.01q2Kxsi than | | CENTER - | | [...] + | [facility] | [address] | [place] | [phone] | | [facility] | | [address] | | | - LABORATORY | | [...] [address] | [place] | [phone] | | [facility] | | [address] | | | - LABORATORY | | [...] | | | | | | [employer] | | | | | [...] + + | Performing | Address | City/State/[facility] | Phone Number | | Organization | | | | + + + + + | [facility] | [address] | [place] | [phone] | | [facility] | | [address] | | | - LABORATORY | | [...] | | | | | | [employer] | | | | | [...] [address] | [place] | [phone] | | [facility] | | [address] | | | - LABORATORY | | [...] [address] | [place] | [phone] | | [facility] | | [address] | | | - LABORATORY | | [...] | Urine | | Yellow, Straw | [facility] | | | | | [...] - 1.030 | [facility] | | | [place], | | | [facility] | | [...] | | | Comment | | | [facility] | | [...] ST. | [address] | [place], [place] | [phone] | | [facility] | | [address] | | | - LABORATORY | | [...] | chromogenic agar method | | [facility] | | | [...] [address] | [place] | [phone] | | [facility] | | [address] | | | - LABORATORY | | [...] ST. | [address] | [place] | [phone] | | [facility] | | [address] | | | - LABORATORY | | [...] | | | | | | [employer] | | | | | [...] [address] | [place] | [phone] | | [facility] | | [address] | | | - LABORATORY | | [...] + | [facility] | [address] | [place] | [phone] | | [facility] | | [address] | | | - LABORATORY | | [...] | | Cells | | M/uL | [facility] | | | | | [...] + | [facility] | [address] | [place] | [phone] | | [facility] | | [address] | | | - LABORATORY | | [...] + + + + | eGFR, | 43 (L)Comment: | >=60 | [facility] | | | non- | GLOMERULAR FILTRATION | mL/min/1.73m2 | [facility] | | | [facility] | RATE,ESTIMATED | | MEDICAL | | | | mL/min/1.83h9Wtjo than | | CENTER - | | [...] 3.4 | 3.2 - 5.0 g/dL | [facility] [...] | an appended report. | | [facility] | | | | These results have [...] + | [facility] | [address] | [place] | [phone] | | [facility] | | [address] | | | - LABORATORY | | | | + + + + + T4, Free (03/16/2016 1:06 PM PDT) + +-------+ + + + | Component | Value | Ref Range | Performed | Pathologist | | | | | At | Signature | + +-------+ + + + | FT4 | 1.1 | 0.6 - 1.1 ng/dL | [facility] | | | | | [...] [address] | [place] | [phone] | | [facility] | | [address] | | | - LABORATORY | | [...] 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
--- OUTSIDE RECORDS SUMMARY | ~2020-05-18 | XMS | Encounter Summary ---
Demographics + + + | Address | [address] | | | [place] [address] | + + + | Home Phone | | + + + | Preferred Language | Unknown | + + + | Marital Status | | + + + | Moravian Affiliation | 1061 | + + + | Race | Unknown | + + + | Ethnic Group | Unknown | + + + Author + + + | Author | [facility] | | | and [place] | + + + | Organization | [facility] | | | and [...] Team Providers + +------+ + | Care Assembly Line Worker Name | Role | Phone | + [...] | 04/19/ | Implant | [facility] [place] | Cruzito Bird, | Remote Device | | 2019 | Monitor | CARDIOLOGY [address] | Interrogation | | | | [place], | [place], | (Primary Dx); | | | | [place] [address] | [place] [address] | Pacemaker Dual | | | | [phone] | [phone] | Chamber, MRI | | | | [...] encounter Procedure Notes Cruzito Bird MD - 04/19/2019 11:59 PM PDTAssociated Order(s): DEVICE INTERROGATION- R EMOTEProcedure(s): DEVICE INTERROGATION- REMOTEPre-Procedure Diagnose(s): Pacemaker reprogra mming/check; Pacemaker; Tachycardia-bradycardia syndrome (HCC)Date of Remote Interrogation: 01/27/2019 Refer to Paceart documentation and remote PDF scanned into [employer]Contact[employer] for remote interrogation re sults. Data collected by Yareli Molina RN Presenting rhythm: Sinus rhythm, atrial paced ventricular sensed with rate 62-65 beats. 0 mode switch episodes accounting for 0% of the time. No episodes. PVC singles 83,000 PVC singles 27,666/month PVC runs 0 Histogram fair. Battery longevity 10.1-10.3 years. Apparent normal and stable device function. Device interrogation due in office in December 2019. Patient notified. documented in this encounter Plan of Treatment +--------+ + + + + | Date | Type | Specialty | Care Team | Description | +--------+ + + + + | 07/20/ | Implant | Cardiology | Cruzito Bird, | Remote Device | | 2019 | Monitor | | [facility] | Interrogation | | | | | [place], | (Primary Dx); | | | | | [place] [address] | Pacemaker Dual | | | | | [phone] | Chamber, MRI | | | | | | compatible, 05/14/17 | | | | | | [facility]; | | | | | | 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) | +--------+ + + + + | 01/05/ | Office | Cardiology | Emely Gabriel, | | | 2020 | Visit | | SHAREPOINT WEB DEVELOPER [address] | | | | | | [place] | | | | | | [address] | | | | | | | | +--------+ + + + + documented as of this encounter Procedures + +--------+ + + + | Procedure Name | Priori | Date/Time | Associated Diagnosis | Comments | | | ty | | | | + +--------+ + + + | DEVICE | Routin | 01/29/2019 | Remote Device | Results for this [...] this encounter Results Device Interrogation - Remote (01/29/2019 12:00 AM PDT) + + + | Narrative | Performed At | + + + | Cruzito JONES | | MD Marge 01/29/2019 16:10Date of Remote Interrogation: | | | 01/27/2019 Refer to Paceart documentation and remote PDF scanned into | | | [facility] for remote interrogation results. Data collected by Yareli Rivas | | | SAMEER Molina Presenting rhythm: Sinus rhythm, atrial paced ventricular | | | sensed with rate 62-65 beats. 0 mode switch episodes accounting for 0% | | | of the time.No episodes. PVC singles 83,000 PVC | | | singles 27,666/monthPVC runs 0 Histogram fair. | | | Battery longevity 10.1-10.3 years.Apparent normal and stable device | | | function.Device interrogation due in office in December 2019.Patient | | | notified. | | |PVC singles 83,000 PVC singles 27,666/month | | |PVC runs 0 | | |Histogram fair. Battery longevity 10.1-10.3 years. | | |Apparent normal and stable device function. | | |Device interrogation due in office in December 2019. | | |Patient notified. | | | | | | | | + + + + + | Procedure Note | + + | Cruzito Bird MD - 04/19/2019 11:59 PM PDT Date of Remote Interrogation: | | 01/27/2019Refer to Pacehappy jack documentation and remote PDF scanned into 123ContactForm for remote | | interrogation results. Data collected by BATSHEVA Footeresenting rhythm: Sinus | | rhythm, atrial paced ventricular sensed with rate 62-65 beats. 0 mode switch episodes | | accounting for 0% of the time.No episodes. PVC singles 83,000 PVC singles | | 27,666/monthPVC runs 0 Histogram fair. Battery longevity 10.1-10.3 | | years.Apparent normal and stable device function.Device interrogation due in office in | | December 2019.Patient notified. | |PVC runs 0 | |Histogram fair. Battery longevity 10.1-10.3 years. | |Apparent normal and stable device function. | |Device interrogation due in office in December 2019. | |Patient notified. | + + + +---------+ + [...]
--- OUTSIDE RECORDS SUMMARY | ~2020-05-18 | XMS | Encounter Summary ---
Demographics + + + | Address | [address] | | | [place] [address] | + + + | Home Phone | | + + + | Preferred Language | Unknown | + + + | Marital Status | | + + + | Sikhism Affiliation | 1061 | + + + | Race | Unknown | + + + | Ethnic Group | Unknown | + + + Author + + + | Author | [facility] | | | and [place] | + + + | Organization | [facility] | | [...] Team Providers + +------+ + | Care Juice Scaleman Name | Role | Phone | + +------+ + PCP | Unavailable | + +------+ + Encounter Details +--------+ + + + + | Date | Type | Department | Care Team | Description | +--------+ + + + + | 11/13/ | Hospital | [facility] | Conversion | | | 2004 - | Encounter | [facility] | Transaction, | | | | | CARE FLOOR 4 888 | Provider Unknown | | | 11/22/ | | LEIGHA LAM | [phone] | | | 2004 | | [place], [place] | | | | | | [address] | Antonio Payne | | | | | [phone] | MD [address] | | | | | | [address] | | | | | | [place] [address] | | | | | | [phone] | | | | | | | [...] Interrogation | | | | | [place], | (Primary Dx); | | | | | [place] [address] | Pacemaker Dual | | | | | [phone] | Chamber, MRI | | | | | | compatible, 05/14/17 | | | | | | [facility]; | | | | | | 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) | +--------+ + + + + | 01/05/ | Office | Cardiology | Emely Gabriel, | | | 2020 | Visit | | AMAN[facility] [address] | | | | | | [place] | | | | | | [address] | | | | | | | | +--------+ + + + + documented as of this encounter Visit Diagnoses Not on filedocumented in this encounter"
--- OUTSIDE RECORDS SUMMARY | ~2020-05-18 | XMS | Encounter Summary ---
Demographics + + + | Address | [address] | | | [place] [address] | + + + | Home Phone [...] Team Providers + +------+ + | Care Debridging Machine Operator Name | Role | Phone [...] Provider Unknown | | | | | [place], [place] | [phone] | | | | | [address] | | | | | | [phone] | | | +--------+ + + + [...] Dx); | | | | | [place] [address] | Pacemaker Dual | | | | | [phone] | Chamber, MRI | | | | | | compatible, 05/14/17 | | | | | | [facility]; | | | | | | 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) | +--------+ + + + + | 01/05/ | Office | Cardiology | Emely Gabriel, | | | 2020 | Visit | | FRUIT RANCHER [address] | | | | | | [place] | | | | | | [address] | | | | | | | [...]
--- OUTSIDE RECORDS SUMMARY | ~2020-05-18 | XMS | Encounter Summary ---
Demographics + + + | Address | [address] | | | [place] [address] | + + + | Home Phone | | + + + | Preferred Language | Unknown | + + + | Marital Status | | + + + | Catholic Affiliation | 1061 | + + + [...] Team Providers + +------+ + | Care Vice President Of Engineering Name | Role | Phone | + [...] Provider Unknown | | | | | [place], [place] | | | | | | [address] | (Fax) | | | | | [...] 2020 | Monitor | | MD [address] [facility] | Interrogation | | | | | [place], | (Primary Dx); | | | | | [place] [address] | Pacemaker Dual | | | | | [phone] | Chamber, MRI | | | | [...] [place] | | | | | | [address] | | | | | | | | +--------+ + + + + documented as of this encounter Visit Diagnoses Not on filedocumented in this encounter"
--- OUTSIDE RECORDS SUMMARY | ~2020-05-18 | XMS | Encounter Summary ---
Demographics + + + | Address | [address] | | | [place] [address] | + + + | Home Phone [...] Providers + +------+ + | Care Piece Hand Name | Role | Phone | + +------+ + | Antonio Paulino MD | PCP | | + +------+ + Encounter Details +--------+ + + + + | Date | Type | Department | Care Team | Description | +--------+ + + + + | 12/22/ | Abstract | [facility] | Gaviota Yuan, | | | 2019 | | CARDIOLOGY [address] | [facility] | | | | | [place], | | | | | | [place] [address] | | | | | | [phone] | | | +--------+ + + + [...] | 2019 | Monitor | | [address] [facility] | Interrogation | | | | | [facility] 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 | + +--------+ + + + | EXTERNAL LAB: | Routin | 11/10/2019 | | Results for this | | GLUCOSE | e | | | procedure are in the | | | | | | results section. | + +--------+ + + + | EXTERNAL LAB: ALT | Routin | 11/10/2019 | | Results for this | | | e | | | procedure are in the | | | | | | results section. | + +--------+ + + + | EXTERNAL LAB: AST | Routin | 11/10/2019 | | Results for this | | | e | | | procedure are in the | | | | | | results section. | + +--------+ + + + | EXTERNAL LAB: | Routin | 11/10/2019 | | Results for this | | ALKALINE PHOSPHATASE | e | | | procedure are in the | | | | | | results section. | + +--------+ + + + | EXTERNAL LAB: | Routin | 11/10/2019 | | Results for this | | BILIRUBIN, TOTAL | e | | | procedure are in the | | | | | | results section. | + +--------+ + + + | EXTERNAL LAB: | Routin | 11/10/2019 | | Results for this | | ALBUMIN | e | | | procedure are in the | | | | | | results section. | + +--------+ + + + | EXTERNAL LAB: | Routin | 11/10/2019 | | Results for this | | PROTEIN, TOTAL | e | | | procedure are in the | | | | | | results section. | + +--------+ + + + | EXTERNAL LAB: | Routin | 11/10/2019 | | Results for this | | CALCIUM | e | | | procedure are in the | | | | | | results section. | + +--------+ + + + | EXTERNAL LAB: CARBON | Routin | 11/10/2019 | | Results for this | | DIOXIDE | e | | | procedure are in the | | | | | | results section. | + +--------+ + + + | EXTERNAL LAB: | Routin | 11/10/2019 | | Results for this | | CHLORIDE | e | | | procedure are in the | | | | | | results section. | + +--------+ + + + | EXTERNAL LAB: | Routin | 11/10/2019 | | Results for this | | POTASSIUM | e | | | procedure are in the | | | | | | results section. | + +--------+ + + + | EXTERNAL LAB: SODIUM | Routin | 11/10/2019 | | Results for this | | | e | | | procedure are in the | | | | | | results section. | + +--------+ + + + | EXTERNAL LAB: CBC | Routin | 11/10/2019 | | Results for this | | | e | | | procedure are in the | | | | | | results section. | + +--------+ + + + | EXTERNAL LAB: | Routin | 11/10/2019 | | Results for this | | TRIGLYCERIDES | e | | | procedure are in the | | | | | | results section. | + +--------+ + + + | EXTERNAL LAB: | Routin | 11/10/2019 | | Results for this | | CHOLESTEROL, HDL | e | | | procedure are in the | | | | | | results section. | + +--------+ + + + | EXTERNAL LAB: | Routin | 11/10/2019 | | Results for this | | CHOLESTEROL, TOTAL | e | | | procedure are in the | | | | | | results section. | + +--------+ + + + | EXTERNAL LAB: EGFR | Routin | 11/10/2019 | | Results for this | | | e | | | procedure are in the | | | | | | results section. | + +--------+ + + + | EXTERNAL LAB: | Routin | 11/10/2019 | | Results for this | | CREATININE | e | | | procedure are in the | | | | | | results section. | + +--------+ + + + documented in this encounter Results External Lab: TIMMY (11/10/2019) + +--------+ + + + | Component | Value | Ref Range | Performed | Pathologist | | | | | At | Signature | + +--------+ + + + | BUN, | 30 (A) | 7 - 23 | EXTERNAL | | | External | | | LAB | | + +--------+ + + + + +---------+ + + | Performing | Address | City/State/Zipcode | Phone Number | | Organization | | | | + +---------+ + + | EXTERNAL LAB | | | | + +---------+ + + External Lab: Glucose (11/10/2019) + +---------+ + + + | Component | Value | Ref Range | Performed | Pathologist | | | | | At | Signature | + +---------+ + + + | Glucose, | 132 (A) | 71 - 109 | EXTERNAL | | | External | | | LAB | | + +---------+ + + + + +---------+ + + | Performing | Address | City/State/Zipcode | Phone Number | | Organization | | | | + +---------+ + + | EXTERNAL LAB | | | | + +---------+ + + External Lab: ALT (11/10/2019) + +-------+ + + + | Component | Value | Ref Range | Performed | Pathologist | | | | | At | Signature | + +-------+ + + + | ALT, | 25 | 9 - 57 | EXTERNAL | | | External | | | LAB | | + +-------+ + + + + +---------+ + + | Performing | Address | City/State/Zipcode | Phone Number | | Organization | | | | + +---------+ + + | EXTERNAL LAB | | | | + +---------+ + + External Lab: AST (11/10/2019) + +-------+ + + + | Component | Value | Ref Range | Performed | Pathologist | | | | | At | Signature | + +-------+ + + + | AST, | 43 | 14 - 44 | EXTERNAL | | | External | | | LAB | | + +-------+ + + + + +---------+ + + | Performing | Address | City/State/Zipcode | Phone Number | | Organization | | | | + +---------+ + + | EXTERNAL LAB | | | | + +---------+ + + External Lab: Alkaline Phosphatase (11/10/2019) + +-------+ + + + | Component | Value | Ref Range | Performed | Pathologist | | | | | At | Signature | + +-------+ + + + | ALP, | 98 | 45 - 129 | EXTERNAL | | | External | | | LAB | | + +-------+ + + + + +---------+ + + | Performing | Address | City/State/Zipcode | Phone Number | | Organization | | | | + +---------+ + + | EXTERNAL LAB | | | | + +---------+ + + External Lab: Bilirubin, Total (11/10/2019) + +-------+ + + + | Component | Value | Ref Range | Performed | Pathologist | | | | | At | Signature | + +-------+ + + + | Bilirubin, | 0.5 | 0.2 - 1.3 | EXTERNAL | | | Total, | | | LAB | | | External | | | | | + +-------+ + + + + +---------+ + + | Performing | Address | City/State/Zipcode | Phone Number | | Organization | | | | + +---------+ + + | EXTERNAL LAB | | | | + +---------+ + + External Lab: Albumin (11/10/2019) + +-------+ + + + | Component | Value | Ref Range | Performed | Pathologist | | | | | At | Signature | + +-------+ + + + | Albumin, | 3.9 | 3.5 - 5 | EXTERNAL | | | External | | | LAB | | + +-------+ + + + + +---------+ + + | Performing | Address | City/State/Zipcode | Phone Number | | Organization | | | | + +---------+ + + | EXTERNAL LAB | | | | + +---------+ + + External Lab: Protein, Total (11/10/2019) + +---------+ + + + | Component | Value | Ref Range | Performed | Pathologist | | | | | At | Signature | + +---------+ + + + | Protein, | 6.3 (A) | 6.5 - 8.2 | EXTERNAL | | | Total, | | | LAB | | | External | | | | | + +---------+ + + + + +---------+ + + | Performing | Address | City/State/Zipcode | Phone Number | | Organization | | | | + +---------+ + + | EXTERNAL LAB | | | | + +---------+ + + External Lab: Calcium (11/10/2019) + +-------+ + + + | Component | Value | Ref Range | Performed | Pathologist | | | | | At | Signature | + +-------+ + + + | Calcium, | 8.9 | 8.4 - 10.5 | EXTERNAL | | | External | | | LAB | | + +-------+ + + + + +---------+ + + | Performing | Address | City/State/Zipcode | Phone Number | | Organization | | | | + +---------+ + + | EXTERNAL LAB | | | | + +---------+ + + External Lab: Carbon Dioxide (11/10/2019) + +-------+ + + + | Component | Value | Ref Range | Performed | Pathologist | | | | | At | Signature | + +-------+ + + + | Carbon | 27 | 21 - 32 | EXTERNAL | | | Dioxide, | | | LAB | | | External | | | | | + +-------+ + + + + +---------+ + + | Performing | Address | City/State/Zipcode | Phone Number | | Organization | | | | + +---------+ + + | EXTERNAL LAB | | | | + +---------+ + + External Lab: Chloride (11/10/2019) + +---------+ + + + | Component | Value | Ref Range | Performed | Pathologist | | | | | At | Signature | + +---------+ + + + | Chloride, | 1.3 (A) | 98 - 107 | EXTERNAL | | | External | | | LAB | | + +---------+ + + + + +---------+ + + | Performing | Address | City/State/Zipcode | Phone Number | | Organization | | | | + +---------+ + + | EXTERNAL LAB | | | | + +---------+ + + External Lab: Potassium (11/10/2019) + +-------+ + + + | Component | Value | Ref Range | Performed | Pathologist | | | | | At | Signature | + +-------+ + + + | Potassium, | 4.7 | 3.5 - 5.1 | EXTERNAL | | | External | | | LAB | | + +-------+ + + + + +---------+ + + | Performing | Address | City/State/Zipcode | Phone Number | | Organization | | | | + +---------+ + + | EXTERNAL LAB | | | | + +---------+ + + External Lab: Sodium (11/10/2019) + +-------+ + + + | Component | Value | Ref Range | Performed | Pathologist | | | | | At | Signature | + +-------+ + + + | Sodium, | 141 | 133 - 145 | EXTERNAL | | | External | | | LAB | | + +-------+ + + + + +---------+ + + | Performing | Address | City/State/Zipcode | Phone Number | | Organization | | | | + +---------+ + + | EXTERNAL LAB | | | | + +---------+ + + External Lab: CBC (11/10/2019) + + + + + + | Component | Value | Ref Range | Performed | Pathologist | | | | | At | Signature | + + + + + + | WBC, | 8.4 | 3 - 10.6 | EXTERNAL | | | External | | | LAB | | + + + + + + | HGB, | 11.8 | 11.8 - 17.1 | EXTERNAL | | | External | | | LAB | | + + + + + + | HCT, | 38.6 | 36 - 51 | EXTERNAL | | | External | | | LAB | | + + + + + + | PLT, | 117 (A) | 150 - 400 | EXTERNAL | | | External | | | LAB | | + + + + + + | Neutrophils | 20.9 (A) | 44 - 74 | EXTERNAL | | | %, | | | LAB | | | External | | | | | + + + + + + | Lymphocytes | 54.1 (A) | 15 - 42 | EXTERNAL | | | %, | | | LAB | | | External | | | | | + + + + + + | Monocytes | 23.8 (A) | 4 - 13 | EXTERNAL | | | %, External | | | LAB | | + + + + + + | Eosinophils | 0.9 | 0 - 7 | EXTERNAL | | | %, | | | LAB | | | External | | | | | + + + + + + | Neutrophils | 1.8 | 1.2 - 7 | EXTERNAL | | | , Absolute, | | | LAB | | | External | | | | | + + + + + + | Lymphocytes | 4.6 (A) | 0.6 - 3.4 | EXTERNAL | | | , Absolute, | | | LAB | | | External | | | | | + + + + + + | Monocytes, | 2 (A) | 0.2 - 1 | EXTERNAL | | | Absolute, | | | LAB | | | External | | | | | + + + + + + | Eosinophils | 0.1 | 0 - 0.5 | EXTERNAL | | | , Absolute | | | LAB | | + + + + + + | Basophils, | 0 | 0 - 0.9 | EXTERNAL | | | Absolute | | | LAB | | + + + + + + | RBC, | 4.13 | 3.86 - 5.7 | EXTERNAL | | | External | | | LAB | | + + + + + + | MCV, | 94 | 81 - 102 | EXTERNAL | | | External | | | LAB | | + + + + + + | RDW, | 14.6 | 11.2 - 16.2 | EXTERNAL | | | External | | | LAB | | + + + + + + + +---------+ + + | Performing | Address | City/State/Zipcode | Phone Number | | Organization | | | | + +---------+ + + | EXTERNAL LAB | | | | + +---------+ + + External Lab: Triglycerides (11/10/2019) + +-------+ + + + | Component | Value | Ref Range | Performed | Pathologist | | | | | At | Signature | + +-------+ + + + | Triglycerid | 111 | 51 - 152 | EXTERNAL | | | es, | | | LAB | | | External | | | | | + +-------+ + + + + + | Specimen | + + | Blood | + + + +---------+ + + | Performing | Address | City/State/Zipcode | Phone Number | | Organization | | | | + +---------+ + + | EXTERNAL LAB | | | | + +---------+ + + External Lab: Cholesterol, HDL (11/10/2019) + +-------+ + + + | Component | Value | Ref Range | Performed | Pathologist | | | | | At | Signature | + +-------+ + + + | HDL | 56 | 35 - 80 mg/dl | EXTERNAL | | | Cholesterol | | | LAB | | | , External | | | | | + +-------+ + + + + + | Specimen | + + | Blood | + + + +---------+ + + | Performing | Address | City/State/Zipcode | Phone Number | | Organization | | | | + +---------+ + + | EXTERNAL LAB | | | | + +---------+ + + External Lab: Cholesterol, Total (11/10/2019) + +-------+ + + + | Component | Value | Ref Range | Performed | Pathologist | | | | | At | Signature | + +-------+ + + + | Cholesterol | 141 | 50 - 200 mg/dl | EXTERNAL | | | , Total, | | | LAB | | | External | | | | | + +-------+ + + + + + | Specimen | + + | Blood | + + + +---------+ + + | Performing | Address | City/State/Zipcode | Phone Number | | Organization | | | | + +---------+ + + | EXTERNAL LAB | | | | + +---------+ + + External Lab: eGFR (11/10/2019) + +-------+ + + + | Component | Value | Ref Range | Performed | Pathologist | | | | | At | Signature | + +-------+ + + + | eGFR, | 85 | | EXTERNAL | | | External | | | LAB | | + +-------+ + + + + + | Specimen | + + | Blood | + + + +---------+ + + | Performing | Address | City/State/Zipcode | Phone Number | | Organization | | | | + +---------+ + + | EXTERNAL LAB | | | | + +---------+ + + External Lab: Creatinine (11/10/2019) + +-------+ + + + | Component | Value | Ref Range | Performed | Pathologist | | | | | At | Signature | + +-------+ + + + | Creatinine, | 1.4 | 0.8 - 1.5 | EXTERNAL | | | External | | | LAB | | + +-------+ + + + [...]
--- OUTSIDE RECORDS SUMMARY | ~2020-05-18 | XMS | Encounter Summary ---
Demographics + + + | Address | [address] | | | [place] [address] | + + + | Home Phone | | + + + | Preferred Language | Unknown | + + + | Marital Status | | + + + | Jainism Affiliation | [id number] | + + + | Race | Unknown | + + + | Ethnic Group | Unknown | + + + Author + + + | Author | [facility] | | | and [place] | + + + | Organization | [facility] | | | [...] Team Providers + +------+ + | Care Bench Assembler Battery Name | Role | Phone | + [...] + + | 05/07/ | Hospital | [facility] | Raphael Karimi, | Gastrointestinal | | 2017 - | Encounter | MED CTR ICU [address] | hemorrhage, | | | | [place], | [place], [place] | unspecified | | 05/16/ | | [place] [address] | [id number] | gastrointestinal | | 2017 | | [phone] | | hemorrhage type | | | | | Yodit Philippe MD | (Primary Dx); Atrial | | | | | [address] | fibrillation with | | | | | [place], [place] | RVR ([facility]); Acute on | | | | | [address] [address], | chronic diastolic | | | | | MD Susan [address] | (congestive) heart | | | | | [address] [place] | failure ([facility]); 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 1935 Admit date: 05/07/2017 Discharge [...] significantly so this was dis continued. The revenue cycle analyst recommended putting in a permanent pacemaker and [...] Care Everywhere.Pacemaker Impla ntation, Discharge Instructions for (Spanish)documented in this encounter Medications at Time of [...] Philippe MD - 06/04/2017 8:18 PM PDT [facility] Patient: Jacklyn Siddiqi : 1935: Age: 81 y.o. MedRec: [id number] PCP: Antonio Paulino MD Admission date: 05/07/2017 [...] as outlined above. Yodit Philippe 06/04/2017 20:18 [facility] Shawn Lewis, [facility] Field Observer - 05/16/2017 9:29 AM PDTFormatting of this [...] am: INR 4. 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 5. Pharmacist to follow daily Warfarin Dosing Nomogram Warfarin Dosing Expectations Per P&T-approved Electronically signed by: Shawn Mercedes, Orthodontic Laboratory Technician 05/16/2017 9:29 Michael Giang MD - 05/16/2017 [...] DOPamine Stopped (05/12/17 0745) norepinephrine Stopped (05/11/17 0095) OBJECTIVE: PHYSICAL EXAM Latest VS: BP 121/41 [...] He is in a class IIo f Morrison Heart Association functional class. There is mild [...] made to ensure accuracy; however, inadvertent computerized oracle technical developer errors may be pre sent. Electronically signed by: Cruzito Bird MD 05/16/2017 7:18 Susan Diaz MD - 05/15/2017 7:43 PM PDT [facility] Patient: Jacklyn Siddiqi : 1935: Age: 81 y.o. MedRec: [id number] PCP: Antonio Paulino MD Admission date: 05/07/2017 [...] ou tlined above. Susan Vides 05/15/2017 19:43 [facility] Jessica Rivas PharmD - 05/15/2017 7:41 AM [...] am: INR 4. 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 5. Pharmacist to follow daily Warfarin [...] Sinus rhythm Confirmed by BINU MACK MD ([id number]) on 05/15/2017 5:56:04 AM ECG 12 lead [...] Sinus rhythm Confirmed by BINU MACK MD ([id number]) on 05/15/2017 5:57:23 AM CBC no Differential [...] He is in a class IIo f Morrison Heart Association functional class. There is mild [...] made to ensure accuracy; however, inadvertent computerized oracle technical developer errors may be pre sent. Electronically signed by: Cruzito Bird MD 05/15/2017 6:36 Susan Diaz MD - 05/14/2017 8:48 PM PDT [facility] Patient: Jacklyn Siddiqi : 1935: Age: 81 y.o. MedRec: [id number] PCP: Antonio Paulino MD Admission date: 05/07/2017 [...] ou tlined above. Susan Vides 05/14/2017 20:48 [facility] Jessica Rivas PharmD - 05/14/2017 4:08 PM [...] am: INR 4. 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 5. Pharmacist to follow daily Warfarin [...] treatment were discussed with the patient in [facility]. The patient decides to proceed with the procedure. 2. Resume Coumadin after procedure today. 3. Start amiodarone oral loading today to treat A. fib with RVR. Portions of this report were transcribed using voice recognition software. Every effort wa s made to ensure accuracy; however, inadvertent computerized oracle technical developer errors may be pre sent. Electronically signed by: Cruzito Bird MD 05/14/2017 6:25 row, Yodit Ramsay MD - 05/13/2017 7:23 AM PDTForm atting of this note might be different from the original. [facility] Patient: Jacklyn Siddiqi : 1935: Age: 81 y.o. MedRec: [id number] PCP: Antonio Paulino MD Admission date: 05/07/2017 [...] has lengthened Confirmed by BINU MACK MD ([id number]) on 05/13/2017 6:24:02 AM Culture, Blood Result [...] arthroplasty changes. Multiple lead wires overlie the vikrc-bt-ryzs. Overall unchanged aeration of the lungs with [...] apnea) Patient was tested (positive) at the [facility], w as provided with CPAP, slept "all [...] awake and requires oxygen when a sleep. B-DIRECTOR OF GOVERNMENT SALES 488 on arrival. Echo 02/2017 showed EF [...] Pulmonary HTN Mild to severe by echo 9622-7024. Never smoked tobacco and no documente d [...] associated falls, on e occurring at the [facility] the day of admission and one [...] as outlined above. Yodit Philippe 05/13/2017 7:23 [facility] row, Yodit Ramsay MD - 0 05/12/2017 10:27 AM PDT [facility] Patient: Jacklyn Siddiqi : 1935: Age: 81 y.o. MedRec: [id number] PCP: Antonio Paulino MD Admission date: 05/07/2017 [...] arthroplasty changes. Multiple lead wires overlie the onucp-kj-nqds. Overall unchanged aeration of the lungs with [...] as outlined above. Yodit Philippe 05/12/2017 10:27 [facility] row, Yodit Ramsay MD - 0 05/11/2017 2:21 PM PDT [facility] PRO[facility]ESS [facility] Patient: Jacklyn Siddiqi : 1935: Age: 81 y.o. MedRec: [id number] PCP: Antonio Paulino MD Admission date: 05/07/2017 [...] with rate 70-80 on dopamine 5 mcg/min. [place] systolic valve cli ck at [facility]. Respiratory: [...] arthroplasty changes. Multiple lead wires overlie the uklwz-vr-awbi. Overall unchanged aeration of the lungs with [...] intervention to prevent bradyarrhythmias is possi ble. CRUZITO (obstructive sleep apnea) Acute on chronic [...] as outlined above. Yodit Philippe 05/11/2017 14:21 [facility] N - 05/10/2017 7:34 [...] 05/10/2017 7:03 PM PDT HOSPITALIST progress NOTE [facility] 05/10/2017 Rounding Physician: Yodit Philippe MD Patient Name: Jacklyn Siddiqi : 1935 Medical Record: [id number] Primary Hospital Problem: Atrial fibrillation with RVR [...] made to ensure accuracy; however, inadvertent computerized oracle technical developer errors and typos m ay be present Electronically signed by: Yodit Philippe MD, DATE/TIME: 05/10/2017 19:03 [facility] HOSPITALIST TEAM ania Cervantes RN - 05/10/2017 4:33 PM PDTReport to [facility] Patient in bed resting. Yodit Olmos MD - 05/10/2017 3:59 PM PDTForma tting of this note might be different from the original. [facility] Patient: Jacklyn Siddiqi : 1935: Age: 81 y.o. MedRec: [id number] PCP: Antonio Paulino MD Admission date: 05/07/2017 [...] Atrial fibrillation Confirmed by FREDERICK CHARLTON, BINU ([id number]) on 05/10/2017 5:50:22 AM No results found. [...] as outlined above. Yodit Philippe 05/10/2017 15:59 [facility] Tania House RN - 05/10/2017 2:15 PM [...] to commode and one pers on assist. surveillance system monitor shows Sinus Tach with BBB. Patient on RA with sats 100%Electroni cece signed by Tania Cervantes RN at 05/10/2017 12:54 PM PDTCrow, Yodit Ramsay MD - 05/09/2017 8:11 PM PDT [facility] PRO[facility]ESS [facility] Patient: Jacklyn Siddiqi : 1935: Age: 81 y.o. MedRec: [id number] PCP: Antonio Paulino MD Admission date: 05/07/2017 [...] as outlined above. Yodit Philippe 06/04/2017 20:12 [facility] Nancy Perales RN - 0 05/09/2017 1:59 PM PDTEvaluated pt for PICC line, upon review of chart placed midline 4 fren ch in left cephalic. Pt Needing IV access for blood draw and occasional IVP medication.Barbara ctronically signed by Nancy Arechiga RN at 05/09/2017 2:01 PM Yodit Olmos MD - 05/08 8:15 PM PDT [facility] PROGRESS NOTE Patient: Jacklyn Siddiqi : 1935: Age: 81 y.o. MedRec: [id number] PCP: Antonio Paulino MD Admission date: 05/07/2017 [...] as outlined above. Yodit Philippe 06/04/2017 20:15 [facility] Mary Vargas RN - 05/08/2017 2:57 PM [...] and RT notified. O2 2 L via DIRECTOR OF GOVERNMENT SALES applied. O2 sat increased to 91%. Maintained [...] and direction x MAR from SNF facility: [facility] [place] Vaccines up to date? Yes No Unsure [...] performed and electronically signed by Isa Kaufman, Sports Instructor 16:14 Reviewed by: Dolly Rizzo, PharmAsaf 05/07/2017 [...] remove, d/t just being placed today at [place], son r corinna pt does have open [...] thighs.copy of POA paper in ghost chart.Electronically jonhny d by Greta Inman RN at 05/07/2017 9:13 PM PDTdocumented in this encounter H&P Notes Peter Maciel MD - 05/08/2017 10:01 AM PDTPatient interviewed, history and physical, symp toms reviewed VS signs noted, no change from previous H&P or assessment and plan.Electronic ally signed by Peter Maciel MD at 05/08/2017 10:02 AM PDTCrow, Yodit Ramsay MD - 05/07/2017 2:14 PM PDT [facility] HISTORY AND PHYSICAL Pt. Name/Age/: [...] convenience store. Usually receives care at the [place] or nearer his home. He resides in [...] cirrhosis (HCC) 2003 CT scan 2003 at [facility] CAD (coronary artery disease) 2004 Had CABG to LAD (for 80-90% LAD) surgery done at [facility] CVA (cerebral infarction) -2014 lacunar (not stated as new nor old) Dementia Diastolic CHF (HCC) Echo 2013 EF 68, ascites, pulm HTN Endocarditis 2009 Enterococcus 6 weeks Amp + Gent H/O aortic valve replacement 2004 [facility] Rupert AVR INR goal is 2-3, surgery done at [facility] Hypertension Liver cirrhosis (HCC) Over-anticoagulated 04/01/2015 Peripheral vertigo 2013 BPPV left PSA elevation 2009 Pt declined Bx then Pulmonary HTN (HCC) Severe on Echo 2014 Retinal detachment 2011 Venous ulcer 2014 Leg Past Surgical History: Procedure Laterality Date CARDIAC SURGERY 2005 [place] says [address]G [address] [facility] Rupert AVR FAMILY [...] signed by: Yodit Philippe MD 05/07/2017 14:14 [facility] documented in this enc ounter Procedure [...] obtained, the patient was taken to the medical lab assistant. 1 g of cefaz jamel was given [...] pulled through into the pocket. A 6 Chinese sheath was p laced over the guidewire and the core was removed. The additional guidewires were inserted through the sheath. The sheath was then removed. The guidewires were secured by hemostat, leaving one guidewire to be utilized for placement of an 8 Chinese safe sheath. A safe sheat h core [...] same technique as mentioned above, another 8 Chinese safe sheath was utilized to i ntroduce [...] Rupert, model #: PM 2272, serial #: [id number]. B. Atrial lead: [place]. Rupert, length 46 cm, model #: LPA 1200 M, serial #: [id number]. C. Ventricular lead: [place]. Rupert, length 52 cm, model #: LPA 1200M, serial #: [id number]. PACEMAKER TESTING: A. Atrial lead: Sensing 2.4 [...] obstructive sleep apnea. He was admitted to [facility] on 05/07/2017 for Atrial fibrillation with RVR [...] cirrhosis (HCC) 2003 CT scan 2003 at [facility] CAD (coronary artery disease) 2004 Had CABG to LAD (for 80-90% LAD) surgery done at [facility] CVA (cerebral infarction) -2014 lacunar (not stated as new nor old) Dementia Diastolic CHF (HCC) Echo 2013 EF 68, ascites, pulm HTN Endocarditis 2009 Enterococcus 6 weeks Amp + Gent H/O aortic valve replacement 2004 [facility] Rupert AVR INR goal is 2-3, surgery done at [facility] Hypertension Liver cirrhosis (HCC) Over-anticoagulated 04/01/2015 Peripheral [...] with Anesthesia; Surgeon: Peter Maciel MD; Location: [facility] MEDICAL PROCED URE UNIT FAMILY HISTORY [...] Oral Daily IV INFUSIONS: DOPamine Stopped (05/12/17 4518) norepinephrine Stopped (05/11/17 9251) ALLERGIES Allergies Allergen Reactions Latex Rash REVIEW [...] has lengthened Confirmed by FREDERICK CHARLTON, BINU ([id number]) on 05/13/2017 6:24:02 AM Culture, Blood Collection [...] He is in a class II of Morrison Heart Association functional class. There is fluid [...] patient. Electronically signed by: Cruzito Bird MD [facility] 05/13/2017 7:03 Portions of this chart may have been created with CinemaKi voice recognition software. Occasi onal wrong-word or sound-alike substitutions may have occurred due to the inherent carter itations of voice recognition software. Please read the chart carefully and recognize, using context, where these substitutions have occurred. Amelie Alvarez RN - 05/08/2017 11:53 AM PDTAssociated O rder(s): IP CONSULT TO WOUND OSTOMY NURSEJosefina Siddiqi is a [facility] who [facility], that has the Coban 2 placed every /Sat which were just placed yesterday . Per the patient he has two ulcerations to the left LE POA. His son and him do not want the wraps removed until SaturdayMay 10 please. OT and Nursing to document wound/ulcers at that session. Have requested [place] medical records as well to have in the paper chart. Amelie Pack RN [facility] Ext [phone] docume nted in this encounter ED Notes [...] cirrhosis (HCC) 2003 CT scan 2003 at [facility] CAD (coronary artery disease) 2004 Had CABG to LAD (for 80-90% LAD) surgery done at [facility] CVA (cerebral infarction) -2014 lacunar (not stated as new nor old) Dementia Diastolic CHF (HCC) Echo 2013 EF 68, ascites, pulm HTN Endocarditis 2009 Enterococcus 6 weeks Amp + Gent H/O aortic valve replacement 2004 St Rupert AVR INR goal is 2-3, surgery done at [facility] Hypertension Liver cirrhosis (HCC) Over-anticoagulated 04/01/2015 Peripheral [...] UA, POC Negative Negative, 100 mg/dL Specific [place], UA, POC 1.025 1.001 - 1.030 Blood, [...] Kwok MD - 05/16/2017 2:20 PM PDT LONG-TERM FACILITY TRANSFER ORDERS Patient Name: Jacklyn Siddiqi Patient : 1935 Gender: male Date of Admission: 05/07/2017 Date of Discharge: 05/16/2017 Admitting Provider: Yodit Philippe MD Discharging Provider: Susan Vides MD Consultants: Dr Nettles PCP: Antonio Paulino [facility] transferring to: [facility] Provider after transfer: CODE STATUS: [x] Attempt CPR [] Do not resuscitate If patient is pulseless and not breathing, RN/AIR CONDITIONING EQUIPMENT MECHANIC may pronounce . Advanced Directives included: [] [...] Reactions Latex Rash Diet: [x] As tolerated LOCAL SUPERINTENDENT may upgrade or downgrade diet as condition [...] Whole [] Thin Liquids [] Cut-up [] [place] Thick [] Advanced Chopped [] Honey Thickened [] Chopped [] Advanced Ground [] 1:1 feedings [] Ground/Pureed [] Other: Tube Feedings: [] PEG [] GT [] JT [] NGT [] Formula type: (Supervisor Assembly may change/substitute if indicated). [] Continuous Rate: [...] & Management for: restrict ed limb [] LOCAL SUPERINTENDENT Evaluation &Management for: [] Other: Wound/Skin Care: [...] unless otherwise specified by physician. Please write "RNADA" (Dispense as written) if a medi cation [...] Susan SAWYER MD, certify that [facility] [place] [facility] care is medically nece ssary on a continuing basis for any of the conditions for which he/she received care during this hospitalization. Check one: [x] Skilled [] Intermediate Additional Orders/Instructions Physician's signature: Susan Jarvis MD05/16/2017 14:20 [facility] NURSING [facility]AC[facility] USE ONLY: [] Admitting [...] Therapy Discharge Recommendations are: Recommended discharge [facility]: [place] [facility] Post discharge physical therapy recommendation: will [...] for assist for safety Bed-Chair, Level of [place]: contact guard assist, set up required, verbal cues requir ed Chair-Bed, Level of [place]: contact guard assist, set up required, verbal cues requir ed Sso-Oybhj-Hbl, Assistive Device: 2 wheeled walker (FWW) Sit-Stand, Level of [place]: contact guard assist, verbal cues required Stand-Sit, Level of [place]: contact guard assist, verbal cues required Itl-Rvhkd-Kht, Assistive Device: 2 wheeled walker (FWW) Safety Issues: weight-shifting ability decreased Impairments: pain, strength decreased Bed Mobility increased time and need for frequent redirection Assistive Device: bed rails Supine to Sit, Level of [place]: contact guard assist Sit to Supine, Level of [place]: (NT, pt left sitting in bedside chair) [...] STG Status continued at 05/16/2017 1155 STG [place] Level modified independent, supervised at 05/09/2017 1700 [...] Improving This CM spoke with Elkin at [facility] this AM and she is ready to accept patient when he is medically stable and will arrange transport there for patient. She confirmed yahaira t they also have OT there to do his leg wraps. Efaxed the MD prog notes, PT OT notes, and med list to her. TN# [id number]. Manually faxed the completed PASRR to SNF. Pkt started and placed in ghost chart. Electronically signed by: Ana Dietrich RN 05/16/2017 10:27 11:14 Left message with Elkin, at [facility], letting her know that patient will be d ischarged today and would be ready this afternoon sometime. Requested a return call with pic k up time. Elkin returned call with 1430 hand picker time. Let bedside RN know. Left message with Jr Jacklyn, letting him know that his dad will be taken to the SNF today. Pkt completed with original completed PASRR, AVS, and Trazadone script. Given to stock car driver. Fa xed SNF transfer orders to [facility] with call to Elkin.Electronically signed by: Sangita [...] liter/minute, BS expiratory wheezes/fine crackles. lan of [facility] Nanda gandara RN - 05/16/2017 5:04 AM [...] assist with ambulation and transfers. lan of [facility] - Rob Dietrich RN - 05/15/2017 5:55 PM PDTProblem: Discharge Planning Goal: Patient will be discharged in a safe manner Outcome: Improving This CM met with patient's son, Jacklyn Joiner, today. Kelly from the [facility]s Home, p# [phone], faxed the paperwork to Jacklyn Kelly' email [...] afternoon and let him know that the [facility] would only be a short term rehab not termite control representative stay and that he would have to pay for the transpor t there, since he is non-service connected, per SAMEER [place], whom this called to confirm this above information. Jacklyn Joiner stated that his father will not go back to [facility], so reassured him yahaira t the party planner at [facility] would help find a termite control representative place for him since he will need [...] for activity tolerance and pregait activity. Mary casitllo ornbasil during session with c/o of nursing [...] Therapy Discharge Recommendations are: Recommended discharge disposition: [place] [facility] Post discharge physical therapy recommendation: will [...] and attending to task Bed-Chair, Level of [place]: contact guard assist, set up required, verbal cues requir ed Chair-Bed, Level of [place]: contact guard assist, set up required, verbal cues requir ed Ddc-Wlcml-Iyu, Assistive Device: 2 wheeled walker (FWW) Sit-Stand, Level of [place]: contact guard assist, verbal cues required Stand-Sit, Level of [place]: contact guard assist, verbal cues required Fya-Sdbzs-Lpn, Assistive Device: 2 wheeled walker (FWW) Safety Issues: weight-shifting ability decreased Impairments: pain, strength decreased Bed Mobility increased time and need for frequent redirection Assistive Device: bed rails Supine to Sit, Level of [place]: contact guard assist Sit to Supine, Level of [place]: (NT, pt left sitting in bedside chair) [...] STG Status continued at 05/15/2017 1315 STG [place] Level modified independent, supervised at 05/09/2017 1700 [...] forward to go to a rehab facil [facility] in the future. lan of Care - Maria Antonia Bullard, TRUCK CATERER - 05/15/2017 8:43 AM PDTProblem: Patient Care [...] his discharge plan. Let him know that [facility] has accepted him and he was [...] he did not even know that his [facility] er was in the hospital again. This CM was trying to get some help as to where patient was going to go after his rehab, si cte patient stated that his other son, Jacklyn Siddiqi Jr, is currently moving out all his belo ngings out of [facility] in [place], since he is too high level of [...] [facility] bed for him. Let patient know that this will have to be done in the AM since they are already closed today. CM will need to call the [facility] in AM to see if patient is eligible for transfer to the [facility].Electronically signed by: Ana Dietrich RN 05/14/2017 18:04 lan of Care - Aleah, Erika Joya TRUCK CATERER - 05/14/2017 5:40 PM PDTProblem: Patient Care [...] expiratory phase . Requires 2 lpm at [facility] lan of Care - Emily Price RN [...] Therapy Discharge Recommendations are: Recommended discharge disposition: [place] [facility] Post discharge physical therapy recommendation: will [...] treatment from his children Bed-Chair, Level of [place]: contact guard assist, set up required, verbal cues requir ed Rub-Xqryh-Whl, Assistive Device: 2 wheeled walker (FWW) Sit-Stand, Level of [place]: contact guard assist, verbal cues required Stand-Sit, Level of [place]: contact guard assist, verbal cues required Qer-Ppiwv-Ajw, Assistive Device: 2 wheeled walker (FWW) Safety Issues: weight-shifting ability decreased Impairments: pain, strength decreased Bed Mobility increased time and need for frequent redirection Assistive Device: bed rails Supine to Sit, Level of [place]: contact guard assist Sit to Supine, Level of Bill[place]: (NT, pt left sitting in bedside chair) [...] STG Status continued at 05/14/2017 1600 STG [place] Level modified independent, supervised at 05/09/2017 1700 STG Assistive Device 2 wheeled walker (FWW) at 05/09/2017 1700 [facility] Distance (feet) 50 at 05/09/2017 1700 Electronically [...] re questing to use commode. OT and MILL WORKER assisted patient with functional t/f and limited [...] bed rails Supine to Sit, Level of [place]: contact guard assist Sit to Supine, Level of [place]: contact guard assist Transfers Sit-Stand, Level of [place]: stand by assist, contact guard assist Stand-Sit, Level of [place]: stand by assist, contact guard assist Uso-Xxybb-Cee, Assistive Device: 2 wheeled walker (FWW) Toilet, Level of [place]: contact guard assist, stand by assist Toilet, Assistive Device: 2 wheeled walker (FWW) Impairments: pain, strength decreased OT Goal Review Date Flowsheet Row Most Recent Value STG Review Date 05/16/17 at 05/09/2017 1604 LB Dressing Goal Flowsheet Row Most Recent Value STG Status new at 05/14/2017 1045 STG Billings Level modified independent at 05/14/2017 1045 Toilet Transfer Goal Flowsheet Row Most Recent Value STG Status new at 05/14/2017 1045 STG Billings Level supervised at 05/14/2017 1045 STG Assistive [...] Spiritual Evaluation: Patient is a "Bible Believing Sabianism" loves to pray and read the "Word." Spiritual Intervention: Listened to the patient's concerns about the upcoming procedure. Active Listening, past oral presence, and prayer was offered. Spiritual Outcomes: Patient appreciates chucking and boring machine operator's prayer, seems less apprehensive. Spiritual Goals / Follow-up: Will see the patient as requested. If there are any other spiritual care issues that arise, please contact chucking and boring machine operator. lan of Care - Kristina Ayers, TRUCK CATERER - 05/13/2017 3:57 PM PDTProblem: Patient Care [...] Therapy Discharge Recommendations are: Re[facility] discharge [facility] Post discharge physical therapy recommendation: will benefit from structured setting, ongo ing low intensity therapy Equipment Recommendations: 2 wheeled walker (FWW) Planned Interventions: balance training, gait training, strengthening Recommended Frequency: daily Patient Status/Goals: Reflects last filed data and may be from multiple contributors. Gait side-stepping at bedside Level of Billings: 2 person assist required Assistive Device: 2 wheeled walker (FWW) Transfers pt weak and with dizziness, need for CGA for safety due to symptoms Sit-Stand, Level of Billings: stand by assist, contact guard assist Stand-Sit, Level of Billings: stand by assist, contact guard assist Tnj-Mhqas-Yvv, Assistive Device: 2 wheeled walker (FWW) Safety Issues: weight-shifting ability decreased Impairments: pain, strength decreased Bed Mobility increased time d/t fatigue Assistive Device: none Supine to Sit, Level of Billings: contact guard assist Sit to Supine, Level of Billings: contact guard assist Functional Endurance impaired - SOB with limited activity [facility] Turning over in bed: a [...] steps with a railing: dependent/unable TOTAL - [facility] : 14 Unable / dependent = 1 A lot / modA = 2 A little / Guillermo = 3 None / independent = 4 Completed the [facility] Activity Measure for Post Acute Care (-PAC) "6 Clicks" [facility] Mobility Inpatient Short Form. This version [...] STG Status continued at 05/12/2017 1203 STG Billings Level modified independent, supervised at 05/09/2017 1700 STG Assistive Device 2 wheeled walker (FWW) at 05/09/2017 1700 STG Distance (feet) 50 at 05/09/2017 1700 Electronically signed by: Velia Gerard, PT, 05/13/2017 13:50 lan of Reena - Ana Villeda i, RN - 05/13/2017 12:57 PM PDTProblem: Discharge Planning Goal: Patient will be discharged in a safe manner Outcome: Improving This CM called Elkin at [facility], p# [phone], and she confirmed that she has a [...] appropriately. lan of Care - Sumeet Burr, TRUCK CATERER - 05/13/2017 4:47 AM PDTProblem: Patient Care [...] sleeping. lan of Care - Javier Arana, MANAGER SERVICING - 05/12/2017 11:50 AM PDT Problem: Patient [...] unable to step in place Level of Billings: 2 person assist required Assistive Device: 2 wheeled walker (FWW) Distance (feet): 15, 15 Transfers pt very weak with low BP, CGA to Min Assist for sit<>stand Sit-Stand, Level of Billings: stand by assist, contact guard assist Stand-Sit, Level of Billings: stand by assist, contact guard assist Tqx-Vjtbs-Doy, Assistive Device: 2 wheeled walker (FWW) Safety Issues: weight-shifting ability decreased Impairments: pain, strength decreased Bed Mobility NT; pt up in chair on arrival requested to stay up in chair post tx Assistive Device: none Supine to Sit, Level of Billings: independent Sit to Supine, Level of Billings: independent Therapeutic Exercise pt c/o of pain [...] STG Status continued at 05/12/2017 1203 STG Billings Level modified independent, supervised at 05/09/2017 1700 [...] urine an hour. lan of Care - [facility] amina Nataly Mccormick, TRUCK CATERER - 05/12/2017 12:36 AM PDTProblem: Patient Care [...] tare. lan of Care - Donato Mcqueen, TRUCK CATERER - 05/11/2017 4:33 PM PDTProblem: Patient Care [...] due to fear of falling Level of Billings: 2 person assist required Assistive Device: 2 wheeled walker (FWW) Distance (feet): 15, 15 Stairs unable Bed Mobility Assistive Device: none Supine to Sit, Level of Billings: independent Sit to Supine, Level of Billings: independent Therapeutic Exercise Seated exercises: bilateral, long [...] STG Status new at 05/09/2017 170 STG Billings Level modified independent, supervised at 05/09/20171699 STG [...] non adherent drsg. lan of Sudhakar Dahl, TRUCK CATERER - 0 05/10/2017 4:23 AM PDTProblem: Patient [...] [facility] [place] [facility] [place] I faxed a referral to both facili [...] due to fear of falling Level of Billings: 2 person assist required Assistive Device: 2 wheeled walker (FWW) Distance (feet): 15, 15 Stairs NT Bed Mobility Assistive Device: none Supine to Sit, Level of Billings: independent Sit to Supine, Level of Billings: independent Balance ongoing assessment needed Therapeutic Exercise [...] STG Status new at 05/09/2017 1700 STG Billings Level modified independent, supervised at 05/09/2017 1700 [...] Joanna Manning RN - 05/09/2017 6:30 AM [id number] (late entry) pt has [facility], HR 102-110, BBB, occasional [...] was contacted and he was transferred to [place] at 1136. At about 1445 his HR [...] in a safe manner Outcome: Improving This case management social worker spoke with patient's POA and son Jacklyn Siddiqi regarding patient's discharg e plan. Son states that he now lives at [facility]. He was living at [facility] prior to [facility]. He has been living at [facility] about a month. Son states [...] they do go on daily walks around [facility]. Son states that he would appreciate case management to follow up with the RN at [facility] as well with him in coordinating a discharge back there. Son states that he is his transp ortation and will transport him back when stable. [phone]. Rhianna states that there has been a [...] a time to come assess patient. If [facility] will not accept this patient back to [...] PM PDTPt's Telemetry reading HR 150's-200. This CATCHER FILTER TIP we nt over to assess pt. Who was lying in bed talking on the phone with a family member. He den ies chest pain, SOB and/or a fluttering feeling in his chest. SBP 108/58. Pt.'s RN is at [facility]. EKG ordered and Dr. Philippe contacted about elevated HR concerns. Pt. To be transferred over to the ICU for closer monitoring. Electronically signed by Mary Cantu RN at 04/20 2:07 PM PDTD-C Instructions Provation - Peter Maciel MD - 05/08/2017 9:20 AM PDT Discharge Instructions for Upper Endoscopy Patient: Jacklyn Siddiqi : 1935 Acct: [id number] Exam Date: Monday, May 08, 2017 Doctor: Peter Maciel MD The chances of difficulty following this [...] If unable to reach your physician, call [facility] at Ext. 2500 Your doctor [...] 11:10 AM PDTPt had been at the [place] this am and was heading back home [...] Dx); | | | | | [place] [address] | Pacemaker Dual | | | | | [phone] | Chamber, MRI | | | | [...] [place] | | | | | | [address] | | | | | | | [...] | | | ?MRN: | | | [id number] | | | [id number] | | | his | | | [...] | | | ent/cd | | | [id number] | | | [id number] | | | [...] | | | St. | | | [place] | | | y H. | | [...] | | | St. | | | [place] | | | y H. | | [...] | | | St. | | | [place] | | | y H. | | [...] | | | St. | | | [place] | | | y | | | [...] [address] | [place] | [phone] | | [facility] | | [address] | | | - LABORATORY | | [...] [address] | [place] | [phone] | | [facility] | | [address] | | | - LABORATORY | | [...] + + + + | eGFR, | 58 (L)Comment: | >=60 | [facility] | | | non- | GLOMERULAR FILTRATION | mL/min/1.73m2 | [facility] | | | Algerian | RATE,ESTIMATED | | MEDICAL | | | | mL/min/1.49w0Fane than | | CENTER - | | [...] + | [facility] | [address] | [place] | [phone] | | [facility] | | [address] | | | - LABORATORY | | [...] [address] | [place] | [phone] | | [facility] | | [address] | | | - LABORATORY | | [...] | | | | BINU MACK MD ([id number]) | | | | | | on [...] | | | | BINU MACK MD ([id number]) | | | | | | on [...] was | | | taken to the medical lab assistant. 1 g of cefazolin was given intravenously. | | | Patient was hooked up to EKG, pulse oximetry and blood pressure | | | monitoring. All parameters were kept stable during procedure. The | | | [employer]pert pacemaker primary care sales representative was present in the operating [...] the | | | pocket. A 6 Chinese sheath was placed over the guidewire and the core | | | was removed. The additional guidewires were inserted through the | | | sheath. The sheath was then removed. The guidewires were secured | | | by hemostat, leaving one guidewire to be utilized for placement of an | | | 8 Chinese safe sheath. A safe sheath core and [...] same technique as mentioned above, another 8 Chinese safe sheath | | | was utilized [...] #: LPA 1200 M, serial #: [id number]. C. | | | Ventricular lead: [employer], length 52 cm, model #: LPA 1200M, serial | | | #: [id number]. PACEMAKER TESTING: A. Atrial lead: Sensing 2.4 [...] #: PM 2272, serial #: | | |[id number]. | | | | | |B. Atrial lead: [employer], length 46 cm, model #: LPA 1200 M, | | |serial #: [id number]. | | | | | |C. Ventricular lead: [employer] [place], length 52 cm, model #: LPA 1200M, | | |serial #: [id number]. | | | | | |PACEMAKER TESTING: [...] 1935: AGE: 81 y.o. PRIMARY | | CARE:PASTORA BossON:Cruzito Bird MD DATE OF PROCEDURE: 05/14/2017 | | PROCEDURES PERFORMED:1. Utilization of contrast agent for left subclavian venography.2. | | Dual chamber [employer] Rupert permanent pacemaker implantation.INDICATIONS: 1. 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 | | 1 g of cefazolin was given intravenously. Patient was hooked up to EKG, pulse oximetry | | and blood pressure monitoring. All parameters were kept stable during procedure. The | | [employer] pacemaker primary care sales representative was present in the operating [...] into the pocket. A 6 | | Chinese sheath was placed over the guidewire and the core was removed. The additional | | guidewires were inserted through the sheath. The sheath was then removed. The | | guidewires were secured by hemostat, leaving one guidewire to be utilized for placement | | of an 8 Chinese safe sheath. A safe sheath core and [...] as mentioned | | above, another 8 Chinese safe sheath was utilized to introduce an [...] Rupert, model #: PM 2272, serial #: [id number].B. | | Atrial lead: [employer] [place], length 46 cm, model #: LPA 1200 M, serial #: [id number].C. | | Ventricular lead: [employer], length 52 cm, model #: LPA 1200M, serial #: [id number] | | [id number].PACEMAKER TESTING: A. Atrial lead: Sensing 2.4 mV, [...] [address] | [place] | [phone] | | [facility] | | [address] | | | - LABORATORY | | [...] | | | | | | Performed: [facility], [address] | | | | | [address], [place] | | | | | | [address] | | | | + + + + + + + + | Specimen | + + | Blood | + + + + + + + | Performing | Address | City/State/Zipcode | Phone Number | | Organization | | | | + + + + + | [facility] | [address] | [place] [address] | [phone] | + + + + + Ferritin [...] [address] | [place] | [phone] | | [facility] | | [address] | | | - LABORATORY | | [...] [address] | [place] | [phone] | | [facility] | | [address] | | | - LABORATORY | | [...] | | | | | | Performed: [facility], [address] | | | | | [address], [place] | | | | | | [address] | | | | + + + + + + + + | Specimen | + + | Blood | + + + + + + + | Performing | Address | City/State/Zipcode | Phone Number | | Organization | | | | + + + + + | [facility] | [address] | [place] [address] | [phone] | + + + + + ECHO [...] Number 457 Patient Number | | | [id number] Date of Study 05/13/2017 Visit Number | | | [id number] Referring Physician | | | CRUZITO BIRD MD Number | | | MARGE FLOR Date of | | | 1935 Director Of Compliance TRELL LEWIS ANTONY Age | | | 81 year(s) Interpreting | | | MARGE FLOR | | | Ordering Machine Operator CRUZITO BIRD MD Gender | | | Male Nurse | | | Stress Public Housing Interviewer Procedure Type of Study TTE procedure: ECHO [...] | 51.23 ml | | | EF Lqusnkimj22% Left Ventricle Diastolic Dimension: 4.23 | | [...] Volume: 51.23 ml | | | EF Nzouistqh52% | | | | | | Left [...] Room Number 457 Patient | | Number [id number] Date of Study 05/13/2017 Visit Number [id number] | | Referring Physician CRUZITO BIRD MD Number | | MARGE FLOR Date of 1935 | | Director Of Compliance TRELL LEWIS RDCS Age 81 year(s) Interpreting | | MARGE FLOR Ordering Machine Operator CRUZITO | | MD MARGE Gender Male [...] LA Volume: 51.23 ml EF | | Bhnkawdey00% Left Ventricle Diastolic Dimension: 4.23 cm Systolic [...] LA Volume: 51.23 ml | | EF Kcushiqwo44% | | | | Left Ventricle | [...] | | | | | | [facility] | | | Neutrophils | | | [...] | Bands | | K/uL | [facility] | | | | [...] ST. | [address] | [place], [place] | [phone] | | [facility] | | [address] | | | - LABORATORY | | [...] + | [facility] | [address] | [place] | [phone] | | [facility] | | [address] | | | - LABORATORY | | [...] mL/min/1.73m2 | [facility] | | | [place] | RATE,ESTIMATED | | MEDICAL | | | | mL/min/1.30w8Wjue than | | CENTER - | | [...] ST. | [address] | [place], [place] | [phone] | | [facility] | | [address] | | | - LABORATORY | | [...] + | [facility] | [address] | [place] | [phone] | | [facility] | | [address] | | | - LABORATORY | | [...] + + + + | eGFR, | 36 (L)Comment: | >=60 | [facility] | | | non- | GLOMERULAR FILTRATION | mL/min/1.73m2 | [facility] | | | [place] | RATE,ESTIMATED | | MEDICAL | | | | mL/min/1.10p3Dela than | | CENTER - | | [...] Ratio | appended report. These | | [facility] | | | | results have been [...] [address] | [place] | [phone] | | [facility] | | [address] | | | - LABORATORY | | [...] + | [facility] | [address] | [place] | [phone] | | [facility] | | [address] | | | - LABORATORY | | [...] [address] | [place] | [phone] | | [facility] | | [address] | | | - LABORATORY | | [...] | | | incubation. | | [facility] | | | [...] + | [facility] | [address] | [place] | [phone] | | [facility] | | [address] | | | - LABORATORY | | [...] block | | | | | | (Mobitz II) with | | | | | [...] | | | | BINU MACK MD ([id number]) | | | | | | on [...] eGFR, | 41 (L)Comment: | >=60 | [facility] | | | non- | GLOMERULAR FILTRATION | mL/min/1.73m2 | [facility] | | | Algerian | RATE,ESTIMATED | | MEDICAL | | | | mL/min/1.81y7Hmfe than | | CENTER - | | [...] ST. | [address] | [place], [place] | [phone] | | [facility] | | [address] | | | - LABORATORY | | [...] [facility] | | | | | | [facility] | | | | | | MEDICAL | | | | | | CENTER - | | | | | | LABORATORY | | + + + + + + | MCV | 91.6 | 83.0 - 101.0 fL | [facility] | | | | | | [facility] [...] + | [facility] | [address] | [place], [place] | [phone] | | [facility] | | [address] | | | - LABORATORY | | [...] arthroplasty changes. Multiple lead wires overlie the kcaex-cw-xaki. | | | Overall unchanged aeration of [...] | | Multiple lead wires overlie the kjxjc-vm-imys. | | | | Overall unchanged aeration [...] | Eosinophils | | K/uL | [facility] | | | | | | MEDICAL | | | | | | CENTER - | | | | | | LABORATORY | | + + + + + + | Absolute | 0.12 (H) | 0.00 - 0.10 | [facility] | | | Basophils | | K/uL | [facility] | | | | | | MEDICAL | | | | | | CENTER - | | | | | | LABORATORY | | + + + + + + | Absolute | 0.25 | 0.00 - 1.50 | [facility] | | | Bands | | K/uL | [facility] | | | | [...] Variant | Moderate (A) | (none) | [facility] | | | Lymphocytes | | | [...] + | [facility] | [address] | [place] | [phone] | | [facility] | | [address] | | | - LABORATORY | | [...] | | | Count | | | [facility] | | [...] [address] | [place] | [phone] | | [facility] | | [address] | | | - LABORATORY | | [...] [address] | [place] | [phone] | | [facility] | | [address] | | | - LABORATORY | | [...] (H) | 7 - 18 mg/dL | [facility] | | | | | | [facility] | | | | | | MEDICAL | | | | | | CENTER - | | | | | | LABORATORY | | + + + + + + | Creatinine | 1.28 | 0.60 - 1.30 | [facility] | | | | | mg/dL | [facility] | | | | | | MEDICAL | | | | | | CENTER - | | | | | | LABORATORY | | + + + + + + | eGFR, | 54 (L)Comment: | >=60 | [facility] | | | non- | GLOMERULAR FILTRATION | mL/min/1.73m2 | [facility] | | | [place] | RATE,ESTIMATED | | MEDICAL | | | | mL/min/1.35o2Diso than | | CENTER - | | [...] + | [facility] | [address] | [place] | [phone] | | [facility] | | [address] | | | - LABORATORY | | | | + + + + + PTT (05/10/2017 8:33 PM PDT) + +--------+ + + + | Component | Value | Ref Range | Performed | Pathologist | | | | | At | Signature | + +--------+ + + + | aPTT | 42 (H) | 22 - 36 seconds | [facility] | | | | | [...] [address] | [place] | [phone] | | [facility] | | [address] | | | - LABORATORY | | [...] + | [facility] | [address] | [place] | [phone] | | [facility] | | [address] | | | - LABORATORY | | [...] | | | | BINU MACK MD ([id number]) | | | | | | on [...] | | | | BINU MACK MD ([id number]) | | | | | | on [...] [address] | [place] | [phone] | | [facility] | | [address] | | | - LABORATORY | | [...] [address] | [place] | [phone] | | [facility] | | [address] | | | - LABORATORY | | [...] ST. | [address] | [place], [place] | [phone] | | [facility] | | [address] | | | - LABORATORY | | [...] non- | GLOMERULAR FILTRATION | mL/min/1.73m2 | [facility] | | | Algerian | RATE,ESTIMATED | | MEDICAL | | | | mL/min/1.23c7Qrqz than | | CENTER - | | [...] NELSON. | [address] | [place] | [phone] | | [facility] | | [address] | | | - LABORATORY | | [...] + | [facility] | [address] | [place] | [phone] | | [facility] | | [address] | | | - LABORATORY | | [...] | | | Oral Anticoagulation | | [facility] | | | | Range: 2.0 [...] [address] | [place] | [phone] | | [facility] | | [address] | | | - LABORATORY | | [...] + | [facility] | [address] | [place] | [phone] | | [facility] | | [address] | | | - LABORATORY | | [...] | | | | BINU MACK MD ([id number]) | | | | | | on [...] | [facility] | | GastroenterologyPatient Name: Jacklyn SiddiqiProcedure Date: 05/08/2017 | PROVATION | | 9:20 AMMRN: [id number] #: [id number] of : | | | 1935dmit Type: InpatientAge: 81Room: [facility] 02Gender: MaleNote | | | Status: FinalizedAttending MD: Peter Maciel , MDProcedure: | | | Upper GI endoscopyIndications: Gastrointestinal | | | bleeding of unknown originProviders: Peter Maciel MD, | | | Malka Dueñas RN, Amelie Cabral | | | Sukumar, Public Housing Interviewer, Miguel Galicia MD | | | (Anesthesia [...] | | | the anesthesiologist and the certified medication technician in the pre-procedure | | | [...] Scope In: 9:35:52 AMScope Out: 9:41:03 AM [facility]. | | | [facility], [address] [place] [address] | | | [phone] | | | - A small amount [...] |Scope Out: 9:41:03 AM | | | [facility]. [facility], [facility] [place] | | | [address] | | + + -+ + +---------+ [...] [address] | [place] | [phone] | | [facility] | | [address] | | | - LABORATORY | | [...] 1.42 (H) | 0.60 - 1.30 | [facility] | | | | | mg/dL | [facility] | | | | | | MEDICAL | | | | | | CENTER - | | | | | | LABORATORY | | + + + + + + | eGFR, | 48 (L)Comment: | >=60 | [facility] | | | non- | GLOMERULAR FILTRATION | mL/min/1.73m2 | [facility] | | | Algerian | RATE,ESTIMATED | | MEDICAL | | | | mL/min/1.10w6Lqoo than | | CENTER - | | [...] + | [facility] | [address] | [place] | [phone] | | [facility] | | [address] | | | - LABORATORY | | [...] | | Cells | | | [facility] | | [...] | | | | | g/dL | . [facility] | | | | | | [...] [address] | [place] | [phone] | | [facility] | | [address] | | | - LABORATORY | | [...] 1.36 (H) | 0.60 - 1.30 | [facility] | | | | | mg/dL | [facility] | | | | | | MEDICAL | | | | | | CENTER - | | | | | | LABORATORY | | + + + + + + | eGFR, | 50 (L)Comment: | >=60 | [facility] | | | non- | GLOMERULAR FILTRATION | mL/min/1.73m2 | [facility] | | | [place] | RATE,ESTIMATED | | MEDICAL | | | | mL/min/1.51s4Svuo than | | CENTER - | | [...] [address] | [place] | [phone] | | [facility] | | [address] | | | - LABORATORY | | | | + + + + + B Type Natriuretic Peptide (05/07/2017 5:24 PM PDT) + +---------+ + + + | Component | Value | Ref Range | Performed | Pathologist | | | | | At | Signature | + +---------+ + + + | BNP | 488 (H) | <100 pg/mL | [facility] | | | | | | [facility]ina [...] [address] | [place] | [phone] | | [facility] | | [address] | | | - LABORATORY | | [...] + | [facility] | [address] | [place] | [phone] | | [facility] | | [address] | | | - LABORATORY | | | | + + + + + Ammonia (05/07/2017 5:24 PM PDT) + +--------+ + + + | Component | Value | Ref Range | Performed | Pathologist | | | | | At | Signature | + +--------+ + + + | Ammonia | <9 (L) | 11 - 35 umol/L | [facility] | | | | | [...] [address] | [place] | [phone] | | [facility] | | [address] | | | - LABORATORY | | | | + + + + + PTT (05/07/2017 5:24 PM PDT) + +-------+ + + + | Component | Value | Ref Range | Performed | Pathologist | | | | | At | Signature | + +-------+ + + + | aPTT | 34 | 22 - 36 seconds | [facility] | | | | | [...] [address] | [place] | [phone] | | [facility] | | [address] | | | - LABORATORY | | [...] | Direct | | mg/dl | [facility] | | | | [...] + | [facility] | [address] | [place] | [phone] | | [facility] [facility] | | [address] | | | - LABORATORY | | [...] | | | | g/dL | ST[facility] LE[facility] | | | | [...] [address] | [place] | [phone] | | [facility] | | [address] | | | - LABORATORY | | [...] - 1.030 | [facility] | | | [place], | | | [facility] | | [...] | | [place], | | | [facility] | | [...] + + | Remark | | | KUMAR | | | | | [...] [address] | [place] | [phone] | | [facility] | | [address] | | | - LABORATORY | | [...] | | | | BINU MACK MD ([id number]) | | | | | | on [...] Dictated and Signed by: Kiel Beltran MD Electronically signed: 05/07/2017 12:13 PM [...] | | | | | | [employer] | | | | | [...] [address] | [place] | [phone] | | [facility] | | [address] | | | - LABORATORY | | [...] + | [facility] | [address] | [place] | [phone] | | [facility] | | [address] | | | - LABORATORY | | [...] eGFR, | 53 (L)Comment: | >=60 | [facility] | | | non- | GLOMERULAR FILTRATION | mL/min/1.73m2 | [facility] | | | [employer] | RATE,ESTIMATED | | MEDICAL | | | | mL/min/1.89h1Rxhi than | | CENTER - | | [...] + | [facility] | [address] | [place] | [phone] | | [facility] | | [address] | | | - LABORATORY | | [...] [address] | [place] | [phone] | | [facility] | | [address] | | | - LABORATORY | | [...] + + | Coronary artery disease involving [place] heart without angina pectoris, unspecified | | [...] PDT | | | | | on Tu05/14/17 at 0300, RT will | | | [...] | | | | | | | Sat05/10/17 at 1430, For 1 dose, | | [...] | | | 1 mg, Intravenous, ONCE, Fri | | 17 6:27 | | | [...] mg 240 mg, Oral, 2 | | 17 8:58 | | | | | TIMES DAILY, First dose on Wed | | AM [...] | | | | First dose on Sat05/09/17 at 2100 | | | | | [...] 8:32 | | | | | on Sat05/08/17 at 2100 | | PM [...] | | & 1600, First dose on Sat | | AM [...] | | | | | modification) on [facility] 05/09/17 at | | | | | [...] | | | | First dose on [facility] 05/08/17 at 1445 | | AM PDT | [...] | MARTHA REYNOLDS: dara | | | mary alice, | | + +---+ | | | [...] | | | 16 mcg/mL infusion Starting Fri | | | 05/10/17 at 1843, For [...] | | | | | | | [facility] 05/07/17 at 1730 | | | | [...] | | | | e 05/07/17 at 1730, For 1 dose | [...] | | | | | modification) on Sat05/09/17 at | | | | | | [...] pharmacy PHARMACY | | | CONSULT, Starting Sat05/14/17 at | | | 1606, What is the goal INR range | | | for this patient? 2-3 | | + +---+ | | | + +---+ documented in this encounter
--- OUTSIDE RECORDS SUMMARY | ~2020-05-18 | XMS | Encounter Summary ---
Demographics + + + | Address | [address] | | | [place] [address] | + + + | Home Phone | | + + + | Preferred Language | Unknown | + + + | Marital Status | | + + + | Druze Affiliation | 1061 | + + + | Race | Unknown | + + + | Ethnic Group | Unknown | + + + Author + + + | Author | [facility] | | | and [place] | + + + | Organization | [facility] | | | [...] Team Providers + +------+ + | Care Medical Staff Director Name | Role | Phone | [...] Monitor | CARDIOLOGY [address] | [address] | Interrogation | | | | [place], | [place], | (Primary Dx); | | | | [place] [address] | [place] [address] | Pacemaker Dual | | | | [phone] | [phone] | Chamber, MRI | | | | [...] Paceart documentation and remote PDF scanned into [employer] for remote interrogation results. Data collected by [...] Dx); | | | | | [place] [address] | Pacemaker Dual | | | | | [phone] | Chamber, MRI | | | | [...] [place] | | | | | | [address] | | | | | | | [...] | documentation and remote PDF scanned into [employer] for remote | | | interrogation results. [...]
--- OUTSIDE RECORDS SUMMARY | ~2020-05-18 | XMS | Encounter Summary ---
Demographics + + + | Address | [address] | | | [place] [address] | + + + | Home Phone | | + + + | Preferred Language | Unknown | + + + | Marital Status | | + + + | Caodaism Affiliation | 1061 | + + + | Race | Unknown | + + + | Ethnic Group | Unknown | + + + Author + + + | Author | [facility] | | | and [place] | + + + | Organization | [facility] | | [...] Team Providers + +------+ + | Care Machine Puller And Laster Name | Role | Phone | + +------+ + | Antonio Paulino MD | PCP | | + +------+ + Encounter Details +--------+ + + + + | Date | Type | Department | Care Team | Description | +--------+ + + + + | 05/18/ | Orders Only | [facility] | Provider, | | | 2018 | | SYSTEM GENERIC OP | [address] | | | | | CONVERSION [address] | [place] | | | | | [address] [place], [place] | [place] [address] | | | | | [address] | | | | | | [phone] | | | +--------+ + + + [...] | 2019 | Monitor | | [address] [facility] | Interrogation | | | | | [place], | (Primary Dx); | | | | | [place] [address] | Pacemaker Dual | | | | | [phone] | Chamber, MRI | | | | [...] [place] | | | | | | [address] | | | | | | | | +--------+ + + + + documented as of this encounter Visit Diagnoses Not on filedocumented in this encounter"
--- OUTSIDE RECORDS SUMMARY | ~2020-05-18 | XMS | Encounter Summary ---
Demographics + + + | Address | [address] | | | [place] [address] | + + + | Home Phone | | + + + | Preferred Language | Unknown | + + + | Marital Status | | + + + | Christianity Affiliation | 1061 | + + + | Race | Unknown | + + + | Ethnic Group | Unknown | + + + Author + + + | Author | [facility] | | | and [place] | + + + | Organization | [facility] | | | [...] | | + + +---------+ + | Chirs Siddiqi | ECON | Unknown | | + + +---------+ + | Cassandra Guthrie | ECON | Unknown | | + + +---------+ + Care Team Providers + +------+ + | Care Curing Press Operator Name | Role | Phone | + +------+ + | Antonio Paulino MD | PCP | | + +------+ + Reason for Visit + +--------+ + | Reason | Onset | Comments | | | Date | | + +--------+ + | Lab Order | 12/17/ | Pt due for labs prior to appt | | | 2018 | | + +--------+ + Encounter Details +--------+ + + + + | Date | Type | Department | Care Team | Description | +--------+ + + + + | 12/17/ | Telephone | [facility] | Cruzito Bird, | Lab Order (Pt due | | 2019 | | CARDIOLOGY [address] | MD [address] | for labs prior to | | | | [place], | [place], | appt ) | | | | [place] [address] | [place] [address] | | | | | [phone] | [phone] | | | | | | | [...] this encounter Miscellaneous Notes Telephone Encounter - Malka Sepulveda - 12/17/2018 3:21 PM PSTPATIENT CALLED BACK AND W ILL DO LAB WORK AT [email or web address] [facility]. elephone Encounter - Genesis Horne RN - 12/17/2018 11:22 AM P Bhanu placed. elephone Encounter - Trinidad Musa, Dependency Director - 12/17/2018 11:15 AM Ra kinsey voicemail is non-descriptive so left a voicemail for them to call us back in regards to their appointment 12/23/18. Patient is due for fasting labs (CBC,LIPID,CMP) prior to their appointment. Orders will be in our system but we can forward them to wherever patient would like to have the labs drawn. Nika in this encounter Plan of Treatment +--------+ + + + + | Date | Type | Specialty | Care Team | Description | +--------+ + + + + | 07/20/ | Implant | Cardiology | Cruzito Bird, | Remote Device | | 2019 | Monitor | | [address] [facility] | Interrogation | | | | | [place], | (Primary Dx); | | | | | [place] [address] | Pacemaker Dual | | | | | [phone] | Chamber, MRI | | | | | | compatible, 05/14/17 | | | | | | [facility]; | | | | | | 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) | +--------+ + + + + | 01/05/ | Office | Cardiology | AbhijitEmely irwin, | | | 2020 | Visit | | AMANDA [address] | | | | | | [place] | | | | | | [address] | | | | | | | | +--------+ + + + + + +------+--------+ + + | Name | Type | Priori | Associated Diagnoses | Order Schedule | | | | ty | | | + +------+--------+ + + | CBC with | Lab | Routin | Pacemaker Dual | 1 Occurrences | | Differential | | e | Chamber, MRI | starting 12/17/2018 | | | | | compatible, 05/14/17 | until 12/17/2019 | | | | | [facility] | | | | | | H/O aortic valve | | | | | | replacement | | | | | | Essential | | | | | | hypertension | | | | | | Coronary artery | | | | | | disease involving | | | | | | alatna coronary | | | | | | artery of alatna | | | | | | heart without angina | | | | | | pectoris | | + +------+--------+ + + | Lipid Panel | Lab | Routin | Essential | 1 Occurrences | | | | e | hypertension | starting 12/17/2018 | | | | | Coronary artery | until 12/18/2019 | | | | | disease involving | | | | | | alatna coronary | | | | | | artery of alatna | | | | | | heart without angina | | | | | | pectoris | | + +------+--------+ + + | Comprehensive | Lab | Routin | Pacemaker Dual | 1 Occurrences | | Metabolic Panel | | e | Chamber, MRI | starting 12/17/2018 | | | | | compatible, 05/14/17 | until 12/17/2019 | | | | | [facility] | | | | | | H/O aortic valve | | | | | | replacement | | | | | | Essential | | | | | | hypertension | | | | | | Coronary artery | | | | | | disease involving | | | | | | alat[place] coronary | | | | | | artery of alatna | | | | | | heart without angina | | | | | | pectoris | | + +------+--------+ + + documented as of this encounter Visit Diagnoses + + | Diagnosis | + + | Pacemaker Dual Chamber, MRI compatible, 05/14/17 [facility] - Primary Cardiac | | pacemaker in situ | + + | H/O aortic valve replacement Heart valve replaced by other means | + + | Essential hypertension Unspecified essential hypertension | + + | 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
--- OUTSIDE RECORDS SUMMARY | ~2020-05-18 | XMS | Encounter Summary ---
Demographics + + + | Address | [address] | | | [place] [address] | + + + | Home Phone [...] Team Providers + +------+ + | Care Hoist Operator Name | Role | Phone | + +------+ + | Antonio Paulino MD | PCP | | + +------+ + Encounter Details +--------+ + + + + | Date | Type | Department | Care Team | Description | +--------+ + + + + | 06/04/ | Hospital | [facility] | Emely Gabriel, | Coronary artery | | 2018 | Encounter | MED CTR XRAY [address] | VENDING ROUTE SERVICER [address] | disease involving | | | | [place] | [place], [place] | twenty-nine palms coronary | | | | [place] [address] | [address] | artery of twenty-nine palms | | | | [phone] | | heart without angina | | [...] | | | | | | fibrillation (HCC); | | | | | | Pacemaker | | | | | | reprogramming/check; | | | | | | Pacemaker Dual | | | | | | Chamber, MRI | | | | | | compatible, 05/14/17 | | | | | | [facility]; | | | | | | buttermaker continuous churn current | | | | | | [...] | | | | | | | jennyfer V.A | | | | | + [...] Dx); | | | | | [place] [address] | Pacemaker Dual | | | | | [phone] | Chamber, MRI | | | | | | compatible, 05/14/17 | | | | | | [facility]; | | | | | | 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) | +--------+ + + + + | 01/05/ | Office | Cardiology | Emely Gabriel, | | | 2020 | Visit | | VENDING ROUTE SERVICER [address] | | | | | | [place], [place] | | | | | | [address] | | | | | | | [...] this | | LATERAL | e | 9:59 AM | disease involving | procedure are in the | | | | PDT | twenty-nine palms coronary | results section. | | | | | artery of twenty-nine palms | | | | | | heart [...] Marge | | | | | | buttermaker continuous churn current | | | | | | use of amiodarone | | + +--------+ + + + documented in this encounter Results XR Chest PA and Lateral (06/04/2018 9:59 AM PDT) + + | Specimen | [...] | [place], Rad Results In - 06/04/2018 11:09 AM PDT CLINICAL INFORMATION: amiodarone use. 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
--- OUTSIDE RECORDS SUMMARY | ~2020-05-18 | XMS | Encounter Summary ---
Demographics + + + | Address | [address] | | | [place] [address] | + + + | Home Phone | | + + + | Preferred Language | Unknown | + + + | Marital Status | | + + + | Sikh Affiliation | 1061 | + + + | Race | Unknown | + + + | Ethnic Group | Unknown | + + + Author + + + | Author | [facility] | | | and [place] | + + + | Organization | [facility] | | [...] Team Providers + +------+ + | Care Tape Calender Name | Role | Phone | + +------+ + | Antonio Paulino MD | PCP | | + +------+ + Encounter Details +--------+ + + + + | Date | Type | Department | Care Team | Description | +--------+ + + + + | 04/15/ | Orders Only | [facility] | Benjamín Garces, | | | 2017 | | [facility] [place] | [address] | | | | | [address] | [place], | | | | | [place] | [place] [address] | | | | | [address] | [phone] | | | | | [phone] | | | +--------+ + + + [...] | 2020 | Monitor | | [address] [facility] | Interrogation | | | | | [place], | (Primary Dx); | | | | | [place] [address] | Pacemaker Dual | | | | | [phone] | Chamber, MRI | | | | | | compatible, 05/14/17 | | | | | | [facility]; | | | | | | 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) | +--------+ + + + + | 01/05/ | Office | Cardiology | Emely Gabriel, | | | 2020 | Visit | | VOTING MACHINE MECHANIC [address] | | | | | | [place] | | | | | | [address] | | | | | | | | +--------+ + + + + documented as of this encounter Procedures + +--------+ + + + | Procedure Name | Priori | Date/Time | Associated Diagnosis | Comments | | | ty | | | | + +--------+ + + + | EXTERNAL LAB: CBC | Routin | 04/15/2018 | | Results [...] documented in this encounter Results External Lab: [facility] (04/15/2018 7:22 AM PDT) + + + + + + | Component | Value | Ref Range | Performed | Pathologist | | | | | At | Signature | + + + + + + | WBC | 6.9 | 4.5 - 11.0 10 | EXTERNAL | | | | | | LAB | | + + + + + + | Non- | 3.31 (A) | 4.3 - 5.7 10 | EXTERNAL | | | Red Blood | | | LAB | | | Cells | | | | | | Counted | | | | | + + + + + + | Hemoglobin | 10.3 (A) | 13.5 - 18.0 | EXTERNAL | | | | | g/dL | LAB | | + + + + + + | Hematocrit, | 31.7 (A) | 41 - 50 % | EXTERNAL | | | POC | | | LAB | | + + + + + + | MCV | 95.5 | 81 - 99 fL | EXTERNAL | | | | | | LAB | | + + + + + + | MCH | 31 | 27 - 33 pg | EXTERNAL | | | | | | LAB | | + + + + + + | MCHC | 32 | 30 - 36 g/dL | EXTERNAL | | | | | | LAB | | + + + + + + | Platelet | 176 | 140 - 440 K/ L | EXTERNAL | | | Count | | | LAB | | | Plasma | | | | | + + + + + + | RDW-CV | 14.9 | 10.5 - 15.0 % | EXTERNAL | | | | | | LAB | | + + + + + + | MPV | | fL | EXTERNAL | | | | | | LAB | | + + + + + + | Differentia | | | EXTERNAL | | | l Type | | | LAB | | + + + + + + | % Segmented | 37.7 (A) | 39 - 80 % | EXTERNAL | | | | | | LAB | | | Neutrophils | | | | | + + + + + + | % | 51.2 (A) | 24 - 44 % | EXTERNAL | | | Lymphocytes | | | LAB | | + + + + + + | % Monocytes | 8.2 | 0 - 12 % | EXTERNAL | | | | | | LAB | | + + + + + + | % | 2.4 | 0 - 6 % | EXTERNAL | | | Eosinophils | | | LAB | | + + + + + + | % Basophils | 0.5 | 0 - 2 % | EXTERNAL | | | | | | LAB | | + + + + + + | Absolute | | / L | EXTERNAL | | | Segmented | | | LAB | | | Neutrophils | | | | | + + + + + + | Absolute | | / L | EXTERNAL | | | Lymphocytes | | | LAB | | + + + + + + | Absolute | | / L | EXTERNAL | | | Monocytes | | | LAB | | + + + + + + | Absolute | | / L | EXTERNAL | | | Eosinophils | | | LAB | | + + + + + + | Absolute | | / L | EXTERNAL | | | Basophils | | | LAB | | + + + + + + + + | Specimen | + + | Blood specimen | | (specimen) | + + + +---------+ + + | Performing | Address | City/State/Zipcode | Phone Number | | Organization | | | | + +---------+ + + | EXTERNAL LAB | | | | + +---------+ + + TSH (04/15/2018 7:22 AM PDT) + + + + + + | Component | Value | Ref Range | Performed | Pathologist | | | | | At | Signature | + + + + + + | TSH | 15.48 (A) | 0.270 - 4.20 | EXTERNAL | | | | | uIU/mL | LAB | | + + + + + + + + | Specimen | + + | Blood specimen | | (specimen) | + + + +---------+ + + | Performing | Address | City/State/Zipcode | Phone Number | | Organization | | | | + +---------+ + + | EXTERNAL LAB | | | | + +---------+ + + Magnesium (04/15/2018 7:22 AM PDT) + +-------+ + + + | Component | Value | Ref Range | Performed | Pathologist | | | | | At | Signature | + +-------+ + + + | Magnesium | 2.4 | 1.7 - 2.5 mg/dL | EXTERNAL | | | | | | LAB | | + +-------+ + + + + + | Specimen | + + | Blood specimen | | (specimen) | + + + +---------+ + + | Performing | Address | City/State/Zipcode | Phone Number | | Organization | | | | + +---------+ + + | EXTERNAL LAB | | | | + +---------+ + + Comprehensive Metabolic Panel (04/15/2018 7:22 AM PDT) + + + + + + | Component | Value | Ref Range | Performed | Pathologist | | | | | At | Signature | + + + + + + | Glucose, | 86 | 70 - 100 mg/dL | EXTERNAL | | | Fasting | | | LAB | | + + + + + + | BUN | 29 (A) | 6 - 23 mg/dL | EXTERNAL | | | | | | LAB | | + + + + + + | Creatinine | 1.32 (A) | 0.70 - 1.11 | EXTERNAL | | | | | mg/dL | LAB | | + + + + + + | BUN/Creatin | 22.0 | 6.0 - 28.6 | EXTERNAL | | | ine Ratio | | | LAB | | + + + + + + | Calcium | 8.9 | 8.4 - 10.2 | EXTERNAL | | | | | mg/dL | LAB | | + + + + + + | Protein, | 6.5 | 6.0 - 8.3 g/dL | EXTERNAL | | | Total | | | LAB | | + + + + + + | Albumin | 3.7 | 3.5 - 5.0 | EXTERNAL | | | | | | LAB | | + + + + + + | Globulin | 2.8 | 1.8 - 3.5 | EXTERNAL | | | | | | LAB | | + + + + + + | A/G Ratio | 1.3 | 1.1 - 2.4 | EXTERNAL | | | | | | LAB | | + + + + + + | Bilirubin | 0.5 | 0.0 - 1.2 mg/dL | EXTERNAL | | | Total | | | LAB | | + + + + + + | ALP, | 94 | 31 - 120 | EXTERNAL | | | External | | | LAB | | + + + + + + | ALT | 16 | 7 - 52 U/L | EXTERNAL | | | | | | LAB | | + + + + + + | AST | 32 | 13 - 39 U/L | EXTERNAL | | | | | | LAB | | + + + + + + | Na | 141 | 132 - 143 | EXTERNAL | | | | | mmol/L | LAB | | + + + + + + | K | 5.4 (A) | 3.6 - 5.1 | EXTERNAL | | | | | mmol/L | LAB | | + + + + + + | Cl | 111 | 95 - 112 mmol/L | EXTERNAL | | | | | | LAB | | + + + + + + | CO2 | 21 | 19 - 31 mmol/L | EXTERNAL | | | | | | LAB | | + + + + + + | Anion Gap | 14.4 | 7 - 21 mmol/L | EXTERNAL | | | | | | LAB | | + + + + + + | Estimated | 52 (A) | 60 mg/dL | EXTERNAL | | | GFR | | | LAB | | + + + + + + + + | Specimen | + + | Blood specimen | | (specimen) | + + + +---------+ + + | Performing | Address | City/State/Zipcode | Phone Number | | Organization | | | | + +---------+ + + | EXTERNAL LAB | | | | + +---------+ + + documented in this encounter Visit Diagnoses Not on filedocumented in this encounter"
--- OUTSIDE RECORDS SUMMARY | ~2020-05-18 | XMS | Encounter Summary ---
Demographics + + + | Address | [address] | | | [place] [address] | + + + | Home Phone | | + + + | Preferred Language | Unknown | + + + | Marital Status | | + + + | Anabaptism Affiliation | 1061 | + + + | Race | Unknown | + + + | Ethnic Group | Unknown | + + + Author + + + | Author | [facility] | | | and [place] | + + + | Organization | [facility] | | | [...] Team Providers + +------+ + | Care Ems Coordinator Name | Role | Phone | + [...] | | | | | | ([facility]) | | | | | | | | | | +--------+--------+ + + + + Encounter Details +--------+ + + + + | Date | Type | Department | Care Team | Description | +--------+ + + + + | 02/27/ | Hospital | [facility] | Jose, | Acute renal failure, | | 2017 - | Encounter | MED [facility] | Tristan Truong MD [address] | unspecified acute | | | | [address] [place] | [address] [place] | renal failure type | | 03/04/ | | [place] [address] | [place] [address] | ([facility]) (Primary Dx); | | 2017 | | [phone] | [phone] | Bradycardia; | | | | | | Hyperkalemia; | | | | | Sy Hopkins MD | Elevated INR; | | | | | [address] | Elevated troponin; | | | | | [place] | Pleural effusion, | | | | | [id number] | left | | | | | [...] might be different from the or iginal. [facility] DISCHARGE SUMMARY Pt. Name/Age/: Jacklyn Siddiqi [...] DISCHARGE INSTRUCTIONS: Follow-up Information Follow up with [facility]. Why: appointment at [place] in 7-10 days. Spontaneous voiding trial needs to occur in 7-10 day s Contact information: Tejal Zepedad[address] Room 23 [facility] [address] patient should have voiding trial in 7-10 days (approximately 2 weeks after placement of F oley catheter) Outpatient pro time should be obtained on , 03/07 and then weekly until stable RESULTS: nscription Duane Narrative Transthoracic Echocardiography Report (TTE) Demographics Patient Name AMANDA VILLASENOR Room Number 425 Patient Number [id number] Date of Study 02/28/2017 Visit Number [id number] Referring Physician SANDEEP Nieves Date of 1935 Entrepreneur TRELL LEWIS RDCS Age 81 year(s) Interpreting MARGE FLOR Behavioral Health Director CRUZITO Rossi MD Gender Male Nurse Stress Auto Overhauler Procedure Type of Study TTE procedure: ECHO [...] 40 mL/m^2 LA Volume: 81.33 ml EF Tgsyrobsq37% Left Ventricle Diastolic Dimension: 4.13 cm Septum [...] this 81-year-old male was referred from the [facility] outpatient clinics on the day of assessment for complaints of chest p ain and shortness of breath. At the time of presentation he reportedly been under a lot of anxiety was unhappy with his living situation in [place]. On assessment he was found to h [...] further chest pain then consideration of outpatient [facility] medicine stress testing could be entertained. The [...] signed by: Sy Hopkins MD, 03/04/2017 14:50 [facility] Portions of this chart may have been created with [employer] voice recognition software. Occasi onal wrong-word or [...] Hopkins MD - 03/03/2017 6:59 PM PDT [facility] PMG Hospitalist Progress Note Jacklyn Siddiqi is [...] Intake/Output Summary (Last 24 hours) at 03/03/17 0209 Last data filed at 03/03/17 1800 Gross [...] as outlined above. Sy Hopkins 03/03/2017 18:59 [facility] Portions of this chart may have been created with [employer] voice recognition software. Occasi onal wrong-word or sound-alike substitutions may have occurred due to the inherent carter itations of voice recognition software. Please read the chart carefully and recognize, using context, where these substitutions have occurred arker, Sy Ac MD - 0 03/02/2017 7:39 PM PDT [facility] Hospitalist Progress Note Jacklyn Siddiqi is [...] as outlined above. Sy Hopkins 03/02/2017 19:40 [facility] Portions of this chart may have been created with [employer] voice recognition software. Occasi onal wrong-word or [...] refer her either to himself, or to nm s son Jacklyn. Sy Ibarra MD - 03/01/2017 1:20 PM PDTFormatting of this note might be different from the orig inal. [facility] Hospitalist Progress Note Jacklyn Siddiqi is [...] patient's care as outlined above. Sy Hopkins 03/01/2017 13:20 [facility] Portions of this chart may have been created with [employer] voice recognition software. Occasi onal wrong-word or sound-alike substitutions may have occurred due to the inherent carter itations of voice recognition software. Please read the chart carefully and recognize, using context, where these substitutions have occurred arker, Sy Ac MD - 0 02/28/2017 5:19 PM PDT [facility] Hospitalist Progress Note Jacklyn Siddiqi is [...] as outlined above. Sy Hopkins 02/28/2017 17:19 [facility] Portions of this chart may have been created with [employer] voice recognition software. Occasi onal wrong-word or [...] Doctor's office: [] Pharmacy list names: [] [facility] ELECTRIC SWITCH REPAIRER (Prescription Monitoring Program) [] [employer] insurance reported [...] performed and electronically signed by Jerson Kaufman, Hemmer Chainstitch 2016 17:18 Reviewed by: Dolly Rizzo PHARMD [...] Siddiqi : 1935: Age: 81 y.o. MedRec: [id number] Admission date: 02/27/2017 Hospital day #: Physician author: Sy Hopkins MD HISTORY AND PHYSICAL CHIEF COMPLAINT: For chest pain and shortness of breath when being assessed at the [facility] today. HISTORY OF PRESENT ILLNESS: This is a 81 y.o. male with a history of being referred to the emergency room from the [place] for assessment of chest pain. The patient currently denies chest pain but by report had com plained of some chest discomfort and shortness of breath at the [place] on his assessment. The p atient reported he had been under a lot of stress and anxiety recently because he is unhappy with his living situation in assisted living in [place]. On evaluation here he was found to [...] aortic valve replacement. Medication list from the [place] include furosemide 40 mg twic e daily and metolazone 2.5 mg daily. Our last echocardiogram was in 03/2015 which showed ret ained left ventricular function. His prosthetic aortic valve appeared to be functioning nor servando. 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 After 1 week resume your normal dose [...] signed by: Sy Hopkins MD 02/27/2017 16:43 [facility] Portions of this chart may have been created with [employer] voice recognition software. Occasi onal wrong-word or sound-alike substitutions may have occurred due to the inherent carter itations of voice recognition software. Please read the chart carefully and recognize, using context, where these substitutions have occurred documented in this enc [facility] ED Notes Efe Rosado RN - 02/27/2017 5:23 PM PDTPt to be taken upstairs on monitor with R N, all personal belongings. 5 :24 PM PDTTristan Garcia MD - 02/27/2017 1:17 PM PDTFormatting of this note might b e different from the original. [facility] Jacklyn Siddiqi Emergency Department Encounter Note [address] [place] [address] PCP:No Physician on file [phone] CHIEF COMPLAINT: Chief Complaint Patient presents with Chest Pain ED Room: ED01/ED01 HPI Jacklyn Siddiqi is a 81 y.o. male who presents to the Emergency Department by ambulance from [place] for evaluation. This patient was being seen in the [place] for routine appointment today an d complained [...] INR goal is 2-3, surgery done at [facility] Hypertension Liver cirrhosis (HCC) CVA (cerebral infarction) -2014 lacunar (not stated as new nor old) Dementia Alcoholic cirrhosis (HCC) 2003 CT scan 2003 at [facility] Endocarditis 2009 Enterococcus 6 weeks Amp + Gent PSA elevation 2008 Pt declined Bx then Peripheral vertigo 2012 BPPV left Venous ulcer 2013 Leg Retinal detachment 2010 CAD (coronary artery disease) 2005 Had CABG to LAD (for 80-90% LAD) surgery done at [facility] Pulmonary HTN (HCC) Severe on Echo [...] mg in the evening for 1 w capitan grande band. After 1 week resume your normal dose [...] were reviewed along with EMS notes and penitentiary record s if applicable. (See chart for [...] Portions of this chart were created with [employer] voice recognition software. Inadvertent so und alike [...] She is requesting an order stating that [facility] should administer Jacklyn's medications. Spoke with Dr Hopkins. He reports he will write the order. Order faxed to [facility]. Transmitted ok. Dr Hopkins requests a [facility] follow up appointment in 10 days for catheter removal. His PCP at the [place] is Aleah Smith with [facility] This telegraphic typewriter mechanic called the [facility] spoke with Padmini. She will put f/u appointment request in wit h "[facility]". Electronically signed by: Anamaria Madison 03/04/2017 14:54 Jaren Villasenor is here and will transport. Electronically signed by: Anamaria [place] 03/04/2017 16:27 lan of Care - Adelina Joseph RN - 03/04/2017 1:01 AM PDTProblem: Patient [...] up to chair with SBA lan of [facility] Damaris lindo RN - 03/01/2017 6:53 PM [...] meals. Remains free from falls. lan of [facility] Anamaria arndt - 03/01/2017 10:29 AM PDTDischarge Planning: This BUSINESS CONTINUITY CONSULTANT spoke with Jacklyn's son Jacklyn outside the room today. Son reports his dad does very well @ [facility] [place]. That being sad he complains of not [...] he will transport his father back to [facility] when stable for d ischarge. Electronically signed by: Anamaria [place] 03/01/2017 10:33 Received call from Leanne Engineering Professor @ [facility] [phone]. She had questions about admitting diagnosis and [...] concerned about returning to [facility], it makes him "sick" to think about. Engineering Professor working with patient. Per melissa starkey's permission spoke to one of his daughters and an employee/friend from current SNF info rming of patient's condition. Patient's INR was 5.0 and given vitamin K. lan of Care - Anamaria Nunes Rob - 02/28/2017 3:28 PM PDTDischarge Planning: This BUSINESS CONTINUITY CONSULTANT spoke with Jacklyn at his bedside regarding discharge. Jacklyn is a resident @ [facility] in [place]. Jacklyn uses a cane or power scooter to assist with ambulation. Jacklyn is a non service connected . His PCP is @ [facility]. Message left at the [facility] office regarding admission. This telegraphic typewriter mechanic called and spoke with Exec. Director Jazlyn and [employer]shan [employer]. They report they will accept Jacklyn back [...] child, he takes him to appointments and [email or web address] store etc. 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 | [address] | [place] | [phone] | | [facility] | | [address] | | | - LABORATORY | | [...] mL/min/1.73m2 | [facility] | | | [place] | RATE,ESTIMATED | | MEDICAL | | | | mL/min/1.73k9Anum than | | CENTER - | | [...] ST. | [address] | [place], [place] | [phone] | | [facility] | | [address] | | | - LABORATORY | | [...] [address] | [place] | [phone] | | [facility] | | [address] | | | - LABORATORY | | [...] + | [facility] | [address] | [place] | [phone] | | [facility] | | [address] | | | - LABORATORY | | [...] [address] | [place] | [phone] | | [facility] | | [address] | | | - LABORATORY | | [...] + | [facility] | [address] | [place] | [phone] | | [facility] | | [address] | | | - LABORATORY | | [...] - 1.030 | [facility] | | | [place], | | | [facility] | | [...] ST. | [address] | [place], [place] | [phone] | | [facility] | | [address] | | | - LABORATORY | | [...] [address] | [place] | [phone] | | [facility] | | [address] | | | - LABORATORY | | [...] [address] | [place] | [phone] | | [facility] | | [address] | | | - LABORATORY | | [...] [address] | [place] | [phone] | | [facility] | | [address] | | | - LABORATORY | | [...] 1.63 (H) | 0.60 - 1.30 | [facility] | | | | | mg/dL | [facility] | | | | | | MEDICAL | | | | | | CENTER - | | | | | | LABORATORY | | + + + + + + | eGFR, | 41 (L)Comment: | >=60 | [facility] | | | non- | GLOMERULAR FILTRATION | mL/min/1.73m2 | [facility] | | | [place] | RATE,ESTIMATED | | MEDICAL | | | | mL/min/1.21x3Peue than | | CENTER - | | [...] + | [facility] | [address] | [place] | [phone] | | [facility] | | [address] | | | - LABORATORY | | [...] [address] | [place] | [phone] | | [facility] | | [address] | | | - LABORATORY | | [...] + | [facility] | [address] | [place] | [phone] | | [facility] | | [address] | | | - LABORATORY | | [...] + | [facility] | [address] | [place] | [phone] | | [facility] | | [address] | | | - LABORATORY | | [...] mL/min/1.73m2 | [facility] | | | [place] | RATE,ESTIMATED | | MEDICAL | | | | mL/min/1.03v8Jxzz than | | CENTER - | | [...] ST. | [address] | [place] | [phone] | | [facility] | | [address] | | | - LABORATORY | | [...] [address] | [place] | [phone] | | [facility] | | [address] | | | - LABORATORY | | [...] + | [facility] | [address] | [place] | [phone] | | [facility] | | [address] | | | - LABORATORY | | [...] [address] | [place] | [phone] | | [facility] | | [address] | | | - LABORATORY | | [...] mL/min/1.73m2 | [facility] | | | [place] | | | MEDICAL | | | [...] + | [facility] | [address] | [place] | [phone] | | [facility] | | [address] | | | - LABORATORY | | [...] Demographics Patient Name SIDDIQI | | | [place] Room Number 425 Patient Number | | | [id number] Date of Study 02/28/2017 Visit Number | | | [id number] Referring Physician | | | SANDEEP SANTIAGO E Number Date of 1935 | | | Entrepreneur TRELL LEWIS [facility] Age | | | 81 year(s) Interpreting MARGE FLOR | | | Behavioral Health Director | | | CRUZITO BIRD MD Gender Male Nurse | | | Stress Auto Overhauler | | | Procedure Type of Study [...] Volume: 81.33 ml | | | EF Slhjmntvq27% Left | | | Ventricle Diastolic Dimension: [...] Volume: 81.33 ml | | | EF Fbvtoinwa05% | | | | | | Left [...] Room Number 425 Patient | | Number [id number] Date of Study 02/28/2017 Visit Number [id number] | | Referring Physician SANDEEP Ac Number Date of | | 1935 Entrepreneur TRELL LEWIS RDCS Age 81 year(s) | | Interpreting MARGE FLOR Behavioral Health Director | | CRUZITO BIRD MD Gender Male [...] | | LA Volume: 81.33 ml EF Icihejokh30% | | Left Ventricle Diastolic Dimension: 4.13 [...] LA Volume: 81.33 ml | | EF Eluqbjdvg58% | | | | Left Ventricle | [...] + | [facility] | [address] | [place] | [phone] | | [facility] | | [address] | | | - LABORATORY | | [...] | | | | | | [employer] | | | | | [...] [address] | [place] | [phone] | | [facility] | | [address] | | | - LABORATORY | | [...] + | [facility] | [address] | [place] | [phone] | | [facility] | | [address] | | | - LABORATORY | | [...] | mL/min/1.73m2 | [facility] | | | [place] | RATE,ESTIMATED | | MEDICAL | | | | mL/min/1.66g6Mbgh than | | CENTER - | | [...] + | [facility] | [address] | [place] | [phone] | | [facility] | | [address] | | | - LABORATORY | | [...] + | [facility] | [address] | [place] | [phone] | | [facility] | | [address] | | | - LABORATORY | | [...] ST. | [address] | [place] | [phone] | | [facility] | | [address] | | | - LABORATORY | | [...] | | | | | | [employer] | | | | | [...] [address] | [place] | [phone] | | [facility] | | [address] | | | - LABORATORY | | [...] - 1.030 | [facility] | | | [place], | | | [facility] | | [...] [address] | [place] | [phone] | | [facility] | | [address] | | | - LABORATORY | | [...] [address] | [place] | [phone] | | [facility] | | [address] | | | - LABORATORY | | [...] [address] | [place] | [phone] | | [facility] | | [address] | | | - LABORATORY | | [...] ST. | [address] | [place], [place] | [phone] | | [facility] | | [address] | | | - LABORATORY | | [...] + | [facility] | [address] | [place] | [phone] | | [facility] | | [address] | | | - LABORATORY | | [...] [address] | [place] | [phone] | | [facility] | | [address] | | | - LABORATORY | | [...] | | | | | | [employer] | | | | | [...] [address] | [place] | [phone] | | [facility] | | [address] | | | - LABORATORY | | [...] | Critical Result called | | [facility] | | | | to and read [...] mL/min/1.73m2 | [facility] | | | [place] | RATE,ESTIMATED | | MEDICAL | | | | mL/min/1.94x3Qbqy than | | CENTER - | | [...] [address] | [place] | [phone] | | [facility] | | [address] | | | - LABORATORY | | [...] ST. | [address] | [place], [place] | [phone] | | [facility] | | [address] | | | - LABORATORY | | [...] | | | | | BINU CHARLTON ([id number]) on | | | | | | [...] | | | | | CONTINUOUS, Starting [facility] 02/28/17 | | | | | | [...] | | | | | Oral, ONCE, [facility] 02/28/17 at 0815, | | AM PDT [...]
--- OUTSIDE RECORDS SUMMARY | ~2020-05-18 | XMS | Encounter Summary ---
Demographics + + + | Address | [address] | | | [place] [address] | + + + | Home Phone | | + + + | Preferred Language | Unknown | + + + | Marital Status | | + + + | Samaritan Affiliation | 1061 | + + + | Race | Unknown | + + + | Ethnic Group | Unknown | + + + Author + + + | Author | [facility] | | | and [place] | + + + | Organization | [facility] | | | and [place] | + + + | Address | Unknown | + + + | Phone | Unavailable | + + + Support + + +---------+ + | Name | Relationship | Address | Phone | + + +---------+ + | Johnny Siddiqi Jr. | ECON | Unknown | | + + +---------+ + | Cassandra Benietz | ECON | NA | | | | | NA, | | + + +---------+ + | Rl Siddiqi | ECON | Unknown | | + + +---------+ + | Chris Siddiqi | ECON | Unknown | | + + +---------+ + | Cassandra Guthrie | ECON | Unknown | | + + +---------+ + Care Team Providers + +------+ + | Care It Account Manager Name | Role | Phone | + +------+ + | Antonio Paulino MD | PCP | | + +------+ + Encounter Details +--------+ + + + + | Date | Type | Department | Care Team | Description | +--------+ + + + + | 06/04/ | Hospital | [facility] | Emely Gabriel, | Coronary artery | | 2018 | Encounter | MED CTR XRAY [address] | CARGO STATION WORKER [address] | disease involving | | | | [place] | [address] [place], [place] | rampart coronary | | | | [place] [address] | [address] | artery of rampart | | | | [phone] | | heart without angina | | [...] Bird; | | | | | | ad terminal makeup operator current | | | | | | [...] (Primary Dx); | | | | | [place] [address] | Pacemaker Dual | | | | | [phone] | Chamber, MRI | | | | | | compatible, 05/14/17 | | | | | | [facility]pert[facility] Bird; | | | | | | 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 | | | | | artery of rampart | | | | | | heart [...] Marge | | | | | | ad terminal makeup operator current | | | | | | [...] + + | Coronary artery disease involving rampart coronary artery of rampart heart without | | angina pectoris | [...]
--- OUTSIDE RECORDS SUMMARY | ~2020-05-18 | XMS | Encounter Summary ---
Demographics + + + | Address | [address] | | | [place] [address] | + + + | Home Phone | | + + + | Preferred Language | Unknown | + + + | Marital Status | | + + + | Uatsdin Affiliation | 1061 | + + + | Race | Unknown | + + + | Ethnic Group | Unknown | + + + Author + + + | Author | [facility] | | | and [place] | + + + | Organization | [facility] | | | [...] Providers + +------+ + | Care Manager Of Transportation Name | Role | Phone | + [...] Monitor | CARDIOLOGY [address] | Interrogation | | | | [place], | [place], | (Primary Dx); | | | | [place] [address] | [place] [address] | Pacemaker Dual | | | | [phone] | Chamber, MRI | | | | [...] encounter Procedure Notes Cruzito Bird MD - 01/18/2019 11:59 PM PDTAssociated Order(s): DEVICE INTERROGATION- R EMOTEProcedure(s): DEVICE INTERROGATION- REMOTEPre-Procedure Diagnose(s): Pacemaker reprogra mming/check; Pacemaker; Tachycardia-bradycardia syndrome (HCC)Date of Remote Interrogation: 10/21/18 Refer to [employer] documentation and remote PDF scanned into [facility] for remote interrogation re sults. Data collected by COSTA E ELICEO, RN Presenting rhythm: atrial paced ventricular sensed with rate at 61-100 beats. 0 mode switch episodes accounting for 0% of the time. 0 atrial high rate episodes. 0 ventricular high rate episodes. 44,000 PVC singles 44,000 PVC singles/month 0 PVC runs 0 PVC runs/month Histogram good Battery longevity 10.2-10.5 years. Apparent normal and stable device function. Device interrogation due in office in 06/04/2019 Son notified, he denies symptoms on behalf of patient. documented in this encounter Plan of Treatment +--------+ + + + + | Date | Type | Specialty | Care Team | Description | +--------+ + + + + | 07/20/ | Implant | Cardiology | Cruzito Bird, | Remote Device | | 2019 | Monitor | | [address] [facility] | Interrogation | | | | | [place], | (Primary Dx); | | | | | [place] [address] | Pacemaker Dual | | | | | [phone] | Chamber, MRI | | | | | | compatible, 05/14/17 | | | | | | [facility]; | | | | | | 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) | +--------+ + + + + | 01/05/ | Office | Cardiology | Emely Gabriel, | | | 2020 | Visit | | CARTON WRAPPER [address] | | | | | | St [place], [place] | | | | | | [address] | | | | | | | [...] this encounter Results Device Interrogation - Remote (11/10/2018 12:00 AM PST) + + + | Narrative | Performed At | + + + | Cruzito | KAREN | | MD [place]ge 10/24/2018 13:35Date of Remote Interrogation: 10/21/18 | | | Refer to [employer] documentation and remote PDF scanned into [employer] for | | | remote interrogation results. Data collected by COSTA FENTON RN | | | Presenting rhythm: atrial paced ventricular sensed with rate at 61-100 | | | beats. 0 mode switch episodes accounting for 0% of the time.0 atrial | | | high rate episodes. 0 ventricular high rate episodes. 44,000 PVC | | | singles 44,000 PVC singles/month0 PVC runs 0 PVC | | | runs/monthHistogram good Battery longevity 10.2-10.5 | | | years.Apparent normal and stable device function.Device | | | interrogation due in office in 06/04/2019Son notified, he denies | | | symptoms on behalf of patient. | | [...] + | Cruzito Bird MD - 01/18/2019 11:59 PM PDT Date of Remote Interrogation: | | 10/21/18Refer to [facility] documentation and remote PDF scanned into [employer] for remote | | interrogation results. Data collected by BATSHEVA GROVEresenting rhythm: atrial | | paced ventricular sensed with rate at 61-100 beats. 0 mode switch episodes accounting | | for 0% of the time.0 atrial high rate episodes. 0 ventricular high rate episodes. | | 44,000 PVC singles 44,000 PVC singles/month0 PVC runs 0 PVC | | runs/monthHistogram good Battery longevity 10.2-10.5 years.Apparent normal and | | stable device function.Device interrogation due in office in 06/04/2019Son notified, he | | denies symptoms on behalf of patient. | |0 PVC runs 0 PVC runs/month | |Histogram good Battery longevity 10.2-10.5 years. | |Apparent normal and stable device function. | |Device interrogation due in office in 06/04/2019 | |Son notified, he denies symptoms on behalf of patient. | + + + +---------+ + + | Performing | Address | City[facility] | Phone Number | | Organization | [...]
--- OUTSIDE RECORDS SUMMARY | ~2020-05-18 | XMS | Encounter Summary ---
Demographics + + + | Address | [address] | | | [place] [address] | + + + | Home Phone [...] Team Providers + +------+ + | Care Manometer Technician Name | Role | Phone | + [...] | +--------+ + + + + | 10/14/ | Implant | [facility] | Cruzito Bird, | Remote Device | | 2016 | Monitor | CARDIOLOGY [address] [place] | Interrogation | | | | [place], | [place], | (Primary Dx); | | | | [place] [address] | [place] [address] | Pacemaker Dual | | | | [phone] | Chamber, MRI | | | | [...] encounter Procedure Notes Cruzito Bird MD - 10/14/2017 11:59 PM PSTAssociated Order(s): DEVICE INTERROGATION- R EMOTEProcedure(s): DEVICE INTERROGATION- REMOTEPre-Procedure Diagnose(s): Pacemaker reprogra mming/check; Pacemaker; Tachycardia-bradycardia syndrome (HCC)Refer to [employer] documentation and remote PDF scanned into [employer] for remote interrogation results. Data collected by Nancy Dougherty RN Presenting rhythm: sinus rhythm, atrial paced, ventricular sensed between 64-83 beats. 0 mode switch episodes accounting for 0% of the time. No episodes. PVC singles 600 PVC singles 600/month PVC runs 0 PVC runs 0/month Histogram flat. Battery longevity 10.5 years. Apparent normal and stable device function. [...] Dx); | | | | | [place] [address] | Pacemaker Dual | | | | | [phone] | Chamber, MRI | | | | [...] [place] | | | | | | [address] | | | | | | | | +--------+ + + + + documented as of this encounter Procedures + +--------+ + + + | Procedure Name | Priori | Date/Time | Associated Diagnosis | Comments | | | ty | | | | + +--------+ + + + | DEVICE | Routin | 10/14/2017 | Remote Device | Results for this [...] this encounter Results Device Interrogation - Remote (10/14/2017 11:59 PM PST) + + + | Narrative | Performed At | + + + | Cruzito | PACECAMMY | | MD Marge 12/30/2017 16:45Refer to [employer] documentation and | | | remote PDF scanned into [employer] for remote interrogation results. Data | | | collected by Nancy Dougherty RN Presenting rhythm: sinus rhythm, atrial | | | paced, ventricular sensed between 64-83 beats. 0 mode switch episodes | | | accounting for 0% of the time.No episodes. PVC singles 600 | | | PVC singles 600/monthPVC runs 0 PVC runs | | | 0/monthHistogram flat. Battery longevity 10.5 years.Apparent | | | normal and stable device function.Device interrogation due in office | | | in August 2018. | | |PVC runs 0 PVC runs 0/month | | |Histogram flat. Battery longevity 10.5 years. | | |Apparent normal and stable device function. | | |Device interrogation due in office in August 2018. | | | | | | | [...] Dual Chamber, MRI compatible, 05/14/17 [facility] Cardiac pacemaker | | in situ | + + | 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 | + + | Remote Device Interrogation - Primary Fitting and adjustment of cardiac pacemaker | + + | Pacemaker Dual Chamber, MRI compatible, 05/14/17 [facility] Cardiac pacemaker | | in situ | + + | 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
--- OUTSIDE RECORDS SUMMARY | ~2020-05-18 | XMS | Encounter Summary ---
Demographics + + + | Address | [address] | | | [place] [address] | + + + | Home Phone | | + + + | Preferred Language | Unknown | + + + | Marital Status | | + + + | Taoist Affiliation | 1061 | + + + | Race | Unknown | + + + | Ethnic Group | Unknown | + + + Author + + + | Author | [facility] | | | and [place] | + + + | Organization | [facility] | | | [...] Team Providers + +------+ + | Care Assistant Manager Name | Role | Phone | + +------+ + PCP | Unavailable | + +------+ + Encounter Details +--------+ + + + + | Date | Type | Department | Care Team | Description | +--------+ + + + + | 07/24/ | Hospital | [facility] | Mauricio Goldberg | | | 2000 | Encounter | MED CTR GENERIC OP | MD [address] | | | | | CONV DEPT [address] | [place] | | | | | [place], | [place] [address] | | | | | [place] [address] | [phone] | | | | | [phone] | | | +--------+ + + + [...] Dx); | | | | | [place] [address] | Pacemaker Dual | | | | | [phone] | Chamber, MRI | | | | | | compatible, 05/14/17 | | | | | | [facility]; | | | | | | 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) | +--------+ + + + + | 01/05/ | Office | Cardiology | Emely Gabriel, | | | 2020 | Visit | | [address] | | | | | | [place] | | | | | | [address] | | | | | | | | +--------+ + + + + documented as of this encounter Visit Diagnoses Not on filedocumented in this encounter"
--- OUTSIDE RECORDS SUMMARY | ~2020-05-18 | XMS | Encounter Summary ---
Demographics + + + | Address | [address] | | | [place] [address] | + + + | Home Phone [...] Team Providers + +------+ + | Care Almond Paste Molder Name | Role | Phone | + [...] | | | | | unspecified | [address] | [place] | | | | | COPD type | Phone: | [facility] | | | | | ([facility]) | [phone] | [address] | | | | | Abnormal PFT | Fax: | Phone: | | | | | Procedures | [phone] | [phone] | | | | | SCHEDULED | | Fax: | | | | | FOR 12/25/18 | | [phone] | +--------+ + + + + + [...] 2017 | | CARDIOLOGY [address] | HATCHERY ATTENDANT [address] | | | | | [place], | [address] [place] | | | | | [place] [address] | [address] | | | | | [phone] | | | +--------+ + + + [...] PATEL. Okay per Johnny. Placed referral to [facility] Pulmonology. ...........................................COSTA FENTON RN on 07/04/18 at 13:31 elephone Encounter - Malka Sepulveda - 07/04/2018 11:52 AM PDTPatients son [...] don't see that he has seen a tibco developer, but [facility]. If that is something he is interested in, go ahead and put in referral to [facility] pulmonology department for COPD and abnormal pulmonary function tests. Otherwise, the patient can just discuss further with Dr. Bird at follow up appointment 07/31/18. I did fax a copy of the pulmonary function tests to Dr. Paulino's office as well. Thanks! ...........................................AMANDA Mcmillan on 07/03/18 at 17: 57 documented in [facility] encounter Plan of Treatment +--------+ + + + + | Date | Type | Specialty | Care Team | Description | +--------+ + + + + | 07/20/ | Implant | Cardiology | Cruzito Bird, | Remote Device | | 2019 | Monitor | | [address] | Interrogation | | | | | [place], | (Primary Dx); | | | | | [place] [address] | Pacemaker Dual | | | | | [phone] | Chamber, MRI | | | | | | compatible, 05/14/17 | | | | | | [facility]; | | | | | | 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) | +--------+ + + + + | 01/05/ | Office | Cardiology | Emely Gabriel, | | | 2020 | Visit | | HATCHERY ATTENDANT [address] | | | | | | [place], [place] | | | | | | [address] | | | | | | | [...]
--- OUTSIDE RECORDS SUMMARY | ~2020-05-18 | XMS | Encounter Summary ---
Demographics + + + | Address | [address] | | | [place] [address] | + + + | Home Phone | | + + + | Preferred Language | Unknown | + + + | Marital Status | | + + + | Jehovah'S Witness Affiliation | [id number] | + + + [...] Team Providers + +------+ + | Care Instrument Setter Name | Role | Phone | [...] Description | +--------+---------+ + + + | 05/08/ | Surgery | [facility] | Peter Maciel MD | EGD with Anesthesia | | 2017 | | [facility] | [address] | | | | | [address] | [place], [place] | | | | | [place], [place] | [address] | | | | | [address] | [phone] | | | | | [phone] | | | +--------+---------+ + + + [...] + + + | Blood Pressure | 103/51 | 05/08/2017 1:00 PM | | | | | PDT | | + + + + + | Pulse | 149 | 05/08/2017 1:00 PM | | | | | PDT | | + + + + + | Temperature | 36.2 C (97.2 F) | 05/08/2017 1:00 PM | | | | | PDT | | + + + + + | Respiratory Rate | 27 | 05/08/2017 1:00 PM | | | | | PDT | | + + + + + | Oxygen Saturation | 96% | 05/08/2017 1:00 PM | | | | | PDT | | + + + + + | Inhaled Oxygen | - | - | | | Concentration | | | | + + + + + | Weight | 104.3 kg (230 lb) | 05/07/2017 5:00 PM | | | [...] Physician Discharge Summary Patient ID: Jacklyn Siddiqi [id number] 81 y.o. 1935 Admit date: 05/07/2017 Discharge date and time: No discharge date for patient encounter. Admitting Physician: Yodit Philippe MD Discharge Physician: Susna Jarvis MD Admission Diagnoses: Gastrointestinal hemorrhage, unspecified [...] significantly so this was dis continued. The sales operations director recommended putting in a permanent pacemaker and [...] normal Psychiatric: Appropriate affect and mood Disposition: [facility] Patient Instructions: Discharge Medications New Medications Details [...] three times weekly on Sat, Sat, Sat What changed: Another medication with the same [...] Care Everywhere.Pacemaker Impla ntation, Discharge Instructions for (Macedonian)documented in this encounter Medications at Time of [...] | | | (COUMADIN) 4 MG | Daily. [...] Philippe MD - 06/04/2017 8:18 PM PDT [facility] HOSPITALIST PROGRESS NOTE Patient: Jacklyn Siddiqi : 1935: Age: 81 y.o. MedRec: [id number] PCP: Antonio Paulino MD Admission date: 05/07/2017 [...] as outlined above. Yodit Philippe 06/04/2017 20:18 [facility] Shawn Lewis, [facility] Glass Sander - 05/16/2017 9:29 AM PDTFormatting of this [...] 05/14/17 1753 05/13/17 0436 05/12/17 1949 05/12/17 1942 CREA -- -- 1.20 1.67* 1.82* -- [...] am: INR 4. Warfarin education received NO- mining captain. 5. Pharmacist to follow daily Warfarin Dosing Nomogram Warfarin Dosing Expectations Per P&T-approved Electronically signed by: Shawn Mercedes, Head And Neck Surgeon 05/16/2017 9:29 Michael Giang MD - 05/16/2017 [...] (05/11/172214) OBJECTIVE: PHYSICAL EXAM Latest VS: BP 121/41 [...] to be fluid overloaded on this study. Michel Ramirezwas in his usual state of health [...] He is in a class IIo f [employer] [place] [employer] functional class. There is mild [...] made to ensure accuracy; however, inadvertent computerized jack setter errors may be pre sent. Electronically signed by: Cruzito Bird MD 05/16/2017 7:18 Susan Diaz MD - 05/15/2017 7:43 PM PDT [facility] HOSPITALIST PROGRESS NOTE Patient: Jacklyn Siddiqi : 1935: Age: 81 y.o. MedRec: [id number] PCP: Antonio Paulino MD Admission date: 05/07/2017 [...] left base consolidation. Dictated and Signed by: aPco Villasenor MD Electronically signed: 05/14/2017 9:44 AM [...] ou tlined above. Susan Vides 05/15/2017 19:43 [facility] Jessica Rivas, PharmD - 05/15/2017 7:41 AM PDT . [...] am: INR 4. Warfarin education received NO- mining captain. 5. Pharmacist to follow daily Warfarin [...] DOPamine Stopped (05/12/17 0745) norepinephrine Stopped (05/11/17 0068) OBJECTIVE: PHYSICAL EXAM Latest VS: BP 135/43 [...] (L/min) Av.7 Min: 2 Max: 4 05/13 0701 - 05/14 1900 In: 1853 [P.O.:1160; I.V.:693] [...] pacemaker has replaced Sinus rhythm Confirmed by FREDERICK CHARLTON, BINU ([id number]) on 05/15/2017 5:56:04 AM ECG 12 lead [...] Sinus rhythm Confirmed by BINU MACK MD ([id number]) on 05/15/2017 5:57:23 AM CBC no Differential [...] He is in a class IIo f [employer] functional class. There is mild [...] made to ensure accuracy; however, inadvertent computerized jack setter errors may be pre sent. Electronically signed by: Cruzito Bird MD 05/15/2017 6:36 Susan Diaz MD - 05/14/2017 8:48 PM PDT [facility] HOSPITALIST PROGRESS NOTE Patient: Jacklyn Siddiqi : 1935: Age: 81 y.o. MedRec: [id number] PCP: Antonio Paulino MD Admission date: 05/07/2017 [...] PM HISTORY: Confirm PICC tip placement. COMPARISON: Mul tiple priors. Findings: There has been interval placement of [...] ou tlined above. Susan Vides 05/14/2017 20:48 [facility] Jessica Rivas, PharmD - 05/14/2017 4:08 PM PDT . [...] 0436 05/12/17 1949 05/12/17 1942 05/11/17 1915 05/10/17 2033 05/09/17 0405 CREA 1.67* 1.82* -- 1.61* 1.28 [...] am: INR 4. Warfarin education received NO- mining captain. 5. Pharmacist to follow daily Warfarin Dosing Nomogram Warfarin Dosing Expectations Per P&T-approved Electronically signed by: Jessica Delaney PharmD 05/14/2017 16:08 Michael Giang MD - [...] DOPamine Stopped (05/12/17 0745) norepinephrine Stopped (05/11/17 6344) sodium chloride 0.9% 125 mL/hr at 05/14/17 [...] (L/min) Av.8 Min: 1 Max: 2 05/12 0701 - 05/13 1900 In: 900 [P.O.:900] Out: [...] treatment were discussed with the patient in [facility]. The patient decides to proceed with the procedure. 2. Resume Coumadin after procedure today. 3. Start amiodarone oral loading today to treat A. fib with RVR. Portions of this report were transcribed using voice recognition software. Every effort wa s made to ensure accuracy; however, inadvertent computerized jack setter errors may be pre sent. Electronically signed by: Cruzito Bird MD 05/14/2017 6:25 row, Yodit Ramsay MD - 05/13/2017 7:23 AM PDTForm atting of this note might be different from the original. [facility] HOSPITALIST PROGRESS NOTE Patient: Jacklyn Siddiqi : 1935: Age: 81 y.o. MedRec: [id number] PCP: Antonio Paulino MD Admission date: 05/07/2017 [...] has lengthened Confirmed by FREDERICK CHARLTON, BINU ([id number]) on 05/13/2017 6:24:02 AM Culture, Blood Result [...] arthroplasty changes. Multiple lead wires overlie the mrlmy-or-jnrt. Overall unchanged aeration of the lungs with [...] Patient was tested (positive) at the [facility], w as provided with CPAP, slept "all [...] awake and requires oxygen when a sleep. B-COMMERCIAL LINES ASSISTANT 488 on arrival. Echo 02/2017 showed EF [...] Pulmonary HTN Mild to severe by echo 7490-1858. Never smoked tobacco and no documente d [...] associated falls, on e occurring at the [facility] the day of admission and one occurring [...] as outlined above. Yodit Philippe 05/13/2017 7:23 [facility] row, Yodit Ramsay MD - 0 05/12/2017 10:27 AM PDT [facility] HOSPITALIST PROGRESS NOTE Patient: Jacklyn Siddiqi : 1935: Age: 81 y.o. MedRec: [id number] PCP: Antonio Paulino MD Admission date: 05/07/2017 [...] arthroplasty changes. Multiple lead wires overlie the [id number]-gd-[id number]. Overall unchanged aeration of the lungs with [...] as outlined above. Yodit Philippe 05/12/2017 10:27 [facility] row, Yodit Ramsay MD - 0 05/11/2017 2:21 PM PDT [facility] HOSPITALIST PROGRESS NOTE Patient: Jacklyn Siddiqi : 1935: Age: 81 y.o. MedRec: [id number] PCP: Antonio Paulino MD Admission date: 05/07/2017 [...] with rate 70-80 on dopamine 5 mcg/min. Rhea systolic valve cli ck at [facility]SB. Respiratory: [...] arthroplasty changes. Multiple lead wires overlie the hlpbv-or-oaai. Overall unchanged aeration of the lungs with [...] as outlined above. Yodit Philippe 05/11/2017 14:21 [facility] cConnell, Rob Zacarias N - 05/10/2017 7:34 PM PDTPt had [...] 05/10/2017 7:03 PM PDT HOSPITALIST progress NOTE [facility] Donita Duckworth 05/10/2017 Rounding Physician: Yodit Philippe MD Patient Name: Jacklyn Siddiqi : 1935 Medical Record: [id number] Primary Hospital Problem: Atrial fibrillation with RVR [...] oz) Intake/Output Summary (Last 24 hours) at 05/10/17 190 Last data filed at 05/10/17 1747 Gross [...] made to ensure accuracy; however, inadvertent computerized jack setter errors and typos m ay be present Electronically signed by: Yodit Pihlippe MD, DATE/TIME: 05/10/2017 19:03 [facility] HOSPITALIST TEAM arTania walton RN - 05/10/2017 4:33 PM PDTReport to Whitney, Patient in bed resting. rradha, Yodit Ramsay MD - 05/10/2017 3:59 PM PDTForma tting of this note might be different from the original. [facility] HOSPITALIST PROGRESS NOTE Patient: Jacklyn Siddiqi : 1935: Age: 81 y.o. MedRec: [id number] PCP: Antonio Paulino MD Admission date: 05/07/2017 [...] rhythm has replaced Atrial fibrillation Confirmed by BINU MACK MD ([id number]) on 05/10/2017 5:50:22 AM No results found. [...] as outlined above. Yodit Philippe 05/10/2017 15:59 [facility] Tania House RN - 05/10/2017 2:15 PM [...] to commode and one pers on assist. monitoring engineer shows Sinus Tach with BBB. Patient on RA with sats 100%Electroni cece signed by Tania Cervantes RN at 05/10/2017 12:54 PM ELSYCrow, Yodit Ramsay MD - 05/09/2017 8:11 PM PDT [facility] HOSPITALIST PROGRESS NOTE Patient: Jacklyn Siddiqi : 1935: Age: 81 y.o. MedRec: [id number] PCP: Antonio Paulino MD Admission date: 05/07/2017 [...] as outlined above. Yodit Philippe 06/04/2017 20:12 [facility] Nancy Perales RN - 0 05/09/2017 1:59 PM PDTEvaluated pt for PICC line, upon review of chart placed midline 4 fren ch in left cephalic. Pt Needing IV access for blood draw and occasional IVP medication.Barbara ctronically signed by Nancy Arechiga RN at 05/09/2017 2:01 PM PDTCrow, Yodit Ramsay MD - 05/08 8:15 PM PDT [facility] HOSPITALIST PROGRESS NOTE Patient: Jacklyn Siddiqi : 1935: Age: 81 y.o. MedRec: [id number] PCP: Antonio Paulino MD Admission date: 05/07/2017 [...] as outlined above. Yodit Philippe 06/04/2017 20:15 [facility] Mary Vargas RN - 05/08/2017 2:57 PM PDTPlaced patient in trendelenburg. Mary Vargas RN - 05/08/2017 2:25 PM PDTReadjusted bp cuff and repositioned arm for this reading.Electro nically signed by Mary Cortes RN at 05/08/2017 2:25 PM Jacey Guerin RN - 05/08/20 17 2:34 AM PDTPt maintained on Octreotide infusion as ordered. Pt c/o "not getting enough a ir in" at 2100h. O2 sat 85% on room air. Pt repositioned in bed and RT notified. O2 2 L via COMMERCIAL LINES ASSISTANT applied. O2 sat increased to 91%. Maintained [...] for left leg pain a t hs. Dolly Ramachandran PharmD - 05/07/2017 7:38 PM PDT . [...] and direction x MAR from SNF facility: [facility] Vaccines up to date? Yes No Unsure [...] performed and electronically signed by Isa Kaufman, Transfer Man 16:14 Reviewed by: Dolly Rizzo, PharmD 05/07/2017 19:29 Иван Escudero RN - 05/07/2017 [...] completed. Report given to Grzegorz guerrier RN. Greta Mari RN - 05/07/2017 5:16 PM PDTPt arrived from ER to acute medical room 447, c/o left leg discomfort. Recent fall today, multiple skin tears to bilat arms, pitting edema mi d abd to bilat upper thighs, LE with Coban 2 wraps, attempted to remove to visualize skin, p t's son adamantly refuses to allow staff to remove, d/t just being placed today at [place], son r corinna pt does have open [...] Ramsay MD - 05/07/2017 2:14 PM PDT [facility] HISTORY AND PHYSICAL Pt. [...] convenience store. [facility] or [facility]. He resides in [...] has been treated recently with compression dr juan to his knees for edema associated with stasis ulcers. He has a nonhealing ulcer ri 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 [...] (HCC) 2003 CT scan [address] [facility] CAD (coronary artery disease) 2005 Had CABG to LAD (for 80-90% LAD) surgery done at [facility] CVA (cerebral infarction) -2014 lacunar (not stated as new nor old) Dementia Diastolic CHF (HCC) Echo 2013 EF 68, ascites, pulm HTN Endocarditis 2009 Enterococcus 6 weeks Amp + Gent H/O aortic valve replacement 2004 [facility] Rupert AVR INR goal is 2-3, surgery done at [facility] Hypertension Liver cirrhosis (HCC) Over-anticoagulated 04/01/2015 Peripheral vertigo 2012 BPPV left PSA elevation 2008 Pt declined Bx then Pulmonary HTN (HCC) Severe on Echo 2013 Retinal detachment 2010 Venous ulcer 2014 Leg Past Surgical History: [...] is not indicated. Code Status Full code. [facility] Documentation This patient is short of breath and acutely anemic with melena on warfarin with an artifici al valve in place. He is expected to pass more than two midnights in the hospital. Total of 60 minutes were required to complete the admission process. Electronically signed by: Yodit Philippe MD 05/07/2017 14:14 [facility] documented in this enc ounter Procedure Notes Cruzito Bird MD - 05/14/2017 8:35 AM PDTAssociated Order(s): CV EP PROCEDUREFormatti ng of this note might be different from the original. PERMANENT PACEMAKER IMPLANTATION PATIENT NAME: Jacklyn Siddiqi : 1935: AGE: 81 y.o. PRIMARY CARE: Anotnio Paulino MD SURGEON: Cruzito Bird MD DATE OF PROCEDURE: 05/14/2017 PROCEDURES PERFORMED: 1. Utilization of contrast agent for left subclavian venography. 2. Dual chamber [employer]. Rupert permanent pacemaker implantation. INDICATIONS: 1. 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 1 g of cefaz jamel was given [...] pulled through into the pocket. A 6 Australian sheath was p laced over the guidewire and the core was removed. The additional guidewires were inserted through the sheath. The sheath was then removed. The guidewires were secured by hemostat, leaving one guidewire to be utilized for placement of an 8 Australian safe sheath. A safe sheat h core [...] same technique as mentioned above, another 8 Australian safe sheath was utilized to i ntroduce [...] Rupert, model #: PM 2272, serial #: [id number]. B. Atrial lead: St. Rupert, length 46 cm, model #: LPA 1200 M, serial #: [id number]. C. Ventricular lead: [facility]. Rupert, length 52 cm, model #: LPA 1200M, serial #: [id number]. PACEMAKER TESTING: A. Atrial lead: Sensing 2.4 [...] obstructive sleep apnea. He was admitted to [facility] on 05/07/2017 for Atrial fibrillation with [...] into problems with hypotension. Amiodarone was started. H owever, he developed a severe bradycardia with hypotension, requiring dopamine. Today, patient complained of feeling fatigued and tired. However, he has no chest pain. Grzegorz ac had some leg swelling prior to admission this is getting better. He is now out of breath as he is sitting. He can sleep on one pillow without shortness of breath. PAST MEDICAL HISTORY Past Medical History: Diagnosis Date Alcoholic cirrhosis (HCC) 2003 CT scan [address] [facility] CAD (coronary artery disease) 2004 Had CABG to LAD (for 80-90% LAD) surgery done at [facility] CVA (cerebral infarction) -2014 lacunar (not stated as new nor old) Dementia Diastolic CHF (HCC) Echo 2014 EF 68, ascites, pulm HTN Endocarditis 2009 Enterococcus 6 weeks Amp + Gent H/O aortic valve replacement 2004 [facility] Rupert AVR INR goal is 2-3, surgery done at [facility] Hypertension Liver cirrhosis (HCC) Over-anticoagulated 04/01/2015 Peripheral vertigo 2012 BPPV left PSA elevation 2009 Pt declined Bx then Pulmonary HTN (HCC) Severe on Echo 2014 Retinal detachment 2010 Venous ulcer 2014 Leg CURRENT PROBLEMS Principal [...] with Anesthesia; Surgeon: Peter Maciel MD; [facility] FAMILY HISTORY Family [...] Patient take s three times weekly on Sat, Sat, Sat furosemide (LASIX) 40 mg tablet Take 40 [...] Oral Daily IV INFUSIONS: DOPamine Stopped (05/12/17 5345) norepinephrine Stopped (05/11/17 9395) ALLERGIES Allergies Allergen Reactions Latex Rash REVIEW [...] developed, well nourished, well groomed, no ac [place] distress Cardiovascular NYHA Class: II- Symptoms with [...] has lengthened Confirmed by FREDERICK CHARLTON, BINU ([id number]) on 05/13/2017 6:24:02 AM Culture, Blood Collection [...] 8.2 fL Differential, Blood, Manual Collection Time: 05/13/17 4:36 Result Value Ref Range % Seg [...] He is in a class II of [employer] [employer] functional class. There is fluid [...] this chart may have been created with [employer] voice recognition software. Occasi onal wrong-word or sound-alike substitutions may have occurred due to the inherent carter itations of voice recognition software. Please read the chart carefully and recognize, using context, where these substitutions have occurred. Amelie Alvarez RN - 05/08/2017 11:53 AM PDTAssociated O rder(s): IP CONSULT TO WOUND OSTOMY NURSEJosefina Siddiqi is a [facility] patient who is seen at the [facility] routinely, that has the Coban 2 placed every /Sat which were just placed yesterday . Per the patient he has two ulcerations to the left LE POA. His son and him do not want the wraps removed until SaturdayMay 10 please. OT and Nursing to document wound/ulcers at that session. Have requested DC medical records as well to have in the paper chart. Amelie Pack RN [facility]patient [facility] Ext [phone] docume nted in this encounter ED Notes [...] here with his son who saw him sandy [place]. He did not hit his head or [...] Date Alcoholic cirrhosis (HCC) 2003 CT scan [address] [facility] CAD (coronary artery disease) 2004 Had CABG to LAD (for 80-90% LAD) surgery done at [facility] CVA (cerebral infarction) -2014 lacunar (not stated as new nor old) Dementia Diastolic CHF (HCC) Echo 2014 EF 68, ascites, pulm HTN Endocarditis 2009 Enterococcus 6 weeks Amp + Gent H/O aortic valve replacement 2004 [facility] Rupert AVR INR goal is 2-3, surgery done at [facility] Hypertension Liver cirrhosis (HCC) Over-anticoagulated 04/01/2015 Peripheral vertigo 2013 BPPV left PSA elevation 2009 Pt declined Bx then Pulmonary HTN (HCC) Severe on Echo 2014 Retinal detachment 2011 Venous ulcer 2014 Leg SURGICAL HISTORY Past Surgical History: Procedure Laterality Date CARDIAC SURGERY [facility]G and [facility] Rupert [...] UA, POC Negative Negative, 100 mg/dL Specific [place], UA, POC 1.025 1.001 - 1.030 Blood, [...] Kwok MD - 05/16/2017 2:20 PM PDT ASSISTED FACILITY TRANSFER ORDERS Patient Name: Jacklyn Siddiqi Patient : 1935 Gender: male Date of Admission: 05/07/2017 Date of Discharge: 05/16/2017 Admitting Provider: Yodit Philippe MD Discharging Provider: Susan Vides MD Consultants: Dr Nettles PCP: Antonio Paulnio [facility] transferring to: [facility] Provider after transfer: CODE STATUS: [x] Attempt CPR [] Do not resuscitate If patient is pulseless and not breathing, RN/SERVICE COUNSELOR may pronounce . Advanced Directives included: [] [...] Pacemaker reprogramming/check Pacemaker Dual Chamber, MRI compatible, 7/25/17 [facility] Rupert Bird Allergies Allergen Reactions Latex Rash Diet: [x] As tolerated GRIEVANCE MANAGER may upgrade or downgrade diet as [...] Whole [] Thin Liquids [] Cut-up [] Adak Thick [] Advanced Chopped [] Honey Thickened [] Chopped [] Advanced Ground [] 1:1 feedings [] Ground/Pureed [] Other: Tube Feedings: [] PEG [] GT [] JT [] NGT [] Formula type: (Blade Operator may change/substitute if indicated). [] Continuous Rate: [...] & Management for: restrict ed limb [] GRIEVANCE MANAGER Evaluation &Management for: [] Other: Wound/Skin [...] three times weekly on Mon, Wed, Fri guaiFENesin-codeine 100-10 mg/5 mL liquid Take 5 [...] Susan SAWYER MD, certify that post hospital snf care is medically nece ssary on a continuing basis for any of the conditions for which he/she received care during this hospitalization. Check one: [x] Skilled [] Intermediate Additional Orders/Instructions Physician's signature: Susan Jarvis MD05/16/2017 14:20 [facility] USE ONLY: [] Admitting [...] large amount. PVR 0 ml. lan of Care - Velia Saul, PT - 05/16/2017 11:55 [...] Therapy Discharge Recommendations are: Recommended discharge disposition: snf facility Post discharge physical therapy recommendation: will [...] for assist for safety Bed-Chair, Level of [place]: contact guard assist, set up required, verbal cues requir ed Chair-Bed, Level of [place]: contact guard assist, set up required, verbal cues requir ed Hno-Dyxcv-Wfx, Assistive Device: 2 wheeled walker (FWW) Sit-Stand, Level of [place]: contact guard assist, verbal cues required Stand-Sit, Level of [place]: contact guard assist, verbal cues required Afn-Bjtec-Inn, Assistive Device: 2 wheeled walker (FWW) Safety Issues: weight-shifting ability decreased Impairments: pain, strength decreased Bed Mobility increased time and need for frequent redirection Assistive Device: bed rails Supine to Sit, Level of [place]: contact guard assist Sit to Supine, Level of [place]: (NT, pt left sitting in bedside chair) [...] STG Status continued at 05/16/2017 1155 STG [place] Level modified independent, supervised at 05/09/2017 1700 STG Assistive Device 2 wheeled walker (FWW) at 05/09/2017 1700 STG Distance (feet) 50 at 05/09/2017 1700 Electronically signed by: Velia Gerard, PT, 05/16/2017 11:59 lan of Ana Green i, RN - 05/16/2017 10:32 AM PDTProblem: Discharge Planning Goal: Patient will be discharged in a safe manner Outcome: Improving This CM spoke with Elkin at [facility] this AM and she is ready to accept patient when he is medically stable and will arrange transport there for patient. She confirmed yahaira t they also have OT there to do his leg wraps. Efaxed the MD prog notes, PT OT notes, and med list to her. TN# [id number]. Manually faxed the completed PASRR to SNF. Pkt started and placed in ghost chart. Electronically signed by: nAa Dietrich RN 05/16/2017 10:27 11:14 Left message with Elkin, at [facility], letting her know that patient will be d ischarged today and would be ready this afternoon sometime. Requested a return call with pic k up time. Elkin returned call with 1430 apple picking supervisor time. Let bedside RN know. Left message with Jr Jacklyn, letting him know that his dad will be taken to the SNF today. Pkt completed with original completed PASRR, AVS, and Trazadone script. Given to driver license technician. Fa xed SNF transfer orders to [facility] with call to Elkin.Electronically signed by: Sangita Dietrich RN 05/16/2017 15:08 lan of Adonis Rivera RRT - 05/16/2017 5:54 AM PDTProblem: Patient [...] liter/minute, BS expiratory wheezes/fine crackles. lan of Care - Nanda Zacarias RN - 05/16/2017 5:04 AM PDTProblem: Patient [...] assist with ambulation and transfers. lan of Rob Crocker RN - 05/15/2017 5:55 PM PDTProblem: Discharge Planning Goal: Patient will be discharged in a safe manner Outcome: Improving This CM met with patient's son, Jacklyn Joiner, today. Kelly from [facility], p# [phone], faxed the paperwork to Jacklny Kelly' email per his request; this needs [...] only be a short term rehab not detention stay and that he would have to pay for the transpor t there, since he is non-service connected, per SAMEER [place], whom this CM called to confirm this above information. Jacklyn Joiner stated that his father will not go back to [facility], so reassured him yahaira t the landscape architect and planner at [facility] would help find a extermination supervisor place for him since he will need to have full care for him to be safe. He understood this need. He appreciated the visit. Electronically signed by: Ana Dietrich RN 05/15/2017 17:55 lan of Velia Davis, PT - 05/15/2017 1:50 PM PDTFormatting of [...] for activity tolerance and pregait activity. Mary esquivel during session with c/o of nursing staff [...] Therapy Discharge Recommendations are: Recommended discharge disposition: snf facility Post discharge physical therapy recommendation: will [...] and attending to task Bed-Chair, Level of [place]: contact guard assist, set up required, verbal cues requir ed Chair-Bed, Level of [place]: contact guard assist, set up required, verbal cues requir ed Tmw-Gwzoh-Oqv, Assistive Device: 2 wheeled walker (FWW) Sit-Stand, Level of [place]: contact guard assist, verbal cues required Stand-Sit, Level of [place]: contact guard assist, verbal cues required Oxq-Ywsua-Vvu, Assistive Device: 2 wheeled walker (FWW) Safety Issues: weight-shifting ability decreased Impairments: pain, strength decreased Bed Mobility increased time and need for frequent redirection Assistive Device: bed rails Supine to Sit, Level of [place]: contact guard assist Sit to Supine, Level of [place]: (NT, pt left sitting in bedside chair) [...] STG Status continued at 05/15/2017 1315 STG [place] Level modified independent, supervised at 05/09/2017 1700 [...] forward to go to a rehab facil [facility] in the future. lan of Care - Maria Antonia Bullard, SOC ANALYST - 05/15/2017 8:43 AM PDTProblem: Patient Care [...] not require oxygen last night lan of Care - Nanda Odom RN - 05/15/2017 5:41 [...] ssistance with ambulation and transfers. lan of [facility] - Rob Dietrich RN - 05/14/2017 6:04 PM PDTProblem: Discharge Planning Goal: Patient will be discharged in a safe manner This CM met with patient per his request about his discharge plan. Let him know that [facility] has accepted him and he was aware [...] not even know that his [facility] in the hospital [facility]. This CM was trying to get some help as to where patient was going to go after his rehab, si gae patient stated that his other son, Jacklyn Siddiqi Jr, is currently moving out all his belo ngings out of [facility] in [place], since he is too high level of care for them any more. Spoke with Jacklyn Joiner, and put his phone numbers in the chart, OK with patient, since [facility] e[facility] is the one who transports him to all his appts, etc. He stated that Jacklyn Joiner, is his POA. Later this afternoon evening, patient requested that this CM call the DC and see if the [facility] has any bed for him. Let patient know that this will have to be done in the AM since they are already closed today. CM will need to call the [facility] in AM to see if patient is eligible for transfer to the [facility] [place].Electronically signed by: Ana Dietrich RN 05/14/2017 18:04 lan of Reena Bullard, Erika Joya RRT - 05/14/2017 5:40 PM PDTProblem: Patient Care [...] expiratory phase . Requires 2 lpm at noc lan of Emily Herring RN - 05/14/2017 5:29 PM PDTProblem: Patient [...] Therapy Discharge Recommendations are: Recommended discharge disposition: snf facility Post discharge physical therapy recommendation: will [...] treatment from his children Bed-Chair, Level of [place]: contact guard assist, set up required, verbal cues requir ed [id number]-[id number]-Nxj, Assistive Device: 2 wheeled walker (FWW) Sit-Stand, Level of [place]: contact guard assist, verbal cues required Stand-Sit, Level of [place]: contact guard assist, verbal cues required Iqw-Negws-Wgh, Assistive Device: 2 wheeled walker (FWW) Safety Issues: weight-shifting ability decreased Impairments: pain, strength decreased Bed Mobility increased time and need for frequent redirection Assistive Device: bed rails Supine to Sit, Level of [place]: contact guard assist Sit to Supine, Level of [place]: (NT, pt left sitting in bedside chair) [...] STG Status continued at 05/14/2017 1600 STG [place] Level modified independent, supervised at 05/09/2017 1700 [...] re questing to use commode. OT and NURSING TECHNICIAN assisted patient with functional t/f and limited [...] bed rails Supine to Sit, Level of [place]: contact guard assist Sit to Supine, Level of [place]: contact guard assist Transfers Sit-Stand, Level of [place]: stand by assist, contact guard assist Stand-Sit, Level of [place]: stand by assist, contact guard assist Dfr-Xbfyp-Vxe, Assistive Device: 2 wheeled walker (FWW) Toilet, Level of [place]: contact guard assist, stand by assist Toilet, Assistive Device: 2 wheeled walker (FWW) Impairments: pain, strength decreased OT Goal Review Date Flowsheet Row Most Recent Value STG Review Date 05/16/17 at 05/09/2017 1604 LB Dressing Goal Flowsheet Row Most Recent Value STG Status new at 05/14/2017 1045 STG [place] Level modified independent at 05/14/2017 1045 Toilet Transfer Goal Flowsheet Row Most Recent Value STG Status new at 05/14/2017 1045 STG [place] Level supervised at 05/14/2017 1045 STG Assistive [...] Airam Benito OT, 05/14/2017 11:47 lan of Joanna Manning RN - 05/14/2017 4:51 AM PDTHR regular, rates 70's, lungs are coarse, dimin ished. No cough, sl SOB w any exertion. No new skin tears, drsgs intact to current ones. Sle pt off and on, NPO for planned pacemaker placement this morning. lan of Sumeet Castillo RRT - 2016 3:28 AM PDTProblem: Patient [...] Spiritual Evaluation: Patient is a "B[employer] Believing [employer]" loves to pray and read the "Word." Spiritual Intervention: Listened to the patient's concerns about the upcoming procedure. Active Listening, past oral presence, and prayer was offered. Spiritual Outcomes: Patient appreciates aluminum siding installer's prayer, seems less apprehensive. Spiritual Goals / Follow-up: Will see the patient as requested. If there are any other spiritual care issues that arise, please contact aluminum siding installer. lan of Care - Kristina Ayers RRT - 05/13/2017 3:57 PM PDTProblem: Patient Care [...] s treatments well. lan of Care - Faith sonVelia, PT - 05/13/2017 1:40 PM PDTFormatting of [...] Therapy Discharge Recommendations are: Recommended discharge disposition: snf facility Post discharge physical therapy recommendation: will benefit from structured setting, ongo ing low intensity therapy Equipment Recommendations: 2 wheeled walker (FWW) Planned Interventions: balance training, gait training, strengthening Recommended Frequency: daily Patient Status/Goals: Reflects last filed data and may be from multiple contributors. Gait side-stepping at bedside Level of [place]: 2 person assist required Assistive Device: 2 wheeled walker (FWW) Transfers pt weak and with dizziness, need for CGA for safety due to symptoms Sit-Stand, Level of [place]: stand by assist, contact guard assist Stand-Sit, Level of [place]: stand by assist, contact guard assist Jgq-Lhvyi-Gir, Assistive Device: 2 wheeled walker (FWW) Safety Issues: weight-shifting ability decreased Impairments: pain, strength decreased Bed Mobility increased time d/t fatigue Assistive Device: none Supine to Sit, Level of [place]: contact guard assist Sit to Supine, Level of [place]: contact guard assist Functional Endurance impaired - SOB with limited activity [facility] Turning over in bed: a [...] steps with a railing: dependent/unable TOTAL - [facility] : 14 Unable / dependent = 1 A lot / modA = 2 A little / Guillermo = 3 None / independent = 4 Completed the [facility] Activity Measure for Post Acute Care (AM-PAC) "6 Clicks" [facility] Mobility Inpatient Short Form. This version [...] STG Status continued at 05/12/2017 1203 STG [place] Level modified independent, supervised at 05/09/2017 1700 STG Assistive Device 2 wheeled walker (FWW) at 05/09/2017 1700 STG Distance (feet) 50 at 05/09/2017 1700 Electronically signed by: Velia Gerard, PT, 05/13/2017 13:50 lan of Ana Green i, RN - 05/13/2017 12:57 PM PDTProblem: Discharge Planning Goal: Patient will be discharged in a safe manner Outcome: Improving This CM called Elkin at [facility] [place], p# [phone], and she confirmed that she has a ccepted patient at discharge for rehab. Electronically signed by: Ana Dietrich RN 05/13/2017 12 :56 lan of Popeye Styles OT - 05/13/2017 12:16 PM PDTFormatting of [...] be free from falls by 05/14/17 3. Jakclyn will have adequate pain control 12/28 by [...] Calls appropriately. lan of Care - Sumeet Burr RRT - 05/13/2017 4:47 AM PDTProblem: Patient Care [...] from pain. lan of Care - Donato Mcqueen, SOC ANALYST - 05/12/2017 6:09 PM PDTProblem: Patient Care [...] while sleeping. lan of Care - Javier Arana PTA - 05/12/2017 11:50 AM PDT Problem: Patient [...] unable to step in place Level of [place]: 2 person assist required Assistive Device: 2 wheeled walker (FWW) Distance (feet): 15, 15 Transfers pt very weak with low BP, CGA to Min Assist for sit<>stand Sit-Stand, Level of [place]: stand by assist, contact guard assist Stand-Sit, Level of [place]: stand by assist, contact guard assist Jhu-[id number]-Wgn, Assistive Device: 2 wheeled walker (FWW) Safety Issues: weight-shifting ability decreased Impairments: pain, strength decreased Bed Mobility NT; pt up in chair on arrival requested to stay up in chair post tx Assistive Device: none Supine to Sit, Level of [place]: independent Sit to Supine, Level of [place]: independent Therapeutic Exercise pt c/o of pain [...] STG Status continued at 05/12/2017 1203 STG [place] Level modified independent, supervised at 05/09/2017 1700 [...] 25-30 ml urine an hour. lan of [facility] - Nataly Rosenbaum, VALARIE - 05/12/2017 12:36 AM PDTProblem: Patient Care [...] % on 2liters/minute nasal cannula lan of [facility] - Lisa Sherwood RN - 05/11/2017 6:58 [...] tare. lan of Care - Donato Mcqueen, SOC ANALYST - 05/11/2017 4:33 PM PDTProblem: Patient Care [...] down to RA from 3L lan of Becky Block PT - 05/11/2017 1:34 PM PDTProblem: Patient [...] prior to tx. Electronically signed by: Becky Jesus PT, 05/11/2017 13:34 lan of Joanna Manning RN - 05/11/2017 6:55 AM PDTDopamine remains on [...] tolerated well. Elect ronically signed by Joanna Salazar RN at 05/11/2017 7:06 AM PDTPlan of Care - Sumeet Jeronimo RRT - 05/11/2017 6:34 AM PDTProblem: Patient [...] indica johnny. lan of Care - Donato Mcqueen RRT - 05/10/2017 6:21 PM PDTProblem: Patient Care [...] few days. lan of Care - Becky Morrison, PT - 05/10/2017 12:13 PM PDT Problem: [...] due to fear of falling Level of [place]: 2 person assist required Assistive Device: 2 wheeled walker (FWW) Distance (feet): 15, 15 Stairs unable Bed Mobility Assistive Device: none Supine to Sit, Level of [place]: independent Sit to Supine, Level of [place]: independent Therapeutic Exercise Seated exercises: bilateral, long [...] STG Status new at 05/09/2017 1700 STG [place] Level modified independent, supervised at 05/09/2017 1700 STG Assistive Device 2 wheeled walker (FWW) at 05/09/2017 1700 STG Distance (feet) 50 at 05/09/2017 1700 Electronically signed by: Becky Jesus, PT, 05/10/2017 12:12 lan of Reena - Joanna Lock RN - 05/10/2017 7:30 AM PDTPt has [...] dressed w non adherent drsg. lan of Care - Sana, Sudhakar Ac, SOC ANALYST - 0 05/10/2017 4:23 AM PDTProblem: Patient [...] for meals. On room air. lan of [facility] Irais Reynolds RN - 05/09/2017 6:15 PM PDTProblem: Discharge Planning Goal: Patient will be discharged in a safe manner Outcome: Kingsley Sparks RN and her Director, Vasquez, showed up to [...] agreed. I visited with Jacklyn and Anny Siddiiq along with Jesusita, one of our Chaplains, regarding a "Plan B" as Mr. Siddiqi had been crying when the two ladies had left the room. They decided that they would like me [facility] [place] [facility] [place] I faxed a referral to both facili ties and placed the cover sheets and fax receipts in the ghost charts. I received a call fr adriane Granger from [facility] and she verified that she had received it. I will follow up with both of them tomorrow. There were no other questions or needs at this time. Jose zhao signed by: Irais Travis RN 05/09/2017 18:14 lan of Care - Becky Gaines, PT - 05/09/2017 5:04 PM PDTFormatting of this note might be different from krystina ac original. Problem: Patient Care Overview (Adult) Goal: [...] due to fear of falling Level of [place]: 2 person assist required Assistive Device: 2 wheeled walker (FWW) Distance (feet): 15, 15 Stairs NT Bed Mobility Assistive Device: none Supine to Sit, Level of [place]: independent Sit to Supine, Level of [place]: independent Balance ongoing assessment needed Therapeutic Exercise Seated exercises: bilateral, long arc quads Repetitions: 20 ROM ROM Testing Results: no range of motion deficits identified Strength Strength Testing Results: no strength deficits were identified Balance Standing Dynamic Goal Flowsheet Row Most Recent Value STG Status new at 05/09/2017 170 STG demonstrate safe amb without loss of balance at 05/09/2017 170 Gait Goal Flowsheet Row Most Recent Value STG Status new at 05/09/2017 1700 STG [place] Level modified independent, supervised at 05/09/2017 170 STG Assistive Device 2 wheeled walker (FWW) at 05/09/20171699 STG Distance (feet) 50 at 05/09/20171699 Electronically signed by: Becky Jesus, PT, 05/09/2017 17:03 lan of Care - Erin Rich OT - 05/09/2017 4:17 PM PDTFormatting of [...] Initial eval scheduled tomorrow as per order bu t MD had removed the left compression wrap [...] and compression wrap will be changed on on, 05/13, unless MD or patient has it [...] Erin Gates OT, 05/09/2017 16:16 lan of Care - Joanna Lock RN - 05/09/2017 6:30 AM [id number] (late entry) pt has remained in ST all thomas ft, HR 102-110, BBB, occasional multifocal PVC. Medicated x 1 for c/o pain in LLE. RLE has l ymphedema wrap on. LLE, discolored w changes of PVD, pedal pulses are palpable. Pt has pitti ng edema from knees to flank area. Moves well in the bed, was up to BSC x 1 w 1 assist, tole rated well. lan o f Reena - Sudhakar Hood, SOC ANALYST - 05/09/2017 1:56 AM PDTProblem: Patient Care [...] treatments. lan of Care - Or Nataly shah, VALARIE - 05/08/2017 6:40 PM PDTProblem: Patient Care [...] rapid heart rate lan of Care - Elva hicks, Martha Ron RN - 05/08/2017 6:27 PM PDTProblem: Patient [...] his HR jumped up to the 160's. Dr was contacted and he was transferred to [place] at 1136. At about 1445 his HR [...] Toan Reynolds RN - 05/08/2017 5:42 PM PDT. Jose Martin in around 1330 to Assess Mr Jose Martin. He has been complaining of 10/10 left leg pain. Lymphedema wrap removed from Left leg. CMS assessed. Cap refill < 3 sec. Foot warm and good pulse. Pt states reduction in pain. Order for OT pl aced to replace lymphedema wraps and treat for the remainder of hospitalization.Electronical ly signed by Martha Reynolds RN at 05/08/2017 5:46 PM PDTPlan of Care - Melinda Davis, CASHIER PARKING [employer] - 05/08/2017 4:23 PM PDTProblem: Discharge Planning Goal: Patient will be discharged in a safe manner Outcome: Improving This medical case worker spoke with patient's POA and son Jacklyn Siddiqi regarding patient's discharg e plan. Son states that he now lives at [facility]. He was living at [facility] prior to [facility]. He has been living at [facility] about a month. Son states that they [...] they do go on daily walks [facility]. Son states that he would appreciate case management to follow up with the RN at [facility] as well with him in coordinating a discharge back there. Son states that he is his transp ortation and will transport him back when stable. This CM called the RN at [facility] at [phone]. [facility] states that there has been a [...] a time to come assess patient. If [facility] will not accept this patient back to their [facility]-TER[facility], we may need to consider a SNF. [...] PM PDTPt's Telemetry reading HR 150's-200. This JOURNEYMAN PIPE FITTER we nt over to assess pt. Who was lying in bed talking on the phone with a family member. He den ies chest pain, SOB and/or a fluttering feeling in his chest. SBP 108/58. Pt.'[facility] RN [facility] at [facility]. EKG ordered and Dr. Philippe contacted about elevated HR concerns. Pt. To be transferred over to the ICU for closer monitoring. Electronically signed by Mary Cantu RN at 04/20 2:07 PM PDTD-C Instructions Provation - Peter Maciel MD - 05/08/2017 9:20 AM PDT Discharge Instructions for Upper Endoscopy Patient: Jacklyn Siddiqi : 1935 Acct: [id number] Exam Date: Monday, May 08, 2017 Doctor: Peter Maciel MD The chances of difficulty following this procedure are minimal. The following instruction s will assist you in your recovery. 1. Do Not eat or drink anything for 1 hour. Try sips of water first. If tolerated, resu me your regular diet or one recommended by your physician. 2. Do not drive, operate bety ReviewZAP, make critical decisions, or do activities that [...] If unable to reach your physician, call [facility] Emergency Department at Ext. [phone] Your [...] Temp: 36.5 C (97.7 F) lan of Care - Karin Herrera RRT - 05/08/2017 4:43 [...] 11:10 AM PDTPt had been at the DC this am and was heading back home an d pt fell twice this am once at the DC once at gas station. 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 | | | [...] | | n - | | | 18/ | | | 2017 | | | 11:11 | | | [...] | | | FICATI | | | ON?07/ | | | 18 | | | 7 | | | 11:07? | | | SIDDIQI, | | | JACKLYN | | | ?MRN: | | | [id number] | | | [id number] | | | his | | | [...] | | | ent/cd | | | [id number] | | | [id number] | | | [...] | | | St. | | | [place] | | | y H. | | [...] | | | St. | | | [place] | | | y H. | | [...] | | | St. | | | [place] | | | y H. | | [...] | | | St. | | | [place] | | | y | | | [...] + | [facility] | [address] | [place] | [phone] | | [facility] | | [address] | | | - LABORATORY | | | | + + + + + Protime INR (05/15/2017 4:24 AM PDT) + + + + + + | Component | Value | Ref Range | Performed | Pathologist | | | | | At | Signature | + + + + + + | Prothrombin | 16.7 (H) | 11.3 - 13.9 | [facility] | | | Time | | seconds | [facility] | | | | | | MEDICAL | | | | | | CENTER - | | | | | | LABORATORY | | + + + + + + | INR | 1.32 (H)Comment: Usual | 0.90 - 1.10 | [facility] | | | | Oral Anticoagulation | [...] [address] | [place] | [phone] | | [facility] | | [address] | | | - LABORATORY | | [...] | | | | | mg/dL | [facility] | | | | | | MEDICAL | | | | | | CENTER - | | | | | | LABORATORY | | + + + + + + | eGFR, | 58 (L)Comment: | >=60 | [facility] | | | non- | GLOMERULAR FILTRATION | mL/min/1.73m2 | [facility] | | | [place]uvian | RATE,ESTIMATED | | MEDICAL | | | | mL/min/1.03s4Ahmb than | | CENTER - | | [...] [address] | [place] | [phone] | | [facility] | | [address] | | | - LABORATORY | | [...] | MPV | 8.3 | fL | [facility] | | | [...] + | [facility] | [address] | [place] | [phone] | | [facility] | | [address] | | | - LABORATORY | | [...] | | | | BINU MACK MD ([id number]) | | | | | | on [...] | | | | BINU MACK MD ([id number]) | | | | | | on [...] was | | | taken to the labelling machine operator. 1 g of cefazolin was given intravenously. | | | Patient was hooked up to EKG, pulse oximetry and blood pressure | | | monitoring. All parameters were kept stable during procedure. The | | | [facility] [place] pacemaker technical service representative was present in the operating room. [...] the | | | pocket. A 6 Australian sheath was placed over the guidewire and the core | | | was removed. The additional guidewires were inserted through the | | | sheath. The sheath was then removed. The guidewires were secured | | | by hemostat, leaving one guidewire to be utilized for placement of an | | | 8 Australian safe sheath. A safe sheath core and [...] same technique as mentioned above, another 8 [place] safe sheath | | | was utilized [...] #: LPA 1200 M, serial #: [id number]. C. | | | Ventricular lead: [place], length 52 cm, model #: LPA 1200M, serial | | | #: [id number]. PACEMAKER TESTING: A. Atrial lead: Sensing 2.4 [...] #: PM 2272, serial #: | | |[id number]. | | | | | |B. Atrial lead: [place], length 46 cm, model #: LPA 1200 M, | | |serial #: [id number]. | | | | | |C. Ventricular lead: [place], length 52 cm, model #: LPA 1200M, | | |serial #: [id number]. | | | | | |PACEMAKER TESTING: [...] obtained, the patient was taken to the labelling machine operator. | | 1 g of cefazolin was given intravenously. Patient was hooked up to EKG, pulse oximetry | | and blood pressure monitoring. All parameters were kept stable during procedure. The | | [facility] [place] pacemaker technical service representative was present in the operating room. [...] into the pocket. A 6 | | Australian sheath was placed over the guidewire and the core was removed. The additional | | guidewires were inserted through the sheath. The sheath was then removed. The | | guidewires were secured by hemostat, leaving one guidewire to be utilized for placement | | of an 8 Australian safe sheath. A safe sheath core and [...] as mentioned | | above, another 8 Australian safe sheath was utilized to introduce an [...] Rupert, model #: PM 2272, serial #: [id number].B. | | Atrial lead: [place], length 46 cm, model #: LPA 1200 M, serial #: [id number].C. | | Ventricular lead: [place], length 52 cm, model #: LPA 1200M, serial #: [id number] | | [id number].PACEMAKER TESTING: A. Atrial lead: Sensing 2.4 mV, [...] + | [facility] [facility] | [address] | [place] | [phone] | | [facility] | | [address] | | | - LABORATORY | | [...] | | | | | | Performed: [facility], [address] | | | | | | [address], [place] | | | | | | [address] | | | | + + + + + + + + | Specimen | + + | Blood | + + + + + + + | Performing | Address | City/State/Zipcode | Phone Number | | Organization | | | | + + + + + | [facility] | [address] | [place] [address] | [phone] | + + + + + Ferritin [...] + | [facility] | [address] | [place] | [phone] | | [facility] | | [address] | | | - LABORATORY | | [...] (L) | 20.0 - 55.0 % | [facility] | | | SATURATION | | | [...] [address] | [place] | [phone] | | [facility] | | [address] | | | - LABORATORY | | [...] | | | | | | Performed: [facility], [address] | | | | | [address], [place] | | | | | | [address] | | | | + + + + + + + + | Specimen | + + | Blood | + + + + + + + | Performing | Address | City/State/Zipcode | Phone Number | | Organization | | | | + + + + + | [facility] | 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 TRELL LEWIS ANTONY Age | | | 81 year(s) Interpreting | | | MARGE FLOR | | | Log Manager CRUZITO BIRD MD Gender | | | Male Nurse | | | Stress Manager Economic Procedure Type of Study TTE procedure: ECHO [...] | 51.23 ml | | | EF Rthmljuzy69% Left Ventricle Diastolic Dimension: 4.23 | | [...] Volume: 51.23 ml | | | EF Nzgfoptek56% | | | | | | Left [...] Demographics Patient Name AMANDA VILLASENOR Room Number 457 Patient | | Number [id number] Date of Study 05/13/2017 Visit Number [id number] | | Referring Physician CRUZITO BIRD MD Number | | MARGE FLOR Date of 1935 | | Motorboat Mechanic Inboard/Outboard TRELL LEWIS RDCS Age 81 year(s) Interpreting | | MARGE FLOR Log Manager CRUZITO | | MD MARGE Gender Male [...] LA Volume: 51.23 ml EF | | Cntvlxzgt87% Left Ventricle Diastolic Dimension: 4.23 cm Systolic [...] LA Volume: 51.23 ml | | EF Kbixorllb56% | | | | Left Ventricle | [...] | Segmented | | K/uL | [facility] | | | Neutrophils | | | MEDICAL | | | | | | CENTER - | | | | | | LABORATORY | | + + + + + + | Absolute | 2.70 | 1.00 - 3.40 | [facility] | | | Lymphocytes | | K/uL | [facility] | | | | | | MEDICAL | | | | | | CENTER - | | | | | | LABORATORY | | + + + + + + | Absolute | 0.71 | 0.00 - 0.80 | [facility] | | | Monocytes | | K/uL | [facility] | [...] | | Counted | | | [facility] | | [...] Hypochromas | Slight (A) | (none) | [facility] | | | ia | | | [facility] | | [...] [address] | [place] | [phone] | | [facility] | | [address] | | | - LABORATORY | | [...] [address] | [place] | [phone] | | [facility] | | [address] | | | - LABORATORY | | [...] | GLOMERULAR FILTRATION | mL/min/1.73m2 | [facility] | | | [place]ian | RATE,ESTIMATED | | MEDICAL | | | | mL/min/1.63y7Owze than | | CENTER - | | [...] | | | | | mg/dL | [facility] | | | | | [...] [address] | [place] | [phone] | | [facility] | | [address] | | | - LABORATORY | | [...] [address] | [place] | [phone] | | [facility] | | [address] | | | - LABORATORY | | [...] This is | 0.60 - 1.30 | [facility] | | | | an appended report. | mg/dL | [facility] | | | | These results have been | | MEDICAL | | | | appended to a previously | | CENTER - | | | | preliminary verified | | LABORATORY | | | | report. | | | | + + + + + + | eGFR, | 36 (L)Comment: | >=60 | [facility] | | | non- | GLOMERULAR FILTRATION | mL/min/1.73m2 | [facility] | | | [place]uvian | RATE,ESTIMATED | | MEDICAL | | | | mL/min/1.25d4Latv than | | CENTER - | | [...] + | [facility] | [address] | [place], [place] | [phone] | | [facility] | | [address] | | | - LABORATORY | | [...] [address] | [place] | [phone] | | [facility] | | [address] | | | - LABORATORY | | [...] [address] | [place] | [phone] | | [facility] | | [address] | | | - LABORATORY | | | | + + + + + Culture, Blood (05/12/2017 11:07 AM PDT) + + + + + + | Component | Value | Ref Range | Performed | Pathologist | | | | | At | Signature | + + + + + + | Culture | No growth after 5 days | | [facility] | | | | incubation. | | [...] [address] | [place] | [phone] | | [facility] | | [address] | | | - LABORATORY | | [...] | | | | BINU MACK MD ([id number]) | | | | | | on [...] non- | GLOMERULAR FILTRATION | mL/min/1.73m2 | [facility] | | | [place]ian | RATE,ESTIMATED | | MEDICAL | | | | mL/min/1.11a7Uxvc than | | CENTER - | | [...] + | [facility] | [address] | [place] | [phone] | | [facility] | | [address] | | | - LABORATORY | | [...] | MPV | 7.7 | fL | [facility] | | | [...] [address] | [place] | [phone] | | [facility] | | [address] | | | - LABORATORY | | [...] arthroplasty changes. Multiple lead wires overlie the eopyg-yw-sjiu. | | | Overall unchanged aeration of [...] | | Multiple lead wires overlie the uyooz-js-lkiv. | | | | Overall unchanged aeration [...] | Segmented | | K/uL | [facility] | | | Neutrophils | | | MEDICAL | | | | | | CENTER - | | | | | | LABORATORY | | + + + + + + | Absolute | 7.87 (H) | 1.00 - 3.40 | [facility] | | | Lymphocytes | | K/uL | [facility] | | | | | | MEDICAL | | | | | | CENTER - | | | | | | LABORATORY | | + + + + + + | Absolute | 0.37 | 0.00 - 0.80 | [facility] | | | Monocytes | | K/uL | [facility] | [...] + | [facility] | [address] | [place] | [phone] | | [facility] | | [address] | | | - LABORATORY | | [...] | MPV | 8.0 | fL | [facility] | | | [...] [address] | [place] | [phone] | | [facility] | | [address] | | | - LABORATORY | | | | + + + + + Magnesium (05/10/2017 8:33 PM PDT) + +-------+ + + + | Component | Value | Ref Range | Performed | Pathologist | | | | | At | Signature | + +-------+ + + + | Magnesium | 2.2 | 1.8 - 2.5 mg/dL | [facility] | | | | [...] + | [facility] | [address] | [place] | [phone] | | [facility] | | [address] | | | - LABORATORY | | [...] (H) | 70 - 109 mg/dL | [facility] | | | | [...] | 1.28 | 0.60 - 1.30 | [facility] | | | | | mg/dL | [facility] | | | | | | MEDICAL | | | | | | CENTER - | | | | | | LABORATORY | | + + + + + + | eGFR, | 54 (L)Comment: | >=60 | [facility] | | | non- | GLOMERULAR FILTRATION | mL/min/1.73m2 | [facility] | | | [place]ian | RATE,ESTIMATED | | MEDICAL | | | | mL/min/1.39b5Yxrm than | | CENTER - | | [...] | 8.8 | 8.3 - 10.5 | [facility] | | | | | mg/dL | [facility] | | | | | | MEDICAL | | | | | | CENTER - | | | | | | LABORATORY | | + + + + + + | BUN/Creatin | 21.1 | | [facility] | | | ine Ratio | | | [facility] | | [...] + | [facility] | [address] | [place] | [phone] | | [facility] | | [address] | | | - LABORATORY | | | | + + + + + PTT (05/10/2017 8:33 PM PDT) + +--------+ + + + | Component | Value | Ref Range | Performed | Pathologist | | | | | At | Signature | + +--------+ + + + | aPTT | 42 (H) | 22 - 36 seconds | [facility] [...] [address] | [place] | [phone] | | [facility] | | [address] | | | - LABORATORY | | [...] [address] | [place] | [phone] | | [facility] | | [address] | | | - LABORATORY | | [...] | | | | BINU MACK MD ([id number]) | | | | | | on [...] | | | | BINU MACK MD ([id number]) | | | | | | on [...] | Top Tube | | | [facility] | | | | | | MEDICAL [...] [address] | [place] | [phone] | | [facility] | | [address] | | | - LABORATORY | | [...] | | | Lavender | | | [facility] | | | Top Tube | [...] [address] | [place] | [phone] | | [facility] | | [address] | | | - LABORATORY | | [...] [address] | [place] | [phone] | | [facility] | | [address] | | | - LABORATORY | | [...] | | | | | mg/dL | [facility] | | | | | | MEDICAL | | | | | | CENTER - | | | | | | LABORATORY | | + + + + + + | eGFR, | 43 (L)Comment: | >=60 | [facility] | | | non- | GLOMERULAR FILTRATION | mL/min/1.73m2 | [facility] | | | [place]ian | RATE,ESTIMATED | | MEDICAL | | | | mL/min/1.95i8Erdf than | | CENTER - | | [...] + + | [facility] | [address] | [place], [place] | [phone] | | [facility] | | [address] | | | - LABORATORY | | [...] + | [facility] | [address] | [place], [place] | [phone] | | [facility] | | [address] | | | - LABORATORY | | [...] + | [facility] | [address] | [place] | [phone] | | [facility] | | [address] | | | - LABORATORY | | [...] | | chromogenic agar method | | [facility] | | | [...] [address] | [place] | [phone] | | [facility] | | [address] | | | - LABORATORY | | [...] | | | | BINU MACK MD ([id number]) | | | | | | on [...] | | | + +---------+ + + TORIBIO (05/08/2017 9:20 AM PDT) + + | Specimen | + + | | + + + + -+ | Narrative | Performed At | + + -+ | | [facility] | | GastroenterologyPatient Name: Jacklyn SiddiqiProcedure Date: 05/08/2017 | [facility] | | 9:20 AMMRN: [id number] #: [id number] of : | | | 1935dmit Type: InpatientAge: 81Room: [facility] 02Gender: MaleNote | | | Status: FinalizedAttending MD: Peter Maciel , [facility] DOTHANrocedure: | | | Upper GI endoscopyIndications: Gastrointestinal | | | bleeding of unknown originProviders: Peter Maciel MD, | | | Malka Dueñas RN, Amelie Cabral | | | Sukumar, Manager Economic, Miguel Galicia MD | | | (Anesthesia [...] | | | the anesthesiologist and the photonic laboratory technician in the pre-procedure | | | [...] 9:35:52 AMScope Out: 9:41:03 AM [facility]. | | | [facility], [address] [place] [address] | | | [phone] | | | - A small amount [...] |Scope Out: 9:41:03 AM | | | [facility], [address], [place] | | | [address] | | + + -+ + +---------+ + + | Performing | Address | City/State/[facility] | Phone Number | | Organization | [...] 2.3 | 1.8 - 2.5 mg/dL | [facility] | | | | [...] + | [facility] | [address] | [place] | [phone] | | [facility] | | [address] | | | - LABORATORY | | [...] | | | | mmol/L | [facility] | | | | [...] 1.42 (H) | 0.60 - 1.30 | [facility] | | | | | mg/dL | [facility] | | | | | | MEDICAL | | | | | | CENTER - | | | | | | LABORATORY | | + + + + + + | eGFR, | 48 (L)Comment: | >=60 | [facility] | | | non- | GLOMERULAR FILTRATION | mL/min/1.73m2 | [facility] | | | [place]ian | RATE,ESTIMATED | | MEDICAL | | | | mL/min/1.17w6Ekwf than | | CENTER - | | [...] [address] | [place] | [phone] | | [facility] | | [address] | | | - LABORATORY | | [...] | MPV | 8.3 | fL | [facility] | | | [...] + | [facility] | [address] | [place] | [phone] | | [facility] | | [address] | | | - LABORATORY | | [...] | | | | mmol/L | [facility] | | | | [...] eGFR, | 50 (L)Comment: | >=60 | [facility] | | | non- | GLOMERULAR FILTRATION | mL/min/1.73m2 | [facility] | | | [place] | RATE,ESTIMATED | | MEDICAL | | | | mL/min/1.17s6Aecy than | | CENTER - | | [...] + | [facility] | [address] | [place] | [phone] | | [facility] | | [address] | | | - LABORATORY | | [...] [address] | [place] | [phone] | | [facility] | | [address] | | | - LABORATORY | | [...] [address] | [place] | [phone] | | [facility] | | [address] | | | - LABORATORY | | | | + + + + + Ammonia (05/07/2017 5:24 PM PDT) + +--------+ + + + | Component | Value | Ref Range | Performed | Pathologist | | | | | At | Signature | + +--------+ + + + | Ammonia | <9 (L) | 11 - 35 umol/L | [facility] | | | | | [...] + | [facility] | [address] | [place] | [phone] | | [facility] | | [address] | | | - LABORATORY | | | | + + + + + PTT (05/07/2017 5:24 PM PDT) + +-------+ + + + | Component | Value | Ref Range | Performed | Pathologist | | | | | At | Signature | + +-------+ + + + | aPTT | 34 | 22 - 36 seconds | [facility] | | | | | [...] + | [facility] | [address] | [place] | [phone] | | [facility] | | [address] | | | - LABORATORY | | [...] [address] | [place] | [phone] | | [facility] | | [address] | | | - LABORATORY | | [...] + | [facility] | [address] | [place] | [phone] | | [facility] | | [address] | | | - LABORATORY | | [...] - 1.030 | [facility] | | | [place], | | | [facility] | | [...] + + | Remark | | | [facility] | | | | [...] + | [facility] | [address] | [place], [place] | [phone] | | [facility] | | [address] | | | - LABORATORY | | [...] | | | | BINU MACK MD ([id number]) | | | | | | on [...] acute abnormality. Dictated and Signed by: Kiel | | | MD Devin Electronically signed: 05/07/2017 12:13 PM | | [...] | | | | | | [employer] | | | | | [...] [address] | [place] | [phone] | | [facility] | | [address] | | | - LABORATORY | | [...] ST. | [address] | [place] | [phone] | | [facility] | | [address] | | | - LABORATORY | | [...] | | | | | | [facility] | | | | | | MEDICAL [...] eGFR, | 53 (L)Comment: | >=60 | [facility] | | | non- | GLOMERULAR FILTRATION | mL/min/1.73m2 | [facility] | | | [place]ian | RATE,ESTIMATED | | MEDICAL | | | | mL/min/1.59h8Acov than | | CENTER - | | [...] | | | | | mg/dL | [facility] | | | | | | MEDICAL | | | | | | CENTER - | | | | | | LABORATORY | | + + + + + + | BUN/Creatin | 26.4 | | [facility] | | | ine Ratio | | | [facility] | | [...] [address] | [place] | [phone] | | [facility] | | [address] | | | - LABORATORY | | [...] [address] | [place] | [phone] | | [facility] | | [address] | | | - LABORATORY | | | | + + + + + documented in this encounter Visit Diagnoses Not on filedocumented in this encounter Administered Medications + +--------+---------+------+------+------+ [...] PDT | | | | +-------+ +--------+---+---+ + +---+ | | | + +---+ [...] | | | | | 05/07/17 at 3 | | | | | | + [...] +-------+---+---+ +---+---+ | | | +---+---+ + + + +---------+-------+---+ | norepinephrine in [...] | | | + + +---------+ +---+ + +---+ | | | + +---+ [...] PDT | | | | +-------+ +--------+---+---+ + +---+ | | | + +---+ | warfarin per pharmacy [facility] | | | CONSULT, Starting Danis 05/14/17 at | | | 1606, What is the goal INR range | | | for this patient? 2-3 | | + +---+ | | | + +---+ documented in this encounter
--- OUTSIDE RECORDS SUMMARY | ~2020-05-18 | XMS | Encounter Summary ---
Demographics + + + | Address | [address] | | | [place] [address] | + + + | Home Phone | | + + + | Preferred Language | Unknown | + + + | Marital Status | | + + + | Sabianist Affiliation | 1061 | + + + | Race | Unknown | + + + | Ethnic Group | Unknown | + + + Author + + + | Author | [facility] | | | and [place] | + + + | Organization | [facility] | | | and [...] Team Providers + +------+ + | Care Fur Plucker Name | Role | Phone | + [...] 2019 | | CARDIOLOGY [address] | SCIENTIFIC SOFTWARE ENGINEER [address] | | | | | [place], | [place] | | | | | [place] [address] | [address] | | | | | [phone] | | | +--------+ + + + [...] 2020 | Monitor | | [facility] | Interrogation | | | | | [place], | (Primary Dx); | | | | | [place] [address] | Pacemaker Dual | | | | | [phone] | Chamber, MRI | | | | | | compatible, 05/14/17 | | | | | | [facility]; | | | | | | 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
--- OUTSIDE RECORDS SUMMARY | ~2020-05-18 | XMS | Encounter Summary ---
Demographics + + + | Address | [address] | | | [place] [address] | + + + | Home Phone [...] | | + + +---------+ + | hCris Siddiqi | ECON | Unknown | | + + +---------+ + | Cassandra Guthrie | ECON | Unknown | | + + +---------+ + Care Team Providers + +------+ + | Care Enterprise Project Manager Name | Role | Phone | [...] Monitor | CARDIOLOGY [address] | [address] | Interrogation | | | | [place], | [place], | (Primary Dx); | | | | [place] [address] | [place] [address] | Pacemaker Dual | | | | [phone] | [phone] | Chamber, MRI | | | | [...] Pacemaker; Tachycardia-bradycardia syndrome (HCC)Date of Remote Interrogation: 01/26/2020 Refer to Paceart documentation and remote PDF scanned into [facility] for remote interrogation re sults. Data collected by Nancy Dougherty RN Presenting rhythm: sinus rhythm atrial paced ventricular sensed between 60-65 beats. 2 mode switch episodes accounting for <1% of the time. The longest occurred 01/25/2020 at 9: 12 AM for 8 seconds. EGM is consistent with sinus rhythm AV paced with retrograde conduction with rate 68-80 beats. 0 ventricular high rate episodes. PVC singles 12 PVC singles 12/month PVC runs 0 PVC runs 0/month Histogram good. Battery longevity 5.8-9.8 years. Atrial lead in high output mode at 5.00V. Otherwise, apparent normal and stable device fun ction. Device interrogation due in office in December 2020. Johnny Li notified. documented in this encounter Plan of Treatment +--------+ + + + + | Date | Type | Specialty | Care Team | Description | +--------+ + + + + | 07/20/ | Implant | Cardiology | Cruzito Bird, | Remote Device | 2019 | Monitor | | [address] [facility] | Interrogation | | | | | 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 Data collected by Nancy Rossi | | | SAMEER Dougherty Presenting rhythm: sinus rhythm atrial paced ventricular | | | sensed between 60-65 beats.2 mode switch episodes accounting for <1% | | | of the time. The longest occurred 01/25/2020 at 9:12 AM for 8 seconds. | | | EGM is consistent with sinus rhythm AV paced with retrograde | | | conduction with rate 68-80 beats.0 ventricular high rate episodes. | | | PVC singles 12 PVC singles 12/monthPVC runs | | | 0 PVC runs 0/monthHistogram good. Battery longevity | | | 5.8-9.8 years.Atrial lead in high output mode at 5.00V. Otherwise, | | | apparent normal and stable device function.Device interrogation due in | | | office in December 2020.Johnny Li notified. | | |PVC singles 12 PVC singles 12/month | | |PVC runs 0 PVC runs 0/month | | |Histogram good. Battery longevity 5.8-9.8 years. | | |Atrial lead in high output mode at 5.00V. Otherwise, apparent | | |normal and stable device function. | | |Device interrogation due in office in December 2020. | | |Johnny Li notified. | | | | | + [...]
--- OUTSIDE RECORDS SUMMARY | ~2020-05-18 | XMS | Encounter Summary ---
Demographics + + + | Address | [address] | | | [place] [address] | + + + | Home Phone | | + + + | Preferred Language | Unknown | + + + | Marital Status | | + + + | Latter-Day Affiliation | 1061 | + + + [...] Team Providers + +------+ + | Care Painter Helper Sign Name | Role | Phone | + +------+ + | Emelina [place] MD | PCP | Unavailable | + +------+ + Encounter Details +--------+ + + + + | Date | Type | Department | Care Team | Description | +--------+ + + + + | 03/21/ | Hospital | [facility] | Wilfredo Woodson, | | | 2016 | Encounter | MED [facility] | PT [address] | | | | | PHYSICAL THERAPY | [place] | | | | | [address] [place] | [phone] | | | | | [place] [address] | | | | | | [phone] | | | +--------+ + + + [...] tablet by | | 0 | | 05/10/201 | | 1000 MCG CAPS | mouth [...] Interrogation | | | | | 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
--- OUTSIDE RECORDS SUMMARY | ~2020-05-18 | XMS | Encounter Summary ---
Demographics + + + | Address | [address] | | | [place] [address] | + + + | Home Phone | | + + + | Preferred Language | Unknown | + + + | Marital Status | | + + + | Confucianism Affiliation | 1061 | + + + [...] Team Providers + +------+ + | Care Electric Cell Tender Name | Role | Phone | + [...] + | 07/22/ | Telephone | [facility] | Cruzito Bird, | Other (Concern for | | 2019 | | MAMIE [address] | [address] | RA lead function) | | | | [place], | [place], | | | | | [place] [address] | [place] [address] | | | | | [phone] | [phone] | | | | | | | [...] | 2019 | Monitor | | [address] [facility] | Interrogation | | | | | [place], | (Primary Dx); | | | | | [place] [address] | Pacemaker Dual | | | | | [phone] | Chamber, MRI | | | | [...] [place] | | | | | | [address] | | | | | | | | +--------+ + + + + documented as of this encounter Visit Diagnoses Not on filedocumented in this encounter"
--- OUTSIDE RECORDS SUMMARY | ~2020-05-18 | XMS | Encounter Summary ---
Demographics + + + | Address | [address] | | | [place] [address] | + + + | Home Phone | | + + + | Preferred Language | Unknown | + + + | Marital Status | | + + + | Methodist Affiliation | 1061 | + + + | Race | Unknown | + + + | Ethnic Group | Unknown | + + + Author + + + | Author | [facility] | | | and [place] | + + + | Organization | [facility] | | [...] Team Providers + +------+ + | Care Fashion Journalist Name | Role | Phone | + [...] + | 07/22/ | Telephone | [facility] | Cruzito Bird, | Other (Concern for | | 2019 | | MAMIE [address] | [address] [place] | RA lead function) | | | | [place], | [place], | | | | | [place] [address] | [place] [address] | | | | | [phone] | [phone] | | | | | | | [...] Monitor | | [address] [facility] | Interrogation | | | | | [place], | (Primary Dx); | | | | | [place] [address] | Pacemaker Dual | | | | | [phone] | Chamber, MRI | | | | [...] [place] | | | | | | [address] | | | | | | | | +--------+ + + + + documented as of this encounter Visit Diagnoses Not on filedocumented in this encounter"
--- OUTSIDE RECORDS SUMMARY | ~2020-05-18 | XMS | Encounter Summary ---
Demographics + + + | Address | [address] | | | [place] [address] | + + + | Home Phone | | + + + | Preferred Language | Unknown | + + + | Marital Status | | + + + | Taoism Affiliation | 1061 | + + + | Race | Unknown | + + + | Ethnic Group | Unknown | + + + Author + + + | Author | [facility] | | | and [place] | + + + | Organization | [facility] | | [...] Team Providers + +------+ + | Care Internal Grinder Tender Name | Role | Phone | [...] Monitor | CARDIOLOGY [address] | [address] [place] | Interrogation | | | | [place], | [place], | (Primary Dx); | | | | [place] [address] | [place] [address] | Pacemaker Dual | | | | [phone] | [phone] | Chamber, MRI | | | | [...] Paceart documentation and remote PDF scanned into [facility] for remote interrogation re sults. Data [...] | | [address] [facility] | Interrogation | | | | | 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 Data [...]
--- OUTSIDE RECORDS SUMMARY | ~2020-05-18 | XMS | Encounter Summary ---
Demographics + + + | Address | [address] | | | [place] [address] | + + + | Home Phone | | + + + | Preferred Language | Unknown | + + + | Marital Status | | + + + | Confucianism Affiliation | 1061 | + + + | Race | Unknown | + + + | Ethnic Group | Unknown | + + + Author + + + | Author | [facility] | | | and [place] | + + + | Organization | [facility] | | | [...] Team Providers + +------+ + | Care Plush Brusher Name | Role | Phone | + [...] | CARDIOLOGY [address] | [address] | hypertension | | | | [place], | [place], | (Primary Dx) | | | | [place] [address] | [place] [address] | | | | | [phone] | [phone] | | | | | | | [...] that time, patient was seen at [facility] for edema seen on 07/08-07/12 because of [...] is physically active walking the hallways of [employer] a few times a day. 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 Patient was seen at [facility] for edema seen on 07/08-07/12. At [...] He is in a class I of [place] Heart Association functional class. There is no [...] 73 Y.O.(2) and Vascular disease (1). His IMR2YY3-YMEq score is 4, which gives an estimated [...] control strategy. 4. Coronary artery disease involving [place] coronary artery of [place] heart without angina pectoris: A. [facility] 11/14/2004 shows preserved left [...] weight reduction. 8. Follow-up in three months. I, Melba Thompson, am acting as a scribe on behalf of, and in the presence of Basia hodge MD. I have reviewed and edited this note. Melba Thompson Fruit Loader Machine Operator 07/31/2018 I, Basia Bird MD, personally performed the services described in this documentation, as scribed in my presence and it is both accurate and complete. Melba Thompson, Med Ass t 07/31/2018 10:41 Electronically signed by: Basia Bird MD [facility] 07/31/2018 Portions of this chart may have been created with [employer] voice recognition software. Occasi onal wrong-word or sound-alike substitutions may have occurred due to the inherent carter itations of voice recognition software. Please read the chart carefully and recognize, using context, where these substitutions have occurred documented in this encounter Miscellaneous Notes Addendum Note - Isabel Colbert RN - 07/31/2018 10:00 AM PDT Addended [...] Dx); | | | | | [place] [address] | Pacemaker Dual | | | | | [phone] | Chamber, MRI | | | | [...] [place] | | | | | | [address] | | | | | | | [...] BASIA | | | | | | ([id number]) on 07/31/2018 | | | | | [...] + | Pacemaker Dual Chamber, MRI compatible, 7/25/17 [facility] Cardiac pacemaker | | in situ | + + | 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
--- OUTSIDE RECORDS SUMMARY | ~2020-05-18 | XMS | Encounter Summary ---
Demographics + + + | Address | [address] | | | [place] [address] | + + + | Home Phone [...] Team Providers + +------+ + | Care Emergency Worker Name | Role | Phone | [...] 2017 | | CARDIOLOGY [address] | COLLETER [address] [place] | | | | | [place], | [place] | | | | | [place] [address] | [address] | | | | | [phone] | | | +--------+ + + + [...] Faxed lab orders to [facility] ..........................................Isabel Colebrt RN on 8 at 10:48 elephone Encount er - Isabel Colbert RN - 06/05/2018 9:23 AM PDTSpoke with patient and son Johnny. The son asked me to call him back at his home number after 15 minutes. Left message on Gimado to return call ..........................................Isabel Colbert RN on 8 at 9:47 elephone Eemly Schreiber ARNP - 06/05/2018 7:59 AM PDTPlease [...] 2019 | Monitor | | MD [address] [place] | Interrogation | | | | | 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
--- OUTSIDE RECORDS SUMMARY | ~2020-05-18 | XMS | Encounter Summary ---
Demographics + + + | Address | [address] | | | [place] [address] | + + + | Home Phone | | + + + | Preferred Language | Unknown | + + + | Marital Status | | + + + | Sabianist Affiliation | 1061 | + + + | Race | Unknown | + + + | Ethnic Group | Unknown | + + + Author + + + | Author | [facility] | | | and [place] | + + + | Organization | [facility] | | [...] Team Providers + +------+ + | Care Terra Cotta Mason Name | Role | Phone | + [...] | | CARDIOLOGY [address] | [address] [place] | | | | | [place], | [place], | | | | | [place] [address] | [place] [address] | | | | | [phone] | [phone] | | | | | | | [...] 11:03 AM PDTPatient requested that I call [facility] at to schedule appointments. Called and left a voicemail message for sarah Zhang to call us back to schedule the ira durham appointments: 1. WOUND CHECK/WALKER (Implanted on 05-14-17) 2. OC/2-3 [facility] HOSP FUP/HEART FAILURE/WALKER 3. OC/THR PACER-SUW/3 MO INITIAL/WALKER Patient will be a New Patient in our Outpatient clinic. see referral #[id number].Electronicall y signed by Katia Corey at 05/17/2017 [...] 2019 | Monitor | | MD [facility] | Interrogation | | | | | [place], | (Primary Dx); | | | | | [place] [address] | Pacemaker Dual | | | | | [phone] | Chamber, MRI | | | | [...] [place] | | | | | | [id number] | | | | | | | | +--------+ + + + + documented as of this encounter Visit Diagnoses Not on filedocumented in this encounter"
--- OUTSIDE RECORDS SUMMARY | ~2020-05-18 | XMS | Encounter Summary ---
Demographics + + + | Address | [address] | | | [place] [address] | + + + | Home Phone | | + + + | Preferred Language | Unknown | + + + | Marital Status | | + + + | Judaism Affiliation | 1061 | + + + | Race | Unknown | + + + | Ethnic Group | Unknown | + + + Author + + + | Author | [facility] | | | and [place] | + + + | Organization | [facility] | | | [...] Team Providers + +------+ + | Care Search Engine Optimizer Name | Role | Phone | + [...] Monitor | CARDIOLOGY [address] | [address] [place] | Interrogation | | | | [place], | [place], | (Primary Dx); | | | | [place] [address] | [place] [address] | Pacemaker Dual | | | | [phone] | [phone] | Chamber, MRI | | | | [...] Paceart documentation and remote PDF scanned into [facility] for remote interrogation re sults. Data [...] | | 2019 | Monitor | | [address] [place] [address] | Interrogation | | | | | [place], | (Primary Dx); | | | | | [place] [address] | Pacemaker Dual | | | | | [phone] | Chamber, MRI | | | | | | compatible, 05/14/17 | | | | | | [facility]; | | | | | | 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) | +--------+ + + + + | 03/18/ | Office | Cardiology | Emely Gabriel, | | | 2020 | Visit | | FLORIST DESIGNER [address] | | | | | | [facility] [place] | | | | | | [address] | | | | | | | [...] remote PDF scanned into | | | [facility] for remote interrogation results. Data collected [...]
--- OUTSIDE RECORDS SUMMARY | ~2020-05-18 | XMS | Encounter Summary ---
Demographics + + + | Address | [address] | | | [place] [address] | + + + | Home Phone | | + + + | Preferred Language | Unknown | + + + | Marital Status | | + + + | Worship Affiliation | 1061 | + + + [...] Team Providers + +------+ + | Care Poultry Pathologist Name | Role | Phone | + +------+ + | Antonio Paulino MD | PCP | | + +------+ + Reason for Visit + + + | Reason | Comments | + + + | Wound Check | | + + + Encounter Details +--------+ + + + + | Date | Type | Department | Care Team | Description | +--------+ + + + + | 05/21/ | Clinical | [facility] | [place] Bird, | Tachycardia-bradycar | | 2017 | Support | CARDIOLOGY [address] | [address] [place] | pablo syndrome (HCC) | | | | [place], | [place], | (Primary Dx); | | | | [place] [address] | [place] [address] | Pacemaker Dual | | | | [phone] | [phone] | Chamber, MRI | | | | | | compatible, 05/14/17 | | | | | | [facility] | +--------+ + + + + Social [...] this encounter Last Filed Vital Signs + +---------+ + + | Vital Sign | Reading | Time Taken | Comments | + +---------+ + + | Blood Pressure | 96/50 | 05/21/2017 1:34 PM | | | | | PDT | | + +---------+ + + | Pulse | 78 | 05/21/2017 1:34 PM | left radial, | | | | PDT | irregular | + +---------+ + + | Temperature | - | - | | + +---------+ + + | Respiratory Rate | - | - | | + +---------+ + + | Oxygen Saturation | - | - | | + +---------+ + + | Inhaled Oxygen | - | - | | | Concentration | | | | + +---------+ + + | Weight | - | - | | + +---------+ + + | Height | - | - | | + +---------+ + + | Body Mass Index | - | - | | + +---------+ + + documented in this encounter Functional [...] of this encounter Patient Instructions Patient Instructions Nancy Dougherty RN - 05/21/2017 1:30 PM PDT1. Patient is instructed to have his monitor plugged in and placed bedside. A schedule is provided. 2. Patient was [facility] that [facility] Paulino, he was sched uled an appointment with Dr Paulino at [facility] on Saturday05/27/17 at 10 AM. No labs are needed. 3. Return to clinic for follow-up on 06/19/17 at 10:[address] Bird.Electronically s igned by Nancy Dougherty RN at 05/21/2017 1:41 PM PDT documented in this encounter Progress Notes Nancy Dougherty RN - 05/21/2017 1:30 PM PDTPatient is seen today one week status post pace maker implant. The wound is well approximated with no redness Moderate red to yellow resolv ing bruising and Some swelling. Patient complains of: shortness of breath during therapy and states he is unsure if he has had lightheadedness or dizziness but if he did it was because of therapy. Patient denies: fever, palpitations, chest pain and surgical pain. Patient is upset about being brought to his appointment today and repeatedly states he shou ld be at the [facility] and is upset he is missing his appointment with Dr Paulino because his facili ty dropped him off here instead. I ended up calling the [facility] for patient and scheduled an appo intment for him on Saturday05/27/17 at 10 AM. Patient is reminded of precautions including not raising left arm above 90 degrees, not lif ting more than 10 pounds for 3 weeks. Patient was instructed in pendulum arm swing and enco uraged to walk. 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
--- OUTSIDE RECORDS SUMMARY | ~2020-05-18 | XMS | Encounter Summary ---
Demographics + + + | Address | [address] | | | [place] [address] | + + + | Home Phone | | + + + | Preferred Language | Unknown | + + + | Marital Status | | + + + | Pentecostal Affiliation | 1061 | + + + [...] Team Providers + +------+ + | Care Director State Pharmacy Name | Role | Phone | + [...] Monitor | CARDIOLOGY [address] [place] | Interrogation | | | | [place], | [place], | (Primary Dx); | | | | [place] [address] | [place] [address] | Pacemaker Dual | | | | [phone] | [phone] | Chamber, MRI | | | | [...] Paceart documentation and remote PDF scanned into [facility] for remote interrogation re sults. Data [...] Interrogation | | | | | [place], | (Primary Dx); | | | | | [place] [address] | Pacemaker Dual | | | | | [phone] | Chamber, MRI | | | | | | compatible, 05/14/17 | | | | | | [facility]; | | | | | | 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) | +--------+ + + + + | 01/05/ | Office | Cardiology | Emely Gabriel, | | | 2020 | Visit | | DATA MANAGEMENT ASSOCIATE [address] | | | | | | [place] | | | | | | [address] | | | | | | | [...] remote PDF scanned into | | | [facility] for remote interrogation results. Data collected [...]
--- OUTSIDE RECORDS SUMMARY | ~2020-05-18 | XMS | Encounter Summary ---
Demographics + + + | Address | [address] | | | [place] [address] | + + + | Home Phone | | + + + | Preferred Language | Unknown | + + + | Marital Status | | + + + | Judaism Affiliation | 1061 | + + + | Race | Unknown | + + + | Ethnic Group | Unknown | + + + Author + + + | Author | [facility] | | | and [place] | + + + | Organization | [facility] | | [...] Team Providers + +------+ + | Care Consumer Affairs Director Name | Role | Phone | [...] | | | | | follow-up | [address] [place] [address] | [address] [place] [address] | | | | | Pacemaker | [place], | [place], | | | | | HTN | [place] [address] | [place] [address] | | | | | (hypertensio | Phone: | Phone: | | | | | n) CAD | [phone] | [phone] | | | | | (coronary | Fax: | Fax: | | | | | artery | [phone] | [phone] | | | | | disease) | [...] | | | | | | | CRANE HELPER IN | | | | | | [...] Visit | CARDIOLOGY [address] | [address] [place] | failure, unspecified | | | | [place], | [place], | heart failure type | | | | [place] [address] | [place] [address] | ([facility]) (Primary Dx) | | | | [phone] | [phone] | | | | | | | [...] inactive as he is living at the [facility] in [facility]. There is no chest pain or chest [...] System Implant; Surgeon: Basia Bird MD; Location: [facility] CV LAB UPPER GASTROINTESTINAL ENDOSCOPY N/A 05/08/2017 Procedure: EGD with Anesthesia; Surgeon: Peter Maciel MD; Location: [facility] MEDICAL PROCED URE UNIT Family History [...] and lab reports on 05/07/2017-05/16/2017. Refer to medical illustrator. ASSESSMENT: 1. Fall/syncope with atrial fibrillation with [...] is living at the rehab unit of [facility] in [facility]. There is no chest pain or chest [...] failure. He is in a class IIof [place] Heart Association functional class. There is bilateral [...] 4. Mechanical aortic valve replacement A. [facility] 11/14/2004 shows preserved left ventricular systolic function, [...] reviewed and edited this note. Melba Thompson Ui Developer With [employer] 06/19/2017 I, Basia Bird MD, personally performed the services described in this documentation, as scribed in my presence and it is both accurate and complete. Melba Thompson, Med Ass t 06/19/2017 10:37 Electronically signed by: Basia Bird MD [facility] 06/19/2017 Portions of this chart may have been created with [email or web address] voice recognition software. Occasi onal wrong-word or [...] Dx); | | | | | [place] [address] | Pacemaker Dual | | | | | [phone] | Chamber, MRI | | | | | | compatible, 05/14/17 | | | | | | [facility] [place]; | | | | | | 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) | +--------+ + + + + | 01/05/ | Office | Cardiology | Emely Gabriel, | | | 2020 | Visit | | LAUNDRY ATTENDANT [address] [place] | | | | | | [place] | | | | | | [address] | | | | | | | [...] MD | | | | | | ([id number]) on 06/20/2017 | | | | | [...]
--- OUTSIDE RECORDS SUMMARY | ~2020-05-18 | XMS | Encounter Summary ---
Demographics + + + | Address | [address] | | | [place] [address] | + + + | Home Phone [...] Team Providers + +------+ + | Care Purchasing Contracting Clerk Name | Role | Phone | [...] [place] | | | | | [place], [place] | [place] [address] | | | | | [address] | [phone] | | | | | [phone] | | | +--------+ + + + [...] Dx); | | | | | [place] [address] | Pacemaker Dual | | | | | [phone] | Chamber, MRI | | | | | | compatible, 05/14/17 | | | | | | [facility] [place]; | | | | | | 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) | +--------+ + + + + | 01/05/ | Office | Cardiology | Emely Gabriel, | | | 2020 | Visit | | SUPERVISOR BEATER ROOM [address] [place] | | | | | | [place] | | | | | | [address] | | | | | | | [...] Doppler was | | | perfomed at [facility]. Study: This was a technically | [...] TR Vmax: | | | 2.99 m/s Vibratory Pile Driver: SLAVA Authenticated by: Benjamín Garces | | [...] flow | | Doppler was perfomed at [facility].Study: This was a technically adequate | [...] cmLVPWd: 1.14 | | cmLVOT Area: 3.28 [id number] Diam: 2.04 cmLVEF MOD A4C: 58.49 %SV MOD A4C: 62.35 | | mlLVEDV MOD A4C: 106.59 mlLVLd A4C: 8.86 cmLVESV MOD A4C: 44.24 mlLVLs A4C: 7.68 | | cmLAESV(A-L): 68.77 mlLAESV Index (A-L): 34.73 ml/m2LAAs A2C: 21.27 [id number] A-L | | A2C: 73.45 mlLALs A2C: 5.23 cmLAAs A4C: 19.91 gj0ECULQ A-L A4C: 57.38 mlLALs | | A4C: 5.86 cmRAAs: 19.51 [id number] A-L: 66.78 mlRAESV MOD: 62.08 mlRALs: 4.84 | | cmAV maxP.28 mmHgAV meanP.19 mmHgAV Vmax: 1.82 m/Willie Vmean: 1.14 m/Willie | | VTI: 37.18 cmAVA Vmax: 2.10 cm2AVA (VTI): 2.06 [id number] Vmax: 0.00 cm2/m2AVAI | | (VTI): 0.00 cm2/m2LVOT maxP.43 mmHgLVOT meanP.09 mmHgLVSI Dopp: 38.79 | | ml/m2LVSV Dopp: 76.82 mlLVOT Vmax: 1.16 m/sLVOT Vmean: 0.65 m/sLVOT VTI: 23.36 | | cmMV A Kings: 0.74 m/sMV DecT: 173.87 msMV E Kings: 1.20 m/sMV E/A Ratio: 1.62MV | | PHT: 50.42 msMVA By PHT: 4.36 ax9Luskyx e': 0.03 m/sSeptal E/e': 36.80Lateral | | e': 0.06 m/sLateral E/e': 17.61RAP: 5 mmHgRVSP: 40.93 mmHgTR maxP.93 | | mmHgTR Vmax: 2.99 m/s Vibratory Pile Driver: DHAuthenticated by: Benjamín Rosa | | Date/Time: [...] |TR Vmax: 2.99 m/s | | | |Vibratory Pile Driver: | |Authenticated by: Benjamín Garces | |Report [...]
--- OUTSIDE RECORDS SUMMARY | ~2020-05-18 | XMS | Encounter Summary ---
Demographics + + + | Address | [address] | | | [place] [address] | + + + | Home Phone [...] Providers + +------+ + | Care Production Technician Name | Role | Phone | + +------+ + | Antonio Paulino MD | PCP | | + +------+ + Encounter Details +--------+ + + + + | Date | Type | Department | Care Team | Description | +--------+ + + + + | 05/18/ | Orders Only | [facility] | Provider, | | | 2018 | | SYSTEM GENERIC OP | [address] | | | | | CONVERSION [address] | [place] | | | | | [address] [place], [place] | [place] [address] | | | | | [address] | | | | | | [phone] | | | +--------+ + + + [...] | | [address] [facility] | Interrogation | | | | | [place], | (Primary Dx); | | | | | [place] [address] | Pacemaker Dual | | | | | [phone] | Chamber, MRI | | | | [...] [place] | | | | | | [address] | | | | | | | | +--------+ + + + + documented as of this encounter Visit Diagnoses Not on filedocumented in this encounter"
--- OUTSIDE RECORDS SUMMARY | ~2020-05-18 | XMS | Encounter Summary ---
Demographics + + + | Address | [address] | | | [place] [address] | + + + | Home Phone [...] Team Providers + +------+ + | Care Chemical Dependency Nurse Name | Role | Phone | + [...] | | CARDIOLOGY [address] | [address] [place] | pablo syndrome (HCC) | | | | [place], | [place], | | | | | [place] [address] | [place] [address] | | | | | [phone] | [phone] | | | | | | | [...] | 2020 | Monitor | | [address] [facility] | Interrogation | | | | | [place], | (Primary Dx); | | | | | [place] [address] | Pacemaker Dual | | | | | [phone] | Chamber, MRI | | | | | | compatible, 05/14/17 | | | | | | [facility] [place]; | | | | | | 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) | +--------+ + + + + | 01/05/ | Office | Cardiology | Emely Gabriel | | | 2020 | Visit | | INDIVIDUAL SMALL GROUP INSTRUCTOR [address] | | | | | | [place] | | | | | | [address] | | | | | | | [...]
--- OUTSIDE RECORDS SUMMARY | ~2020-05-18 | XMS | Encounter Summary ---
Demographics + + + | Address | [address] | | | [place] [address] | + + + | Home Phone | | + + + | Preferred Language | Unknown | + + + | Marital Status | | + + + | Hinduism Affiliation | 1061 | + + + | Race | Unknown | + + + | Ethnic Group | Unknown | + + + Author + + + | Author | [facility] | | | and [place] | + + + | Organization | [facility] | | | [...] Team Providers + +------+ + | Care Wood Engraver Name | Role | Phone | + +------+ + | Mauricio Goldberg | PCP | | | MD [...] + + | 02/23/ | Emergency | [facility] | Benjamín Candelaria, | Atrial flutter with | | 2016 | | [facility] | [address] [address] | rapid ventricular | | | | CENTER [address] | [address] | response (HCC) | | | | [place] | [place] [address] | (Primary Dx); | | | | [address] | [phone] | Palpitations; | | | | [phone] | | Supratherapeutic INR | | | | | Yordan Candelario MD | | | | | | [address] | | | | | | [place] | | | | | | [address] | | | | | | | [...] | | | | be sure the [facility] | | | | | | | [...] might be different from the matti rohit. [facility] Johnny Siddiqi Emergency Department Encounter Note [address] [place] [id number] PCP:Mauricio Goldberg MD [phone] CHIEF COMPLAINT: Chief Complaint Patient presents with Tachycardia referal from [facility] nurse ED Room: ED08/ED08 TRIAGE: ED Triage [...] INR goal is 2-3, surgery done at [facility] Hypertension Liver cirrhosis (HCC) CVA (cerebral infarction) -2014 lacunar (not stated as new nor old) Dementia Alcoholic cirrhosis (HCC) 2003 CT scan 2003 at [facility] Endocarditis 2009 Enterococcus 6 weeks Amp + Gent PSA elevation 2008 Pt declined Bx then Peripheral vertigo 2012 BPPV left Venous ulcer (HCC) 2013 Leg Retinal detachment 2010 CAD (coronary artery disease) 2004 Had CABG to LAD (for 80-90% LAD) surgery done at [facility] Pulmonary HTN (HCC) Severe on Echo [...] samy Bunn at [facility] in [place] starting Saturday morning and be sure the [facility] calls you every day with [...] were reviewed along with EMS notes and group home record s if applicable. (See chart for [...] this chart may have been created with [employer] voice recognition software. Occasi onal wrong-word or [...] | Monitor | | MD [address] | Interrogation | | | | | [place], | (Primary Dx); | | | | | [place] [address] | Pacemaker Dual | | | | | [phone] | Chamber, MRI | | | | | | compatible, 05/14/17 | | | | | | [facility] Rud[facility]; | | | | | | 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) | +--------+ + + + + | 01/05/ | Office | Cardiology | Emely Gabriel, | | | 2020 | Visit | | STOCKRO[employer] ASSOCIATE [address] | | | | | | [place], [place] | | | | | | [address] | | | | | | | [...] 1.001 - 1.030 | | | | [place], | | | | | | [facility], [...] [address] | [place] | [phone] | | [facility] | | [address] | | | - LABORATORY | | [...] 1.51 (H) | 0.60 - 1.30 | [facility] | | | | | mg/dL | [facility] | | | | | | MEDICAL | | | | | | CENTER - | | | | | | LABORATORY | | + + + + + + | eGFR, | 44 (L)Comment: | >=60 | [facility] | | | non- | GLOMERULAR FILTRATION | mL/min/1.73m2 | [facility] | | | [place] | RATE,ESTIMATED | | MEDICAL | | | | mL/min/1.74y9Gvlb than | | CENTER - | | [...] + | [address] | [address] | [place] | [phone] | | [facility] | | [address] | | | - LABORATORY | | [...] [address] | [place] | [phone] | | [facility] | | [address] | | | - LABORATORY | | [...] | | | | | | short [place] interval | | | | | | [...] | | | | BINU MACK MD ([id number]) | | | | | | on [...]
--- OUTSIDE RECORDS SUMMARY | ~2020-05-18 | XMS | Encounter Summary ---
Demographics + + + | Address | [address] | | | [place] [address] | + + + | Home Phone | | + + + | Preferred Language | Unknown | + + + | Marital Status | | + + + | Yarsani Affiliation | 1061 | + + + | Race | Unknown | + + + | Ethnic Group | Unknown | + + + Author + + + | Author | [facility] | | | and [place] | + + + | Organization | [facility] | | [...] Team Providers + +------+ + | Care Post Anesthesia Nurse Name | Role | Phone | [...] | 12/17/ | Telephone | [facility] | Cruzito Bird, | Lab Order (Pt due | | 2019 | | CARDIOLOGY [address] | MD [address] | for labs prior to | | | | [place], | [place], | appt ) | | | | [place] [address] | [place] [address] | | | | | [phone] | [phone] | | | | | | | [...] AND W ILL DO LAB WORK AT [facility] IN [place]. elephone Encounter - Genesis Horne RN - 12/17/2018 11:22 AM P Bhanu placed. elephone Encounter - Trinidad Musa, Manager Social Responsibility - 12/17/2018 11:15 AM Ra kinsey voicemail [...] Dx); | | | | | [place] [address] | Pacemaker Dual | | | | | [phone] | Chamber, MRI | | | | [...] | | | | St [place] | | | | | | [address] | | | | | | | [...] involving | | | | | | guidiville coronary | | | | | | artery of guidiville | | | | | | heart [...] involving | | | | | | guid[place]le coronary | | | | | | artery of [place]le | | | | | | heart [...] involving | | | | | | [place] coronary | | | | | | artery of guid[place]le | | | | | | heart without angina | | | | | | pectoris | | + +------+--------+ + + documented as of this encounter Visit Diagnoses + + | Diagnosis | + + | Pacemaker Dual Chamber, MRI compatible, 05/14/17 [facility] - Primary Cardiac | | pacemaker in situ | + + | H/O aortic valve replacement Heart valve replaced by other means | + + | Essential hypertension Unspecified essential hypertension | + + | Coronary artery disease involving guidiville coronary artery of guidiville heart without | | angina pectoris | [...]
--- OUTSIDE RECORDS SUMMARY | ~2020-05-18 | XMS | Encounter Summary ---
Demographics + + + | Address | [address] | | | [place] [address] | + + + | Home Phone | | + + + | Preferred Language | Unknown | + + + | Marital Status | | + + + | Sabianism Affiliation | 1061 | + + + [...] Team Providers + +------+ + | Care Arcade Game Technician Name | Role | Phone | [...] Monitor | CARDIOLOGY [address] | [address] [place] | Interrogation | | | | [place], | [place], | (Primary Dx); | | | | [place] [address] | [place] [address] | Pacemaker Dual | | | | [phone] | Chamber, MRI | | | | [...] Paceart documentation and remote PDF scanned into [employer] for remote interrogation re sults. Data collected [...] Dx); | | | | | [place] [address] | Pacemaker Dual | | | | | [phone] | Chamber, MRI | | | | [...] [place] | | | | | | [address] | | | | | | | [...] remote PDF scanned into | | | [employer] for remote interrogation results. Data collected by [...]
--- OUTSIDE RECORDS SUMMARY | ~2020-05-18 | XMS | Encounter Summary ---
Demographics + + + | Address | [address] | | | [place] [address] | + + + | Home Phone | | + + + | Preferred Language | Unknown | + + + | Marital Status | | + + + | Roman Catholic Affiliation | 1061 | + + [...] Team Providers + +------+ + | Care Assembler Finger Buffs Name | Role | Phone | + [...] persistent | MD Paco | [address] | | | | | atrial | [address] [place] | | | | | fibrillation | [place] | [place], [place] | | | | | ([facility]) Sick | [address] [place] | [address] Phone: | | | | | sinus | [place], [place] | [phone] | | | | | syndrome | [address] | Fax: | | | | | (HCC) | Phone: | [phone] | | | | | Chronic | [phone] | | | | | | diastolic | Fax: | | | | | | (congestive) | [phone] | | | | | | heart [...] + + | 01/05/ | Office | [facility] | Emely Gabriel, | Coronary artery | | 2020 | Visit | CARDIOLOGY [address] | YARN EXAMINER SKEINS [address] | disease involving | | | | [place], | [place] | emmonak coronary | | | | [place] [address] | [address] | artery of emmon[place] | | | | [phone] | | heart without angina | | | | | | pectoris (Primary | | | | | | Dx); Essential | | | | | | hypertension; | | | | | | Pulmonary HTN ([facility]); | | | | | | Chronic diastolic | | | | | | congestive heart | | | | | | failure ([facility]); | | | | | | Persistent atrial | | | | | | fibrillation ([facility]); | | | | | | 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 ([facility]); | | | | | | Status [...] encounter Patient Instructions Patient Instructions Herson Boone, Driver Helper - 01/06/2020 12:45 PM PDT1. We will schedule you for a lung function test to check for amiodarone side effects at [facility]. 2. [facility]. 3. Get a hold of the [facility] for about signing a paper to release information to [facility] so we can view it in [...] you have an emergency medical situation, call 1. If you are over 60 years old, [...] local public health website. CDC: COVID-19: https://www.cdc.gov/coronavirus/2019-ncov/index.html [place] Coronavirus Advisory: https://www.willow wood.org/bnpyurgk-ind-cbfwwpbl/coron avirus-advisory Virtual Visits Available https://virtual.willow wood.org/ documented in this encounter Progress Notes Emely Gabriel ARNP - 01/06/2020 12:45 PM PDTFormatting of this note might be different fr om the original. PATIENT NAME: Johnny Siddiqi : 1935: AGE: 84 y.o. PRIMARY CARE: Antonio Paulino MD CC: OUTPATIENT FOLLOW UP VISIT Date of Service: 01/06/2020 HISTORY OF PRESENT ILLNESS: Johnny Siddiqi is a 84 y.o. 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 nystatin (MYCOSTATIN) 466844 UNIT/GM cream Apply 1 Units topically 3 [...] Lateral leads Confirmed by BASIA BIRD MD ([id number]) on 07/31/2018 4:48:20 PM Which is compared to today's ECG 01/06/2020: atrial-paced rhythm with prolonged AV conduct ion, left bundle branch block. QT/QTc 476/476 with a ventricular rate of 60 beats per minute . LAB RESULTS reviewed during visit today primarily from [facility]: LIPID Lab Results Component Value [...] scanned Paceart documentation and device PDF in [employer] for interrogation (with programming changes) performed during [...] Symptoms with minimal exertion of t he [place] [employer] functional class, which is complicated [...] above. He does have remote monitoring with [employer]. 3. Paroxysmal atrial fibrillation with RVR/aberration conduction: [...] 73 Y.O.(2) and Vascular disease ( 1). [id number] is 4, which gives an estimated 4.0%risk [...] device check. 4. 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 [facility] 11/14/2004 shows preserved left ventricular systolic function [...] mg. His war[facility]in [facility] managed by [facility]. 7. Hyperlipidemia, mixed: A. Today, 01/06/2020, he [...] He wants to have this done at [facility]. [facility] exam [facility] a t [facility] in 11/2019 showed no changes. [facility] to see if TSH was done with his other labs in October and they report that if it was done it would have been on the labs we received, a nd as we do not see this we will add labs to be done at [facility] when he has his INR done [...] to check for amiodarone side effects at [facility]. 2. He will have TSH and T4 added to his INR that will be done at [facility] tomorrow to foll ow-up his amiodarone use. 3. Get a hold of the [facility] for about signing a paper to release information to [employer] so we can view it in our system. 4. He will continue with his [employer] remote device monitoring. 5. He is recommend [...] done prior by another provider. Herson Breaux, Driver Helper am acting as a scribe on behalf of, and in the presenc e of AMANDA Hurtado. - Herson Boone, Driver Helper 01/06/2020 12:39 PM Emely Breaux ARNP, personally performed the services described in this documentation, as scribed in my presence and it is both accurate and complete. AMANDA Hurtado 0 Portions of this chart may have been created with [employer] voice recognition software. Occasi onal wrong-word or [...] 2019 | Monitor | | MD [address] | Interrogation | | | | | [place], | (Primary Dx); | | | | | [place] [address] | Pacemaker Dual | | | | | [phone] | Chamber, MRI | | | | | | compatible, 05/14/17 | | | | | | [facility]; | | | | | | 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) | +--------+ + + + + | 01/05/ | Office | Cardiology | Emely Gabriel, | | | 2020 | Visit | | YARN EXAMINER SKEINS [address] | | | | | | [place] | | | | | | [address] | | | | | | | [...] | [facility] | | + + +--------+ + + [...] | | | PDT | pablo syndrome (HCC) | results section. [...] | | | PDT | pablo syndrome (HCC) | results section. 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
--- OUTSIDE RECORDS SUMMARY | ~2020-05-18 | XMS | Encounter Summary ---
Demographics + + + | Address | [address] | | | [place] [address] | + + + | Home Phone | | + + + | Preferred Language | Unknown | + + + | Marital Status | | + + + | Uatsdin Affiliation | 1061 | + + + | Race | Unknown | + + + | Ethnic Group | Unknown | + + + Author + + + | Author | [facility] | | | and [place] | + + + | Organization | [facility] | | [...] Team Providers + +------+ + | Care Ground Defence Officer Name | Role | Phone | + [...] + + | 05/08/ | Surgery | [facility] | Peter Maciel MD | EGD with Anesthesia | | 2017 | | MED CTR [facility] INTRA OP | [address] | | | | | [address] | [place], [place] | | | | | [place], [place] | [address] | | | | | [address] | [phone] | | | | | [phone] | | | +--------+---------+ + + + [...] Physician Discharge Summary Patient ID: Jacklyn Siddiqi [id number] 81 y.o. 1935 Admit date: 05/07/2017 Discharge [...] significantly so this was dis continued. The supervisor screen making recommended putting in a permanent pacemaker and [...] normal Psychiatric: Appropriate affect and mood Disposition: [facility] Patient Instructions: Discharge Medications New Medications Details [...] Care Everywhere.Pacemaker Impla ntation, Discharge Instructions for (Persian)documented in this encounter Medications at Time of [...] Philippe MD - 06/04/2017 8:18 PM PDT [facility] HOSPITALIST PROGRESS NOTE Patient: Jacklyn Siddiqi : 1935: Age: 81 y.o. MedRec: [id number] PCP: Antonio Paulino MD Admission date: 05/07/2017 [...] as outlined above. Yodit Philippe 06/04/2017 20:18 [facility] Shawn Lewis, [facility] Regulatory Agency Director - 05/16/2017 9:29 AM PDTFormatting of this [...] am: INR 4. Warfarin education received NO- banquet captain. 5. Pharmacist to follow daily Warfarin Dosing Nomogram Warfarin Dosing Expectations Per P&T-approved Electronically signed by: Shawn Mercedes, Volunteer Manager 05/16/2017 9:29 Michael Giang MD - 05/16/2017 [...] He is in a class IIo f [place] [employer] functional class. There is mild [...] made to ensure accuracy; however, inadvertent computerized tool honing machine set up operator errors may be pre sent. Electronically signed by: Cruzito Bird MD 05/16/2017 7:18 Susan Diaz MD - 05/15/2017 7:43 PM PDT [facility] HOSPITALIST PROGRESS NOTE Patient: Jacklyn Siddiqi : 1935: Age: 81 y.o. MedRec: [id number] PCP: Antonio Paulino MD Admission date: 05/07/2017 [...] ou tlined above. Susan Vides 05/15/2017 19:43 [facility] Jessica Rivas, PharmD - 05/15/2017 7:41 AM [...] am: INR 4. Warfarin education received NO- banquet captain. 5. Pharmacist to follow daily Warfarin [...] DOPamine Stopped (05/12/17 0745) norepinephrine Stopped (05/11/17 1481) OBJECTIVE: PHYSICAL EXAM Latest VS: BP 135/43 [...] Sinus rhythm Confirmed by FREDERICK CHARLTON, BINU ([id number]) on 05/15/2017 5:56:04 AM ECG 12 lead [...] Sinus rhythm Confirmed by BINU MACK MD ([id number]) on 05/15/2017 5:57:23 AM CBC no Differential [...] He is in a class IIo f [place] [employer] functional class. There is mild [...] made to ensure accuracy; however, inadvertent computerized tool honing machine set up operator errors may be pre sent. Electronically signed by: Cruzito Bird MD 05/15/2017 6:36 Susan Diaz MD - 05/14/2017 8:48 PM PDT [facility] HOSPITALIST PROGRESS NOTE Patient: Jacklyn Siddiqi : 1935: Age: 81 y.o. MedRec: [id number] PCP: Antonio Paulino MD Admission date: 05/07/2017 [...] ou tlined above. Susan Vides 05/14/2017 20:48 [facility] Jessica Rivas, PharmD - 05/14/2017 4:08 PM [...] am: INR 4. Warfarin education received NO- banquet captain. 5. Pharmacist to follow daily Warfarin [...] DOPamine Stopped (05/12/17 0745) norepinephrine Stopped (05/11/17 9050) sodium chloride 0.9% 125 mL/hr at 05/14/17 [...] and plantation the same. The risks and msisy efits of the procedure including alternative treatment [facility] The patient decides to proceed with the procedure. 2. Resume Coumadin after procedure today. 3. Start amiodarone oral loading today to treat A. fib with RVR. Portions of this report were transcribed using voice recognition software. Every effort wa s made to ensure accuracy; however, inadvertent computerized tool honing machine set up operator errors may be pre sent. Electronically signed by: Cruzito Bird MD 05/14/2017 6:25 row, Yodit Ramsay MD - 05/13/2017 7:23 AM PDTForm atting of this note might be different from the original. [facility] HOSPITALIST PROGRESS NOTE Patient: Jacklyn Siddiqi : 1935: Age: 81 y.o. MedRec: [id number] PCP: Antonio Paulino MD Admission date: 05/07/2017 [...] has lengthened Confirmed by FREDERICK CHARLTON, BINU ([id number]) on 05/13/2017 6:24:02 AM Culture, Blood Result [...] arthroplasty changes. Multiple lead wires overlie the frrvi-rp-ltaa. Overall unchanged aeration of the lungs with [...] Patient was tested (positive) at the [facility], w as provided with CPAP, slept "all [...] awake and requires oxygen when a sleep. B-[employer] SCHOOL SUSPENSION AIDE 488 on arrival. Echo 02/2017 showed EF [...] Pulmonary HTN Mild to severe by echo [id number]. Never smoked tobacco and no documente d [...] associated falls, on e occurring at the [facility] the day of admission and one [...] as outlined above. Yodit Philippe 05/13/2017 7:23 [facility] row, Yodit Ramsay MD - 0 05/12/2017 10:27 AM PDT [facility] HOSPITALIST PROGRESS NOTE Patient: Jacklyn Siddiqi : 1935: Age: 81 y.o. MedRec: [id number] PCP: Antonio Paulino MD Admission date: 05/07/2017 [...] arthroplasty changes. Multiple lead wires overlie the yqumz-rw-dyqr. Overall unchanged aeration of the lungs with [...] as outlined above. Yodit Philippe 05/12/2017 10:27 [facility] row, Yodit Ramsay MD - 0 05/11/2017 2:21 PM PDT [facility] HOSPITALIST PROGRESS NOTE Patient: Jacklyn Siddiqi : 1935: Age: 81 y.o. MedRec: [id number] PCP: Antonio Paulino MD Admission date: 05/07/2017 [...] with rate 70-80 on dopamine 5 mcg/min. [place] systolic valve cli ck at [facility]. Respiratory: [...] arthroplasty changes. Multiple lead wires overlie the jhqnh-cu-wvqw. Overall unchanged aeration of the lungs with [...] as outlined above. Yodit Philippe 05/11/2017 14:21 [facility] cConnell, Rob Zacarias N - 05/10/2017 7:34 [...] 7:03 PM PDT HOSPITALIST progress NOTE [facility] Donita Duckworth 05/10/2017 Rounding Physician: Yodit Philippe MD Patient Name: Jacklyn Siddiqi : 1935 Medical Record: [id number] Primary Hospital Problem: Atrial fibrillation with RVR [...] made to ensure accuracy; however, inadvertent computerized tool honing machine set up operator errors and typos m ay be present Electronically signed by: Yodit Philippe MD, DATE/TIME: 05/10/2017 19:03 [facility] HOSPITALIST TEAM arTania walton RN - 05/10/2017 4:33 PM PDTReport to [place], Patient in bed resting. rradha, Yodit Ramsay MD - 05/10/2017 3:59 PM PDTForma tting of this note might be different from the original. [facility] HOSPITALIST PROGRESS NOTE Patient: Jacklyn Siddiqi : 1935: Age: 81 y.o. MedRec: [id number] PCP: Antonio Paulino MD Admission date: 05/07/2017 [...] Atrial fibrillation Confirmed by BINU MACK MD ([id number]) on 05/10/2017 5:50:22 AM No results found. [...] as outlined above. Yodit Philippe 05/10/2017 15:59 [facility] Tania House RN - 05/10/2017 2:15 [...] to commode and one pers on assist. threat monitoring analyst shows Sinus Tach with BBB. Patient on RA with sats 100%Electroni cece signed by Tania Cervantes RN at 05/10/2017 12:54 PM ELSYCrow, Yodit Ramsay MD - 05/09/2017 8:11 PM PDT [facility] HOSPITALIST PROGRESS NOTE Patient: Jacklyn Siddiqi : 1935: Age: 81 y.o. MedRec: [id number] PCP: Antonio Paulino MD Admission date: 05/07/2017 [...] as outlined above. Yodit Philippe 06/04/2017 20:12 [facility] Nancy Perales RN - 0 05/09/2017 1:59 PM PDTEvaluated pt for PICC line, upon review of chart placed midline 4 fren ch in left cephalic. Pt Needing IV access for blood draw and occasional IVP medication.Barbara ctronically signed by Nancy Arechiga RN at 05/09/2017 2:01 PM PDTCrow, Yodit Ramsay MD - 05/08 8:15 PM PDT [facility] HOSPITALIST PROGRESS NOTE Patient: Jacklyn Siddiqi : 1935: Age: 81 y.o. MedRec: [id number] PCP: Antonio Paulino MD Admission date: 05/07/2017 [...] as outlined above. Yodit Philippe 06/04/2017 20:15 [facility] Mary Vargas RN - 05/08/2017 2:57 [...] and RT notified. O2 2 L via [employer] S[employer]OL SUSPENSION AIDE applied. O2 sat increased to 91%. Maintained [...] and direction x MAR from SNF facility: [facility] [place] Vaccines up to date? Yes No Unsure [...] performed and electronically signed by Isa Kaufman, Supervisor Mails 16:14 Reviewed by: Dolly Rizzo, PharmD 05/07/2017 [...] remove, d/t just being placed today at [facility], son r corinna pt does have open [...] PDTdocumented in this encounter H&P Notes Peter Mcaiel MD - 05/08/2017 10:01 AM PDTPatient interviewed, history and physical, symp toms reviewed VS signs noted, no change from previous H&P or assessment and plan.Electronic ally signed by Peter Maciel MD at 05/08/2017 10:02 AM PDTCrow, Yodit Ramsay MD - 05/07/2017 2:14 PM PDT [facility] HISTORY AND PHYSICAL Pt. Name/Age/: [...] ulcers. He has a nonhealing ulcer [facility] that he is told is cancer. [...] cirrhosis (HCC) 2003 CT scan 2003 at [facility] CAD (coronary artery disease) 2005 Had CABG to LAD (for 80-90% LAD) surgery done at [facility] CVA (cerebral infarction) -2014 lacunar (not stated as new nor old) Dementia Diastolic CHF (HCC) Echo 2013 EF 68, ascites, pulm HTN Endocarditis 2009 Enterococcus 6 weeks Amp + Gent H/O aortic valve replacement 2004 [place] AVR INR goal is 2-3, surgery done at [facility] Hypertension Liver cirrhosis (HCC) Over-anticoagulated 04/01/2015 [...] is not indicated. Code Status Full code. [facility] Documentation This patient is short of breath and acutely anemic with melena on warfarin with an artifici al valve in place. He is expected to pass more than two midnights in the hospital. Total of 60 minutes were required to complete the admission process. Electronically signed by: Yodit Philippe MD 05/07/2017 14:14 [facility] documented in this enc ounter Procedure [...] obtained, the patient was taken to the cath lab tech. 1 g of cefaz jamel was given [...] pulled through into the pocket. A 6 Sudanese sheath was p laced over the guidewire and the core was removed. The additional guidewires were inserted through the sheath. The sheath was then removed. The guidewires were secured by hemostat, leaving one guidewire to be utilized for placement of an 8 Sudanese safe sheath. A safe sheat h core [...] same technique as mentioned above, another 8 Sudanese safe sheath was utilized to i ntroduce [...] #: LPA 1200 M, serial #: [id number]. C. Ventricular lead: [place], length 52 cm, model #: LPA 1200M, serial #: [id number]. PACEMAKER TESTING: A. Atrial lead: Sensing 2.4 [...] obstructive sleep apnea. He was admitted to [facility] on 05/07/2017 for Atrial fibrillation with RVR [...] cirrhosis (HCC) 2003 CT scan 2003 at [facility] CAD (coronary artery disease) 2004 Had CABG to LAD (for 80-90% LAD) surgery done at [facility] CVA (cerebral infarction) -2014 lacunar (not stated as new nor old) Dementia Diastolic CHF (HCC) Echo 2014 EF 68, ascites, pulm HTN Endocarditis 2009 Enterococcus 6 weeks Amp + Gent H/O aortic valve replacement 2004 [place] AVR INR goal is 2-3, surgery done at [facility] Hypertension Liver cirrhosis (HCC) Over-anticoagulated 04/01/2015 [...] with Anesthesia; Surgeon: Peter Maciel MD; Location: [facility] MEDICAL PROCED URE UNIT FAMILY HISTORY Family [...] Oral Daily IV INFUSIONS: DOPamine Stopped (05/12/17 3945) norepinephrine Stopped (05/11/17 5775) ALLERGIES Allergies Allergen Reactions Latex Rash REVIEW [...] developed, well nourished, well groomed, no ac takotna distress Cardiovascular NYHA Class: II- Symptoms with [...] has lengthened Confirmed by FREDERICK CHARLTON, BINU ([id number]) on 05/13/2017 6:24:02 AM Culture, Blood Collection [...] He is in a class II of [place] [employer] functional class. There is fluid [...] patient. Electronically signed by: Cruzito Bird MD [facility] 05/13/2017 7:03 Portions of this chart may have been created with [employer] voice recognition software. Occasi onal wrong-word or sound-alike substitutions may have occurred due to the inherent carter itations of voice recognition software. Please read the chart carefully and recognize, using context, where these substitutions have occurred. Amelie Alvarez RN - 05/08/2017 11:53 AM PDTAssociated O rder(s): IP CONSULT TO WOUND OSTOMY NURSEJosefina Siddiqi is a [facility] patient who is [facility], that has the Coban 2 placed every /Sat which were just placed yesterday . Per the patient he has two ulcerations to the left LE POA. His son and him do not want the wraps removed until SaturdayMay 10 please. OT and Nursing to document wound/ulcers at that session. Have requested [facility] medical records as well to have in the paper chart. Amelie Pack RN [facility] Ext [phone] docume nted in this encounter ED Notes [...] cirrhosis (HCC) 2003 CT scan 2004 at [facility] CAD (coronary artery disease) 2004 Had CABG to LAD (for 80-90% LAD) surgery done at [facility] CVA (cerebral infarction) -2014 lacunar (not stated as new nor old) Dementia Diastolic CHF (HCC) Echo 2014 EF 68, ascites, pulm HTN Endocarditis 2009 Enterococcus 6 weeks Amp + Gent H/O aortic valve replacement 2004 [facility] Rupert AVR INR goal is 2-3, surgery done at [facility] Hypertension Liver cirrhosis (HCC) Over-anticoagulated 04/01/2015 [...] UA, POC Negative Negative, 100 mg/dL Specific [place], UA, POC 1.025 1.001 - 1.030 Blood, [...] MD Consultants: Dr Nettles PCP: Antonio Paulino [facility] transferring to: [facility] Provider after transfer: CODE STATUS: [x] Attempt CPR [] Do not resuscitate If patient is pulseless and not breathing, RN/WINDOW GLAZIER may pronounce . Advanced Directives included: [] [...] Reactions Latex Rash Diet: [x] As tolerated CARDIOLOGY CLINICAL NURSE SPECIALIST may upgrade or downgrade diet as condition [...] Whole [] Thin Liquids [] Cut-up [] [place] Thick [] Advanced Chopped [] Honey Thickened [] Chopped [] Advanced Ground [] 1:1 feedings [] Ground/Pureed [] Other: Tube Feedings: [] PEG [] GT [] JT [] NGT [] Formula type: (Snake Charmer may change/substitute if indicated). [] Continuous Rate: [...] & Management for: restrict ed limb [] CARDIOLOGY CLINICAL NURSE SPECIALIST Evaluation &Management for: [] Other: Wound/Skin Care: [...] Susan SAWYER MD, certify that post hospital chcf care is medically nece ssary on a continuing basis for any of the conditions for which he/she received care during this hospitalization. Check one: [x] Skilled [] Intermediate Additional Orders/Instructions Physician's signature: Susan Jarvis MD05/16/2017 14:20 [facility] NURSING FACILITY USE ONLY: [] Admitting orders [...] Therapy Discharge Recommendations are: Recommended discharge disposition: chcf facility Post discharge physical therapy recommendation: will [...] for assist for safety Bed-Chair, Level of Shelby: contact guard assist, set up required, verbal cues requir ed Chair-Bed, Level of [place]: contact guard assist, set up required, verbal cues requir ed Hxi-Hpbot-Zvk, Assistive Device: 2 wheeled walker (FWW) Sit-Stand, Level of Shelby: contact guard assist, verbal cues required Stand-Sit, Level of Shelby: contact guard assist, verbal cues required Svr-Odeqx-Wry, Assistive Device: 2 wheeled walker (FWW) Safety Issues: weight-shifting ability decreased Impairments: pain, strength decreased Bed Mobility increased time and need for frequent redirection Assistive Device: bed rails Supine to Sit, Level of Shelby: contact guard assist Sit to Supine, Level of Shelby: (NT, pt left sitting in bedside chair) [...] STG Status continued at 05/16/2017 1155 STG [place] Level modified independent, supervised at 05/09/2017 1700 STG Assistive Device 2 wheeled walker (FWW) at 05/09/2017 1700 STG Distance (feet) 50 at 05/09/2017 1700 Electronically signed by: Velia Gerard, PT, 05/16/2017 11:59 lan of Ana Green i, RN - 05/16/2017 10:32 AM PDTProblem: Discharge Planning Goal: Patient will be discharged in a safe manner Outcome: Improving This CM spoke with Elkin at [facility] this AM and she is ready to accept patient when he is medically stable and will arrange transport there for patient. She confirmed yahaira t they also have OT there to do his leg wraps. Efaxed the MD prog notes, PT OT notes, and med list to her. TN# [id number]. Manually faxed the completed PASRR to SNF. Pkt started and placed in ghost chart. Electronically signed by: Ana Dietrich RN 05/16/2017 10:27 11:14 Left message with Elkin, at [facility], letting her know that patient will be d ischarged today and would be ready this afternoon sometime. Requested a return call with pic k up time. Elkin returned call with 1430 picker machine operator time. Let bedside RN know. Left message with Jr Jacklyn, letting him know that his dad will be taken to the SNF today. Pkt completed with original completed PASRR, AVS, and Trazadone script. Given to minibus driver. Fa xed SNF transfer orders to [facility] with call to Elkin.Electronically signed by: Sangita [...] today. Kelly from [facility], p# [phone], faxed the paperwork to Jacklyn Kelly' email [...] afternoon and let him know that the [facility] would only be a short term rehab not nursing home stay and that he would have to pay for the transpor t there, since he is non-service connected, per SAMEER [place], whom this CM called to confirm this above information. Jacklyn Joiner stated that his father will not go back to [facility], so reassured him yahaira t the shoe planner at [facility] would help find a keno terminal operator place for him since he will [...] Therapy Discharge Recommendations are: Recommended discharge disposition: chcf facility Post discharge physical therapy recommendation: will [...] and attending to task Bed-Chair, Level of Shelby: contact guard assist, set up required, verbal cues requir ed Chair-Bed, Level of Shelby: contact guard assist, set up required, verbal cues requir ed Xmp-Tadnx-Uhx, Assistive Device: 2 wheeled walker (FWW) Sit-Stand, Level of Shelby: contact guard assist, verbal cues required Stand-Sit, Level of Shelby: contact guard assist, verbal cues required Eux-Wapbu-Qec, Assistive Device: 2 wheeled walker (FWW) Safety Issues: weight-shifting ability decreased Impairments: pain, strength decreased Bed Mobility increased time and need for frequent redirection Assistive Device: bed rails Supine to Sit, Level of Shelby: contact guard assist Sit to Supine, Level of Shelby: (NT, pt left sitting in bedside chair) [...] STG Status continued at 05/15/2017 1315 STG [place] Level modified independent, supervised at 05/09/2017 1700 [...] forward to go to a rehab facil [facility] in the future. lan of Care - Maria Antonia Bullard, PRE OWNED SALES CONSULTANT - 05/15/2017 8:43 AM PDTProblem: Patient Care [...] ssistance with ambulation and transfers. lan of [facility] - Rob Dietrich RN - 05/14/2017 6:04 PM PDTProblem: Discharge Planning Goal: Patient will be discharged in a safe manner This CM met with patient per his request about his discharge plan. Let him know that [facility] has accepted him and he was aware [...] he did not even know that his [facility] was in the hospital again. This CM was trying to get some help as to where patient was going to go after his rehab, si hie patient stated that his other son, Jacklyn Siddiqi Jr, is currently moving out all his belo ngings out of [facility] in [place], since he is too high level of care for them any more. Spoke with Jacklyn Joiner, and put his phone numbers in the chart, OK with patient, since [facility] e[facility] is the one who transports him to all his appts, etc. He stated that Jacklyn Joiner, is his POA. Later this afternoon evening, patient requested that this CM call the [facility] and see if the [facility] has any bed for him. Let patient know that this will have to be done in the AM since they are already closed today. CM will need to call the [facility] in AM to see if patient is eligible for transfer to the [facility].Electronically signed by: Ana Dietrich RN 05/14/2017 18:04 [...] Therapy Discharge Recommendations are: Recommended discharge disposition: chcf facility Post discharge physical therapy recommendation: will [...] treatment from his children Bed-Chair, Level of Shelby: contact guard assist, set up required, verbal cues requir ed Had-Dlrzo-Xdc, Assistive Device: 2 wheeled walker (FWW) Sit-Stand, Level of Shelby: contact guard assist, verbal cues required Stand-Sit, Level of [place]: contact guard assist, verbal cues required Jhg-Mpabn-Pia, Assistive Device: 2 wheeled walker (FWW) Safety Issues: weight-shifting ability decreased Impairments: pain, strength decreased Bed Mobility increased time and need for frequent redirection Assistive Device: bed rails Supine to Sit, Level of Shelby: contact guard assist Sit to Supine, Level of Shelby: (NT, pt left sitting in bedside chair) [...] STG Status continued at 05/14/2017 1600 STG [place] Level modified independent, supervised at 05/09/2017 1700 [...] re questing to use commode. OT and COVERING MACHINE TENDER assisted patient with functional t/f and limited [...] bed rails Supine to Sit, Level of Shelby: contact guard assist Sit to Supine, Level of Shelby: contact guard assist Transfers Sit-Stand, Level of Shelby: stand by assist, contact guard assist Stand-Sit, Level of Shelby: stand by assist, contact guard assist Uox-Drllf-Oew, Assistive Device: 2 wheeled walker (FWW) Toilet, Level of Shelby: contact guard assist, stand by assist Toilet, Assistive Device: 2 wheeled walker (FWW) Impairments: pain, strength decreased OT Goal Review Date Flowsheet Row Most Recent Value STG Review Date 05/16/17 at 05/09/2017 1604 LB Dressing Goal Flowsheet Row Most Recent Value STG Status new at 05/14/2017 1045 STG [place] Level modified independent at 05/14/2017 1045 Toilet Transfer Goal Flowsheet Row Most Recent Value STG Status new at 05/14/2017 1045 STG Shelby Level supervised at 05/14/2017 1045 STG Assistive [...] Spiritual Evaluation: Patient is a "Bible Believing Mandaeism" loves to pray and read the "Word." Spiritual Intervention: Listened to the patient's concerns about the upcoming procedure. Active Listening, past oral presence, and prayer was offered. Spiritual Outcomes: Patient appreciates manager project's prayer, seems less apprehensive. Spiritual Goals / Follow-up: Will see the patient as requested. If there are any other spiritual care issues that arise, please contact manager project. lan of Care - Kristina Ayers RRT [...] Therapy Discharge Recommendations are: Recommended discharge disposition: chcf facility Post discharge physical therapy recommendation: will benefit from structured setting, ongo ing low intensity therapy Equipment Recommendations: 2 wheeled walker (FWW) Planned Interventions: balance training, gait training, strengthening Recommended Frequency: daily Patient Status/Goals: Reflects last filed data and may be from multiple contributors. Gait side-stepping at bedside Level of Shelby: 2 person assist required Assistive Device: 2 wheeled walker (FWW) Transfers pt weak and with dizziness, need for CGA for safety due to symptoms Sit-Stand, Level of Shelby: stand by assist, contact guard assist Stand-Sit, Level of Shelby: stand by assist, contact guard assist [id number], Assistive Device: 2 wheeled walker (FWW) Safety Issues: weight-shifting ability decreased Impairments: pain, strength decreased Bed Mobility increased time d/t fatigue Assistive Device: none Supine to Sit, Level of Shelby: contact guard assist Sit to Supine, Level of Shelby: contact guard assist Functional Endurance impaired - SOB with limited activity [facility] Turning over in bed: a [...] steps with a railing: dependent/unable TOTAL - [facility]OB[facility] : 14 Unable / dependent = 1 A lot / modA = 2 A little / Guillermo = 3 None / independent = 4 Completed the [facility] Activity Measure for Post Acute Care (AM-PAC) "6 Clicks" [facility] Mobility Inpatient Short Form. This version [...] STG Status continued at 05/12/2017 1203 STG Shelby Level modified independent, supervised at 05/09/2017 1700 STG Assistive Device 2 wheeled walker (FWW) at 05/09/2017 1700 STG Distance (feet) 50 at 05/09/2017 1700 Electronically signed by: Velia Gerard, PT, 05/13/2017 13:50 lan of Ana Green i, RN - 05/13/2017 12:57 PM PDTProblem: Discharge Planning Goal: Patient will be discharged in a safe manner Outcome: Improving This CM called Elkin at [facility] [place], p# [phone], and she confirmed that she has a [...] adequate pain control 3/10 by 05/14/17 4. Jakclyn will have HR less than 100 by [...] pain. lan of Care - Donato Mcqueen, PRE OWNED SALES CONSULTANT - 05/12/2017 6:09 PM PDTProblem: Patient Care [...] unable to step in place Level of Shelby: 2 person assist required Assistive Device: 2 wheeled walker (FWW) Distance (feet): 15, 15 Transfers pt very weak with low BP, CGA to Min Assist for sit<>stand Sit-Stand, Level of Shelby: stand by assist, contact guard assist Stand-Sit, Level of [place]: stand by assist, contact guard assist [id number], Assistive Device: 2 wheeled walker (FWW) Safety Issues: weight-shifting ability decreased Impairments: pain, strength decreased Bed Mobility NT; pt up in chair on arrival requested to stay up in chair post tx Assistive Device: none Supine to Sit, Level of Shelby: independent Sit to Supine, Level of Shelby: independent Therapeutic Exercise pt c/o of pain [...] STG Status continued at 05/12/2017 1203 STG [place] Level modified independent, supervised at 05/09/2017 1700 [...] 25-30 ml urine an hour. lan of [facility] - Nataly Rosenbaum, VALARIE - 05/12/2017 12:36 [...] % on 2liters/minute nasal cannula lan of [facility] - Lisa Sherwood RN - 05/11/2017 6:58 [...] tare. lan of Care - Donato Mcqueen, PRE OWNED SALES CONSULTANT - 05/11/2017 4:33 PM PDTProblem: Patient Care Overview (Adult) Goal: Care Team Goals & Evaluation PROBLEM-RELATED GOALS: 1. Ajcklyn will have breath sounds consistent with baseline [...] due to fear of falling Level of Shelby: 2 person assist required Assistive Device: 2 wheeled walker (FWW) Distance (feet): 15, 15 Stairs unable Bed Mobility Assistive Device: none Supine to Sit, Level of Shelby: independent Sit to Supine, Level of Shelby: independent Therapeutic Exercise Seated exercises: bilateral, long [...] STG Status new at 05/09/2017 1700 STG Shelby Level modified independent, supervised at 05/09/2017 1700 [...] lan of Care - Sana, Sudhakar Ac, PRE OWNED SALES CONSULTANT - 0 05/10/2017 4:23 AM PDTProblem: Patient [...] for meals. On room air. lan of [facility] Irais Reynolds RN - 05/09/2017 6:15 PM [...] showed Clare and Vasquez into the room. Claer and Vasquez came to me later and [...] like [facility] [place] [facility] [place] I faxed a referral to both facili ties and placed the cover sheets and fax receipts in the ghost charts. I received a call fr adriane Granger from [facility] and she verified that she had received [...] due to fear of falling Level of Shelby: 2 person assist required Assistive Device: 2 wheeled walker (FWW) Distance (feet): 15, 15 Stairs NT Bed Mobility Assistive Device: none Supine to Sit, Level of Shelby: independent Sit to Supine, Level of Shelby: independent Balance ongoing assessment needed Therapeutic Exercise [...] STG Status new at 05/09/2017 1700 STG [place] Level modified independent, supervised at 05/09/2017 170 [...] Joanna Lock RN - 05/09/2017 6:30 AM [id number] (late entry) pt has remained in ST [...] lan o f Reena - Sudhakar Hood, PRE OWNED SALES CONSULTANT - 05/09/2017 1:56 AM PDTProblem: Patient Care [...] was contacted and he was transferred to [place] at 1136. At about 1445 his HR [...] PM PDTPlan of Care - Melinda Davis, SALES SERVICE ASSISTANT - 05/08/2017 4:23 PM PDTProblem: Discharge Planning Goal: Patient will be discharged in a safe manner Outcome: Improving This nurse case management spoke with patient's POA and son Jacklyn Siddiqi regarding patient's discharg e plan. Son states that he now lives at [facility]. He was living at [facility] prior to [facility]. He has been living at [facility] about a month. Son states that they [...] they do go on daily walks around [facility]. Son states that he would appreciate case management to follow up with the RN at [facility] as well with him in coordinating a discharge back there. Son states that he is his transp ortation and will transport him back when stable. This CM called the RN at [facility] at [phone]. [facility] states that there has been a [...] not accept this patient back to their [place], we may need to consider a SNF. [...] PM PDTPt's Telemetry reading HR 150's-200. This SERGEANT MISSILE CREWMAN we nt over to assess pt. Who was lying in bed talking on the phone with a family member. He den ies chest pain, SOB and/or a fluttering feeling in his chest. SBP 108/58. Pt.'s RN is at [facility]. EKG ordered and Dr. Philippe contacted about elevated HR concerns. Pt. To be transferred over to the ICU for closer monitoring. Electronically signed by Mary Cantu RN at 04/20 2:07 PM PDTD-C Instructions Provation - Peter Maciel MD - 05/08/2017 9:20 AM PDT Discharge Instructions for Upper Endoscopy Patient: Jacklyn Siddiqi : 1935 Acct: [id number] Exam Date: Monday, May 08, 2017 Doctor: Peter Maciel MD The chances of difficulty following this procedure are minimal. The following instruction s will assist you in your recovery. 1. Do Not eat or drink anything for 1 hour. Try sips of water first. If tolerated, resu me your regular diet or one recommended by your physician. 2. Do not drive, operate bety [facility], make critical decisions, or do activities that [...] If unable to reach your physician, call [facility] Emergency Department at Ext. [phone] Your doctor [...] 11:10 AM PDTPt [place] and was heading back home an d pt fell twice this am once at the [place] once at gas station. 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 | | | | [...] | | | ?MRN: | | | [id number] | | | [id number] | | | his | | | [...] | | | ent/cd | | | [id number] | | | [id number] | | | [...] | | | St. | | | [place] | | | y H. | | [...] | | | St. | | | [place] | | | y H. | | [...] | | | St. | | | [place] | | | y H. | | [...] | | | St. | | | [place] | | | y | | | [...] + | [facility] | [address] | [place] | [phone] | | [facility] | | [address] | | | - LABORATORY | | [...] [address] | [place] | [phone] | | [facility] | | [address] | | | - LABORATORY | | [...] | | | | mg/dL | [facility] | | | | | | MEDICAL | | | | | | CENTER - | | | | | | LABORATORY | | + + + + + + | eGFR, | 58 (L)Comment: | >=60 | [facility] | | | non- | GLOMERULAR FILTRATION | mL/min/1.73m2 | [facility] | | | Burmese | RATE,ESTIMATED | | MEDICAL | | | | mL/min/1.09i7Pmdd than | | CENTER - | | [...] [address] | [place] | [phone] | | [facility] | | [address] | | | - LABORATORY | | [...] + | [facility] [facility] | [address] | [place] | [phone] | | [facility] | | [address] | | | - LABORATORY | | [...] | | | | BINU MACK MD ([id number]) | | | | | | on [...] | | | | BINU MACK MD ([id number]) | | | | | | on [...] was | | | taken to the cath lab tech. 1 g of cefazolin was given intravenously. | | | Patient was hooked up to EKG, pulse oximetry and blood pressure | | | monitoring. All parameters were kept stable during procedure. The | | | [employer] pacemaker commercial representative was present in the operating room. [...] the | | | pocket. A 6 Sudanese sheath was placed over the guidewire and the core | | | was removed. The additional guidewires were inserted through the | | | sheath. The sheath was then removed. The guidewires were secured | | | by hemostat, leaving one guidewire to be utilized for placement of an | | | 8 Sudanese safe sheath. A safe sheath core and [...] same technique as mentioned above, another 8 Sudanese safe sheath | | | was utilized [...] #: LPA 1200 M, serial #: [id number]. C. | | | Ventricular lead: [place], length 52 cm, model #: LPA 1200M, serial | | | #: [id number]. PACEMAKER TESTING: A. Atrial lead: Sensing 2.4 [...] #: PM 2272, serial #: | | |[id number]. | | | | | |B. Atrial lead: [place], length 46 cm, model #: LPA 1200 M, | | |serial #: [id number]. | | | | | |C. Ventricular lead: [place], length 52 cm, model #: LPA 1200M, | | |serial #: [id number]. | | | | | |PACEMAKER TESTING: [...] obtained, the patient was taken to the cath lab tech. | | 1 g of cefazolin was given intravenously. Patient was hooked up to EKG, pulse oximetry | | and blood pressure monitoring. All parameters were kept stable during procedure. The | | [employer] pacemaker commercial representative was present in the operating room. [...] into the pocket. A 6 | | Sudanese sheath was placed over the guidewire and the core was removed. The additional | | guidewires were inserted through the sheath. The sheath was then removed. The | | guidewires were secured by hemostat, leaving one guidewire to be utilized for placement | | of an 8 Sudanese safe sheath. A safe sheath core and [...] as mentioned | | above, another 8 Sudanese safe sheath was utilized to introduce an [...] #: LPA 1200 M, serial #: [id number]. | | Ventricular lead: [place], length 52 cm, model #: LPA 1200M, serial #: [id number] | | [id number].PACEMAKER TESTING: A. Atrial lead: Sensing 2.4 mV, [...] pleural effusion. Dictated and Signed by: Deep Gracia MD | | | Electronically signed: 05/13/2017 [...] + | [facility] [facility] | [address] | [place] | [phone] | | [facility] | | [address] | | | - LABORATORY | | [...] [place] | | | | | | [address] | | | | + + + + + + + + | Specimen | + + | Blood | + + + + + + + | Performing | Address | City/State/Zipcode | Phone Number | | Organization | | | | + + + + + | [facility] | [address] | [place] [address] | [phone] | + + + + + Ferritin [...] + | [facility] | [address] | [place] | [phone] | | [facility] | | [address] | | | - LABORATORY | | [...] [address] | [place] | [phone] | | [facility] | | [address] | | | - LABORATORY | | [...] [place] | | | | | | [address] | | | | + + + + + + + + | Specimen | + + | Blood | + + + + + + + | Performing | Address | City/State/Zipcode | Phone Number | | Organization | | | | + + + + + | [facility] | [address] | [place] [address] | [phone] | + + + + + ECHO [...] Number [id number] Patient Number | | | [id number] Date of Study 05/13/2017 Visit Number | | | [id number] Referring Physician | | | CRUZITO BIRD MD Number | | | MARGE FLOR Date of | | | 1935 Pharmacy Order Entry Technician TRELL LEWIS ANTONY Age | | | 81 year(s) Interpreting | | | MARGE FLOR | | | Bag Bailer CRUZITO BIRD MD Gender | | | Male Nurse | | | Stress Diesel Inspector Procedure Type of Study TTE procedure: ECHO [...] | 51.23 ml | | | EF Cpodcfgsy89% Left Ventricle Diastolic Dimension: 4.23 | | [...] Volume: 51.23 ml | | | EF Osurcqgmv37% | | | | | | Left [...] Room Number 457 Patient | | Number [id number] Date of Study 05/13/2017 Visit Number [id number] | | Referring Physician CRUZITO BIRD MD Number | | MARGE FLOR Date of 1935 | | Pharmacy Order Entry Technician TRELL LEWIS RDCS Age 81 year(s) Interpreting | | MARGE FLOR Bag Bailer CRUZITO | | MD MARGE Gender Male [...] LA Volume: 51.23 ml EF | | Dybhfxsbc70% Left Ventricle Diastolic Dimension: 4.23 cm Systolic [...] LA Volume: 51.23 ml | | EF Duipimxrm79% | | | | Left Ventricle | [...] [address] | [place] | [phone] | | [facility] | | [address] | | | - LABORATORY | | [...] [address] | [place] | [phone] | | [facility] | | [address] | | | - LABORATORY | | [...] | GLOMERULAR FILTRATION | mL/min/1.73m2 | [facility] | | | Burmese | RATE,ESTIMATED | | MEDICAL | | | | mL/min/1.82z2Nilk than | | CENTER - | | [...] | | | | mg/dL | [facility] | | | | | | [...] [address] | [place] | [phone] | | [facility] | | [address] | | | - LABORATORY | | [...] [address] | [place] | [phone] | | [facility] | | [address] | | | - LABORATORY | | [...] This is | 0.60 - 1.30 | [facility] | | | | an appended report. | mg/dL | [facility] | | | | These results have been | | MEDICAL | | | | appended to a previously | | CENTER - | | | | preliminary verified | | LABORATORY | | | | report. | | | | + + + + + + | eGFR, | 36 (L)Comment: | >=60 | [facility] | | | non- | GLOMERULAR FILTRATION | mL/min/1.73m2 | [facility] | | | Burmese | RATE,ESTIMATED | | MEDICAL | | | | mL/min/1.98r7Bqyx than | | CENTER - | | [...] + | [facility] | [address] | [place], [place] | [phone] | | [facility] | | [address] | | | - LABORATORY | | [...] [address] | [place] | [phone] | | [facility] | | [address] | | | - LABORATORY | | [...] [address] | [place] | [phone] | | [facility] | | [address] | | | - LABORATORY | | [...] [address] | [place] | [phone] | | [facility] | | [address] | | | - LABORATORY | | [...] | | | | BINU MACK MD ([id number]) | | | | | | on [...] | mL/min/1.73m2 | [facility] | | | Burmese | RATE,ESTIMATED | | MEDICAL | | | | mL/min/1.46j0Hyny than | | CENTER - | | [...] + | [facility] | [address] | [place] | [phone] | | [facility] | | [address] | | | - LABORATORY | | [...] [address] | [place] | [phone] | | [facility] | | [address] | | | - LABORATORY | | [...] arthroplasty changes. Multiple lead wires overlie the ockzi-vb-iaql. | | | Overall unchanged aeration of [...] | | Multiple lead wires overlie the fxpwe-gy-bnlp. | | | | Overall unchanged aeration [...] + | [facility] | [address] | [place] | [phone] | | [facility] | | [address] | | | - LABORATORY | | [...] [address] | [place] | [phone] | | [facility] | | [address] | | | - LABORATORY | | [...] + | [facility] | [address] | [place] | [phone] | | [facility] | | [address] | | | - LABORATORY | | [...] | mL/min/1.73m2 | [facility] | | | Burmese | RATE,ESTIMATED | | MEDICAL | | | | mL/min/1.55j3Nwnm than | | CENTER - | | [...] + | [facility] | [address] | [place] | [phone] | | [facility] | | [address] | | | - [...] [address] | [place] | [phone] | | [facility] | | [address] | | | - LABORATORY | | [...] [address] | [place] | [phone] | | [facility] | | [address] | | | - LABORATORY | | [...] | | | | BINU MACK MD ([id number]) | | | | | | on [...] | | | | BINU MACK MD ([id number]) | | | | | | on [...] | [employer] | | | [facility] | | | | | | [...] [address] | [place] | [phone] | | [facility] | | [address] | | | - LABORATORY | | [...] [address] | [place] | [phone] | | [facility] | | [address] | | | - LABORATORY | | [...] [address] | [place] | [phone] | | [facility] | | [address] | | | - LABORATORY | | [...] | | | | mg/dL | [facility] | | | | | | MEDICAL | | | | | | CENTER - | | | | | | LABORATORY | | + + + + + + | eGFR, | 43 (L)Comment: | >=60 | [facility] | | | non- | GLOMERULAR FILTRATION | mL/min/1.73m2 | [facility] | | | Burmese | RATE,ESTIMATED | | MEDICAL | | | | mL/min/1.00h3Ctwp than | | CENTER - | | [...] ST. | [address] | [place], [place] | [phone] | | [facility] | | [address] | | | - LABORATORY | | [...] + | [facility] | [address] | [place], [place] | [phone] | | [facility] | | [address] | | | - LABORATORY | | [...] + | [facility] | [address] | [place] | [phone] | | [facility] | | [address] | | | - LABORATORY | | [...] [address] | [place] | [phone] | | [facility] | | [address] | | | - LABORATORY | | [...] | | | | BINU MACK MD ([id number]) | | | | | | on [...] 05/08/2017 | [facility] | | 9:20 AMMRN: [id number] #: [id number] of : | | | 1935dmit Type: InpatientAge: 81Room: [facility] 02Gender: MaleNote | | | Status: FinalizedAttending MD: Peter Maciel , [facility]ENTERrocedure: | | | Upper GI endoscopyIndications: Gastrointestinal | | | bleeding of unknown originProviders: Peter Maciel MD, | | | Malka Dueañs RN, Amelie Cabral | | | Sukumar, Diesel Inspector, Miguel Galicia MD | | | (Anesthesia [...] | | | the anesthesiologist and the boiler technician in the pre-procedure | | | [...] Scope In: 9:35:52 AMScope Out: 9:41:03 AM [facility]. | | | [facility], [address] [place] [address] | | | [phone] | | | - A small amount [...] |Scope Out: 9:41:03 AM | | | [facility], [address] [place], [place] | | | [address] | | + + -+ + +---------+ + + | Performing | Address | City/State/[facility] Hospitalcode | Phone Number | | Organization [...] + | [facility] | [address] | [place] | [phone] | | [facility] | | [address] | | | - LABORATORY | | [...] | mL/min/1.73m2 | [facility] | | | Burmese | RATE,ESTIMATED | | MEDICAL | | | | mL/min/1.46a2Tvzd than | | CENTER - | | [...] [address] | [place] | [phone] | | [facility] | | [address] | | | - LABORATORY | | [...] + | [facility] | [address] | [place] | [phone] | | [facility] | | [address] | | | - LABORATORY | | [...] mL/min/1.73m2 | [facility] | | | Burmese | RATE,ESTIMATED | | MEDICAL | | | | mL/min/1.76q3Civj than | | CENTER - | | [...] + | [facility] | [address] | [place] | [phone] | | [facility] | | [address] | | | - LABORATORY | | [...] [address] | [place] | [phone] | | [facility] | | [address] | | | - LABORATORY | | [...] [address] | [place] | [phone] | | [facility] | | [address] | | | - LABORATORY | | [...] + | [facility] | [address] | [place] | [phone] | | [facility] | | [address] | | | - LABORATORY | | [...] + | [facility] | [address] | [place] | [phone] | | [facility] | | [address] | | | - LABORATORY | | [...] [address] | [place] | [phone] | | [facility] | | [address] | | | - LABORATORY | | [...] + | [facility] [facility] | [address] | [place] | [phone] | | [facility] | | [address] | | | - LABORATORY | | [...] - 1.030 | [facility] | | | [place], | | | [facility] | | [...] + | [facility] | [address] | [place], [place] | [phone] | | [facility] | | [address] | | | - LABORATORY | | [...] | | | | BINU MACK MD ([id number]) | | | | | | on [...] | | | | | | [employer] | | | | | [...] [address] | [place] | [phone] | | [facility] | | [address] | | | - LABORATORY | | [...] ST. | [address] | [place] | [phone] | | [facility] | | [address] | | | - LABORATORY | | [...] eGFR, | 53 (L)Comment: | >=60 | [facility] | | | non- | GLOMERULAR FILTRATION | mL/min/1.73m2 | [facility] | | | Burmese | RATE,ESTIMATED | | MEDICAL | | | | mL/min/1.86u5Dkku than | | CENTER - | | [...] | | | | mg/dL | [facility] | | | | | | [...] [address] | [place] | [phone] | | [facility] | | [address] | | | - LABORATORY | | [...] [address] | [place] | [phone] | | [facility] | | [address] | | | - LABORATORY | | [...]
--- OUTSIDE RECORDS SUMMARY | ~2020-05-18 | XMS | Encounter Summary ---
Demographics + + + | Address | [address] | | | [place] [address] | + + + | Home Phone [...] Team Providers + +------+ + | Care Sole Conditioner Name | Role | Phone | + [...] + + | 05/07/ | Hospital | [facility] | Raphael Karimi, | Gastrointestinal | | 2017 - | Encounter | MED CTR ICU [address] | hemorrhage, | | | | [place], | [place], [place] | unspecified | | 05/16/ | | [place] [address] | [id number] | gastrointestinal | | 2017 | | [phone] | | hemorrhage type | | | | | Yodit Philippe MD | (Primary Dx); Atrial | | | | | [address] | fibrillation with | | | | | [place], [place] | RVR ([facility]); Acute on | | | | | [address] [address], | chronic diastolic | | | | | MD Susan [address] | (congestive) heart | | | | | [address] [place] | failure ([facility]); 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 1935 Admit date: 05/07/2017 Discharge [...] significantly so this was dis continued. The assistant secretary recommended putting in a permanent pacemaker and [...] Care Everywhere.Pacemaker Impla ntation, Discharge Instructions for (Turkish)documented in this encounter Medications at Time of [...] Philippe MD - 06/04/2017 8:18 PM PDT [facility] HOSPITALIST PROGRESS NOTE Patient: Jacklyn Siddiqi : 1935: Age: 81 y.o. MedRec: [id number] PCP: Antonio Paulino MD Admission date: 05/07/2017 [...] as outlined above. Yodit Philippe 06/04/2017 20:18 [facility] Shawn Lewis, [facility] [place] Software Architect - 05/16/2017 9:29 AM PDTFormatting of this [...] am: INR 4. Warfarin education received NO- scow captain. 5. Pharmacist to follow daily Warfarin Dosing Nomogram Warfarin Dosing Expectations Per P&T-approved Electronically signed by: Shawn Mercedes, Busboy 05/16/2017 9:29 Michael Giang MD - 05/16/2017 [...] DOPamine Stopped (05/12/17 0745) norepinephrine Stopped (05/11/17 6625) OBJECTIVE: PHYSICAL EXAM Latest VS: BP 121/41 [...] He is in a class IIo f [place] [employer] functional class. There is mild [...] made to ensure accuracy; however, inadvertent computerized dross puller errors may be pre sent. Electronically signed by: Cruzito Bird MD 05/16/2017 7:18 Susan Diaz MD - 05/15/2017 7:43 PM PDT [facility] HOSPITALIST PROGRESS NOTE Patient: Jacklyn Siddiqi : 1935: Age: 81 y.o. MedRec: [id number] PCP: Antonio Paulino MD Admission date: 05/07/2017 [...] ou tlined above. Susan Vides 05/15/2017 19:43 [facility] Jessica Rivas PharmD - 05/15/2017 7:41 [...] am: INR 4. Warfarin education received NO- scow captain. 5. Pharmacist to follow daily Warfarin [...] Sinus rhythm Confirmed by BINU MACK MD ([id number]) on 05/15/2017 5:56:04 AM ECG 12 lead [...] Sinus rhythm Confirmed by BINU MACK MD ([id number]) on 05/15/2017 5:57:23 AM CBC no Differential [...] He is in a class IIo f [place] Heart [employer] functional class. There is mild [...] made to ensure accuracy; however, inadvertent computerized dross puller errors may be pre sent. Electronically signed by: Cruzito Bird MD 05/15/2017 6:36 Susan Diaz MD - 05/14/2017 8:48 PM PDT [facility] HOSPITALIST PROGRESS NOTE Patient: Jacklyn Siddiqi : 1935: Age: 81 y.o. MedRec: [id number] PCP: Antonio Paulino MD Admission date: 05/07/2017 [...] ou tlined above. Susan Vides 05/14/2017 20:48 [facility] Jessica Rivas PharmD - 05/14/2017 4:08 [...] am: INR 4. Warfarin education received NO- scow captain. 5. Pharmacist to follow daily Warfarin [...] treatment were discussed with the patient in [facility]. The patient decides to proceed with the procedure. 2. Resume Coumadin after procedure today. 3. Start amiodarone oral loading today to treat A. fib with RVR. Portions of this report were transcribed using voice recognition software. Every effort wa s made to ensure accuracy; however, inadvertent computerized dross puller errors may be pre sent. Electronically signed by: Cruzito Bird MD 05/14/2017 6:25 row, Yodit Ramsay MD - 05/13/2017 7:23 AM PDTForm atting of this note might be different from the original. [facility] HOSPITALIST PROGRESS NOTE Patient: Jacklyn Siddiqi : 1935: Age: 81 y.o. MedRec: [id number] PCP: Antonio Paulino MD Admission date: 05/07/2017 [...] has lengthened Confirmed by BINU MACK MD ([id number]) on 05/13/2017 6:24:02 AM Culture, Blood Result [...] arthroplasty changes. Multiple lead wires overlie the tfhhe-xz-pxbz. Overall unchanged aeration of the lungs with [...] apnea) Patient was tested (positive) at the [facility], w as provided with CPAP, slept "all [...] awake and requires oxygen when a sleep. B-CLIENT SERVICES DIRECTOR 488 on arrival. Echo 02/2017 showed EF [...] Pulmonary HTN Mild to severe by echo 9718-0194. Never smoked tobacco and no documente d [...] associated falls, on e occurring at the [facility] the day of admission and one [...] as outlined above. Yodit Philippe 05/13/2017 7:23 [facility] row, Yodit Ramsay MD - 0 05/12/2017 10:27 AM PDT [facility] HOSPITALIST PROGRESS NOTE Patient: Jacklyn Siddiqi : 1935: Age: 81 y.o. MedRec: [id number] PCP: Antonio Paulino MD Admission date: 05/07/2017 [...] arthroplasty changes. Multiple lead wires overlie the enxip-wg-lzbu. Overall unchanged aeration of the lungs with [...] as outlined above. Yodit Philippe 05/12/2017 10:27 [facility] row, Yodit Ramsay MD - 0 05/11/2017 2:21 PM PDT [facility] HOSPITALIST PROGRESS NOTE Patient: Jacklyn Siddiqi : 1935: Age: 81 y.o. MedRec: [id number] PCP: Antonio Paulino MD Admission date: 05/07/2017 [...] with rate 70-80 on dopamine 5 mcg/min. [place] systolic valve cli ck at [facility]. Respiratory: [...] arthroplasty changes. Multiple lead wires overlie the vqgdg-he-wuhd. Overall unchanged aeration of the lungs with [...] as outlined above. Yodit Philippe 05/11/2017 14:21 [facility] R N - 05/10/2017 7:34 [...] 05/10/2017 7:03 PM PDT HOSPITALIST progress NOTE [facility] 05/10/2017 Rounding Physician: Yodit Philippe MD Patient Name: Jacklyn Siddiqi : 1935 Medical Record: [id number] Primary Hospital Problem: Atrial fibrillation with RVR [...] made to ensure accuracy; however, inadvertent computerized dross puller errors and typos m ay be present Electronically signed by: Yodit Philippe MD, DATE/TIME: 05/10/2017 19:03 [facility] HOSPITALIST TEAM ania Cervantes RN - 05/10/2017 4:33 PM [facility]TReport to [facility] resting. Yodit Olmos MD - 05/10/2017 3:59 PM PDTForma tting of this note might be different from the original. [facility] HOSPITALIST PROGRESS NOTE Patient: Jacklyn Siddiqi : 1935: Age: 81 y.o. MedRec: [id number] PCP: Antonio Paulino MD Admission date: 05/07/2017 [...] Atrial fibrillation Confirmed by FREDERICK CHARLTON, BINU ([id number]) on 05/10/2017 5:50:22 AM No results found. [...] as outlined above. Yodit Philippe 05/10/2017 15:59 [facility] Tania House RN - 05/10/2017 2:15 [...] commode and one pers on assist. monitoring manager shows Sinus Tach with BBB. Patient on RA with sats 100%Electroni cece signed by Tania Cervantes RN at 05/10/2017 12:54 PM PDTCrow, Yodit Ramsay MD - 05/09/2017 8:11 PM PDT [facility] HOSPITALIST PROGRESS NOTE Patient: Jacklyn Siddiqi : 1935: Age: 81 y.o. MedRec: [id number] PCP: Antonio Paulino MD Admission date: 05/07/2017 [...] as outlined above. Yodit Philippe 06/04/2017 20:12 [facility] Nancy Perales RN - 0 05/09/2017 1:59 PM PDTEvaluated pt for PICC line, upon review of chart placed midline 4 fren ch in left cephalic. Pt Needing IV access for blood draw and occasional IVP medication.Barbara ctronically signed by Nancy Arechiga RN at 05/09/2017 2:01 PM Yodit Olmos MD - 05/08 8:15 PM PDT [facility] HOSPITALIST PROGRESS NOTE Patient: Jacklyn Siddiqi : 1935: Age: 81 y.o. MedRec: [id number] PCP: Antonio Paulino MD Admission date: 05/07/2017 [...] as outlined above. Yodit Philippe 06/04/2017 20:15 [facility] Mary Vargas RN - 05/08/2017 2:57 [...] and RT notified. O2 2 L via CLIENT SERVICES DIRECTOR applied. O2 sat increased to 91%. Maintained [...] and direction x MAR from SNF facility: [facility] Vaccines up to date? Yes No Unsure [...] performed and electronically signed by Isa Kaufman, Wreath Maker 16:14 Reviewed by: Dolly Rizzo, PharmAsaf 05/07/2017 19:29 Иван Escudero RN - 05/07/2017 7:30 PM PDTIcu called HR as high as 150 then down to 110, lung reilly nds with crackles in bases, SOB noted with any exertion, Dr Maciel here to see pt. Dicussed w mrailee Blankenship,concern re: IVF at 50 cc/hr, and [...] remove, d/t just being placed today at [facility], son r corinna pt does have open [...] Ramsay MD - 05/07/2017 2:14 PM PDT [facility] Pt. [...] convenience store. Usually receives care at the [facility] or nearer his home. He resides in [...] CT scan 2003 at [facility] CAD (coronary artery disease) 2004 Had CABG to LAD (for 80-90% LAD) surgery done at [facility] CVA (cerebral infarction) -2014 lacunar (not stated as new nor old) Dementia Diastolic CHF (HCC) Echo 2013 EF 68, ascites, pulm HTN Endocarditis 2009 Enterococcus 6 weeks Amp + Gent H/O aortic valve replacement 2004 [facility] Rupert AVR INR goal is 2-3, surgery done at [facility] Hypertension Liver cirrhosis (HCC) Over-anticoagulated 04/01/2015 Peripheral vertigo 2013 BPPV left PSA elevation 2009 Pt declined Bx then Pulmonary HTN (HCC) Severe on Echo 2014 Retinal detachment 2011 Venous ulcer 2014 Leg Past Surgical History: Procedure Laterality Date CARDIAC SURGERY 2005 [facility] says CABG and [facility] [place]pert AVR FAMILY [...] signed by: Yodit Philippe MD 05/07/2017 14:14 [facility] documented in this enc ounter Procedure Notes [...] obtained, the patient was taken to the cathode ray tube assembler. 1 g of cefaz jamel was given [...] pulled through into the pocket. A 6 Moroccan sheath was p laced over the guidewire and the core was removed. The additional guidewires were inserted through the sheath. The sheath was then removed. The guidewires were secured by hemostat, leaving one guidewire to be utilized for placement of an 8 [place]oc[place] safe sheath. A safe sheat h core [...] same technique as mentioned above, another 8 [place] safe sheath was utilized to i ntroduce [...] Rupert, model #: PM 2272, serial #: [id number]. B. Atrial lead: [place], length 46 cm, model #: LPA 1200 M, serial #: [id number]. C. Ventricular lead: [place], length 52 cm, model #: LPA 1200M, serial #: [id number]. PACEMAKER TESTING: A. Atrial lead: Sensing 2.4 [...] obstructive sleep apnea. He was admitted to [facility] on 05/07/2017 for Atrial fibrillation with RVR [...] CT scan 2003 at [facility] CAD (coronary artery disease) 2004 Had CABG to LAD (for 80-90% LAD) surgery done at [facility] CVA (cerebral infarction) -2014 lacunar (not stated as new nor old) Dementia Diastolic CHF (HCC) Echo 2013 EF 68, ascites, pulm HTN Endocarditis 2009 Enterococcus 6 weeks Amp + Gent H/O aortic valve replacement 2004 [facility] Rupert AVR INR goal is 2-3, surgery done at [facility] Hypertension Liver cirrhosis (HCC) Over-anticoagulated 04/01/2015 [...] with Anesthesia; Surgeon: Peter Maciel MD; [facility] FAMILY HISTORY Family [...] Oral Daily IV INFUSIONS: DOPamine Stopped (05/12/17 5548) norepinephrine Stopped (05/11/17 5523) ALLERGIES Allergies Allergen Reactions Latex Rash REVIEW [...] has lengthened Confirmed by FREDERICK CHARLTON, BINU ([id number]) on 05/13/2017 6:24:02 AM Culture, Blood Collection [...] He is in a class II of [place] [employer] functional class. There is fluid [...] patient. Electronically signed by: Cruzito Bird MD [facility] 05/13/2017 7:03 Portions of this chart may have been created with eyeQ voice recognition software. Occasi onal wrong-word or sound-alike substitutions may have occurred due to the inherent carter itations of voice recognition software. Please read the chart carefully and recognize, using context, where these substitutions have occurred. Amelie Alvarez RN - 05/08/2017 11:53 AM PDTAssociated O rder(s): IP CONSULT TO WOUND OSTOMY NURSEJosefina Siddiqi is a [facility] who [facility], that has the [place] 2 placed every /Sat which were just placed yesterday . Per the patient he has two ulcerations to the left LE POA. His son and him do not want the wraps removed until SaturdayMay 10 please. OT and Nursing to document wound/ulcers at that session. Have requested [facility] medical records as well to have in the paper chart. Amelie Pack RN [facility] Ext [phone] docume nted in this encounter ED Notes [...] CT scan 2003 at [facility] CAD (coronary artery disease) 2004 Had CABG to LAD (for 80-90% LAD) surgery done at [facility] CVA (cerebral infarction) -2014 lacunar (not stated as new nor old) Dementia Diastolic CHF (HCC) Echo 2013 EF 68, ascites, pulm HTN Endocarditis 2009 Enterococcus 6 weeks Amp + Gent H/O aortic valve replacement 2004 [facility] Rupert AVR INR goal is 2-3, surgery done at [facility] Hypertension Liver cirrhosis (HCC) Over-anticoagulated 04/01/2015 [...] UA, POC Negative Negative, 100 mg/dL Specific [place], UA, POC 1.025 1.001 - 1.030 Blood, [...] Kwok MD - 05/16/2017 2:20 PM PDT [facility] FACILITY TRANSFER ORDERS Patient Name: Jacklyn Siddiqi Patient : 1935 Gender: male Date of Admission: 05/07/2017 Date of Discharge: 05/16/2017 Admitting Provider: Yodit Philippe MD Discharging Provider: Susan Vides MD Consultants: Dr Nettles PCP: Antonio Paulino [facility] transferring to: [facility] Provider after transfer: CODE STATUS: [x] Attempt CPR [] Do not resuscitate If patient is pulseless and not breathing, RN/JIG BUILDER HELPER may pronounce . Advanced Directives included: [] [...] Reactions Latex Rash Diet: [x] As tolerated FLYING II INSTRUCTOR may upgrade or downgrade diet as condition [...] Whole [] Thin Liquids [] Cut-up [] Struthers Thick [] Advanced Chopped [] Honey Thickened [] Chopped [] Advanced Ground [] 1:1 feedings [] Ground/Pureed [] Other: Tube Feedings: [] PEG [] GT [] JT [] NGT [] Formula type: (Edge Grinder may change/substitute if indicated). [] Continuous Rate: [...] & Management for: restrict ed limb [] FLYING II INSTRUCTOR Evaluation &Management for: [] Other: Wound/Skin Care: [...] Susan SAWYER MD, certify that post hospital custodial care is medically nece ssary on a continuing basis for any of the conditions for which he/she received care during this hospitalization. Check one: [x] Skilled [] Intermediate Additional Orders/Instructions Physician's signature: Susan Jarvis MD05/16/2017 14:20 [facility]SING [facility] USE ONLY: [] Admitting orders [...] Therapy Discharge Recommendations are: Recommended discharge disposition: custodial facility Post discharge physical therapy recommendation: will [...] for assist for safety Bed-Chair, [place]: contact guard assist, set up required, verbal cues requir ed Chair-Bed, Level [place]: contact guard assist, set up required, verbal cues requir ed Epm-Holbf-Dug, Assistive Device: 2 wheeled walker (FWW) Sit-Stand, Level of [place]: contact guard assist, verbal cues required Stand-Sit, Level of [place]: contact guard assist, verbal cues required Ndk-Oemou-Jjr, Assistive Device: 2 wheeled walker (FWW) Safety Issues: weight-shifting ability decreased Impairments: pain, strength decreased Bed Mobility increased time and need for frequent redirection Assistive Device: bed rails Supine to Sit, Level of [place]: contact guard assist Sit to Supine, Level of [place]: (NT, pt left sitting in bedside chair) [...] STG Status continued at 05/16/2017 1155 STG [place] Level modified independent, supervised at 05/09/2017 1700 [...] Improving This CM spoke with Elkin at [facility] this AM and she is ready to accept patient when he is medically stable and will arrange transport there for patient. She confirmed yahaira t they also have OT there to do his leg wraps. Efaxed the MD prog notes, PT OT notes, and med list to her. TN# [id number]. Manually faxed the completed PASRR to SNF. Pkt started and placed in ghost chart. Electronically signed by: Ana Dietrich RN 05/16/2017 10:27 11:14 Left message with Elkin, at [facility], letting her know that patient will be d ischarged today and would be ready this afternoon sometime. Requested a return call with pic k up time. Elkin returned call with 1430 picker operator time. Let bedside RN know. Left message with Jr Jacklyn, letting him know that his dad will be taken to the SNF today. Pkt completed with original completed PASRR, AVS, and Trazadone script. Given to lokie driver. Fa xed SNF transfer orders to [facility] with call to Elkin.Electronically signed by: Sangita [...] liter/minute, BS expiratory wheezes/fine crackles. lan of [facility] Nanda gandara RN - 05/16/2017 5:04 [...] with ambulation and transfers. lan of [facility] - Rob Dietrich RN - 05/15/2017 [...] afternoon and let him know that the [facility] would only be a short term rehab not truck terminal manager stay and that he would have to pay for the transpor t there, since he is non-service connected, per SAMEER [place], whom this called to confirm this above information. Jacklyn Joiner stated that his father will not go back to [facility], so reassured him yahaira t the internet media planner at [facility] would help find a truck terminal manager place for him since he will need to have full care for him to be safe. He understood this need. He appreciated the visit. Electronically signed by: Ana Dietrich RN 05/15/2017 17:55 lan of Care - Veila Gerard, PT - 05/15/2017 1:50 PM PDTFormatting [...] Therapy Discharge Recommendations are: Recommended discharge disposition: custodial facility Post discharge physical therapy recommendation: will [...] and attending to task Bed-Chair, Level of [place]: contact guard assist, set up required, verbal cues requir ed Chair-Bed, Level of [place]: contact guard assist, set up required, verbal cues requir ed Hhs-Uvtcs-Maf, Assistive Device: 2 wheeled walker (FWW) Sit-Stand, Level of [place]: contact guard assist, verbal cues required Stand-Sit, Level of [place]: contact guard assist, verbal cues required Fbu-Piijp-Hnp, Assistive Device: 2 wheeled walker (FWW) Safety Issues: weight-shifting ability decreased Impairments: pain, strength decreased Bed Mobility increased time and need for frequent redirection Assistive Device: bed rails Supine to Sit, Level of [place]: contact guard assist Sit to Supine, Level of [place]: (NT, pt left sitting in bedside chair) [...] STG Status continued at 05/15/2017 1315 STG [place] Level modified independent, supervised at 05/09/2017 1700 [...] forward to go to a rehab facil [facility] in the future. lan of Care - Maria Antonia Bullard, ACID TANK LINER - 05/15/2017 8:43 AM PDTProblem: Patient Care [...] his discharge plan. Let him know that [facility] has accepted him and he was [...] he did not even know that his [facility] er was in the hospital again. This CM was trying to get some help as to where patient was going to go after his rehab, si aze patient stated that his other son, Jacklyn Siddiqi Jr, is currently moving out all his belo ngings out of [facility] in [place], since he is too high level of [...] [facility] any bed for him. Let patient know that this will have to be done in the AM since they are already closed today. CM will need to call the [facility] in AM to see if patient is eligible for transfer to the [facility].Electronically signed by: Ana Dietrich RN 05/14/2017 18:04 lan of Care - Aleah, Erika Joya ACID TANK LINER - 05/14/2017 5:40 PM PDTProblem: Patient Care [...] expiratory phase . Requires 2 lpm at [facility] lan of Care - Emily Price RN [...] Therapy Discharge Recommendations are: Recommended discharge disposition: custodial facility Post discharge physical therapy recommendation: will [...] treatment from his children Bed-Chair, Level of [place]: contact guard assist, set up required, verbal cues requir ed Crt-Itlvu-Sri, Assistive Device: 2 wheeled walker (FWW) Sit-Stand, Level of [place]: contact guard assist, verbal cues required Stand-Sit, Level of [place]: contact guard assist, verbal cues required Qhd-Rfbdm-Fav, Assistive Device: 2 wheeled walker (FWW) Safety Issues: weight-shifting ability decreased Impairments: pain, strength decreased Bed Mobility increased time and need for frequent redirection Assistive Device: bed rails Supine to Sit, Level of [place]: contact guard assist Sit to Supine, Level of [place]: (NT, pt left sitting in bedside chair) [...] STG Status continued at 05/14/2017 1600 STG [place] Level modified independent, supervised at 05/09/2017 1700 STG Assistive Device 2 wheeled walker (FWW) at 05/09/2017 1700 [facility] Distance (feet) 50 at 05/09/2017 [...] re questing to use commode. OT and INSIDE SALES SPECIALIST assisted patient with functional t/f and limited [...] bed rails Supine to Sit, Level of [place]: contact guard assist Sit to Supine, Level of [place]: contact guard assist Transfers Sit-Stand, Level of [place]: stand by assist, contact guard assist Stand-Sit, Level of [place]: stand by assist, contact guard assist Bso-Xguro-Tza, Assistive Device: 2 wheeled walker (FWW) Toilet, Level of [place]: contact guard assist, stand by assist Toilet, Assistive Device: 2 wheeled walker (FWW) Impairments: pain, strength decreased OT Goal Review Date Flowsheet Row Most Recent Value STG Review Date 05/16/17 at 05/09/2017 1604 LB Dressing Goal Flowsheet Row Most Recent Value STG Status new at 05/14/2017 1045 STG [place] Level modified independent at 05/14/2017 1045 Toilet Transfer Goal Flowsheet Row Most Recent Value STG Status new at 05/14/2017 1045 STG [place] Level supervised at 05/14/2017 1045 STG Assistive [...] Spiritual Evaluation: Patient is a "Bible Believing Mosque" loves to pray and read the "Word." Spiritual Intervention: Listened to the patient's concerns about the upcoming procedure. Active Listening, past oral presence, and prayer was offered. Spiritual Outcomes: Patient appreciates inspector integrated circuits's prayer, seems less apprehensive. Spiritual Goals / Follow-up: Will see the patient as requested. If there are any other spiritual care issues that arise, please contact inspector integrated circuits. lan of Care - Kristina Ayers, ACID TANK LINER - 05/13/2017 3:57 PM PDTProblem: Patient Care [...] Therapy Discharge Recommendations are: Recommended discharge disposition: custodial facility Post discharge physical therapy recommendation: will benefit from structured setting, ongo ing low intensity therapy Equipment Recommendations: 2 wheeled walker (FWW) Planned Interventions: balance training, gait training, strengthening Recommended Frequency: daily Patient Status/Goals: Reflects last filed data and may be from multiple contributors. Gait side-stepping at bedside Level of [place]: 2 person assist required Assistive Device: 2 wheeled walker (FWW) Transfers pt weak and with dizziness, need for CGA for safety due to symptoms Sit-Stand, [place]: stand by assist, contact guard assist Stand-Sit, [place]: stand by assist, contact guard assist [id number]-Mpgte-Uba, Assistive Device: 2 wheeled walker (FWW) Safety Issues: weight-shifting ability decreased Impairments: pain, strength decreased Bed Mobility increased time d/t fatigue Assistive Device: none Supine to Sit, [place]: contact guard assist Sit to Supine, [place]: contact guard assist Functional Endurance impaired - SOB with limited activity [facility] BASIC MOBILITY [facility] BASIC MOBILITY Turning over in [...] steps with a railing: dependent/unable TOTAL - [facility] BASIC MOBILITY : 14 Unable / dependent = 1 A lot / modA = 2 A little / Guillermo = 3 None / independent = 4 Completed the [facility] Activity Measure for Post Acute Care (-PAC) "6 Clicks" [facility] Mobility Inpatient Short Form. This version [...] STG Status continued at 05/12/2017 1203 STG [place] Level modified independent, supervised at 05/09/2017 1700 STG Assistive Device 2 wheeled walker (FWW) at 05/09/2017 1700 STG Distance (feet) 50 at 05/09/2017 1700 Electronically signed by: Velia Gerard, PT, 05/13/2017 13:50 lan of Reena - Ana Villeda i, RN - 05/13/2017 12:57 PM PDTProblem: Discharge Planning Goal: Patient will be discharged in a safe manner Outcome: Improving This CM called Elkin at [facility], p# [phone], and she confirmed that she has a [...] appropriately. lan of Care - Sumeet Burr, ACID TANK LINER - 05/13/2017 4:47 AM PDTProblem: Patient Care [...] sleeping. lan of Care - Javier Arana, GOLF CADDY - 05/12/2017 11:50 AM PDT Problem: Patient [...] unable to step in place Level of [place]: 2 person assist required Assistive Device: 2 wheeled walker (FWW) Distance (feet): 15, 15 Transfers pt very weak with low BP, CGA to Min Assist for sit<>stand Sit-Stand, [place] of [place]: stand by assist, contact guard assist Stand-Sit, Level of [place]: stand by assist, contact guard assist Fpk-Ixjrp-Qob, Assistive Device: 2 wheeled walker (FWW) Safety Issues: weight-shifting ability decreased Impairments: pain, strength decreased Bed Mobility NT; pt up in chair on arrival requested to stay up in chair post tx Assistive Device: none Supine to Sit, Level of [place]: independent Sit to Supine, Level of [place]: independent Therapeutic Exercise pt c/o of pain [...] STG Status continued at 05/12/2017 1203 STG [place] Level modified independent, supervised at 05/09/2017 1700 [...] urine an hour. lan of Care - [facility] amina Nataly Mccormick, ACID TANK LINER - 05/12/2017 12:36 AM PDTProblem: Patient Care [...] tare. lan of Care - Donato Mcqueen, ACID TANK LINER - 05/11/2017 4:33 PM PDTProblem: Patient Care [...] due to fear of falling Level of [place]: 2 person assist required Assistive Device: 2 wheeled walker (FWW) Distance (feet): 15, 15 Stairs unable Bed Mobility Assistive Device: none Supine to Sit, Level of [place]: independent Sit to Supine, Level of [place]: independent Therapeutic Exercise Seated exercises: bilateral, long [...] STG Status new at 05/09/2017 170 STG [place] Level modified independent, supervised at 05/09/20171699 STG [...] non adherent drsg. lan of Sudhakar Dahl, ACID TANK LINER - 0 05/10/2017 4:23 AM PDTProblem: Patient [...] [facility] [place] [facility] [place] I faxed a referral to both facili [...] due to fear of falling Level of [place]: 2 person assist required Assistive Device: 2 wheeled walker (FWW) Distance (feet): 15, 15 Stairs NT Bed Mobility Assistive Device: none Supine to Sit, Level of [place]: independent Sit to Supine, Level of [place]: independent Balance ongoing assessment needed Therapeutic Exercise [...] STG Status new at 05/09/2017 1700 STG [place] Level modified independent, supervised at 05/09/2017 1700 [...] Joanna Manning RN - 05/09/2017 6:30 AM [id number] (late entry) pt has remained in [facility] ft, HR 102-110, BBB, occasional [...] was contacted and he was transferred to [place] at 1136. At about 1445 his HR increas ed to 180 and he became hypotensive. Placed in Trendelenburg position and Dr. Philippe was conta cted. Orders received for metoprolol. Converted to a sinus tach at 1500 Bp improved. No fal ls. Breath sounds dim but clear. Left leg pain has been improved and Jcaklyn has had no furt her skin breakdown. [...] a safe manner Outcome: Improving This case therapist spoke with patient's POA and son Jacklyn Siddiqi regarding patient's discharg e plan. Son states that he now lives at [facility]. He was living at [facility] prior to [facility]. He has been living at [facility] about a month. Son states that they [...] they do go on daily walks around [facility]. Son states that he would appreciate case management to follow up with the RN at [facility] as well with him in coordinating a discharge back there. Son states that he is his transp ortation and will transport him back when stable. [phone] Rhianna states that there has been a [...] a time to come assess patient. If [facility] will not accept this patient back to [...] PM PDTPt's Telemetry reading HR 150's-200. This COTTON GINNER HELPER we nt over to assess pt. Who was lying in bed talking on the phone with a family member. He den ies chest pain, SOB and/or a fluttering feeling in his chest. SBP 108/58. Pt.'s RN is at [facility]. EKG ordered and Dr. Philippe contacted about elevated HR concerns. Pt. To be transferred over to the ICU for closer monitoring. Electronically signed by Mary Cantu RN at 04/20 2:07 PM PDTD-C Instructions Provation - Peter Maciel MD - 05/08/2017 9:20 AM PDT Discharge Instructions for Upper Endoscopy Patient: Jacklyn Siddiqi : 1935 Acct: [id number] Exam Date: Monday, May 08, 2017 Doctor: [...] If unable to reach your physician, call [facility] Emergency Department at Ext. 2500 Your [...] 11:10 AM PDTPt [place] been at the [place] this am and was heading back home [...] Dx); | | | | | [place] [address] | Pacemaker Dual | | | | | [phone] | Chamber, MRI | | | | [...] [place] | | | | | | [address] | | | | | | | [...] | | Note - | | | Rd[place], | | | Lab In | | [...] | | | ?MRN: | | | [id number] | | | [id number] | | | his | | | [...] | | | ent/cd | | | [id number] | | | -[id number]- | | | [...] | | | St. | | | [place] | | | y H. | | [...] | | | St. | | | [place] | | | y H. | | [...] | | | St. | | | [place] | | | y H. | | [...] | | | St. | | | [place] | | | y | | | [...] [address] | [place] | [phone] | | [facility] | | [address] | | | - LABORATORY | | [...] [address] | [place] | [phone] | | [facility] | | [address] | | | - LABORATORY | | [...] non- | GLOMERULAR FILTRATION | mL/min/1.73m2 | [facility] | | | [place] | RATE,ESTIMATED | | MEDICAL | | | | mL/min/1.40i4Moiv than | | CENTER - | | [...] + | [facility] | [address] | [place] | [phone] | | [facility] | | [address] | | | - LABORATORY | | [...] [address] | [place] | [phone] | | [facility] | | [address] | | | - LABORATORY | | [...] | | | | BINU MACK MD ([id number]) | | | | | | on [...] | | | | BINU MACK MD ([id number]) | | | | | | on [...] was | | | taken to the cathode ray tube assembler. 1 g of cefazolin was given intravenously. | | | Patient was hooked up to EKG, pulse oximetry and blood pressure | | | monitoring. All parameters were kept stable during procedure. The | | | [employer] [place] pacemaker commercial pest control representative was present in the operating room. [...] the | | | pocket. A 6 Moroccan sheath was placed over the guidewire and the core | | | was removed. The additional guidewires were inserted through the | | | sheath. The sheath was then removed. The guidewires were secured | | | by hemostat, leaving one guidewire to be utilized for placement of an | | | 8 Moroccan safe sheath. A safe sheath core and [...] same technique as mentioned above, another 8 Moroccan safe sheath | | | was utilized [...] #: LPA 1200 M, serial #: [id number]. C. | | | Ventricular lead: [place], length 52 cm, model #: LPA 1200M, serial | | | #: [id number]. PACEMAKER TESTING: A. Atrial lead: Sensing 2.4 [...] #: PM 2272, serial #: | | |[id number]. | | | | | |B. Atrial lead: [place], length 46 cm, model #: LPA 1200 M, | | |serial #: [id number]. | | | | | |C. Ventricular lead: [place], length 52 cm, model #: LPA 1200M, | | |serial #: [id number]. | | | | | |PACEMAKER TESTING: [...] obtained, the patient was taken to the cathode ray tube assembler. | | 1 g of cefazolin was given intravenously. Patient was hooked up to EKG, pulse oximetry | | and blood pressure monitoring. All parameters were kept stable during procedure. The | | [employer] pacemaker commercial pest control representative was present in the operating room. [...] into the pocket. A 6 | | Moroccan sheath was placed over the guidewire and the core was removed. The additional | | guidewires were inserted through the sheath. The sheath was then removed. The | | guidewires were secured by hemostat, leaving one guidewire to be utilized for placement | | of an 8 [place]occan safe sheath. A safe sheath core and [...] as mentioned | | above, another 8 [place]occan safe sheath was utilized to introduce an [...] Rupert, model #: PM 2272, serial #: [id number]. | | Atrial lead: [place], length 46 cm, model #: LPA 1200 M, serial #: [id number]. | | Ventricular lead: [place], length 52 cm, model #: LPA 1200M, serial #: [id number] | | [id number].PACEMAKER TESTING: A. Atrial lead: Sensing 2.4 mV, [...] [address] | [place] | [phone] | | [facility] | | [address] | | | - LABORATORY | | [...] [place] | | | | | | [address] | | | | + + + + + + + + | Specimen | + + | Blood | + + + + + + + | Performing | Address | City/State/Zipcode | Phone Number | | Organization | | | | + + + + + | [facility] | [address] | [place] [address] | [phone] | + + + + + Ferritin [...] [address] | [place] | [phone] | | [facility] | | [address] | | | - LABORATORY | | [...] [address] | [place] | [phone] | | [facility] | | [address] | | | - LABORATORY | | [...] [place] | | | | | | [address] | | | | + + + + + + + + | Specimen | + + | Blood | + + + + + + + | Performing | Address | City/State/Zipcode | Phone Number | | Organization | | | | + + + + + | [facility] | [address] | [place] [address] | [phone] | + + + + + ECHO [...] Number 457 Patient Number | | | [id number] Date of Study 05/13/2017 Visit Number | | | [id number] Referring Physician | | | CRUZITO BIRD MD Number | | | MARGE FLOR Date of | | | 1935 Property Insurance Inspector TRELL LEWIS ANTONY Age | | | 81 year(s) Interpreting | | | MARGE FLOR | | | Security Installer CRUZITO BIRD MD Gender | | | Male Nurse | | | Stress Property Economist Procedure Type of Study TTE procedure: ECHO [...] | 51.23 ml | | | EF Zoulcdjlz63% Left Ventricle Diastolic Dimension: 4.23 | | [...] Volume: 51.23 ml | | | EF Cwfdufgrk33% | | | | | | Left [...] Room Number 457 Patient | | Number [id number] Date of Study 05/13/2017 Visit Number [id number] | | Referring Physician CRUZITO BIRD MD Number | | MARGE FLOR Date of 1935 | | Property Insurance Inspector TRELL LEWIS RDCS Age 81 year(s) Interpreting | | MARGE FLOR Security Installer CRUZITO | | MD MARGE Gender Male [...] LA Volume: 51.23 ml EF | | Ohhstkcew78% Left Ventricle Diastolic Dimension: 4.23 cm Systolic [...] LA Volume: 51.23 ml | | EF Qmjdxvvcg32% | | | | Left Ventricle | [...] | Monocytes | | K/uL | [facility] | | | | [...] ST. | [address] | [place], [place] | [phone] | | [facility] | | [address] | | | - LABORATORY | | [...] | | | | g/dL | [facility] | | | | [...] + | [facility] | [address] | [place] | [phone] | | [facility] | | [address] | | | - LABORATORY | | [...] mL/min/1.73m2 | [facility] | | | [place] | RATE,ESTIMATED | | MEDICAL | | | | mL/min/1.08k2Txfe than | | CENTER - | | [...] ST. | [address] | [place], [place] | [phone] | | [facility] | | [address] | | | - LABORATORY | | [...] + | [facility] | [address] | [place] | [phone] | | [facility] | | [address] | | | - LABORATORY | | [...] mL/min/1.73m2 | [facility] | | | [place] | RATE,ESTIMATED | | MEDICAL | | | | mL/min/1.46m8Boor than | | CENTER - | | [...] Ratio | appended report. These | | [facility] | | | | results have [...] [address] | [place] | [phone] | | [facility] | | [address] | | | - LABORATORY | | [...] + | [facility] | [address] | [place] | [phone] | | [facility] | | [address] | | | - LABORATORY | | [...] [address] | [place] | [phone] | | [facility] | | [address] | | | - LABORATORY | | [...] + | [facility] | [address] | [place] | [phone] | | [facility] | | [address] | | | - LABORATORY | | [...] | | | | BINU MACK MD ([id number]) | | | | | | on [...] non- | GLOMERULAR FILTRATION | mL/min/1.73m2 | [facility] | | | [place] Citizen | RATE,ESTIMATED | | MEDICAL | | | | mL/min/1.10q5Vfnd than | | CENTER - | | [...] ST. | [address] | [place], [place] | [phone] | | [facility] | | [address] | | | - LABORATORY | | [...] + | [facility] | [address] | [place] | [phone] | | [facility] | | [address] | | | - LABORATORY | | [...] arthroplasty changes. Multiple lead wires overlie the cbjqn-ts-eijd. | | | Overall unchanged aeration of [...] | | Multiple lead wires overlie the fpull-ar-zrnt. | | | | Overall unchanged aeration [...] + | [facility] | [address] | [place] | [phone] | | [facility] | | [address] | | | - LABORATORY | | [...] [address] | [place] | [phone] | | [facility] | | [address] | | | - LABORATORY | | [...] [address] | [place] | [phone] | | [facility] | | [address] | | | - LABORATORY | | [...] (H) | 7 - 18 mg/dL | [facility] | | | | | | [facility] | | | | | | MEDICAL | | | | | | CENTER - | | | | | | LABORATORY | | + + + + + + | Creatinine | 1.28 | 0.60 - 1.30 | [facility] | | | | | mg/dL | [facility] | | | | | | MEDICAL | | | | | | CENTER - | | | | | | LABORATORY | | + + + + + + | eGFR, | 54 (L)Comment: | >=60 | [facility] | | | non- | GLOMERULAR FILTRATION | mL/min/1.73m2 | [facility] | | | [place] | RATE,ESTIMATED | | MEDICAL | | | | mL/min/1.07l7Nqnx than | | CENTER - | | [...] + | [facility] | [address] | [place] | [phone] | | [facility] | | [address] | | | - LABORATORY | | [...] [address] | [place] | [phone] | | [facility] | | [address] | | | - LABORATORY | | [...] + | [facility] | [address] | [place] | [phone] | | [facility] | | [address] | | | - LABORATORY | | [...] | | | | BINU MACK MD ([id number]) | | | | | | on [...] | | | | BINU MACK MD ([id number]) | | | | | | on [...] [address] | [place] | [phone] | | [facility] | | [address] | | | - LABORATORY | | [...] [address] | [place] | [phone] | | [facility] | | [address] | | | - LABORATORY | | [...] ST. | [address] | [place], [place] | [phone] | | [facility] | | [address] | | | - LABORATORY | | [...] non- | GLOMERULAR FILTRATION | mL/min/1.73m2 | [facility] | | | [place] Citizen | RATE,ESTIMATED | | MEDICAL | | | | mL/min/1.14m6Nshm than | | CENTER - | | [...] [address] | [place] | [phone] | | [facility] | | [address] | | | - LABORATORY | | [...] + | [facility] | [address] | [place] | [phone] | | [facility] | | [address] | | | - LABORATORY | | [...] [address] | [place] | [phone] | | [facility] | | [address] | | | - LABORATORY | | [...] + | [facility] | [address] | [place] | [phone] | | [facility] | | [address] | | | - LABORATORY | | [...] | | | | BINU MACK MD ([id number]) | | | | | | on [...] 05/08/2017 | PROVATION | | 9:20 AMMRN: [id number] #: [id number] of : | | | 1935dmit Type: InpatientAge: 81Room: [facility] 02Gender: MaleNote | | | Status: FinalizedAttending MD: Peter Maciel , MDProcedure: | | | Upper GI endoscopyIndications: Gastrointestinal | | | bleeding of unknown originProviders: Peter Maciel MD, | | | Malka Dueñas RN, Amelie Cabral | | | Sukumar, Property Economist, Miguel Galicia MD | | | (Anesthesia [...] | | | the anesthesiologist and the railroad signal technician in the pre-procedure | | | [...] Scope In: 9:35:52 AMScope Out: 9:41:03 AM [facility]. | | | [facility], [address] [place] [address] | | | [phone] | | | - A small amount [...] |Scope Out: 9:41:03 AM | | | [facility]. [facility], [facility] [place] | | | [address] | | + + -+ + +---------+ [...] [address] | [place] | [phone] | | [facility] | | [address] | | | - LABORATORY | | [...] 1.42 (H) | 0.60 - 1.30 | [facility] | | | | | mg/dL | [facility] | | | | | | MEDICAL | | | | | | CENTER - | | | | | | LABORATORY | | + + + + + + | eGFR, | 48 (L)Comment: | >=60 | [facility] | | | non- | GLOMERULAR FILTRATION | mL/min/1.73m2 | [facility] | | | [place] Citizen | RATE,ESTIMATED | | MEDICAL | | | | mL/min/1.68c6Edfz than | | CENTER - | | [...] + | [facility] | [address] | [place] | [phone] | | [facility] | | [address] | | | - LABORATORY | | [...] [address] | [place] | [phone] | | [facility] | | [address] | | | - LABORATORY | | [...] eGFR, | 50 (L)Comment: | >=60 | [facility] | | | non- | GLOMERULAR FILTRATION | mL/min/1.73m2 | [facility] | | | [place] | RATE,ESTIMATED | | MEDICAL | | | | mL/min/1.77p5Qbio than | | CENTER - | | [...] [address] | [place] | [phone] | | [facility] | | [address] | | | - LABORATORY | | [...] [address] | [place] | [phone] | | [facility] | | [address] | | | - LABORATORY | | [...] + | [facility] | [address] | [place] | [phone] | | [facility] | | [address] | | | - LABORATORY | | [...] [address] | [place] | [phone] | | [facility] | | [address] | | | - LABORATORY | | [...] [address] | [place] | [phone] | | [facility] | | [address] | | | - LABORATORY | | [...] | bulin Ratio | | | [facility] | | | | | | MEDICAL [...] + | [facility] | [address] | [place] | [phone] | | [facility] | | [address] | | | - LABORATORY | | [...] [address] | [place] | [phone] | | [facility] | | [address] | | | - LABORATORY | | [...] - 1.030 | [facility] | | | [place], | | | [facility] | | [...] [address] | [place] | [phone] | | [facility] | | [address] | | | - LABORATORY | | [...] | | | | BINU MACK MD ([id number]) | | | | | | on [...] | | | | | | [employer] [place] [employer] | | | | | [...] [address] | [place] | [phone] | | [facility] | | [address] | | | - LABORATORY | | [...] + | [facility] | [address] | [place] | [phone] | | [facility] | | [address] | | | - LABORATORY | | [...] mL/min/1.73m2 | [facility] | | | [place] | RATE,ESTIMATED | | MEDICAL | | | | mL/min/1.09h1Fdge than | | CENTER - | | [...] + | [facility] | [address] | [place] | [phone] | | [facility] | | [address] | | | - LABORATORY | | [...] [address] | [place] | [phone] | | [facility] | | [address] | | | - LABORATORY | | [...] + + | Coronary artery disease involving [place] heart without angina pectoris, unspecified | | [...] | | | | | modification) on [facility] 05/09/17 at | | | | [...] | | | | First dose on [facility] 05/08/17 at 1445 | | AM [...] | | | | | | | [facility] 05/07/17 at 1730 | | | [...]
--- OUTSIDE RECORDS SUMMARY | ~2020-05-18 | XMS | Encounter Summary ---
Demographics + + + | Address | [address] | | | [place] [address] | + + + | Home Phone | | + + + | Preferred Language | Unknown | + + + | Marital Status | | + + + | Cheondoism Affiliation | 1061 | + + + [...] Team Providers + +------+ + | Care Co Teacher Name | Role | Phone | [...] | | | | Chronic | Emely, BOTTOM SPRAYER | Pulmonary | | | | | diastolic | [address] | Function [address] | | | | | (congestive) | [place] | [address] | | | | | heart | [place], [place] | [place], | | | | | failure | [address] | [place] [address] | | | | | (HCC) | Phone: | Phone: | | | | | Encounter | [phone] | [phone] | | | | | for | Fax: | Fax: | | | | | monitoring | [phone] | [phone] | | | | | amiodarone | | | | | | | therapy | | | | | | | Unspecified | | | | | | | atrial | | | | | | | fibrillation | | | | | | | (HCC) | | | | | | | Procedures | | | | | | | IN EVAL OF | | | | | | | BRONCHOSPASM | | | | | | | ,PROLONGED | | | | | | | IN DIFFUSING | | | | | | | CAPACITY | | | | | | | IN EVAL OF | | | | | | | BRONCHOSPASM | | | | | | | IN | | | | | | | PLETHYSMOGRA | | | | | | | PHY LUNG | | | | | | | VOLUMES W/WO | | | | | | | AIRWAY | | | | | | | RESIST IN | | | | | | | BREATHING | | | | | | | CAPACITY | | | | | | | TEST | | | +--------+--------+ + + + + Encounter Details +--------+ + + + + | Date | Type | Department | Care Team | Description | +--------+ + + + + | 06/26/ | Hospital | [facility] | Emely Gabriel, | Coronary artery | | 2018 | Encounter | MED CTR PULMONARY | BOTTOM SPRAYER [address] | disease involving | | | | FUNCTION [address] | [address] [place] | eyak coronary | | | | [address] [place], | [address] | artery of eyak | | | | [place] [address] | | heart without angina | | | | [phone] | | pectoris; | | | | | | 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 ([facility]); | | | | | | Essential | | | | | | hypertension; | | | | | | Chronic diastolic | | | | | | congestive heart | | | | | | failure ([facility]); | | | | | | Persistent atrial | | | | | | fibrillation ([facility]); | | | | | | Pacemaker | | | | | | reprogramming/check; | | | | | | Pacemaker Dual | | | | | | Chamber, MRI | | | | | | compatible, 05/14/17 | | | | | | [facility]; | | | | | | [facility] current | | | | | | [...] TESTING ORDERSPre-Procedure Diagnose(s): 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 [facility] signed by Antonio Hartman MD at 11:11 [...] Interrogation | | | | | [address] [place], | (Primary Dx); | | | | | [place] [address] | Pacemaker Dual | | | | | [phone] | Chamber, MRI | | | | | | compatible, 05/14/17 | | | | | | [facility]; | | | | | | 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) | +--------+ + + + + | 01/05/ | Office | Cardiology | AbhijitEmely irwin, | | | 2020 | Visit | | BOTTOM SPRAYER [address] | | | | | | St [place] | | | | | | [address] | | | | | | | [...] | | ORDERS | | PDT | eyak coronary | results section. | | | | | artery of eyak | | | | | | heart [...] Bird | | | | | | [facility] current | | | | | | use of amiodarone | | + +--------+ + + + | PFT PULMONARY | JUNAID | 06/27/2018 | Coronary artery | Results for this | | FUNCTION TESTING | | 11:09 AM | disease involving | procedure are in the | | ORDERS | | PDT | eyak coronary | results section. 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 No prior pulmonary function tests available for | | |comparison. 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
--- OUTSIDE RECORDS SUMMARY | ~2020-05-18 | XMS | Encounter Summary ---
Demographics + + + | Address | [address] | | | [place] [address] | + + + | Home Phone [...] Team Providers + +------+ + | Care Color Paste Mixing Supervisor Name | Role | Phone | [...] Monitor | CARDIOLOGY [address] | [address] [place] | Interrogation | | | | [place], | [place], | (Primary Dx); | | | | [place] [address] | [place] [address] | Pacemaker Dual | | | | [phone] | [phone] | Chamber, MRI | | | | [...] | [address] [facility] | Interrogation | | | | | [place], | (Primary Dx); | | | | | [place] [address] | Pacemaker Dual | | | | | [phone] | Chamber, MRI | | | | | | compatible, 05/14/17 | | | | | | [facility]; | | | | | | 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) | +--------+ + + + + | 01/05/ | Office | Cardiology | Emely Gabriel, | | | 2020 | Visit | | CONTRACTS OFFICER [address] | | | | | | St [place] [facility] [place] | | | | | | [address] | | | | | | | [...]
--- OUTSIDE RECORDS SUMMARY | ~2020-05-18 | XMS | Encounter Summary ---
Demographics + + + | Address | [address] | | | [place] [address] | + + + | Home Phone [...] Team Providers + +------+ + | Care Water Well Driller Name | Role | Phone | + [...] | CARDIOLOGY [address] | [address] | hypertension | | | | [place], | [place], | (Primary Dx) | | | | [place] [address] | [place] [address] | | | | | [phone] | [phone] | | | | | | | [...] Since that time, patient was seen at [facility] for edema seen on 07/08-07/12 because of [...] is physically active walking the hallways of [employer] a few times a day. 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 Patient was seen at [facility] for edema seen on 07/08-07/12. At that [...] He is in a class I of [place] [employer] functional class. There is no [...] 73 Y.O.(2) and Vascular disease (1). His [id number] score is 4, which gives an estimated [...] control strategy. 4. 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 [facility] [...] reviewed and edited this note. Melba Thompson Salt Plant Operator 07/31/2018 I, Basia Bird MD, personally performed the services described in this documentation, as scribed in my presence and it is both accurate and complete. Melba Thompson, Med Ass t 07/31/2018 10:41 Electronically signed by: Basia Bird MD [facility] 07/31/2018 Portions of this chart may have been created with [employer] voice recognition software. Occasi onal wrong-word or [...] Dx); | | | | | [place] [address] | Pacemaker Dual | | | | | [phone] | Chamber, MRI | | | | [...] [place] | | | | | | [address] | | | | | | | [...] BASIA | | | | | | ([id number]) on 07/31/2018 | | | | | [...]
--- OUTSIDE RECORDS SUMMARY | ~2020-05-18 | XMS | Encounter Summary ---
Demographics + + + | Address | [address] | | | [place] [address] | + + + | Home Phone | | + + + | Preferred Language | Unknown | + + + | Marital Status | | + + + | Adventism Affiliation | 1061 | + + + | Race | Unknown | + + + | Ethnic Group | Unknown | + + + Author + + + | Author | [facility] | | | and [place] | + + + | Organization | [facility] | | | and [...] Team Providers + +------+ + | Care Pin Maker Name | Role | Phone | [...] | 07/27/ | Procedure | [facility] [place] | Cruzito Bird, | Pacemaker | | 2019 | visit | CARDIOLOGY [address] | [address] | reprogramming/check | | | | [place], | [place], | (Primary Dx); | | | | [place] [address] | [place] [address] | Pacemaker Dual | | | | [phone] | [phone] | Chamber, MRI | | | | [...] cedure(s): DEVICE INTERROGATIONPre-Procedure Diagnose(s): Pacemaker reprogramming/check; Pac carmenker; Tachycardia-bradycardia syndrome (HCC) PATIENT NAME: Johnny Siddiqi [...] Dx); | | | | | [place] [address] | Pacemaker Dual | | | | | [phone] | Chamber, MRI | | | | | | compatible, 05/14/17 | | | | | | [facility]; | | | | | | 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) | +--------+ + + + + | 01/05/ | Office | Cardiology | Emely Gabriel, | | | 2020 | Visit | | SENIOR RESEARCH ANALYST [address] | | | | | | St [place], [place] | | | | | | [address] | | | | | | | [...]
--- OUTSIDE RECORDS SUMMARY | ~2020-05-18 | XMS | Encounter Summary ---
Demographics + + + | Address | [address] | | | [place] [address] | + + + | Home Phone | | + + + | Preferred Language | Unknown | + + + | Marital Status | | + + + | Jain Affiliation | 1061 | + + + | Race | Unknown | + + + | Ethnic Group | Unknown | + + + Author + + + | Author | [facility] | | | and [place] | + + + | Organization | [facility] | | [...] Team Providers + +------+ + | Care Estimator And Drafter Name | Role | Phone | + +------+ + PCP | Unavailable | + +------+ + Encounter Details +--------+ + + + + | Date | Type | Department | Care Team | Description | +--------+ + + + + | 12/02/ | Hospital | [facility] | Yordan Candelario, | | | 2012 | Encounter | MED CTR EMERGENCY | [address] | | | | | CENTER [address] | [place] | | | | | [place] | [address] | | | | | [address] | | | | | | [phone] | Raphael Karimi MD | | | [...] Raphael Karimi MD - 12/02/2012 5:32 [place] [address] Patient Name: JACKLYN SIDDIQI Provider: Unit #: [id number] Location: [facility] #: [id number] : 1935 DATE: 12/02/2012 CHIEF COMPLAINT: Dizziness [...] sinus bradycardia with a rate of 58, [place] of 142, QRS of 130. He has [...] Raphael Karimi M.D. Emergency Medicine JOB #: [id number] EXT JOB #:[id number] <<Signature on File>> Raphael Karimi MD0 12/09/122111 < documented in this encounter Plan of Treatment +--------+ + + + + | Date | Type | Specialty | Care Team | Description | +--------+ + + + + | 07/20/ | Implant | Cardiology | Cruzito Bird, | Remote Device | | 2019 | Monitor | | [address] [facility] | Interrogation | | | | | [place], | (Primary Dx); | | | | | [place] [address] | Pacemaker Dual | | | | | [phone] | Chamber, MRI | | | | | | compatible, 05/14/17 | | | | | | [facility]; | | | | | | 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) | +--------+ + + + + | 01/05/ | Office | Cardiology | Emely Gabriel, | | | 2020 | Visit | | TRAFFIC SIGNAL REPAIRER [address] | | | | | | [place] | | | | | | [address] | | | | | | | [...] Performed At | + + + | [facility] | [place] | | Department [address] [place] | [facility] | | [ rep ct street[address]] [ rep ct [facility] | | st zip] Signed | - IMAGING | | | | | Patient Name: JACKLYN SIDDIQI Physician: | | | WILBER : 1935 Age: 77 Sex: M Unit #: [id number] | | | Exam Date: 12/02/12 Location: ER | | | Report #: [id number] Page: | | | %(RAD)RES..mtdd.print.filter("pg") of %(RAD) | | | RES..mtdd.print.filter("tpg") | | | | | | Accession Number: [id number] | | | CHEST PORTABLE, 12/03/2012 CLINICAL [...] Transcribed Date/Time: | | | 12/03/2012 09:46 Dwarf Tree Grower: | | | <<Signature on File>> | | | Deep | | | MD Jose12/03/12 1410 <Electronically signed by Deep Garcia MD> | | | Deep Garcia MD 12/03/12 0935 Dwarf Tree Grower: Johnson | | | Uuwswpwipyhrl45/13/13 0972 Yordan Candel[place] MD | | | Raphael Karimi MD | | + + + + + + + + | Performing | Address | City/State/Zipcode | Phone Number | | Organization | | | | + + + + + | [facility] | [address] | [place] | [phone] | | [facility] | | [address] | | | - IMAGING | | [...] + | [facility] | [address] | [place], [place] | [phone] | | [facility] | | [address] | | | - LABORATORY | | | | + + + + + | [facility] | [address] | [place], [place] | | | [facility] | | [id number] | | | - LABORATORY | [...] + | [facility] | [address] | [place], [place] | [phone] | | [facility] | | [address] | | | - LABORATORY | | | | + + + + + | [facility] | [address] | [place], [place] | | | [facility] | | [id number] | | | - LABORATORY | [...] | performed on the Tete | | [employer]ina [place] | | | | [employer] | | MEDICAL | | | [...] + | [facility] | [address] | [place] | [phone] | | [facility] | | [address] | | | - LABORATORY | | | | + + + + + | [facility] | [address] | [place], [place] | | | [facility] | | [id number] [place] [address] | | | - LABORATORY | | [...] + + | Performing | Address | City/[facility]/Zipcode | Phone Number | | Organization | | | | + + + + + | [facility] | [address] | [place], [place] | [phone] | | [facility] | | [address] | | | - LABORATORY | | | | + + + + + | [facility] | [address] | [place], [place] | | | [facility] | | [address], [facility] | | | - LABORATORY | [...] The | | | | | | [employer] | | | | | [...] + | [facility] | [address] | [place], [place] | [phone] | | [facility] | | [address] | | | - LABORATORY | | | | + + + + + | [facility] | [address] | [place], [place] | | | [facility] | | [id number] [place] [address] | | | - LABORATORY | | | | + + + + + documented in this encounter Visit Diagnoses Not on filedocumented in this encounter
--- OUTSIDE RECORDS SUMMARY | ~2020-05-18 | XMS | Encounter Summary ---
Demographics + + + | Address | [address] | | | [place] [address] | + + + | Home Phone | | + + + | Preferred Language | Unknown | + + + | Marital Status | | + + + | Mu-Ism Affiliation | 1061 | + + + | Race | Unknown | + + + | Ethnic Group | Unknown | + + + Author + + + | Author | [facility] | | | and [place] | + + + | Organization | [facility] | | | [...] Providers + +------+ + | Care Body Team Member Name | Role | Phone | + +------+ + | Antonio Paulino MD | PCP | | + +------+ + Encounter Details +--------+ + + + + | Date | Type | Department | Care Team | Description | +--------+ + + + + | 01/30/ | Orders Only | [facility] | eLatha Hernández | | | 2017 | | [address] | | | | | [place] | [address] | | | | | [place], [place] | [place] [address] | | | | | [address] | [phone] | | | | | [phone] | | | +--------+ + + + [...] Dx); | | | | | [place] [address] | Pacemaker Dual | | | | | [phone] | Chamber, MRI | | | | | | compatible, 05/14/17 | | | | | | [facility]; | | | | | | 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) | +--------+ + + + + | 01/05/ | Office | Cardiology | Emely Gabriel, | | | 2020 | Visit | | ADJUSTER ARBITRATOR [address] | | | | | | St [place] | | | | | | [address] | | | | | | | [...] Doppler was | | | perfomed at . Study: This was a technically | | [...] TR Vmax: | | | 2.99 m/s Pig Casting Machine Operator: SLAVA Authenticated by: Benjamín Garces | | [...] flow | | Doppler was perfomed at .Study: This was a technically adequate | | [...] cmLVPWd: 1.14 | | cmLVOT Area: 3.28 [id number] Diam: 2.04 cmLVEF MOD A4C: 58.49 %SV MOD A4C: 62.35 | | mlLVEDV MOD A4C: 106.59 mlLVLd A4C: 8.86 cmLVESV MOD A4C: 44.24 mlLVLs A4C: 7.68 | | cmLAESV(A-L): 68.77 mlLAESV Index (A-L): 34.73 ml/m2LAAs A2C: 21.27 [id number] A-L | | A2C: 73.45 mlLALs A2C: 5.23 cmLAAs A4C: 19.91 oc9SOUVI A-L A4C: 57.38 mlLALs | | A4C: 5.86 cmRAAs: 19.51 [id number] A-L: 66.78 mlRAESV MOD: 62.08 mlRALs: 4.84 | | cmAV maxP.28 mmHgAV meanP.19 mmHgAV Vmax: 1.82 m/Willie Vmean: 1.14 m/Willie | | VTI: 37.18 cmAVA Vmax: 2.10 cm2AVA (VTI): 2.06 [id number] Vmax: 0.00 cm2/m2AVAI | | (VTI): 0.00 cm2/m2LVOT maxP.43 mmHgLVOT meanP.09 mmHgLVSI Dopp: 38.79 | | ml/m2LVSV Dopp: 76.82 mlLVOT Vmax: 1.16 m/sLVOT Vmean: 0.65 m/sLVOT VTI: 23.36 | | cmMV A Kings: 0.74 m/sMV DecT: 173.87 msMV E Kings: 1.20 m/sMV E/A Ratio: 1.62MV | | PHT: 50.42 msMVA By PHT: 4.36 mk8Xdmglx e': 0.03 m/sSeptal E/e': 36.80Lateral | | e': 0.06 m/sLateral E/e': 17.61RAP: 5 mmHgRVSP: 40.93 mmHgTR maxP.93 | | mmHgTR Vmax: 2.99 m/s Pig Casting Machine Operator: DHAuthenticated by: Benjamín Rosa | | Date/Time: [...] |TR Vmax: 2.99 m/s | | | |Pig Casting Machine Operator: | |Authenticated by: Benjamín Garces | |Report [...]
--- OUTSIDE RECORDS SUMMARY | ~2020-05-18 | XMS | Encounter Summary ---
Demographics + + + | Address | [address] | | | [place] [address] | + + + | Home Phone | | + + + | Preferred Language | Unknown | + + + | Marital Status | | + + + | Scientologist Affiliation | 1061 | + + + | Race | Unknown | + + + | Ethnic Group | Unknown | + + + Author + + + | Author | [facility] | | | and [place] | + + + | Organization | [facility] | | [...] Team Providers + +------+ + | Care Cuffing Machine Operator Name | Role | Phone [...] Monitor | CARDIOLOGY [address] | [address] | Interrogation | | | | [place], | [place], | (Primary Dx); | | | | [place] [address] | [place] [address] | Pacemaker Dual | | | | [phone] | Chamber, MRI | | | | [...] Paceart documentation and remote PDF scanned into [facility] for remote interrogation re sults. Data collected [...] Dx); | | | | | [place] [address] | Pacemaker Dual | | | | | [phone] | Chamber, MRI | | | | | | compatible, 05/14/17 | | | | | | [facility]; | | | | | | 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) | +--------+ + + + + | 01/05/ | Office | Cardiology | Emely Gabriel, | | | 2020 | Visit | | ELECTRICAL PROSPECTING SUPERVISOR [address] | | | | | | [place] | | | | | | [address] | | | | | | | [...] PDF scanned into | | | [facility] for remote interrogation results. Data collected by [...]
--- OUTSIDE RECORDS SUMMARY | ~2020-05-18 | XMS | Encounter Summary ---
Demographics + + + | Address | [address] | | | [place] [address] | + + + | Home Phone [...] + | Author | [facility] | | | and [place] | + + + | Organization | [facility] | | | and [...] Team Providers + +------+ + | Care Environmental Health Safety Engineer Name | Role | Phone | + +------+ + PCP | Unavailable | + +------+ + Encounter Details +--------+ + + + + | Date | Type | Department | Care Team | Description | +--------+ + + + + | 10/25/ | Hospital | [facility] | Mauricio Goldberg | | | 2003 | Encounter | MED CTR XRAY [address] | [address] | | | | | [place] | [place] | | | | | [place] [address] | [place] [address] | | | | | [phone] | | | | | | | [...] Interrogation | | | | | [address] [place], | (Primary Dx); | | | | | [place] [address] | Pacemaker Dual | | | | | [phone] | Chamber, MRI | | | | | | compatible, 05/14/17 | | | | | | [facility]; | | | | | | 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) | +--------+ + + + + | 01/05/ | Office | Cardiology | Emely Gabriel, | | | 2020 | Visit | | PLYCOR OPERATOR [address] | | | | | | [place] | | | | | | [address] | | | | | | | | +--------+ + + + + documented as of this encounter Visit Diagnoses Not on filedocumented in this encounter"
--- OUTSIDE RECORDS SUMMARY | ~2020-05-18 | XMS | Encounter Summary ---
Demographics + + + | Address | [address] | | | [place] [address] | + + + | Home Phone | | + + + | Preferred Language | Unknown | + + + | Marital Status | | + + + | Scientology Affiliation | 1061 | + + + | Race | Unknown | + + + | Ethnic Group | Unknown | + + + Author + + + | Author | [facility] | | | and [place] | + + + | Organization | [facility] | | [...] Team Providers + +------+ + | Care Strip Mill Operator Name | Role | Phone | + +------+ + | Antonio Paulino MD | PCP | | + +------+ + Encounter Details +--------+ + + + + | Date | Type | Department | Care Team | Description | +--------+ + + + + | 09/03/ | Orders Only | [facility] | Antonio Payne | | | 2015 | | CARDIOLOGY SWISHER | MD [address] | | | | | [address] | [place] | | | | | SWISHER [place] | [place] [address] | | | | | [address] | [phone] | | | | | [phone] | | | +--------+ + + + [...] Interrogation | | | | | [place], | (Primary Dx); | | | | | [place] [address] | Pacemaker Dual | | | | | [phone] | Chamber, MRI | | | | | | compatible, 05/14/17 | | | | | | [facility]; | | | | | | 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) | +--------+ + + + + | 01/05/ | Office | Cardiology | Emely Gabriel, | | | 2020 | Visit | | GOLD PLATER [address] | | | | | | St [place] | | | | | | [address] | | | | | | | | +--------+ + + + + documented as of this encounter Procedures + +--------+ + + + | Procedure Name | Priori | Date/Time | Associated Diagnosis | Comments | | | ty | | | | + +--------+ + + + | ECG 12 LEAD | Routin | 09/03/2016 | | Results for this | | | e | 3:20 PM | | procedure are in the | | | | PST | | results section. | + +--------+ + + + documented in this encounter Results ECG 12 lead (09/03/2016 3:20 PM PST) + + + + + + | Component | Value | Ref Range | Performed | Pathologist | | | | | At | Signature | + + + + + + | DIAGNOSIS: | Sinus rhythm with | | EXTERNAL | | | | frequent Premature | | LAB | | | | ventricular | | | | | | complexesLeft bundle | | | | | | branch blockAbnormal | | | | | | ECGWhen compared with | | | | | | ECG of 17-NOV-2004 | | | | | | 06:22,Premature | | | | | | ventricular complexes | | | | | | are now PresentLeft | | | | | | bundle branch block is | | | | | | now PresentMinimal | | | | | | criteria for Septal | | | | | | infarct are no longer | | | | | | PresentPlease refer to | | | | | | Providers office visit | | | | | | note for Providers | | | | | | Interpretation.Confirmed | | | | | | by [facility] [place] Read Only, | | | | | | [facility] Robyn ([id number]), | | | | | | purchase request editor Wyatt Pierce | | | | | | ([id number]) on 10/02/2016 | | | | | | 8:28:04 AM | | | | + + + + + + + + | Specimen | + + | | + + + + + | Narrative | Performed At | + + + | Historically converted procedure from [facility] Epic environment | EXTERNAL LAB | + + + + +---------+ + + | Performing | Address | City/State/Zipcode | Phone Number | | Organization | | | | + +---------+ + + | EXTERNAL LAB | | | | + +---------+ + + documented in this encounter Visit Diagnoses Not on filedocumented in this encounter"
--- OUTSIDE RECORDS SUMMARY | ~2020-05-18 | XMS | Encounter Summary ---
Demographics + + + | Address | [address] | | | [place] [address] | + + + | Home Phone | | + + + | Preferred Language | Unknown | + + + | Marital Status | | + + + | Zoroastrian Affiliation | 1061 | + + + | Race | Unknown | + + + | Ethnic Group | Unknown | + + + Author + + + | Author | [facility] | | | and [place] | + + + | Organization | [facility] | | [...] Team Providers + +------+ + | Care Help Desk Agent Name | Role | Phone | + [...] | 01/14/ | Implant | [facility] | Cruzito Bird, | Remote Device | | 2017 | Monitor | CARDIOLOGY [address] | [address] | Interrogation | | | | [place], | [place], | (Primary Dx); | | | | [place] [address] | [place] [address] | Pacemaker Dual | | | | [phone] | Chamber, MRI | | | | [...] Pace[employer] documentation and remote PDF scanned into [employer] for remote interrogation results. Data collected by [...] Dx); | | | | | [place] [address] | Pacemaker Dual | | | | | [phone] | Chamber, MRI | | | | [...] [place] | | | | | | [address] | | | | | | | [...] | | | pabol syndrome (HCC) | | + +--------+ + + + documented in this encounter Results Device Interrogation - Remote (05/02/2018 12:00 AM PDT) + + + | Narrative | Performed At | + + + | Cruzito | KAREN | | MD Marge 05/02/2018 13:32Refer to Pace[employer] documentation and | | | remote PDF scanned into [employer] for remote interrogation results. Data | | [...] - 01/14/2018 11:59 PM PDT Refer to [employer] documentation and | | remote PDF scanned into [employer] for remote interrogation results. Data collected by [...] Chamber, MRI compatible, 05/14/17 [facility] Bird Cardiac pacemaker | | in situ [...]
--- OUTSIDE RECORDS SUMMARY | ~2020-05-18 | XMS | Encounter Summary ---
Demographics + + + | Address | [address] | | | [place] [address] | + + + | Home Phone [...] Team Providers + +------+ + | Care Access Services Assistant Name | Role | Phone | [...] Monitor | CARDIOLOGY [address] | [address] [place] | Interrogation | | | | [place], | [place], | (Primary Dx); | | | | [place] [address] | [place] [address] | Pacemaker Dual | | | | [phone] | [phone] | Chamber, MRI | | | | [...] Paceart documentation and remote PDF scanned into [employer] for remote interrogation results. Data collected by [...] Dx); | | | | | [place] [address] | Pacemaker Dual | | | | | [phone] | Chamber, MRI | | | | [...] [place] | | | | | | [address] | | | | | | | [...] | | | remote PDF scanned into [employer] for remote interrogation results. Data | | [...] - 01/14/2018 11:59 PM PDT Refer to [employer] documentation and | | remote PDF scanned into [employer] for remote interrogation results. Data collected by [...]
--- OUTSIDE RECORDS SUMMARY | ~2020-05-18 | XMS | Encounter Summary ---
Demographics + + + | Address | [address] | | | [place] [address] | + + + | Home Phone [...] Team Providers + +------+ + | Care Enrollment Management Manager Name | Role | Phone | [...] + | 05/08/ | Anesthesia | [facility] | Miguel Galicia MD | | | 2017 | Event | MED CTR MP INTRA OP | [address] | | | | | [address] | [place] | | | | | [place] | [address] | | | | | [address] | | | | | | [phone] | | | +--------+ + + + [...] | 05/09/171999 by | | eral | [id number] catheter system; | Xavier Bhardwaj, | Joanna Salazar, | | IV | 22 gauge; removed per | Exercise Physiologist | RN | | | policy/procedure, site [...] EVALUATION Johnny Siddiqi 81 y.o. male 1935 [id number] Procedure(s) EGD with Anesthesia (N/A Mouth) Cooperates? [...] signed by Miguel Galicia MD 05/08/2017 11:19 [facility] Galicia MD at 05/08 11:19 AM PDTAnesthesia Preprocedure Evaluation - Miguel Galicia MD - 05/08/2017 9:19 AM PDT ANESTHESIA PREANESTHESIA EVALUATION Johnny Siddiqi 81 y.o. male 1935 [id number] Procedure(s): EGD with Anesthesia (N/A Mouth) Medical [...] Interrogation | | | | | [place], | (Primary Dx); | | | | | [place] [address] | Pacemaker Dual | | | | | [phone] | Chamber, MRI | | | | [...] | | | | [place], [place] | | | | | | [address] | | | | | | | [...]
--- OUTSIDE RECORDS SUMMARY | ~2020-05-18 | XMS | Encounter Summary ---
Demographics + + + | Address | [address] | | | [place] [address] | + + + | Home Phone [...] Team Providers + +------+ + | Care Steward/Stewardess Second Class Name | Role | Phone | + [...] | | | | Chronic | Emely, LICENSE DISTRIBUTOR | Pulmonary | | | | | diastolic | [address] | Function [address] | | | | | (congestive) | [place] | [address] | | | | | heart | [place], [place] | [place], | | | | | failure | [address] | [place] [address] | | | | | (HCC) | Phone: | Phone: | | | | | Encounter | [phone] | [phone] | | | | | for | Fax: | Fax: | | | | | monitoring | [phone] | [phone] | | | | | amiodarone | | | | | | | therapy | | | | | | | Unspecified | | | | | | | atrial | | | | | | | fibrillation | | | | | | | (HCC) | | | | | | | Procedures | | | | | | | [place] EVAL OF | | | | | | | BRONCHOSPASM | | | | | | | ,PROLONGED | | | | | | | [place] DIFFUSING | | | | | | | CAPACITY | | | | | | | [place] EVAL OF | | | | | | | BRONCHOSPASM | | | | | | | [place] | | | | | | | PLETHYSMOGRA | | | | | | | PHY LUNG | | | | | | | VOLUMES W/WO | | | | | | | AIRWAY | | | | | | | RESIST [place] | | | | | | | BREATHING | | | | | | | CAPACITY | | | | | | | TEST | | | +--------+--------+ + + + + Encounter Details +--------+ + + + + | Date | Type | Department | Care Team | Description | +--------+ + + + + | 06/26/ | Hospital | [facility] | Emely Gabriel, | Coronary artery | | 2018 | Encounter | MED CTR PULMONARY | LICENSE DISTRIBUTOR [address] | disease involving | | | | FUNCTION [address] | [address] [place] | moapa coronary | | | | [place], | [address] | artery of [place] | | | | [place] [address] | | heart without angina | | | | [phone] | | pectoris; | | | | | | 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 ([facility]); | | | | | | Essential | | | | | | hypertension; | | | | | | Chronic diastolic | | | | | | congestive heart | | | | | | failure ([facility]); | | | | | | Persistent atrial | | | | | | fibrillation ([facility]); | | | | | | Pacemaker | | | | | | reprogramming/check; | | | | | | Pacemaker Dual | | | | | | Chamber, MRI | | | | | | compatible, 05/14/17 | | | | | | [facility]; | | | | | | group [...] TESTING ORDERSPre-Procedure Diagnose(s): 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 ceferino; Tachycardia-bradycardia syndrome (HCC); Essential hypertension; Chronic diastolic silvino estive heart failure (HCC); Persistent atrial fibrillation (HCC); Pacemaker reprogramming/ch brooks; Pacemaker; 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 use of 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 PULMONARY FUNCTION TESTING [...] signed by: Antonio Hartman MD 06/27/2018 11:09 [facility] by Antonio Hartman MD at 11:11 AM PDTdocumented in this encounter Plan of Treatment +--------+ + + + + | Date | Type | Specialty | Care Team | Description | +--------+ + + + + | 07/20/ | Implant | Cardiology | Cruzito Bird, | Remote Device | | 2019 | Monitor | | [address] [facility] | Interrogation | | | | | [place], | (Primary Dx); | | | | | [place] [address] | Pacemaker Dual | | | | | [phone] | Chamber, MRI | | | | | | compatible, 05/14/17 | | | | | | [facility]; | | | | | | 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) | +--------+ + + + + | 01/05/ | Office | Cardiology | AbhijitEmely irwin, | | | 2020 | Visit | | LICENSE DISTRIBUTOR [address] | | | | | | St [place] | | | | | | [id number] | | | | | | | [...] | | ORDERS | | PDT | moapa coronary | results section. | | | | | artery of moapa | | | | | | heart [...] Bird | | | | | | group home current | | | | | | use of amiodarone | | + +--------+ + + + | PFT PULMONARY | JUNAID | 06/27/2018 | Coronary artery | Results for this | | FUNCTION TESTING | | 11:09 AM | disease involving | procedure are in the | | ORDERS | | PDT | moapa coronary | results section. 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 No prior pulmonary function tests available for | | |comparison. | | | | | | | | |Test performed: 06/26/18 | | |Electronically signed by: Antonio Hartman MD 06/27/2018 11:09 | | |[facility] | | + + + documented in this encounter Visit Diagnoses + + | Diagnosis | + + | Coronary artery disease involving moapa coronary artery of moapa heart without | | angina pectoris | [...] | in situ | + + | group home current use of amiodarone | + [...] | | | | Nebulization, RT Once, [facility] 06/26/18 | | AM PDT | | | | | at 1145, For 1 dose, RT will | | | | | | | administer., | | | | | | + +--------+ +--------+------+------+ +---+---+ | | | +---+---+ documented in this encounter"
--- OUTSIDE RECORDS SUMMARY | ~2020-05-18 | XMS | Encounter Summary ---
Demographics + + + | Address | [address] | | | [place] [address] | + + + | Home Phone [...] Providers + +------+ + | Care Assistant Department Manager Name | Role | Phone | [...] + + | 12/23/ | Office | [facility] SE [facility]ALKER | Cruzito Bird, | Chronic diastolic | | 2019 | Visit | CARDIOLOGY [address] [place] | congestive heart | | | | [place], | [place], | failure (HCC) | | | | [place] [address] | [place] [address] | (Primary Dx); | | | | [phone] | [phone] | Tachycardia-bradycar | | | | | [...] Since that time, patient was seen at [facility] for pneumo ana. 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 Patient was seen at [facility] for edema seen on 07/08-. At [...] a class I of [place] [employer] function al class. There is [...] 1 left ventricular diastolic dysfunction, normally functioning la chanical bileaflet aortic valve replacement, mildly thickened [...] reduced right ventricular systolic function, normal functioning [facility] hanical aortic valve replacement, mildly thickened [...] 73 Y.O.(2) and Vascular d isease (1). [id number] is 4, which gives an estimated 4.0%risk [...] control strategy. 4. 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 [facility] 11/14/2004 shows preserved left ventricular systolic function [...] reviewed and edited this note. Trinidad Johnson, Pad Tufter 12/23/2018 I, Cruzito Bird MD, personally performed the services described in this documentation, as scribed in my presence and it is both accurate and complete. Trinidad Johnson, Pad Tufter 12/23/2018 14:11 Electronically signed by: Cruzito Bird MD [facility] 12/23/2018 Portions of this chart may have been created with [employer] voice recognition software. Occasi onal wrong-word or [...] | 2019 | Monitor | | [address] [facility] | Interrogation | | | | | [place], | (Primary Dx); | | | | | [place] [address] | Pacemaker Dual | | | | | [phone] | Chamber, MRI | | | | | | compatible, 05/14/17 | | | | | | [facility]; | | | | | | 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) | +--------+ + + + + | 01/05/ | Office | Cardiology | Emely Gabriel, | | | 2020 | Visit | | SAS SQL DEVELOPER [address] [place] | | | | | | [place] | | | | | | [address] | | | | | | | [...]
--- OUTSIDE RECORDS SUMMARY | ~2020-05-18 | XMS | Encounter Summary ---
Demographics + + + | Address | [address] | | | [place] [address] | + + + | Home Phone [...] Team Providers + +------+ + | Care Blend Technician Name | Role | Phone | + +------+ + | Ferdinand Goldberg | PCP | | | MD | | | + +------+ + Reason for Visit + + + | Reason | Comments | + + + | Coagulation Disorder | Directed to ED from [facility] with INR 13.0. Pt. bleeding from [...] | | Epistaxis | | [address] | | | | | Essential | | [place], | | | | | hypertension | | [place] | | | | | Pulmonary | | [address] | | | | | HTN (HCC) | | Phone: | | | | | Chronic | | [phone] | | | | | diastolic | | Fax: | | | | | congestive | | [phone] | | | | | heart | [...] + + | 04/01/ | Hospital | [facility] | Jose, | Excessive | | 2015 - | Encounter | MED CTR ICU [address] | Tristan Truong MD [address] | anticoagulation | | | | [address] [place], | [address] [place] | (Primary Dx); | | 04/04/ | | [place] [address] | [place] [address] | Epistaxis; H/O | | 2014 | | [phone] | [phone] | aortic valve | | | | | | replacement; | | | | | Jorge Phelps MD | Essential | | | | | [address] | hypertension; | | | | | [place], [place] | Dementia, without | | | | | [address] | behavioral | | | | | [...] might be different fro m the original. [place], [place] DISCHARGE SUMMARY Pt. Name/Age/: Jacklyn Siddiqi [...] (Coumadin) yet, you need daily Protimes at [facility] in [facility] starting Saturday and be sure the [place] [facility] calls you every day with [...] will drift down. 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 15 accepta le H/O aortic valve replacement and single vessel CAD at [facility] October [address] [facility] at [facility] and had CABG to 80-90% LAD October 2004 Hx of endocarditis Echo done CAD (coronary artery disease) CABG to LAD at time of AVR (for critical ) [facility] Oct 2014, cath then single vessel disea se Tachy-Hang (sinus hang and PSVT) stopped metoprolol due to bradycardia (dud have 12.5 mg XL) but then had asymptomatic PSVT to 130 while asleep [address] Aguilera not quite meet [...] Lasix gently albeit at lower dose then 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 Dementia Son says Aricept no benefit Liver cirrhosis Ex ETOH use, prior CT at [facility] Pulmonary HTN Diastolic CHF Normal Cortrosyn Stim [...] Plan Home today Need to talk to [place] about followup NOT restart ACEI nor Beta Birdie NOT YET restart Coumadin Needs home medicine management Needs frequent INR outpatient regarding coumadin Addendum on I had nice phone call with Dr Goldberg about patient including the tachy b rady, coumadin still on hold with high INR, dementia, patient driving at excessive speed, [facility] for home med management, needing daily INR starting tomorrow and the Cou[facility] din clinic needs to contact him to ensure compliance, being borderline for needing pacemaker , having acute renal insuff when coming in [place] home off beta birdie and off ACEI and NOT to restart Coumadin until [place] [facility] says OK and to follow daily INR [facility] [place] I see he is on Fenofibrate which can effect his INR, possibly the [facility] would consider alterna tive agent since fenofibrate has no cardiovascular benefit. From Addendum at 1255 have EKG from [facility] from [address] seg changes are OLD. Since this is NOT a [facility] EKG I did put it into [...] improved Eat Healthy Diet Daily protime at [facility] in [place] (Dr Goldberg will authorize) starting tomorrow (Saturday) and the [place] [facility] should call you each day with results and will tell you if and when to restart warfarin Lisinopril and metoprolol have been stopped We are arranging Home Health too Greater than 30 minutes were spent on discharge and coordination of post-hospital care. Electronically signed by: Jorge Phelps MD, 04/04/2015 8:47 [facility] Portions of this chart may have been created with [employer] voice recognition software. Occasi onal wrong-word or sound-alike substitutions may have occurred due to the inherent carter itations of voice recognition software. Please read the chart carefully and recognize, using context, where these substitutions have occurred documented in this encounter Discharge Instructions Instructions Jorge Phelps MD - 04/04/2015Eat Healthy Diet Daily protime at [facility] in [place] (Dr Goldberg will authorize) starting tomorrow (Saturday) and the [place] [facility] should call you each day [...] | | | | | | | [place] starting | | | | | | | Saturday and | | | | | | | be sure the [place] | | | | | | [...] Ramirez MD - 04/04/2015 7:20 AM PDT [place], [place] PROGRESS NOTE Patient: Jacklyn Siddiqi : 1935: Age: 79 y.o. MedRec: [id number] PCP: Ferdinadn Goldberg Admission date: 04/01/2015 Hospital day # [...] sodium chloride 0.9% (NS) infusion Intravenous Continuous Jogre Phelps MD traZODone (DESYREL) tablet 50 mg [...] -- -- 12.6* Recent Labs Lab 04/04/15 0411 04/03/15 0406 04/02/15 1556 PROTIME 38.3* 38.3* 35.7* [...] 147 No results for input(s): PHART, PO2ART, FEA1AKR, VUO5BDL, BEART, U0BIYSXE in the last 168 h ours. No results for input(s): SPECSOURCE, PHPOCB, HCO3, TCO2, BEART, BE, XQBY4RCP in the last 16 8 hours. Invalid input(s): [id number], XPYM0UY Point of care glucose: No results for [...] will drift down. 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 Dementia Son says Aricept no benefit Liver cirrhosis Ex ETOH use, prior CT at [facility] Pulmonary HTN Diastolic CHF Normal Cortrosyn Stim [...] Goldberg about patient including the tachy b marcia, coumadin still on hold with high INR, dementia, patient driving at excessive speed, [facility] for home med management, needing daily INR starting tomorrow and the [facility] needs to contact him to ensure compliance, being borderline for needing pacemaker , having acute renal insuff when coming in [place] off beta birdie and off ACEI and NOT to restart Coumadin until [facility] and to follow daily INR [facility] [place] I see he is on Fenofibrate which can effect his INR, possibly the [facility] would consider alterna tive agent since fenofibrate has no cardiovascular benefit. From Addendum at 1255 have EKG from [facility] from [address] seg changes are OLD. Since this is NOT a [facility] EKG I did put it into the Media Tab to allow comparison. I will contact Dr Aguilera about the bradycardia but I suspect the issue will be NOT using the Beta Birdie. Patient d id tell me that typically at home his pulse rate would be 52-53. Jorge Phelps MD 04/04/2015 7:20 [facility] Portions of this chart may have been created with [employer] voice recognition software. Occasi onal wrong-word or [...] lungs clear to ascultation. Urinating without difficulty. Customer Support Analyst and hospitalist seen patient today. Susu Quiles Chris, Jorge Alejo MD - 04/03/2015 9:25 AM PDT [place], [place] PROGRESS NOTE Patient: Jacklyn Siddiqi : 1935: Age: 79 y.o. MedRec: [id number] PCP: Ferdinand Goldberg Admission date: 04/01/2015 Hospital [...] 147 No results for input(s): PHART, PO2ART, SDE1CRZ, GQW5NGH, BEART, R9VHWVLQ in the last 168 h ours. No results for input(s): SPECSOURCE, PHPOCB, HCO3, TCO2, BEART, BE, CKBF1SJV in the last 16 8 hours. Invalid input(s): [id number], YQZL4JI Point of care glucose: No results for [...] will drift down. 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 H/O aortic valve replacement and single vessel CAD at [facility] October [address] [facility]R at [facility] and had CABG to 80-90% LAD October 2004 Hx of endocarditis Echo done CAD (coronary artery disease) CABG to LAD at time of AVR (for critical ) [facility] Oct 2014, cath then single vessel disea [...] Lasix gently albeit at lower dose then 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 Since this is NOT a [facility] EKG I did put it into the Media Tab to allow comparison. I will contact Dr Aguilera about the bradycardia but I suspect the issue will be NOT using the Beta Birdie. Patient d id tell me that typically at home his pulse rate would be 52-53. Jorge Phelps MD 04/03/2015 9:25 [facility] Portions of this chart may have been created with [employer] voice recognition software. Occasi onal wrong-word or [...] Perez MD - 04/02/2015 8:43 AM PDT [facility] PROGRESS NOTE Patient: Jacklyn Siddiqi : 1935: Age: 79 y.o. MedRec: [id number] PCP: Ferdinand Goldberg Admission date: 04/01/2015 Hospital day # : 1 Physician author: Jorge Phelps MD Today: 04/02/2015 Allergies: Allergies Allergen [...] 147 No results for input(s): PHART, PO2ART, ECI3TMO, UPK6CDB, BEART, Y7MMHOIG in the last 168 h ours. No results for input(s): SPECSOURCE, PHPOCB, HCO3, TCO2, BEART, BE, QWAB0RHJ in the last 16 8 hours. 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 H/O aortic valve replacement and single vessel CAD at [facility] October [address] [facility]R at [facility] and had CABG to 80-90% LAD October 2004 Hx of endocarditis Echo done CAD (coronary artery disease) CABG to LAD at time of AVR (for critical ) [facility] Oct 2014, cath then single vessel disea se Hypertension I did lower his metoprolol due to hang on on Lisinopril remains off but need to resta rt Lasix gently albeit at lower dose then 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 I contacted [place] for comparison EKG as here he has [...] pending. Addendum at 1255 have EKG from [facility] from [address] seg changes are OLD. Since this is NOT a [facility] EKG I did put it into the Media Tab to allow comparison. I will contact Dr Aguilera about the bradycardia but I suspect the issue will be NOT using the Beta Birdie. Patient d id tell me that typically at home his pulse rate would be 52-53. Jorge Phelps MD 04/02/2015 8:43 [facility] Portions of this chart may have been created with [employer] voice recognition software. Occasi onal wrong-word or [...] Sanam Mello RN - 04/01/2015 2:20 PM [id number]- Patient arrives fr om ED with FFP infusing. Alert and oriented x 4. Able to ambulate from gurney to ICU bed w ithout difficulty. No SOB noted. Assessment completed. See chart for detail. Admit compl eted. 1500- ECHO at bedside. Updated familly on plan of care. documented in this encounter H&P Notes Jorge Phelps MD - 04/01/2015 1:18 PM PDTFormatting of this note might be different fro m the original. [place], [place] HISTORY & PHYSICAL Patient: Jcaklyn Siddiqi : 1935: Age: 79 y.o. MedRec: [id number] PCP: Ferdinand Goldberg Admission date: 04/01/2015 Hospital [...] had high INR at [facility] in [place] yesterday but not reachable until today and told to go to ER so drove 90 [address] to get here (pulled over by property and supply officer not ticket) into ER with high [...] is insure if CABG says leon at [facility] Hearing aid in repair, dentures in clear bag, not use glasses "20/20", no CP nor abd pain, using bandaids and velcro on skin areas, Hx of venous ulcer, chronic LBP, cane, no GI bleedi ng Aricept 1/2 pill of NO benefit per son in room, patient not disagree PAST MEDICAL and SURGICAL HISTORY: Past Medical History Diagnosis Date H/O aortic valve replacement 2006 [facility] INR goal is 2-3 Hypertension Liver cirrhosis (HCC) CVA (cerebral infarction) (HCC) -2014 lacunar (not stated as new nor old) Dementia Alcoholic cirrhosis (HCC) 2003 CT scan 2003 at [facility] Endocarditis 2009 Enterococcus 6 weeks Amp [...] Coumadin 2 mg tab 4 tabs on Sat and 3 tabs on other days [...] CKTOTAL No results for input(s): PHART, PO2ART, AUT2XDE, AZB4CMI, BEART, L9PTWGRC in the last 168 h ours. No results for input(s): SPECSOURCE, PHPOCB, HCO3, TCO2, BEART, BE, MGCV1OMM in the last 16 8 hours. Invalid input(s): JGWCT6CL, ARJN6FR (dot meylab) Xray Results: No results found. [...] H/O aortic valve replacement Oct [address] at [facility] [address] critical [facility] at [facility] Hx of endocarditis Hypertension Dementia Son says Aricept no benefit Liver cirrhosis Ex ETOH use, prior CT at [facility] CAD (coronary artery disease) Patient says had stents, [place] says CABG, and [facility] did cardiac cath with single vessel disea se to LAD 80-90% and [facility] says did CABG October 2004 Pulmonary HTN Diastolic CHF DVT Prophylaxis Coumadin with INR goal 2-3 Code Status Full Code Medical Decision Maker Estela Trujillo PLAN: VIt and FFP started in ER Check INR post FFP Renal U/S and urine labs and hydrate Echo Might need more FFP Addendum Echo back and U/S pending and not volume overload on Echo (compared to prior repor t from [place] he is NOT worse per my comparison of reports) CMS Documentation I expect this patient will be hospitalized for greater than 2-midnights and expect the post -hospital plan to be discharge to home or to an adult foster home. Electronically signed by: Jorge Phelps MD 04/01/2015 13:56 [facility] Note updated on after getting [facility] Everywhere review done Portions of this chart may have been created with [employer] voice recognition software. Occasi onal wrong-word or [...] in approximately 2005.. He was admitted to [facility] on 04/01/2015 for Over-anticoagulated. He was in [...] not clear. It was started at the [facility]. However, he has had episodes of [...] goal is 2-3, surgery done at [facility] Hypertension Liver cirrhosis (HCC) CVA (cerebral infarction) ([facility]) -2014 lacunar (not stated as new nor old) Dementia Alcoholic cirrhosis (HCC) 2003 CT scan 2003 at [facility] Endocarditis 2009 Enterococcus 6 weeks Amp + Gent PSA elevation 2008 Pt declined Bx then Peripheral vertigo 2012 BPPV left Venous ulcer ([facility]) 2013 Leg Retinal detachment 2010 CAD (coronary artery disease) 2004 Had CABG to LAD (for 80-90% LAD) surgery done at [facility] Pulmonary HTN (HCC) Severe on Echo 2014 Diastolic CHF (HCC) Echo 2014 EF 68, ascites, pulm HTN Over-anticoagulated 04/01/2015 PAST SURGICAL HISTORY Past Surgical History Procedure Laterality Date Cardiac surgery 2005 [place] says [address]G [address] [facility] FAMILY HISTORY Family History Problem Relation Age of Onset Heart disease Father SOCIAL HISTORY He lives independently in a house with his dog. He maintains the home. His veterans benef its stem from service from 7722-8917, the [place] War era. He does not use tobacco. [...] this chart may have been created with [employer] voice recognition software. Occasi onal wrong-word or sound-alike substitutions may have occurred due to the inherent carter itations of voice recognition software. Please read the chart carefully and recognize, using context, where these substitutions have occurred. documented in this encounter ED Notes Tristan Garcia MD - 04/01/2015 1:18 PM PDTFormatting of this note might be differe nt from the original. [facility] Jacklyn Siddiqi Emergency Department Encounter Note [address] [place] [address] PCP:Ferdinand Goldberg [phone] CHIEF COMPLAINT: Chief Complaint Patient presents with Coagulation Disorder Directed to ED from [facility] with INR 13.0. Pt. bleeding from multiple skin tears. ED Room: ED02/ED02 HPI Jacklyn Siddiqi is a 79 y.o. male who presents to the Emergency Department for evaluation. The patient was sent from the [place] when he was found to have an [...] cirrhosis (HCC) 2004 CT scan 2004 at [facility] Endocarditis 2009 Enterococcus 6 weeks Amp + Gent PSA elevation 2008 Pt declined Bx then Peripheral vertigo 2012 BPPV left Venous ulcer (HCC) 2013 Leg Retinal detachment 2010 CAD (coronary artery disease) [place] says had CABG with his AVR Pulmonary HTN (HCC) Severe on Echo 2014 Diastolic CHF (HCC) Echo 2014 EF 68, ascites, pulm HTN Over-anticoagulated 04/01/2015 Past Surgical History Procedure Laterality Date Cardiac surgery 2005 [place] says CABG [address] [facility] CURRENT [...] Clear Clear PH UA 5.5 5.0-8.0 Specific [place] 1.010 1.001-1.030 PROTEIN UA Negative Negative BLOOD [...] Code Fresh Frozen Plasma Thawed UNIT # [id number] UNIT ABO AB UNIT RH NEG Unit Status Crossmatched PRODUCT: PLASMA, FROZEN <24 Result Value Ref Range Product Code Fresh Frozen Plasma Thawed UNIT # [id number] UNIT ABO AB UNIT RH NEG Unit Status Crossmatched ED COURSE & MEDICAL DECISION MAKING Pertinent Labs & Imaging studies were reviewed along with EMS notes and longterm record s if applicable. (See chart for [...] Notes Plan of Care - Ana Dietrich, Wood Science Professor-Clinical - 04/04/2015 11:56 AM PDTDischarge plans cont: Per request of Hospitalist, pertinent medical records including H&P, Dr. Aguilera consult, D/C summary, and labs faxed to [facility] at f# [phone] with call to Padmini confirming th is fax. Confirmation placed in ghost chart. T/C to [facility] regarding a referral order for this [...] Siddiqi, patient's son, who lives across to wn from patient, to be in charge of her father's med set, since patient did live with him fo r several months prior to living on his own again. T/C to Chris at p#[phone], and he confirmed that he would be [...] do this. Spoke with Padmini at the [facility] about possibly getting this patient on the Home Based Progr am per [facility] that [facility]. Padmini stated that she would be in the notes regarding this request to his PCP, Dr. Goldberg, where this will need to be started. Also, spoke with Janna, at the [facility] Coumadin clinic, and she requested that this CM send th e discharge summary and latest INR to her attn to f# [phone]. This was done and confirm ation placed in ghost chart. Janna stated that patient's FASHION PATTERNMAKER is Hellen Alla at the [facility] Coumadin clinic. Patient's son, Jacklyn, transported patient home today to [place], [place].Electronically johnny d by: Ana Dietrich, ACCOUNT GROUP SUPERVISOR 04/04/2015 12:14 lan of Care - Mary Cantu RN - 04/04/2015 6:00 AM PDTProblem: General Plan of Care (Adul t, Obstetrics) Goal: Care Plan Shift Summary & Review . Outcome: Progressing SD -Elevated INR with bleeding. INR - 3.87 (no change from yesterday). Ambulated in halls l ast night. Possible DC this AM. BM this AM, adequate UO. Cardiology consulted for sarachadginna y, not a candidate for a pacemaker at this time. Left EF 65-70%. lan of [facility] - Mary Fiore RN - 04/03/2015 10:05 PM PDTProblem: General Plan of Care (Adult, Obstetrics ) Goal: Individualization/Patient-Specific Goal (Adult, Obstetrics) Pt. Is independent at home. Pt likes to have warm blankets when going to sleep at night. Pt likes skim milk with every meal. Outcome: Progressing lan of [facility] Emergency Department - Mary Morataya RN - 04/03/2015 10:05 PM PDTProblem: Heart Failure (Adult, Obstetrics) Goal: Prevent/Manage Potential Problems (Heart Failure (Adult, Obstetrics)) Outcome: Signs and symptoms of listed potential problems will be absent or manageable (refe rence CPG) Outcome: Progressing lan of [facility] Emergency Department - Susu Tam RN - 04/03/2015 6:10 PM [...] Left EF 65-70%. Susu Quiles lan of [facility] Ashley Marques RN - 04/03/2015 10:08 AM PDTProblem: General Plan of Care (Adult, Obstetrics) Goal: Care Plan Shift Summary & Review . Discharge planning; Reviewed Ana's 04/01 notes. Discussed case with Dr. Phelps. Dr. Phelps is planning on discharging Mr. Siddiqi on Saturday, 04/04. He would like him to have increased [place] s upport. He needs closer med management.. Faxed update to [facility] and requested to evaluate his eligibility for Home Based Primary Care or increased Home Health visits. His daughter (SAMEER sommer om [place]) was managing his meds, but his med changes happen frequently and he needs more oversight than she can provide long distance. Ana to follow up with [facility] on 04/04/15. Karyn Marques RNdriving school instructor lan of Care - Ayah Puentes RN [...] independent at home. Outcome: Progressing lan of Care - Mary [place] RN - 04/01/2015 9:32 PM PDTProblem: Heart Failure (Adult, Obstetrics) Goal: Prevent/Manage Potential Problems (Heart Failure (Adult, Obstetrics)) Outcome: Signs and symptoms of listed potential problems will be absent or manageable (refe rence CPG) Outcome: Progressing lan of [facility] Department Sanam Spencer RN - 04/01/2015 5:59 PM PDTProblem: General [...] VSS lan of Care - Ana Dietrich, Wood Science Professor-Clinical - 04/01/2015 5:41 PM PDTProblem: General Plan of Care (Adul t, Obstetrics) Goal: Care Plan Shift Summary & Review . Discharge plans: Met with patient in his room. He was talkative but at times stopped in the middle of the sentence trying to remember what to say. He states he is living in one of his son's homes in [place] while he is gone and he is ta dann care of his dog. He reports that the home is a single level home. He also uses a cane to walk since his legs have been giving him some pain issues. He still drives and actually was driving here to go see his MD, Dr. Goldberg at the [place], whe rina they called and had him go straight to the ED here at the hospital, due to his high INR va lues. He confirmed he is a and gets his meds thru mail order from the [facility] and he can us e [facility] for any short term meds. His friend, [...] back home. He also stated that his upraahwi-zl-nuu is planning on coming in from [place] on Saturday an d will be staying there at the house for about 2-3 weeks, which was confirmed with his daugh Cassandra pinedo, when this CM called her. T/C made to Cassandra Guthrie p# [phone], and left a message to return call. [...] with the [facility] Disabled Services in [place] and they have helped him by paying [...] med management at discharge, also a PT eval while in the hospital to assist with discharge planning. CM to follow.Electronically signed by: Ana Dietrich, ACCOUNT GROUP SUPERVISOR 04/01/2015 17:40 D Triage Notes - Dion [...] Dx); | | | | | [place] [address] | Pacemaker Dual | | | | | [phone] | Chamber, MRI | | | | [...] [place] | | | | | | [address] | | | | | | | [...] | | | Mix, | | | [facility] [place] | | | Immediate | | [...] [address] | [place] | [phone] | | [facility] | | [address] | | | - LABORATORY | | [...] [address] | [place] | [phone] | | [facility] | | [address] | | | - LABORATORY | | [...] [address] | [place] | [phone] | | [facility] | | [address] | | | - LABORATORY | | [...] | mL/min/1.73m2 | [facility] | | | [place] African | RATE,ESTIMATED | | MEDICAL | | | | mL/min/1.84a4Crix than | | CENTER - | | [...] + | [facility] | [address] | [place] | [phone] | | [facility] | | [address] | | | - LABORATORY | | [...] | | | MIN | | | [facility] | | | | [...] [address] | [place] | [phone] | | [facility] | | [address] | | | - LABORATORY | | [...] [address] | [place] | [phone] | | [facility] | | [address] | | | - LABORATORY | | [...] | | BASE | | ug/dL | [facility] | | | | | | [...] [address] | [place] | [phone] | | [facility] | | [address] | | | - LABORATORY | | [...] + | [facility] | [address] | [place] | [phone] | | [facility] | | [address] | | | - LABORATORY | | [...] + | [facility] | [address] | [place] | [phone] | | [facility] | | [address] | | | - LABORATORY | | [...] | 5.0 | 3.5 - 5.1 | [facility] | | | | | mmol/L | [...] | GLOMERULAR FILTRATION | mL/min/1.73m2 | [facility] | | | [place] | RATE,ESTIMATED | | MEDICAL | | | | mL/min/1.68c3Osep than | | CENTER - | | [...] | 8.7 | 8.3 - 10.5 | [facility] | | | | | mg/dL | [facility] | | | | | | MEDICAL | | | | | | CENTER - | | | | | | LABORATORY | | + + + + + + | Albumin | 3.1 (L) | 3.2 - 5.0 g/dL | [facility] | | | | | | [facility] | | | | | | [...] + | [facility] | [address] | [place] | [phone] | | [facility] | | [address] | | | - LABORATORY | | [...] | AM | | ug/dl | [facility] | | | | [...] [address] | [place] | [phone] | | [facility] | | [address] | | | - LABORATORY | | [...] mL/min/1.73m2 | [facility] | | | [place] | RATE,ESTIMATED | | MEDICAL | | | | mL/min/1.22l7Uowd than | | CENTER - | | [...] [address] | [place] | [phone] | | [facility] | | [address] | | | - LABORATORY | | [...] + | [facility] | [address] | [place] | [phone] | | [facility] | | [address] | | | - LABORATORY | | [...] + + + | UNIT # | [id number] | | [facility] | | | | [...] St | [place] | | | [facility] | | [address] | | | - BLOOD BANK | [...] + + + | UNIT # | [id number] | | [facility] | | | | [...] St | [place] | | | [facility] | | [address] | | | - BLOOD BANK | | | | + + + + + Magnesium (04/02/2015 4:01 AM PDT) + +---------+ + + + | Component | Value | Ref Range | Performed | Pathologist | | | | | At | Signature | + +---------+ + + + | Magnesium | 2.7 (H) | 1.8 - 2.5 mg/dL | [facility] [...] ST. | [address] | [place], [place] | [phone] | | [facility] | | [address] | | | - LABORATORY | | [...] ST. | [address] | [place], [place] | [phone] | | [facility] | | [address] | | | - LABORATORY | | [...] | | | | | | [employer] | | | | | [...] | + + + + + | [facility] | [address] | [place], [place] | [phone] | | [facility] | | [address] | | | - LABORATORY | | [...] + | [facility] | [address] | [place] | [phone] | | [facility] | | [address] | | | - LABORATORY | | [...] [address] | [place] | [phone] | | [facility] | | [address] | | | - LABORATORY | | [...] 1.80 (H) | 0.60 - 1.30 | [facility] | | | | | mg/dL | [facility] | | | | | | MEDICAL | | | | | | CENTER - | | | | | | LABORATORY | | + + + + + + | eGFR, | 36 (L)Comment: | >=60 | [facility] | | | non- | GLOMERULAR FILTRATION | mL/min/1.73m2 | [facility] | | | [place] African | RATE,ESTIMATED | | MEDICAL | | | | mL/min/1.58m9Wsup than | | CENTER - | | [...] 3.7 | 2.5 - 4.6 mg/dL | [facility] | | | | [...] [address] | [place] | [phone] | | [facility] | | [address] | | | - LABORATORY | | [...] | Procedure Note | + + | Chsae Zepeda Results In - 04/01/2015 5:39 PM PDT [...] [address] | [place] | [phone] | | [facility] | | [address] | | | - LABORATORY | | | | + + + + + ECHO Complete (04/01/2015 3:36 PM PDT) + + | Specimen | + + | | + + + + + | Narrative | Performed At | + + + | [facility] ECHOCARDIOGRAM REPORT | | | STUDY DATE: 04/01/2015 PATIENT NAME: Jacklyn Siddiqi SURESH: | | | 1935 PCP: Ferdinand Goldberg [...] | | | by: Cruzito Bird MD [facility] 04/01/2015 15:47 | | | Mortgage Accounting Clerk: Jp Jaquez, CONCHACS, RVT, RDMS | | + + + [...] [address] | [place] | [phone] | | [facility] | | [address] | | | - LABORATORY | | [...] into the clinical context for interpretation. | [facility] | | | - LABORATORY | + + + + + + + + | Performing | Address | City/State/Zipcode | Phone Number | | Organization | | | | + + + + + | [facility] | [address] | [place] | [phone] | | [facility] | | [address] | | | - LABORATORY | | [...] ST. | [address] | [place], [place] | [phone] | | [facility] | | [address] | | | - LABORATORY | | [...] [address] | [place] | | | [facility] | | [address] | | | - BLOOD BANK | [...] | | Urine | | Yellow | [facility] | | | | [...] - 1.030 | [facility] | | | [place], | | | [facility] | | [...] | | Comment | Indicated | | [facility] | | | [...] + + | [facility] | [address] | [place] | [phone] | | [facility] | | [address] | | | - LABORATORY | | [...] + | [facility] | [address] | [place] | [phone] | | [facility] | | [address] | | | - LABORATORY | | [...] | | Morphology | | | [facility] | | [...] smear review. | [facility] | | | [place] | | | [facility] | | | - LABORATORY | + + + + + + + + | Performing | Address | City/State/Zipcode | Phone Number | | Organization | | | | + + + + + | [facility] | [address] | [place] | [phone] | | [facility] | | [address] | | | - LABORATORY | | [...] + | [facility] | [address] | [place] | [phone] | | [facility] | | [address] | | | - LABORATORY | | [...] mL/min/1.73m2 | [facility] | | | [place] African | RATE,ESTIMATED | | MEDICAL | | | | mL/min/1.14o0Iwod than | | CENTER - | | [...] [address] | [place] | [phone] | | [facility] | | [address] | | | - LABORATORY | | [...] | | | | g/dL | . [facility] | | | | [...] | | Eosinophils | | | [facility] | | [...] [address] | [place] | [phone] | | [facility] | | [address] | | | - LABORATORY | | [...] | ---- 04/01/2015 | | | 09:27 [facility] | | | VISIT COUNT (1 YR.) Visits Medicaid NE Dx Location | | | ------ --------- 1 0 | | | [facility] | | | [facility] 2 0 | | | Total Note: Visits indicate total known visits. | | | Medicaid [place] Dx are the number of primary diagnoses on the [facility] | | | non-emergent dx list. | | | | | | --- SHAZIA has no Care Guidelines for this patient. [place] | | | Prescription Review PDMP Report (previous six months). Fill Date | | | Drug Description Qty. Prescriber | | | CS MED --------- | | | ---- -- | | | --- 2015-03-24 HYDROCODON-ACETAMINOPHEN 5-325 112 | | | FERDINAND PARNICKY 2 0.0 2015-02-24 | | | HYDROCODON-ACETAMINOPHEN 5-325 112 FERDINAND PARNICKY | | | 2 0.0 2015-01-26 HYDROCODON-ACETAMINOPHEN 5-325 | | | 112 FERDINAND LYLENICKY 2 0.0 2014-12-29 | | | HYDROCODON-ACETAMINOPHEN 5-325 112 FERDINAND PARNICKY | | | 2 0.0 2014-12-01 HYDROCODON-ACETAMINOPHEN 5-325 | | | 112 FERDINAND PARNICKY 2 0.0 12 Month | | | Prescription Summary -Number of CS Rx:5 -Number of CS-II Rx:5 | | | -Total dispensed quantity:560 -Unique Prescribers:1 | | | -Unique Pharmacies:1 -Opioid Rx Count:0 -Long Acting Opioid | | | Rx Count:0 -Benzo Rx Count:0 | | + + + + +---------+ + + | Performing | Address | City/State[facility] | Phone Number | [...] of unspecified type of vessel, | | bad river band or graft | + + | Diastolic [...] | | | | 04/01/15 at 1445, Tablet may | | | [...]
--- OUTSIDE RECORDS SUMMARY | ~2020-05-18 | XMS | Encounter Summary ---
Demographics + + + | Address | [address] | | | [place] [address] | + + + | Home Phone | | + + + | Preferred Language | Unknown | + + + | Marital Status | | + + + | Episcopal Affiliation | 1061 | + + + | Race | Unknown | + + + | Ethnic Group | Unknown | + + + Author + + + | Author | [facility] | | | and [place] | + + + | Organization | [facility] | | [...] Team Providers + +------+ + | Care Test Lead Name | Role | Phone | + +------+ + | Antonio Paulino MD | PCP | | + +------+ + Encounter Details +--------+ + + + + | Date | Type | Department | Care Team | Description | +--------+ + + + + | 09/03/ | Orders Only | [facility] | Antonio Payne | | | 2015 | | CARDIOLOGY [place] | MD [address] | | | | | [address] | [address] | | | | | [place] | [place] [address] | | | | | [address] | [phone] | | | | | [phone] | | | +--------+ + + + [...] Interrogation | | | | | 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) | +--------+ + + + + | 01/05/ | Office | Cardiology | Emely Gabriel, | | | 2020 | Visit | | INTERNET MARKETING EXECUTIVE [address] | | | | | | St [place] | | | | | | [address] | | | | | | | [...] | | | | | by [facility] [place] Read Only, | | | | | | [facility] Robyn ([id number]), | | | | | | editor managing director Wyatt Pierce | | | | | | (253) on 10/02/2016 | | | | | | 8:28:04 AM | | | | + + + + + + + + | Specimen | + + | | + + + + + | Narrative | Performed At | + + + | Historically converted procedure from [facility] Epic environment | EXTERNAL LAB | + + + + +---------+ + + | Performing | Address | City/State/Zipcode | Phone Number | | Organization | | | | + +---------+ + + | EXTERNAL LAB | | | | + +---------+ + + documented in this encounter Visit Diagnoses Not on filedocumented in this encounter"
--- OUTSIDE RECORDS SUMMARY | ~2020-05-18 | XMS | Encounter Summary ---
Demographics + + + | Address | [address] | | | [place] [address] | + + + | Home Phone [...] Providers + +------+ + | Care Machine Strap Buckler Name | Role | Phone | + +------+ + PCP | Unavailable | + +------+ + Encounter Details +--------+ + + + + | Date | Type | Department | Care Team | Description | +--------+ + + + + | 09/07/ | Hospital | [facility] | Mauricio Goldberg | | | 2002 | Encounter | MED CTR GENERIC OP | MD [address] | | | | | CONV DEPT [address] | [place] | | | | | [place], | [place] [address] | | | | | [place] [address] | [phone] | | | | | [phone] | | | +--------+ + + + [...] Dx); | | | | | [place] [address] | Pacemaker Dual | | | | | [phone] | Chamber, MRI | | | | [...] [place] | | | | | | [address] | | | | | | | | +--------+ + + + + documented as of this encounter Visit Diagnoses Not on filedocumented in this encounter"
--- OUTSIDE RECORDS SUMMARY | ~2020-05-18 | XMS | Encounter Summary ---
Demographics + + + | Address | [address] | | | [place] [address] | + + + | Home Phone [...] Providers + +------+ + | Care Director Digital Name | Role | Phone | + +------+ + | Antonio Paulino MD | PCP | | + +------+ + Encounter Details +--------+ + + + + | Date | Type | Department | Care Team | Description | +--------+ + + + + | 03/13/ | Orders Only | [facility] | Robert Espinosa | | | 2015 | | CONVERSION [address] | MD [address] | | | | | [address]HA [address] | [place] [address] | | | | | [place], [place] | [place] [address] | | | | | [address] | [phone] | | | | | [phone] | | | +--------+ + + + [...] Dx); | | | | | [place] [address] | Pacemaker Dual | | | | | [phone] | Chamber, MRI | | | | [...] [place] | | | | | | [address] | | | | | | | [...] NML, diastolic function abnormal, | | | [place] visually estimates LVEF 60-65%. Moderate LAE, mild [...] | | funcion NML, diastolic function abnormal, [place] visually estimates | | | LVEF 60-65%. [...] pressures of | | | 10-15mmHg. MEASUREMENTS Marzipan Maker: DBS | | | Authenticated by: Antonio Payne DO Report Date/Time: -- | | | [id number]:22 | | + + + + + [...] LVH, systolic funcion NML, diastolic function abnormal, [place] visually | | estimates LVEF 60-65%. Moderate [...] venous pressures of 10-15mmHg. MEASUREMENTS | | Marzipan Maker: ADAMAuthenticated by: Antonio Kline Date/Time: -- | | [id number]:22 IMPRESSION: 1. See Dictation. TDS. A fib.2. [...] LVH, systolic funcion NML, diastolic function abnormal, [place] | | visually estimates LVEF 60-65%. Moderate [...] | |MEASUREMENTS | | | | | |Marzipan Maker: ADAM | |Authenticated by: Antonio Payne DO | |Report Date/Time: -- [id number]:03:22 | | | |IMPRESSION: | |1. See [...] systolic funcion NML, diastolic function abno rmal, [place] visually estimates LVEF 60-65%. Moderate LAE, mild [place]RI[place]. RV dimensions NML, sy stolic function impaired. 4. | |No Pericardial effusion. 5. 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 | + + documented in this encounter Visit Diagnoses Not on filedocumented in this encounter"
--- OUTSIDE RECORDS SUMMARY | ~2020-05-18 | XMS | Encounter Summary ---
Demographics + + + | Address | [address] | | | [place] [address] | + + + | Home Phone [...] Team Providers + +------+ + | Care Nib Assembler Name | Role | Phone | [...] + + | 02/23/ | Emergency | [facility] | Benjamín Candelaria, | Atrial flutter with | | 2016 | | MED CTR EMERGENCY | [address] [address] | rapid ventricular | | | | CENTER [address] | [address] | response (HCC) | | | | [place] | [place] [address] | (Primary Dx); | | | | [address] | [phone] | Palpitations; | | | | [phone] | | Supratherapeutic INR | | | | | Yordan Candelario MD | | | | | | [address] | | | | | | [place] | | | | | | [address] | | | | | | | [...] | | | | be sure the [place] | | | | | | | [...] might be different from the matti rohit. [facility] Johnny Siddiqi Emergency Department Encounter Note [address] [place] [address] PCP:Mauricio Goldberg MD [phone] CHIEF COMPLAINT: Chief Complaint Patient presents with Tachycardia referal from [place] nurse ED Room: ED08/ED08 TRIAGE: ED Triage [...] goal is 2-3, surgery done at [facility] Hypertension Liver cirrhosis (HCC) CVA (cerebral infarction) -2014 lacunar (not stated as new nor old) Dementia Alcoholic cirrhosis (HCC) 2003 CT scan 2003 at [facility] Endocarditis 2009 Enterococcus 6 weeks Amp + Gent PSA elevation 2008 Pt declined Bx then Peripheral vertigo 2012 BPPV left Venous ulcer (HCC) 2013 Leg Retinal detachment 2010 CAD (coronary artery disease) 2004 Had CABG to LAD (for 80-90% LAD) surgery done at [facility] Pulmonary HTN (HCC) Severe on Echo [...] (Coumadin) yet, you need samy Bunn at [facility] in [place] starting Saturday morning and be sure the [facility] calls you every day with [...] were reviewed along with EMS notes and [facility] record s if applicable. (See chart for [...] this chart may have been created with [employer] voice recognition software. Occasi onal wrong-word or [...] | Monitor | | MD [address] | Interrogation | | | | | 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 | [place] | [phone] | | [facility] | | [address] | | | - LABORATORY | | [...] 1.51 (H) | 0.60 - 1.30 | [facility] | | | | | mg/dL | [facility] | | | | | | MEDICAL | | | | | | CENTER - | | | | | | LABORATORY | | + + + + + + | eGFR, | 44 (L)Comment: | >=60 | [facility] | | | non- | GLOMERULAR FILTRATION | mL/min/1.73m2 | [facility] | | | [place]ian | RATE,ESTIMATED | | MEDICAL | | | | mL/min/1.89o5Uhps than | | CENTER - | | [...] + | [facility] | [address] | [place] | [phone] | | [facility] | | [address] | | | - LABORATORY | | [...] [address] | [place] | [phone] | | [facility] | | [address] | | | - LABORATORY | | [...] | | | | | | short MD interval | | | | | | [...] | | | | BINU MACK MD ([id number]) | | | | | | on [...]
--- OUTSIDE RECORDS SUMMARY | ~2020-05-18 | XMS | Clinical Summary ---
Demographics + + + | Address | [address] | | | [place] [address] | + + + | Home Phone [...] Team Providers + +------+ + | Care Research Chief Engineer Name | Role | Phone | [...] | | | Activ | | (MYCOSTATIN) [id number] | topically 3 (three) | | | [...] St | | Rupert Assurity MRI [id number] 05/14/[address] [facility] Tendril | | MRI [id number] 05/14/[address] [facility] Tendril MRI | | [id number] 05/14/17 Indication: Tachycardia-Bradycardia | | Syndrome. | [...] + | Overview: CT scan [address] [facility] | + + + +---+ | Coronary artery disease involving [place] coronary artery of | | | [place] heart without angina pectoris | | + +---+ + + | Overview: [facility] 11/14/2004 shows preserved left ventricular | [...] | 2019 | Monitor | | MD | Interrogation [...] ZOSTER NON-LIVE | 01/15/2019 | | | (MYESHAGRIX) | | | + + + + [...] 2019 | Monitor | | [address] | Interrogation | | | | | 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) | +--------+ + + + + | 01/05/ | Office | Cardiology | Emely Gabriel, | | | 2020 | Visit | | ADVANCED MANUFACTURING VICE PRESIDENT [address] | | | | | | St [place], [place] | | | | | | [address] | | | | | | | [...] | [facility] | | 06/20/ | [id number] | | [id number]: Qty: 1 | | Heart | MEDICAL - | | 2016 | 0M/52 | | on 05/14/2017 by Marge, | | | STJU | | | /[id number] | | MD Cruzito at [facility] | | | | | | 8427 / | | [facility] | | | | | | | + +------+-------+ +--------+--------+--------+ | Lead Tendril Mri 46cm - | | N/A: | [facility] | | 07/20/ | [id number] | | [id number]: Qty: 1 | | Heart | MEDICAL - | | 2016 | 0M/46 | | on 05/14/2017 by Marge, | | | STJU | | | /[id number] | | MD Cruzito at [facility] | | | | | | 3446 / | | [facility] | | | | | | | + +------+-------+ +--------+--------+--------+ | Pacer Assurity Mri Dr Rf - | | N/A: | [facility] | | 08/20/ | [id number] | | [id number]: Qty: 1 on | | Heart | MEDICAL - | | 2018 | | | 05/14/2017 by Marge, | | | CHRISTOPHER | | | /[id number] | | MD Cruzito at [facility] | | | | | | 01 / | | [facility] | | | | | | [...] Cruzito | [facility] | | MD Marge 02/11/2020 4:15 PMDate of Remote Interrogation: | | | 01/27/2020 Refer to [facility] documentation and remote PDF scanned into | | | [facility] for remote interrogation results. Data [...] +--------+ +---------+--------+ | MEDICARE | MEDICA | [id number] | 06/21/19 | [phone] | | Medica | | | RE | | 98-Pre | 5 | | re | | | PART A | | sent | | | | | | AND B | | | | | | + +--------+ +--------+ +---------+--------+ | [employer] | MODA | [id number] | 10/21/19 | [phone] | | Medica | | MEDICAID HMO | HEALTH | | 19-Pre | 1 | | id | | | MDCD | | sent | | | | | | [place]MO [place] | | | | | | + +--------+ +--------+ +---------+--------+ | [employer] | VETERA | [id number] | | | | Indemn | | [...] Johnny Siddiqi | Person | Self | [birth year] | [address] | | | al/Guy | | 1935 | [phone] | [address] | | | isak | | | 8 (Home) | [place] [address] | + +--------+ +--------+ + + | Johnny Siddiqi | Chapis | Self | [birth year] | | [address] | | | l | | 1935 | [phone] | [address] | | | Servic | | | 7 (Home) | [place] [address] | | | es | | | | | + +--------+ +--------+ + + Advance Directives + + + + + | Type | Date Recorded | Patient | Explanation | | | | Certified Industrial Hygienist | | + + + + + | Power of | 05/07/2017 1:18 | | FINANCIAL POWER OF SLEEPING BAG FILLER | | Traffic Lieutenant | PM | | | + + [...]
--- OUTSIDE RECORDS SUMMARY | ~2020-05-18 | XMS | Encounter Summary ---
Demographics + + + | Address | [address] | | | [place] [address] | + + + | Home Phone [...] Team Providers + +------+ + | Care Steam Pan Sponger Name | Role | Phone | + +------+ + PCP | Unavailable | + +------+ + Encounter Details +--------+ + + + + | Date | Type | Department | Care Team | Description | +--------+ + + + + | 10/25/ | Hospital | [facility] | Mauricio Goldberg | | | 2003 | Encounter | MED CTR XRAY [address] | [address] | | | | | [place] | [place] | | | | | [place] [address] | [place] [address] | | | | | [phone] | [phone] | | | | | | | [...] Interrogation | | | | | [facility] [place], | (Primary Dx); | | | | | [place] [address] | Pacemaker Dual | | | | | [phone] | Chamber, MRI | | | | | | compatible, 05/14/17 | | | | | | [facility]; | | | | | | 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
--- OUTSIDE RECORDS SUMMARY | ~2020-05-18 | XMS | Encounter Summary ---
Demographics + + + | Address | [address] | | | [place] [address] | + + + | Home Phone [...] Team Providers + +------+ + | Care Combination Man Name | Role | Phone | + [...] + + | 09/19/ | Office | [facility] | Emely Gabriel, | Tachycardia-bradycar | | 2017 | Visit | CARDIOLOGY [address] | BIZTALK CONSULTANT [address] | pablo syndrome (HCC) | | | | [place], | [place], [place] | (Primary Dx); | | | | [place] [address] | [address] | Coronary artery | | | | [phone] | | disease involving | | | | | | coquille coronary | | | | | | artery of coquille | | | | | | heart without angina | | | | | | pectoris; | | | | | | Persistent atrial | | | | | | fibrillation ([facility]); | | | | | | Chronic diastolic | | | | | | congestive heart | | | | | | failure ([facility]); | | | | | [...] spare time. 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 His RZP1VS4-YXIe score is 4, which gives an estimated [...] ure. He is in a class IIof [place] Heart Association functional class. He is on a rhythm control strategy with amiodarone. He is on warfarin to minimize the ris k of stroke. 3. Congestive heart failure with preserved ejection fraction A. He is being treated with furosemide. Heart failure is well compensated 4. Coronary artery disease: A. [facility] 11/14/2004 shows preserved left [...] 2. He will continue with his Quarterly [employer] remote device monitoring. 3. He will follow up in 6 months for office visit and device interrogation, or sooner with concerns. Electronically signed by: AMANDA Hurtado Portions of this chart may have been created with Wilshire Axon voice recognition software. Occasi onal wrong-word or [...] Device Interrogation 2. 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 Persistent atrial fibrillation (HCC) I48.1 427.31 4. Chronic diastolic congestive heart failure (HCC) I50.32 428.32 428.0 5. Essential hypertension I10 401.9 6. Pacemaker reprogramming/check Z45.018 V53.31 Device Interrogation Device Interrogation 7. Pacemaker Dual Chamber, MRI compatible, 05/14/17 [facility] [place] Z95.0 V45.01 Device In [facility] Device Interrogation Patient was seated and device [...] Dx); | | | | | [place] [address] | Pacemaker Dual | | | | | [phone] | Chamber, MRI | | | | [...] | | | | [place] | | | | | | [address] | | | | | | | [...] | | | PST | pablo syndrome ([facility]) | results section. | | [...] | | | PST | pablo syndrome ([facility]) | results section. | | [...] | Emely Gabriel, | PACEART | | BIZTALK CONSULTANT 06/04/2018 15:12 PATIENT NAME: Johnny Siddiqi : [...] | | | Coronary artery disease involving coquille coronary artery of coquille | | | heart without angina pectoris [...] CBC no Differential T4, Free TSH 8. intermediate manager | | | current use of amiodarone [...] | | | TSH | | |8. intermediate manager current use of amiodarone Z79.899 V58.69 XR [...] | | 2. Coronary artery disease involving coquille coronary artery of coquille heart without | | angina pectoris I25.10 [...] CBC no Differential T4, Free TSH 8. intermediate manager current use of amiodarone Z79.899 | | [...] T4, Free | | TSH | |8. intermediate manager current use of amiodarone Z79.899 V58.69 XR [...] | Emely Gabriel, | STEPHART | | BIZTALK CONSULTANT 09/20/2017 12:31 PATIENT NAME: Johnny Siddiqi : | | | 1935: AGE: 82 y.o. Device In-office Evaluation Report | | | 09/19/2017 Reason for evaluation: routineIndication for device: | | | ICD-10-CM ICD-9-CM 1. 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 Coronary | | | artery disease involving coquille coronary artery of coquille heart | | | without angina pectoris [...] AGE: 82 | | y.o.Device In-office Evaluation Wnldqx1609/19/2017 Reason for evaluation: | | routineIndication for device: ICD-10-CM ICD-9-CM 1. Tachycardia-bradycardia syndrome | | ([facility]) I49.5 427.81 Device Interrogation Device Interrogation 2. Coronary artery | | disease involving coquille coronary artery of coquille heart without angina pectoris I25.10 | | [...] + + | Coronary artery disease involving coquille coronary artery of coquille heart without | | angina pectoris | [...]
--- OUTSIDE RECORDS SUMMARY | ~2020-05-18 | XMS | Encounter Summary ---
Demographics + + + | Address | [address] | | | [place] [address] | + + + | Home Phone | | + + + | Preferred Language | Unknown | + + + | Marital Status | | + + + | Quaker Affiliation | [id number] | + + + [...] Team Providers + +------+ + | Care Social Work Therapist Name | Role | Phone | + [...] + + | 06/04/ | Office | [facility] | Emely Gabriel, | Tachycardia-bradycar | | 2018 | Visit | CARDIOLOGY [address] | POISING INSPECTOR [address] | pablo syndrome (HCC) | | | | [place], | [place], [place] | (Primary Dx); | | | | [place] [address] | [address] | Coronary artery | | | | [phone] | | disease involving | | | | | | ute mountain coronary | | | | | | artery of ute mountain | | | | | | heart without angina | | | | | | pectoris; Essential | | | | | | hypertension; | | | | | | Chronic diastolic | | | | | | congestive heart | | | | | | failure ([facility]); | | | | | | Persistent atrial | | | | | | fibrillation ([facility]); | | | | | | Pacemaker | | | | | | reprogramming/check; | | | | | | Pacemaker Dual | | | | | | Chamber, MRI | | | | | | compatible, 05/14/17 | | | | | | [facility]; | | | | | | [facility] [...] you for pulmonary function tests, either at [place], or here if the y can't do the correct test. 4. Continue with your home pacemaker monitoring with [place]. 5. Return in 1 year for office [...] regimen. He would continue with his Quarterly [employer] remote device monitoring. Since that time, he was at [facility] ER for dehydration and so he has been careful to drink Gatorade, Essentia wate r and milk to stay hydrated ever since then. He has had a fair energy level. He tries to stay active. He enjoys shopping in his spare ti J[place]. He has not had any chest pain [...] Dementia Alcoholic cirrhosis Coronary artery disease involving ute mountain coronary artery of ute mountain heart without angina pectoris Pulmonary HTN Chronic [...] mood appears not anxious. Cognition and m atnia are impaired (mildly). He does not exhibit [...] 40 BPM Confirmed by BASIA BIRD MD ([id number]) on 06/20/2017 6:04:16 AM Which is compared to today's ECG 06/04/2018: sinus rhythm, atrial paced, ventricular sense d with rate of 67 bpm. LAB RESULTS reviewed during visit today primarily from [facility]: LIPID No results found for: CHOL, [...] scanned Paceart documentation and device PDF in [employer] for interrogation (with programming changes) performed during [...] Y.O.(2) and Vascula r disease (1). His FZR1YV4-CZGe score is 4, which gives an estimated [...] He is in class II of the [place] Heart Association functional class. 4. Coronary artery disease involving ute mountain coronary artery of ute mountain heart without angina pectoris: A. [facility] [...] 3. He will continue with his Quarterly [place] remote device monitoring. 4. He will follow [...] this chart may have been created with Playdom voice recognition software. Occasi onal wrong-word or [...] Free TSH 2. Coronary artery disease involving ute mountain coronary artery of ute mountain heart without angina pectoris I25.10 414.01 ECG [...] [facility] [place] Z95.0 V45.[address] [facility] Comprehensive Metabolic Panel Lipid Panel CBC no Differential T4, Free TSH XR Chest PA and Lateral Pulmonary function test Comprehensive Metabolic Panel Lipid Panel CBC no Differential T4, Free TSH 8. rodent exterminator current use of amiodarone Z79.899 V58.69 XR [...] Dx); | | | | | [place] [address] | Pacemaker Dual | | | | | [phone] | Chamber, MRI | | | | [...] | | | | | | St [place], [place] | | | | | | [address] | | | | | | | [...] the | | | | PDT | ute mountain coronary | results section. | | | | | artery of ute mountain | | | | | | heart [...] the | | | | PDT | ute mountain coronary | results section. | | | | | artery of ute mountain | | | | | | heart [...] the | | | | PDT | ute mountain coronary | results section. | | | | | artery of ute mountain | | | | | | heart [...] the | | | | PDT | ute mountain coronary | results section. | | | | | artery of ute mountain | | | | | | heart [...] the | | | | PDT | ute mountain coronary | results section. | | | | | artery of ute mountain | | | | | | heart [...] the | | | | PDT | ute mountain coronary | results section. | | | | | artery of ute mountain | | | | | | heart without angina | | | | | | pectoris | | + +--------+ + + + | DEVICE INTERROGATION | Routin | 06/04/2018 | | Results for this | | | e | 12:00 AM | Tachycardia-bradycar | procedure are in the | | | | PDT | pablo syndrome ([facility]) | results section. | | | [...] | PDT | pablo syndrome ([facility]) | results section. 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 No prior pulmonary function tests available for | | |comparison. | | | | | | | | |Test performed: 06/26/18 | | |Electronically signed by: Antonio Hartman MD 06/27/2018 11:09 | | |[facility] | | + + + XR Chest [...] is a third generation | uIU/mL | [facility] | | | | TSH [...] [address] | [place] | [phone] | | [facility] | | [address] | | | - LABORATORY | | [...] + | [facility] | [address] | [place] | [phone] | | [facility] | | [address] | | | - LABORATORY | | [...] [address] | [place] | [phone] | | [facility] | | [address] | | | - LABORATORY | | [...] [address] | [place] | [phone] | | [facility] | | [address] | | | - LABORATORY | | [...] | mL/min/1.73m2 | [facility] | | | [place] | RATE,ESTIMATED | | MEDICAL | | | | mL/min/1.84o9Vtuv than | | CENTER - | | [...] | | Phosphatase | | | [facility] | | | | | | MEDICAL | | | | | | CENTER - | | | | | | LABORATORY | | + + + + + + | Globulin | 2.8 | 2.1 - 3.8 g/dL | [facility] | | | | | | [facility] | | | | | | [...] + | [facility] | [address] | [place] | [phone] | | [facility] | | [address] | | | - LABORATORY | | [...] MD | | | | | | ([id number]) on 06/05/2018 | | | | | [...] | Emely Gabriel, | PACEART | | POISING INSPECTOR 06/04/2018 15:12 PATIENT NAME: Johnny Siddiqi : [...] | | | Coronary artery disease involving ute mountain coronary artery of ute mountain | | | heart without angina pectoris [...] CBC no Differential T4, Free TSH 8. rodent exterminator | | | current use of amiodarone [...] MRI compatible, 05/14/17 [facility] | | |[facility] Z95.0 V45.01 Device Interrogation | | | [...] | | | TSH | | |8. rodent exterminator current use of amiodarone Z79.899 V58.69 XR [...] | | 2. Coronary artery disease involving ute mountain coronary artery of ute mountain heart without | | angina pectoris I25.10 [...] CBC no Differential T4, Free TSH 8. rodent exterminator current use of amiodarone Z79.899 | | [...] T4, Free | | TSH | |8. 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
--- OUTSIDE RECORDS SUMMARY | ~2020-05-18 | XMS | Encounter Summary ---
Demographics + + + | Address | [address] | | | [place] [address] | + + + | Home Phone | | + + + | Preferred Language | Unknown | + + + | Marital Status | | + + + | Gnosticism Affiliation | 1061 | + + + | Race | Unknown | + + + | Ethnic Group | Unknown | + + + Author + + + | Author | [facility] | | | and [place] | + + + | Organization | [facility] | | | [...] Team Providers + +------+ + | Care Punch Card Operator Name | Role | Phone | [...] Monitor | CARDIOLOGY [address] | [address] [place] | Interrogation | | | | [place], | [place], | (Primary Dx); | | | | [place] [address] | [place] [address] | Pacemaker Dual | | | | [phone] | [phone] | Chamber, MRI | | | | [...] Paceart documentation and remote PDF scanned into Perfect Audience for remote interrogation re sults. Data collected [...] Interrogation | | | | | [place], | (Primary Dx); | | | | | [place] [address] | Pacemaker Dual | | | | | [phone] | Chamber, MRI | | | | | | compatible, 05/14/17 | | | | | | [facility]; | | | | | | Tachycardia-bradycar | | | | | | palbo syndrome (HCC) | +--------+ + + + + | 01/05/ | Office | Cardiology | Emely Gabriel, | | | 2020 | Visit | | PROCUREMENT CLERK [address] | | | | | | [place] | | | | | | [address] | | | | | | | [...] into | | | [facility] for remote interrogation results. Data collected by [...] of Remote Interrogation: | | 01/27/2019Refer to Pacebig sandy documentation and remote PDF scanned into Perfect Audience for remote | | interrogation results. Data [...]
--- OUTSIDE RECORDS SUMMARY | ~2020-05-18 | XMS | Encounter Summary ---
Demographics + + + | Address | [address] | | | [place] [address] | + + + | Home Phone [...] Team Providers + +------+ + | Care Electrocardiogram Technician Name | Role | Phone | [...] + + | 12/23/ | Office | [facility] | Cruzito Bird, | Chronic diastolic | | 2019 | Visit | CARDIOLOGY [address] | [address] [place] | congestive heart | | | | [place], | [place], | failure (HCC) | | | | [place] [address] | [place] [address] | (Primary Dx); | | | | [phone] | [phone] | Tachycardia-bradycar | | | | | [...] Since that time, patient was seen at [facility] for pneumo ana. He also mention he [...] Dementia Alcoholic cirrhosis Coronary artery disease involving umkumiut coronary artery of umkumiut heart without angina pectoris Pulmonary HTN Chronic [...] RESULTS reviewed during visit today primarily from [facility]: LIPID Lab Results Component Value [...] ejection fraction A. Patient was seen at [facility] for edema seen on 07/08-. At [...] He is in a class I of [place] Heart Association function al class. There is [...] 1 left ventricular diastolic dysfunction, normally functioning mn chanical bileaflet aortic valve replacement, mildly thickened [...] reduced right ventricular systolic function, normal functioning [facility] hanical aortic valve replacement, mildly thickened and [...] 73 Y.O.(2) and Vascular d isease (1). [id number]-FIVvvlvof is 4, which gives an estimated 4.0%risk [...] control strategy. 4. Coronary artery disease involving umkumiut coronary artery of umkumiut heart without angina pectoris: A. [facility] 11/14/2004 shows preserved left ventricular systolic function [...] reviewed and edited this note. Trinidad Johnson, Babbitter 12/23/2018 I, Cruzito Bird MD, personally performed the services described in this documentation, as scribed in my presence and it is both accurate and complete. Trinidad Johnson, Babbitter 12/23/2018 14:11 Electronically signed by: Cruzito Bird MD [facility] 12/23/2018 Portions of this chart may have been created with Bundlr voice recognition software. Occasi onal wrong-word or [...] | [address] [facility] | Interrogation | | | | | [place], | (Primary Dx); | | | | | [place] [address] | Pacemaker Dual | | | | | [phone] | Chamber, MRI | | | | | | compatible, 05/14/17 | | | | | | [facility]; | | | | | | 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) | +--------+ + + + + | 01/05/ | Office | Cardiology | Emely Gabriel, | | | 2020 | Visit | | SUPERVISOR BRIDGES AND BUILDINGS [address] [place] | | | | | | [place] | | | | | | [address] | | | | | | | [...]
--- OUTSIDE RECORDS SUMMARY | ~2020-05-18 | XMS | Encounter Summary ---
Demographics + + + | Address | [address] | | | [place] [address] | + + + | Home Phone [...] Team Providers + +------+ + | Care Forex Trader Name | Role | Phone | + [...] 2019 | | CARDIOLOGY [address] | Logging Specialist | | | | | [place], | | | | | | [place] [address] | | | | | | [phone] | | | +--------+ + + + [...] | 2019 | Monitor | | [address] [facility] | Interrogation | | | | | [place], | (Primary Dx); | | | | | [place] [address] | Pacemaker Dual | | | | | [phone] | Chamber, MRI | | | | | | compatible, 05/14/17 | | | | | | [facility]; | | | | | | 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) | +--------+ + + + + | 01/05/ | Office | Cardiology | Emely Gabriel, | | | 2020 | Visit | | ULTRASONIC TESTER [address] | | | | | | [place] | | | | | | [address] | | | | | | | [...]
--- OUTSIDE RECORDS SUMMARY | ~2020-05-18 | XMS | Encounter Summary ---
Demographics + + + | Address | [address] | | | [place] [address] | + + + | Home Phone [...] Team Providers + +------+ + | Care Brand Marketing Manager Name | Role | Phone | [...] Monitor | CARDIOLOGY [address] | [address] [place] | Interrogation | | | | [place], | [place], | (Primary Dx); | | | | [place] [address] | [place] [address] | Pacemaker Dual | | | | [phone] | [phone] | Chamber, MRI | | | | [...] Paceart documentation and remote PDF scanned into [employer] for remote interrogation results. Data collected by [...] Dx); | | | | | [place] [address] | Pacemaker Dual | | | | | [phone] | Chamber, MRI | | | | [...] [place] | | | | | | [address] | | | | | | | [...] | | | remote PDF scanned into [employer] for remote interrogation results. Data | | [...]
--- OUTSIDE RECORDS SUMMARY | ~2020-05-18 | XMS | Encounter Summary ---
Demographics + + + | Address | [address] | | | [place] [address] | + + + | Home Phone [...] Team Providers + +------+ + | Care Patent Examiner Name | Role | Phone | + [...] + + | 06/04/ | Office | [facility] | Emely Gabriel, | Tachycardia-bradycar | | 2018 | Visit | CARDIOLOGY [address] | PROOFER [address] | pablo syndrome (HCC) | | | | [place], | [place], [place] | (Primary Dx); | | | | [place] [address] | [address] | Coronary artery | | | | [phone] | | disease involving | | | | | | [place] coronary | | | | | | artery of [place] | | | | | | heart without angina | | | | | | pectoris; Essential | | | | | | hypertension; | | | | | | Chronic diastolic | | | | | | congestive heart | | | | | | failure ([facility]); | | | | | | Persistent atrial | | | | | | fibrillation ([facility]); | | | | | | Pacemaker | | | | | | reprogramming/check; | | | | | | Pacemaker Dual | | | | | | Chamber, MRI | | | | | | compatible, 05/14/17 | | | | | | [facility]; | | | | | | [employer] current | | | | | | [...] you for pulmonary function tests, either at [place], or here if the y can't do the correct test. 4. Continue with your home pacemaker monitoring with [email or web address]. 5. Return in 1 year for office [...] regimen. He would continue with his [employer] remote device monitoring. Since that time, he was at [facility] ER for dehydration and so he has been careful to drink Gatorade, Essentia wate r and milk to stay hydrated ever since then. He has had a fair energy level. He tries to stay active. He enjoys shopping in his spare ti [email or web address]. 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 His [id number] score is 4, which gives an estimated [...] He is in class II of the [place] [employer] functional class. 4. Coronary artery disease involving [place] coronary artery of [place] heart without angina pectoris: A. [facility] [place] 11/14/2004 shows preserved left ventricular systolic function, [...] 3. He will continue with his [employer] remote device monitoring. 4. He will follow [...] this chart may have been created with [employer] voice recognition software. Occasi onal wrong-word or [...] Free TSH 2. Coronary artery disease involving [place] coronary artery of [place] heart without angina pectoris I25.10 414.01 ECG [...] Rupert Wongsuwan Z95.0 V45.01 Device In [facility] Comprehensive Metabolic Panel Lipid Panel CBC no Differential T4, Free TSH XR Chest PA and Lateral Pulmonary function test Comprehensive Metabolic Panel Lipid Panel CBC no Differential T4, Free TSH 8. 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 | | | | | artery of [place] | | | | | | heart [...] the | | | | PDT | [place] coronary | results section. | | | | | artery of [place] | | | | | | heart [...] the | | | | PDT | [place] coronary | results section. | | | | | artery of [place] | | | | | | heart [...] the | | | | PDT | [place] coronary | results section. | | | | | artery of [place] | | | | | | heart [...] the | | | | PDT | [place] coronary | results section. | | | | | artery of [place] | | | | | | heart [...] the | | | | PDT | [place] coronary | results section. | | | | | artery of [place] | | | | | | heart without angina | | | | | | pectoris | | + +--------+ + + + | DEVICE INTERROGATION | Routin | 06/04/2018 | | Results for this | | | e | 12:00 AM | Tachycardia-bradycar | procedure are in the | | | | PDT | pablo syndrome ([facility]) | results section. | | [...] | | | PDT | pablo syndrome ([facility]) | results section. 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 No prior pulmonary function tests available for | | |comparison. | | | | | | | | |Test performed: 06/26/18 | | |Electronically signed by: Antonio Hartman MD 06/27/2018 11:09 | | |[facility] | | + + + XR [...] is a third generation | uIU/mL | [facility] | | | | TSH test. | [...] [address] | [place] | [phone] | | [facility] | | [address] | | | - LABORATORY | | [...] + | [facility] | [address] | [place] | [phone] | | [facility] | | [address] | | | - LABORATORY | | [...] [address] | [place] | [phone] | | [facility] | | [address] | | | - LABORATORY | | [...] [address] | [place] | [phone] | | [facility] | | [address] | | | - LABORATORY | | [...] | mL/min/1.73m2 | [facility] | | | Bulgarian | RATE,ESTIMATED | | MEDICAL | | | | mL/min/1.57k7Rgcy than | | CENTER - | | [...] + | [facility] | 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 V45.01 Device Interrogation | | [...] | | | TSH | | |8. 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
--- OUTSIDE RECORDS SUMMARY | ~2020-05-18 | XMS | Encounter Summary ---
Demographics + + + | Address | [address] | | | [place] [address] | + + + | Home Phone [...] Team Providers + +------+ + | Care Recovery Room Nurse Name | Role | Phone | [...] | | MAMIE [address] | [address] | | | | | [place], | [place], | | | | | [place] [address] | [place] [address] | | | | | [phone] | [phone] | | | | | | | [...] | 2020 | Monitor | | [address] [facility] | Interrogation | | | | | [place], | (Primary Dx); | | | | | [place] [address] | Pacemaker Dual | | | | | [phone] | Chamber, MRI | | | | [...] [place] | | | | | | [id number] | | | | | | | | +--------+ + + + + documented as of this encounter Visit Diagnoses Not on filedocumented in this encounter"
--- OUTSIDE RECORDS SUMMARY | ~2020-05-18 | XMS | Encounter Summary ---
Demographics + + + | Address | [address] | | | [place] [address] | + + + | Home Phone [...] Team Providers + +------+ + | Care Surgeon Chief Name | Role | Phone | + [...] Provider Unknown | | | | | [place], [place] | | | | | | [address] | (Fax) | | | | | [...] 2020 | Monitor | | MD [facility] | Interrogation | | | | | [place], | (Primary Dx); | | | | | [place] [address] | Pacemaker Dual | | | | | [phone] | Chamber, MRI | | | | [...] [place] | | | | | | [id number] | | | | | | | | +--------+ + + + + documented as of this encounter Visit Diagnoses Not on filedocumented in this encounter"
--- OUTSIDE RECORDS SUMMARY | ~2020-05-18 | XMS | Encounter Summary ---
Demographics + + + | Address | [address] | | | [place] [address] | + + + | Home Phone [...] Team Providers + +------+ + | Care Cooker Operator Name | Role | Phone | [...] Monitor | CARDIOLOGY [address] | [address] | Interrogation | | | | [place], | [place], | (Primary Dx); | | | | [place] [address] | [place] [address] | Pacemaker Dual | | | | [phone] | [phone] | Chamber, MRI | | | | [...] Paceart documentation and remote PDF scanned into [facility] for remote interrogation re sults. Data [...] Interrogation | | | | | [place], | (Primary Dx); | | | | | [place] [address] | Pacemaker Dual | | | | | [phone] | Chamber, MRI | | | | | | compatible, 05/14/17 | | | | | | [facility]; | | | | | | 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) | +--------+ + + + + | 01/05/ | Office | Cardiology | Emely Gabriel, | | | 2020 | Visit | | APPAREL PATTERN MAKER [address] | | | | | | [place] | | | | | | [address] | | | | | | | [...] remote PDF scanned into | | | [facility] for remote interrogation results. Data collected [...]
--- OUTSIDE RECORDS SUMMARY | ~2020-05-18 | XMS | Encounter Summary ---
Demographics + + + | Address | [address] | | | [place] [address] | + + + | Home Phone [...] + + | Author | [facility] | | | and [place] | + + + | Organization | [facility] | | | [...] Team Providers + +------+ + | Care Fabric Sourcer Name | Role | Phone | + +------+ + PCP | Unavailable | + +------+ + Encounter Details +--------+ + + + + | Date | Type | Department | Care Team | Description | +--------+ + + + + | 03/26/ | Hospital | [facility] | Conversion | CORON ATHEROSCL | | 2004 | Encounter | CONVERSION DEP [address] | Transaction, | [address] | | | | [address] | Provider Unknown | | | | | [place], [place] | [phone] | | | | | [address] | | | | | | [phone] | | | +--------+ + + + [...] (Primary Dx); | | | | | [place] [address] | Pacemaker Dual | | | | | [phone] | Chamber, MRI | | | | | | compatible, 05/14/17 | | | | | | [facility]; | | | | | | 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) | +--------+ + + + + | 01/05/ | Office | Cardiology | Emely Gabriel, | | | 2020 | Visit | | RESEARCH GEOLOGIST [address] | | | | | | [place] | | | | | | [address] | | | | | | | | +--------+ + + + + documented as of this encounter Visit Diagnoses + + | Diagnosis | + + | Coronary atherosclerosis of [place] coronary artery | + + | Remote Device Interrogation - Primary Fitting and adjustment of cardiac pacemaker | + + | Pacemaker Dual Chamber, MRI compatible, 05/14/17 [facility] Cardiac pacemaker | | in situ | + + | 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
--- OUTSIDE RECORDS SUMMARY | ~2020-05-18 | XMS | Encounter Summary ---
Demographics + + + | Address | [address] | | | [place] [address] | + + + | Home Phone [...] Team Providers + +------+ + | Care Inspector Exhaust Emissions Name | Role | Phone | + +------+ + | Antonio Pualino MD | PCP | | + +------+ + Reason for Visit + +--------+ + | Reason | Onset | Comments | | | Date | | + +--------+ + | Appointment | 04/21/ | | | | 2018 | | + +--------+ + Encounter Details +--------+ + + + + | Date | Type | Department | Care Team | Description | +--------+ + + + + | 04/21/ | Telephone | [facility] [place] | Cruzito Bird, | Appointment | | 2017 | | CARDIOLOGY [address] | [address] | | | | | [place], | [place], | | | | | [place] [address] | [place] [address] | | | | | [phone] | [phone] | | | | | | | [...] Notes Telephone Encounter - Malka Sepulveda - 04/21/2018 9:51 AM PDTCalled and spoke with melissa starkey, he is now scheduled for OC/THR with Emely Gabriel. elephone Encounter - Nancy Dougherty RN - 04/21/2018 9:34 AM PDTPatient was due for 6 month OC/THR in February. No current scheduled appointment, could not locate patient's follow-up form in recalls. Please call patient to schedule. Electronically signed by: Nancy Dougherty RN 04/21/2018 9:35Electronically signed by Nancy Dougherty RN at 04/21 9:35 AM PDTdocumented in this encounter Plan of [...] Dx); | | | | | [place] [address] | Pacemaker Dual | | | | | [phone] | Chamber, MRI | | | | | | compatible, 05/14/17 | | | | | | [facility]; | | | | | | 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) | +--------+ + + + + | 01/05/ | Office | Cardiology | Emely Gabriel, | | | 2020 | Visit | | ANNEALER [address] | | | | | | [place] | | | | | | [address] | | | | | | | | +--------+ + + + + documented as of this encounter Visit Diagnoses Not on filedocumented in this encounter"
--- OUTSIDE RECORDS SUMMARY | ~2020-05-18 | XMS | Encounter Summary ---
Demographics + + + | Address | [address] | | | [place] [address] | + + + | Home Phone | | + + + | Preferred Language | Unknown | + + + | Marital Status | | + + + | Congregation Affiliation | [id number] | + + + [...] Providers + +------+ + | Care Product Ambassador Name | Role | Phone | + +------+ + | Ferdinand Goldberg | PCP | | | MD | | | + +------+ + Reason for Visit + + + | Reason | Comments | + + + | Coagulation Disorder | Directed to ED from [facility] with INR 13.0. Pt. bleeding from [...] | | Epistaxis | | [address] | | | | | Essential | | [place], | | | | | hypertension | | [place] | | | | | Pulmonary | | [address] | | | | | HTN (HCC) | | Phone: | | | | | Chronic | | [phone] | | | | | diastolic | | Fax: | | | | | congestive | | [phone] | | | | | heart | [...] + + | 04/01/ | Hospital | [facility] | Jose, | Excessive | | 2015 - | Encounter | MED CTR ICU [address] | Tristan Truong MD [address] | anticoagulation | | | | [place], | [address] [place] | (Primary Dx); | | 04/04/ | | [place] [address] | [place] [address] | Epistaxis; H/O | | 2014 | | [phone] | [phone] | aortic valve | | | | | | replacement; | | | | | Jorge Phelps MD | Essential | | | | | [address] | hypertension; | | | | | [place], [place] | Dementia, without | | | | | [address] | behavioral | | | | | [...] might be different fro m the original. [place] DISCHARGE SUMMARY Pt. Name/Age/: Jacklyn Siddiqi [...] (Coumadin) yet, you need daily Protimes at [facility] in [facility] starting Saturday and be sure the [facility] calls you every day with [...] will drift down. I suspect dietary changes IN FLIGHT TECHNICIAN contributed to over-anticoag. 15th still high with [...] but NOT restart ACEI Anemia Came into [facility] with INR above 10 with epistaxis and skin bleeding IN FLIGHT TECHNICIAN 15 accepta le H/O aortic valve replacement and single vessel CAD at [facility] October [address] [facility] AVR at [facility] and had CABG to 80-90% LAD October 2004 Hx of endocarditis Echo done CAD (coronary artery disease) CABG to LAD at time of AVR (for critical ) [facility] Oct 2014, cath then single vessel disea [...] Lasix gently albeit at lower dose then IN FLIGHT TECHNICIAN Dementia Son says Aricept no benefit Liver cirrhosis Ex ETOH use, prior CT at [facility] Pulmonary HTN Diastolic CHF Normal Cortrosyn Stim [...] Plan Home today Need to talk to [place] about followup NOT restart ACEI nor Beta Birdie NOT YET restart Coumadin Needs home medicine management Needs frequent INR outpatient regarding coumadin Addendum on I had nice phone call with Dr Glodberg about patient including the tachy b rady, coumadin still on hold with high INR, dementia, patient driving at excessive speed, [facility] for home med management, needing daily INR starting tomorrow and the Couma din clinic needs to contact him to ensure compliance, being borderline for needing pacemaker , having acute renal insuff when coming in [place] home off beta birdie and off ACEI and NOT to restart Coumadin until [place] [facility] says OK and to follow daily INR [facility] [place] I see he is on Fenofibrate which can effect his INR, possibly the [facility] would consider alterna tive agent since fenofibrate has no cardiovascular benefit. From Addendum at 1255 have EKG from [facility] from [address] seg changes are OLD. Since this is NOT a [facility] EKG I did put it into the [...] improved Eat Healthy Diet Daily protime at [facility] in [place] (Dr Goldberg will authorize) starting tomorrow (Saturday) and the [place] [facility] should call you each day with results and will tell you if and when to restart warfarin Lisinopril and metoprolol have been stopped We are arranging Home Health too Greater than 30 minutes were spent on discharge and coordination of post-hospital care. Electronically signed by: Jorge Phelps MD, 04/04/2015 8:47 [facility] Portions of this chart may have been created with 3D Hubs voice recognition software. Occasi onal wrong-word or sound-alike substitutions may have occurred due to the inherent carter itations of voice recognition software. Please read the chart carefully and recognize, using context, where these substitutions have occurred documented in this encounter Discharge Instructions Instructions Jorge Phelps MD - 04/04/2015Eat Healthy Diet Daily protime at [facility] lab in [place] (Dr Goldberg will authorize) starting tomorrow (Saturday) and the [place] [facility] should call you each day [...] | | | | | | | [place] starting | | | | | | | Saturday and | | | | | | | be sure the [place] | | | | | | | [...] Ramirez MD - 04/04/2015 7:20 AM PDT [place], [place] PROGRESS NOTE Patient: Jacklyn Siddiqi : 1935: Age: 79 y.o. MedRec: [id number] PCP: Ferdinand Goldberg Admission date: 04/01/2015 Hospital [...] 147 No results for input(s): PHART, PO2ART, DJL4GMP, EAU5KDH, BEART, K5ZAGNSI in the last 168 h ours. No results for input(s): SPECSOURCE, PHPOCB, HCO3, TCO2, BEART, BE, [id number] in the last 16 8 hours. Invalid input(s): ODUXY4BA, TYKG1RS Point of care glucose: No results for [...] will drift down. I suspect dietary changes IN FLIGHT TECHNICIAN contributed to over-anticoag. 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 Dementia Son says Aricept no benefit Liver cirrhosis Ex ETOH use, prior CT at [facility] Pulmonary HTN Diastolic CHF Normal Cortrosyn Stim [...] dementia, patient driving at excessive speed, [facility] for home med management, needing daily INR starting tomorrow and the [facility] clinic needs to contact him to ensure compliance, being borderline for needing pacemaker , having acute renal insuff when coming in [place] home off beta birdie and off ACEI and NOT to restart Coumadin until [facility] OK and to follow daily INR [facility] [place] I see he is on Fenofibrate which can effect his INR, possibly the [facility] would consider alterna tive agent since fenofibrate has no cardiovascular benefit. From Addendum at 1255 have EKG from [facility] from [address] seg changes are OLD. Since this is NOT a [facility] EKG I did put it into the Media Tab to allow comparison. I will contact Dr Aguilera about the bradycardia but I suspect the issue will be NOT using the Beta Birdie. Patient d id tell me that typically at home his pulse rate would be 52-53. Jorge Phelps MD 04/04/2015 7:20 [facility] Portions of this chart may have been created with 3D Hubs voice recognition software. Occasi onal wrong-word or [...] lungs clear to ascultation. Urinating without difficulty. Telephoto Engineer and hospitalist seen patient today. Susu Quiles Chris, Jorge Alejo MD - 04/03/2015 9:25 AM PDT [place], [place] PROGRESS NOTE Patient: Jacklyn Siddiqi : 1935: Age: 79 y.o. MedRec: [id number] PCP: Ferdinand Goldberg Admission date: 04/01/2015 Hospital [...] 1,000 mcg 1,000 mcg Oral Daily Jorge Phelsp MD 1,000 mcg at 04/03/15 0925 furosemide [...] 147 No results for input(s): PHART, PO2ART, KDK0DHL, RKE5ZVC, BEART, N9ODQFDR in the last 168 h ours. No results for input(s): SPECSOURCE, PHPOCB, HCO3, TCO2, BEART, BE, PHHB8FCH in the last 16 8 hours. Invalid input(s): FEAMA1CS, KVDX0LL Point of care glucose: No results for [...] will drift down. I suspect dietary changes IN FLIGHT TECHNICIAN contributed to over-anticoag. Acute renal failure (ARF) He says drinking OK and PVR zero Check U/S see result, no hydro, looks like medicorenal 13th improved, watch his K+ though as trending up 14th improved, did get 0.05 florinef yesterday and Lasix restarted yesterday Anemia Came into [facility] with INR above 10 with epistaxis and skin bleeding IN FLIGHT TECHNICIAN H/O aortic valve replacement and single vessel CAD at [facility] October [address] [facility] [address]R at [facility] and had CABG to 80-90% LAD October 2004 Hx of endocarditis Echo done CAD (coronary artery disease) CABG to LAD at time of AVR (for critical ) [facility] Oct 2014, cath then single vessel disea [...] Lasix gently albeit at lower dose then IN FLIGHT TECHNICIAN Dementia Son says Aricept no benefit Liver cirrhosis Ex ETOH use, prior CT at [facility] Pulmonary HTN Diastolic CHF Normal Cortrosyn Stim [...] From Addendum at 1255 have EKG from [facility] from [address] seg changes are OLD. Since this is NOT a [facility] EKG I did put it into the Media Tab to allow comparison. I will contact Dr Aguilera about the bradycardia but I suspect the issue will be NOT using the Beta Birdie. Patient d id tell me that typically at home his pulse rate would be 52-53. Jorge Phelps MD 04/03/2015 9:25 [facility] Portions of this chart may have been created with 3D Hubs voice recognition software. Occasi onal wrong-word or [...] Perez MD - 04/02/2015 8:43 AM PDT [facility] [place] PROGRESS NOTE Patient: Jacklyn Siddiqi : 1935: Age: 79 y.o. MedRec: [id number] PCP: Ferdinand Goldberg Admission date: 04/01/2015 Hospital [...] 147 No results for input(s): PHART, PO2ART, RDT4DDO, PWS3COC, BEART, R9SVNNHE in the last 168 h ours. No results for input(s): SPECSOURCE, PHPOCB, HCO3, TCO2, BEART, BE, [id number] in the last 16 8 hours. Invalid input(s): LNJRP5GZ, UQTP0PE Point of care glucose: No results for [...] though as trending up Anemia Came into [facility] with INR above 10 with epistaxis and skin bleeding IN FLIGHT TECHNICIAN H/O aortic valve replacement and single vessel CAD at [facility] October [address] [facility] AVR at [facility] and had CABG to 80-90% LAD October 2004 Hx of endocarditis Echo done CAD (coronary artery disease) CABG to LAD at time of AVR (for critical ) [facility] Oct 2014, cath then single vessel disea se Hypertension I did lower his metoprolol due to hang on on Lisinopril remains off but need to resta rt Lasix gently albeit at lower dose then IN FLIGHT TECHNICIAN Dementia Son says Aricept no benefit Liver cirrhosis Ex ETOH use, prior CT at [facility] Pulmonary HTN Diastolic CHF DVT Prophylaxis Coumadin [...] and SBP is above 90. I contacted [place] for comparison EKG as here he has [...] pending. Addendum at 1255 have EKG from [facility] from [address] seg changes are OLD. Since this is NOT a [facility] EKG I did put it into the Media Tab to allow comparison. I will contact Dr Aguilera about the bradycardia but I suspect the issue will be NOT using the Beta Birdie. Patient d id tell me that typically at home his pulse rate would be 52-53. Jorge Phelps MD 04/02/2015 8:43 [facility] Portions of this chart may have been created with 3D Hubs voice recognition software. Occasi onal wrong-word or [...] Sanam Mello RN - 04/01/2015 2:20 PM [id number]- Patient arrives fr om ED with FFP [...] might be different fro m the original. [place] HISTORY & PHYSICAL Patient: Jacklyn Siddiqi : 1935: Age: 79 y.o. MedRec: [id number] PCP: Ferdinand Goldberg Admission date: 04/01/2015 Hospital [...] had high INR at [facility] in [place] yesterday but not reachable until today and [...] is insure if CABG says leon at [facility] Hearing aid in repair, dentures in clear [...] cirrhosis (HCC) 2003 CT scan 2003 at [facility] Endocarditis 2009 Enterococcus 6 weeks [...] CKTOTAL No results for input(s): PHART, PO2ART, ZKS0HPO, MND0NFT, BEART, J6TLUQOD in the last 168 h ours. No results for input(s): SPECSOURCE, PHPOCB, HCO3, TCO2, BEART, BE, QRXO0ESX in the last 16 8 hours. Invalid input(s): DRIFH9RP, IOMT6CH (dot meylab) Xray Results: No results found. [...] H/O aortic valve replacement Oct 2004 at [facility] for critical [facility] Rupert AVR at [facility] Hx of endocarditis Hypertension Dementia Son says Aricept no benefit Liver cirrhosis Ex ETOH use, prior CT at [facility] CAD (coronary artery disease) Patient says had stents, [facility] says CABG, and [facility] did cardiac cath with single vessel disea se to LAD 80-90% and [facility] says did CABG October 2004 Pulmonary HTN [...] Echo (compared to prior repor t from [place] he is NOT worse per my comparison of reports) CMS Documentation I expect this patient will be hospitalized for greater than 2-midnights and expect the post -hospital plan to be discharge to home or to an adult foster home. Electronically signed by: Jorge Phelps MD 04/01/2015 13:56 [facility] Note updated on after getting [facility] Care Everywhere review done Portions of this chart may have been created with 3D Hubs voice recognition software. Occasi onal wrong-word or [...] in approximately 2005.. He was admitted to [facility] on 04/01/2015 for Over-anticoagulated. He was in [...] not clear. It was started at the [facility]. However, he has had episodes of [...] INR goal is 2-3, surgery done at [facility] Hypertension Liver cirrhosis (HCC) CVA (cerebral infarction) ([facility]) -2014 lacunar (not stated as new nor old) Dementia Alcoholic cirrhosis (HCC) 2003 CT scan 2003 at [facility] Endocarditis 2009 Enterococcus 6 weeks Amp + Gent PSA elevation 2008 Pt declined Bx then Peripheral vertigo 2012 BPPV left Venous ulcer ([facility]) 2013 Leg Retinal detachment 2010 CAD (coronary artery disease) 2004 Had CABG to LAD (for 80-90% LAD) surgery done at [facility] Pulmonary HTN (HCC) Severe on Echo 2014 Diastolic CHF (HCC) Echo 2014 EF 68, ascites, pulm HTN Over-anticoagulated 04/01/2015 PAST SURGICAL HISTORY Past Surgical History Procedure Laterality Date Cardiac surgery 2005 [facility] says [address] [facility] FAMILY HISTORY Family History Problem Relation Age of Onset Heart disease Father SOCIAL HISTORY He lives independently in a house with his dog. He maintains the home. His veterans benef its stem from service from [id number], the [place] War era. He does not use tobacco. [...] this chart may have been created with 3D Hubs voice recognition software. Occasi onal wrong-word or sound-alike substitutions may have occurred due to the inherent carter itations of voice recognition software. Please read the chart carefully and recognize, using context, where these substitutions have occurred. documented in this encounter ED Notes Tristan Garcia MD - 04/01/2015 1:18 PM PDTFormatting of this note might be differe nt from the original. [facility] Jacklyn Siddiqi Emergency Department Encounter Note [address] [place] [address] PCP:Ferdinand Goldberg [phone] CHIEF COMPLAINT: Chief Complaint Patient presents with Coagulation Disorder Directed to ED from [facility] with INR 13.0. Pt. bleeding from multiple skin tears. ED Room: ED02/ED02 HPI Jacklyn Siddiqi is a 79 y.o. male who presents to the Emergency Department for evaluation. The patient was sent from the [place] when he was found to have an [...] cirrhosis (HCC) 2004 CT scan 2004 at [facility] Endocarditis 2009 Enterococcus 6 weeks Amp + Gent PSA elevation 2008 Pt declined Bx then Peripheral vertigo 2012 BPPV left Venous ulcer (HCC) 2013 Leg Retinal detachment 2010 CAD (coronary artery disease) AR says had CABG with his AVR Pulmonary HTN (HCC) Severe on Echo 2014 Diastolic CHF (HCC) Echo 2014 EF 68, ascites, pulm HTN Over-anticoagulated 04/01/2015 Past Surgical History Procedure Laterality Date Cardiac surgery 2005 [facility] says [address]G [address] [facility] AVR CURRENT [...] Clear Clear PH UA 5.5 5.0-8.0 Specific [place] 1.010 1.001-1.030 PROTEIN UA Negative Negative BLOOD [...] Code Fresh Frozen Plasma Thawed UNIT # [id number] UNIT ABO AB UNIT RH NEG Unit Status Crossmatched PRODUCT: PLASMA, FROZEN <24 Result Value Ref Range Product Code Fresh Frozen Plasma Thawed UNIT # [id number] UNIT ABO AB UNIT RH NEG Unit Status Crossmatched ED COURSE & MEDICAL DECISION MAKING Pertinent Labs & Imaging studies were reviewed along with EMS notes and USP record s if applicable. (See chart for [...] Notes Plan of Care - Ana Dietrich, Group Practice Pediatrician-Clinical - 04/04/2015 11:56 AM PDTDischarge plans cont: Per request of Hospitalist, pertinent medical records including H&P, Dr. Aguilera consult, D/C summary, and labs faxed to [facility] at f# [phone] with call to Padmini confirming th is fax. Confirmation placed in ghost chart. T/C to [facility] regarding a referral order for this [...] his own again. T/C to Chris at p#[phone], and he confirmed that he would be [...] do this. Spoke with Padmini at the [facility] about possibly getting this patient on the Home Based Progr am per K[facility]'s [facility] that the [facility]. Padmini stated that she would be in the notes regarding this request to his PCP, Dr. Goldberg, where this will need to be started. Also, spoke with Janna, at the [facility] Coumadin clinic, and she requested that this CM send th e discharge summary and latest INR to her attn to f# [phone]. This was done and confirm ation placed in ghost chart. Janna stated that patient's STRATEGY ASSOCIATE is Hellen Alla at the [facility] Coumadin clinic. Patient's son, Jacklyn, transported patient home today to [place], [place].Electronically johnny d by: Ana Dietrich, UNIVERSITY PRESIDENT 04/04/2015 12:14 lan of Care - Mary [...] time. Left EF 65-70%. lan of [facility] - Mary Fiore RN - 04/03/2015 10:05 PM PDTProblem: General Plan of Care (Adult, Obstetrics ) Goal: Individualization/Patient-Specific Goal (Adult, Obstetrics) Pt. Is independent at home. Pt likes to have warm blankets when going to sleep at night. Pt likes skim milk with every meal. Outcome: Progressing lan of [facility] - Mary Morataya RN - 04/03/2015 10:05 PM PDTProblem: Heart Failure (Adult, Obstetrics) Goal: Prevent/Manage Potential Problems (Heart Failure (Adult, Obstetrics)) Outcome: Signs and symptoms of listed potential problems will be absent or manageable (refe rence CPG) Outcome: Progressing lan of [facility] - Susu Tam RN - 04/03/2015 6:10 [...] Left EF 65-70%. Susu Quiles lan of [facility] Ashley Marques RN - 04/03/2015 10:08 AM PDTProblem: General Plan of Care (Adult, Obstetrics) Goal: Care Plan Shift Summary & Review . Discharge planning; Reviewed Ana's 04/01 notes. Discussed case with Dr. Phelps. Dr. Phelps is planning on discharging Mr. Siddiqi on Saturday, 04/04. He would like him to have increased [place] s upport. He needs closer med management.. Faxed update to [facility] and requested to evaluate his eligibility for Home Based Primary Care or increased Home Health visits. His daughter (SAMEER sommer om [place]) was managing his meds, but his med changes happen frequently and he needs more oversight than she can provide long distance. Ana to follow up with [facility] on 04/04/15. Karyn Marques RNtenant relations coordinator lan of Care - Ayah Puentes RN [...] (refe rence CPG) Outcome: Progressing lan of [facility] Sanam Spencer RN - 04/01/2015 5:59 PM [...] VSS lan of Care - Ana Dietrich, Group Practice Pediatrician-Clinical - 04/01/2015 5:41 PM PDTProblem: General Plan of Care (Adul t, Obstetrics) Goal: Care Plan Shift Summary & Review . Discharge plans: Met with patient in his room. He was talkative but at times stopped in the middle of the sentence trying to remember what to say. He states he is living in one of his son's homes in [place] while he is gone and he is ta dann care of his dog. He reports that the home is a single level home. He also uses a cane to walk since his legs have been giving him some pain issues. He still drives and actually was driving here to go see his MD, Dr. Goldberg at the [facility], whe rina they called and had him go straight to the ED here at the hospital, due to his high INR va lues. He confirmed he is a and gets his meds thru mail order from the [facility] and he can us e [employer] for [...] back home. He also stated that his ofkkwphp-um-jvy is planning on coming in from [place] on Saturday an d will be staying there at the house for about 2-3 weeks, which was confirmed with his daugh Cassandra pinedo, when this CM called her. T/C made to Cassandra Guthrie p# [phone], and left a message to return call. [...] with the [facility] in [place] and they have helped him by paying [...] CM to follow.Electronically signed by: Ana Dietrich, UNIVERSITY PRESIDENT 04/01/2015 17:40 D Triage Notes - Dion [...] Dx); | | | | | [place] [id number] | Pacemaker Dual | | | | | [phone] | Chamber, MRI | | | | [...] [place] | | | | | | [address] | | | | | | | [...] [address] | [place] | [phone] | | [facility] | | [address] | | | - LABORATORY | | [...] [address] | Donita Duckworth MD | [phone] | | [facility] | | [address] | | | - LABORATORY | | [...] [address] | Donita Duckworth MD | [phone] | | [facility] | | [address] | | | - LABORATORY | | [...] | | | | | | [facility] | | | | [...] | mL/min/1.73m2 | [facility] | | | [place] | RATE,ESTIMATED | | MEDICAL | | | | mL/min/1.48y4Dgxw than | | CENTER - | | [...] + | [facility] | [address] | [place] | [phone] | | [facility] | | [address] | | | - LABORATORY | | [...] | | MIN | | | [facility] | | | | | | [...] [address] | [place] | [phone] | | [facility] | | [address] | | | - LABORATORY | | [...] [address] | Donita Duckworth MD | [phone] | | [facility] | | [address] | | | - LABORATORY | | [...] | | BASE | | ug/dL | [facility] | | | | [...] [address] | [place] | [phone] | | [facility] | | [address] | | | - LABORATORY | | [...] + | [facility] | [address] | Donita Duckworth MD | [phone] | | [facility] | | [address] | | | - LABORATORY | | [...] + | [facility] | [address] | [place] | [phone] | | [facility] | | [address] | | | [...] | 5.0 | 3.5 - 5.1 | [facility] | | | | | mmol/L | [...] mL/min/1.73m2 | [facility] | | | [place] | RATE,ESTIMATED | | MEDICAL | | | | mL/min/1.69w7Dqio than | | CENTER - | | [...] | 8.7 | 8.3 - 10.5 | [facility] | | | | | mg/dL | [facility] | | | | | | MEDICAL | | | | | | CENTER - | | | | | | LABORATORY | | + + + + + + | Albumin | 3.1 (L) | 3.2 - 5.0 g/dL | [facility] | | | | | | [facility] | | | | [...] + | [facility] | [address] | [place] | [phone] | | [facility] | | [address] | | | - LABORATORY | | [...] [address] | [place] | [phone] | | [facility] | | [address] | | | - LABORATORY | | [...] mL/min/1.73m2 | [facility] | | | [place] | RATE,ESTIMATED | | MEDICAL | | | | mL/min/1.65z4Xwud than | | CENTER - | | [...] [address] | [place] | [phone] | | [facility] | | [address] | | | - LABORATORY | | [...] + | [address] | [address] | [place] | [phone] | | [facility] | | [address] | | | - LABORATORY | | [...] + + + | UNIT # | [id number] | | [facility] | | | | [...] St | [place] | | | [facility] | | [address] | | | - BLOOD BANK | [...] + + + | UNIT # | [id number] | | [facility] | | | | [...] St | [place] | | | [facility] | | [address] | | | - BLOOD BANK | [...] ST. | [address] | [place], [place] | [phone] | | [facility] | | [address] | | | - LABORATORY | | [...] ST. | [address] | [place], [place] | [phone] | | [facility] | | [address] | | | - LABORATORY | | [...] | | | | | | [employer] | | | | | [...] ST. | [address] | [place], [place] | [phone] | | [facility] | | [address] | | | - LABORATORY | | [...] + | [facility] | [address] | [place] | [phone] | | [facility] | | [address] | | | - LABORATORY | | [...] [address] | [place] | [phone] | | [facility] | | [address] | | | - LABORATORY | | [...] 1.80 (H) | 0.60 - 1.30 | [facility] | | | | | mg/dL | [facility] | | | | | | MEDICAL | | | | | | CENTER - | | | | | | LABORATORY | | + + + + + + | eGFR, | 36 (L)Comment: | >=60 | [facility] | | | non- | GLOMERULAR FILTRATION | mL/min/1.73m2 | [facility] | | | [place] | RATE,ESTIMATED | | MEDICAL | | | | mL/min/1.64o9Whtn than | | CENTER - | | [...] [address] | [place] | [phone] | | [facility] | | [address] | | | - LABORATORY | | [...] + | Chase Zepeda Results In - 04/01/2015 5:39 PM [...] [address] | [place] | [phone] | | [facility] | | [address] | | | - LABORATORY | | | | + + + + + ECHO Complete (04/01/2015 3:36 PM PDT) + + | Specimen | + + | | + + + + + | Narrative | Performed At | + + + | [facility] ECHOCARD[facility]GRAM REPORT | | | STUDY [...] | | | by: Cruzito Bird MD [facility] 04/01/2015 15:47 | | | Mathematical Statistician: Jp Jaquez, CONCHACS, RVT, RDMS | | [...] | [address] | [place] | [phone] | | [facility] | | [address] | | | - LABORATORY | | [...] into the clinical context for interpretation. | [facility] | | | - LABORATORY | + + + + + + + + | Performing | Address | City/State/Zipcode | Phone Number | | Organization | | | | + + + + + | [address] | [address] | [place] | [phone] | | [facility] | | [address] | | | - LABORATORY | | [...] ST. | [address] | [place], [place] | [phone] | | [facility] | | [address] | | | - LABORATORY | | [...] | [place] | | | [facility] | | [address] | | | - BLOOD BANK | [...] | Urine | | Yellow | [facility] | | | | | | [...] - 1.030 | [facility] | | | [place], | | | [facility] | | [...] [address] | [place] | [phone] | | [facility] | | [address] | | | - LABORATORY | | [...] + | [facility] | [address] | [place] | [phone] | | [facility] | | [address] | | | - LABORATORY | | [...] smear review. | [facility] | | | [place] | | | [facility] | | | - LABORATORY | + + + + + + + + | Performing | Address | City/State/Zipcode | Phone Number | | Organization | | | | + + + + + | [facility] | [address] | [place] | [phone] | | [facility] | | [address] | | | - LABORATORY | | [...] + | [facility] | [address] | [place] | [phone] | | [facility] | | [address] | | | - LABORATORY | | [...] mL/min/1.73m2 | [facility] | | | [place] | RATE,ESTIMATED | | MEDICAL | | | | mL/min/1.42y9Giqc than | | CENTER - | | [...] [address] | [place] | [phone] | | [facility] | | [address] | | | - LABORATORY | | [...] [address] | [place] | [phone] | | [facility] | | [address] | | | - LABORATORY | | [...] | ---- 04/01/2015 | | | 09:27 [facility] Emergency | | | VISIT COUNT (1 YR.) Visits Medicaid NE Dx Location | | | ------ --------- 1 0 | | | [facility] 1 0 | | | [facility] 2 0 | | | Total Note: Visits indicate total known visits. | | | Medicaid [place] Dx are the number of primary diagnoses on the [facility]'s | | | non-emergent dx list. | | | | | | --- SHAZIA has no Care Guidelines for this patient. [place] | | | Prescription Review PDMP Report [...] + + | Performing | Address | City/State/[facility] Cent[facility] | Phone Number | | Organization [...] of unspecified type of vessel, | | [place] or graft | + + | Diastolic [...]
--- OUTSIDE RECORDS SUMMARY | ~2020-05-18 | XMS | Encounter Summary ---
Demographics + + + | Address | [address] | | | [place] [address] | + + + | Home Phone | | + + + | Preferred Language | Unknown | + + + | Marital Status | | + + + | Anglican Affiliation | 1061 | + + + | Race | Unknown | + + + | Ethnic Group | Unknown | + + + Author + + + | Author | [facility] | | | and [place] | + + + | Organization | [facility] | | | [...] Providers + +------+ + | Care Water Taxi Operator Name | Role | Phone | + +------+ + | Emelina Robertson MD | PCP | Unavailable | + +------+ + Encounter Details +--------+ + + + + | Date | Type | Department | Care Team | Description | +--------+ + + + + | 03/21/ | Hospital | [facility] | Wilfredo Woodson, | | | 2016 | Encounter | MED CTR ACUTE | PT [address] | | | | | PHYSICAL THERAPY | [place] | | | | | [address] | [id number] | | | | | [place] [address] | | | | | | [phone] | | | +--------+ + + + [...] Interrogation | | | | | 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
--- OUTSIDE RECORDS SUMMARY | ~2020-05-18 | XMS | Encounter Summary ---
Demographics + + + | Address | [address] | | | [place] [address] | + + + | Home Phone [...] Team Providers + +------+ + | Care Sandblaster Supervisor Name | Role | Phone | [...] | | MAMIE [address] | [address] [place] | | | | | [place], | [place], | | | | | [place] [address] | [place] [address] | | | | | [phone] | [phone] | | | | | | | [...] | 2020 | Monitor | | [address] [facility] | Interrogation | | | | | [place] [place], | (Primary Dx); | | | | | [place] [address] | Pacemaker Dual | | | | | [phone] | Chamber, MRI | | | | [...] [place] | | | | | | [id number] | | | | | | | | +--------+ + + + + documented as of this encounter Visit Diagnoses Not on filedocumented in this encounter"
--- OUTSIDE RECORDS SUMMARY | ~2020-05-18 | XMS | Encounter Summary ---
Demographics + + + | Address | [address] | | | [place] [address] | + + + | Home Phone | | + + + | Preferred Language | Unknown | + + + | Marital Status | | + + + | Zoroastrianism Affiliation | 1061 | + + + [...] Team Providers + +------+ + | Care Injection Operator Name | Role | Phone | [...] Monitor | CARDIOLOGY [address] | [address] [place] | reprogramming/check | | | | [place], | [place], | (Primary Dx); | | | | [place] [address] | [place] [address] | Pacemaker Dual | | | | [phone] | [phone] | Chamber, MRI | | | | [...] Paceart documentation and remote PDF scanned into [employer] for remote interrogation results. Data collected by Mel Horne RN Presenting rhythm: Sinus rhythm atrial paced ventricular sensed 60 bpm. 93662 mode switch episodes accounting for 19% of [...] Monitor | | [facility] | Interrogation | | | | | 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 | | | Data collected by BATSHEVA Hightowerresenting rhythm: Sinus | | | rhythm atrial paced ventricular sensed 60 bpm.77953 mode switch | | | episodes accounting [...]
--- OUTSIDE RECORDS SUMMARY | ~2020-05-18 | XMS | Encounter Summary ---
Demographics + + + | Address | [address] | | | [place] [address] | + + + | Home Phone | | + + + | Preferred Language | Unknown | + + + | Marital Status | | + + + | Faith Affiliation | 1061 | + + + [...] Team Providers + +------+ + | Care Obstetrical Nurse Name | Role | Phone | + +------+ + PCP | Unavailable | + +------+ + Encounter Details +--------+ + + + + | Date | Type | Department | Care Team | Description | +--------+ + + + + | 09/07/ | Hospital | [facility] | Mauricio Goldberg | | | 2002 | Encounter | MED CTR GENERIC OP | MD [address] | | | | | CONV DEPT [address] | [place] | | | | | [place], | [place] [address] | | | | | [place] [address] | [phone] | | | | | [phone] | | | +--------+ + + + [...] Dx); | | | | | [place] [address] | Pacemaker Dual | | | | | [phone] | Chamber, MRI | | | | [...] [place] | | | | | | [address] | | | | | | | | +--------+ + + + + documented as of this encounter Visit Diagnoses Not on filedocumented in this encounter"
--- OUTSIDE RECORDS SUMMARY | ~2020-05-18 | XMS | Encounter Summary ---
Demographics + + + | Address | [address] | | | [place] [address] | + + + | Home Phone [...] Team Providers + +------+ + | Care Mold Parter Name | Role | Phone | + [...] | | | | CENTER [address] | [facility] [place] | heart failure) ([facility]) | | | | [place] | [place] [address] | (Primary Dx) | | | | [address] | [phone] | | | | | [phone] | | | +--------+ + + + [...] through Care Everywhere.CONGESTIVE HEAR T FAILURE, LEFT-SIDED (ICELANDIC)documented in this encounter Medications at Time of [...] might be different f rom the original. [facility] Johnny Siddiqi Emergency Department Encounter Note [address] [place] [address] PCP:Emelina Robertson MD [phone] CHIEF COMPLAINT Chief [...] INR goal is 2-3, surgery done at [facility] Hypertension Liver cirrhosis (HCC) CVA (cerebral infarction) -2014 lacunar (not stated as new nor old) Dementia Alcoholic cirrhosis (HCC) 2003 CT scan 2003 at [facility] Endocarditis 2009 Enterococcus 6 weeks Amp + Gent PSA elevation 2008 Pt declined Bx then Peripheral vertigo 2012 BPPV left Venous ulcer (HCC) 2013 Leg Retinal detachment 2010 CAD (coronary artery disease) 2004 Had CABG to LAD (for 80-90% LAD) surgery done at [facility] Pulmonary HTN (HCC) Severe on Echo [...] Acute exacerbation of CHF (congestive heart failure) ([facility]) PLAN Follow-up Information Schedule an appointment as soon as possible for a visit with Emelina Robertson MD. Specialty: Internal Medicine Contact information: [address] [place] [address] Discharge Medication List as of 04/20/2016 [...] Dx); | | | | | [place] [address] | Pacemaker Dual | | | | | [phone] | Chamber, MRI | | | | [...] [place] | | | | | | [address] | | | | | | | [...] + | [facility] | [address] | [place] | [phone] | | [facility] | | [address] | | | - LABORATORY | | [...] [address] | [place] | [phone] | | [facility] | | [address] | | | - LABORATORY | | [...] | | [employer] | | | [facility] | | | | | | MEDICAL [...] | + + + + + | [facility] | [address] | [place] | [phone] | | [facility] | | [address] | | | - LABORATORY | | [...] + | [facility] | [address] | [place] | [phone] | | [facility] | | [address] | | | - LABORATORY | | [...] mL/min/1.73m2 | [facility] | | | Maltese | RATE,ESTIMATED | | MEDICAL | | | | mL/min/1.98z8Fzsi than | | CENTER - | | [...] [address] | [place] | [phone] | | [facility] | | [address] | | | - LABORATORY | | [...] | | | | | | [facility] | | | | | | MEDICAL [...] [address] | [place] | [phone] | | [facility] | | [address] | | | - LABORATORY | | [...]
--- OUTSIDE RECORDS SUMMARY | ~2020-05-18 | XMS | Encounter Summary ---
Demographics + + + | Address | [address] | | | [place] [address] | + + + | Home Phone | | + + + | Preferred Language | Unknown | + + + | Marital Status | | + + + | Buddhism Affiliation | 1061 | + + + | Race | Unknown | + + + | Ethnic Group | Unknown | + + + Author + + + | Author | [facility] | | | and [place] | + + + | Organization | [facility] | | [...] Providers + +------+ + | Care Home Improvement Installer Name | Role | Phone | + [...] Monitor | CARDIOLOGY [address] | [address] [place] | Interrogation | | | | [place], | [place], | (Primary Dx); | | | | [place] [address] | [place] [address] | Pacemaker Dual | | | | [phone] | [phone] | Chamber, MRI | | | | [...] Paceart documentation and remote PDF scanned into [facility] for remote interrogation re sults. [...] | | [address] [facility] | Interrogation | | | | | 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 [...] of Remote Interrogation: | | 10/21/18Refer to [employer] documentation and remote PDF scanned into [employer] for remote | | interrogation results. Data [...]
--- OUTSIDE RECORDS SUMMARY | ~2020-05-18 | XMS | Encounter Summary ---
Demographics + + + | Address | [address] | | | [place] [address] | + + + | Home Phone | | + + + | Preferred Language | Unknown | + + + | Marital Status | | + + + | Episcopalian Affiliation | 1061 | + + + | Race | Unknown | + + + | Ethnic Group | Unknown | + + + Author + + + | Author | [facility] | | | and [place] | + + + | Organization | [facility] | | | and [...] Team Providers + +------+ + | Care Clock Assembler Name | Role | Phone | [...] Provider Unknown | | | | | [place], [place] | | | | | | [address] | (Fax) | | | | | [...] 2020 | Monitor | | MD [facility] | Interrogation | | | | | [place], | (Primary Dx); | | | | | [place] [address] | Pacemaker Dual | | | | | [phone] | Chamber, MRI | | | | [...] [place] | | | | | | [address] | | | | | | | | +--------+ + + + + documented as of this encounter Visit Diagnoses Not on filedocumented in this encounter"
--- OUTSIDE RECORDS SUMMARY | ~2020-05-18 | XMS | Encounter Summary ---
Demographics + + + | Address | [address] | | | [place] [address] | + + + | Home Phone [...] Team Providers + +------+ + | Care Artillery Or Naval Gunfire Observer Name | Role | Phone | + [...] Monitor | CARDIOLOGY [address] | [address] [place] | Interrogation | | | | [place], | [place], | (Primary Dx); | | | | [place] [address] | [place] [address] | Pacemaker Dual | | | | [phone] | Chamber, MRI | | | | [...] Paceart documentation and remote PDF scanned into [facility] for remote interrogation re sults. Data [...] Monitor | | [address] [facility] | Interrogation | | | | | 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 [...] Paceart documentation and remote PDF scanned into [employer] for remote | | interrogation results. Data [...]
--- OUTSIDE RECORDS SUMMARY | ~2020-05-18 | XMS | Encounter Summary ---
Demographics + + + | Address | [address] | | | [place] [address] | + + + | Home Phone [...] Team Providers + +------+ + | Care Music Store Manager Name | Role | Phone | [...] + | 05/08/ | Anesthesia | [facility] | Miguel Galicia MD | | | 2017 | Event | MED CTR MP INTRA OP | [address] | | | | | [address] | [place] | | | | | [place] | [address] | | | | | [address] | | | | | | [phone] | | | +--------+ + + + [...] | 05/09/171999 by | | eral | [id number] catheter system; | Xavier Bhardwaj, | Joanna Salazar, | | IV | 22 gauge; removed per | [employer] Architect | RN | | | policy/procedure, site [...] EVALUATION Johnny Siddiqi 81 y.o. male 1935 [id number] Procedure(s) EGD with Anesthesia (N/A Mouth) Cooperates? [...] signed by Miguel Galicia MD 05/08/2017 11:19 [facility] by Miguel Galicia MD at 05/08 11:19 AM PDTAnesthesia Preprocedure Evaluation - Miguel Galicia MD - 05/08/2017 9:19 AM PDT ANESTHESIA PREANESTHESIA EVALUATION Johnny Siddiqi 81 y.o. male 1935 [id number] Procedure(s): EGD with Anesthesia (N/A Mouth) Medical [...] Interrogation | | | | | [place], | (Primary Dx); | | | | | [place] [address] | Pacemaker Dual | | | | | [phone] | Chamber, MRI | | | | [...] | | | | St [place], [place] | | | | | | [address] | | | | | | | [...]
--- OUTSIDE RECORDS SUMMARY | ~2020-05-18 | XMS | Encounter Summary ---
Demographics + + + | Address | [address] | | | [place] [address] | + + + | Home Phone [...] Team Providers + +------+ + | Care Ear Nose Throat Surgeon Name | Role | Phone | + +------+ + PCP | Unavailable | + +------+ + Encounter Details +--------+ + + + + | Date | Type | Department | Care Team | Description | +--------+ + + + + | 12/02/ | Hospital | [facility] | Yordan Candelario, | | | 2012 | Encounter | MED CTR EMERGENCY | [address] | | | | | CENTER [address] | [place] | | | | | [place] | [address] | | | | | [address] | | | | | | [phone] | Raphael Karimi MD | | | [...] Raphael Karimi MD - 12/02/2012 5:32 [place] [address] Patient Name: JACKLYN SIDDIQI Provider: Unit #: [id number] [facility] [id number] : 1935 DATE: 12/02/2012 CHIEF COMPLAINT: Dizziness [...] sinus bradycardia with a rate of 58, NC of 142, QRS of 130. He has [...] Raphael Karimi M.D. 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) | +--------+ + + + + | 01/05/ | Office | Cardiology | Emely Gabriel, | | | 2020 | Visit | | MEAT WRAPPER [address] | | | | | | St [place] | | | | | | [address] | | | | | | | [...] Performed At | + + + | [facility] Diagnostic [facility] | [place] | | Department [address] [place] | [facility] | | [ rep ct street1+2] [ rep ct [facility] | | st zip] Signed | - IMAGING | | | | | Patient Name: JACKLYN SIDDIQI Physician: | | | WILBER : 1935 Age: 77 Sex: M Unit #: [id number] | | | Exam Date: 12/02/12 Location: ER | | | Report #: [id number] Page: | | | %(RAD)RES..mtdd.print.filter("pg") of %(RAD) | | | RES..mtdd.print.filter("tpg") | | | | | | Accession Number: [id number] | | | CHEST PORTABLE, 12/03/2012 CLINICAL [...] Transcribed Date/Time: | | | 12/03/2012 09:46 Pump Tester: | | | <<Signature on File>> | | | Deep | | | MD Jose12/03/12 1410 <Electronically signed by Deep Garcia MD> | | | Deep Garcia MD 12/03/12 0960 Pump Tester: Johnson | | | Xnocuvbbwgkiu76/13/13 0969 Yordan Candelario MD | | | Raphael Karimi MD | | + + + + + + + + | Performing | Address | City/State/Zipcode | Phone Number | | Organization | | | | + + + + + | [facility] | [address] | [place] | [phone] | | [facility] | | [address] | | | - IMAGING | | [...] + | [facility] | [address] | [place], [place] | [phone] | | [facility] | | [address] | | | - LABORATORY | | | | + + + + + | [facility] | [address] | [place], [place] | | | [facility] | | [address] | | | - LABORATORY | [...] + | [facility] | [address] | [place], [place] | [phone] | | [facility] | | [address] | | | - LABORATORY | | | | + + + + + | [facility] | [address] | [place], [place] | | | [facility] | | [address] | | | - LABORATORY | [...] | performed on the Tete | | [facility] | | | | [employer] | | MEDICAL | | | [...] + | [facility] | [address] | [place] | [phone] | | [facility] | | [address] | | | - LABORATORY | | | | + + + + + | [facility] | [address] | [place], [place] | | | [facility] | | [id number] [place] [address] | | | - LABORATORY | | [...] + + | Performing | Address | City/[facility]/Zipcode | Phone Number | | Organization | | | | + + + + + | [facility] | [address] | [place], [place] | [phone] | | [facility] | | [address] | | | - LABORATORY | | | | + + + + + | [facility] | [address] | [place], [place] | | | [facility] | | [address], [facility] | | | - LABORATORY [...] The | | | | | | [employer] | | | | | [...] + | [facility] | [address] | [place], [place] | [phone] | | [facility] | | [address] | | | - LABORATORY | | | | + + + + + | [facility] | [address] | [place], [place] | | | [facility] | | [id number] [place] [address] | | | - LABORATORY | | | | + + + + + documented in this encounter Visit Diagnoses Not on filedocumented in this encounter
--- OUTSIDE RECORDS SUMMARY | ~2020-05-18 | XMS | Encounter Summary ---
Demographics + + + | Address | [address] | | | [place] [address] | + + + | Home Phone [...] Team Providers + +------+ + | Care Gynecology Teacher Name | Role | Phone | [...] + + | 05/14/ | Surgery | [facility] | Cruzito Bird, | CV EP PPM System | | 2016 | | MED CTR CV INTRA OP | MD [address] [place] | Implant | | | | [address] | [facility] [place], | | | | | [place] | [place] [address] | | | | | [address] | [phone] | | | | | [phone] | | | +--------+---------+ + + + [...] Physician Discharge Summary Patient ID: Jacklyn Siddiqi [id number] 81 y.o. 1935 Admit date: 05/07/2017 Discharge [...] significantly so this was dis continued. The help desk assistant recommended putting in a permanent pacemaker and [...] normal Psychiatric: Appropriate affect and mood Disposition: [facility] Patient Instructions: Discharge Medications New [...] Care Everywhere.Pacemaker Impla ntation, Discharge Instructions for (Danish)documented in this encounter Medications at Time of [...] Philippe MD - 06/04/2017 8:18 PM PDT [facility] H[facility]PITALIST PROGRESS NOTE Patient: Jacklyn Siddiqi : 1935: Age: 81 y.o. MedRec: [id number] PCP: Antonio Paulino MD Admission date: 05/07/2017 [...] as outlined above. Yodit Philippe 06/04/2017 20:18 [facility] Shawn Lewis, [facility] Applications Engineer - 05/16/2017 9:29 AM PDTFormatting of this [...] am: INR 4. Warfarin education received NO- fishing captain. 5. Pharmacist to follow daily Warfarin Dosing Nomogram Warfarin Dosing Expectations Per P&T-approved Electronically signed by: Shawn Mercedes, Branch Lending Officer 05/16/2017 9:29 Michael Giang MD - 05/16/2017 [...] DOPamine Stopped (05/12/17 0745) norepinephrine Stopped (05/11/175) OBJECTIVE: PHYSICAL EXAM Latest VS: BP 121/41 [...] Cardiovascular Palp/Percussion: PMI in 5th ICS at [facility]; no lifts, thrills, palp S3 or S4. [...] He is in a class IIo f [place] Heart Association functional class. There is mild [...] made to ensure accuracy; however, inadvertent computerized grain broker errors may be pre sent. Electronically signed by: Cruzito iBrd MD 05/16/2017 7:18 Susan Diaz MD - 05/15/2017 7:43 PM PDT [facility] PROGRESS [facility] Patient: Jacklyn Siddiqi : 1935: Age: 81 y.o. MedRec: [id number] PCP: Antonio Paulino MD Admission date: 05/07/2017 [...] ou tlined above. Susan Vides 05/15/2017 19:43 [facility] Jessica Rivas, PharmD - 05/15/2017 7:41 [...] am: INR 4. Warfarin education received NO- fishing captain. 5. Pharmacist to follow daily Warfarin [...] DOPamine Stopped (05/12/17 0745) norepinephrine Stopped (05/11/17 1985) OBJECTIVE: PHYSICAL EXAM Latest VS: BP 135/43 [...] Sinus rhythm Confirmed by FREDERICK CHARLTON, BINU ([id number]) on 05/15/2017 5:56:04 AM ECG 12 lead [...] Sinus rhythm Confirmed by BINU MACK MD ([id number]) on 05/15/2017 5:57:23 AM CBC no Differential [...] He is in a class IIo f [place] Heart Association functional class. There is mild [...] made to ensure accuracy; however, inadvertent computerized grain broker errors may be pre sent. Electronically signed by: Cruzito Bird MD 05/15/2017 6:36 Susan Diaz MD - 05/14/2017 8:48 PM PDT [facility] Patient: Jacklyn Siddiqi : 1935: Age: 81 y.o. MedRec: [id number] PCP: Antonio Paulino MD Admission date: 05/07/2017 [...] ou tlined above. Susan Vides 05/14/2017 20:48 [facility] Jessica Rivas PharmD - 05/14/2017 4:08 [...] am: INR 4. Warfarin education received NO- fishing captain. 5. Pharmacist to follow daily Warfarin Dosing Nomogram Warfarin Dosing Expectations Per P&T-approved Electronically signed by: Jessica Delaney PharmAsaf 05/14/2017 16:08 Michael Giang MD - 05/14/2017 [...] (L/min) Av.8 Min: 1 Max: 2 05/12 07 - 05/13 1900 In: 900 [P.O.:900] Out: [...] treatment were discussed with the patient in [facility]. The patient decides to proceed with the procedure. 2. Resume Coumadin after procedure today. 3. Start amiodarone oral loading today to treat A. fib with RVR. Portions of this report were transcribed using voice recognition software. Every effort wa s made to ensure accuracy; however, inadvertent computerized grain broker errors may be pre sent. Electronically signed by: Cruzito Bird MD 05/14/2017 6:25 row, Yodit Ramsay MD - 05/13/2017 7:23 AM PDTForm atting of this note might be different from the original. [facility] HOSPITALIST PROGRESS NOTE Patient: Jacklyn Siddiqi : 1935: Age: 81 y.o. MedRec: [id number] PCP: Antonio Paulino MD Admission date: 05/07/2017 [...] has lengthened Confirmed by FREDERICK CHARLTON, BINU ([id number]) on 05/13/2017 6:24:02 AM Culture, Blood Result [...] arthroplasty changes. Multiple lead wires overlie the fmcff-st-zaxt. Overall unchanged aeration of the lungs with [...] Patient was tested (positive) at the [facility], w as provided with CPAP, slept [...] awake and requires oxygen when a sleep. B-INSOLE AND OUTSOLE SPLITTER 488 on arrival. Echo 02/2017 showed EF [...] Pulmonary HTN Mild to severe by echo 7790-9920. Never smoked tobacco and no documente d [...] associated falls, on e occurring at the [facility] the day of admission and one [...] as outlined above. Yodit Philippe 05/13/2017 7:23 [facility] row, Yodit Ramsay MD - 0 05/12/2017 10:27 AM PDT [facility] PROGRESS [facility] Patient: Jacklyn Siddiqi : 1935: Age: 81 y.o. MedRec: [id number] PCP: Antonio Paulino MD Admission date: 05/07/2017 [...] arthroplasty changes. Multiple lead wires overlie the lessn-dx-coqu. Overall unchanged aeration of the lungs with [...] as outlined above. Yodit Philippe 05/12/2017 10:27 [facility] row, Yodit Ramsay MD - 0 05/11/2017 2:21 PM PDT [facility] PROGRESS NOTE Patient: Jacklyn Siddiqi : 1935: Age: 81 y.o. MedRec: [id number] PCP: Antonio Paulino MD Admission date: 05/07/2017 [...] with rate 70-80 on dopamine 5 mcg/min. [place] systolic valve cli ck at [facility]. Respiratory: [...] arthroplasty changes. Multiple lead wires overlie the fmdov-ut-boei. Overall unchanged aeration of the lungs with [...] pulmonary edema. Dictated and Signed by: Jadon Wihte MD Electronically signed: 05/11/2017 1:37 PM Current [...] as outlined above. Yodit Philippe 05/11/2017 14:21 [facility] hitney Bernard R N - 05/10/2017 7:34 PM [...] 05/10/2017 7:03 PM PDT HOSPITALIST progress NOTE [facility] [place] 05/10/2017 Rounding Physician: Yodit Philippe MD Patient Name: Jacklyn Siddiqi : 1935 Medical Record: [id number] Primary Hospital Problem: Atrial fibrillation with RVR [...] made to ensure accuracy; however, inadvertent computerized grain broker errors and typos m ay be present Electronically signed by: Yodit Philippe MD, DATE/TIME: 05/10/2017 19:03 [facility] HOSPITALIST TEAM arTania walton RN - 05/10/2017 4:33 PM PDTReport to [place], Patient in bed resting. row, Yodit Ramsay MD - 05/10/2017 3:59 PM PDTForma tting of this note might be different from the original. [facility] PROGRESS NOTE Patient: Jacklyn Siddiqi : 1935: Age: 81 y.o. MedRec: [id number] PCP: Antonio Paulino MD Admission date: 05/07/2017 [...] Atrial fibrillation Confirmed by BINU MACK MD ([id number]) on 05/10/2017 5:50:22 AM No results found. [...] as outlined above. Yodit Philippe 05/10/2017 15:59 [facility] Tania House RN - 05/10/2017 2:15 [...] to commode and one pers on assist. jacker feeder shows Sinus Tach with BBB. Patient on RA with sats 100%Electroni cece signed by Tania Cervantes RN at 05/10/2017 12:54 PM ELSYCrradha, Yodit Ramsay MD - 05/09/2017 8:11 PM PDT [facility] PROGRESS NOTE Patient: Jacklyn Siddiqi : 1935: Age: 81 y.o. MedRec: [id number] PCP: Antonio Paulino MD Admission date: 05/07/2017 [...] as outlined above. Yodit Philippe 06/04/2017 20:12 [facility] ancy Arechiga RN - 0 05/09/2017 1:59 PM PDTEvaluated pt for PICC line, upon review of chart placed midline 4 fren ch in left cephalic. Pt Needing IV access for blood draw and occasional IVP medication.Barbara ctronically signed by Nancy Arechiga RN at 05/09/2017 2:01 PM PDTCrow, Yodit Ramsay MD - 05/08 8:15 PM PDT [facility] PROGRESS NOTE Patient: Jacklyn Siddiqi : 1935: Age: 81 y.o. MedRec: [id number] PCP: Antonio Paulino MD Admission date: 05/07/2017 [...] as outlined above. Yodit Philippe 06/04/2017 20:15 [facility] Mary Vargas RN - 05/08/2017 2:57 [...] and RT notified. O2 2 L via INSOLE AND OUTSOLE SPLITTER applied. O2 sat increased to 91%. Maintained [...] for left leg pain a t hs. Duarte, Dolly Ac PharmD - 05/07/2017 7:38 PM PDT . [...] name, strength, and direction x MAR from [facility] facility: [facility] Starr Vaccines up to date? Yes No [...] performed and electronically signed by Isa Kaufman, Accounts Payables Clerk 16:14 Reviewed by: Dolly Rizzo, PharmD 05/07/2017 [...] Ramsay MD - 05/07/2017 2:14 PM PDT [facility] HISTORY AND PHYSICAL Pt. Name/Age/: Jacklyn [...] ulcers. He has a nonhealing ulcer ri [facility] forehead that he is told [...] Medical History: Diagnosis Date Alcoholic cirrhosis (HCC) 2004 CT scan 2003 at [facility] CAD (coronary artery disease) 2005 Had CABG to LAD (for 80-90% LAD) surgery done at [facility] CVA (cerebral infarction) -2014 lacunar (not stated as new nor old) Dementia Diastolic CHF (HCC) Echo 2013 EF 68, ascites, pulm HTN Endocarditis 2009 Enterococcus 6 weeks Amp + Gent H/O aortic valve replacement 2004 [place] AVR INR goal is 2-3, surgery done at [facility] Hypertension Liver cirrhosis (HCC) Over-anticoagulated 04/01/2015 Peripheral [...] by: Yodit Philippe MD 05/07/2017 14:14 [facility] documented in this enc ounter [...] obtained, the patient was taken to the garden labourer. 1 g of cefaz jamel was given [...] pulled through into the pocket. A 6 Austrian sheath was p laced over the guidewire and the core was removed. The additional guidewires were inserted through the sheath. The sheath was then removed. The guidewires were secured by hemostat, leaving one guidewire to be utilized for placement of an 8 Austrian safe sheath. A safe sheat h core [...] same technique as mentioned above, another 8 Austrian safe sheath was utilized to i ntroduce [...] #: LPA 1200 M, serial #: [id number]. C. Ventricular lead: [place], length 52 cm, model #: LPA 1200M, serial #: [id number]. PACEMAKER TESTING: A. Atrial lead: Sensing 2.4 [...] obstructive sleep apnea. He was admitted to [facility] on 05/07/2017 for Atrial fibrillation with [...] 2003 CT scan 2003 at [facility] CAD (coronary artery disease) 2004 Had CABG to LAD (for 80-90% LAD) surgery done at [facility] CVA (cerebral infarction) -2014 lacunar (not stated as new nor old) Dementia Diastolic CHF (HCC) Echo 2013 EF 68, ascites, pulm HTN Endocarditis 2009 Enterococcus 6 weeks Amp + Gent H/O aortic valve replacement 2004 [facility] [place] AVR INR goal is 2-3, surgery done at [facility] Hypertension Liver cirrhosis (HCC) Over-anticoagulated 04/01/2015 Peripheral [...] HEALTH + HOSPITALS MEDICAL PROCED URE UNIT FAMILY HISTORY Family [...] tablet under the tongue every 5 pooja micheal as needed for chest pain, up to [...] INFUSIONS: DOPamine Stopped (05/12/17 0745) norepinephrine Stopped (05/11/178) ALLERGIES Allergies Allergen Reactions Latex Rash REVIEW [...] Flow (L/min) Av Min: 2 Max: 2 05/111 - 05/13 0700 In: 728.8 [P.O.:400; I.V.:328.8] Out: 775 [Urine:775] Body mass index is 37.93 kg/m.; Body surface area is 2.23 meters squared. Constitutional General appearance: Male, elderly, well developed, well nourished, well groomed, no ac [place] distress Cardiovascular NYHA Class: II- Symptoms with moderate exertion Palp/Percussion: PMI in 5th ICS at [facility]; no lifts, thrills, palp S3 or S4. [...] has lengthened Confirmed by BINU MACK MD ([id number]) on 05/13/2017 6:24:02 AM Culture, Blood Collection [...] He is in a class II of [place] Heart Association functional class. There is fluid [...] patient. Electronically signed by: Cruzito Bird MD [facility] 05/13/2017 7:03 Portions of this chart may have been created with [employer] voice recognition software. Occasi onal wrong-word or sound-alike substitutions may have occurred due to the inherent carter itations of voice recognition software. Please read the chart carefully and recognize, using context, where these substitutions have occurred. Amelie Alvarez RN - 05/08/2017 11:53 AM PDTAssociated O rder(s): IP CONSULT TO WOUND OSTOMY NURSEMrJosefina Siddiqi is a [facility] who [facility], that has the Coban 2 placed every /Sat which were just placed yesterday . Per the patient he has two ulcerations to the left LE POA. His son and him do not want the wraps removed until SaturdayMay 10 please. OT and Nursing to document wound/ulcers at that session. Have requested [place] medical records as well to have in the paper chart. Amelie Pack RN [facility] Ext [phone] docume nted in this encounter ED Notes [...] Medical History: Diagnosis Date Alcoholic cirrhosis (HCC) 2004 CT scan 2003 at [facility] CAD (coronary artery disease) 2005 Had CABG to LAD (for 80-90% LAD) surgery done at [facility] CVA (cerebral infarction) -2014 lacunar (not stated as new nor old) Dementia Diastolic CHF (HCC) Echo 2013 EF 68, ascites, pulm HTN Endocarditis 2009 Enterococcus 6 weeks Amp + Gent H/O aortic valve replacement 2004 [facility] [place] AVR INR goal is 2-3, surgery done at [facility] Hypertension Liver cirrhosis (HCC) Over-anticoagulated 04/01/2015 Peripheral [...] take s three times weekly on Mon, Sat, Sat FUROSEMIDE (LASIX) 40 MG TABLET Take 40 [...] UA, POC Negative Negative, 100 mg/dL Specific Winner, UA, POC 1.025 1.001 - 1.030 Blood, [...] TEXT Not Confirmed Raphael Karimi MD 05/07/17 8001 Raphael Karimi MD 05/07/17 1248 documented in this en counter Miscellaneous Notes Plan of Reena - Erin Gates, OT - 05/16/2017 2:42 [...] Kwok MD - 05/16/2017 2:20 PM PDT INTERMEDIATE FACILITY TRANSFER ORDERS Patient Name: Jacklyn Siddiqi Patient : 1935 Gender: male Date of Admission: 05/07/2017 Date of Discharge: 05/16/2017 Admitting Provider: Yodit Philippe MD Discharging Provider: Susan Vides MD Consultants: Dr Nettles PCP: Antonio [facility]ino [facility]: CODE STATUS: [x] Attempt CPR [] Do not resuscitate If patient is pulseless and not breathing, RN/PIE MAKER MACHINE may pronounce . Advanced Directives included: [] [...] Reactions Latex Rash Diet: [x] As tolerated STAFF SCIENTIST may upgrade or downgrade diet as condition [...] Whole [] Thin Liquids [] Cut-up [] Put-In-Bay Thick [] Advanced Chopped [] Honey Thickened [] Chopped [] Advanced Ground [] 1:1 feedings [] Ground/Pureed [] Other: Tube Feedings: [] PEG [] GT [] JT [] NGT [] Formula type: (Log Check Scaler may change/substitute if indicated). [] Continuous Rate: [...] & Management for: restrict ed limb [] STAFF SCIENTIST Evaluation &Management for: [] Other: Wound/Skin Care: [...] Susan SAWYER MD, certify that post hospital residential care is medically nece ssary on a continuing basis for any of the conditions for which he/she received care during this hospitalization. Check one: [x] Skilled [] Intermediate Additional Orders/Instructions Physician's signature: Susan Jarvis MD05/16/2017 14:[address] [facility] NURSING [facility]AC[facility] USE ONLY: [] Admitting [...] Therapy Discharge Recommendations are: Recommended discharge disposition: residential facility Post discharge physical therapy recommendation: will [...] for assist for safety Bed-Chair, Level of Moffat: contact guard assist, set up required, verbal cues requir ed Chair-Bed, Level of Moffat: contact guard assist, set up required, verbal cues requir ed Bfd-Eiamx-Zun, Assistive Device: 2 wheeled walker (FWW) Sit-Stand, Level of Moffat: contact guard assist, verbal cues required Stand-Sit, Level of Moffat: contact guard assist, verbal cues required Uha-Lhvep-Tci, Assistive Device: 2 wheeled walker (FWW) Safety Issues: weight-shifting ability decreased Impairments: pain, strength decreased Bed Mobility increased time and need for frequent redirection Assistive Device: bed rails Supine to Sit, Level of Moffat: contact guard assist Sit to Supine, Level of Moffat: (NT, pt left sitting in bedside chair) [...] STG Status continued at 05/16/2017 1155 STG Moffat Level modified independent, supervised at 05/09/2017 1700 [...] Improving This CM spoke with Elkin at [facility] this AM and she is ready to accept patient when he is medically stable and will arrange transport there for patient. She confirmed yahaira t they also have OT there to do his leg wraps. Efaxed the MD prog notes, PT OT notes, and med list to her. TN# [id number]. Manually faxed the completed PASRR to SNF. Pkt started and placed in ghost chart. Electronically signed by: Ana Dietrich RN 05/16/2017 10:27 11:14 Left message with Elkin, at [facility], letting her know that patient will be d ischarged today and would be ready this afternoon sometime. Requested a return call with pic k up time. Elkin returned call with 1430 flower picker time. Let bedside RN know. Left message with Jacklyn , letting him know that his dad will be taken to the SNF today. Pkt completed with original completed PASRR, AVS, and Trazadone script. Given to student truck driver. Fa xed SNF transfer orders to [facility] [...] expiratory wheezes/fine crackles. lan of Care - [facility] Nanda gandara RN - 05/16/2017 5:04 [...] afternoon and let him know that the [facility] would only be a short term rehab not group home stay and that he would have to pay for the transpor t there, since he is non-service connected, per SAMEER [place], whom this CM called to confirm this above information. Jacklyn Joiner stated that his father will not go back to [facility], so reassured him yahaira t the corporate meeting planner at [facility] would help find a terminal supervisor place for him since he will [...] Therapy Discharge Recommendations are: Recommended discharge disposition: residential facility Post discharge physical therapy recommendation: will [...] and attending to task Bed-Chair, Level of Moffat: contact guard assist, set up required, verbal cues requir ed Chair-Bed, Level of Moffat: contact guard assist, set up required, verbal cues requir ed Fco-Ybbkt-Jgl, Assistive Device: 2 wheeled walker (FWW) Sit-Stand, Level of Moffat: contact guard assist, verbal cues required Stand-Sit, Level of Moffat: contact guard assist, verbal cues required Dfh-Ezhpw-Rec, Assistive Device: 2 wheeled walker (FWW) Safety Issues: weight-shifting ability decreased Impairments: pain, strength decreased Bed Mobility increased time and need for frequent redirection Assistive Device: bed rails Supine to Sit, Level of Moffat: contact guard assist Sit to Supine, Level of Moffat: (NT, pt left sitting in bedside chair) [...] STG Status continued at 05/15/2017 1315 STG Moffat Level modified independent, supervised at 05/09/2017 1700 [...] forward to go to a rehab facil [facility] in the future. lan of [...] [facility] - Rob Dietrich RN - 05/14/2017 6:04 PM PDTProblem: Discharge Planning Goal: Patient will be discharged in a safe manner This CM met with patient per his request about his discharge plan. Let him know that [facility] has accepted him and he was aware [...] ngings out of [facility] in [place], since he is too high level of [...] [facility] bed for him. Let patient know that this will have to be done in the AM since they are already closed today. CM will need to call the [facility] in AM to see if patient is eligible for transfer to the [facility].Electronically signed by: Ana Dietrich RN 05/14/2017 18:04 [...] Therapy Discharge Recommendations are: Recommended discharge disposition: residential facility Post discharge physical therapy recommendation: will [...] treatment from his children Bed-Chair, Level of Moffat: contact guard assist, set up required, verbal cues requir ed Rcc-Egvlw-Wfy, Assistive Device: 2 wheeled walker (FWW) Sit-Stand, Level of Moffat: contact guard assist, verbal cues required Stand-Sit, Level of Moffat: contact guard assist, verbal cues required Jxq-Ghaoa-Vhk, Assistive Device: 2 wheeled walker (FWW) Safety Issues: weight-shifting ability decreased Impairments: pain, strength decreased Bed Mobility increased time and need for frequent redirection Assistive Device: bed rails Supine to Sit, Level of Moffat: contact guard assist Sit to Supine, Level of Moffat: (NT, pt left sitting in bedside chair) [...] STG Status continued at 05/14/2017 1600 STG Moffat Level modified independent, supervised at 05/09/2017 1700 [...] re questing to use commode. OT and INTELLIGENCE OPERATIONS assisted patient with functional t/f and limited [...] bed rails Supine to Sit, Level of Moffat: contact guard assist Sit to Supine, Level of Moffat: contact guard assist Transfers Sit-Stand, Level of Moffat: stand by assist, contact guard assist Stand-Sit, Level of Moffat: stand by assist, contact guard assist Rca-Ntxvb-Qik, Assistive Device: 2 wheeled walker (FWW) Toilet, Level of Moffat: contact guard assist, stand by assist Toilet, Assistive Device: 2 wheeled walker (FWW) Impairments: pain, strength decreased OT Goal Review Date Flowsheet Row Most Recent Value STG Review Date 05/16/17 at 05/09/2017 1604 LB Dressing Goal Flowsheet Row Most Recent Value STG Status new at 05/14/2017 1045 STG Moffat Level modified independent at 05/14/2017 1045 Toilet Transfer Goal Flowsheet Row Most Recent Value STG Status new at 05/14/2017 1045 STG Moffat Level supervised at 05/14/2017 1045 STG Assistive [...] Spiritual Evaluation: Patient is a "Bible Believing Evangelical" loves to pray and read the "Word." Spiritual Intervention: Listened to the patient's concerns about the upcoming procedure. Active Listening, past oral presence, and prayer was offered. Spiritual Outcomes: Patient appreciates operations officer trust department's prayer, seems less apprehensive. Spiritual Goals / Follow-up: Will see the patient as requested. If there are any other spiritual care issues that arise, please contact operations officer trust department. lan of Care - Kristina Ayers, VALARIE - 05/13/2017 3:57 PM PDTProblem: Patient Care [...] treatments well. lan of Care - Faith fatimaVelia, PT - 05/13/2017 1:40 PM PDTFormatting of [...] Therapy Discharge Recommendations are: Recommended discharge disposition: residential facility Post discharge physical therapy recommendation: will benefit from structured setting, ongo ing low intensity therapy Equipment Recommendations: 2 wheeled walker (FWW) Planned Interventions: balance training, gait training, strengthening Recommended Frequency: daily Patient Status/Goals: Reflects last filed data and may be from multiple contributors. Gait side-stepping at bedside Level of Moffat: 2 person assist required Assistive Device: 2 wheeled walker (FWW) Transfers pt weak and with dizziness, need for CGA for safety due to symptoms Sit-Stand, Level of Moffat: stand by assist, contact guard assist Stand-Sit, Level of Moffat: stand by assist, contact guard assist Dvv-Socya-Luz, Assistive Device: 2 wheeled walker (FWW) Safety Issues: weight-shifting ability decreased Impairments: pain, strength decreased Bed Mobility increased time d/t fatigue Assistive Device: none Supine to Sit, Level of Moffat: contact guard assist Sit to Supine, Level of Moffat: contact guard assist Functional Endurance impaired - SOB with limited activity [facility] Turning over in bed: [...] steps with a railing: dependent/unable TOTAL - [facility] : 14 Unable / dependent = 1 A lot / modA = 2 A little / Guillermo = 3 None / independent = 4 Completed the [facility] Activity Measure for Post Acute Care (AM-PAC) "6 Clicks" [facility] Mobility Inpatient Short Form. This version of [...] STG Status continued at 05/12/2017 1203 STG Moffat Level modified independent, supervised at 05/09/2017 1700 [...] Improving This CM called Elkin at [facility] [place], p# [phone], and she confirmed that she has a [...] Alert and oriented. Calls appropriately. lan of Reena - Sumeet Burr RRT - 05/13/2017 4:47 [...] pain. lan of Care - Donato Mcqueen, ENVIRONMENTAL HEALTH OFFICER - 05/12/2017 6:09 PM PDTProblem: Patient Care [...] sleeping. lan of Care - Javier Arana, FOOD AND BEVERAGE MANAGER - 05/12/2017 11:50 AM PDT Problem: Patient [...] unable to step in place Level of Moffat: 2 person assist required Assistive Device: 2 wheeled walker (FWW) Distance (feet): 15, 15 Transfers pt very weak with low BP, CGA to Min Assist for sit<>stand Sit-Stand, Level of Moffat: stand by assist, contact guard assist Stand-Sit, Level of Moffat: stand by assist, contact guard assist [id number], Assistive Device: 2 wheeled walker (FWW) Safety Issues: weight-shifting ability decreased Impairments: pain, strength decreased Bed Mobility NT; pt up in chair on arrival requested to stay up in chair post tx Assistive Device: none Supine to Sit, Level of Moffat: independent Sit to Supine, Level of Moffat: independent Therapeutic Exercise pt c/o of pain [...] STG Status continued at 05/12/2017 1203 STG Moffat Level modified independent, supervised at 05/09/2017 1700 [facility] Assistive Device 2 wheeled walker (FWW) at [...] urine an hour. lan of [facility] - Nataly Rosenbaum, VALARIE - 05/12/2017 [...] 2liters/minute nasal cannula lan of [facility] - Lisa Sherwood RN - 05/11/2017 [...] tare. lan of Care - Donato Mcqueen, ENVIRONMENTAL HEALTH OFFICER - 05/11/2017 4:33 PM PDTProblem: Patient Care [...] due to fear of falling Level of Moffat: 2 person assist required Assistive Device: 2 wheeled walker (FWW) Distance (feet): 15, 15 Stairs unable Bed Mobility Assistive Device: none Supine to Sit, Level of Moffat: independent Sit to Supine, Level of Moffat: independent Therapeutic Exercise Seated exercises: bilateral, long [...] STG Status new at 05/09/2017 1700 STG Moffat Level modified independent, supervised at 05/09/2017 1700 [...] dressed w non adherent drsg. lan of [facility] - Sana, Sudhakar Ac, ENVIRONMENTAL HEALTH OFFICER - 0 05/10/2017 4:23 AM PDTProblem: Patient [...] like me [facility] [place] [facility] [place] I faxed a referral to both [facility] ties and placed the cover sheets [...] due to fear of falling Level of Moffat: 2 person assist required Assistive Device: 2 wheeled walker (FWW) Distance (feet): 15, 15 Stairs NT Bed Mobility Assistive Device: none Supine to Sit, Level of Moffat: independent Sit to Supine, Level of Moffat: independent Balance ongoing assessment needed Therapeutic Exercise [...] STG Status new at 05/09/2017 1700 STG Moffat Level modified independent, supervised at 05/09/2017 1700 [...] Joanna Lock RN - 05/09/2017 6:30 AM [id number] (late entry) pt has remained in ST [...] lan o f Reena - Sudhakar Hood ENVIRONMENTAL HEALTH OFFICER - 05/09/2017 1:56 AM PDTProblem: Patient Care [...] rapid heart rate lan of Care - Az Martha hicks RN - 05/08/2017 6:27 PM PDTProblem: Patient [...] was contacted and he was transferred to [place] at 1136. At about 1445 his HR [...] PM PDTPlan of Care - Melinda Davis, CLAY DRY PRESS HELPER - 05/08/2017 4:23 PM PDTProblem: Discharge Planning Goal: Patient will be discharged in a safe manner Outcome: Improving This nurse case manager spoke with patient's POA and son Jacklyn Siddiqi regarding patient's discharg e plan. Son states that he now lives at [facility]. He was living at [facility] prior to [facility]. He has been living at [facility] about a month. Son states [...] they do go on daily walks around [facility]. Son states that he would appreciate case management to follow up with the [facility] as well with him in coordinating a discharge back there. Son states that he is his transp ortation and will transport him back when stable. This CM called the RN at [facility] at [phone]. Rhianna states that there has been a [...] a time to come assess patient. If [facility] to their [facility], we may need to consider a SNF. [...] PM PDTPt's Telemetry reading HR 150's-200. This FORMING TUBE SELECTOR we nt over to assess pt. Who was lying in bed talking on the phone with a family member. He den ies chest pain, SOB and/or a fluttering feeling in his chest. SBP 108/58. Pt.'s RN is at [facility]. EKG ordered and Dr. Philippe contacted about elevated HR concerns. Pt. To be transferred over to the ICU for closer monitoring. Electronically signed by Mary Cantu RN at 04/20 2:07 PM PDTD-C Instructions Provation - Peter Maciel MD - 05/08/2017 9:20 AM PDT Discharge Instructions for Upper Endoscopy Patient: Jacklyn Siddiqi : 1935 Acct: [id number] Exam Date: Monday, May 08, 2017 Doctor: Peter Maciel MD The chances of difficulty following this procedure are minimal. The following instruction s will assist you in your recovery. 1. Do Not eat or drink anything for 1 hour. Try sips of water first. If tolerated, resu me your regular diet or one recommended by your physician. 2. Do not drive, operate bety eKonnekt, make critical decisions, or do activities that [...] If unable to reach your physician, call [facility] Emergency Department at Ext. 2500 Your [...] 11:10 AM PDTPt [place] and [place] home an d pt fell twice this am once [place] the [place] once at gas station. Pt did not [...] 2019 | Monitor | | [address] | Interrogation | | | | | [address] [place], | (Primary Dx); | | | | | [place] [address] | Pacemaker Dual | | | | | [phone] | Chamber, MRI | | | | [...] | | | | | | [place], [place] | | | | | | [address] | | | | | | | [...] | | | | PDT | RVR ([facility]) | results section. | | | | | Persistent atrial | | | | | | fibrillation ([facility]) | | + +--------+ + + + [...] | | n - | | | | | | 2017 | | | [...] | | | ?MRN: | | | [id number] | | | [id number] | | | his | | | [...] | | | ent/cd | | | [id number] | | | -[id number] | | | [...] | | | St. | | | [place] | | | y H. | | [...] | | | St. | | | [place] | | | y H. | | [...] | | | St. | | | [place] | | | y H. | | [...] | | | St. | | | [place] | | | y | | | [...] [address] | [place] | [phone] | | [facility] | | [address] | | | - LABORATORY | | [...] | + + + + + | [facility] | [address] | [place] | [phone] | | [facility] | | [address] | | | - LABORATORY | | [...] | mL/min/1.73m2 | [facility] | | | Japanese | RATE,ESTIMATED | | MEDICAL | | | | mL/min/1.33y7Bfdm than | | CENTER - | | [...] + | [facility] | [address] | [place] | [phone] | | [facility] | | [address] | | | - LABORATORY | | [...] + | [facility] | [address] | [place] | [phone] | | [facility] | | [address] | | | - LABORATORY | | [...] | | | | BINU MACK MD ([id number]) | | | | | | on [...] | | | | BINU MACK MD ([id number]) | | | | | | on [...] was | | | taken to the garden labourer. 1 g of cefazolin was given intravenously. | | | Patient was hooked up to EKG, pulse oximetry and blood pressure | | | monitoring. All parameters were kept stable during procedure. The | | | [employer] [place] pacemaker financial service representative was present in the operating [...] the | | | pocket. A 6 Austrian sheath was placed over the guidewire and the core | | | was removed. The additional guidewires were inserted through the | | | sheath. The sheath was then removed. The guidewires were secured | | | by hemostat, leaving one guidewire to be utilized for placement of an | | | 8 Austrian safe sheath. A safe sheath core and [...] same technique as mentioned above, another 8 Austrian safe sheath | | | was utilized [...] #: LPA 1200 M, serial #: [id number]. C. | | | Ventricular lead: [place], length 52 cm, model #: LPA 1200M, serial | | | #: [id number]. PACEMAKER TESTING: A. Atrial lead: Sensing 2.4 [...] #: PM 2272, serial #: | | |[id number]. | | | | | |B. Atrial lead: [place], length 46 cm, model #: LPA 1200 M, | | |serial #: [id number]. | | | | | |C. Ventricular lead: [place], length 52 cm, model #: LPA 1200M, | | |serial #: [id number]. | | | | | |PACEMAKER TESTING: [...] obtained, the patient was taken to the garden labourer. | | 1 g of cefazolin was given intravenously. Patient was hooked up to EKG, pulse oximetry | | and blood pressure monitoring. All parameters were kept stable during procedure. The | | [employer] pacemaker financial service representative was present in the operating [...] into the pocket. A 6 | | Austrian sheath was placed over the guidewire and the core was removed. The additional | | guidewires were inserted through the sheath. The sheath was then removed. The | | guidewires were secured by hemostat, leaving one guidewire to be utilized for placement | | of an 8 Austrian safe sheath. A safe sheath core and [...] as mentioned | | above, another 8 Austrian safe sheath was utilized to introduce an [...] #: LPA 1200 M, serial #: [id number]. | | Ventricular lead: [place], length 52 cm, model #: LPA 1200M, serial #: [id number] | | [id number].PACEMAKER TESTING: A. Atrial lead: Sensing 2.4 mV, [...] + | [facility] | [address] | [place] | [phone] | | [facility] | | [address] | | | - LABORATORY | | [...] [place] | | | | | | [address] | | | | + + + + + + + + | Specimen | + + | Blood | + + + + + + + | Performing | Address | City/State/Zipcode | Phone Number | | Organization | | | | + + + + + | [facility] | [address] | [place] [address] | [phone] | + + + + + Ferritin [...] [address] | [place] | [phone] | | [facility] | | [address] | | | - LABORATORY | | [...] | | | | mg/dL | [address] | | | | [...] [address] | [place] | [phone] | | [facility] | | [address] | | | - LABORATORY | | [...] [place] | | | | | | [address] | | | | + + + + + + + + | Specimen | + + | Blood | + + + + + + + | Performing | Address | City/State/Zipcode | Phone Number | | Organization | | | | + + + + + | [facility] | [address] | [place] [address] | [phone] | + + + + + ECHO [...] Number 457 Patient Number | | | [id number] Date of Study 05/13/2017 Visit Number | | | [id number] Referring Physician | | | CRUZITO BIRD MD Number | | | MARGE VICFRANTZ Date of | | | 1935 Motor Room Controller TRELL LEWIS RDCS Age | | | 81 year(s) Interpreting | | | MARGE FLOR | | | Dealer Development Manager CRUZITO BIRD MD Gender | | | Male Nurse | | | Stress Senior Data Mining Analyst Procedure Type of Study TTE procedure: ECHO [...] | 51.23 ml | | | EF Czgrvvhrr75% Left Ventricle Diastolic Dimension: 4.23 | | [...] Volume: 51.23 ml | | | EF Zohtxllhq13% | | | | | | Left [...] Note | + + | Chase Zepeda In 05/13/2017 9:57 AM PDT Transthoracic Echocardiography Report | | (TTE) Demographics Patient Name AMANDA VILLASENOR Room Number 457 Patient | | Number [id number] Date of Study 05/13/2017 Visit Number [id number] | | Referring Physician CRUZITO BIRD MD Number | | MARGE FLOR Date of 1935 | | Motor Room Controller TRELL JOSHUA RODRIGUEZ Age 81 year(s) Interpreting | | MARGE FLOR Dealer Development Manager CRUZITO | | MD MARGE Gender [...] LA Volume: 51.23 ml EF | | Oeqnlmjjc94% Left Ventricle Diastolic Dimension: 4.23 cm Systolic [...] LA Volume: 51.23 ml | | EF Sdbdlbhod00% | | | | Left Ventricle | [...] | | ia | | | [facility] | | | | | | MEDICAL | | | | | | CENTER - | | | | | | LABORATORY | | + + + + + + + + | Specimen | + + | Blood | + + + + + + + | Performing | Address | City/State/[facility] | Phone Number | | Organization | | | | + + + + + | [facility] | [address] | [place] | [phone] | | [facility] | | [address] | | | - LABORATORY | | [...] ST. | [address] | [place], [place] | [phone] | | [facility] | | [address] | | | - LABORATORY | | [...] mL/min/1.73m2 | [facility] | | | Japanese | RATE,ESTIMATED | | MEDICAL | | | | mL/min/1.06b2Tzkb than | | CENTER - | | [...] [address] | [place] | [phone] | | [facility] | | [address] | | | - LABORATORY | | [...] + | [facility] | [address] | [place] | [phone] | | [facility] | | [address] | | | - LABORATORY | | [...] mL/min/1.73m2 | [facility] | | | Japanese | RATE,ESTIMATED | | MEDICAL | | | | mL/min/1.87n2Fmnh than | | CENTER - | | [...] Ratio | appended report. These | | [facility] | | | | results have [...] + | [facility] | [address] | [place] | [phone] | | [facility] | | [address] | | | - LABORATORY | | [...] [address] | [place] | [phone] | | [facility] | | [address] | | | - LABORATORY | | [...] + | [facility] | [address] | [place] | [phone] | | [facility] | | [address] | | | - LABORATORY | | [...] | | | incubation. | | [facility] | | | [...] ST. | [address] | [place], [place] | [phone] | | [facility] | | [address] | | | - LABORATORY | | [...] | | | | BINU MACK MD ([id number]) | | | | | | on [...] mL/min/1.73m2 | [facility] | | | Japanese | RATE,ESTIMATED | | MEDICAL | | | | mL/min/1.46q2Dhmw than | | CENTER - | | [...] + | [facility] | [address] | [place] | [phone] | | [facility] | | [address] | | | - LABORATORY | | [...] [address] | [place] | [phone] | | [facility] | | [address] | | | - LABORATORY | | [...] arthroplasty changes. Multiple lead wires overlie the pmjct-ta-ngph. | | | Overall unchanged aeration of [...] | | Multiple lead wires overlie the rwikq-zr-yeng. | | | | Overall unchanged aeration [...] [address] | [place] | [phone] | | [facility] | | [address] | | | - LABORATORY | | [...] | | | Cells | | | [facility] | | | | | | MEDICAL | | | | | | CENTER - | | | | | | LABORATORY | | + + + + + + | Red Blood | 3.58 (L) | 4.30 - 5.70 | [facility] | | | Cells | | M/uL | [facility] | | | | | | [...] [address] | [place] | [phone] | | [facility] | | [address] | | | - LABORATORY | | [...] [address] | [place] | [phone] | | [facility] | | [address] | | | - LABORATORY | | [...] (H) | 7 - 18 mg/dL | [facility] | | | | | | [facility] | | | | | | MEDICAL | | | | | | CENTER - | | | | | | LABORATORY | | + + + + + + | Creatinine | 1.28 | 0.60 - 1.30 | [facility] | | | | | mg/dL | [facility] | | | | | | MEDICAL | | | | | | CENTER - | | | | | | LABORATORY | | + + + + + + | eGFR, | 54 (L)Comment: | >=60 | [facility] | | | non- | GLOMERULAR FILTRATION | mL/min/1.73m2 | [facility] | | | Japanese | RATE,ESTIMATED | | MEDICAL | | | | mL/min/1.23x8Zdsb than | | CENTER - | | [...] [address] | [place] | [phone] | | [facility] | | [address] | | | - LABORATORY | | [...] [address] | [place] | [phone] | | [facility] | | [address] | | | - LABORATORY | | | | + + + + + Giselime INR (05/10/2017 8:33 PM PDT) + + [...] [address] | [place] | [phone] | | [facility] | | [address] | | | - LABORATORY | | [...] | | | | FREDERICK CHARLTON, BINU ([id number]) | | | | | | on [...] | | | | BINU MACK MD ([id number]) | | | | | | on [...] [address] | [place] | [phone] | | [facility] | | [address] | | | - LABORATORY | | [...] + | [facility] | [address] | [place] | [phone] | | [facility] | | [address] | | | - LABORATORY | | [...] [address] | [place] | [phone] | | [facility] | | [address] | | | - LABORATORY | | [...] mL/min/1.73m2 | [facility] | | | Japanese | RATE,ESTIMATED | | MEDICAL | | | | mL/min/1.21a0Joet than | | CENTER - | | [...] + | [facility] | [address] | [place] | [phone] | | [facility] | | [address] | | | - LABORATORY | | [...] + | [facility] [facility] | [address] | [place] | [phone] | | [facility] | | [address] | | | - LABORATORY | | [...] + | [facility] | [address] | [place] | [phone] | | [facility] | | [address] | | | - LABORATORY | | [...] ST. | [address] | [place] | [phone] | | [facility] | | [address] | | | - LABORATORY | | [...] | | | | BINU MACK MD ([id number]) | | | | | | on [...] 05/08/2017 | PROVATION | | 9:20 AMMRN: [id number] #: [id number] of : | | | 3Admit Type: InpatientAge: 81Room: [facility] 02Gender: MaleNote | | | Status: FinalizedAttending MD: ABDIRASHID Miltonrocedure: | | | Upper GI endoscopyIndications: Gastrointestinal | | | bleeding of unknown originProviders: Peter Maciel MD, | | | Malka Dueñas RN, Amelie Cabral | | | Sukumar, Senior Data Mining Analyst, Miguel Galicia MD | | | (Anesthesia [...] | | | the anesthesiologist and the installer technician in the pre-procedure | | | [...] Scope In: 9:35:52 AMScope Out: 9:41:03 AM [facility]. | | | [facility], [address], [place] [address] | | | [phone] | | | - A small amount [...] |Scope Out: 9:41:03 AM | | | [facility], [address], [place] | | | [address] | | + + -+ + +---------+ + + | Performing | Address | City/State/[facility]ode | Phone Number | | [...] + | [facility] | [address] | [place] | [phone] | | [facility] | | [address] | | | - LABORATORY | | [...] | | | | | mmol/L | [facility] | | | | | [...] mL/min/1.73m2 | [facility] | | | [place] | RATE,ESTIMATED | | MEDICAL | | | | mL/min/1.39l7Vyck than | | CENTER - | | [...] [address] | [place] | [phone] | | [facility] | | [address] | | | - LABORATORY | | [...] + | [facility] | [address] | [place] | [phone] | | [facility] | | [address] | | | - LABORATORY | | [...] mL/min/1.73m2 | [facility] | | | Japanese | RATE,ESTIMATED | | MEDICAL | | | | mL/min/1.94j1Rafl than | | CENTER - | | [...] ST. | [address] | [place], [place] | [phone] | | [facility] | | [address] | | | - LABORATORY | | [...] [address] | [place] | [phone] | | [facility] | | [address] | | | - LABORATORY | | [...] + | [facility] | [address] | [place] | [phone] | | [facility] | | [address] | | | - LABORATORY | | [...] [address] | [place] | [phone] | | [facility] | | [address] | | | - LABORATORY | | [...] [address] | [place] | [phone] | | [facility] | | [address] | | | - LABORATORY | | [...] [address] | [place] | [phone] | | [facility] | | [address] | | | - LABORATORY | | [...] [address] | [place] | [phone] | | [facility] | | [address] | | | - LABORATORY | | [...] - 1.030 | [facility] | | | [place], | | | [facility] | | [...] [address] | [place] | [phone] | | [facility] | | [address] | | | - LABORATORY | | [...] | | | | BINU MACK MD ([id number]) | | | | | | on [...] | | | | | | [employer] | | | | | [...] ST. | [address] | [place], [place] | [phone] | | [facility] | | [address] | | | - LABORATORY | | | | + + + + + Raina INR (05/07/2017 11:35 AM PDT) + + [...] [address] | [place] | [phone] | | [facility] | | [address] | | | - LABORATORY | | [...] mL/min/1.73m2 | [facility] | | | Japanese | RATE,ESTIMATED | | MEDICAL | | | | mL/min/1.53g1Euhj than | | CENTER - | | [...] [address] | [place] | [phone] | | [facility] | | [address] | | | - LABORATORY | | [...] [address] | [place] | [phone] | | [facility] | | [address] | | | - LABORATORY | | [...] | | | | First dose on [facility] 05/09/17 at 2100 | | | | [...] PRN, Nausea, | | | Vomiting, Starting Sat05/14/17 at | | | 0903, Post-op/Phase II [...]
--- OUTSIDE RECORDS SUMMARY | ~2020-05-18 | XMS | Encounter Summary ---
Demographics + + + | Address | [address] | | | [place] [address] | + + + | Home Phone [...] | + + +---------+ + | Cassnadra Guthrie | ECON | Unknown | | + + +---------+ + Care Team Providers + +------+ + | Care Resolution Agent Name | Role | Phone | [...] | | CARDIOLOGY [address] [place] | | | | | [place], | [place], | | | | | [place] [address] | [place] [address] | | | | | [phone] | [phone] | | | | | | | [...] Dx); | | | | | [place] [address] | Pacemaker Dual | | | | | [phone] | Chamber, MRI | | | | | | compatible, 05/14/17 | | | | | | [facility] Marge; | | | | | | 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) | +--------+ + + + + | 01/05/ | Office | Cardiology | Emely Gabriel, | | | 2020 | Visit | | CITY DIRECTOR [address] | | | | | | [place] | | | | | | [address] | | | | | | | | +--------+ + + + + documented as of this encounter Visit Diagnoses Not on filedocumented in this encounter"
--- OUTSIDE RECORDS SUMMARY | ~2020-05-18 | XMS | Encounter Summary ---
Demographics + + + | Address | [address] | | | [place] [address] | + + + | Home Phone [...] | + + +---------+ + | Johnny iSddiqi Jr. | ECON | Unknown | | [...] Team Providers + +------+ + | Care Retail Marketing Executive Name | Role | Phone | + +------+ + PCP | Unavailable | + +------+ + Encounter Details +--------+ + + + + | Date | Type | Department | Care Team | Description | +--------+ + + + + | 03/26/ | Hospital | [facility] | Conversion | CORON ATHEROSCL | | 2004 | Encounter | CONVERSION DEP [address] | Transaction, | [address] | | | | [address] | Provider Unknown | | | | | [place], [place] | [phone] | | | | | [address] | | | | | | [phone] | | | +--------+ + + + [...] Dx); | | | | | [place] [address] | Pacemaker Dual | | | | | [phone] | Chamber, MRI | | | | | | compatible, 05/14/17 | | | | | | [facility] Rudiayesha; | | | | | | 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) | +--------+ + + + + | 01/05/ | Office | Cardiology | Emely Gabriel, | | | 2020 | Visit | | PRINTING SUPPLIES SALES REPRESENTATIVE [address] | | | | | | [place] | | | | | | [address] | | | | | | | | +--------+ + + + + documented as of this encounter Visit Diagnoses + + | Diagnosis | + + | Coronary atherosclerosis of ak[place] coronary artery | + + | Remote Device Interrogation - Primary Fitting and adjustment of cardiac pacemaker | + + | Pacemaker Dual Chamber, MRI compatible, 05/14/17 [facility] Bird Cardiac pacemaker | | in situ | + + | 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
--- OUTSIDE RECORDS SUMMARY | ~2020-05-18 | XMS | Encounter Summary ---
Demographics + + + | Address | [address] | | | [place] [address] | + + + | Home Phone [...] Team Providers + +------+ + | Care Company Doctor Name | Role | Phone | + [...] + + | 05/14/ | Surgery | [facility] | Cruzito Bird, | CV EP PPM System | | 2016 | | MED CTR CV INTRA OP | MD [address] | Implant | | | | [address] | [address], | | | | | [place] | [place] [address] | | | | | [address] | [phone] | | | | | [phone] | | | +--------+---------+ + + + [...] Physician Discharge Summary Patient ID: Jacklyn Siddiqi [id number] 81 y.o. 1935 Admit date: 05/07/2017 Discharge [...] significantly so this was dis continued. The monorail charger operator recommended putting in a permanent pacemaker [...] normal Psychiatric: Appropriate affect and mood Disposition: Patient Instructions: Discharge Medications New Medications Details [...] Care Everywhere.Pacemaker Impla ntation, Discharge Instructions for (Thai)documented in this encounter Medications at Time of [...] Philippe MD - 06/04/2017 8:18 PM PDT [facility] HOSPITALIST PROGRESS NOTE Patient: Jacklyn Siddiqi : 1935: Age: 81 y.o. MedRec: [id number] PCP: Antonio Paulino MD Admission date: 05/07/2017 [...] as outlined above. Yodit Philippe 06/04/2017 20:18 [facility] Shawn Lewis, [facility] Film Examiner - 05/16/2017 9:29 AM PDTFormatting of this [...] am: INR 4. Warfarin education received NO- sea captain. 5. Pharmacist to follow daily Warfarin Dosing Nomogram Warfarin Dosing Expectations Per P&T-approved Electronically signed by: Shawn Mercedes, Lock Stitch Channeler 05/16/2017 9:29 Michael Giang MD - 05/16/2017 [...] Cardiovascular Palp/Percussion: PMI in 5th [address] [facility]; no lifts, thrills, palp S3 or S4. [...] He is in a class IIo f [place] Heart Association functional class. There is mild [...] made to ensure accuracy; however, inadvertent computerized virology teacher errors may be pre sent. Electronically signed by: Cruzito Bird MD 05/16/2017 7:18 Susan Diaz MD - 05/15/2017 7:43 PM PDT [facility] HOSPITALIST PROGRESS NOTE Patient: Jacklyn Siddiqi : 1935: Age: 81 y.o. MedRec: [id number] PCP: Antonio Paulino MD Admission date: 05/07/2017 [...] ou tlined above. Susan Vides 05/15/2017 19:43 [facility] Jessica Rivas, PharmD - 05/15/2017 7:41 AM [...] am: INR 4. Warfarin education received NO- sea captain. 5. Pharmacist to follow daily Warfarin [...] DOPamine Stopped (05/12/17 0745) norepinephrine Stopped (05/11/17 6935) OBJECTIVE: PHYSICAL EXAM Latest VS: BP 135/43 [...] Sinus rhythm Confirmed by FREDERICK CHARLTON, BINU ([id number]) on 05/15/2017 5:56:04 AM ECG 12 lead [...] Sinus rhythm Confirmed by BINU MACK MD ([id number]) on 05/15/2017 5:57:23 AM CBC no Differential [...] He is in a class IIo f [place] Heart Association functional class. There is mild [...] made to ensure accuracy; however, inadvertent computerized virology teacher errors may be pre sent. Electronically signed by: Cruzito Bird MD 05/15/2017 6:36 Susan Diaz MD - 05/14/2017 8:48 PM PDT [facility] HOSPITALIST PROGRESS NOTE Patient: Jacklyn Siddiqi : 1935: Age: 81 y.o. MedRec: [id number] PCP: Antonio Paulino MD Admission date: 05/07/2017 [...] ou tlined above. Susan Vides 05/14/2017 20:48 [facility] Jessica Rivas PharmD - 05/14/2017 4:08 PM [...] am: INR 4. Warfarin education received NO- sea captain. 5. Pharmacist to follow daily Warfarin [...] treatment were discussed with the patient in [facility]. The patient decides to proceed with the procedure. 2. Resume Coumadin after procedure today. 3. Start amiodarone oral loading today to treat A. fib with RVR. Portions of this report were transcribed using voice recognition software. Every effort wa s made to ensure accuracy; however, inadvertent computerized virology teacher errors may be pre sent. Electronically signed by: Cruzito Bird MD 05/14/2017 6:25 row, Yodit Ramsay MD - 05/13/2017 7:23 AM PDTForm atting of this note might be different from the original. [facility] HOSPITALIST PROGRESS NOTE Patient: Jacklyn Siddiqi : 1935: Age: 81 y.o. MedRec: [id number] PCP: Antonio Paulino MD Admission date: 05/07/2017 [...] has lengthened Confirmed by FREDERICK CHARLTON, BINU ([id number]) on 05/13/2017 6:24:02 AM Culture, Blood Result [...] arthroplasty changes. Multiple lead wires overlie the kbyio-ff-ylia. Overall unchanged aeration of the lungs with [...] apnea) Patient was tested (positive) at the [facility], w as provided with CPAP, slept [...] awake and requires oxygen when a sleep. B-HOME RESTORATION SERVICE SUPERVISOR 488 on arrival. Echo 02/2017 showed EF [...] Pulmonary HTN Mild to severe by echo [id number]. Never smoked tobacco and no documente d [...] associated falls, on e occurring at the [facility] the day of admission and one [...] as outlined above. Yodit Philippe 05/13/2017 7:23 [facility] row, Yodit Ramsay MD - 0 05/12/2017 10:27 AM PDT [facility] HOSPITALIST PROGRESS NOTE Patient: Jacklyn Siddiqi : 1935: Age: 81 y.o. MedRec: [id number] PCP: Antonio Paulino MD Admission date: 05/07/2017 [...] arthroplasty changes. Multiple lead wires overlie the tguyn-ge-edds. Overall unchanged aeration of the lungs with [...] as outlined above. Yodit Philippe 05/12/2017 10:27 [facility] row, Yodit Ramsay MD - 0 05/11/2017 2:21 PM PDT [facility] HOSPITALIST PROGRESS NOTE Patient: Jacklyn Siddiqi : 1935: Age: 81 y.o. MedRec: [id number] PCP: Antonio Paulino MD Admission date: 05/07/2017 [...] with rate 70-80 on dopamine 5 mcg/min. [place] systolic valve cli ck at [facility]. Respiratory: [...] arthroplasty changes. Multiple lead wires overlie the oghtc-bz-odcb. Overall unchanged aeration of the lungs with [...] as outlined above. Yodit Philippe 05/11/2017 14:21 [facility] hitney Bernard R N - 05/10/2017 7:34 [...] 05/10/2017 7:03 PM PDT HOSPITALIST progress NOTE [facility] [place] 05/10/2017 Rounding Physician: Yodit Philippe MD Patient Name: Jacklyn Siddiqi : 1935 Medical Record: [id number] Primary Hospital Problem: Atrial fibrillation with RVR [...] made to ensure accuracy; however, inadvertent computerized virology teacher errors and typos m ay be present Electronically signed by: Yodit Philippe MD, DATE/TIME: 05/10/2017 19:03 [facility] HOSPITALIST TEAM arTania walton RN - 05/10/2017 4:33 PM PDTReport to Whitney, Patient in bed resting. row, Yodit Ramsay MD - 05/10/2017 3:59 PM PDTForma tting of this note might be different from the original. [facility] HOSPITALIST PROGRESS NOTE Patient: Jacklyn Siddiqi : 1935: Age: 81 y.o. MedRec: [id number] PCP: Antonio Paulino MD Admission date: 05/07/2017 [...] Atrial fibrillation Confirmed by BINU MACK MD ([id number]) on 05/10/2017 5:50:22 AM No results found. [...] as outlined above. Yodit Philippe 05/10/2017 15:59 [facility] Tania House RN - 05/10/2017 2:15 PM [...] to commode and one pers on assist. assignment desk assistant shows Sinus Tach with BBB. Patient on RA with sats 100%Electroni cece signed by Tania Cervantes RN at 05/10/2017 12:54 PM ELSYCrradha, Yodit Ramsay MD - 05/09/2017 8:11 PM PDT [facility] HOSPITALIST PROGRESS NOTE Patient: Jacklyn Siddiqi : 1935: Age: 81 y.o. MedRec: [id number] PCP: Antonio Paulino MD Admission date: 05/07/2017 [...] as outlined above. Yodit Philippe 06/04/2017 20:12 [facility] ancy Arechiga RN - 0 05/09/2017 1:59 PM PDTEvaluated pt for PICC line, upon review of chart placed midline 4 fren ch in left cephalic. Pt Needing IV access for blood draw and occasional IVP medication.Barbara ctronically signed by Nancy Arechiga RN at 05/09/2017 2:01 PM PDTCrow, Yodit Ramsay MD - 05/08 8:15 PM PDT [facility] HOSPITALIST PROGRESS NOTE Patient: Jacklyn Siddiqi : 1935: Age: 81 y.o. MedRec: [id number] PCP: Antonio Paulino MD Admission date: 05/07/2017 [...] as outlined above. Yodit Philippe 06/04/2017 20:15 [facility] Mary Vargas RN - 05/08/2017 2:57 PM [...] and RT notified. O2 2 L via HOME RESTORATION SERVICE SUPERVISOR applied. O2 sat increased to 91%. Maintained [...] name, strength, and direction x MAR from facility: [facility] Starr Vaccines up to date? Yes No [...] performed and electronically signed by Isa Kaufman, Cellophane Wrapping Examiner 16:14 Reviewed by: Dolly Rizzo, PharmD 05/07/2017 [...] Ramsay MD - 05/07/2017 2:14 PM PDT [facility] HISTORY AND PHYSICAL Pt. Name/Age/: Jacklyn [...] cirrhosis (HCC) 2004 CT scan 2003 at [facility] CAD [...] signed by: Yodit Philippe MD 05/07/2017 14:14 [facility] documented in this enc ounter Procedure [...] obtained, the patient was taken to the vp lab. 1 g of cefaz jamel was given [...] pulled through into the pocket. A 6 [place] sheath was p laced over the guidewire and the core was removed. The additional guidewires were inserted through the sheath. The sheath was then removed. The guidewires were secured by hemostat, leaving one guidewire to be utilized for placement of an 8 [place] safe sheath. A safe sheat h core [...] same technique as mentioned above, another 8 [place] safe sheath was utilized to i ntroduce [...] #: LPA 1200 M, serial #: [id number]. C. Ventricular lead: [place], length 52 cm, model #: LPA 1200M, serial #: [id number]. PACEMAKER TESTING: A. Atrial lead: Sensing 2.4 [...] obstructive sleep apnea. He was admitted to [facility] on 05/07/2017 for Atrial fibrillation with [...] with Anesthesia; Surgeon: Peter Maciel MD; Location: [facility] MEDICAL PROCED [facility]RE [facility] FAMILY [...] INFUSIONS: DOPamine Stopped (05/12/17 0745) norepinephrine Stopped (05/11/17) ALLERGIES Allergies Allergen Reactions Latex Rash REVIEW [...] developed, well nourished, well groomed, no ac ute mountain distress Cardiovascular NYHA Class: II- Symptoms with moderate exertion Palp/Percussion: PMI in 5th [address] [facility]; no lifts, thrills, palp S3 or S4. [...] has lengthened Confirmed by BINU MACK MD ([id number]) on 05/13/2017 6:24:02 AM Culture, Blood Collection [...] He is in a class II of [place] Heart Association functional class. There is fluid [...] patient. Electronically signed by: Cruzito Bird MD [facility] 05/13/2017 7:03 Portions of this chart may have been created with [employer] voice recognition software. Occasi onal wrong-word or sound-alike substitutions may have occurred due to the inherent carter itations of voice recognition software. Please read the chart carefully and recognize, using context, where these substitutions have occurred. Amelie Alvarez RN - 05/08/2017 11:53 AM PDTAssociated O rder(s): IP CONSULT TO WOUND OSTOMY NURSEMrJosefina Siddiqi is a [facility] patient who is [facility] at [facility], that has the [place] 2 [...] Pack RN CWON Inpatient Wound Care Ext [phone] docume nted in this encounter ED Notes [...] cirrhosis (HCC) 2004 CT scan 2003 at [facility] CAD [...] UA, POC Negative Negative, 100 mg/dL Specific [place], UA, POC 1.025 1.001 - 1.030 Blood, [...] TEXT Not Confirmed Raphael Karimi MD 05/07/17 5554 Raphael Karimi MD 05/07/17 124 documented in [...] tations include mobility, functional transfers, ADL deficits. Jacklny will benefit from continued therapeutic intervention to [...] Kwok MD - 05/16/2017 2:20 PM PDT [facility] FACILITY TRANSFER ORDERS Patient Name: Jacklyn Siddiqi Patient : 1935 Gender: male Date of Admission: 05/07/2017 Date of Discharge: 05/16/2017 Admitting Provider: Yodit Philippe MD Discharging Provider: Susan Vides MD Consultants: Dr Nettles [facility]: CODE STATUS: [x] Attempt CPR [] Do not resuscitate If patient is pulseless and not breathing, RN/HIGH SCHOOL ASSISTANT PRINCIPAL may pronounce . Advanced Directives included: [] [...] Reactions Latex Rash Diet: [x] As tolerated GLASS HANDLER may upgrade or downgrade diet as condition [...] Whole [] Thin Liquids [] Cut-up [] [place] Thick [] Advanced Chopped [] Honey Thickened [] Chopped [] Advanced Ground [] 1:1 feedings [] Ground/Pureed [] Other: Tube Feedings: [] PEG [] GT [] JT [] NGT [] Formula type: (Television News Photographer may change/substitute if indicated). [] Continuous Rate: [...] & Management for: restrict ed limb [] GLASS HANDLER Evaluation &Management for: [] Other: Wound/Skin Care: [...] Susan SAWYER MD, certify that post hospital longterm care is medically nece ssary on a continuing basis for any of the conditions for which he/she received care during this hospitalization. Check one: [x] Skilled [] Intermediate Additional Orders/Instructions Physician's signature: Susan Jarvis MD05/16/2017 14:20 [facility] USE ONLY: [] Admitting [...] Therapy Discharge Recommendations are: Recommended discharge disposition: longterm facility Post discharge physical therapy recommendation: will [...] for assist for safety Bed-Chair, Level of [place]: contact guard assist, set up required, verbal cues requir ed Chair-Bed, Level of [place]: contact guard assist, set up required, verbal cues requir ed Vld-Pjsdr-Dvl, Assistive Device: 2 wheeled walker (FWW) Sit-Stand, Level of [place]: contact guard assist, verbal cues required Stand-Sit, Level of [place]: contact guard assist, verbal cues required Fvl-Efnph-Cak, Assistive Device: 2 wheeled walker (FWW) Safety Issues: weight-shifting ability decreased Impairments: pain, strength decreased Bed Mobility increased time and need for frequent redirection Assistive Device: bed rails Supine to Sit, Level of [place]: contact guard assist Sit to Supine, Level of [place]: (NT, pt left sitting in bedside chair) [...] STG Status continued at 05/16/2017 1155 STG [place] Level modified independent, supervised at 05/09/2017 1700 [...] notes, and med list to her. TN# [id number]. Manually faxed the completed PASRR to SNF. Pkt started and placed in ghost chart. Electronically signed by: Ana Dietrich RN 05/16/2017 10:27 11:14 Left message with Elkin, at [facility], letting her know that patient will be d ischarged today and would be ready this afternoon sometime. Requested a return call with pic k up time. Elkin returned call with 1430 garbage pick up man time. Let bedside RN know. Left message with Jacklyn , letting him know that his dad will be taken to the SNF today. Pkt completed with original completed PASRR, AVS, and Trazadone script. Given to team driver. Fa xed SNF transfer orders to [facility] with call to Elkin.Electronically signed by: Sangita [...] expiratory wheezes/fine crackles. lan of Care - [facility] Nanda gandara RN - 05/16/2017 5:04 AM [...] afternoon and let him know that the [facility] would only be a short term rehab not custodial stay and that he would have to pay for the transpor t there, since he is non-service connected, per SAMEER [place], whom this CM called to confirm this above information. Jacklyn Joiner stated that his father will not go back to [facility], so reassured him yahaira t the sr. merchandise planner at [facility] would help find a longwall headgate operator place for him since he will [...] Therapy Discharge Recommendations are: Recommended discharge disposition: longterm facility Post discharge physical therapy recommendation: will [...] and attending to task Bed-Chair, Level of [place]: contact guard assist, set up required, verbal cues requir ed Chair-Bed, Level of [place]: contact guard assist, set up required, verbal cues requir ed Zzk-Ookcu-Dim, Assistive Device: 2 wheeled walker (FWW) Sit-Stand, Level of [place]: contact guard assist, verbal cues required Stand-Sit, Level of [place]: contact guard assist, verbal cues required Bfu-Uboth-Dgf, Assistive Device: 2 wheeled walker (FWW) Safety Issues: weight-shifting ability decreased Impairments: pain, strength decreased Bed Mobility increased time and need for frequent redirection Assistive Device: bed rails Supine to Sit, Level of [place]: contact guard assist Sit to Supine, Level of [place]: (NT, pt left sitting in bedside chair) [...] STG Status continued at 05/15/2017 1315 STG [place] Level modified independent, supervised at 05/09/2017 1700 [...] forward to go to a rehab facil [facility] in the future. lan of Care - aMria Antonia Bullard RRT - 05/15/2017 8:43 AM [...] ssistance with ambulation and transfers. lan of [facility] - Rob Dietrich RN - 05/14/2017 6:04 PM PDTProblem: Discharge Planning Goal: Patient will be discharged in a safe manner This CM met with patient per his request about his discharge plan. Let him know that [facility] has accepted him and he [...] he did not even know that his formerly [facility] er was in the hospital again. This CM was trying to get some help as to where patient was going to go after his rehab, si nce patient stated that his other son, Jacklyn Siddiqi Jr, is currently moving out all his belo ngings out of [facility] in [place], since he is too high level of [...] [facility] any bed for him. Let patient know that this will have to be done in the AM since they are already closed today. CM will need to call the [facility] in AM to see if patient is eligible for transfer to the [facility].Electronically signed by: Ana Dietrich RN 05/14/2017 18:04 [...] Therapy Discharge Recommendations are: Recommended discharge disposition: longterm facility Post discharge physical therapy recommendation: will [...] treatment from his children Bed-Chair, Level of [place]: contact guard assist, set up required, verbal cues requir ed Vdg-Oqcjw-Sbs, Assistive Device: 2 wheeled walker (FWW) Sit-Stand, Level of [place]: contact guard assist, verbal cues required Stand-Sit, Level of [place]: contact guard assist, verbal cues required Blc-Ninrj-Fcb, Assistive Device: 2 wheeled walker (FWW) Safety Issues: weight-shifting ability decreased Impairments: pain, strength decreased Bed Mobility increased time and need for frequent redirection Assistive Device: bed rails Supine to Sit, Level of [place]: contact guard assist Sit to Supine, Level of [place]: (NT, pt left sitting in bedside chair) [...] STG Status continued at 05/14/2017 1600 STG [place] Level modified independent, supervised at 05/09/2017 1700 [...] re questing to use commode. OT and LAYOUT ARTIST assisted patient with functional t/f and limited [...] bed rails Supine to Sit, Level of [place]: contact guard assist Sit to Supine, Level of [place]: contact guard assist Transfers Sit-Stand, Level of [place]: stand by assist, contact guard assist Stand-Sit, Level of [place]: stand by assist, contact guard assist Cvb-Pbetl-Xif, Assistive Device: 2 wheeled walker (FWW) Toilet, Level of [place]: contact guard assist, stand by assist Toilet, Assistive Device: 2 wheeled walker (FWW) Impairments: pain, strength decreased OT Goal Review Date Flowsheet Row Most Recent Value STG Review Date 05/16/17 at 05/09/2017 1604 LB Dressing Goal Flowsheet Row Most Recent Value STG Status new at 05/14/2017 1045 STG [place] Level modified independent at 05/14/2017 1045 Toilet Transfer Goal Flowsheet Row Most Recent Value STG Status new at 05/14/2017 1045 STG [place] Level supervised at 05/14/2017 1045 STG Assistive [...] Spiritual Evaluation: Patient is a "Bible Believing Jehovah'S Witness" loves to pray and read the "Word." Spiritual Intervention: Listened to the patient's concerns about the upcoming procedure. Active Listening, past oral presence, and prayer was offered. Spiritual Outcomes: Patient appreciates seismic plotter's prayer, seems less apprehensive. Spiritual Goals / Follow-up: Will see the patient as requested. If there are any other spiritual care issues that arise, please contact seismic plotter. lan of Care - Kristina Ayers, VALARIE [...] Therapy Discharge Recommendations are: Recommended discharge disposition: longterm facility Post discharge physical therapy recommendation: will benefit from structured setting, ongo ing low intensity therapy Equipment Recommendations: 2 wheeled walker (FWW) Planned Interventions: balance training, gait training, strengthening Recommended Frequency: daily Patient Status/Goals: Reflects last filed data and may be from multiple contributors. Gait side-stepping at bedside Level of [place]: 2 person assist required Assistive Device: 2 wheeled walker (FWW) Transfers pt weak and with dizziness, need for CGA for safety due to symptoms Sit-Stand, Level of [place]: stand by assist, contact guard assist Stand-Sit, Level of [place]: stand by assist, contact guard assist Yes-Idbpy-Euy, Assistive Device: 2 wheeled walker (FWW) Safety Issues: weight-shifting ability decreased Impairments: pain, strength decreased Bed Mobility increased time d/t fatigue Assistive Device: none Supine to Sit, Level of [place]: contact guard assist Sit to Supine, Level of [place]: contact guard assist Functional Endurance impaired - SOB with limited activity [facility] BASIC MOBILITY [facility] BASIC MOBILITY Turning over in bed: a [...] steps with a railing: dependent/unable TOTAL - [facility] BASIC MOBILITY : 14 Unable / dependent = 1 A lot / modA = 2 A little / Guillermo = 3 None / independent = 4 Completed the [facility] Activity Measure for Post Acute Care (AM-PAC) "6 Clicks" [facility] Mobility Inpatient Short Form. This version of [...] STG Status continued at 05/12/2017 1203 STG [place] Level modified independent, supervised at 05/09/2017 1700 [...] Improving This CM called Elkin at [facility], p# [phone], and she confirmed that she has a [...] pain. lan of Care - Donato Mcqueen, BLUNGER LOADER - 05/12/2017 6:09 PM PDTProblem: Patient Care [...] sleeping. lan of Care - Javier Arana, SURGICAL SERVICES DIRECTOR - 05/12/2017 11:50 AM PDT Problem: Patient [...] unable to step in place Level of [place]: 2 person assist required Assistive Device: 2 wheeled walker (FWW) Distance (feet): 15, 15 Transfers pt very weak with low BP, CGA to Min Assist for sit<>stand Sit-Stand, Level of [place]: stand by assist, contact guard assist Stand-Sit, Level of [place]: stand by assist, contact guard assist Awu-Mwdhy-Fgz, Assistive Device: 2 wheeled walker (FWW) Safety Issues: weight-shifting ability decreased Impairments: pain, strength decreased Bed Mobility NT; pt up in chair on arrival requested to stay up in chair post tx Assistive Device: none Supine to Sit, Level of [place]: independent Sit to Supine, Level of [place]: independent Therapeutic Exercise pt c/o of pain [...] STG Status continued at 05/12/2017 1203 STG [place] Level modified independent, supervised at 05/09/2017 1700 [facility] Assistive Device 2 wheeled walker (FWW) at [...] 25-30 ml urine an hour. lan of [facility] - Nataly Rosenbaum, VALARIE - 05/12/2017 12:36 [...] % on 2liters/minute nasal cannula lan of [facility] - Lisa Sherwood RN - 05/11/2017 6:58 [...] tare. lan of Care - Donato Mcqueen, BLUNGER LOADER - 05/11/2017 4:33 PM PDTProblem: Patient Care [...] due to fear of falling Level of [place]: 2 person assist required Assistive Device: 2 wheeled walker (FWW) Distance (feet): 15, 15 Stairs unable Bed Mobility Assistive Device: none Supine to Sit, Level of [place]: independent Sit to Supine, Level of [place]: independent Therapeutic Exercise Seated exercises: bilateral, long [...] STG Status new at 05/09/2017 1700 STG [place] Level modified independent, supervised at 05/09/2017 1700 [...] dressed w non adherent drsg. lan of [facility] - Sana, Sudhakar Ac, BLUNGER LOADER - 0 05/10/2017 4:23 AM PDTProblem: Patient [...] like me to try R [facility] in [place] [facility] [place]. I faxed a referral to both [facility] and placed the cover sheets and fax receipts in the ghost charts. I received a call fr adriane Granger from [facility] and she verified that she had received [...] due to fear of falling Level of [place]: 2 person assist required Assistive Device: 2 wheeled walker (FWW) Distance (feet): 15, 15 Stairs NT Bed Mobility Assistive Device: none Supine to Sit, Level of [place]: independent Sit to Supine, Level of [place]: independent Balance ongoing assessment needed Therapeutic Exercise [...] STG Status new at 05/09/2017 1700 STG [place] Level modified independent, supervised at 05/09/2017 1700 [...] Joanna Lock RN - 05/09/2017 6:30 AM [id number] (late entry) pt has remained in ST [...] lan o f Reena - Sudhakar Hood BLUNGER LOADER - 05/09/2017 1:56 AM PDTProblem: Patient Care [...] rapid heart rate lan of Care - Hi Martha hicks RN - 05/08/2017 6:27 PM [...] was contacted and he was transferred to [place] at 1136. At about 1445 his HR [...] PM PDTPlan of Care - Melinda Davis, NURSE STAFF [facility] - 05/08/2017 4:23 PM PDTProblem: Discharge Planning Goal: Patient will be discharged in a safe manner Outcome: Improving This dependency case manager spoke with patient's POA and son Jacklyn Siddiqi regarding patient's discharg e plan. Son states that he now lives at [facility]. He was [place] to [facility]. He has been living at [facility] about a month. Son states that [...] they do go on daily walks [facility]. Son states that he would appreciate case management to follow up [facility] the [facility] as well with him in coordinating a discharge back there. Son states that he is his transp ortation and will transport him back when stable. This CM called the RN at [facility] at [phone]. Rhianna states that there has been a [...] a time to come assess patient. If [facility] to their [facility], we may need to consider a SNF. [...] PM PDTPt's Telemetry reading HR 150's-200. This GEOLOGICAL MANAGER we nt over to assess pt. Who was lying in bed talking on the phone with a family member. He den ies chest pain, SOB and/or a fluttering feeling in his chest. SBP 108/58. Pt.'s RN is at [facility]. EKG ordered and Dr. Philippe contacted about elevated HR concerns. Pt. To be transferred over to the ICU for closer monitoring. Electronically signed by Mary Cantu RN at 04/20 2:07 PM PDTD-C Instructions Provation - Peter Maciel MD - 05/08/2017 9:20 AM PDT Discharge Instructions for Upper Endoscopy Patient: Jacklyn Siddiqi : 1935 Acct: [id number] Exam Date: Monday, May 08, 2017 Doctor: Peter Maciel MD The chances of difficulty following this procedure are minimal. The following instruction s will assist you in your recovery. 1. Do Not eat or drink anything for 1 hour. Try sips of water first. If tolerated, resu me your regular diet or one recommended by your physician. 2. Do not drive, operate bety Storypanda, make critical decisions, or do activities that [...] If unable to reach your physician, call [facility] Emergency Department at Ext. 2500 [...] 2019 | Monitor | | [address] | Interrogation | | | | | [place] [place], | (Primary Dx); | | | | | [place] [address] | Pacemaker Dual | | | | | [phone] | Chamber, MRI | | | | [...] | | | | | | St [place], [place] | | | | | | [address] | | | | | | | [...] | | | | PDT | RVR ([facility]) | results section. | | | | | Persistent atrial | | | | | | fibrillation ([facility]) | | + +--------+ + + + [...] | | | ?MRN: | | | [id number] | | | [id number] | | | his | | | [...] | | | ent/cd | | | [id number] | | | -3088- | | | [...] | | | St. | | | Levasy | | | y H. | | [...] | | | St. | | | Levasy | | | y H. | | [...] | | | St. | | | Levasy | | | y H. | | [...] | | | St. | | | Levasy | | | y | | | [...] [address] | [place] | [phone] | | [facility] | | [address] | | | - LABORATORY | | [...] [address] | [place] | [phone] | | [facility] | | [address] | | | - LABORATORY | | [...] | mL/min/1.73m2 | [facility] | | | [place] | RATE,ESTIMATED | | MEDICAL | | | | mL/min/1.60t8Glqi than | | CENTER - | | [...] + | [facility] | [address] | [place] | [phone] | | [facility] | | [address] | | | - LABORATORY | | [...] + | [facility] | [address] | [place] | [phone] | | [facility] | | [address] | | | - LABORATORY | | [...] | | | | BINU MACK MD ([id number]) | | | | | | on [...] | | | | BINU MACK MD ([id number]) | | | | | | on [...] was | | | taken to the vp lab. 1 g of cefazolin was given intravenously. | | | Patient was hooked up to EKG, pulse oximetry and blood pressure | | | monitoring. All parameters were kept stable during procedure. The | | | [place] pacemaker public service representative was present in the operating [...] the | | | pocket. A 6 [place] sheath was placed over the guidewire and the core | | | was removed. The additional guidewires were inserted through the | | | sheath. The sheath was then removed. The guidewires were secured | | | by hemostat, leaving one guidewire to be utilized for placement of an | | | 8 [place] safe sheath. A safe sheath core and [...] same technique as mentioned above, another 8 [place] safe sheath | | | was utilized [...] #: LPA 1200 M, serial #: [id number]. C. | | | Ventricular lead: [place], length 52 cm, model #: LPA 1200M, serial | | | #: [id number]. PACEMAKER TESTING: A. Atrial lead: Sensing 2.4 [...] #: PM 2272, serial #: | | [id number]. | | | | | |B. Atrial lead: [place], length 46 cm, model #: LPA 1200 M, | | |serial #: [id number]. | | | | | |C. Ventricular lead: [place], length 52 cm, model #: LPA 1200M, | | |serial #: [id number]. | | | | | |PACEMAKER TESTING: [...] obtained, the patient was taken to the vp lab. | | 1 g of cefazolin was given intravenously. Patient was hooked up to EKG, pulse oximetry | | and blood pressure monitoring. All parameters were kept stable during procedure. The | | [place] pacemaker public service representative was present in the operating [...] into the pocket. A 6 | | [place] sheath was placed over the guidewire and the core was removed. The additional | | guidewires were inserted through the sheath. The sheath was then removed. The | | guidewires were secured by hemostat, leaving one guidewire to be utilized for placement | | of an 8 [place] safe sheath. A safe sheath core and [...] as mentioned | | above, another 8 [place] safe sheath was utilized to introduce an [...] #: LPA 1200 M, serial #: [id number]. | | Ventricular lead: [place], length 52 cm, model #: LPA 1200M, serial #: [id number] | | [id number].PACEMAKER TESTING: A. Atrial lead: Sensing 2.4 mV, [...] + | [facility] | [address] | [place] | [phone] | | [facility] | | [address] | | | - LABORATORY | | [...] [place] | | | | | | [address] | | | | + + + + + + + + | Specimen | + + | Blood | + + + + + + + | Performing | Address | City/State/Zipcode | Phone Number | | Organization | | | | + + + + + | [facility] | [address] | [place] [address] | [phone] | + + + + + Ferritin [...] [address] | [place] | [phone] | | [facility] | | [address] | | | - LABORATORY | | [...] [address] | [place] | [phone] | | [facility] | | [address] | | | - LABORATORY | | [...] [place] | | | | | | [address] | | | | + + + + + + + + | Specimen | + + | Blood | + + + + + + + | Performing | Address | City/State/Zipcode | Phone Number | | Organization | | | | + + + + + | [facility] | [address] | [place] [address] | [phone] | + + + + + ECHO [...] Number 457 Patient Number | | | [id number] Date of Study 05/13/2017 Visit Number | | | [id number] Referring Physician | | | CRUZITO BIRD MD Number | | | MARGE VICFRANTZ Date of | | | 1935 Dehydrator Operator TRELL LEWIS RDCS Age | | | 81 year(s) Interpreting | | | MARGE FLOR | | | Clinical Services Assistant CRUZITO BIRD MD Gender | | | Male Nurse | | | Stress Material Spreader Procedure Type of Study TTE procedure: ECHO [...] | 51.23 ml | | | EF Zzdfzqeaf67% Left Ventricle Diastolic Dimension: 4.23 | | [...] Volume: 51.23 ml | | | EF Avrqbbbgz27% | | | | | | Left [...] Room Number 457 Patient | | Number [id number] Date of Study 05/13/2017 Visit Number [id number] | | Referring Physician CRUZITO BIRD MD Number | | MARGE FLOR Date of 1935 | | Dehydrator Operator TRELL JOSHUA RODRIGUEZ Age 81 year(s) Interpreting | | MARGE FLOR Clinical Services Assistant CRUZITO | | MD MARGE Gender Male [...] LA Volume: 51.23 ml EF | | Cvepefjhr17% Left Ventricle Diastolic Dimension: 4.23 cm Systolic [...] LA Volume: 51.23 ml | | EF Wjroegiam21% | | | | Left Ventricle | [...] | Segmented | | K/uL | [facility] | | | Neutrophils | | | [...] | | ia | | | [facility] | | | | | | MEDICAL | | | | | | CENTER - | | | | | | LABORATORY | | + + + + + + + + | Specimen | + + | Blood | + + + + + + + | Performing | Address | City/State/[facility] | Phone Number | | Organization | | | | + + + + + | [facility] | [address] | [place] | [phone] | | [facility] | | [address] | | | - LABORATORY | | [...] ST. | [address] | [place], [place] | [phone] | | [facility] | | [address] | | | - LABORATORY | | [...] mL/min/1.73m2 | [facility] | | | [place] | RATE,ESTIMATED | | MEDICAL | | | | mL/min/1.86v3Hdvm than | | CENTER - | | [...] [address] | [place] | [phone] | | [facility] | | [address] | | | - LABORATORY | | [...] + | [facility] | [address] | [place] | [phone] | | [facility] | | [address] | | | - LABORATORY | | [...] mL/min/1.73m2 | [facility] | | | [place] | RATE,ESTIMATED | | MEDICAL | | | | mL/min/1.64k4Ykhp than | | CENTER - | | [...] Ratio | appended report. These | | [facility] | | | | results [...] + | [facility] | [address] | [place] | [phone] | | [facility] | | [address] | | | - LABORATORY | | [...] [address] | [place] | [phone] | | [facility] | | [address] | | | - LABORATORY | | [...] + | [facility] | [address] | [place] | [phone] | | [facility] | | [address] | | | - LABORATORY | | [...] ST. | [address] | [place], [place] | [phone] | | [facility] | | [address] | | | - LABORATORY | | [...] | | | | BINU MACK MD ([id number]) | | | | | | on [...] mL/min/1.73m2 | [facility] | | | [place] | RATE,ESTIMATED | | MEDICAL | | | | mL/min/1.06m2Pudn than | | CENTER - | | [...] + | [facility] | [address] | [place] | [phone] | | [facility] | | [address] | | | - LABORATORY | | [...] [address] | [place] | [phone] | | [facility] | | [address] | | | - LABORATORY | | [...] arthroplasty changes. Multiple lead wires overlie the cotnp-kk-tndq. | | | Overall unchanged aeration of [...] | | Multiple lead wires overlie the jayws-wp-jyik. | | | | Overall unchanged aeration [...] | | | | | | [facility] | | | | | | MEDICAL [...] [address] | [place] | [phone] | | [facility] | | [address] | | | - LABORATORY | | [...] | | | Cells | | | [facility] | | | | | | MEDICAL | | | | | | CENTER - | | | | | | LABORATORY | | + + + + + + | Red Blood | 3.58 (L) | 4.30 - 5.70 | [facility] | | | Cells | | M/uL | [facility] | | | | | [...] [address] | [place] | [phone] | | [facility] | | [address] | | | - LABORATORY | | [...] [address] | [place] | [phone] | | [facility] | | [address] | | | - LABORATORY | | [...] (H) | 7 - 18 mg/dL | [facility] | | | | | | [facility] | | | | | | MEDICAL | | | | | | CENTER - | | | | | | LABORATORY | | + + + + + + | Creatinine | 1.28 | 0.60 - 1.30 | [facility] | | | | | mg/dL | [facility] | | | | | | MEDICAL | | | | | | CENTER - | | | | | | LABORATORY | | + + + + + + | eGFR, | 54 (L)Comment: | >=60 | [facility] | | | non- | GLOMERULAR FILTRATION | mL/min/1.73m2 | [facility] | | | [place] | RATE,ESTIMATED | | MEDICAL | | | | mL/min/1.13w4Pwbx than | | CENTER - | | [...] + | [facility] | [address] | [place] | [phone] | | [facility] | | [address] | | | - LABORATORY | | [...] [address] | [place] | [phone] | | [facility] | | [address] | | | - LABORATORY | | [...] [address] | [place] | [phone] | | [facility] | | [address] | | | - LABORATORY | | [...] | | | | FREDERICK CHARLTON, BINU ([id number]) | | | | | | on [...] | | | | BINU MACK MD ([id number]) | | | | | | on [...] [address] | [place] | [phone] | | [facility] | | [address] | | | - LABORATORY | | [...] + | [facility] | [address] | [place] | [phone] | | [facility] | | [address] | | | - LABORATORY | | [...] [address] | [place] | [phone] | | [facility] | | [address] | | | - LABORATORY | | [...] mL/min/1.73m2 | [facility] | | | [place] | RATE,ESTIMATED | | MEDICAL | | | | mL/min/1.85r5Vdzv than | | CENTER - | | [...] [address] | [place] | [phone] | | [facility] | | [address] | | | - LABORATORY | | [...] + | [facility] [facility] | [address] | [place] | [phone] | | [facility] | | [address] | | | - LABORATORY | | [...] + | [facility] | [address] | [place] | [phone] | | [facility] | | [address] | | | - LABORATORY | | [...] ST. | [address] | [place] | [phone] | | [facility] | | [address] | | | - LABORATORY | | [...] | | | | BINU MACK MD ([id number]) | | | | | | on [...] 05/08/2017 | PROVATION | | 9:20 AMMRN: [id number] #: [id number] of : | | | 3Admit Type: InpatientAge: 81Room: [facility] 02Gender: MaleNote | | | Status: FinalizedAttending MD: ABDIRASHID Miltonrocedure: | | | Upper GI endoscopyIndications: Gastrointestinal | | | bleeding of unknown originProviders: Peter Maciel MD, | | | Malka Dueñas RN, Amelie Cabral | | | Sukumar, Material Spreader, Miguel Galicia MD | | | (Anesthesia [...] | | | the anesthesiologist and the career guidance technician in the pre-procedure | | | [...] Scope In: 9:35:52 AMScope Out: 9:41:03 AM [facility]. | | | [facility], [address] [facility], [place] [address] | | | [phone] | | | - A small amount [...] |Scope Out: 9:41:03 AM | | | [facility], [address], [place] | | | [address] | | + + -+ + +---------+ + + | Performing | Address | City/State/[facility] [place] [facility] Cent[facility]ode | Phone Number | | [...] + | [facility] | [address] | [place] | [phone] | | [facility] | | [address] | | | - LABORATORY | | [...] mL/min/1.73m2 | [facility] | | | [place] | RATE,ESTIMATED | | MEDICAL | | | | mL/min/1.65k1Ctux than | | CENTER - | | [...] [address] | [place] | [phone] | | [facility] | | [address] | | | - LABORATORY | | [...] + | [facility] | [address] | [place] | [phone] | | [facility] | | [address] | | | - LABORATORY | | [...] mL/min/1.73m2 | [facility] | | | [place] | RATE,ESTIMATED | | MEDICAL | | | | mL/min/1.91m6Uazi than | | CENTER - | | [...] ST. | [address] | [place], [place] | [phone] | | [facility] | | [address] | | | - LABORATORY | | [...] [address] | [place] | [phone] | | [facility] | | [address] | | | - LABORATORY | | [...] + | [facility] | [address] | [place] | [phone] | | [facility] | | [address] | | | - LABORATORY | | [...] [address] | [place] | [phone] | | [facility] | | [address] | | | - LABORATORY | | [...] [address] | [place] | [phone] | | [facility] | | [address] | | | - LABORATORY | | [...] [address] | [place] | [phone] | | [facility] | | [address] | | | - LABORATORY | | [...] [address] | [place] | [phone] | | [facility] | | [address] | | | - LABORATORY | | [...] - 1.030 | [facility] | | | [place], | | | [facility] | | [...] [address] | [place] | [phone] | | [facility] | | [address] | | | - LABORATORY | | [...] | | | | BINU MACK MD ([id number]) | | | | | | on [...] | | | | | | [employer] [place] [employer] | | | | | [...] ST. | [address] | [place], [place] | [phone] | | [facility] | | [address] | | | - LABORATORY | | [...] [address] | [place] | [phone] | | [facility] | | [address] | | | - LABORATORY | | [...] mL/min/1.73m2 | [facility] | | | [place] | RATE,ESTIMATED | | MEDICAL | | | | mL/min/1.29v0Zqyh than | | CENTER - | | [...] [address] | [place] | [phone] | | [facility] | | [address] | | | - LABORATORY | | [...] [address] | [place] | [phone] | | [facility] | | [address] | | | - LABORATORY | | [...] | | | | First dose on [facility] 05/09/17 at 2100 | | | | [...]
--- OUTSIDE RECORDS SUMMARY | ~2020-05-18 | XMS | Encounter Summary ---
Demographics + + + | Address | [address] | | | [place] [address] | + + + | Home Phone [...] Team Providers + +------+ + | Care Weatherization Crew Leader Name | Role | Phone | + +------+ + | Antonio Paulino MD | PCP | | + +------+ + Encounter Details +--------+ + + + + | Date | Type | Department | Care Team | Description | +--------+ + + + + | 04/15/ | Orders Only | [facility] | Benjamín Garces, | | | 2017 | | [facility] [place] | [address] | | | | | [address] | [place], | | | | | [place] | [place] [address] | | | | | [address] | [phone] | | | | | [phone] | | | +--------+ + + + [...] Dx); | | | | | [place] [address] | Pacemaker Dual | | | | | [phone] | Chamber, MRI | | | | | | compatible, 05/14/17 | | | | | | [facility] [place]; | | | | | | 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
--- OUTSIDE RECORDS SUMMARY | ~2020-05-18 | XMS | Encounter Summary ---
Demographics + + + | Address | [address] | | | [place] [address] | + + + | Home Phone [...] Team Providers + +------+ + | Care Orthotic Finish Grinding Technician Name | Role | Phone | + +------+ + PCP | Unavailable | + +------+ + Encounter Details +--------+ + + + + | Date | Type | Department | Care Team | Description | +--------+ + + + + | 11/13/ | Hospital | [facility] | Conversion | | | 2004 - | Encounter | [facility] | Transaction, | | | | | CARE FLOOR 4 888 | Provider Unknown | | | 11/22/ | | LEIGHA LAM | [phone] | | | 2004 | | [place], [place] | | | | | | [address] | Antonio Payne | | | | | [phone] | MD [address] | | | | | | [address] | | | | | | [place] [address] | | | | | | [phone] | | | | | | | [...] Interrogation | | | | | [place], | (Primary Dx); | | | | | [place] [address] | Pacemaker Dual | | | | | [phone] | Chamber, MRI | | | | [...] [place] | | | | | | [address] | | | | | | | | +--------+ + + + + documented as of this encounter Visit Diagnoses Not on filedocumented in this encounter"
--- OUTSIDE RECORDS SUMMARY | ~2020-05-18 | XMS | Encounter Summary ---
Demographics + + + | Address | [address] | | | [place] [address] | + + + | Home Phone [...] Team Providers + +------+ + | Care Government Guard Name | Role | Phone | + [...] + | 05/21/ | Clinical | [facility] | Cruzito iBrd, | Tachycardia-bradycar | | 2017 | Support | CARDIOLOGY [address] | [address] | pablo syndrome (HCC) | | | | [place], | [place], | (Primary Dx); | | | | [place] [address] | [place] [address] | Pacemaker Dual | | | | [phone] | [phone] | Chamber, MRI | | | | [...] uled an appointment with Dr Paulino at [facility] on Saturday05/27/17 at 10 AM. No labs [...] states he shou ld be at the DC and is upset he is missing his appointment with Dr Paulino because his facili ty dropped him off here instead. I ended up calling the DC for patient and scheduled an appo intment [...] Dx); | | | | | [place] [address] | Pacemaker Dual | | | | | [phone] | Chamber, MRI | | | | [...] [place] | | | | | | [address] | | | | | | | [...]
--- OUTSIDE RECORDS SUMMARY | ~2020-05-18 | XMS | Encounter Summary ---
Demographics + + + | Address | [address] | | | [place] [address] | + + + | Home Phone [...] Team Providers + +------+ + | Care Disaster Director Name | Role | Phone | [...] 2017 | | CARDIOLOGY [address] | CORRECTIONAL AGENCY DIRECTOR [address] | | | | | [place], | [place] | | | | | [place] [address] | [address] | | | | | [phone] | | | +--------+ + + + [...] number after 15 minutes. Left message on ASSIA to return call ..........................................Isabel Colbert RN on [...] 2019 | Monitor | | MD [address] [place] | Interrogation | | | | | 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
--- OUTSIDE RECORDS SUMMARY | ~2020-05-18 | XMS | Encounter Summary ---
Demographics + + + | Address | [address] | | | [place] [address] | + + + | Home Phone [...] Team Providers + +------+ + | Care Spool Tender Name | Role | Phone | [...] + + | 03/16/ | Hospital | [facility] | Cary Jain, | Acute on chronic | | 2016 - | Encounter | [facility] [address] | diastolic | | | | [place], | [place], [place] | (congestive) heart | | 03/21/ | | [place] [address] | [id number] | failure (HCC) | | 2015 | | [phone] | | (Primary Dx); | | | | | Sy Hopkins MD | Persistent atrial | | | | | [address] | fibrillation (HCC); | | | | | [place], [place] | H/O aortic valve | | | | | [id number] | replacement; Hard of | | | | | | hearing, | | | | | | unspecified | | | | | | laterality; CRUZITO | | | | | | (obstructive sleep | | | | | | apnea); Pulmonary | | | | | | HTN ([facility]); Venous | | | | | | stasis of both lower | | | | | | extremities; Atrial | | | | | | fibrillation with | | | | | | RVR ([facility]); | | | | | | Paroxysmal atrial | | | | | | fibrillation ([facility]); | | | | | | Acute renal failure, | | | | | | unspecified acute | | | | | | renal failure type | | | | | | ([facility]); Atrial | | | | | | fibrillation, | | | | | | unspecified type | | | | | | ([facility]); Coronary | | | | | | artery disease | | | | | | involving mohegan | | | | | | heart [...] failure | | | | | | ([facility]); Hard of | | | | | [...] of endocarditis who w as transferred from [facility] with shortness of breath and found to [...] diastolic CHF. He is being discharged to [facility] in [place] for skill fidelina g Code Status: Full Code Disposition: [facility] Discharge Condition: good Discharge Medications New Medications [...] signed by: Galen Davis MD, 03/21/2016 12:16 [facility] documented in this encounter Medications at Time [...] Interactions: fenofibrate, levothyroxine, amiodarone NON-valvular AFIB patients: [id number] score (max 9): 7 [x]CHF, [x]HTN, [x]Age > 75 (2), []DM, [x] prior CVA,VTE (2), [x]PA,PAD, []Age 64-74, []Fe male Recent Labs Lab [...] 2-3 for atrial fibrillation Patient transferred from [place] due to uncontrolled atrial fibrillation/flutter Amiodarone initiated 03/18 Plan: 1. Warfarin 6mg daily to start 03/21/16 2. Labs in AM: INR, Hgb, Hct 3. Pharmacist follow daily Warfarin Dosing Nomogram Warfarin Dosing Expectations Per P&T-approved Galen Preston MD - 03/20/2016 6:57 PM PDT . [facility]G Hospitalist Progress Note Johnny Siddiqi [...] as outlined above. Galen Davis 03/20/2016 18:58 [facility] Portions of this chart may have been created with [employer] voice recognition software. Occasi onal wrong-word or [...] 5mg on Sat and Managed by: TBD ([place] records requested by provider) Sensitizers: age, CHF Drug Interactions: fenofibrate, levothyroxine, amiodarone NON-valvular AFIB patients: [id number] score (max 9): 7 [x]CHF, [x]HTN, [x]Age > 75 (2), []DM, [x] prior CVA,VTE (2), [x]PA,PAD, []Age 64-74, []Fe male Recent Labs Lab [...] 2-3 for atrial fibrillation Patient transferred from [place] due to uncontrolled atrial fibrillation/flutter Amiodarone initiated 03/18 Plan: 1. Warfarin 3 mg x1 today. 2. Labs in AM: INR, Hgb, Hct 3. Pharmacist follow daily Warfarin Dosing Nomogram Warfarin Dosing Expectations Per P&T-approved Nancy Staley, PharmD - 03/19/2016 12:59 PM PDT . WARFARIN PER PHARMACY PROTOCOL: Subjective/Objective: Johnny Sdidiqi is a 80 y.o. male admitted on [...] Interactions: fenofibrate, levothyroxine, amiodarone NON-valvular AFIB patients: [id number] score (max 9): 7 [x]CHF, [x]HTN, [x]Age > 75 (2), []DM, [x] prior CVA,VTE (2), [x]PA,PAD, []Age 64-74, []Fe male Recent Labs 03/19/16 [...] 2-3 for atrial fibrillation Patient transferred from [place] due to uncontrolled atrial fibrillation/flutter Amiodarone initiated 03/18 Plan: 1. HOLD warfarin today 2. Pharmacist to dose tomorrow based in INR 3. Pharmacist follow daily Warfarin Dosing Nomogram Warfarin Dosing Expectations Per P&T-approved Sy Ibarra MD - 03/19/2016 8:45 AM PDT [facility] PMG Hospitalist Progress Note Johnny Siddiqi [...] as outlined above. Sy Hopkins 03/19/2016 8:45 [facility] Portions of this chart may have been created with [employer] voice recognition software. Occasi onal wrong-word or sound-alike substitutions may have occurred due to the inherent carter itations of voice recognition software. Please read the chart carefully and recognize, using context, where these substitutions have occurred arker, Sy Ac MD - 0 03/18/2016 8:50 AM PDT [facility] PMG Hospitalist Progress Note Johnny Siddiqi [...] as outlined above. Sy Hopkins 03/18/2016 8:50 [facility] Portions of this chart may have been created with [employer] voice recognition software. Occasi onal wrong-word or [...] Drug Interactions: fenofibrate, levothyroxine NON-valvular AFIB patients: [id number] score (max 9): 7 [x]CHF, [x]HTN, [x]Age > 75 (2), []DM, [x] prior CVA,VTE (2), [x]PA,PAD, []Age 64-74, []Fe male Recent Labs Labs 03/16 03/17 03/18 Hgb 12.2 11.3 11.8 Hct 37.2 35.8 37.6 Platelets 166 176 190 INR 2.87 3.09 3.41 Warfarin Dose 7 mg 5 mg Hold dose Assessment: The INR is 3.41 above the target range of 2-3 for atrial fibrillation Patient transferred from [facility] due to uncontrolled atrial fibrillation/flutter Plan: 1. [...] on Sun and Thurs Managed by: TBD ([place] records requested by provider) Sensitizers: age, CHF Drug Interactions: fenofibrate, levothyroxine NON-valvular AFIB patients: [id number] score (max 9): 7 [x]CHF, [x]HTN, [x]Age > 75 (2), []DM, [x] prior CVA,VTE (2), [x]PA,PAD, []Age 64-74, []Fe male Recent Labs Lab 03/17/16 0438 03/16/16 1306 CREA 1.49* 1.55* HGB 11.3* 12.2* HCT 35.8* 37.2* PLT 176 166 INR 3.09* 2.87* Date 03/16 03/17 Hgb 12.2 11.3 Hct 37.2 35.8 Platelets 166 176 INR 2.87 3.09 Warfarin Dose 7 mg 5 mg Assessment: The INR is within the target range of 2-3 for atrial fibrillation Patient transferred from [facility] due to uncontrolled atrial fibrillation/flutter Plan: 1. Will lower warfarin to 5mg po x1 2. Medication profile reviewed for potential drug-drug interactions 3. Labs in am: Hgb, Hct, INR 4. Warfarin education received No. ([facility]) 5. Pharmacist to follow daily Warfarin Dosing Nomogram Warfarin Dosing Expectations Per P&T-approved Electronically signed by: Nancy Rizzo, PHARMD 03/17/2016 11:19 Sy Ibarra MD - 03/17/2016 9:37 AM PDT [facility] PMG Hospitalist Progress Note Johnny Siddiqi [...] as outlined above. Sy Hopkins 03/17/2016 9:37 [facility] Portions of this chart may have been created with [employer] voice recognition software. Occasi onal wrong-word or [...] 5mg on Sat and Managed by: TBD ([place] records requested by provider) Sensitizers: age, CHF Drug Interactions: fenofibrate, levothyroxine NON-valvular AFIB patients: [id number] score (max 9): 7 [x]CHF, [x]HTN, [x]Age > 75 (2), []DM, [x] prior CVA,VTE (2), [x]PA,PAD, []Age 64-74, []Fe male Recent Labs Lab 03/16/16 1306 CREA 1.55* HGB 12.2* HCT 37.2* PLT 166 INR 2.87* Date 03/16 Hgb 12.2 Hct 37.2 Platelets 166 INR 2.87 Warfarin Dose 7 mg Assessment: The INR is within the target range of 2-3 for atrial fibrillation Patient transferred from [place] due to uncontrolled atrial fibrillation/flutter Plan: 1. Warfarin 7mg po x1 ordered on 03/16/16 2. Medication profile reviewed for potential drug-drug interactions 3. Labs in am: Hgb, Hct, INR 4. Warfarin education received No. ([facility]) 5. Pharmacist to follow daily Warfarin Dosing Nomogram Warfarin Dosing Expectations Per P&T-approved Electronically signed by: Diann Rhoades, PHARMD 03/16/2016 13:47 documented in th is encounter H&P Notes Cary Jain MD - 03/16/2016 1:07 PM PDTFormatting of this note might be different fr om the original. [facility] HISTORY AND PHYSICAL Pt. Name/Age/: Johnny Siddiqi 80 y.o. 1935 Date of admission: 03/16/2016 Admitting Physician: Cary Jain MD Primary Care Provider: Mauricio Goldberg MD CHIEF COMPLAINT: Shortness of breath HISTORY OF PRESENT ILLNESS: This is a 80 y.o. male who presented on transfer from [facility] where he h as been hospitalized [...] INR goal is 2-3, surgery done at [facility] Hypertension Liver cirrhosis (HCC) CVA (cerebral infarction) -2014 lacunar (not stated as new nor old) Dementia Alcoholic cirrhosis (HCC) 2003 CT scan 2003 at [facility] Endocarditis 2009 Enterococcus 6 weeks Amp + Gent PSA elevation 2008 Pt declined Bx then Peripheral vertigo 2012 BPPV left Venous ulcer (HCC) 2013 Leg Retinal detachment 2010 CAD (coronary artery disease) 2004 Had CABG to LAD (for 80-90% LAD) surgery done at [facility] Pulmonary HTN (HCC) Severe on [...] (Coumadin) yet, you need daily Protimes at [facility] in [place] starting Saturday and be sure the [place] Warfar[facility] iggy calls you every day [...] signed by: Cary Jain MD 03/16/2016 13:08 [facility] Portions of this chart may have been created with [employer] voice recognition software. Occasi onal wrong-word or [...] Goal Evaluation: Johnny is being transferred to [facility] in [place] for IP rehab. He was started on amiodarone while here and restarted on Warfarin with next PT/INR on March 23. He transferre d using a FWW. He is only needing O2 bled into his BIPAP while sleeping. He is on room air during the day. Family is aware of discharge plan. VSS. [facility] transporter here to t ion patient. NF Transfer - Me luis fernando, Galen Song MD - 03/21/2016 12:14 PM PDTFormatting of this note might be different fro m the original. [facility] TRANSFER ORDERS Patient Name: Johnny Siddiqi Patient : 1935 Gender: male Date of Admission: 03/16/2016 Date of Discharge: 03/21/2016 Admitting Provider: Cary Jain MD Discharging Provider: Galen Davis MD Consultants: cardiology PCP: [facility] transferring to: [facility] Provider after transfer: Per SNF CODE STATUS: [x] Attempt CPR [] Do not resuscitate If patient is pulseless and not breathing, RN/COSTING MANAGER may pronounce . Advanced Directives included: [] [...] for this patient. Diet: [] As tolerated LINE CLEANER may upgrade or downgrade diet as condition Indicates. [] RN may downgrade diet as indicated. Type: [x] Continue current diet of: Diet and Supplements Diet Diet general; fat and cholesterol modified; Effective Now Number of Occurrences: Until Specified Order Questions: Type Diet general Fat or cholesterol modifications fat and cholesterol modified [] Other: Consistency/Precautions: [] Whole [] Thin Liquids [] Cut-up [] [place] Thick [] Advanced Chopped [] Honey Thickened [] Chopped [] Advanced Ground [] 1:1 feedings [] Ground/Pureed [] Other: Tube Feedings: [] PEG [] GT [] JT [] NGT [] Formula type: (Handkerchief Cutter may change/substitute if indicated). [] Continuous Rate: [...] [x] OT Evaluation & Management for: [] LINE CLEANER Evaluation &Management for: [] Other: Wound/Skin Care: [...] Galen Davis MD, certify that post hospital intermediate care is medically nec essary on a continuing basis for any of the conditions for which he/she received care during this hospitalization. Check one: [x] Skilled [] Intermediate Additional Orders/Instructions: Physician's signature:___Galen Davis 03/21/2016 12:1 4 [facility] USE ONLY: [] Admitting orders verbally reviewed with Admitting Physician, modified where appropriate, and approved. Verbal Order from Date: Time: _ RN name: RN signature: [] Admitting orders reviewed, modified where appropriate, and approved. Physician's signature: Date: Time: lan of Care - Ana Villeda i, Vehicle Maintenance Supervisor-Clinical - 03/21/2016 11:59 AM PDTProblem: Discharge Planning [...] message since she is in flight to [place] today. This CM also called both of his sons, Kris and Rl and Kris was fine with the discharge plan to [facility] and he knew where this was located in [place]. Rl stated he was on his way back from [place] today and will be back in town [...] OK to arrange transport. Pkt completed for [facility] including the original completed PASRR, and the [...] with him and he with Deyvijane from [facility] and he has decid ed now to go there after she gave him some more information. Let patient and his RN know the transport time would be about 20-30 min away. Patient was also letting his son Chris know t hat he was going there today, although this CM let Chris, Cassandra, and Rl know about his di scharge to [facility] today. Cassandra, RN, [facility], who just arrived in [place], returned her ca ll and she was [...] he arrived. T/C to Elma at the [facility], letting her know that patient is being discharged to rehab at [facility] in [place] today. Electronically signed by: Ana Dietrich, TRUCK PACKER 03/21/2016 15:47 la n of [facility] - Julianna Loja OT - 03/21/2016 11:52 [...] 40 minutes Subjective: "I am going to [facility] real soon." Objective: Pt. was approached for OT, and states he had been up and walked with PT a bit ago. He repo rts he had been up to bathroom and had a BM and a sponge bath. Pt. reports he may be going to [facility] today. Spoke with floor care technician and she reports she is working with [...] from multiple contributors. ADLs Toileting, Level of Saline: minimum assist (75% patient effort), supervision required Toileting Assess/Train, Position: sitting, standing Toileting Assess/Train, Impairments: impaired balance IADLs Therapeutic Exercise Functional Endurance Cognitive Cognitive Tests Bed Mobility Transfers Toilet, Level of Saline: contact guard assist, verbal cues required Wheelchair [...] INR goal is 2-3, surgery done at [facility] Hypertension Liver cirrhosis (HCC) CVA (cerebral infarction) -2014 lacunar (not stated as new nor old) Dementia Alcoholic cirrhosis (HCC) 2003 CT scan 2003 at [facility] Endocarditis 2009 Enterococcus 6 weeks Amp + Gent PSA elevation 2008 Pt declined Bx then Peripheral vertigo 2012 BPPV left Venous ulcer (HCC) 2013 Leg Retinal detachment 2010 CAD (coronary artery disease) 2005 Had CABG to LAD (for 80-90% LAD) surgery done at [facility] Pulmonary HTN (HCC) Severe on [...] red here following 5 day stay at [facility]. he has a hx of CAD, aortic [...] be from multiple contributors. Gait Level of Saline : contact guard assist Assistive Device: cane (straight, single point) Distance (feet): 100 Impairments: impaired balance, strength decreased, postural control impaired Transfers Sit-Stand, Level of Saline: contact guard assist, verbal cues required Stand-Sit, Level of Saline: verbal cues required, contact guard assist [id number], Assistive Device: cane (straight, single point) Impairments: impaired balance, strength decreased, postural control impaired Bed Mobility Assistive Device: bed rails Supine to Sit, Level of Saline: minimum assist (75% patient effort) Sit to Supine, Level of Saline: minimum assist (75% patient effort) Impairments: impaired balance, strength decreased Balance Sitting Balance: Static: normal balance Sitting Balance: Dynamic: good balance Standing Balance: Static: (Good-) Standing Balance: Dynamic: (Fair+) ROM BLE functional Strength L LE Strength: 4/5 R LE Strength: 4/5 Trunk strength: 4-/5 STG GOALS Bed Mobility Goal, Activity Type: all bed mobility activities Saline Level: modified independence Assistive Device: bed rails Time to Achieve: 5 - 7 days Goal Status: new, progressing toward goal Transfer Training Goal, Activity Type: sit to stand/stand to sit Saline Level: modified independence Assistive Device: cane (straight, single point) Time to Achieve: 5 - 7 days Goal Status: new, progressing toward goal Gait Training Goal, Saline Level: modified independence Assistive Device: cane (straight, [...] activity tolerance following prolonged hospitalization between [facility]. He was able to perform transfers and [...] stable on 1 lpm o2. lan of [facility] - Lynnette Gallego RN - 03/21/2016 5:01 [...] with FWW to void. SBA. lan of [facility] - Jacqueline Neal OT - 03/20/2016 5:37 [...] INR goal is 2-3, surgery done at [facility] Hypertension Liver cirrhosis (HCC) CVA (cerebral infarction) 3-2014 lacunar (not stated as new nor old) Dementia Alcoholic cirrhosis (HCC) 2004 CT scan 2004 at [facility] Endocarditis 2009 Enterococcus 6 weeks Amp + Gent PSA elevation 2009 Pt declined Bx then Peripheral vertigo 2012 BPPV left Venous ulcer (HCC) 2013 Leg Retinal detachment 2010 CAD (coronary artery disease) 2005 Had CABG to LAD (for 80-90% LAD) surgery done at [facility] Pulmonary HTN (HCC) Severe on Echo 2013 Diastolic CHF (HCC) Echo 2014 EF 68, ascites, pulm HTN Over-anticoagulated 04/01/2015 Past Surgical History Procedure Laterality Date Cardiac surgery [facility] AVR Allergies Allergen Reactions Latex Rash Precautions/Limitations: falls Evaluation SUBJECTIVE: History of Presenting Problem: Johnny Siddiqi is a 80 y.o. who presents to therapy for Transfer from [facility] following a 5 day hospital stay w/ [...] (3-4 OT addt'l OT visits) until discharge [facility] therapy or discharged from the hospital. [...] from multiple contributors. ADLs Toileting, Level of Saline: minimum assist (75% patient effort), supervision required Toileting Assess/Train, Position: sitting, standing Toileting Assess/Train, Impairments: impaired balance Transfers Toilet, Level of Saline: contact guard assist, verbal cues required STG [...] other respiratory needs identified . lan of [facility] - Ana Dietrich, Vehicle Maintenance Supervisor-Clinical - 03/20/2016 4:15 PM PDTProblem: Discharge Planning [...] to have some HH come out thru [facility] at discharge, as well as some PT OT if needed. He is also agreeable to a or SNF stay if not safe to be home alone, if his son does not arrive prior to his discharge . This CM also made a call and spoke to Padmini at the [facility] to let her know that patient is here; that they were already gone by the time this CM could call on Saturday regarding this nyla elkins's admission. Padmini stated that per documentation, patient was sent to [facility] m onitoring, and that this is different than being seen at a [place] facility and then being referr ed to a hospital, thus, his stay will not be covered by the [place]. She confirmed that patient is not service [...] to go home.Electronically signed by: Ana Dietrich TRUCK PACKER 03/20/2016 16:15 Faxed initial SNF referral and face sheet to [facility] # [id number], [id number], and called Matthew, to let her know that this referral was on its way as a plan B. Since nyla elkins lives in [place], he signed the preference form for [facility] for his rell rt term rehab there and placed signed form in ghost chart. Electronically signed by: Ana Dietrich TRUCK PACKER 03/20/2016 16:31 la n of Care - Emily Medel Chaplain - 03/20/2016 11:30 AM PDTProblem: Spiritual Distr ess, Risk/Actual (Adult,Obstetrics,Pediatric) Goal: Spiritual Well-being Patient will demonstrate the desired outcomes by discharge/transition of care. Spiritual Care Johnny Siddiqi is a 80 y.o. male who is admitted for A-fib ([facility]) [I48.91]. Tow Truck Dispatcher visit was part of routine rounding. Spiritual [...] acceptance of his current condition. Spiritual Interventions: Tow Truck Dispatcher listened actively as patient was engaged in conversation. Tow Truck Dispatcher also affirmed h is confidence in God's sovereignty and care. Spiritual Outcomes: Patient expressed appreciation for the medical practitioners visit. Spiritual Goals/Follow up: Tow Truck Dispatcher will visit patient as needed or requested. If any additional spiritual issues seamus e, please contact the medical practitioners. lan of Care - Lynnette Bella RN [...] Refuses bipap lan of Care - Martha Caledra RN - 03/19/2016 6:28 PM PDTProblem: Patient [...] Needs & Preferences Outcome: Improving Admit from [facility] 03/16 for uncontrolled afib/flutter. Started Amiodarone gtt. [...] 2 8-11 3 12-14 4 15+ 5 hotel attendant score 3 No further interventions this shift lan of [facility] - Arun Mak RN - 03/18/2016 7:20 AM PDTProblem: Patient Care Overview (Adult) Goal: Personalization Needs & Preferences Outcome: Unchanged Admit from [facility] 03/16 for uncontrolled afib/flutter. PO dilt, still in A.Flutter bu t rates have been 80's-123s. On 2 L O2. VSS. A&O (can have confusion at times, early hayden lowe, calls roxy lan of [facility] - Donato Reid RRT - 03/18/2016 12:27 [...] of Care - Aleah, Maria Antonia Joya HOSPITAL CHIEF FINANCIAL OFFICER - 03/17/2016 7:04 PM PDT Problem: Patient [...] has a good, productive cough. lan of [facility] - Arun Nicole RN - 03/17/2016 7:50 AM PDTProblem: Patient Care Overview (Adult) Goal: Personalization Needs & Preferences Outcome: Improving from [facility] 03/16 for uncontrolled afib. Was there since 03/12 for CHF exacerbation an d afib.Has stage III kidney disease. Hx of CABG. Alert but confused, diltiazem gtt at 5mg/hr , was off for a while, remains A-flutter mostly 70s-80s but 130s with activity, o2 2L, sats 90s, trop 0.05-0.06, VSS, not impulsive lan of [facility] - Jp Sampson RRT - 03/16/2016 5:50 [...] lan of Care - Ana Villeda i, Vehicle Maintenance Supervisor-Clinical - 03/16/2016 5:50 PM PDTProblem: Discharge Planning Goal: Patient s discharge needs will be identified in a timely manner Outcome: Unchanged This CM met with patient, his [id number], and his son(also named Johnny Siddiqi) in room to discuss his discharge plans. He reports that he lives in his youngest son's house alone right now since his son works aw ay from home, but will be coming home on Saturday, per his older brother Johnny, since he n o longer has a job. His son's small house is in [place], [place]. The [facility] took his airport driver's license away from him so Johnny takes him around wherever he n eeds to go. His new [facility] DrJosefinais [facility]el[facility] since Dr. Goldberg retired. Patient does have Medicare Family Care Advantage now and reports that he does not have Medi care B only A and Veterans insurance. Both he and his son stated that the [facility] sent [facility] from [facility] where he has also be en there since Saturday night as an inpatient. 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 He has a little doggie that keeps him company too at home. He has a power scooter that he uses outside since the house is too small. He uses a cane in side the house. He has a daughter, Fiordaliza, who is an RN that lives in [place] and she will be coming to visit [...] verify any information with them regarding his Chief Trunki ce connection, and other support that he [...] of guera lang is coming over from [place] tomorrow. Talked with patient about a plan [...] back home. CM will need to contact [place] to see what services he is connected with once they are open aga in. Patient was talking about [employer] being set up, but need to confirm this information, since there may be some dementia.Electronically signed by: Ana Dietrich TRUCK PACKER 03/16/2016 17: 50 [facility] [facility] umented in this encounter Plan of Treatment +--------+ + + + + | Date | Type | Specialty | Care Team | Description | +--------+ + + + + | 07/20/ | Implant | Cardiology | Cruzito Bird, | Remote Device | | 2019 | Monitor | | [facility] [place] | Interrogation | | | | | 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 | [address] | [place], [place] | [phone] | | [facility] | | [address] | | | - LABORATORY | | [...] mL/min/1.73m2 | [facility] | | | Brazilian | RATE,ESTIMATED | | MEDICAL | | | | mL/min/1.54o1Yosw than | | CENTER - | | [...] [address] | [place] | [phone] | | [facility] | | [address] | | | - LABORATORY | | [...] + | [facility] | [address] | [place], [place] | [phone] | | [facility] | | [address] | | | - LABORATORY | | [...] lymphs seen. | [facility] | | | [facility] | | | [facility] | | | - LABORATORY | + + + + + + + + | Performing | Address | City/State/Zipcode | Phone Number | | Organization | | | | + + + + + | [facility] | [address] | [place] | [phone] | | [facility] | | [address] | | | - LABORATORY | | [...] [address] | [place] | [phone] | | [facility] | | [address] | | | - LABORATORY | | [...] (H) | 7 - 18 mg/dL | [facility] | | | | | | [facility] | | | | | | MEDICAL | | | | | | CENTER - | | | | | | LABORATORY | | + + + + + + | Creatinine | 1.30 | 0.60 - 1.30 | [facility] | | | | | mg/dL | [facility] | | | | | | MEDICAL | | | | | | CENTER - | | | | | | LABORATORY | | + + + + + + | eGFR, | 53 (L)Comment: | >=60 | [facility] | | | non- | GLOMERULAR FILTRATION | mL/min/1.73m2 | [facility] | | | Brazilian | RATE,ESTIMATED | | MEDICAL | | | | mL/min/1.34d2Kyyu than | | CENTER - | | [...] + | [facility] | [address] | [place] | [phone] | | [facility] | | [address] | | | - LABORATORY | | [...] + | [facility] | [address] | [place] | [phone] | | [facility] | | [address] | | | - LABORATORY | | [...] | | | | | | [facility] | | | | | | MEDICAL [...] + | [facility] | [address] | [place] | [phone] | | [facility] | | [address] | | | - LABORATORY | | [...] | | | | | | [employer] | | | | | [...] [address] | [place] | [phone] | | [facility] | | [address] | | | - LABORATORY | | [...] | | | | | | [employer] | | | | | [...] [address] | [place] | [phone] | | [facility] | | [address] | | | - LABORATORY | | [...] | | | | | BINU CHARLTON ([id number]) on | | | | | | [...] | | | | | | [employer] | | | | | [...] + | [facility] | [address] | [place] | [phone] | | [facility] | | [address] | | | - LABORATORY | | [...] [address] | [place] | [phone] | | [facility] | | [address] | | | - LABORATORY | | [...] eGFR, | 50 (L)Comment: | >=60 | [facility] | | | non- | GLOMERULAR FILTRATION | mL/min/1.73m2 | [facility] | | | Brazilian | RATE,ESTIMATED | | MEDICAL | | | | mL/min/1.95t3Scrw than | | CENTER - | | [...] [address] | [place] | [phone] | | [facility] | | [address] | | | - LABORATORY | | [...] [address] | [place] | [phone] | | [facility] | | [address] | | | - LABORATORY | | [...] + | [facility] | [address] | [place] | [phone] | | [facility] | | [address] | | | - LABORATORY | | [...] | | | | | | [employer] | | | | | [...] + | [facility] | [address] | [place] | [phone] | | [facility] | | [address] | | | - LABORATORY | | [...] | | | | | | [employer] | | | | | [...] + | [facility] | [address] | [place] | [phone] | | [facility] | | [address] | | | - LABORATORY | | [...] | | | | | | [employer] | | | | | [...] + | [facility] | [address] | [place] | [phone] | | [facility] | | [address] | | | - LABORATORY | | [...] [address] | [place] | [phone] | | [facility] | | [address] | | | - LABORATORY | | [...] | | | | | | [employer] | | | | | [...] [address] | [place] | [phone] | | [facility] | | [address] | | | - LABORATORY | | [...] [address] | [place] | [phone] | | [facility] | | [address] | | | - LABORATORY | | [...] (H) | 7 - 18 mg/dL | [facility] | | | | | | [facility] | | | | | | MEDICAL | | | | | | CENTER - | | | | | | LABORATORY | | + + + + + + | Creatinine | 1.39 (H) | 0.60 - 1.30 | [facility] | | | | | mg/dL | [facility] | | | | | | MEDICAL | | | | | | CENTER - | | | | | | LABORATORY | | + + + + + + | eGFR, | 49 (L)Comment: | >=60 | [facility] | | | non- | GLOMERULAR FILTRATION | mL/min/1.73m2 | [facility] | | | Brazilian | RATE,ESTIMATED | | MEDICAL | | | | mL/min/1.16f9Ujzr than | | CENTER - | | [...] + | [facility] | [address] | [place] | [phone] | | [facility] | | [address] | | | - LABORATORY | | [...] + | [facility] | [address] | [place] | [phone] | | [facility] | | [address] | | | - LABORATORY | | [...] ST. | [address] | [place], [place] | [phone] | | [facility] | | [address] | | | - LABORATORY | | [...] PORTABLE dated | | 03/18/2016 5:17 AMHISTORY: [facility] March 16, 2016.TECHNIQUE: A single portable [...] | | | | | | [employer] | | | | | [...] [address] | [place] | [phone] | | [facility] | | [address] | | | - LABORATORY | | [...] | | | | | | [employer] | | | | | [...] + | [facility] | [address] | [place] | [phone] | | [facility] | | [address] | | | - LABORATORY | | | | + + + + + Troponin I (03/17/2016 12:35 PM PDT) + + + + + + | Component | Value | Ref Range | Performed | Pathologist | | | | | At | Signature | + + + + + + | Troponin I | 0.05Comment: Reference | <0.06 ng/mL | [facility] | | | | Ranges:0.00-0.06 = | [...] | | | | | | [employer] | | | | | [...] + | [facility] | [address] | [place] | [phone] | | [facility] | | [address] | | | - LABORATORY | | [...] | | | | | | [employer] | | | | | [...] [address] | [place] | [phone] | | [facility] | | [address] | | | - LABORATORY | | [...] [address] | [place] | [phone] | | [facility] | | [address] | | | - LABORATORY | | [...] [address] | [place] | [phone] | | [facility] | | [address] | | | - LABORATORY | | [...] 1.49 (H) | 0.60 - 1.30 | [facility] | | | | | mg/dL | [facility] | | | | | | MEDICAL | | | | | | CENTER - | | | | | | LABORATORY | | + + + + + + | eGFR, | 45 (L)Comment: | >=60 | [facility] | | | non- | GLOMERULAR FILTRATION | mL/min/1.73m2 | [facility] | | | Brazilian | RATE,ESTIMATED | | MEDICAL | | | | mL/min/1.10k3Dcyv than | | CENTER - | | [...] + | [facility] | [address] | [place] | [phone] | | [facility] | | [address] | | | - LABORATORY | | [...] [address] | [place] | [phone] | | [facility] | | [address] | | | - LABORATORY | | [...] | | | | | | [employer] | | | | | [...] + + | Performing | Address | City/State/[facility] | Phone Number | | Organization | | | | + + + + + | [facility] | [address] | [place] | [phone] | | [facility] | | [address] | | | - LABORATORY | | [...] | | | | | | [employer] | | | | | [...] [address] | [place] | [phone] | | [facility] | | [address] | | | - LABORATORY | | [...] [address] | [place] | [phone] | | [facility] | | [address] | | | - LABORATORY | | [...] - 1.030 | [facility] | | | [place], | | | [facility] | | [...] ST. | [address] | [place], [place] | [phone] | | [facility] | | [address] | | | - LABORATORY | | [...] [address] | [place] | [phone] | | [facility] | | [address] | | | - LABORATORY | | [...] ST. | [address] | [place] | [phone] | | [facility] | | [address] | | | - LABORATORY | | [...] | | | | | | [employer] | | | | | [...] [address] | [place] | [phone] | | [facility] | | [address] | | | - [...] + | [facility] | [address] | [place] | [phone] | | [facility] | | [address] | | | - LABORATORY | | [...] | | Cells | | M/uL | [facility] | | | [...] + | [facility] | [address] | [place] | [phone] | | [facility] | | [address] | | | - LABORATORY | | [...] mL/min/1.73m2 | [facility] | | | Brazilian | RATE,ESTIMATED | | MEDICAL | | | | mL/min/1.87l1Xrrg than | | CENTER - | | [...] + | [facility] | [address] | [place] | [phone] | | [facility] | | [address] | | | - LABORATORY | | [...] [address] | [place] | [phone] | | [facility] | | [address] | | | - LABORATORY | | [...] 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
--- OUTSIDE RECORDS SUMMARY | ~2020-05-18 | XMS | Encounter Summary ---
Demographics + + + | Address | [address] | | | [place] [address] | + + + | Home Phone [...] Team Providers + +------+ + | Care Spud Driller Name | Role | Phone | [...] Monitor | CARDIOLOGY [address] | reprogramming/check | | | | [place], | [place], | (Primary Dx); | | | | [place] [address] | [place] [address] | Pacemaker Dual | | | | [phone] | [phone] | Chamber, MRI | | | | [...] Paceart documentation and remote PDF scanned into [employer] for remote interrogation results. Data collected by Mel Horne RN Presenting rhythm: Sinus rhythm atrial paced ventricular sensed 60 bpm. 38975 mode switch episodes accounting for 19% of [...] Interrogation | | | | | 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 | | | Data collected by BATSHEVA Hightowerresenting rhythm: Sinus | | | rhythm atrial paced ventricular sensed 60 bpm.15406 mode switch | | | episodes accounting [...]
--- OUTSIDE RECORDS SUMMARY | ~2020-05-18 | XMS | Encounter Summary ---
Demographics + + + | Address | [address] | | | [place] [address] | + + + | Home Phone | | + + + | Preferred Language | Unknown | + + + | Marital Status | | + + + | Confucianism Affiliation | 1061 | + + + | Race | Unknown | + + + | Ethnic Group | Unknown | + + + Author + + + | Author | [facility] | | | and [place] | + + + | Organization | [facility] | | | and [...] Team Providers + +------+ + | Care Electrotype Caster Name | Role | Phone | [...] visit | CARDIOLOGY [address] | [address] [place] | reprogramming/check | | | | [place], | 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
--- OUTSIDE RECORDS SUMMARY | ~2020-05-18 | XMS | Encounter Summary ---
Demographics + + + | Address | [address] | | | [place] [address] | + + + | Home Phone [...] Team Providers + +------+ + | Care Yardage Tufting Machine Operator Name | Role | Phone [...] CARDIOLOGY [address] | MD [address] | in high output mode. | | | | [place], | [place], | ) | | | | [place] [address] | [place] [address] | | | | | [phone] | [phone] | | | | | | | [...] call over to patients caregiver and have [facility] send a manual report. Electronically signed by: [...] Dx); | | | | | [place] [address] | Pacemaker Dual | | | | | [phone] | Chamber, MRI | | | | [...]
--- OUTSIDE RECORDS SUMMARY | ~2020-05-18 | XMS | Encounter Summary ---
Demographics + + + | Address | [address] | | | [place] [address] | + + + | Home Phone | | + + + | Preferred Language | Unknown | + + + | Marital Status | | + + + | Adventism Affiliation | 1061 | + + + | Race | Unknown | + + + | Ethnic Group | Unknown | + + + Author + + + | Author | [facility] | | | and [place] | + + + | Organization | [facility] | | | [...] Team Providers + +------+ + | Care Md Psychiatry Name | Role | Phone | + [...] persistent | MD Paco | [address] | | | | | atrial | [address] [place] | | | | | fibrillation | [place] | [place], [place] | | | | | ([facility]) Sick | [address] [place] | [address] Phone: | | | | | sinus | [place], [place] | [phone] | | | | | syndrome | [address] | Fax: | | | | | (HCC) | Phone: | [phone] | | | | | Chronic | [phone] | | | | | | diastolic | Fax: | | | | | | (congestive) | [phone] | | | | | | heart [...] + + | 01/05/ | Office | [facility] | Emely Gabriel, | Coronary artery | | 2020 | Visit | CARDIOLOGY [address] | SOCIAL MEDIA MARKETING MANAGER [address] | disease involving | | | | [place], | [place] | [place] coronary | | | | [place] [address] | [address] | artery of [place] | | | | [phone] | | heart without angina | | | | | | pectoris (Primary | | | | | | Dx); Essential | | | | | | hypertension; | | | | | | Pulmonary HTN ([facility]); | | | | | | Chronic diastolic | | | | | | congestive heart | | | | | | failure ([facility]); | | | | | | Persistent atrial | | | | | | fibrillation (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); | | | | | | Status [...] encounter Patient Instructions Patient Instructions Herson Boone, Reformatory Attendant - 01/06/2020 12:45 PM PDT1. We will schedule you for a lung function test to check for amiodarone side effects at [facility]. 2. [facility] see [facility] had [facility] check [facility] the [facility] recently. 3. Get a hold of the [facility] for about signing a paper to release information to [facility] so we can view it [...] local public health website. 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 nystatin (MYCOSTATIN) 997033 UNIT/GM cream Apply 1 Units topically 3 [...] Lateral leads Confirmed by BASIA BIRD MD ([id number]) on 07/31/2018 4:48:20 PM Which is compared to today's ECG 01/06/2020: atrial-paced rhythm with prolonged AV conduct ion, left bundle branch block. QT/QTc 476/476 with a ventricular rate of 60 beats per minute . LAB RESULTS reviewed during visit today primarily from [facility]: LIPID Lab Results Component Value Date [...] scanned Paceart documentation and device PDF in [employer] for interrogation (with programming changes) performed during [...] Symptoms with minimal exertion of t he [place] Heart Association functional class, which is complicated [...] above. He does have remote monitoring with [employer]. 3. Paroxysmal atrial fibrillation with RVR/aberration conduction: [...] 73 Y.O.(2) and Vascular disease ( 1). [id number] is 4, which gives an estimated 4.0%risk [...] device check. 4. 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 [facility] 11/14/2004 shows preserved [...] mg. His warfarin is managed by the [facility]. 7. Hyperlipidemia, mixed: A. Today, 01/06/2020, he [...] He wants to have this done at [facility]. Eye exam was done a t [facility] in 11/2019 showed no changes. Called the [facility] to see if TSH was done with his other labs in October and they report that if it was done it would have been on the labs we received, a nd as we do not see this we will add labs to be done at [facility] when he has his INR done t [...] to check for amiodarone side effects at [facility]. 2. He will have TSH and T4 added to his INR that will be done at [facility] tomorrow to foll ow-up his amiodarone use. 3. Get a hold of the [facility] for about signing a paper to release information to [employer] so we can view it in our system. 4. He will continue with his [employer] remote device monitoring. 5. He is recommend [...] done prior by another provider. Herson Breaux, Reformatory Attendant am acting as a scribe on behalf of, and in the presenc e of AMANDA Hurtado. - Herson Boone, Reformatory Attendant 01/06/2020 12:39 PM mEely Breaux ARNP, personally performed the services described in this documentation, as scribed in my presence and it is both accurate and complete. AMANDA Hurtado 0 Portions of this chart may have been created with [employer] voice recognition software. 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
--- OUTSIDE RECORDS SUMMARY | ~2020-05-18 | XMS | Clinical Summary ---
Demographics + + + | Address | [address] | | | [place] [address] | + + + | Home Phone [...] Team Providers + +------+ + | Care Rigging Loft Repairer Name | Role | Phone | + [...] | | | Activ | | (MYCOSTATIN) [id number] | topically 3 (three) | | | [...] St | | Rupert Assurity MRI [id number] 05/14/[address] [facility] Tendril | | MRI [id number] 05/14/[address] [facility] Tendril MRI | | [id number] 05/14/17 Indication: Tachycardia-Bradycardia | | Syndrome. | [...] | Overview: CT scan 2004 at [facility] | + + + +---+ | Coronary artery disease involving [place] coronary artery of | | | [place] heart without angina pectoris | | + +---+ + + | Overview: [facility] [place] 11/14/2004 shows preserved left ventricular | | [...] 2019 | Monitor | | [address] | Interrogation | | | | | 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) | +--------+ + + + + | 01/05/ | Office | Cardiology | Emely Gabriel, | | | 2020 | Visit | | SUPPORT GROUP MANAGER [address] | | | | | | St [place], [place] | | | | | | [address] | | | | | | | [...] | [facility] | | 06/20/ | [id number] | | [id number]: Qty: 1 | | Heart | MEDICAL - | | 2016 | 0M/52 | | on 05/14/2017 by Marge, | | | STJU | | | /[id number] | | MD [facility] at [facility] | | | | | | 8427 / | | [facility] | | | | | | | + +------+-------+ +--------+--------+--------+ | Lead Tendril Mri 46cm - | | N/A: | [facility] | | 07/20/ | [id number] | | [id number]: Qty: 1 | | Heart | MEDICAL - | | 2016 | 0M/46 | | on 05/14/2017 by Marge, | | | STJU | | | /[id number] | | MD Cruz[place] at [facility] | | | | | | 3446 / | | [facility] | | | | | | | + +------+-------+ +--------+--------+--------+ | Pacer Assurity Mri Dr Rf - | | N/A: | [facility] | | 08/20/ | [id number] | | [id number]: Qty: 1 on | | Heart | MEDICAL - | | 2018 | | | 05/14/2017 by Marge, | | | CHRISTOPHER | | | /[id number] | | MD [facility] at [facility] | | | | | | 01 / | | [facility] | | | | | | | [...] +--------+ +---------+--------+ | MEDICARE | MEDICA | [id number] | 06/21/19 | [phone] | | Medica | | | RE | | 98-Pre | 5 | | re | | | PART A | | sent | | | | | | AND B | | | | | | + +--------+ +--------+ +---------+--------+ | [employer] | [employer] | [id number] | 10/21/19 | [phone] | | Medica | | MEDICAID HMO | HEALTH | | 19-Pre | 1 | | id | | | MDCD | | sent | | | | | | [place]MO [place] | | | | | | + +--------+ +--------+ +---------+--------+ | [employer] | [employer] | [id number] | | | | Indemn | | [...] | | 8 (Home) | [place] [address] | + +--------+ +--------+ + + | Johnny Siddiqi | Chapis | Self | [birth year] | [address] | | | l | | 1935 | [phone] | [address] | | | Servic | | | 7 (Home) | [place] [address] | | | es | | | | | + +--------+ +--------+ + + Advance Directives + + + + + | Type | Date Recorded | Patient | Explanation | | | | Film Library Clerk | | + + + + + | Power of | 05/07/2017 1:18 | | FINANCIAL POWER OF CALL CENTER NURSE | | Item Processor | PM | | | + + [...]
--- OUTSIDE RECORDS SUMMARY | ~2020-05-18 | XMS | Encounter Summary ---
Demographics + + + | Address | [address] | | | [place] [address] | + + + | Home Phone [...] Team Providers + +------+ + | Care Svp Monetization Name | Role | Phone | + [...] | | LEIGHA LAM | [address] [address] | | | | | [place], [place] | [place] [address] | | | | | [address] | [phone] | | | | | [phone] | | | +--------+ + + + [...] Dx); | | | | | [place] [address] | Pacemaker Dual | | | | | [phone] | Chamber, MRI | | | | [...] [place] | | | | | | [address] | | | | | | | [...] NML, diastolic function abnormal, | | | [place] visually estimates LVEF 60-65%. Moderate LAE, mild [...] | | funcion NML, diastolic function abnormal, [place] visually estimates | | | LVEF 60-65%. [...] pressures of | | | 10-15mmHg. MEASUREMENTS Fnps: DBS | | | Authenticated by: Antonio Payne DO Report Date/Time: -- | | | [id number]:22 | | + + + + + [...] LVH, systolic funcion NML, diastolic function abnormal, [place] visually | | estimates LVEF 60-65%. Moderate [...] venous pressures of 10-15mmHg. MEASUREMENTS | | Fnps: ADAMAuthenticated by: Antonio Kline Date/Time: -- | | [id number]:22 IMPRESSION: 1. See Dictation. TDS. A fib.2. [...] LVH, systolic funcion NML, diastolic function abnormal, [place] | | visually estimates LVEF 60-65%. Moderate [...] | |MEASUREMENTS | | | | | |Fnps: ADAM | |Authenticated by: Antonio Payne DO | |Report Date/Time: -- [id number] | | | |IMPRESSION: | |1. See [...] systolic funcion NML, diastolic function abno rmal, [place] visually estimates LVEF 60-65%. Moderate LAE, mild ANDRIA. RV dimensions NML, sy stolic function impaired. 4. | |No Pericardial effusion. 5. 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 | + + documented in this encounter Visit Diagnoses Not on filedocumented in this encounter"
--- OUTSIDE RECORDS SUMMARY | ~2020-05-18 | XMS | Encounter Summary ---
Demographics + + + | Address | [address] | | | [place] [address] | + + + | Home Phone [...] Team Providers + +------+ + | Care Clerical Coordinator Name | Role | Phone | [...] | | | | CENTER [address] | [facility] | heart failure) ([facility]) | | | | [place] | [place] [address] | (Primary Dx) | | | | [address] | [phone] | | | | | [phone] | | | +--------+ + + + [...] through Care Everywhere.CONGESTIVE HEAR T FAILURE, LEFT-SIDED (SPANISH)documented in this encounter Medications at Time of [...] might be different f rom the original. [facility] S[facility] Emergency Department Encounter Note [address] [place] [address] PCP:Emelina Robertson MD [phone] CHIEF COMPLAINT Chief [...] INR goal is 2-3, surgery done at [facility] Hypertension Liver cirrhosis (HCC) CVA (cerebral infarction) -2014 lacunar (not stated as new nor old) Dementia Alcoholic cirrhosis (HCC) 2003 CT scan 2003 at [facility] Endocarditis 2009 Enterococcus 6 weeks Amp + Gent PSA elevation 2008 Pt declined Bx then Peripheral vertigo 2012 BPPV left Venous ulcer (HCC) 2013 Leg Retinal detachment 2010 CAD (coronary artery disease) 2004 Had CABG to LAD (for 80-90% LAD) surgery done at [facility] Pulmonary HTN (HCC) Severe on Echo 2014 [...] Acute exacerbation of CHF (congestive heart failure) ([facility]) PLAN Follow-up Information Schedule an appointment as soon as possible for a visit with Emelina Robertson MD. Specialty: Internal Medicine Contact information: [address] [place] [address] Discharge Medication List as of 04/20/2016 [...] Dx); | | | | | [place] [address] | Pacemaker Dual | | | | | [phone] | Chamber, MRI | | | | [...] [place] | | | | | | [address] | | | | | | | [...] + | [facility] | [address] | [place] | [phone] | | [facility] | | [address] | | | - LABORATORY | | [...] [address] | [place] | [phone] | | [facility] | | [address] | | | - LABORATORY | | [...] | | Top Tube | | | [facility] | | | | | | MEDICAL [...] | + + + + + | [facility] | [address] | [place] | [phone] | | [facility] | | [address] | | | - LABORATORY | | [...] + | [facility] | [address] | [place] | [phone] | | [facility] | | [address] | | [...] mL/min/1.73m2 | [facility] | | | Liberian | RATE,ESTIMATED | | MEDICAL | | | | mL/min/1.53d0Grip than | | CENTER - | | [...] [address] | [place] | [phone] | | [facility] | | [address] | | | - LABORATORY | | [...] [address] | [place] | [phone] | | [facility] | | [address] | | | - LABORATORY | | [...]
--- OUTSIDE RECORDS SUMMARY | ~2020-05-18 | XMS | Encounter Summary ---
Demographics + + + | Address | [address] | | | [place] [address] | + + + | Home Phone [...] Team Providers + +------+ + | Care Completion Engineer Name | Role | Phone | [...] Monitor | CARDIOLOGY [address] | [address] | Interrogation | | | | Ax[place], | [place], | (Primary Dx); | | | | [place] [address] | [place] [address] | Pacemaker Dual | | | | [phone] | [phone] | Chamber, MRI | | | | [...] Paceart documentation and remote PDF scanned into [facility] for remote interrogation re sults. [...] Interrogation | | | | | 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 Data [...]
--- OUTSIDE RECORDS SUMMARY | 2020-05-18 09:38 | XMS ---
PreManage Notification: JACKLYN PATEL Security [employer] Events No recent Security Events currently on file CRITERIA MET - Group Notification - [facility] - Has Care Guidelines - [facility] - 2 Visits in 30 Days CARE PROVIDERS Lalo Nicholson [facility] Current PHONE: [phone] Leonila Cohen Body Corporate Manager/Creative Engagement Director 12/20/2019-Current PHONE: [phone] [facility] 07/10/2018-Current PHONE: Unknown Rikki has no Care Guidelines for this patient. 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 - PATIENT PCP IS DR SAIMA ANDERSON AT THE [place]. 02/12/2018 [facility] Care Recommendation: This patient has had 5 or more Emergency Department visits in the last 12 months. Patient requires education on the scope and purpose of the ED as an acute care provider not a Primary Care Provider and should not be utilized for chronic conditions. If patient returns to ED please contact Community Health WorkerAnamaria at [phone]. These are guidelines and the provider should exercise clinical judgment when providing care. E.D. VISIT COUNT (12 MO.) 3 [facility]. TOTAL 3 NOTE: Visits indicate total known visits. ED/C VISIT TRACKING (12 MO.) 05/18/2020 09:35 [facility] [place] TYPE: Emergency COMPLAINT: - SWOLLEN LEGS 04/29/2020 18:39 [facility] [place] TYPE: Emergency COMPLAINT: - TOE PAIN DIAGNOSES: - Pain in right toe(s) 04/09/2020 09:29 [facility] [place] TYPE: Emergency COMPLAINT: - WEAKNESS, SOB INPATIENT VISIT TRACKING (12 MO.) 04/09/2020 12:28 [facility] [place] TYPE: Medical Surgical COMPLAINT: - COPD EXACERBATION / RULE OUT COVID DIAGNOSES: - [facility] (current) use of inhaled steroids - extermination inspector (current) use of inhaled steroids - Other specified disorders of veins - Presence of prosthetic heart valve - Presence of cardiac pacemaker - Hypoxemia - Disorientation, unspecified - Other roasterman (current) drug therapy - Unspecified hearing loss, unspecified ear - [facility] (current) use of anticoagulants - Abnormal coagulation profile - Other jail (current) drug therapy - Latex allergy status [...] - Other specified disorders of veins - extermination inspector (current) use of anticoagulants - Gout, unspecified - Hypothyroidism, unspecified - Latex allergy status - Hypothyroidism, unspecified - Presence of prosthetic heart valve - Presence of aortocoronary bypass graft - Unspecified dementia without behavioral disturbance - Acute on chronic diastolic (congestive) heart failure - Chronic obstructive pulmonary disease with (acute) exacerbati - Gout, unspecified - Hypoxemia [id number]
--- NOTE | 2020-05-18 14:29 | NUR ---
INTAKE ASSESSMENT WITH PT SON IN ROOM. PT HARD OF HEARING. ORIENTED TO ROOM, AND CALL LIGHT. ORDERED MEALS WITH MENU. PT LIVES ALONE IN [address] AT [facility]. - SON DOES NOT TAKE CARE OF HIM - DC CHEMICAL RECOVERY OPERATOR NEEDED. CARD GIVEN TO SON TO CALL WITH CONCERNS ABOUT LACK OF HOME CARE FOR LAST 3 WEEKS HE HAS BEEN ALONE.
[2020-05-18] MEDS ORDERED: ADT ROBITUSSIN PO (14:49)
[2020-05-18] MEDS ORDERED: NORCO 5-325 TA1 EACH PO (14:50)
--- NOTE | 2020-05-18 15:19 | NUR ---
ADMITTING LOPPER ALERTED ME THAT PATIENTS SON STATED DURING ADMIT THAT PATIENT LIVES AT [facility] AND HAD A CAREGIVER THAT QUIT 3 WEEKS AGO. HE STATES PATIENT HASN'T HAD ANYONE TO HELP HIM, HE HASN'T HAD A SHOWER IN 3 WEEKS. HE STATED TO HER THAT THE HOME CARE PEOPLE AND [facility] WALKED OUT ON HIM WITHOUT A REASON. CALLED [facility], SPOKE WITH FELTON. SHE STATES THEY DID TERMINATE THEIR CARE FOR HIM DUE TO BEHAVIORS AND ISSUES WITH PATIENTS SON. SHE STATES THEY CANNOT DELIVER HIS CARE DUE TO THIS. SHE STATES STEFAN AT [facility] USED TO BE HIS DOCK ATTENDANT BUT SHE THINKS IT IS SOMEONE NEW NOW. SHE STATES THE PATIENT AND FAMILY WAS NOTIFIED OF THE REASONS AND THE TERMINATION. CALLED [facility] AND NEW DOCK ATTENDANT IS VIDHYA. SPOKE WITH VIDHYA. SHE STATES THEY HAVE NOT TERMINATED WITH HIM. THEY HAVE SPOKEN WITH THEM AND HE STILL HAS 55HOURS OF CARE EVERY 2 WEEKS AND THAT CAN BE REASSESSED IF HE HAS NEW NEEDS. THEY HAVE EXPLAINED TO THEM THEY CAN HIRE ANOTHER CAREGIVER. THIS IS UP TO THE PATIENT AND FAMILY, HOWEVER TO FIND AND HIRE. WILL UPDATE THEM WHEN DISCHARGE IS PLANNED.
--- NOTE | 2020-05-18 15:56 | NUR ---
becca bernard was in to see pt. he is now visiting with this rn, slight confusion. tells me he doesn't have any caregivers and he lives alone. he doesnt understand why because his rent is paid. let him know his son was working on something and trying to hire someone.
--- NOTE | 2020-05-18 16:02 | NUR ---
SPOKE WITH LUIS IN ROOM. PATIENT AWAKE, EATING LUNCH ON OWN. PATIENT IS PLEASANT BUT CONFUSED. DID SAY HE USES A WALKER AT HOME AND HAS A WHEELCHAIR IN STORAGE. THIS IS CONSISTENT WITH NURSES ADMIT ASSESSMENT DONE WITH SON. CM WILL CONTINUE TO FOLLOW.
--- NOTE | 2020-05-18 16:33 | NUR ---
pt confused, called son from his phone. son called the desk and wants us to sedate him, nara explained we can not do that and he was welcome to block the calls or turn it off. pt is in bed and confused.
--- NOTE | 2020-05-18 17:39 | NUR ---
PATIENT HAS PUSHED CALL LIGHT MULTIPLE TIMES, PATIENT IS CONFUSED AND KEEPS ASKING TO GET UP AND STAND UP, PATIENT SAYS HIS LEGS HURT NURSE IS AWARE MEDS HAVE BEEN GIVEN
--- NOTE | 2020-05-18 17:54 | NUR ---
inc. of urine - linen changed. pt up to bsc with 1 person transfer pivot. pt had bm. noted to have a scratch on his forehead - bandaid applied. pt confused. education printed and provided to pt on cellulits.
--- NOTE | 2020-05-18 19:35 | NUR ---
PT RESTING IN BED, EYES CLOSED. 2LNC IN PLACE, RR EVEN AND UNLABORED. NO DISTRESS NOTED. BED ALRM ON, CALL LIGHT IN REACH. BOARD UPDATED. PT IN VIEW OF RN STATION.
--- NOTE | 2020-05-18 20:45 | NUR ---
ASSESSMENT COMPLETE, SCHEDULED MED GIVEN (SEE EMAR). PT A/O TO SELF AND DATE, FORGETFUL AT TIMES AND IMPULSIVE WITH MOVEMENT. BED ALARM ON TO ENSURE SAFETY. PT UP TO VOID VIA BSC, INCONTINENT OF LIQUID BM AND URINE. PT CLEANED UP WITH HELP FROM DANA JANUARY. NEW ATTENDS IN PLACE, PT IN BED. VSS, PT DENIES PAIN AND NAUSEA. IV SITE WNL, FLUSHES EASILY. CALL LIGHT IN REACH.
--- NOTE | 2020-05-19 00:09 | NUR ---
PT RESTING IN BED WITH EYES CLOSED, RR EVEN AND UNLABORED. 2LNC IN PLACE, NO DISTRESS NOTED. CALL LIGHT IN REACH, BED ALARM ON.
--- NOTE | 2020-05-19 01:38 | NUR ---
ASSESSMENT COMPLETE, NO NEW CHANGES OR CONCERNS. PT AWAKE AND RESTING IN BED. UP 1-2PA WITH FWW TO BSC, INCONTINENT OF URINE. PT STATES, "I'D LIKE TO GET RID OF SOME OF THIS WATER". DRY ATTENDS IN PLACE. 2LNC ON, PT DENIES SOB. CALL LIGHT IN REACH, BED ALARM ON. IN EASY VIEW OF RN STATION. BLE ELEVATED WITH USE OF PILLOWS.
--- NOTE | 2020-05-19 01:53 | NUR ---
VITALS AND I&OS DONE AND CHARTED. WITH THE HELP OF SAMEER RAYMUNDO WE HELPED PT TO THE BSC AND BACK TO BED WITH HIS FWW. BEDSIDE TABLE AND CALL LIGHT IN REACH.
--- NOTE | 2020-05-19 04:20 | NUR ---
PT RESTING IN BED WITH EYES CLOSED. RR EVEN AND UNLABORED, NO DISTRESS NOTED. 2LNC IN PLACE, CALL LIGHT IN REACH. BED ALARM ON.
--- NOTE | 2020-05-19 04:39 | NUR ---
IN ROOM TO ANSWER CALL LIGHT. WITH HELP FROM JANUARY, PT UP 2PA WITH FWW TO BSC TO VOID AND BACK TO BED. 2LNC IN PLACE, BED ALARM ON. CALL LIGHT IN REACH.
--- NOTE | 2020-05-19 05:49 | NUR ---
VS AND I&O'S DONE. PT AWAKE AND RESTING IN BED, PLEASANTLY FORGETFUL. BED ALARM ON, NO NEEDS. CALL LIGHT IN REACH, FRESH WATER TO BEDSIDE TABLE.
--- NOTE | 2020-05-19 06:12 | NUR ---
PT HAD A URI, SLEPT OFF AND ON. PAIN CONTROLLED WITH PRN TYLENOL AND REPOSITIONING. VSS, 2LNC BASELINE. LUNG SOUNDS CLEAR. 1-2PA WITH FWW, PT REQUIRES PROMPTING AT TIMES. FORGETFUL AND CAN BE IMPULSIVE, BED ALARM ON. PLEASANTLY CONFUSED. 2G SODIUM DIET, TOLERATING WELL. NO NAUSEA REPORTED. DISCOLORATION AND EDEMA TO BLE, ELEVATE WITH PILLOWS. IV ABX.
--- NOTE | 2020-05-19 07:15 | NUR ---
HELPED PT WITH HIS URINAL. AND BACK TO BED. BEDSIDE TABLE AND CALL LIGHT IN REACH.
--- NOTE | 2020-05-19 08:24 | NUR ---
THE CHARGE NURSE AND I TRANSFERED PATIENT FROM HIS BED TO HIS CHAIR. PATIENT IS NOW EATING HIS BREAKFAST. LINENS CHANGED. TEETH IN AND HEARING AIDS IN.
--- NOTE | 2020-05-19 08:41 | NUR ---
PT UP IN THE CHAIR FOR BKF. ATE ALL OF IT. TOOK AM MEDS. PT IS ABLE TO BE A 1 PERSON ASSISTANCE.
--- NOTE | 2020-05-19 09:35 | NUR ---
SPOKE WITH PATIENT IN GRIER. HE IS WALKING WITH PHYSICAL THERAPY. PATIENT SITTING RESTING WHEN I SPOKE WITH HIM. PATIENT PLEASANT. IS ORIENTED TO PLACE TODAY. ASKED IF PATIENT AND FAMILY ARE LOOKING FOR A NEW CAREGIVER AND WHERE THEY ARE IN THAT PROCESS. HE STATES "[facility] DOES THAT". ASKED IF HE REMEMBERED THEY ARE NO LONGER WORKING WITH THEM. HE DOESN'T SEEM TO KNOW WHAT I MEAN. WILL TRY TO CALL HIS SON.
--- NOTE | 2020-05-19 09:56 | NUR ---
TRIED TO REACH SON AT HOME, MESSAGE LEFT FOR CALL BACK.
--- NOTE | 2020-05-19 10:53 | NUR ---
PATIENT ON A 2 GRAM SODIUM DIET DUE TO HISTORY OF CHF. PATIENT'S BASELINE IS PLEASANTLY CONFUSED. PROVIDED A LOW-SODIUM PACKET BEFORE HE WAS DISCHARGED ON APRIL 12, 2020. CONTINUE 2 GRAM SODIUM DIET WHILE HERE. PATIENT HAS A GOOD APPETITE.
--- NOTE | 2020-05-19 11:00 | NUR ---
SPOKE WITH PATIENT AND SON IN ROOM. SON STATES THAT [employer] "QUIT COMING OVER SOME BOGUS ISSUES" AND HE HAS THE HEAD OF THEIR BUSINESS "LOOKING INTO IT". ASKED IF HE IS PLANNING ON HIRING SOMEONE HIMSELF. HE STATES HE HAS CALLED EVERYONE ON THE LIST THE STATE GAVE HIM AND THEY EITHER ARE BUSY OR NOT SEEING PEOPLE DUE TO COVID. DISCUSSED THAT PERHAPS MOVING INTO ASSISTED LIVING WOULD BE A GOOD IDEA THEN THEY WOULDN'T HAVE TO WORRY ABOUT HIRING IN-HOME HELP. DISCUSSED POSSIBLE FACILITIES IN AREA. PATIENT REPEATED HIMSELF A COUPLE TIMES SAYING "MY RENT IS PAID THROUGH NEXT MONTH". SON STATES HE ISN'T SURE PATIENT CAN AFFORD IT BECAUSE HE HAS STORAGE UNITS HE HAS TO PAY FOR. ASKED WHAT MONTHLY INCOME WAS FOR PATIENT, SON STATES HE DOESN'T KNOW. ASKED IF BROOKE WAS HIS PAYEE, SON SAID NO. ASKED WHO PAYS THE BILLS, SON STATES HE DOES. AGAIN ASKED WHAT MONTHLY INCOME IS SO TO ADVISE THEM ON WHAT OPTIONS ARE, SON DENIES KNOWING. ASKED IF THERE IS A POA, SON STATES HE IS POA. ASKED WHAT THEY PLAN TO DO AT DISCHARGE THEN, SINCE THEY'RE MAIN CONCERN WHEN COMING IN WAS HE DIDN'T HAVE A CAREGIVER. ASKED IF SOMEONE FROM FAMILY COULD COME STAY WITH HIM, OR COME OVER AND HELP DAILY OR IF THEY CAN TAKE HIM HOME WITH THEM. SON DENIES THIS AVAILABILITY. STATES PATIENT HAS SEVEN KIDS AND HE IS THE ONLY ONE WHO HELPS. HE STATES HE COMES OVER EVERYDAY AND MAKES HIM FOOD, GIVES HIS MEDICATIONS AND CHECKS ON HIM. I ASKED IF HE IS GOING TO CONTINUE THAT, HE STATES "WELL I HAVE THREE DOGS I HAVE TO LET OUT OF THE PEN SEVERAL TIMES A DAY AT MY PLACE. I CANT BE OVER ALL THE TIME. MY DAD CALLS ME NON-STOP TO COME OVER". AGAIN I EXPLAINED THAT IF PATIENT WAS IN ASSISTED LIVING HE COULD JUST COME TO [facility] AND NOT BE RESPONSIBLE FOR THE REST. HE STATES "BUT THEY WILL TAKE ALL HIS MONEY". AGAIN, I POINTED OUT THAT IT MIGHT BE WORTH SPENDING THE MONEY IF HE IS WELL CARED FOR AND SAFE. I TOLD THEM THAT WE RECOMMEND PATIENT GO TO ASSISTED LIVING, OR WITH FAMILY UNTIL CAREGIVERS CAN BE HIRED AGAIN. EXPLAINED THAT WE WILL BE DISCHARGING HIM TODAY OR TOMORROW AND IT IS UP TO HIM TO HELP PATIENT WITH THIS POA AND CLOSEST FAMILY. HE STATES HE WILL DO THAT. UPDATED STAFF.
--- NOTE | 2020-05-19 11:53 | NUR ---
CALLED [facility] AND SPOKE WITH TOM FROM APS IN [place] SHE IS COVERING TODAY. REPORTED MY CONCERN THAT THIS PATIENT NEEDS CARE AND CONVERSATIONS I HAD WITH SON. THERE IS AN OPEN CASE ON THIS ALREADY WITH [facility] AND REF# [id number]. TOM WILL UPDATE JASIEL AND THEY WILL FOLLOW UP.
--- NOTE | 2020-05-19 12:19 | NUR ---
PT HAS BEEN UP TO THE BATHROOM A FEW TIMES THIS AM INCONTENT OF URINE, SON IS AT THE BEDSIDE AND CONTIOUES TO MAKE RUDE REMAKS TO SQL REPORT WRITER. PT IS ABLE TO ABLULATE WITH MINUAL ASSISTANCE WHILE USING HIS FWW.
--- NOTE | 2020-05-19 12:48 | NUR ---
PT IS SITTING IN CHAIR, TALKING TO SON. SON IS VERY OUTSPOKEN AND IS SOMEWHAT FRUSTRATEDIN NOT BEING ABLE TO GET CG FOR PT UPON DC. FEELS EVERYBODY HAS "LIED" TO HIM FROM AGENCIES OUTSIDE [facility]. WORKED TO CALM SITUATION, GAVE BOTH ENCOURAGEMENT AND HAD PRAYER WOTH BOTH
--- NOTE | 2020-05-19 13:00 | NUR ---
PT ATE ABOUT 50% OF LUNCH PER HIS SON REPORT AND THAN HE ATE THE REST. THE PATIENTS SON STATES " LOOK AT THAT PRETTY NURSE" ASKED HIM TO CALL ME BY MY NAME AND NOT ANTHING ELSE.
--- NOTE | 2020-05-19 14:48 | NUR ---
PT BACK IN BED APPEARS TO BE SLEEPING AT THIS TIME.
--- NOTE | 2020-05-19 15:54 | NUR ---
PT CONTIOUES TO SLEEP AT THIS TIME, IN BED BED ALARM ON AT THIS TIME.
--- NOTE | 2020-05-19 16:45 | NUR ---
PT REMAINS ASLEEP AT THIS TIME. CALL LIGHT WITHIN REACH AND BED IN THE LOWEST POSITION.
--- NOTE | 2020-05-19 19:20 | NUR ---
SHIFT REPORT RECEIVED FROM LILIBETH ESTRELLA. PT RESTING IN BED, EYES CLOSED. RR EVEN, UNLABORED. NC @ 2L. BED ALARM ON, CALL LIGHT IN REACH, DOOR OPEN.
--- NOTE | 2020-05-19 19:30 | NUR ---
ANXIOUS, ESILY REDIRECTED, O2 IN PLACE, HELPS WITH REPOSITIONING, USED URINAL, ATTENDS IN PLACE, FLUIDS AT BEDSIDE, USING CALL IGHT APPROPRIATELY. DENIES C/O PAIN
--- NOTE | 2020-05-19 21:00 | NUR ---
PT CALLS FOR HELP. STATES HE DOESN'T KNOW WHAT HE NEEDS, CONFUSED, REPEATING SELF. SPO2 94% ON 2L NC. PT REASSURED THAT HE IS SAFE AND HIS OXYGEN LOOKS GOOD. BED ALARM ON, DOOR OPEN. CALL LIGHT IN REACH.
--- NOTE | 2020-05-19 21:14 | EKG ---
[facility] [address] [place] [address] Signed Atrial-paced rhythm with prolonged AV conduction Left bundle branch block Abnormal ECG When compared with ECG of 09-APR-2020 09:49, No significant change was found Confirmed by DORA ALEXANDRE DO ([id number]) on 05/19/2020 9:14:31 PM Electronically Signed By: DORA ALEXANDRE DO 05/19/20 2114 PATIENT NAME: JACKLYN PATEL Electrocardiogram DATE OF : 31 PHYSICIAN: DORA ALEXANDRE DO REPORT #: [id number] REPORT IS CONFIDENTIAL AND NOT TO BE RELEASED WITHOUT AUTHORIZATION
--- NOTE | 2020-05-19 23:12 | NUR ---
ASSESSMENT COMPLETED. IV CDI, WNL, FLUSHED WELL. NC @ 2L. LUNGS CLEAR, BOWEL TONES ACTIVE BACK AND BLE PAIN 6/10, PRN TYLENOL PROVIDED. PT IS CONFUSED AND REPEATS HIMSELF OFTEN. PT REQUESTS SOMETHING FOR SLEEP, SLEEP MED PROVIDED. BLE 1+ EDEMA, WARM, ADALGISA. SCATTERED BRUISING AND ABRASIONS NOTED. ABD SOFT, NONTENDER. CMS INTACT X 4 EXTREMITIES. NO OTHER NEEDS AT THIS TIME. CALL LIGHT IN REACH, BED ALARM ON, DOOR OPEN.
--- NOTE | 2020-05-20 01:00 | NUR ---
PT RESTING IN BED, EYES CLOSED. RR EVEN, UNLABORED. BED ALARM ON, CALL LIGHT IN REACH, DOOR OPEN.
--- NOTE | 2020-05-20 03:32 | NUR ---
PT RESTING IN BED, EYES CLOSED. RR EVEN, UNLABORED. BED ALARM ON, CALL LIGHT IN REACH, DOOR OPEN.
--- NOTE | 2020-05-20 05:15 | NUR ---
PT REPOSITIONED IN BED. ASSESSMENT COMPLETED. NC @ 2L. LUNGS CLEAR, BOWEL TONES ACTIVE. BLE EDEMA 1+, ADALGISA. CMS INTACT. IV WNL. SCATTERED BRUISING AND ABRASIONS NOTED. PT CONFUSED TO TIME, EVENTS, REPEATS SELF OFTEN. NO OTHER NEEDS AT THIS TIME. CALL LIGHT IN REACH.
--- NOTE | 2020-05-20 07:30 | NUR ---
BEDSIDE HANDOFF REPORT RECEIVED FROM MACHINE CLEANER RN. PT RESTING IN BED. PT DENIES NEEDS AT THIS TIME.
--- NOTE | 2020-05-20 08:21 | NUR ---
SPOKE WITH PATIENT IN ROOM. PATIENT PLEASANT. IS UP IN CHAIR EATING BREAKFAST ON OWN. ASKED ABOUT DISCHARGE PLAN. EXPLAINED THAT WE ARE HIGHLY RECOMMENDING HE GO TO ASSISTED LIVING SITUATION WHERE HE HAS CAREGIVERS 13/05 AVAILABLE. EXPLAINED HE DOES NOT HAVE CAREGIVERS IN PLACE IF HE RETURNS HOME TO HIS APARTMENT. DISCUSSED THAT HE IS A FALL RISK AND HE CLEARLY NEEDS HELP WITH ADL'S AND IADL'S AND THIS CAN BE DONE AT [facility]. AGAIN WENT OVER OPTIONS HERE IN [place]OWN. ASKED IF HE HAS OTHER ADULT CHILDREN THAT CAN HELP. PATIENT DOES UNDERSTAND AND ALTHOUGH HE HAS MEMORY ISSUES. HE CANNOT REMEMBER THE NAMES OF HIS OTHER KIDS, OTHER THAN JACKLYN. HE STATES HE MIGHT BE ABLE TO GO STAY WITH A DAUGHTER, HOWEVER, CANNOT REMEMBER HER NAME. THEN GOES BACK TO TELL ME HE HAS HIS APT PAID UP THROUGH NEXT MONTH. WHEN ASKED POINT BLANK IF HE WANTS ME TO CALL ASSISTED LIVING PLACE AND TALK WITH [facility] ABOUT THEIR PAYING. HE STATES THAT HE WANTS TO GO BACK TO APARTMENT.
--- NOTE | 2020-05-20 08:30 | NUR ---
PT SITTING IN CHAIR, EATING BREAKFAST. PT ALERT AND ORIENTED TO ALL BUT DATE. PT ON 2L NC, LUNG SOUNDS CLEAR, DENIES SOB. IV CATH FLUSHED, LEAKING UNABLE TO INFUSE ROCEPHIN. PT TOLERATIGN 2G NA DIET, DENIES NAUSEA, BOWEL TONES ACTIVE. PT WITH TRACE EDEMA IN BLE, ADALGISA IN COLOR, CMS INTACT. VSS. PT DENIES OTHER NEEDS AT THIS TIME, CALL LIGHT WITHIN REACH.
--- NOTE | 2020-05-20 09:45 | NUR ---
PATIENTS SON IN THE ROOM WITH HIM. SPOKE WITH THEM BOTH. DISCUSSED THAT I RECOMMEND ASSISTED LIVING SO PATIENT WOULD HAVE CAREGIVERS AROUND THE CLOCK. ASKED IF THEY WOULD LIKE ANY INFORMATION AND HELP LOOKING INTO THIS. PATIENT WAS PLEASANT BUT DEFERS TO SON. SON STATES "[facility] CAN'T JUST GO BACK IN?" I EXPLAINED AGAIN THAT THEY HAVE SAID THEY HAVE DISCHARGED PATIENT AND ARE NOT AVAILABLE. HE THEN STARTED TALKING ABOUT THAT HE HAS CALLED THE HEAD OF THAT COMPANY. I EXPLAINED THAT HE WILL HAVE TO DEAL WITH THAT. MY FOCUS IS ON WHAT TO DO RIGHT NOW. THEN HE STATES "YOU SHOULDN'T HAVE EVEN HAD THE RIGHT TO CALL THEM". I STATED THAT IT IS PART OF MY FOLLOW UP WITH ASSESSMENTS TO DETERMINE HOW MUCH HELP A PATIENT HAS AND SEE IF IT MEETS THE CURRENT NEED. HE THEN STATES "IT SHOULD BE UP TO YOU TO FIND A CAREGIVER FOR HIM WHEN HE GOES HOME". I EXPLAINED THAT IS NOT OUR SERVICE. THAT WE HELP WITH GIVING PATIENT AND FAMILY RESOURCES, BUT FOR PRIVATE HOMES, THE PATIENT AND FAMILY ARE RESPONSIBLE FOR HIRING THAT HELP. I STATED IF HE WANTS TO PURSUE ASSISTED LIVING WE CAN HELP HIM WITH WHATS AVALABLE. HE STATES "NO HE WANTS TO STAY IN HIS APARTMENT AND I AM CARING FOR HIM". I STATED THAT WAS FINE, WHATEVER THEY CHOOSE IS WHAT WE WILL GO WITH. I ASKED PATIENT IF THAT WAS OK, GOING BACK HOME AND HAVING HIS SON HELP HIM. HE STATES "YES, HE HELPS ME ALL THE TIME".
--- NOTE | 2020-05-20 10:14 | NUR ---
DR. ALEXANDRE NOTIFIED OF IV LEAKING AND UNABLE TO INFUSE ROCEPHIN, DR. ALEXANDRE ORDER TO NOT INSERT ANOTHER IV AT THIS TIME.
[2020-05-20] MEDS ORDERED: DOXYCYCLINE HY100 MG PO (10:25)
--- NOTE | 2020-05-20 11:41 | NUR ---
PT SITTING IN CHAIR, ALERT AND FRIENDLY. PT IS SLIGHTLY AMBLER, ABLE TO CARRY ON CONVERSATION. SAID HE SLEPT REASONABLY WELL. PT IS PLEASANT, QUOTES SCRIPTURE TO ME. GAVE BLESSING, GAVE SAME TO ME
== END 2020-05-20 11:31 | disposition home or self-care (01) | DRG 603 ==
LOC: ED 09:35 → MS 12:59
PROVIDERS: ADMIT Internal Medicine
DX: L03.115 Cellulitis of right lower limb (principal); I50.32 Chronic diastolic (congestive) heart failure; I48.0 Paroxysmal atrial fibrillation; J44.9 Chronic obstructive pulmonary disease, unspecified; I25.10 Atherosclerotic heart disease of native coronary artery without angina pectoris; E78.5 Hyperlipidemia, unspecified; E03.9 Hypothyroidism, unspecified; G30.9 Alzheimer's disease, unspecified; F02.80 Dementia in other diseases classified elsewhere, unspecified severity, without behavioral disturbance, psychotic disturbance, mood disturbance, and anxiety; Z79.01 Long term (current) use of anticoagulants; Z95.0 Presence of cardiac pacemaker
CPT/HCPCS: 36415; 71045; 80053; 81001; 83605; 83735; 83880; 84484; 85025; 85610; 87040; 93005; 93010; 94760; 97162; 99284-25; C9803; J0696; U0002

== ENCOUNTER 2020-06-28 13:23 | Emergency (ER) | payer MEDICARE, OTHER ==
[~2020-06-28] VITALS: Ht 167.6 cm; Wt 97.5 kg
--- OUTSIDE RECORDS SUMMARY | ~2020-06-28 | XMS | Encounter Summary ---
Demographics + + + | Address | [address] | | | [place] [address] | + + + | Home Phone | | + + + | Preferred Language | Unknown | + + + | Marital Status | | + + + | Orthodox Affiliation | 1061 | + + + | Race | White | + + + | Ethnic Group | Not or | + + + Author + + + | Author | [facility] | | | and [place] | + + + | Organization | [facility] | | [...] Team Providers + +------+ + | Care Dust Collector Ore Crushing Name | Role | Phone | + [...] | 10/19/ | Implant | [facility] [place] | Cruzito Bird, | Remote Device | | 2017 | Monitor | CARDIOLOGY [address] | Interrogation | | | | [place], | [place], | (Primary Dx); | | | | [place] [address] | [place] [address] | Pacemaker Dual | | | | [phone] | [phone] | Chamber, MRI | | | | | | compatible, 05/14/17 | | | | | | [facility]; | | | | | | [...] encounter Procedure Notes Cruzito Bird MD - 10/19/2018 11:59 PM PSTAssociated Order(s): DEVICE INTERROGATION- R EMOTEProcedure(s): DEVICE INTERROGATION- REMOTEPre-Procedure Diagnose(s): Pacemaker reprogra mming/check; Pacemaker; Tachycardia-bradycardia syndrome (HCC)Date of Remote Interrogation: 07/22/2018 Refer to Paceart documentation and remote PDF scanned into [facility] [facility] for remote interrogation re sults. Data collected by Yareli Molina RN Presenting rhythm: atrial paced ventricular sensed rate 63-69 beats. 0 mode switch episodes accounting for 0% of the time. No episodes. PVC singles 56 PVC singles 37 /month PVC runs 0 Histogram fair. Battery longevity 10.4 years. Apparent normal and stable device function. Device interrogation due in office in May 2019. Patient notified. documented in this encounter Plan of Treatment +--------+ + + + + | Date | Type | Specialty | Care Team | Description | +--------+ + + + + | 07/20/ | Implant | Cardiology | Cruzito Bird, | Remote Device | | 2019 | Monitor | | MD Leon Grant | Interrogation | | | | | 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 Data collected by Yareli Rivas | | | SAMEER Molina Presenting rhythm: atrial paced ventricular sensed rate | | | 63-69 beats.0 mode switch episodes accounting for 0% of the time.No | | | episodes. PVC singles 56 PVC singles 37 /monthPVC runs | | | 0 Histogram fair. Battery longevity 10.4 | | | years.Apparent normal and stable device function.Device interrogation | | | due in office in May 2019.Patient notified. | | |No episodes. | | |PVC singles 56 PVC singles 37 /month | | |PVC runs 0 | | |Histogram fair. Battery longevity 10.4 years. | | |Apparent normal and stable device function. | | |Device interrogation due in office in May 2019. | | |Patient notified. | | | | | + + [...]
--- OUTSIDE RECORDS SUMMARY | ~2020-06-28 | XMS | Encounter Summary ---
Demographics + + + | Address | [address] | | | [place] [address] | + + + | Home Phone | | + + + | Preferred Language | Unknown | + + + | Marital Status | | + + + | Holiness Affiliation | 1061 | + + + | Race | White | + + + | Ethnic Group | Not or | + + + Author + + + | Author | [facility] | | | and [place] | + + + | Organization | [facility] | | | and [...] Team Providers + +------+ + | Care Preschool Assistant Principal Name | Role | Phone | + [...] | 10/19/ | Implant | [facility] [place] | Cruzito Bird, | Remote Device | | 2019 | Monitor | CARDIOLOGY [address] [place] [place] | Interrogation | | | | [place], | [place], | (Primary Dx); | | | | [place] [address] | [place] [address] | Pacemaker Dual | | | | [phone] | Chamber, MRI | | | | | | compatible, 05/14/17 | | | | | | [facility] [place]; | | | | | | Tachycardia-bradycar [...] Pacemaker; Tachycardia-bradycardia syndrome (HCC)Date of Remote Interrogation: 07/26/19 Refer to [facility] documentation and remote PDF scanned into [facility] for remote interrogation re sults. Data collected by Nancy Dougherty, RN, RN Presenting rhythm: sinus rhythm atrial paced ventricular sensed between 82-91 beats. 0 mode switch episodes accounting for 0% of the time. No episodes. PVC singles 10 PVC singles 75/month PVC runs 0 PVC runs 0/month Histogram good. Battery longevity 9.9-10.2 years. Apparent normal and stable device function. Device interrogation in office 07/27/19 Patient notified. documented in this encounter Plan of Treatment +--------+ + + + + | Date | Type | Specialty | Care Team | Description | +--------+ + + + + | 07/20/ | Implant | Cardiology | Cruzito Bird, | Remote Device | | 2019 | Monitor | | [address] [facility] | Interrogation | | | | | [place], | (Primary Dx); | | | | | [place] [address] | Pacemaker Dual | | | | | [phone] | Chamber, MRI | | | | | | compatible, 05/14/17 | | | | | | [facility]; | | | | | | 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) | +--------+ + + + + | 01/05/ | Office | Cardiology | Emely Gabriel, | | | 2020 | Visit | | DOG CONTROL OFFICER [address] | | | | | | [place] | | | | | | [address] | | | | | | | [...] | Cruzito JONES | | MD Marge 07/30/2019 6:16Date of Remote Interrogation: | | | 07/26/19 Refer to [facility] documentation and remote PDF scanned into | | | [facility] for remote interrogation results. Data collected by Nancy Rossi | | | SAMEER Dougherty, RN Presenting rhythm: sinus rhythm atrial paced | | | ventricular sensed between 82-91 beats.0 mode switch episodes | | | accounting for 0% of the time.No episodes. PVC singles 10 | | | PVC singles 75/monthPVC runs 0 PVC runs | | | 0/monthHistogram good. Battery longevity 9.9-10.2 years.Apparent | | | normal and stable device function.Device interrogation in office | | | 07/27/19Patient notified. | | |PVC singles 10 PVC singles 75/month | | |PVC runs 0 PVC runs 0/month | | |Histogram good. Battery longevity 9.9-10.2 years. | | |Apparent normal and stable device function. | | |Device interrogation in office 07/27/19 | | |Patient notified. | | | [...]
--- OUTSIDE RECORDS SUMMARY | ~2020-06-28 | XMS | Encounter Summary ---
Demographics + + + | Address | [address] | | | [place] [address] | + + + | Home Phone | | + + + | Preferred Language | Unknown | + + + | Marital Status | | + + + | Yazdanism Affiliation | 1061 | + + + | Race | White | + + + | Ethnic Group | Not or | + + + Author + + + | Author | [facility] | | | and [place] | + + + | Organization | [facility] | | | [...] Team Providers + +------+ + | Care Tractor Operator Laser Leveling Name | Role | Phone | + [...] | 04/19/ | Implant | [facility] [place] | Cruzito Bird, | Remote Device | | 2020 | Monitor | CARDIOLOGY [address] [place] | Interrogation | | | | [place], | [place], | (Primary Dx); | | | | [place] [address] | [place] [address] | Pacemaker Dual | | | | [phone] | Chamber, MRI | | | | [...] Paceart documentation and remote PDF scanned into [facility] for remote interrogation re sults. Data collected [...] | 2019 | Monitor | | [address] [facility] | Interrogation | | | | | 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 Data collected by [...]
--- OUTSIDE RECORDS SUMMARY | ~2020-06-28 | XMS | Encounter Summary ---
Demographics + + + | Address | [address] | | | [place] [address] | + + + | Home Phone | | + + + | Preferred Language | Unknown | + + + | Marital Status | | + + + | Amish Affiliation | 1061 | + + + | Race | White | + + + | Ethnic Group | Not or | + + + Author + + + | Author | [facility] | | | and [place] | + + + | Organization | [facility] | | | [...] Team Providers + +------+ + | Care Event Producer Name | Role | Phone | + +------+ + PCP | Unavailable | + +------+ + Encounter Details +--------+ + + + + | Date | Type | Department | Care Team | Description | +--------+ + + + + | 12/04/ | Hospital | [facility] GENER[facility] | Conversion | Aortic valve | | 2004 | Encounter | CONVERSION [address] | Transaction, | disorder | | | | [address] | Provider Unknown | | | | | [place], [place] | | | | | | [address] | | | | | | [phone] | | | +--------+ + + + [...] Dx); | | | | | [place] [address] | Pacemaker Dual | | | | | [phone] | Chamber, MRI | | | | | | compatible, 05/14/17 | | | | | | [facility]; | | | | | | 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) | +--------+ + + + + | 01/05/ | Office | Cardiology | Emely Gabriel, | | | 2020 | Visit | | BRAKE REPAIRER [address] | | | | | | [place] | | | | | | [address] | | | | | | | [...]
--- OUTSIDE RECORDS SUMMARY | ~2020-06-28 | XMS | Encounter Summary ---
Demographics + + + | Address | [address] | | | [place] [address] | + + + | Home Phone | | + + + | Preferred Language | Unknown | + + + | Marital Status | | + + + | Orthodoxy Affiliation | 1061 | + + + | Race | White | + + + | Ethnic Group | Not or | + + + Author + + + | Author | [facility] | | | and [place] | + + + | Organization | [facility] | | [...] Team Providers + +------+ + | Care Dry Mop Maker Name | Role | Phone | + +------+ + PCP | Unavailable | + +------+ + Encounter Details +--------+ + + + + | Date | Type | Department | Care Team | Description | +--------+ + + + + | 07/24/ | Hospital | [facility] | Mauricio Goldberg | | | 2000 | Encounter | MED CTR GENERIC OP | MD [address] | | | | | CONV DEPT [address] | [place] | | | | | [place], | [place] [address] | | | | | [place] [address] | [phone] | | | | | [phone] | | | +--------+ + + + [...] Interrogation | | | | | [place], | (Primary Dx); | | | | | [place] [address] | Pacemaker Dual | | | | | [phone] | Chamber, MRI | | | | | | compatible, 05/14/17 | | | | | | [facility]; | | | | | | 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) | +--------+ + + + + | 01/05/ | Office | Cardiology | Emely Gabriel, | | | 2020 | Visit | | MILIEU COUNSELOR [address] | | | | | | [place] | | | | | | [address] | | | | | | | | +--------+ + + + + documented as of this encounter Visit Diagnoses Not on filedocumented in this encounter"
--- OUTSIDE RECORDS SUMMARY | ~2020-06-28 | XMS | Encounter Summary ---
Demographics + + + | Address | [address] | | | [place] [address] | + + + | Home Phone | | + + + | Preferred Language | Unknown | + + + | Marital Status | | + + + | Church Affiliation | 1061 | + + + [...] Team Providers + +------+ + | Care Booking Prizer Name | Role | Phone | + +------+ + PCP | Unavailable | + +------+ + Encounter Details +--------+ + + + + | Date | Type | Department | Care Team | Description | +--------+ + + + + | 12/18/ | Hospital | [facility] GENERIC OP | Conversion | | | 2004 | Encounter | CONVERSION [address] | Transaction, | | | | | [address] | Provider Unknown | | | | | [place], [place] | [phone] | | | | | [address] | | | | | | [phone] | | | +--------+ + + + [...] 2020 | Monitor | | MD [address] | Interrogation | | | | | [place], | (Primary Dx); | | | | | [place] [address] | Pacemaker Dual | | | | | [phone] | Chamber, MRI | | | | [...]
--- OUTSIDE RECORDS SUMMARY | ~2020-06-28 | XMS | Encounter Summary ---
Demographics + + + | Address | [address] | | | [place] [address] | + + + | Home Phone | | + + + | Preferred Language | Unknown | + + + | Marital Status | | + + + | Jewish Affiliation | 1061 | + + + [...] Team Providers + +------+ + | Care Body Technician/Painter Name | Role | Phone | + +------+ + | Antonio Paulino MD | PCP | | + +------+ + Encounter Details +--------+ + + + + | Date | Type | Department | Care Team | Description | +--------+ + + + + | 05/18/ | Orders Only | [facility] | Provider, | | | 2018 | | SYSTEM GENERIC OP | [address] | | | | | CONVERSION [address] | [place] | | | | | [address] [place] | [place] [address] | | | | | [address] | | | | | | [phone] | | | +--------+ + + + [...] Monitor | | [facility] | Interrogation | | | | | [place], | (Primary Dx); | | | | | [place] [address] | Pacemaker Dual | | | | | [phone] | Chamber, MRI | | | | [...] [place] | | | | | | [id number] | | | | | | | | +--------+ + + + + documented as of this encounter Visit Diagnoses Not on filedocumented in this encounter"
--- OUTSIDE RECORDS SUMMARY | ~2020-06-28 | XMS | Encounter Summary ---
Demographics + + + | Address | [address] | | | [place] [address] | + + + | Home Phone [...] Team Providers + +------+ + | Care Core Placer Name | Role | Phone | + +------+ + | Antonio Paulino MD | PCP | | + +------+ + Reason for Visit + + + | Reason | Comments | + + + | Device Check | | | (In-office) | | + + + Encounter Details +--------+ + + + + | Date | Type | Department | Care Team | Description | +--------+ + + + + | 07/27/ | Procedure | [facility] [place] | Cruzito Bird, | Pacemaker | | 2019 | visit | CARDIOLOGY [address] [place] | reprogramming/check | | | | [place], | [place], | (Primary Dx); | | | | [place] [address] | [place] [address] | Pacemaker Dual | | | | [phone] | Chamber, MRI | | | | [...] encounter Procedure Notes Cruzito Bird MD - 07/27/2019 11:00 AM PDTAssociated Order(s): DEVICE INTERROGATIONPro cedure(s): DEVICE INTERROGATIONPre-Procedure Diagnose(s): Pacemaker reprogramming/check; Pac emaker; Tachycardia-bradycardia syndrome (HCC) PATIENT NAME: Johnny Siddiqi : 1935: AGE: 84 y.o. Pacemaker Evaluation Report July 27, 2019 Reason for evaluation: routine Indication for pacemaker: Tachycardia-bradycardia syndrome (HCC) (I49.5, 427.81); Pacemaker (Z95.0, V45.01); Pacemak er reprogramming/check (Z45.018, V53.31) Patient was seated and/or reclined and device was interrogated. Pacemaker parameters, batte ry status, percentages pacing and significant arrhythmias were reviewed. Heart rate histogra ms were assessed for adequate heart rate response and any alerts reviewed. Appropriate lead impedance testing was performed. Pacing impedances were reviewed for any significant changes . Sensing tests were performed by decreasing LRL. Adequacy of pacing thresholds were tested by increasing LRL for each lead and recorded for loss of capture. Final outputs were assesse d for adequate safety margins. Please see the scanned [facility] report and device PDF for further details. Data collected by Nancy Dougherty RN, RN Underlying rhythm: asystole no intrinsic P or R wave down to 30 beats. 0 mode switch episodes accounting for 0% of the time. No episodes. PVC singles 2 PVC runs 0 Histogram good. Battery longevity 9.9-10.2 years. Normal and stable device function. Atrial threshold is checked via running AAI [address] able at 1.0 at 0.4ms both manually and auto tested. Retrograde conduction was noted as sense d on the atrial lead with PVAB at 80 so it is left at 150ms. Quarterly remote monitoring. Device interrogation due in office in December 2019. documented in this encounter Plan of Treatment +--------+ + + + + | Date | Type | Specialty | Care Team | Description | +--------+ + + + + | 07/20/ | Implant | Cardiology | RearinaCruzito, | Remote Device | | 2019 | Monitor | | [address] | Interrogation | | | | | [place], | (Primary Dx); | | | | | [place] [address] | Pacemaker Dual | | | | | [phone] | Chamber, MRI | | | | | | compatible, 05/14/17 | | | | | | [facility]; | | | | | | 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) | +--------+ + + + + | 01/05/ | Office | Cardiology | Emely Gabriel, | | | 2020 | Visit | | NUCLEAR CHEMISTRY TECHNICIAN [address] | | | | | | St [place], [place] | | | | | | [address] | | | | | | | | +--------+ + + + + documented as of this encounter Procedures + +--------+ + + + | Procedure Name | Priori | Date/Time | Associated Diagnosis | Comments | | | ty | | | | + +--------+ + + + | DEVICE INTERROGATION | Routin | 07/27/2019 | Pacemaker | Results for this | | | e | 11:00 AM | reprogramming/check | procedure are in the | | | | PDT | Pacemaker Dual | results section. | | | | | Chamber, MRI | | | | | | compatible, 05/14/17 | | | | | | [facility] | | | | | | 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) | | + +--------+ + + + documented in this encounter Results Device Interrogation (07/27/2019 11:00 AM PDT) + + + | Narrative | Performed At | + + + | Cruzito Bird MD 07/27/2019 12:08 PATIENT NAME: | [facility] | | Johnny Siddiqi : 1935: AGE: 84 y.o. Pacemaker | | | Evaluation Report July 27, 2019 Reason for evaluation: | | | routine Indication for pacemaker: Tachycardia-bradycardia syndrome | | | (HCC) (I49.5, 427.81); Pacemaker (Z95.0, V45.01); Pacemaker | | | reprogramming/check (Z45.018, V53.31) Patient was seated and/or | | | reclined and device was interrogated. Pacemaker parameters, battery | | | status, percentages pacing and significant arrhythmias were | | | reviewed. Heart rate histograms were assessed for adequate heart | | | rate response and any alerts reviewed. Appropriate lead impedance | | | testing was performed. Pacing impedances were reviewed for any | | | significant changes. Sensing tests were performed by decreasing LRL. | | | Adequacy of pacing thresholds were tested by increasing LRL for | | | each lead and recorded for loss of capture. Final outputs were | | | assessed for adequate safety margins. Please see the scanned | | | [facility] report and device PDF for further details. Data collected | | | by Nancy Dougherty RN, RN Underlying rhythm: asystole no intrinsic P | | | or R wave down to 30 beats. 0 mode switch episodes accounting for | | | 0% of the time. No episodes. PVC singles 2 | | | PVC runs 0 Histogram good. Battery | | | longevity 9.9-10.2 years. Normal and stable device function. Atrial | | | threshold is checked via running AAI 80 and is stable at 1.0 at | | | 0.4ms both manually and auto tested. Retrograde conduction was noted | | | as sensed on the atrial lead with PVAB at 80 so it is left at | | | 150ms. Quarterly remote monitoring. Device interrogation due in | | | office in December 2019. | | + + + + +---------+ + + | Performing | Address | City/State/Zipcode | Phone Number | | Organization | | | | + +---------+ + + | [facility] | | | | + +---------+ + + documented in this encounter Visit Diagnoses + + | Diagnosis | + + | Pacemaker reprogramming/check - Primary Fitting and adjustment of cardiac [...]
--- OUTSIDE RECORDS SUMMARY | ~2020-06-28 | XMS | Encounter Summary ---
Demographics + + + | Address | [address] | | | [place] [address] | + + + | Home Phone | | + + + | Preferred Language | Unknown | + + + | Marital Status | | + + + | Mormonism Affiliation | 1061 | + + + | Race | White | + + + | Ethnic Group | Not or | + + + Author + + + | Author | [facility] | | | and [place] | + + + | Organization | [facility] | | | [...] Team Providers + +------+ + | Care Case Advocate Name | Role | Phone | + [...] | +--------+ + + + + | 05/08/ | Anesthesia | [facility] | Miguel Galicia MD | | | 2017 | Event | MED CTR MP INTRA OP | [address] | | | | | [address] | [place] | | | | | [place] | [address] | | | | | [address] | | | | | | [phone] | | | +--------+ + + + + Anesthesia Record + + + + + | Procedure Name | Responsible | Anesthesia Start | Anesthesia Stop Time | | | Anesthesiologist | Time | | + + + + + | EGD with Anesthesia | Miguel Galicia MD | 05/08/17923 | 05/08/17 0950 | | (N/A Mouth) | | | | + + + + + +----+---+ + + | Da | T | Event | Comment | | te | i | | | | | m | | | | | e | | | +----+---+ + + | 07 | 0 | | | | /1 | 9 | | | | 9/ | 2 | | | | 20 | 2 | | | | 17 | | | | +----+---+ + + | | 0 | An Checkout | Pre-use anesthesia machine/equipment checkout. | | | 9 | | | | | 2 | | | | | 4 | | | +----+---+ + + | | 0 | An Start | Reassessment prior to anesthesia induction/procedure. | | | 9 | | | | | 2 | | | | | 4 | | | +----+---+ + + | | 0 | Pre-Procedu | | | | 9 | ral Timeout | | | | 3 | Completed | | | | 0 | | | +----+---+ + + | | 0 | First | | | | 9 | Inc/Proc St | | | | 3 | | | | | 1 | | | +----+---+ + + | | 0 | An | | | | 9 | Induction | | | | 3 | | | | | 3 | | | +----+---+ + + | | 0 | An Stop | Patient handed off to recovery nurse. | | | 5 | | | | | 0 | | | +----+---+ + + +------+ | Meds | +------+ + +--------+ | Name | Total | + +--------+ | propofol | 100 mg | + +--------+ | lidocaine 1% | 2 mL | + +--------+ | LR (Infusion) | 200 mL | + +--------+ + + | Name | + + | O2 Flow Rate (L/Min) | + + + + | No blood administrations on file. | + + +--------+ + + + | Type | Details | Placement | Removal | +--------+ + + + | Wound | 03/16/16; 1245; Left; ken; | 03/16/16 1245 by | 05/16/17 1405 by | | | ulceration, venous; 05/16/17; | Mary Cortes RN | Emily Price RN | | | 1405 | | | +--------+ + + + | Periph | 05/08/17; 0600; Left; Forearm; | 05/08/17599 by | 05/09/171999 by | | eral | [id number] catheter system; | Xavier Bhardwaj, | Joanna Salazar, | | IV | 22 gauge; removed per | [employer]ified Natural [employer] Specialist | RN | | | policy/procedure, site | | | | | symptomatic, catheter/device | | | | | intact, other (see comments); lg | | | | | area of skin tore off w removal | | | | | of site drsg; changed to | | | | | different LDA type; 05/09/17; | | | | | 1999 | | | +--------+ + + + documented in this encounter Social History + +-------+ +--------+------+ | Tobacco [...] + + documented as of this encounter OR Notes Anesthesia Postprocedure Evaluation - Miguel Galicia MD - 05/08/2017 11:19 AM PDTFormattin g of this note might be different from the original. ANESTHESIA POSTANESTHESIA EVALUATION Johnny Siddiqi 81 y.o. male 1935 [id number] Procedure(s) EGD with Anesthesia (N/A Mouth) Cooperates? Yes Mental Status Performs simple tasks. Respiratory Satisfactory - Airway patent (self maintained). Cardiovascular Satisfactory - Blood pressure and heart rate acceptable Temperature Satisfactory Pain Satisfactory N/V Control Satisfactory Hydration Satisfactory - No signs of dehydration Complications None apparent Vitals: 05/08/17 1015 05/08/17 1043 05/08/17 1045 BP: 109/54 108/58 Pulse: 107 107 110 Temp: Resp: 15 18 SpO2: 97% 95% 92% Electronically signed by Miguel Galicia MD 05/08/2017 11:19 PEACEHEALTHElectronically signed by Miguel Galicia MD at 05/08 11:19 AM PDTAnesthesia Preprocedure Evaluation - Miguel Galicia MD - 05/08/2017 9:19 AM PDT ANESTHESIA PREANESTHESIA EVALUATION Johnny Siddiqi 81 y.o. male 1935 [id number] Procedure(s): EGD with Anesthesia (N/A Mouth) Medical history, anesthesia, medications, allergy, NPO status verified histories reviewed. Review of Systems / Med History Pulmonary No acute pulmonary concerns. Psychology Negative except where noted below. Physical Exam Airway MP II, TM >3 FB, Mouth opening >2 FB. Neck: full ROM, extends >30 degrees. Jaw protrus ion normal. Dental Grossly normal except where noted below.; (+) missing teeth. CV Rhythm regular. Rate Normal and tachycardia. (-) murmur. Pulm Clear to auscultation bilaterally. (+) decreased breath sounds. Neuro Grossly normal. Anesthesia Plan ASA 4 Type: TIVA. Induction: Intravenous. Potential problems: None anticipated. Monitors: Standard ASA monitors. Consent statement:Anesthetic plan, alternatives, risks and benefits discussed with patient. Risks discussed included (but were not limited to): respiratory events, heart problems, . Consenting person understands and agrees to proceed. documented in this enc ounter Plan of Treatment +--------+ + + + + | Date | Type | Specialty | Care Team | Description | +--------+ + + + + | 07/20/ | Implant | Cardiology | RearinaCruzito, | Remote Device | | 2019 | Monitor | | MD [address] | Interrogation | | | | | [place], | (Primary Dx); | | | | | [place] [address] | Pacemaker Dual | | | | | [phone] | Chamber, MRI | | | | | | compatible, 05/14/17 | | | | | | [facility]; | | | | | | 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) | +--------+ + + + + | 01/05/ | Office | Cardiology | Emely Gabriel, | | | 2020 | Visit | | MENTAL HEALTH PROFESSIONAL [address] | | | | | | [place], [place] | | | | | | [address] | | | | | | | | +--------+ + + + + documented as of this encounter Visit Diagnoses Not on filedocumented in this encounter Administered Medications + +---------+ +------+------+------+ | Medication Order | MAR | Action | Dose | Rate | Site | | | Action | Date | | | | + +---------+ +------+------+------+ | lactated ringers (LR) infusion | New Bag | 05/08/20 | | | | | Intravenous, CONTINUOUS PRN, | | 17 9:21 | | | | | Starting Sat05/08/17 at 0921, | | AM PDT | | | | | Anesthesia Intra-op | | | | | | + +---------+ +------+------+------+ +---+---+ | | | +---+---+ + +-------+ +-------+---+---+ | lidocaine (PF) 1% injection | Given | 05/08/20 | 2 mLs | | | | Infiltration, PRN, Starting Sat | | 17 9:33 | | | | | 05/08/17 at 0933, Anesthesia | | AM PDT | | | | | Intra-op | | | | | | + +-------+ +-------+---+---+ +---+---+ | | | +---+---+ + +-------+ +-------+---+---+ | propofol (DIPRIVAN) injection | Given | 05/08/20 | 50 mg | | | | Intravenous, PRN, Starting Wed | | 17 9:34 | | | | | 05/08/17 at 0933, Anesthesia | | AM PDT | | | | | Intra-op | | | | | | + +-------+ +-------+---+---+ +-------+ +-------+---+---+ | Given | 05/08/20 | 50 mg | | | | | 17 9:33 | | | | | | AM PDT | | | | +-------+ +-------+---+---+ +---+---+ | | | +---+---+ documented in this encounter"
--- OUTSIDE RECORDS SUMMARY | ~2020-06-28 | XMS | Encounter Summary ---
Demographics + + + | Address | [address] | | | [place] [address] | + + + | Home Phone | | + + + | Preferred Language | Unknown | + + + | Marital Status | | + + + | Yazidi Affiliation | 1061 | + + + | Race | White | + + + | Ethnic Group | Not or | + + + Author + + + | Author | [facility] | | | and [place] | + + + | Organization | [facility] | | | and [...] Team Providers + +------+ + | Care Risk Assessment Consultant Name | Role | Phone | + [...] | 01/18/ | Implant | [facility] [place] | Cruzito Bird, | Remote Device | | 2020 | Monitor | CARDIOLOGY [address] | Interrogation | | | | [place], | [place], | (Primary Dx); | | | | [place] [address] | [place] [address] | Pacemaker Dual | | | | [phone] | [phone] | Chamber, MRI | | | | [...] Paceart documentation and remote PDF scanned into [facility] for remote interrogation re sults. Data collected [...] | | [address] [facility] | Interrogation | | | | | [place], | (Primary Dx); | | | | | [place] [address] | Pacemaker Dual | | | | | [phone] | Chamber, MRI | | | | | | compatible, 05/14/17 | | | | | | [facility]; | | | | | | 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) | +--------+ + + + + | 03/18/ | Office | Cardiology | Emely Gabriel, | | | 2020 | Visit | | STAFF ACCOUNTANT [address] | | | | | | St [place] [facility] [place] | | | | | | [address] | | | | | | | [...] remote PDF scanned into | | | [facility] for remote interrogation results. Data collected by [...]
--- OUTSIDE RECORDS SUMMARY | ~2020-06-28 | XMS | Encounter Summary ---
Demographics + + + | Address | [address] | | | [place] [address] | + + + | Home Phone | | + + + | Preferred Language | Unknown | + + + | Marital Status | | + + + | Lutheran Affiliation | 1061 | + + + | Race | White | + + + | Ethnic Group | Not or | + + + Author + + + | Author | [facility] | | | and [place] | + + + | Organization | [facility] | | [...] Team Providers + +------+ + | Care Small Parts Assembler Name | Role | Phone | + [...] + + | 12/23/ | Office | [facility]ALK[facility] | Cruzito Bird, | 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, | failure (HCC) | | | | [place] [address] | [place] [address] | (Primary Dx); | | | | [phone] | [phone] | Tachycardia-bradycar | | | | | [...] | Blood Pressure | 130/68 | 12/23/2018 1:56 PM | | | | | PST | | + + + + + | Pulse | 60 | 12/23/2018 1:56 PM | | | | | PST | | + + + + + | Temperature | - | - | | + + + + + | Respiratory Rate | 18 | 12/23/2018 1:56 PM | | | | | PST | | + + + + + | Oxygen Saturation | - | - | | + + + + + | Inhaled Oxygen | - | - | | | Concentration | | | | + + + + + | Weight | 85.3 kg (188 lb 0.8 | 12/23/2018 1:56 PM | | | | oz) | PST | | + + + + + | Height | 167.6 cm (5' 6") | 12/23/2018 1:56 PM | | | | | PST | | + + + + + | Body Mass Index | 30.35 | 12/23/2018 1:56 PM | | | | | PST | [...] Progress Notes Cruzito Bird MD - 12/23/2018 3:00 PM PSTFormatting of this note might be different f [...] Since that time, patient was seen at [facility] for pneumo ana. 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 [...] RESULTS reviewed during visit today primarily from [facility]: LIPID Lab Results Component Value Date [...] ejection fraction A. Patient was seen at [facility] for edema seen on 07/08-. [...] He is in a class I of [employer] function al class. There is [...] 1 left ventricular diastolic dysfunction, normally functioning hi chanical bileaflet aortic valve replacement, mildly thickened [...] reduced right ventricular systolic function, normal functioning [facility] hanical aortic valve replacement, mildly thickened [...] 73 Y.O.(2) and Vascular d isease (1). [id number] is 4, which gives an estimated 4.0%risk [...] control strategy. 4. Coronary artery disease involving [place] coronary artery of [place] heart without angina pectoris: A. [facility] 11/14/2004 shows preserved left [...] reviewed and edited this note. Trinidad Johnson, Physics Tutor 12/23/2018 I, Cruzito Bird MD, personally performed the services described in this documentation, as scribed in my presence and it is both accurate and complete. Trinidad Johnson, Physics Tutor 12/23/2018 14:11 Electronically signed by: Cruzito Bird MD [facility] 12/23/2018 Portions of this chart may have been created with Action voice recognition software. Occasi onal wrong-word or sound-alike substitutions may have occurred due to the inherent carter itations of voice recognition software. Please read the chart carefully and recognize, using context, where these substitutions have occurred documented in this encounter Plan of Treatment +--------+ + + + + | Date | Type | Specialty | Care Team | Description | +--------+ + + + + | 07/20/ | Implant | Cardiology | Cruzito Bird, | Remote Device | | 2019 | Monitor | | [address] | Interrogation | | | | | [place], | (Primary Dx); | | | | | [place] [address] | Pacemaker Dual | | | | | [phone] | Chamber, MRI | | | | | | compatible, 05/14/17 | | | | | | [facility]; | | | | | | 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) | +--------+ + + + + | 01/05/ | Office | Cardiology | Ceci Gabriela, | | | 2020 | Visit | | [address] | | | | | | [place], [place] | | | | | | [address] | | | | | | | [...] (HCC) Atrial fibrillation | + + | Remote Device Interrogation - Primary Fitting and adjustment of cardiac pacemaker | + + | Pacemaker Dual Chamber, MRI compatible, 05/14/17 [facility] Cardiac pacemaker | | in situ | + + | 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
--- OUTSIDE RECORDS SUMMARY | ~2020-06-28 | XMS | Encounter Summary ---
Demographics + + + | Address | [address] | | | [place] [address] | + + + | Home Phone [...] Team Providers + +------+ + | Care Cork Insulation Setter Name | Role | Phone | + [...] | 07/20/ | Implant | [facility] [place] | Cruzito Bird, | Remote Device | | 2019 | Monitor | CARDIOLOGY [address] [place] | Interrogation | | | | [place], | [place], | (Primary Dx); | | | | [place] [address] | [place] [address] | Pacemaker Dual | | | | [phone] | [phone] | Chamber, MRI | | | | [...] Paceart documentation and remote PDF scanned into [facility] for remote interrogation re sults. Data [...] Interrogation | | | | | [place], | (Primary Dx); | | | | | [place] [address] | Pacemaker Dual | | | | | [phone] | Chamber, MRI | | | | | | compatible, 05/14/17 | | | | | | [facility]; | | | | | | 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) | +--------+ + + + + | 01/05/ | Office | Cardiology | Emely Gabriel, | | | 2020 | Visit | | BUFFET WAITER/WAITRESS [address] | | | | | | [place] | | | | | | [address] | | | | | | | [...] | Cruzito JONES | | MD Marge 04/28/2019 16:35Date of Remote Interrogation: 04/22/19 | | | Refer to Paceart documentation and remote PDF scanned into [employer] for | | | remote interrogation results. [...] Paceart documentation and remote PDF scanned into [employer] for remote | | interrogation results. Data [...]
--- OUTSIDE RECORDS SUMMARY | ~2020-06-28 | XMS | Encounter Summary ---
Demographics + + + | Address | [address] | | | [place] [address] | + + + | Home Phone | | + + + | Preferred Language | Unknown | + + + | Marital Status | | + + + | Samaritan Affiliation | 1061 | + + + | Race | White | + + + | Ethnic Group | Not or | + + + Author + + + | Author | [facility] | | | and [place] | + + + | Organization | [facility] | [...] Team Providers + +------+ + | Care Live Out Nanny Name | Role | Phone | + +------+ + | Antonio Paulino MD | PCP | | + +------+ + Reason for Visit +--------+--------+ + | Reason | Onset | Comments | | | Date | | +--------+--------+ + | Other | 01/26/ | Atrial Lead in high output mode. | | | 2019 | | +--------+--------+ + Encounter Details +--------+ + + + + | Date | Type | Department | Care Team | Description | +--------+ + + + + | 01/26/ | Telephone | [facility] [place] | Cruzito Bird, | Other (Atrial Lead | | 2020 | | CARDIOLOGY [address] | MD [address] [place] | in high output mode. | | | | [place], | [place], | ) | | | | [place] [address] | [place] [address] | | | | | [phone] | [phone] | | | | | | | [...] Telephone Encounter - Nancy Dougherty RN - 05/25/2020 2:57 PM PDTPatient was in atrial high output again on . Contacted Johnny Joiner and asked him to discuss with Christine mello if they would like to come in for device check with reprogramming or wait and watch . No response from either Johnny and no further alerts for ACap in high output. Electronical ly signed by: Nancy Dougherty RN 05/25/2020 2:59 PM PDT elephone Encounter - RepNancy portillo RN - 01/27/2020 4:20 PM PDT Report received and shows device no longer in high output. Electronically signed by: Nancy lujan RN 01/27/2020 4:21 PM P DTTelephone Encounter - RepoffNancy RN - 01/27/2020 3:42 PM PDTCalled to give results to patient. Spoke to Johnny Li And explained atrial lead is in high output and we would like to have patient send in a report to recheck atrial output. Johnny Li Will call over to asher ents caregiver and have them send a manual report. Electronically signed by: Rob Rios 01/27/2020 3:53 PM docume nted in this encounter Plan of Treatment +--------+ + + + + | Date | Type | Specialty | Care Team | Description | +--------+ + + + + | 07/20/ | Implant | Cardiology | Cruzito Bird, | Remote Device | 2019 | Monitor | | [address] [facility] | Interrogation | | | | | [place], | (Primary Dx); | | | | | [place] [address] | Pacemaker Dual | | | | | [phone] | Chamber, MRI | | | | [...] [place] | | | | | | [id number] | | | | | | | | +--------+ + + + + documented as of this encounter Visit Diagnoses Not on filedocumented in this encounter"
--- OUTSIDE RECORDS SUMMARY | ~2020-06-28 | XMS | Encounter Summary ---
Demographics + + + | Address | [address] | | | [place] [address] | + + + | Home Phone | | + + + | Preferred Language | Unknown | + + + | Marital Status | | + + + | Methodist Affiliation | 1061 | + + + [...] Team Providers + +------+ + | Care Show Host Or Hostess Name | Role | Phone | + +------+ + | Antonio Paulino MD | PCP | | + +------+ + Encounter Details +--------+ + + + + | Date | Type | Department | Care Team | Description | +--------+ + + + + | 06/19/ | Abstract | [facility] [place] | Cruzito Bird, | | | 2016 | | [place] [address] | [address] [place] | | | | | [place], | [place], | | | | | [place] [address] | [place] [address] | | | | | [phone] | [phone] | | | | | | | [...] | 2020 | Monitor | | [address] [facility] | Interrogation | | | | | [place], | (Primary Dx); | | | | | [place] [address] | Pacemaker Dual | | | | | [phone] | Chamber, MRI | | | | [...] [place] | | | | | | [address] | | | | | | | | +--------+ + + + + documented as of this encounter Visit Diagnoses Not on filedocumented in this encounter"
--- OUTSIDE RECORDS SUMMARY | ~2020-06-28 | XMS | Encounter Summary ---
Demographics + + + | Address | [address] | | | [place] [address] | + + + | Home Phone [...] Team Providers + +------+ + | Care Production Administrator Name | Role | Phone | + +------+ + | AshlynMauricio | PCP | | | MD | [...] + + | 02/23/ | Emergency | [facility] | Benjamín Candelaria, | Atrial flutter with | | 2016 | | [facility] | [address] [place] | rapid ventricular | | | | CENTER [address] | [address] | response (HCC) | | | | [place] | [place] [address] | (Primary Dx); | | | | [address] | [phone] | Palpitations; | | | | [phone] | | Supratherapeutic INR | | | | | Yordan Candelario MD | | | | | | [address] | | | | | | [place], [place] | | | | | | [address] | | | | | | | [...] Discharge Instructions Instructions Yordan Candelario MD - 02/24/2016Your INR was 4.75 today. He should stop [...] | | | | be sure the [place] | | | | | | | [...] note might be different from the matti bee. [facility] Johnny Siddiqi Emergency Department Encounter Note [address] [place] [address] PCP:Mauricio Goldberg MD [phone] CHIEF COMPLAINT: Chief Complaint Patient presents with Tachycardia referal from [place] nurse ED Room: ED08/ED08 TRIAGE: ED Triage [...] INR goal is 2-3, surgery done at [facility] Hypertension Liver cirrhosis (HCC) CVA (cerebral infarction) -2014 lacunar (not stated as new nor old) Dementia Alcoholic cirrhosis (HCC) 2003 CT scan 2003 at [facility] Endocarditis 2009 Enterococcus 6 weeks Amp + Gent PSA elevation 2008 Pt declined Bx then Peripheral vertigo 2012 BPPV left Venous ulcer (HCC) 2013 Leg Retinal detachment 2010 CAD (coronary artery disease) 2004 Had CABG to LAD (for 80-90% LAD) surgery done at [facility] Pulmonary HTN ([facility]) Severe on Echo 2013 Diastolic CHF ([facility]) Echo 2013 EF 68, ascites, pulm HTN [...] (Coumadin) yet, you need samy Bunn at [facility] in [place] starting Saturday morning and be sure the [facility] calls you every day with [...] were reviewed along with EMS notes and long term record s if applicable. (See chart for [...] this chart may have been created with [employer] voice recognition software. Occasi onal wrong-word or sound-alike substitutions may have occurred due to the inherent carter itations of voice recognition software. Please read the chart carefully and recognize, using context, where these substitutions have occurred Benjamín Candelaria MD 02/24/165 document ed in this encounter Miscellaneous Notes [...] 2019 | Monitor | | MD [address] [facility] | Interrogation | | | | | [place], | (Primary Dx); | | | | | [place] [address] | Pacemaker Dual | | | | | [phone] | Chamber, MRI | | | | | | compatible, 05/14/17 | | | | | | [facility]; | | | | | | 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) | +--------+ + + + + | 01/05/ | Office | Cardiology | Emely Gabriel, | | | 2020 | Visit | | ROBOTIC MACHINE TENDER PRODUCTION [address] | | | | | | St [place] | | | | | | [address] | | | | | | | [...] 1.001 - 1.030 | | | | [place], | | | | | | [facility], [...] [address] | [place] | [phone] | | [facility] | | [address] | | | - LABORATORY | | [...] 1.51 (H) | 0.60 - 1.30 | [facility] | | | | | mg/dL | [facility] | | | | | | MEDICAL | | | | | | CENTER - | | | | | | LABORATORY | | + + + + + + | eGFR, | 44 (L)Comment: | >=60 | [facility] | | | non- | GLOMERULAR FILTRATION | mL/min/1.73m2 | [facility] | | | Syrian | RATE,ESTIMATED | | MEDICAL | | | | mL/min/1.10k8Vuik than | | CENTER - | | [...] [address] | [place] | [phone] | | [facility] | | [address] | | | - LABORATORY | | [...] | | | | | g/dL | [facility] | | | | | [...] [facility] | | | | | | [facility] [...] [facility] | | | | | | [facility] [...] [address] | [place] | [phone] | | [facility] | | [address] | | | - LABORATORY | | [...] | | | | | | short [place] interval | | | | | | [...] | | | | BINU MACK MD ([id number]) | | | | | | on [...]
--- OUTSIDE RECORDS SUMMARY | ~2020-06-28 | XMS | Encounter Summary ---
Demographics + + + | Address | [address] | | | [place] [address] | + + + | Home Phone [...] Team Providers + +------+ + | Care Molder Shoulder Pad Name | Role | Phone | + +------+ + PCP | Unavailable | + +------+ + Encounter Details +--------+ + + + + | Date | Type | Department | Care Team | Description | +--------+ + + + + | 09/07/ | Hospital | [facility] | Mauricio Goldberg | | | 2002 | Encounter | MED CTR GENERIC OP | MD [address] | | | | | CONV DEPT [address] | [place] | | | | | [place], | [place] [address] | | | | | [place] [address] | [phone] | | | | | [phone] | | | +--------+ + + + [...] Interrogation | | | | | [place], | (Primary Dx); | | | | | [place] [address] | Pacemaker Dual | | | | | [phone] | Chamber, MRI | | | | | | compatible, 05/14/17 | | | | | | [facility]; | | | | | | Tachycardia-bradycar | | | | | | pabol syndrome (HCC) | +--------+ + + + + | 01/05/ | Office | Cardiology | Emely Gabriel, | | | 2020 | Visit | | IRONWORKER APPRENTICE [address] | | | | | | [place] | | | | | | [address] | | | | | | | | +--------+ + + + + documented as of this encounter Visit Diagnoses Not on filedocumented in this encounter"
--- OUTSIDE RECORDS SUMMARY | ~2020-06-28 | XMS | Encounter Summary ---
Demographics + + + | Address | [address] | | | [place] [address] | + + + | Home Phone | | + + + | Preferred Language | Unknown | + + + | Marital Status | | + + + | Advent Affiliation | [id number] | + + + [...] Team Providers + +------+ + | Care Instructor Hairspring Name | Role | Phone | + +------+ + | Antonio Paulino MD | PCP | | + +------+ + Reason for Visit + + + | Reason | Comments | + + + | Follow-up | | + + + | Tachycardia | | + + + | Bradycardia | | + + + Encounter Details +--------+---------+ + + + | Date | Type | Department | Care Team | Description | +--------+---------+ + + + | 07/31/ | Office | [facility] | Basia Bird, | Essential | | 2018 | Visit | CARDIOLOGY [address] | hypertension | | | | [place], | [place], | (Primary Dx) | | | | [place] [address] | [place] [address] | | | | | [phone] | [phone] | | | | | | | [...] + + + | Blood Pressure | 130/58 | 07/31/2018 10:17 AM | | | | | PDT | | + + + + + | Pulse | 60 | 07/31/2018 10:17 AM | | | | | PDT | | + + + + + | Temperature | - | - | | + + + + + | Respiratory Rate | 20 | 07/31/2018 10:17 AM | | | | | PDT | | + + + + + | Oxygen Saturation | - | - | | + + + + + | Inhaled Oxygen | - | - | | | Concentration | | | | + + + + + | Weight | 86.6 kg (191 lb) | 07/31/2018 10:17 AM | | | | | PDT | | + + + + + | Height | 167.6 cm (5' 6") | 07/31/2018 10:17 AM | | | | | PDT | | + + + + + | Body Mass Index | 30.83 | 07/31/2018 10:17 AM | | | | | PDT [...] + + documented as of this encounter Patient Instructions Patient Instructions Sarah Guerrero RN - 07/31/2018 10:00 AM PDTStop taking Amiodarone. Start taking Atorvastatin 20 mg one time daily. Increase metoprolol to 50 mg one time daily. Take blood pressure and pulse once in the morning and once in the evening for two weeks and record on provided log. Please mail log back to clinic once completed. Blood test: Fasting- 12 hours prior to test, no food, no caffiene, water is ok Date Due: 3 months Where to go for labs: Lab of your choice, please see lab orders, take them with you to the lab. Follow up appointment: 4 months Provider: Date: Check-In Time: documented in this encounter Progress Notes Basia Bird MD - 07/31/2018 10:00 AM PDTFormatting of this note might be different f rom the original. PATIENT NAME: Johnny Siddiqi : 1935: AGE: 83 y.o. PRIMARY CARE: Antonio Paulino MD OUTPATIENT FOLLOW UP VISIT Date of Service: 07/31/2018 HISTORY OF PRESENT ILLNESS: Johnny Siddiqi is [...] COPD. He is being seen today for hospital follow up. He was last seen 06/04/2018 at which time patient was scheduled for pulmonary function test and xray chest for amiodarone protocol. Since that time, patient was seen at [facility] for edema seen on 07/08-07/12 because of the congestive heart failure exacerbation. At yahaira t time patient stopped taking lasix because he doesn't want to urinate too frequently. He wa s restarted on lasix 40 mg twice a day. Today, patient reports occasional shortness of breath. His leg swelling has improved and we ars compression stockings. Patient is physically active walking the hallways of [place] a few times a day. There is no chest pain or chest discomfort both at rest and on exer tion. There is no palpitations, dizziness or lightheadedness. Patient can sleep on one pill ow at night without difficulty breathing. MEDICAL, SURGICAL, AND PERSONAL HISTORY Past Medical, Surgical, Family, and Social History are reviewed in EPIC. 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 Respiratory: Positive for shortness of breath. Cardiovascular: Positive for leg swelling. Negative for chest pain and palpitations. Neurological: Negative for dizziness and weakness. Lightheaded = No Psychiatric/Behavioral: The patient has insomnia. OBJECTIVE: PHYSICAL EXAM BP 130/58 | Pulse 60 | Resp 20 | Ht 1.676 m (5' 6") | Wt 86.6 kg (191 lb) | BMI 30.83 kg/m Physical Exam Constitutional: He is oriented to person, place, and time. He appears well-developed and we ll-nourished. Elderly male individual in no acute distress. Neck: Normal carotid pulses and no JVD present. Carotid bruit is not present. Cardiovascular: Normal rate, regular rhythm, S1 normal, S2 normal, normal heart sounds and intact distal pulses. PMI is not displaced. Exam reveals no gallop and no friction rub. No murmur heard. Pulses: Carotid pulses are 2+ on the right side, and 2+ on the left side. Posterior tibial pulses are 2+ on the right side, and 2+ on the left side. Pulmonary/Chest: Effort normal and breath sounds normal. [...] normal. Skin: Skin is warm and dry. No cyanosis. Nails show no clubbing. Psychiatric: He has a normal mood and affect. His mood appears not anxious. He does not exh ibit a depressed mood. ECG: Atrial paced rhythm. LAB RESULTS reviewed during visit today primarily from [facility]: LIPID Lab Results Component Value Date [...] ejection fraction A. Patient was seen at [facility] for edema seen on 07/08-07/12. At that time patient stopped taking lasix. He was restarted on lasix 40 mg twice a day. Today, patient reports occasional shortness of breath. His leg swelling has improved and w ears compression stockings. Patient is physically active walking the hallways of [place] a few times a day. There is no signs and symptoms of overt congestive heart failure. He is in a class I of [place] Heart Association functional class. There is no fluid reten tion on physical examination. I feel that his heart failure is pretty well compensated now. 2. Tachy/bradycardia with syncope: A. Hewas in his usual state of health until 05/07/17 when he was admitted afte r he fell twice while walking out of a convenience store. He was found to be anemic so matti ginal thought was that he had GI bleeding causing the syncope. However, upper GI endoscopy did not reveal significant source of GI bleeding.Over the next few days, patient develope d atrial fibrillation with rapid ventricular response.He was given metoprolol but ran into problems with hypotension. Amiodarone was started. However, he developed a severe richard cardia with hypotension, requiring dopamine. B. Patient underwent successful [facility] medical MRI compatible, dual-chamber p ermanent pacemaker implantation on 05/14/17. C. No device interrogation today. 2. Paroxysmal atrial fibrillation with RVR/aberration conduction: [...] function test 06/27/2018 shows consistent with very severe restricti ve physiology, no prior pulmonary function tests available for comparison. His risks for stroke include: Hx of HTN (1), Age >/= 75 Y.O.(2) and Vascular disease (1). His CHG5DL6-HEMs score is 4, which gives an estimated 4.0% risk of stroke per year in atrial fibrillation. His bleeding risks include: bleeding history/anemia (1) and >64 YO (1) . Hi s HASBLED score is 2-3, which confers an intermediate risk (4.1-5.8%) risk of bleed per yea r. Because of the abnormal recent PFT, individual and should be discontinued. He'll be man aged on a rate control strategy. 4. 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 [facility] 11/14/2004 shows preserved left ventricular systolic function, critical a ortic stenosis, severe one-vessel coronary artery disease. B. 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 C. Patient denies any chest pain at this time. 5. Nonsustained ventricular tachycardia A. He denies any symptoms today. 6. Mechanical aortic valve replacement A. Status post AVR (#23 SJM) on 11/16/2004. B. Patient continues to be on warfarin. 7. Hyperlipidemia, mixed: A. He is on atorvastatin 10 mg. 8. GI bleedingwith anemia: A. Noted during hospitalization 04/2017. Resolved. 9.Stage III chronic kidney disease. A. eGFR is 48 from 06/04/2018. 10. Chronic obstructive pulmonary disease. 11. Obstructive sleep apnea. 12. Hypothyroidism A. TSH on 06/04/18 was 11.4. Unsure if his thyroid supplement was readjusted. PLAN: 1. Stop amiodarone due to the abnormal PFTs suggesting lung toxicity. 2. Increase metoprolol to 50 mg daily for better rate control. 3. Check blood pressure x 2 weeks. 4. Check TSH. 5. Increase Lipitor to 20 mg once a day. Patient has history of CAD. Guidelines recommend high-intensity statin. 6. Check LFT and lipid panel in three months. 7. I recommend a therapeutic lifestyle change including walking 30 minutes a day, choosing healthy choices of diet , including DASH diet and weight reduction. 8. Follow-up in three months. IMelba, am acting as a scribe on behalf of, and in the presence of Basia hodge MD. I have reviewed and edited this note. Melba Thompson Instrumentation And Controls Technician 07/31/2018 I, Basia Bird MD, personally performed the services described in this documentation, as scribed in my presence and it is both accurate and complete. Melba Thompson, Med Ass t 07/31/2018 10:41 Electronically signed by: Basia Bird MD [facility] 07/31/2018 Portions of this chart may have been created with [employer] voice recognition software. Occasi onal wrong-word or sound-alike substitutions may have occurred due to the inherent carter itations of voice recognition software. Please read the chart carefully and recognize, using context, where these substitutions have occurred documented in this encounter Miscellaneous Notes Addendum Note - Isabel Colbert, RN - 07/31/2018 10:00 AM PDT Addended by: DAYANARA COLBERT on: 08/04/2018 08:48 Modules accepted: Orders documented in t his encounter Plan of Treatment +--------+ + + [...] Dx); | | | | | [place] [id number] | Pacemaker Dual | | | | | [phone] | Chamber, MRI | | | | [...] [place] | | | | | | [address] | | | | | | | | +--------+ + + + + + +------+--------+ + + | Name | Type | Priori | Associated Diagnoses | Order Schedule | | | | ty | | | + +------+--------+ + + | TSH | Lab | Routin | Essential | 1 Occurrences | | | | e | hypertension | starting 07/31/2018 | | | | | | until 10/29/2018 | + +------+--------+ + + | Lipid Panel | Lab | Routin | Essential | 1 Occurrences | | | | e | hypertension | starting 07/31/2018 | | | | | | until 10/31/2018 | + +------+--------+ + + documented as of this encounter Procedures + +--------+ + + + | Procedure Name | Priori | Date/Time | Associated Diagnosis | Comments | | | ty | | | | + +--------+ + + + | ECG 12 LEAD | Routin | 07/31/2018 | Essential | Results for this | | | e | 10:32 AM | hypertension | procedure are in the | | | | PDT | | results section. | + +--------+ + + + documented in this encounter Results ECG 12 lead (07/31/2018 10:32 AM PDT) + + + + + + | Component | Value | Ref Range | Performed | Pathologist | | | | | At | Signature | + + + + + + | VENTRICULAR | 60 | BPM | [facility] | | | RATE EKG | | | | | + + + + + + | ATRIAL RATE | 60 | BPM | [facility] | | + + + + + + | P-R | 256 | ms | [facility] | | | INTERVAL | | | | | + + + + + + | QRS | 152 | ms | [facility] | | [...] + + + | QRS AXIS | -35 | degrees | [facility] | | + + + + + + | T AXIS | 131 | degrees | [facility] | | + + + + + + | INTERPRETAT | Atrial-paced rhythm with | | [facility] | | | ION TEXT | prolonged AV | | | | | | conductionLeft axis | | | | | | deviationLeft bundle | | | | | | branch blockAbnormal | | | | | | ECGWhen compared with | | | | | | ECG of 04-JUN-2018 | | | | | | 08:31,T wave inversion | | | | | | less evident in Lateral | | | | | | leadsConfirmed by | | | | | | MAGO CHARLTON, BASIA | | | | | | ([id number]) on 07/31/2018 | | | | | | 4:48:20 PM | | | | + + + [...] + | Diagnosis | + + | Essential hypertension - Primary Unspecified essential hypertension | + + | Remote Device Interrogation - Primary Fitting and adjustment of cardiac pacemaker | + + | Pacemaker Dual Chamber, MRI compatible, 05/14/17 [facility] Cardiac pacemaker | | in situ | + + | 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
--- OUTSIDE RECORDS SUMMARY | ~2020-06-28 | XMS | Encounter Summary ---
Demographics + + + | Address | [address] | | | [place] [address] | + + + | Home Phone | | + + + | Preferred Language | Unknown | + + + | Marital Status | | + + + | Gnosticist Affiliation | 1061 | + + + | Race | White | + + + | Ethnic Group | Not or | + + + Author + + + | Author | [facility] | | | and [place] | + + + | Organization | [facility] | | | and [place] | + + + | Address | Unknown | + + + | Phone | Unavailable | + + + Support + + +---------+ + | Name | Relationship | Address | Phone | + + +---------+ + | Johnny Siddiqi Jr. | ECON | Unknown | | + + +---------+ + | Cassandra Beintez | ECON | NA | | | | | NA, | | + + +---------+ + | Rl Siddiqi | ECON | Unknown | | + + +---------+ + | Chris Siddiqi | ECON | Unknown | | + + +---------+ + | Cassandra Guthrie | ECON | Unknown | | + + +---------+ + Care Team Providers + +------+ + | Care Churn Drill Operator Name | Role | Phone | + +------+ + | Atnonio Paulino MD | PCP | | + [...] | Marge | | | | | [facility] | MD Basia | MD Basia | | | | | discharge | [address] | | | | | follow-up | [address] | [address] | | | | | Pacemaker | [place], | [place], | | | | | HTN | [place] [address] | [place] [address] | | | | | (hypertensio | Phone: | Phone: | | | | | n) CAD | [phone] | [phone] | | | | | (coronary | Fax: | Fax: | | | | | artery | [phone] | [phone] | | | | | disease) | [...] | | | | | | | [facility] DESK TEAM MEMBER IN | | | | | | | CLINIC. | | | | | | | CONSULTED BY | | | | | | | [facility] | | | | | | | HOSP. | | | +--------+--------+ + + + + Encounter Details +--------+---------+ + + + | Date | Type | Department | Care Team | Description | +--------+---------+ + + + | 06/19/ | Office | [facility] | Basia Bird, | Chronic heart | | 2017 | Visit | CARDIOLOGY [address] | failure, unspecified | | | | [place], | [place], | heart failure type | | | | [place] [address] | [place] [address] | ([facility]) (Primary Dx) | | | | [phone] | [phone] | | | | | | | [...] inactive as he is living at the [facility] in [facility]. There is no chest pain or [...] Pacemaker Dual Chamber, MRI compatible, 05/14/17 [facility] MEDICAL, SURGICAL, AND PERSONAL HISTORY Past Surgical History: Procedure Laterality Date CARDIAC SURGERY 2005 [facility] CABG and [facility] AVR PACEMAKER INSERTION N/A 05/14/2017 Procedure: CV EP PPM System Implant; Surgeon: Basia Brid MD; Location: [facility] CV LAB UPPER GASTROINTESTINAL ENDOSCOPY N/A 05/08/2017 Procedure: EGD with Anesthesia; Surgeon: Peter Maciel MD; Location: [facility] MEDICAL PROCED URE UNIT Family History Problem [...] and lab reports on 05/07/2017-05/16/2017. Refer to commercial carpenter. ASSESSMENT: 1. Fall/syncope with atrial fibrillation with [...] be fluid overloaded on this study. E. Hewas in his usual state of health [...] is living at the rehab unit of [facility] in [facility]. There is no chest pain or [...] failure. He is in a class IIof [place] [employer] functional class. There is bilateral [...] resolved. 4. Mechanical aortic valve replacement A. [facility] 11/14/2004 shows preserved [...] reviewed and edited this note. Melba Thompson Tin Worker 06/19/2017 I, Basia Bird MD, personally performed the services described in this documentation, as scribed in my presence and it is both accurate and complete. Melba Thompson, Med Ass t 06/19/2017 10:37 Electronically signed by: Basia Bird MD [facility] 06/19/2017 Portions of this chart may have been created with [employer] voice recognition software. Occasi onal wrong-word or [...] Dx); | | | | | [place] [address] | Pacemaker Dual | | | | | [phone] | Chamber, MRI | | | | [...] [place] | | | | | | [id number] | | | | | | | [...] MD | | | | | | ([id number]) on 06/20/2017 | | | | | [...]
--- OUTSIDE RECORDS SUMMARY | ~2020-06-28 | XMS | Encounter Summary ---
Demographics + + + | Address | [address] | | | [place] [address] | + + + | Home Phone | | + + + | Preferred Language | Unknown | + + + | Marital Status | | + + + | Hoahaoism Affiliation | 1061 | + + + | Race | White | + + + | Ethnic Group | Not or | + + + Author + + + | Author | [facility] | | | and [place] | + + + | Organization | [facility] | | | and [...] Team Providers + +------+ + | Care Home Health Care Case Manager Name | Role | Phone | [...] | 08/21/ | Telephone | [facility] | [place] Bird, | Blood Pressure | | 2017 | | CARDIOLOGY [address] | | | | | [place], | [place], | | | | | [place] [address] | [place] [address] | | | | | [phone] | [phone] | | | | | | | [...] | Monitor | | MD [address] | Interrogation | | | | | [place], | (Primary Dx); | | | | | [place] [address] | Pacemaker Dual | | | | | [phone] | Chamber, MRI | | | | [...] [place] | | | | | | [address] | | | | | | | | +--------+ + + + + documented as of this encounter Visit Diagnoses Not on filedocumented in this encounter"
--- OUTSIDE RECORDS SUMMARY | ~2020-06-28 | XMS | Encounter Summary ---
Demographics + + + | Address | [address] | | | [place] [address] | + + + | Home Phone | | + + + | Preferred Language | Unknown | + + + | Marital Status | | + + + | Spiritism Affiliation | [id number] | + + + | Race | White | + + + | Ethnic Group | Not or | + + + Author + + + | Author | [facility] | | | and [place] | + + + | Organization | [facility] | | | [...] Team Providers + +------+ + | Care Beeswax Bleacher Name | Role | Phone | + +------+ + | Antonio Paulino MD | PCP | | + +------+ + Reason for Visit + + + | Reason | Comments | + + + | Follow-up, Office | | | Visit | | + + + | Device Check | | | (In-office) | | + + + | Bradycardia | | + + + | Tachycardia | | + + + | Hypertension | | + + + | Coronary Artery | | | Disease | | + + + | Congestive Heart | | | Failure | | + + + | Atrial Fibrillation | | + + + Follow Up (Routine) + +--------+ + + + + | Status | Reason | Specialty | Diagnoses / | Referred By | Referred To | | | | | Procedures | Contact | Contact | + +--------+ + + + + | Authorized | | Cardiology | Diagnoses | Jefferson, | Nery, | | | | | Other | Antonio | AMANDA Han | | | | | persistent | MD Paco | [address] | | | | | atrial | [address] [place] | | | | | fibrillation | CHUCK | [place], [place] | | | | | ([facility]) Sick | [address] | [address] Phone: | | | | | sinus | [place] | [phone] | | | | | syndrome | [address] | Fax: | | | | | (HCC) | Phone: | [phone] | | | | | Chronic | [phone] | | | | | | diastolic | Fax: | | | | | | (congestive) | [phone] | | | | | | heart | | | | | | | failure | | | | | | | (HCC) | | | | | | | Procedures | | | | | | | FOLLOW UP | | | + +--------+ + + + + Encounter Details +--------+---------+ + + + | Date | Type | Department | Care Team | Description | +--------+---------+ + + + | 01/05/ | Office | [facility] [place] | Emely Gabriel, | Coronary artery | | 2020 | Visit | CARDIOLOGY [address] | [facility]ST [address] | disease involving | | | | [address] [place], | [place] | [place] coronary | | | | [place] [address] | [id number] | artery of [place] | | | | [phone] | | heart without angina | | | | | | pectoris (Primary | | | | | | Dx); Essential | | | | | | hypertension; | | | | | | Pulmonary HTN ([facility]); | | | | | | Chronic diastolic | | | | | | congestive heart | | | | | | failure ([facility]); | | | | | | Persistent atrial | | | | | | fibrillation ([facility]); | | | | | | 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 ([facility]); | | | | | | Status post | | | | | | mechanical aortic | | | | | | valve replacement; | | | | | | Pacemaker | | | | | | reprogramming/check; | | | | | | Pacemaker Dual | | | | | | Chamber, MRI | | | | | | compatible, 05/14/17 | | | | | | [facility]; | | | | | | Chronic obstructive | | | | | | pulmonary disease, | | | | | | unspecified COPD | | | | | | type (HCC) | +--------+---------+ + + + Social [...] + + + | Blood Pressure | 112/50 | 01/06/2020 12:35 PM | | | | | PDT | | + + + + + | Pulse | 68 | 01/06/2020 12:35 PM | | | | | PDT | | + + + + + | Temperature | - | - | | + + + + + | Respiratory Rate | 22 | 01/06/2020 12:35 PM | | | | | PDT | | + + + + + | Oxygen Saturation | 96% | 01/06/2020 12:35 PM | | | | | PDT | | + + + + + | Inhaled Oxygen | - | - | | | Concentration | | | | + + + + + | Weight | 89.3 kg (196 lb 13.9 | 01/06/2020 12:35 PM | | | | oz) | PDT | | + + + + + | Height | 168.9 cm (5' 6.5") | 01/06/2020 12:35 PM | | | | | PDT | | + + + + + | Body Mass Index | 31.3 | 01/06/2020 12:35 PM | | | | | PDT [...] of this encounter Patient Instructions Patient Instructions Herson Boone, Art Glass Designer - 01/06/2020 12:45 PM PDT1. We will schedule you for a lung function test to check for amiodarone side effects at [facility]. 2. [facility]. 3. Get a hold of the [facility] for about signing a paper to release information to [facility] so we can view it in our system. 4. He will follow up in 1 year for office visit and device interrogation, or sooner with yaw cortez. He will have an ECG at his follow up visit and He will have fasting labs prior to visit for lipid profile, CMP and CBC, if not done prior by another provider. What is Coronavirus? The Novel Coronavirus 2019 (COVID-19) is a new virus strain that is believed to spread in s imilar ways as the common cold / flu, such as when an infected person coughs or sneezes. Sym ptoms may appear 2-14 days after exposure. Reported illnesses have ranged from mild symptoms to severe illness and for confirmed cases. Symptoms include: Fever Cough Difficulty breathing Human coronaviruses most commonly spread from an infected person to others through: Respiratory droplets produced by coughing and sneezing Close personal contact, like shaking hands Touching a surface with the virus on it and then touching your mouth, nose, or eyes bef ore washing your hands. How to protect yourself You can protect yourself from COVID-19 infection the same ways you protect against the comm on cold or seasonal flu. Sanitize your hands often for at least 20 seconds each time. Alcohol gel works well in most situations (like after coughing, sneezing or blowing your nose), but handwashing with s oap and water should be performed after going to the bathroom, before eating or when your gonzalez nds are visibly soiled. Cover your cough or sneeze with a tissue, then throw the tissue in the trash. (Putting a tissue on a table contaminates the surface of the table with germs.) Avoid touching your eyes, nose and mouth. Stay home when you are sick. Routinely disinfect frequently touched objects and surfaces, using a cleaning spray or wipe. Avoid travel to high-risk countries. We are discouraging non-essential travel to or thr ough any of the countries for which the CDC has issued a level 2 or 3 travel health notice ( https://www.cdc.gov/coronavirus/2019-ncov/travelers/index.html) The CDC does not recommend that people who are well wear a facemask to protect themselves f rom respiratory illnesses, including COVID-19. You should only wear a mask if a healthcare p rofessional recommends it. A facemask should be used by people who have COVID-19 and are rell wing symptoms of infection like coughing, sneezing or fever. This is to protect others from the risk of getting infected. What to do if you are sick Use home quarantine or home isolation: Stay home if you believe you have been exposed t o the virus, even if you are not showing any symptoms. Please see below for home quarantine instructions. Stay home when you are sick, especially if you have respiratory illness symptoms. At th e present time, these symptoms are more likely due to influenza or other respiratory viruses than to a COVID-19 infection. Whether you have seasonal flu or the common cold, it's import ant you stay away from others when sick. Monitor yourself for fever, coughing and shortness of breath. When you should seek medical evaluation and advice? If you have an emergency medical situation, call . If you are over 60 years old, or have underlying conditions such as , diabetes , palpitations, lung disease and weakened immune system, work with your doctor to develop a plan to determine your health risks to coronavirus and how to manage symptoms. If you do hav e symptoms, contact your doctor immediately. For worsening symptoms or difficulty breathing, please contact your primary care provid er or consider a virtual visit. If you do not have a high-risk condition and your symptoms are mild, you do not need to be evaluated in person and do not need to be tested for COVID-19. (Please see Home Quarant ine and Isolation Instructions below) We ask that you please avoid coming to the emergency department, unless you have a health e mergency and/or you have been advised by a provider to do so. This helps prevent the risk of spreading this disease and further exposure in our community and allows us to dedicate crit ical and limited emergency resources to those who are very sick. Who should be tested? A common question right now is, Why can't I get tested? The answer: Not everyone need s to be tested. And, people with flu-like symptoms are not being tested for COVID-19 unless they meet certain criteria set by the CDC. The criteria are set by the CDC as a condition o f the FDA-approved emergency use authorization, which allows new tests to be used in an james gency situation on high-risk people only. That criteria have widened in the last week to include people who are hospitalized with sym ptoms that are otherwise unexplained. That is in addition to testing people with travel hist ory, and people with contacts to a known case. These criteria may evolve to include more peo ple over time, as this situation is evolving rapidly. Home Quarantine and Isolation Instructions If you are currently sick with a fever, respiratory symptoms or a virus, you should avoid e xposure to others. If you have a possible significant exposure to COVID-19 because of travel or direct exposure to a known case, the current recommendation is for you to stay home for 7 days (home quarantine) even if you do not develop symptoms or your illness has improved. If you are ill, we recommend avoiding exposure to others (home isolation) until you have bee n well (without a fever or feeling ill) for 72 hours. Many patients will have a prolonged c ough after they are sick if you are otherwise well, contact your doctor or one of the no johnny resources to determine if it is safe to return to your usual activities. Guidelines for home quarantine and home isolation include: Stay at home and do not have visitors. Do not go to another person's home. Do not use public transportation. Restrict activities outside your home, except for seeking medical care. Do not go to work, school or public areas. Avoid close contact with household members (stay 10 feet away when possible). Cover coughs and sneezes. Clean all high touch surfaces every day. Use separate sleeping and bathroom/bathing facilities, if feasible. Avoid sharing personal household items (dishes, drinking glasses, cups, eating utensils , towels, or bedding) with other people or pets in your home. After using these items, they should be washed thoroughly with soap and water. Call ahead before visiting your doctor. This will help the healthcare provider's office take steps to keep other people from getting infected or exposed. If you have been tested for COVID-19, stay home until your healthcare provider contacts you about your test results. Does this mean my family or other people I live with need to self-quarantine? Other members of the household are not required to self-quarantine, unless they have been t old by a medical professional to do so. If you develop symptoms and are suspected to have no darion coronavirus, members of the household will be classified as close contacts and will then need to be in self-quarantine. How is this Virus Treated? Most people with common human coronavirus illness will recover on their own. There is no s pecific antiviral treatment recommended for COVID-19. People with COVID-19 should receive montoya pportive care to help relieve symptoms. For severe cases, treatment should include care to s upport vital organ functions. Additional Information For up-to-date information about coronavirus and the community public health response, visi t your local public health website. CDC: COVID-19: https://www.cdc.gov/coronavirus/2019-ncov/index.html [place] Coronavirus Advisory: https://www.loomis.org/ihhtpzqt-jep-pmeemghs/coron avirus-advisory Virtual Visits Available https://virtual.loomis.org/ documented in this encounter Progress Notes Emely Gabriel ARNP - 01/06/2020 12:45 PM PDTFormatting of this note might be different fr om the original. PATIENT NAME: Johnny Siddiqi : 1935: AGE: 84 y.o. PRIMARY CARE: Antonio Paulino MD CC: OUTPATIENT FOLLOW UP VISIT Date of Service: 01/06/2020 HISTORY OF PRESENT ILLNESS: Johnny Sididqi is a 84 y.o. male with a history of symptomatic [...] and device interrogation. He was last seen 12/23/2018 at which time he had no changes in his medical regimen. Since that time, he has had no visits to the emergency room. He has overall felt well from a hear t standpoint and has not really had any concerns. He had his routine physical at the [place] in October and had a lot of his labs done then. He goes to [facility] to have his INR checked r egularly. Generally he reports his number is good but he does get a lot of bruising and if he gets a skin slip takes a while for the bleeding to resolve. He lives independently but h as caregivers every day for 3 to 4 hours a day. He has several caregivers and some of them are very good cooks and he attributes his slow weight gain to this. He checks his weight re gularly and notes that he has not had any sudden weight gain, just slow gain due to eating m ore than he used to. He has had a fair energy level. He has not been very active. He has not had any chest cameron n or discomfort at rest or with exertion. He has had shortness of breath with mild exertio n. He has dizziness with postion change. He has not noticed palpitations. He has not had leg swelling. He sleeps on 1 pillow at night without any shortness of breath. He sleeps wi th oxygen in place nightly with 3 liters per minute by nasal cannula. He states he wakes up most of the time feeling tired, with an average of 10 hours of sleep per night. MEDICAL, SURGICAL, AND PERSONAL HISTORY Past Medical, Surgical, Family, and Social History are reviewed in EPIC. CURRENT PROBLEMS Patient Active Problem List Diagnosis H/O aortic valve replacement Essential hypertension Liver cirrhosis Dementia Alcoholic cirrhosis Coronary artery disease involving [place] coronary artery of [place] heart without angina pectoris Pulmonary HTN Chronic diastolic congestive heart failure Over-anticoagulated Acute renal failure (ARF) Anemia CRUZITO (obstructive sleep apnea) Persistent atrial fibrillation Wound of left leg Venous stasis of both lower extremities Hard of hearing Atrial fibrillation, persistent Tachycardia-bradycardia syndrome Pacemaker reprogramming/check Pacemaker Dual Chamber, MRI compatible, 05/14/17 [facility] S/P CABG x 1 Status post mechanical aortic valve replacement CURRENT MEDICATIONS Current Outpatient Medications Medication Sig Dispense Refill albuterol 90 mcg/puff inhaler Inhale 2 puffs into the lungs every 4 (four) hours as nee ded for Wheezing. amiodarone (PACERONE) 200 mg tablet Take 200 mg by mouth daily. atorvaSTATin (LIPITOR) 20 mg tablet Take 1 tablet by mouth nightly. 90 tablet 3 benzonatate (TESSALON) 100 mg capsule Take 100 mg by mouth Twice daily as needed for C ough. budesonide-formoterol (SYMBICORT) 160-4.5 mcg/puff inhaler Inhale 2 puffs into the lung s 2 times daily. carboxymethylcellulose (REFRESH TEARS) 0.5% ophthalmic solution 1 drop 3 (three) times daily as needed. colchicine 0.6 mg tablet take 1 tablet by mouth once daily 0 desonide (DESOWEN) 0.05% cream Apply 1 Units topically. docusate sodium (COLACE) 250 MG capsule Take 250 mg by mouth daily. ferrous sulfate 324 (65 Fe) MG EC tablet 324 mg. furosemide (LASIX) 40 mg tablet Take 40 mg by mouth Daily. guaiFENesin-codeine (ROBITUSSIN AC) 100-10 mg/5 mL liquid Take 5 mLs by mouth every 6 h ours as needed for Cough. levothyroxine (SYNTHROID, LEVOTHROID) 25 mcg tablet Take 25 mcg by mouth every morning (before breakfast). lisinopril (PRINIVIL, ZESTRIL) 10 mg tablet Take 10 mg by mouth Daily. losartan (COZAAR) 25 mg tablet Take 25 mg by mouth daily. magnesium oxide (MAG-OX) 400 mg tablet Take 400 mg by mouth Daily. methylPREDNISolone (MEDROL DOSEPAK) 4 mg tablet take by mouth as directed PER PACKAGE D IRECTIONS 0 metoprolol succinate (TOPROL-XL) 50 mg 24 hr tablet Take 1 tablet by mouth Daily. 90 ta blet 3 nitroglycerin (NITROSTAT) 0.[address] 0.4 mg under the tongue every 5 (five) minutes as needed for Chest pain. nystatin (MYCOSTATIN) 183659 UNIT/GM cream Apply 1 Units topically 3 (three) times marcelo y as needed. skin emollient (EUCERIN CALMING DAILY MOIST) cream Apply 1 Units topically daily as nee ded. terbinafine (LAMISIL) 1% cream Apply 1 Units topically. traZODone (DESYREL) 50 mg tablet Take 50 mg by mouth nightly. warfarin (COUMADIN) 2 mg tablet Take 5 mg by mouth daily. Take 5mg daily except on and Saturday take 10mg daily No current facility-administered medications for this visit. ALLERGIES Allergies Allergen Reactions Latex Rash ROS Review of Systems Constitutional: Positive for malaise/fatigue. Negative for chills and fever. HENT: Positive for hearing loss. Negative for nosebleeds and tinnitus. Eyes: Negative for blurred vision and double vision. Respiratory: Positive for shortness of breath (with mild exertion). Cardiovascular: Negative for chest pain, palpitations and leg swelling. Gastrointestinal: Negative for abdominal pain, blood in stool, constipation, diarrhea, hear tburn, nausea and vomiting. Genitourinary: Positive for frequency. Negative for hematuria and urgency. Musculoskeletal: Positive for back pain, falls, joint pain, myalgias and neck pain. Skin: Positive for itching (on his forearms). Negative for rash. Neurological: Positive for dizziness (with postion change). Negative for tingling, tremors, seizures, loss of consciousness and weakness. Lightheadedness = No Endo/Heme/Allergies: Bruises/bleeds easily. Psychiatric/Behavioral: Positive for memory loss. The patient is not nervous/anxious and do es not have insomnia. OBJECTIVE: PHYSICAL EXAM BP 112/50 | Pulse 68 | Resp 22 | Ht 1.689 m (5' 6.5") | Wt 89.3 kg (196 lb 13.9 oz) | SpO2 96% | BMI 31.30 kg/m Physical Exam Constitutional: He is oriented to person, place, and time. He appears well-developed and we ll-nourished. Elderly male individual who arrives in no acute stress with his son Neck: Normal carotid pulses and no JVD present. Carotid bruit is not present. Cardiovascular: Normal rate, regular rhythm, S1 normal, S2 normal and intact distal pulses. PMI is not displaced. Exam reveals no gallop and no friction rub. Murmur heard. Holosystolic murmur is present with a grade of 2/6 at the upper right sternal border. Pulses: Carotid pulses are 2+ on the right side and 2+ on the left side. Posterior tibial pulses are 2+ on the right side and 2+ on the left side. Mechanical valve sounds Pulmonary/Chest: Effort normal. No accessory muscle usage. No respiratory distress. He has decreased breath sounds. He has no wheezes. He has no rhonchi. He has no rales. Abdominal: Soft. Normal appearance and normal aorta. He exhibits no abdominal bruit. There is no hepatosplenomegaly. There is no abdominal tenderness. Musculoskeletal: General: No edema. Neurological: He is alert and oriented to person, place, and time. Gait (He arrived with a 4 wheel walker) abnormal. Skin: Skin is warm and dry. No cyanosis. Nails show no clubbing. Psychiatric: He has a normal mood and affect. His mood appears not anxious. He does not exh ibit a depressed mood. ECG: I personally independently reviewed ECG tracing during this visit (interpreted and enoc led by another provider): Results for orders placed or performed in visit on 07/31/18 ECG 12 lead Result Value Ref Range INTERPRETATION TEXT Atrial-paced rhythm with prolonged AV conduction Left axis deviation Left bundle branch block Abnormal ECG When compared with ECG of 04-JUN-2018 08:31, T wave inversion less evident in Lateral leads Confirmed by BASIA BIRD MD ([id number]) on 07/31/2018 4:48:20 PM Which is compared to today's ECG 01/06/2020: atrial-paced rhythm with prolonged AV conduct ion, left bundle branch block. QT/QTc 476/476 with a ventricular rate of 60 beats per minute . LAB RESULTS reviewed during visit today primarily from [facility]: LIPID Lab Results Component Value Date CHOL 122 (L) 06/04/2018 TRIG 76 06/04/2018 HDL 48 06/04/2018 LDL 59 06/04/2018 CHOLHDL 2.5 06/04/2018 HDLEX 56 11/10/2019 TRIGEX 111 11/10/2019 CHOLEX 141 11/10/2019 CHEMISTRY Lab Results Component Value Date GLU 94 06/04/2018 GLUEX 132 (A) 11/10/2019 NA 140 06/04/2018 NAEX 141 11/10/2019 K 5.0 06/04/2018 KEX 4.7 11/10/2019 CL 108 06/04/2018 CLEX 1.3 (A) 11/10/2019 CO2 27 06/04/2018 CO2EX 27 11/10/2019 CALCIUM 9.1 06/04/2018 ALKPHOS 101 06/04/2018 AST 34 06/04/2018 ASTEX 43 11/10/2019 ALT 21 06/04/2018 ALTEX 25 11/10/2019 BILITOT 0.9 06/04/2018 CREA 1.41 (H) 06/04/2018 BUN 22 (H) 06/04/2018 EGFR 52 (A) 04/15/2018 EGFREX 85 11/10/2019 CREEX 1.4 11/10/2019 HEMATOLOGY Lab Results Component Value Date WBC 6.4 06/04/2018 WBCEX 8.4 11/10/2019 HGB 11.2 (L) 06/04/2018 HGBEX 11.8 11/10/2019 HCT 34.7 (L) 06/04/2018 HCTEX 38.6 11/10/2019 PLT 151 06/04/2018 PLTEX 117 (A) 11/10/2019 Lab Results Component Value Date TSH 11.40 (H) 06/04/2018 BNP 488 (H) 05/07/2017 I will obtain records from PCP. DEVICE INTERROGATION Device interrogation is ordered and performed during this visit. Refer to scanned Paceart documentation and device PDF in CellScape for interrogation (with programming changes) performed during visit today. Events: 10 AMS episodes with longest being 30 sec on 01/01/2020 showing atrial tachycardia with ventricular paced response. Heart rate histogram shows minimal distribution. Atrial pacing >99%, Ventricular pacing 2.6 %. There is a normal and stable device function. Estimated remaining battery longevity is 10-10.4 years. Current underlying rhythm: Junctional with no intrinsic P wave down to 30 beats per minute. Above data and testing is reviewed this visit; testing below is historical data unless othe rwise specified. ASSESSMENT: 1. Congestive heart failure with preserved ejection fraction A. Echocardiogram Complete 05/13/2017 LVEF 55-60%. B. Today, 01/06/2020, he is asymptomatic. He uses loop diuretic daily. There are no signs or symptoms of overt congestive heart failure, and his physical exam sh ows no significant fluid retention. He is in class III- Symptoms with minimal exertion of t he [place] [employer] functional class, which is complicated by his lung disease. He art failure stage A-pre-heart failure. 2. Tachy/bradycardia with syncope: A.Hewas in his usual state of health until 05/07/17 when he was admitted after he fell twice while walking out of a convenience store. He was found to be anemic so original thought was that he had GI bleeding causing the syncope. However, upper GI endoscopy did not reveal significant source of GI bleeding.Over the next few days, pat ient developed atrial fibrillation with rapid ventricular response.He was given metoprolol but ran into problems with hypotension. Amiodarone was started. However, he developed a severe bradycardia with hypotension, requiring dopamine. B. Patient underwent successful [facility] medical MRI compatible, du al-chamber permanent pacemaker implantation on 05/14/17. C. Today, 01/06/2020, his device interrogation shows normal and stab le device function as listed above. He does have remote monitoring with [place]. 3. Paroxysmal atrial fibrillation with RVR/aberration conduction: A. Echocardiogram of 05/13/17 showed mild biatrial [...] calcification. Moderate pulmonary hypertension with a peak s ystole pressure of 65-70 mmHg. Dilated IVC without respiratory collapse suggesting fluid ret ention. When compared to echocardiography on 02/28/17, pulmonary hypertension is slightly wor sened and patient appeared to be fluid overloaded on this study. See prior echocardiogram re ports in cardiology note 12/2018. B. He was started on amiodarone 04/2017. C. Hisrisks for stroke include: Hx of HTN (1), Age >/= 75 Y.O.(2) and Vascular disease ( 1). [id number] is 4, which gives an estimated 4.0%risk of stroke per year in atrial fibrillation. Hisbleeding risks include: bleeding history/anemia (1) and >64 YO (1) . HisHASBLED score is 2-3, which confers an intermediate risk (4.1-5.8%) risk of b leed per year. He is on warfarin to minimize risk of stroke. Today, 01/06/2020, he is on rhythm control with amiodarone and metoprolol. His atrial fibrillation is well controlled and does not require medication adjustment. No event s are noted on his device check. 4. Coronary artery disease involving [place] coronary artery of [place] heart without angina pectoris: A. [facility] 11/14/2004 shows preserved left ventricular systolic function , critical aortic stenosis, severe one-vessel coronary artery disease. B. CABG x1 (DON to LAD)/AVR (#23 SJM),prosthetic valve stable, end ocarditis prophylaxis reinforced on 11/16/2004. C. Today, 01/06/2020, he is asymptomatic. He is on a medical regimen with CARMELINA-I, beta-birdie and statin. 5. Nonsustained ventricular tachycardia: A. Today, 01/06/2020, he feels palpitations are well controlled on c urrent regimen. 6. Mechanical aortic valve replacement: Not otherwise addressed today 01/06/2020. A. Status post AVR (#23 SJM)on 11/16/2004. B. Patient is on warfarin 6 mg. His warfarin is managed by the [place]. 7. Hyperlipidemia, mixed: A. Today, 01/06/2020, he remains on atorvastatin. 8. Amiodarone use: Not otherwise addressed today 01/06/2020. A. He was started on amiodarone 04/2017. B. Pulmonary function test 06/27/2018 shows consistent with very severe restrictive physiolo gy, no prior pulmonary function tests available for comparison. C. Today, 01/06/2020, he will be scheduled for a pulmonary function test as he is due for that. He wants to have this done at [facility]. [facility] Called the [place] to see if TSH was done with his other labs in October and they report that if it was done it would have been on the labs we received, a nd as we do not see this we will add labs to be done at [facility] when he has his INR done t omorrow. His labs in October otherwise already include CBC and liver function which were no rmal. 9.Stage III chronic kidney disease: Not otherwise addressed today 01/06/2020. A. No recent labs. 10. Chronic obstructive pulmonary disease: Not otherwise addressed today 01/06/2020. A. Patient is on nebulizer treatments. 11. Obstructive sleep apnea: A. Today, 01/06/2020, he sleeps on 1 pillow at night without any shortness of breath. He sleeps with oxygen in place nightly with 3 liters per minute by nasal cannula. He states he wakes up most of the time feeling tired, with an average of 10 hours of sleep per night. 12. Hypothyroidism: Not otherwise addressed today 01/06/2020. A. He is on levothyroxine 25 mcg. 13. GI bleedingwith anemia: Not otherwise addressed today 01/06/2020. PLAN: 1. We will schedule you for a lung function test to check for amiodarone side effects at [facility]. 2. He will have TSH and T4 added to his INR that will be done at [facility] tomorrow to foll ow-up his amiodarone use. 3. Get a hold of the [place] for about signing a paper to release information to [employer] so we can view it in our system. 4. He will continue with his [employer] remote device monitoring. 5. He is recommend a therapeutic lifestyle change including moderate aerobic activity at le ast 150 minutes per week, with strengthening and stretching exercises at least twice per wee k, and healthful dietary choices following the principles of the mediterranean or plant-base d diet. 6. He will follow up in 1 year for office visit and device interrogation, or sooner with yaw cortez. He will have an ECG at his follow up visit and He will have fasting labs prior to visit for lipid profile, CMP and CBC, if not done prior by another provider. Herson Breaux, Art Glass Designer am acting as a scribe on behalf of, and in the presenc e of AMANDA Hurtado. - Herson Boone, Art Glass Designer 01/06/2020 12:39 PM Emely Breaux ARNP, personally performed the services described in this documentation, as scribed in my presence and it is both accurate and complete. AMANDA Hurtado 0 Portions of this chart may have been created with [employer] voice recognition software. Occasi onal wrong-word or sound-alike substitutions may have occurred due to the inherent carter itations of voice recognition software. Please read the chart carefully and recognize, using context, where these substitutions have occurred. documented in this encounter Procedure Notes Emely Gabriel ARNP - 01/06/2020 12:45 PM PDTAssociated Order(s): DEVICE INTERROGATIONProc edure(s): DEVICE INTERROGATIONPre-Procedure Diagnose(s): Tachycardia-bradycardia syndrome (H CC); Pacemaker reprogramming/check; Pacemaker PATIENT NAME: Johnny Siddiqi : 1935: AGE: 84 y.o. Device In-office Evaluation Report 01/06/2020 Reason for evaluation: routine Indication for device: Tachycardia-bradycardia syndrome (HCC) (I49.5, 427.81); Pacemaker (Z95.0, V45.01); Pacemake r reprogramming/check (Z45.018, V53.31) Patient was seated and device was interrogated [...] for adequate safety margins. Summary of findings: Events: 10 AMS episodes with longest being 30 sec on 01/01/2020 showing atrial tachycardia with ventricular paced response. Heart rate histogram shows minimal distribution. Atrial pacing >99%, Ventricular pacing 2.6 %. There is a normal and stable device function. Estimated remaining battery longevity is 10-10.4 years. Current underlying rhythm: Junctional with no intrinsic P wave down to 30 beats per minute. Please see the scanned Paceart report and device PDF for further details. Electronically si gned by AMANDA Hurtado at 01/06/2020 2:26 PM PDTdocumented in this encounter Plan of [...] Dx); | | | | | [place] [address] | Pacemaker Dual | | | | | [phone] | Chamber, MRI | | | | | | compatible, 05/14/17 | | | | | | [facility]; | | | | | | 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) | +--------+ + + + + | 01/05/ | Office | Cardiology | Emely Gabriel, | | | 2020 | Visit | | [facility] [address] | | | | | | [place] | | | | | | [address] | | | | | | | [...] Implant | e | Tachycardia-bradycar | starting 01/06/2020 | | | | | pablo syndrome (HCC) | until 01/05/2021, 1 | | | | | Pacemaker | completed | | | | | reprogramming/check | | | | | | Pacemaker Dual | | | | | | Chamber, MRI | | | | | | compatible, 05/14/17 | | | | | | [facility] | | + + +--------+ + + | Pulmonary function | PFT | Routin | Chronic | 1 Occurrences | | test | | e | obstructive | starting 01/06/2020 | | | | | pulmonary disease, | until 01/05/2021 | | | | | unspecified COPD | | | | | | type (HCC) | | + + +--------+ + + | T4, Free | Lab | Routin | Persistent atrial | Expected: | | | | e | fibrillation (HCC) | 01/06/2020, Expires: | | | | | | 01/05/2021 | + + +--------+ + + | TSH | Lab | Routin | Persistent atrial | Expected: | | | | e | fibrillation (HCC) | 01/06/2020, Expires: | | | | | | 01/05/2021 | + + +--------+ + + documented as of this encounter Procedures + +--------+ + + + | Procedure Name | Priori | Date/Time | Associated Diagnosis | Comments | | | ty | | | | + +--------+ + + + | ECG 12 LEAD | Routin | 01/06/2020 | Persistent atrial | Results for this | | | e | 12:11 PM | fibrillation (HCC) | procedure are in the | | | | PDT | | results section. | + +--------+ + + + | DEVICE INTERROGATION | Routin | 01/06/2020 | | Results for this | | | e | 12:00 AM | Tachycardia-bradycar | procedure are in the | | | | PDT | pablo syndrome ([facility]) | results section. | | | | | Pacemaker | | | | | | reprogramming/check | | | | | | Pacemaker Dual | | | | | | Chamber, MRI | | | | | | compatible, 05/14/17 | | | | | | [facility] [place] | | + +--------+ + + + | DEVICE INTERROGATION | Routin | 01/06/2020 | | Results for this | | | e | 12:00 AM | Tachycardia-bradycar | procedure are in the | | | | PDT | pablo syndrome ([facility]) | results section. | | | | [...] in this encounter Results ECG 12 lead (01/06/2020 12:11 PM PDT) + + + + + [...] + + + + | P-R | 268 | ms | [facility] | | | INTERVAL | | | | | + + + + + + | QRS | 178 | ms | [facility] | | | DURATION | | | | | + + + + + + | Q-T | 476 | ms | [facility] | | | INTERVAL | | | | | + + + + + + | Q-T | 476 | ms | [facility] | | | INTERVAL | | | | | | (CORRECTED) | | | | | + + + + + + | QRS AXIS | -16 | degrees | [facility] | | + + + + + + | T AXIS | 142 | degrees | [facility] | | + + + + + + | INTERPRETAT | Atrial-paced rhythm with | | [facility] | | | ION TEXT | prolonged AV | | | | | | conductionLeft bundle | | | | | | branch blockAbnormal | | | | | | ECGWhen compared with | | | | | | ECG of 31-JUL-2018 | | | | | | 10:32,T wave inversion | | | | | | more evident in Lateral | | | | | | leadsConfirmed by | | | | | | BASIA BIRD MD | | | | | | ([id number]) on 01/07/2020 | | | | | | 11:35:07 AM | | | | + + [...] | + +---------+ + + Device Interrogation (01/06/2020 12:00 AM PDT) + + + | Narrative | Performed At | + + + | Emely Gabriel, | PACEART | | [facility] 01/06/2020 2:26 PM PATIENT NAME: Johnny Siddiqi : | | | 1935: AGE: 84 y.o. Device In-office Evaluation Report | | | 01/06/2020 Reason for evaluation: routineIndication for | | | device:Tachycardia-bradycardia syndrome (HCC) (I49.5, 427.81); | | | Pacemaker (Z95.0, V45.01); Pacemaker reprogramming/check (Z45.018, | | | V53.31) Patient was seated and device was interrogated (with | | | programming changes made). Test was performed and interpreted by me. | | | Device parameters, battery status, percentages pacing and significant | | | arrhythmias were reviewed. Heart rate histograms were assessed for | | | adequate heart rate response and any alerts reviewed. Appropriate lead | | | impedance testing was performed. Pacing impedances were reviewed for | | | any significant changes. Sensing tests were performed by decreasing | | | LRL. Adequacy of pacing thresholds were tested by increasing LRL for | | | each lead and recorded for loss of capture. Final outputs were | | | assessed for adequate safety margins. Summary of findings:Events: 10 | | | AMS episodes with longest being 30 sec on 01/01/2020 showing atrial | | | tachycardia with ventricular paced response. Heart rate histogram | | | shows minimal distribution. Atrial pacing >99%, Ventricular pacing | | | 2.6%.There is a normal and stable device function.Estimated remaining | | | battery longevity is 10-10.4 years.Current underlying rhythm: | | | Junctional with no intrinsic P wave down to 30 beats per minute. | | | Please see the scanned Paceart report and device PDF for further | | | details. | | |recorded for loss of capture. Final outputs were assessed for | | |adequate safety margins. | | | | | |Summary of findings: | | |Events: 10 AMS episodes with longest being 30 sec on 01/01/2020 | | |showing atrial tachycardia with ventricular paced response. | | |Heart rate histogram shows minimal distribution. Atrial pacing | | |>99%, Ventricular pacing 2.6%. | | |There is a normal and stable device function. | | |Estimated remaining battery longevity is 10-10.4 years. | | |Current underlying rhythm: Junctional with no intrinsic P wave | | |down to 30 beats per minute. | | |Please see the scanned Paceart report and device PDF for further | | |details. | | + + + + + | Procedure Note | + + | Emely Gabriel ARNP - 01/06/2020 12:45 PM PDT PATIENT NAME: Johnny Siddiqi : | | 1935: AGE: 84 y.o.Device In-office Evaluation Report01/06/2020 Reason for | | evaluation: routineIndication for device:Tachycardia-bradycardia syndrome (HCC) (I49.5, | | 427.81); Pacemaker (Z95.0, V45.01); Pacemaker reprogramming/check (Z45.018, V53.31) | | Patient was seated and device was interrogated (with programming changes made). Test | | was performed and interpreted by me. Device parameters, battery status, percentages | | pacing and significant arrhythmias were reviewed. Heart rate histograms were assessed | | for adequate heart rate response and any alerts reviewed. Appropriate lead impedance | | testing was performed. Pacing impedances were reviewed for any significant changes. | | Sensing tests were performed by decreasing LRL. Adequacy of pacing thresholds were | | tested by increasing LRL for each lead and recorded for loss of capture. Final outputs | | were assessed for adequate safety margins.Summary of findings:Events: 10 AMS episodes | | with longest being 30 sec on 01/01/2020 showing atrial tachycardia with ventricular | | paced response. Heart rate histogram shows minimal distribution. Atrial pacing >99%, | | Ventricular pacing 2.6%.There is a normal and stable device function.Estimated remaining | | battery longevity is 10-10.4 years.Current underlying rhythm: Junctional with no | | intrinsic P wave down to 30 beats per minute. Please see the scanned Paceart report | | and device PDF for further details. | |Events: 10 AMS episodes with longest being 30 sec on 01/01/2020 showing atrial tachycardia with ventricular paced response. | |Heart rate histogram shows minimal distribution. Atrial pacing >99%, Ventricular pacing 2.6 %. | |There is a normal and stable device function. | |Estimated remaining battery longevity is 10-10.4 years. | |Current underlying rhythm: Junctional with no intrinsic P wave down to 30 beats per minute. | |Please see the [...] + + | Coronary artery disease involving [place] coronary artery of [place] heart without | | angina pectoris - Primary | + + | Essential hypertension Unspecified essential hypertension | + + | Pulmonary HTN (HCC) Other chronic pulmonary heart diseases | + + | Chronic diastolic congestive heart failure (HCC) Chronic diastolic heart failure | + + | Persistent atrial fibrillation ([facility]) Atrial fibrillation | + + | Tachycardia-bradycardia syndrome ([facility]) Sinoatrial node dysfunction | + + | Status post mechanical aortic valve replacement | + + | Pacemaker reprogramming/check Fitting and adjustment of cardiac pacemaker | + + | Pacemaker Dual Chamber, MRI compatible, 05/14/17 [facility] Cardiac pacemaker | | in situ | + + | Chronic obstructive pulmonary disease, unspecified COPD type (HCC) | + + | Remote Device Interrogation - Primary Fitting and adjustment of cardiac pacemaker | + + | Pacemaker Dual Chamber, MRI compatible, 05/14/17 [facility] Cardiac pacemaker | | in situ | + + | 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
--- OUTSIDE RECORDS SUMMARY | ~2020-06-28 | XMS | Encounter Summary ---
Demographics + + + | Address | [address] | | | [place] [address] | + + + | Home Phone | | + + + | Preferred Language | Unknown | + + + | Marital Status | | + + + | Protestant Affiliation | 1061 | + + + [...] Team Providers + +------+ + | Care Principal Trainer Name | Role | Phone | + [...] Monitor | CARDIOLOGY [address] [place] | Interrogation | | | | [place], | [place], | (Primary Dx); | | | | [place] [address] | [place] [address] | Pacemaker Dual | | | | [phone] | [phone] | Chamber, MRI | | | | [...] Paceart documentation and remote PDF scanned into [facility] for remote interrogation re sults. Data [...] Interrogation | | | | | [place], | (Primary Dx); | | | | | [place] [address] | Pacemaker Dual | | | | | [phone] | Chamber, MRI | | | | | | compatible, 05/14/17 | | | | | | [facility]; | | | | | | 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) | +--------+ + + + + | 01/05/ | Office | Cardiology | Emely Gabriel, | | | 2020 | Visit | | LEACHER [address] | | | | | | St [place], [place] | | | | | | [address] | | | | | | | [...] Cruzito | PACEART | | MD Marge 07/30/2019 6:17Date of Remote Interrogation: | | | 07/22/19 Refer to Paceart documentation and remote PDF scanned into | | | [facility] for remote interrogation results. Data collected [...] | |atrial lead only. | | |Johnny Joiner notified and patient scheduled for device [...]
--- OUTSIDE RECORDS SUMMARY | ~2020-06-28 | XMS | Encounter Summary ---
Demographics + + + | Address | [address] | | | [place] [address] | + + + | Home Phone [...] Team Providers + +------+ + | Care Branch Service Representative Name | Role | Phone | + [...] | 04/20/ | Implant | [facility] | [place], | Remote Device | | 2018 | Monitor | CARDIOLOGY [address] | Interrogation | | | | [place], | [place], | (Primary Dx); | | | | [place] [address] | [place] [address] | Pacemaker Dual | | | | [phone] | [phone] | Chamber, MRI | | | | [...] Paceart documentation and remote PDF scanned into [employer] for remote interrogation results. Data collected by [...] Dx); | | | | | [place] [address] | Pacemaker Dual | | | | | [phone] | Chamber, MRI | | | | [...] [place] | | | | | | [address] | | | | | | | [...] | documentation and remote PDF scanned into [employer] for remote | | | interrogation results. [...]
--- OUTSIDE RECORDS SUMMARY | ~2020-06-28 | XMS | Encounter Summary ---
Demographics + + + | Address | [address] | | | [place] [address] | + + + | Home Phone | | + + + | Preferred Language | Unknown | + + + | Marital Status | | + + + | Zoroastrian Affiliation | 1061 | + + + | Race | White | + + + | Ethnic Group | Not or | + + + Author + + + | Author | [facility] | | | and [place] | + + + | Organization | [facility] | | | and [...] Team Providers + +------+ + | Care Iron Caster Name | Role | Phone | + +------+ + | Antonio Paulino MD | PCP | | + +------+ + Encounter Details +--------+ + + + + | Date | Type | Department | Care Team | Description | +--------+ + + + + | 06/04/ | Hospital | [facility] | Emely Gabriel, | Coronary artery | | 2018 | Encounter | MED CTR XRAY [address] | BUSINESS DEVELOPER [address] | disease involving | | | | [place] | [place], [place] | tun[place]biloxi coronary | | | | [place] [address] | [address] | artery of [place]i | | | | [phone] | | heart without angina | | [...] Bird; | | | | | | keno terminal operator current | | | | | [...] (Primary Dx); | | | | | [place] [address] | Pacemaker Dual | | | | | [phone] | Chamber, MRI | | | | | | compatible, 05/14/17 | | | | | | [facility]; | | | | | | 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) | +--------+ + + + + | 01/05/ | Office | Cardiology | Emely Gabriel, | | | 2020 | Visit | | BUSINESS DEVELOPER [address] | | | | | | [place], [place] | | | | | | [address] | | | | | | | [...] the | | | | PDT | tun[place]i coronary | results section. | | | | | artery of tun[place]-bil[place]i | | | | | | heart [...] Marge | | | | | | keno terminal operator current | | | | | [...] + + | Coronary artery disease involving [place] coronary artery of [place] heart without | | angina pectoris | [...] | in situ | + + | long-term current use of amiodarone | + + | Remote Device Interrogation - Primary Fitting and adjustment of cardiac pacemaker | + + | Pacemaker Dual Chamber, MRI compatible, 05/14/17 [facility] [place] Cardiac pacemaker | | in situ | + + | 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
--- OUTSIDE RECORDS SUMMARY | ~2020-06-28 | XMS | Encounter Summary ---
Demographics + + + | Address | [address] | | | [place] [address] | + + + | Home Phone [...] Team Providers + +------+ + | Care Air Quality Consultant Name | Role | Phone | [...] + + | 03/16/ | Hospital | [facility] | Cary Jain, | Acute on chronic | | 2016 - | Encounter | MED CTR ICU [address] | diastolic | | | | [place], | [place], [place] | (congestive) heart | | 03/21/ | | [place] [address] | [id number] | failure (HCC) | | 2015 | | [phone] | | (Primary Dx); | | | | | Sy Hopkins MD | Persistent atrial | | | | | [address] | fibrillation (HCC); | | | | | [place], [place] | H/O aortic valve | | | | | [id number] | replacement; Hard of | | | | | | hearing, | | | | | | unspecified | | | | | | laterality; CRUZITO | | | | | | (obstructive sleep | | | | | | apnea); Pulmonary | | | | | | HTN ([facility]); Venous | | | | | | stasis of both lower | | | | | | extremities; Atrial | | | | | | fibrillation with | | | | | | RVR ([facility]); | | | | | | Paroxysmal atrial | | | | | | fibrillation ([facility]); | | | | | | Acute renal failure, | | | | | | unspecified acute | | | | | | renal failure type | | | | | | ([facility]); Atrial | | | | | | fibrillation, | | | | | | unspecified type | | | | | | ([facility]); Coronary | | | | | | artery disease | | | | | | involving jena | | | | | | heart [...] | | | | ([facility]); Hard of | | | | [...] of diastolic CHF, HTN, cirrhosis, stroke[facility] of [facility] who w as transferred from [facility] with shortness of breath and found to [...] diastolic CHF. He is being discharged to [facility] in [place] for skill fidelina g Code Status: Full Code Disposition: [facility] Discharge Condition: good Discharge Medications New Medications [...] signed by: Galen Davis MD, 03/21/2016 12:16 [facility] documented in this encounter Medications at [...] Interactions: fenofibrate, levothyroxine, amiodarone NON-valvular AFIB patients: [id number] score (max 9): 7 [x]CHF, [x]HTN, [x]Age > 75 (2), []DM, [x] prior CVA,VTE (2), [x]IL,PAD, []Age 64-74, []Fe male Recent Labs Lab [...] 2-3 for atrial fibrillation Patient transferred from [place] due to uncontrolled atrial fibrillation/flutter Amiodarone initiated 03/18 Plan: 1. Warfarin 6mg daily to start 03/21/16 2. Labs in AM: INR, Hgb, Hct 3. Pharmacist follow daily Warfarin Dosing Nomogram Warfarin Dosing Expectations Per P&T-approved Galen Preston MD - 03/20/2016 6:57 PM PDT . [facility] PMG Hospitalist Progress Note Johnny Siddiqi [...] as outlined above. Galen Davis 03/20/2016 18:58 [facility] Portions of this chart may have been created with [employer] voice recognition software. Occasi onal wrong-word or sound-alike substitutions may have occurred due to the inherent carter itations of voice recognition software. Please read the chart carefully and recognize, using context, where these substitutions have occurred iann Rhoades, PharmD - 03/20/2016 10:33 AM PDT . [...] 5mg on Sat and Managed by: TBD ([place]) Sensitizers: age, CHF Drug Interactions: fenofibrate, levothyroxine, amiodarone NON-valvular AFIB patients: [id number] score (max 9): 7 [x]CHF, [x]HTN, [x]Age > 75 (2), []DM, [x] prior CVA,VTE (2), [x]IL,PAD, []Age 64-74, []Fe male Recent Labs Lab [...] 2-3 for atrial fibrillation Patient transferred from [place] due to uncontrolled atrial fibrillation/flutter Amiodarone initiated [...] warfarin 7mg except 5mg on Sun and Th Managed by: TBD ([facility] [place]) Sensitizers: age, CHF Drug Interactions: fenofibrate, levothyroxine, amiodarone NON-valvular AFIB patients: [id number] score (max 9): 7 [x]CHF, [x]HTN, [x]Age > 75 (2), []DM, [x] prior CVA,VTE (2), [x]IL,PAD, []Age 64-74, []Fe male Recent Labs 03/19/16 [...] 2-3 for atrial fibrillation Patient transferred from [place] due to uncontrolled atrial fibrillation/flutter Amiodarone initiated 03/18 Plan: 1. HOLD warfarin today 2. Pharmacist to dose tomorrow based in INR 3. Pharmacist follow daily Warfarin Dosing Nomogram Warfarin Dosing Expectations Per P&T-approved Sy Ibarra MD - 03/19/2016 8:45 AM PDT [facility] PMG Hospitalist Progress Note Johnny Siddiqi [...] as outlined above. Sy Hopkins 03/19/2016 8:45 [facility] Portions of this chart may have been created with [employer] voice recognition software. Occasi onal wrong-word or sound-alike substitutions may have occurred due to the inherent carter itations of voice recognition software. Please read the chart carefully and recognize, using context, where these substitutions have occurred arker, Sy Ac MD - 0 03/18/2016 8:50 AM PDT [facility] PMG Hospitalist Progress Note Johnny Siddiqi [...] as outlined above. Sy Hopkins 03/18/2016 8:50 [facility] Portions of this chart may have been created with [employer] voice recognition software. Occasi onal wrong-word or [...] on Sun and Thurs Managed by: TBD ([place] requested by [place]) Sensitizers: age, CHF Drug Interactions: fenofibrate, levothyroxine NON-valvular AFIB patients: [id number] score (max 9): 7 [x]CHF, [x]HTN, [x]Age > 75 (2), []DM, [x] prior CVA,VTE (2), [x]IL,PAD, []Age 64-74, []Fe male Recent Labs Labs 03/16 03/17 03/18 Hgb 12.2 11.3 11.8 Hct 37.2 35.8 37.6 Platelets 166 176 190 INR 2.87 3.09 3.41 Warfarin Dose 7 mg 5 mg Hold dose Assessment: The INR is 3.41 above the target range of 2-3 for atrial fibrillation Patient transferred from [place] due to uncontrolled atrial fibrillation/flutter Plan: 1. Will hold warfarin dose today (03/18/16) 2. Pharmacist to dose tomorrow based in INR 3. Pharmacist follow daily Warfarin Dosing Nomogram Warfarin Dosing Expectations Per P&T-approved ob isch, Nancy Lguo PharmD - 03/17/2016 11:19 AM PDT WARFARIN [...] on Sun and Thurs Managed by: TBD ([place] requested by [place]) Sensitizers: age, CHF Drug Interactions: fenofibrate, levothyroxine NON-valvular AFIB patients: [id number] score (max 9): 7 [x]CHF, [x]HTN, [x]Age > 75 (2), []DM, [x] prior CVA,VTE (2), [x]IL,PAD, []Age 64-74, []Fe male Recent Labs Lab 03/17/16 0438 03/16/16 1306 CREA 1.49* 1.55* HGB 11.3* 12.2* HCT 35.8* 37.2* PLT 176 166 INR 3.09* 2.87* Date 03/16 03/17 Hgb 12.2 11.3 Hct 37.2 35.8 Platelets 166 176 INR 2.87 3.09 Warfarin Dose 7 mg 5 mg Assessment: The INR is within the target range of 2-3 for atrial fibrillation Patient transferred from [place] due to uncontrolled atrial fibrillation/flutter Plan: 1. Will lower warfarin to 5mg po x1 2. Medication profile reviewed for potential drug-drug interactions 3. Labs in am: Hgb, Hct, INR 4. Warfarin education received No. (STEEL SPAR OPERATOR MED) 5. Pharmacist to follow daily Warfarin Dosing Nomogram Warfarin Dosing Expectations Per P&T-approved Electronically signed by: Nancy Rizzo, PHARMD 03/17/2016 11:19 Sy Ibarra MD - 03/17/2016 9:37 AM PDT [facility] PMG Hospitalist Progress Note Johnny Siddiqi [...] as outlined above. Sy Hopkins 03/17/2016 9:37 [facility] Portions of this chart may have been created with [employer] voice recognition software. Occasi onal wrong-word or [...] 5mg on Sat and Managed by: TBD ([facility] [place]) Sensitizers: age, CHF Drug Interactions: fenofibrate, levothyroxine NON-valvular AFIB patients: [id number] score (max 9): 7 [x]CHF, [x]HTN, [x]Age > 75 (2), []DM, [x] prior CVA,VTE (2), [x]IL,PAD, []Age 64-74, []Fe male Recent Labs Lab 03/16/16 1306 CREA 1.55* HGB 12.2* HCT 37.2* PLT 166 INR 2.87* Date 03/16 Hgb 12.2 Hct 37.2 Platelets 166 INR 2.87 Warfarin Dose 7 mg Assessment: The INR is within the target range of 2-3 for atrial fibrillation Patient transferred from [place] due to uncontrolled atrial fibrillation/flutter Plan: 1. Warfarin 7mg po x1 ordered on 03/16/16 2. Medication profile reviewed for potential drug-drug interactions 3. Labs in am: Hgb, Hct, INR 4. Warfarin education received No. (STEEL SPAR OPERATOR MED) 5. Pharmacist to follow daily Warfarin Dosing Nomogram Warfarin Dosing Expectations Per P&T-approved Electronically signed by: Diann Rhoades, PHARMD 03/16/2016 13:47 documented in th is encounter H&P Notes Cary Jain MD - 03/16/2016 1:07 PM PDTFormatting of this note might be different fr om the original. [facility] HISTORY AND PHYSICAL Pt. Name/Age/: Johnny Siddiqi 80 y.o. 1935 Date of admission: 03/16/2016 Admitting Physician: Cary Jain MD Primary Care Provider: Mauricio Goldberg MD CHIEF COMPLAINT: Shortness of breath HISTORY OF PRESENT ILLNESS: This is a 80 y.o. male who presented on transfer from [facility] where he h as been hospitalized for [...] (Coumadin) yet, you need daily Protimes at [facility] in [place] starting Saturday and be sure the [place] Warfarin Cli iggy calls you every day [...] signed by: Cary Jain MD 03/16/2016 13:08 [facility] Portions of this chart may have been created with [employer] voice recognition software. Occasi onal wrong-word or [...] Goal Evaluation: Johnny is being transferred to [facility] in [place] for IP rehab. He was started on amiodarone while here and restarted on Warfarin with next PT/INR on March 23. He transferre d using a FWW. He is only needing O2 bled into his BIPAP while sleeping. He is on room air during the day. Family is aware of discharge plan. VSS. [facility] transporter here to t ion patient. NF Transfer - Taniya gould, Galen Song MD - 03/21/2016 12:14 PM PDTFormatting of this note might be different fro m the original. HALFWAY FACILITY TRANSFER ORDERS Patient Name: Johnny Siddiqi Patient : 1935 Gender: male Date of Admission: 03/16/2016 Date of Discharge: 03/21/2016 Admitting Provider: Cary Jain MD Discharging Provider: Galen Davis MD Consultants: cardiology PCP: [facility] transferring to: [facility] Provider after transfer: Per SNF CODE STATUS: [x] Attempt CPR [] Do not resuscitate If patient is pulseless and not breathing, RN/HOTEL SUPERINTENDENT may pronounce . Advanced Directives included: [] [...] for this patient. Diet: [] As tolerated COMMUNICATIONS AND SIGNALS SUPERVISOR may upgrade or downgrade diet as condition Indicates. [] RN may downgrade diet as indicated. Type: [x] Continue current diet of: Diet and Supplements Diet Diet general; fat and cholesterol modified; Effective Now Number of Occurrences: Until Specified Order Questions: Type Diet general Fat or cholesterol modifications fat and cholesterol modified [] Other: Consistency/Precautions: [] Whole [] Thin Liquids [] Cut-up [] Roberts Thick [] Advanced Chopped [] Honey Thickened [] Chopped [] Advanced Ground [] 1:1 feedings [] Ground/Pureed [] Other: Tube Feedings: [] PEG [] GT [] JT [] NGT [] Formula type: (Certified Welding Inspector may change/substitute if indicated). [] Continuous Rate: [...] [x] OT Evaluation & Management for: [] COMMUNICATIONS AND SIGNALS SUPERVISOR Evaluation &Management for: [] Other: Wound/Skin Care: [...] Galen Davis MD, certify that post hospital mcfp care is medically nec essary on a continuing basis for any of the conditions for which he/she received care during this hospitalization. Check one: [x] Skilled [] Intermediate Additional Orders/Instructions: Physician's signature:___Galen Davis 03/21/2016 12:1 [facility] USE ONLY: [] Admitting orders verbally reviewed with Admitting Physician, modified where appropriate, and approved. Verbal Order from Date: Time: _ RN name: RN signature: [] Admitting orders reviewed, modified where appropriate, and approved. Physician's signature: Date: Time: lan of Care - Ana Villeda i, Felling Machine Operator-Clinical - 03/21/2016 11:59 AM PDTProblem: Discharge Planning [...] message since she is in flight to [place] today. This CM also called both of his sons, Kris and Rl and Kris was fine with the discharge plan to [facility] and he knew where this was located in [place]. Rl stated he was on his way [...] OK to arrange transport. Pkt completed for [facility] including the original completed PASRR, and [...] min talking with him and he with Matthew from [facility] and he has decid ed now to go there after she gave him some more information. Let patient and his RN know the transport time would be about 20-30 min away. Patient was also letting his son Chris know t hat he was going there today, although this CM let Chris, Cassandra, and Rl know about his di scharge to [facility] today. Cassandra, RN, [facility], who just arrived in [place], returned her ca ll and she was [...] he arrived. T/C to Elma at the [facility], letting her know that patient is being discharged to rehab at [facility] in [place] today. Electronically signed by: Ana Dietrich [facility] 03/21/2016 15:47 la n of [facility] Emergency Department - Julianna Loja OT - 03/21/2016 11:52 [...] 40 minutes Subjective: "I am going to [facility] soon." Objective: Pt. was approached for OT, and states he had been up and walked with PT a bit ago. He repo rts he had been up to bathroom and had a BM and a sponge bath. Pt. reports he may be going to [facility] today. Spoke with rn transitional care and she reports she is working with [...] from multiple contributors. ADLs Toileting, Level of [place]: minimum assist (75% patient effort), supervision required Toileting Assess/Train, Position: sitting, standing Toileting Assess/Train, Impairments: impaired balance IADLs Therapeutic Exercise Functional Endurance Cognitive Cognitive Tests Bed Mobility Transfers Toilet, Level of [place]: contact guard assist, verbal cues required Wheelchair [...] 03/21/2016 11:48 lan of Care - Co eusebioradha Pamela Nichol, PT - 03/21/2016 10:00 AM PDTFormatting of [...] Dementia Alcoholic cirrhosis (HCC) 2003 CT scan 2004 at [facility] Endocarditis 2009 [...] red here following 5 day stay at [facility]. he has a hx of CAD, aortic [...] be from multiple contributors. Gait Level of [place] : contact guard assist Assistive Device: cane (straight, single point) Distance (feet): 100 Impairments: impaired balance, strength decreased, postural control impaired Transfers Sit-Stand, Level of [place]: contact guard assist, verbal cues required Stand-Sit, Level of [place]: verbal cues required, contact guard assist [id number], Assistive Device: cane (straight, single point) Impairments: impaired balance, strength decreased, postural control impaired Bed Mobility Assistive Device: bed rails Supine to Sit, Level of [place]: minimum assist (75% patient effort) Sit to Supine, Level of [place]: minimum assist (75% patient effort) Impairments: impaired balance, strength decreased Balance Sitting Balance: Static: normal balance Sitting Balance: Dynamic: good balance Standing Balance: Static: (Good-) Standing Balance: Dynamic: (Fair+) ROM BLE functional Strength L LE Strength: 4/5 R LE Strength: 4/5 Trunk strength: 4-/5 STG GOALS Bed Mobility Goal, Activity Type: all bed mobility activities [place] Level: modified independence Assistive Device: bed rails Time to Achieve: 5 - 7 days Goal Status: new, progressing toward goal Transfer Training Goal, Activity Type: sit to stand/stand to sit [place] Level: modified independence Assistive Device: cane (straight, single point) Time to Achieve: 5 - 7 days Goal Status: new, progressing toward goal Gait Training Goal, [place] Level: modified independence Assistive Device: cane (straight, [...] functional activity tolerance following prolonged hospitalization between [facility] and [facility]. He was able to perform transfers [...] stable on 1 lpm o2. lan of [facility] Emergency Department - Lynnette Gallego RN - 03/21/2016 5:01 [...] with FWW to void. SBA. lan of [facility] Department - Jacqueline Neal OT - 03/20/2016 5:37 [...] cirrhosis (HCC) 2004 CT scan 2004 at [facility] Endocarditis 2009 [...] who presents to therapy for Transfer from [facility] following a 5 day hospital stay w/ diastolic dysfunction & inability to control HR. Pt w/ A-fib w/ RVR. Patient is right handed. OT Diagnosis: Impaired ADLs, decreased functional mobility, decreased safety awareness Previous Level of Function: Per pt report, independent in his home. Ambulated w/ a cane, h as 4-wheeled scooter outdoors sometimes. Role/Relationships: Son reportedly returning from [place] to help him? Living Environment/Accessibility: Lives With: [...] (3-4 OT addt'l OT visits) until discharge fro therapy or discharged from the hospital. Occupational [...] from multiple contributors. ADLs Toileting, Level of [place]: minimum assist (75% patient effort), supervision required Toileting Assess/Train, Position: sitting, standing Toileting Assess/Train, Impairments: impaired balance Transfers Toilet, Level of [place]: contact guard assist, verbal cues required STG [...] OT, 03/20/2016 17:32 lan of Care - R Yodit cohen, TORPEDO WORKER - 03/20/2016 5:14 PM PDTProblem: Patient Care [...] other respiratory needs identified . lan of Care - Ana Dietrich, Felling Machine Operator-Clinical - 03/20/2016 4:15 PM PDTProblem: Discharge Planning Goal: Patient will be discharged in a safe manner Outcome: Improving This received call from KORINA Garcia, from his Family Care Medicare, [facility], and she stated t hat patient would [...] to have some HH come out thru [facility] at discharge, as well as some PT OT if needed. He is also agreeable to a or SNF stay if not safe to be home alone, if his son does not arrive prior to his discharge . This CM also made a call and spoke to Padmini at the [facility] to let her know that patient is here; that they were already gone by the time this CM could call on Saturday regarding this nyla elkins's admission. Padmini stated that per documentation, patient was sent to [facility] Telehealth m onitoring, and that this is different than being seen at a [place] facility and then being referr ed to a hospital, thus, his stay will not be covered by the [place]. She confirmed that patient is not service [...] to go home.Electronically signed by: Ana Dietrich [facility] 03/20/2016 16:15 Faxed initial SNF referral and face sheet to [facility] # [id number], [phone], and called Matthew, to let her know that this referral was on its way as a plan B. Since nyla elkins lives in [place], he signed the preference form for [facility] for his rell rt term rehab there and placed signed form in ghost chart. Electronically signed by: Ana Dietrich [facility] 03/20/2016 16:31 lquita flynn of [facility] - Emily Medel Chaplain - 03/20/2016 11:30 AM PDTProblem: Spiritual Distr ess, Risk/Actual (Adult,Obstetrics,Pediatric) Goal: Spiritual Well-being Patient will demonstrate the desired outcomes by discharge/transition of care. Spiritual Care Johnny Siddiqi is a 80 y.o. male who is admitted for A-fib ([facility]) [I48.91]. Seismograph Computer visit was part of routine rounding. Spiritual [...] acceptance of his current condition. Spiritual Interventions: Seismograph Computer listened actively as patient was engaged in conversation. Seismograph Computer also affirmed h is confidence in God's sovereignty and care. Spiritual Outcomes: Patient expressed appreciation for the shoer visit. Spiritual Goals/Follow up: Seismograph Computer will visit patient as needed or requested. If any additional spiritual issues seamus e, please contact the shoer. lan of Care - Lynnette Bella RN [...] discomfort. Pt was in a-fib in the 110's to 130's this am. Pt was cardi [...] Needs & Preferences Outcome: Improving Admit from [facility] 03/16 for uncontrolled afib/flutter. Started Amiodarone gtt. [...] 2 8-11 3 12-14 4 15+ 5 incident response manager score 3 No further interventions this shift lan of [facility] - Arun Mak RN - 03/18/2016 7:20 AM PDTProblem: Patient Care Overview (Adult) Goal: Personalization Needs & Preferences Outcome: Unchanged Admit from [facility] 03/16 for uncontrolled afib/flutter. PO dilt, still in A.Flutter bu t rates have been 80's-123s. On 2 L O2. VSS. A&O (can have confusion at times, early hayden lowe, carmen roxy lan of [facility] Emergency Department - Donato Reid, VALARIE - 03/18/2016 12:27 AM PDTProblem: Patient Care [...] of Care - Aleah, Maria Antonia Joya TORPEDO WORKER - 03/17/2016 7:04 PM PDT Problem: Patient [...] has a good, productive cough. lan of [facility] Department - Arun Nicole RN - 03/17/2016 7:50 AM PDTProblem: Patient Care Overview (Adult) Goal: Personalization Needs & Preferences Outcome: Improving from [facility] 03/16 for uncontrolled afib. Was there since 03/12 for CHF exacerbation an d afib.Has stage III kidney disease. Hx of CABG. Alert but confused, diltiazem gtt at 5mg/hr , was off for a while, remains A-flutter mostly 70s-80s but 130s with activity, o2 2L, sats 90s, trop 0.05-0.06, VSS, not impulsive lan of [facility] Emergency Department - Jp Sampson RRT - 03/16/2016 5:50 PM PDTFormatting of this note might be different from original. Problem: Patient Care Overview (Adult) Goal: [...] lan of Care - Ana Villeda i, Felling Machine Operator-Clinical - 03/16/2016 5:50 PM PDTProblem: Discharge Planning Goal: Patient s discharge needs will be identified in a timely manner Outcome: Unchanged This CM met with patient, his [id number], and his son(also named Johnny Siddiqi) in room to discuss his discharge plans. He reports that he lives in his youngest son's house alone right now since his son works aw ay from home, but will be coming home on Saturday, per his older brother Johnny, since he n o longer has a job. His son's small house is in [place], [place]. The [facility] took his mixer driver's license away from him so Johnny takes him around wherever he n eeds to go. His new [facility] Dr[facility]is [facility] since Dr. Goldberg retired. Patient does have Medicare Family Care Advantage now and reports that he does not have Medi care B only A and Veterans insurance. Both he and his son stated that the [facility] sent him [facility] from [facility] where he has also be en there since Saturday night as an inpatient. He uses the [facility] mail order for his termite technician meds and also [facility] for some of the shorter term meds. He has a little doggie that keeps him company too at home. He has a power scooter that he uses outside since the house is too small. He uses a cane in side the house. He has a daughter, Fiordaliza, who is an RN that lives in [place] and she will be coming to visit [...] verify any information with them regarding his [employer] ce connection, and other support that he [...] of guera lang is coming over from [place] tomorrow. Talked with patient about a plan [...] back home. CM will need to contact [place] to see what services he is connected with once they are open aga in. Patient was talking about [employer] being set up, but need to confirm this information, since there may be some dementia.Electronically signed by: Ana Dietrich [facility] 03/16/2016 17: 50 [facility] Plan of Treatment +--------+ + + + + | Date | Type | Specialty | Care Team | Description | +--------+ + + + + | 07/20/ | Implant | Cardiology | Cruzito Bird, | Remote Device | | 2019 | Monitor | | [facility] | Interrogation | | | | | [facility] 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 | [place] | [phone] | | [facility] | | [address] | | | - LABORATORY | | [...] mL/min/1.73m2 | [facility] | | | Yemeni | RATE,ESTIMATED | | MEDICAL | | | | mL/min/1.39e0Waxg than | | CENTER - | | [...] | ine Ratio | | | [facility] | | [...] [address] | [place] | [phone] | | [facility] | | [address] | | | - LABORATORY | | [...] ST. | [address] | [place] | [phone] | | [facility] | | [address] | | | - LABORATORY | | [...] + | Few variant lymphs seen. | [facility] | | | [facility] | | | [facility] | | | - LABORATORY | + + + + + + + + | Performing | Address | City/State/Zipcode | Phone Number | | Organization | | | | + + + + + | [facility] | [address] | [place] | [phone] | | [facility] | | [address] | | | - LABORATORY | | [...] | | | | | | [facility] | | | | | | MEDICAL [...] [address] | [place] | [phone] | | [facility] | | [address] | | | - LABORATORY | | [...] | 1.30 | 0.60 - 1.30 | [facility] | | | | | mg/dL | [facility] | | | | | | MEDICAL | | | | | | CENTER - | | | | | | LABORATORY | | + + + + + + | eGFR, | 53 (L)Comment: | >=60 | [place] | | | non- | GLOMERULAR FILTRATION | mL/min/1.73m2 | [facility] | | | Yemeni | RATE,ESTIMATED | | MEDICAL | | | | mL/min/1.56q9Tynq than | | CENTER - | | [...] + | [facility] | [address] | [place], [place] | [phone] | | [facility] | | [address] | | | - LABORATORY | | [...] [address] | [place] | [phone] | | [facility] | | [address] | | | - LABORATORY | | [...] + | [facility] | [address] | [place] | [phone] | | [facility] | | [address] | | | - LABORATORY | | [...] | | | | | | [employer] | | | | | [...] [address] | [place] | [phone] | | [facility] | | [address] | | | - LABORATORY | | [...] | | | | | | [employer] | | | | | [...] [address] | [place] | [phone] | | [facility] | | [address] | | | - LABORATORY | | [...] | | | | | BINU CHARLTON ([id number]) on | | | | | | [...] | | | | | | [employer] | | | | | [...] [address] | [place] | [phone] | | [facility] | | [address] | | | - LABORATORY | | [...] | | Neutrophils | | K/uL | [facility] | [...] [address] | [place] | [phone] | | [facility] | | [address] | | | - LABORATORY | | [...] | | | | | mg/dL | [facility] | | | | | | MEDICAL | | | | | | CENTER - | | | | | | LABORATORY | | + + + + + + | eGFR, | 50 (L)Comment: | >=60 | [facility] | | | non- | GLOMERULAR FILTRATION | mL/min/1.73m2 | [facility] | | | Yemeni | RATE,ESTIMATED | | MEDICAL | | | | mL/min/1.58t9Rnhr than | | CENTER - | | [...] | 9.2 | 8.3 - 10.5 | [facility] | | | | | mg/dL | [facility] | | | | | | MEDICAL | | | | | | CENTER - | | | | | | LABORATORY | | + + + + + + | BUN/Creatin | 29.4 | | [facility] | | | ine Ratio | | | [facility] | | [...] [address] | [place] | [phone] | | [facility] | | [address] | | | - LABORATORY | | [...] [address] | [place] | [phone] | | [facility] | | [address] | | | - LABORATORY | | [...] + | [facility] | [address] | [place] | [phone] | | [facility] | | [address] | | | - LABORATORY | | [...] | | | | | | [employer] | | | | | [...] + | [facility] | [address] | [place] | [phone] | | [facility] | | [address] | | | - LABORATORY | | [...] | | | | | | [employer] | | | | | [...] + | [facility] | [address] | [place] | [phone] | | [facility] | | [address] | | | - LABORATORY | | [...] | | | | | | [employer] | | | | | [...] [address] | [place] | [phone] | | [facility] | | [address] | | | - LABORATORY | | [...] | | | Morphology | | | [facility] | | [...] [address] | [place] | [phone] | | [facility] | | [address] | | | - LABORATORY | | [...] | | | | | | [employer] | | | | | [...] [address] | [place] | [phone] | | [facility] | | [address] | | | - LABORATORY | | [...] | | Count | | | [facility] | | | | | | MEDICAL [...] | | Basophils | | K/uL | [facility] | | | | | [...] [address] | [place] | [phone] | | [facility] | | [address] | | | - LABORATORY | | [...] 1.39 (H) | 0.60 - 1.30 | [facility] | | | | | mg/dL | [facility] | | | | | | MEDICAL | | | | | | CENTER - | | | | | | LABORATORY | | + + + + + + | eGFR, | 49 (L)Comment: | >=60 | [facility] | | | non- | GLOMERULAR FILTRATION | mL/min/1.73m2 | [facility] | | | Yemeni | RATE,ESTIMATED | | MEDICAL | | | | mL/min/1.85f6Medb than | | CENTER - | | [...] + | [facility] | [address] | [place] | [phone] | | [facility] | | [address] | | | - LABORATORY | | [...] | | Time | | seconds | [facility] | | | | | | MEDICAL | | | | | | CENTER - | | | | | | LABORATORY | | + + + + + + | INR | 3.41 (H)Comment: Usual | 0.90 - 1.10 | [facility] | | | | Oral Anticoagulation | | [facility] | | | | Range: 2.0 - [...] [address] | [place] | [phone] | | [facility] | | [address] | | | - LABORATORY | | [...] ST. | [address] | [place], [place] | [phone] | | [facility] | | [address] | | | - LABORATORY | | [...] + | Chase Zepeda Results In - 03/18/2016 10:03 AM PDT EXAM: XR CHEST AP PORTABLE dated | | 03/18/2016 5:17 AMHISTORY: [facility] March 16, 2016.TECHNIQUE: A single portable [...] | | | | | | [employer] | | | | | [...] + + | [facility]. | [address] | [place] | [phone] | | [facility] | | [address] | | | - LABORATORY | | | | + + + + + Troponin I (03/17/2016 6:52 PM PDT) + + + + + + | Component | Value | Ref Range | Performed | Pathologist | | | | | At | Signature | + + + + + + | Troponin I | 0.05Comment: Reference | <0.06 ng/mL | [facility] | | | | Ranges:0.00-0.06 = [...] | | | | | | [employer] | | | | | [...] + + | Performing | Address | City/State/[facility] | Phone Number | | Organization | | | | + + + + + | [facility] | [address] | [place] | [phone] | | [facility] | | [address] | | | - LABORATORY | | | | + + + + + Troponin I (03/17/2016 12:35 PM PDT) + + + + + + | Component | Value | Ref Range | Performed | Pathologist | | | | | At | Signature | + + + + + + | Troponin I | 0.05Comment: Reference | <0.06 ng/mL | [facility] | | | | Ranges:0.00-0.06 = [...] | | | | | | [employer] | | | | | [...] + | [facility] | [address] | [place] | [phone] | | [facility] | | [address] | | | - LABORATORY | | [...] | | | | | | [employer] | | | | | [...] [address] | [place] | [phone] | | [facility] | | [address] | | | - LABORATORY | | [...] [address] | [place] | [phone] | | [facility] | | [address] | | | - LABORATORY | | [...] [address] | [place] | [phone] | | [facility] | | [address] | | | - LABORATORY | | [...] 1.49 (H) | 0.60 - 1.30 | [place] | | | | | mg/dL | [facility] | | | | | | MEDICAL | | | | | | CENTER - | | | | | | LABORATORY | | + + + + + + | eGFR, | 45 (L)Comment: | >=60 | [facility] | | | non- | GLOMERULAR FILTRATION | mL/min/1.73m2 | [facility] | | | Yemeni | RATE,ESTIMATED | | MEDICAL | | | | mL/min/1.12z8Npht than | | CENTER - | | [...] + | [facility] | [address] | [place] | [phone] | | [facility] | | [address] | | | - LABORATORY | | [...] [address] | [place] | [phone] | | [facility] | | [address] | | | - LABORATORY | | [...] | | | | | | [employer] | | | | | [...] [address] | [place] | [phone] | | [facility] | | [address] | | | - LABORATORY | | [...] | | | | Reference | | [facility] | | | | Ranges:0.00-0.06 = | [...] | | | | | | [employer] | | | | | [...] [address] | [place] | [phone] | | [facility] | | [address] | | | - LABORATORY | | [...] [address] | [place] | [phone] | | [facility] | | [address] | | | - LABORATORY | | [...] - 1.030 | [facility] | | | [place], | | | [facility] | | [...] [address] | [place] | [phone] | | [facility] | | [address] | | | - LABORATORY | | [...] [address] | [place] | [phone] | | [facility] | | [address] | | | - LABORATORY | | [...] ST. | [address] | [place] | [phone] | | [facility] | | [address] | | | - LABORATORY | | [...] | | | | | | [employer] | | | | | [...] + + | Performing | Address | City/State/[facility] | Phone Number | | Organization | | | | + + + + + | [facility] | [address] | [place] | [phone] | | [facility] | | [address] | | | - LABORATORY | | | | + + + + + B Type Natriuretic Peptide (03/16/2016 1:06 PM PDT) + + + + + + | Component | Value | Ref Range | Performed | Pathologist | | | | | At | Signature | + + + + + + | BNP | 1,028 (H) | <100 pg/mL | [facility] | [...] + | [facility] | [address] | [place] | [phone] | | [facility] | | [address] | | | - LABORATORY | | [...] + | [facility] | [address] | [place] | [phone] | | [facility] | | [address] | | | - LABORATORY | | [...] non- | GLOMERULAR FILTRATION | mL/min/1.73m2 | [facility] | | | [place]i | RATE,ESTIMATED | | MEDICAL | | | | mL/min/1.52f7Akyo than | | CENTER - | | [...] | | | | | mg/dL | [facility] | | | | | | MEDICAL | | | | | | CENTER - | | | | | | LABORATORY | | + + + + + + | Albumin | 3.4 | 3.2 - 5.0 g/dL | [facility] | | | | | | [facility] | | | | | | MEDICAL [...] + | [facility] | [address] | [place] | [phone] | | [facility] | | [address] | | | - LABORATORY | | [...] [address] | [place] | [phone] | | [facility] | | [address] | | | - LABORATORY | | | | + + + + + Magnesium (03/16/2016 1:06 PM PDT) + +-------+ + + + | Component | Value | Ref Range | Performed | Pathologist | | | | | At | Signature | + +-------+ + + + | Magnesium | 2.5 | 1.8 - 2.5 mg/dL | [facility] [...] | + + + + + | [place] [facility] 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
--- OUTSIDE RECORDS SUMMARY | ~2020-06-28 | XMS | Encounter Summary ---
Demographics + + + | Address | [address] | | | [place] [address] | + + + | Home Phone | | + + + | Preferred Language | Unknown | + + + | Marital Status | | + + + | Mu-Ism Affiliation | 1061 | + + + | Race | White | + + + | Ethnic Group | Not or | + + + Author + + + | Author | [facility] | | | and [place] | + + + | Organization | [facility] | | | [...] Team Providers + +------+ + | Care Electronics Scale Tester Name | Role | Phone | [...] | +--------+ + + + + | 01/14/ | Implant | PMG SE [place] | Cruzito Bird, | Remote Device | | 2018 | Monitor | CARDIOLOGY [address] [place] | Interrogation | | | | [place], | [place], | (Primary Dx); | | | | [place] [address] | [place] [address] | Pacemaker Dual | | | | [phone] | [phone] | Chamber, MRI | | | | [...] encounter Procedure Notes Cruzito Bird MD - 01/14/2018 11:59 PM PDTAssociated Order(s): DEVICE INTERROGATION- R EMOTEProcedure(s): DEVICE INTERROGATION- REMOTEPre-Procedure Diagnose(s): Pacemaker reprogra mming/check; Pacemaker; Tachycardia-bradycardia syndrome (HCC)Refer to [facility] documentation and remote PDF scanned into [employer] for remote interrogation results. Data collected by Nancy Dougherty RN Presenting rhythm: sinus rhythm atrial paced ventricular sensed between 65-68 beats. 0 mode switch episodes accounting for 0.0% of the time. No episodes. PVC singles 400 PVC singles 133/month PVC runs 0 PVC runs 0/month Histogram fair. Battery longevity 10.2 years. Apparent normal and stable device function. Device interrogation due in office 06/04/18. documented in this encounter Plan of Treatment [...] Dx); | | | | | [place] [address] | Pacemaker Dual | | | | | [phone] | Chamber, MRI | | | | [...] [place] | | | | | | [address] | | | | | | | | +--------+ + + + + documented as of this encounter Procedures + +--------+ + + + | Procedure Name | Priori | Date/Time | Associated Diagnosis | Comments | | | ty | | | | + +--------+ + + + | DEVICE | Routin | 05/02/2018 | Remote Device | Results for this [...] this encounter Results Device Interrogation - Remote (05/02/2018 12:00 AM PDT) + + + | Narrative | Performed At | + + + | Cruzito | [facility] | | MD Marge 05/02/2018 13:32Refer to [facility] documentation and | | | remote PDF scanned into [employer] for remote interrogation results. Data | | | collected by Nancy Dougherty RN Presenting rhythm: sinus rhythm atrial | | | paced ventricular sensed between 65-68 beats.0 mode switch episodes | | | accounting for 0.0% of the time.No episodes. PVC singles 400 | | | PVC singles 133/monthPVC runs 0 PVC runs | | | 0/monthHistogram fair. Battery longevity 10.2 years.Apparent | | | normal and stable device function.Device interrogation due in office | | | 06/04/18. | | |PVC runs 0 PVC runs 0/month | | |Histogram fair. Battery longevity 10.2 years. | | |Apparent normal and stable device function. | | |Device interrogation due in office 06/04/18. | | | | | + + + + + | Procedure Note | + + | Cruzito Bird MD - 01/14/2018 11:59 PM PDT Refer to [facility] documentation and | | remote PDF scanned into [employer] for remote interrogation results. Data collected by Nancy Rossi | | Mj Dougherty rhythm: sinus rhythm atrial paced ventricular sensed between 65-68 | | beats.0 mode switch episodes accounting for 0.0% of the time.No episodes. PVC singles | | 400 PVC singles 133/monthPVC runs 0 PVC runs 0/monthHistogram fair. | | Battery longevity 10.2 years.Apparent normal and stable device function.Device | | interrogation due in office 06/04/18. | |Histogram fair. Battery longevity 10.2 years. | |Apparent normal and stable device function. | |Device interrogation due in office 06/04/18. | | | + + + +---------+ [...] Chamber, MRI compatible, 05/14/17 [facility] Cardiac pacemaker | | in situ | [...]
--- OUTSIDE RECORDS SUMMARY | ~2020-06-28 | XMS | Encounter Summary ---
Demographics + + + | Address | [address] | | | [place] [address] | + + + | Home Phone | | + + + | Preferred Language | Unknown | + + + | Marital Status | | + + + | Advent Affiliation | 1061 | + + + | Race | White | + + + | Ethnic Group | Not or | + + + Author + + + | Author | [facility] | | | and [place] | + + + | Organization | [facility] | | [...] Team Providers + +------+ + | Care Garage Door Service Technician Name | Role | Phone | [...] Monitor | CARDIOLOGY [address] | Interrogation | | | | [place], | [place], | (Primary Dx); | | | | [place] [address] | [place] [address] | Pacemaker Dual | | | | [phone] | [phone] | Chamber, MRI | | | | [...] [facility] documentation and remote PDF scanned into [employer] for remote interrogation re sults. Data collected [...] Interrogation | | | | | [address] [place], | (Primary Dx); | | | | | [place] [address] | Pacemaker Dual | | | | | [phone] | Chamber, MRI | | | | | | compatible, 05/14/17 | | | | | | [facility]; | | | | | | 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) | +--------+ + + + + | 01/05/ | Office | Cardiology | Emely Gabriel, | | | 2020 | Visit | | [employer] [address] | | | | | | [place] | | | | | | [address] | | | | | | | [...] remote PDF scanned into | | | [facility] for remote interrogation results. Data [...] of Remote Interrogation: | | 01/27/2019Refer to [facility] documentation and remote PDF scanned into [employer] for remote | | interrogation results. Data collected by Yareli Molina RNPresenting rhythm: Sinus | | rhythm, atrial paced [...]
--- OUTSIDE RECORDS SUMMARY | ~2020-06-28 | XMS | Encounter Summary ---
Demographics + + + | Address | [address] | | | [place] [address] | + + + | Home Phone | | + + + | Preferred Language | Unknown | + + + | Marital Status | | + + + | Latter-Day Affiliation | 1061 | + + + | Race | White | + + + | Ethnic Group | Not or | + + + Author + + + | Author | [facility] | | | and [place] | + + + | Organization | [facility] | | | and [...] Team Providers + +------+ + | Care Profiler Operator Name | Role | Phone | [...] + | 04/20/ | Emergency | [facility] | [place], | Acute exacerbation | | 2016 | | [facility] | [address] | of CHF (congestive | | | | CENTER [address] | [facility] | heart failure) ([facility]) | | | | [place] | [place] [address] | (Primary Dx) | | | | [address] | [phone] | | | | | [phone] | | | +--------+ + + + [...] through Care Everywhere.CONGESTIVE HEAR T FAILURE, LEFT-SIDED (VIET[place]ESE)documented in this encounter Medications at Time of [...] might be different f rom the original. [facility] Emergency Department Encounter Note [address] [place] [address] PCP:Emelina Robertson MD [phone] CHIEF COMPLAINT Chief [...] INR goal is 2-3, surgery done at [facility] Hypertension Liver cirrhosis (HCC) CVA (cerebral infarction) -2014 lacunar (not stated as new nor old) Dementia Alcoholic cirrhosis (HCC) 2003 CT scan 2003 at [facility] Endocarditis 2009 Enterococcus 6 weeks Amp + Gent PSA elevation 2008 Pt declined Bx then Peripheral vertigo 2012 BPPV left Venous ulcer (HCC) 2013 Leg Retinal detachment 2010 CAD (coronary artery disease) 2005 Had CABG to LAD (for 80-90% LAD) surgery done at [facility] Pulmonary HTN (HCC) Severe on Echo 2013 [...] Acute exacerbation of CHF (congestive heart failure) ([facility]) PLAN Follow-up Information Schedule an appointment as soon as possible for a visit with Emelina Robertson MD. Specialty: Internal Medicine Contact information: [address] [place] [address] Discharge Medication List as of 04/20/2016 [...] Dx); | | | | | [place] [address] | Pacemaker Dual | | | | | [phone] | Chamber, MRI | | | | [...] [place] | | | | | | [address] | | | | | | | [...] + | [facility] | [address] | [place] | [phone] | | [facility] | | [address] | | | - LABORATORY | | [...] [address] | [place] | [phone] | | [facility] | | [address] | | | - LABORATORY | | [...] [address] | [place] | [phone] | | [facility] | | [address] | | | - LABORATORY | | [...] + | [facility] | [address] | [place] | [phone] | | [facility] | | [address] | | | - LABORATORY | | [...] eGFR, | 45 (L)Comment: | >=60 | [facility] | | | non- | GLOMERULAR FILTRATION | mL/min/1.73m2 | [facility] | | | Vietnamese | RATE,ESTIMATED | | MEDICAL | | | | mL/min/1.87e7Zhon than | | CENTER - | | [...] 1.5 | 0.1 - 1.5 mg/dL | [facility] | | | Total | | | [facility] | | | | | | MEDICAL | | | | | | CENTER - | | | | | | LABORATORY | | + + + + + + | Total | 6.3 | 6.0 - 7.8 g/dL | [facility] | | | Protein | | | [facility] | | [...] [address] | [place] | [phone] | | [facility] | | [address] | | | - LABORATORY | | [...] | | Lymphocytes | | K/uL | [facility] | [...] [address] | [place] | [phone] | | [facility] | | [address] | | | - LABORATORY | | [...]
--- OUTSIDE RECORDS SUMMARY | ~2020-06-28 | XMS | Encounter Summary ---
Demographics + + + | Address | [address] | | | [place] [address] | + + + | Home Phone [...] Team Providers + +------+ + | Care Family Support Coordinator Name | Role | Phone | + +------+ + | AshlynFerdinand | PCP | | | MD | | | + +------+ + Reason for Visit + + + | Reason | Comments | + + + | Coagulation Disorder | Directed to ED from [facility] with INR 13.0. Pt. bleeding from | | | multiple skin tears. | + + + Auth/Cert +--------+--------+ + + + + | Status | Reason | Specialty | Diagnoses / | Referred By | Referred To | | | | | Procedures | Contact | Contact | +--------+--------+ + + + + | Closed | | | Diagnoses | | [facility] | | | | | Epistaxis | | [address] | | | | | Essential | | [place], | | | | | hypertension | | [place] | | | | | Pulmonary | | [address] | | | | | HTN (HCC) | | Phone: | | | | | Chronic | | [phone] | | | | | diastolic | | Fax: | | | | | congestive | | [phone] | | | | | heart | | | | | | | failure | | | | | | | (HCC) | | | | | | | Excessive | | | | | | | anticoagulat | | | | | | | ion | | | | | | | 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 of | | | | | | | liver | | | | | | | without | | | | | | | ascites | | | | | | | (HCC) H/O | | | | | | | aortic valve | | | | | | | replacement | | | | | | | Dementia, | | | | | | | without | | | | | | | behavioral | | | | | | | disturbance | | | | | | | | | | | | | | Over-anticoa | | | | | | | gulated | | | | | | | Acute renal | | | | | | | failure, | | | | | | | unspecified | | | | | | | acute renal | | | | | | | failure type | | | | | | | (HCC) | | | | | | | Coronary | | | | | | | artery | | | | | | | disease with | | | | | | | unspecified | | | | | | | angina | | | | | | | pectoris | | | | | | | | | | | | | | | | | +--------+--------+ + + + + Encounter Details +--------+ + + + + | Date | Type | Department | Care Team | Description | +--------+ + + + + | 04/01/ | Hospital | [facility] | Jose, | Excessive | | 2015 - | Encounter | [facility] ICU [address] | Tristan Truong MD [address] | anticoagulation | | | | [address] [place], | [address] [place] | (Primary Dx); | | 04/04/ | | [place] [address] | [place] [address] | Epistaxis; H/O | | 2014 | | [phone] | [phone] | aortic valve | | | | | | replacement; | | | | | Jorge Phelps MD | Essential | | | | | [address] | hypertension; | | | | | [place] | Dementia, without | | | | | [id number] | behavioral | | | | | | disturbance; | | | | | | Alcoholic cirrhosis | | | | | | of liver without | | | | | | ascites (HCC); | | | | | | Coronary artery | | | | | | disease with | | | | | | unspecified angina | | | | | | pectoris (HCC); | | | | | | Pulmonary HTN (HCC); | | | | | | Chronic diastolic | | | | | | congestive heart | | | | | | failure (HCC); Acute | | | | | | renal failure, | | | | | | unspecified acute | | | | | | renal failure type | | | | | | (HCC); | | | | | | Over-anticoagulated | +--------+ + + + + Social [...] + + + | Blood Pressure | 108/52 | 04/04/2015 7:00 AM | | | | | PDT | | + + + + + | Pulse | 51 | 04/04/2015 7:00 AM | | | | | PDT | | + + + + + | Temperature | 36.4 C (97.5 F) | 04/04/2015 7:00 AM | | | | | PDT | | + + + + + | Respiratory Rate | 18 | 04/04/2015 7:00 AM | | | | | PDT | | + + + + + | Oxygen Saturation | 97% | 04/04/2015 7:00 AM | | | | | PDT | | + + + + + | Inhaled Oxygen | - | - | | | Concentration | | | | + + + + + | Weight | 85.9 kg (189 lb 4.8 | 04/04/2015 4:28 AM | | | | oz) | PDT | | + + + + + | Height | 170.2 cm (5' 7") | 04/01/2015 2:30 PM | | | | | PDT | | + + + + + | Body Mass Index | 29.65 | 04/01/2015 2:30 PM | | | | | PDT [...] documented as of this encounter Discharge Summaries Jorge Phelps MD - 04/04/2015 8:47 AM PDTFormatting of this note might be different fro m the original. [place], [place] DISCHARGE SUMMARY Pt. Name/Age/: Jacklyn Siddiqi 79 y.o. 1935 Date of Admission: 04/01/2015 Date of Discharge: 04/04/2015 Admitting Physician: Jorge Phelps MD Primary Care Provider: Ferdinand Goldberg Discharging Physician: Jorge Phelps MD DISCHARGE DIAGNOSES: Active Hospital Problems Diagnosis Over-anticoagulated Acute renal failure (ARF) Anemia H/O aortic valve replacement Hypertension Dementia Liver cirrhosis CAD (coronary artery disease) Pulmonary HTN Diastolic CHF Resolved Hospital Problems Diagnosis No resolved problems to display. DISCHARGE MEDICATIONS: Discharge Medications Changed Medications Details warfarin 2 mg tablet Do not restart your Warfarin (Coumadin) yet, you need daily Protimes at [facility] in [facility] starting Saturday and be sure the [place] [facility] calls you every day with th e results and the Warfarin clnic person will determine when you are to restart Warfarin and at what dose What changed: - how much to take - how to take this - additional instructions aka: COUMADIN Unchanged Medications [...] Caps Take 1 tablet by mouth Daily. docusate sodium 250 MG capsule Take 250 mg by mouth Twice daily as needed for Constipation. aka: COLACE donepezil 10 MG tablet Take [...] 2 times daily. aka: CARMOL Discontinued Medications lisinopril 5 mg tablet aka: PRINIVIL, ZESTRIL metoprolol succinate 25 mg 24 hr tablet aka: TOPROL-XL HOSPITAL COURSE: Please refer to the H&P for full details and the most recent rounding rounding (progress) n ote. Active Hospital Problems Diagnosis Over-anticoagulated In ER VIt 5 and FFP X 2 Did PAR on blood see H&P and discussed bleeding risk and risk of valve thrombosis etc. 13th INR a little higher than yesterday afternoon, not ready to restart coumadin 14 INR still high but not need intervention, probably will drift down. 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 accepta le H/O aortic valve replacement and single vessel CAD at [facility] October [address] [facility]R at [facility] and had CABG to 80-90% LAD October 2004 Hx of endocarditis Echo done CAD (coronary artery disease) CABG to LAD at time of AVR (for critical ) [facility] Oct 2014, cath then single vessel disea se Tachy-Hang (sinus hang and PSVT) th stopped metoprolol due to bradycardia (dud have 12.5 mg XL) but then had asymptomatic PSVT to 130 while asleep 14th consult by Dr Aguilera not quite meet criteria for pacemaker but will probably in future 15 overall improved and remains off beta birdie 15 Dr Justice called me due to the difference in ST seg and T wave with the 2 EKGs done t he same morning and I believe the lead placement was different between the two and did not h ave ischemia. 14th I spoke with daughter Cassandra (RN, Epic expert) she says in past dad would have complaint s of dizziness and slow HR (lowest she saw was high 40s but asymptomatic then) and [facility]. 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 Mild biatrial dilatation. 2. Normal left ventricular size, wall thickness and motion. Preserved left ventricular systolic function. LVEF is 65-70%. 3. Grade 1 left ventricular diastolic dysfunction. 4. Normally functioning mechanical bileaflet aortic valve replacement. 4. Mildly thickened and calcified mitral valve with a mild mitral valve regurgitation. 5. Mild mitral annular calcification. 6. Mild tricuspid valve regurgitation. 7. Moderate pulmonary hypertension with a peak systolic pressure of 55-60 mmHg. 8. Normal IVC with normal respiratory collapse. 9. No previous echocardiography for comparison. Renal U/S on IMPRESSION - 1. ELEVATED RENAL RESISTIVE INDICES SUGGESTING MEDICAL RENAL DISEASE. NO HYDRONEPHROSIS. 2. 79 CC POST VOID BLADDER RESIDUAL. Plan Home today [facility] to talk to [facility] about [facility] NOT restart ACEI nor Beta Birdie NOT YET restart Coumadin Needs home medicine management Needs frequent INR outpatient regarding coumadin Addendum on I had nice phone call with Dr Goldberg about patient including the tachy b rady, coumadin still on hold with high INR, dementia, patient driving at excessive speed, [facility] for home med management, needing daily INR starting tomorrow and [facility] needs to contact him to ensure compliance, being borderline for needing pacemaker , having acute renal insuff when coming in [place] home off beta birdie and off ACEI and NOT to restart Coumadin until [place] [facility] says OK and to follow daily INR [facility] [place] I see he is on Fenofibrate which can effect his INR, possibly the [facility] would consider alterna tive agent since fenofibrate has no cardiovascular benefit. From Addendum at 1255 have EKG from [facility] from [address] seg changes are OLD. Since this is NOT a [facility] EKG I did put it into the Media Tab to allow comparison. I will contact Dr Aguilera about the bradycardia but I suspect the issue will be NOT using the Beta Birdie. Patient d id tell me that typically at home his pulse rate would be 52-53. Most recent weight: Input and output for last 24hrs: Wt Readings from Last 1 Encounters: 04/04/15 85.866 kg (189 lb 4.8 oz) I/O last 24 Hours: In: 990 [P.O.:990] Out: 1825 [Urine:1825] Vitals Ranges: Temp: [35.8 C (96.4 F)-36.6 C (97.9 F)] 36.4 C (97.5 F) Pulse: [51-68] 51 Resp: [17-21] 18 BP: (105-131)/(48-56) 108/52 mmHg Vitals: Temp: 36.4 C (97.5 F) BP: 108/52 mmHg Pulse: 51 Resp: 18 SpO2: 97 % SpO2 97 % on room air at flow rate L/min PHYSICAL EXAM: Patient seen and examined by me on discharge day PROCEDURES AND CONSULTS: Dr Jorge Aguilera Echo Renal U/S FFP PENDING RESULTS: DISPOSITION AND DISCHARGE INSTRUCTIONS: Condition: Patient being discharged with condition improved Eat Healthy Diet [facility] [place] (Dr Goldberg will authorize) starting tomorrow (Saturday) and the [place] [facility] should call you each day with results and will tell you if and when to restart warfarin Lisinopril and metoprolol have been stopped We are arranging Home Health too Greater than 30 minutes were spent on discharge and coordination of post-hospital care. Electronically signed by: Jorge Phelps MD, 04/04/2015 8:47 [facility] Portions of this chart may have been created with [employer] voice recognition software. Occasi onal wrong-word or sound-alike substitutions may have occurred due to the inherent carter itations of voice recognition software. Please read the chart carefully and recognize, using context, where these substitutions have occurred documented in this encounter Discharge Instructions Instructions Jorge Phelps MD - 04/04/2015Eat Healthy Diet [facility] [place] (Dr Goldberg will authorize) starting tomorrow (Saturday) and the [place] [facility] should call you each day with results and will tell you if and when to restart warfarin Lisinopril and metoprolol have been stopped We are arranging Home Health too documented in this encounter Medications at Time [...] | | | | | | | [place] starting | | | | | | | Saturday and | | | | | | | be sure the [place] | | | | | | | [...] documented as of this encounter Progress Notes Sanam Pace RN - 04/04/2015 11:16 AM PDTPatient given discharge instructions with verb alized understanding. Patient assisted to car via W/C in medically stable condition. All q uestions answered. Jorge Ramirez MD - 04/04/2015 7:20 AM PDT [place], [place] PROGRESS NOTE Patient: Jacklyn Siddiqi : 1935: Age: 79 y.o. MedRec: [id number] PCP: Ferdinand Goldberg Admission date: 04/01/2015 Hospital day # : 3 Physician author: Jorge Phelps MD Today: 04/04/2015 Allergies: Allergies Allergen Reactions Latex Rash Current Medications: Current Facility-Administered Medications Medication Dose Route Frequency Provider Last Rate Last Dose atorvaSTATin (LIPITOR) tablet 10 mg 10 mg Oral Nightly Jorge Phelps MD 10 mg at 0 04/03/152001 cyanocobalamin (VITAMIN B-12) tablet 1,000 mcg 1,000 mcg Oral Daily Jorge Phelps MD 1,000 mcg at 04/03/15 0925 furosemide (LASIX) tablet 40 mg 40 mg Oral Daily Jorge Phelps MD 40 mg at 5 0925 HYDROcodone-acetaminophen (NORCO) 5-325 mg per tablet 1 tablet 1 tablet Oral Q4H PRN D suhas Chaudhry, DO 1 tablet at 04/04/15 0436 levothyroxine (SYNTHROID, LEVOTHROID) tablet 25 mcg 25 mcg Oral QAM AC Jorge Phelps MD 25 mcg at 04/04/15 0658 sodium chloride 0.9% (NS) infusion Intravenous Continuous Jorge Phelps MD traZODone (DESYREL) tablet 50 mg 50 mg Oral Nightly Jorge Phelps MD 50 mg at 03/21 Current Infusions: sodium chloride 0.9% Stopped (04/02/15 2241) Objective Data Labs Recent Labs Lab 04/04/15 0411 04/03/15 0406 04/02/15 0401 04/01/15 1059 WBC 4.5 4.4 5.7 7.4 HGB 9.2* 9.5* 9.5* 11.3* HCT 28.0* 29.7* 28.6* 34.9* PLT 151 145 153 Adequate | 204 NEUPCT -- -- -- 48.4 MONPCT -- -- -- 12.6* Recent Labs Lab 04/04/15 04104/03/15 0406 04/02/15 1556 PROTIME 38.3* 38.3* 35.7* INR 3.87* 3.87* 3.54* No results for input(s): PTT in the last 168 hours. Recent Labs Lab 04/04/15 0411 04/03/15 0406 04/02/15 1556 04/02/15 0401 GLU 111* 102 113* 107 NA 134* 137 139 142 K 5.0 5.0 5.2* 5.0 CL 104 108 107 111* CO2 26 26 28 27 ANIONGAP 4 3 4 4 BUN 40* 44* 45* 52* CREA 1.34* 1.83* 2.01* 1.80* GFRNONAA 51* 36* 32* 36* CALCIUM 8.5 8.7 8.6 8.6 ALBUMIN 3.1* 3.1* -- 3.2 No results for input(s): BNP in the last 168 hours. Recent Labs Lab 04/02/15 0401 MG 2.7* Recent Labs Lab 04/04/15 0411 04/03/15 0406 04/02/15 0401 PHOS 3.2 3.4 3.7 No results for input(s): AMYLASE, LIPASE in the last 168 hours. No results for input(s): AMMONIA in the last 168 hours. Recent Labs Lab 04/02/15 0401 04/01/15 1059 TROPONINI 0.04 -- CK -- 147 No results for input(s): PHART, PO2ART, OLQ5EXB, XZH1YKF, BEART, B4TFUOES in the last 168 h ours. No results for input(s): SPECSOURCE, PHPOCB, HCO3, TCO2, BEART, BE, NNMZ7SLN in the last 16 8 hours. Invalid input(s): CQFDA8KC, BEJS1RU Point of care glucose: No results for input(s): POCGLU in the last 168 hours. Serial weights: Filed Weights: 04/01/15 0945 04/01/15 1430 04/02/15 0338 04/03/15 0500 Weight: 83.462 kg (184 lb) 82.5 kg (181 lb 14.1 oz) 65.1 kg (143 lb 8.3 oz) 85 kg (187 lb 6 .3 oz) 04/04/15 0428 Weight: 85.866 kg (189 lb 4.8 oz) Most recent weight: Input and output for last 24hrs: Wt Readings from Last 1 Encounters: 04/04/15 85.866 kg (189 lb 4.8 oz) I/O last 24 Hours: In: 990 [P.O.:990] Out: 1825 [Urine:1825] I/O last 3 completed shifts: In: 1601.7 [P.O.:1090; I.V.:511.7] Out: 2425 [Urine:2425] Vitals Ranges: Temp: [35.8 C (96.4 F)-36.6 C (97.9 F)] 36.2 C (97.2 F) Pulse: [53-68] 59 Resp: [17-21] 21 BP: (105-131)/(48-56) 126/50 mmHg Vitals: Temp: 36.2 C (97.2 F) BP: 126/50 mmHg Pulse: 59 Resp: 21 SpO2: 96 % SpO2 96 % on room air at flow rate L/min Subjective CC admitted with over anticoag No CP nor abd pain and says not SOB and oedema not worse ROS See above Exam General alert, NAD mood and affect normal speech fluent Cardiac reg with murmur and overall tele improved with much less hang and no sig tachy Extremities mild oedema ankle, probably 1+ Lung BBIR not wheezing and not crackle effort not labored Abdominal Assessment and Hospital Course (meyprob vs meyprobap) Active Hospital Problems Diagnosis Over-anticoagulated In ER VIt 5 and FFP X 2 Did PAR on blood see H&P and discussed bleeding risk and risk of valve thrombosis etc. 13th INR a little higher than yesterday afternoon, not ready to restart coumadin 14th INR still high but not need intervention, probably will drift down. 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 15th still high with 50 50 mix pending but probably lingering effect from his coumadin, the mix study came back normal thus NO inhibitor Acute renal failure (ARF) He says drinking OK and PVR zero Check U/S see result, no hydro, looks like medicorenal 13th improved, watch his K+ though as trending up 14th improved, did get 0.05 florinef yesterday and Lasix restarted yesterday stable K and better GFR, will probably increase lasix to his usual bid but NOT restart ACEI Anemia Came into [facility] with INR above 10 with epistaxis and skin bleeding WEB PRODUCTION ASSISTANT accepta le H/O aortic valve replacement and single vessel CAD at [facility] [address] [facility] at [facility] and had CABG to 80-90% LAD October 2004 Hx of endocarditis Echo done CAD (coronary artery disease) CABG to LAD at time of AVR (for critical ) [facility] Oct 2014, cath then single vessel disea se Tachy-Hang (sinus hang and PSVT) stopped metoprolol due to bradycardia (dud have 12.5 mg XL) but then had asymptomatic PSVT to 130 while asleep consult by Dr Aguilera not quite meet criteria for pacemaker but will probably in future overall improved and remains off beta birdie Dr Justice called me due to the difference in ST seg and T wave with the 2 EKGs done t he same morning and I believe the lead placement was different between the two and did not h ave ischemia. I spoke with daughter Cassandra (RN, Epic expert) she says in past dad would have complaint s of dizziness and slow HR (lowest she saw was high 40s but asymptomatic then) and she told [facility]. 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 Mild biatrial dilatation. 2. Normal left ventricular size, wall thickness and motion. Preserved left ventricular systolic function. LVEF is 65-70%. 3. Grade 1 left ventricular diastolic dysfunction. 4. Normally functioning mechanical bileaflet aortic valve replacement. 4. Mildly thickened and calcified mitral valve with a mild mitral valve regurgitation. 5. Mild mitral annular calcification. 6. Mild tricuspid valve regurgitation. 7. Moderate pulmonary hypertension with a peak systolic pressure of 55-60 mmHg. 8. Normal IVC with normal respiratory collapse. 9. No previous echocardiography for comparison. Renal U/S on IMPRESSION - 1. ELEVATED RENAL RESISTIVE INDICES SUGGESTING MEDICAL RENAL DISEASE. NO HYDRONEPHROSIS. 2. 79 CC POST VOID BLADDER RESIDUAL. Plan Home today [facility] to talk to [facility] about [facility] NOT restart ACEI nor Beta Birdie NOT YET restart Coumadin Needs home medicine management Needs frequent INR outpatient regarding coumadin Addendum on I had nice phone call with Dr Goldberg about patient including the tachy b rady, coumadin still on hold with high INR, dementia, patient driving at excessive speed, [facility], needing daily INR starting tomorrow and [facility] needs to contact him to ensure compliance, being borderline for needing pacemaker , having acute renal insuff when coming in [place] home off beta birdie and off ACEI and NOT to restart Coumadin until [facility] and to follow daily INR [facility] [place] I see he is on Fenofibrate which can effect his INR, possibly the [facility] would consider alterna tive agent since fenofibrate has no cardiovascular benefit. From Addendum at 1255 have EKG from [facility] from [address] seg changes are OLD. Since this is NOT a [facility] EKG I did put it into the Media Tab to allow comparison. I will contact Dr Aguilera about the bradycardia but I suspect the issue will be NOT using the Beta Birdie. Patient d id tell me that typically at home his pulse rate would be 52-53. Jorge Phelps MD 04/04/2015 7:20 [facility] Portions of this chart may have been created with [employer] voice recognition software. Occasi onal wrong-word or sound-alike substitutions may have occurred due to the inherent carter itations of voice recognition software. Please read the chart carefully and recognize, using context, where these substitutions have occurred Susu Benton RN - 04/03/2015 9:35 AM PDTAssumed care of patient. Patient sitting up in chair resting comforta audra, medicated for back pain. 2+ b/l lower extremity edema - scattered bruising to b/l upper and lower extremities. Patient SB with bbb - lungs clear to ascultation. Urinating without difficulty. Color Repairer and hospitalist seen patient today. Susu Quiles Chris, Jorge Alejo MD - 04/03/2015 9:25 AM PDT [place], [place] PROGRESS NOTE Patient: Jacklyn Siddiqi : 1935: Age: 79 y.o. MedRec: [id number] PCP: Ferdinand Goldberg Admission date: 04/01/2015 Hospital day # : 2 Physician author: Jorge Phelps MD Today: 04/03/2015 Allergies: Allergies Allergen Reactions Latex Rash Current Medications: Current Facility-Administered Medications Medication Dose Route Frequency Provider Last Rate Last Dose atorvaSTATin (LIPITOR) tablet 10 mg 10 mg Oral Nightly Jorge Phelps MD 10 mg at 0 04/02/152050 cyanocobalamin (VITAMIN B-12) tablet 1,000 mcg 1,000 mcg Oral Daily Jorge Phelps MD 1,000 mcg at 04/03/15 0925 furosemide (LASIX) tablet 40 mg 40 mg Oral Daily Jorge Phelps MD 40 mg at 5 0925 HYDROcodone-acetaminophen (NORCO) 5-325 mg per tablet 1 tablet 1 tablet Oral Q4H PRN D suhas Chaudhry, DO 1 tablet at 04/03/15 0925 levothyroxine (SYNTHROID, LEVOTHROID) tablet 25 mcg 25 mcg Oral QAM AC Jorge Phelps MD 25 mcg at 04/03/15 0924 sodium chloride 0.9% (NS) infusion Intravenous Continuous Jorge Phelps MD traZODone (DESYREL) tablet 50 mg 50 mg Oral Nightly Jorge Phelps MD 50 mg at 03/21 Current Infusions: sodium chloride 0.9% Stopped (04/02/152240) Objective Data Labs Recent Labs Lab 04/03/15 0406 04/02/15 0401 04/01/15 1059 WBC 4.4 5.7 7.4 HGB 9.5* 9.5* 11.3* HCT 29.7* 28.6* 34.9* PLT 145 153 Adequate | 204 NEUPCT -- -- 48.4 MONPCT -- -- 12.6* Recent Labs Lab 04/03/15 0406 04/02/15 1556 04/02/15 0401 PROTIME 38.3* 35.7* 37.7* INR 3.87* 3.54* 3.79* No results for input(s): PTT in the last 168 hours. Recent Labs Lab 04/03/15 0406 04/02/15 1556 04/02/15 0401 GLU 102 113* 107 NA 137 139 142 K 5.0 5.2* 5.0 CL 108 107 111* CO2 26 28 27 ANIONGAP 3 4 4 BUN 44* 45* 52* CREA 1.83* 2.01* 1.80* GFRNONAA 36* 32* 36* CALCIUM 8.7 8.6 8.6 ALBUMIN 3.1* -- 3.2 No results for input(s): BNP in the last 168 hours. Recent Labs Lab 04/02/15 0401 MG 2.7* Recent Labs Lab 04/03/15 0406 04/02/15 0401 PHOS 3.4 3.7 No results for input(s): AMYLASE, LIPASE in the last 168 hours. No results for input(s): AMMONIA in the last 168 hours. Recent Labs Lab 04/02/15 0401 04/01/15 1059 TROPONINI 0.04 -- CK -- 147 No results for input(s): PHART, PO2ART, BZX4CVZ, ITY6OTA, BEART, G2HIUYNC in the last 168 h ours. No results for input(s): SPECSOURCE, PHPOCB, HCO3, TCO2, BEART, BE, FZXP2PSF in the last 16 8 hours. Invalid input(s): REWKI2CT, HMWB3KD Point of care glucose: No results for input(s): POCGLU in the last 168 hours. Serial weights: Filed Weights: 04/01/15 0945 04/01/15 1430 04/02/15 0338 04/03/15 0500 Weight: 83.462 kg (184 lb) 82.5 kg (181 lb 14.1 oz) 65.1 kg (143 lb 8.3 oz) 85 kg (187 lb 6 .3 oz) Most recent weight: Input and output for last 24hrs: Wt Readings from Last 1 Encounters: 04/03/15 85 kg (187 lb 6.3 oz) I/O last 24 Hours: In: 1654.7 [P.O.:400; I.V.:1254.7] Out: 1200 [Urine:1200] I/O last 3 completed shifts: In: 3217.7 [P.O.:400; I.V.:2817.7] Out: 1880 [Urine:1880] Vitals Ranges: Temp: [35.6 C (96.1 F)-36.9 C (98.4 F)] 36.3 C (97.3 F) Pulse: [44-70] 56 Resp: [17-19] 18 BP: (94-129)/(41-61) 129/56 mmHg Vitals: Temp: 36.3 C (97.3 F) BP: 129/56 mmHg Pulse: 56 Resp: 18 SpO2: 98 % SpO2 98 % on room air at flow rate L/min Subjective CC admitted with over anticoag Not bleeding No CP nor dizzy nor GI upset nor SOB He blames eating too much candy for high coumadin, I discussed that could be the case if he had cut back on healthy food ROS See above Exam General alert, NAD demented but smiling and talking mood and affect normal speech fluent Cardiac has tachy hang but overall the hang is better but had some PSVT (not VT) to 130 l ast night Extremities mild oedema ankle Lung BBIR not wheezing effort not labored Abdominal Assessment and Hospital Course (meyprob vs meyprobap) Active Hospital Problems Diagnosis Over-anticoagulated In ER VIt 5 and FFP X 2 Did PAR on blood see H&P and discussed bleeding risk and risk of valve thrombosis etc. 13th INR a little higher than yesterday afternoon, not ready to restart coumadin 14th INR still high but not need intervention, probably will drift down. 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 Acute renal failure (ARF) He says drinking OK and PVR zero Check U/S see result, no hydro, looks like medicorenal 13th improved, watch his K+ though as trending up 14th improved, did get 0.05 florinef yesterday and Lasix restarted yesterday Anemia Came into [facility] with INR above 10 with epistaxis and skin bleeding WEB PRODUCTION ASSISTANT H/O aortic valve replacement and single vessel CAD at [facility] October [address] [facility]R at [facility] and had CABG to 80-90% LAD October 2004 Hx of endocarditis Echo done CAD (coronary artery disease) CABG to LAD at time of AVR (for critical ) [facility] Oct 2014, cath then single vessel disea se Tachy-Hang (sinus hang and PSVT) stopped metoprolol due to bradycardia (dud have 12.5 mg XL) but then had asymptomatic PSVT to 130 while asleep consult by Dr Aguilera not quite meet criteria for pacemaker but will probably in future I spoke with daughter Cassandra (RN, Epic expert) she says in past dad would have complaint s of dizziness and slow HR (lowest she saw was high 40s but asymptomatic then) and [facility] We discussed his anticoag and med management and memory and renal and tachy hang Hypertension I did lower his metoprolol due to hang on on Lisinopril remains off but need to resta rt Lasix gently albeit at lower dose then WEB PRODUCTION ASSISTANT Dementia Son says Aricept no benefit Liver cirrhosis Ex ETOH use, prior CT at [facility] Pulmonary HTN Diastolic CHF Normal Cortrosyn Stim test on April 03 (done as am cortisol was less than 10) DVT Prophylaxis Coumadin with INR goal 2-3 Code Status Full Code Medical Decision Maker Estela Trujillo Echo on IMPRESSIONS: 1. Mild biatrial dilatation. 2. Normal left ventricular size, wall thickness and motion. Preserved left ventricular systolic function. LVEF is 65-70%. 3. Grade 1 left ventricular diastolic dysfunction. 4. Normally functioning mechanical bileaflet aortic valve replacement. 4. Mildly thickened and calcified mitral valve with a mild mitral valve regurgitation. 5. Mild mitral annular calcification. 6. Mild tricuspid valve regurgitation. 7. Moderate pulmonary hypertension with a peak systolic pressure of 55-60 mmHg. 8. Normal IVC with normal respiratory collapse. 9. No previous echocardiography for comparison. Renal U/S on IMPRESSION - 1. ELEVATED RENAL RESISTIVE INDICES SUGGESTING MEDICAL RENAL DISEASE. NO HYDRONEPHROSIS. 2. 79 CC POST VOID BLADDER RESIDUAL. Plan IVF stopped Watch for tachy hang now that completely off metoprolol Follow labs Possibly home Saturday but needs more supervision by [facility] and weekly RN From Addendum at 1255 have EKG from [facility] from [address] seg changes are OLD. Since this is NOT a [facility] EKG I did put it into the Media Tab to allow comparison. I will contact Dr Aguilera about the bradycardia but I suspect the issue will be NOT using the Beta Birdie. Patient d id tell me that typically at home his pulse rate would be 52-53. Jorge Phelps MD 04/03/2015 9:25 [facility] Portions of this chart may have been created with Upstart voice recognition software. Occasi onal wrong-word or sound-alike substitutions may have occurred due to the inherent carter itations of voice recognition software. Please read the chart carefully and recognize, using context, where these substitutions have occurred Sanam Mello RN - 04/02/2015 7:23 PM PDTReport to Ayah ESTRELLA. Opportunity for questions provided.Electronica lly signed by Sanam Pace RN at 04/02/2015 7:23 PM Sanam Mello RN - 04/02/2015 11:54 AM PDTDr. Phelps aware of pauses, low HR, PAC's and possible ECG changes. New orders o btained. Jorge Perez MD - 04/02/2015 8:43 AM PDT [facility] MD PROGRESS NOTE Patient: Jacklyn Siddiqi : 1935: Age: 79 y.o. MedRec: [id number] PCP: Ferdinand Goldberg Admission date: 04/01/2015 Hospital day # : 1 Physician author: Joreg Phelps MD Today: 04/02/2015 Allergies: Allergies Allergen Reactions Latex Rash Current Medications: Current Facility-Administered Medications Medication Dose Route Frequency Provider Last Rate Last Dose atorvaSTATin (LIPITOR) tablet 10 mg 10 mg Oral Nightly Jorge Phelps MD 10 mg at 0 04/01/152045 cyanocobalamin (VITAMIN B-12) tablet 1,000 mcg 1,000 mcg Oral Daily Jorge Phelps MD 1,000 mcg at 04/02/15 0824 HYDROcodone-acetaminophen (NORCO) 5-325 mg per tablet 1 tablet 1 tablet Oral Q4H PRN D suhas Chaudhry, 1 tablet at 04/02/15 0825 levothyroxine (SYNTHROID, LEVOTHROID) tablet 25 mcg 25 mcg Oral QAM AC Jorge Phelps MD 25 mcg at 04/02/15 0659 metoprolol succinate (TOPROL-XL) ER tablet 12.5 mg 12.5 mg Oral Daily Jorge Phelps MD 12.5 mg at 04/02/15 0824 sodium chloride 0.9% (NS) infusion Intravenous Continuous Jorge Phelps MD 100 mL/h r at 04/02/15 0807 100 mL at 04/02/15 0807 traZODone (DESYREL) tablet 50 mg 50 mg Oral Nightly Jorge Phelps MD 50 mg at 03/21 Current Infusions: sodium chloride 0.9% 100 mL (04/02/15 0807) Objective Data Labs Recent Labs Lab 04/02/15 0401 04/01/15 1059 WBC 5.7 7.4 HGB 9.5* 11.3* HCT 28.6* 34.9* PLT 153 Adequate | 204 NEUPCT -- 48.4 MONPCT -- 12.6* Recent Labs Lab 04/02/15 0401 04/01/15 1539 04/01/15 1059 PROTIME 37.7* 30.4* 101.8* INR 3.79* 2.88* >10.00* No results for input(s): PTT in the last 168 hours. Recent Labs Lab 04/02/15 0401 04/01/15 1059 GLU 107 102 NA 142 137 K 5.0 4.7 CL 111* 103 CO2 27 27 ANIONGAP 4 7 BUN 52* 66* CREA 1.80* 2.26* GFRNONAA 36* 28* CALCIUM 8.6 9.3 ALBUMIN 3.2 -- No results for input(s): BNP in the last 168 hours. No results for input(s): MG in the last 168 hours. Recent Labs Lab 04/02/15 0401 PHOS 3.7 No results for input(s): AMYLASE, LIPASE in the last 168 hours. No results for input(s): AMMONIA in the last 168 hours. Recent Labs Lab 04/01/15 1059 CK 147 No results for input(s): PHART, PO2ART, XZD1MLR, PBS8QRG, BEART, G7EODDQG in the last 168 h ours. No results for input(s): SPECSOURCE, PHPOCB, HCO3, TCO2, BEART, BE, [id number] in the last 16 8 hours. Invalid input(s): [id number], CUWY3FB Point of care glucose: No results for input(s): POCGLU in the last 168 hours. Serial weights: Filed Weights: 04/01/15 0945 04/01/15 1430 04/02/15 0338 Weight: 83.462 kg (184 lb) 82.5 kg (181 lb 14.1 oz) 65.1 kg (143 lb 8.3 oz) Most recent weight: Input and output for last 24hrs: Wt Readings from Last 1 Encounters: 04/02/15 65.1 kg (143 lb 8.3 oz) I/O last 24 Hours: In: 2711 [P.O.:240; I.V.:1904; Blood:567] Out: 980 [Urine:980] I/O last 3 completed shifts: In: 2711 [P.O.:240; I.V.:1904; Blood:567] Out: 980 [Urine:980] Vitals Ranges: Temp: [36 C (96.8 F)-37.7 C (99.9 F)] 37.7 C (99.9 F) Pulse: [54-73] 62 Resp: [13-20] 16 BP: (100-137)/(39-89) 109/53 mmHg Vitals: Temp: 37.7 C (99.9 F) BP: 109/53 mmHg Pulse: 62 Resp: 16 SpO2: 96 % SpO2 96 % on room air at flow rate L/min Subjective CC admitted with over anticoag Skin and nose stopped bleeding Not SOB No CP No GI upset Asks to go home ROS See above Exam General alert, NAD demented but smiling and talking mood and affect normal speech fluent Cardiac slight irreg (cannot exclude occ a fib on tele) Extremities no significant edema Lung clear to auscultation effort not labored Abdominal + bowel sounds, soft, nontender Assessment and Hospital Course (meyprob vs meyprobap) Active Hospital Problems Diagnosis Over-anticoagulated In ER VIt 5 and FFP X 2 Did PAR on blood see H&P and discussed bleeding risk and risk of valve thrombosis etc. INR a little higher than yesterday afternoon, not ready to restart coumadin Acute renal failure (ARF) He says drinking OK and PVR zero Check U/S see result, no hydro, looks like medicorenal improved, watch his K+ though as trending up Anemia Came into [facility] with INR above 10 with epistaxis and skin bleeding WEB PRODUCTION ASSISTANT H/O aortic valve replacement and single vessel CAD at [facility] October [address] [facility]R at [facility] and had CABG to 80-90% LAD October 2004 Hx of endocarditis Echo done CAD (coronary artery disease) CABG to LAD at time of AVR (for critical ) [facility] Oct 2014, cath then single vessel disea se Hypertension I did lower his metoprolol due to hang on on Lisinopril remains off but need to resta rt Lasix gently albeit at lower dose then WEB PRODUCTION ASSISTANT Dementia Son says Aricept no benefit Liver cirrhosis Ex ETOH use, prior CT at [facility] Pulmonary HTN Diastolic CHF DVT Prophylaxis Coumadin with INR goal 2-3 Code Status Full Code Medical Decision Maker Daughter Cassandra Echo on IMPRESSIONS: 1. Mild biatrial dilatation. 2. Normal left ventricular size, wall thickness and motion. Preserved left ventricular systolic function. LVEF is 65-70%. 3. Grade 1 left ventricular diastolic dysfunction. 4. Normally functioning mechanical bileaflet aortic valve replacement. 4. Mildly thickened and calcified mitral valve with a mild mitral valve regurgitation. 5. Mild mitral annular calcification. 6. Mild tricuspid valve regurgitation. 7. Moderate pulmonary hypertension with a peak systolic pressure of 55-60 mmHg. 8. Normal IVC with normal respiratory collapse. 9. No previous echocardiography for comparison. Renal U/S on IMPRESSION - 1. ELEVATED RENAL RESISTIVE INDICES SUGGESTING MEDICAL RENAL DISEASE. NO HYDRONEPHROSIS. 2. 79 CC POST VOID BLADDER RESIDUAL. Plan Lasix daily not bid Slow IVF to 50 Follow labs Metop cut in half for bradycardia Not retart ACEI INR and BMP at 4 pm call result Addendum at noon: have more hang despite half dose of metoprolol. Tele shows huge ST seg e levation that is NOT present on EKG X 2, does have sinus hang with PVC (some on tele maybe PAC) with pauses shy of 2 seconds. He has no chest pain and SBP is above 90. I contacted [place] for comparison EKG as here he has on saturday T wave inversion in 1 and AVL on his 1st EKG a nd additionally on V456 on 2nd EKG. He does also have a LBBB vs LAFB. He confirms no CP nor CP no N/V nor SOB nor dizzy. Might need cards consult. Have Mg and Troponin and T7 pending. Addendum at 1255 have EKG from [facility] from [address] seg changes are OLD. Since this is NOT a [facility] EKG I did put it into the Media Tab to allow comparison. I will contact Dr Aguilera about the bradycardia but I suspect the issue will be NOT using the Beta Birdie. Patient d id tell me that typically at home his pulse rate would be 52-53. Jorge Phelps MD 04/02/2015 8:43 [facility] Portions of this chart may have been created with [employer] voice recognition software. Occasi onal wrong-word or sound-alike substitutions may have occurred due to the inherent carter itations of voice recognition software. Please read the chart carefully and recognize, using context, where these substitutions have occurred Sanam Mello RN - 04/01/2015 7:23 PM PDTReport to Mary ESTRELLA.Electronically signed by Sanam Pace RN at 0 04/01/2015 7:23 PM Sanam Mello RN - 04/01/2015 2:20 PM [id number] Patient arrives fr ED with FFP infusing. Alert and oriented x 4. Able to ambulate from rney to ICU bed w ithout difficulty. No SOB noted. Assessment completed. See chart for detail. Admit compl eted. 1500- ECHO at bedside. Updated familly on plan of care. documented in this encounter H&P Notes Jorge Phelps MD - 04/01/2015 1:18 PM PDTFormatting of this note might be different fro m the original. [place], [place] HISTORY & PHYSICAL Patient: Jacklyn Siddiqi : 1935: Age: 79 y.o. MedRec: [id number] PCP: Ferdinand Goldberg Admission date: 04/01/2015 Hospital day #: 0 Physician author: Jorge Phelps MD Today: 04/01/2015 CHIEF COMPLAINT: Bleeding from nose and skin for a week HISTORY OF PRESENT ILLNESS: This is a 79 y.o. male with a history of CAD with stents and maybe CABG but has [facility] bleeding skin and nose for a week had high INR at [facility] in [place] yesterday but not reachable until today and told to go to ER so drove 90 [address] to get here (pulled over by code enforcement officer not ticket) into ER with high INR and got Vit K and FFP X 2 ordered I discussed risks of transfusing blood products including HIV, hepatitis, infection, fever, allergy, transfusion reaction, TACO (volume overload), TRALI and TRIM (transfusion related immuno-modulation). Also discussed benefits and alternatives. Patient consents to transfusio n. He says coughs up blood at night from nose bleed but not SOB NO CP He says stents for heart is insure if CABG says leon at [facility] Hearing aid in repair, dentures in clear bag, not use glasses "20/20", no CP nor abd pain, using bandaids and velcro on skin areas, Hx of venous ulcer, chronic LBP, cane, no GI bleedi ng Aricept 1/2 pill of NO benefit per son in room, patient not disagree PAST MEDICAL and SURGICAL HISTORY: Past Medical History Diagnosis Date H/O aortic valve replacement 2005 [facility] AV[facility] INR goal is 2-3 Hypertension Liver cirrhosis (HCC) CVA (cerebral infarction) (HCC) -2014 lacunar (not stated as new nor old) Dementia Alcoholic cirrhosis (HCC) 2003 CT scan 2003 at [facility] Endocarditis 2009 Enterococcus 6 weeks Amp + Gent PSA elevation 2008 Pt declined Bx then Peripheral vertigo 2012 BPPV left Venous ulcer (HCC) 2013 Leg Retinal detachment 2010 CAD [facility]coronary artery disease) [facility] Pulmonary HTN (HCC) Severe on Echo 2014 Diastolic CHF (HCC) Echo 2013 EF 68, [...] reports that he does not drink alcohol. Habit neg X 3 but used to drink ETOH. . 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 Lives alone. Retired 1994. REVIEW OF SYSTEMS: I did my usual 10 system ROS using: Constitutional, Eye, ENT, Cardiac, Respiratory, GI, , Musculoskeletal, Skin & Breast, Neurological. Also see notations in HPI. See above Remainder of 10 system ROS negative HOME [...] mcg by mouth every morning (before breakfast). LISINOPRIL (PRINIVIL, ZESTRIL) 5 MG TABLET Take 5 mg by mouth Daily. METOPROLOL SUCCINATE (TOPROL-XL) 25 MG 24 HR TABLET Take 25 mg by mouth Daily. TERBINAFINE (LAMISIL) 1% CREAM Apply topically 2 times daily. TRAZODONE (DESYREL) 50 MG TABLET Take 50 mg by mouth nightly. UREA (CARMOL) 20% CREAM Apply topically 2 times daily. WARFARIN (COUMADIN) 2 MG TABLET Take 2 mg by mouth. Uses 2 mg tablets, 8mg Sat, , T hurs; 6mg Sat, Sat, , Sat Patient says Coumadin 2 mg tab 4 tabs on Sun Sat and 3 tabs on other days except last two only took 3 tabs Sets up his own meds once a week and he could remember his coumadin dose Did NOT take any meds this morning He says out of cochicine and rarely uses the albuterol inhaler ALLERGIES: Allergies Allergen Reactions Latex Rash VITAL SIGNS: Temp: 36.9 C (98.4 F), Pulse: 62, Resp: 20, BP: 100/53 mmHg, SpO2 100 % on room air at flow rate L/min Temp Min: 36 C (96.8 F) Max: 36.9 C (98.4 F) Weight: 83.462 kg (184 lb) PHYSICAL EXAMINATION: Constitutional Alert NAD mood and affect loud (son says easy to anger) Eye Pupils ER nice blue color No conjunctivitis nor scleral icterus ENT Unremarkable oral ear and nose except teeth out in bag and some blood in nose but not activ e bleeding Neck No adenopathy, thyromegaly nor masses Lymph node exam Negative in the following areas: neck and epitrochlear Cardiac Rate and Rhythm RRR Murmur 1/6 mech sound LE edema mlid Lung Auscultation BBIR not crackle Respiratory effort not labored Percussion not performed Abdomen + BS, Soft, NT, mild suprapubic tender in suprpubic area Psych Mood and affect normal Oriented to name, date and place Neuro Alert and coop Has bandaids and coban on arms and legs to stop bleeding and shallow ulcer right lower leg too and many bruises on arms (dot meyexam) DIAGNOSTIC STUDIES: Recent Labs Lab 04/01/15 1059 WBC 7.4 HGB 11.3* HCT 34.9* PLT Adequate | 204 NEUPCT 48.4 MONPCT 12.6* Recent Labs Lab 04/01/15 1059 PROTIME 101.8* INR >10.00* No results for input(s): PTT in the last 168 hours. Recent Labs Lab 04/01/15 1059 GLU 102 NA 137 K 4.7 CL 103 CO2 27 ANIONGAP 7 BUN 66* CREA 2.26* GFRNONAA 28* CALCIUM 9.3 No results for input(s): BNP in the last 168 hours. No results for input(s): MG in the last 168 hours. No results for input(s): PHOS in the last 168 hours. No results for input(s): AMYLASE, LIPASE in the last 168 hours. No results for input(s): AMMONIA in the last 168 hours. No results for input(s): TROPONINI, CK, CKMB in the last 168 hours. Invalid input(s): CKTOTAL No results for input(s): PHART, PO2ART, ZNI8HLB, GKM4LBH, BEART, [id number] in the last 168 h ours. No results for input(s): SPECSOURCE, PHPOCB, HCO3, TCO2, BEART, BE, [id number] in the last 16 8 hours. Invalid input(s): BAISY7LZ, YUBM9IB (dot meylab) Xray Results: No results found. I reviewed and summarized old records ASSESSMENT: (meyprob vs meyprobap) Principal Problem: Over-anticoagulated Active Hospital Problems Diagnosis Over-anticoagulated In ER VIt 5 and FFP X 2 Did PAR on blood see H&P and discussed bleeding risk and risk of valve thrombosis etc. Acute renal failure (ARF) He says drinking OK and PVR zero Check U/S Anemia H/O aortic valve replacement Oct [address] [facility] [address] critical [facility] at [facility] Hx of endocarditis Hypertension Dementia Son says Aricept no benefit Liver cirrhosis Ex ETOH use, prior CT at [facility] CAD (coronary artery disease) Patient says had stents, [place] says CABG, and [facility] did cardiac cath with single vessel disea se to LAD 80-90% and [facility] says did CABG October 2004 Pulmonary HTN Diastolic CHF DVT Prophylaxis Coumadin with INR goal 2-3 Code Status Full Code Medical Decision Maker Daughter Cassandra PLAN: VIt and FFP started in ER Check INR post FFP Renal U/S and urine labs and hydrate Echo Might need more FFP Addendum Echo back and U/S pending and not volume overload on Echo (compared to prior repor t from [place] he is NOT worse per my comparison of reports) CMS Documentation I expect this patient will be hospitalized for greater than 2-midnights and expect the post -hospital plan to be discharge to home or to an adult foster home. Electronically signed by: Jorge Phelps MD 04/01/2015 13:56 [facility] Note updated on after getting [facility] Care Everywhere review done Portions of this chart may have been created with [employer] voice recognition software. Occasi onal wrong-word or sound-alike substitutions may have occurred due to the inherent carter itations of voice recognition software. Please read the chart carefully and recognize, using context, where these substitutions have occurred documented in this en counter Procedure Notes Eren Justice MD - 04/04/2015 7:10 AM PDTAssociated Order(s): ECG 12 LEAD Adult ECG Repo rt Name: Jacklyn Siddiqi Age: 79 y.o. Gender: male 04/02/15 at 11:40 Narrative Interpretation: Sinus bradycardia. Left bundle branch block. Compared to EKG d one 04/02/15 at 6:50 there are new T-wave inversions in leads V4-6: Consider ischemia/infarct ion or evolution of a recent ischemic event. ardnerEren MD - 0 04/04/2015 7:09 AM PDTAssociated Order(s): ECG 12 LEAD Adult ECG Report Name: Jacklyn Siddiqi Age: 79 y.o. Gender: male 04/02/15 at 6:50 Narrative Interpretation: Sinus bradycardia. Normal axis. Left bundle branch block. Can not exclude ischemia/infarction. documented in this enc ounter Consult Notes Jaren Aguilera MD - 04/03/2015 9:15 AM PDT PATIENT NAME: Jacklyn Siddiqi : 1935: AGE: 79 y.o. ADMISSION DATE: 04/01/2015 HOSPITAL DAY NUMBER: [id number] PRIMARY CARE: Ferdinand Goldberg MD REFERRING PROVIDER: Romario Phelps M.D. CONSULTING PROVIDER: Jaren Aguilera MD CARDIOLOGY CONSULTATION DATE OF CONSULTATION: 04/03/2015 REASON FOR CONSULT: Tachycardia and bradycardia HISTORY OF PRESENT ILLNESS: Jacklyn Siddiqi is a 79 y.o. male with a history of mechanical aortic valve replacement and sin gle-vessel bypass graft surgery in approximately 2005.. He was admitted to [facility] on 04/01/2015 for Over-anticoagulated. He was in his usual state of health until about a month ago. He altered his diet. Subsequ ently he began having bleeding from several locations, mostly his nose. A prothrombin time done as an outpatient revealed significant over anticoagulation. He was then admitted. He was found to have periods of bradycardia on telemetry. He denies lightheadedness, syncope, near syncope or weakness. He was taking metoprolol in the morning in the remote past. This made him sluggish during the day. When he started taking it at night he no longer lacked e nergy. He slept well. The reason for the metoprolol is not clear. It was started at the [facility]. However, he has had episodes of supraventricular tachycardia here. That is the presumed reason for treatment. He has no dyspnea with exertion or angina. He has had no p roblems with his prosthetic valve which is mechanical and requires warfarin. PAST MEDICAL HISTORY Past Medical History Diagnosis Date H/O aortic valve replacement 2004 [facility] AV[facility] INR goal is 2-3, surgery done at [facility] Hypertension Liver cirrhosis (HCC) CVA (cerebral infarction) ([facility]) -2014 lacunar (not stated as new nor old) Dementia Alcoholic cirrhosis (HCC) 2003 CT scan 2003 at [facility] Endocarditis 2009 Enterococcus 6 weeks Amp + Gent PSA elevation 2008 Pt declined Bx then Peripheral vertigo 2012 BPPV left Venous ulcer ([facility]) 2013 Leg Retinal detachment 2010 CAD (coronary artery disease) 2004 Had CABG to LAD (for 80-90% LAD) surgery done at [facility] Pulmonary HTN (HCC) Severe on Echo 2014 Diastolic CHF ([facility]) Echo 2014 EF 68, ascites, pulm HTN Over-anticoagulated 04/01/2015 PAST SURGICAL HISTORY Past Surgical History Procedure Laterality Date Cardiac surgery 2005 [place] [address] [facility]R FAMILY HISTORY Family History Problem Relation Age of Onset Heart disease Father SOCIAL HISTORY He lives independently in a house with his dog. He maintains the home. His veterans benef its stem from service from [id number], the [place] War era. He does not use tobacco. OUTPATIENT MEDICATIONS Prescriptions prior to admission Medication Sig Dispense Refill albuterol 90 mcg/puff inhaler Inhale 2 puffs into the lungs every 4 hours as needed for Wheezing. atorvaSTATin (LIPITOR) 10 mg tablet Take 10 mg by mouth nightly. colchicine 0.6 mg tablet Take 0.6 mg by mouth as needed. He uses a tapering regimen ove r 8 days prn gout but is out Cyanocobalamin 1000 MCG CAPS Take 1 tablet by mouth Daily. docusate sodium (COLACE) 250 MG capsule Take 250 mg by mouth Twice daily as needed for Constipation. donepezil (ARICEPT) 10 MG tablet Take 5 mg by mouth Daily. fenofibrate (TRICOR) 145 mg tablet Take 145 mg by mouth Daily. furosemide (LASIX) 40 mg tablet Take 40 mg by mouth 2 times daily. HYDROcodone-acetaminophen (NORCO) 5-325 mg per tablet Take 1 tablet by mouth every 6 ho urs as needed for Pain. levothyroxine (SYNTHROID, LEVOTHROID) 25 mcg tablet Take 25 mcg by mouth every morning (before breakfast). lisinopril (PRINIVIL, ZESTRIL) 5 mg tablet Take 5 mg by mouth Daily. metoprolol succinate (TOPROL-XL) 25 mg 24 hr tablet Take 25 mg by mouth Daily. terbinafine (LAMISIL) 1% cream Apply topically 2 times daily. traZODone (DESYREL) 50 mg tablet Take 50 mg by mouth nightly. urea (CARMOL) 20% cream Apply topically 2 times daily. warfarin (COUMADIN) 2 mg tablet Take 2 mg by mouth. Uses 2 mg tablets, 8mg Sun, Tues, T hurs; 6mg Mon, Wed, Frid, Sat ALLERGIES Allergies Allergen Reactions Latex Rash REVIEW OF SYSTEMS Per Dr. Phelps. PHYSICAL EXAM Latest VS: BP 129/56 | Pulse 56 | Temp(Src) 36.3 C (97.3 F) (Oral) | Resp 18 | Ht 1.70 2 m (5' 7") | Wt 85 kg (187 lb 6.3 oz) | BMI 29.34 kg/m2 | SpO2 98% Admit Weight: Weight: 83.462 kg (184 lb) Current weight: Weight: 85 kg (187 lb 6.3 oz) Vital sign ranges for last 24hrs: Input and output for last 24hrs: Temp: [35.6 C (96.1 F)-36.9 C (98.4 F)] 36.3 C (97.3 F) Pulse: [44-70] 56 Resp: [17-19] 18 BP: (94-129)/(41-61) 129/56 mmHg SpO2 Av.2 % Min: 95 % Max: 100 % 04/01 1901 - 04/03 0700 In: 3217.7 [P.O.:400; I.V.:2817.7] Out: 1880 [Urine:1880] Constitutional General appearance: Overweight and comfortable male in no acute distress Cardiovascular NYHA Class: I- No symptoms; no limitations of activities Palp/Percussion: PMI not well defined. No significant JVD Auscultation: normal S1 prosthetic second heart sound without murmurs rubs or gallops Carotid arteries: pulses 2+, symmetric, no bruits Abdominal aorta: no enlargement or bruit. Pedal pulses: pulses 2+, symmetric Peripheral circulation: no cyanosis, clubbing, edema, or varicosities Gastrointestinal Abdomen: soft, non-tender Liver and spleen: no enlargement Mental Status/Neurological Orientation: oriented to time, place, and person Affect/Mood: no depression, anxiety, or agitation Respiratory Respiratory effort: no intercostal retractions or use of accessory muscles Auscultation: no rales, rhonchi, or wheezes Eyes Conjunctiva & lids: conjunctiva and lids normal Ears, Nose and Throat Lips: no pallor or cyanosis ECG: Twelve-lead ECG shows sinus rhythm with a nonspecific intraventricular conduction del ay. A limited tree strips reveal episodes of sinus bradycardia with rates into the mid 30s area there are no sustained rates less than about 38. All of the bradycardia occurs at nigh t while the patient is asleep. All the bradycardia is asymptomatic. He has occasional PACs . His longest pause is just shy of 2 seconds. ASSESSMENT: Asymptomatic bradycardia. I don't see a definite indication for permanent pacing at this t amanda. In the future, however, it is likely permanent pacing will be required. Coronary artery disease status post revascularization and asymptomatic. Aortic valve disease status post valve replacement and asymptomatic. Over anticoagulation with warfarin. PLAN: 1. I would recommend stopping the metoprolol. Another reasonable option would be to reduce the dose by half and down to 12.5 mg at bedtime. 2. I have no recommendations regarding his valvular disease or coronary artery disease at t his time. Thank you for allowing us to participate in the care of this patient. Electronically signed by: Jaren Aguilera MD 04/03/2015 9:16 Portions of this chart may have been created with [employer] voice recognition software. Occasi onal wrong-word or sound-alike substitutions may have occurred due to the inherent carter itations of voice recognition software. Please read the chart carefully and recognize, using context, where these substitutions have occurred. documented in this encounter ED Notes Tristan Garcia MD - 04/01/2015 1:18 PM PDTFormatting of this note might be differe nt from the original. [facility] Jacklyn Siddiqi Emergency Department Encounter Note [address] [place] [id number] PCP:Ferdinand Goldberg [phone] CHIEF COMPLAINT: Chief Complaint Patient presents with Coagulation Disorder Directed to ED from [facility] with INR 13.0. Pt. bleeding from multiple skin tears. ED Room: ED02/ED02 HPI Jacklyn Siddiqi is a 79 y.o. male who presents to the Emergency Department for evaluation. The patient was sent from the [place] when he was found to have an elevated INR. He has had spontan eous bleeding from skin tears as well as left-sided epistaxis. He denies injury or trauma. He denies headache. Denies abdominal pain, chest pain, or shortness of breath. PAST MEDICAL & SURGICAL HISTORY Past Medical History Diagnosis Date H/O aortic valve replacement 2005 [facility] INR goal is 2-3 Hypertension Liver cirrhosis (HCC) CVA (cerebral infarction) (HCC) 3-2014 lacunar (not stated as new nor old) Dementia Alcoholic cirrhosis (HCC) 2004 CT scan 2004 at [facility] Endocarditis 2009 Enterococcus 6 weeks Amp + Gent PSA elevation 2009 Pt declined Bx then Peripheral vertigo 2012 BPPV left Venous ulcer (HCC) 2013 Leg Retinal detachment 2010 CAD (coronary artery disease) [place] says had CABG with his AVR Pulmonary HTN (HCC) Severe on Echo 2014 Diastolic CHF (HCC) Echo 2014 EF 68, ascites, pulm HTN Over-anticoagulated 04/01/2015 Past Surgical History Procedure Laterality Date [facility]iac surgery [facility] CURRENT MEDICATIONS Previous Medications No medications on file ALLERGIES Allergies Allergen Reactions Latex Rash FAMILY AND SOCIAL HISTORY Family History Problem Relation Age of Onset Heart disease Father History Social History Marital Status: Spouse Name: N/A Number of Children: N/A Years of Education: N/A Social History Main Topics Smoking status: Never Smoker Smokeless tobacco: None Alcohol Use: No Drug Use: None Sexual Activity: None Other Topics Concern None Social History Narrative None REVIEW OF SYSTEMS As in history of present illness. A 10 system review was otherwise negative. PHYSICAL EXAM VITAL SIGNS: (first vital signs):Temp: 36 C (96.8 F) Pulse: 62 Resp: 18 SpO2: 100 % BP: 100/63 mmHg Constitutional: male patient, No acute distress HEENT: Atraumatic, PERRL, Oropharynx benign. Neck: Supple with full range of motion. Respiratory: Good air movement bilaterally. No wheezes, No, rales. Cardiovascular: Normal S1 S2 Abdomen: Soft, nontender. No rebound, guarding, or masses. Bowel tones normal. No pulsa tile masses Back: Within normal limits Extremities: Multiple small skin tears which had been oozing blood but are not actively hem orrhaging and are bandaged. Trace edema, no calf asymmetry. Present distal pulses. Neurologic: Alert & oriented. Cranial nerves II-XII intact , Gait and speech are normal Psychiatric: Normal mood, affect and judgement. LABS Results for orders placed during the hospital encounter of 04/01/15 CBC WITH DIFFERENTIAL Result Value Ref Range WBC 7.4 4.0-11.0 K/uL RBC 4.09 (*) 4.30-5.70 M/uL Hgb 11.3 (*) 13.5-18.0 g/dL Hct 34.9 (*) 40.0-51.0 % MCV 85.4 83.0-101.0 fL MCH 27.6 (*) 28.0-35.0 pg MCHC 32.4 32.0-36.0 g/dL RDW 16.2 (*) <15.0 % Platelet Count 204 140-440 K/uL MPV 8.4 % Neutrophils 48.4 45.0-82.0 % % Lymphocytes 35.6 20.0-45.0 % % Monocytes 12.6 (*) 4.0-12.0 % % Eosinophils 3.1 0.0-5.0 % % Basophils 0.3 0.0-1.0 % Absolute Neutrophils 3.60 1.80-8.50 K/uL Absolute Lymphocytes 2.60 0.60-3.20 K/uL Absolute Monocytes 0.90 0.00-1.00 K/uL Absolute Eosinophils 0.20 0.00-0.40 K/uL Absolute Basophils 0.00 0.00-0.10 K/uL BASIC METABOLIC PANEL Result Value Ref Range NA 137 136-149 mmol/L K 4.7 3.5-5.1 mmol/L CL 103 98-109 mmol/L CO2 27 24-31 mmol/L ANION GAP 7 3-16 mmol/L GLUCOSE 102 70-109 mg/dL BUN 66 (*) 7-18 mg/dL Creatinine, Serum/Plasma 2.26 (*) 0.60-1.30 mg/dL eGFR if not 28 (*) >=60 mL/min/1.73m2 CALCIUM 9.3 8.3-10.5 mg/dL BUN/CREA 29.2 PROTIME INR Result Value Ref Range PROTIME 101.8 (*) 11.3-13.9 seconds INR >10.00 (*) 0.90-1.10 URINALYSIS WITH MICROSCOPIC WITH CULTURE IF INDICATED Result Value Ref Range COLOR Yellow Light Yellow, Yellow CLARITY Clear Clear PH UA 5.5 5.0-8.0 Specific Seco 1.010 1.001-1.030 PROTEIN UA Negative Negative BLOOD UA Negative Negative GLUCOSE UA Negative Negative KETONES UA Negative Negative BILIRUBIN UA Negative Negative NITRITE UA Negative Negative LEUKOCYTES ESTERASE UA Negative Negative UROBILINOGEN UA 0.2 E.U./dL 0.2 E.U./dL, 1.0 E.U./dL WBC UA 0-2 0-2 /HPF RBC UA 0-2 0-2 /HPF SQUAMOUS EPITHELIAL UA 0-2 0-2 /LPF BACTERIA UA Negative Negative /HPF URINE COMMENT Urine Culture Not Indicated SLIDE REVIEW, PERIPHERAL SMEAR Result Value Ref Range WBC MORPHOLOGY Normal Platelet Estimate Adequate Adequate HYPOCHROMIA Slight (*) (none) OVALOCYTES Slight (*) (none) RBC MICROCYTES Moderate (*) (none) Anisocytosis Moderate (*) (none) TYPE AND SCREEN Result Value Ref Range ABO O Rh Type Negative PRODUCT: PLASMA, FROZEN <24 Result Value Ref Range Product Code Fresh Frozen Plasma Thawed UNIT # [id number] UNIT ABO AB UNIT RH NEG Unit Status Crossmatched PRODUCT: PLASMA, FROZEN <24 Result Value Ref Range Product Code Fresh Frozen Plasma Thawed UNIT # [id number] UNIT ABO AB UNIT RH NEG Unit Status Crossmatched ED COURSE & MEDICAL DECISION MAKING Pertinent Labs & Imaging studies were reviewed along with EMS notes and senior living record s if applicable. (See chart for details) Medications and Allergy list reviewed. Nurses note and old records were reviewed The patient was seen and examined, I confirmed his elevated INR as greater than 10. He was given FFP and oral vitamin K. Given the degree of his excessive anticoagulation he should be hospitalized. I have discussed this case with Dr. Phelps who is coming to evaluate the silviano romeo further FINAL IMPRESSION 1. Excessive anticoagulation 2. Epistaxis 3. H/O aortic valve replacement 4. Essential hypertension 5. Dementia, without behavioral disturbance 6. Alcoholic cirrhosis of liver without ascites (HCC) 7. Coronary artery disease with unspecified angina pectoris (HCC) 8. Pulmonary HTN (HCC) 9. Chronic diastolic congestive heart failure (HCC) Tristan Garcia MD 04/01/15 1321 do cumented in this encounter Miscellaneous Notes Plan of Care - Ana Dietrich, Rac Specialist-Clinical - 04/04/2015 11:56 AM PDTDischarge plans cont: Per request of Hospitalist, pertinent medical records including H&P, Dr. Aguilera consult, D/C summary, and labs faxed to [facility] at f# [phone] with call to Padmini confirming th is fax. Confirmation placed in ghost chart. T/C to [facility] regarding a referral order for this patient, and they st ated that patient is not considered home bound if he is driving himself to [facility] lab terese ly and they could not take him as a patient. T/C made to Cassandra, patient's RN daughter,and POA out of town, and explained the above to her and she agreed with the plan of her brother, Chris Siddiqi, patient's son, who lives across to from patient, to be in charge of her father's med set, since patient did live with him fo r several months prior to living on his own again. T/C to Chris at p#[phone], and he confirmed that he would be able to do that and would be out at his father's house at about 1700 tonight to set up his new med set without the co umadin in it since it is being [facility]. This CM e xplained to him that his father would not be able to cognitively do this anymore and would h ave to have close monitoring making sure he takes them correctly twice daily and he stated h e could do this. Spoke with Padmini at the [facility] about possibly getting this patient on the Home Based Progr am per K[facility]'s [facility] that [facility]. Padmini stated that she would be in the notes regarding this request to his PCP, Dr. Goldberg, where this will need to be started. Also, spoke with Janna, at the [facility] Coumadin clinic, and she requested that this CM send th e discharge summary and latest INR to her attn to f# [phone]. This was done and confirm ation placed in ghost chart. Janna stated that patient's MIXER AND SCALER is Ehllen Alla at the [facility] Coumadin clinic. Patient's son, Jacklyn, transported patient home today to [place], [place].Electronically johnny d by: Ana Dietrich DRIVE WORKER 04/04/2015 12:14 lan of Care - Mary Cantu RN - 04/04/2015 6:00 AM PDTProblem: General Plan of Care (Adul t, Obstetrics) Goal: Care Plan Shift Summary & Review . Outcome: Progressing SD -Elevated INR with bleeding. INR - 3.87 (no change from yesterday). Ambulated in halls l ast night. Possible DC this AM. BM this AM, adequate UO. Cardiology consulted for albino y, not a candidate for a pacemaker at this time. Left EF 65-70%. lan of [facility] - Mary Fiore RN - 04/03/2015 10:05 PM PDTProblem: General Plan of Care (Adult, Obstetrics ) Goal: Individualization/Patient-Specific Goal (Adult, Obstetrics) Pt. Is independent at home. Pt likes to have warm blankets when going to sleep at night. Pt likes skim milk with every meal. Outcome: Progressing lan of [facility] Mary Morataya RN - 04/03/2015 10:05 PM PDTProblem: Heart Failure (Adult, Obstetrics) Goal: Prevent/Manage Potential Problems (Heart Failure (Adult, Obstetrics)) Outcome: Signs and symptoms of listed potential problems will be absent or manageable (refe rence CPG) Outcome: Progressing lan of [facility] Susu Tam RN - 04/03/2015 6:10 PM PDTProblem: General Plan of Care (Adult, Obstetrics) Goal: Care Plan Shift Summary & Review . Outcome: Progressing SD - 79 YO M - admitted for elevated INR with bleeding. INR - 3.8. No bleeding noted. Patie nt up ambulating morris, anticipate discharge in AM. Cardiology consulted for tachy-hang, no new orders, not a candidate for a pacemaker at this time. Left EF 65-70%. Susu Quiles lan of [facility] Ashley Marques RN - 04/03/2015 10:08 AM PDTProblem: General Plan of Care (Adult, Obstetrics) Goal: Care Plan Shift Summary & Review . Discharge planning; Reviewed Ana's 04/01 notes. Discussed case with Dr. Phelps. Dr. Phelps is planning on discharging Mr. Siddiqi on Saturday, 04/04. He would like him to have increased [place] s upport. He needs closer med management.. Faxed update to [facility] and requested to evaluate his eligibility for Home Based Primary Care or increased Home Health visits. His daughter ([facility]) was managing his meds, but his med changes happen frequently and he needs more oversight than she can provide long distance. Ana to follow up with [facility] on 04/04/15. Karyn Marques RNnon profit financial controller lan of Care - Ayah Puentes RN - 04/03/2015 5:07 AM PDTProblem: General Plan of Care (Adult, Obstetrics) Goal: Care Plan Shift Summary & Review . Outcome: Progressing Pt problem is metabolic/electrolyte imbalance. Patience labs are slowly getting better k+5. 0, Bun/creatine were 44/1.83, INR 3.87 this morning. Patient was able to go over his menu wi th nurse and tell her what he should and should not eat. He was also able to explain the fir st signs of bleeding and when he needs to come into the hospital when or if he gets into tro uble with bleeding again. lan of Care - Sanam Price RN - 04/02/2015 5:01 PM PDTProblem: General Plan of Care (Adult, Obstetrics) Goal: Care Plan Shift Summary & Review . Outcome: Progressing SD- Admitted for INR, acute renal failure and nose bleed. Dressings removed from skin tears and no active bleeding, open to air. Requires norco q 4 hours. Pain managed. HR 49 this am prior to metoprolol dose, Dr. Phelps cut dose in half, received 12.5mg and battled sinus arrh ythmia, pause, PAC's and hang down to the 38. New ECG done for noted ST elevation on tele l salo. No acute change from am ECG. Patient asymptomatic, denies chest pain or SOB. Able to s hower and ambulate hallways today. Other than HR and rhythm, VSS, alert and oriented and anx ious to go home. lan of Care - Sanam Cuellar RN - 04/02/2015 4:51 PM PDTProblem: Heart Failure (Adult, Obstetrics) Goal: Prevent/Manage Potential Problems (Heart Failure (Adult, Obstetrics)) Outcome: Signs and symptoms of listed potential problems will be absent or manageable (refe rence CPG) Outcome: Not Progressing Today patient with sinus arrhythmia, sinus pause, and PAC's. Noted ST segment elevation on tele and ECG done. No notable ST elevation in ECG from this am [facility] Phelps aware and orders to stop beta birdie given. Increased K+ noted and medication given to br ing K+ down. Elevated BNP, creatine up today. Able to take naps throughout the day. Walke d around ICU x 2, able to shower on RA without having resp distress or C/O chest pain. VS w ith HR's in the 30's. lan of Care - Sanam Murphy RN - 04/02/2015 4:45 PM PDT Problem: Acute Renal Failure/Acute Kidney Injury (Adult) Goal: Prevent/Manage Potential Problems (Acute Renal Failure/Acute Kidney Injury (Adult)) Outcome: Signs and symptoms of listed potential problems will be absent or manageable (refe rence CPG) Outcome: Progressing Patient started on lasix today. Adequate UOP but not a lot. Creatine Results for KAREN SIDDIQI ( ) as of 04/02/2015 16:40 Ref. Range 12/02/2012 16:47 04/01/2015 10:59 04/02/2015 04:01 04/02/2015 15:56 CREA Latest Range: 0.60-1.30 mg/dL 1.25 2.26 (H) 1.80 (H) 2.01 (H) Potassium Results for JACKLYN SIDDIQI ( ) as of 04/02/2015 16:40 Ref. Range 04/01/2015 10:59 04/02/2015 04:01 04/02/2015 15:56 K Latest Range: 3.5-5.1 mmol/L 4.7 5.0 5.2 (H) lan of Care - Mary Moser RN - 04/02/2015 6:07 AM PDTProblem: General Plan of Care (Adult, Obstetrics) Goal: Care Plan Shift Summary & Review . Outcome: Progressing SD- Admitted for INR of 13 and nose bleed. Multiple skin tears on UE and LE's, dressing in place. This AM's INR-3.79. FFP and Vit K given in ED. Patient alert and oriented. C/O chroni c back pain, medicated X's 1 with Hydrocodone (Order changed from Q6H PRN to Q4H PRN per Pt. Request). 2L O2 NC placed onto pt. Around 0600 for sats dipping down to mid 80's while slee ping. BM X's 1 last night, voiding in urinal. lan of [facility] - Mary Fiore RN - 04/01/2015 9:32 PM PDTProblem: Acute Renal Failure/Acute Kidney Injury (Adult) Goal: Prevent/Manage Potential Problems (Acute Renal Failure/Acute Kidney Injury (Adult)) Outcome: Signs and symptoms of listed potential problems will be absent or manageable (refe rence CPG) Outcome: Progressing lan of Care - Mary Morataya RN - 04/01/2015 9:32 PM PDTProblem: General Plan of Care (Adult, Obstetric s) Goal: Individualization/Patient-Specific Goal (Adult, Obstetrics) Pt. Is independent at home. Outcome: Progressing lan of [facility] - Mary Morataya RN - 04/01/2015 9:32 PM PDTProblem: Heart Failure (Adult, Obstetrics) Goal: Prevent/Manage Potential Problems (Heart Failure (Adult, Obstetrics)) Outcome: Signs and symptoms of listed potential problems will be absent or manageable (refe rence CPG) Outcome: Progressing lan of Sanam Apodaca RN - 04/01/2015 5:59 PM PDTProblem: General Plan of Care (Adult, Obstetrics) Goal: Care Plan Shift Summary & Review . Outcome: Progressing SD- Admitted for INR of 13 and nose bleed. No active bleeding at this time. Multiple skin tears on UE and LE's. Now with INR of 2.88. FFPx2 and Vit K 5mg in ED. ECHO done with go od EF and IVC. Renal US done, still waiting for results. Patient very alert and oriented. C/O chronic back pain and medicated per order with pain reduction. In and out of bed indep endently with stand by assist for safety. [facility] lan of Care - Ana Dietrich, Rac Specialist-Clinical - 04/01/2015 5:41 PM PDTProblem: General Plan of Care (Adul t, Obstetrics) Goal: Care Plan Shift Summary & Review . Discharge plans: Met with patient in his room. He was talkative but at times stopped in the middle of the sentence trying to remember what to say. He states he is living in one of his son's homes in [place] while he is gone and he is ta dann care of his dog. He reports that the home is a single level home. He also uses a cane to walk since his legs have been giving him some pain issues. He still drives and actually was driving here to go see his MD, Dr. Goldberg at the [place], whe rina they called and had him go straight to the ED here at the hospital, due to his high INR va lues. He confirmed he is a and gets his meds thru mail order from the [facility] and he can us e [facility] for any short term meds. His friend, Matthew Boyd, actually had to finish driving him here since he got stopped for s peeding on the way over here. Patient also states that his one son, Jacklyn, lives across town from him and he will be his transport home. He also states that he calls his son every am. Verified that he has had [facility] come out to his home after his open heart surgery and he was happy with them and would accept that support when he goes back home. He also stated that his iyyzyxzm-xh-bfs is planning on coming in from [place] on Saturday an d will be staying there at the house for about 2-3 weeks, which was confirmed with his daugh ter, Cassandra, when this CM called her. T/C made to Cassandra Guthrie p# [phone], and left a message to return call. She called gustabo jones and we spoke for awhile about her father's discharge plane since she is his POA and and RN . She stated that she tries to come once monthly and check on his med management but she is n oticing he is not doing well with this. She also reported that when her dad becomes agitated that he has left AMA from hospitals in the past. He is a little bit of a hoarder and buys food everyday, which he cannot use up. She stated that he really does not have dementia per se, but does have memory loss at times. Cassandra reports that her father also uses [facility] for [facility] and wt readings. Cassandra will also try and see if her father will accept a lifeline wristwatch and she will be responsible for the cost, since he does not have the finances. Patient told me that he is connected with the [facility] in [place] and they have helped him by paying his Medicare premiums. Patient is here under his [facility] benefits since they sent him here and he wishes to keep it yahaira t way. Cassandra stated that Chris, patient's other son, whom the patient had lived with in the past, w ill be here shortly visiting his father. Cassandra has concerns that some of her father's friends are taking advantage of him in regards to his narcotics. She states she can't be certain. Sticky note left for MD requesting a HH RN Safety eval med management at discharge, also a PT evparth while in the hospital to assist with discharge planning. CM to follow.Electronically signed by: Ana Dietrich, DRIVE WORKER 04/01/2015 17:40 D Triage Notes - Dion Monaco RN - 04/01/2015 9:41 AM PDTPt. Bleeding from multiple sites, and epistaxis. 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) | +--------+ + + + + | 01/05/ | Office | Cardiology | Emely Gabriel, | | | 2020 | Visit | | MIXER AND SCALER [address] | | | | | | [place] | | | | | | [id number] | | | | | | | | +--------+ + + + + documented as of this encounter Procedures + +--------+ + + + | Procedure Name | Priori | Date/Time | Associated Diagnosis | Comments | | | ty | | | | + +--------+ + + + | TRANSFUSE FROZEN | STAT | 04/12/2015 | | | | PLASMA | | 4:49 PM | | | | | | PDT | | | + +--------+ + + + | ECG 12 LEAD | Routin | 04/04/2015 | | Results for this | | | e | 7:10 AM | | procedure are in the | | | | PDT | | results section. | + +--------+ + + + | ECG 12 LEAD | STAT | 04/04/2015 | | Results for this | | | | 7:10 AM | | procedure are in the | | | | PDT | | results section. | + +--------+ + + + | PT 1:1 MIXING | STAT | 04/04/2015 | | Results for this | | STUDIES | | 6:30 AM | | procedure are in the | | | | PDT | | results section. | + +--------+ + + + | PROTIME INR | Routin | 04/04/2015 | | Results for this | | | e | 4:11 AM | | procedure are in the | | | | PDT | | results section. | + +--------+ + + + | CBC NO DIFFERENTIAL | Routin | 04/04/2015 | | Results for this | | | e | 4:11 AM | | procedure are in the | | | | PDT | | results section. | + +--------+ + + + | RENAL FUNCTION PANEL | Routin | 04/04/2015 | | Results for this | | | e | 4:11 AM | | procedure are in the | | | | PDT | | results section. | + +--------+ + + + | CORTISOL, 60 MIN | Timed | 04/03/2015 | | Results for this | | | | 7:30 AM | | procedure are in the | | | | PDT | | results section. | + +--------+ + + + | CORTISOL, 30 MIN | Timed | 04/03/2015 | | Results for this | | | | 6:54 AM | | procedure are in the | | | | PDT | | results section. | + +--------+ + + + | CORTISOL STIMULATION | Timed | 04/03/2015 | | Results for this | | | | 6:54 AM | | procedure are in the | | | | PDT | | results section. | + +--------+ + + + | CORTISOL, BASELINE | Timed | 04/03/2015 | | Results for this | | | | 6:05 AM | | procedure are in the | | | | PDT | | results section. | + +--------+ + + + | CORTISOL, AM | Routin | 04/03/2015 | | Results for this | | | e | 4:06 AM | | procedure are in the | | | | PDT | | results section. | + +--------+ + + + | PROTIME INR | Routin | 04/03/2015 | | Results for this | | | e | 4:06 AM | | procedure are in the | | | | PDT | | results section. | + +--------+ + + + | CBC NO DIFFERENTIAL | Routin | 04/03/2015 | | Results for this | | | e | 4:06 AM | | procedure are in the | | | | PDT | | results section. | + +--------+ + + + | RENAL FUNCTION PANEL | Routin | 04/03/2015 | | Results for this | | | e | 4:06 AM | | procedure are in the | | | | PDT | | results section. | + +--------+ + + + | PROTIME INR | Routin | 04/02/2015 | | Results for this | | | e | 3:56 PM | | procedure are in the | | | | PDT | | results section. | + +--------+ + + + | BASIC METABOLIC | Routin | 04/02/2015 | | Results for this | | PANEL | e | 3:56 PM | | procedure are in the | | | | PDT | | results section. | + +--------+ + + + | PRODUCT: PLASMA, | Routin | 04/02/2015 | | Results for this | | FROZEN <24 | e | 7:15 AM | | procedure are in the | | | | PDT | | results section. | + +--------+ + + + | PRODUCT: PLASMA, | Routin | 04/02/2015 | | Results for this | | FROZEN <24 | e | 7:15 AM | | procedure are in the | | | | PDT | | results section. | + +--------+ + + + | THYROID PANEL | Routin | 04/02/2015 | | Results for this | | | e | 4:01 AM | | procedure are in the | | | | PDT | | results section. | + +--------+ + + + | TROPONIN I | Routin | 04/02/2015 | | Results for this | | | e | 4:01 AM | | procedure are in the | | | | PDT | | results section. | + +--------+ + + + | PROTIME INR | Routin | 04/02/2015 | | Results for this | | | e | 4:01 AM | | procedure are in the | | | | PDT | | results section. | + +--------+ + + + | CBC NO DIFFERENTIAL | Routin | 04/02/2015 | | Results for this | | | e | 4:01 AM | | procedure are in the | | | | PDT | | results section. | + +--------+ + + + | MAGNESIUM | Routin | 04/02/2015 | | Results for this | | | e | 4:01 AM | | procedure are in the | | | | PDT | | results section. | + +--------+ + + + | RENAL FUNCTION PANEL | Routin | 04/02/2015 | | Results for this | | | e | 4:01 AM | | procedure are in the | | | | PDT | | results section. | + +--------+ + + + | US RENAL LIMITED | STAT | 04/01/2015 | | Results for this | | | | 5:23 PM | | procedure are in the | | | | PDT | | results section. | + +--------+ + + + | PROTIME INR | STAT | 04/01/2015 | | Results for this | | | | 3:39 PM | | procedure are in the | | | | PDT | | results section. | + +--------+ + + + | ECHO COMPLETE | JUNAID | 04/01/2015 | | Results for this | | | | 3:36 PM | | procedure are in the | | | | PDT | | results section. | + +--------+ + + + | CULTURE, MRSA | Routin | 04/01/2015 | | Results for this | | | e | 2:40 PM | | procedure are in the | | | | PDT | | results section. | + +--------+ + + + | TRANSFUSE FROZEN | STAT | 04/01/2015 | | | | PLASMA | | 2:30 PM | | | | | | PDT | | | + +--------+ + + + | SODIUM, URINE, | JUNAID | 04/01/2015 | | Results for this | | RANDOM | | 2:04 PM | | procedure are in the | | | | PDT | | results section. | + +--------+ + + + | CREATININE, URINE, | JUNAID | 04/01/2015 | | Results for this | | RANDOM | | 2:04 PM | | procedure are in the | | | | PDT | | results section. | + +--------+ + + + | TYPE AND SCREEN | Routin | 04/01/2015 | | Results for this | | | e | 12:11 PM | | procedure are in the | | | | PDT | | results section. | + +--------+ + + + | URINALYSIS WITH | STAT | 04/01/2015 | | Results for this | | MICROSCOPIC WITH | | 11:04 AM | | procedure are in the | | CULTURE IF INDICATED | | PDT | | results section. | + +--------+ + + + | SLIDE REVIEW, | Routin | 04/01/2015 | | Results for this | | PERIPHERAL SMEAR | e | 10:59 AM | | procedure are in the | | | | PDT | | results section. | + +--------+ + + + | PROTIME INR | STAT | 04/01/2015 | | Results for this | | | | 10:59 AM | | procedure are in the | | | | PDT | | results section. | + +--------+ + + + | CBC WITH | STAT | 04/01/2015 | | Results for this | | DIFFERENTIAL | | 10:59 AM | | procedure are in the | | | | PDT | | results section. | + +--------+ + + + | CK TOTAL | Add-On | 04/01/2015 | | Results for this | | | | 10:59 AM | | procedure are in the | | | | PDT | | results section. | + +--------+ + + + | BASIC METABOLIC | STAT | 04/01/2015 | | Results for this | | PANEL | | 10:59 AM | | procedure are in the | | | | PDT | | results section. | + +--------+ + + + | ED INFORMATION | Routin | 04/01/2015 | | Results for this | | EXCHANGE | e | 9:29 AM | | procedure are in the | | | | PDT | | results section. | + +--------+ + + + | LVEF VALUE | Routin | 04/01/2015 | | Results for this | | | e | | | procedure are in the | | | | | | results section. | + +--------+ + + + documented in this encounter Results ECG 12 lead (04/04/2015 7:10 AM PDT) + + + | Narrative | Performed At | + + + | Eren Justice MD 04/04/2015 7:10 Adult ECG Report | | | Name: Jacklyn Siddiqi Age: 79 y.o. Gender: male 04/02/15 at 11:40 | | | Narrative Interpretation: Sinus bradycardia. Left bundle branch | | | block. Compared to EKG done 04/02/15 at 6:50 there are new T-wave | | | inversions in leads V4-6: Consider ischemia/infarction or evolution | | | of a recent ischemic event. | | + + + ECG 12 lead (04/04/2015 7:10 AM PDT) + + + | Narrative | Performed At | + + + | Eren Justice MD 04/04/2015 7:10 Adult ECG Report | | | Name: Jacklyn Siddiqi Age: 79 y.o. Gender: male 04/02/15 at 6:50 | | | Narrative Interpretation: Sinus bradycardia. Normal axis. Left | | | bundle branch block. Cannot exclude ischemia/infarction. | | + + + PT 1:1 Mixing Studies (04/04/2015 6:30 AM PDT) + + + + + + | Component | Value | Ref Range | Performed | Pathologist | | | | | At | Signature | + + + + + + | Prothrombin | 37.8 (H) | 11.3 - 13.9 | [facility] | | | Time | | seconds | [facility] | | | | | | MEDICAL | | | | | | CENTER - | | | | | | LABORATORY | | + + + + + + | PT NPP 1:1 | 14.6 | seconds | [facility] | | | Mix, | | | [facility] | | | Immediate | | | MEDICAL | | | | | | CENTER - | | | | | | LABORATORY | | + + + + + + | Pooled | 11.4 | seconds | [facility] | | | Normal | | | [facility] | | | Plasma | | | MEDICAL | | | | | | CENTER - | | | | | | LABORATORY | | + + + + + + | Comment | | | [facility] | | | | | | [facility] | | | | | | MEDICAL | | | | | | CENTER - | | | | | | LABORATORY | | + + + + + + + + | Specimen | + + | Blood - Left upper | | arm structure (body | | structure) | + + + + + + + | Performing | Address | City/State/Zipcode | Phone Number | | Organization | | | | + + + + + | [facility] | [address] | [place] | [phone] | | [facility] | | [address] | | | - LABORATORY | | | | + + + + + CBC no Differential (04/04/2015 4:11 AM PDT) + + + + + + | Component | Value | Ref Range | Performed | Pathologist | | | | | At | Signature | + + + + + + | White Blood | 4.5 | 4.0 - 11.0 K/uL | [facility] | | | Cells | | | [facility] | | | | | | MEDICAL | | | | | | CENTER - | | | | | | LABORATORY | | + + + + + + | Red Blood | 3.26 (L) | 4.30 - 5.70 | [facility] | | | Cells | | M/uL | [facility] | | | | | [...] + + + + | Hematocrit | 28.0 (L) | 40.0 - 51.0 % | [...] + + + + | MCH | 28.2 | 28.0 - 35.0 pg | [facility] [...] | | | | | | [facility] | | | | | | MEDICAL [...] + + + + | MPV | 8.5 | fL | [facility] | | | [...] ST. | [address] | [place] | [phone] | | [facility] | | [address] | | | - LABORATORY | | | | + + + + + Protime INR (04/04/2015 4:11 AM PDT) + + + + + + | Component | Value | Ref Range | Performed | Pathologist | | | | | At | Signature | + + + + + + | Prothrombin | 38.3 (H) | 11.3 - 13.9 | [facility] | | | Time | | seconds | [facility] | | | | | | MEDICAL | | | | | | CENTER - | | | | | | LABORATORY | | + + + + + + | INR | 3.87 (H)Comment: Usual | 0.90 - 1.10 | [address] | [place] | [phone] | | [facility] | | [address] | | | - LABORATORY | | | | + + + + + Renal Function Panel (04/04/2015 4:11 AM PDT) + + + + + + | Component | Value | Ref Range | Performed | Pathologist | | | | | At | Signature | + + + + + + | Na | 134 (L) | 136 - 149 | [facility] | | | | | mmol/L | [facility] | | | | | | MEDICAL | | | | | | CENTER - | | | | | | LABORATORY | | + + + + + + | K | 5.0 | 3.5 - 5.1 | [facility] | | | | | mmol/L | [facility] | | | | | | MEDICAL | | | | | | CENTER - | | | | | | LABORATORY | | + + + + + + | Cl | 104 | 98 - 109 mmol/L | [facility] [...] + + + + | Glucose | 111 (H) | 70 - 109 mg/dL | [...] + + + + | Creatinine | 1.34 (H) | 0.60 - 1.30 | [facility] [...] | mL/min/1.73m2 | [facility] | | | [place] | RATE,ESTIMATED | | MEDICAL | | | | mL/min/1.20e9Hjko than | | CENTER - | | [...] + + + + | Albumin | 3.1 (L) | 3.2 - 5.0 g/dL | [facility] | | | | | | [facility] | | | | | | MED[facility] | | | | | | CENTER - | | | | | | LABORATORY | | + + + + + + | Phosphorus | 3.2 | 2.5 - 4.6 mg/dL | [facility] | | | | | | [facility] | | | | | | MEDICAL | | | | | | CENTER - | | | | | | LABORATORY | | + + + + + + | BUN/Creatin | 29.9 | | [facility] | | | ine [address] | [place] | [phone] | | [facility] | | [address] | | | - LABORATORY | | | | + + + + + Cortisol, 60 Min (04/03/2015 7:30 AM PDT) + +-------+ + + + | Component | Value | Ref Range | Performed | Pathologist | | | | | At | Signature | + +-------+ + + + | CORTISOL 60 | 24.6 | ug/dL | [facility] | | | MIN | | | [facility] | | | | | [...] [address] | [place] | [phone] | | [facility] | | [address] | | | - LABORATORY | | | | + + + + + Cortisol, 30 Min (04/03/2015 6:54 AM PDT) + + + + + + | Component | Value | Ref Range | Performed | Pathologist | | | | | At | Signature | + + + + + + | CORTISOL 30 | 20.9 | ug/dL | [facility] | | | MIN | | | [facility] | | | | | | MEDICAL | | | | | | CENTER - | | | | | | LABORATORY | | + + + + + + | Comment | Comment: Normal peak | | [facility] | | | | serum cortisol is GT 20 | | [facility] | | | | ug/dL, 30 to 60 minutes | | MEDICAL | | | | after 25 units | | CENTER - | | | | cosyntropin IV. | | LABORATORY | | + + + + + + + + | Specimen | + + | Blood | + + + + + + + | Performing | Address | City/State/Zipcode | Phone Number | | Organization | | | | + + + + + | [facility] | [address] | [place] | [phone] | | [facility] | | [address] | | | - LABORATORY | | | | + + + + + Cortisol, Baseline (04/03/2015 6:05 AM PDT) + +-------+ + + + | Component | Value | Ref Range | Performed | Pathologist | | | | | At | Signature | + +-------+ + + + | CORTISOL | 8.4 | 6.7 - 22.6 | [facility] | | | BASE | | ug/dL | [facility] | | | | [...] [address] | [place] | [phone] | | [facility] | | [address] | | | - LABORATORY | | | | + + + + + CBC no Differential (04/03/2015 4:06 AM PDT) + + + + + + | Component | Value | Ref Range | Performed | Pathologist | | | | | At | Signature | + + + + + + | White Blood | 4.4 | 4.0 - 11.0 K/uL | [facility] | | | Cells | | | [facility] | | | | | | MEDICAL | | | | | | CENTER - | | | | | | LABORATORY | | + + + + + + | Red Blood | 3.42 (L) | 4.30 - 5.70 | [facility] | | | Cells | | M/uL | [facility] | | | | | | MEDICAL | | | | | | CENTER - | | | | | | LABORATORY | | + + + + + + | Hemoglobin | 9.5 (L) | 13.5 - 18.0 | [facility] | | | | | g/dL | [facility] | | | | | | MEDICAL | | | | | | CENTER - | | | | | | LABORATORY | | + + + + + + | Hematocrit | 29.7 (L) | 40.0 - 51.0 % | [facility] | | | | | | [facility] | | | | | | MEDICAL | | | | | | CENTER - | | | | | | LABORATORY | | + + + + + + | MCV | 86.8 | 83.0 - 101.0 fL | [facility] | | | | | | [facility] | | | | | | MEDICAL | | | | | | CENTER - | | | | | | LABORATORY | | + + + + + + | MCH | 27.8 (L) | 28.0 - 35.0 pg | [...] + + + + | Platelet | 145 | 140 - 440 K/uL | [facility] [...] + | [facility] | [address] | [place] | [phone] | | [facility] | | [address] | | | - LABORATORY | | | | + + + + + Protime INR (04/03/2015 4:06 AM PDT) + + + + + + | Component | Value | Ref Range | Performed | Pathologist | | | | | At | Signature | + + + + + + | Prothrombin | 38.3 (H) | 11.3 - 13.9 | [facility] | | | Time | | seconds | [facility] | | | | | | MEDICAL | | | | | | CENTER - | | | | | | LABORATORY | | + + + + + + | INR | 3.87 (H)Comment: Usual | 0.90 - 1.10 | [...] + | [facility] | [address] | [place] | [phone] | | [facility] | | [address] | | | - LABORATORY | | | | + + + + + Renal Function Panel (04/03/2015 4:06 AM PDT) + + + + + [...] K | 5.0 | 3.5 - 5.1 | [facility] | [...] + + + | Anion Gap | 3 | 3 - 16 mmol/L | [facility] | | | | | | [facility] | | | | | | MEDICAL | | | | | | CENTER - | | | | | | LABORATORY | | + + + + + + | Glucose | 102 | 70 - 109 mg/dL | [facility] | | | | | | [facility] | | | | | | MEDICAL | | | | | | CENTER - | | | | | | LABORATORY | | + + + + + + | BUN | 44 (H) | 7 - 18 mg/dL | [facility] | | | | | | [facility] | | | | | | MEDICAL | | | | | | CENTER - | | | | | | LABORATORY | | + + + + + + | Creatinine | 1.83 (H) | 0.60 - 1.30 | [facility] [...] non- | GLOMERULAR FILTRATION | mL/min/1.73m2 | [facility] | | | [place] | RATE,ESTIMATED | | MEDICAL | | | | mL/min/1.17v8Tbva than | | CENTER - | | [...] | | | | | mg/dL | [facility] | | | | | | MEDICAL | | | | | | CENTER - | | | | | | LABORATORY | | + + + + + + | Albumin | 3.1 (L) | 3.2 - 5.0 g/dL | [facility] | | | | | | [facility] | | | | | | MEDICAL | | | | | | CENTER - | | | | | | LABORATORY | | + + + + + + | Phosphorus | 3.4 | 2.5 - 4.6 mg/dL | [facility] | | | | | | [facility] | | | | | | MEDICAL | | | | | | CENTER - | | | | | | LABORATORY | | + + + + + + | BUN/Creatin | 24.0 | | [facility] | | | ine Ratio | | | . [facility] | | [...] + | [facility] | [address] | [place] | [phone] | | [facility] | | [address] | | | - LABORATORY | | | | + + + + + Cortisol, AM (04/03/2015 4:06 AM PDT) + +-------+ + + + | Component | Value | Ref Range | Performed | Pathologist | | | | | At | Signature | + +-------+ + + + | Cortisol, | 9.6 | 6.7 - 22.6 | [facility] | | | AM | | ug/dl | [facility] | | | | | [...] + | [facility] | [address] | [place] | [phone] | | [facility] | | [address] | | | - LABORATORY | | | | + + + + + Basic Metabolic Panel (04/02/2015 3:56 PM PDT) + + + + + [...] + + + + | K | 5.2 (H) | 3.5 - 5.1 | [facility] [...] + + + + | BUN | 45 (H) | 7 - 18 mg/dL | [facility] | | | | | | [facility] | | | | | | MEDICAL | | | | | | CENTER - | | | | | | LABORATORY | | + + + + + + | Creatinine | 2.01 (H) | 0.60 - 1.30 | [facility] | | | | | mg/dL | [facility] | | | | | | MEDICAL | | | | | | CENTER - | | | | | | LABORATORY | | + + + + + + | eGFR, | 32 (L)Comment: | >=60 | [facility] | | | non- | GLOMERULAR FILTRATION | mL/min/1.73m2 | [facility] | | | [place] | RATE,ESTIMATED | | MEDICAL | | | | mL/min/1.90y2Zapi than | | CENTER - | | [...] + + + + | Calcium | 8.6 | 8.3 - 10.5 | [facility] | | | | | mg/dL | [facility] | | | | | | MEDICAL | | | | | | CENTER - | | | | | | LABORATORY | | + + + + + + | BUN/Creatin | 22.4 | | [facility] | | | ine [...] [address] | [place] | [phone] | | [facility] | | [address] | | | - LABORATORY | | | | + + + + + Protime INR (04/02/2015 3:56 PM PDT) + + + + + + | Component | Value | Ref Range | Performed | Pathologist | | | | | At | Signature | + + + + + + | Prothrombin | 35.7 (H) | 11.3 - 13.9 | [facility] | | | Time | | seconds | [facility] | | | | | | MEDICAL | | | | | | CENTER - | | | | | | LABORATORY | | + + + + + + | INR | 3.54 (H)Comment: Usual | 0.90 - 1.10 | [...] + | [facility] | [address] | [place], [place] | [phone] | | [facility] | | [address] | | | - LABORATORY | | | | + + + + + PRODUCT: Plasma, Frozen <24 (04/02/2015 7:15 AM PDT) + + + + + + | Component | Value | Ref Range | Performed | Pathologist | | | | | At | Signature | + + + + + + | Product | Fresh Frozen Plasma | | [facility] | | | Code | Thawed | | [facility] | | | | | | MEDICAL | | | | | | CENTER - | | | | | | BLOOD BANK | | + + + + + + | UNIT # | [id number] | | [facility] | | | | | | [facility] | | | | | | MEDICAL | | | | | | CENTER - | | | | | | BLOOD BANK | | + + + + + + | UNIT ABO | AB | | [facility] | | | | | | [facility] | | | | | | MEDICAL | | | | | | CENTER - | | | | | | BLOOD BANK | | + + + + + + | UNIT RH | NEG | | [facility] | | | | | | [facility] | | | | | | MEDICAL | | | | | | CENTER - | | | | | | BLOOD BANK | | + + + + + + | Unit Status | Transfused | | [facility] | | | | | | [facility] | | | | | | MEDICAL | | | | | | CENTER - | | | | | | BLOOD BANK | | + + + + + + + + | Specimen | + + | | + + + + + + + | Performing | Address | City/State/Zipcode | Phone Number | | Organization | | | | + + + + + | [facility] | [address] | [place] | | | [facility] | | [address] | | | - BLOOD BANK | | | | + + + + + PRODUCT: Plasma, Frozen <24 (04/02/2015 7:15 AM PDT) + + + + + + | Component | Value | Ref Range | Performed | Pathologist | | | | | At | Signature | + + + + + + | Product | Fresh Frozen Plasma | | [facility] | | | Code | Thawed | | [facility] | | | | | | MEDICAL | | | | | | CENTER - | | | | | | BLOOD BANK | | + + + + + + | UNIT # | [id number] | | [facility] | | | | | | [facility] | | | | | | MEDICAL | | | | | | CENTER - | | | | | | BLOOD BANK | | + + + + + + | UNIT ABO | AB | | [facility] | | | | | | [facility] | | | | | | MEDICAL | | | | | | CENTER - | | | | | | BLOOD BANK | | + + + + + + | UNIT RH | NEG | | [facility] | | | | | | [facility] | | | | | | MEDICAL | | | | | | CENTER - | | | | | | BLOOD BANK | | + + + + + + | Unit Status | Transfused | | [facility] | | | | | | [facility] | | | | | | MEDICAL | | | | | | CENTER - | | | | | | BLOOD BANK | | + + + + + + + + | Specimen | + + | | + + + + + + + | Performing | Address | City/State/Zipcode | Phone Number | | Organization | | | | + + + + + | [facility] | [address] | [place] | | | [facility] | | [address] | | | - BLOOD BANK | | | | + + + + + Magnesium (04/02/2015 4:01 AM PDT) + +---------+ + + + | Component | Value | Ref Range | Performed | Pathologist | | | | | At | Signature | + +---------+ + + + | Magnesium | 2.7 (H) | 1.8 - 2.5 mg/dL | [facility] | | | | | | [facility] | | | | | | [facility] | | | | | | CENTER [...] [address] | [place] | [phone] | | [facility] | | [address] | | | - LABORATORY | | | | + + + + + Thyroid Panel (04/02/2015 4:01 AM PDT) + + + + + + | Component | Value | Ref Range | Performed | Pathologist | | | | | At | Signature | + + + + + + | T3 UPTAKE | 48.7 (H) | 32.0 - 48.4 % | [facility] | | | | | | [facility] | | | | | | MEDICAL | | | | | | CENTER - | | | | | | LABORATORY | | + + + + + + | T4, Total | 8.6 | 4.7 - 9.8 ug/dL | [facility] | | | | | | [facility] | | | | | | MEDICAL | | | | | | CENTER - | | | | | | LABORATORY | | + + + + + + | Free | 10.5 | 5.9 - 13.1 | [facility] | | | Thyroxine | | | [facility] | | | Index | | | MEDICAL | | | [...] [address] | [place] | [phone] | | [facility] | | [address] | | | - LABORATORY | | | | + + + + + Troponin I (04/02/2015 4:01 AM PDT) + + + + + [...] | | | | | | [employer] | | | | | [...] [facility] | [address] | [place], [place] | [phone] | | [facility] | | [address] | | | - LABORATORY | | | | + + + + + CBC no Differential (04/02/2015 4:01 AM PDT) + + + + + + | Component | Value | Ref Range | Performed | Pathologist | | | | | At | Signature | + + + + + + | White Blood | 5.7 | 4.0 - 11.0 K/uL | [facility] | | | Cells | | | [facility] | | | | | | MEDICAL | | | | | | CENTER - | | | | | | LABORATORY | | + + + + + + | Red Blood | 3.34 (L) | 4.30 - 5.70 | [facility] | | | Cells | | M/uL | [facility] | | | | | | MEDICAL | | | | | | CENTER - | | | | | | LABORATORY | | + + + + + + | Hemoglobin | 9.5 (L) | 13.5 - 18.0 | [facility] | | | | | g/dL | [facility] | | | | | | MEDICAL | | | | | | CENTER - | | | | | | LABORATORY | | + + + + + + | Hematocrit | 28.6 (L) | 40.0 - 51.0 % | [facility] | | | | | | [facility] | | | | | | MEDICAL | | | | | | CENTER - | | | | | | LABORATORY | | + + + + + + | MCV | 85.5 | 83.0 - 101.0 fL | [facility] | | | | | | [facility] | | | | | | MEDICAL | | | | | | CENTER - | | | | | | LABORATORY | | + + + + + + | MCH | 28.3 | 28.0 - 35.0 pg | [facility] | | | | | | [facility] | | | | | | MEDICAL | | | | | | CENTER - | | | | | | LABORATORY | | + + + + + + | MCHC | 33.1 | 32.0 - 36.0 | [facility] | [...] + | [facility] | [address] | [place] | [phone] | | [facility] | | [address] | | | - LABORATORY | | | | + + + + + Protime INR (04/02/2015 4:01 AM PDT) + + + + + + | Component | Value | Ref Range | Performed | Pathologist | | | | | At | Signature | + + + + + + | Prothrombin | 37.7 (H) | 11.3 - 13.9 | [facility] | | | Time | | seconds | [facility] | | | | | | MEDICAL | | | | | | CENTER - | | | | | | LABORATORY | | + + + + + + | INR | 3.79 (H)Comment: Usual | 0.90 - 1.10 | [...] [address] | [place] | [phone] | | [facility] | | [id number] | | | - LABORATORY | | | | + + + + + Renal Function Panel (04/02/2015 4:01 AM PDT) + + + + + + | Component | Value | Ref Range | Performed | Pathologist | | | | | At | Signature | + + + + + + | Na | 142 | 136 - 149 | [facility] | | | | | mmol/L | [facility] | | | | | | [facility] | | | | | | CENTER - | | | | | | LABORATORY | | + + + + + + | K | 5.0 | 3.5 - 5.1 | [facility] | | | | | mmol/L | [facility] | | | | | | MEDICAL | | | | | | CENTER - | | | | | | LABORATORY | | + + + + + + | Cl | 111 (H) | 98 - 109 mmol/L | [...] + + + + | BUN | 52 (H) | 7 - 18 mg/dL | [facility] | | | | | | [facility] | | | | | | MEDICAL | | | | | | CENTER - | | | | | | LABORATORY | | + + + + + + | Creatinine | 1.80 (H) | 0.60 - 1.30 | [facility] | | | | | mg/dL | [facility] | | | | | | MEDICAL | | | | | | CENTER - | | | | | | LABORATORY | | + + + + + + | eGFR, | 36 (L)Comment: | >=60 | [facility] | | | non- | GLOMERULAR FILTRATION | mL/min/1.73m2 | [facility] | | | [place] | RATE,ESTIMATED | | MEDICAL | | | | mL/min/1.10n2Smno than | | CENTER - | | [...] + + + + | Calcium | 8.6 | 8.3 - 10.5 | [facility] | | | | | mg/dL | [facility] | | | [facility] | | [facility] | | | | | | [facility] - | | | | | | LABORATORY | | + + + + + + | Albumin | 3.2 | 3.2 - 5.0 g/dL | [facility] | | | | | | [facility] | | [facility] | [facility] | | | | | | [facility] - | | | | | | LABORATORY | | + + + + + + | Phosphorus | 3.7 | 2.5 - 4.6 mg/dL | [facility] | | | | | | [facility] | | [facility] | [facility] | | | | | | C[facility] - | | | | | | LABORATORY | | + + + + + + | BUN/Creatin | 28.9 | | [facility] | | | ine [...] [address] | [place] | [phone] | | [facility] | | [address] | | | - LABORATORY | | | | + + + + + US Renal Limited (04/01/2015 5:23 PM PDT) + + | Specimen | + + | | + + + + + | Narrative | Performed At | + + + | RENAL ULTRASOUND 04/01/2015 4:43 PM CLINICAL HISTORY: acute renal | [facility] | | failure COMPARISON: CT ABDOMEN OCTOBER 2003 FINDINGS: The | | | right kidney measures 10.1 x 5.2 x 6.2 cm and the left kidney | | | measures 10.1 x 5.0 x 6.3 cm. Resistive indices are elevated, | | | measuring up to 0.84 on the right and 0.82 on the left. No renal | | | parenchymal abnormality is visible. There is no hydronephrosis. | | | The bladder is unremarkable in contour and appearance, with a | | | calculated volume of 79 cc, which reportedly was obtained after | | | voiding, which occurred prior to the exam. Ureteral jets are not | | | observed during the study. IMPRESSION - 1. ELEVATED RENAL | | | RESISTIVE INDICES SUGGESTING MEDICAL RENAL DISEASE. NO | | | HYDRONEPHROSIS. 2. 79 CC POST VOID BLADDER RESIDUAL. | | | Dictated and Signed by: Yakov Starks MD Electronically signed: | | | 04/01/2015 5:35 PM | | + + + + + | Procedure Note | + + | Duane, Rad Results In - 04/01/2015 5:39 PM PDT RENAL ULTRASOUND 04/01/2015 4:43 PM | | | | CLINICAL HISTORY: acute renal failure | | | | COMPARISON: CT ABDOMEN OCTOBER 2003 | | | | FINDINGS: The right kidney measures 10.1 x 5.2 x 6.2 cm and the left kidney | | measures 10.1 x 5.0 x 6.3 cm. Resistive indices are elevated, measuring up to | | 0.84 on the right and 0.82 on the left. No renal parenchymal abnormality is | | visible. There is no hydronephrosis. | | | | The bladder is unremarkable in contour and appearance, with a calculated volume | | of 79 cc, which reportedly was obtained after voiding, which occurred prior to | | the exam. Ureteral jets are not observed during the study. | | | | IMPRESSION - | | | | 1. ELEVATED RENAL RESISTIVE INDICES SUGGESTING MEDICAL RENAL DISEASE. NO | | HYDRONEPHROSIS. | | | | 2. 79 CC POST VOID BLADDER RESIDUAL. | | | | Dictated and Signed by: Yakov Starks MD | | Electronically signed: 04/01/2015 5:35 PM | + + + +---------+ + + | Performing | Address | City/State/Zipcode | Phone Number | | Organization | | | | + +---------+ + + | [facility] | | | | + +---------+ + + Protime INR (04/01/2015 3:39 PM PDT) + + + + + + | Component | Value | Ref Range | Performed | Pathologist | | | | | At | Signature | + + + + + + | Prothrombin | 30.4 (H) | 11.3 - 13.9 | [facility] | | | Time | | seconds | [facility] | [facility] | | | [facility] | | | | | | C[facility] - | | | | | | LABORATORY | | + + + + + + | INR | 2.88 (H)Comment: Usual | 0.90 - 1.10 | [...] [address] | [place] | [phone] | | [facility] | | [address] | | | - LABORATORY | | | | + + + + + ECHO Complete (04/01/2015 3:36 PM PDT) + + | Specimen | + + | | + + + + + | Narrative | Performed At | + + + | [facility] ECHOCARDIOGRAM REPORT | | | STUDY DATE: 04/01/2015 PATIENT NAME: Jacklyn Siddiqi : | | | 1935 PCP: Ferdinand Goldberg MD | | | CLINICAL HISTORY/DIAGNOSIS: CHF, [facility] AOV, PULM HTN A | | | transthoracic echocardiogram with M-mode, pulsed-wave and color | | | Doppler was performed with standard views obtained. The technical | | | quality of this examination is good. The heart rhythm during the | | | echo is sinus rhythm. The M-mode, two-dimensional, color flow and | | | spectral Doppler data were reviewed and support the following | | | interpretation: Interpretation: Left Atrium: Left atrial size is | | | mildly dilated. Right Atrium: Right atrial size is mildly dilated. | | | Right ventricle: Right ventricular size is normal with normal wall | | | thickness and normal right ventricular systolic function. Left | | | ventricle: Left ventricular size is normal with normal wall | | | thickness and motion, and normal left ventricular systolic function. | | | The estimated ejection fraction is 65-70 %. Grade 1 left | | | ventricular diastolic dysfunction. Aortic root: Aortic root is | | | normal. Aortic valve: Evidence of a mechanical bileaflet [facility] | | | aortic valve replacement. Peak velocity across aortic valve is 1.9 | | | m/s, peak gradient of 15 mmHg, mean gradient of 7 mmHg. No | | | significant aortic valve insufficiency seen. Mitral valve: Mitral | | | valve is mildly thickened and calcified with a mild mitral valve | | | regurgitation. mild mitral annular calcification. Pulmonic valve: | | | Pulmonic valve is normal. mild pulmonary valve insufficiency. | | | Tricuspid valve: Tricuspid valve is normal. mild tricuspid valve | | | regurgitation. Vena cava: The inferior vena cava is normal. There | | | is greater than 50% inspiratory collapse of the IVC. Pericardium: | | | Pericardium is normal. Pulmonary artery: Pulmonary artery is | | | normal. moderate pulmonary hypertension with a peak systolic | | | pressure of 55-60 mmHg. IMPRESSIONS: 1. Mild biatrial | | | dilatation. 2. Normal left ventricular size, wall thickness and | | | motion. Preserved left ventricular systolic function. LVEF is | | | 65-70%. 3. Grade 1 left ventricular diastolic dysfunction. 4. | | | Normally functioning mechanical bileaflet aortic valve replacement. | | | 4. Mildly thickened and calcified mitral valve with a mild mitral | | | valve regurgitation. 5. Mild mitral annular calcification. 6. | | | Mild tricuspid valve regurgitation. 7. Moderate pulmonary | | | hypertension with a peak systolic pressure of 55-60 mmHg. 8. | | | Normal IVC with normal respiratory collapse. 9. No previous | | | echocardiography for comparison. Measurements: Height: | | | 67 Weight: 181 Aortic root: 34 mm Aortic cusp sep: mm LA: | | | 51 mm IVS-diastole: 9 mm IVS-systole: 14 mm LVPW diastole: | | | 8 mm LVPW systole: 18 mm LV diameter-diastole: 51 mm LV | | | diameter-systole: 27 mm Fractional shortenin % PFV aortic | | | valve: 1.91 m/s MPG mitral valve: mmHg PFV TR jet: 3.52 m/s | | | RA/RV PP mmHg LA volume: 53 mL LA index: 28 mL/m2 Mitral | | | Inflow DT: 180 ms IVRT: 91 ms Valsalva: Yes, to no effect | | | PWDTI S wave: 4.9 cm/s PWDTI E wave: 3.7 cm/s PWDTI A wave: | | | 5.4 cm/s E/A Ratio: 0.685 E/E Ratio: 31.84 Signed | | | by: Cruzito Bird MD [facility] 04/01/2015 15:47 | | | [place] Hand: Jp Jaquez, JENNIFER, RVT, RDMS | | + + + Culture, MRSA (04/01/2015 2:40 PM PDT) + + + + + [...] [address] | [place] | [phone] | | [facility] | | [address] | | | - LABORATORY | | | | + + + + + Creatinine, Urine, Random (04/01/2015 2:04 PM PDT) + +-------+ + + + | Component | Value | Ref Range | Performed | Pathologist | | | | | At | Signature | + +-------+ + + + | Creatinine, | 46 | mg/dL | [facility] | | | Urine, | | | [facility] | | | Random | | | MEDICAL | | | | | | CENTER - | | | | | | LABORATORY | | + +-------+ + + + + + | Specimen | + + | Urine - Urine | | specimen (specimen) | + + + + + | [...] + | [facility] | [address] | [place] | [phone] | | [facility] | | [address] | | | - LABORATORY | | | | + + + + + Sodium, Urine, Random (04/01/2015 2:04 PM PDT) + +-------+ + + + | Component | Value | Ref Range | Performed | Pathologist | | | | | At | Signature | + +-------+ + + + | Sodium, | 74 | 27 - 287 mmol/L | [facility] | | | Urine | | | [facility] | | | Random | | | MEDICAL | | | | | | CENTER - | | | | | | LABORATORY | | + +-------+ + + + + + | Specimen | + + | Urine - Urine | | specimen (specimen) | + + + + + + + | Performing | Address | City/State/Zipcode | Phone Number | | Organization | | | | + + + + + | [facility] | [address] | [place], [place] | [phone] | | [facility] | | [address] | | | - LABORATORY | | | | + + + + + Type and Screen (04/01/2015 12:11 PM PDT) + + + + + + | Component | Value | Ref Range | Performed | Pathologist | | | | | At | Signature | + + + + + + | ABO | O | | [facility] | | | | | | [facility] | | | | | | MEDICAL | | | | | | CENTER - | | | | | | BLOOD BANK | | + + + + + + | Rh Type | Negative | | [facility] | | | | | | [facility] | | | | | | MEDICAL | | | | | | CENTER - | | | | | | BLOOD BANK | | + + + + + + | Antibody | Negative | | [facility] | | | Screen | | | [facility] | | | | | | MEDICAL | | | | | | CENTER - | | | | | | BLOOD BANK | | + + + + + + + + | Specimen | + + | Blood specimen | | (specimen) | + + + + + + + | Performing | Address | City/State/Zipcode | Phone Number | | Organization | | | | + + + + + | [facility] | [address] | [place] | | | [facility] | | [address] | | | - BLOOD BANK | | | | + + + + + Urinalysis with Microscopic with Culture if Indicated (04/01/2015 11:04 AM PDT) + + + + + + | Component | Value | Ref Range | Performed | Pathologist | | | | | At | Signature | + + + + + + | Color, | Yellow | Light Yellow, | [facility] | | | Urine | | Yellow | [facility] | | | | [...] + + + | pH, Urine | 5.5 | 5.0 - 8.0 | [facility] | | | | | | [facility] | | | | | | MEDICAL | | | | | | CENTER - | | | | | | LABORATORY | | + + + + + + | Specific | 1.010 | 1.001 - 1.030 | [facility] | | | [place], | | | [facility] | | [...] + + + | Urobilinoge | 0.2 E.U./dL | 0.2 E.U./dL, | [facility] | | | n, Urine | | 1.0 E.U./dL | [facility] | | | | [...] Urine | Urine Culture Not | | [facility] | | | Comment | Indicated | | [facility] | | | | [...] [address] | [place] | [phone] | | [facility] | | [address] | | | - LABORATORY | | | | + + + + + CK Total (04/01/2015 10:59 AM PDT) + +-------+ + + + | Component | Value | Ref Range | Performed | Pathologist | | | | | At | Signature | + +-------+ + + + | CK TOTAL | 147 | 22 - 269 U/L | [facility] | | | | [...] + | [facility] | [address] | [place] | [phone] | | [facility] | | [address] | | | - LABORATORY | | | | + + + + + Slide Review, Peripheral Smear (04/01/2015 10:59 AM PDT) + + + + + [...] | | | Estimate | | | [facility] | | [...] + + + + + + | Ovalocytes | Slight (A) | (none) | [facility] | | | | | | [facility] | | | | | | MEDICAL | | | | | | CENTER - | | | | | | LABORATORY | | + + + + + + | RBC | Moderate (A) | (none) | [facility] | | | Microcytes | | | [facility] | | | | | | MEDICAL | | | | | | CENTER - | | | | | | LABORATORY | | + + + + + + | Anisocytosi | Moderate (A) | (none) | [facility] | | | s | | | [facility] | | | | | | MEDICAL | | | | | | CENTER - | | | | | | LABORATORY | | + + + + + + + + | Specimen | + + | Blood | + + + + + | Narrative | Performed At | + + + | Approximately 10% variant lymphocytes seen on smear review. | [facility] | | | [facility] | | | [facility] | | | - LABORATORY | + + + + + + + + | Performing | Address | City/State/Zipcode | Phone Number | | Organization | | | | + + + + + | [facility] | [address] | [place] | [phone] | | [facility] | | [address] | | | - LABORATORY | | | | + + + + + Protime INR (04/01/2015 10:59 AM PDT) + + + + + + | Component | Value | Ref Range | Performed | Pathologist | | | | | At | Signature | + + + + + + | Prothrombin | 101.8 (H) | 11.3 - 13.9 | [facility] | | | Time | | seconds | [facility] | | | | | | MEDICAL | | | | | | CENTER - | | | | | | LABORATORY | | + + + + + + | INR | >10.00 ()Comment: | 0.90 - 1.10 | [facility] | | | | Critical Result called | | [facility] | | | | to and read back by | | MEDICAL | | | | Todd John on | | CENTER - | | | | 04/01/2015 at 12:16 by | | LABORATORY | | | | Jerson Mayorga. Usual | | | | | | Oral Anticoagulation | | | | | | Range: 2.0 - | | | | | | 3.0High Level Oral | | | | | | Anticoagulation Range: | | | | | | 2.5 - 3.5 | | | | + + + + + + + + | Specimen | + + | Blood | + + + + + + + | Performing | Address | City/State/Zipcode | Phone Number | | Organization | | | | + + + + + | [facility] | [address] | [place] | [phone] | | [facility] | | [address] | | | - LABORATORY | | | | + + + + + Basic Metabolic Panel (04/01/2015 10:59 AM PDT) + + + + + [...] Cl | 103 | 98 - 109 mmol/L | [facility] [...] + + + + | Glucose | 102 | 70 - 109 mg/dL | [facility] | | | | | | [facility] | | | | | | MEDICAL | | | | | | CENTER - | | | | | | LABORATORY | | + + + + + + | BUN | 66 (H) | 7 - 18 mg/dL | [facility] | | | | | | [facility] | | | | | | MEDICAL | | | | | | CENTER - | | | | | | LABORATORY | | + + + + + + | Creatinine | 2.26 (H) | 0.60 - 1.30 | [facility] | | | | | mg/dL | [facility] | | | | | | MEDICAL | | | | | | CENTER - | | | | | | LABORATORY | | + + + + + + | eGFR, | 28 (L)Comment: | >=60 | [facility] | | | non- | GLOMERULAR FILTRATION | mL/min/1.73m2 | [facility] | | | [place] | RATE,ESTIMATED | | MEDICAL | | | | mL/min/1.74f0Xdql than | | CENTER - | | [...] ST. | [address] | [place], [place] | [phone] | | [facility] | | [address] | | | - LABORATORY | | | | + + + + + CBC with Differential (04/01/2015 10:59 AM PDT) + + + + + + | Component | Value | Ref Range | Performed | Pathologist | | | | | At | Signature | + + + + + + | White Blood | 7.4 | 4.0 - 11.0 K/uL | [facility] | | | Cells | | | [facility] | | | | | | MEDICAL | | | | | | CENTER - | | | | | | LABORATORY | | + + + + + + | Red Blood | 4.09 (L) | 4.30 - 5.70 | [facility] [...] + + + + | Hematocrit | 34.9 (L) | 40.0 - 51.0 % | [...] + + + + | MCH | 27.6 (L) | 28.0 - 35.0 pg | [facility] | | | | | | [facility] | | | | | | MEDICAL | | | | | | CENTER - | | | | | | LABORATORY | | + + + + + + | MCHC | 32.4 | 32.0 - 36.0 | [facility] | [...] + + + + | Platelet | 204 | 140 - 440 K/uL | [facility] | | | Count | | | [facility] | | | | | | MEDICAL | | | | | | CENTER - | | | | | | LABORATORY | | + + + + + + | MPV | 8.4 | fL | [facility] | | | | | | [facility] | | | | | | MEDICAL | | | | | | CENTER - | | | | | | LABORATORY | | + + + + + + | % | 48.4 | 45.0 - 82.0 % | [facility] | | | Neutrophils | | | [facility] | | | | | | MEDICAL | | | | | | CENTER - | | | | | | LABORATORY | | + + + + + + | % | 35.6 | 20.0 - 45.0 % | [facility] | | | Lymphocytes | | | [facility] | | | | | | MEDICAL | | | | | | CENTER - | | | | | | LABORATORY | | + + + + + + | % Monocytes | 12.6 (H) | 4.0 - 12.0 % | [facility] | | | | | | [facility] | | | | | | MEDICAL | | | | | | CENTER - | | | | | | LABORATORY | | + + + + + + | % | 3.1 | 0.0 - 5.0 % | [facility] [...] + + + + | Absolute | 3.60 | 1.80 - 8.50 | [facility] | | | Neutrophils | | K/uL | [facility] | | | | | | MEDICAL | | | | | | CENTER - | | | | | | LABORATORY | | + + + + + + | Absolute | 2.60 | 0.60 - 3.20 | [facility] | [...] [address] | [place] | [phone] | | [facility] | | [address] | | | - LABORATORY | | | | + + + + + ED INFORMATION EXCHANGE (04/01/2015 9:29 AM PDT) + + | Specimen | + + | | + + + + + | Narrative | Performed At | + + + | INPATIENT VISIT TRACKING (1 MO.) Visit Date | [facility] | | LocationTypeDiagnoses | | | VISIT TRACKING (3 MO.) Visit Date | | | Location Type | | | Diagnoses -------- | | | ---- 04/01/2015 | | | 09:27 [facility] Emergency | | | VISIT COUNT (1 YR.) Visits Medicaid [place] Dx Location | | | ------ --------- 1 0 | | | [facility] 1 0 | | | [facility] 2 0 | | | Total Note: Visits indicate total known visits. | | | Medicaid [place] Dx are the number of primary diagnoses on the [facility]'s | | | non-emergent dx list. | | | | | | --- [facility] has no Care Guidelines for this patient. [place] | | | Prescription Review PDMP Report (previous six months). Fill Date | | | Drug Description Qty. Prescriber | | | CS MED --------- | | | ---- -- | | | --- 2015-03-24 HYDROCODON-ACETAMINOPHEN 5-325 112 | | | FERDINAND GOLDBERG 2 0.0 2015-02-24 | | | HYDROCODON-ACETAMINOPHEN 5-325 112 FERDINAND MAYOY | | | 2 0.0 2015-01-26 HYDROCODON-ACETAMINOPHEN 5-325 | | | 112 FERDINAND MAYOY 2 0.0 2014-12-29 | | | HYDROCODON-ACETAMINOPHEN 5-325 112 FERDINAND MAYOY | | | 2 0.0 2014-12-01 HYDROCODON-ACETAMINOPHEN 5-325 | | | 112 FERDINAND MAYOY 2 0.0 12 Month | | | Prescription Summary -Number of CS Rx:5 -Number of CS-II Rx:5 | | | -Total dispensed quantity:[id number] -Unique Prescribers:1 | | | -Unique Pharmacies:1 -Opioid Rx Count:0 -Long Acting Opioid | | | Rx Count:0 -Benzo Rx Count:0 | | + + + + +---------+ + + | Performing | Address | City/State/[facility] Hospital[facility] | Phone Number | | Organization | | | | + +---------+ + + | [place] [facility] | | | | + +---------+ + + LVEF VALUE (04/01/2015) + +-------+ + + + | Component | Value | Ref Range | Performed | Pathologist | | | | | At | Signature | + +-------+ + + + | LVEF-TTE | 65 | | | | | TRANSTHORAC | | | | | | IC ECHO | | | | | + +-------+ + + + documented in this encounter Visit Diagnoses + + | Diagnosis | + + | Over-anticoagulated - Primary | + + | Excessive anticoagulation Encounter for long-term (current) use of anticoagulants | + + | Epistaxis | + + | H/O aortic valve replacement Heart valve replaced by other means | + + | Essential hypertension Unspecified essential hypertension | + + | Dementia, without behavioral disturbance | + + | Alcoholic cirrhosis of liver without ascites (HCC) Alcoholic cirrhosis of liver | + + | 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.] | atorvaSTATin (LIPITOR) tablet | Given | 04/03/20 | 10 mg | | | | 10 mg 10 mg, Oral, NIGHTLY, | | 15 8:02 | | | | | First dose on Sat04/01/15 at 2100 | | PM PDT | | | | + +--------+ +-------+------+------+ +-------+ +-------+---+---+ | Given | 04/02/20 | 10 mg | | | | | 15 8:51 | | | | | | PM PDT | | | | +-------+ +-------+---+---+ | Given | 04/01/20 | 10 mg | | | | | 15 8:46 | | | | | | PM PDT | | | | +-------+ +-------+---+---+ +---+---+ | | | +---+---+ + +-------+ +---------+---+---+ | cosyntropin (CORTROSYN) | Given | 04/03/20 | 250 mcg | | | | injection 250 mcg 250 mcg, | | 15 6:03 | | | | | Intravenous, ONCE, 04/03/15 at | | AM PDT | | | | | 0615, For 1 dose, Mix with 1 mL | | | | | | | NS to make 250 mcg/mL. May | | | | | | | further dilute in 2-5 mL NS for | | | | | | | IV use., | | | | | | + +-------+ +---------+---+---+ +---+---+ | | | +---+---+ + +-------+ +--------+---+---+ | cyanocobalamin (VITAMIN B-12) | Given | 04/04/20 | 1,000 | | | | tablet 1,000 mcg 1,000 mcg, | | 15 8:38 | mcg | | | | Oral, DAILY, First dose on Sat | | AM PDT | | | | | 04/02/15 at 0900 | | | | | | + +-------+ +--------+---+---+ +-------+ +--------+---+---+ | Given | 04/03/20 | 1,000 | | | | | 15 9:25 | mcg | | | | | AM PDT | | | | +-------+ +--------+---+---+ | Given | 04/02/20 | 1,000 | | | | | 15 8:24 | mcg | | | | | AM PDT | | | | +-------+ +--------+---+---+ +---+---+ | | | +---+---+ + +-------+ +---------+---+---+ | fludrocortisone (FLORINEF) | Given | 04/02/20 | 0.05 mg | | | | tablet 0.05 mg 0.05 mg, Oral, | | 15 5:58 | | | | | ONCE, 04/02/15 at 1715, For 1 | | PM PDT | | | | | dose | | | | | | + +-------+ +---------+---+---+ +---+---+ | | | +---+---+ + +-------+ +-------+---+---+ | furosemide (LASIX) tablet 40 mg | Given | 04/04/20 | 40 mg | | | | 40 mg, Oral, DAILY, First dose | | 15 8:27 | | | | | on 04/02/15 at 0915 | | AM PDT | | | | + +-------+ +-------+---+---+ +-------+ +-------+---+---+ | Given | 04/03/20 | 40 mg | | | | | 15 9:25 | | | | | | AM PDT | | | | +-------+ +-------+---+---+ | Given | 04/02/20 | 40 mg | | | | | 15 12:38 | | | | | | PM PDT | | | | +-------+ +-------+---+---+ +---+---+ | | | +---+---+ + +-------+ + +---+---+ | HYDROcodone-acetaminophen | Given | 04/01/20 | 1 tablet | | | | (NORCO) 5-325 mg per tablet 1 | | 15 4:44 | | | | | tablet 1 tablet, Oral, EVERY 6 | | PM PDT | | | | | HOURS PRN, Pain, Starting Fri | | | | | | | 04/01/15 at 1418, IV and PO pain | | | | | | | medications may not be | | | | | | | administered at the same time per | | | | | | | policy , | | | | | | + +-------+ + +---+---+ +---+---+ | | | +---+---+ + +-------+ + +---+---+ | HYDROcodone-acetaminophen | Given | 04/04/20 | 1 tablet | | | | (NORCO) 5-325 mg per tablet 1 | | 15 8:27 | | | | | tablet 1 tablet, Oral, EVERY 4 | | AM PDT | | | | | HOURS PRN, Pain, Starting Fri | | | | | | | 04/01/15 at 2045, IV and PO pain | | | | | | | medications may not be | | | | | | | administered at the same time per | | | | | | | policy, | | | | | | + +-------+ + +---+---+ +-------+ + +---+---+ | Given | 04/04/20 | 1 tablet | | | | | 15 4:36 | | | | | | AM PDT | | | | +-------+ + +---+---+ | Given | 04/04/20 | 1 tablet | | | | | 15 12:32 | | | | | | AM PDT | | | | +-------+ + +---+---+ +---+---+ | | | +---+---+ + +-------+ +--------+---+---+ | levothyroxine (SYNTHROID, | Given | 04/04/20 | 25 mcg | | | | LEVOTHROID) tablet 25 mcg 25 | | 15 6:58 | | | | | mcg, Oral, DAILY BEFORE | | AM PDT | | | | | BREAKFAST, First dose on Sat | | | | | | | 04/01/15 at 1445, Give before | | | | | | | breakfast., | | | | | | + +-------+ +--------+---+---+ +-------+ +--------+---+---+ | Given | 04/03/20 | 25 mcg | | | | | 15 9:24 | | | | | | AM PDT | | | | +-------+ +--------+---+---+ | Given | 04/02/20 | 25 mcg | | | | | 15 6:59 | | | | | | AM PDT | | | | +-------+ +--------+---+---+ +---+---+ | | | +---+---+ + +-------+ +---------+---+---+ | metoprolol succinate | Given | 04/02/20 | 12.5 mg | | | | (TOPROL-XL) ER tablet 12.5 mg | | 15 8:24 | | | | | 12.5 mg, Oral, DAILY, First dose | | AM PDT | | | | | (after last modification) on Sat | | | | | | | 04/02/15 at 0900, Tablet may be | | | | | | | cut where scored but do not | | | | | | | crush., | | | | | | + +-------+ +---------+---+---+ +---+---+ | | | +---+---+ + +-------+ +-------+---+---+ | metoprolol succinate | Given | 04/01/20 | 25 mg | | | | (TOPROL-XL) ER tablet 25 mg 25 | | 15 4:44 | | | | | mg, Oral, DAILY, First dose on | | PM PDT | | | | | Sat04/01/15 at 1445, Tablet may | | | | | | | be cut where scored but do not | | | | | | | crush., | | | | | | + +-------+ +-------+---+---+ +---+---+ | | | +---+---+ + +-------+ +------+---+---+ | phytonadione (VITAMIN K) 10 | Given | 04/01/20 | 5 mg | | | | mg/mL liquid 5 mg 5 mg, Oral, | | 15 12:14 | | | | | ONCE, Sat04/01/15 at 1215, For 1 | | PM PDT | | | | | dose | | | | | | + +-------+ +------+---+---+ +---+---+ | | | +---+---+ + +---------+ +---+ +---+ | sodium chloride 0.9% (NS) | New Bag | 04/02/20 | | 50 mL/hr | | | infusion at 50 mL/hr, | | 15 10:38 | | | | | Intravenous, CONTINUOUS, Starting | | PM PDT | | | | | 04/01/15 at 1445 | | | | | | + +---------+ +---+ +---+ + + +---------+ +---+ | Rate/Dose Change | 04/02/20 | 50 mLs | 50 mL/hr | | | | 15 12:37 | | | | | | PM PDT | | | | + + +---------+ +---+ | New Bag | 04/02/20 | 100 mLs | 100 | | | | 15 8:07 | | mL/hr | | | | AM PDT | | | | + + +---------+ +---+ +---+---+ | | | +---+---+ + +-------+ +-------+---+---+ | traZODone (DESYREL) tablet 50 | Given | 04/03/20 | 50 mg | | | | mg 50 mg, Oral, NIGHTLY, First | | 15 8:02 | | | | | dose on 04/01/15 at 2100 | | PM PDT | | | | + +-------+ +-------+---+---+ +-------+ +-------+---+---+ | Given | 04/02/20 | 50 mg | | | | | 15 8:51 | | | | | | PM PDT | | | | +-------+ +-------+---+---+ | Given | 04/01/20 | 50 mg | | | | | 15 8:45 | | | | | | PM PDT | | | | +-------+ +-------+---+---+ +---+---+ | | | +---+---+ documented in this encounter
--- OUTSIDE RECORDS SUMMARY | ~2020-06-28 | XMS | Encounter Summary ---
Demographics + + + | Address | [address] | | | [place] [address] | + + + | Home Phone [...] Team Providers + +------+ + | Care Cnc Machinist Name | Role | Phone | + +------+ + | Antonio Paulino MD | PCP | | + +------+ + Encounter Details +--------+ + + + + | Date | Type | Department | Care Team | Description | +--------+ + + + + | 01/12/ | Abstract | [facility] [place] | Emely Gabriel, | | | 2019 | | CARDIOLOGY [address] | OFFICE TECHNOLOGY INSTRUCTOR [address] | | | | | [place], | [place] | | | | | [place] [address] | [address] | | | | | [phone] | | | +--------+ + + + [...] | 2020 | Monitor | | [address] [facility] | Interrogation | | | | | 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
--- OUTSIDE RECORDS SUMMARY | ~2020-06-28 | XMS | Encounter Summary ---
Demographics + + + | Address | [address] | | | [place] [address] | + + + | Home Phone [...] + + + | Author | [facility] | | | and [place] | + + + | Organization | [facility] | | | [...] Team Providers + +------+ + | Care Milk Tanker Driver Name | Role | Phone | + +------+ + | Antonio Paulino MD | PCP | | + +------+ + Reason for Visit +--------+--------+ + | Reason | Onset | Comments | | | Date | | +--------+--------+ + | Other | 07/22/ | Concern for RA lead function | | | 2018 | | +--------+--------+ + Encounter Details +--------+ + + + + | Date | Type | Department | Care Team | Description | +--------+ + + + + | 07/22/ | Telephone | [facility] | Cruzito Bird, | Other (Concern for | | 2019 | | MAMIE [address] | [address] | RA lead function) | | | | [place], | [place], | | | | | [place] [address] | [place] [address] | | | | | [phone] | [phone] | | | | | | | [...] this encounter Miscellaneous Notes Telephone Encounter - Farhat, Nancy Rossi RN - 07/22/2019 11:34 AM PDTReceived remote [...] | 2019 | Monitor | | [address] [facility] | Interrogation | | | | | [place], | (Primary Dx); | | | | | [place] [address] | Pacemaker Dual | | | | | [phone] | Chamber, MRI | | | | [...] [place] | | | | | | [address] | | | | | | | | +--------+ + + + + documented as of this encounter Visit Diagnoses Not on filedocumented in this encounter"
--- OUTSIDE RECORDS SUMMARY | ~2020-06-28 | XMS | Encounter Summary ---
Demographics + + + | Address | [address] | | | [place] [address] | + + + | Home Phone [...] Team Providers + +------+ + | Care Donor Recruiter Name | Role | Phone | + [...] + | 05/17/ | Telephone | [facility] | Cruzito Bird, | Appointment | | 2016 | | CARDIOLOGY [address] | [address] [place] | | | | | [place], | [place], | | | | | [place] [address] | [place] [address] | | | | | [phone] | [phone] | | | | | | | [...] 11:03 AM PDTPatient requested that I call [facility] at to schedule appointments. Called and left a voicemail message for sarah Zhang to call us back to schedule the ira durham appointments: 1. WOUND CHECK/WALKER (Implanted on 05-14-17) 2. OC/2-3 WK HOSP FUP/HEART FAILURE/WALKER 3. OC/THR PACER-SUW/3 MO INITIAL/WALKER Patient will be a New Patient in our Outpatient clinic. see referral #[id number].Electronicall y signed by Katia Corey at 05/17/2017 11:05 AM PDTTelephone Encounter - Katia Corey - 0 05/17/2017 11:03 AM PDT----- Message from Nancy Dougherty RN sent at 05/15/2017 15:33 PDT ----- Regarding: FW: Appt Dr Nettles also wants a visit in 2-3 weeks for heart failure. ----- Message ----- From: Nancy Dougherty RN Sent: 05/14/2017 10:33 To: [facility] Clinical Staff Subject: Appt Patient was [...] | [address] [facility] | Interrogation | | | | | [place], | (Primary Dx); | | | | | [place] [address] | Pacemaker Dual | | | | | [phone] | Chamber, MRI | | | | | | compatible, 05/14/17 | | | | | | [facility]; | | | | | | 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) | +--------+ + + + + | 01/05/ | Office | Cardiology | Emely Gabriel, | | | 2020 | Visit | | AMANDA [address] [place] | | | | | | [place] | | | | | | [address] | | | | | | | | +--------+ + + + + documented as of this encounter Visit Diagnoses Not on filedocumented in this encounter"
--- OUTSIDE RECORDS SUMMARY | ~2020-06-28 | XMS | Clinical Summary ---
Demographics + + + | Address | [address] | | | [place] [address] | + + + | Home Phone [...] Team Providers + +------+ + | Care Art Museum Docent Name | Role | Phone | + +------+ + | Antonio Paulino MD | PCP | | + +------+ + Allergies + + + + + + | Active Allergy | Reactions | Severity | Noted | Comments | | | | | Date | | + + + + + + | Latex | Rash | Low | 04/01/20 | | | | | | 15 | | + + + + + + Medications + + + +---------+------+------+-------+ | Medication | Sig | Dispensed | Refills | Star | End | Statu | | | | | | t | Date | s | | | | | | Date | | | + + + +---------+------+------+-------+ | levothyroxine | Take 25 mcg by mouth | | 0 | | | Activ | | (SYNTHROID, | every morning | | | | | e | | LEVOTHROID) 25 mcg | (before breakfast). | | | | | | | tablet | | | | | | | + + + +---------+------+------+-------+ | benzonatate | Take 100 mg by mouth | | 0 | | | Activ | | (TESSALON) 100 mg | Twice daily as | | | | | e | | capsule | needed for Cough. | | | | | | + + + +---------+------+------+-------+ | lisinopril | Take 10 mg by mouth | | 0 | | | Activ | | (PRINIVIL, ZESTRIL) | Daily. | | | | | e | | 10 mg tablet | | | | | | | + + + +---------+------+------+-------+ | | Inhale 2 puffs into | | 0 | | | Activ | | budesonide-formotero | the lungs 2 times | | | | | e | | l (SYMBICORT) | daily. | | | | | | | 160-4.5 mcg/puff | | | | | | | | inhaler | | | | | | | + + + +---------+------+------+-------+ | | Take 5 mLs by mouth | | 0 | | | Activ | | guaiFENesin-codeine | every 6 hours as | | | | | e | | (ROBITUSSIN AC) | needed for Cough. | | | | | | | 100-10 mg/5 mL | | | | | | | | liquid | | | | | | | + + + +---------+------+------+-------+ | desonide (DESOWEN) | Apply 1 Units | | 0 | | | Activ | | 0.05% cream | topically. | | | | | e | + + + +---------+------+------+-------+ | magnesium oxide | Take 400 mg by mouth | | 0 | | | Activ | | (MAG-OX) 400 mg | Daily. | | | | | e | | tablet | | | | | | | + + + +---------+------+------+-------+ | terbinafine | Apply 1 Units | | 0 | | | Activ | | (LAMISIL) 1% cream | topically. | | | | | e | + + + +---------+------+------+-------+ | atorvaSTATin | Take 1 tablet by | 90 | 3 | 10/1 | | Activ | | (LIPITOR) 20 mg | mouth nightly. | tablet | | 1/20 | | e | | tablet | | | | 18 | | | + + + +---------+------+------+-------+ | metoprolol | Take 1 tablet by | 90 | 3 | 10/1 | | Activ | | succinate | mouth Daily. | tablet | | 5/20 | | e | | (TOPROL-XL) 50 mg 24 | | | | 18 | | | | hr tablet | | | | | | | + + + +---------+------+------+-------+ | colchicine 0.6 mg | take 1 tablet by | | 0 | 01/1 | | Activ | | tablet | mouth once daily | | | 2/20 | | e | | | | | | 19 | | | + + + +---------+------+------+-------+ | amiodarone | Take 200 mg by mouth | | 0 | 08/0 | | Activ | | (PACERONE) 200 mg | daily. | | | 1/20 | | e | | tablet | | | | 17 | | | + + + +---------+------+------+-------+ | docusate sodium | Take 250 mg by mouth | | 0 | | | Activ | | (COLACE) 250 MG | daily. | | | | | e | | capsule | | | | | | | + + + +---------+------+------+-------+ | losartan (COZAAR) | Take 25 mg by mouth | | 0 | | | Activ | | 25 mg tablet | daily. | | | | | e | + + + +---------+------+------+-------+ | albuterol 90 | Inhale 2 puffs into | | 0 | | | Activ | | mcg/puff inhaler | the lungs every 4 | | | | | e | | | (four) hours as | | | | | | | | needed for Wheezing. | | | | | | + + + +---------+------+------+-------+ | | 1 drop 3 (three) | | 0 | | | Activ | | carboxymethylcellulo | times daily as | | | | | e | | se (REFRESH TEARS) | needed. | | | | | | | 0.5% ophthalmic | | | | | | | | solution | | | | | | | + + + +---------+------+------+-------+ | skin emollient | Apply 1 Units | | 0 | | | Activ | | (EUCERIN CALMING | topically daily as | | | | | e | | DAILY MOIST) cream | needed. | | | | | | + + + +---------+------+------+-------+ | ferrous sulfate | 324 mg. | | 0 | | | Activ | | 324 (65 Fe) MG EC | | | | | | e | | tablet | | | | | | | + + + +---------+------+------+-------+ | furosemide (LASIX) | Take 40 mg by mouth | | 0 | | | Activ | | 40 mg tablet | Daily. | | | | | e | + + + +---------+------+------+-------+ | nitroglycerin | Place 0.4 mg under | | 0 | | | Activ | | (NITROSTAT) 0.4 mg | the tongue every 5 | | | | | e | | SL tablet | (five) minutes as | | | | | | | | needed for Chest | | | | | | | | pain. | | | | | | + + + +---------+------+------+-------+ | nystatin | Apply 1 Units | | 0 | | | Activ | | (MYCOSTATIN) [id number] | topicalnick 3 (three) | | | | | e | | UNIT/GM cream | times daily as | | | | | | | | needed. | | | | | | + + + +---------+------+------+-------+ | traZODone | Take 50 mg by mouth | | 0 | | | Activ | | (DESYREL) 50 mg | nightly. | | | | | e | | tablet | | | | | | | + + + +---------+------+------+-------+ | warfarin | Take 5 mg by mouth | | 0 | | | Activ | | (COUMADIN) 2 mg | daily. Take 5mg | | | | | e | | tablet | daily except on | | | | | | | | and Saturday | | | | | | | | take 10mg daily | | | | | | + + + +---------+------+------+-------+ | methylPREDNISolone | take by mouth as | | 0 | 05/2 | | Activ | | (MEDROL DOSEPAK) 4 | directed PER PACKAGE | | | 8/20 | | e | | mg tablet | DIRECTIONS | | | 19 | | | + + + +---------+------+------+-------+ Active Problems + + + | Problem | Noted Date | + + + | Pacemaker reprogramming/check | 05/14/2017 | + + + | Pacemaker Dual Chamber, MRI compatible, 05/14/17 [facility] | 05/14/2017 | + + + + + | Overview: Formatting of this note might be different from the | | original. MODEL NAME MODEL# SERIAL# DATE IMPLANTED GENERATOR St | | Rupert Assurity MRI [id number] 05/14/[address] [facility]pert Tendril | | MRI [id number] 05/14/[address] [facility]pert Tendril MRI | | [id number] 05/14/17 Indication: Tachycardia-Bradycardia | | Syndrome. | + + + + + | Tachycardia-bradycardia syndrome | 05/13/2017 | + + + + + | Overview: Successful permanent pacemaker (dual chamber St. | | Rupert) implantation on 05/14/2017. | + + + + + | Atrial fibrillation, persistent | 03/19/2016 | + + + + + | Overview: Last Assessment & Plan: Persistent atrial | | fibrillation, currently in sinus rhythm. Anticoagulated, | | warfarin, managed by [facility]. Denies any new visual disturbances, | | dysarthria, dysphasia, lateralizing signs or symptoms. No | | significant bleeding or bruising reported.Lab, 07/31/2016: INR: | | 2.0, WBC: 10.2, H/H: 12.8/40.1, plt: 222Last Assessment & Plan: | | Persistent atrial [...] + + + | Persistent atrial fibrillation | 03/16/2016 | + + + + [...] + + | Acute renal failure (ARF) | 04/01/2015 | + + + | Anemia | 04/01/2015 | + + + | S/P CABG x 1 | 11/16/2004 | + + + + + | Overview: Overview: | | DON > LAD | + + + + + | Status post mechanical aortic valve replacement | 11/16/2004 | + + + + + | Overview: Overview: | | [address] | + + + +---+ | H/O aortic valve replacement | | + +---+ + + | Overview: [facility] AVR INR goal is 2-3 | + + + +---+ | Essential hypertension | | + +---+ | Liver cirrhosis | | + +---+ | Dementia | | + +---+ | Alcoholic cirrhosis | | + +---+ + + | Overview: CT scan 2004 at [facility] | + + + +---+ | Coronary artery disease involving [place] coronary artery of | | | [place] heart without angina pectoris | | + +---+ + + | Overview: [facility] 11/14/2004 shows preserved left ventricular | | [...] + + + +---+ | Pulmonary HTN | | + +---+ + + | Overview: Severe on Echo 2014 | + + + +---+ | Chronic diastolic congestive heart failure | | + +---+ + + | Overview: Echo 2014 EF 68, ascites, pulm HTN | + + Resolved Problems + + + + | Problem | Noted | Resolved | | | Date | Date | + + + + | Acute on chronic diastolic (congestive) heart failure | 03/16/20 | | | | 16 | 7 | + + + + Encounters +--------+ + + + + | Date | Type | Specialty | Care Team | Description | +--------+ + + + + | 06/01/ | Telephone | Cardiology | Emely Gabriel, | Other | | 2020 | | | MGMT SPECIALIST | | +--------+ + + + + | 04/19/ | Implant | Cardiology | Cruzito Bird, | Remote Device | | 2020 | Monitor | | MD | Interrogation [...] | 2020 | Monitor | | MD | Interrogation [...] + + + + | Name | Administration Dates | Next Due | + + + + | INFLUENZA 63 Y OR >, | 07/20/2017 | | | TRIVALENT HIGH-DOSE | | | + + + + | INFLUENZA PF 63 Y OR | 06/27/2018 | | | >,TRIVALENT (FLUAD) | | | + + + + | INFLUENZA PF | 07/10/2019 | | | QUAD(PED/ADOL/ADULT) | | | | ,PSKT or VIAL | | | + + + + | ZOSTER NON-LIVE | 01/15/2019 | | | (SHINGRIX) | | | + + + + Family History + + +------+ + | Medical History | Relation | Name | Comments | + + +------+ + | COPD | Brother | | | + + +------+ + | Heart [...] accident | + +------+ + + | Brother | | | | + +------+ + [...] | 36.7 C (98.1 F) | 12/25/2018 11:16 AM | | | | | PST [...] | | + + + + + Plan of Treatment [...] Dx); | | | | | [place] [address] | Pacemaker Dual | | | | | [phone] | Chamber, MRI | | | | [...] [place] | | | | | | [address] | | | | | | | | +--------+ + + + + + + + + + | Health Maintenance | Due Date | Last | Comments | | | | Done | | + + + + + | Med Mgmt: Uric Acid | | | | | | 3 | | | + + + + + | Medication | | | | | Management | 3 | | | + + + + + | Vaccine: | | | | | Dtap/Tdap/Td (1 - | 2 | | | | Tdap) | | | | + + + + + | Vaccine: | | | | | Pneumococcal 65+ (1 | 8 | | | | of 1 - PPSV23) | | | | + + + + + | Adult Annual | | | | | Wellness Visit | 5 | | | + + + + + | Med Mgmt: INR | | 05/16/20 | | | | 7 | 17, | | | | | 05/15/20 | | | | | 17, | | | | | 05/12/20 | | | | | 17, | | | | | Addition | | | | | al | | | | | history | | | | | exists | | + + + + + | Vaccine: Zoster (2 | | 01/16/20 | | | of 2) | 9 | 19 | | + + + + + | Vaccine: Influenza | | 07/10/20 | | | (#1) | 0 | 19, | | | | | 06/27/20 | | | | | 18, | | | | | 07/20/20 | | | | | 17 | | + + + + + | Med Mgmt: ALT | | 11/10/19 | | | | 1 | 20, | | | | | 06/04/20 | | | | | 18, | | | | | 04/15/20 | | | | | 18, | | | | | Addition | | | | | al | | | | | history | | | | | exists | | + + + + + | Med Mgmt: AST | | 11/10/19 | | | | 1 | 20, | | | | | 06/04/20 | | | | | 18, | | | | | 04/15/20 | | | | | 18, | | | | | Addition | | | | | al | | | | | history | | | | | exists | | + + + + + | Med Mgmt: Cr | | 11/10/19 | | | | 1 | 20, | | | | | 06/04/20 | | | | | 18, | | | | | 04/15/20 | | | | | 18, | | | | | Addition | | | | | al | | | | | history | | | | | exists | | + + + + + | Med Mgmt: K | | 11/10/19 | | | | 1 | 20, | | | | | 06/04/20 | | | | | 18, | | | | | 04/15/20 | | | | | 18, | | | | | Addition | | | | | al | | | | | history | | | | | exists | | + + + + + | Med Mgmt: Na | | 11/10/19 | | | | 1 | 20, | | | | | 06/04/20 | | | | | 18, | | | | | 04/15/20 | | | | | 18, | | | | | Addition | | | | | al | | | | | history | | | | | exists | | + + + + + | Med Mgmt: ECG | | 01/06/20 | | | | 1 | 20, | | | | | 07/31/20 | | | | | 18, | | | | | 06/04/20 | | | | | 18, | | | | | Addition | | | | | al | | | | | history | | | | | exists | | + + + + + | Med Mgmt: TSH | | 01/07/20 | | | | 1 | 20, | | | | | 06/04/20 | | | | | 18, | | | | | 04/15/20 | | | | | 18, | | | | | Addition | | | | | al | | | | | history | | | | | exists | | + + + + + Implants + +------+-------+ +--------+--------+--------+ | Implanted | Type | Area | Manufacture | Device | Shelf | Model | | | | | r | | Expira | / | | | | | | Identi | tion | Serial | | | | | | fier | Date | / Lot | + +------+-------+ +--------+--------+--------+ | Lead Tendril Mri 52cm - | | N/A: | [facility] | | 06/20/ | [id number] | | [id number]: Qty: 1 | | Heart | MEDICAL - | | 2016 | [id number]/52 | | on 05/14/2017 by Marge, | | | STJU | | | /[id number] | | MD [facility] at [facility] | | | | | | [address] / | | [facility] | | | | | | | + +------+-------+ +--------+--------+--------+ | Lead Tendril Mri 46cm - | | N/A: | [facility] | | 07/20/ | [id number] | | [id number]: Qty: 1 | | Heart | MEDICAL - | | 2016 | 0M/46 | | on 05/14/2017 by Marge, | | | STJU | | | /[id number] | | MD Cruz[facility] at [facility] | | | | | | [id number] / | | [facility] | | | | | | | + +------+-------+ +--------+--------+--------+ | Pacer Assurity Mri Dr Rf - | | N/A: | [facility] | | 08/20/ | [id number] | | [id number]: Qty: 1 on | | Heart | MEDICAL - | | 2017 | | | 05/14/2017 by Marge, | | | CHRISTOPHER | | | /[id number] | | MD Cruzito at [facility] | | | | | | / | | [facility] | | | | | | | + +------+-------+ +--------+--------+--------+ Procedures + +--------+ [...] 3 Months Results Device Interrogation - Remote (04/19/2020 11:59 PM PDT)Only the most recent of 2 results wi thin the time period is included. + + + | Narrative | Performed At | + + + | [facility] | KAREN | | MD Marge 02/11/2020 4:15 PMDate of Remote Interrogation: | | | 01/27/2020 Refer to Paceart documentation and remote PDF scanned into | | | [facility] for remote interrogation results. Data collected [...] | | | + +---------+ + + from Last 3 Months Insurance + +--------+ +--------+ +---------+--------+ | Payer | Benefi | Subscriber | Effect | Phone | Address | Type | | | t Plan | ID | joe | | | | | | / | | Dates | | | | | | Group | | | | | | + +--------+ +--------+ +---------+--------+ | MEDICARE | MEDICA | [id number] | 06/21/19 | [phone] | | Medica | | | RE | | 98-Pre | 5 | | re | | | PART A | | sent | | | | | | AND B | | | | | | + +--------+ +--------+ +---------+--------+ | [employer] | MODA | [id number] | 10/21/19 | [phone] | | Medica | | MEDICAID HMO | HEALTH | | 19-Pre | 1 | | id | | | MDCD | | sent | | | | | | [place]MO [place] | | | | | | + +--------+ +--------+ +---------+--------+ | [employer]MIN | VETERA | [id number] | | | | Indemn | | | NS | | 015-Pr | | | ity | | | ADMIN | | esent | | | | | | [place] | | | | | | | [place] | | | | | | + +--------+ +--------+ +---------+--------+ + +--------+ +--------+ + + | Guarantor Name | Accoun | Relation to | Date | Phone | Billing Address | | | t Type | Patient | of | | | | | | | | | | + +--------+ +--------+ + + | Johnny Siddiqi | Person | Self [birth year] | [address] | | | al/Fam | | 1935 | [phone] | [address] | | | [place] | | | [address] (Home) | [place] [address] | + +--------+ +--------+ + + | Johnny Siddiqi | Specia | Self | [birth year] | | [address] | | | l | | 1935 | [phone] | [address] | | | Servic | | | 7 (Home) | [place] [address] | | | es | | | | | + +--------+ +--------+ + + | Johnny Siddiqi | Person | Self | [birth year] | | [address] | | | al/Fam | | 1935 | [phone] | [address] | | | [place] | | | [address] (Home) | [place] [address] | + +--------+ +--------+ + + Advance Directives + + + + + | Type | Date Recorded | Patient | Explanation | | | | Mold Maker Plaster | | + + + + + | Power of | 05/07/2017 1:18 | | FINANCIAL POWER OF FORMING YARDAGE CONTROL OPERATOR | | Hand Fur Cleaner | PM | | | + + + + + | Advance | 04/01/2015 11:31 | | | | Directive | AM | | | + + + + + + + + + + | Code Status | Date | Date | Comments | | | Activated | Inactivated | | + + + + + | Full Code | 05/08/2017 | 05/16/2017 | | | | 2:11 PM | 5:12 PM | | + + + + + + + + +---+ | | | | | + + + +---+ | Full Code | 05/07/2017 | 05/08/2017 | | | | 5:11 PM | 9:29 AM | | + + + +---+ + +---------+---+ | Orders discussed with: | Patient | | + +---------+---+ + + + +---+ | | | | | + + + +---+ | Full Code | 02/27/2017 | 03/04/2017 | | | | 6:15 PM | 6:47 PM | | + + + +---+ + + + +---+ | | | | | + + + +---+ | Full Code | 03/16/2016 | 03/21/2016 | | | | 12:52 PM | 6:07 PM | | + + + +---+ + + + +---+ | | | | | + + + +---+ | Full Code | 04/01/2015 | 04/04/2015 | | | | 2:18 PM | 1:18 PM | | + + + +---+
--- OUTSIDE RECORDS SUMMARY | ~2020-06-28 | XMS | Encounter Summary ---
Demographics + + + | Address | [address] | | | [place] [address] | + + + | Home Phone [...] Team Providers + +------+ + | Care Mechanical Test Technician Name | Role | Phone | + +------+ + | Antonio Paulino MD | PCP | | + +------+ + Encounter Details +--------+ + + + + | Date | Type | Department | Care Team | Description | +--------+ + + + + | 04/15/ | Orders Only | [facility] | Benjamín Garces, | | | 2017 | | CARDIOLOGY DENI | [address] | | | | | [address] | [place], | | | | | [facility] [place] | [place] [address] | | | | | [address] | [phone] | | | | | [phone] | | | +--------+ + + + [...] Dx); | | | | | [place] [address] | Pacemaker Dual | | | | | [phone] | Chamber, MRI | | | | | | compatible, 05/14/17 | | | | | | [facility]; | | | | | | 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) | +--------+ + + + + | 01/05/ | Office | Cardiology | NeryEmely, | | | 2020 | Visit | | LACQUER COATER [address] | | | | | | [place] | | | | | | [address] | | | | | | | [...]
--- OUTSIDE RECORDS SUMMARY | ~2020-06-28 | XMS | Encounter Summary ---
Demographics + + + | Address | [address] | | | [place] [address] | + + + | Home Phone [...] Team Providers + +------+ + | Care Yield Analyst Name | Role | Phone | + +------+ + PCP | Unavailable | + +------+ + Encounter Details +--------+ + + + + | Date | Type | Department | Care Team | Description | +--------+ + + + + | 12/02/ | Hospital | [facility] | Yordan Candelario, | | | 2012 | Encounter | MED CTR EMERGENCY | [address] | | | | | CENTER [address] | [place] | | | | | [place] | [address] | | | | | [address] | | | | | | [phone] | Raphael Karimi MD | | | | | | [address] | | | | | | [place] | | | | | | [id number] | | | | | | | [...] Raphael Karimi MD - 12/02/2012 5:32 [place] [address] Patient Name: JACKLYN SIDDIQI Provider: Unit #: [id number] Location: [facility] #: [id number] : 1935 DATE: 12/02/2012 CHIEF COMPLAINT: Dizziness [...] sinus bradycardia with a rate of 58, TX of 142, QRS of 130. He has [...] Raphael Karimi M.D. Emergency Medicine JOB #: [id number] EXT JOB #:[id number] <<Signature on File>> Raphael Karimi MD0 12/09/122111 < documented in this encounter Plan of Treatment +--------+ + + + + | Date | Type | Specialty | Care Team | Description | +--------+ + + + + | 07/20/ | Implant | Cardiology | Cruzito Bird, | Remote Device | | 2019 | Monitor | | [facility] | Interrogation | | | | | [facility] 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 | | [ rep ct street[address]] [ rep ct [facility] | | st zip] Signed | - IMAGING | | | | | Patient Name: JACKLYN SIDDIQI Physician: | | | WILBER : 1935 Age: 77 Sex: M Unit #: [id number] | | | Exam Date: 12/02/12 Location: ER | | | Report #: [id number] Page: | | | %(RAD)RES..mtdd.print.filter("pg") of %(RAD) | | | RES..mtdd.print.filter("tpg") | | | | | | Accession Number: [id number] | | | CHEST PORTABLE, 12/03/2012 CLINICAL [...] Transcribed Date/Time: | | | 12/03/2012 09:46 Electric Transfer Operator: | | | <<Signature on File>> | | | Deep | | | MD Jose12/03/12 1410 <Electronically signed by Deep Garcia MD> | | | Deep Garcia MD 12/03/12 0934 Electric Transfer Operator: Johnson | | | Suwgnrwyvznrf51/13/13 0946 Yordan Candelario MD | | | Raphael Karimi MD | | + + + + + + + + | Performing | Address | City/State/Zipcode | Phone Number | | Organization | | | | + + + + + | [facility] | [address] | [place] | [phone] | | [facility] | | [address] | | | - IMAGING | | [...] | | | | | gm/dL | [facility] | | | | [...] + | [facility] | [address] | [place], [place] | [phone] | | [facility] | | [address] | | | - LABORATORY | | | | + + + + + | [facility] | [address] | [place], [place] | | | [facility] | | [address], [facility] | | | - LABORATORY | | [...] + | [facility] | [address] | [place], [place] | [phone] | | [facility] | | [address] | | | - LABORATORY | | | | + + + + + | [facility] | [address] | [place], [place] | | | [facility] | | [address] | | | - LABORATORY | | [...] | performed on the Tete | | [facility] | | | | [facility] | | MEDICAL | | | [...] + | [facility] | [address] | [place] | [phone] | | [facility] | | [address] | | | - LABORATORY | | | | + + + + + | [facility] | [address] | [place], [place] | | | [facility] | | [address] [place] [address] | | | - LABORATORY | | [...] | | GFR | -Americans, | | [facility] | | | | please multiply the [...] 140 | 136 - 149 mEq/L | [facility] | | | | [...] + | [facility] | [address] | [place], [place] | [phone] | | [facility] | | [address] | | | - LABORATORY | | | | + + + + + | [facility] | [address] | [place], [place] | | | [facility] | | [address], [facility] | | | - LABORATORY | | [...] The | | | | | | [employer] | | | | | [...] + | [facility] | [address] | [place], [place] | [phone] | | [facility] | | [address] | | | - LABORATORY | | | | + + + + + | [facility] | [address] | [place] | | | [facility] | | [address] [place] [address] | | | - LABORATORY | | | | + + + + + documented in this encounter Visit Diagnoses Not on filedocumented in this encounter
--- OUTSIDE RECORDS SUMMARY | ~2020-06-28 | XMS | Encounter Summary ---
Demographics + + + | Address | [address] | | | [place] [address] | + + + | Home Phone [...] Team Providers + +------+ + | Care Packing Supervisor Name | Role | Phone | [...] ROBYN LEE | | | | | [place] MD | [place] [address] | | | | | [address] | [phone] | | | | | [phone] | | | +--------+ + + + [...] Dx); | | | | | [place] [address] | Pacemaker Dual | | | | | [phone] | Chamber, MRI | | | | | | compatible, 05/14/17 | | | | | | [facility]; | | | | | | 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) | +--------+ + + + + | 01/05/ | Office | Cardiology | Emely Gabriel, | | | 2020 | Visit | | LEVEL VIAL SETTER [address] [place] | | | | | | [place] | | | | | | [address] | | | | | | | [...] Doppler was | | | perfomed at [facility]. Study: This was a technically | [...] TR Vmax: | | | 2.99 m/s Lube Man: SLAVA Authenticated by: Benjamín Garces | | [...] flow | | Doppler was perfomed at [facility].Study: This was a technically adequate | [...] cmLVPWd: 1.14 | | cmLVOT Area: 3.28 kw6EURA Diam: 2.04 cmLVEF MOD A4C: 58.49 %SV MOD A4C: 62.35 | | mlLVEDV MOD A4C: 106.59 mlLVLd A4C: 8.86 cmLVESV MOD A4C: 44.24 mlLVLs A4C: 7.68 | | cmLAESV(A-L): 68.77 mlLAESV Index (A-L): 34.73 ml/m2LAAs A2C: 21.27 fu4MNOGL A-L | | A2C: 73.45 mlLALs A2C: 5.23 cmLAAs A4C: 19.91 nc3LUCMO A-L A4C: 57.38 mlLALs | | A4C: 5.86 cmRAAs: 19.51 mx2LTGGQ A-L: 66.78 mlRAESV MOD: 62.08 mlRALs: 4.84 | | cmAV maxP.28 mmHgAV meanP.19 mmHgAV Vmax: 1.82 m/Willie Vmean: 1.14 m/Willie | | VTI: 37.18 cmAVA Vmax: 2.10 cm2AVA (VTI): 2.06 fo0VSHZ Vmax: 0.00 cm2/m2AVAI | | (VTI): 0.00 cm2/m2LVOT maxP.43 mmHgLVOT meanP.09 mmHgLVSI Dopp: 38.79 | | ml/m2LVSV Dopp: 76.82 mlLVOT Vmax: 1.16 m/sLVOT Vmean: 0.65 m/sLVOT VTI: 23.36 | | cmMV A Kings: 0.74 m/sMV DecT: 173.87 msMV E Kings: 1.20 m/sMV E/A Ratio: 1.62MV | | PHT: 50.42 msMVA By PHT: 4.36 ja4Refgku e': 0.03 m/sSeptal E/e': 36.80Lateral | | e': 0.06 m/sLateral E/e': 17.61RAP: 5 mmHgRVSP: 40.93 mmHgTR maxP.93 | | mmHgTR Vmax: 2.99 m/s Lube Man: DHAuthenticated by: Benjamín Rosa | | Date/Time: [...] |TR Vmax: 2.99 m/s | | | |Lube Man: | |Authenticated by: Benjamín Garces | |Report [...]
--- OUTSIDE RECORDS SUMMARY | ~2020-06-28 | XMS | Encounter Summary ---
Demographics + + + | Address | [address] | | | [place] [address] | + + + | Home Phone [...] + + + | Author | [facility] | | | and [place] | + + + | Organization | [facility] | | [...] Team Providers + +------+ + | Care Tenter Feeder Name | Role | Phone | + [...] + + | 06/04/ | [facility] | Emely Gabriel, | Tachycardia-bradycar | | 2017 | Visit | CARDIOLOGY [address] | LITHOGRAPH PRESS FEEDER [address] | pablo syndrome (HCC) | | | | [place], | [place], [place] | (Primary Dx); | | | | [place] [address] | [address] | Coronary artery | | | | [phone] | | disease involving | | | | | | capitan grande coronary | | | | | | artery of capitan grande | | | | | | [...] Marge; | | | | | | prison current | | | | | | [...] + | Blood Pressure | 100/64 | 06/04/2018 8:12 AM | | | | | PDT | | + + + + + | Pulse | 62 | 06/04/2018 8:12 AM | regular | | | | PDT | | + + + + + | Temperature | - | - | | + + + + + | Respiratory Rate | 20 | 06/04/2018 8:12 AM | | | | | PDT | | + + + + + | Oxygen Saturation | - | - | | + + + + + | Inhaled Oxygen | - | - | | | Concentration | | | | + + + + + | Weight | 88.5 kg (195 lb 1.7 | 06/04/2018 8:12 AM | | | | oz) | PDT | | + + + + + | Height | 167.6 cm (5' 6") | 06/04/2018 8:12 AM | | | | | PDT | | + + + + + | Body Mass Index | 31.49 | 06/04/2018 8:12 AM | | | | | PDT [...] of this encounter Patient Instructions Patient Instructions Emely Gabriel ARNP - 06/04/2018 8:15 AM PDT 1. Take the blue slip down to have your blood drawn. 2. Go to the admitting and check in to go have your chest xray done. 3. We will schedule you for pulmonary function tests, either at [place], or here if the y can't do the correct test. 4. Continue with your home pacemaker monitoring with [employer]. 5. Return in 1 year for office visit and device interrogation, or sooner with concerns.Elec tronically signed by AMANDA Hurtado at 06/04/2018 9:08 AM PDT documented in this encounter Progress Notes Emely Gabriel ARNP - 06/04/2018 8:15 AM PDTFormatting of this note might be [...] regimen. He would continue with his [employer] remote device monitoring. Since that time, he was at [facility] ER for dehydration and so he has been careful to drink Gatorade, Essentia wate r and milk to stay hydrated ever since then. He has had a fair energy level. He tries to stay active. He enjoys shopping in his spare ti [employer]. 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 LAB RESULTS reviewed during visit today primarily from [facility]: LIPID No results found for: CHOL, [...] as well as emergency department visit [facility]. DEVICE INTERROGATION Device interrogation is ordered and performed during this visit. Refer to scanned [employer] documentation and device PDF in [employer] for interrogation (with programming changes) performed during [...] health until 05/07/17 when he was admitted aft er he [...] Y.O.(2) and Vascula r disease (1). His GIP5OE1-CVLr score is 4, which gives an estimated [...] He is in class II of the [place] [employer] functional class. 4. 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 [facility] [...] 3. He will continue with his [employer] remote device monitoring. 4. He will follow up in 1 year for office visit and device interrogation, or sooner with co madinaercelestino. Electronically signed by: AMANDA Hurtado Barbara Rennaker, MA-R, am acting as a scribe on behalf of, and in the presence of AMANDA Hurtado. - CHUCK El 06/04/2018 8:16 I, AMANDA Hurtado, personally performed the services described in this documentation, as scribed in my presence and it is both accurate and complete. AMANDA Hurtdao 8 Portions of this chart may have been created with [employer] voice recognition software. Occasi onal wrong-word or sound-alike substitutions may have occurred due to the inherent carter itations of voice recognition software. Please read the chart carefully and recognize, using context, where these substitutions have occurred. documented in this encounter Procedure Notes Emely Gabriel ARNP - 06/04/2018 8:15 AM PDTAssociated Order(s): DEVICE INTERROGATIONProc edure(s): DEVICE INTERROGATIONPre-Procedure Diagnose(s): Tachycardia-bradycardia syndrome (H CC); Pacemaker reprogramming/check; Pacemaker PATIENT NAME: Johnny Siddiqi : 1935: AGE: 82 y.o. Device In-office Evaluation Report 06/04/2018 Reason for evaluation: routine Indication for device: ICD-10-CM ICD-9-CM 1. Tachycardia-bradycardia syndrome (HCC) I49.5 427.81 Device Interrogation Comprehensive Metabolic Panel Lipid Panel CBC no Differential T4, Free TSH XR Chest PA and Lateral Pulmonary function test Comprehensive Metabolic Panel Lipid Panel CBC no Differential T4, Free TSH 2. 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 Essential hypertension I10 401.9 Comprehensive Metabolic Panel Lipid Panel CBC no Differential T4, Free TSH XR Chest PA and Lateral Pulmonary function test Comprehensive Metabolic Panel Lipid Panel CBC no Differential T4, Free TSH 4. Chronic diastolic congestive heart failure (HCC) I50.32 428.32 Comprehensive Metabolic P ne 428.0 Lipid Panel CBC no Differential T4, Free TSH XR Chest PA and Lateral Pulmonary function test Comprehensive Metabolic Panel Lipid Panel CBC no Differential T4, Free TSH 5. Persistent atrial fibrillation (HCC) I48.1 427.31 Comprehensive Metabolic Panel Lipid Panel CBC no Differential T4, Free TSH XR Chest PA and Lateral Pulmonary function test Comprehensive Metabolic Panel Lipid Panel CBC no Differential T4, Free TSH 6. Pacemaker reprogramming/check Z45.018 V53.31 Device Interrogation Comprehensive Metabolic Panel Lipid Panel CBC no Differential T4, Free TSH XR Chest PA and Lateral Pulmonary function test Comprehensive Metabolic Panel Lipid Panel CBC no Differential T4, Free TSH 7. Pacemaker Dual Chamber, MRI compatible, 05/14/17 [facility] Z95.0 V45.01 Device In [facility] Comprehensive Metabolic Panel Lipid Panel CBC no Differential T4, Free TSH XR Chest PA and Lateral Pulmonary function test Comprehensive Metabolic Panel Lipid Panel CBC no Differential T4, Free TSH 8. prison current use of amiodarone Z79.899 V58.69 XR Chest PA and Lateral Pulmonary function test Patient was seated and device was interrogated [...] adequate safety margins. Summary of findings: Events: 1 PMT on 05/25/18 interrupted appropriately [...] Electronically si gned by AMANDA Hurtado at 06/04/2018 3:12 PM PDTdocumented in this encounter Plan of [...] Dx); | | | | | [place] [id number] | Pacemaker Dual | | | | | [phone] | Chamber, MRI | | | | | | compatible, 05/14/17 | | | | | | [facility]; | | | | | | 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) | +--------+ + + + + | 01/05/ | Office | Cardiology | Emely Gabriel, | | | 2020 | Visit | | [address] [address] [place] | | | | | | [place], [place] | | | | | | [address] | | | | | | | [...] for this | | | e | 9:26 AM | disease involving | procedure are in the | | | | PDT | capitan grande coronary | results section. | | | | | artery of capitan grande | | | | | | heart without angina | | | | | | pectoris | | | | | | Tachycardia-bradycar | | | | | | pbalo syndrome (HCC) | | | | | [...] for this | | | e | 9:26 AM | disease involving | procedure are in the | | | | PDT | capitan grande coronary | results section. | | | | | artery of capitan grande | | | | | | [...] for this | | | e | 9:26 AM | disease involving | procedure are in the | | | | PDT | capitan grande coronary | results section. | | | | | artery of capitan grande | | | | | | [...] for this | | | e | 9:25 AM | disease involving | procedure are in the | | | | PDT | capitan grande coronary | results section. | | | | | artery of capitan grande | | | | | | [...] | | METABOLIC PANEL | e | 9:25 AM | disease involving | procedure are in the | | | | PDT | capitan grande coronary | results section. | | | | | artery of capitan grande | | | | | | [...] for this | | | e | 8:31 AM | disease involving | procedure are in the | | | | PDT | capitan grande coronary | results section. | | | | | artery of capitan grande | | | | | | heart without angina | | | | | | pectoris | | + +--------+ + + + | DEVICE INTERROGATION | Routin | 06/04/2018 | | Results for this | | | e | 12:00 AM | Tachycardia-bradycar | procedure are in the | | | | PDT | pablo syndrome ([facility]) | results section. | | | [...] | | | PDT | pablo syndrome ([facility]) | results section. 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 No prior pulmonary function tests available for | | |comparison. | | | | | | | | |Test performed: 06/26/18 | | |Electronically signed by: Antonio Hartman MD 06/27/2018 11:09 | | |[facility] | | + + + XR Chest PA and Lateral (06/04/2018 9:59 [...] | + +---------+ + + TSH (06/04/2018 9:26 AM PDT) + + + + + + | Component | Value | Ref Range | Performed | Pathologist | | | | | At | Signature | + + + + + + | TSH | 11.40 (H)Comment: This | 0.45 - 5.33 | [facility] | | | | is a third generation | uIU/mL | [facility] | | | | TSH test. | | MEDICAL | | | | [...] + | [facility] | [address] | [place] | [phone] | | [facility] | | [address] | | | - LABORATORY | | | | + + + + + T4, Free (06/04/2018 9:26 AM PDT) + +-------+ + + + | Component | Value | Ref Range | Performed | Pathologist | | | | | At | Signature | + +-------+ + + + | FT4 | 1.0 | 0.6 - 1.1 ng/dL | [facility] | | | | | [...] + | [facility] | [address] | [place] | [phone] | | [facility] | | [address] | | | - LABORATORY | | | | + + + + + CBC no Differential (06/04/2018 9:26 AM PDT) + + + + + [...] + + + | Red Blood | 3.76 (L) | 4.30 - 5.70 | [facility] [...] + + + + | Hematocrit | 34.7 (L) | 40.0 - 51.0 [...] 16.0 (H) | <15.0 % | [facility] | [...] [address] | [place] | [phone] | | [facility] | | [address] | | | - LABORATORY | | | | + + + + + Lipid Panel (06/04/2018 9:25 AM PDT) + + + + + + | Component | Value | Ref Range | Performed | Pathologist | | | | | At | Signature | + + + + + + | Triglycerid | 76 | 35 - 160 mg/dL | [facility] | | | es | | | [facility] | | | | | | MEDICAL | | | | | | CENTER - | | | | | | LABORATORY | | + + + + + + | Cholesterol | 122 (L) | 150 - 200 mg/dL | [facility] | | | | | | [facility] | | | | | | MEDICAL | | | | | | CENTER - | | | | | | LABORATORY | | + + + + + + | HDL | 48Comment: New HDL | 28 - 83 mg/dL | [facility] | | | | Reference Range as of | | [facility] | | | | June 30, 2015 | | MEDICAL | | | | Values may be 10-20% | | CENTER - | | | | lower with new, | | LABORATORY | | | | standardized method. | | | | + + + + + + | Chol/HDL | 2.5 | | [facility] | | | Ratio | | | [facility] | | | | | | MEDICAL | | | | | | CENTER - | | | | | | LABORATORY | | + + + + + + | LDL, | 59 | <=130 mg/dL | [facility] | | | Calculated | | | [facility] | | [...] [address] | [place] | [phone] | | [facility] | | [address] | | | - LABORATORY | | | | + + + + + Comprehensive Metabolic Panel (06/04/2018 9:25 AM PDT) + + + + + [...] + + + + | Glucose | 94 | 70 - 109 mg/dL [...] + + + + | Creatinine | 1.41 (H) | 0.60 - 1.30 | [facility] [...] | mL/min/1.73m2 | [facility] | | | Gabonese | RATE,ESTIMATED | | MEDICAL | | | | mL/min/1.92k7Taga than | | CENTER - | | [...] + + + + | Total | 6.7 | 6.0 - 7.8 g/dL [...] + + + + | Alkaline | 101 | 40 - 110 U/L [...] + + + + | BUN/Creatin | 15.6 | | [facility] | | | ine [...] [address] | [place] | [phone] | | [facility] | | [address] | | | - LABORATORY | | | | + + + + + ECG 12 lead (06/04/2018 8:31 AM PDT) + + + + + + | Component | Value | Ref Range | Performed | Pathologist | | | | | At | Signature | + + + + + + | VENTRICULAR | 67 | BPM | [facility] | | | RATE EKG | | | | | + + + + + + | ATRIAL RATE | 441 | BPM | [facility] | | + + + + + + | P-R | 262 | ms | [facility] | | | INTERVAL | | | | | + + + + + + | QRS | 150 | ms | [facility] | | | DURATION | | | | | + + + + + + | Q-T | 458 | ms | [facility] | | | INTERVAL | | | | | + + + + + + | Q-T | 483 | ms | [facility] | | | INTERVAL | | | | | | (CORRECTED) | | | | | + + + + + + | QRS AXIS | -31 | degrees | [facility] | | + + + + + + | T AXIS | 138 | degrees | [facility] | | [...] of 19-JUN-2017 | | | | | | 10:17,T wave inversion | | | | | | more evident in Lateral | | | | | | leadsConfirmed by | | | | | | BASIA BIRD MD | | | | | | ([id number]) on 06/05/2018 | | | | | | 3:24:05 PM | | | | + + [...] | + +---------+ + + Device Interrogation (06/04/2018 12:00 AM PDT) + + + | Narrative | Performed At | + + + | Emely Gabriel, | [facility] | | LITHOGRAPH PRESS FEEDER 06/04/2018 15:12 PATIENT NAME: Johnny Siddiqi : [...] | | | Coronary artery disease involving capitan grande coronary artery of capitan grande | | | heart without angina pectoris [...] | | | diastolic congestive heart failure ([facility]) I50.32 428.32 Comprehensive | | | Metabolic Panel 428.0 Lipid Panel CBC no Differential T4, | | | Free TSH XR Chest PA and Lateral Pulmonary function test | | | Comprehensive Metabolic Panel Lipid Panel CBC no | | | Differential T4, Free TSH 5. Persistent atrial fibrillation | | | ([facility]) I48.1 427.31 Comprehensive Metabolic Panel Lipid Panel [...] CBC no Differential T4, Free TSH 8. prison | | | current use of amiodarone [...] MRI compatible, 05/14/17 [facility] | | [facility]45.01 Device Interrogation | | | [...] | | | TSH | | |8. hamper maker machine current use of amiodarone Z79.899 V58.69 XR [...] | | 2. Coronary artery disease involving capitan grande coronary artery of capitan grande heart without | | angina pectoris I25.10 [...] CBC no Differential T4, Free TSH 8. prison current use of amiodarone Z79.899 | | [...] T4, Free | | TSH | |8. prison current use of amiodarone Z79.899 V58.69 XR [...] + + | Coronary artery disease involving capitan grande coronary artery of capitan grande heart without | | angina pectoris | + + | Essential hypertension Unspecified [...] | in situ | + + | hamper maker machine current use of amiodarone | + + | Remote Device Interrogation - Primary Fitting and adjustment of cardiac pacemaker | + + | Pacemaker Dual Chamber, MRI compatible, 05/14/17 [facility] Cardiac pacemaker | | in situ | + + | 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
--- OUTSIDE RECORDS SUMMARY | ~2020-06-28 | XMS | Encounter Summary ---
Demographics + + + | Address | [address] | | | [place] [address] | + + + | Home Phone [...] Team Providers + +------+ + | Care Foreign Banknote Teller Name | Role | Phone | + [...] + + | 05/08/ | Surgery | [facility] | Peter Maciel MD | EGD with Anesthesia | | 2017 | | MED CTR MP INTRA OP | [address] | | | | | [address] | [place], [place] | | | | | [place], [place] | [address] | | | | | [address] | [phone] | | | | | [phone] | | | +--------+---------+ + + + [...] Physician Discharge Summary Patient ID: Jacklyn Siddiqi [id number] 81 y.o. 1935 Admit date: 05/07/2017 Discharge [...] significantly so this was dis continued. The display designer recommended putting in a permanent pacemaker and [...] normal Psychiatric: Appropriate affect and mood Disposition: [facility] Patient Instructions: Discharge Medications New Medications Details [...] Care Everywhere.Pacemaker Impla ntation, Discharge Instructions for (Kazakh)documented in this encounter Medications at Time of [...] Philippe MD - 06/04/2017 8:18 PM PDT [facility] HOSPITALIST PROGRESS NOTE Patient: Jacklyn Siddiqi : 1935: Age: 81 y.o. MedRec: [id number] PCP: Antonio Paulino MD Admission date: 05/07/2017 [...] as outlined above. Yodit Philippe 06/04/2017 20:18 [facility] Shawn Lewis, [facility] Manager Cancer - 05/16/2017 9:29 AM PDTFormatting of this [...] am: INR 4. Warfarin education received NO- captain/check airman. 5. Pharmacist to follow daily Warfarin Dosing Nomogram Warfarin Dosing Expectations Per P&T-approved Electronically signed by: Shawn Mercedes, Legal Arbitrator 05/16/2017 9:29 Michael Giang MD - 05/16/2017 [...] Min: 88 % Max: 98 % 05/14 1901 - 05/16 0700 In: 590 [P.O.:590] Out: [...] He is in a class IIo f Gates Heart [employer] functional class. There is mild [...] made to ensure accuracy; however, inadvertent computerized lube man errors may be pre sent. Electronically signed by: Cruzito Bird MD 05/16/2017 7:18 Susan Diaz MD - 05/15/2017 7:43 PM PDT [facility] HOSPITALIST PROGRESS NOTE Patient: Jacklyn Siddiqi : 1935: Age: 81 y.o. MedRec: [id number] PCP: Antonio Paulino MD Admission date: 05/07/2017 [...] ou tlined above. Susan Vides 05/15/2017 19:43 [facility] Jessica Rivas, PharmD - 05/15/2017 7:41 AM [...] am: INR 4. Warfarin education received NO- captain/check airman. 5. Pharmacist to follow daily Warfarin Dosing [...] DOPamine Stopped (05/12/17 0745) norepinephrine Stopped (05/11/17 7565) OBJECTIVE: PHYSICAL EXAM Latest VS: BP 135/43 [...] Sinus rhythm Confirmed by BINU MACK MD ([id number]) on 05/15/2017 5:56:04 AM ECG 12 lead [...] Sinus rhythm Confirmed by BINU MACK MD ([id number]) on 05/15/2017 5:57:23 AM CBC no Differential [...] was found to be anemic so original ou ght was that he had GI bleeding [...] He is in a class IIo f Gates Heart Association functional class. There is mild [...] made to ensure accuracy; however, inadvertent computerized lube man errors may be pre sent. Electronically signed by: Cruzito Bird MD 05/15/2017 6:36 Susan Diaz MD - 05/14/2017 8:48 PM PDT [facility] HOSPITALIST PROGRESS NOTE Patient: Jacklyn Siddiqi : 1935: Age: 81 y.o. MedRec: [id number] PCP: Antonio Paulino MD Admission date: 05/07/2017 [...] will be started back on warfarin today. Dayrob aidan will dose. We'll continue to monitor [...] ou tlined above. Susan Vides 05/14/2017 20:48 [facility] Jessica Rivas, PharmD - 05/14/2017 4:08 PM [...] am: INR 4. Warfarin education received NO- captain/check airman. 5. Pharmacist to follow daily Warfarin Dosing [...] DOPamine Stopped (05/12/17 0745) norepinephrine Stopped (05/11/17 5588) sodium chloride 0.9% 125 mL/hr at 05/14/17 [...] treatment were discussed with the [facility]. The patient decides to proceed with the procedure. 2. Resume Coumadin after procedure today. 3. Start amiodarone oral loading today to treat A. fib with RVR. Portions of this report were transcribed using voice recognition software. Every effort wa s made to ensure accuracy; however, inadvertent computerized lube man errors may be pre sent. Electronically signed by: Cruzito Bird MD 05/14/2017 6:25 row, Yodit Ramsay MD - 05/13/2017 7:23 AM PDTForm atting of this note might be different from the original. [facility] HOSPITALIST PROGRESS NOTE Patient: Jacklyn Siddiqi : 1935: Age: 81 y.o. MedRec: [id number] PCP: Antonio Paulino MD Admission date: 05/07/2017 [...] has lengthened Confirmed by FREDERICK CHARLTON, BINU ([id number]) on 05/13/2017 6:24:02 AM Culture, Blood Result [...] arthroplasty changes. Multiple lead wires overlie the [id number]-qg-txxt. Overall unchanged aeration of the lungs with [...] was tested (positive) at the [facility], w as provided with CPAP, slept [...] awake and requires oxygen when a sleep. B-MACHINE SHOP INSPECTOR 488 on arrival. Echo 02/2017 showed EF [...] Pulmonary HTN Mild to severe by echo 4090-7444. Never smoked tobacco and no documente d [...] associated falls, on e occurring at the [facility] the day of admission and one [...] as outlined above. Yodit Philippe 05/13/2017 7:23 [facility] row, Yodit Ramsay MD - 0 05/12/2017 10:27 AM PDT [facility] HOSPITALIST PROGRESS NOTE Patient: Jacklyn Siddiqi : 1935: Age: 81 y.o. MedRec: [id number] PCP: Antonio Paulino MD Admission date: 05/07/2017 [...] arthroplasty changes. Multiple lead wires overlie the hucsj-lj-gilh. Overall unchanged aeration of the lungs with [...] as outlined above. Yodit Philippe 05/12/2017 10:27 [facility] row, Yodit Ramsay MD - 0 05/11/2017 2:21 PM PDT [facility] HOSPITALIST PROGRESS NOTE Patient: Jacklyn Siddiqi : 1935: Age: 81 y.o. MedRec: [id number] PCP: Antonio Paulino MD Admission date: 05/07/2017 [...] with rate 70-80 on dopamine 5 mcg/min. Union systolic valve cli ck at [facility]SB. Respiratory: [...] arthroplasty changes. Multiple lead wires overlie the jqeca-xu-nqwy. Overall unchanged aeration of the lungs with [...] as outlined above. Yodit Philippe 05/11/2017 14:21 [facility] cCondarius, Rob Zacarias N - 05/10/2017 7:34 PM [...] Whitney Correa RN at 05/10/2017 7:43 PM PDTCrradha, Yodit Ramsay MD - 05/10/2017 7:03 PM PDT HOSPITALIST progress NOTE [facility] Donita Duckworht 05/10/2017 Rounding Physician: Yodit Philippe MD Patient Name: Jacklyn Siddiqi : 1935 Medical Record: [id number] Primary Hospital Problem: Atrial fibrillation with RVR [...] made to ensure accuracy; however, inadvertent computerized lube man errors and typos m ay be present Electronically signed by: Yodit Philippe MD, DATE/TIME: 05/10/2017 19:03 [facility] HOSPITALIST TEAM arTania walton RN - 05/10/2017 4:33 PM PDTReport to Whitney, Patient in bed resting. ose Martin, Yodit Ramsay MD - 05/10/2017 3:59 PM PDTForma tting of this note might be different from the original. [facility] HOSPITALIST PROGRESS NOTE Patient: Jacklyn Siddiqi : 1935: Age: 81 y.o. MedRec: [id number] PCP: Antonio Paulino MD Admission date: 05/07/2017 [...] Atrial fibrillation Confirmed by BINU MACK MD ([id number]) on 05/10/2017 5:50:22 AM No results found. [...] as outlined above. Yodit Philippe 05/10/2017 15:59 [facility] Tania House RN - 05/10/2017 2:15 [...] to commode and one pers on assist. pvc monitor shows Sinus Tach with BBB. Patient on RA with sats 100%Electroni cece signed by Tania Cervantes RN at 05/10/2017 12:54 PM ELSYCrradha, Yodit Ramsay MD - 05/09/2017 8:11 PM PDT [facility] HOSPITALIST PROGRESS NOTE Patient: Jacklyn Siddiqi : 1935: Age: 81 y.o. MedRec: [id number] PCP: Antonio Paulino MD Admission date: 05/07/2017 Hospital day # : 9 Physician author: Yodit Philippe MD Today: 06/04/2017 SUBJECTIVE: No chest pain. Short of breath at rest and with exertion but only mildly so. Patient is c oncerned about continuing the care the OR has provided for his legs (lymphedema compression [...] as outlined above. Yodit Philippe 06/04/2017 20:12 [facility] Nancy Perales RN - 0 05/09/2017 1:59 PM PDTEvaluated pt for PICC line, upon review of chart placed midline 4 fren ch in left cephalic. Pt Needing IV access for blood draw and occasional IVP medication.Barbara ctronically signed by Nancy Arechiga RN at 05/09/2017 2:01 PM PDTCrow, Yodit Ramsay MD - 05/08 8:15 PM PDT [facility] HOSPITALIST PROGRESS NOTE Patient: Jacklyn Siddiqi : 1935: Age: 81 y.o. MedRec: [id number] PCP: Antonio Paulino MD Admission date: 05/07/2017 [...] as outlined above. Yodit Philippe 06/04/2017 20:15 [facility] Mary Vargas RN - 05/08/2017 2:57 [...] and RT notified. O2 2 L via MACHINE SHOP INSPECTOR applied. O2 sat increased to 91%. Maintained [...] direction x MAR from SNF facility: [facility] Vaccines up to date? Yes No Unsure [...] performed and electronically signed by Isa Kaufman, It Specialist 16:14 Reviewed by: Dolly Rizzo, PharmD 05/07/2017 [...] remove, d/t just being placed today at OR, son r corinna pt does have open [...] MD - 05/07/2017 2:14 PM PDT [facility] HISTORY AND PHYSICAL Pt. [...] convenience store. Usually receives care at the OR or nearer his home. He resides in [...] ulcers. He has a nonhealing ulcer [facility] forehead that he is told is cancer. [...] cirrhosis (HCC) 2003 CT scan 2003 at [facility] CAD (coronary artery disease) 2004 Had CABG to LAD (for 80-90% LAD) surgery done at [facility] CVA (cerebral infarction) -2014 lacunar (not stated as new nor old) Dementia Diastolic CHF (HCC) Echo 2013 EF 68, ascites, pulm HTN Endocarditis 2009 Enterococcus 6 weeks Amp + Gent H/O aortic valve replacement 2004 [facility] [place]pert AVR INR goal is 2-3, surgery done at [facility] Hypertension Liver cirrhosis (HCC) Over-anticoagulated 04/01/2015 [...] signed by: Yodit Philippe MD 05/07/2017 14:14 [facility] documented in this enc ounter Procedure [...] obtained, the patient was taken to the lab support service tech. 1 g of cefaz jamel was [...] pulled through into the pocket. A 6 Kazakh sheath was p laced over the guidewire and the core was removed. The additional guidewires were inserted through the sheath. The sheath was then removed. The guidewires were secured by hemostat, leaving one guidewire to be utilized for placement of an 8 Kazakh safe sheath. A safe sheat h core [...] same technique as mentioned above, another 8 Kazakh safe sheath was utilized to i ntroduce [...] #: LPA 1200 M, serial #: [id number]. C. Ventricular lead: [place], length 52 cm, model #: LPA 1200M, serial #: [id number]. PACEMAKER TESTING: A. Atrial lead: Sensing 2.4 [...] obstructive sleep apnea. He was admitted to [facility] on 05/07/2017 for Atrial fibrillation with RVR [...] cirrhosis (HCC) 2003 CT scan 2003 at [facility] CAD (coronary artery disease) 2004 Had CABG to LAD (for 80-90% LAD) surgery done at [facility] CVA (cerebral infarction) -2014 lacunar (not stated as new nor old) Dementia Diastolic CHF (HCC) Echo 2013 EF 68, ascites, pulm HTN Endocarditis 2009 Enterococcus 6 weeks Amp + Gent H/O aortic valve replacement 2004 [facility] [place] AVR INR goal is 2-3, surgery done at [facility] Hypertension Liver cirrhosis (HCC) Over-anticoagulated 04/01/2015 [...] with Anesthesia; Surgeon: Peter Maciel MD; Location: [facility] FAMILY HISTORY [...] DOPamine Stopped (05/12/17 0745) norepinephrine Stopped (05/11/17 1735) ALLERGIES Allergies Allergen Reactions Latex Rash REVIEW [...] has lengthened Confirmed by FREDERICK CHARLTON, BINU ([id number]) on 05/13/2017 6:24:02 AM Culture, Blood Collection [...] He is in a class II of Gates Heart Association functional class. There is fluid [...] patient. Electronically signed by: Cruzito Bird MD [facility] 05/13/2017 7:03 Portions of this chart may have been created with GoChongo voice recognition software. Occasi onal wrong-word or sound-alike substitutions may have occurred due to the inherent carter itations of voice recognition software. Please read the chart carefully and recognize, using context, where these substitutions have occurred. Amelie Alvarez RN - 05/08/2017 11:53 AM PDTAssociated O rder(s): IP CONSULT TO WOUND OSTOMY NURSEJosefina Siddiqi is a [facility] patient who is seen at the [facility] routinely, that has the Coban 2 placed every /Sat which were just placed yesterday . Per the patient he has two ulcerations to the left LE POA. His son and him do not want the wraps removed until SaturdayMay 10 please. OT and Nursing to document wound/ulcers at that session. Have requested OR medical records as well to have in the paper chart. Amelie Pack RN [facility] Inpatient Wound [facility] Ext [phone] docume nted in this encounter ED Notes [...] cirrhosis (HCC) 2003 CT scan 2004 at [facility] CAD (coronary artery disease) 2004 Had CABG to LAD (for 80-90% LAD) surgery done at [facility] CVA (cerebral infarction) -2014 lacunar (not stated as new nor old) Dementia Diastolic CHF (HCC) Echo 2014 EF 68, ascites, pulm HTN Endocarditis 2009 Enterococcus 6 weeks Amp + Gent H/O aortic valve replacement 2004 [facility] Rupert AVR INR goal is 2-3, surgery done at [facility] Hypertension Liver cirrhosis (HCC) Over-anticoagulated 04/01/2015 [...] UA, POC Negative Negative, 100 mg/dL Specific [place], UA, POC 1.025 1.001 - 1.030 Blood, [...] MD Consultants: Dr Nettles PCP: Antonio Paulino [facility] transferring to: [facility] Provider after transfer: CODE STATUS: [x] Attempt CPR [] Do not resuscitate If patient is pulseless and not breathing, RN/WELCOME CENTER AGENT may pronounce . Advanced Directives included: [] [...] Chamber, MRI compatible, 05/14/17 [facility] [place] Bird Allergies Allergen Reactions Latex Rash Diet: [x] As tolerated BROADCASTING EQUIPMENT MECHANIC may upgrade or downgrade diet as condition [...] Whole [] Thin Liquids [] Cut-up [] [place] Thick [] Advanced Chopped [] Honey Thickened [] Chopped [] Advanced Ground [] 1:1 feedings [] Ground/Pureed [] Other: Tube Feedings: [] PEG [] GT [] JT [] NGT [] Formula type: (Heating Equipment Installer may change/substitute if indicated). [] Continuous Rate: [...] & Management for: restrict ed limb [] BROADCASTING EQUIPMENT MECHANIC Evaluation &Management for: [] Other: Wound/Skin Care: [...] Susan SAWYER MD, certify that post hospital [facility] care is medically nece ssary on a continuing basis for any of the conditions for which he/she received care during this hospitalization. Check one: [x] Skilled [] Intermediate Additional Orders/Instructions Physician's signature: Susan Jarvis MD05/16/2017 14:20 [facility] USE ONLY: [] Admitting [...] Therapy Discharge Recommendations are: Recommended discharge disposition: [facility] facility Post discharge physical therapy recommendation: will [...] for assist for safety Bed-Chair, Level of Rogers: contact guard assist, set up required, verbal cues requir ed Chair-Bed, Level of Rogers: contact guard assist, set up required, verbal cues requir ed Pna-Grfys-Bwe, Assistive Device: 2 wheeled walker (FWW) Sit-Stand, Level of Rogers: contact guard assist, verbal cues required Stand-Sit, Level of Rogers: contact guard assist, verbal cues required Rlz-Wtoyy-Yis, Assistive Device: 2 wheeled walker (FWW) Safety Issues: weight-shifting ability decreased Impairments: pain, strength decreased Bed Mobility increased time and need for frequent redirection Assistive Device: bed rails Supine to Sit, Level of Rogers: contact guard assist Sit to Supine, Level of Rogers: (NT, pt left sitting in bedside chair) [...] STG Status continued at 05/16/2017 1155 STG Rogers Level modified independent, supervised at 05/09/2017 1700 STG Assistive Device 2 wheeled walker (FWW) at 05/09/2017 1700 STG Distance (feet) 50 at 05/09/2017 1700 Electronically signed by: Velia Gerard, PT, 05/16/2017 11:59 lan of Reena - Ana Villeda i, RN - 05/16/2017 10:32 AM PDTProblem: Discharge Planning Goal: Patient will be discharged in a safe manner Outcome: Improving This CM spoke with Elkin at [facility] this AM and she is ready to accept patient when he is medically stable and will arrange transport there for patient. She confirmed yahaira t they also have OT there to do his leg wraps. Efaxed the MD prog notes, PT OT notes, and med list to her. TN# [id number]. Manually faxed the completed PASRR to SNF. Pkt started and placed in ghost chart. Electronically signed by: Ana Dietrich RN 05/16/2017 10:27 11:14 Left message with Elkin, at [facility], letting her know that patient will be d ischarged today and would be ready this afternoon sometime. Requested a return call with pic k up time. Elkin returned call with 1430 picker / packer time. Let bedside RN know. Left message with Jacklyn , letting him know that his dad will be taken to the SNF today. Pkt completed with original completed PASRR, AVS, and Trazadone script. Given to six horse hitch driver. Fa xed SNF transfer orders to [facility] with call to Elkin.Electronically signed by: Sangita Dietrich RN 05/16/2017 15:08 lan of Reena - Aodnis Childers RRT - 05/16/2017 5:54 AM PDTProblem: [...] son, Jacklyn Joiner, today. Kelly from the [facility], p# , faxed the paperwork to [...] afternoon and let him know that the [facility] would only be a short term rehab not half-way stay and that he would have to pay for the transpor t there, since he is non-service connected, per SAMEER [place], whom this CM called to confirm this above information. Jacklyn Joiner stated that his father will not go back to [facility], so reassured him yahaira t the planner scheduler at [facility] would help find a longwall shearer operator place for him since he will [...] Therapy Discharge Recommendations are: Recommended discharge disposition: [facility] facility Post discharge physical therapy recommendation: will [...] and attending to task Bed-Chair, Level of Rogers: contact guard assist, set up required, verbal cues requir ed Chair-Bed, Level of Rogers: contact guard assist, set up required, verbal cues requir ed Twt-Yknav-Oxd, Assistive Device: 2 wheeled walker (FWW) Sit-Stand, Level of Rogers: contact guard assist, verbal cues required Stand-Sit, Level of Rogers: contact guard assist, verbal cues required Rxc-Ahcmh-Qyb, Assistive Device: 2 wheeled walker (FWW) Safety Issues: weight-shifting ability decreased Impairments: pain, strength decreased Bed Mobility increased time and need for frequent redirection Assistive Device: bed rails Supine to Sit, Level of Rogers: contact guard assist Sit to Supine, Level of Rogers: (NT, pt left sitting in bedside chair) [...] STG Status continued at 05/15/2017 1315 STG Rogers Level modified independent, supervised at 05/09/2017 1700 STG Assistive Device 2 wheeled walker (FWW) at 05/09/2017 1700 STG Distance (feet) 50 at 05/09/2017 1700 Electronically signed by: Velia Gerard, PT, 05/15/2017 15:37 lan of Care - Str pari, Erin Gandara, OT - 05/15/2017 9:44 AM [...] forward to go to a rehab facil [facility] in the future. lan of Care - Maria Antonia Bullard, BUTTON MAKER AND INSTALLER - 05/15/2017 8:43 AM PDTProblem: Patient Care Overview (Adult) Goal: Care Team Goals & Evaluation PROBLEM-RELATED GOALS: 1. Jacklyn will have breath sounds consistent with baseline function throughout stay and rev erse airway bronchospasm when indicated. Reevaluate goal by 05/19/17. 2. Jacklyn will be free from falls by 05/14/17 3. Jacklyn will have adequate pain control /10 by 05/14/17 4. Jacklyn will have HR [...] with treatment Patient not on respiratory protocols, directing care Did not require oxygen last [...] ssistance with ambulation and transfers. lan of Reena - Rob Dietrich RN - 05/14/2017 6:04 PM PDTProblem: Discharge Planning Goal: Patient will be discharged in a safe manner This CM met with patient per his request about his discharge plan. Let him know that [facility] has accepted him and he [...] he did not even know that his [facility] er was in the hospital again. This CM was trying to get some help as to where patient was going to go after his rehab, si nce patient stated that his other son, Jacklyn Siddiqi Jr, is currently moving out all his belo ngings out of [facility] in [place], since he is too high level of care for them any more. Spoke with Jacklyn Joiner, and put his phone numbers in the chart, OK with patient, since G eorge is the one who transports him to all his appts, etc. He stated that Jacklyn Joiner, is his POA. Later this afternoon evening, patient requested that this CM call the OR and see if the [facility] has any bed for him. Let patient know that this will have to be done in the AM since they are already closed today. CM will need to call the [facility] in AM to see if patient is eligible for transfer to the [facility].Electronically signed by: Ana Dietrich RN 05/14/2017 18:04 lan of Erika Mendez RRT - 05/14/2017 5:40 PM PDTProblem: Patient [...] expiratory phase . Requires 2 lpm at [facility] lan of Emily Herring RN - 05/14/2017 [...] Therapy Plan of Care Treatment Note Summary: Josefina Villasenor has been participating in physical therapy for [...] Therapy Discharge Recommendations are: Recommended discharge disposition: [facility] facility Post discharge physical therapy recommendation: will [...] treatment from his children Bed-Chair, Level of Rogers: contact guard assist, set up required, verbal cues requir ed Jwn-Knfhm-Fqe, Assistive Device: 2 wheeled walker (FWW) Sit-Stand, Level of Rogers: contact guard assist, verbal cues required Stand-Sit, Level of Rogers: contact guard assist, verbal cues required Qgh-Wduda-Uod, Assistive Device: 2 wheeled walker (FWW) Safety Issues: weight-shifting ability decreased Impairments: pain, strength decreased Bed Mobility increased time and need for frequent redirection Assistive Device: bed rails Supine to Sit, Level of Rogers: contact guard assist Sit to Supine, Level of Rogers: (NT, pt left sitting in bedside chair) [...] STG Status continued at 05/14/2017 1600 STG Rogers Level modified independent, supervised at 05/09/2017 1700 STG Assistive Device 2 wheeled walker (FWW) at 05/09/2017 1700 STG Distance (feet) 50 at 05/09/2017 1700 Electronically signed by: Velia Gerard, PT, 05/14/2017 16:19 lan of Care - Airam Cuevas OT - 05/14/2017 11:48 AM PDT Problem: [...] re questing to use commode. OT and COMPUTED TOMOGRAPHY TECHNOLOGIST assisted patient with functional t/f and limited [...] bed rails Supine to Sit, Level of Rogers: contact guard assist Sit to Supine, Level of Rogers: contact guard assist Transfers Sit-Stand, Level of Rogers: stand by assist, contact guard assist Stand-Sit, Level of Rogers: stand by assist, contact guard assist Otm-Jtoan-Nps, Assistive Device: 2 wheeled walker (FWW) Toilet, Level of Rogers: contact guard assist, stand by assist Toilet, Assistive Device: 2 wheeled walker (FWW) Impairments: pain, strength decreased OT Goal Review Date Flowsheet Row Most Recent Value STG Review Date 05/16/17 at 05/09/2017 1604 LB Dressing Goal Flowsheet Row Most Recent Value STG Status new at 05/14/2017 1045 STG Rogers Level modified independent at 05/14/2017 1045 Toilet Transfer Goal Flowsheet Row Most Recent Value STG Status new at 05/14/2017 1045 STG Rogers Level supervised at 05/14/2017 1045 STG Assistive [...] Spiritual Evaluation: Patient is a "Bible Believing Presybeterian" loves to pray and read the "Word." Spiritual Intervention: Listened to the patient's concerns about the upcoming procedure. Active Listening, past oral presence, and prayer was offered. Spiritual Outcomes: Patient appreciates pest control pilot's prayer, seems less apprehensive. Spiritual Goals / Follow-up: Will see the patient as requested. If there are any other spiritual care issues that arise, please contact pest control pilot. lan of Care - Kristina Ayers, BUTTON MAKER AND INSTALLER - 05/13/2017 3:57 PM PDTProblem: Patient Care [...] Therapy Discharge Recommendations are: Recommended discharge disposition: [facility] facility Post discharge physical therapy recommendation: will benefit from structured setting, ongo ing low intensity therapy Equipment Recommendations: 2 wheeled walker (FWW) Planned Interventions: balance training, gait training, strengthening Recommended Frequency: daily Patient Status/Goals: Reflects last filed data and may be from multiple contributors. Gait side-stepping at bedside Level of Rogers: 2 person assist required Assistive Device: 2 wheeled walker (FWW) Transfers pt weak and with dizziness, need for CGA for safety due to symptoms Sit-Stand, Level of Rogers: stand by assist, contact guard assist Stand-Sit, Level of Rogers: stand by assist, contact guard assist Jqh-[id number]-Rxf, Assistive Device: 2 wheeled walker (FWW) Safety Issues: weight-shifting ability decreased Impairments: pain, strength decreased Bed Mobility increased time d/t fatigue Assistive Device: none Supine to Sit, Level of Rogers: contact guard assist Sit to Supine, Level of Rogers: contact guard assist Functional Endurance impaired - SOB with limited activity [facility] BASIC MOBILITY [facility] BASIC MOB[facility] Turning over in bed: a [...] steps with a railing: dependent/unable TOTAL - [facility] BASIC MOBILITY : 14 Unable / dependent = 1 A lot / modA = 2 A little / Guillermo = 3 None / independent = 4 Completed the [employer] Activity Measure for Post Acute Care (AM-PAC) "6 Clicks" Ba sic Mobility Inpatient Short Form. This version of [...] STG Status continued at 05/12/2017 1203 STG Rogers Level modified independent, supervised at 05/09/2017 1700 [...] Improving This CM called Elkin at [facility] [place], p# [phone], and she confirmed that she has a [...] Team Goals & Evaluation PROBLEM-RELATED GOALS: 1. Jakclyn will have breath sounds consistent with baseline [...] pain. lan of Care - Donato Mcqueen, BUTTON MAKER AND INSTALLER - 05/12/2017 6:09 PM PDTProblem: Patient Care [...] HR less than 100 by 05/14/2017 5. Jackyln will maintain and improve skin integrity by [...] unable to step in place Level of Rogers: 2 person assist required Assistive Device: 2 wheeled walker (FWW) Distance (feet): 15, 15 Transfers pt very weak with low BP, CGA to Min Assist for sit<>stand Sit-Stand, Level of Rogers: stand by assist, contact guard assist Stand-Sit, Level of Rogers: stand by assist, contact guard assist Dry-Ebrup-Bkf, Assistive Device: 2 wheeled walker (FWW) Safety Issues: weight-shifting ability decreased Impairments: pain, strength decreased Bed Mobility NT; pt up in chair on arrival requested to stay up in chair post tx Assistive Device: none Supine to Sit, Level of Rogers: independent Sit to Supine, Level of Rogers: independent Therapeutic Exercise pt c/o of pain [...] STG Status continued at 05/12/2017 1203 STG Rogers Level modified independent, supervised at 05/09/2017 1700 STG Assistive Device 2 wheeled walker (FWW) at 05/09/2017 1700 STG Distance (feet) 50 at 05/09/2017 1700 Electronically signed by: Javier Dubon PTA, 05/12/2017 12:05 lan of Care - oRnald garcia, Morro Wen RN - 05/12/2017 3:28 AM PDTProblem: Patient [...] of [facility] - Nataly Rosenbaum RRT - 05/12/2017 12:36 AM PDTProblem: Patient Care [...] tare. lan of Care - Donato Mcqueen, BUTTON MAKER AND INSTALLER - 05/11/2017 4:33 PM PDTProblem: Patient Care [...] well during shift. lan of Care - Taime banda, Whitney Gandara RN - 05/10/2017 6:13 [...] due to fear of falling Level of Rogers: 2 person assist required Assistive Device: 2 wheeled walker (FWW) Distance (feet): 15, 15 Stairs unable Bed Mobility Assistive Device: none Supine to Sit, Level of Rogers: independent Sit to Supine, Level of Rogers: independent Therapeutic Exercise Seated exercises: bilateral, long [...] STG Status new at 05/09/2017 1700 STG Rogers Level modified independent, supervised at 05/09/2017 1700 STG Assistive Device 2 wheeled walker (FWW) at 05/09/2017 1700 STG Distance (feet) 50 at 05/09/2017 1700 Electronically signed by: Becky Jesus PT, 05/10/2017 12:12 lan of Reena - [...] drsg. lan of Care - Sana, Sudhakar Ac BUTTON MAKER AND INSTALLER - 0 05/10/2017 4:23 AM PDTProblem: Patient [...] wheezes, and diminished in bases. lan of [facility] - Mary Anderson RN - 05/09/2017 6:30 [...] for meals. On room air. lan of [facility] - Irais Reynolds RN - 05/09/2017 6:15 [...] like me [facility] [place] [facility] [place] and placed the cover sheets and fax receipts in the ghost charts. I received a call fr adriane Granger from [facility] and she verified that she had [...] due to fear of falling Level of Rogers: 2 person assist required Assistive Device: 2 wheeled walker (FWW) Distance (feet): 15, 15 Stairs NT Bed Mobility Assistive Device: none Supine to Sit, Level of Rogers: independent Sit to Supine, Level of Rogers: independent Balance ongoing assessment needed Therapeutic Exercise [...] STG Status new at 05/09/2017 170 STG Rogers Level modified independent, supervised at 05/09/20171699 STG [...] OT, 05/09/2017 16:16 lan of Care - Joanan Lock RN - 05/09/2017 6:30 AM [id number] (late entry) pt has remained in ST [...] lan o f Reena - Sudhakar Hood, BUTTON MAKER AND INSTALLER - 05/09/2017 1:56 AM PDTProblem: Patient Care [...] lan of Care - Or Nataly shah, BUTTON MAKER AND INSTALLER - 05/08/2017 6:40 PM PDTProblem: Patient Care [...] rapid heart rate lan of Care - Oh rtmirian, Martha Ron RN - 05/08/2017 6:27 PM [...] was contacted and he was transferred to [place] at 1136. At about 1445 his HR [...] Martin in around 1330 to Assess Mr Philippe. [...] PM PDTPlan of Care - Melinda Davis, SUPERVISOR PIT AND AUXILIARIES - 05/08/2017 4:23 PM PDTProblem: Discharge Planning Goal: Patient will be discharged in a safe manner Outcome: Improving This case fitter spoke with patient's POA and son Jacklyn Siddiqi regarding patient's discharg e plan. Son states that he now lives at [facility]. He was living at [facility] prior to [facility]. He has been living at [facility] about a month. Son states [...] they do go on daily walks around [facility]. Son states that he would appreciate case management to follow up with the RN at [facility] as well with him in coordinating a discharge back there. Son states that he is his transp ortation and will transport him back when stable. This CM called the RN at [facility] at [phone]. [facility] states that there has been a [...] PM PDTPt's Telemetry reading HR 150's-200. This MANAGER PLANT we nt over to assess pt. Who was lying in bed talking on the phone with a family member. He den ies chest pain, SOB and/or a fluttering feeling in his chest. SBP 108/58. Pt.'s RN is at [facility]. EKG ordered and Dr. Philippe contacted about elevated HR concerns. Pt. To be transferred over to the ICU for closer monitoring. Electronically signed by Mary Cantu RN at 04/20 2:07 PM PDTD-C Instructions Provation - Peter Maciel MD - 05/08/2017 9:20 AM PDT Discharge Instructions for Upper Endoscopy Patient: Jacklyn Siddiqi : 1935 Acct: [id number] Exam Date: Monday, May 08, 2017 Doctor: Peter Maciel MD The chances of difficulty following this procedure are minimal. The following instruction s will assist you in your recovery. 1. Do Not eat or drink anything for 1 hour. Try sips of water first. If tolerated, resu me your regular diet or one recommended by your physician. 2. Do not drive, operate bety baisl, make critical decisions, or do activities that [...] If unable to reach your physician, call [facility] Emergency Department at Ext. 2500 Your [...] 11:10 AM PDTPt had been at the OR this am and was heading back home an d pt fell twice this am once at the OR once at gas station. 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 | | | | [...] | | | ON?07/ | | | 18/201 | | | 7 | | | 11:07? | | | SDIDIQI, | | | JACKLYN | | | ?MRN: | | | [id number] | | | [id number] | | | his | | | [...] | | | ent/cd | | | [id number] | | | [id number] | | | [...] | | | St. | | | [place] | | | y H. | | [...] | | | St. | | | [place] | | | y H. | | [...] | | | St. | | | [place] | | | y H. | | [...] | | | St. | | | [place] | | | y | | | [...] + | [facility] | [address] | [place] | [phone] | | [facility] | | [address] | | | - LABORATORY | | [...] | | Oral Anticoagulation | | [facility] | | | | Range: 2.0 [...] [address] | [place] | [phone] | | [facility] | | [address] | | | - LABORATORY | | [...] non- | GLOMERULAR FILTRATION | mL/min/1.73m2 | [facility] | | | Moldovan | RATE,ESTIMATED | | MEDICAL | | | | mL/min/1.50f2Lgon than | | CENTER - | | [...] [address] | [place] | [phone] | | [facility] | | [address] | | | - LABORATORY | | [...] + | [facility] | [address] | [place] | [phone] | | [facility] | | [address] | | | - LABORATORY | | [...] | | | | BINU MACK MD ([id number]) | | | | | | on [...] | | | | BINU MACK MD ([id number]) | | | | | | on [...] was | | | taken to the lab support service tech. 1 g of cefazolin was given intravenously. | | | Patient was hooked up to EKG, pulse oximetry and blood pressure | | | monitoring. All parameters were kept stable during procedure. The | | | [employer] pacemaker fuels sales representative was present in the operating [...] the | | | pocket. A 6 Kazakh sheath was placed over the guidewire and the core | | | was removed. The additional guidewires were inserted through the | | | sheath. The sheath was then removed. The guidewires were secured | | | by hemostat, leaving one guidewire to be utilized for placement of an | | | 8 Kazakh safe sheath. A safe sheath core and [...] same technique as mentioned above, another 8 Kazakh safe sheath | | | was utilized [...] #: LPA 1200 M, serial #: [id number]. C. | | | Ventricular lead: [employer] [place], length 52 cm, model #: LPA 1200M, serial | | | #: [id number]. PACEMAKER TESTING: A. Atrial lead: Sensing 2.4 [...] #: PM 2272, serial #: | | [id number]. | | | | | |B. Atrial lead: [employer] [place], length 46 cm, model #: LPA 1200 M, | | |serial #: [id number]. | | | | | |C. Ventricular lead: [employer] [place], length 52 cm, model #: LPA 1200M, | | |serial #: [id number]. | | | | | |PACEMAKER TESTING: [...] obtained, the patient was taken to the lab support service tech. | | 1 g of cefazolin was given intravenously. Patient was hooked up to EKG, pulse oximetry | | and blood pressure monitoring. All parameters were kept stable during procedure. The | | [employer] pacemaker fuels sales representative was present in the operating [...] into the pocket. A 6 | | Kazakh sheath was placed over the guidewire and the core was removed. The additional | | guidewires were inserted through the sheath. The sheath was then removed. The | | guidewires were secured by hemostat, leaving one guidewire to be utilized for placement | | of an 8 Kazakh safe sheath. A safe sheath core and [...] as mentioned | | above, another 8 Kazakh safe sheath was utilized to introduce an [...] #: LPA 1200 M, serial #: [id number].C. | | Ventricular lead: [employer], length 52 cm, model #: LPA 1200M, serial #: [id number] | | [id number].PACEMAKER TESTING: A. Atrial lead: Sensing 2.4 mV, [...] + + | [facility] | [address] | [place] | [phone] | | [facility] | | [address] | | | - LABORATORY | | [...] [place] | | | | | | [address] | | | | + + + + + + + + | Specimen | + + | Blood | + + + + + + + | Performing | Address | City/State/Zipcode | Phone Number | | Organization | | | | + + + + + | [facility] | [address] | [place] [address] | [phone] | + + + + + Ferritin [...] + | [facility] | [address] | [place] | [phone] | | [facility] | | [address] | | | - LABORATORY | | [...] | | | SATURATION | | | [facility] | | [...] [address] | [place] | [phone] | | [facility] | | [address] | | | - LABORATORY | | [...] [place] | | | | | | [address] | | | | + + + + + + + + | Specimen | + + | Blood | + + + + + + + | Performing | Address | City/State/Zipcode | Phone Number | | Organization | | | | + + + + + | [facility] | [address] | [place] [address] | [phone] | + + + + + ECHO [...] Number [id number] Patient Number | | | [id number] Date of Study 05/13/2017 Visit Number | | | [id number] Referring Physician | | | CRUZITO BIRD MD Number | | | MARGE FLOR Date of | | | 1935 Cash Application Representative TRELL LEWIS [facility] Age | | | 81 year(s) Interpreting | | | MARGE FLOR | | | Picture Hanger CRUZITO BIRD MD Gender | | | Male Nurse | | | Stress Pipe Racker Procedure Type of Study TTE procedure: ECHO [...] | 51.23 ml | | | EF Ypjlhyvqp54% Left Ventricle Diastolic Dimension: 4.23 | | [...] Volume: 51.23 ml | | | EF Ksxjwpzhf42% | | | | | | Left [...] Room Number 457 Patient | | Number [id number] Date of Study 05/13/2017 Visit Number [id number] | | Referring Physician CRUZITO BIRD MD Number | | MARGE FLOR Date of 1935 | | Cash Application Representative TRELL LEWIS ANTONY Age 81 year(s) Interpreting | | MARGE FLOR Picture Hanger CRUZITO | | MD MARGE Gender Male [...] LA Volume: 51.23 ml EF | | Brzavfrpy56% Left Ventricle Diastolic Dimension: 4.23 cm Systolic [...] LA Volume: 51.23 ml | | EF Nsyapafzv77% | | | | Left Ventricle | [...] | | | ia | | | [facility] | | | [...] [address] | [place] | [phone] | | [facility] | | [address] | | | - LABORATORY | | [...] ST. | [address] | [place] | [phone] | | [facility] | | [address] | | | - LABORATORY | | [...] eGFR, | 39 (L)Comment: | >=60 | [facility] | | | non- | GLOMERULAR FILTRATION | mL/min/1.73m2 | [facility] | | | [place] | RATE,ESTIMATED | | MEDICAL | | | | mL/min/1.73f3Pwjy than | | CENTER - | | [...] | | | | | mg/dL | [facility] | | | | | | MEDICAL [...] + | [facility] | [address] | [place] | [phone] | | [facility] | | [address] | | | - LABORATORY | | [...] [address] | [place] | [phone] | | [facility] | | [address] | | | - LABORATORY | | [...] This is | 0.60 - 1.30 | [facility] | | | | an appended report. | mg/dL | [facility] | | | | These results have been | | MEDICAL | | | | appended to a previously | | CENTER - | | | | preliminary verified | | LABORATORY | | | | report. | | | | + + + + + + | eGFR, | 36 (L)Comment: | >=60 | [facility] | | | non- | GLOMERULAR FILTRATION | mL/min/1.73m2 | [facility] | | | [place] | RATE,ESTIMATED | | MEDICAL | | | | mL/min/1.77b5Xguu than | | CENTER - | | [...] + | [facility] | [address] | [place] | [phone] | | [facility] | | [address] | | | - LABORATORY | | [...] | | Time | | seconds | [facility] | | | | | | MEDICAL | | | | | | CENTER - | | | | | | LABORATORY | | + + + + + + | INR | 2.04 (H)Comment: Usual | 0.90 - 1.10 | [facility] | | | | Oral Anticoagulation | | [facility] | | | | Range: 2.0 - [...] [address] | [place] | [phone] | | [facility] | | [address] | | | - LABORATORY | | [...] [address] | [place] | [phone] | | [facility] | | [address] | | | - LABORATORY | | [...] [address] | [place] | [phone] | | [facility] | | [address] | | | - LABORATORY | | [...] | | | | BINU MACK MD ([id number]) | | | | | | on [...] non- | GLOMERULAR FILTRATION | mL/min/1.73m2 | [facility] | | | [place] | RATE,ESTIMATED | | MEDICAL | | | | mL/min/1.38y2Mfea than | | CENTER - | | [...] + | [facility] | [address] | [place] | [phone] | | [facility] | | [address] | | | - LABORATORY | | [...] [address] | [place] | [phone] | | [facility] | | [address] | | | - LABORATORY | | [...] arthroplasty changes. Multiple lead wires overlie the kwqcn-td-yivx. | | | Overall unchanged aeration of [...] Dictated | | | and Signed by: aJdon White MD Electronically signed: 05/11/2017 | | | 1:37 PM | | + + + + + | Procedure Note | + + | Radha, Chase Results In - 05/11/2017 1:40 PM PDT | | CLINICAL INFORMATION: New hypoxemia and reduced breath sounds and crackles left | | lung base.. | | | | COMPARISON: 05/07/2017. | | | | FINDINGS: | | Single frontal portable chest radiograph. | | | | Median sternotomy and arthroplasty changes. | | Multiple lead wires overlie the atlej-vx-fjwl. | | | | Overall unchanged aeration [...] + | [facility] | [address] | [place] | [phone] | | [facility] | | [address] | | | - LABORATORY | | [...] [address] | [place] | [phone] | | [facility] | | [address] | | | - LABORATORY | | [...] + | [facility] | [address] | [place] | [phone] | | [facility] | | [address] | | | - LABORATORY | | [...] (H) | 70 - 109 mg/dL | [facility] | | | | | | . [facility] | | | | | | MEDICAL | | | | | | CENTER - | | | | | | LABORATORY | | + + + + + + | BUN | 27 (H) | 7 - 18 mg/dL | [facility] | | | | | | . [facility] | | | | [...] eGFR, | 54 (L)Comment: | >=60 | [facility] | | | non- | GLOMERULAR FILTRATION | mL/min/1.73m2 | [facility] | | | [place] | RATE,ESTIMATED | | MEDICAL | | | | mL/min/1.21b0Qilf than | | CENTER - | | [...] + | [facility] | [address] | [place], [place] | [phone] | | [facility] | | [address] | | | - LABORATORY | | [...] [address] | [place] | [phone] | | [facility] | | [address] | | | - LABORATORY | | [...] ST. | [address] | [place] | [phone] | | [facility] | | [address] | | | - LABORATORY | | [...] | | | | BINU MACK MD ([id number]) | | | | | | on [...] | | | | BINU MACK MD ([id number]) | | | | | | on [...] [address] | [place] | [phone] | | [facility] | | [address] | | | - LABORATORY | | [...] + | [facility] | [address] | [place] | [phone] | | [facility] | | [address] | | | - LABORATORY | | [...] [address] | [place] | [phone] | | [facility] | | [address] | | | - LABORATORY | | [...] | | | | | mg/dL | [facility] | | | | | | MEDICAL | | | | | | CENTER - | | | | | | LABORATORY | | + + + + + + | eGFR, | 43 (L)Comment: | >=60 | [facility] | | | non- | GLOMERULAR FILTRATION | mL/min/1.73m2 | [facility] | | | [place] | RATE,ESTIMATED | | MEDICAL | | | | mL/min/1.38q8Dbzy than | | CENTER - | | [...] ST. | [address] | [place], [place] | [phone] | | [facility] | | [address] | | | - LABORATORY | | [...] | | | | g/dL | [facility] | | | | | | [...] ST. | [address] | [place] | [phone] | | [facility] | | [address] | | | - LABORATORY | | [...] + | [facility] | [address] | [place] | [phone] | | [facility] | | [address] | | | - LABORATORY | | [...] [address] | [place] | [phone] | | [facility] | | [address] | | | - LABORATORY | | [...] | | | | BINU MACK MD ([id number]) | | | | | | on [...] | [facility] | | GastroenterologyPatient Name: Jacklyn SiddiqiProcedjeremy Date: 05/08/2017 | PROVATION | | 9:20 AMMRN: [id number] #: [id number] of : | | | 1935dmit Type: InpatientAge: 81Room: [facility] 02Gender: MaleNote | | | Status: FinalizedAttending MD: Peter Maciel , MDProcedure: | | | Upper GI endoscopyIndications: Gastrointestinal | | | bleeding of unknown originProviders: Peter Maciel MD, | | | Malka Dueñas RN, Amelie Cabral | | | Sukumar, Pipe Racker, Miguel Galicia MD | | | (Anesthesia [...] | | | the anesthesiologist and the music sound light technician in the pre-procedure | | | [...] Scope In: 9:35:52 AMScope Out: 9:41:03 AM [facility]. | | | [facility], [address] [place] [address] | | | [phone] | | | - A small amount [...] |Scope Out: 9:41:03 AM | | | [facility], [address] [place], [place] | | | [address] | | + + -+ + +---------+ + + | Performing | Address | City/State/[facility] Cent[facility]ode | Phone Number | | [...] + | [facility] | [address] | [place] | [phone] | | [facility] | | [address] | | | - LABORATORY | | [...] mL/min/1.73m2 | [facility] | | | [place] | RATE,ESTIMATED | | MEDICAL | | | | mL/min/1.70x6Bhpf than | | CENTER - | | [...] ST. | [address] | [place], [place] | [phone] | | [facility] | | [address] | | | - LABORATORY | | [...] + | [facility] | [address] | [place] | [phone] | | [facility] | | [address] | | | - LABORATORY | | [...] mL/min/1.73m2 | [facility] | | | [place] | RATE,ESTIMATED | | MEDICAL | | | | mL/min/1.78p7Dyax than | | CENTER - | | [...] + | [facility] | [address] | [place] | [phone] | | [facility] | | [address] | | | - LABORATORY | | | | + + + + + B Type Natriuretic Peptide (05/07/2017 5:24 PM PDT) + +---------+ + + + | Component | Value | Ref Range | Performed | Pathologist | | | | | At | Signature | + +---------+ + + + | BNP | 488 (H) | <100 pg/mL | [facility] | | | | | | [facility] [...] + | [facility] | [address] | [place] | [phone] | | [facility] | | [address] | | | - LABORATORY | | [...] | | Oral Anticoagulation | | [facility] | | | | Range: 2.0 [...] [address] | [place] | [phone] | | [facility] | | [address] | | | - LABORATORY | | [...] [address] | [place] | [phone] | | [facility] | | [address] | | | - LABORATORY | | [...] + | [facility] | [address] | [place] | [phone] | | [facility] | | [address] | | | - LABORATORY | | [...] | | | Total | | | [facility] [place] | | [...] [address] | [place] | [phone] | | [facility] | | [address] | | | - LABORATORY | | [...] + | [facility] | [address] | [place] | [phone] | | [facility] | | [address] | | | - LABORATORY | | [...] | | POC | | Yellow | [facility] | | | | [...] - 1.030 | [facility] | | | [place], | | | [facility] | | [...] + | [address] [facility] | [address] | [place], [place] | [phone] | | [facility] | | [address] | | | - LABORATORY | | [...] | | | | FREDERICK CHARLTON, BINU ([address]) | | | | | | on [...] | | | | | | [employer] | | | | | [...] [address] | [place] | [phone] | | [facility] | | [address] | | | - LABORATORY | | [...] + | [address] | [address] | [place], [place] | [phone] | | [facility] | | [address] | | | - LABORATORY | | [...] eGFR, | 53 (L)Comment: | >=60 | [facility] | | | non- | GLOMERULAR FILTRATION | mL/min/1.73m2 | [facility] | | | [place] | RATE,ESTIMATED | | MEDICAL | | | | mL/min/1.75s6Yvwj than | | CENTER - | | [...] | 8.7 | 8.3 - 10.5 | [facility] | | | | | mg/dL | [facility] | | | | | | MEDICAL [...] [address] | [place] | [phone] | | [facility] | | [address] | | | - LABORATORY | | [...] | | Cells | | | . LEATHA | | | | [...] [address] | [place] | [phone] | | [facility] | | [address] | | | - LABORATORY | | [...]
--- OUTSIDE RECORDS SUMMARY | ~2020-06-28 | XMS | Encounter Summary ---
Demographics + + + | Address | [address] | | | [place] [address] | + + + | Home Phone [...] Team Providers + +------+ + | Care Slasher Tender Name | Role | Phone | [...] Provider Unknown | | | | | [place], [place] | [phone] | | | | | [address] | | | | | | [phone] | | | +--------+ + + + [...] | Monitor | | MD [address] | Interrogation | | | | | [place], | (Primary Dx); | | | | | [place] [address] | Pacemaker Dual | | | | | [phone] | Chamber, MRI | | | | [...]
--- OUTSIDE RECORDS SUMMARY | ~2020-06-28 | XMS | Encounter Summary ---
Demographics + + + | Address | [address] | | | [place] [address] | + + + | Home Phone | | + + + | Preferred Language | Unknown | + + + | Marital Status | | + + + | Mosque Affiliation | 1061 | + + + | Race | White | + + + | Ethnic Group | Not or | + + + Author + + + | Author | [facility] | | | and [place] | + + + | Organization | [facility] | | [...] Team Providers + +------+ + | Care General Milling Superintendent Name | Role | Phone | + [...] + + | 09/19/ | Office | [facility] | Emely Gabriel, | Tachycardia-bradycar | | 2017 | Visit | CARDIOLOGY [address] | IT CONSULTING MANAGER [address] | pablo syndrome (HCC) | | | | [place], | [place], [place] | (Primary Dx); | | | | [place] [address] | [address] | Coronary artery | | | | [phone] | | disease involving | | | | | | levelock coronary | | | | | | artery of levelock | | | | | | heart without angina | | | | | | pectoris; | | | | | | Persistent atrial | | | | | | fibrillation ([facility]); | | | | | | Chronic diastolic | | | | | | congestive heart | | | | | | failure ([facility]); | | | | | | Essential [...] LAD and mechanical aortic valve replacement in 05, heart failure with preserved ejection fraction, stage [...] in his spare time. He has a direct care counselor that is with him about 4 hours [...] Dementia Alcoholic cirrhosis Coronary artery disease involving levelock coronary artery of levelock heart without angina pectoris Pulmonary HTN Diastolic [...] 40 BPM Confirmed by BASIA BIRD MD ([id number]) on 06/20/2017 6:04:16 AM LAB RESULTS reviewed during visit today primarily from [facility]: LIPID No results found for: CHOL, [...] scanned Paceart documentation and device PDF in Exablox for interrogation (with programming changes) performed during [...] y.o.(2) and Vascular disease ( 1). His [id number] score is 4, which gives an estimated [...] ure. He is in a class IIof [place] [employer] functional class. He is on a rhythm control strategy with amiodarone. He is on warfarin to minimize the ris k of stroke. 3. Congestive heart failure with preserved ejection fraction A. He is being treated with furosemide. Heart failure is well compensated 4. Coronary artery disease: A. [facility] 11/14/2004 shows preserved left ventricular systolic function, [...] 2. He will continue with his [employer] remote device monitoring. 3. He will follow up in 6 months for office visit and device interrogation, or sooner with concerns. Electronically signed by: AMANDA Hurtado Portions of this chart may have been created with Gigamon voice recognition software. Occasi onal wrong-word or sound-alike substitutions may have occurred due to the inherent carter itations of voice recognition software. Please read the chart carefully and recognize, using context, where these substitutions have occurred. documented in this encounter Procedure Notes Emeyl Gabriel ARNP - 09/19/2017 12:45 PM PSTAssociated Order(s): DEVICE INTERROGATIONProc edure(s): DEVICE INTERROGATIONPre-Procedure Diagnose(s): Tachycardia-bradycardia syndrome (H CC); Pacemaker reprogramming/check; Pacemaker PATIENT NAME: Johnny Siddiqi : 1935: AGE: 82 y.o. Device In-office Evaluation Report 09/19/2017 Reason for evaluation: routine Indication for device: ICD-10-CM ICD-9-CM 1. Tachycardia-bradycardia syndrome (HCC) I49.5 427.81 Device Interrogation Device Interrogation 2. Coronary artery disease involving levelock coronary artery of levelock heart without angina pectoris I25.10 414.01 3. Persistent atrial fibrillation (HCC) I48.1 427.31 4. Chronic diastolic congestive heart failure (HCC) I50.32 428.32 428.0 5. Essential hypertension I10 401.9 6. Pacemaker reprogramming/check Z45.018 V53.31 Device Interrogation Device Interrogation 7. Pacemaker Dual Chamber, MRI compatible, 05/14/17 [facility] [place] Z95.0 V45.01 Device In [facility] Device Interrogation Patient was seated [...] (Primary Dx); | | | | | [place] [address] | Pacemaker Dual | | | | | [phone] | Chamber, MRI | | | | [...] | | | | | [place], [place] | | | | | | [address] | | | | | | | [...] | | | PST | pablo syndrome ([facility]) | results section. | | [...] | | | PST | pablo syndrome (HCC) | results section. 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 [facility] current use of amiodarone Z79.899 V58.69 XR [...] | | 2. Coronary artery disease involving levelock coronary artery of levelock heart without | | angina pectoris I25.10 [...] CBC no Differential T4, Free TSH 8. [facility] current use of amiodarone Z79.899 | | [...] T4, Free | | TSH | |8. [facility] current use of amiodarone Z79.899 V58.69 XR [...] | Emely Gabriel, | STEPHART | | AMANDA 09/20/2017 12:31 PATIENT NAME: Johnny Siddiqi : | | | 1935: AGE: 82 y.o. Device In-office Evaluation Report | | | 09/19/2017 Reason for evaluation: routineIndication for device: | | | ICD-10-CM ICD-9-CM 1. 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 Coronary | | | artery disease involving levelock coronary artery of levelock heart | | | without angina pectoris [...] AGE: 82 | | y.o.Device In-office Evaluation Uyvwcw7509/19/2017 Reason for evaluation: | | routineIndication for device: ICD-10-CM ICD-9-CM 1. Tachycardia-bradycardia syndrome | | ([facility]) I49.5 427.81 Device Interrogation Device Interrogation 2. Coronary artery | | disease involving levelock coronary artery of levelock heart without angina pectoris I25.10 | | 414.01 3. Persistent atrial fibrillation ([facility]) I48.1 427.31 4. Chronic diastolic | | congestive heart failure ([facility]) I50.32 428.32 428.0 5. Essential hypertension I10 | | 401.9 6. Pacemaker reprogramming/check Z45.018 V53.31 Device Interrogation Device | | Interrogation 7. Pacemaker Dual Chamber, MRI compatible, 05/14/17 [facility] [place] Z95.0 | | V45.01 Device Interrogation Device [...] + + | Coronary artery disease involving levelock coronary artery of levelock heart without | | angina pectoris | [...]
--- OUTSIDE RECORDS SUMMARY | ~2020-06-28 | XMS | Encounter Summary ---
Demographics + + + | Address | [address] | | | [place] [address] | + + + | Home Phone [...] + + + | Author | [facility] | | | and [place] | + + + | Organization | [facility] | | [...] Team Providers + +------+ + | Care Veterinarian Poultry Name | Role | Phone | + [...] | 10/14/ | Implant | [facility] [place] | Cruzito Bird, | Remote Device | | 2017 | Monitor | CARDIOLOGY [address] | [address] | Interrogation | | | | [place], | [place], | (Primary Dx); | | | | [place] [address] | [place] [address] | Pacemaker Dual | | | | [phone] | [phone] | Chamber, MRI | | | | [...] Paceart documentation and remote PDF scanned into RxVantage for remote interrogation results. Data collected by [...] Dx); | | | | | [place] [address] | Pacemaker Dual | | | | | [phone] | Chamber, MRI | | | | [...] [place] | | | | | | [address] | | | | | | | [...] | | | remote PDF scanned into RxVantage for remote interrogation results. Data | | [...] Chamber, MRI compatible, 05/14/17 [facility] [place] Cardiac pacemaker | | in situ | + + | 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 | + + | Remote Device Interrogation - Primary Fitting and adjustment of cardiac pacemaker | + + | Pacemaker Dual Chamber, MRI compatible, 05/14/17 [facility] [place] Cardiac pacemaker | | in situ | + + | 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
--- OUTSIDE RECORDS SUMMARY | ~2020-06-28 | XMS | Encounter Summary ---
Demographics + + + | Address | [address] | | | [place] [address] | + + + | Home Phone | | + + + | Preferred Language | Unknown | + + + | Marital Status | | + + + | Yarsani Affiliation | 1061 | + + + | Race | White | + + + | Ethnic Group | Not or | + + + Author + + + | Author | [facility] | | | and [place] | + + + | Organization | [facility] | | [...] Team Providers + +------+ + | Care Therapist'S Assistant Name | Role | Phone | + +------+ + PCP | Unavailable | + +------+ + Encounter Details +--------+ + + + + | Date | Type | Department | Care Team | Description | +--------+ + + + + | 10/25/ | Hospital | [facility] | Mauricio Goldberg | | | 2003 | Encounter | MED CTR XRAY [address] | MD [address] | | | | | [place] | [place] | | | | | [place] [address] | [place] [address] | | | | | [phone] | [phone] | | | | | | | [...] | 2020 | Monitor | | MD [address] | Interrogation | | | | | [place], | (Primary Dx); | | | | | [place] [address] | Pacemaker Dual | | | | | [phone] | Chamber, MRI | | | | | | compatible, 05/14/17 | | | | | | [facility]; | | | | | | 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) | +--------+ + + + + | 01/05/ | Office | Cardiology | Emely Gabriel, | | | 2020 | Visit | | COPING MACHINE ASSEMBLER [address] | | | | | | [place] | | | | | | [address] | | | | | | | | +--------+ + + + + documented as of this encounter Visit Diagnoses Not on filedocumented in this encounter"
--- OUTSIDE RECORDS SUMMARY | ~2020-06-28 | XMS | Encounter Summary ---
Demographics + + + | Address | [address] | | | [place] [address] | + + + | Home Phone | | + + + | Preferred Language | Unknown | + + + | Marital Status | | + + + | Alevism Affiliation | 1061 | + + + [...] Team Providers + +------+ + | Care Marketing Executive Name | Role | Phone | + [...] + + | 05/21/ | [facility] | [facility] [place] | Cruzito Bird, | Tachycardia-bradycar | | 2017 | Support | CARDIOLOGY [address] | [address] [place] | pablo syndrome (HCC) | | | | [place], | [place], | (Primary Dx); | | | | [place] [address] | [place] [address] | Pacemaker Dual | | | | [phone] | [phone] | Chamber, MRI | | | | [...] uled an appointment with Dr Paulino at [facility] on Saturday05/27/17 at 10 AM. No [...] states he shou ld be at the [facility] and is upset he is missing his appointment with Dr Paulino because his facili ty dropped him off here instead. I ended up calling the [facility] for patient and scheduled an appo intment [...] Dx); | | | | | [place] [address] | Pacemaker Dual | | | | | [phone] | Chamber, MRI | | | | [...] [place] | | | | | | [address] | | | | | | | [...]
--- OUTSIDE RECORDS SUMMARY | ~2020-06-28 | XMS | Encounter Summary ---
Demographics + + + | Address | [address] | | | [place] [address] | + + + | Home Phone [...] Team Providers + +------+ + | Care Wheat Grower Name | Role | Phone | + [...] Monitor | CARDIOLOGY [address] | [address] [place] | Interrogation | | | | [place], | [place], | (Primary Dx); | | | | [place] [address] | [place] [address] | Pacemaker Dual | | | | [phone] | [phone] | Chamber, MRI | | | | [...] and remote PDF scanned into [facility] for remote interrogation re sults. Data collected by COSTA FENTON RN Presenting rhythm: atrial paced ventricular sensed [...] Interrogation | | | | | [place], | (Primary Dx); | | | | | [place] [address] | Pacemaker Dual | | | | | [phone] | Chamber, MRI | | | | | | compatible, 05/14/17 | | | | | | [facility]; | | | | | | 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) | +--------+ + + + + | 01/05/ | Office | Cardiology | Emely Gabriel, | | | 2020 | Visit | | HIGH CLIMBER [address] [place] | | | | | | St [place] | | | | | | [address] | | | | | | | [...] Paceart documentation and remote PDF scanned into Triumfant for | | | remote interrogation results. [...] of Remote Interrogation: | | 10/21/18Refer to Around Knowledgeart documentation and remote PDF scanned into Triumfant for remote | | interrogation results. Data [...]
--- OUTSIDE RECORDS SUMMARY | ~2020-06-28 | XMS | Encounter Summary ---
Demographics + + + | Address | [address] | | | [place] [address] | + + + | Home Phone [...] Team Providers + +------+ + | Care Housekeeping Staff Name | Role | Phone | + +------+ + | Antonio Paulino MD | PCP | | + +------+ + Encounter Details +--------+ + + + + | Date | Type | Department | Care Team | Description | +--------+ + + + + | 05/13/ | Orders Only | [facility] | Cruzito Bird, | Tachycardia-bradycar | | 2017 | | CARDIOLOGY [address] | [address] [place] | pablo syndrome (HCC) | | | | [place], | [place], | | | | | [place] [address] | [place] [address] | | | | | [phone] | [phone] | | | | | | | [...] | 2020 | Monitor | | [address] [facility] | Interrogation | | | | | [place], | (Primary Dx); | | | | | [place] [address] | Pacemaker Dual | | | | | [phone] | Chamber, MRI | | | | | | compatible, 05/14/17 | | | | | | [facility]; | | | | | | 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) | +--------+ + + + + | 01/05/ | Office | Cardiology | Emely Gabriel, | | | 2020 | Visit | | MEDICAL PRACTICE MANAGER [address] | | | | | | [place] | | | | | | [address] | | | | | | | [...]
--- OUTSIDE RECORDS SUMMARY | ~2020-06-28 | XMS | Encounter Summary ---
Demographics + + + | Address | [address] | | | [place] [address] | + + + | Home Phone [...] Team Providers + +------+ + | Care Supply Chain Tech Name | Role | Phone | + +------+ + | Antonio Paulino MD | PCP | | + +------+ + Reason for Visit +--------+--------+ + | Reason | Onset | Comments | | | Date | | +--------+--------+ + | Other | 06/01/ | | | | 2020 | | +--------+--------+ + Encounter Details +--------+ + + + + | Date | Type | Department | Care Team | Description | +--------+ + + + + | 06/01/ | Telephone | [facility] [place] | Emely Gabriel, | Other | | 2020 | | CARDIOLOGY [address] | COMPUTER TECHNOLOGIST [address] | | | | | [place], | [place] | | | | | [place] [address] | [address] | | | | | [phone] | | | +--------+ + + + [...] this encounter Miscellaneous Notes Telephone Encounter - Emely Gabriel ARNP - 06/02/2020 9:22 AM Ishan Hall, they under stood the risks associated with not having pulmonary function tests while on amiodarone and still decided to decline pulmonary function tests. Will readdress at follow up appointment a nd even discuss alternate therapies if indicated. Thanks! .................................. .........AMANDA Mcmillan on 06/02/20 at 9:25 AM PDT elephone Encounter - Isabel Colbert RN - 06/01 3:15 PM PDTSpoke with patient's son Johnny concerning Pulmonary function test to be d one at [facility]. He stated that he has not been called. I called respiratory at [facility] and spoke to Ash, they are requiring Covid test 3 days before the PFT. Requested covid order from Emely Gabriel. I informed Johnny that the patient needed a covid test and he decl ined the covid test and PFT's stated that the patient is on oxygen all the times and does no t need it. I explained the reason that it was ordered since the patient is on amiodarone and he understood. ..........................................Isabel Colbert RN on 06/01/20 at 3:59 PM PDT documented in thi s encounter Plan of Treatment +--------+ + + [...] Dx); | | | | | [place] [address] | Pacemaker Dual | | | | | [phone] | Chamber, MRI | | | | [...] [place] | | | | | | [address] | | | | | | | | +--------+ + + + + documented as of this encounter Visit Diagnoses Not on filedocumented in this encounter"
--- OUTSIDE RECORDS SUMMARY | ~2020-06-28 | XMS | Encounter Summary ---
Demographics + + + | Address | [address] | | | [place] [address] | + + + | Home Phone | | + + + | Preferred Language | Unknown | + + + | Marital Status | | + + + | Mormon Affiliation | 1061 | + + + | Race | White | + + + | Ethnic Group | Not or | + + + Author + + + | Author | [facility] | | | and [place] | + + + | Organization | [facility] [...] Providers + +------+ + | Care Manager Completions Name | Role | Phone | + [...] | 12/17/ | Telephone | [facility] [place] | Cruzito Bird, | Lab Order (Pt due | | 2019 | | CARDIOLOGY [address] | MD [address] | for labs prior to | | | | [place], | [place], | appt ) | | | | [place] [address] | [place] [address] | | | | | [phone] | [phone] | | | | | | | [...] AND W ILL DO LAB WORK AT [facility]. elephone Encounter - Genesis Horne RN - 12/17/2018 11:22 AM P Bhanu placed. elephone Encounter - Trinidad Musa, Supervisor Machining - 12/17/2018 11:15 AM Ra kinsey voicemail [...] Dx); | | | | | [place] [address] | Pacemaker Dual | | | | | [phone] | Chamber, MRI | | | | | | compatible, 05/14/17 | | | | | | [facility]; | | | | | | 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) | +--------+ + + + + | 01/05/ | Office | Cardiology | Abhijitalida Emely, | | | 2020 | Visit | | ICT ANALYST [address] | | | | | | [place] | | | | | | [address] | | | | | | | [...] involving | | | | | | [place] coronary | | | | | | artery of [place] | | | | | | heart [...] involving | | | | | | [place] coronary | | | | | | artery of [place] | | | | | | heart [...] involving | | | | | | [place] coronary | | | | | | artery of [place] | | | | | | heart [...] + + | Coronary artery disease involving [place] coronary artery of [place] heart without | | angina pectoris | [...]
--- OUTSIDE RECORDS SUMMARY | ~2020-06-28 | XMS | Encounter Summary ---
Demographics + + + | Address | [address] | | | [place] [address] | + + + | Home Phone [...] Team Providers + +------+ + | Care Paint Dipper Name | Role | Phone | + +------+ + | Antonio Paulino MD | PCP | | + +------+ + Encounter Details +--------+ + + + + | Date | Type | Department | Care Team | Description | +--------+ + + + + | 03/13/ | Orders Only | [facility] | Robert Espinosa | | | 2016 | | [address] | [address] | | | | | [place] | [place] [address] | | | | | [place], [place] | [place] [address] | | | | | [address] | [phone] | | | | | [phone] | | | +--------+ + + + [...] Dx); | | | | | [place] [address] | Pacemaker Dual | | | | | [phone] | Chamber, MRI | | | | | | compatible, 05/14/17 | | | | | | [facility] [place]; | | | | | | 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) | +--------+ + + + + | 01/05/ | Office | Cardiology | Emely Gabriel, | | | 2020 | Visit | | PEDIATRIC UROLOGIST [address] | | | | | | [place] | | | | | | [address] | | | | | | | [...] NML, diastolic function abnormal, | | | Trail visually estimates LVEF 60-65%. Moderate LAE, mild [...] | | funcion NML, diastolic function abnormal, Trail visually estimates | | | LVEF 60-65%. [...] pressures of | | | 10-15mmHg. MEASUREMENTS Macerator Operator: DBS | | | Authenticated by: Antonio Payne DO Report Date/Time: -- | | | [id number]:22 | | + + + + + [...] LVH, systolic funcion NML, diastolic function abnormal, Trail visually | | estimates LVEF 60-65%. Moderate [...] venous pressures of 10-15mmHg. MEASUREMENTS | | Macerator Operator: ADAMAuthenticated by: Antonio Kline Date/Time: -- | | [id number]:22 IMPRESSION: 1. See Dictation. TDS. A fib.2. [...] LVH, systolic funcion NML, diastolic function abnormal, Trail | | visually estimates LVEF 60-65%. Moderate [...] | |MEASUREMENTS | | | | | |Macerator Operator: DBS | |Authenticated by: Antonio Payne DO | |Report Date/Time: -- [id number]:22 | | | |IMPRESSION: | |1. See [...] systolic funcion NML, diastolic function abno rmal, Trail visually estimates LVEF 60-65%. Moderate LAE, mild [place]RI[place]. RV dimensions NML, sy stolic function impaired. 4. | |No Pericardial effusion. 5. 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 | + + documented in this encounter Visit Diagnoses Not on filedocumented in this encounter"
--- OUTSIDE RECORDS SUMMARY | ~2020-06-28 | XMS | Encounter Summary ---
Demographics + + + | Address | [address] | | | [place] [address] | + + + | Home Phone [...] Team Providers + +------+ + | Care Chemist Assistant Name | Role | Phone | [...] | 07/16/ | Implant | [facility] | Cruzito Bird, | Pacemaker | | 2017 | Monitor | CARDIOLOGY [address] [place] | reprogramming/check | | | | [place], | [place], | (Primary Dx); | | | | [place] [address] | [place] [address] | Pacemaker Dual | | | | [phone] | [phone] | Chamber, MRI | | | | [...] [employer] documentation and remote PDF scanned into [employer] for remote interrogation results. Data collected by Mel Horne RN Presenting rhythm: Sinus rhythm atrial paced ventricular sensed 60 bpm. [id number] mode switch episodes accounting for 19% of [...] 2019 | Monitor | | [address] [facility] | Interrogation | | | | | [place], | (Primary Dx); | | | | | [place] [address] | Pacemaker Dual | | | | | [phone] | Chamber, MRI | | | | | | compatible, 05/14/17 | | | | | | [facility] [place]; | | | | | | 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) | +--------+ + + + + | 01/05/ | Office | Cardiology | Emely Gabriel, | | | 2020 | Visit | | FOREIGN LANGUAGE INSTRUCTOR [address] | | | | | | [place] | | | | | | [address] | | | | | | | [...] | | and remote PDF scanned into [employer] for remote interrogation results. | | | Data collected by BATSHEVA Hightowerresenting rhythm: Sinus | | | rhythm atrial paced ventricular sensed 60 bpm.[id number] mode switch | | | episodes accounting [...]
--- OUTSIDE RECORDS SUMMARY | ~2020-06-28 | XMS | Encounter Summary ---
Demographics + + + | Address | [address] | | | [place] [address] | + + + | Home Phone [...] Team Providers + +------+ + | Care State Historical Society Director Name | Role | Phone | [...] Monitor | CARDIOLOGY [address] [place] | Interrogation | | | | [place], | [place], | (Primary Dx); | | | | [place] [address] | [place] [address] | Pacemaker Dual | | | | [phone] | [phone] | Chamber, MRI | | | | [...] and remote PDF scanned into [facility] for remote interrogation re sults. Data collected [...] Interrogation | | | | | [place], | (Primary Dx); | | | | | [place] [address] | Pacemaker Dual | | | | | [phone] | Chamber, MRI | | | | | | compatible, 05/14/17 | | | | | | [facility]; | | | | | | 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) | +--------+ + + + + | 01/05/ | Office | Cardiology | Emely Gabriel, | | | 2020 | Visit | | CAD OPERATOR [address] | | | | | | [place] | | | | | | [address] | | | | | | | [...] | [facility] | | MD Marge 02/11/2020 4:16 PMDate of Remote Interrogation: | | | 01/26/2020 Refer to [employer] documentation and remote PDF scanned into | | | [facility] for remote interrogation results. Data collected by [...]
--- OUTSIDE RECORDS SUMMARY | ~2020-06-28 | XMS | Encounter Summary ---
Demographics + + + | Address | [address] | | | [place] [address] | + + + | Home Phone [...] + + + | Author | [facility] | | | and [place] | + + + | Organization | [facility] | | | and [place] | + + + | Address | Unknown | + + + | Phone | Unavailable | + + + Support + + +---------+ + | Name | Relationship | Address | Phone | + + +---------+ + | Jacklyn Siddiqi Jr. | ECON | Unknown | | + + +---------+ + | Cassnadra Benitez | ECON | NA | | [...] Providers + +------+ + | Care Field Horticultural Specialty Grower Name | Role | Phone | [...] Description | +--------+---------+ + + + | 05/14/ | Surgery | [facility] | Cruzito Bird, | CV EP PPM System | | 2017 | | MED CTR CV INTRA OP | MD [address] | Implant | | | | [address] | [place], | | | | | [place] | [place] [address] | | | | | [address] | [phone] | | | | | [phone] | | | +--------+---------+ + + + [...] + + + | Blood Pressure | 140/53 | 05/14/2017 9:20 AM | | | | | PDT | | + + + + + | Pulse | 63 | 05/14/2017 9:20 AM | | | | | PDT | | + + + + + | Temperature | 37.2 C (99 F) | 05/14/2017 6:00 AM | | | | | PDT | | + + + + + | Respiratory Rate | 23 | 05/14/2017 6:00 AM | | | | | PDT | | + + + + + | Oxygen Saturation | 98% | 05/14/2017 6:00 AM | | | | | PDT | | + + + + + | Inhaled Oxygen | - | - | | | Concentration | | | | + + + + + | Weight | 106.7 kg (235 lb 3.7 | 05/14/2017 3:45 AM | | | | oz) | [...] Physician Discharge Summary Patient ID: Jacklyn Siddiqi [id number] 81 y.o. 1935 Admit date: 05/07/2017 Discharge [...] significantly so this was dis continued. The bituminous paving machine operator recommended putting in a permanent pacemaker [...] normal Psychiatric: Appropriate affect and mood Disposition: [facility] Patient Instructions: Discharge Medications New Medications Details [...] Care Everywhere.Pacemaker Impla ntation, Discharge Instructions for (Polish)documented in this encounter Medications at Time of [...] | | 8 | | tablet | days | | | | | + + + +---------+ + + documented as of this encounter Progress Notes Yodit Philippe MD - 06/04/2017 8:18 PM PDT [facility] Patient: Jacklyn Siddiqi : 1935: Age: 81 y.o. MedRec: [id number] PCP: Antonio Paulino MD Admission date: 05/07/2017 [...] as outlined above. Yodit Philippe 06/04/2017 20:18 [facility] Shawn Lewis, [facility] Hearing Therapist - 05/16/2017 9:29 AM PDTFormatting of this [...] 0424 05/14/17 1753 05/13/17 0436 05/12/17 1949 05/12/171941 CREA -- -- 1.20 1.67* 1.82* -- [...] am: INR 4. Warfarin education received NO- well logging mud analysis captain. 5. Pharmacist to follow daily Warfarin Dosing Nomogram Warfarin Dosing Expectations Per P&T-approved Electronically signed by: Shawn Mercedes, Lab Analyst 05/16/2017 9:29 Michael Giang MD - 05/16/2017 [...] Cardiovascular Palp/Percussion: PMI in 5th ICS at [facility]; no lifts, thrills, palp S3 or S4. [...] He is in a class IIo f [place] [employer] functional class. There is mild [...] made to ensure accuracy; however, inadvertent computerized computer systems software architect errors may be pre sent. Electronically signed by: Cruzito Bird MD 05/16/2017 7:18 Susan Diaz MD - 05/15/2017 7:43 PM PDT [facility] Patient: Jacklyn Siddiqi : 1935: Age: 81 y.o. MedRec: [id number] PCP: Antonio Paulino MD Admission date: 05/07/2017 [...] ou tlined above. Susan Vides 05/15/2017 19:43 [facility] Jessica Rivas, PharmD - 05/15/2017 7:41 AM [...] am: INR 4. Warfarin education received NO- well logging mud analysis captain. 5. Pharmacist to follow daily Warfarin Dosing Nomogram Warfarin Dosing Expectations Per P&T-approved Electronically signed by: Jessica Delaney, PharmD 05/15/2017 7:41 Michael Giang MD - [...] DOPamine Stopped (05/12/17 0745) norepinephrine Stopped (05/11/17 7125) OBJECTIVE: PHYSICAL EXAM Latest VS: BP 135/43 [...] Sinus rhythm Confirmed by FREDERICK CHARLTON, BINU ([id number]) on 05/15/2017 5:56:04 AM ECG 12 lead [...] Sinus rhythm Confirmed by BINU MACK MD ([id number]) on 05/15/2017 5:57:23 AM CBC no Differential [...] He is in a class IIo f [place] Heart Association functional class. There is mild [...] with anemia A. Being seen by Dr. uDnne. 5. Stage III chronic kidney disease 6. [...] made to ensure accuracy; however, inadvertent computerized computer systems software architect errors may be pre sent. Electronically signed by: Cruzito Bird MD 05/15/2017 6:36 Susan Diaz MD - 05/14/2017 8:48 PM PDT [facility] Patient: Jacklyn Siddiqi : 1935: Age: 81 y.o. MedRec: [id number] PCP: Antonio Paulino MD Admission date: 05/07/2017 Hospital day # : 7 Physician author: Susna Vides MD Today: 05/14/2017 SUBJECTIVE: Mr. Jacklyn [...] ou tlined above. Susan Vides 05/14/2017 20:48 [facility] Jessica Rivas, PharmD - 05/14/2017 4:08 PM [...] am: INR 4. Warfarin education received NO- well logging mud analysis captain. 5. Pharmacist to follow daily Warfarin [...] INFUSIONS: DOPamine Stopped (05/12/17 0745) norepinephrine Stopped (05/11/175) sodium chloride 0.9% 125 mL/hr at 05/14/17 [...] treatment were discussed with the patient in [facility]. The patient decides to proceed with the procedure. 2. Resume Coumadin after procedure today. 3. Start amiodarone oral loading today to treat A. fib with RVR. Portions of this report were transcribed using voice recognition software. Every effort wa s made to ensure accuracy; however, inadvertent computerized computer systems software architect errors may be pre sent. Electronically signed by: Cruzito Bird MD 05/14/2017 6:25 row, Yodit Ramsay MD - 05/13/2017 7:23 AM PDTForm atting of this note might be different from the original. [facility] Patient: Jacklyn Siddiqi : 1935: Age: 81 y.o. MedRec: [id number] PCP: Antonio Paulino MD Admission date: 05/07/2017 [...] has lengthened Confirmed by FREDERICK CHARLTON, BINU ([id number]) on 05/13/2017 6:24:02 AM Culture, Blood Result [...] arthroplasty changes. Multiple lead wires overlie the iwrfm-[id number]-dljm. Overall unchanged aeration of the lungs with [...] apnea) Patient was tested (positive) at the [facility], w as provided with CPAP, slept "all [...] awake and requires oxygen when a sleep. B-CONTRACT LAW SPECIALIST 488 on arrival. Echo 02/2017 showed EF [...] reticulocyte count, haptoglobin, B12. Begin iron replacement th . Patient is medically complex and ill and I do not think a colonoscopy is safe for hi m nor would it yield much. Diastolic CHF CAD (coronary artery disease) CABG DON to LAD 2004. Normal Troponin at this admission . No chest pain. No recent stress test results. Pulmonary HTN Mild to severe by echo [id number]. Never smoked tobacco and no documente d [...] associated falls, on e occurring at the [facility] the day of admission and [...] as outlined above. Yodit Philippe 05/13/2017 7:23 [facility] row, Yodit Ramsay MD - 0 05/12/2017 10:27 AM PDT [facility] Patient: Jacklyn Siddiqi : 1935: Age: 81 y.o. MedRec: [id number] PCP: Antonio Paulino MD Admission date: 05/07/2017 [...] arthroplasty changes. Multiple lead wires overlie the gdjph-vl-pegy. Overall unchanged aeration of the lungs with [...] as outlined above. Yodit Philippe 05/12/2017 10:27 [facility] row, Yodit Ramsay MD - 0 05/11/2017 2:21 PM PDT [facility] Patient: Jacklyn Siddiqi : 1935: Age: 81 y.o. MedRec: [id number] PCP: Antonio Paulino MD Admission date: 05/07/2017 [...] with rate 70-80 on dopamine 5 mcg/min. Bradley systolic valve cli ck at [facility]. Respiratory: [...] arthroplasty changes. Multiple lead wires overlie the vnctt-lb-bfgs. Overall unchanged aeration of the lungs with [...] as outlined above. Yodit Philippe 05/11/2017 14:21 [facility] ihtney Bernard R N - 05/10/2017 7:34 PM [...] Whitney Correa RN at 05/10/2017 7:43 PM Amarilis, Yodit Ramsay MD - 05/10/2017 7:03 PM PDT HOSPITALIST progress NOTE [facility] Donita [place]worth 05/10/2017 Rounding Physician: Yodit Philippe MD Patient Name: Jacklyn Siddiqi : 1935 Medical Record: [id number] Primary Hospital Problem: Atrial fibrillation with RVR [...] Intake/Output Summary (Last 24 hours) at 05/10/17 1903 Last data filed at 05/10/17 1747 Gross [...] made to ensure accuracy; however, inadvertent computerized computer systems software architect errors and typos m ay be present Electronically signed by: Yodit Philippe MD, DATE/TIME: 05/10/2017 19:03 [facility] HOSPITALIST TEAM ania Cervantes RN - 05/10/2017 4:33 PM PDTReport to Whitney, Patient in bed resting. row, Yodit Ramsay MD - 05/10/2017 3:59 PM PDTForma tting of this note might be different from the original. [facility] Patient: Jacklyn Siddiqi : 1935: Age: 81 y.o. MedRec: [id number] PCP: Antonio Paulino MD Admission date: 05/07/2017 [...] Atrial fibrillation Confirmed by BINU MACK MD ([id number]) on 05/10/2017 5:50:22 AM No results found. [...] as outlined above. Yodit Philippe 05/10/2017 15:59 [facility] Tania House RN - 05/10/2017 2:15 PM [...] to commode and one pers on assist. quality assurance monitor chassis shows Sinus Tach with BBB. Patient on RA with sats 100%Electroni cece signed by Tania Cervantes RN at 05/10/2017 12:54 PM Yodit Olmos MD - 05/09/2017 8:11 PM PDT [facility] Patient: Jacklyn Siddiqi : 1935: Age: 81 y.o. MedRec: [id number] PCP: Antonio Paulino MD Admission date: 05/07/2017 [...] as outlined above. Yodit Philippe 06/04/2017 20:12 [facility] Nancy Perales RN - 0 05/09/2017 1:59 PM PDTEvaluated pt for PICC line, upon review of chart placed midline 4 fren ch in left cephalic. Pt Needing IV access for blood draw and occasional IVP medication.Barbara ctronically signed by Nancy Arechiga RN at 05/09/2017 2:01 PM PDTCrow, Yodit Ramsay MD - 05/08 8:15 PM PDT [facility] Patient: Jacklyn Siddiqi : 1935: Age: 81 y.o. MedRec: [id number] PCP: Antonio Paulino MD Admission date: 05/07/2017 [...] as outlined above. Yodit Philippe 06/04/2017 20:15 [facility] Mary Vargas RN - 05/08/2017 2:57 PM [...] and RT notified. O2 2 L via CONTRACT LAW SPECIALIST applied. O2 sat increased to 91%. Maintained [...] name, strength, and direction x MAR from [facility] facility: [facility] [place] Vaccines up to date? Yes No Unsure [...] performed and electronically signed by Isa Kaufman, Rail Car Repairer 16:14 Reviewed by: Dolly Rizzo, PharmD 05/07/2017 [...] remove, d[facility], son r eports pt does have open blisters to bila [...] Ramsay MD - 05/07/2017 2:14 PM PDT [facility] HISTORY AND PHYSICAL Pt. Name/Age/: Jacklyn Siddiqi [...] ulcers. He has a nonhealing ulcer ri [facility] forehead that he is told [...] cirrhosis (HCC) 2003 CT scan 2003 at [facility] CAD (coronary artery disease) 2005 Had CABG to LAD (for 80-90% LAD) surgery done at [facility] CVA (cerebral infarction) -2014 lacunar (not stated as new nor old) Dementia Diastolic CHF (HCC) Echo 2013 EF 68, ascites, pulm HTN Endocarditis 2009 Enterococcus 6 weeks Amp + Gent H/O aortic valve replacement 2004 [place] AVR INR goal is 2-3, surgery done at [facility] Hypertension Liver cirrhosis (HCC) Over-anticoagulated 04/01/2015 Peripheral [...] is not indicated. Code Status Full code. [facility] Documentation This patient is short of breath and acutely anemic with melena on warfarin with an artifici al valve in place. He is expected to pass more than two midnights in the hospital. Total of 60 minutes were required to complete the admission process. Electronically signed by: Yodit Philippe MD 05/07/2017 14:14 [facility] documented in this enc ounter Procedure [...] obtained, the patient was taken to the carpenter/labor. 1 g of cefaz jamel was given [...] pulled through into the pocket. A 6 [place]ib[place] sheath was p laced over the guidewire and the core was removed. The additional guidewires were inserted through the sheath. The sheath was then removed. The guidewires were secured by hemostat, leaving one guidewire to be utilized for placement of an 8 [place] safe sheath. A safe sheat h core [...] same technique as mentioned above, another 8 [place] safe sheath was utilized to i ntroduce [...] #: LPA 1200 M, serial #: [id number]. C. Ventricular lead: [place], length 52 cm, model #: LPA 1200M, serial #: [id number]. PACEMAKER TESTING: A. Atrial lead: Sensing 2.4 [...] obstructive sleep apnea. He was admitted to [facility] on 05/07/2017 for Atrial fibrillation with [...] cirrhosis (HCC) 2003 CT scan 2003 at [facility] CAD (coronary artery disease) 2004 Had CABG to LAD (for 80-90% LAD) surgery done at [facility] CVA (cerebral infarction) -2014 lacunar (not stated as new nor old) Dementia Diastolic CHF (HCC) Echo 2013 EF 68, ascites, pulm HTN Endocarditis 2009 Enterococcus 6 weeks Amp + Gent H/O aortic valve replacement 2004 [place] AVR INR goal is 2-3, surgery done at [facility] Hypertension Liver cirrhosis (HCC) Over-anticoagulated 04/01/2015 Peripheral [...] with Anesthesia; Surgeon: Peter Maciel MD; Location: [facility] FAMILY HISTORY [...] Oral Daily IV INFUSIONS: DOPamine Stopped (05/12/17 1045) norepinephrine Stopped (05/11/17 1270) ALLERGIES Allergies Allergen Reactions Latex Rash REVIEW [...] has lengthened Confirmed by FREDERICK CHARLTON, BINU ([id number]) on 05/13/2017 6:24:02 AM Culture, Blood Collection [...] He is in a class II of [place] Heart Association functional class. There is fluid [...] of this patient. Electronically signed by: Cruzito Brid MD [facility] 05/13/2017 7:03 Portions of this chart may have been created with SiVerion voice recognition software. Occasi onal wrong-word or sound-alike substitutions may have occurred due to the inherent carter itations of voice recognition software. Please read the chart carefully and recognize, using context, where these substitutions have occurred. Amelie Alvarez RN - 05/08/2017 11:53 AM PDTAssociated O rder(s): IP CONSULT TO WOUND OSTOMY NURSEMrJosefina Siddiqi is a [facility] who [facility] routinely, that has the Coban 2 placed every /Sat which were just placed yesterday . Per the patient he has two ulcerations to the left LE POA. His son and him do not want the wraps removed until SaturdayMay 10 please. OT and Nursing to document wound/ulcers at that session. Have requested PA medical records as well to have in the paper chart. Amelie Pack RN [facility] Ext [phone] docume nted in this encounter ED Notes [...] cirrhosis (HCC) 2003 CT scan 2003 at [facility] CAD (coronary artery disease) 2005 Had CABG to LAD (for 80-90% LAD) surgery done at [facility] CVA (cerebral infarction) -2014 lacunar (not stated as new nor old) Dementia Diastolic CHF (HCC) Echo 2013 EF 68, ascites, pulm HTN Endocarditis 2009 Enterococcus 6 weeks Amp + Gent H/O aortic valve replacement 2004 [facility] [place] AVR INR goal is 2-3, surgery done at [facility] Hypertension Liver cirrhosis (HCC) Over-anticoagulated 04/01/2015 Peripheral [...] UA, POC Negative Negative, 100 mg/dL Specific [place], UA, POC 1.025 1.001 - 1.030 Blood, [...] TEXT Not Confirmed Raphael Karimi MD 05/07/17 1246 Raphael Karimi MD 05/07/17 124 documented in this en counter Miscellaneous Notes [...] Kwok MD - 05/16/2017 2:20 PM PDT [facility] TRANSFER ORDERS Patient Name: Jacklyn Siddiqi Patient : 1935 Gender: male Date of Admission: 05/07/2017 Date of Discharge: 05/16/2017 Admitting Provider: Yodit Philippe MD Discharging Provider: Susan Vides MD Consultants: Dr Nettles PCP: Antonio Paulino [facility] transferring to: [facility] Provider after transfer: CODE STATUS: [x] Attempt CPR [] Do not resuscitate If patient is pulseless and not breathing, RN/TELETYPESETTER may pronounce . Advanced Directives included: [] [...] Reactions Latex Rash Diet: [x] As tolerated GUNNER'S MATE G may upgrade or downgrade diet as condition [...] Whole [] Thin Liquids [] Cut-up [] Moonshine Thick [] Advanced Chopped [] Honey Thickened [] Chopped [] Advanced Ground [] 1:1 feedings [] Ground/Pureed [] Other: Tube Feedings: [] PEG [] GT [] JT [] NGT [] Formula type: (Front Office Clerk may change/substitute if indicated). [] Continuous Rate: [...] & Management for: restrict ed limb [] GUNNER'S MATE G Evaluation &Management for: [] Other: Wound/Skin Care: [...] 2 times daily. aka: PACERONE By: Susan Vieds MD Quant: 14 tablet amiodarone 200 mg [...] aka: NORCO metOLazone 2.5 mg tablet aka: uSsan SAWYER MD, certify that post hospital care home care is medically nece ssary on a continuing basis for any of the conditions for which he/she received care during this hospitalization. Check one: [x] Skilled [] Intermediate Additional Orders/Instructions Physician's signature: Susan Jarvis MD05/16/2017 14:20 [facility] USE ONLY: [] Admitting orders [...] Therapy Discharge Recommendations are: Recommended discharge disposition: care home facility Post discharge physical therapy recommendation: [...] for assist for safety Bed-Chair, Level of [place]: contact guard assist, set up required, verbal cues requir ed Chair-Bed, Level of [place]: contact guard assist, set up required, verbal cues requir ed Qvv-Nepye-Pzw, Assistive Device: 2 wheeled walker (FWW) Sit-Stand, Level of [place]: contact guard assist, verbal cues required Stand-Sit, Level of [place]: contact guard assist, verbal cues required Mbq-Dyspr-Rqs, Assistive Device: 2 wheeled walker (FWW) Safety Issues: weight-shifting ability decreased Impairments: pain, strength decreased Bed Mobility increased time and need for frequent redirection Assistive Device: bed rails Supine to Sit, Level of [place]: contact guard assist Sit to Supine, Level of [place]: (NT, pt left sitting in bedside chair) [...] STG Status continued at 05/16/2017 1155 STG [place] Level modified independent, supervised at 05/09/2017 1700 STG Assistive Device 2 wheeled walker (FWW) at 05/09/2017 1700 [facility] Distance (feet) 50 at 05/09/2017 1700 Electronically signed by: Velia Gerard, PT, 05/16/2017 11:59 lan of Care - Ana Villeda i RN - 05/16/2017 10:32 AM PDTProblem: Discharge Planning Goal: Patient will be discharged in a safe manner Outcome: Improving This CM spoke with Elkin at [facility] this AM and she is ready to accept patient when he is medically stable and will arrange transport there for patient. She confirmed yahaira t they also have OT there to do his leg wraps. Efaxed the MD prog notes, PT OT notes, and med list to her. TN# [id number]. Manually faxed the completed PASRR to SNF. Pkt started and placed in ghost chart. Electronically signed by: Ana Dietrich RN 05/16/2017 10: 11:14 Left message with Elkin, at [facility], letting her know that patient will be d ischarged today and would be ready this afternoon sometime. Requested a return call with pic k up time. Elkin returned call with 1430 pickling solution maker time. Let bedside RN know. Left message with Jacklyn , letting him know that his dad will be taken to the SNF today. Pkt completed with original completed PASRR, AVS, and Trazadone script. Given to high lift driver. Fa xed SNF transfer orders to [facility] with call to Elkin.Electronically signed by: Sangita [...] expiratory wheezes/fine crackles. lan of Care - [facility] Nanda gandara RN - 05/16/2017 5:04 AM PDTProblem: Patient Care Overview (Adult) Goal: Care Team Goals & Evaluation PROBLEM-RELATED GOALS: 1. Jacklyn will have breath sounds consistent with baseline function throughout stay and rev erse airway bronchospasm when indicated. Reevaluate goal by 05/19/17. 2. Jacklyn will be free from falls by 05/14/17 3. Jacklyn will have adequate pain control 310 by 05/14/17 4. Jacklyn will have HR [...] assist with ambulation and transfers. lan of [place] - Rob Dietrich RN - 05/15/2017 5:55 [...] afternoon and let him know that the [facility] would only be a short term rehab not halfway stay and that he would have to pay for the transpor t there, since he is non-service connected, per SAMEER [place], whom this CM called to confirm this above information. Jacklyn Joiner stated that his father will not go back to [facility], so reassured him yahaira t the operations planner at [facility] would help find a lobsterman place for him since he will need to have full care for him to be safe. He understood this need. He appreciated the visit. Electronically signed by: Ana Dietrich RN 05/15/2017 17:55 lan Velia Ortega, PT - 05/15/2017 1:50 PM PDTFormatting of [...] Therapy Discharge Recommendations are: Recommended discharge disposition: care home facility Post discharge physical therapy recommendation: [...] and attending to task Bed-Chair, Level of [place]: contact guard assist, set up required, verbal cues requir ed Chair-Bed, Level of [place]: contact guard assist, set up required, verbal cues requir ed Bgj-Jrjni-Zrr, Assistive Device: 2 wheeled walker (FWW) Sit-Stand, Level of [place]: contact guard assist, verbal cues required Stand-Sit, Level of [place]: contact guard assist, verbal cues required Uai-Ndszj-Hmi, Assistive Device: 2 wheeled walker (FWW) Safety Issues: weight-shifting ability decreased Impairments: pain, strength decreased Bed Mobility increased time and need for frequent redirection Assistive Device: bed rails Supine to Sit, Level of [place]: contact guard assist Sit to Supine, Level of [place]: (NT, pt left sitting in bedside chair) [...] STG Status continued at 05/15/2017 1315 STG [place] Level modified independent, supervised at 05/09/2017 1700 STG Assistive Device 2 wheeled walker (FWW) at 05/09/2017 1700 STG Distance (feet) 50 at 05/09/2017 1700 Electronically signed by: Velia Gerard PT, 05/15/2017 15:37 lan of Care - Str k, Erin Gandara OT - 05/15/2017 9:44 AM PDTProblem: Patient [...] looking forward to go to a rehab [facility] in the future. lan of Care - Maria Antonia Bullard RRT - 05/15/2017 8:43 AM PDTProblem: Patient Care [...] ssistance with ambulation and transfers. lan of [facility] - Rob Dietrich RN - 05/14/2017 6:04 PM PDTProblem: Discharge Planning Goal: Patient will be discharged in a safe manner This CM met with patient per his request about his discharge plan. Let him know that [facility] has accepted him and he was aware [...] he did not even know that his [facility] was in the hospital again. This CM was trying to get some help as to where patient was going to go after his rehab, si nce patient stated that his other son, Jacklyn Siddiqi Jr, is currently moving out all his belo ngings out of [facility] in [place], since he is too high level of care for them any more. Spoke with Jacklyn Joiner, and put his phone numbers in the chart, OK with patient, since [facility] is the one who transports him to all his appts, etc. He stated that Jacklyn Jr, is his POA. Later this afternoon evening, patient requested that this CM [facility] him. Let patient know that this will have to be done in the AM since they are already closed today. CM will need to call the [facility] in AM to see if patient is eligible for transfer to the [facility].Electronically signed by: Ana Dietrich RN [...] expiratory phase . Requires 2 lpm at [facility] lan of Emily Herring RN - 05/14/2017 [...] physical therapy for treatment of impaired mob iliradha. Emphasis of session included therex and transfer [...] Therapy Discharge Recommendations are: Recommended discharge disposition: care home facility Post discharge physical therapy recommendation: [...] treatment from his children Bed-Chair, Level of [place]: contact guard assist, set up required, verbal cues requir ed Xad-Ggcec-Vxz, Assistive Device: 2 wheeled walker (FWW) Sit-Stand, Level of [place]: contact guard assist, verbal cues required Stand-Sit, Level of [place]: contact guard assist, verbal cues required Azz-Pbehe-Pcz, Assistive Device: 2 wheeled walker (FWW) Safety Issues: weight-shifting ability decreased Impairments: pain, strength decreased Bed Mobility increased time and need for frequent redirection Assistive Device: bed rails Supine to Sit, Level of [place]: contact guard assist Sit to Supine, Level of [place]: (NT, pt left sitting in bedside chair) [...] STG Status continued at 05/14/2017 1600 STG [place] Level modified independent, supervised at 05/09/2017 1700 [...] re questing to use commode. OT and TRANSMISSION SYSTEMS OPERATOR assisted patient with functional t/f and limited [...] bed rails Supine to Sit, Level of [place]: contact guard assist Sit to Supine, Level of [place]: contact guard assist Transfers Sit-Stand, Level of [place]: stand by assist, contact guard assist Stand-Sit, Level of [place]: stand by assist, contact guard assist Lvj-Ptywj-Ljp, Assistive Device: 2 wheeled walker (FWW) Toilet, Level of [place]: contact guard assist, stand by assist Toilet, Assistive Device: 2 wheeled walker (FWW) Impairments: pain, strength decreased OT Goal Review Date Flowsheet Row Most Recent Value STG Review Date 05/16/17 at 05/09/2017 1604 LB Dressing Goal Flowsheet Row Most Recent Value STG Status new at 05/14/2017 1045 STG [place] Level modified independent at 05/14/2017 1045 Toilet Transfer Goal Flowsheet Row Most Recent Value STG Status new at 05/14/2017 1045 STG [place] Level supervised at 05/14/2017 1045 STG Assistive [...] treat as indicated. lan of Care - Sumeet Mccullough Chaplain - 05/13/2017 8:57 PM PDT Spiritual Care Jacklyn Siddiqi is a 81 y.o. male who is admitted for Gastrointestinal hemorrhage, unspecified gastrointestinal hemorrhage type [K92.2]. Spiritual Evaluation: Patient is a "Bible Believing Confucianism" loves to pray and read the "Word." Spiritual Intervention: Listened to the patient's concerns about the upcoming procedure. Active Listening, past oral presence, and prayer was offered. Spiritual Outcomes: Patient appreciates flexographic press helper's prayer, seems less apprehensive. Spiritual Goals / Follow-up: Will see the patient as requested. If there are any other spiritual care issues that arise, please contact flexographic press helper. lan of Care - Kristina Ayers RRT [...] treatments well. lan of Care - Faith fatima Velia, PT - 05/13/2017 1:40 PM PDTFormatting of [...] Therapy Discharge Recommendations are: Recommended discharge disposition: care home facility Post discharge physical therapy recommendation: will benefit from structured setting, ongo ing low intensity therapy Equipment Recommendations: 2 wheeled walker (FWW) Planned Interventions: balance training, gait training, strengthening Recommended Frequency: daily Patient Status/Goals: Reflects last filed data and may be from multiple contributors. Gait side-stepping at bedside Level of [place]: 2 person assist required Assistive Device: 2 wheeled walker (FWW) Transfers pt weak and with dizziness, need for CGA for safety due to symptoms Sit-Stand, Level of [place]: stand by assist, contact guard assist Stand-Sit, Level of [place]: stand by assist, contact guard assist Qom-Zbvvp-Nlw, Assistive Device: 2 wheeled walker (FWW) Safety Issues: weight-shifting ability decreased Impairments: pain, strength decreased Bed Mobility increased time d/t fatigue Assistive Device: none Supine to Sit, Level of [place]: contact guard assist Sit to Supine, Level of [place]: contact guard assist Functional Endurance impaired - SOB with limited activity [facility] BASIC MOBILITY [facility] MOB[facility] Turning over in bed: [...] steps with a railing: dependent/unable TOTAL - [facility] BASIC MOBILITY : 14 Unable / dependent = 1 A lot / modA = 2 A little / Guillermo = 3 None / independent = 4 Completed the [facility] Activity Measure for Post Acute Care (AM-PAC) "6 Clicks" [facility] Mobility [...] STG Status continued at 05/12/2017 1203 STG [place] Level modified independent, supervised at 05/09/2017 1700 [...] Improving This CM called Elkin at [facility], p# [phone], and she confirmed that she has a ccepted patient at discharge for rehab. Electronically signed by: Ana Dietrich RN 05/13/2017 12 :56 lan of Care - Popeye Benito OT - 05/13/2017 12:16 [...] Alert and oriented. Calls appropriately. lan of [facility] Ronal mooney, Sumeet Truong RRT - 05/13/2017 4:47 AM PDTProblem: Patient [...] pain. lan of Care - Donato Mcqueen, VALARIE - 05/12/2017 6:09 PM PDTProblem: Patient Care [...] sleeping. lan of Care - Javier Arana, BLIND TEACHER - 05/12/2017 11:50 AM PDT Problem: Patient [...] unable to step in place Level of [place]: 2 person assist required Assistive Device: 2 wheeled walker (FWW) Distance (feet): 15, 15 Transfers pt very weak with low BP, CGA to Min Assist for sit<>stand Sit-Stand, Level of [place]: stand by assist, contact guard assist Stand-Sit, Level of [place]: stand by assist, contact guard assist Dqe-Nslvx-Uid, Assistive Device: 2 wheeled walker (FWW) Safety Issues: weight-shifting ability decreased Impairments: pain, strength decreased Bed Mobility NT; pt up in chair on arrival requested to stay up in chair post tx Assistive Device: none Supine to Sit, Level of [place]: independent Sit to Supine, Level of [place]: independent Therapeutic Exercise pt c/o of pain [...] STG Status continued at 05/12/2017 1203 STG [place] Level modified independent, supervised at 05/09/2017 1700 [...] 25-30 ml urine an hour. lan of [facility] - Nataly Rosenbaum, CITY ENGINEER - 05/12/2017 12:36 AM PDTProblem: Patient Care [...] nasal cannula lan of Care - Lisa Sherwood, SAMEER - 05/11/2017 6:58 PM PDTProblem: Patient Care [...] tare. lan of Care - Donato Mcqueen, CITY ENGINEER - 05/11/2017 4:33 PM PDTProblem: Patient Care [...] well during shift. lan of Care - Whitney Murcia RN - 05/10/2017 6:13 PM PDTProblem: Patient [...] due to fear of falling Level of [place]: 2 person assist required Assistive Device: 2 wheeled walker (FWW) Distance (feet): 15, 15 Stairs unable Bed Mobility Assistive Device: none Supine to Sit, Level of [place]: independent Sit to Supine, Level of [place]: independent Therapeutic Exercise Seated exercises: bilateral, long [...] STG Status new at 05/09/2017 1700 STG [place] Level modified independent, supervised at 05/09/2017 1700 STG Assistive Device 2 wheeled walker (FWW) at 05/09/2017 1700 STG Distance (feet) 50 at 05/09/2017 1700 Electronically signed by: Becky Jesus, PT, 05/10/2017 12:12 lan of Care - Joanna Lock RN - 05/10/2017 7:30 [...] lan of Care - Sana, Sudhakar Ac, CITY ENGINEER - 0 05/10/2017 4:23 AM PDTProblem: Patient [...] like me to [facility] [place] [facility] [place] I faxed a referral to both [facility] and placed the cover sheets and fax receipts in the ghost charts. I received a call fr adriane Granger from [facility] and she verified that she had received [...] due to fear of falling Level of [place]: 2 person assist required Assistive Device: 2 wheeled walker (FWW) Distance (feet): 15, 15 Stairs NT Bed Mobility Assistive Device: none Supine to Sit, Level of [place]: independent Sit to Supine, Level of [place]: independent Balance ongoing assessment needed Therapeutic Exercise [...] STG Status new at 05/09/2017 170 STG [place] Level modified independent, supervised at 05/09/2017 170 STG Assistive Device 2 wheeled walker (FWW) at 05/09/2017 170 STG Distance (feet) 50 at 05/09/2017 1700 Electronically signed by: Becky Jesus, PT, 05/09/2017 [...] 3. Pt will have adequate pain control /10 by [...] scheduled tomorrow as per order bu t had removed the left compression wrap to [...] and compression wrap will be changed on onday, 05/13, unless MD or patient has [...] Joanna Lock RN - 05/09/2017 6:30 AM [id number] (late entry) pt has remained in ST [...] well. lan o f Reena - Sudhakar Hood CITY ENGINEER - 05/09/2017 1:56 AM PDTProblem: Patient Care [...] was contacted and he was transferred to [place] at 1136. At about 1445 his HR increas ed to 180 and he became hypotensive. Placed in Trendelenburg position and Dr. Philippe was conta cted. Orders received for metoprolol. Converted to a sinus tach at 1500 Bp improved. No fal ls. Breath sounds dim but clear. Left leg pain has been improved and Jacklyn has had no furt her skin breakdown. eICU Uli - Toan Reynolds RN - 05/08/2017 5:42 [address] PDTDr. Jose Martin in around 1330 to Assess [...] PM PDTPlan of Care - Melinda Davis, [facility] - 05/08/2017 4:23 PM PDTProblem: Discharge Planning Goal: Patient will be discharged in a safe manner Outcome: Improving This oil field caser spoke with patient's POA and son Jacklyn Siddiqi regarding patient's discharg e plan. Son states that he now lives at [facility]. He was living at [facility] prior to [facility]. He has been living at [facility] about a month. Son states that they [...] they do go on daily walks [facility]. Son states that he would appreciate case management to [facility] as well with him in coordinating a discharge back there. Son states that he is his transp ortation and will transport him back when stable. This CM called the RN at [facility] at [phone]. Rhianna states that there has been a [...] a time to come assess patient. [facility] [...] transfer to ICU. Report called to Martha SILVEIRAEl ectronically signed by Greta Inamn RN at 05/08/2017 1:10 PM PDTeICU Note - Mary Umana RN - 05/08/2017 12:30 PM PDTPt's Telemetry reading HR 150's-200. This GLASS BEAD MAKER we nt over to assess pt. Who was lying in bed talking on the phone with a family member. He den ies chest pain, SOB and/or a fluttering feeling in his chest. SBP 108/58. Pt.'s RN is at be dside. EKG ordered and Dr. Philippe contacted about elevated HR concerns. Pt. To be transferred over to the ICU for closer monitoring. Electronically signed by Mary Cantu RN at 04/20 2:07 PM PDTD-C Instructions Provation - Peter Maciel MD - 05/08/2017 9:20 AM PDT Discharge Instructions for Upper Endoscopy Patient: Jacklyn Siddiqi : 1935 Acct: [id number] Exam Date: Monday, May 08, 2017 Doctor: Peter Maciel MD The chances of difficulty following this procedure are minimal. The following instruction s will assist you in your recovery. 1. Do Not eat or drink anything for 1 hour. Try sips of water first. If tolerated, resu me your regular diet or one recommended by your physician. 2. Do not drive, operate Third[employer], make critical decisions, or do activities that [...] If unable to reach your physician, call [facility] Emergency Department at Ext. [phone] Your doctor [...] Maciel MD at 9:45 AM PDTPlan of Care - Jacey Cuevas RN - 05/08/2017 6:16 [...] 11:10 AM PDTPt had been at the [place] this am and was heading back home an d pt fell twice this am once at the [place] once at gas station. Pt did not [...] 2019 | Monitor | | [address] | Interrogation | | | | | 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 | | | | | Persistent atrial | | | | | | fibrillation ([facility]) | | + +--------+ + + + [...] | | n - | | | 07/18/ | | | 2017 | | | [...] | | | ?MRN: | | | [id number] | | | [id number] | | | his | | | [...] | | | ent/cd | | | [id number] | | | [id number] | | | [...] | | | St. | | | [place] | | | y H. | | [...] | | | St. | | | [place] | | | y H. | | [...] | | | St. | | | [place] | | | y H. | | [...] | | | St. | | | [place] | | | y | | | [...] | | | ? | | | 2016 | | | Collec | | | [...] [address] | [place] | [phone] | | [facility] | | [address] | | | - LABORATORY | | [...] [address] | [place] | [phone] | | [facility] | | [address] | | | - LABORATORY | | [...] | | | | | mg/dL | [facility] | | | | | | MEDICAL | | | | | | CENTER - | | | | | | LABORATORY | | + + + + + + | eGFR, | 58 (L)Comment: | >=60 | [facility] | | | non- | GLOMERULAR FILTRATION | mL/min/1.73m2 | [facility] | | | [place]ian | RATE,ESTIMATED | | MEDICAL | | | | mL/min/1.18j7Mhtf than | | CENTER - | | [...] + | [facility] | [address] | [place] | [phone] | | [facility] | | [address] | | | - LABORATORY | | [...] + | [facility] [facility] | [address] | [place] | [phone] | | [facility] | | [address] | | | - LABORATORY | | [...] | | | | BINU MACK MD ([id number]) | | | | | | on [...] | | | | BINU MACK MD ([id number]) | | | | | | on [...] + | Chase Zepeda Results In - 05/14/2017 9:47 AM PDT [...] PRIMARY CARE:Antonio Joya | | | GARY PaulnioURGEON:Cruzito Bird MD DATE OF PROCEDURE: | | [...] was | | | taken to the carpenter/labor. 1 g of cefazolin was given intravenously. | | | Patient was hooked up to EKG, pulse oximetry and blood pressure | | | monitoring. All parameters were kept stable during procedure. The | | | [facility] pacemaker guest service representative was present in the operating [...] the | | | pocket. A 6 Djib[place]ian sheath was placed over the guidewire and the core | | | was removed. The additional guidewires were inserted through the | | | sheath. The sheath was then removed. The guidewires were secured | | | by hemostat, leaving one guidewire to be utilized for placement of an | | | 8 [place]ian safe sheath. A safe sheath core and [...] same technique as mentioned above, another 8 [place] safe sheath | | | was utilized [...] #: LPA 1200 M, serial #: [id number]. C. | | | Ventricular lead: [place], length 52 cm, model #: LPA 1200M, serial | | | #: [id number]. PACEMAKER TESTING: A. Atrial lead: Sensing 2.4 [...] #: PM 2272, serial #: | | |[id number]. | | | | | |B. Atrial lead: [place], length 46 cm, model #: LPA 1200 M, | | |serial #: [id number]. | | | | | |C. Ventricular lead: [place], length 52 cm, model #: LPA 1200M, | | |serial #: [id number]. | | | | | |PACEMAKER TESTING: [...] obtained, the patient was taken to the carpenter/labor. | | 1 g of cefazolin was given intravenously. Patient was hooked up to EKG, pulse oximetry | | and blood pressure monitoring. All parameters were kept stable during procedure. The | | [facility] pacemaker guest service representative was present in the operating [...] into the pocket. A 6 | | [place]ib[place]ian sheath was placed over the guidewire and the core was removed. The additional | | guidewires were inserted through the sheath. The sheath was then removed. The | | guidewires were secured by hemostat, leaving one guidewire to be utilized for placement | | of an 8 [place]ib[place]ian safe sheath. A safe sheath core and [...] as mentioned | | above, another 8 [place]ian safe sheath was utilized to introduce an [...] #: LPA 1200 M, serial #: [id number]. | | Ventricular lead: [place], length 52 cm, model #: LPA 1200M, serial #: [id number] | | [id number].PACEMAKER TESTING: A. Atrial lead: Sensing 2.4 mV, [...] + | Chase Zepeda Results In - 05/13/2017 5:40 PM PDT [...] + | [facility] | [address] | [place] | [phone] | | [facility] | | [address] | | | - LABORATORY | | [...] [place] | | | | | | [address] | | | | + + + + + + + + | Specimen | + + | Blood | + + + + + + + | Performing | Address | City/State/Zipcode | Phone Number | | Organization | | | | + + + + + | [facility] | [address] | [place] [address] | [phone] | + + + + + Ferritin (05/13/2017 10:09 AM PDT) + +-------+ + + + | Component | Value | Ref Range | Performed | Pathologist | | | | | At | Signature | + +-------+ + + + | FERRITIN | 146 | 24 - 366 ng/mL | [facility] | | | | | [...] [address] | [place] | [phone] | | [facility] | | [address] | | | - LABORATORY | | [...] | | SATURATION | | | [facility] | | [...] [address] | [place] | [phone] | | [facility] | | [address] | | | - LABORATORY | | [...] [place] | | | | | | [address] | | | | + + + + + + + + | Specimen | + + | Blood | + + + + + + + | Performing | Address | City/State/Zipcode | Phone Number | | Organization | | | | + + + + + | [facility] | [address] | [place] [address] | [phone] | + + + + + ECHO [...] | Echocardiography Report (TTE) Demographics Patient Name AMANDA | | | [place] Room Number 457 Patient Number | | | [id number] Date of Study 05/13/2017 Visit Number | | | [id number] Referring Physician | | | CRUZITO BIRD MD Number | | | MARGE FLOR Date of | | | 1935 Medical Insurance Claims Processor SHAKIRASARAH LEWIS RDCS Age | | | 81 year(s) Interpreting | | | MARGE FLOR | | | Density Control Puncher CRUZITO BIRD MD Gender | | | Male Nurse | | | Stress Heavy Equipment Sales Associate Procedure Type of Study TTE procedure: ECHO [...] | 51.23 ml | | | EF Kxyqfauyf44% Left Ventricle Diastolic Dimension: 4.23 | | [...] Volume: 51.23 ml | | | EF Zpkaznclg87% | | | | | | Left [...] + + | Chase Zepeda Results In 05/13/2017 9:57 AM PDT Transthoracic Echocardiography Report | | (TTE) Demographics Patient Name AMANDA VILLASENOR Room Number 457 Patient | | Number [id number] Date of Study 05/13/2017 Visit Number [id number] | | Referring Physician CRUZITO BIRD MD Number | | MARGE FLRO Date of 1935 | | Medical Insurance Claims Processor TRELL JOSHUA RODRIGUEZ Age 81 year(s) Interpreting | | MARGE FLOR Density Control Puncher CRUZITO | | MD MARGE Gender Male [...] LA Volume: 51.23 ml EF | | Fnndllshi20% Left Ventricle Diastolic Dimension: 4.23 cm Systolic [...] LA Volume: 51.23 ml | | EF Smmjwztnm60% | | | | Left Ventricle | [...] | | Lymphocytes | | | [facility] | | [...] Hypochromas | Slight (A) | (none) | [facility] | | | ia | | | [facility] | | [...] [address] | [place] | [phone] | | [facility] | | [address] | | | - LABORATORY | | [...] [address] | [place] | [phone] | | [facility] | | [address] | | | - LABORATORY | | [...] mL/min/1.73m2 | [facility] | | | [place]ian | RATE,ESTIMATED | | MEDICAL | | | | mL/min/1.01c9Tgra than | | CENTER - | | [...] [address] | [place] | [phone] | | [facility] | | [address] | | | - LABORATORY | | [...] ST. | [address] | [place], [place] | [phone] | | [facility] | | [address] | | | - LABORATORY | | [...] an appended report. | mg/dL | [facility] | | [...] non- | GLOMERULAR FILTRATION | mL/min/1.73m2 | [facility] | | | [place]ian | RATE,ESTIMATED | | MEDICAL | | | | mL/min/1.49f7Qztd than | | CENTER - | | [...] | 20.3Comment: This is an | | [facility] | | | ine Ratio | appended report. These | | [facility] | | | | results have been [...] + | [facility] | [address] | [place] | [phone] | | [facility] | | [address] | | | - LABORATORY | | | | + + + + + Protime INR (05/12/2017 7:42 PM PDT) + + + + + + | Component | Value | Ref Range | Performed | Pathologist | | | | | At | Signature | + + + + + + | Prothrombin | 23.6 (H) | 11.3 - 13.9 | [facility] [...] [address] | [place] | [phone] | | [facility] | | [address] | | | - LABORATORY | | [...] + | [facility] | [address] | [place] | [phone] | | [facility] | | [address] | | | - LABORATORY | | [...] | | | | incubation. | | [facility] | | | [...] ST. | [address] | [place], [place] | [phone] | | [facility] | | [address] | | | - LABORATORY | | [...] | | | | BINU MACK MD ([id number]) | | | | | | on [...] eGFR, | 41 (L)Comment: | >=60 | [facility] | | | non- | GLOMERULAR FILTRATION | mL/min/1.73m2 | [facility] | | | [place] | RATE,ESTIMATED | | MEDICAL | | | | mL/min/1.11i7Zhfm than | | CENTER - | | [...] + | [facility] | [address] | [place] | [phone] | | [facility] | | [address] | | | - LABORATORY | | [...] [address] | [place] | [phone] | | [facility] | | [address] | | | - LABORATORY | | [...] arthroplasty changes. Multiple lead wires overlie the vkxgr-rn-mlll. | | | Overall unchanged aeration of [...] | | Multiple lead wires overlie the ptgjl-dy-nogv. | | | | Overall unchanged aeration [...] + | [facility] | [address] | [place] | [phone] | | [facility] | | [address] | | | - LABORATORY | | [...] | | Cells | | M/uL | [facility] | | | | | [...] [address] | [place] | [phone] | | [facility] | | [address] | | | - LABORATORY | | | | + + + + + Magnesium (05/10/2017 8:33 PM PDT) + +-------+ + + + | Component | Value | Ref Range | Performed | Pathologist | | | | | At | Signature | + +-------+ + + + | Magnesium | 2.2 | 1.8 - 2.5 mg/dL | [facility] [...] [address] | [place] | [phone] | | [facility] | | [address] | | | - LABORATORY | | [...] (H) | 7 - 18 mg/dL | [facility] | | | | | | [facility] | | | | | | MEDICAL | | | | | | CENTER - | | | | | | LABORATORY | | + + + + + + | Creatinine | 1.28 | 0.60 - 1.30 | [facility] | | | | | mg/dL | [facility] | | | | | | MEDICAL | | | | | | CENTER - | | | | | | LABORATORY | | + + + + + + | eGFR, | 54 (L)Comment: | >=60 | [facility] | | | non- | GLOMERULAR FILTRATION | mL/min/1.73m2 | [facility] | | | [place] | RATE,ESTIMATED | | MEDICAL | | | | mL/min/1.48k9Tisc than | | CENTER - | | [...] [address] | [place] | [phone] | | [facility] | | [address] | | | - LABORATORY | | | | + + + + + PTT (05/10/2017 8:33 PM PDT) + +--------+ + + + | Component | Value | Ref Range | Performed | Pathologist | | | | | At | Signature | + +--------+ + + + | aPTT | 42 (H) | 22 - 36 seconds | [facility] [...] + | [facility] | [address] | [place] | [phone] | | [facility] | | [address] | | | - LABORATORY | | [...] + | [facility] | [address] | [place], [place] | [phone] | | [facility] | | [address] | | | - LABORATORY | | [...] | | | | BINU MACK MD ([id number]) | | | | | | on [...] | | | | BINU MACK MD ([id number]) | | | | | | on [...] [address] | [place] | [phone] | | [facility] | | [address] | | | - LABORATORY | | [...] | | Lavender | | | [facility] | | | Top Tube | [...] + | [facility] | [address] | [place] | [phone] | | [facility] | | [address] | | | - LABORATORY | | [...] [address] | [place] | [phone] | | [facility] | | [address] | | | - LABORATORY | | [...] mL/min/1.73m2 | [facility] | | | [place] | RATE,ESTIMATED | | MEDICAL | | | | mL/min/1.26i3Rlbn than | | CENTER - | | [...] City/State/[facility] | Phone Number | | Organization | | | | + + + + + | [facility] NELSON. | [address] | [place] | [phone] | | [facility] | | [address] | | | - LABORATORY | | [...] [address] | [place] | [phone] | | [facility] | | [address] | | | - LABORATORY | | [...] + | [facility] | [address] | [place] | [phone] | | [facility] | | [address] | | | - LABORATORY | | [...] ST. | [address] | [place] | [phone] | | [facility] | | [address] | | | - LABORATORY | | [...] | | | | BINU MACK MD ([id number]) | | | | | | on [...] 05/08/2017 | [facility] | | 9:20 AMMRN: [id number] #: [id number] of : | | | 3Admit Type: InpatientAge: 81Room: [facility] 02Gender: MaleNote | | | Status: FinalizedAttending MD: Peter Maciel MDProcedure: | | | Upper GI endoscopyIndications: Gastrointestinal | | | bleeding of unknown originProviders: Peter Maciel MD, | | | Malka Dueñas RN, Amelie Cabral | | | Sukumar, Heavy Equipment Sales Associate, Miguel Galicia MD | | | (Anesthesia [...] | | | the anesthesiologist and the plastics technician in the pre-procedure | | | [...] Scope In: 9:35:52 AMScope Out: 9:41:03 AM [facility]. | | | [facility], [address], [place] [address] | | | [phone] | | | - A small amount [...] |Scope Out: 9:41:03 AM | | | [facility], [address], [place] | | | [address] | | + + -+ + +---------+ [...] + | [facility] | [address] | [place] | [phone] | | [facility] | | [address] | | | - LABORATORY | | [...] | GLOMERULAR FILTRATION | mL/min/1.73m2 | [facility] | | | [place] | RATE,ESTIMATED | | MEDICAL | | | | mL/min/1.05v4Nahk than | | CENTER - | | [...] + | BUN/Creatin | 22.5 | | K[facility] | | | ine Ratio | | [...] [address] | [place] | [phone] | | [facility] | | [address] | | | - LABORATORY | | [...] + | [facility] | [address] | [place] | [phone] | | [facility] | | [address] | | | - LABORATORY | | [...] | mL/min/1.73m2 | [facility] | | | [place] | RATE,ESTIMATED | | MEDICAL | | | | mL/min/1.46o4Alac than | | CENTER - | | [...] ST. | [address] | [place], [place] | [phone] | | [facility] | | [address] | | | - LABORATORY | | [...] [address] | [place] | [phone] | | [facility] | | [address] | | | - LABORATORY | | [...] + | [facility] | [address] | [place], [place] | [phone] | | [facility] | | [address] | | | - LABORATORY | | | | + + + + + Ammonia (05/07/2017 5:24 PM PDT) + +--------+ + + + | Component | Value | Ref Range | Performed | Pathologist | | | | | At | Signature | + +--------+ + + + | Ammonia | <9 (L) | 11 - 35 umol/L | [facility] | | | | | [...] [address] | [place] | [phone] | | [facility] | | [address] | | | - LABORATORY | | [...] + | [facility] | [address] | [place] | [phone] | | [facility] | | [address] | | | - LABORATORY | | [...] [address] | [place] | [phone] | | [facility] | | [address] | | | - LABORATORY | | [...] [address] | [place] | [phone] | | [facility] | | [address] | | | - LABORATORY | | [...] | POC | | Yellow | [facility] | | | | | | MEDICAL | | | | | | CENTER - | | | | | | LABORATORY | | + + + + + + | Clarity, | Clear | | [facility] | | | UA, POC | | | [facility] | | [...] - 1.030 | [facility] | | | [place], | | | [facility] | | [...] [address] | [place] | [phone] | | [facility] | | [address] | | | - LABORATORY | | [...] | | | | BINU MACK MD ([id number]) | | | | | | on [...] | | | | | | [employer] | | | | | [...] ST. | [address] | [place] | [phone] | | [facility] | | [address] | | | - LABORATORY | | | | + + + + + Raina LORA (05/07/2017 11:35 AM PDT) + + + [...] [address] | [place] | [phone] | | [facility] | | [address] | | | - LABORATORY | | [...] mL/min/1.73m2 | [facility] | | | [place] | RATE,ESTIMATED | | MEDICAL | | | | mL/min/1.33g2Rgpp than | | CENTER - | | [...] [address] | [place] | [phone] | | [facility] | | [address] | | | - LABORATORY | | [...] [address] | [place] | [phone] | | [facility] | | [address] | | | - LABORATORY | | [...] PRN, Pain, Fever, Starting | | | e 05/14/17 at 0903, | | | Post-op/Phase [...] | | | | PRN, Wheezing, Starting Tu | | | | | | | [...] | | | | First dose on [facility] 05/09/17 at 2100 | | | | | [...] | | +-------+ +------+---+---+ | Given | 07/24/20 | 5 mg | | | | [...] | | +---+---+ + +-------+ +--------+---+---+ | fentaNYL (PF) injection ONCE | Given | 05/14/20 | 25 mcg | | | | PRN, Starting 05/14/17 at | | 17 7:51 | | | | | 0737, Intra-op | | AM PDT | | | | + +-------+ +--------+---+---+ +-------+ +--------+---+---+ | Given | 05/14/20 | 25 mcg | | | | | 17 7:47 | | | | | | AM PDT | | | | +-------+ +--------+---+---+ | Given | 05/14/20 | 25 mcg | | | | | 17 7:37 | | | | | | AM [...] | | | | | 05/07/17 at 2023 | | | | | | + [...] | | +---+---+ + +-------+ +--------+---+---+ | iohexol (OMNIPAQUE 350) 350 | Given | 05/14/20 | 18 mLs | | | | mg/mL injection ONCE PRN, | | 17 7:41 | | | | | Starting 05/14/17 at 0741, | | AM PDT | | | | | Intra-op | | | | | | + +-------+ +--------+---+---+ +---+---+ | | | +---+---+ + +-------+ +-------+---+ + | lidocaine 1% 30 mL in | Given | 05/14/20 | 4 mLs | | Surgical | | bupivacaine (PF) (MARCAINE) 0.5% | | 17 8:16 | | | Site | | 30 mL Optesia Mixture ONCE PRN, | | AM PDT | | | | | Starting 05/14/17 at 0745, | | | | | | | Intra-op | | | | | | + +-------+ +-------+---+ + +-------+ +--------+---+ + | Given | 05/14/20 | 40 mLs | | Surgical | | | 17 7:45 | | | Site | | | AM PDT | | | | +-------+ +--------+---+ + +---+---+ | | | +---+---+ + +-------+ +--------+---+ + | lidocaine buffered 1% injection | Given | 05/14/20 | 10 mLs | | Surgical | | ONCE PRN, Starting 05/14/17 | | 17 7:40 | | | Site | | at 0740, Intra-op | | AM PDT | | | | + +-------+ +--------+---+ [...] | | +---+---+ + +-------+ +--------+---+---+ | midazolam (VERSED) 1 mg/mL | Given | 05/14/20 | 0.5 mg | | | | injection ONCE PRN, Starting Tue | | 17 7:37 | | | | | 05/14/17 at 0737, Intra-op | | AM PDT | | | [...] | | | | | | Starting Sat05/10/17 at 1930, | | | | | [...]
--- OUTSIDE RECORDS SUMMARY | ~2020-06-28 | XMS | Encounter Summary ---
Demographics + + + | Address | [address] | | | [place] [address] | + + + | Home Phone [...] Team Providers + +------+ + | Care Choke Setter Name | Role | Phone | + +------+ + | Emelina Robertson MD | PCP | Unavailable | + +------+ + Encounter Details +--------+ + + + + | Date | Type | Department | Care Team | Description | +--------+ + + + + | 03/21/ | Hospital | [facility] | Wilfredo Woodson, | | | 2016 | Encounter | [facility] | PT [address] | | | | | PHYSICAL THERAPY | [place] | | | | | [address] [place] | [address] | | | | | [place] [address] | | | | | | [phone] | | | +--------+ + + + [...] Dx); | | | | | [place] [address] | Pacemaker Dual | | | | | [phone] | Chamber, MRI | | | | | | compatible, 05/14/17 | | | | | | [facility]; | | | | | | 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
--- OUTSIDE RECORDS SUMMARY | ~2020-06-28 | XMS | Encounter Summary ---
Demographics + + + | Address | [address] | | | [place] [address] | + + + | Home Phone | | + + + | Preferred Language | Unknown | + + + | Marital Status | | + + + | Mandaen Affiliation | [id number] | + + + [...] Team Providers + +------+ + | Care Canal Equipment Maintenance Supervisor Name | Role | Phone | [...] Hospital | [facility] | Raphael Karimi, | Gastrointestinal | | 2017 - | Encounter | MED CTR ICU [address] | hemorrhage, | | | | [place], | [place], [place] | unspecified | | 05/16/ | | [place] [address] | [id number] | gastrointestinal | | 2017 | | [phone] | | hemorrhage type | | | | | Yodit Philippe MD | (Primary Dx); Atrial | | | | | [address] | fibrillation with | | | | | [place], [place] | RVR ([facility]); Acute on | | | | | [address] [address], | 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 1935 Admit date: 05/07/2017 Discharge [...] significantly so this was dis continued. The solar panel installation supervisor recommended putting in a permanent pacemaker and [...] Care Everywhere.Pacemaker Impla ntation, Discharge Instructions for (Maori)documented in this encounter Medications at Time of [...] + documented as of this encounter Progress Yodit Arana MD - 06/04/2017 8:18 PM PDT [facility] Patient: Jacklyn Siddiqi : 1935: Age: 81 y.o. MedRec: [id number] PCP: Antonio Paulino MD Admission date: 05/07/2017 [...] as outlined above. Yodit Philippe 06/04/2017 20:18 [facility] Shawn Lewis, [facility] Personal Assistant - 05/16/2017 9:29 AM PDTFormatting of this [...] range of 2-3 for aortic valve replacement Grover the drug-drug interaction between warfarin and amiodarone will restart warfarin at a lower dose compared to their home dose. Pending INR with am labs tomorrow will dose increase. Patient eating 100 %. Plan: 1. Warfarin 2.5 mg po daily 2. Medication profile reviewed for potential drug-drug interactions 3. Labs in am: INR 4. Warfarin education received NO- well logging captain mud analysis. 5. Pharmacist to follow daily Warfarin Dosing Nomogram Warfarin Dosing Expectations Per P&T-approved Electronically signed by: Shawn Mercedes, Health Plan Specialist 05/16/2017 9:29 Michael Giang MD - 05/16/2017 [...] DOPamine Stopped (05/12/17 0745) norepinephrine Stopped (05/11/17 9365) OBJECTIVE: PHYSICAL EXAM Latest VS: BP 121/41 [...] He is in a class IIo f [place] [employer] functional class. There is mild [...] made to ensure accuracy; however, inadvertent computerized ultrasound technologist errors may be pre sent. Electronically signed by: Cruzito Bird MD 05/16/2017 7:18 Susan Diaz MD - 05/15/2017 7:43 PM PDT [facility] Patient: Jacklyn Siddiqi : 1935: Age: 81 y.o. MedRec: [id number] PCP: Antonio Paulino MD Admission date: 05/07/2017 [...] ou tlined above. Susan Vides 05/15/2017 19:43 [facility] Jessica Rivas, PharmD - 05/15/2017 7:41 [...] 4. Warfarin education received NO- well logging captain mud analysis. 5. Pharmacist to follow daily Warfarin Dosing [...] Sinus rhythm Confirmed by BINU MACK MD ([id number]) on 05/15/2017 5:56:04 AM ECG 12 lead [...] Sinus rhythm Confirmed by BINU MACK MD ([id number]) on 05/15/2017 5:57:23 AM CBC no Differential [...] He is in a class IIo f [place] [employer] functional class. There is mild [...] made to ensure accuracy; however, inadvertent computerized ultrasound technologist errors may be pre sent. Electronically signed by: Cruzito Bird MD 05/15/2017 6:36 Susan Diaz MD - 05/14/2017 8:48 PM PDT [facility] Patient: Jacklyn Siddiqi : 1935: Age: 81 y.o. MedRec: [id number] PCP: Antonio Paulino MD Admission date: 05/07/2017 [...] ou tlined above. Susan Vides 05/14/2017 20:48 [facility] Jessica Rivas PharmD - 05/14/2017 4:08 [...] 4. Warfarin education received NO- well logging captain mud analysis. 5. Pharmacist to follow daily Warfarin Dosing [...] were discussed with the patient in [facility]. The patient decides to proceed with the procedure. 2. Resume Coumadin after procedure today. 3. Start amiodarone oral loading today to treat A. fib with RVR. Portions of this report were transcribed using voice recognition software. Every effort wa s made to ensure accuracy; however, inadvertent computerized ultrasound technologist errors may be pre sent. Electronically signed by: Cruzito Bidr MD 05/14/2017 6:25 row, Yodit Ramsay MD - 05/13/2017 7:23 AM PDTForm atting of this note might be different from the original. [facility] Patient: Jacklyn Siddiqi : 1935: Age: 81 y.o. MedRec: [id number] PCP: Antonio Paulino MD Admission date: 05/07/2017 [...] has lengthened Confirmed by BINU MACK MD ([id number]) on 05/13/2017 6:24:02 AM Culture, Blood Result [...] arthroplasty changes. Multiple lead wires overlie the iyotf-tp-inow. Overall unchanged aeration of the lungs with [...] apnea) Patient was tested (positive) at the [facility], w as provided with CPAP, slept [...] awake and requires oxygen when a sleep. B-TAPPER HAND 488 on arrival. Echo 02/2017 showed EF [...] Pulmonary HTN Mild to severe by echo [id number]. Never smoked tobacco and no documente d [...] associated falls, on e occurring at the [facility] the day of admission and one [...] as outlined above. Yodit Philippe 05/13/2017 7:23 [facility] row, Yodit Ramsay MD - 0 05/12/2017 10:27 AM PDT [facility] Patient: Jacklyn Siddiqi : 1935: Age: 81 y.o. MedRec: [id number] PCP: Antonio Paulino MD Admission date: 05/07/2017 [...] arthroplasty changes. Multiple lead wires overlie the lvupn-nk-syox. Overall unchanged aeration of the lungs with [...] as outlined above. Yodit Philippe 05/12/2017 10:27 [facility] row, Yodit Ramsay MD - 0 05/11/2017 2:21 PM PDT [facility] Patient: Jacklyn Siddiqi : 1935: Age: 81 y.o. MedRec: [id number] PCP: Antonio Paulino MD Admission date: 05/07/2017 [...] with rate 70-80 on dopamine 5 mcg/min. [place] systolic valve cli ck at [facility]SB. Respiratory: [...] arthroplasty changes. Multiple lead wires overlie the mqfwf-qy-bhpu. Overall unchanged aeration of the lungs with [...] as outlined above. Yodit Philippe 05/11/2017 14:[address] [facility] R N - 05/10/2017 7:34 [...] 05/10/2017 7:03 PM PDT HOSPITALIST progress NOTE [facility] Donita Duckworth 05/10/2017 Rounding Physician: Yodit Philippe MD Patient Name: Jacklyn Siddiqi : 1935 Medical Record: [id number] [facility] Problem: Atrial fibrillation with RVR [...] Flow (L/min) Av.4 Min: 1 Max: 3 07/20 0701 - 05/10 1900 In: 450 [P.O.:450] [...] made to ensure accuracy; however, inadvertent computerized ultrasound technologist errors and typos m ay be present Electronically signed by: Yodit Philippe MD, DATE/TIME: 05/10/2017 19:03 [facility] HOSPITALIST TEAM Tania House RN - 05/10/2017 4:33 PM [facility]TReport [facility] bed resting. Yodit Olmos MD - 05/10/2017 3:59 PM PDTForma tting of this note might be different from the original. [facility] Patient: Jacklyn Siddiqi : 1935: Age: 81 y.o. MedRec: [id number] PCP: Antonio Paulino MD Admission date: 05/07/2017 [...] Atrial fibrillation Confirmed by BINU MACK MD ([id number]) on 05/10/2017 5:50:22 AM No results found. [...] as outlined above. Yodit Philippe 05/10/2017 15:59 [facility] Tania House RN - 05/10/2017 2:15 [...] to commode and one pers on assist. lunchroom monitor shows Sinus Tach with BBB. Patient on RA with sats 100%Electroni cece signed by Tania Cervantes RN at 05/10/2017 12:54 PM PDTCrow, Yodit Ramsay MD - 05/09/2017 8:11 PM PDT [facility] Patient: Jacklyn Siddiqi : 1935: Age: 81 y.o. MedRec: [id number] PCP: Antonio Paulino MD Admission date: 05/07/2017 [...] as outlined above. Yodit Philippe 06/04/2017 20:12 [facility] Nancy Perales RN - 0 05/09/2017 [...] Siddiqi : 1935: Age: 81 y.o. MedRec: [id number] PCP: Antonio Paulino MD Admission date: 05/07/2017 [...] as outlined above. Yodit Philippe 06/04/2017 20:15 [facility] Mary Vargas RN - 05/08/2017 2:57 PM PDTPlaced patient in trendelenburg. Mary Vargas RN - 05/08/2017 2:25 PM PDTReadjusted bp cuff and repositioned arm for this reading.Electro nically signed by Mary Cortes RN at 05/08/2017 2:25 PM Jacey Guerin RN - 05/08/20 2:34 AM PDTPt maintained on Octreotide infusion as ordered. Pt c/o "not getting enough a ir in" at 2100h. O2 sat 85% on room air. Pt repositioned in bed and RT notified. O2 2 L via TAPPER HAND applied. O2 sat increased to 91%. Maintained [...] and direction [facility] [place] Vaccines up to date? Yes No Unsure [...] performed and electronically signed by Isa Kaufman, Physician/Internist 16:14 Reviewed by: Dolly Rizzo, PharmAsaf 05/07/2017 [...] remove, d/t just being placed today at [place], son r brianrts pt does have open blisters to bila [...] Ramsay MD - 05/07/2017 2:14 PM PDT [facility] HISTORY AND PHYSICAL [...] convenience store. Usually receives care at the [place] or nearer his home. He resides in [...] History: Procedure Laterality Date CARDIAC SURGERY 2005 [place] says CABG [address] [facility] [place] AVR FAMILY [...] is not indicated. Code Status Full code. [facility] Documentation This patient is short of breath and acutely anemic with melena on warfarin with an artifici al valve in place. He is expected to pass more than two midnights in the hospital. Total of 60 minutes were required to complete the admission process. Electronically signed by: Yodit Philippe MD 05/07/2017 14:14 [facility] documented in this enc ounter Procedure [...] obtained, the patient was taken to the cleaner laboratory equipment. 1 g of cefaz jamel was given [...] Rupert, model #: PM 2272, serial #: [id number]. B. Atrial lead: [place], length 46 cm, model #: LPA 1200 M, serial #: [id number]. C. Ventricular lead: [place], length 52 cm, model #: LPA 1200M, serial #: [id number]. PACEMAKER TESTING: A. Atrial lead: Sensing 2.4 [...] obstructive sleep apnea. He was admitted to [facility] on 05/07/2017 for Atrial fibrillation with RVR [...] problems with hypotension. Amiodarone was started. H radhaever, he developed a severe bradycardia with hypotension, [...] with Anesthesia; Surgeon: Peter Maciel MD; Location: [facility] MEDICAL PROCED [facility] FAMILY HISTORY [...] Oral Daily IV INFUSIONS: DOPamine Stopped (05/12/17 8427) norepinephrine Stopped (05/11/17 2828) ALLERGIES Allergies Allergen Reactions Latex Rash REVIEW [...] developed, well nourished, well groomed, no ac [place] distress Cardiovascular NYHA Class: II- Symptoms with [...] has lengthened Confirmed by FREDERICK CHARLTON, BINU ([id number]) on 05/13/2017 6:24:02 AM Culture, Blood Collection [...] He is in a class II of [place] [employer] functional class. There is fluid [...] patient. Electronically signed by: Cruzito Bird MD [facility] 05/13/2017 7:03 Portions of this chart may have been created with GreenGar voice recognition software. Occasi onal wrong-word or sound-alike substitutions may have occurred due to the inherent carter itations of voice recognition software. Please read the chart carefully and recognize, using context, where these substitutions have occurred. Amelie Alvarez RN - 05/08/2017 11:53 AM PDTAssociated O rder(s): IP CONSULT TO WOUND OSTOMY NURSEJosefina Siddiqi is a [place] patient who is seen at the [facility] routinely, that has the Coban 2 placed every /Sat which were just placed yesterday . Per the patient he has two ulcerations to the left LE POA. His son and him do not want the wraps removed until SaturdayMay 10 please. OT and Nursing to document wound/ulcers at that session. Have requested [place] medical records as well to have in the paper chart. Amelie Pack RN [facility] Ext [phone] docume nted in this encounter ED Notes [...] Dictated and Signed by: Dion Whitehead MD Electroni [facility] signed: 05/07/2017 12:24 PM Xr Chest Ap [...] UA, POC Negative Negative, 100 mg/dL Specific [place], UA, POC 1.025 1.001 - 1.030 Blood, [...] Dr Nettles PCP: Antonio Paulino [facility] transferring to: [facility] Provider after transfer: CODE STATUS: [x] Attempt CPR [] Do not resuscitate If patient is pulseless and not breathing, RN/SUPERVISOR SPEECH may pronounce . Advanced Directives included: [] [...] Reactions Latex Rash Diet: [x] As tolerated FREIGHT ENGINEER may upgrade or downgrade diet as condition [...] Whole [] Thin Liquids [] Cut-up [] Conestee Thick [] Advanced Chopped [] Honey Thickened [] Chopped [] Advanced Ground [] 1:1 feedings [] Ground/Pureed [] Other: Tube Feedings: [] PEG [] GT [] JT [] NGT [] Formula type: (Archivist Economic History may change/substitute if indicated). [] Continuous Rate: [...] & Management for: restrict ed limb [] FREIGHT ENGINEER Evaluation &Management for: [] Other: Wound/Skin Care: [...] Diagnosis/Indication Follow up appointments and consultations: Date/Time: DrJosefina Date/Time I have advised this patient that [...] Susan SAWYER MD, certify that post hospital jail care is medically nece ssary on a [...] Therapy Discharge Recommendations are: Recommended discharge disposition: jail facility Post discharge physical therapy recommendation: will [...] for assist for safety Bed-Chair, Level of [employer] [place]: contact guard assist, set up required, verbal cues requir ed Chair-Bed, Level of [place]: contact guard assist, set up required, verbal cues requir ed Qjw-Defug-Iuo, Assistive Device: 2 wheeled walker (FWW) Sit-Stand, Level of [employer] [place]: contact guard assist, verbal cues required Stand-Sit, Level of [place]: contact guard assist, verbal cues required Fee-Otlma-Vvc, Assistive Device: 2 wheeled walker (FWW) Safety Issues: weight-shifting ability decreased Impairments: pain, strength decreased Bed Mobility increased time and need for frequent redirection Assistive Device: bed rails Supine to Sit, Level of [employer] [place]: contact guard assist Sit to Supine, Level of [place]: (NT, pt left sitting in bedside chair) [...] STG Status continued at 05/16/2017 1155 [address] [place] Level modified independent, supervised at 05/09/2017 1700 [...] Improving This CM spoke with Elkin at [facility] this AM and she is ready to accept patient when he is medically stable and will arrange transport there for patient. She confirmed yahaira t they also have OT there to do his leg wraps. Efaxed the MD prog notes, PT OT notes, and med list to her. TN# [id number]. Manually faxed the completed PASRR to SNF. Pkt started and placed in ghost chart. Electronically signed by: Ana Dietrich RN 05/16/2017 10:27 11:14 Left message with Elkin, at [facility], letting her know that patient will be d ischarged today and would be ready this afternoon sometime. Requested a return call with [facility] k up time. Elkin returned call with 1430 pickling tank operator time. Let bedside RN know. Left message with Jr Jacklyn, letting him know that his dad will be taken to the SNF today. Pkt completed with original completed PASRR, AVS, and Trazadone script. Given to electric lift truck driver. Fa xed SNF transfer orders [...] liter/minute, BS expiratory wheezes/fine crackles. lan of [facility] Nanda gandara RN - 05/16/2017 5:04 [...] [facility] - Rob Dietrich RN - 05/15/2017 5:55 PM PDTProblem: Discharge Planning Goal: Patient will be discharged in a safe manner Outcome: Improving This CM met with patient's son, Jacklyn Joiner, today. Kelly from the [facility], p# , faxed the paperwork to [...] afternoon and let him know that the [facility] would only be a short term rehab not intermediate designer stay and that he would have to pay for the transpor t there, since he is non-service connected, per SAMEER [place], whom this called to confirm this above information. Jacklyn Joiner stated that his father will not go back to [facility], so reassured him yahaira t the logistics planner at [facility] would help find a fci place for him since he will need [...] for activity tolerance and pregait activity. Mary ent ornery during session with c/o of nursing staff [...] Therapy Discharge Recommendations are: Recommended discharge disposition: jail facility Post discharge physical therapy recommendation: will [...] and attending to task Bed-Chair, Level of [employer] [place]: contact guard assist, set up required, verbal cues requir ed Chair-Bed, Level of [employer] [place]: contact guard assist, set up required, verbal cues requir ed Ogj-Gjnpz-Cgr, Assistive Device: 2 wheeled walker (FWW) Sit-Stand, Level of [employer] [place]: contact guard assist, verbal cues required Stand-Sit, Level of [employer] [place]: contact guard assist, verbal cues required Ryf-Dnrne-Ryw, Assistive Device: 2 wheeled walker (FWW) Safety Issues: weight-shifting ability decreased Impairments: pain, strength decreased Bed Mobility increased time and need for frequent redirection Assistive Device: bed rails Supine to Sit, Level of [employer] [place]: contact guard assist Sit to Supine, Level of [employer] [place]: (NT, pt left sitting in bedside chair) [...] STG Status continued at 05/15/2017 1315 [address] [place] Level modified independent, supervised at 05/09/2017 1700 [...] looking forward to go to a rehab [facility] in the future. lan of Care - Maria Antonia Bullard, SCHOLASTIC APTITUDE TEST GRADER - 05/15/2017 8:43 AM PDTProblem: Patient Care [...] not require oxygen last night lan of Nanda Bhardwaj RN - 05/15/2017 5:41 AM PDTProblem: Patient [...] his discharge plan. Let him know that [facility] has accepted him and he was [...] did not even know that his formerly [facility] er was in the hospital again. This CM was trying to get some help as to where patient was going to go after his rehab, si nce patient stated that his other son, Jacklyn Siddiqi Jr, is currently moving out all his belo ngings out of [facility] in [place], since he is too high level of [...] [facility] any bed for him. Let patient know that this will have to be done in the AM since they are already closed today. CM will need to call the [facility] in AM to see if patient is eligible for transfer to the [facility].Electronically signed by: Ana Dietrich RN 05/14/2017 18:04 lan of Care - Aleah, Erika Joya SCHOLASTIC APTITUDE TEST GRADER - 05/14/2017 5:40 PM PDTProblem: Patient Care [...] expiratory phase . Requires 2 lpm at [facility] lan of Care - Emily Price [...] Therapy Discharge Recommendations are: Recommended discharge disposition: jail facility Post discharge physical therapy recommendation: will [...] treatment from his children Bed-Chair, Level of [employer] [place]: contact guard assist, set up required, verbal cues requir ed Lfr-Ssvai-Igv, Assistive Device: 2 wheeled walker (FWW) Sit-Stand, Level of [employer] [place]: contact guard assist, verbal cues required Stand-Sit, Level of [employer] [place]: contact guard assist, verbal cues required Fxp-Hhrbk-Xom, Assistive Device: 2 wheeled walker (FWW) Safety Issues: weight-shifting ability decreased Impairments: pain, strength decreased Bed Mobility increased time and need for frequent redirection Assistive Device: bed rails Supine to Sit, Level of [employer] [place]: contact guard assist Sit to Supine, Level of [employer] [place]: (NT, pt left sitting in bedside chair) [...] STG Status continued at 05/14/2017 [address] [place] Level modified independent, supervised at 05/09/2017 1700 STG Assistive Device 2 wheeled walker (FWW) at 05/09/2017 1700 [facility] Distance (feet) 50 at 05/09/2017 1700 [...] re questing to use commode. OT and AIRBORNE OPERATIONS SUPERINTENDENT assisted patient with functional t/f and limited [...] bed rails Supine to Sit, Level of [employer] [place]: contact guard assist Sit to Supine, Level of [employer] [place]: contact guard assist Transfers Sit-Stand, Level of [employer] [place]: stand by assist, contact guard assist Stand-Sit, Level of [employer] [place]: stand by assist, contact guard assist Bfr-Mduta-Viz, Assistive Device: 2 wheeled walker (FWW) Toilet, Level of [employer] [place]: contact guard assist, stand by assist Toilet, Assistive Device: 2 wheeled walker (FWW) Impairments: pain, strength decreased OT Goal Review Date Flowsheet Row Most Recent Value STG Review Date 05/16/17 at 05/09/2017 1604 LB Dressing Goal Flowsheet Row Most Recent Value STG Status new at 05/14/2017 1045 [address] [place] Level modified independent at 05/14/2017 1045 Toilet Transfer Goal Flowsheet Row Most Recent Value STG Status new at 05/14/2017 1045 STG [place] Level supervised at 05/14/2017 1045 STG Assistive [...] planned pacemaker placement this morning. lan of Reena - Sumeet Jeronimo RRT - 2016 3:28 [...] and treat as indicated. lan of Reena Bermeo on, Chaplain Varun - 05/13/2017 8:57 PM PDT Spiritual Care Jacklyn Siddiqi is a 81 y.o. male who is admitted for Gastrointestinal hemorrhage, unspecified gastrointestinal hemorrhage type [K92.2]. Spiritual Evaluation: Patient is a "Bible Believing Latter-Day" loves to pray and read the "Word." Spiritual Intervention: Listened to the patient's concerns about the upcoming procedure. Active Listening, past oral presence, and prayer was offered. Spiritual Outcomes: Patient appreciates journeyman lineman's prayer, seems less apprehensive. Spiritual Goals / Follow-up: Will see the patient as requested. If there are any other spiritual care issues that arise, please contact journeyman lineman. lan of Care - Kristina Ayers, SCHOLASTIC APTITUDE TEST GRADER - 05/13/2017 3:57 PM PDTProblem: Patient Care [...] Therapy Discharge Recommendations are: Recommended discharge disposition: jail facility Post discharge physical therapy recommendation: will benefit from structured setting, ongo ing low intensity therapy Equipment Recommendations: 2 wheeled walker (FWW) Planned Interventions: balance training, gait training, strengthening Recommended Frequency: daily Patient Status/Goals: Reflects last filed data and may be from multiple contributors. Gait side-stepping at bedside Level of [place]: 2 person assist required Assistive Device: 2 wheeled walker (FWW) Transfers pt weak and with dizziness, need for CGA for safety due to symptoms Sit-Stand, Level of [employer] [place]: stand by assist, contact guard assist Stand-Sit, Level of [place]: stand by assist, contact guard assist Gim-Sctwl-Nhh, Assistive Device: 2 wheeled walker (FWW) Safety Issues: weight-shifting ability decreased Impairments: pain, strength decreased Bed Mobility increased time d/t fatigue Assistive Device: none Supine to Sit, Level of [employer] [place]: contact guard assist Sit to Supine, Level of [employer] [place]: contact guard assist Functional Endurance impaired - SOB with limited activity [facility] Turning over in bed: [...] steps with a railing: dependent/unable TOTAL - [facility] : 14 Unable / dependent = 1 A lot / modA = 2 A little / Guillermo = 3 None / independent = 4 Completed the [facility] Activity Measure for Post Acute Care (-PAC) "6 Clicks" [facility] Mobility Inpatient Short Form. This version of the AM-PAC is an assessment tool used to measure a person's level of disability in performing basic mobility tasks. This patient's score indicates a performance of 61.29% impairment in the functioning of basic mobility. Raw Score - Functional Limitation % (for [facility]) - "Severity Modifier" CN 6 - 100.00 [...] STG Status continued at 05/12/2017 1203 STG [place] Level modified independent, supervised at 05/09/2017 1700 [...] Elkin at [facility], p# [phone], and she confirmed that she has a [...] appropriately. lan of Care - Sumeet Burr, SCHOLASTIC APTITUDE TEST GRADER - 05/13/2017 4:47 AM PDTProblem: Patient Care [...] sleeping. lan of Care - Javier Arana, POWERHOUSE OPERATOR - 05/12/2017 11:50 AM PDT Problem: [...] unable to step in place Level of [employer] [place]: 2 person assist required Assistive Device: 2 wheeled walker (FWW) Distance (feet): 15, 15 Transfers pt very weak with low BP, CGA to Min Assist for sit<>stand Sit-Stand, Level of [employer] [place]: stand by assist, contact guard assist Stand-Sit, Level of [employer] [place]: stand by assist, contact guard assist [id number], Assistive Device: 2 wheeled walker (FWW) Safety Issues: weight-shifting ability decreased Impairments: pain, strength decreased Bed Mobility NT; pt up in chair on arrival requested to stay up in chair post tx Assistive Device: none Supine to Sit, Level of [employer] [place]: independent Sit to Supine, Level of [employer] [place]: independent Therapeutic Exercise pt c/o of pain [...] STG Status continued at 05/12/2017 1203 STG [place] Level modified independent, supervised at 05/09/2017 1700 [...] urine an hour. lan of Care - [facility] amina Nathanigor Mccormick, SCHOLASTIC APTITUDE TEST GRADER - 05/12/2017 12:36 AM PDTProblem: Patient Care [...] tare. lan of Care - Donato Mcqueen, SCHOLASTIC APTITUDE TEST GRADER - 05/11/2017 4:33 PM PDTProblem: Patient Care [...] pt tolerated well. Elect ronically signed by Joanan Salazar, RN at 05/11/2017 7:06 AM PDTPlan [...] due to fear of falling Level of [employer] [place]: 2 person assist required Assistive Device: 2 wheeled walker (FWW) Distance (feet): 15, 15 Stairs unable Bed Mobility Assistive Device: none Supine to Sit, Level of [employer] [place]: independent Sit to Supine, Level of [employer] [place]: independent Therapeutic Exercise Seated exercises: bilateral, long [...] STG Status new at 05/09/2017 170 STG [place] Level modified independent, supervised at 05/09/20171699 STG Assistive Device 2 wheeled walker (FWW) at 05/09/20171699 STG Distance (feet) 50 at 05/09/20171699 Electronically signed by: Becky Jesus PT, 05/10/2017 12:12 lan of Joanna Manning [...] non adherent drsg. lan of Sudhakar Dahl, SCHOLASTIC APTITUDE TEST GRADER - 0 05/10/2017 4:23 AM PDTProblem: Patient [...] they would like me to [facility] [place] [facility] [place] and placed the cover sheets and fax receipts in the ghost charts. I received a call fr adriane Granger from [facility] and she verified that she had received it. I will follow up with both of them tomorrow. There were no other questions or needs at this time. Jose cece signed by: Irais Travis RN 05/09/2017 18:14 [...] due to fear of falling Level of [employer] [place]: 2 person assist required Assistive Device: 2 wheeled walker (FWW) Distance (feet): 15, 15 Stairs NT Bed Mobility Assistive Device: none Supine to Sit, Level of [employer] [place]: independent Sit to Supine, Level of [employer] [place]: independent Balance ongoing assessment needed Therapeutic Exercise [...] STG Status new at 05/09/2017 1700 STG [place] Level modified independent, supervised at 05/09/2017 1700 [...] eval scheduled tomorrow as per order bu leidy CHARLTON had removed the left compression wrap to [...] Joanna Manning RN - 05/09/2017 6:30 AM [id number] (late entry) pt has [facility] in [facility] ft, HR 102-110, BBB, occasional multifocal [...] was contacted and he was transferred to [place] at 1136. At about 1445 his HR [...] PM PDTPlan of Care - Melinda Davis, BLOOD BANK MANAGER - 05/08/2017 4:23 PM PDTProblem: Discharge Planning Goal: Patient will be discharged in a safe manner Outcome: Improving This case mgr spoke with patient's POA and son Jacklyn Siddiqi regarding patient's discharg e plan. Son states that he now lives at [facility]. He was living at [facility] prior to [facility]. He has been living at [facility] about a month. Son states that they [...] they do go on daily walks around [facility]. Son states that he would appreciate case management to follow up with the RN at [facility] as well with him in coordinating a discharge back there. Son states that he is his transp ortation and will transport him back when stable. [phone]. Rhianna states that there has been a [...] a time to come assess patient. If [facility] will not accept this patient back to their [facility], we may need to consider a SNF. [...] PM PDTPt's Telemetry reading HR 150's-200. This DIRECTOR OF MECHANICAL ENGINEERING we nt over to assess pt. Who was lying in bed talking on the phone with a family member. He den ies chest pain, SOB and/or a fluttering feeling in his chest. SBP 108/58. Pt.'s RN is at [facility]. EKG ordered and Dr. Philippe contacted about elevated HR concerns. Pt. To be transferred over to the ICU for closer monitoring. Electronically signed by Mary Cantu RN at 04/20 2:07 PM PDTD-C Instructions Provation - Peter Maciel MD - 05/08/2017 9:20 AM PDT Discharge Instructions for Upper Endoscopy Patient: Jacklyn Siddiqi : 1935 Acct: [id number] Exam Date: Monday, May 08, 2017 Doctor: [...] If unable to reach your physician, call [facility] Emergency Department at Ext. 2500 [...] 11:10 AM PDTPt had been at the [place] this am and was heading back home [...] Dx); | | | | | [place] [address] | Pacemaker Dual | | | | | [phone] | Chamber, MRI | | | | [...] [place] | | | | | | [address] | | | | | | | [...] | | | 11:07? | | | AMANDA | | | JACKLYN | | | ?MRN: | | | [id number] | | | [id number] | | | his | | | [...] | | | ent/cd | | | [id number] | | | [id number] | | | [...] | | | int | | | Ramón | | | 18, | | | 2017 | | | Provid | | | ence | | | [facility] | | | [facility] | | [place] | | | [place] | | | Emerge | | | ncy | | | Emerge | | | ncy | | | fall | | | Ramón | | | 6, | | | 2017 | | | [facility] | [facility] | | | [place] | | | y H. | | [...] | | | ified | | | Ramón | | | 2, | | | 2017 | | | [facility] | | [facility] | | | [place] | | | y H. | | [...] | | | St. | | | [place] | | | y H. | | [...] | | | St. | | | [place] | | | y | | | [...] [address] | [place] | [phone] | | [facility] | | [address] | | | - LABORATORY | | | | + + + + + Giselime INR (05/15/2017 4:24 AM PDT) + + [...] ST. | [address] | [place], [place] | [phone] | | [facility] | | [address] | | | - LABORATORY | | [...] | mL/min/1.73m2 | [facility] | | | Taiwanese | RATE,ESTIMATED | | MEDICAL | | | | mL/min/1.53w1Dbxu than | | CENTER - | | [...] + | [facility] | [address] | [place] | [phone] | | [facility] | | [address] | | | - LABORATORY | | [...] [address] | [place] | [phone] | | [facility] | | [address] | | | - LABORATORY | | [...] | | | | BINU MACK MD ([id number]) | | | | | | on [...] | | | | BINU MACK MD ([id number]) | | | | | | on [...] was | | | taken to the cleaner laboratory equipment. 1 g of cefazolin was given intravenously. | | | Patient was hooked up to EKG, pulse oximetry and blood pressure | | | monitoring. All parameters were kept stable during procedure. The | | | [employer] pacemaker outbound sales representative was present in the operating [...] #: LPA 1200 M, serial #: [id number]. C. | | | Ventricular lead: [employer], length 52 cm, model #: LPA 1200M, serial | | | #: [id number]. PACEMAKER TESTING: A. Atrial lead: Sensing 2.4 [...] #: PM 2272, serial #: | | |[id number]. | | | | | |B. Atrial lead: [employer], length 46 cm, model #: LPA 1200 M, | | |serial #: [id number]. | | | | | |C. Ventricular lead: [employer] [place], length 52 cm, model #: LPA 1200M, | | |serial #: [id number]. | | | | | |PACEMAKER TESTING: [...] 1935: AGE: 81 y.o. PRIMARY | | CARE:KAMALA Boss:Cruzito Bird MD DATE OF PROCEDURE: 05/14/2017 | | PROCEDURES PERFORMED:1. Utilization of contrast agent for left subclavian venography.2. | | Dual chamber [employer] permanent pacemaker implantation.INDICATIONS: 1. 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 | | 1 g of cefazolin was given intravenously. Patient was hooked up to EKG, pulse oximetry | | and blood pressure monitoring. All parameters were kept stable during procedure. The | | [employer] pacemaker outbound sales representative was present in the operating [...] Pacemaker generator: [employer], model #: PM 2, serial #: [id number]. | | Atrial lead: [employer] [place], length 46 cm, model #: LPA 1200 M, serial #: [id number]. | | Ventricular lead: [employer] [place], length 52 cm, model #: LPA 1200M, serial #: [id number] | | [id number].PACEMAKER TESTING: A. Atrial lead: Sensing 2.4 mV, [...] | | Dictated and Signed by: Deep Gracia MD | | Electronically signed: 05/13/2017 5:37 [...] [address] | [place] | [phone] | | [facility] | | [address] | | | - LABORATORY | | [...] [place] | | | | | | [address] | | | | + + + + + + + + | Specimen | + + | Blood | + + + + + + + | Performing | Address | City/State/Zipcode | Phone Number | | Organization | | | | + + + + + | [facility] | [address] | [place] [address] | [phone] | + + + + + Ferritin [...] [address] | [place] | [phone] | | [facility] | | [address] | | | - LABORATORY | | [...] [address] | [place] | [phone] | | [facility] | | [address] | | | - LABORATORY | | [...] [place] | | | | | | [address] | | | | + + + + + + + + | Specimen | + + | Blood | + + + + + + + | Performing | Address | City/State/Zipcode | Phone Number | | Organization | | | | + + + + + | [facility] | [address] | [place] [address] | [phone] | + + + + + ECHO [...] Demographics Patient Name SIDDIQI | | | HAWTHORNE Room Number 457 Patient Number | | | [id number] Date of Study 05/13/2017 Visit Number | | | [id number] Referring Physician | | | CRUZITO BIRD MD Number | | | MARGE FLOR Date of | | | 1935 Junior Project Coordinator TRELL LEWIS ANTONY Age | | | 81 year(s) Interpreting | | | MARGE FLOR | | | Customer Service Sales Associate CRUZITO BIRD MD Gender | | | Male Nurse | | | Stress Adjunct Faculty For Medical Terminology Procedure Type of Study TTE procedure: ECHO [...] | 51.23 ml | | | EF Akxplrlce34% Left Ventricle Diastolic Dimension: 4.23 | | [...] Volume: 51.23 ml | | | EF Uhqggdllw76% | | | | | | Left [...] Report | | (TTE) Demographics Patient Name [facility] Room Number 457 Patient | | Number [id number] Date of Study 05/13/2017 Visit Number [id number] | | Referring Physician CRUZITO BIRD MD Number | | MARGE FLOR Date of 1935 | | Junior Project Coordinator TRELL LEWIS RDCS Age 81 year(s) Interpreting | | MARGE FLOR Customer Service Sales Associate CRUZITO | | MD MARGE Gender [...] LA Volume: 51.23 ml EF | | Tfedinxpu06% Left Ventricle Diastolic Dimension: 4.23 cm Systolic [...] | |9. When compared to echocardiography on 5/11/17, pulmonary hypertension is | |slightly worsened and [...] LA Volume: 51.23 ml | | EF Beofnepcw54% | | | | Left Ventricle | [...] ST. | [address] | [place], [place] | [phone] | | [facility] | | [address] | | | - LABORATORY | | [...] + | [facility] | [address] | [place] | [phone] | | [facility] | | [address] | | | - LABORATORY | | [...] eGFR, | 39 (L)Comment: | >=60 | [facility] | | | non- | GLOMERULAR FILTRATION | mL/min/1.73m2 | [facility] | | | Taiwanese | RATE,ESTIMATED | | MEDICAL | | | | mL/min/1.99d9Vqgr than | | CENTER - | | [...] + | [facility] | [address] | [place] | [phone] | | [facility] | | [address] | | | - LABORATORY | | [...] + | [facility] | [address] | [place] | [phone] | | [facility] | | [address] | | | - LABORATORY | | [...] mL/min/1.73m2 | [facility] | | | Taiwanese | RATE,ESTIMATED | | MEDICAL | | | | mL/min/1.93p0Njqt than | | CENTER - | | [...] Ratio | appended report. These | | [facility] | | | | results have [...] [address] | [place] | [phone] | | [facility] | | [address] | | | - LABORATORY | | [...] + | [facility] | [address] | [place] | [phone] | | [facility] | | [address] | | | - LABORATORY | | [...] [address] | [place] | [phone] | | [facility] | | [address] | | | - LABORATORY | | [...] ST. | [address] | [place], [place] | [phone] | | [facility] | | [address] | | | - LABORATORY | | [...] before | | | | | | 21-RAMÓN-2017)Marked T | | | | | | [...] | | | | BINU MACK MD ([id number]) | | | | | | on [...] mL/min/1.73m2 | [facility] | | | [place]ese | RATE,ESTIMATED | | MEDICAL | | | | mL/min/1.95o5Mevb than | | CENTER - | | [...] [address] | [place] | [phone] | | [facility] | | [address] | | | - LABORATORY | | [...] + | [facility] | [address] | [place] | [phone] | | [facility] | | [address] | | | - LABORATORY | | [...] arthroplasty changes. Multiple lead wires overlie the omgtb-bl-ewxx. | | | Overall unchanged aeration of [...] | | Multiple lead wires overlie the erkux-sj-fyph. | | | | Overall unchanged aeration [...] Variant | Moderate (A) | (none) | [facility] | | | Lymphocytes | | | [facility] | | [...] [address] | [place] | [phone] | | [facility] | | [address] | | | - LABORATORY | | [...] [address] | [place] | [phone] | | [facility] | | [address] | | | - LABORATORY | | [...] | + + + + + | [facility] | [address] | [place] | [phone] | | [facility] | | [address] | | | - LABORATORY | | [...] (H) | 7 - 18 mg/dL | [facility] | | | | | | [facility] | | | | | | MEDICAL | | | | | | CENTER - | | | | | | LABORATORY | | + + + + + + | Creatinine | 1.28 | 0.60 - 1.30 | [facility] | | | | | mg/dL | [facility] | | | | | | MEDICAL | | | | | | CENTER - | | | | | | LABORATORY | | + + + + + + | eGFR, | 54 (L)Comment: | >=60 | [facility] | | | non- | GLOMERULAR FILTRATION | mL/min/1.73m2 | [facility] | | | [place]ese | RATE,ESTIMATED | | MEDICAL | | | | mL/min/1.62p4Cgyu than | | CENTER - | | [...] + | [facility] | [address] | [place] | [phone] | | [facility] | | [address] | | | - LABORATORY | | [...] + | [facility] | [address] | [place], [place] | [phone] | | [facility] | | [address] | | | - LABORATORY | | [...] + | [facility] | [address] | [place] | [phone] | | [facility] | | [address] | | | - LABORATORY | | [...] | | | | BINU MACK MD ([id number]) | | | | | | on [...] | | | | BINU MACK MD ([id number]) | | | | | | on [...] ST. | [address] | [place] | [phone] | | [facility] | | [address] | | | - LABORATORY | | [...] [address] | [place] | [phone] | | [facility] | | [address] | | | - LABORATORY | | [...] ST. | [address] | [place] | [phone] | | [facility] | | [address] | | | - LABORATORY | | [...] mL/min/1.73m2 | [facility] | | | Taiwanese | RATE,ESTIMATED | | MEDICAL | | | | mL/min/1.26z8Mmta than | | CENTER - | | [...] ST. | [address] | [place] | [phone] | | [facility] | | [address] | | | - LABORATORY | | [...] + | [facility] | [address] | [place] | [phone] | | [facility] | | [address] | | | - LABORATORY | | [...] [address] | [place] | [phone] | | [facility] | | [address] | | | - LABORATORY | | [...] + | [facility] | [address] | [place] | [phone] | | [facility] | | [address] | | | - LABORATORY | | [...] | | | | BINU MACK MD ([id number]) | | | | | | on [...] 05/08/2017 | [facility]OVATION | | 9:20 AMMRN: [id number] #: [id number] of : | | | 1935dmit Type: InpatientAge: 81Room: [facility] 02Gender: MaleNote | | | Status: FinalizedAttending MD: Peter Maciel , MDProcedure: | | | Upper GI endoscopyIndications: Gastrointestinal | | | bleeding of unknown originProviders: Peter Maciel MD, | | | Malka Dueñas RN, mAelie Cabral | | | Sukumar, Adjunct Faculty For Medical Terminology, Miguel Galicia MD | | | (Anesthesia [...] | | | the anesthesiologist and the hemodialysis lab technician in the pre-procedure | | | [...] Scope In: 9:35:52 AMScope Out: 9:41:03 AM [facility]. | | | [facility], [address] [place] [address] | | | [phone] | | | - A small amount [...] |Scope Out: 9:41:03 AM | | | [facility]. [facility], [address] [place] | | | [address] | | + + -+ + +---------+ [...] | + + + + + | [facility] | [address] | [place] | [phone] | | [facility] | | [address] | | | - LABORATORY | | [...] 1.42 (H) | 0.60 - 1.30 | [facility] | | | | | mg/dL | [facility] | | | | | | MEDICAL | | | | | | CENTER - | | | | | | LABORATORY | | + + + + + + | eGFR, | 48 (L)Comment: | >=60 | [facility] | | | non- | GLOMERULAR FILTRATION | mL/min/1.73m2 | [facility] | | | Taiwanese | RATE,ESTIMATED | | MEDICAL | | | | mL/min/1.49m3Iadi than | | CENTER - | | [...] + | [facility] | [address] | [place] | [phone] | | [facility] | | [address] | | | - LABORATORY | | [...] [address] | [place] | [phone] | | [facility] | | [address] | | | - LABORATORY | | [...] 1.36 (H) | 0.60 - 1.30 | [facility] | | | | | mg/dL | [facility] | | | | | | MEDICAL | | | | | | CENTER - | | | | | | LABORATORY | | + + + + + + | eGFR, | 50 (L)Comment: | >=60 | [facility] | | | non- | GLOMERULAR FILTRATION | mL/min/1.73m2 | [facility] | | | [place]ese | RATE,ESTIMATED | | MEDICAL | | | | mL/min/1.26x7Pjwn than | | CENTER - | | [...] + | [facility] | [address] | [place] | [phone] | | [facility] | | [address] | | | - LABORATORY | | [...] + | [facility] | [address] | [place] | [phone] | | [facility] | | [address] | | | - LABORATORY | | [...] + | [facility] | [address] | [place] | [phone] | | [facility] | | [address] | | | - LABORATORY | | [...] [address] | [place] | [phone] | | [facility] | | [address] | | | - LABORATORY | | [...] [address] | [place] | [phone] | | [facility] | | [address] | | | - LABORATORY | | [...] [address] | [place] | [phone] | | [facility] | | [address] | | | - LABORATORY | | [...] | | | | | g/dL | [facility] | | | | | | [...] [address] | [place] | [phone] | | [facility] | | [address] | | | - LABORATORY | | [...] - 1.030 | [facility] | | | [place], | | | [facility] | | [...] + + | Remark | | | [facility] | | | | | [...] [address] | [place] | [phone] | | [facility] | | [address] | | | - LABORATORY | | [...] | | | |Dictated and Signed by: Dino Whitehead MD | | Electronically signed: 05/07/2017 [...] | | | | BINU MACK MD ([id number]) | | | | | | on [...] Dictated and Signed by: Kiel Mitchell | | MD Devin Electronically signed: 05/07/2017 [...] | | | | | | [employer] | | | | | [...] [address] | [place] | [phone] | | [facility] | | [address] | | | - LABORATORY | | [...] + | [facility] | [address] | [place] | [phone] | | [facility] | | [address] | | | - LABORATORY | | [...] eGFR, | 53 (L)Comment: | >=60 | [facility] | | | non- | GLOMERULAR FILTRATION | mL/min/1.73m2 | [facility] | | | [place]ese | RATE,ESTIMATED | | MEDICAL | | | | mL/min/1.05x2Azpg than | | CENTER - | | [...] 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
--- OUTSIDE RECORDS SUMMARY | ~2020-06-28 | XMS | Encounter Summary ---
Demographics + + + | Address | [address] | | | [place] [address] | + + + | Home Phone [...] Team Providers + +------+ + | Care Dealer Support Technician Name | Role | Phone | [...] + | 06/05/ | Telephone | [facility] | Emely Gabriel, | Results | | 2018 | | CARDIOLOGY [address] | PRESERVATIVE FILLER MACHINE OPERATOR [address] | | | | | [address], | [place] | | | | | [place] [address] | [address] | | | | | [phone] | | | +--------+ + + + [...] number after 15 minutes. Left message on Eachpal to return call ..........................................Isabel Colbert RN on 8 at 9:47 elephone EncounEmely Hopkins ARNP - 06/05/2018 7:59 AM PDTPlease call [...] to visit. Between now and then, if h elizabeth notices any palpitations, he should call our [...] 2019 | Monitor | | MD [address] | Interrogation | | | | | 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
--- OUTSIDE RECORDS SUMMARY | ~2020-06-28 | XMS | Encounter Summary ---
Demographics + + + | Address | [address] | | | [place] [address] | + + + | Home Phone [...] + | Author | [facility] | | | and [place] | + + + | Organization | [facility] | | [...] Providers + +------+ + | Care Air Route Traffic Controller Name | Role | Phone | + [...] 2019 | | CARDIOLOGY [address] | [employer] | | | | | [place], | | | | | | [place] [address] | | | | | | [phone] | | | +--------+ + + + [...] | [facility] | Interrogation | | | | | [place], | (Primary Dx); | | | | | [place] [address] | Pacemaker Dual | | | | | [phone] | Chamber, MRI | | | | | | compatible, 05/14/17 | | | | | | [facility]; | | | | | | 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
--- OUTSIDE RECORDS SUMMARY | ~2020-06-28 | XMS | Encounter Summary ---
Demographics + + + | Address | [address] | | | [place] [address] | + + + | Home Phone [...] Team Providers + +------+ + | Care Big Data Admin Name | Role | Phone | + [...] Required | | obstructive | [address] | PULMONOLOGY | | | | | pulmonary | [address] [place] | [address] | | | | | disease, | [place] | [address] | | | | | unspecified | [address] | [place] | | | | | COPD type | Phone: | [place] | | | | | ([facility]) | [phone] | [address] | | | | | Abnormal PFT | Fax: | Phone: | | | | | Procedures | [phone] | [phone] | | | | | SCHEDULED | | Fax: | | | | | FOR 12/25/18 | | [phone] | +--------+ + + + + + [...] + | 07/03/ | Telephone | [facility] | Emely Gabriel, | Results | | 2017 | | CARDIOLOGY [address] | [facility] [address] | | | | | [place], | [place] | | | | | [place] [address] | [address] | | | | | [phone] | | | +--------+ + + + [...] PATEL. Okay per Johnny. Placed referral to [facility] Pulmonology. ...........................................COSTA FENTON RN on 07/04/18 at [...] don't see that he has seen a title vehicle service attendant, but that would be a reasonable idea at [facility]. If that is something he is interested in, go ahead and put in referral to [facility] pulmonology department for COPD and abnormal pulmonary function tests. Otherwise, the patient can just discuss further with Dr. Bird at follow up appointment 07/31/18. I did fax a copy of the pulmonary function tests to Dr. Paulino's office as well. Thanks! 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
--- OUTSIDE RECORDS SUMMARY | ~2020-06-28 | XMS | Encounter Summary ---
Demographics + + + | Address | [address] | | | [place] [address] | + + + | Home Phone [...] Team Providers + +------+ + | Care Property Claims Adjuster Name | Role | Phone | [...] + | 04/21/ | Telephone | [facility] | Cruzito Bird, | Appointment | | 2017 | | CARDIOLOGY [address] | [address] [place] | | | | | [place], | 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
--- OUTSIDE RECORDS SUMMARY | ~2020-06-28 | XMS | Encounter Summary ---
Demographics + + + | Address | [address] | | | [place] [address] | + + + | Home Phone [...] | | + + +---------+ + | Cassadnra Guthrie | ECON | Unknown | | + + +---------+ + Care Team Providers + +------+ + | Care Broke Worker Name | Role | Phone | + +------+ + PCP | Unavailable | + +------+ + Encounter Details +--------+ + + + + | Date | Type | Department | Care Team | Description | +--------+ + + + + | 11/13/ | Hospital | [facility] | Conversion | | | 2004 - | Encounter | [facility] | Transaction, | | | | | CARE FLOOR [address] | Provider Unknown | | | 11/22/ | | LEIGHA LAM | [phone] | | | 2004 | | [place], [place] | | | | | | [address] | Antonio Payne | | | | | [phone] | MD [address] | | | | | | [address] | | | | | | [place] [address] | | | | | | [phone] | | | | | | | [...] Interrogation | | | | | [place], | (Primary Dx); | | | | | [place] [address] | Pacemaker Dual | | | | | [phone] | Chamber, MRI | | | | [...] | | | | | | [place], [place] | | | | | | [address] | | | | | | | | +--------+ + + + + documented as of this encounter Visit Diagnoses Not on filedocumented in this encounter"
--- OUTSIDE RECORDS SUMMARY | ~2020-06-28 | XMS | Encounter Summary ---
Demographics + + + | Address | [address] | | | [place] [address] | + + + | Home Phone [...] Team Providers + +------+ + | Care Second Miller Name | Role | Phone | + [...] | | | | | | | ([facility]) | | | | | | | | | | +--------+--------+ + + + + Encounter Details +--------+ + + + + | Date | Type | Department | Care Team | Description | +--------+ + + + + | 02/27/ | Hospital | [facility] | Jose, | Acute renal failure, | | 2017 - | Encounter | [facility] | Tristan Devlin MD [address] | unspecified acute | | | | [address] [place] | [address] [place] | renal failure type | | 03/04/ | | [place] [address] | [place] [address] | ([facility]) (Primary Dx); | | 2017 | | [phone] | [phone] | Bradycardia; | | | | | | Hyperkalemia; | | | | | Sy Hopkins MD | Elevated INR; | | | | | [address] | Elevated troponin; | | | | | [place] | Pleural effusion, | | | | | [address] | left | | | | | [...] d/c papers with patient and son. Asaf ja learning using teach back. Patient able to [...] staff to son's car for tra nsportation. arroberto carlos , Sy Ac MD - 03/04/2017 2:20 PM PDTFormatting of this note might be different from the or iginal. [facility] DISCHARGE SUMMARY Pt. Name/Age/: Jacklyn Siddiqi 81 [...] DISCHARGE INSTRUCTIONS: Follow-up Information Follow up with [facility]. Why: appointment at AL in 7-10 days. Spontaneous voiding trial needs to occur in 7-10 day s Contact information: Tejal Zeped[address] [facility] [address] patient should have voiding trial in 7-10 days (approximately 2 weeks after placement of F oley catheter) Outpatient pro time should be obtained on , 03/07 and then weekly until stable RESULTS: nscription Duane Narrative Transthoracic Echocardiography Report (TTE) Demographics Patient Name AMANDA VILLASENOR Room Number 425 Patient Number [id number] Date of Study 02/28/2017 Visit Number [id number] Referring Physician SANDEEP Nieves Date of 1935 Assessment Expert TRELL LEWIS RDCS Age 81 year(s) Interpreting MARGE FLOR Dragger Out CRUZITO Rossi MD Gender Male Nurse Stress Anhydrous Ammonia Production Supervisor Procedure Type of Study TTE procedure: ECHO [...] 40 mL/m^2 LA Volume: 81.33 ml EF Zmxnrrdgh79% Left Ventricle Diastolic Dimension: 4.13 cm Septum [...] this 81-year-old male was referred from the [facility] outpatient clinics on the day of assessment for complaints of chest p ain and shortness of breath. At the time of presentation he reportedly been under a lot of anxiety was unhappy with his living situation in [place]. On assessment he was found to h [...] further chest pain then consideration of outpatient [facility] medicine stress testing could be entertained. [...] signed by: Sy Hopkins MD, 03/04/2017 14:50 [facility] Portions of this chart may have been created with payByMobile voice recognition software. Occasi onal wrong-word or [...] Hopkins MD - 03/03/2017 6:59 PM PDT [facility] PMG Hospitalist Progress Note Jacklyn Siddiqi is [...] Intake/Output Summary (Last 24 hours) at 03/03/17 6179 Last data filed at 03/03/17 1800 Gross [...] as outlined above. Sy Hopkins 03/03/2017 18:59 [facility] Portions of this chart may have been created with [employer]ByMobile voice recognition software. Occasi onal wrong-word or sound-alike substitutions may have occurred due to the inherent carter itations of voice recognition software. Please read the chart carefully and recognize, using context, where these substitutions have occurred arker, Sy Ac MD - 0 03/02/2017 7:39 PM PDT [facility] PMG Hospitalist Progress Note Jacklyn Siddiqi is [...] as outlined above. Sy Hopkins 03/02/2017 19:40 [facility] Portions of this chart may have been created with [employer]ByMobile voice recognition software. Occasi onal wrong-word or sound-alike substitutions may have occurred due to the inherent carter itations of voice recognition software. Please read the chart carefully and recognize, using context, where these substitutions have occurred avier Elizalde RN - 03/02/2017 8:00 AM PDTPt up in chair, c/o low back pain "from laying in bed too long", den ied Rx. uan Jose Pulido RN - 03/01/2017 7:50 PM PDTPatient requests that we do not release information about his condition to his daughter Denisse. He prefers that we refer her either to himself, or to mi s son Jacklyn. y Hopkins MD - 03/01/2017 1:20 PM PDTFormatting of this note might be different from the orig inal. [facility] PMG Hospitalist Progress Note Jacklyn Siddiqi is [...] as outlined above. Sy Hopkins 03/01/2017 13:20 [facility] Portions of this chart may have been created with [employer]ByMobile voice recognition software. Occasi onal wrong-word or sound-alike substitutions may have occurred due to the inherent carter itations of voice recognition software. Please read the chart carefully and recognize, using context, where these substitutions have occurred arroberto carlos, Sy Ac MD - 0 02/28/2017 5:19 PM PDT [facility] PMG Hospitalist Progress Note Jacklyn Siddiqi is [...] as outlined above. Sy Hopkins 02/28/2017 17:19 [facility] Portions of this chart may have been created with payByMobile voice recognition software. Occasi onal wrong-word or [...] Doctor's office: [] Pharmacy list names: [] [place] [employer] [place] (Prescription Monitoring Program) [] [employer] insurance reported [...] performed and electronically signed by Jerson Kaufman, Computer Bookkeeper 2016 17:18 Reviewed by: Dolly Rizzo PHARMAsaf 02/27/2017 20:22 Javier Juares RN - 02/27/2017 [...] Siddiqi : 1935: Age: 81 y.o. MedRec: [id number] Admission date: 02/27/2017 Hospital day #: Physician author: Sy Hopkins MD HISTORY AND PHYSICAL CHIEF COMPLAINT: For chest pain and shortness of breath when being assessed at the [facility] today. HISTORY OF PRESENT ILLNESS: This is a 81 y.o. male with a history of being referred to the emergency room from the [facility] for assessment of chest pain. The patient currently denies chest pain but by report had com plained of some chest discomfort and shortness of breath at the AL on his assessment. The p atient reported he had been under a lot of stress and anxiety recently because he is unhappy with his living situation in assisted living in [place]. On evaluation here he was found to [...] aortic valve replacement. Medication list from the AL include furosemide 40 mg twic e daily and metolazone 2.5 mg daily. Our last echocardiogram was in 03/2015 which showed ret ained left ventricular function. His prosthetic aortic valve appeared to be functioning nor servando. PAST MEDICAL and SURGICAL HISTORY: Past Medical History Diagnosis Date H/O aortic valve replacement 2004 [facility] AV[facility] INR goal is 2-3, surgery done at [facility] Hypertension Liver cirrhosis (HCC) CVA (cerebral infarction) -2014 lacunar (not stated as new nor old) Dementia Alcoholic cirrhosis (HCC) 2003 CT scan 2003 at [facility] Endocarditis 2009 Enterococcus 6 weeks Amp + Gent PSA elevation 2009 Pt declined Bx then Peripheral vertigo 2012 BPPV left Venous ulcer 2013 Leg Retinal detachment 2010 CAD (coronary artery disease) 2005 Had CABG to LAD (for 80-90% LAD) surgery done at [facility] Pulmonary HTN (HCC) Severe on Echo 2013 Diastolic CHF (HCC) Echo 2014 EF 68, ascites, pulm HTN Over-anticoagulated 04/01/2015 Past Surgical History Procedure Laterality Date Cardiac surgery 2005 AL says [address]G and [facility] AVR FAMILY [...] mg in the evening for 1 w [place]. After 1 week resume your normal dose [...] signed by: Sy Hopkins MD 02/27/2017 16:43 [facility] Portions of this chart may have been created with payByMobile voice recognition software. Occasi onal wrong-word or sound-alike substitutions may have occurred due to the inherent carter itations of voice recognition software. Please read the chart carefully and recognize, using context, where these substitutions have occurred documented in this enc [facility] ED Notes Efe Rosado RN - 02/27/2017 5:23 PM PDTPt to be taken upstairs on monitor with R N, all personal belongings. 5 :24 PM PDTTristan Garcia MD - 02/27/2017 1:17 PM PDTFormatting of this note might b e different from the original. [facility] Jacklyn Siddiqi Emergency Department Encounter Note [address] [place] [address] PCP:No Physician on file [phone] CHIEF COMPLAINT: Chief Complaint Patient presents with Chest Pain ED Room: ED01/ED01 HPI Jacklyn Siddiqi is a 81 y.o. male who presents to the Emergency Department by ambulance from [facility] for evaluation. This patient was being seen in the [facility] for routine appointment today an d complained [...] INR goal is 2-3, surgery done at [facility] Hypertension Liver cirrhosis (HCC) CVA (cerebral infarction) -2014 lacunar (not stated as new nor old) Dementia Alcoholic cirrhosis (HCC) 2003 CT scan 2003 at [facility] Endocarditis 2009 Enterococcus 6 weeks Amp + Gent PSA elevation 2008 Pt declined Bx then Peripheral vertigo 2012 BPPV left Venous ulcer 2013 Leg Retinal detachment 2010 CAD (coronary artery disease) 2005 Had CABG to LAD (for 80-90% LAD) surgery done at [facility] Pulmonary HTN (HCC) Severe on Echo 2013 [...] mg in the evening for 1 w [place]. After 1 week resume your normal dose [...] Portions of this chart were created with [employer]Place voice recognition software. Inadvertent so und alike [...] She is requesting an order stating that [facility] Jacklyn[facility]. Spoke with Dr Hopkins. He reports he will write the order. Order faxed to Anushka Villavicencio. Transmitted ok. Dr Hopkins requests a [facility] follow up appointment in 10 days for catheter removal. His PCP at the AL is Aleah Smith with [facility] This writer technical publications called the [facility] spoke with Padmini. She will put f/u [...] up to chair with SBA lan of [facility] Damaris lindo RN - 03/01/2017 6:53 PM [...] meals. Remains free from falls. lan of [facility] Anamaria arndt - 03/01/2017 10:29 AM PDTDischarge Planning: This [facility] spoke with Jacklyn's son Jacklyn outside the room today. Son reports his dad does very well @ [facility]. That being sad he complains of not [...] he will transport his father back to [facility] when stable for d ischarge. Electronically signed by: Anamaria Madison 03/01/2017 10:33 Received call from Leanne Work Distributor @ [facility] [phone]. She had questions about admitting diagnosis and dc plan. Update given. Electronically signed by: Anamaria Madison 03/01/2017 15:06 lan of Roxanne Venegas RN - 03/01/2017 6:13 AM PDTProblem: Patient [...] safety. Remains free from falls. lan of Care - Andres Howe RN - 02/28/2017 9:28 PM PDTProblem: Patient [...] lasix. Patient very concerned about returning to [facility], it makes him "sick" to think about. Work Distributor working with patient. Per melissa starkey's permission spoke to one of his daughters and an employee/friend from current SNF info rming of patient's condition. Patient's INR was 5.0 and given vitamin K. lan of [facility] - Anamaria Nunes Rob - 02/28/2017 3:28 PM PDTDischarge Planning: This CAP MAKER spoke with Jacklyn at his bedside regarding discharge. Jacklyn is a resident @ [facility] in [place]. Jacklyn uses a cane or power scooter to assist with ambulation. Jacklyn is a non service connected . His PCP is @ [facility]. Message left at the [facility] office regarding admission. This writer technical publications called and spoke with Exec. Director Jazlyn and Afshan the [facility]. They report they will accept Jacklyn back to the facility. They both report that d/t his dementia Jacklyn can often come across as very needy at times. And that Jacklyn often talks very poorly about his sons and constantly states that he can no t live @ [facility] because it makes him ill. Jacklyn states his son Jacklyn is his most helpful child, he takes him to appointments and th [employer] store etc. Message left for son Jacklyn [...] amts of urine. 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 | [address] | [place] | [phone] | | [facility] | | [address] | | | - LABORATORY | | [...] | GLOMERULAR FILTRATION | mL/min/1.73m2 | [facility] | | | English | RATE,ESTIMATED | | MEDICAL | | | | mL/min/1.04y7Vjch than | | CENTER - | | [...] ST. | [address] | [place], [place] | [phone] | | [facility] | | [address] | | | - LABORATORY | | [...] [address] | [place] | [phone] | | [facility] | | [address] | | | - LABORATORY | | [...] + | [facility] | [address] | [place] | [phone] | | [facility] | | [address] | | | - LABORATORY | | | | + + + + + Protime INR (03/04/2017 5:58 AM PDT) + + + + + + | Component | Value | Ref Range | Performed | Pathologist | | | | | At | Signature | + + + + + + | Prothrombin | 22.2 (H) | 11.3 - 13.9 | [facility] [address] | [place] | [phone] | | [facility] | | [address] | | | - LABORATORY | | [...] + | [facility] | [address] | [place] | [phone] | | [facility] | | [address] | | | - LABORATORY | | [...] - 1.030 | [facility] | | | [place], | | | [facility] | | [...] ST. | [address] | [place], [place] | [phone] | | [facility] | | [address] | | | - LABORATORY | | [...] pleural effusion. Dictated and Signed by: Jadon Mitchell | Paula White MD Electronically signed: 03/03/2017 1:21 PM [...] + | [facility] | [address] | [place], [place] | [phone] | | [facility] | | [address] | | | - LABORATORY | | [...] [address] | [place] | [phone] | | [facility] | | [address] | | | - LABORATORY | | [...] | | Cells | | M/uL | [facility] | | | | [...] + | [facility] | [address] | [place] | [phone] | | [facility] | | [address] | | | - LABORATORY | | [...] 1.63 (H) | 0.60 - 1.30 | [facility] | | | | | mg/dL | [facility] | | | | | | MEDICAL | | | | | | CENTER - | | | | | | LABORATORY | | + + + + + + | eGFR, | 41 (L)Comment: | >=60 | [facility] | | | non- | GLOMERULAR FILTRATION | mL/min/1.73m2 | [facility] | | | English | RATE,ESTIMATED | | MEDICAL | | | | mL/min/1.23s4Jskl than | | CENTER - | | [...] + | [facility] | [address] | [place] | [phone] | | [facility] | | [address] | | | - LABORATORY | | [...] [address] | [place] | [phone] | | [facility] | | [address] | | | - LABORATORY | | [...] [address] | [place] | [phone] | | [facility] | | [address] | | | - LABORATORY | | [...] + | [facility] | [address] | [place] | [phone] | | [facility] | | [address] | | | - LABORATORY | | [...] mL/min/1.73m2 | [facility] | | | English | RATE,ESTIMATED | | MEDICAL | | | | mL/min/1.49z5Lwni than | | CENTER - | | [...] ST. | [address] | [place], [place] | [phone] | | [facility] | | [address] | | | - LABORATORY | | [...] [address] | [place] | [phone] | | [facility] | | [address] | | | - LABORATORY | | [...] + | [facility] | [address] | [place] | [phone] | | [facility] | | [address] | | | - LABORATORY | | | | + + + + + Protime INR (03/01/2017 5:20 AM PDT) + + + + + + | Component | Value | Ref Range | Performed | Pathologist | | | | | At | Signature | + + + + + + | Prothrombin | 30.3 (H) | 11.3 - 13.9 | [facility] [address] | [place] | [phone] | | [facility] | | [address] | | | - LABORATORY | | [...] mL/min/1.73m2 | [facility] | | | English | | | MEDICAL | | | [...] + | [facility] | [address] | [place] | [phone] | | [facility] | | [address] | | | - LABORATORY | | [...] SIDDIQI | | | JACKLYN Room Number 425 Patient Number | | | [id number] Date of Study 02/28/2017 Visit Number | | | [id number] Referring Physician | | | SANDEEP Ac Number Date of 1935 | | | Assessment Expert TRELL LEWIS [facility] Age | | | 81 year(s) Interpreting MARGE FLOR | | | Dragger Out | | | CRUZITO BIRD MD Gender Male Nurse | | | Stress Anhydrous Ammonia Production Supervisor | | | Procedure Type of Study [...] Volume: 81.33 ml | | | EF Bacyfojhw22% Left | | | Ventricle Diastolic Dimension: [...] Volume: 81.33 ml | | | EF Vfvaqguxq32% | | | | | | Left [...] Room Number 425 Patient | | Number [id number] Date of Study 02/28/2017 Visit Number [id number] | | Referring Physician SANDEEP Ac Number Date of | | 1935 Assessment Expert TRELL LEWIS RDCS Age 81 year(s) | | Interpreting MARGE FLOR Dragger Out | | CRUZITO BIRD MD Gender Male [...] | | LA Volume: 81.33 ml EF Ignlamvcr39% | | Left Ventricle Diastolic Dimension: 4.13 [...] LA Volume: 81.33 ml | | EF Wguifkjsr29% | | | | Left Ventricle | [...] + | [facility] | [address] | [place] | [phone] | | [facility] | | [address] | | | - LABORATORY | | [...] | | | | | | [employer] | | | | | [...] [address] | [place] | [phone] | | [facility] | | [address] | | | - LABORATORY | | [...] + | [facility] | [address] | [place] | [phone] | | [facility] | | [address] | | | - LABORATORY | | [...] | | Consistent with previous | | [facility] | | | | results. | | [...] mL/min/1.73m2 | [facility] | | | English | RATE,ESTIMATED | | MEDICAL | | | | mL/min/1.17t1Mowm than | | CENTER - | | [...] [address] | [place] | [phone] | | [facility] | | [address] | | | - LABORATORY | | [...] + | [facility] | [address] | [place] | [phone] | | [facility] | | [address] | | | - LABORATORY | | [...] + | [facility] | [address] | [place] | [phone] | | [facility] | | [address] | | | - LABORATORY | | [...] | | | | | | [employer] | | | | | [...] [address] | [place] | [phone] | | [facility] | | [address] | | | - LABORATORY | | [...] - 1.030 | [facility] | | | [place], | | | [facility] | | [...] | | | Casts, | | | [facility] | | | Urine | | | [...] [address] | [place] | [phone] | | [facility] | | [address] | | | - LABORATORY | | [...] [address] | [place] | [phone] | | [facility] | | [address] | | | - LABORATORY | | [...] [address] | [place] | [phone] | | [facility] | | [address] | | | - LABORATORY | | [...] ST. | [address] | [place], [place] | [phone] | | [facility] | | [address] | | | - LABORATORY | | [...] [address] | [place] | [phone] | | [facility] | | [address] | | | - LABORATORY | | [...] [address] | [place] | [phone] | | [facility] | | [address] | | | - LABORATORY | | [...] | | | | | | [employer] | | | | | [...] [address] | [place] | [phone] | | [facility] | | [address] | | | - LABORATORY | | [...] mL/min/1.73m2 | [facility] | | | English | RATE,ESTIMATED | | MEDICAL | | | | mL/min/1.11y6Zkjj than | | CENTER - | | [...] [address] | [place] | [phone] | | [facility] | | [address] | | | - LABORATORY | | [...] | | Eosinophils | | K/uL | [facility] | [...] variant lymphocytes seen on smear review. | [facility] | | | [facility] | [facility] | | | - LABORATORY | + + + + + + + + | Performing | Address | City/State/Zipcode | Phone Number | | Organization | | | | + + + + + | [facility] | [address] | [place] | [phone] | | [facility] | | [address] | | | - LABORATORY | | [...] | | | | | BINU CHARLTON ([id number]) on | | | | | | [...] Chamber, MRI compatible, 05/14/17 [facility] Rudiayesha Cardiac pacemaker | | in situ | [...] | | | | | CONTINUOUS, Starting [facility] 02/28/17 | | | | | | [...] | | | | | Oral, ONCE, [facility] 02/28/17 at 0815, | | AM PDT [...]
--- OUTSIDE RECORDS SUMMARY | ~2020-06-28 | XMS | Encounter Summary ---
Demographics + + + | Address | [address] | | | [place] [address] | + + + | Home Phone [...] Team Providers + +------+ + | Care Chief Design Drafter Name | Role | Phone | [...] | | | | Chronic | Emely, SUPERVISOR PASTRY | Pulmonary | | | | | diastolic | [address] | Function [address] | | | | | (congestive) | [address] [place] | [address] | | | | | heart | [place], [place] | [place], | | | | | failure | [address] | [place] [address] | | | | | (HCC) | Phone: | Phone: | | | | | Encounter | [phone] | [phone] | | | | | for | Fax: | Fax: | | | | | monitoring | [phone] | [phone] | | | | | amiodarone | | | | | | | therapy | | | | | | | Unspecified | | | | | | | atrial | | | | | | | fibrillation | | | | | | | (HCC) | | | | | | | Procedures | | | | | | | OR EVAL OF | | | | | | | BRONCHOSPASM | | | | | | | ,PROLONGED | | | | | | | OR DIFFUSING | | | | | | | CAPACITY | | | | | | | OR EVAL OF | | | | | | | BRONCHOSPASM | | | | | | | OR | | | | | | | PLETHYSMOGRA | | | | | | | PHY LUNG | | | | | | | VOLUMES W/WO | | | | | | | AIRWAY | | | | | | | RESIST OR | | | | | | | BREATHING | | | | | | | CAPACITY | | | | | | | TEST | | | +--------+--------+ + + + + Encounter Details +--------+ + + + + | Date | Type | Department | Care Team | Description | +--------+ + + + + | 06/26/ | Hospital | [facility] | Hellberg, Emely, | Coronary artery | | 2018 | Encounter | MED CTR PULMONARY | SUPERVISOR PASTRY [address] | disease involving | | | | FUNCTION [address] [place] | [place] coronary | | | | [address], | [address] | artery of [place] | | | | [place] [address] | | heart without angina | | | | [phone] | | pectoris; | | | | | | 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); | | | | | | Essential | | | | | | hypertension; | | | | | | Chronic diastolic | | | | | | congestive heart | | | | | | failure ([facility]); | | | | | | Persistent atrial | | | | | | fibrillation ([facility]); | | | | [...] TESTING ORDERSPre-Procedure Diagnose(s): 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; Tachycardia-bradycardia syndrome [...] signed by: Antonio Hartman MD 06/27/2018 11:09 [facility] Antonio Hartman MD [...] Interrogation | | | | | [address] [place], | (Primary Dx); | | | | | [place] [address] | Pacemaker Dual | | | | | [phone] | Chamber, MRI | | | | | | compatible, 05/14/17 | | | | | | [facility]; | | | | | | 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) | +--------+ + + + + | 01/05/ | Office | Cardiology | AbhijitEmely irwin, | | | 2020 | Visit | | SUPERVISOR PASTRY [address] | | | | | | [place] | | | | | | [id number] | | | | | | | [...] | | ORDERS | | PDT | cho[place] coronary | results section. | | | | | artery of [place] | | | | | | heart [...] Bird | | | | | | ocean transportation intermediary current | | | | | | use of amiodarone | | + +--------+ + + + | PFT PULMONARY | JUNAID | 06/27/2018 | Coronary artery | Results for this | | FUNCTION TESTING | | 11:09 AM | disease involving | procedure are in the | | ORDERS | | PDT | [place] coronary | results section. | | | | | artery of [place] | | | | | | heart [...] Bird | | | | | | half-way [...] Hartman MD 06/27/2018 | | | 11:09[facility] | | | | | | | | |IMPRESSION: Spirometry is consistent with very severe restrictive | | |physiology. No prior pulmonary function tests available for | | |comparison. | | | | | | | | |Test performed: 06/26/18 | | |Electronically signed by: Antonio Hartman MD 06/27/2018 11:09 | | |[facility] | | + + + documented in this encounter Visit Diagnoses + + | Diagnosis | + + | Coronary artery disease involving [place] coronary artery of [place] heart without | | angina pectoris | [...] | in situ | + + | ocean transportation intermediary current use of amiodarone | + + [...] | | | | Nebulization, RT Once, [facility] 06/26/18 | | AM PDT | | | | | at 1145, For 1 dose, RT will | | | | | | | administer., | | | | | | + +--------+ +--------+------+------+ +---+---+ | | | +---+---+ documented in this encounter"
--- OUTSIDE RECORDS SUMMARY | ~2020-06-28 | XMS | Encounter Summary ---
Demographics + + + | Address | [address] | | | [place] [address] | + + + | Home Phone [...] | | + + +---------+ + | Cassanrda Guthrie | ECON | Unknown | | + + +---------+ + Care Team Providers + +------+ + | Care Coffee Urn Attendant Name | Role | Phone | + +------+ + | Antonio Paulino MD | PCP | | + +------+ + Encounter Details +--------+ + + + + | Date | Type | Department | Care Team | Description | +--------+ + + + + | 09/03/ | Orders Only | [facility] | Antonio Payne | | | 2015 | | [facility] | MD Josh [address] | | | | | [address] | [address] | | | | | [place], [place] | [place] [address] | | | | | [address] | [phone] | | | | | [phone] | | | +--------+ + + + [...] Dx); | | | | | [place] [address] | Pacemaker Dual | | | | | [phone] | Chamber, MRI | | | | [...] [place] | | | | | | [address] | | | | | | | [...] | | | | | by [facility] Read Only, | | | | | | [facility] ([id number]), | | | | | | supervising editor news reel Wyatt Pierce | | | | | | ([id number]) on 10/02/2016 | | | | | | 8:28:04 AM | | | | + + + + + + + + | Specimen | + + | | + + + + + | Narrative | Performed At | + + + | Historically converted [facility] Epic environment | EXTERNAL LAB | [...]
--- OUTSIDE RECORDS SUMMARY | ~2020-06-28 | XMS | Encounter Summary ---
Demographics + + + | Address | [address] | | | [place] [address] | + + + | Home Phone [...] Team Providers + +------+ + | Care Smoking Tobacco Cutter Operator Name | Role | Phone | + +------+ + PCP | Unavailable | + +------+ + Encounter Details +--------+ + + + + | Date | Type | Department | Care Team | Description | +--------+ + + + + | 03/26/ | Hospital | [facility] | Conversion | CORON ATHEROSCL | | 2004 | Encounter | CONVERSION DEP [address] | Transaction, | [facility] | | | | [address] | Provider Unknown | | | | | [place] | | | | | | [address] | | | | | | [phone] | | | +--------+ + + + [...] 07/20/ | Implant | Cardiology | [facility] iBrd, | Remote Device | | 2020 | Monitor | | [address] | Interrogation | | | | | [place], | (Primary Dx); | | | | | [place] [address] | Pacemaker Dual | | | | | [phone] | Chamber, MRI | | | | | | compatible, 05/14/17 | | | | | | [facility]; | | | | | | 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) | +--------+ + + + + | 01/05/ | Office | Cardiology | Emely Gabriel, | | | 2020 | Visit | | LEVER OPERATOR [address] | | | | | | [place] | | | | | | [address] | | | | | | | | +--------+ + + + + documented as of this encounter Visit Diagnoses + + | Diagnosis | + + | Coronary atherosclerosis of [place] coronary artery | + + | Remote Device Interrogation - Primary Fitting and adjustment of cardiac pacemaker | + + | Pacemaker Dual Chamber, MRI compatible, 05/14/17 [facility] Cardiac pacemaker | | in situ | + + | 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
[~2020-06-28 13:23] MED LIST changes: +ADT ROBITUSSIN PO
--- NOTE | 2020-06-28 20:22 | EKG ---
[facility] [address] [place] [address] Signed Atrial-paced rhythm with prolonged AV conduction with occasional premature ventricular complexes Left bundle branch block Abnormal ECG When compared with ECG of 18-MAY-2020 10:23, premature ventricular complexes are now present Confirmed by GERI ELLISON MD ([id number]) on 06/28/2020 8:22:26 PM Electronically Signed By: GERI ELLISON MD 06/28/202021 PATIENT NAME: JACKLYN PATEL Electrocardiogram DATE OF : 31 PHYSICIAN: GERI ELLISON MD REPORT #: [id number] REPORT IS CONFIDENTIAL AND NOT TO BE RELEASED WITHOUT AUTHORIZATION
== END 2020-06-28 15:34 | disposition home or self-care (01) ==
LOC: ED 13:23
DX: K59.00 Constipation, unspecified (principal); R07.89 Other chest pain; E78.5 Hyperlipidemia, unspecified; I11.0 Hypertensive heart disease with heart failure; I50.9 Heart failure, unspecified; E66.9 Obesity, unspecified; Z91.040 Latex allergy status; Z79.899 Other long term (current) drug therapy; Z79.01 Long term (current) use of anticoagulants; Z79.891 Long term (current) use of opiate analgesic
CPT/HCPCS: 71045; 80053; 83735; 84484; 85025; 93005; 93010; 99285-25

== ENCOUNTER 2020-08-31 09:52 | Emergency (ER) | payer MEDICARE, OTHER ==
[~2020-08-31] VITALS: Ht 167.6 cm; Wt 97.5 kg
--- OUTSIDE RECORDS SUMMARY | 2020-08-31 09:54 | XMS ---
PreManage Notification: JACKLYN PATEL Security Community Midwife Events No recent Security Events currently on file CRITERIA MET - Group Notification CARE PROVIDERS Lalo Nicholson [facility] Current PHONE: [phone] Leonila Cohen Blueprinter/Line Installer Repairer 06/21/2020-Current PHONE: [phone] [facility] 07/10/2018-Current PHONE: Unknown Rikki has no Care Guidelines for this patient. Care History Medical/Surgical 01/06/2019 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- [phone]. - PATIENT PCP IS DR SAIMA ANDERSON AT THE OR. 02/12/2018 [facility] Care Recommendation: This patient has had 5 or more Emergency Department visits in the last 12 months. Patient requires education on the scope and purpose of the ED as an acute care provider not a Primary Care Provider and should not be utilized for chronic conditions. If patient returns to ED please contact Community Health WorkerAnamaria at [phone]. These are guidelines and the provider should exercise clinical judgment when providing care. E.D. VISIT COUNT (12 MO.) [facility] T[facility] NOTE: Visits indicate total known visits. ED/C VISIT TRACKING (12 MO.) [facility]2020 09[facility] COMPLAINT: - CHEST PAIN 06/28/2020 13:24 [facility] TYPE: Emergency COMPLAINT: - CHEST PAIN DIAGNOSES: - Heart failure, unspecified - Other chest pain - Chest pain, unspecified - Latex allergy status - Unspecified abdominal pain - Other terminal system operator (current) drug therapy - Hyperlipidemia, unspecified - director long term care (current) use of anticoagulants - Obesity, unspecified - director long term care (current) use of opiate analgesic - Constipation, unspecified - Hypertensive heart disease with heart failure 05/18/2020 09:35 [facility] TYPE: Emergency COMPLAINT: - SWOLLEN LEGS 04/29/2020 18:39 [facility] TYPE: Emergency COMPLAINT: - TOE PAIN DIAGNOSES: - Latex allergy status - Hypertensive heart disease with heart failure - Other terminal system operator (current) drug therapy - Pain in right toe(s) - nursing home (current) use of anticoagulants - Heart failure, unspecified - Laceration without foreign body of right lesser toe(s) without damage to nail, initial encounter - Hyperlipidemia, unspecified - Contact with other nonpowered hand tool, initial encounter 04/09/2020 09:29 [facility] TYPE: Emergency COMPLAINT: - WEAKNESS, SOB INPATIENT VISIT TRACKING (12 MO.) 05/18/2020 12:59 [facility] TYPE: Medical Surgical COMPLAINT: - CELLULITIS DIAGNOSES: - Contact with and (suspected) exposure to other viral communicable diseases - Dementia in other diseases classified elsewhere without behavioral disturbance - Paroxysmal atrial fibrillation - Paroxysmal atrial fibrillation - Hyperlipidemia, unspecified - Chronic obstructive pulmonary disease, unspecified - Alzheimer's disease, unspecified - Presence of cardiac pacemaker - Presence of cardiac pacemaker - Hyperlipidemia, unspecified - Cellulitis of right lower limb - Hypothyroidism, unspecified - Atherosclerotic heart disease of [place] coronary artery without angina pectoris - Alzheimer's disease, unspecified - Chronic diastolic (congestive) heart failure - Chronic obstructive pulmonary disease, unspecified - Atherosclerotic heart disease of [place] coronary artery without angina pectoris - nursing home (current) use of anticoagulants - nursing home (current) use of anticoagulants - Dementia in other diseases classified elsewhere without behavioral disturbance - Chronic diastolic (congestive) heart failure - Hypothyroidism, unspecified 04/09/2020 12:[address] [facility] [address] [facility] [place] TYPE: Medical Surgical COMPLAINT: - COPD EXACERBATION / RULE OUT COVID DIAGNOSES: - director long term care (current) use of inhaled steroids - nursing home (current) use of inhaled steroids - Other specified disorders of veins - Presence of prosthetic heart valve - Presence of cardiac pacemaker - Hypoxemia - Disorientation, unspecified - Other terminal system operator (current) drug therapy - Unspecified hearing loss, unspecified ear - nursing home (current) use of anticoagulants - Abnormal coagulation profile - Other group home (current) drug therapy - Latex allergy status - Acute on chronic diastolic (congestive) heart failure - Presence of cardiac pacemaker - Unspecified hearing loss, unspecified ear - Contact with and (suspected) exposure to other viral communicable diseases - Presence of aortocoronary bypass graft - Abnormal coagulation profile - Disorientation, unspecified - Unspecified dementia without behavioral disturbance - Other chronic pain - Contact with and (suspected) exposure to other viral communicable diseases - Other chronic pain - Other specified disorders of veins - nursing home (current) use of anticoagulants - Gout, unspecified - Hypothyroidism, unspecified - Latex allergy status - Hypothyroidism, unspecified - Presence of prosthetic heart valve - Presence of aortocoronary bypass graft - Unspecified dementia without behavioral disturbance - Acute on chronic diastolic (congestive) heart failure - Chronic obstructive pulmonary disease with (acute) exacerbation - Gout, unspecified - Hypoxemia [email or web address]
--- NOTE | 2020-08-31 18:17 | EKG ---
[facility] [address] [facility] [place] [address] Signed Atrial-paced rhythm Left bundle branch block Abnormal ECG When compared with ECG of 28-JUN-2020 13:27, premature ventricular complexes are no longer present Confirmed by DORA ALEXANDRE DO ([id number]) on 08/31/2020 6:16:54 PM Electronically Signed By: DORA ALEXANDRE DO 08/31/20 1817 PATIENT NAME: JACKLYN PATEL Electrocardiogram DATE OF : 31 PHYSICIAN: DORA ALEXANDRE DO REPORT #: [id number] REPORT IS CONFIDENTIAL AND NOT TO BE RELEASED WITHOUT AUTHORIZATION
== END 2020-08-31 16:56 | disposition short-term general hospital (02) ==
LOC: ED 09:52
DX: I47.2 Ventricular tachycardia (principal); R41.0 Disorientation, unspecified; R53.1 Weakness; E78.5 Hyperlipidemia, unspecified; I11.0 Hypertensive heart disease with heart failure; I50.9 Heart failure, unspecified; E66.9 Obesity, unspecified; Z91.040 Latex allergy status; Z79.899 Other long term (current) drug therapy; Z79.01 Long term (current) use of anticoagulants; Z79.891 Long term (current) use of opiate analgesic
CPT/HCPCS: 71045; 80053; 81001; 82803; 83735; 83880; 84484; 85025; 85610; 93005; 93010; 96365; 96367; 99285-25; J0456; J0696; J7060

== ENCOUNTER 2020-09-09 09:34 | Emergency (ER) | payer MEDICARE, OTHER ==
[~2020-09-09] VITALS: Ht 167.6 cm; Wt 97.5 kg
--- OUTSIDE RECORDS SUMMARY | 2020-09-09 09:38 | XMS ---
PreManage Notification: JACKLYN PATEL Security Brim Rounder Events No recent Security Events currently on file CRITERIA MET - Group Notification - 6 ED Visits in 6 Months - [facility] - 2 Visits in 30 Days CARE PROVIDERS Lalo Nicholson [facility] Current PHONE: [phone] Leonila Cohen Dye Mixer/Freight Sales Broker 06/21/2020-Current PHONE: [phone] [facility] 07/10/2018-Current PHONE: Unknown Rikki has no Care Guidelines for this patient. 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 - PATIENT PCP IS DR SAIMA ANDERSON AT THE DC. 02/12/2018 [facility] Care Recommendation: This patient has had 5 or more Emergency Department visits in the last 12 months. Patient requires education on the scope and purpose of the ED as an acute care provider not a Primary Care Provider and should not be utilized for chronic conditions. If patient returns to ED please contact Community Health WorkerAnamaria at [phone]. These are guidelines and the provider should exercise clinical judgment when providing care. E.D. VISIT COUNT (12 MO.) 6 [facility] TOTAL 6 NOTE: Visits indicate total known visits. ED/UCC VISIT TRACKING (12 MO.) 09/09/2020 09:35 [facility] [place] TYPE: Emergency COMPLAINT: - FALL 08/31/2020 09:53 [facility] [place] TYPE: Emergency COMPLAINT: - CHEST PAIN DIAGNOSES: - Hypertensive heart disease with heart failure - Ventricular tachycardia - Disorientation, unspecified - Hyperlipidemia, unspecified - correction (current) use of opiate analgesic - Other fdc (current) drug therapy - Latex allergy status - Disorientation, unspecified - Chest pain, unspecified - Weakness - Obesity, unspecified - Heart failure, unspecified - correction (current) use of anticoagulants 06/28/2020 13:24 [facility] TYPE: Emergency COMPLAINT: - CHEST PAIN DIAGNOSES: - Heart failure, unspecified - Other chest pain - Chest pain, unspecified - Latex allergy status - Unspecified abdominal pain - Other intermediate accountant (current) drug therapy - Hyperlipidemia, unspecified - watermelon inspector (current) use of anticoagulants - Obesity, unspecified - correction (current) use of opiate analgesic - Constipation, unspecified - Hypertensive heart disease with heart failure 05/18/2020 09:35 [facility] TYPE: Emergency COMPLAINT: - SWOLLEN LEGS 04/29/2020 18:39 [facility] TYPE: Emergency COMPLAINT: - TOE PAIN DIAGNOSES: - Latex allergy status - Hypertensive heart disease with heart failure - Other intermediate accountant (current) drug therapy - Pain in right toe(s) - correction (current) use of anticoagulants - Heart failure, unspecified - Laceration without foreign body of right lesser toe(s) without damage to nail, initial encounter - Hyperlipidemia, unspecified - Contact with other nonpowered hand tool, initial encounter 04/09/2020 09:29 [facility] TYPE: Emergency COMPLAINT: - WEAKNESS, SOB INPATIENT VISIT TRACKING (12 MO.) 08/31/2020 18:34 [facility] TYPE: Internal Medicine DIAGNOSES: - Sick sinus syndrome - Alcoholic cirrhosis of liver without ascites - Pulmonary hypertension, unspecified - Presence of cardiac pacemaker - Obstructive sleep apnea (adult) (pediatric) - Presence of aortocoronary bypass graft - cardiac arrhythmia - Presence of prosthetic heart valve - Paroxysmal atrial fibrillation - Acute on chronic diastolic (congestive) heart failure - Ventricular tachycardia - Atherosclerotic heart disease of [place] coronary artery without angina pectoris - Chronic diastolic (congestive) heart failure - Acute respiratory failure with hypoxia - Essential (primary) hypertension 05/18/2020 12:59 [facility] TYPE: Medical [...] Hypothyroidism, unspecified - Atherosclerotic heart disease of [place] coronary artery without angina pectoris - Alzheimer's disease, unspecified - Chronic diastolic (congestive) heart failure - Chronic obstructive pulmonary disease, unspecified - Atherosclerotic heart disease of [place] coronary artery without angina pectoris - watermelon inspector (current) use of anticoagulants - watermelon inspector (current) use of anticoagulants - Dementia in other diseases classified elsewhere without behavioral disturbance - Chronic diastolic (congestive) heart failure - Hypothyroidism, unspecified 04/09/2020 12:[address] [facility] [facility] [place] TYPE: Medical Surgical COMPLAINT: - COPD EXACERBATION / RULE OUT COVID DIAGNOSES: - correction (current) use of inhaled steroids - watermelon inspector (current) use of inhaled steroids - Other specified disorders of veins - Presence of prosthetic heart valve - Presence of cardiac pacemaker - Hypoxemia - Disorientation, unspecified - Other intermediate accountant (current) drug therapy - Unspecified hearing loss, unspecified ear - correction (current) use of anticoagulants - Abnormal coagulation profile - Other intermediate accountant (current) drug therapy - Latex allergy status [...] - Other specified disorders of veins - correction (current) use of anticoagulants - Gout, unspecified - Hypothyroidism, unspecified - Latex allergy status - Hypothyroidism, unspecified - Presence of prosthetic heart valve - Presence of aortocoronary bypass graft - Unspecified dementia without behavioral disturbance - Acute on chronic diastolic (congestive) heart failure - Chronic obstructive pulmonary disease with (acute) exacerbation - Gout, unspecified - Hypoxemia [email or web address]
== END 2020-09-09 13:01 | disposition short-term general hospital (02) ==
LOC: ED 09:34
DX: S32.049A Unspecified fracture of fourth lumbar vertebra, initial encounter for closed fracture (principal); Z79.01 Long term (current) use of anticoagulants; R53.1 Weakness; W18.11XA Fall from or off toilet without subsequent striking against object, initial encounter; E78.5 Hyperlipidemia, unspecified; I11.0 Hypertensive heart disease with heart failure; I50.9 Heart failure, unspecified; E66.9 Obesity, unspecified; Z79.899 Other long term (current) drug therapy; Z91.040 Latex allergy status; Z79.891 Long term (current) use of opiate analgesic
CPT/HCPCS: 72100; 99285-25

== ENCOUNTER 2020-09-17 11:13 | Emergency (ER) | payer MEDICARE, OTHER ==
[~2020-09-17] VITALS: Ht 167.6 cm; Wt 97.5 kg
--- OUTSIDE RECORDS SUMMARY | 2020-09-17 11:16 | XMS ---
PreManage Notification: JACKLYN PATEL Security Paint Pourer Events No recent Security Events currently on file CRITERIA MET - Group Notification - 6 ED Visits in 6 Months - [facility] - 2 Visits in 30 Days CARE PROVIDERS Lalo Nicholson [facility] Current PHONE: [phone] Leonila Cohen Production Assembly Supervisor/Processing Talc And Borate Supervisor 06/21/2020-Current PHONE: [phone] SAIM[facility] ANDERSON [facility] 07/10/2018-Current PHONE: Unknown Rikki has no Care Guidelines for this patient. 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 - PATIENT PCP IS DR SAIMA ANDERSON AT THE [place]. 02/12/2018 [facility] Care Recommendation: This patient has had 5 or more Emergency Department visits in the last 12 months. Patient requires education on the scope and purpose of the ED as an acute care provider not a Primary Care Provider and should not be utilized for chronic conditions. If patient returns to ED please contact Community Health WorkerAnamaria at [phone]. These are guidelines and the provider should exercise clinical judgment when providing care. E.D. VISIT COUNT (12 MO[address] 7 [facility] TOTAL 7 NOTE: Visits indicate total known visits. ED/UCC VISIT TRACKING (12 MO.) [facility]17/2020 11[facility] [place] [facility]: Emergency COMPLAINT: - LEG PAIN, AND BLEEDING 09/09/2020 09:35 [facility]yereliana [facility] [place] TYPE: Emergency COMPLAINT: - FALL DIAGNOSES: - Fall from or off toilet without subsequent striking against object, initial encounter - termite exterminator helper (current) use of opiate analgesic - Hypertensive heart disease with heart failure - Unspecified fracture of fourth lumbar vertebra, initial encounter for closed fracture - Latex allergy status - Hyperlipidemia, unspecified - Heart failure, unspecified - Obesity, unspecified - Weakness - [facility] (current) use of anticoagulants - Other meterman (current) drug therapy 08/31/2020 09:53 KEZIA Dyereliana [place] [place] TYPE: Emergency COMPLAINT: - CHEST PAIN DIAGNOSES: - Hypertensive heart disease with heart failure - Ventricular tachycardia - Disorientation, unspecified - Hyperlipidemia, unspecified - [facility] (current) use of opiate analgesic - Other meterman (current) drug therapy - Latex allergy status - Disorientation, unspecified - Chest pain, unspecified - Weakness - Obesity, unspecified - Heart failure, unspecified - [facility] (current) use of anticoagulants 06/28/2020 13:24 [facility] Dyerony [place] [place] TYPE: Emergency COMPLAINT: - CHEST PAIN DIAGNOSES: - Heart failure, unspecified - Other chest pain - Chest pain, unspecified - Latex allergy status - Unspecified abdominal pain - Other custodial (current) drug therapy - Hyperlipidemia, unspecified - [facility] (current) use of anticoagulants - Obesity, unspecified - termite exterminator helper (current) use of opiate analgesic - Constipation, unspecified - Hypertensive heart disease with heart failure 05/18/2020 09:35 [facility] [place] TYPE: Emergency COMPLAINT: - SWOLLEN LEGS 04/29/2020 18:39 [facility] [place] TYPE: Emergency COMPLAINT: - TOE PAIN DIAGNOSES: - Latex allergy status - Hypertensive heart disease with heart failure - Other custodial (current) drug therapy - Pain in right toe(s) - [facility] (current) use of anticoagulants - Heart failure, unspecified - Laceration without foreign body of right lesser toe(s) without damage to nail, initial encounter - Hyperlipidemia, unspecified - Contact with other nonpowered hand tool, initial encounter 04/09/2020 09:29 KEZIA Barboza TYPE: Emergency COMPLAINT: - WEAKNESS, SOB INPATIENT VISIT TRACKING (12 MO.) 08/31/2020 18:34 [facility] TYPE: Internal Medicine DIAGNOSES: - Sick sinus [...] Ventricular tachycardia - Atherosclerotic heart disease of [place] coronary artery without angina pectoris - Chronic diastolic (congestive) heart failure - Acute respiratory failure with hypoxia - Essential (primary) hypertension 05/18/2020 12:59 KEZIA Barboza TYPE: Medical Surgical COMPLAINT: - CELLULITIS DIAGNOSES: [...] Hypothyroidism, unspecified - Atherosclerotic heart disease of [place] coronary artery without angina pectoris - Alzheimer's disease, unspecified - Chronic diastolic (congestive) heart failure - Chronic obstructive pulmonary disease, unspecified - Atherosclerotic heart disease of [place] coronary artery without angina pectoris - termite exterminator helper (current) use of anticoagulants - [facility] (current) use of anticoagulants - Dementia in other diseases classified elsewhere without behavioral disturbance - Chronic diastolic (congestive) heart failure - Hypothyroidism, unspecified 04/09/2020 12:[address] [facility] [facility] [place] TYPE: Medical Surgical COMPLAINT: - COPD EXACERBATION / RULE OUT COVID DIAGNOSES: - [facility] (current) use of inhaled steroids - [facility] (current) use of inhaled steroids - Other specified disorders of veins - Presence of prosthetic heart valve - Presence of cardiac pacemaker - Hypoxemia - Disorientation, unspecified - Other custodial (current) drug therapy - Unspecified hearing loss, unspecified ear - termite exterminator helper (current) use of anticoagulants - Abnormal coagulation profile - Other meterman (current) drug therapy - Latex allergy status [...] - Other specified disorders of veins - [facility] (current) use of anticoagulants - Gout, unspecified - Hypothyroidism, unspecified - Latex allergy status - Hypothyroidism, unspecified - Presence of prosthetic heart valve - Presence of aortocoronary bypass graft - Unspecified dementia without behavioral disturbance - Acute on chronic diastolic (congestive) heart failure - Chronic obstructive pulmonary disease with (acute) exacerbation - Gout, unspecified - Hypoxemia [email or web address]
== END 2020-09-17 12:53 | disposition home or self-care (01) ==
LOC: ED 11:13
DX: R60.0 Localized edema (principal); E78.5 Hyperlipidemia, unspecified; I11.0 Hypertensive heart disease with heart failure; I50.9 Heart failure, unspecified; E66.9 Obesity, unspecified; Z91.040 Latex allergy status; Z79.899 Other long term (current) drug therapy; Z79.01 Long term (current) use of anticoagulants
CPT/HCPCS: 99283

== ENCOUNTER 2020-09-29 09:46 | Emergency (ER) | payer MEDICARE, OTHER ==
[~2020-09-29] VITALS: Ht 167.6 cm; Wt 96.1 kg
--- OUTSIDE RECORDS SUMMARY | 2020-09-29 09:50 | XMS ---
PreManage Notification: JACKLYN PATEL Security Filterer Events No recent Security Events currently on file CRITERIA MET - Group Notification - 6 ED Visits in 6 Months - [facility] - 2 Visits in 30 Days CARE PROVIDERS Lalo Nicholson [facility] Current PHONE: [phone] Leonila Cohen Network Security Consultant/Doctor Of Radiology 06/21/2020-Current PHONE: [phone] [facility] 07/10/2018-Current PHONE: Unknown Rikki has no Care Guidelines for this patient. Care History Medical/Surgical 01/06/2019 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 - PATIENT PCP IS DR SAIMA ANDERSON AT THE [place]. 02/12/2018 [facility] Care Recommendation: This patient has had 5 or more Emergency Department visits in the last 12 months. Patient requires education on the scope and purpose of the ED as an acute care provider not a Primary Care Provider and should not be utilized for chronic conditions. If patient returns to ED please contact Community Health WorkerAnamaria at [phone]. These are guidelines and the provider should exercise clinical judgment when providing care. E.D. VISIT COUNT (12 MO.) 8 [facility] TOTAL 8 NOTE: Visits indicate total known visits. ED/UCC VISIT TRACKING (12 MO.) 09/29/2020 09:47 [facility] [place] TYPE: Emergency COMPLAINT: - FALL, BACK PAIN 09/17/2020 11:14 [facility] [place] TYPE: Emergency COMPLAINT: - LEG PAIN, AND BLEEDING DIAGNOSES: - Hyperlipidemia, unspecified - Other group home (current) drug therapy - Hypertensive heart disease with heart failure - Obesity, unspecified - Localized edema - halfway (current) use of anticoagulants - Heart failure, unspecified - Latex allergy status 09/09/2020 09:35 [facility] [place] TYPE: Emergency COMPLAINT: - FALL DIAGNOSES: - Fall from or off toilet without subsequent striking against object, initial encounter - spray stainer (current) use of opiate analgesic - Hypertensive heart disease with heart failure - Unspecified fracture of fourth lumbar vertebra, initial encounter for closed fracture - Latex allergy status - Hyperlipidemia, unspecified - Heart failure, unspecified - Obesity, unspecified - Weakness - spray stainer (current) use of anticoagulants - Other group home (current) drug therapy 08/31/2020 09:53 [facility] [place] TYPE: Emergency COMPLAINT: - CHEST PAIN DIAGNOSES: - Hypertensive heart disease with heart failure - Ventricular tachycardia - Disorientation, unspecified - Hyperlipidemia, unspecified - spray stainer (current) use of opiate analgesic - Other group home (current) drug therapy - Latex allergy status - Disorientation, unspecified - Chest pain, unspecified - Weakness - Obesity, unspecified - Heart failure, unspecified - spray stainer (current) use of anticoagulants 06/28/2020 13:24 [facility] [place] TYPE: Emergency COMPLAINT: - CHEST PAIN DIAGNOSES: - Heart failure, unspecified - Other chest pain - Chest pain, unspecified - Latex allergy status - Unspecified abdominal pain - Other tube heater (current) drug therapy - Hyperlipidemia, unspecified - spray stainer (current) use of anticoagulants - Obesity, unspecified - halfway (current) use of opiate analgesic - Constipation, unspecified - Hypertensive heart disease with heart failure 05/18/2020 09:35 [facility] [place] TYPE: Emergency COMPLAINT: - SWOLLEN LEGS 04/29/2020 18:39 [facility] [place] TYPE: Emergency COMPLAINT: - TOE PAIN DIAGNOSES: - Latex allergy status - Hypertensive heart disease with heart failure - Other group home (current) drug therapy - Pain in right toe(s) - halfway (current) use of anticoagulants - Heart failure, unspecified - Laceration without foreign body of right lesser toe(s) without damage to nail, initial encounter - Hyperlipidemia, unspecified - Contact with other nonpowered hand tool, initial encounter 04/09/2020 09:29 KEZIA Barboza TYPE: Emergency COMPLAINT: - WEAKNESS, SOB INPATIENT VISIT TRACKING (12 MO.) 08/31/2020 18:34 [facility] TYPE: Internal Medicine DIAGNOSES: - Sick sinus [...] Ventricular tachycardia - Atherosclerotic heart disease of [place] coronary artery without angina pectoris - Chronic [...] Hypothyroidism, unspecified - Atherosclerotic heart disease of [place] coronary artery without angina pectoris - Alzheimer's disease, unspecified - Chronic diastolic (congestive) heart failure - Chronic obstructive pulmonary disease, unspecified - Atherosclerotic heart disease of [place] coronary artery without angina pectoris - spray stainer (current) use of anticoagulants - halfway (current) use of anticoagulants - Dementia in other diseases classified elsewhere without behavioral disturbance - Chronic diastolic (congestive) heart failure - Hypothyroidism, unspecified 04/09/2020 12:28 [facility] [place] TYPE: Medical Surgical COMPLAINT: - COPD EXACERBATION / RULE OUT COVID DIAGNOSES: - halfway (current) use of inhaled steroids - spray stainer (current) use of inhaled steroids - Other specified disorders of veins - Presence of prosthetic heart valve - Presence of cardiac pacemaker - Hypoxemia - Disorientation, unspecified - Other tube heater (current) drug therapy - Unspecified hearing loss, unspecified ear - halfway (current) use of anticoagulants - Abnormal coagulation [...] - Other specified disorders of veins - halfway (current) use of anticoagulants - Gout, unspecified - Hypothyroidism, unspecified - Latex allergy status - Hypothyroidism, unspecified - Presence of prosthetic heart valve - Presence of aortocoronary bypass graft - Unspecified dementia without behavioral disturbance - Acute on chronic diastolic (congestive) heart failure - Chronic obstructive pulmonary disease with (acute) exacerbation - Gout, unspecified - Hypoxemia [email or web address]
== END 2020-09-29 13:05 | disposition home or self-care (01) ==
LOC: ED 09:46
DX: D64.9 Anemia, unspecified (principal); E78.5 Hyperlipidemia, unspecified; E66.9 Obesity, unspecified; I50.9 Heart failure, unspecified; Z91.040 Latex allergy status; Z79.899 Other long term (current) drug therapy; Z79.01 Long term (current) use of anticoagulants
CPT/HCPCS: 80053; 81001; 85025; 85610; 85730; 99285

== ENCOUNTER 2020-11-04 12:35 | Emergency (ER) | payer MEDICARE, OTHER ==
[~2020-11-04] VITALS: Ht 167.6 cm; Wt 95.7 kg
--- OUTSIDE RECORDS SUMMARY | 2020-11-04 12:38 | XMS ---
PreManage Notification: JACKLYN PATEL Security Automat Car Attendant Events No recent Security Events currently on file CRITERIA MET - Group Notification - 6 ED Visits in 6 Months CARE PROVIDERS Lalo Nicholson [facility] Current PHONE: [phone] Leonila Cohen Sack Sorter/Land Surveying Manager 06/21/2020-Current PHONE: [phone] [facility] 07/10/2018-Current PHONE: Unknown Rikki has no Care Guidelines for this patient. 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 - PATIENT PCP IS DR SAIMA ANDERSON AT THE [facility] 02/12/2018 [facility] Care Recommendation: This patient has had 5 or more Emergency Department visits in the last 12 months. Patient requires education on the scope and purpose of the ED as an acute care provider not a Primary Care Provider and should not be utilized for chronic conditions. If patient returns to ED please contact Community Health WorkerAnamaria at [phone]. These are guidelines and the provider should exercise clinical judgment when providing care. [facility] NOTE: Visits indicate total known visits. ED/UCC VISIT TRACKING (12 MO.) [facility]2020 [facility] [place] [facility] COMPLAINT: - RASH ON L FOREARM 09/29/2020 09:47 [facility] [place] TYPE: Emergency COMPLAINT: - FALL, BACK PAIN DIAGNOSES: - Heart failure, unspecified - Hyperlipidemia, unspecified - Latex allergy status - Other long-term (current) drug therapy - Obesity, unspecified - Weakness - Anemia, unspecified - shelter (current) use of anticoagulants 09/17/2020 11:14 [facility] [place] TYPE: Emergency COMPLAINT: - LEG PAIN, AND BLEEDING DIAGNOSES: - Hyperlipidemia, unspecified - Other long-term (current) drug therapy - Hypertensive heart disease with heart failure - Obesity, unspecified - Localized edema - shelter (current) use of anticoagulants - Heart failure, unspecified - Latex allergy status 09/09/2020 09:35 [facility] [place] TYPE: Emergency COMPLAINT: - FALL DIAGNOSES: - Fall from or off toilet without subsequent striking against object, initial encounter - computer terminal operator (current) use of opiate analgesic - Hypertensive heart disease with heart failure - Unspecified fracture of fourth lumbar vertebra, initial encounter for closed fracture - Latex allergy status - Hyperlipidemia, unspecified - Heart failure, unspecified - Obesity, unspecified - Weakness - shelter (current) use of anticoagulants - Other terminal operations supervisor (current) drug therapy 08/31/2020 09:53 [facility] [place] TYPE: Emergency COMPLAINT: - CHEST PAIN DIAGNOSES: - Hypertensive heart disease with heart failure - Ventricular tachycardia - Disorientation, unspecified - Hyperlipidemia, unspecified - shelter (current) use of opiate analgesic - Other terminal operations supervisor (current) drug therapy - Latex allergy status - Disorientation, unspecified - Chest pain, unspecified - Weakness - Obesity, unspecified - Heart failure, unspecified - shelter (current) use of anticoagulants 06/28/2020 13:24 [facility] [place] TYPE: Emergency COMPLAINT: - CHEST PAIN DIAGNOSES: - Heart failure, unspecified - Other chest pain - Chest pain, unspecified - Latex allergy status - Unspecified abdominal pain - Other terminal operations supervisor (current) drug therapy - Hyperlipidemia, unspecified - shelter (current) use of anticoagulants - Obesity, unspecified - computer terminal operator (current) use of opiate analgesic - Constipation, unspecified - Hypertensive heart disease with heart failure 05/18/2020 09:[address] [facility] [place] TYPE: Emergency COMPLAINT: - SWOLLEN LEGS 04/29/2020 18:[address] [facility] [place] TYPE: Emergency COMPLAINT: - TOE PAIN DIAGNOSES: - Latex allergy status - Hypertensive heart disease with heart failure - Other terminal operations supervisor (current) drug therapy - Pain in right toe(s) - computer terminal operator (current) use of anticoagulants - Heart failure, unspecified - Laceration without foreign body of right lesser toe(s) without damage to nail, initial encounter - Hyperlipidemia, unspecified - Contact with other nonpowered hand tool, initial encounter 04/09/2020 09:[address] [facility] [place] TYPE: Emergency COMPLAINT: - WEAKNESS, SOB INPATIENT VISIT TRACKING (12 MO.) 08/31/2020 [facility]:[address] [facility] TYPE: Internal Medicine DIAGNOSES: - Sick sinus [...] Ventricular tachycardia - Atherosclerotic heart disease of [place] coronary artery without angina pectoris - Chronic [...] Hypothyroidism, unspecified - Atherosclerotic heart disease of [place] coronary artery without angina pectoris - Alzheimer's disease, unspecified - Chronic diastolic (congestive) heart failure - Chronic obstructive pulmonary disease, unspecified - Atherosclerotic heart disease of [place] coronary artery without angina pectoris - computer terminal operator (current) use of anticoagulants - shelter (current) use of anticoagulants - Dementia in other diseases classified elsewhere without behavioral disturbance - Chronic diastolic (congestive) heart failure - Hypothyroidism, unspecified 04/09/2020 12:[address] [facility] [place] TYPE: Medical Surgical COMPLAINT: - COPD EXACERBATION / RULE OUT COVID DIAGNOSES: - shelter (current) use of inhaled steroids - computer terminal operator (current) use of inhaled steroids - Other specified disorders of veins - Presence of prosthetic heart valve - Presence of cardiac pacemaker - Hypoxemia - Disorientation, unspecified - Other terminal operations supervisor (current) drug therapy - Unspecified hearing loss, unspecified ear - shelter (current) use of anticoagulants - Abnormal coagulation profile - Other long-term (current) drug therapy - Latex allergy status [...] - Other specified disorders of veins - shelter (current) use of anticoagulants - Gout, unspecified - Hypothyroidism, unspecified - Latex allergy status - Hypothyroidism, unspecified - Presence of prosthetic heart valve - Presence of aortocoronary bypass graft - Unspecified dementia without behavioral disturbance - Acute on chronic diastolic (congestive) heart failure - Chronic obstructive pulmonary disease with (acute) exacerbation - Gout, unspecified - Hypoxemia [email or web address]
[2020-11-04] MEDS ORDERED: CEPHALEXIN500 M1 PO (17:06)
--- NOTE | 2020-11-04 19:03 | EKG ---
[facility] [address] [place] [address] Signed Atrial-paced rhythm with prolonged AV conduction with occasional ventricular-paced complexes and premature supraventricular complexes and with frequent premature ventricular complexes Left bundle branch block Abnormal ECG When compared with ECG of 31-AUG-2020 09:56, Electronic ventricular pacemaker has replaced Electronic atrial pacemaker Vent. rate has increased BY 40 BPM Confirmed by DORA ALEXANDRE DO ([id number]) on 11/04/2020 7:03:08 PM Electronically Signed By: DORA ALEXANDRE DO 11/04/20 1903 PATIENT NAME: JACKLYN PATEL Electrocardiogram DATE OF : 31 PHYSICIAN: DORA ALEXANDRE DO REPORT #: [id number] REPORT IS CONFIDENTIAL AND NOT TO BE RELEASED WITHOUT AUTHORIZATION
== END 2020-11-04 18:36 | disposition home or self-care (01) ==
LOC: ED 12:35
DX: I89.1 Lymphangitis (principal); E78.5 Hyperlipidemia, unspecified; I11.0 Hypertensive heart disease with heart failure; E66.9 Obesity, unspecified; I50.9 Heart failure, unspecified; Z91.040 Latex allergy status; Z79.899 Other long term (current) drug therapy; Z79.01 Long term (current) use of anticoagulants; Z79.891 Long term (current) use of opiate analgesic
CPT/HCPCS: 80053; 83605; 83735; 84484; 85025; 85610; 93005; 93010; 96365; 99283-25; J0696

== ENCOUNTER 2020-12-28 20:59 | Emergency (ER) | payer MEDICARE, OTHER ==
[~2020-12-28] VITALS: Ht 167.6 cm; Wt 95.7 kg
[~2020-12-28 20:59] MED LIST changes: +CEPHALEXIN500 M1 PO
--- OUTSIDE RECORDS SUMMARY | 2020-12-28 21:02 | XMS ---
PreManage Notification: JACKLYN PATEL Security Roll Icer Machine Events No recent Security Events currently on file CRITERIA MET - Group Notification - 6 ED Visits in 6 Months CARE PROVIDERS IKER Coats Energy Advisor: Clinical 11/07/2020-Current [facility] \F\ [facility] PHONE: [phone] Lalo Nicholson [facility] Current PHONE: [phone] Leonila Cohen Line Crew Supervisor/Nutrition And Dietetics Instructor 11/21/2020-Current PHONE: [phone] SAIMA ANDERSON Pediatric[facility] 07/10/2018-Current PHONE: Unknown Rikki has no Care Guidelines for this patient. 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 - PATIENT PCP IS DR SAIMA ANDERSON AT [facility] [place]. 02/12/2018 [facility] Care Recommendation: This patient has had 5 or more Emergency Department visits in the last 12 months. Patient requires education on the scope and purpose of the ED as an acute care provider not a Primary Care Provider and should not be utilized for chronic conditions. If patient returns to ED please contact Community Health WorkerAnamaria at [phone]. These are guidelines and the provider should exercise clinical judgment when providing care. E.D. VISIT COUNT (12 MO.) 10 [facility]. TOTAL 10 NOTE: Visits indicate total known visits. ED/UCC VISIT TRACKING (12 MO.) 12/28/2020 21:00 [facility] [place] TYPE: Emergency COMPLAINT: - FALL 11/04/2020 12:36 [facility] [place] TYPE: Emergency COMPLAINT: - RASH ON L FOREARM DIAGNOSES: - Heart failure, unspecified - Hypertensive heart disease with heart failure - Obesity, unspecified - detention (current) use of anticoagulants - detention (current) use of opiate analgesic - Pain in left arm - Hyperlipidemia, unspecified - Lymphangitis - Other skilled nursing (current) drug therapy - Latex allergy status 09/29/2020 09:47 [facility] [place] TYPE: Emergency COMPLAINT: - FALL, BACK PAIN DIAGNOSES: - Heart failure, unspecified - Hyperlipidemia, unspecified - Latex allergy status - Other joint terminal attack controller (current) drug therapy - Obesity, unspecified - Weakness - Anemia, unspecified - detention (current) use of anticoagulants 09/17/2020 11:14 [facility] [place] TYPE: Emergency COMPLAINT: - LEG PAIN, AND BLEEDING DIAGNOSES: - Hyperlipidemia, unspecified - Other skilled nursing (current) drug therapy - Hypertensive heart disease with heart failure - Obesity, unspecified - Localized edema - detention (current) use of anticoagulants - Heart failure, unspecified - Latex allergy status 09/09/2020 09:35 [facility] [place] TYPE: Emergency COMPLAINT: - FALL DIAGNOSES: - Fall from or off toilet without subsequent striking against object, initial encounter - detention (current) use of opiate analgesic - Hypertensive heart disease with heart failure - Unspecified fracture of fourth lumbar vertebra, initial encounter for closed fracture - Latex allergy status - Hyperlipidemia, unspecified - Heart failure, unspecified - Obesity, unspecified - Weakness - detention (current) use of anticoagulants - Other joint terminal attack controller (current) drug therapy 08/31/2020 09:53 [facility] [place] TYPE: Emergency COMPLAINT: - CHEST PAIN DIAGNOSES: - Hypertensive heart disease with heart failure - Ventricular tachycardia - Disorientation, unspecified - Hyperlipidemia, unspecified - detention (current) use of opiate analgesic - Other joint terminal attack controller (current) drug therapy - Latex allergy status - Disorientation, unspecified - Chest pain, unspecified - Weakness - Obesity, unspecified - Heart failure, unspecified - moth exterminator (current) use of anticoagulants 06/28/2020 13:24 [facility] [place] TYPE: Emergency COMPLAINT: - CHEST PAIN DIAGNOSES: - Heart failure, unspecified - Other chest pain - Chest pain, unspecified - Latex allergy status - Unspecified abdominal pain - Other joint terminal attack controller (current) drug therapy - Hyperlipidemia, unspecified - detention (current) use of anticoagulants - Obesity, unspecified - moth exterminator (current) use of opiate analgesic - Constipation, unspecified - Hypertensive heart disease with heart failure 05/18/2020 09:35 [facility] [place] TYPE: Emergency COMPLAINT: - SWOLLEN LEGS 04/29/2020 18:39 [facility] [place] TYPE: Emergency COMPLAINT: - TOE PAIN DIAGNOSES: - Latex allergy status - Hypertensive heart disease with heart failure - Other joint terminal attack controller (current) drug therapy - Pain in right toe(s) - detention (current) use of anticoagulants - Heart failure, unspecified - Laceration without foreign body of right lesser toe(s) without damage to nail, initial encounter - Hyperlipidemia, unspecified - Contact with other nonpowered hand tool, initial encounter 04/09/2020 09:29 [facility] TYPE: Emergency COMPLAINT: - WEAKNESS, SOB INPATIENT VISIT TRACKING (12 MO.) 08/31/2020 18:34 [facility]ika Le[facility] [place] TYPE: Internal Medicine DIAGNOSES: - Sick sinus [...] Ventricular tachycardia - Atherosclerotic heart disease of [place] coronary artery without angina pectoris - Chronic [...] Hypothyroidism, unspecified - Atherosclerotic heart disease of [place] coronary artery without angina pectoris - Alzheimer's disease, unspecified - Chronic diastolic (congestive) heart failure - Chronic obstructive pulmonary disease, unspecified - Atherosclerotic heart disease of [place] coronary artery without angina pectoris - detention (current) use of anticoagulants - moth exterminator (current) use of anticoagulants - Dementia in other diseases classified elsewhere without behavioral disturbance - Chronic diastolic (congestive) heart failure - Hypothyroidism, unspecified 04/09/2020 12:28 [facility] [place] TYPE: Medical Surgical COMPLAINT: - COPD EXACERBATION / RULE OUT COVID DIAGNOSES: - detention (current) use of inhaled steroids - detention (current) use of inhaled steroids - Other specified disorders of veins - Presence of prosthetic heart valve - Presence of cardiac pacemaker - Hypoxemia - Disorientation, unspecified - Other skilled nursing (current) drug therapy - Unspecified hearing loss, unspecified ear - detention (current) use of anticoagulants - Abnormal coagulation profile - Other joint terminal attack controller (current) drug therapy - Latex allergy status [...] - Other specified disorders of veins - detention (current) use of anticoagulants - Gout, unspecified - Hypothyroidism, unspecified - Latex allergy status - Hypothyroidism, unspecified - Presence of prosthetic heart valve - Presence of aortocoronary bypass graft - Unspecified dementia without behavioral disturbance - Acute on chronic diastolic (congestive) heart failure - Chronic obstructive pulmonary disease with (acute) exacerbation - Gout, unspecified - Hypoxemia [email or web address]
== END 2020-12-29 00:55 | disposition home or self-care (01) ==
LOC: ED 20:59
DX: S51.812A Laceration without foreign body of left forearm, initial encounter (principal); W22.8XXA Striking against or struck by other objects, initial encounter; E78.5 Hyperlipidemia, unspecified; I11.0 Hypertensive heart disease with heart failure; E66.9 Obesity, unspecified; I50.9 Heart failure, unspecified; Z91.040 Latex allergy status; Z79.899 Other long term (current) drug therapy; Z79.01 Long term (current) use of anticoagulants
CPT/HCPCS: 85610; 99283

== ENCOUNTER 2021-01-18 09:37 | Emergency (ER) | payer MEDICARE, OTHER ==
[~2021-01-18] VITALS: Ht 167.6 cm; Wt 95.7 kg
[~2021-01-18 09:37] MED LIST changes: +WARFARIN SODIUM2 MG PO
--- OUTSIDE RECORDS SUMMARY | 2021-01-18 09:40 | XMS ---
PreManage Notification: JACKLYN PATEL Security Rim Fire Charger Operator Events No recent Security Events currently on file CRITERIA MET - Group Notification - 6 ED Visits in 6 Months - [facility] - 2 Visits in 30 Days CARE PROVIDERS IKER Coats Security Operations Center Analyst: Clinical 11/07/2020-Current [facility] \F\ [facility] PHONE: [phone] Lalo Nicholson [facility] Current PHONE: [phone] Leonila Cohen Post Splitter/Blackener 11/21/2020-Current PHONE: [phone] SAIMA ANDERSON 07/10/2018-Current PHONE: Unknown Rikki has no Care Guidelines for this patient. 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 - PATIENT PCP IS DR SAIMA ANDERSON AT THE [place]. 02/12/2018 [facility] Care Recommendation: This patient has had 5 or more Emergency Department visits in the last 12 months. Patient requires education on the scope and purpose of the ED as an acute care provider not a Primary Care Provider and should not be utilized for chronic conditions. If patient returns to ED please contact Community Health WorkerAnamaria at [phone]. These are guidelines and the provider should exercise clinical judgment when providing care. E.D. VISIT COUNT (12 MO.) 11 [facility] TOTAL 11 NOTE: Visits indicate total known visits. ED/UCC VISIT TRACKING (12 MO.) 01/18/2021 09:37 [facility] [place] TYPE: Emergency COMPLAINT: - FALL 12/28/2020 21:00 [facility] [place] TYPE: Emergency COMPLAINT: - FALL DIAGNOSES: - Obesity, unspecified - Hyperlipidemia, unspecified - Other closed circuit screen watcher (current) drug therapy - Striking against or struck by other objects, initial encounter - Hypertensive heart disease with heart failure - Latex allergy status - residential (current) use of anticoagulants - Laceration without foreign body of left forearm, initial encounter - Heart failure, unspecified 11/04/2020 12:36 [facility] [place] TYPE: Emergency COMPLAINT: - RASH ON L FOREARM DIAGNOSES: - Heart failure, unspecified - Hypertensive heart disease with heart failure - Obesity, unspecified - residential (current) use of anticoagulants - finished cloth examiner (current) use of opiate analgesic - Pain in left arm - Hyperlipidemia, unspecified - Lymphangitis - Other closed circuit screen watcher (current) drug therapy - Latex allergy status 09/29/2020 09:47 [facility] [place] TYPE: Emergency COMPLAINT: - FALL, BACK PAIN DIAGNOSES: - Heart failure, unspecified - Hyperlipidemia, unspecified - Latex allergy status - Other assisted (current) drug therapy - Obesity, unspecified - Weakness - Anemia, unspecified - residential (current) use of anticoagulants 09/17/2020 11:14 [facility] [place] TYPE: Emergency COMPLAINT: - LEG PAIN, AND BLEEDING DIAGNOSES: - Hyperlipidemia, unspecified - Other closed circuit screen watcher (current) drug therapy - Hypertensive heart disease with heart failure - Obesity, unspecified - Localized edema - finished cloth examiner (current) use of anticoagulants - Heart failure, unspecified - Latex allergy status 09/09/2020 09:35 [facility] [place] TYPE: Emergency COMPLAINT: - FALL DIAGNOSES: - Fall from or off toilet without subsequent striking against object, initial encounter - residential (current) use of opiate analgesic - Hypertensive heart disease with heart failure - Unspecified fracture of fourth lumbar vertebra, initial encounter for closed fracture - Latex allergy status - Hyperlipidemia, unspecified - Heart failure, unspecified - Obesity, unspecified - Weakness - finished cloth examiner (current) use of anticoagulants - Other assisted (current) drug therapy 08/31/2020 09:53 [facility] [place] TYPE: Emergency COMPLAINT: - CHEST PAIN DIAGNOSES: - Hypertensive heart disease with heart failure - Ventricular tachycardia - Disorientation, unspecified - Hyperlipidemia, unspecified - residential (current) use of opiate analgesic - Other closed circuit screen watcher (current) drug therapy - Latex allergy status - Disorientation, unspecified - Chest pain, unspecified - Weakness - Obesity, unspecified - Heart failure, unspecified - residential (current) use of anticoagulants 06/28/2020 13:24 [facility] [place] TYPE: Emergency COMPLAINT: - CHEST PAIN DIAGNOSES: - Heart failure, unspecified - Other chest pain - Chest pain, unspecified - Latex allergy status - Unspecified abdominal pain - Other closed circuit screen watcher (current) drug therapy - Hyperlipidemia, unspecified - finished cloth examiner (current) use of anticoagulants - Obesity, unspecified - finished cloth examiner (current) use of opiate analgesic - Constipation, unspecified - Hypertensive heart disease with heart failure 05/18/2020 09:[address] [place] TYPE: Emergency COMPLAINT: - SWOLLEN LEGS 04/29/2020 18:[address] [place] TYPE: Emergency COMPLAINT: - TOE PAIN DIAGNOSES: - Latex allergy status - Hypertensive heart disease with heart failure - Other closed circuit screen watcher (current) drug therapy - Pain in right toe(s) - finished cloth examiner (current) use of anticoagulants - Heart failure, unspecified - Laceration without foreign body of right lesser toe(s) without damage to nail, initial encounter - Hyperlipidemia, unspecified - Contact with other nonpowered hand tool, initial encounter 04/09/2020 09:[address] [facility] [place] TYPE: Emergency COMPLAINT: - WEAKNESS, SOB INPATIENT VISIT TRACKING (12 MO.) 08/31/2020 [facility] TYPE: Internal Medicine DIAGNOSES: - Sick [...] Ventricular tachycardia - Atherosclerotic heart disease of [place] coronary artery without angina pectoris - Chronic [...] Hypothyroidism, unspecified - Atherosclerotic heart disease of [place] coronary artery without angina pectoris - Alzheimer's disease, unspecified - Chronic diastolic (congestive) heart failure - Chronic obstructive pulmonary disease, unspecified - Atherosclerotic heart disease of [place] coronary artery without angina pectoris - residential (current) use of anticoagulants - residential (current) use of anticoagulants - Dementia in other diseases classified elsewhere without behavioral disturbance - Chronic diastolic (congestive) heart failure - Hypothyroidism, unspecified 04/09/2020 12:[address] [facility] [place] TYPE: Medical Surgical COMPLAINT: - COPD EXACERBATION / RULE OUT COVID DIAGNOSES: - finished cloth examiner (current) use of inhaled steroids - finished cloth examiner (current) use of inhaled steroids - Other specified disorders of veins - Presence of prosthetic heart valve - Presence of cardiac pacemaker - Hypoxemia - Disorientation, unspecified - Other closed circuit screen watcher (current) drug therapy - Unspecified hearing loss, unspecified ear - finished cloth examiner (current) use of anticoagulants - Abnormal coagulation profile - Other assisted (current) drug therapy - Latex allergy status [...] - Other specified disorders of veins - finished cloth examiner (current) use of anticoagulants - Gout, unspecified - Hypothyroidism, unspecified - Latex allergy status - Hypothyroidism, unspecified - Presence of prosthetic heart valve - Presence of aortocoronary bypass graft - Unspecified dementia without behavioral disturbance - Acute on chronic diastolic (congestive) heart failure - Chronic obstructive pulmonary disease with (acute) exacerbation - Gout, unspecified - Hypoxemia [email or web address]
[2021-01-18] MEDS ORDERED: CARBOXYMETHYLCE15 ML OU (09:51)
[2021-01-18] MEDS ORDERED: FEOSOL325 MG PO (09:52)
--- NOTE | 2021-01-18 13:47 | EKG ---
[facility] [address] [facility] [address] [facility] [place] [address] Signed Atrial-paced rhythm Left bundle branch block Abnormal ECG When compared with ECG of 04-NOV-2020 14:06, Electronic atrial pacemaker has replaced Electronic ventricular pacemaker Vent. rate has decreased BY 45 BPM Confirmed by GERI ELLISON MD ([id number]) on 01/18/2021 1:47:39 PM Electronically Signed By: GERI ELLISON MD 01/18/21 1347 PATIENT NAME: JACKLYN PATEL Electrocardiogram DATE OF : 31 PHYSICIAN: GERI ELLISON MD REPORT #: [id number] REPORT IS CONFIDENTIAL AND NOT TO BE RELEASED WITHOUT AUTHORIZATION
== END 2021-01-18 15:19 | disposition home or self-care (01) ==
LOC: ED 09:37
DX: S41.112A Laceration without foreign body of left upper arm, initial encounter (principal); S00.93XA Contusion of unspecified part of head, initial encounter; S20.219A Contusion of unspecified front wall of thorax, initial encounter; S40.022A Contusion of left upper arm, initial encounter; S40.021A Contusion of right upper arm, initial encounter; S80.12XA Contusion of left lower leg, initial encounter; S80.11XA Contusion of right lower leg, initial encounter; E86.0 Dehydration; W19.XXXA Unspecified fall, initial encounter; E78.5 Hyperlipidemia, unspecified; I11.0 Hypertensive heart disease with heart failure; M10.9 Gout, unspecified; E66.9 Obesity, unspecified; I50.9 Heart failure, unspecified; Z91.040 Latex allergy status; Z79.899 Other long term (current) drug therapy; Z79.01 Long term (current) use of anticoagulants
CPT/HCPCS: 70450; 71045; 72125; 73610; 73630; 74176; 80053; 81001; 82550; 83690; 83880; 84484; 85025; 85610; 93005; 93010; 99285-25

== ENCOUNTER 2021-01-20 10:53 | Inpatient (IN) | payer MEDICARE, OTHER ==
[~2021-01-20] VITALS: Ht 167.6 cm; Wt 86.6 kg
--- NOTE | ~2021-01-20 | CONS ---
[facility] [address], [place] [address] Draft DATE OF CONSULTATION: 01/22/2021 CONSULTING PHYSICIAN: Daniella Weems MD REQUESTING PHYSICIAN: Dora Pederson MD PROBLEM: Painful feet and calves following fall and known metabolic encephalopathy. HISTORY: This 85-year-old white man was admitted on January [address] Pederson for weakness and confusion, and considered to have metabolic encephalopathy. His son had found him in his home with his legs tangled up in the bottom of an office chair-type piece of furniture. The patient had been confused previously, but markedly worse and then off and on taken his medications and not eating much in the preceding days. He was also likely hallucinating. The patient had bilateral lower extremity pain at the time of presentation. He is known to have paroxysmal atrial fibrillation and chronic diastolic heart failure as well as coronary artery disease with history of CABG and history of aortic valve replacement chronically anticoagulated with Coumadin. He additionally had other problems including obstructive sleep apnea, hypothyroidism, and probable history of liver cirrhosis and known Alzheimer's dementia. He had numerous medications at home, which importantly have included Synthroid, warfarin, metoprolol, amiodarone, and many others. His admission laboratory studies showed normal electrolytes and creatinine elevated at 1.87. Troponin less at 0.041 (normal less than 0.1) with a creatine kinase of 137. INR of 3.0 with a white count of 11.3, hematocrit 31. Platelets were only 99545. Urinalysis was essentially normal. The patient's bilateral lower extremity pain has been localized mostly in the ankle and foot areas. He uses some sort of ointment at home that makes him feel better. He describes the pain as severe yesterday, worse with touch and with mild associated erythema. His creatine kinase has improved, down to 87. His INR is elevated at 4.0 [place] [address]. His blood gas appears reasonably normal. Although I was not on-call, I was asked to consult on his situation as regard to pain. The patient was considered likely to have cellulitis related to the erythema of his lower extremities, left worse than right. Today, persistent erythema is noted, but his pain remains as well. He has marked frailty, generalized obesity. He does not have pain without manipulation of lower extremities, ankle area, particularly. PATIENT NAME: JACKLYN PATEL CONSULTATION DATE OF : 31 REPORT #: [id number] PHYSICIAN: DANIELLA WEEMS MD PCP: SAIMA ANDERSON MD REPORT IS CONFIDENTIAL AND NOT TO BE RELEASED WITHOUT AUTHORIZATION [facility] [address], [place] [address] Draft PHYSICAL EXAMINATION: GENERAL: This is a very obese white man who looks to be at the end of life generally speaking. His trachea is midline. He has no air hunger or dyspnea in appearance. VITAL SIGNS: His temperature is 98.4, pulse 71, pulse oximetry on room air is 93%. ABDOMEN: Quite obese. EXTREMITIES: Femoral pulses bilaterally, 3/3 on the right and 2/3 on the left. The extremities on left and right side are warm throughout including the thigh, calf, foot, and ankle. He has violaceous skin bilaterally including the ankles and feet. He does have tenderness to palpation of the lower extremities above the ankle. He does not have a tense compartment of the calf or ankle bilaterally that I can tell. Passive flexion of the ankle gives only minor discomfort bilaterally. SKIN: Smooth and the underlying skin somewhat erythematous and violaceous. There is no sign of undrained purulence. Skin is intact. There is no wrinkling, no disruption in any way. LABORATORY DATA: Lab studies from today reviewed showing a white count of 10.7, hematocrit 27.9, platelets 105,000 with an INR today of 3.8. His COVID test is negative. ASSESSMENT: The feet are warm and clinically well-perfused bilaterally. Cellulitis may be the underlying etiology of his discomfort and he is on ceftriaxone at this time. I see no undrained purulent collections. Proximal inflow appears clinically to be good with femoral pulses intact. It is difficult to discern his ankle and dorsalis pedis pulses bilaterally. His creatine kinase is normal and not elevated. The chance of an isolated muscle compartment syndrome is a consideration, but less likely. Imaging studies with a CT scan with contrast would be relatively forbidden, given his elevated creatinine and likely precarious status from a renovascular standpoint. Ultrasonographic evaluation for thrombus is a consideration, however, he has been fully anticoagulated and with relative thrombocytopenia even before admission and therefore, a thrombotic cause of his discomfort would be less likely. His son says he does not usually have the rubor that is noted of his lower extremities typically, but I think it is unlikely that he is certain about that in discussion with him about it. For now, continued antibiotics and observation are warranted. The symptoms have been going on for a few days already and apparently not worsening, simply not improving particularly. If persistent concern is maintained, compartment pressures might be considered when available. Note, he does not have tense rock hard calf muscles as is typically the case, lower extremity compartment syndrome, though the possibility of isolated compartment syndrome elsewhere related to his somewhat unusual trauma at outside of the ailment would have to be considered. The patient has numerous comorbidities and very limited expectation of longevity in my estimation. Comfort measures are always appropriate of course and the possibility that elevation of the lower extremities might bring some relief is considered as well. We PATIENT NAME: JACKLYN PATEL CONSULTATION DATE OF : 33 REPORT #: [id number] PHYSICIAN: DANIELLA WEEMS MD PCP: SAIMA ANDERSON MD REPORT IS CONFIDENTIAL AND NOT TO BE RELEASED WITHOUT AUTHORIZATION [facility] [address] [facility] [place] [address] Draft will review that also with Dr. Pederson. MD ROBIN Reis/ALICEL /[id number] cc: Dora Pederson MD Copies: DORA PEDERSON DO ~ PATIENT NAME: JACKLYN PATEL CONSULTATION DATE OF : 33 REPORT #: [id number] PHYSICIAN: DANIELLA WEEMS MD PCP: SAIMA ANDERSON MD REPORT IS CONFIDENTIAL AND NOT TO BE RELEASED WITHOUT AUTHORIZATION
[~2021-01-20 10:53] MED LIST changes: +CARBOXYMETHYLCE15 ML OU
--- OUTSIDE RECORDS SUMMARY | 2021-01-20 10:56 | XMS ---
PreManage Notification: JACKLYN PATEL Security Ingot Passer Events No recent Security Events currently on file CRITERIA MET - Group Notification - 6 ED Visits in 6 Months - [facility] - 2 Visits in 30 Days CARE PROVIDERS IKER Coats Automation Developer: Clinical 11/07/2020-Current [facility] \F\ [facility] PHONE: [phone] Lalo Nicholson [facility] Current PHONE: [phone] Leonila Cohen It Quality Analyst/Machine Hoop Maker Helper 11/21/2020-Current PHONE: [phone] SAIMA ANDERSON 07/10/2018-Current PHONE: Unknown Rikki has no Care Guidelines for this patient. 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 - PATIENT PCP IS DR SAIMA ANDERSON AT [facility] [place]. 02/12/2018 [facility] Care Recommendation: This patient has had 5 or more Emergency Department visits in the last 12 months. Patient requires education on the scope and purpose of the ED as an acute care provider not a Primary Care Provider and should not be utilized for chronic conditions. If patient returns to ED please contact Community Health WorkerAnamaria at [phone]. These are guidelines and the provider should exercise clinical judgment when providing care. E.D. VISIT COUNT (12 MO.) 12 [facility]. TOTAL 12 NOTE: Visits indicate total known visits. ED/UCC VISIT TRACKING (12 MO.) 01/20/2021 10:53 [facility] [place] TYPE: Emergency COMPLAINT: - POSSIBLE UTI 01/18/2021 09:37 [facility] [place] TYPE: Emergency COMPLAINT: - FALL 12/28/2020 21:00 [facility] [place] TYPE: Emergency COMPLAINT: - FALL DIAGNOSES: - Obesity, unspecified - Hyperlipidemia, unspecified - Other half-way (current) drug therapy - Striking against or struck by other objects, initial encounter - Hypertensive heart disease with heart failure - Latex allergy status - longterm (current) use of anticoagulants - Laceration without foreign body of left forearm, initial encounter - Heart failure, unspecified 11/04/2020 12:36 [facility] [place] TYPE: Emergency COMPLAINT: - RASH ON L FOREARM DIAGNOSES: - Heart failure, unspecified - Hypertensive heart disease with heart failure - Obesity, unspecified - superintendent terminal (current) use of anticoagulants - longterm (current) use of opiate analgesic - Pain in left arm - Hyperlipidemia, unspecified - Lymphangitis - Other longwall machine operator helper (current) drug therapy - Latex allergy status 09/29/2020 09:47 [facility] [place] TYPE: Emergency COMPLAINT: - FALL, BACK PAIN DIAGNOSES: - Heart failure, unspecified - Hyperlipidemia, unspecified - Latex allergy status - Other longwall machine operator helper (current) drug therapy - Obesity, unspecified - Weakness - Anemia, unspecified - superintendent terminal (current) use of anticoagulants 09/17/2020 11:14 [facility] [place] TYPE: Emergency COMPLAINT: - LEG PAIN, AND BLEEDING DIAGNOSES: - Hyperlipidemia, unspecified - Other longwall machine operator helper (current) drug therapy - Hypertensive heart disease with heart failure - Obesity, unspecified - Localized edema - superintendent terminal (current) use of anticoagulants - Heart failure, unspecified - Latex allergy status 09/09/2020 09:35 [facility] [place] TYPE: Emergency COMPLAINT: - FALL DIAGNOSES: - Fall from or off toilet without subsequent striking against object, initial encounter - longterm (current) use of opiate analgesic - Hypertensive heart disease with heart failure - Unspecified fracture of fourth lumbar vertebra, initial encounter for closed fracture - Latex allergy status - Hyperlipidemia, unspecified - Heart failure, unspecified - Obesity, unspecified - Weakness - superintendent terminal (current) use of anticoagulants - Other half-way (current) drug therapy 08/31/2020 09:53 [facility] [place] TYPE: Emergency COMPLAINT: - CHEST PAIN DIAGNOSES: - Hypertensive heart disease with heart failure - Ventricular tachycardia - Disorientation, unspecified - Hyperlipidemia, unspecified - superintendent terminal (current) use of opiate analgesic - Other half-way (current) drug therapy - Latex allergy status - Disorientation, unspecified - Chest pain, unspecified - Weakness - Obesity, unspecified - Heart failure, unspecified - superintendent terminal (current) use of anticoagulants 06/28/2020 13:24 [facility] [place] TYPE: Emergency COMPLAINT: - CHEST PAIN DIAGNOSES: - Heart failure, unspecified - Other chest pain - Chest pain, unspecified - Latex allergy status - Unspecified abdominal pain - Other half-way (current) drug therapy - Hyperlipidemia, unspecified - longterm (current) use of anticoagulants - Obesity, unspecified - superintendent terminal (current) use of opiate analgesic - Constipation, unspecified - Hypertensive heart disease with heart failure 05/18/2020 09:35 [facility] [place] TYPE: Emergency COMPLAINT: - SWOLLEN LEGS 04/29/2020 18:39 [facility] [place] TYPE: Emergency COMPLAINT: - TOE PAIN DIAGNOSES: - Latex allergy status - Hypertensive heart disease with heart failure - Other half-way (current) drug therapy - Pain in right toe(s) - superintendent terminal (current) use of anticoagulants - Heart failure, unspecified - Laceration without foreign body of right lesser toe(s) without damage to nail, initial encounter - Hyperlipidemia, unspecified - Contact with other nonpowered hand tool, initial encounter 04/09/2020 09:29 [facility] [place] TYPE: Emergency COMPLAINT: - WEAKNESS, SOB INPATIENT VISIT TRACKING (12 MO.) 08/31/2020 18:34 [facility] TYPE: Internal Medicine DIAGNOSES: - Sick sinus [...] Ventricular tachycardia - Atherosclerotic heart disease of [place] coronary artery without angina pectoris - Chronic [...] Hypothyroidism, unspecified - Atherosclerotic heart disease of [place] coronary artery without angina pectoris - Alzheimer's disease, unspecified - Chronic diastolic (congestive) heart failure - Chronic obstructive pulmonary disease, unspecified - Atherosclerotic heart disease of [place] coronary artery without angina pectoris - longterm (current) use of anticoagulants - superintendent terminal (current) use of anticoagulants - Dementia in other diseases classified elsewhere without behavioral disturbance - Chronic diastolic (congestive) heart failure - Hypothyroidism, unspecified 04/09/2020 12:28 [facility] [place] TYPE: Medical Surgical COMPLAINT: - COPD EXACERBATION / RULE OUT COVID DIAGNOSES: - superintendent terminal (current) use of inhaled steroids - superintendent terminal (current) use of inhaled steroids - Other specified disorders of veins - Presence of prosthetic heart valve - Presence of cardiac pacemaker - Hypoxemia - Disorientation, unspecified - Other longwall machine operator helper (current) drug therapy - Unspecified hearing loss, unspecified ear - longterm (current) use of anticoagulants - Abnormal coagulation profile - Other longwall machine operator helper (current) drug therapy - Latex allergy status [...] Other specified disorders of veins - superintendent terminal (current) use of anticoagulants - Gout, unspecified - Hypothyroidism, unspecified - Latex allergy status - Hypothyroidism, unspecified - Presence of prosthetic heart valve - Presence of aortocoronary bypass graft - Unspecified dementia without behavioral disturbance - Acute on chronic diastolic (congestive) heart failure - Chronic obstructive pulmonary disease with (acute) exacerbation - Gout, unspecified - Hypoxemia [email or web address]
--- NOTE | 2021-01-20 12:50 | EKG ---
[facility] [address] [facility] [place] [address] Signed Atrial-paced rhythm with prolonged AV conduction with occasional premature ventricular complexes Left bundle branch block Abnormal ECG When compared with ECG of 18-JAN-2021 10:56, premature ventricular complexes are now present Confirmed by DORA ALEXANDRE DO ([id number]) on 01/20/2021 12:50:26 PM Electronically Signed By: DORA ALEXANDRE DO 01/20/21 1250 PATIENT NAME: JACKLYN PATEL Electrocardiogram DATE OF : 31 PHYSICIAN: DORA ALEXANDRE DO REPORT #: [id number] REPORT IS CONFIDENTIAL AND NOT TO BE RELEASED WITHOUT AUTHORIZATION
--- NOTE | 2021-01-20 17:00 | NUR ---
PT IS ONLY ORIENTED TO FIRST NAME. PT OVERALL IS VERY PAINFUL, PRN TYLENOL WAS GIVEN. LOBES ARE CLEAR AND DIMINISHED, PT HOWEVER DOES NOT FOLLOW COMMANDS FOR DEEP BREATHS VERY GOOD. PT HAS EXTENSIVE BRUISING ON BOTH ARMS AND ON HIS CHEST. BILATERAL LOWER LEG REDNESS AND EDEMA IS PRESENT. PEDIS PULSES NEED DOPPLER. FEET ARE WARM TO TOUCH HOWEVER. ABD SOUNDS ARE PRESENT.
--- NOTE | 2021-01-20 18:18 | NUR ---
HIP WERE FLOATED AT 1800. PT IS RESTING WITH EYES CLOSED. PT IS STILL VERY PAINFUL WHEN TOUCHED IN ANY WAY.
--- NOTE | 2021-01-20 19:20 | NUR ---
SHIFT REPORT RECEIVED FROM MAREK ESTRELLA. PT RESTING IN BED, EYES CLOSED. RR EVEN, UNLABORED. CALL LIGHT IN REACH, RAILS UP, DOOR OPEN.
--- NOTE | 2021-01-20 21:00 | NUR ---
ASSESSMENT, VS AND I&O COMPLETED. GCS 14, A&O TO PERSON AND PLACE. LUNGS CLEAR IN UPPER LOBES, DIMINISHED IN LOWER LOBES. HEART TONES REGULAR. ABD SOFT, TENDER, MILDLY DISTENDED, BOWEL TONES ACTIVE. 1+BLE EDEMA WIHT REDNESS. CMS INTACT, PT PAINFUL TO TOUCH ALL OVER. PT REPOSITIONED. IVs WNL, CDI, FLUSHED WELL. IV FLUIDS INFUSING PER ORDER. SCHEDULED MED PROVIDED. NO OTHER NEEDS AT THIS TIME. CALL LIGHT IN REACH.
--- NOTE | 2021-01-20 23:37 | NUR ---
PT REPOSITIONED. IV FLUIDS INFUSING PER ORDER. NO NEEDS AT THIS TIME. CALL LIGHT IN REACH.
--- NOTE | 2021-01-21 00:48 | NUR ---
PT AWAKE IN ROOM. PT USED URINAL. REPOSITIONED. NO OTHER NEEDS. CALL LIGHT IN REACH.
--- NOTE | 2021-01-21 01:10 | NUR ---
PT WAKES SOB. PT REPOSITIONED, HOB ELEVATED. SPO2 85%, PT PLACED ON 3L OXYMASK. VS COMPLETED. MD CALLED ON PHONE. VERBAL ORDER GIVEN TO DC FLUIDS, SINGLE VIEW CHEST XRAY AND DUONEB EVERY 4 HOURS. ORDERS REPEATED BACK. RT AND XRAY NOTIFIED. RT IN ROOM AT THIS TIME.
--- NOTE | 2021-01-21 01:47 | NUR ---
DUONEB AND CHEST XRAY COMPLETED. PT IS NO LONGER HAVING EXPIRATORY WHEEZING OR SOB. PT RESTING WITH EYES CLOSED IN BED. SPO2 93% ON ROOM AIR. VS COMPLETED. I&O COMPLETED. NO OTHER NEEDS AT THIS TIME. CALL LIGHT IN REACH, RAILS UP, DOOR OPEN.
--- NOTE | 2021-01-21 03:30 | NUR ---
PT WAS HEARD MOANING; THIS NURSE ENTERS ROOM AND SPO2 READS 98-100%. PT REPORTS NEEDING TO VOID; 150ML CONCENTRATED URINE INTO URINAL. PT COUGHED AND HAD SOME THICK MUCUS SPUTUM. WARM BLANKET PROVIDED FOR PT; PT WITHIN VIEW OF NURSES STATION FOR SAFETY.
--- NOTE | 2021-01-21 03:54 | NUR ---
PT REPOSITIONED. PT STATES HE HAS PAIN BUT CAN'T GIVE A PAIN NUMBER. PRN PAIN MED PROVIDED. SPO2 96% ON 2L OXYMASK. ASSESSMENT COMPLETED. FINE CRACKLES IN UPPER LOBES, DIMINISHED LOWER LOBES. HEART TONES LOUD, REGULAR. BLE EDEMA 1+. IV WNL. NO OTHER NEEDS AT THIS TIME. CALL LIGHT IN REACH.
--- NOTE | 2021-01-21 06:29 | NUR ---
VS AND I&O COMPLETED. PT REPOSITIONED. URINAL USED. NC @ 2L. SCHEDULED MED PROVIDED. NO OTHER NEEDS AT THIS TIME. DOOR OPEN, RAILS UP.
--- NOTE | 2021-01-21 08:00 | NUR ---
RECEIVED REPORT AT 0700,PT WAS SLEEPING. UPPER LOBES ARE CLEAR, ALL OTHER LOBES HAVE FINE CRACKLES PRESENT, PT OVERALL IS MORE ALERT THAN YESTERDAY. BILAT. LOWER LEG EDEMA +1, SOME PARTS OF THE SKIN LOOKS WORSE TO ME TODAY. BILAT. HAND AND ARM EDEMA HAS INCREASED SINC YESTERDAY. PT OVERALL STILL VERY WEAK. PT HAD GOOD APPITITE HOWEVER. PO INTAKE IS GOOD IF OFFERED. ABD SOUNDS PRESENT, ABD SOFT TO TOUCH BUT TENDER. PT STILL PAINFULL ALL OVER.
--- NOTE | 2021-01-21 09:00 | NUR ---
LOW MANNUAL BP. MD PEREYRA AWARE.
--- NOTE | 2021-01-21 11:00 | NUR ---
WORKED WITH PHYS. THERAPY. PT IS 2 PERSON ASSIST W/WALKER PIVOT TO BEDSIDE COMMODE. URINE OUTPUT IS MARGINAL. URINE IS DARK IN COLOR. PT HAD A SMALL BM. PT ALSO SEEMS TO PANIC WHEN ASKED TO GET UP. V/S WERE STABLE WHILE GETTING PT UP. PT HAD A BED BATH, GOWN AND BED LINNEN WERE CHANGED ALSO.
--- NOTE | 2021-01-21 11:49 | NUR ---
SO FAR PT HAS BEEN TURNED Q2 HRS.
--- NOTE | 2021-01-21 12:30 | NUR ---
SINCE LASIX WAS GIVEN, PT HAS ONLY HAD 150MLS OUT. POST VOID BLADDER SCAN WAS DONE AND PT HAD 82MLS PRESENT.
--- NOTE | 2021-01-21 15:05 | NUR ---
MD ALEXANDRE WAS CALLED ABOUT LOW URINE OUTPUT IN THE CONTEXT OF LASIX ADMIN. NO NEW ORDERS WERE RECEIVED.
--- NOTE | 2021-01-21 18:00 | NUR ---
PT AWAKE IN ROOM. PT STATED THAT HE HAS MUCH BILATERAL LOWER LEG PAIN AND CANNOT STAND IT ANYLONGER. MD TO BE CALLED.
--- NOTE | 2021-01-21 19:42 | NUR ---
PATIENT JUST TURNED AT 1900 BY SAMEER JARA. PATIENT RSTING IN BED AND SHIFT REPORT RECEIEVED. PATIENT HAS NO OTHER CURRENT CARE NEEDS. CALL LIGHT IN REACH AND PATIENT CAN BE SEEN FROM THE NURSES STATION.
--- NOTE | 2021-01-21 21:30 | NUR ---
PATIENT TURNED TO HIS LEFT SIDE AFTER CLEANING UP SOME SOFT STOOL. ATTENDS CHANGED AND CHUX CHANGED. PATIENT READY FOR SLEEP AND DID NOT WANT ANY FOOD AT THIS TIME. CALL LIGHT IS IN REACH AND PATIENT CAN BE SEEN FROM THE NURSES STATION.
--- NOTE | 2021-01-21 23:05 | NUR ---
HEARD NOSES FROM GUS'S ROOM AND PATIENT LOOKED LIKE HE WAS REACHING FOR SOMETHING. PATIENT WANTED HIS DENTURES TO PUT IN WHICH WERE SOAKING. PATIENT PUT IN HIS DENTURES AND THEN WANTED TO EAT. PATIENT ATE 95% OF HIS PASTA AND VEGGIE DINNER WITH THIS NURSE ASSISTING PATIENT SHAKES TO MUCH TO FED HIMSELF. ICE WATER REFILLED. CALL LIGHT IN REACH.
--- NOTE | 2021-01-22 00:14 | NUR ---
PATIENT RESTING QUIETLY SUPINE AT THIS TIME. PATIENT CAN MOVE HIS HIPS AND BUTTOCKS AROUND IN THE BED IF INSTRUCTED TO. PATIENT HAS NO CURRENT CARE NEEDS, CALL LIGHT IN REACH.
--- NOTE | 2021-01-22 01:37 | NUR ---
PATIENT FLOATED UP OFF HIS BUTTOCKS WITH PILLOWS AND PATIENT VOIDED IN THE URINAL WITH HELP FROM THIS RN. JOHN EXECUTIVE VICE PRESIDENT AND CHIEF OPERATING OFFICER IN THE ROOM TO HELP WITH REPOSITIONING. PATIENT HAS NO OTHER NEEDS AT THIS TIME. CALL LIGHT IN REACH AND PATIENT CAN BE SEEN FROM THE NURSES STATION.
--- NOTE | 2021-01-22 03:35 | NUR ---
PATIENT TURNED TO HIS RIGHT SIDE AND HAD NO OTHER CARE NEEDS AT THIS TIME. CALL LIGHT IS IN REACH AND PATIENT CAN BE SEEN FROM THE NURSES STATION DESK.
--- NOTE | 2021-01-22 06:00 | NUR ---
PATIENT HAS RESTED FAIRLY WELL IN BETWEEN TURNS AND BATHROOM CHECKS. PATIENT'S IS FAIRLY COMFORTABLE WHEN HE IS NOT BEING MOVED, BUT HURTS A GREAT DEAL WHEN MOVED. HEEL PROTECTORS REMAIN ON. PATIENT HAS VOIDED PER URINAL MULTIPLE TIMES TONIGHT AND HAD 1 LARGE INCONTINENCE OF URINE AND ONE OF LARGE PASTY SEMI-LIQUID STOOL. PATIENT'S VS HAVE BEEN STABLE. PATIENT'S CALL LIGHT IS IN REACH.
--- NOTE | 2021-01-22 07:45 | NUR ---
PT RESTING IN BED QUIET ALERT AT TIME OF REPORT. AGREES HE IS COMFORTABLE DENIES NEEDS OF
--- NOTE | 2021-01-22 09:25 | NUR ---
PT EATS BREAKFAST WHILE RESTING IN BED DOES WELL AT 75%. SON IN TO VISIT. P/T PRESENT ASSISTS TO GET PT UP TO BSC. PT COOPERATIVE AND BARES OWN WT BUT A VERY SLOW PROCESS. PT C/O BEING DIZZY. FRESH UNDERGARMENT PROVIDED.
--- NOTE | 2021-01-22 11:57 | NUR ---
FAMILY MEMBER ADIEL CALLED FOR UPDATE ON PT. WAS TOLD BY PATIENTS SON (POA) NOT TO GIVE OUT ANY INFORMATION. ADIEL WAS TOLD TO CALL POA FOR UPDATES ON PATIENT.
--- NOTE | 2021-01-22 12:15 | NUR ---
BOTH DEYSI ALEXANDRE AND DANK IN TO ASSESS LEGS, SON CONTINUES IN THE ROOM. PT LE ARE VERY PAINFUL, TENDER, AND DISCOLORED. ELEVATED PER MD INSTRUCTION. PT REMAINS AWAKE AND COOPERATIVE THIS SHIFT CONTINUES TO C/O OF LEG DISCOMFORT MEDICATED WITH OXY AGAIN WILL CONTINUE TYLENOL AT REGULAR INTERVALS. PT REPOSITIONED SITTING UP FOR NOON MEAL.
--- NOTE | 2021-01-22 13:45 | NUR ---
JACKLYN VILLARREAL, IS REQUESTING THAT BROTHER DELMI AMANDA EVERETT OR ADIEL PATEL TO NOT HAVE CONTACT WITH PATIENT. REQUESTING NO PHONE CALLS BE ROUTED TO PT ROOM.
--- NOTE | 2021-01-22 16:24 | NUR ---
PT RESTING IN BED SLEEPING SOUNDLY
--- NOTE | 2021-01-22 19:34 | NUR ---
Report received from Dolly ESTRELLA. Pt resting in bed with eyes closed, awakens to voice. States no needs at this time, call light in reach and in view of nurses station. Will continue plan of care.
--- NOTE | 2021-01-22 21:38 | NUR ---
Assessment complete. Plan of care discussed, pt agreeable although LAC DU FLAMBEAU. 2 PA to BSC with 4WW, pt had void and small BM. Back to bed with legs elevated w bed and on pillows. Water refreshed. Pt reports no needs at this time, call light in reach, will cont to monitor
--- NOTE | 2021-01-23 00:04 | NUR ---
Pt resting in bed with eyes closed, even and unlabored respirations, no apparent needs. Will cont to monitor
--- NOTE | 2021-01-23 00:21 | NUR ---
Pt called for warm blankets, then states needing to have BM. 2 PA to BSC with 4WW, unsteady gait and coordination, requires frequent cueing. Able to void and have BM. Back to bed with legs elevated. RT in room for bk batista.
--- NOTE | 2021-01-23 03:40 | NUR ---
Pt resting in bed, eyes closed and even respirations. Call light in reach
--- NOTE | 2021-01-23 06:00 | NUR ---
PT CALLING "HEY THERE". THIS NURSE IN ROOM. PT REPORTS NEED TO URINATE. 150ML DARK YELLOW URINE NOTED. PT DENIES FURTHER NEEDS AT THIS TIME.
--- NOTE | 2021-01-23 06:42 | NUR ---
Scheduled meds administered, vitals and I/O's complete. Pt resting in bed, call light in reach.
--- NOTE | 2021-01-23 08:00 | NUR ---
REPORT RECEIVED. PT IN BED WITH EYES CLOSED, RR EQUAL AND NON LABORED. VISIBLE FROM NURSING STATION. CALL LIGHT IN REACH.
--- NOTE | 2021-01-23 09:34 | NUR ---
PHYSICAL THERAPY IN WORKING WITH PT. DANA IN TO HAWK.
--- NOTE | 2021-01-23 09:47 | NUR ---
PT UP OUT OF BED 2 PERSON ASSIST, GATE BELT WITH PHYSICAL THERAPY AND MANAGER OF IT. PT WHEEZING AFTER IN CHAIR.
--- NOTE | 2021-01-23 10:08 | NUR ---
STOPPED TO SEE PATIENT, HE WAS WORKING WITH PT STAFF.
--- NOTE | 2021-01-23 11:15 | NUR ---
SPOKE WITH PATIENT IN ROOM. PATIENT WAS UP IN CHAIR. PATIENT IS ORIENTED TO SELF AND [facility]. UNABLE TO TELL ME MONTH OR YEAR. PATIENT IS [place] AL[place]OUGH HAS HEARING AIDS IN. DISCUSSED WITH PATIENT HIS RECENT FALLS AND VISITS TO ED. DISCUSSED HIS WEAKNESS AND WORSENING OF SUCH. ASKED IF HE WOULD CONSIDER GOING TO [facility] A [facility] BEFORE GOING HOME AGAIN TO GAIN STRENGTH. DISCUSSED CONCERN FOR HIS SAFETY. ASKED IF HE HAS A CAREGIVER. HE STATES "I THINK I DO, I CAN'T REMEMBER". ASKED IF HE REMEMBERS WHAT WE JUST TALKED ABOUT, STATES "I AM GOING HOME?" ASKED IF HE WILL GO STAY AT THE [facility] AGAIN, HE STATES "I GUESS YOU BETTER ASK MY PYTHON DEVELOPER". WHEN PRESSED ON THIS HE MEANT HIS SON WHO IS POWER OF PYTHON DEVELOPER. AGREED I WILL CALL HIS SON .
--- NOTE | 2021-01-23 13:00 | NUR ---
SPOKE WITH SON BY PHONE. DISCUSSED PATIENTS NEEDING 2 PERSON ASSIST AND THERAPY FOR SAFETY BEFORE GOING HOME WITH CAREGIVERS. HE STATES "OH I KNOW, I TELL HIM ALL THE TIME HE NEEDS A LONGTERM" STATES "I CAN'T BE THERE ALL THE TIME". HE STATES HE HAS A CAREGIVER MON-FRI 9-3 AND SAT 9-NOON. BUT IS ALONE OTHERWISE. HE STATES HE CHECKS ON HIM BUT CALLS HIM MOSTLY. DISCUSSED THE OPTION OF SNF AND MEDICARE COVERAGE. DISCUSSED I WILL LEAVE A SHEET IN THE ROOM WITH NURSING HOMES WITHIN 50 MILES AND IT HAS A WEBSITE LISTED THAT HE CAN LOOK UP SCORING FROM [facility]. HE STATES "I DON'T WANT HIM GOING OUT OF TOWN" I REMINDED HIM NO MATTER WHERE HE GOES THERE ARE VISITORS RESTRICTIONS AT NURSING HOMES. HE STILL DOESN'T WANT HIM LEAVING TOWN. HE STATES TO TRY [place]. ASKED IF HE HAD A SECOND CHOICE AND HE STATES "NOPE". HE TOLD ME HE WASN'T COMING UP BECAUSE HIS BROTHER WAS COMING UP AND WE HAVE A ONE PERSON A DAY VISITOR RULE. HE WENT ON TO COMPLAIN ABOUT THESE RULES. DISCUSSED I DO NOT HAVE ANY SAY ON THAT, HE CAN CALL ADMINISTRATION IF HE WOULD LIKE.
--- NOTE | 2021-01-23 13:30 | NUR ---
SPOKE WITH PATIENT IN ROOM. SON PATRICK IS PRESENT. ASKED IF I CAN TALK WITH HIM WITH HIS VISITOR HERE, HE STATES "YES". DICUSSED WHAT JR SAID AND THAT I CAN SEND A REFERRAL TO [place] IF HE IS AGREEABLE. HE STATES "ANYTHING TO GET OUT OF HERE". ASKED IF HE UNDERSTOOD THAT HE WOULD BE GOING TO THE [facility] FOR CARE UNTIL HE WAS STRONGER, HE AGAIN SAID YES. HIS SON ASKED IF HE AND SISTER WHO IS A NURSE CAN CALL AND GET UPDATES, I TOLD HIM IF HIS DAD SAYS YES. PATIENT THEN SAID TO SON, "OF COURSE YOU CAN". SON DISCUSSED THAT PATIENT LIVED WITH HIM FOR 15 YEARS PRIOR TO LIVING AT [facility]. I ASKED HIM OUTRIGHT IF LEV AND HIS DAUGHTER CAN CALL AND CHECK ON HOW HE IS DOING AND AGAIN HE STATES "YES THEY CAN".
--- NOTE | 2021-01-23 15:14 | NUR ---
PATIENT TO BSC THEN TO BED, 2PA FWW GAITBELT. KARUNA CARE DONE. NEW ATTENDS IN PLACE. VITALS AND I&O'S CHARTED. CALL LIGHT IN REACH. NO FURTHER NEEDS AT THIS TIME. BED ALARM ON.
--- NOTE | 2021-01-23 15:40 | NUR ---
IN TO ADMINISTER ANTIBIOTIC. PT LYING IN BED WITH EYES CLOSED. AWAKES TO GENTLE SHAKE. PT PLESENT. COUMADIN ASLO GIVEN. PT SEALLOWS PILLS WELL WITH WATER. CALL LIGHT IN REACH.
--- NOTE | 2021-01-23 15:59 | NUR ---
SPOKE WITH PT'S NURSE, BASED ON THE DESCRIPTION OF THE WOUNDS AT THIS TIME THERE ISN'T ANYTHING TO BE DONE WITH THEM. THERE ARE NO OPEN WOUNDS AND NO WEEPING FROM THE WOUNDS. THE NURSE IS EDUCATED TO LET WOUND CARE KNOW WHEN THAT CHANGES.
--- NOTE | 2021-01-23 16:56 | NUR ---
FAXED CHART NOTES TO [facility]. FAX CONFIRMATION RECEIVED AT 449PM.
--- NOTE | 2021-01-23 17:00 | NUR ---
PT SAT UP IN BED FOR DINNER. PT DOING WELL FEEDING SELF WITH DENTURES IN. DENIES PAIN OR NEEDS AT THIS TIME. CALL LIGHT IN REACH. /
--- NOTE | 2021-01-23 18:13 | NUR ---
PATIENT IN BED RESTING, REPOSITIONED ONTO RIGHT SIDE. VITALS AND I&O'S CHARTED. ORAL CARE DONE. FACE WASHED. CALL LIGHT IN REACH. NO FURTHER NEEDS AT THIS TIME.
[2021-01-23] MEDS ORDERED: VITAMIN A & D113 G1 TOP (18:20)
[2021-01-23] MEDS ORDERED: TYLENOL EXTRA500 MG PO (18:21)
[2021-01-23] MEDS ORDERED: ALOE VESTA CLE118 ML TOP (18:22)
[2021-01-23] MEDS ORDERED: SYMBICORT 80-10.2 GM INH (18:25)
--- NOTE | 2021-01-23 18:34 | NUR ---
MED REC COMPLETE
--- NOTE | 2021-01-23 18:34 | NUR ---
MED REC COMPLETE
--- NOTE | 2021-01-23 19:20 | NUR ---
REPORT RECEIVED FROM DAY SHIFT RN. PT LYING IN BED RESTING WITH EYES CLOSED. AWAKENS EASILY WHEN SPOKEN TO. BLE ELEVATED ON PILLOWS. CRADLE ON FOOT OF BED IN PLACE. PT DENIES NEEDS AT THIS TIME. WHITE BOARD UPDATED. CALL LIGHT IN REACH.
--- NOTE | 2021-01-23 22:45 | NUR ---
EVENING ASSESSMENT COMPLETE. PT ORIENTED TO SELF AND PLACE. ASSISTED PT TO USE URINAL, VOID 150 ML DARK YELLOW URINE. PT REPORTS NEEDING TO HAVE BM. UP TO BSC WITH 2PA AND FWW. GAIT WEAK. NO BM. BACK TO BED. INCREASED RR NOTED WITH ACTIVITY. BLE EDEMA AND COLOR NOTED. ELEVATED ON PILLOWS. LUE EDEMA, COLOR, AND WARMTH NOTED. ELEVATED ON PILLOW. PRN ADMINISTERED FOR 7/10 BLE PAIN. HOB ELEVATED. PT DENIES FURTHER NEEDS. CALL LIGHT IN REACH. BED ALARM FOR SAFETY. PT IN VIEW OF NURSES STATION.
--- NOTE | 2021-01-24 01:14 | NUR ---
PT CALLING OUT "HELP". THIS RN IN TO ASSIST PT TO USE URINAL. PT VOID 200 ML YELLOW URINE. BLE ELEVATED ON PILLOWS. NO FURTHER NEEDS. CALL LIGHT IN REACH. BED ALARM FOR SAFETY.
--- NOTE | 2021-01-24 02:42 | NUR ---
PT RESTING IN BED WITH EYES CLOSED, NAD.
--- NOTE | 2021-01-24 03:00 | NUR ---
ASSISTED PATIENT USED THE URINAL.
--- NOTE | 2021-01-24 05:02 | NUR ---
ASSISTED PT TO REPOSITION IN BED. PRN ADMINISTERED FOR 7/10 PAIN ON THE FACES SCALE. LEFT ARM NOTED TO BE WEEPING SEROUS FLUID. ALL EXTREMITIES ELEVATED ON PILLOWS AT THIS TIME. INCREASE IN RIGHT HAND EDEMA NOTED THIS AM. VS AND I&O COMPLETE. WARM BLANKETS PROVIDED. CALL LIGHT IN REACH.
--- NOTE | 2021-01-24 07:36 | NUR ---
REPORT RECIEVED. PT IN BED, AWAKENS EASILY. LEGS AND ARMS ELEVATED ON PILLOWS. CALL LIGHT IN REACH. VISIBLE FROM NURSING STATION.
--- NOTE | 2021-01-24 08:00 | NUR ---
PT ASSISTED TWO PERSON TO CHAIR FOR BREAKFAST. PT SEEMS FEARFUL OF FALLING. LOTS OF REASSURANCE PROVIDED. FWW USED. CALL LIGHT AND PERSONAL ITEMS WITHIN REACH.
[2021-01-24] MEDS ORDERED: HYDROCODON-ACE1 EA10 PO ×2 (08:28→12:07)
--- NOTE | 2021-01-24 08:41 | NUR ---
CAD TECHNICIAN ALERTED NURSE TO PT COUGHING AFTER ASPIRATING SOME EGGS WITH BREAKFAST PT COUGHING WITH NOT MANY BREAKS BETWEEN EPISODES. SATURATIONS DOWN TO 87-88%. 2L NC PLACED. SPO2 UP TO 95% SUCTION PROVIDED. PT COULD NOT STOP COUGHING SO RT AND DR ALEXANDRE WERE NOTIFIED. RT WITH NO INTERVENTION RECOMMENDATIONS DIFFERENT THEN ONES ALREADY PROVIDED. PT ASSISTED TO TRIPODING POSITION. WAS ABLE TO CLEAR THROAT ATFER 15 MINUTES. DID COME TO BEDSIDE TO ASSESS PT. NO NEW ORDERS. PT TITRATED TO ROOM AIR ONCE RECOVERED.
--- NOTE | 2021-01-24 09:55 | NUR ---
PATIENT IS SITTING UP IN HIS CHAIR. VITALS AND I&OS ARE DONE AND DOCUMENTED. FRESH ICE WATER GIVEN. CALL LIGHT IS IN REACH. NO FURTHER NEEDS AT THIS TIME.
--- NOTE | 2021-01-24 10:00 | NUR ---
PT UP IN CHAIR. REPORTS 8/10 PAIN IN LE. OXYCODONE ADMINSTERED.
--- NOTE | 2021-01-24 12:00 | NUR ---
PT UP IN CHAIR FOR LUNCH. LEGS ELEVATED. DAUGHTER IN TO VISIT.
--- NOTE | 2021-01-24 12:17 | NUR ---
PT SITTING IN CHAIR, VERY [place]. MANAGED TO HAVE A CONVERSATION WITH PT,HE REQUESTED PRAYER. NOTICED HIS R.HAND WAS VERY SWOLLEN. PT RUBED IT OFTEN WORKED TO MAKE A FIST WITH IT. INFORMED RESET MERCHANDISERKENDRA SAMUEL.
--- NOTE | 2021-01-24 14:20 | NUR ---
report given to kenan wakefield at [place].
== END 2021-01-24 14:18 | DRG 602 ==
LOC: ED 10:53 → MS 15:03
PROVIDERS: ADMIT Student in an Organized Health Care Education/Training Program; ATTEND Student in an Organized Health Care Education/Training Program
DX: L03.116 Cellulitis of left lower limb (principal); G93.41 Metabolic encephalopathy; J96.01 Acute respiratory failure with hypoxia; N17.9 Acute kidney failure, unspecified; I50.32 Chronic diastolic (congestive) heart failure; Z20.822 Contact with and (suspected) exposure to COVID-19; L03.115 Cellulitis of right lower limb; E86.0 Dehydration; I48.0 Paroxysmal atrial fibrillation; I25.10 Atherosclerotic heart disease of native coronary artery without angina pectoris; G47.33 Obstructive sleep apnea (adult) (pediatric); R29.6 Repeated falls; R00.1 Bradycardia, unspecified; E78.5 Hyperlipidemia, unspecified; E03.9 Hypothyroidism, unspecified; G30.9 Alzheimer's disease, unspecified; F02.80 Dementia in other diseases classified elsewhere, unspecified severity, without behavioral disturbance, psychotic disturbance, mood disturbance, and anxiety; J44.9 Chronic obstructive pulmonary disease, unspecified; E80.6 Other disorders of bilirubin metabolism; R74.8 Abnormal levels of other serum enzymes; E66.9 Obesity, unspecified; Z95.1 Presence of aortocoronary bypass graft; Z79.899 Other long term (current) drug therapy; Z95.2 Presence of prosthetic heart valve; Z79.01 Long term (current) use of anticoagulants; Z91.040 Latex allergy status; Z68.30 Body mass index [BMI] 30.0-30.9, adult
CPT/HCPCS: 36415; 70450; 71045; 80048; 80053; 81001; 82140; 82550; 82803; 83605; 83735; 83880; 84100; 84439; 84443; 84484; 85025; 85610; 85651; 86140; 93005; 93010; 94640; 94760; 97110; 97116; 97163; 97166; 97530; 99285-25; C9803; J0696; J1940; J7030; J7121; U0003

== ENCOUNTER 2021-03-16 14:25 | Emergency (ER) | payer MEDICARE, OTHER ==
[~2021-03-16] VITALS: Ht 167.6 cm; Wt 86.2 kg
[~2021-03-16 14:25] MED LIST changes: +ALOE VESTA CLE118 ML TOP; +TYLENOL EXTRA500 MG PO; +VITAMIN A & D113 G1 TOP
--- OUTSIDE RECORDS SUMMARY | 2021-03-16 14:28 | XMS ---
PreManage Notification: JACKLYN PATEL Security Acute Dialysis Registered Nurse Events No recent Security Events currently on file CRITERIA MET - Group Notification - 6 ED Visits in 6 Months - PDMP CARE PROVIDERS YEN PATEL Floral Design Teacher Meseret GARDUNO F PHONE: [phone] [facility] [employer] \[facility] PHONE: [phone] ALETHA ALFONSO Internal Medicine Current PHONE: [phone] MEAGAN ALEXIS Nurse Practitioner Current PHONE: [phone] IKER Coats Coil Inspector: Clinical 11/07/2020-Current [facility] \Jose PA [facility] PHONE: [phone] CJ BLUNT Nurse Practitioner: Family Current PHONE: Unknown Lalo Nicholson DO Family Medicine Current PHONE: [phone] Nurse Monica SHEEHAN PHONE: [phone] Leonila Cohen Globe Changer/Drill Press Operator Numerical Control 01/19/2021-Current PHONE: [phone] [facility] Current PHONE: Unknown SAIMA ANDERSON 07/10/2018-Current PHONE: Unknown Rikki has no Care Guidelines for this patient. 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 - PATIENT PCP IS DR SAIMA ANDERSON AT THE [place]. 02/12/2018 [facility] Care Recommendation: This patient has had 5 or more Emergency Department visits in the last 12 months. Patient requires education on the scope and purpose of the ED as an acute care provider not a Primary Care Provider and should not be utilized for chronic conditions. If patient returns to ED please contact Community Health WorkerAnamaria at [phone]. These are guidelines and the provider should exercise clinical judgment when providing care. E.D. VISIT COUNT (12 MO.) 13 KEZIA Burt TOTAL 13 NOTE: Visits indicate total known visits. ED/UCC VISIT TRACKING (12 MO.) 03/16/2021 14:26 [facility] TYPE: Emergency COMPLAINT: - DIFFICULTY BREATHING 01/20/2021 10:53 [facility] TYPE: Emergency COMPLAINT: - POSSIBLE UTI 01/18/2021 09:37 [facility] TYPE: Emergency COMPLAINT: - FALL DIAGNOSES: - Dehydration - Gout, unspecified - Contusion of unspecified front wall of thorax, initial encounter - Contusion of unspecified part of head, initial encounter - Other intermediate project manager (current) drug therapy - FDC (current) use of anticoagulants - Unspecified fall, initial encounter - Latex allergy status - Obesity, unspecified - Contusion of left lower leg, initial encounter - Contusion of right upper arm, initial encounter - Laceration without foreign body of left upper arm, initial encounter - Contusion of right lower leg, initial encounter - Contusion of left upper arm, initial encounter - Hypertensive heart disease with heart failure - Heart failure, unspecified - Hyperlipidemia, unspecified 12/28/2020 21:00 [facility] TYPE: Emergency COMPLAINT: - FALL DIAGNOSES: - Obesity, unspecified - Hyperlipidemia, unspecified - Other intermediate project manager (current) drug therapy - Striking against or struck by other objects, initial encounter - Hypertensive heart disease with heart failure - Latex allergy status - exterminator termite (current) use of anticoagulants - Laceration without foreign body of left forearm, initial encounter - Heart failure, unspecified 11/04/2020 12:36 [facility] TYPE: Emergency COMPLAINT: - RASH ON L FOREARM DIAGNOSES: - Heart failure, unspecified - Hypertensive heart disease with heart failure - Obesity, unspecified - FDC (current) use of anticoagulants - FDC (current) use of opiate analgesic - Pain in left arm - Hyperlipidemia, unspecified - Lymphangitis - Other intermediate project manager (current) drug therapy - Latex allergy status 09/29/2020 09:47 [facility] TYPE: Emergency COMPLAINT: - FALL, BACK PAIN DIAGNOSES: - Heart failure, unspecified - Hyperlipidemia, unspecified - Latex allergy status - Other intermediate project manager (current) drug therapy - Obesity, unspecified - Weakness - Anemia, unspecified - exterminator termite (current) use of anticoagulants 09/17/2020 11:14 [facility] TYPE: Emergency COMPLAINT: - LEG PAIN, AND BLEEDING DIAGNOSES: - Hyperlipidemia, unspecified - Other intermediate project manager (current) drug therapy - Hypertensive heart disease with heart failure - Obesity, unspecified - Localized edema - exterminator termite (current) use of anticoagulants - Heart failure, unspecified - Latex allergy status 09/09/2020 09:35 [facility] TYPE: Emergency COMPLAINT: - FALL DIAGNOSES: - Fall from or off toilet without subsequent striking against object, initial encounter - FDC (current) use of opiate analgesic - Hypertensive heart disease with heart failure - Unspecified fracture of fourth lumbar vertebra, initial encounter for closed fracture - Latex allergy status - Hyperlipidemia, unspecified - Heart failure, unspecified - Obesity, unspecified - Weakness - FDC (current) use of anticoagulants - Other skilled nursing (current) drug therapy 08/31/2020 09:53 [facility] TYPE: Emergency COMPLAINT: - CHEST PAIN DIAGNOSES: - Hypertensive heart disease with heart failure - Ventricular tachycardia - Disorientation, unspecified - Hyperlipidemia, unspecified - FDC (current) use of opiate analgesic - Other skilled nursing (current) drug therapy - Latex allergy status - Disorientation, unspecified - Chest pain, unspecified - Weakness - Obesity, unspecified - Heart failure, unspecified - exterminator termite (current) use of anticoagulants 06/28/2020 13:24 [facility] TYPE: Emergency COMPLAINT: - CHEST PAIN DIAGNOSES: - Heart failure, unspecified - Other chest pain - Chest pain, unspecified - Latex allergy status - Unspecified abdominal pain - Other skilled nursing (current) drug therapy - Hyperlipidemia, unspecified - FDC (current) use of anticoagulants - Obesity, unspecified - exterminator termite (current) use of opiate analgesic - Constipation, unspecified - Hypertensive heart disease with heart failure 05/18/2020 09:35 [facility] TYPE: Emergency COMPLAINT: - SWOLLEN LEGS 04/29/2020 18:39 [facility] TYPE: Emergency COMPLAINT: - TOE PAIN DIAGNOSES: - Latex allergy status - Hypertensive heart disease with heart failure - Other skilled nursing (current) drug therapy - Pain in right toe(s) - FDC (current) use of anticoagulants - Heart failure, unspecified - Laceration without foreign body of right lesser toe(s) without damage to nail, initial encounter - Hyperlipidemia, unspecified - Contact with other nonpowered hand tool, initial encounter 04/09/2020 09:29 [facility] TYPE: Emergency COMPLAINT: - WEAKNESS, SOB INPATIENT VISIT TRACKING (12 MO.) 01/20/2021 15:03 [facility] TYPE: Medical Surgical COMPLAINT: - ALTERED MENTAL STATUS DIAGNOSES: - Obstructive sleep apnea (adult) (pediatric) - Body mass index [BMI]30.0-30.9, adult - Cellulitis of right lower limb - Dementia in other diseases classified elsewhere without behavioral disturbance - Obstructive sleep apnea (adult) (pediatric) - Presence of aortocoronary bypass graft - Acute kidney failure, unspecified - Cellulitis of right lower limb - Other disorders of bilirubin metabolism - Bradycardia, unspecified - Obesity, unspecified - Presence of prosthetic heart valve - Acute respiratory failure with hypoxia - Hypothyroidism, unspecified - Repeated falls - Paroxysmal atrial fibrillation - Repeated falls - Presence of prosthetic heart valve - Chronic diastolic (congestive) heart failure - Chronic obstructive pulmonary disease, unspecified - Abnormal levels of other serum enzymes - Atherosclerotic heart disease of [place] coronary artery without angina pectoris - Obesity, unspecified - Body mass index [BMI]30.0-30.9, adult - Chronic diastolic (congestive) heart failure - Atherosclerotic heart disease of [place] coronary artery without angina pectoris - FDC (current) use of anticoagulants - Dehydration - Alzheimer's disease, unspecified - Presence of aortocoronary bypass graft - Latex allergy status - Alzheimer's disease, unspecified - Abnormal levels of other serum enzymes - Cellulitis of left lower limb - Dehydration - Cellulitis of left lower limb - Latex allergy status - Acute kidney failure, unspecified - Bradycardia, unspecified - Metabolic encephalopathy - FDC (current) use of anticoagulants - Dementia in other diseases classified elsewhere without behavioral disturbance - Hyperlipidemia, unspecified - Other intermediate project manager (current) drug therapy - Hyperlipidemia, unspecified - Acute respiratory failure with hypoxia - Other disorders of bilirubin metabolism - Hypothyroidism, unspecified - Other intermediate project manager (current) drug therapy - Paroxysmal atrial fibrillation - Chronic obstructive pulmonary disease, unspecified 08/31/2020 18:34 [facility] TYPE: Internal Medicine DIAGNOSES: - Sick sinus [...] Ventricular tachycardia - Atherosclerotic heart disease of [place] coronary artery without angina pectoris - Chronic [...] Hypothyroidism, unspecified - Atherosclerotic heart disease of [place] coronary artery without angina pectoris - Alzheimer's disease, unspecified - Chronic diastolic (congestive) heart failure - Chronic obstructive pulmonary disease, unspecified - Atherosclerotic heart disease of [place] coronary artery without angina pectoris - exterminator termite (current) use of anticoagulants - exterminator termite (current) use of anticoagulants - Dementia in other diseases classified elsewhere without behavioral disturbance - Chronic diastolic (congestive) heart failure - Hypothyroidism, unspecified 04/09/2020 12:28 [facility] TYPE: Medical Surgical COMPLAINT: - COPD EXACERBATION / RULE OUT COVID DIAGNOSES: - exterminator termite (current) use of inhaled steroids - FDC (current) use of inhaled steroids - Other specified disorders of veins - Presence of prosthetic heart valve - Presence of cardiac pacemaker - Hypoxemia - Disorientation, unspecified - Other skilled nursing (current) drug therapy - Unspecified hearing loss, unspecified ear - FDC (current) use of anticoagulants - Abnormal coagulation profile - Other intermediate project manager (current) drug therapy - Latex allergy status [...] - Other specified disorders of veins - exterminator termite (current) use of anticoagulants - Gout, unspecified - Hypothyroidism, unspecified - Latex allergy status - Hypothyroidism, unspecified - Presence of prosthetic heart valve - Presence of aortocoronary bypass graft - Unspecified dementia without behavioral disturbance - Acute on chronic diastolic (congestive) heart failure - Chronic obstructive pulmonary disease with (acute) exacerbation - Gout, unspecified - Hypoxemia [email or web address]
== END 2021-03-16 21:26 | disposition short-term general hospital (02) ==
LOC: ED 14:25
DX: U07.1 COVID-19 (principal); R09.02 Hypoxemia; J98.11 Atelectasis; E78.5 Hyperlipidemia, unspecified; I11.0 Hypertensive heart disease with heart failure; M10.9 Gout, unspecified; E66.9 Obesity, unspecified; I50.9 Heart failure, unspecified; Z91.040 Latex allergy status; Z79.899 Other long term (current) drug therapy; Z79.01 Long term (current) use of anticoagulants
CPT/HCPCS: 71045; 71260; 80053; 83605; 83880; 84484; 85025; 85610; 99285-25; C9803; Q9967; U0003

== ENCOUNTER 2021-03-30 00:15 | Observation (INO) | payer OTHER ==
[~2021-03-30] VITALS: Ht 167.6 cm; Wt 87.9 kg
--- OUTSIDE RECORDS SUMMARY | 2021-03-30 00:18 | XMS ---
PreManage Notification: JACKLYN PATEL Security Signal Maintainer Events No recent Security Events currently on file CRITERIA MET - Group Notification - 6 ED Visits in 6 Months - PDMP - ED - Positive COVID-19 Lab Result - [facility] - [facility] - 2 Visits in 30 Days CARE PROVIDERS YEN PATEL DPM PHONE: [phone] ALETHA ALFONSO Internal Medicine Current PHONE: [phone] MEAGAN ALEXIS Nurse Practitioner Current PHONE: [phone] MONICA Joya [facility] Current PHONE: [phone] IKER Coats Managed Services Consultant: Clinical 11/07/2020-Current [facility] \Sapna\ THIERNO [facility] PHONE: [phone] CJ BLUNT Nurse Practitioner: Current PHONE: [phone] Lalo Nicholson DO Family Medicine Current PHONE: [phone] Nurse SISSY Practitioner Meseret RAMÍREZ PHONE: [phone] Leonila Cohen Pole Inspector/Certified Physical Therapist Assistant 01/19/2021-Current PHONE: [phone] [facility] PHONE: Unknown SAIMA ANDERSON 07/10/2018-Current PHONE: Unknown Rikki has no Care Guidelines for this patient. Care History Medical/Surgical 01/06/2019 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 - PATIENT PCP IS DR SAIMA ANDERSON AT THE [place]. 02/12/2018 [facility] [...] ED please contact Community Health WorkerAnamaria at [phone]. These are guidelines and the provider should exercise clinical judgment when providing care. E.D. VISIT COUNT (12 MO.) 14 KEZIA Burt TOTAL 14 NOTE: Visits indicate total known visits. ED/UCC VISIT TRACKING (12 MO.) 03/30/2021 00:15 [facility] TYPE: Emergency COMPLAINT: - CONFUSION 03/16/2021 14:26 [facility] TYPE: Emergency COMPLAINT: - DIFFICULTY BREATHING DIAGNOSES: - Hypertensive heart disease with heart failure - Latex allergy status - Hypoxemia - Other bed bug exterminator (current) drug therapy - FCI (current) use of anticoagulants - Shortness of breath - Atelectasis - Obesity, unspecified - COVID-19 - Hyperlipidemia, unspecified - Gout, unspecified - Heart failure, unspecified 01/20/2021 10:53 [facility] TYPE: Emergency COMPLAINT: - POSSIBLE UTI 01/18/2021 09:[address] [facility] [place] TYPE: Emergency COMPLAINT: - FALL DIAGNOSES: - Dehydration - Gout, unspecified - Contusion of unspecified front wall of thorax, initial encounter - Contusion of unspecified part of head, initial encounter - [facility] drug therapy - long term acute care registered nurse (current) use of anticoagulants - Unspecified fall, [...] Obesity, unspecified - Hyperlipidemia, unspecified - [facility] ([facility] drug therapy - Striking against or struck by other objects, initial encounter - Hypertensive heart disease with heart failure - Latex allergy status - long term acute care registered nurse (current) use of anticoagulants - Laceration without foreign body of left forearm, initial encounter - Heart failure, unspecified 11/04/2020 12:36 [facility] TYPE: Emergency COMPLAINT: - RASH ON L FOREARM DIAGNOSES: - Heart failure, unspecified - Hypertensive heart disease with heart failure - Obesity, unspecified - long term acute care registered nurse (current) use of anticoagulants - long term acute care registered nurse (current) use of opiate analgesic - Pain in left arm - Hyperlipidemia, unspecified - Lymphangitis - Other bed bug exterminator (current) drug therapy - Latex allergy status 09/29/2020 09:47 [facility] TYPE: Emergency COMPLAINT: - FALL, BACK PAIN DIAGNOSES: - Heart failure, unspecified - Hyperlipidemia, unspecified - Latex allergy status - Other bed bug exterminator (current) drug therapy - Obesity, unspecified - Weakness - Anemia, unspecified - long term acute care registered nurse (current) use of anticoagulants 09/17/2020 11:14 [facility] TYPE: Emergency COMPLAINT: - LEG PAIN, AND BLEEDING DIAGNOSES: - Hyperlipidemia, unspecified - [facility] ([facility] drug therapy - Hypertensive heart disease with heart failure - Obesity, unspecified - Localized edema - long term acute care registered nurse (current) use of anticoagulants - Heart failure, unspecified - Latex allergy status 09/09/2020 09:35 [facility] TYPE: Emergency COMPLAINT: - FALL DIAGNOSES: - Fall from or off toilet without subsequent striking against object, initial encounter - FCI (current) use of opiate analgesic - Hypertensive heart disease with heart failure - Unspecified fracture of fourth lumbar vertebra, initial encounter for closed fracture - Latex allergy status - Hyperlipidemia, unspecified - Heart failure, unspecified - Obesity, unspecified - Weakness - FCI (current) use of anticoagulants - Other bed bug exterminator (current) drug therapy 08/31/2020 09:53 [facility] TYPE: Emergency COMPLAINT: - CHEST PAIN DIAGNOSES: - Hypertensive heart disease with heart failure - Ventricular tachycardia - Disorientation, unspecified - Hyperlipidemia, unspecified - long term acute care registered nurse (current) use of opiate analgesic - [facility] ([facility] drug therapy - Latex allergy status - Disorientation, unspecified - Chest pain, unspecified - Weakness - Obesity, unspecified - Heart failure, unspecified - long term acute care registered nurse (current) use of anticoagulants 06/28/2020 13:24 [facility] TYPE: Emergency COMPLAINT: - CHEST PAIN DIAGNOSES: - Heart failure, unspecified - Other chest pain - Chest pain, unspecified - Latex allergy status - Unspecified abdominal pain - [facility] ([facility] drug therapy - Hyperlipidemia, unspecified - FCI (current) use of anticoagulants - Obesity, unspecified - FCI (current) use of opiate analgesic - Constipation, unspecified - Hypertensive heart disease with heart failure 05/18/2020 09:35 [facility] TYPE: Emergency COMPLAINT: - SWOLLEN LEGS 04/29/2020 18:39 [facility] TYPE: Emergency COMPLAINT: - TOE PAIN DIAGNOSES: - Latex allergy status - Hypertensive heart disease with heart failure - [facility] ([facility] drug therapy - Pain in right toe(s) - long term acute care registered nurse (current) use of anticoagulants - Heart failure, unspecified - Laceration without foreign body of right lesser toe(s) without damage to nail, initial encounter - Hyperlipidemia, unspecified - Contact with other nonpowered hand tool, initial encounter 04/09/2020 09:29 [facility] TYPE: Emergency COMPLAINT: - WEAKNESS, SOB INPATIENT VISIT TRACKING (12 MO.) 03/16/2021 22:45 [facility] TYPE: Intensive Care COMPLAINT: - COVID +, RESPIRATORY FAILURE, PACEMAKER DIAGNOSES: - Atherosclerotic heart disease of [place] coronary artery without angina pectoris - Presence of prosthetic heart valve - Shortness of breath - Exposure to other specified factors, initial encounter - Acute respiratory failure with hypoxia - Pulmonary hypertension, unspecified - Presence of aortocoronary bypass graft - Gout, unspecified - Presence of cardiac pacemaker - Cerebrovascular disease, unspecified - Chronic diastolic (congestive) heart failure - Pleural effusion in other conditions classified elsewhere - Peripheral vascular disease, unspecified - Paroxysmal atrial fibrillation - Other chronic pain - FCI (current) use of anticoagulants - Hypertensive heart and chronic kidney disease with heart failure and stage 1 through stage 4 chronic kidney disease, or unspecified chronic kidney disease - Low back pain - Other foreign object in bronchus causing asphyxiation, initial encounter - Alcoholic cirrhosis of liver without ascites - Obstructive sleep apnea (adult) (pediatric) - Chronic kidney disease, stage 3 unspecified - COVID-19 - Hyperlipidemia, unspecified 01/20/2021 15:03 [facility] TYPE: Medical [...] serum enzymes - Atherosclerotic heart disease of [place] coronary artery without angina pectoris - Obesity, unspecified - Body mass index [BMI]30.0-30.9, adult - Chronic diastolic (congestive) heart failure - Atherosclerotic heart disease of [place] coronary artery without angina pectoris - long term acute care registered nurse (current) use of anticoagulants - Dehydration - Alzheimer's disease, unspecified - Presence of aortocoronary bypass graft - Latex allergy status - Alzheimer's disease, unspecified - Abnormal levels of other serum enzymes - Cellulitis of left lower limb - Dehydration - Cellulitis of left lower limb - Latex allergy status - Acute kidney failure, unspecified - Bradycardia, unspecified - Metabolic encephalopathy - FCI (current) use of anticoagulants - Dementia in other diseases classified elsewhere without behavioral disturbance - Hyperlipidemia, unspecified - [facility] [place] drug therapy - Hyperlipidemia, unspecified - Acute respiratory failure with hypoxia - Other disorders of bilirubin metabolism - Hypothyroidism, unspecified - Other bed bug exterminator (current) drug therapy - Paroxysmal atrial fibrillation - Chronic obstructive pulmonary disease, unspecified [facility]2020 [facility] DIAGNOSES: - Sick sinus [...] Ventricular tachycardia - Atherosclerotic heart disease of [place] coronary artery without angina pectoris - Chronic [...] Hypothyroidism, unspecified - Atherosclerotic heart disease of [place] coronary artery without angina pectoris - Alzheimer's disease, unspecified - Chronic diastolic (congestive) heart failure - Chronic obstructive pulmonary disease, unspecified - Atherosclerotic heart disease of [place] coronary artery without angina pectoris - FCI (current) use of anticoagulants - FCI (current) use of anticoagulants - Dementia in other diseases classified elsewhere without behavioral disturbance - Chronic diastolic (congestive) heart failure - Hypothyroidism, unspecified 04/09/2020 12:28 [facility] TYPE: Medical Surgical COMPLAINT: - COPD EXACERBATION / RULE OUT COVID DIAGNOSES: - FCI (current) use of inhaled steroids - long term acute care registered nurse (current) use of inhaled steroids - Other specified disorders of veins - Presence of prosthetic heart valve - Presence of cardiac pacemaker - Hypoxemia - Disorientation, unspecified - [facility] [place] drug therapy - Unspecified hearing loss, unspecified ear - FCI (current) use of anticoagulants - Abnormal coagulation profile - Other bed bug exterminator (current) drug therapy - Latex allergy status [...] - Other specified disorders of veins - long term acute care registered nurse (current) use of anticoagulants - Gout, unspecified - Hypothyroidism, unspecified - Latex allergy status - Hypothyroidism, unspecified - Presence of prosthetic heart valve - Presence of aortocoronary bypass graft - Unspecified dementia without behavioral disturbance - Acute on chronic diastolic (congestive) heart failure - Chronic obstructive pulmonary disease with (acute) exacerbation - Gout, unspecified - Hypoxemia [email or web address]
--- NOTE | 2021-03-30 06:58 | NUR ---
pt ARRIVES TO [facility] FLOOR VIA STRETCHER, TRANSFERRED TO HOSPITAL BED WITH 3PA. pt CONFUSED, STATES "I THINK I'M GOING TO THE [facility]". REORIENTATION PROVIDED. pt THIN[facility] SON IS POA. ASSISTED TO USE URINAL. VSS. IVF INFUSING WNL ORDERED. BED ALARM PLACED. SON PHONED HOSPITAL, NOTIFIED THAT pt IS ADMITTED. CALL LIGHT IN REACH.
--- NOTE | 2021-03-30 07:50 | NUR ---
Spoke with Lesli from [facility], asked if pt cont. to live at [facility]. She states son, Johnny ROSALES, took him AMA to his appt in [facility] last night. He was taken AMA, so they would not have to accept him back. We can send a chart if and they will review.
--- NOTE | 2021-03-30 09:00 | NUR ---
REPORT RECEIVED FROM NIGHT RN AND PT. CARE RESUMED. PT. IS ORIENTED TO ALL BUT TIME, BUT IS CONFUSED AND FORGETFUL AT TIMES. 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 PT. HAS SCATTERED BRUISING ON CHEST, ARMS, LEGS. GENERALIZED TRACE EDEMA. ABRASIONS AND SCABS ON BOTH ARMS. DRESSING ON LEFT FOREARM PLACED IN ER. DRESSING WITH XEROFORM, GAUZE AND TAPE ON RIGHT LEG FOR ABRASION. SCAB ALSO PRESENT ON FOREHEAD. PT. COULD NOT RECALL HOW IT OCCURRED. CRACKKLES PRESENT BLE LOWER LOBES AND EXP. WHEEZES IN RUL. PT. ON 1L NC AND O2 SAT. IS 97%. HE STOOD AND PIVOTED WITH A HEAVY 2PA AND VOIDED ON COMMODE. HE CANNOT RECALL HOW HE AMBULATES AT HOME. IV SITES WNL AND FLUSH WELL. ATTENDS IN PLACE. PT. RESTING AND EATING BREAKFAST WITH CALL LIGHT IN REACH AND CURTAIN OPEN IN VIEW OF NURSE'S STATION.
--- NOTE | 2021-03-30 09:15 | NUR ---
Reviewed POA form and son, Johnny ROSALES is financial POA. Called and spoke with pt's daughter Brooklyn and updated. She will call other siblings. She states she has made a APS referral, but has not had any feed back from APS. Informed I have contact APS as pt is not able to live alone. She thanked me for this. Following my phone call from Brooklyn, I received a phone call from pt's son, Chris. He states brother, , is not medical POA. He had a conversation with his brother earlier this week and told him not to remove him from [facility] as pt is unable to care for himself or live alone due to his dementia. Chris went to the [facility] and took Johnny SAAB and return him to his apartment at [facility] last night. I updated Chris, I have called APS and gave David Shorty the phone numbers for himself and his sisters. We discussed possibilty of Johnny moving closer to one of the other children. Chris states he does not know financial status as is financial POA. I will call Maryellen Colin at [facility] and see if he qualifies for medicaid. Called [facility] and left a message Chris Devang [phone] son Brooklyn Mojica [phone] daughter Denisse Desir [phone] daughter
--- NOTE | 2021-03-30 09:26 | NUR ---
SPOKE WITH MARK GALVAN AT [facility]. REPORTED TO HER THAT PATIENT WAS FOUND AT HIS APARTMENT, UNABLE TO CARE FOR SELF WHICH IS THE SAME SITUATION HE HAS BEEN IN FOR SOME TIME. PATIENT LEFT THE SNF YESTERDAY. ALSO DISCUSSED WITH HER THAT ABISAI SPOKE WITH JOCELYNN WHO SALES PROFESSIONAL BILINGUAL AT [facility] AND SHE STATES SHE TOLD SON HE HAD TO STAY WITH THE PATIENT HE HAS NO CAREGIVER. SON REFUSED TO STAY OVERNIGHT. DISCUSSED WITH MARK THAT WE HAVE SPOKEN WITH HIS OTHER KIDS ON THE PAST STAY AND THEY ARE WILLING TO HELP WITH THIS SITUATION. IT WAS BROUGHT TO OUR ATTENTION LAST ADMIT THAT THE SON JACKLYN HERE HAS FINANCIAL POA, BUT FAR WE KNOW THAT IS IT. SHE WAS UNAWARE OF THE OTHER ADULT CHILDREN, SHE ONLY HEARD OF ONE OTHER SON. SHE STATES SHE IS NOT SURE AND WILL TALK WITH THE DISTRICT SCOUT EXECUTIVE TO GET UPDATES. THEY HAVE AN OPEN FILE ON THIS. I EXPRESSED THAT THIS SITUATION IS UNACCEPTABLE, THAT THE PATIENT IS NOT SAFE IN THE SITUATION AT ALL. SHE WILL GET BACK TO US.
--- NOTE | 2021-03-30 10:37 | NUR ---
7 ATTEMPTS BY 2 RNS TO DRAW LABS. UNSUCCESSFUL. SON PRESENT IN THE ROOM. PT. LEFT RESTNG WITH ALARM ON AND CALL LIGHT IN REACH.
--- NOTE | 2021-03-30 11:44 | NUR ---
Received call from pt's son, Johnny. He began by stating everyone is rude and he was mistreated. He was asked to leave as his father is covid +.Tried to explain when pt's test +, if family is present they may stay, but not leave the room. I was notified by staff he made several trips out of the room and went to the cafeteria. Informed son, policies are in place to prevent the spread of covid. Son denies pt has covid. I also let him know his brother and sister called and he states they are not to be given any information. Reminded JR, I was in the room in January when father clearly stated he did not want his information confidential and wanted all family members to be allowed to call, visit, or receive information. Son begins yelling loudly he is the POA and he will alyson the hospital and never bring his father here again. Discussed with son other siblings are very worried about Johnny senior also. It is the father's wish they be included. Son would like pts chart sent to [facility] as he would like him placed there on discharge. I will fax the chart, but I am sure he will not be accepted until he has a negative covid test.
--- NOTE | 2021-03-30 11:46 | NUR ---
PATIENT'S SON IN AND OUT OF ROOM 3 TIMES THIS MORNING, DESPITE MULTIPLE CONVERSATIONS REGARDING HOSPITAL COVID VISITOR POLICY. PER CNO, CONCRETE BATCHING PLANT OPERATOR CAME TO FLOOR AND ASKED SON TO LEAVE HOSPITAL FOR DAY.
--- NOTE | 2021-03-30 12:45 | NUR ---
Notified by staff pt is planning on going AMA. Asked how he going to do this as he is not able to take himself out. He falls when he walks. Notified his son, Сергей, is here and I will speak with him. Spoke with Сергей, he states he has been speaking with all family members. They DO NOT want pt to leave and do not want him to go home as he is unsafe and a fall risk. Supervisors into room and updated she has spoken with Johnny LEMA and he has decided to stay. Son, Сергей, has Chris on the phone and sister Denisse has called in. All have stated they do not want pt to leave if Johnny ROSALES attempts to take him AMA. Informed I will call APS for advice. Called and spoke with Aron at APS. Per Aron pt may leave if he chooses to do so, it is only up to him. Updated family are very concerned, if pt is taken home by Johnny ROSALES he will be left alone in his apartment. She suggests family contact a women's activities adviser. I returned to room and updated I cannot make Johnny stay if he wishes to leave, but APS suggest family collectively speak with a women's activities adviser about a emergency guardianship. This was passed along to the family. Daughter Denisse states she will call a women's activities adviser.
--- NOTE | 2021-03-30 13:12 | NUR ---
CALLED TO PTS ROOM BY PTS SON WHO WAS VISITING ANOTHER PT. PTS SON REPORTS THAT HIS FATHER WOULD LIKE TO LEAVE AMA AND THAT HE BELIEVES HE SHOULD STAY. SPOKE WITH PT ABOUT THIS, HE STATED THAT IF IT IS ADVISED HE STAYS THEN HE WILL. PT IS ALERT AND SEEMS TO BE ORIENTED, ALTHOUGH HE DOES REPEATEDLY STATE THAT HE IS UNSURE OF WHAT HE NEEDS TO DO, AND NEEDS HELP DECIDING. PTS SON STATES THAT THE PT WILL GO ALONG WITH WHO HE PLAN IS STANDING IN ROOM TALKING TO HIM AT THE TIME. REPORTED THIS TO DR MOSES FROM CASE MANAGEMENT.
--- NOTE | 2021-03-30 13:47 | NUR ---
PT HAD AN INCONTINENT VOID. ATTENDS CHANGED AND CLEANED. PT. ASSISTED WITH REPOSITIONING. DENIES PAIN AT THIS TIME.
--- NOTE | 2021-03-30 14:03 | EKG ---
[facility] [address] [place] [address] Signed Atrial-paced rhythm with prolonged AV conduction Left bundle branch block Abnormal ECG When compared with ECG of 20-JAN-2021 12:01, premature ventricular complexes are no longer present QRS duration has decreased Confirmed by GERI ELLISON MD ([id number]) on 03/30/2021 2:03:49 PM Electronically Signed By: GERI ELLISON MD 03/30/21 1403 PATIENT NAME: JACKLYN PATEL Electrocardiogram DATE OF : 31 PHYSICIAN: GERI ELLISON MD REPORT #: [id number] REPORT IS CONFIDENTIAL AND NOT TO BE RELEASED WITHOUT AUTHORIZATION
--- NOTE | 2021-03-30 14:32 | NUR ---
Notified by [facility] they will not accept this pt as he is covid +. Chart faxed to [facility] and requested if they will accept this pt to return, awaiting response.
--- NOTE | 2021-03-30 16:00 | NUR ---
Call from daughter Denisse. Update from her, she has contact a permaculture contractor and they are requesting immediate guardianship.
--- NOTE | 2021-03-30 16:36 | NUR ---
Received message from Lesli at [facility]. They received referral for Johnny to return and they will review the chart. They have questions of who will be his medical rep as there have been issues with son, Johnny.
--- NOTE | 2021-03-30 19:00 | NUR ---
SHIFT REPORT RECEIVED FROM DAYSHIFT SAMEER WYNN IN HALLWAY, pt AWAKE AND RESTING IN BED. ALARM ON FOR SAFETY. 1LNC IN PLACE, RR EVEN AND UNLABORED. NO DISTRESS NOTED, CALL LIGHT IN REACH.
--- NOTE | 2021-03-30 21:30 | NUR ---
pt RESTING IN BED WITH EYES CLOSED, RR EVEN AND UNLABORED. NO DISTRESS NOTED, CALL LIGHT IN REACH. BED ALARM REMAINS IN FOR SAFETY.
--- NOTE | 2021-03-30 22:45 | NUR ---
ASSESSMENT COMPLETE, VSS. 1LNC IN PLACE, RR EVEN AND UNLABORED. NO DISTRESS NOTED. pt BOOSTED IN BED WITH HELP FROM SAMEER LINCOLN. HX DEMENTIA, pt ORIENTED TO SELF, VERY EKLUTNA. IV SITE WNL, FLUSHES EASILY I&O'S ALSO DONE. BED ALARM REMAINS ON FOR SAFETY, CALL LIGHT IN REACH. INDUSTRIAL PRODUCTION MANAGER JELENA AWARE AND PLANS TO COME AND ASSIST pt TO BATHROOM FOR POSSIBLE BM.
--- NOTE | 2021-03-30 23:15 | NUR ---
in to get pt up to the toilet, pt addimit about wearing his shoes, pt back to bed, no further needs
--- NOTE | 2021-03-31 03:45 | NUR ---
pt AWAKE AND RESTING IN BED, RIVET DRIVER JELENA IN ROOM TO COLLECT VS AND I&O'S. NO ADDITIONAL NEEDS VERBALIZED, CALL LIGHT IN REACH.
--- NOTE | 2021-03-31 03:50 | NUR ---
IN TO GET VITALS, I@Os, VOIDED WITH URINAL AND SMALL INCONT, ATTENDS CHANGED, WARM BLANKET PROVIDED, NO FURTHER NEEDS AT THIS TIME
--- NOTE | 2021-03-31 05:54 | NUR ---
SCHEDULED THYROID MED GIVEN, SEE EMAR. ASSESSMENT COMPLETE, NO NEW CHANGES OR CONCERNS. BED ALARM ON FOR SAFETY, CALL LIGHT IN REACH.
--- NOTE | 2021-03-31 06:10 | NUR ---
LAB DRAW COLLECTED WITH HELP FROM SAMEER LOPEZ AND SENT TO LAB. TOURNIQUET REMOVED FROM pt. NO FURTHER NEEDS, CALL LIGHT IN REACH. BED ALARM ON.
--- NOTE | 2021-03-31 07:52 | NUR ---
Left message for Lesli at [facility] asking if Johnny could return. Four children called yesterday requesting pt return as they are concerned for his safety and do not feel he can stay alone at his apartment. They are very upset he was removed from the assisted as he is unsafe on his own and has dementia.
--- NOTE | 2021-03-31 08:43 | NUR ---
1PA PATIENT UP TO COMMODE AND THEN TO CHAIR FOR BREAKFAST. BEDBATH AND SHAVE PROVIDED, FACE AND HANDS WASHED. HEARING AIDS IN, CHAIR ALARM ON FOR SAFETY. CALL LIGHT IN EASY REACH
--- NOTE | 2021-03-31 09:01 | NUR ---
Notified by [facility] they will accept Johnny back today. Pt's son Сергей is here and spoke with pt. I also spoke with pt and Johnny agrees to return to [facility]. Dr. Pederson with another pt. I will notify when he is available. Spoke with Don, he cannot transport dad due to his covid status as Don as respiratory issues. He states if dad needs anything at [facility], they can call him and he will assist. I will schedule [facility] transport to transport as they are the only transport that will transfer Covid + pts.
--- NOTE | 2021-03-31 09:35 | NUR ---
MED REC COMPLETE
--- NOTE | 2021-03-31 10:20 | NUR ---
Dr Pederson is completing orders. I called and scheduled transport and they can only transport at 1035, I asked if they could give us a little more time, but their drivers have out of town transports. They state 10[address] is the latest. Nurses and Dr. Pederson notified. Orders faxed to Lesli at [facility] and she will have RN confirm orders. Requested they confirm orders quickly as transport wants to pick pt up in 15 min.
--- NOTE | 2021-03-31 10:50 | NUR ---
Transport here, orders not confirmed. Called Lesli and let her know they will not wait, she states to sent the pt. Received call from Aime Patel 5 mins. later orders are confirmed.
--- NOTE | 2021-03-31 11:17 | NUR ---
PATIENT LEFT WITH ALL BELONGINGS INCLUDING PHONE, STAND, CONSUMER SAFETY OFFICER, HEARING AIDS AND CONSUMER SAFETY OFFICER FOR THEM. PT.VITALS STABLE AND DENIES PAIN. TAKEN VIA WHEEL CHAIR TO MEDICAL TRANSPORT VEHICLE.
== END 2021-03-31 11:10 ==
LOC: ED 00:15 → MS 00:16
PROVIDERS: ADMIT Internal Medicine; ATTEND Internal Medicine
DX: F03.90 Unspecified dementia, unspecified severity, without behavioral disturbance, psychotic disturbance, mood disturbance, and anxiety (principal); F05 Delirium due to known physiological condition; I11.0 Hypertensive heart disease with heart failure; I50.32 Chronic diastolic (congestive) heart failure; J44.9 Chronic obstructive pulmonary disease, unspecified; Z20.822 Contact with and (suspected) exposure to COVID-19; E78.5 Hyperlipidemia, unspecified; E03.9 Hypothyroidism, unspecified; I48.91 Unspecified atrial fibrillation; Z79.01 Long term (current) use of anticoagulants; Z91.040 Latex allergy status
CPT/HCPCS: 51701; 70450; 71045; 80053; 81001; 82140; 82803; 83880; 84484; 85025; 85610; 93005; 93010; 94640; 94668; 94760; 96375; 96376; 97163; 97166; 99285-25; C9803; G0378; J1100; J1940; J7121; U0003

== ENCOUNTER 2021-04-14 00:50 | Observation (INO) | payer MEDICARE, OTHER ==
[~2021-04-14] VITALS: Ht 167.6 cm; Wt 86.0 kg
--- OUTSIDE RECORDS SUMMARY | 2021-04-14 00:54 | XMS ---
PreManage Notification: JACKLYN PATEL Security Rn Community Health Events No recent Security Events currently on file CRITERIA MET - PDMP - ED - Positive COVID-19 Lab Result - OHA - Group Notification - 6 ED Visits in 6 Months - [facility] - 2 Visits in 30 Days CARE PROVIDERS YEN PATEL DPM PHONE: [phone] ALETHA ALFONSO Internal Medicine Current PHONE: [phone] MEAGAN ALEXIS Nurse Practitioner Current PHONE: [phone] MONICA Joya [facility] Current PHONE: [phone] IKER Coats Associate Veterinarian: Clinical 11/07/2020-Current [facility] \Sapna\ [facility] PHONE: [phone] CJ BLUNT Nurse Practitioner: Current PHONE: [phone] Lalo Nicholson DO Family Medicine Current PHONE: [phone] Nurse SISSY Practitioner Meseret RAMÍREZ PHONE: [phone] Leonila Cohen Pilot Manager/Transfer Driver 01/19/2021-Current PHONE: [phone] [facility] Current [facility]: [phone] [facility] PHONE: Unknown SAIMA ANDERSON 07/10/2018-Current PHONE: Unknown Rikki has no Care Guidelines for this patient. 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 - PATIENT PCP IS DR SAIMA ANDERSON AT THE OR. 02/12/2018 [facility] Care Recommendation: This patient has had 5 or more Emergency Department visits in the last 12 months. Patient requires education on the scope and purpose of the ED as an acute care provider not a Primary Care Provider and should not be utilized for chronic conditions. If patient returns to ED please contact Community Health WorkerAnamaria at [phone]. These are guidelines and the provider should exercise clinical judgment when providing care. Deidre VISIT COUNT (12 MO.) 14 [facility] TOTAL 14 NOTE: Visits indicate total known visits. ED/C VISIT TRACKING (12 MO.) 04/14/2021 00:51 [facility] TYPE: Emergency COMPLAINT: - DIFFICULTY BREATHING 03/30/2021 00:15 [facility] TYPE: Emergency COMPLAINT: - CONFUSION 03/16/2021 14:26 [facility] TYPE: Emergency COMPLAINT: - DIFFICULTY BREATHING DIAGNOSES: - Hypertensive heart disease with heart failure - Latex allergy status - Hypoxemia - Other detention (current) drug therapy - CHCF (current) use of anticoagulants - Shortness of [...] part of head, initial encounter - Other detention (current) drug therapy - lobsterman (current) use of anticoagulants - Unspecified fall, [...] Obesity, unspecified - Hyperlipidemia, unspecified - Other detention (current) drug therapy - Striking against or struck by other objects, initial encounter - Hypertensive heart disease with heart failure - Latex allergy status - lobsterman (current) use of anticoagulants - Laceration without foreign body of left forearm, initial encounter - Heart failure, unspecified 11/04/2020 12:36 [facility] TYPE: Emergency COMPLAINT: - RASH ON L FOREARM DIAGNOSES: - Heart failure, unspecified - Hypertensive heart disease with heart failure - Obesity, unspecified - lobsterman (current) use of anticoagulants - CHCF (current) use of opiate analgesic - Pain in left arm - Hyperlipidemia, unspecified - Lymphangitis - Other lobsterman (current) drug therapy - Latex allergy status 09/29/2020 09:47 [facility] TYPE: Emergency COMPLAINT: - FALL, BACK PAIN DIAGNOSES: - Heart failure, unspecified - Hyperlipidemia, unspecified - Latex allergy status - Other lobsterman (current) drug therapy - Obesity, unspecified - Weakness - Anemia, unspecified - CHCF (current) use of anticoagulants 09/17/2020 11:14 [facility] TYPE: Emergency COMPLAINT: - LEG PAIN, AND BLEEDING DIAGNOSES: - Hyperlipidemia, unspecified - Other detention (current) drug therapy - Hypertensive heart disease with heart failure - Obesity, unspecified - Localized edema - lobsterman (current) use of anticoagulants - Heart failure, unspecified - Latex allergy status 09/09/2020 09:35 [facility] TYPE: Emergency COMPLAINT: - FALL DIAGNOSES: - Fall from or off toilet without subsequent striking against object, initial encounter - CHCF (current) use of opiate analgesic - Hypertensive heart disease with heart failure - Unspecified fracture of fourth lumbar vertebra, initial encounter for closed fracture - Latex allergy status - Hyperlipidemia, unspecified - Heart failure, unspecified - Obesity, unspecified - Weakness - CHCF (current) use of anticoagulants - Other lobsterman (current) drug therapy 08/31/2020 09:53 [facility] TYPE: Emergency COMPLAINT: - CHEST PAIN DIAGNOSES: - Hypertensive heart disease with heart failure - Ventricular tachycardia - Disorientation, unspecified - Hyperlipidemia, unspecified - lobsterman (current) use of opiate analgesic - Other lobsterman (current) drug therapy - Latex allergy status - Disorientation, unspecified - Chest pain, unspecified - Weakness - Obesity, unspecified - Heart failure, unspecified - lobsterman (current) use of anticoagulants 06/28/2020 13:24 [facility] TYPE: Emergency COMPLAINT: - CHEST PAIN DIAGNOSES: - Heart failure, unspecified - Other chest pain - Chest pain, unspecified - Latex allergy status - Unspecified abdominal pain - Other detention (current) drug therapy - Hyperlipidemia, unspecified - CHCF (current) use of anticoagulants - Obesity, unspecified - CHCF (current) use of opiate analgesic - Constipation, unspecified - Hypertensive heart disease with heart failure 05/18/2020 09:35 [facility] TYPE: Emergency COMPLAINT: - SWOLLEN LEGS 04/29/2020 18:39 [facility] TYPE: Emergency COMPLAINT: - TOE PAIN DIAGNOSES: - Latex allergy status - Hypertensive heart disease with heart failure - Other detention (current) drug therapy - Pain in right toe(s) - lobsterman (current) use of anticoagulants - Heart failure, unspecified - Laceration without foreign body of right lesser toe(s) without damage to nail, initial encounter - Hyperlipidemia, unspecified - Contact with other nonpowered hand tool, initial encounter INPATIENT VISIT TRACKING (12 MO.) 03/30/2021 00:16 [facility] TYPE: Observation COMPLAINT: - COVID/ENCEPHALOPATHY DIAGNOSES: - Latex allergy status - Hypothyroidism, unspecified - Hyperlipidemia, unspecified - Hypertensive heart disease with heart failure - Chronic obstructive pulmonary disease, unspecified - Unspecified atrial fibrillation - Chronic diastolic (congestive) heart failure - Delirium due to known physiological condition - lobsterman (current) use of anticoagulants - Unspecified dementia without behavioral disturbance 03/16/2021 22:45 [facility] TYPE: Intensive Care COMPLAINT: - COVID +, RESPIRATORY FAILURE, PACEMAKER DIAGNOSES: - Atherosclerotic heart disease of campo coronary artery without angina pectoris - Presence [...] atrial fibrillation - Other chronic pain - lobsterman (current) use of anticoagulants - Hypertensive heart [...] serum enzymes - Atherosclerotic heart disease of campo coronary artery without angina pectoris - Obesity, unspecified - Body mass index [BMI]30.0-30.9, adult - Chronic diastolic (congestive) heart failure - Atherosclerotic heart disease of campo coronary artery without angina pectoris - lobsterman (current) use of anticoagulants - Dehydration - Alzheimer's disease, unspecified - Presence of aortocoronary bypass graft - Latex allergy status - Alzheimer's disease, unspecified - Abnormal levels of other serum enzymes - Cellulitis of left lower limb - Dehydration - Cellulitis of left lower limb - Latex allergy status - Acute kidney failure, unspecified - Bradycardia, unspecified - Metabolic encephalopathy - lobsterman (current) use of anticoagulants - Dementia in other diseases classified elsewhere without behavioral disturbance - Hyperlipidemia, unspecified - Other lobsterman (current) drug therapy - Hyperlipidemia, unspecified - Acute respiratory failure with hypoxia - Other disorders of bilirubin metabolism - Hypothyroidism, unspecified - Other lobsterman (current) drug therapy - Paroxysmal atrial fibrillation - Chronic obstructive pulmonary disease, unspecified 08/31/2020 18:34 [facility] TYPE: Internal Medicine DIAGNOSES: - Sick [...] Ventricular tachycardia - Atherosclerotic heart disease of campo coronary artery without angina pectoris - Chronic diastolic (congestive) heart failure - Acute respiratory failure with hypoxia - Essential (primary) hypertension 05/18/2020 12:[address] [facility] [place] TYPE: Medical Surgical COMPLAINT: - CELLULITIS [...] Hypothyroidism, unspecified - Atherosclerotic heart disease of campo coronary artery without angina pectoris - Alzheimer's disease, unspecified - Chronic diastolic (congestive) heart failure - Chronic obstructive pulmonary disease, unspecified - Atherosclerotic heart disease of campo coronary artery without angina pectoris - CHCF (current) use of anticoagulants - lobsterman (current) use of anticoagulants - Dementia in other diseases classified elsewhere without behavioral disturbance - Chronic diastolic (congestive) heart failure - Hypothyroidism, unspecified [email or web address]
--- NOTE | 2021-04-14 06:03 | NUR ---
patient arrived to the unit via stretcher. moved over with 2pa. patient is alert and follows commands. oriented to self and surroundings. patient voided 100mls in urnal with assistance. patient has several bruises on his back, buttocks, shoulders, arms, and legs. many woulds that are in multiple stages of healing. dressing covering his left hand. multiple small wounds with steri strips covering.
--- NOTE | 2021-04-14 08:00 | NUR ---
REPORT RECEIVED FROM NIGHT RN AND PT. CARE RESUMED. PT. TRANSFERRED FROM CCU. PT. IS DROWSY BUT AROUSES EASILY AND ORIENTED TO SELF ONLY. WHEN ASKED ABOUT SAFETY, PT. STATES HE DOES NOT FEEL SAFE. HE STATES THAT "THE GUYS THERE GRAB ONTO ME TOO TIGHT AND IT REALLY HURTS". HE ALSO STATES THAT THEY TELL HIM HE IS GOING TO [facility]P. ON 2L O2 OXYMASK AND O2 SAT. IS 99%. CRACKLES PRESENT THROUGHOUT LUNGS. RESP. RATE IS 22. SCATTERED BRUISES THROUGHOUT CHEST, BACK, ARMS HANDS. SKIN TEAR COVERED ON LEFT HAND PRESENT AT ADMIT. CLEANED AND REPLACED DRESSING WITH AN ALLEVYN. SCAB ON RIGHT HAND COVERED WITH 2 STERI STRIPS ON ADMIT. BANDAID ON FOREHEAD WITH A SMALL SCAB PRESENT UNDERNEATH. +1 EDEMA BLE. HEEL PROTECTORS PLACED AND PT. ASSISTED WITH REPOSITIONING. PT. LEFT IN BED WITH ALARM ON AND CURTAIN OPEN. CALL LIGHT IN HAND
--- NOTE | 2021-04-14 09:26 | NUR ---
[facility] [employer] [employer] CALLED AND NOTIFIED REGARDING PT. STATING HE DOES NOT FEEL SAFE AT [place].
--- NOTE | 2021-04-14 10:07 | NUR ---
DURING AM MEETING DR. ELLISON TO DISCHARGE PATEINT BACK TO [facility] TOMORROW. CARLEY @ T OKAY FOR PATIENT TO RETURN TO [facility] 04/15/21. CLINICAL FAXED TO [facility]. ELECTRONICS DEPARTMENT MANAGERSAMEER COOMBS.
--- NOTE | 2021-04-14 10:27 | NUR ---
CASE MANAGEMENT ASSESSMENT COMPLETED WITH ASSISTANCE FROM PREVIOUS ASSESSMENT AND CURRENT H&P. PATIENT IN ROOM, LAYING IN BED. DANA PINO AT BEDSIDE ASSISTING PATIENT AT THIS TIME. WILL CONTINUE TO FOLLOW UP ON PATIENT DURING HIS VISIT.
--- NOTE | 2021-04-14 12:04 | NUR ---
02 SAT. WAS 100% ON 2L. TITRATED TO 1L AND O2 SAT. STAYED ABOVE 95%. CRACKLES PRESENT IN BASES OF LUNGS. IV SITES WNL. PT. HAD AN INCONTINENT VOID. KARUNA AREA RED AND BARRIER CREME AND ATTENDS APPLIED. PT. IS EATING AND DRINKING WELL, BUT DOES NOT HAVE DENTURES HERE. HE HAS NOT BEEN OUT OF BED BUT IS ABLE TO TURN HIMSELF AND USE HIS FEET TO BOOST HIMSELF IN BED. HE DENIES PAIN AT THIS TIME. LEFT RESTING WITH CALL LIGHT IN REACH, CURTAIN OPEN AND ALARM ON.
--- NOTE | 2021-04-14 14:30 | NUR ---
PATIENT CALLING OUT FOR [facility], THIS REFRACTORY TECHNICIAN AND RN KINGSLEY RESPONDED. CCU STAFF AND SECURITY IN ROOM ALREADY. PATIENT YELLING AND STATING HE "NEEDS TO POOP" WELL "OH GOD I'M DYING" THIS REFRACTORY TECHNICIAN AND RN KINGSLEY TALKED PATIENT THROUGH HIS PANIC ENOUGH TO GET HIM TO SAFELY TRANSFER TO BS WITH FWW. O2 SATS WERE 96, NC IN PLACE. PATIENT HAS BEEN ASKING ALL AFTERNOON FOR HIS DENTURES AND HEARING AIDS. PATIENT HAS BEEN REMINDED THAT THESE ITEMS ARE AT [facility], BUT SOON FORGETS, AND CALLS FOR THEM AGAIN. PATIENT HAD LG BM AND TRANSFERED BACK TO BED. PATIENT IS CALM AND HAS NOW BEEN TRANSFERRED TO RM 113. CALL LIGHT IN REACH
--- NOTE | 2021-04-14 14:54 | NUR ---
In to speak with Johnny. He is sleeping soundly. Attempted to call son Chris, unable to contact. Dr. Tao plans on pt returning to [facility] tomorrow.
--- NOTE | 2021-04-14 15:25 | NUR ---
PT. IS HEARD SCREAMING DOWN THE HALLWAY. AIR INTELLIGENCE OFFICER AND SECURITY PRESENT IN THE ROOM. HE IS VERY ANXIOUS AND STATES HE IS DYING REPEATEDLY. O2 SAT IS 94% ON 2L NC. VITALS STABLE. HE IS INCONSOLABLE AND CRYING. AFTER 5 MINUTES, HE IS CALMER AND ASKS TO USE THE COMMODE. AMBULATED WITH FWW TO BEDSIDE COMMODE AND 2PA. TOLERATED WELL AND HAD A LARGE BM. PT. TRANSFERRED WITH ALL BELONGINGS TO ROOM 113 TO BE INSIGHT OF STAFF. PT. CALM AND DRIFTING OFF TO SLEEP.
--- NOTE | 2021-04-14 18:08 | NUR ---
Patient was eating dinner and c/o stomach pain. The nurse told him he was on meds that made him urinate frequently when he motioned towards his bladder. Patient then proceeded to eat. Patient had an incontinent episode and his brief was changed accordingly. The call light was left in reach. Is and Os charted.
--- NOTE | 2021-04-14 19:34 | NUR ---
SHIFT REPORT RECEIVED FROM KINGSLEY ESTRELLA. PT RESTING IN BED. VAPOTHERM ON. NO NEEDS. CALL LIGHT IN REACH.
--- NOTE | 2021-04-14 19:35 | NUR ---
PT RESTING IN BED, WATCHING TV. NC @ 2L. NO NEEDS AT THIS TIME. CALL LIGHT IN REACH.
--- NOTE | 2021-04-14 19:57 | NUR ---
RETURNED PHONE CALL TO ISAIAH PATEL TO UPDATE FAMILY. ALL QUESTIONS ANSWERED.
--- NOTE | 2021-04-14 21:10 | NUR ---
IN TO GET VITALS, REFILLED ICEWATER, PT DENIES NEED TO VOID AT THIS TIME, PT HAD A HIGH TEMP OF 100.6, INFORMED THE RN AND HAD PT USE THE I.S., WILL RECHECK TEMP, NO FURHTER NEEDS
--- NOTE | 2021-04-14 22:43 | NUR ---
ASSESSMENT COMPLETED. SCHEDULED MEDS PROVIDED. TYLENOL PROVIDED FOR ELEVATED TEMP. GCS 15, ORIENTED TO PERSON AND PLACE. LUNGS HAVE FINE CRACKLES IN UPPER LOBES AND COURSE CRACKLES IN LOWER LOBES. NC @ 2L. HEART TONES HAVE CLICK. ABD SOFT, NONTENDER, BOWEL TONES ACTIVE. BLE HAVE 1+ EDEMA AND DISCOLORATION. SCATTERED SCABS NOTED. IVs WNL, CDI, FLUSHED WELL. NO OTHER NEEDS AT THIS TIME. CALL LIGHT IN REACH.
--- NOTE | 2021-04-15 00:10 | NUR ---
PATIENT IS RESTING IN BED WITH EYES CLOSED, RR 19. CALL LIGHT IN REACH. BED ALARM ON FOR SAFETY.
--- NOTE | 2021-04-15 00:15 | NUR ---
IN TO RECHECK TEMP, 98.8
--- NOTE | 2021-04-15 00:42 | NUR ---
PATIENT REPOSITIONED IN BED. PATIENTS OXYGEN INCREASED TO 3L VIA NC. PATIENT PROVIDED WITH SIPS OF WATER. NO FURTHER NEEDS NOTED. CALL LIGHT IN REACH.
--- NOTE | 2021-04-15 00:42 | NUR ---
IN TO ASSIST RN WITH BOOSTING PT IN BED, SIP OF WATER PROVIDED, RN CHECKING O2
--- NOTE | 2021-04-15 01:48 | NUR ---
PATIENT ASSISTED TO THE BSC A 2PA W/FWW. PATIENTS ATTEND WAS WET. PATIENT WAS ALSO ABLE TO VOID. PATIENT IS BACK IN BED RESTING. PATIENT DENIES ANY FURTHER NEEDS. CALL LIGHT IN REACH.
--- NOTE | 2021-04-15 03:50 | NUR ---
PATIEN REPOSITIONED. NO NEEDS NOTED. CATTEND IS DRY. CALL LIGHT IN REACH. BED ALARM ON FOR SAFETY.
--- NOTE | 2021-04-15 04:30 | NUR ---
PATIENT ASSISTED IN USING URINAL. PATIENT WAS ABLE TO VOID. VITALS TAKEN AND RECORED. INTAKE AND OUPUT RECORDED. PATIENT DENIES ANY NEEDS. CALL LIGHT WITHIN REACH. BED ALARM ON FOR SAFETY. SIPS OF WATER PROVIDED.
--- NOTE | 2021-04-15 05:13 | NUR ---
PATIENTS LABS DRAWN AND SENT TO LAB. PATIENT DENIES ANY NEEDS. CALL LIGHT IN REACH. SIPS OF WATER PROVIDED. CALL LIGHT IN REACH.
--- NOTE | 2021-04-15 07:45 | NUR ---
Scheduled medications administered along with PRN tylenol. Pt is agitated and crying out "I'm going to , please help me, oh Lord" This RN and two PEDIATRIC LPN in room to assist pt. Pt SPO2 89% with 2L NC, stating "I can't get my air". This RN placed pt on 6L oxymask O2, pt SPO2 climbs to 95-96%, pt settles down with this, continually titrated back down until on 2L oxymask. Pt reassured verbally, continues to sporadically become anxious. MD alerted, new order for Seroquel received, administered. Will cont to monitor
--- NOTE | 2021-04-15 08:30 | NUR ---
Pt resting in bed with eyes closed, resp even and unlabored. 2L oxymask in place. Pt denies wanting to eat breakfast at this time. spo2 96%, no distress noted, call light in reach and bed alarm on
--- NOTE | 2021-04-15 10:00 | NUR ---
Vitals and I/O's completed. Pt awakens to voice and briefly becomes anxious but responds to verbal reassurance. Continues to use oxymask at this time after breathing tx. No needs at this time.
--- NOTE | 2021-04-15 12:22 | NUR ---
2pa with fww patient from bed to chair, alarm on for safety. Lunch on table in front of patient. Patient refused lunch, but started eating shortly after. Call light in reach, no other needs at this time
--- NOTE | 2021-04-15 13:30 | NUR ---
Urine sample collected, pt sitting up in chair. Attends changed with incontinence of urine x1. Pt continues to be confused, tells nurse he needs to leave and go to the hospital. Remains on 2L NC with SP02 WNL. Easily redirectable. Call light in reach, will continue to monitor
--- NOTE | 2021-04-15 14:03 | EKG ---
[facility] [address] [place] [address] Signed Normal sinus rhythm Left bundle branch block Abnormal ECG When compared with ECG of 30-MAR-2021 00:45, Confirmed by DORA ALEXANDRE DO ([id number]) on 04/15/2021 2:02:57 PM Electronically Signed By: DORA ALEXANDRE DO 04/15/21 1403 PATIENT NAME: JACKLYN PATEL Electrocardiogram DATE OF : 31 PHYSICIAN: DORA ALEXANDRE DO REPORT #: [id number] REPORT IS CONFIDENTIAL AND NOT TO BE RELEASED WITHOUT AUTHORIZATION
--- NOTE | 2021-04-15 15:55 | NUR ---
PT YELLING OUT. THIS NURSE TO BEDSIDE. PT REPORTS NEEDING TO USE BATHROOM. PT STANDS UP WITH MINIMAL ASSISTANCE. PT IS [place] AND UNABLE TO HEAR ALL COMMANDS. PT THEN ATTEMPS TO WALK FORWARD TO BATHROOM ASSISTANCE CALLED IN. PTS KNEES KEEP BUCKLING. BSC BROUGHT TO PT. PT HAD SMALL BM AND UNMEASURED VOID. PT THEN ASSISTED TO BED. CALL LIGHT IN REACH. BED ALARM IN PLACE.
--- NOTE | 2021-04-15 17:00 | NUR ---
Scheduled medications administered. Pt resting in bed at this time, eyes closed and even and unlabored repsirations. 2L O2 via NC, spo2 100%. No needs identified at this time.
--- NOTE | 2021-04-15 17:30 | NUR ---
Pt IV ABX complete, saline locked. Dinner at bedside table, this RN assisted pt to eat, able to eat 50% and drink a whole ensure. POLYMERIZATION SUPERVISOR in room to assist with vitals and I/O's. Pt with HOB elevated, resting now with eyes closed, NC in place. No further needs at this time.
--- NOTE | 2021-04-15 19:05 | NUR ---
SHIFT REPORT RECEIVED FROM DAYSHIFT SAMEER YEBOAH AT BEDSIDE, pt RESTING QUIETLY IN BED, 2LNC IN PLACE. O2 SATS SUSTAINING UPPER 90'S, HR 68. NO DISTRESS NOTED, BED ALARM REMAINS ON FOR SAFETY. CALL LIGHT ALSO IN REACH.
--- NOTE | 2021-04-15 21:45 | NUR ---
VITALS DONE, PT ATTENDS ARE CHANGED, ICE WATER AND JUICE ARE PROVIDED, RN IN FOR MEDS, BOOSTED PT IN BED, ROOM TIDIED, WHITE BOARD UPDATED
--- NOTE | 2021-04-15 22:15 | NUR ---
pt YELLOWING OUT FOR HELP AND STATING "OH GOD, HELP ME...I CAN'T GET ANY AIR". pt APPEARING ANXIOUS, RESPIRATIONS SOMEWHAT LABORED, pt RINCON AND REQUIRES REDIRECTION AND POSITIVE ENCOURAGEMENT. SCHEDULED MEDS GIVEN, SEE EMAR. pt INITIALLY REPORTS PAIN IN CHEST, WHEN ASKED TO POINT TO PAIN, pt POINTS TO UPPER ABD/XIPHOID PROCESS, VERBALIZES BACK PAIN. PRN TYLENOL GIVEN, pt HAS HX OF DEMENTIA AND IS ONLY A/O TO SELF AT THIS TIME. INCONTINENT OF LARGE AMOUNT URINE, NEW ATTENDS IN PLACE. SPOT CHECKED, 02 SAT MID 80'S, pt SWITCHED TO 5LOXYMASK, pt QUICKLY CALMED DOWN AFTER PLACEMENT OF OXYMASK AND HOB ELEVATED. TITRATED DOWN SLOWLY TO 2LOXYMASK, pt RESTING NOW QUIETLY IN BED, AND STATES, "I'M TIRED AND READY FOR BED". LIGHTS TURNED OFF AND BED ALARM BACK ON FOR SAFETY. pt OVERALL APPEARS MORE CLAM AND LESS ANXIOUS, RESPIRATIONS RETURNING TO BASELINE. CALL LIGHT IN REACH.
--- NOTE | 2021-04-15 23:00 | NUR ---
pt AGAIN YELLING OUT FOR HELP, pt FOUND WITH OXYMASK OFF. 2LOXYMASK RESUMED AND O2 SAT SUSTAINING IN UPPER 90'S, ROLLER SKATES ASSEMBLER JELENA SITTING WITH pt UNTIL pt CAN FALL ASLEEP.
--- NOTE | 2021-04-15 23:15 | NUR ---
IN TO SIT WITH PT UNTIL FALL ASLEEP, REASSURING PT WHEN PT CALLS OUT, PT ALSO CALLING OUT IN HE SLEEP AT TIMES
--- NOTE | 2021-04-15 23:45 | NUR ---
RN IN RM NOW TO CHECK ON PT, BOOSTED PT, RM DARKEND AND TV OFF, WILL CONTINUE TO SIT WITH PT UNTIL PT IS COMPLETELY RESTING, PT CONTINUES TO CALL OUT IN SLEEP, PT TENDS TO LEAN TO LEFT SIDE, PILLOW UNDER PTs LEFT SHOULDER
--- NOTE | 2021-04-16 00:40 | NUR ---
pt HEARD CALLING OUT, pt EASILY REDIRECTED AND REORINETED TO TIME AND PLACE, 2LOXYMASK REMAINS IN PLACE, O2 SAT UPPER 90'S, HR WNL. pt BOOSTED IN BED WITH HELP FROM DANA BOWLES, pt VERY [place] AND RESPONDS WITH "URI MELE". pt NOW RESTING QUIETLY IN BED WITH EYES CLOSED. NO DISTRESS NOTED, WILL MONITOR FOR CHANGES. BED ALARM ON FOR SAFETY.
--- NOTE | 2021-04-16 00:48 | NUR ---
SPOKE TO CHRISTINA FROM LAB. PER CHRISTINA, URINE COLLECTED FOR ORDERED UA ON 04/15/21 CAN BE USED FOR URINE CULTURE. NO NEED TO COLLECT ADDITIONAL SAMPLE. CHRISTINA IN LAB TO UPDATE ORDER.
--- NOTE | 2021-04-16 01:09 | NUR ---
pt IN BED AND LEANING TO LEFT SIDE, BOOSTED IN BED WITH HELP FROM SAMEER LOPEZ. 2LOXYMASK IN PLACE, RR 20-22. CHEEKS FLUSHED, NO CHANGE SINCE START OF SHIFT. SCANT FINE CRACKLES TO RIGHT UPPER LOBE, DIMINISHED IN REMAINING LOBES. HOB ELEVATED TO EASE BREATHING. pt NOW RESTING QUIETLY IN BED WITH EYES CLOSED. CALL LIGHT IN REACH, BED ALARM ON.
--- NOTE | 2021-04-16 02:45 | NUR ---
pt AWOKE FROM BED ALARM IN ANOTHER ROOM. DANA BOWLES ASSISTED WITH URINAL TO VOID, pt REPOSITIONED AND BOOSTED IN BED. pt ATTEMPTS TO HELP WITH REPOSITIONING, VERY [place]. DOES NOT TOLERATE LAYING SUPINE VERY WELL, GETS ANXIOUS AND SOB. PER pt REQUEST, OXYMASK SWITCHED TO NC AND TITRATED UP TO 4L WHILE LAYING SUPINE. HR BRIEFLY UP TO 120. AFTER pt WAS REPOSTIONED AND BOOSTED WITH HOB ELEVATED, HR QUICKLY RETURNED WNL. O2 TITRATED BACK TO BASELINE 2LNC. CPOX REMAINS IN PLACE, O2 SAT LOW 90'S. CALL LIGHT IN REACH AND BED ALARM ON.
--- NOTE | 2021-04-16 06:50 | NUR ---
VSS, 2LNC IN PLACE. DAILY WEIGHT AND I&OS ALSO DONE. BED ALARM ON AND CALL LIGHT IN REACH. pt RESTING QUIETLY IN BED, RR EVEN AND UNLABORED.
--- NOTE | 2021-04-16 07:20 | NUR ---
Report received from Nora ESTRELLA, pt resting in bed with eyes closed, breathing even and unlabored. 2L O2 NC in place.
--- NOTE | 2021-04-16 09:40 | NUR ---
Scheduled medications administered and IV ABX infusing. Pt transfers to chair from BSC and demonstrating anxiety, reassured verbally. Pt assisted with breakfast. Linens changed. DANA Ewing in room to assist. Call light in reach, pt verbalizes understanding of using button to call for nurses
--- NOTE | 2021-04-16 10:29 | NUR ---
PATIENT UP TO BSC THEN TO CHAIR FOR BREAKFAST, 2PA FWW. PATIENT GOT VERY ANXIOUS WHEN MOVING AND ON BSC. PATIENT NOW IN CHAIR, WARM BLANKETS GIVEN. PATIENT IS NOW CALM AND RELAXING. VITALS AND I&O'S CHARTED. PARTIAL BED BATH GIVEN. CALL LIGHT IN REACH. NO FURTHER NEEDS AT THIS TIME.
--- NOTE | 2021-04-16 13:14 | NUR ---
HEARD PATIENT YELLING FROM ROOM. WENT IN TO CHECK ON PATIENT, HE WANTED TO GO TO SLEEP, PUT HIS FEET UP AND GAVE HIM WARM BLANKETS. VITALS AND I&O'S CHARTED. PATIENT IS RESTING WITH EYES CLOSED AT THIS TIME. CALL LIGHT IN REACH. NO FURTHER NEEDS AT THIS TIME.
--- NOTE | 2021-04-16 13:30 | NUR ---
Scheduled meds administered. Pt sitting up in chair states "doing good, just trying to rest". Breathing unlabored and even, 2L NC o2 in place.
[2021-04-16] MEDS ORDERED: QUETIAPINE FUMA25 MG PO (13:37)
[2021-04-16] MEDS ORDERED: LASIX40 MG PO (13:38)
--- NOTE | 2021-04-16 13:40 | NUR ---
CALL MADE TO [facility] TO DISCUSS DISCHARGE. NURSE WOULD LIKE TO CALL ADMINISTRATION ABOUT RECEIVING PT BACK. WILL CALL ME BACK.
--- NOTE | 2021-04-16 15:04 | NUR ---
CALL MADE TO [facility] PT DISCHARGE. FACILITY AGREES TO RECEIVE PT BACK.
--- NOTE | 2021-04-16 15:14 | NUR ---
2PA PATIENT TO BSC FOR BM AND VOID. DANA AGRAWAL NOTIFIED PATIENT WILL BE TRANSFERRING BACK TO [facility] TODAY. PATIENT WILL BE LEAVING WITH A CLEAN HOSPITAL GOWN ON, HE HAS NO CLOTHES IN HIS BELONGINGS BAG. PATIENT SITTING IN CHAIR WAITING FOR TRANSPORT
--- NOTE | 2021-04-16 15:27 | NUR ---
Rounded on patient, resting in chair watching TV. In good spirits, states thankful for staff and has no needs. On 2l o2, spo2 98%. Call light in reach
--- NOTE | 2021-04-16 17:03 | NUR ---
Pt discharged to [facility] via Wheelchair van with belongings in hand. Pt on 2L O2 via portable O2 tank, tolerating well. IV's removed WNL, VSS. Discharge packet sent to [facility] and report called, all questions answered, this RN addressed patient's status and needs when returning home.
== END 2021-04-16 16:44 ==
LOC: ED 00:50 → CCU 00:52 → MS 00:52
PROVIDERS: ADMIT Internal Medicine; ATTEND Internal Medicine
DX: I11.0 Hypertensive heart disease with heart failure (principal); I50.23 Acute on chronic systolic (congestive) heart failure; J44.9 Chronic obstructive pulmonary disease, unspecified; I48.20 Chronic atrial fibrillation, unspecified; E78.5 Hyperlipidemia, unspecified; E03.9 Hypothyroidism, unspecified; G30.9 Alzheimer's disease, unspecified; F02.80 Dementia in other diseases classified elsewhere, unspecified severity, without behavioral disturbance, psychotic disturbance, mood disturbance, and anxiety; Z20.822 Contact with and (suspected) exposure to COVID-19; R50.9 Fever, unspecified; D64.9 Anemia, unspecified; Z86.16 Personal history of COVID-19; Z95.0 Presence of cardiac pacemaker; Z79.01 Long term (current) use of anticoagulants
CPT/HCPCS: 71045; 80048; 80053; 81001; 83605; 85025; 85610; 85651; 93005; 93010; 94640; 94667; 94668; 94760; 96374; 99285-25; G0378; J0696; J1940; U0003